=== PATIENT | male | born 1955 | race Caucasian/White ===

== ENCOUNTER → 2016-08-11 | Outpatient (CLI) | payer OTHER ==
[~2016-08-11] MED LIST: ACCU; AMLO-114 PO; ATEN50TA8 PO; Aspirin PO; CALC1CAP36 PO; DOCU-94 PO; ESCI10TA17 PO; FRRS300 PO; FURO40TA3 PO; HMLI7525 SC; HYDR-4717 PO; HYDR100T12 PO; INSDGI SC; INSDGIPEN SC; INSU100I2 SC; INSU1MIS SC; LCTXP PO; LISI40TA PO; LVQ250 PO; METO1TAB31 PO; METR500T PO; MRLP17X PO; NIVO1INJ IV; NVLGIPEN SC; OXYC-164 PO; OXYC-57 PO; PRD20 PO; PRD50 PO; PRED-301 PO; SENN-65 PO; SIMV20TA2 PO; SODI650T8 PO; SUNI37.5 PO; TERA5CAP PO; TPRSR/100 PO; TYLENOL PO; test strips EXT
[2016-08-11 14:38] LABS: ESTIMATED AVERAGE GLUCOSE 128 mg/dl; HA1C FLAG Normal (Normal)
== END | disposition home or self-care (01) ==
LOC: C.LAB1850 13:14
PROVIDERS: ATTEND Internal Medicine Endocrinology, Diabetes & Metabolism
DX: E11.9 Type 2 diabetes mellitus without complications (principal)

== ENCOUNTER → 2016-08-29 | Outpatient (CLI) | payer OTHER ==
--- NOTE | 2016-08-29 17:55 | ECHOCARDIOGRAM REPORT ---
*NOTICE TO RECEIVING REPUBLICAN AGENCY This information is strictly Confidential and protected under [place] law. [place] law prohibits you from making any further disclosure of this information unless further disclosure is expressly permitted by the written consent of the person to whom it pertains or is authorized by law. A general authorization for the release of medical or other information is not sufficient for this purpose. Hospital accepts no responsibility if the information is made available to any other person, INCLUDING THE PATIENT. Interpretation Summary * Name: CHANO ANDERSON Study Date: 08/29/2016 02:44 PM BP: 164/100 mmHg * Patient Location: [facility] HR: 56 * : 1955 (M/d/yyyy) Gender: Male Height: 70 in * Age: 60 yrs Ethnicity: [place] Weight: 173 lb * Ordering Physician: Hunter Dao * Referring Physician: Hunter Dao PAngel Hensley * Performed By: Giselle Gamez RDCS * * Reason For Study: Neoplasm * BSA: 2.0 m2 * Normal biventricular systolic function. * Mild concentric left ventricular hypertrophy. * Normal chamber dimensions. * Trace mitral and tricuspid regurgitation. * -- Conclusions -- * Aortic valve sclerosis mild, without significant aortic valvular stenosis. Procedure Details * A complete two-dimensional transthoracic echocardiogram was performed (2D, M-mode, Doppler and color flow Doppler). Left Ventricle * The left ventricle is normal in size. * There is mild concentric left ventricular hypertrophy. * Ejection Fraction = 60-65%. * Left ventricular systolic function is normal. * The left ventricular wall motion is normal. Right Ventricle * The right ventricle is normal in size and function. Atria * The left atrial size is normal. * Right atrial size is normal. * No ASD detected; PFO is not assessed. Mitral Valve * The mitral valve is normal. * There is no mitral valve stenosis. * There is trace mitral regurgitation. Tricuspid Valve * The tricuspid valve is normal. * There is no tricuspid stenosis. * There is trace tricuspid regurgitation. Aortic Valve * The aortic valve is trileaflet. * The aortic valve opens well. * Aortic valve sclerosis mild, without significant aortic valvular stenosis. * No aortic regurgitation is present. Pulmonic Valve * The pulmonic valve is not well seen, but is grossly normal. * There is no pulmonic valvular stenosis. * There is no pulmonic valvular regurgitation. Great Vessels * The aortic root is normal size. * The aortic root and proximal ascending aorta are normal sized. Pericardium/Pleural * There is no pericardial effusion. Great Vessels * Normal inferior vena cava diameter and respiratory variation suggests normal central venous pressure. MMode 2D Measurements and Calculations IVSd 1.3 cm IVSs 1.4 cm LVIDd 4.6 cm LVIDs 3.1 cm LVPWd 1.3 cm LVPWs 0.87 cm IVS/LVPW 0.98 FS 32.4 % EDV(Teich) 95.5 ml ESV(Teich) 37.4 ml EF(Teich) 60.8 % EDV(cubed) 95.0 ml ESV(cubed) 29.3 ml EF(cubed) 69.1 % % IVS thick 10.8 % % LVPW thick -33.54 % LV mass(C)d 228.0 grams LV mass(C)dI 116.2 grams/m\S\2 LV mass(C)s 106.3 grams LV mass(C)sI 54.1 grams/m\S\2 SV(Teich) 58.1 ml SI(Teich) 29.6 ml/m\S\2 SV(cubed) 65.7 ml SI(cubed) 33.5 ml/m\S\2 Ao root diam 2.6 cm Ao root area 5.4 cm\S\2 ACS 2.0 cm LA dimension 3.1 cm LA/Ao 1.2 LVAd ap4 29.7 cm\S\2 LVLd ap4 8.5 cm EDV(MOD-sp4) 85.2 ml EDV(sp4-el) 88.4 ml LVAs ap4 15.9 cm\S\2 LVLs ap4 7.1 cm ESV(MOD-sp4) 29.5 ml ESV(sp4-el) 30.3 ml EF(MOD-sp4) 65.4 % EF(sp4-el) 65.8 % LVAd ap2 29.5 cm\S\2 LVLd ap2 8.6 cm EDV(MOD-sp2) 87.5 ml EDV(sp2-el) 85.6 ml LVAs ap2 17.7 cm\S\2 LVLs ap2 7.1 cm ESV(MOD-sp2) 39.9 ml ESV(sp2-el) 37.7 ml EF(MOD-sp2) 54.5 % EF(sp2-el) 55.9 % LVLd %diff 2.1 % EDV(MOD-bp) 86.7 ml LVLs %diff -0.77 % ESV(MOD-bp) 34.2 ml EF(MOD-bp) 60.6 % SV(MOD-sp4) 55.7 ml SI(MOD-sp4) 28.4 ml/m\S\2 SV(MOD-sp2) 47.7 ml SI(MOD-sp2) 24.3 ml/m\S\2 SV(MOD-bp) 52.5 ml SI(MOD-bp) 26.8 ml/m\S\2 SV(sp4-el) 58.2 ml SI(sp4-el) 29.6 ml/m\S\2 SV(sp2-el) 47.9 ml SI(sp2-el) 24.4 ml/m\S\2 Doppler Measurements and Calculations MV E max rafael 84.4 cm/sec MV A max rafael 72.3 cm/sec MV E/A 1.2 MV dec time 0.37 sec Ao V2 max 164.2 cm/sec Ao max PG 10.8 mmHg Ao max PG (full) 6.2 mmHg LV V1 max PG 4.6 mmHg LV V1 max 107.2 cm/sec PA V2 max 126.0 cm/sec PA max PG 6.4 mmHg
== END | disposition home or self-care (01) ==
LOC: C.CPL 14:34
PROVIDERS: ATTEND Internal Medicine Hematology & Oncology
DX: C64.2 Malignant neoplasm of left kidney, except renal pelvis (principal)

== ENCOUNTER → 2016-08-31 | Outpatient (CLI) | payer OTHER ==
--- NOTE | 2016-08-31 12:40 | DIAGNOSTIC IMAGING REPORT ---
CT SCAN OF THE CHEST WITHOUT IV CONTRAST CLINICAL HISTORY: Renal cell carcinoma. COMPARISON STUDY: PET/CT dated 10/26/2015. CT scan of the chest dated 04/18/2016 and 09/09/2015. TECHNIQUE: CT scan of the chest was performed from the thoracic inlet to the upper abdomen. Images are reviewed in the axial, sagittal, and coronal planes. IV contrast was not administered as per the referring clinician. Note that the examination is suboptimal without IV contrast. Automated dose control exposure was utilized. CT DOSE: 1335.50 mGycm FINDINGS: Thyroid: Imaged portions of the thyroid gland are normal in size and attenuation. Thoracic aorta: There is mild atherosclerotic calcification of the thoracic aorta, which is normal in caliber. The aortic arch demonstrates 4-vessel variant anatomy. Heart: The heart is normal in size and configuration, and without pericardial effusion. The pulmonary trunk is normal in caliber. Lungs and pleural spaces: There are mild emphysematous changes. There are small right and trace left pleural effusions. These have minimally increased from 04/18/2016. There are scattered tiny calcified granulomas. No concerning pulmonary lesion is seen. There is no airspace consolidation to indicate pneumonia. Minimal scarring is noted at the right lung base. The trachea and central airways appear clear. Mediastinum: There is no mediastinal lymphadenopathy. Radha: Not well assessed without IV contrast. Axillae: There is no axillary lymphadenopathy. Upper abdomen: There is a small hiatal hernia. The left kidney is surgically absent. A 2.7 cm exophytic cyst arises from the right upper pole. See report of abdominal CT performed concurrently for detailed intra-abdominal findings. Bony thorax: No definite lytic or blastic lesions are identified. A 7 mm benign-appearing lucency in the right anterior 6th rib seen on image #190 is unchanged back to 08/1715 and is of indeterminant but doubtful significance. IMPRESSION: 1. There is no evidence of intrathoracic metastatic disease. 2. Mild emphysema. 3. Small right and trace left pleural effusions. These have minimally increased in size from 04/18/2016. 3. No airspace consolidation is identified typical for pneumonia. 4. Additional findings as above. Electronically signed by: Dieter Jensen M.D. 08/31/2016 12:39 PM Dictated Date/Time: 08/31/2016 12:31 PM
--- NOTE | 2016-09-01 07:35 | DIAGNOSTIC IMAGING REPORT ---
CT OF THE ABDOMEN AND PELVIS WITH ORAL CONTRAST CLINICAL HISTORY: Renal cell carcinoma. TECHNIQUE: Axial images of the abdomen and pelvis were obtained without IV contrast. Oral contrast was administered. COMPARISON STUDY: CT of the abdomen and pelvis April 18, 2016 and PET/CT May 02, 2016. FINDINGS: The chest CT will be reported separately. Evaluation of the abdomen and pelvis is suboptimal on this unenhanced exam. Unenhanced images of liver, spleen, right adrenal gland and pancreas are unremarkable. The left kidney is surgically absent. A few retrocrural nodules are noted. These include a 1.4 cm right retrocrural nodule located at the level of the right adrenal gland shown on image 30. This is similar to PET/CT of May 02, 2016. A 1 cm left retrocrural lymph node located superiorly is noted. This is either stable or slightly diminished since prior exam. A 1 cm left para-aortic nodule shown image 39 is similar to prior study. An aortocaval lymph node measuring 1 cm shown image 40 has slightly increased in size. Multiple right renal lesions are again noted. These are suboptimally assessed on this unenhanced exam. A 4 cm intermediate attenuation lesion within the mid to lower pole of the right kidney remains indeterminate. There is right perinephric infiltration. There is left colon diverticulosis without evidence for acute diverticulitis. No suspicious osseous lesions are present with there is no evidence for a bowel obstruction. IMPRESSION: 1. Slight increase in size of a small aortocaval lymph node which is suggestive of kimmie spread of disease. 2. Redemonstration of several retrocrural metastases. These are either stable or slightly decreased in size since prior exam of April 18, 2016. 3. No change in the 4 cm right renal lesion which remains indeterminate and may reflect a renal cell carcinoma. Electronically signed by: Lei Gan M.D. 09/01/2016 7:34 AM Dictated Date/Time: 08/31/2016 1:26 PM
== END | disposition home or self-care (01) ==
LOC: C.CTS 10:58
PROVIDERS: ATTEND Internal Medicine Hematology & Oncology
DX: C64.2 Malignant neoplasm of left kidney, except renal pelvis (principal); N28.9 Disorder of kidney and ureter, unspecified

== ENCOUNTER → 2016-09-14 | Outpatient (CLI) | payer OTHER ==
[2016-09-14 15:33] LABS: BLOOD UREA NITROGEN 34 mg/dl (7-18); CALCIUM 8.6 mg/dl (8.5-10.1); CARBON DIOXIDE 29 mmol/L (21-32); CHLORIDE 103 mmol/L (98-107); GLUCOSE 96 mg/dl (70-99); PHOSPHORUS 3.1 mg/dl (2.5-4.9); POTASSIUM 3.5 mmol/L (3.5-5.1); SODIUM 141 mmol/L (136-145)
== END | disposition home or self-care (01) ==
LOC: C.LAB 16:32
PROVIDERS: ATTEND Internal Medicine Nephrology
DX: N18.3 Chronic kidney disease, stage 3 (moderate) (principal); C64.2 Malignant neoplasm of left kidney, except renal pelvis

== ENCOUNTER → 2016-09-22 | Outpatient (CLI) | payer OTHER ==
[2016-09-22 08:47] LABS: PATIENT HEIGHT 177.8 cm
== END | disposition home or self-care (01) ==
LOC: C.LAB 09-21 17:43
PROVIDERS: ATTEND Internal Medicine Nephrology
DX: R80.9 Proteinuria, unspecified (principal)

== ENCOUNTER 2016-10-27 10:05 | Inpatient (IN) | payer OTHER ==
[~2016-10-27] VITALS: Ht 177.8 cm; Wt 81.0 kg
[~2016-10-27 10:05] MED LIST changes: -ACCU; -CALC1CAP36 PO; -ESCI10TA17 PO; -FRRS300 PO; -FURO40TA3 PO; -HYDR-4717 PO; -HYDR100T12 PO; -INSDGIPEN SC; -INSU100I2 SC; -INSU1MIS SC; -LCTXP PO; -LISI40TA PO; -LVQ250 PO; -METO1TAB31 PO; -METR500T PO; -MRLP17X PO; -NIVO1INJ IV; -NVLGIPEN SC; -OXYC-164 PO; -OXYC-57 PO; -PRD20 PO; -PRD50 PO; -PRED-301 PO; -SENN-65 PO; -SODI650T8 PO; -SUNI37.5 PO; -TPRSR/100 PO; -test strips EXT
--- NOTE | 2016-10-27 11:34 | DIAGNOSTIC IMAGING REPORT ---
CHEST 2 VIEWS ROUTINE CLINICAL HISTORY: Shortness of breath. COMPARISON STUDY: Chest CT August 2016. FINDINGS: Lung volumes are normal. Linear right lower lung opacity favors atelectasis. There is no evidence of pulmonary edema. Cardiac size is normal. Mediastinal contours are normal. IMPRESSION: 1. No acute cardiopulmonary findings. 2. Linear right lower lobe opacity which favors atelectasis. Electronically signed by: Lei Gan M.D. 10/27/2016 11:32 AM Dictated Date/Time: 10/27/2016 11:28 AM
[2016-10-27 11:42] LABS: BASO % 0.2 %; BASO ABS # 0.01 K/uL (0-0.2); COMPLETE YES; EOS % 2.5 %; HEMATOCRIT 31.5 % (42-52); IG% 0.2 %; LYMPH % 28.1 %; LYMPH ABS # 1.24 K/uL (1.2-3.4); MEAN CELL VOLUME 92.1 fL (80-100); MEAN CORPUSCULAR HGB CONC 33.7 g/dl (32-36); MEAN PLATELET VOLUME 10.2 fL (7.4-10.4); MONO % 11.8 %; NEUT % 57.2 %; PLATELET COUNT 145 K/uL (130-400); RED BLOOD COUNT 3.42 M/uL (4.7-6.1); WHITE BLOOD COUNT 4.42 K/uL (4.8-10.8)
[2016-10-27 11:42] LABS: POINT OF CARE PRO-BNP 373 pg/ml (0-900)
[2016-10-27 11:56] LABS: INR 0.9 (0.9-1.1); PARTIAL THROMBOPLASTIN RATIO 0.9; PROTHROMBIN TIME (PATIENT) 10.1 SECONDS (9.0-12.0)
[2016-10-27 11:57] LABS: ALT/SGPT 16 U/L (12-78); BLOOD UREA NITROGEN 41 mg/dl (7-18); BUN/CREATININE RATIO 13.3 (10-20); CALCIUM 8.5 mg/dl (8.5-10.1); CARBON DIOXIDE 28 mmol/L (21-32); CHLORIDE 107 mmol/L (98-107); GLUCOSE 171 mg/dl (70-99); POTASSIUM 3.4 mmol/L (3.5-5.1); SODIUM 143 mmol/L (136-145)
[2016-10-27 12:00] LABS: ALKALINE PHOSPHATASE 65 U/L (45-117); AST/SGOT 15 U/L (15-37)
[2016-10-27] MEDS ORDERED: INSU100I2 SC (12:33)
[2016-10-27] MEDS ORDERED: FURO40TA3 PO (12:33)
[2016-10-27] MEDS ORDERED: ESCI10TA17 PO (12:33)
[2016-10-27] MEDS ORDERED: LISI40TA PO (12:33)
[2016-10-27] MEDS ORDERED: HYDR-4717 PO (12:33)
[2016-10-27] MEDS ORDERED: SUNI37.5 PO (13:05)
--- NOTE | 2016-10-27 14:27 | DIAGNOSTIC IMAGING REPORT ---
BILATERAL LOWER EXTREMITY VENOUS DOPPLER CLINICAL HISTORY: Shortness of breath. Lower extremity swelling. COMPARISON STUDY: No previous studies for comparison. TECHNIQUE: Sonography of the deep venous system of the bilateral lower extremities was performed. Compression and augmentation were evaluated. FINDINGS: The bilateral common femoral, superficial femoral and popliteal veins were compressible. Augmentation was normal. Flow was shown within the deep calf vessels. IMPRESSION: No evidence of deep venous thrombus within the bilateral lower extremities. Electronically signed by: Lei Gan M.D. 10/27/2016 2:24 PM Dictated Date/Time: 10/27/2016 2:24 PM
--- NOTE | 2016-10-27 15:18 | EMERGENCY ROOM VISIT NOTE ---
History Report prepared by Aissatou: Marianna Nieto Under the Supervision of: Dr. Greyson Murphy M.D. First contact with patient: 10:41 Chief Complaint: SHORTNESS OF BREATH Stated Complaint: SOB, SUDDEN WEIGHT GAIN, LOW BP Nursing Triage Summary: Pt currently on chemo, states he has one kidney and it's only "20-30%." Patient believes he is starting to feel up with fluid. History of Present Illness The patient is a 60 year old male who presents to the Emergency Room with complaints of shortness of breath. The patient states she's been short of breath since over a year ago when he was diagnosed with renal cell carcinoma. He says [place] worse over the past 2 days and he called his doctor and was instructed to come to the emergency department. He denies any current chest pain but states that he has had some chest pain intermittently for the past several months. The last time he had it was about a week ago. He describes it as a pain on the left side but otherwise cannot give any further descriptors. He did have an echocardiogram and EKG in August because of his chest pain. He has noticed that he has gained about 7 pounds over the past 5 days. He states that he gets swelling to the abdomen and face and a little bit in the legs. About a month ago his Lasix was doubled by his physician. He does state that he has only one functioning kidney. He denies any fever, cough or recent illness. He does complain of chronic abdominal pain since he started chemotherapy and has been diagnosed with possible pancreatitis as his lipase has been elevated in the past. He denies any history of LA or CHF. Source of History: patient Onset: over a year ago, worse past 2 days Position: other (global) Quality: other (shortness of breath) Timing: worsening Associated Symptoms: + abdominal pain (chronic), + chest pain (intermittent , most recently a week ago), No cough, No fevers Note: Other symptoms: swelling to face and abdomen, weight gain Review of Systems I did review 10 or more systems which are negative unless otherwise indicated on the chart or HPI. Past Medical & Surgical Medical Problems: (1) Renal mass, left Family History No pertinent family history stated. Social History Smoking Status: Never Smoker Current/Historical Medications Scheduled Amlodipine (Norvasc), 10 MG PO DAILY Atenolol (Tenormin), 50 MG PO DAILY Docusate Sodium (Colace), 1 CAP PO BID Escitalopram (Lexapro), 10 MG PO DAILY Furosemide (Lasix), 40 MG PO BID Hydralazine Hcl (Apresoline), 50 MG PO TID Insulin Glargine (Lantus), 15 SC QPM Insulin Lispro (Human) (Humalog Kwikpen), 10-20 SC AFTER DINNER Lisinopril (Prinivil), 40 MG PO QAM Simvastatin (Zocor), 20 MG PO QPM Sunitinib Malate (Sutent), 1 CAP PO DAILY Terazosin (Hytrin), 5 MG PO HS [Aspirin], 81 MG PO DAILY Scheduled PRN [Tylenol #4], 1 TAB PO q4-6 hours PRN for Pain Allergies Coded Allergies: Iodinated Diagnostic Agents (Verified Allergy, Unknown, oil based, severe headaches, 10/27/16) EVENT OCCURED IN 1971, PT STATES HE HAS HAD 3 DIFFERENT WATER BASED IVP DYES WITH NO ISSUE Physical Exam Vital Signs Date Time Temp Pulse Resp B/P Pulse Ox O2 Delivery O2 Flow Rate FiO2 10/27/16 12:44 62 16 131/66 96 Room Air 10/27/16 10:30 63 10/27/16 10:09 36.8 72 20 120/64 97 Room Air Physical Exam Constitutional: Vital signs reviewed. Eyes: Pupils are equal round reactive to light. Conjunctiva are noninjected. ENT: Pharynx is clear without erythema or exudate. Mucous membranes are moist. Neck supple without meningeal signs. Respiratory: Clear to auscultation bilaterally. Breath sounds are equal bilaterally. No rales. Cardiovascular: Regular rate and rhythm. No rubs or gallops. GI: Soft, nondistended and nontender. Bowel sounds are present. Musculoskeletal: Minimal ankle edema. No lower extremity tenderness. Integumentary: No cyanosis. Neurological: The patient is awake and alert. No focal deficits. Psychiatric: Normal affect. Medical Decision & Procedures ER Provider Diagnostic Interpretation: Radiology results as stated below per my review and the radiologist's interpretation: CHEST 2 VIEWS ROUTINE CLINICAL HISTORY: Shortness of breath. COMPARISON STUDY: Chest CT August 2016. FINDINGS: Lung volumes are normal. Linear right lower lung opacity favors atelectasis. There is no evidence of pulmonary edema. Cardiac size is normal. Mediastinal contours are normal. IMPRESSION: 1. No acute cardiopulmonary findings. 2. Linear right lower lobe opacity which favors atelectasis. Electronically signed by: Lei Gan M.D. 10/27/2016 11:32 AM Dictated Date/Time: 10/27/2016 11:28 AM BILATERAL LOWER EXTREMITY VENOUS DOPPLER CLINICAL HISTORY: Shortness of breath. Lower extremity swelling. COMPARISON STUDY: No previous studies for comparison. TECHNIQUE: Sonography of the deep venous system of the bilateral lower extremities was performed. Compression and augmentation were evaluated. FINDINGS: The bilateral common femoral, superficial femoral and popliteal veins were compressible. Augmentation was normal. Flow was shown within the deep calf vessels. IMPRESSION: No evidence of deep venous thrombus within the bilateral lower extremities. Electronically signed by: Lei Gan M.D. 10/27/2016 2:24 PM Dictated Date/Time: 10/27/2016 2:24 PM Laboratory Results 10/27/16 11:10 Red Blood Count 3.42, Mean Corpuscular Volume 92.1, Mean Corpuscular Hemoglobin 31.0, Mean Corpuscular Hemoglobin Concent 33.7, Mean Platelet Volume 10.2, Neutrophils (%) (Auto) 57.2, Lymphocytes (%) (Auto) 28.1, Monocytes (%) (Auto) 11.8, Eosinophils (%) (Auto) 2.5, Basophils (%) (Auto) 0.2, Neutrophils # (Auto ) 2.53, Lymphocytes # (Auto) 1.24, Monocytes # (Auto) 0.52, Eosinophils # (Auto ) 0.11, Basophils # (Auto) 0.01 10/27/16 11:10 Test 10/27/16 11:10 10/27/16 11:18 White Blood Count 4.42 K/uL (4.8-10.8) Red Blood Count 3.42 M/uL (4.7-6.1) Hemoglobin 10.6 g/dL (14.0-18.0) Hematocrit 31.5 % (42-52) Mean Corpuscular Volume 92.1 fL (80-100) Mean Corpuscular Hemoglobin 31.0 pg (25-34) Mean Corpuscular Hemoglobin Concent 33.7 g/dl (32-36) Platelet Count 145 K/uL (130-400) Mean Platelet Volume 10.2 fL (7.4-10.4) Neutrophils (%) (Auto) 57.2 % Lymphocytes (%) (Auto) 28.1 % Monocytes (%) (Auto) 11.8 % Eosinophils (%) (Auto) 2.5 % Basophils (%) (Auto) 0.2 % Neutrophils # (Auto) 2.53 K/uL (1.4-6.5) Lymphocytes # (Auto) 1.24 K/uL (1.2-3.4) Monocytes # (Auto) 0.52 K/uL (0.11-0.59) Eosinophils # (Auto) 0.11 K/uL (0-0.5) Basophils # (Auto) 0.01 K/uL (0-0.2) RDW Standard Deviation 50.9 fL (36.4-46.3) RDW Coefficient of Variation 15.0 % (11.5-14.5) Immature Granulocyte % (Auto) 0.2 % Immature Granulocyte # (Auto) 0.01 K/uL (0.00-0.02) Prothrombin Time 10.1 SECONDS (9.0-12.0) Prothromb Time International Ratio 0.9 (0.9-1.1) Activated Partial Thromboplast Time 24.6 SECONDS (21.0-31.0) Partial Thromboplastin Ratio 0.9 Anion Gap 8.0 mmol/L (3-11) Est Creatinine Clear Calc Drug Dose 25.5 ml/min Estimated GFR () 23.7 Estimated GFR (Non- 20.5 BUN/Creatinine Ratio 13.3 (10-20) Calcium Level 8.5 mg/dl (8.5-10.1) Total Bilirubin 0.3 mg/dl (0.2-1) Direct Bilirubin < 0.1 mg/dl (0-0.2) Aspartate Amino Transf (AST/SGOT) 15 U/L (15-37) Alanine Aminotransferase (ALT/SGPT) 16 U/L (12-78) Alkaline Phosphatase 65 U/L (45-117) Total Protein 5.9 gm/dl (6.4-8.2) Albumin 3.0 gm/dl (3.4-5.0) Lipase 169 U/L (73-393) Bedside D-Dimer > 450 ng/mlFEU (0-450) Bedside Troponin I 0.000 ng/ml (0-0.045) GH-Dlw-Q-Type Natriuretic Peptide 373 pg/ml (0-900) Laboratory results as reviewed by me. ECG Indication: chest pain, SOB/dyspnea Rate (beats per minute): 67 Rhythm: normal sinus Findings: PVC, T-wave inversion (Lateral) ED Course 1045: The patient was evaluated in room B8. A complete history and physical exam was performed. 1241: I reassessed the patient and discussed test results with him. 1243: I attempted to talk to Dr. Dao and Dr. Douglas of Hematology/ Oncology, but neither are available. 1313: I discussed the case with Dr. Dao - Hematology/Oncology. He said that the weight gain is probably from the proteinuria. He was on Sutent but is off of it now. Dr. Dao said that the patient has never told him that he was short of breath. 1449: I discussed the case with Dr. Vikram Clifton Hospitalist. The patient will be evaluated for further management. 1505: I discussed test results with the patient and the need for hospitalization. He was in agreement. Medical Decision This is a 60-year-old male who presents with multiple complaints including shortness of breath and weight gain. Differential diagnosis includes CHF, pleural effusion, pneumonia, nephrotic syndrome, pulmonary embolism. I did perform a limited focused review of portions of the patient's old chart on the electronic medical record. The patient had an echocardiogram in August which showed normal left ventricular and right ventricular function with an EF of 60. He also had CTs of the chest and abdomen which demonstrated metastatic renal cell carcinoma. I did evaluate the patient as noted above. IV access was established. The patient was placed on a continuous director of cardiology service line. I did order and personally review the patient's 12-lead EKG and chest x-ray as described above. He does have some T-wave inversions on his 12-lead EKG. No prior EKGs available for comparison. He denies any current chest discomfort. There is no evidence of pneumonia. I did order and review the patient's blood work as noted in the electronic medical record. Troponin is negative. D-dimer is elevated. His creatinine is 3 which is his baseline. I did order a normal ultrasound of the legs to rule out DVT. I did review the images myself as well as the radiology report as described above. There is no evidence of DVT. I did discuss case with his oncologist. I did discuss the test results with the patient. I did recommend hospitalization for further workup of his symptoms including V/Q scanning as he has a prior history of pulmonary embolism. He has a elevated creatinine and so we could not do a CT scan of his chest. I did discuss the case with the hospitalist and nurse case manager. Consults Time Called: [phone] Consulting Physician: Dr. Dao - Hematology/Oncology Returned Call: [phone] I discussed the case with him. He said that the weight gain is probably from the proteinuria. He was on Sutent but is off of it now. Dr. Dao said that the patient has never told him that he was short of breath. Additional Consults: Time Called: [phone] Consulted Physician: Dr. Vikram Clifton Hospitalist Returned Call: [phone] Additional Comments: I discussed the case with her. The patient will be evaluated for further management. Impression Primary Impression: Acute dyspnea Additional Impressions: Chronic kidney disease Renal cell carcinoma Scribe Attestation The scribe's documentation has been prepared under my direct and personally reviewed by me in its entirety. I confirm that the note above accurately reflects all work, treatment, procedures, and medical decision making performed by me. Departure Information Dispostion Being Evaluated By Hospitalist Referrals Salvador Muller M.D. (PCP) Patient Instructions My [facility] Problem Qualifiers Additional Impressions: Chronic kidney disease Chronic kidney disease stage: unspecified stage Qualified Codes: N18.9 - Chronic kidney disease, unspecified Renal cell carcinoma Laterality: unspecified laterality Qualified Codes: C64.9 - Malignant neoplasm of unspecified kidney, except renal pelvis
[2016-10-27 15:59] VITALS: Ht 177.8 cm; Wt 81.0 kg
[2016-10-27] MEDS ORDERED: POTASSIUM CHLORIDE 10 MEQ TABCR PO STA (16:16)
[2016-10-27] MEDS ORDERED: ACETAMINOPHEN 325 MG TAB PO PRN (16:30)
[2016-10-27] MEDS ORDERED: DEXTROSE 50% 50 ML SYR IV PRN (16:30)
[2016-10-27] MEDS ORDERED: NITROGLYCERIN 0.4 MG SL PER TAB CHARGE SL PRN (16:30)
[2016-10-27] MEDS ORDERED: GLUCOSE 40% GEL 15 GM TUBE PO PRN (16:30)
[2016-10-27] MEDS ORDERED: GLUCAGON FOR INJ 1 MG VIAL SQ PRN (16:30)
[2016-10-27] MEDS ORDERED: GLUCOSE 10 TABS/TUBE PO PRN (16:30)
[2016-10-27] MEDS ORDERED: MoRPHine SULFATE 2 MG/ML CARP IV PRN (16:30)
[2016-10-27] MEDS ORDERED: ENOXAPARIN 1 MG/KG SQ SCH (16:30)
[2016-10-27] MEDS ORDERED: ONDANSETRON INJ 2 MG/ML 2 ML VIAL IV PRN (16:30)
[2016-10-27 17:14] VITALS: O2SAT 97
--- NOTE | 2016-10-27 17:33 | HISTORY & PHYSICAL EXAMINATION ---
DATE OF ADMISSION: 10/27/2016 ADMISSION HISTORY AND PHYSICAL CHIEF COMPLAINT: Shortness of breath. ADMITTING DIAGNOSIS: Possible pulmonary embolism. HISTORY OF PRESENT ILLNESS: Mr. Christy is a 60-year-old male who is currently being treated for metastatic renal cell carcinoma. His metastases have been continued with 3 lymph nodes and his abdomen has been kept at bay by a chemotherapeutic regimen by Dr. Dao of [facility]. The patient has had persistent shortness of breath for about 1 year since he was initially diagnosed with renal cell carcinoma, over that time he has had a most recent echocardiogram in August 2016, which was unremarkable. Over the last 2 days, the patient has had escalations of his shortness of breath where he was unable to perform activities of daily living at home without stopping to rest. The patient states that most recently has had this chemotherapy reduced because of concerns of side effects such as pancreatitis. The patient also feels he may be e getting some swelling in his face and abdomen which is usually a concern as he does only have one kidney and has chronic kidney disease. The patient states that his Lasix was doubled by Dr. Norwood. He does suffer from chronic proteinuria because of this chemotherapeutic regimen and his serum protein may reduce pressure causing peripheral swelling. He is currently resting comfortably. CT scan is precluded because of a creatinine being 3.1. The patient denies any recent concurrent chest pain, any recent upper respiratory infections. He has had no cough productive of any sputum. His body weight is gone up slightly. He feels he has gone up about 7 pounds in the last week. He is slated to have a VQ scan this evening. PAST MEDICAL HISTORY: For renal cell carcinoma; diabetes, on insulin; previous DVT and BPH. MEDICATIONS: Amlodipine 10 a day, atenolol 50 a day, Colace 1 tablet b.i.d., Lexapro 10 a day, Lasix now 40 b.i.d., hydralazine 50 t.i.d., Lantus insulin 15 at bedtime. He follows an insulin sliding scale with a carbo ratio of 1:7 this typically equates to 10-20 units with meals, lisinopril 40 a day, Zocor 20 a day, sutent 1 capsule daily, terazosin 5 a day, and aspirin 81 a day. SOCIAL HISTORY: Does not smoke or drink. He did have some exposure to secondhand smoke with his mother and his . FAMILY HISTORY: Positive for COPD and diabetes. REVIEW OF SYSTEMS: Ten systems are reviewed and are negative unless listed above. PHYSICAL EXAMINATION: VITAL SIGNS: Temperature 36.8, respiration rate is 19, heart rate 66, BP is 167/87, O2 sats 96% on room air. HEENT: PERRL, EOMI. Oropharynx clear. NECK: Without lymphadenopathy. Trachea is midline. HEART: Regular without murmurs. LUNGS: Clear without wheezes or crackles. SPINE: Nontender. He has got some mild left CVA angle tenderness. ABDOMEN: Normoactive bowel sounds, soft. He has got some minor left lower quadrant tenderness. EXTREMITIES: Without cyanosis, clubbing or edema. The face does not appear edematous plethoric or reddened. NEUROLOGICAL: He is awake, alert and appropriate. Cranial nerves II-XII are intact. Equal symmetrical strength and sensation in upper and lower extremities. SKIN: Without lesions, growths, bruises or bleeding. LABORATORY AND IMAGING DATA: He has a white count of 4.4, platelet count 145. BUN and creatinine are 41 and 3.1, glucose is 171. D-dimer is elevated to 450. Ultrasound of his legs were negative. Chest x-ray is negative, I reviewed this myself. EKG shows sinus rhythm without any acute ST or T-wave changes, some PVCs captured. Pending studies include a VQ scan. ASSESSMENT: A 60-year-old male here with metastatic renal cell carcinoma and previous thrombophilia with deep vein thrombosis. PLAN: Because the patient's increased risk of clot, we will institute Lovenox renal dosing at 1 mg/kg q. 72 hours. Will perform a VQ scan this evening. If this VQ scan is indeterminate, we may need to pursue a CT scan cautiously with renal oversight with his creatinine being such as renal cell does metastasize to the lungs then might be worthwhile to get a CT scan. We may also consider doing a noncontrast CT scan of the lungs. Regarding his diabetic care, will maintain his Lantus and sliding scale with a diabetic diet. Regarding his hypertension, will maintain amlodipine, Lasix b.i.d., atenolol 50 a day and Hytrin which is also used for BPH. Zestril 40 also. Because of his facial swelling, concern could be for vena caval clot. We will pursue an ultrasound of the inferior vena cava and an echocardiogram. Also the echocardiogram may tell if he is developing any cardiomyopathy from his medications. DVT prevention is Lovenox full dose therapy. Will continue the sutent with consult Dr. Dao for a possible further advice. If need be, Dr. Norwood is a counseling services director. He is scheduled to have a 24-hour urine protein test done in the future. MTDD
[2016-10-27] MEDS ORDERED: ENOXAPARIN 100 MG/1ML SYR SQ SCH (18:00)
--- NOTE | 2016-10-27 18:17 | DIAGNOSTIC IMAGING REPORT ---
NUCLEAR MEDICINE LUNG PERFUSION STUDY CLINICAL HISTORY: Shortness of breath. Hypertension. COMPARISON STUDY: Chest x-ray dated 10/27/2016 FINDINGS: The patient was ventilated with 33 mCi of technetium 99m DTPA aerosol. The patient was perfused utilizing 6.2 mCi of technetium 99m MAA. Due to a computer malfunction, the ventilation data was lost. This examination is interpreted as a perfusion only study. There is a very small perfusion defect visualized on the RPO image, likely corresponding to an area of right basilar atelectasis. No moderate or large perfusion defects are visualized. This examination is characterized as low probability for pulmonary embolism(less than 10% risk). If there is a strong clinical suspicion of the presence of pulmonary embolism, CT angiography of the chest should be considered in follow-up IMPRESSION: Perfusion only study due to a technical malfunction. Low probability of acute pulmonary embolism Electronically signed by: Isael Aaron M.D. 10/27/2016 6:15 PM Dictated Date/Time: 10/27/2016 6:11 PM
[2016-10-27 18:45] VITALS: BP 165/77; PULSE 71; TEMP 36.9; O2SAT 96
--- NOTE | 2016-10-27 18:53 | DIAGNOSTIC IMAGING REPORT ---
INFERIOR VENA CAVA ULTRASOUND CLINICAL HISTORY: Shortness of breath. Possible IVC thrombus. Renal cell carcinoma. COMPARISON STUDY: CT scan of the abdomen and pelvis dated August 31, 2016 FINDINGS: The IVC and iliac veins appeared patent as visualized. There are portions of the mid IVC and proximal iliac veins which were not visualized due to overlying bowel gas shadowing. IMPRESSION: No IVC or iliac vein thrombus was visualized Electronically signed by: Isael Aaron M.D. 10/27/2016 6:50 PM Dictated Date/Time: 10/27/2016 6:49 PM
[2016-10-27] MEDS: FUROSEMIDE 40 MG TAB PO SCH (19:52)
[2016-10-27 20:45] LABS: URINE APPEARANCE CLEAR (CLEAR); URINE BILIRUBIN NEG (NEG); URINE COLOR YELLOW; URINE EPITHELIAL CELL AUTO 0-5 /lpf (0-5); URINE NITRITE NEG (NEG); URINE SPECIFIC GRAVITY 1.013 (1.000-1.030); UROBILINOGEN NEG (NEG)
[2016-10-27] MEDS: AMLODIPINE BESYLATE 5 MG TAB PO SCH (20:45)
[2016-10-27] MEDS: SIMVASTATIN 20 MG TAB PO SCH (20:46)
[2016-10-27 20:47] LABS: MANUAL MICROSCOPIC REQUIRED? NO; REVIEW REQ? NO
[2016-10-27] MEDS: INSULIN GLARGINE SOLOSTAR 100 UNITS/ML 3 ML PEN SC SCH (20:47)
[2016-10-27] MEDS: INSULIN ASPART 100 UNITS/ML 3 ML PEN SC SCH (20:48)
[2016-10-27] MEDS: DOCUSATE SODIUM 100 MG CAP PO SCH (20:50)
[2016-10-27] MEDS: MoRPHine SULFATE 4 MG/ML 1 ML CARP\\VIAL IV PRN (22:17)
[2016-10-27 23:15] VITALS: BP 136/68; PULSE 63; TEMP 36.8; O2SAT 97
[2016-10-28 03:44] VITALS: BP 105/62; PULSE 61; TEMP 36.6; O2SAT 98
[2016-10-28] MEDS: MoRPHine SULFATE 4 MG/ML 1 ML CARP\\VIAL IV PRN ×2 (06:49→19:18)
[2016-10-28 07:42] VITALS: BP 127/67; PULSE 68; TEMP 36.9; O2SAT 97
[2016-10-28 07:48] LABS: HEMATOCRIT 29.9 % (42-52); MEAN CORPUSCULAR HEMOGLOBIN 31.4 pg (25-34); MEAN CORPUSCULAR HGB CONC 34.1 g/dl (32-36); MEAN PLATELET VOLUME 10.5 fL (7.4-10.4); PLATELET COUNT 141 K/uL (130-400); RED BLOOD COUNT 3.25 M/uL (4.7-6.1)
[2016-10-28 08:15] LABS: BLOOD UREA NITROGEN 43 mg/dl (7-18); BUN/CREATININE RATIO 13.8 (10-20); CALCIUM 8.1 mg/dl (8.5-10.1); CARBON DIOXIDE 29 mmol/L (21-32); CHLORIDE 106 mmol/L (98-107); GLUCOSE 84 mg/dl (70-99); POTASSIUM 3.1 mmol/L (3.5-5.1); SODIUM 144 mmol/L (136-145)
[2016-10-28] MEDS: ASPIRIN 81 MG ECTAB PO SCH (08:26)
[2016-10-28] MEDS: ESCITALOPRAM OXALATE 10 MG TAB PO SCH (08:26)
[2016-10-28] MEDS: DOCUSATE SODIUM 100 MG CAP PO SCH ×2 (08:27→20:00)
[2016-10-28] MEDS: LISINOPRIL 40 MG TAB PO SCH (08:27)
[2016-10-28] MEDS: FUROSEMIDE 40 MG TAB PO SCH ×2 (08:29→18:35)
[2016-10-28] MEDS: INSULIN ASPART 100 UNITS/ML 3 ML PEN SC SCH ×4 (08:33→20:51)
[2016-10-28] MEDS ORDERED: SUNITINIB MALATE PO SCH (09:00)
[2016-10-28] MEDS ORDERED: AMLODIPINE BESYLATE 5 MG TAB PO SCH (09:00)
--- NOTE | 2016-10-28 09:11 | Clinical Documentation Query ---
CLINICAL DOCUMENTATION QUERY Dr. GARCIA, In your clinical opinion is this patient being managed for: ( x ) Chronic kidney disease, stage 4 ( ) Other explanation of clinical findings (Please Explain) ( ) Unable to determine (Please Define) ( ) Need to Discuss ( ) Not Agree The medical record reflects the following clinical findings, treatment, and risk factors. Clinical Indicators: 60 yo male presenting with dyspnea. Noted to have CKD. Review of historical GFR over the past year showed a range of 19-29.3 Treatment: monitor PRP's, treat DM Risk Factors: age, renal cell cancer, DM Please clarify and document your clinical opinion in the progress notes and discharge summary. Terms such as "probable", "suspected", "likely", "questionable", "possible", or "still to be ruled out" are acceptable. IF IN AGREEMENT, YOU MUST DOCUMENT ABOVE DIAGNOSTIC STATEMENT IN DAILY PROGRESS NOTES AND DISCHARGE SUMMARY. This document is not part of the patient's record. Thank You, Gita Kumar RN [phone]
--- NOTE | 2016-10-28 09:58 | Hospitalist Progress Note ---
Hospitalist Progress Note Date of Service Oct 28, 2016. (Marcela Beverly PA-C) Subjective Pt evaluation today including: conversation w/ patient, physical exam, chart review, lab review, review of studies, review of inpatient medication list Patient seen and evaluated. No acute events overnight. VQ scan completed which shows low probability of PE. Patient denies shortness of breath at rest however continues to have BA He is currently undergoing chemotherapy with a 28 day on/14 day off cycle - he is currently in the off cycle with last chemotherapy 10/20/2016. Next dose scheduled for 11/02 Continues to be experiencing facial and abdominal swelling that has been present for the past couple days with an approximate 7 pound weight gain. Additional Comments: REVIEW OF SYSTEMS: General/Constitutional: + WEIGHT GAIN; Denies fever/chills, fatigue, weakness ENT: Denies visual changes, nasal drainage, hearing loss, sore throat, trouble swallowing Cardiovascular: Denies chest pain, palpitations Respiratory: +BA; Denies cough, sputum, wheezing, orthopnea GI: +LLQ TENDERNESS TO PALP, ABDOMINAL DISTENTION; Denies nausea, vomiting, constipation, diarrhea, melena/hematochezia : Denies dysuria, frequency, hematuria Musculoskeletal: +FACIAL SWELLING; Denies joint/muscle aches, weakness Neurologic: Denies dizziness/lightheadedness, numbness/tingling, weakness Psychiatric: Deferred Endocrine: Deferred Hematologic/Lymphatic: Denies bleeding/clotting abnormalities Skin: Denies rash, itch, new skin changes, easy bruising Allergy/Immunologic: Deferred (Marcela Beverly, BROCKC) Medications Current Inpatient Medications Medications (Trade) Dose Ordered Sig/Edward Route Start Time Stop Time Status Last Admin Dose Admin Atenolol (Tenormin Tab) 50 mg DAILY PO 10/28/16 09:00 11/27/16 08:59 10/28/16 08:27 50 MG Docusate Sodium (coLACE CAP) 100 mg BID PO 10/27/16 21:00 11/26/16 20:59 10/28/16 08:27 100 MG Escitalopram Oxalate (Lexapro Tab) 10 mg DAILY PO 10/28/16 09:00 11/27/16 08:59 10/28/16 08:26 10 MG Furosemide (Lasix Tab) 40 mg BID17 PO 10/27/16 17:33 11/26/16 17:32 10/28/16 08:29 40 MG Hydralazine HCl (Apresoline Tab) 50 mg TID PO 10/27/16 21:00 11/26/16 20:59 10/28/16 08:25 50 MG Lisinopril (Zestril Tab) 40 mg QAM PO 10/28/16 09:00 11/27/16 08:59 10/28/16 08:27 40 MG Simvastatin (Zocor Tab) 20 mg QPM PO 10/27/16 21:00 11/26/16 20:59 10/27/16 20:46 20 MG Terazosin HCl (Hytrin Cap) 5 mg HS PO 10/27/16 21:00 11/26/16 20:59 10/27/16 20:45 5 MG Aspirin (Ecotrin Tab) 81 mg QAM PO 10/28/16 09:00 11/27/16 08:59 10/28/16 08:26 81 MG Insulin Glargine (Lantus Solostar Pen) 15 unit QPM SC 10/27/16 21:00 11/26/16 20:59 10/27/16 20:47 15 UNIT Insulin Aspart (novoLOG ASPART) ACHS SC 10/27/16 21:00 11/26/16 20:59 10/28/16 08:33 4 UNITS Acetaminophen (Tylenol Tab) 650 mg Q4H PRN PO 10/27/16 16:30 11/26/16 16:29 10/27/16 20:56 650 MG Ondansetron HCl (Zofran Inj) 4 mg Q6H PRN IV 10/27/16 16:30 11/26/16 16:29 Nitroglycerin (Nitrostat Tab) 0.4 mg UD PRN SL 10/27/16 16:30 11/26/16 16:29 Morphine Sulfate (MoRPHine SULFATE INJ) 4 mg Q4H PRN IV 10/27/16 16:30 11/10/16 16:29 10/28/16 06:49 4 MG Morphine Sulfate (MoRPHine SULFATE INJ) 2 mg Q4H PRN IV 10/27/16 16:30 11/10/16 16:29 Glucose (Glucose 40% Gel) 15-30 GRAMS 15 GRAMS... UD PRN PO 10/27/16 16:30 11/26/16 16:29 Glucose (Glucose Chew Tab) 4-8 Tablets 4 Tabl... UD PRN PO 10/27/16 16:30 11/26/16 16:29 Dextrose (Dextrose 50% 50ML Syringe) 25-50ML OF 50% DW IV FOR... UD PRN IV 10/27/16 16:30 11/26/16 16:29 Glucagon (Glucagon Inj) 1 mg UD PRN SQ 10/27/16 16:30 11/26/16 16:29 Heparin Sodium (Porcine) (Heparin Sq 5000 Unit/0.5ml) 5,000 unit Q12 SQ 10/28/16 21:00 11/27/16 20:59 Amlodipine Besylate (Norvasc Tab) 10 mg PM PO 10/27/16 21:00 11/26/16 20:59 10/27/16 20:45 10 MG Miscellaneous Information (Order Awaiting Action) 1 ea QS N/A 11/03/16 00:00 12/03/16 00:00 Potassium Chloride (Klor-Con M10) 40 meq NOW STAT PO 10/28/16 09:35 10/28/16 09:36 UNV (Marcela Beverly, SARITA) Objective Vital Signs Date Time Temp Pulse Resp B/P Pulse Ox O2 Delivery O2 Flow Rate FiO2 10/28/16 08:00 Room Air 10/28/16 07:42 36.9 68 16 127/67 97 Room Air 10/28/16 04:00 Room Air 10/28/16 03:44 36.6 61 18 105/62 98 Room Air 10/28/16 00:00 Room Air 10/27/16 23:15 36.8 63 18 136/68 97 Room Air 10/27/16 20:00 Room Air 10/27/16 18:45 36.9 71 16 165/77 96 Room Air 10/27/16 17:14 36.8 75 16 155/81 97 10/27/16 16:45 75 16 155/81 97 10/27/16 16:15 61 13 97 10/27/16 15:59 Room Air 10/27/16 15:45 68 19 97 10/27/16 15:40 66 167/87 10/27/16 13:35 56 19 4/6/17 13:05 61 20 10/27/16 12:44 62 16 131/66 96 Room Air 10/27/16 12:43 131/66 10/27/16 12:35 59 12 10/27/16 12:05 62 17 10/27/16 11:05 68 17 10/27/16 10:35 69 14 10/27/16 10:30 63 10/27/16 10:09 36.8 72 20 120/64 97 Room Air (Marcela Beverly PA-C) Physical Exam Notes: HISTORY AND PHYSICAL: General Appearance: WDWN in NAD who is A&O x 3 HEENT: Head is normocephalic/atraumatic; EOMI; PERRLA; Hearing grossly intact; Mucous membranes moist; Pharynx negative for exudate/lesions Neck: Supple; Trachea midline; Neg JVD; Neg lymphadenopathy Heart: RRR with no M/G/R Lungs: CTA in all lung calderon bilaterally; Respirations unlabored; Neg accessory muscle use Abdomen: Soft, tenderness of LLQ to palp, mildly distended; Positive BS x 4 quadrants; Neg organomegaly Extremities: Capillary refill < 2 seconds; Neg cyanosis or edema Neurological: Speech clear; Gross motor/sensory function intact; Neg focal neurologic deficits Psychiatric: Appropriate mood/affect Skin: Normal Color; Warm/Dry; Neg rashes, ecchymosis, lacerations/ulcerations (Marcela Beverly, PA-C) Laboratory Results Last 24 Hours Test 10/27/16 11:10 10/27/16 11:18 10/27/16 18:45 10/27/16 20:15 White Blood Count 4.42 K/uL Red Blood Count 3.42 M/uL Hemoglobin 10.6 g/dL Hematocrit 31.5 % Mean Corpuscular Volume 92.1 fL Mean Corpuscular Hemoglobin 31.0 pg Mean Corpuscular Hemoglobin Concent 33.7 g/dl Platelet Count 145 K/uL Mean Platelet Volume 10.2 fL Neutrophils (%) (Auto) 57.2 % Lymphocytes (%) (Auto) 28.1 % Monocytes (%) (Auto) 11.8 % Eosinophils (%) (Auto) 2.5 % Basophils (%) (Auto) 0.2 % Neutrophils # (Auto) 2.53 K/uL Lymphocytes # (Auto) 1.24 K/uL Monocytes # (Auto) 0.52 K/uL Eosinophils # (Auto) 0.11 K/uL Basophils # (Auto) 0.01 K/uL RDW Standard Deviation 50.9 fL RDW Coefficient of Variation 15.0 % Immature Granulocyte % (Auto) 0.2 % Immature Granulocyte # (Auto) 0.01 K/uL Prothrombin Time 10.1 SECONDS Prothromb Time International Ratio 0.9 Activated Partial Thromboplast Time 24.6 SECONDS Partial Thromboplastin Ratio 0.9 Sodium Level 143 mmol/L Potassium Level 3.4 mmol/L Chloride Level 107 mmol/L Carbon Dioxide Level 28 mmol/L Anion Gap 8.0 mmol/L Blood Urea Nitrogen 41 mg/dl Creatinine 3.10 mg/dl Est Creatinine Clear Calc Drug Dose 25.5 ml/min Estimated GFR () 23.7 Estimated GFR (Non- 20.5 BUN/Creatinine Ratio 13.3 Random Glucose 171 mg/dl Calcium Level 8.5 mg/dl Total Bilirubin 0.3 mg/dl Direct Bilirubin < 0.1 mg/dl Aspartate Amino Transf (AST/SGOT) 15 U/L Alanine Aminotransferase (ALT/SGPT) 16 U/L Alkaline Phosphatase 65 U/L Total Protein 5.9 gm/dl Albumin 3.0 gm/dl Lipase 169 U/L Bedside D-Dimer > 450 ng/mlFEU Bedside Troponin I 0.000 ng/ml [id number]-[id number] Natriuretic Peptide 373 pg/ml Bedside Glucose 127 mg/dl Urine Color YELLOW Urine Appearance CLEAR Urine pH 6.0 Urine Specific Sisters 1.013 Urine Protein 3+ Urine Glucose (UA) NEG Urine Ketones NEG Urine Occult Blood NEG Urine Nitrite NEG Urine Bilirubin NEG Urine Urobilinogen NEG Urine Leukocyte Esterase NEG Urine WBC (Auto) 0 /hpf Urine RBC (Auto) 0-4 /hpf Urine Hyaline Casts (Auto) 1-5 /lpf Urine Epithelial Cells (Auto) 0-5 /lpf Urine Bacteria (Auto) NEG Test 10/28/16 06:41 10/28/16 07:06 Bedside Glucose 83 mg/dl White Blood Count 4.10 K/uL Red Blood Count 3.25 M/uL Hemoglobin 10.2 g/dL Hematocrit 29.9 % Mean Corpuscular Volume 92.0 fL Mean Corpuscular Hemoglobin 31.4 pg Mean Corpuscular Hemoglobin Concent 34.1 g/dl RDW Standard Deviation 51.1 fL RDW Coefficient of Variation 15.1 % Platelet Count 141 K/uL Mean Platelet Volume 10.5 fL Sodium Level 144 mmol/L Potassium Level 3.1 mmol/L Chloride Level 106 mmol/L Carbon Dioxide Level 29 mmol/L Anion Gap 9.0 mmol/L Blood Urea Nitrogen 43 mg/dl Creatinine 3.10 mg/dl Est Creatinine Clear Calc Drug Dose 25.5 ml/min Estimated GFR () 23.7 Estimated GFR (Non- 20.5 BUN/Creatinine Ratio 13.8 Random Glucose 84 mg/dl Calcium Level 8.1 mg/dl Troponin I < 0.015 ng/ml (Marcela Beverly PA-C) Assessment and Plan Mr. Christy is a 60-year-old male with metastatic renal cell carcinoma and previous thrombophilia with deep vein thrombosis. Dyspnea on Exertion: Cardiomyopathy vs Chemotherapy Effect vs Metastasis? - VQ scan - report reviewed - perfusion only scan with low probability of PE - Chest CT w/o Contrast and Echo - pending Metastatic Renal Cell Carcinoma S/P L Nephrectomy (2016): Current Chemotherapy ( On Off-Cycle) - Consult oncology - recommendations appreciated Chronic Kidney Disease 2/2 CA: Increased Facial Edema/Abdominal Edema - Lasix 40 mg BID T2DM: - Lantus 15 units daily and SSI HTN: Secondary? - Amlodipine 10 mg daily, atenolol 50 mg daily, lisinopril 40 mg daily, and hydralazine 50 mg TID DVT Prophylaxis: Heparin 5000 units SC Q12H Code Status: FULL RESUSCITATION (Marcela Beverly PA-C) i personally examined pt and verified all mcmanus points w A Rush PAC sob / ba w/u reassuring vitals stable, nad no orthopnea no accessory muscles breathing unlabored no pallor or icterus BA - appearing sutent ADR but given renal cell cancer benefits likely still outweigh risks -move to med surg, ambulate, anticipate home tomorrow RCC -CT abd/pelvis as requested by heme/onc -DVT proph - ambulation and heparin SQ (Jim Genao D.Lukas)
--- NOTE | 2016-10-28 10:22 | ECHOCARDIOGRAM REPORT ---
*NOTICE TO RECEIVING DEMOCRAT AGENCY This information is strictly Confidential and protected under [place] law. [place] law prohibits you from making any further disclosure of this information unless further disclosure is expressly permitted by the written consent of the person to whom it pertains or is authorized by law. A general authorization for the release of medical or other information is not sufficient for this purpose. Hospital accepts no responsibility if the information is made available to any other person, INCLUDING THE PATIENT. Interpretation Summary * Name: CHANO ANDERSON Study Date: 10/28/2016 06:56 AM BP: 105/62 mmHg * Patient Location: [id number].2E\S\E202\S\1 HR: 61 * : 1955 (M/d/yyyy) Gender: Male Height: 70 in * Age: 60 yrs Ethnicity: CA Weight: 188 lb * Ordering Physician: Greyson Mabyr * Referring Physician: Self, Referred * Performed By: Madi Gonzalez RCS * * Reason For Study: CHF * BSA: 2.0 m2 * -- Conclusions -- * 1. Normal LV size. Borderline concentric LVH. * 2. Normal LV systolic function. LVEF 65-70%. No regional wall motion abnormalities. * 3. Normal RV size and function. * 4. Mild aortic valve sclerosis without stenosis. * 5. Compared with prior study on 08/29/2016: No significant change. Procedure Details * A complete two-dimensional transthoracic echocardiogram was performed (2D, M-mode, Doppler and color flow Doppler). Left Ventricle * The left ventricle is grossly normal size. * There is borderline concentric left ventricular hypertrophy. * Ejection Fraction = 65-70%. * No regional wall motion abnormalities noted. Right Ventricle * The right ventricle is grossly normal size. * The right ventricular systolic function is normal as assessed by tricuspid annular plane systolic excursion (TAPSE) (normal >1.5 cm). Atria * The left atrium is mildly dilated. * Right atrial size is normal. * No ASD detected; PFO is not assessed. Mitral Valve * The mitral valve is grossly normal. * There is no mitral valve stenosis. * There is trace mitral regurgitation. Tricuspid Valve * The tricuspid valve is not well visualized, but is grossly normal. * There is trace tricuspid regurgitation. Aortic Valve * Aortic valve sclerosis mild, without significant aortic valvular stenosis. * No hemodynamically significant valvular aortic stenosis. * There is no significant aortic regurgitation. Pulmonic Valve * The pulmonary valve is inadequately visualized, but the Doppler data is adequate for interpretation. * There is no pulmonic valvular stenosis. * Trace pulmonic valvular regurgitation. Great Vessels * The aortic root and proximal ascending aorta are normal sized. Pericardium/Pleural * There is no pericardial effusion. Great Vessels * IVC 1.8, < 50% change with respiration. Est RA 8 mmHg MMode 2D Measurements and Calculations IVSd 1.0 cm IVSs 1.3 cm LVIDd 5.1 cm LVIDs 3.0 cm LVPWd 0.92 cm LVPWs 1.3 cm IVS/LVPW 1.1 FS 41.5 % EDV(Teich) 124.1 ml ESV(Teich) 34.6 ml EF(Teich) 72.1 % EDV(cubed) 133.1 ml ESV(cubed) 26.6 ml EF(cubed) 80.0 % % IVS thick 31.1 % % LVPW thick 42.3 % LV mass(C)d 179.7 grams LV mass(C)dI 88.4 grams/m\S\2 LV mass(C)s 126.1 grams LV mass(C)sI 62.0 grams/m\S\2 CO(Teich) 5.4 l/min CI(Teich) 2.6 l/min/m\S\2 SV(Teich) 89.5 ml SI(Teich) 44.0 ml/m\S\2 CO(cubed) 6.4 l/min CI(cubed) 3.1 l/min/m\S\2 SV(cubed) 106.5 ml SI(cubed) 52.4 ml/m\S\2 Ao root diam 3.2 cm Ao root area 8.0 cm\S\2 ACS 1.5 cm LA dimension 3.3 cm LA/Ao 1.1 LVAd ap4 30.3 cm\S\2 LVLd ap4 9.0 cm EDV(MOD-sp4) 85.0 ml LVAs ap4 14.9 cm\S\2 LVLs ap4 7.1 cm ESV(MOD-sp4) 26.0 ml EF(MOD-sp4) 69.4 % LVAd ap2 30.4 cm\S\2 LVLd ap2 8.6 cm EDV(MOD-sp2) 88.0 ml LVAs ap2 16.1 cm\S\2 LVLs ap2 7.2 cm ESV(MOD-sp2) 30.0 ml EF(MOD-sp2) 65.9 % CO(MOD-sp4) 3.5 l/min CI(MOD-sp4) 1.7 l/min/m\S\2 SV(MOD-sp4) 59.0 ml SI(MOD-sp4) 29.0 ml/m\S\2 CO(MOD-sp2) 3.5 l/min CI(MOD-sp2) 1.7 l/min/m\S\2 SV(MOD-sp2) 58.0 ml SI(MOD-sp2) 28.5 ml/m\S\2 Doppler Measurements and Calculations MV E max rafael 110.4 cm/sec MV A max rafael 82.3 cm/sec MV E/A 1.3 MV P1/2t max rafael 133.3 cm/sec MV P1/2t 89.9 msec MVA(P1/2t) 2.4 cm\S\2 MV dec slope 434.3 cm/sec\S\2 MV dec time 0.23 sec Ao V2 max 159.8 cm/sec Ao max PG 10.2 mmHg Ao max PG (full) 4.2 mmHg LV V1 max PG 6.0 mmHg LV V1 max 122.8 cm/sec PA V2 max 126.0 cm/sec PA max PG 6.3 mmHg PI max rafael 166.1 cm/sec PI max PG 11.0 mmHg PI dec slope 152.8 cm/sec\S\2 PI P1/2t 318.5 msec TR max rafael 276.3 cm/sec
[2016-10-28] MEDS ORDERED: POTASSIUM CHLORIDE 20 MEQ TABCR PO ONE (10:30)
[2016-10-28 11:29] VITALS: BP 128/69; PULSE 60; TEMP 36.8; O2SAT 96
--- NOTE | 2016-10-28 14:21 | Oncology Consultation ---
Oncology/Heme Consultation Date of Consultation: Oct 28, 2016. Attending Physician: Greyson Mabry M.D. Reason for Consultation: Metastatic Renal Cell Carcinoma SOB/Fatigue History of Present Illness Mr. Christy is a 60 year old man with a history of metastatic RCC. He is currently treated with Sutent, though he's required some dosage adjustments due to toxicity. Currently, he's taking 37.5 mg daily for 4/6 weeks. He presents with ongoing shortness of breath and fatigue. He describes it as getting tired after even modest exertion. He describes descending stairs to do laundry and then needing to rest afterward. He denies any increased swelling, cough, chest pain, hemoptysis, purulent sputum, or fevers. He also denies orthopnea or PND. Past Medical/Surgical History Medical Problems: (1) Acute dyspnea Status: Acute (2) Chronic kidney disease Status: Acute (3) Renal cell carcinoma Status: Acute Family History No family history of malignancy Social History Smoking Status: Never Smoker Allergies Coded Allergies: Iodinated Diagnostic Agents (Verified Allergy, Unknown, oil based, severe headaches, 10/27/16) EVENT OCCURED IN 1971, PT STATES HE HAS HAD 3 DIFFERENT WATER BASED IVP DYES WITH NO ISSUE Home Medications Scheduled Amlodipine (Norvasc), 10 MG PO DAILY Atenolol (Tenormin), 50 MG PO DAILY Docusate Sodium (Colace), 1 CAP PO BID Escitalopram (Lexapro), 10 MG PO DAILY Furosemide (Lasix), 40 MG PO BID Hydralazine Hcl (Apresoline), 50 MG PO TID Insulin Glargine (Lantus), 15 SC QPM Insulin Lispro (Human) (Humalog Kwikpen), 10-20 SC AFTER DINNER Lisinopril (Prinivil), 40 MG PO QAM Simvastatin (Zocor), 20 MG PO QPM Sunitinib Malate (Sutent), 1 CAP PO DAILY Terazosin (Hytrin), 5 MG PO HS [Aspirin], 81 MG PO DAILY Scheduled PRN [Tylenol #4], 1 TAB PO q4-6 hours PRN for Pain Current Inpatient Medications Current Inpatient Medications Medications (Trade) Dose Ordered Sig/Edward Route Start Time Stop Time Status Last Admin Dose Admin Atenolol (Tenormin Tab) 50 mg DAILY PO 10/28/16 09:00 11/27/16 08:59 10/28/16 08:27 50 MG Docusate Sodium (coLACE CAP) 100 mg BID PO 10/27/16 21:00 11/26/16 20:59 10/28/16 08:27 100 MG Escitalopram Oxalate (Lexapro Tab) 10 mg DAILY PO 10/28/16 09:00 11/27/16 08:59 10/28/16 08:26 10 MG Furosemide (Lasix Tab) 40 mg BID17 PO 10/27/16 17:33 11/26/16 17:32 10/28/16 08:29 40 MG Hydralazine HCl (Apresoline Tab) 50 mg TID PO 10/27/16 21:00 11/26/16 20:59 10/28/16 13:53 50 MG Lisinopril (Zestril Tab) 40 mg QAM PO 10/28/16 09:00 11/27/16 08:59 10/28/16 08:27 40 MG Simvastatin (Zocor Tab) 20 mg QPM PO 10/27/16 21:00 11/26/16 20:59 10/27/16 20:46 20 MG Terazosin HCl (Hytrin Cap) 5 mg HS PO 10/27/16 21:00 11/26/16 20:59 10/27/16 20:45 5 MG Aspirin (Ecotrin Tab) 81 mg QAM PO 10/28/16 09:00 11/27/16 08:59 10/28/16 08:26 81 MG Insulin Glargine (Lantus Solostar Pen) 15 unit QPM SC 10/27/16 21:00 11/26/16 20:59 10/27/16 20:47 15 UNIT Insulin Aspart (novoLOG ASPART) ACHS SC 10/27/16 21:00 11/26/16 20:59 10/28/16 12:08 3 UNITS Acetaminophen (Tylenol Tab) 650 mg Q4H PRN PO 10/27/16 16:30 11/26/16 16:29 10/27/16 20:56 650 MG Ondansetron HCl (Zofran Inj) 4 mg Q6H PRN IV 10/27/16 16:30 11/26/16 16:29 Nitroglycerin (Nitrostat Tab) 0.4 mg UD PRN SL 10/27/16 16:30 11/26/16 16:29 Morphine Sulfate (MoRPHine SULFATE INJ) 4 mg Q4H PRN IV 10/27/16 16:30 11/10/16 16:29 10/28/16 06:49 4 MG Morphine Sulfate (MoRPHine SULFATE INJ) 2 mg Q4H PRN IV 10/27/16 16:30 11/10/16 16:29 Glucose (Glucose 40% Gel) 15-30 GRAMS 15 GRAMS... UD PRN PO 10/27/16 16:30 11/26/16 16:29 Glucose (Glucose Chew Tab) 4-8 Tablets 4 Tabl... UD PRN PO 10/27/16 16:30 11/26/16 16:29 Dextrose (Dextrose 50% 50ML Syringe) 25-50ML OF 50% DW IV FOR... UD PRN IV 10/27/16 16:30 11/26/16 16:29 Glucagon (Glucagon Inj) 1 mg UD PRN SQ 10/27/16 16:30 11/26/16 16:29 Heparin Sodium (Porcine) (Heparin Sq 5000 Unit/0.5ml) 5,000 unit Q12 SQ 10/28/16 21:00 11/27/16 20:59 Amlodipine Besylate (Norvasc Tab) 10 mg PM PO 10/27/16 21:00 11/26/16 20:59 10/27/16 20:45 10 MG Miscellaneous Information (Order Awaiting Action) 1 ea QS N/A 11/03/16 00:00 12/03/16 00:00 Review of Systems Constitutional: + fatigue, + weakness, No chills, No fever ENT: No nasal symptoms, No unusual epistaxis Respiratory: + dyspnea on exertion, No cough, No hemoptysis, No sputum Cardiovascular: No PND, No chest pain, No orthopnea Abdomen: No nausea, No pain Musculoskeletal: No joint pain, No muscle pain Genitourinary - Male: No dysuria Neurologic: No numbness/tingling, No weakness Hematologic / Lymphatic: No abnormal bleeding/bruising, No night sweats Integumentary: No rash Physical Exam Date Time Temp Pulse Resp B/P Pulse Ox O2 Delivery O2 Flow Rate FiO2 10/28/16 12:00 Room Air 10/28/16 11:29 36.8 60 16 128/69 96 Room Air 10/28/16 08:00 Room Air 10/28/16 07:42 36.9 68 16 127/67 97 Room Air 10/28/16 04:00 Room Air 10/28/16 03:44 36.6 61 18 105/62 98 Room Air 10/28/16 00:00 Room Air 10/27/16 23:15 36.8 63 18 136/68 97 Room Air 10/27/16 20:00 Room Air 10/27/16 18:45 36.9 71 16 165/77 96 Room Air 10/27/16 17:14 36.8 75 16 155/81 97 10/27/16 16:45 75 16 155/81 97 10/27/16 16:15 61 13 97 10/27/16 15:59 Room Air 10/27/16 15:45 68 19 97 10/27/16 15:40 66 167/87 General Appearance: no apparent distress, + pertinent finding (tired-appearing but comfortable) Eyes: EOMI Neck: no JVD Respiratory/Chest: lungs clear, no respiratory distress Cardiovascular: regular rate, rhythm, no edema Abdomen/GI: normal bowel sounds, non tender, soft Extremities/Musculoskelatal: no pedal edema Neurologic/Psych: alert, oriented x 3 Skin: no rash Lymphatic: no adenopathy Laboratory Results Last 24 Hours Test 10/27/16 18:45 10/27/16 20:15 10/28/16 06:41 10/28/16 07:06 Bedside Glucose 127 mg/dl 83 mg/dl Urine Color YELLOW Urine Appearance CLEAR Urine pH 6.0 Urine Specific [place] 1.013 Urine Protein 3+ Urine Glucose (UA) NEG Urine Ketones NEG Urine Occult Blood NEG Urine Nitrite NEG Urine Bilirubin NEG Urine Urobilinogen NEG Urine Leukocyte Esterase NEG Urine WBC (Auto) 0 /hpf Urine RBC (Auto) 0-4 /hpf Urine Hyaline Casts (Auto) 1-5 /lpf Urine Epithelial Cells (Auto) 0-5 /lpf Urine Bacteria (Auto) NEG White Blood Count 4.10 K/uL Red Blood Count 3.25 M/uL Hemoglobin 10.2 g/dL Hematocrit 29.9 % Mean Corpuscular Volume 92.0 fL Mean Corpuscular Hemoglobin 31.4 pg Mean Corpuscular Hemoglobin Concent 34.1 g/dl RDW Standard Deviation 51.1 fL RDW Coefficient of Variation 15.1 % Platelet Count 141 K/uL Mean Platelet Volume 10.5 fL Sodium Level 144 mmol/L Potassium Level 3.1 mmol/L Chloride Level 106 mmol/L Carbon Dioxide Level 29 mmol/L Anion Gap 9.0 mmol/L Blood Urea Nitrogen 43 mg/dl Creatinine 3.10 mg/dl Est Creatinine Clear Calc Drug Dose 25.5 ml/min Estimated GFR () 23.7 Estimated GFR (Non- 20.5 BUN/Creatinine Ratio 13.8 Random Glucose 84 mg/dl Calcium Level 8.1 mg/dl Troponin I < 0.015 ng/ml Test 10/28/16 10:46 Bedside Glucose 117 mg/dl Assessment & Plan Mr. Christy has had ongoing issues with shortness of breath and fatigue. His description of his symptoms sounds more like fatigue than SOB or STEIN, per se. His chest x-ray is clear and his echocardiogram is normal. He is mildly anemic, but not enough to generally cause this degree of fatigue. He had a LE doppler that is negative for DVT and a perfusion scan was low probability for PE. I suspect his symptoms are related to fatigue from his Sutent. Sutent commonly causes fatigue, which can be excessive at times. He is on an off week right now , but I spoke with Dr. Dao and I expect the plan will be to switch to another therapy. In the meantime, hold the Sutent and please order a CT abdomen/ pelvis with oral contrast, to evaluate for progressive lymphadenopathy. We will review plans for further treatment as an outpatient.
[2016-10-28 15:46] VITALS: BP 122/68; PULSE 63; TEMP 37.2; O2SAT 97
--- NOTE | 2016-10-28 18:03 | DIAGNOSTIC IMAGING REPORT ---
ABDOMEN AND PELVIS CT WITH ORAL CONTRAST CT DOSE: 530.25 mGy.cm HISTORY: eval for progressive adenopathy, renal cell carcinoma. TECHNIQUE: Multiaxial CT images of the abdomen and pelvis were performed following the use of oral contrast. COMPARISON STUDY: Abdomen and pelvis CT 08/31/2016. FINDINGS: Stable 2 mm subpleural nodular density within the left lower lobe on image 10. This does not appear to represent a pulmonary nodule. Stable scarlike density within the base of the right lower lobe. Trace bilateral pleural effusions are again noted. No suspicious lytic or blastic osseous lesions. The unenhanced liver, gallbladder, spleen, and pancreas are unremarkable. The left kidney appears surgically absent. Trace fluid within the left renal fossa remains unchanged. Retrocrural and periaortic lymphadenopathy is again noted. A few these lymph nodes have slightly increased in size. Dominant right retrocrural lymph node measures 1.7 cm, previous measuring 1.4 cm. Dominant aortocaval lymph node measures 1.3 cm, previous measuring 1.1 cm. Normal bladder. Right perinephric edema has improved. No hydronephrosis. Multiple right renal lesions are again noted. These are incompletely characterize on this noncontrast study. Dominant 4 cm lesion within the interpolar region. Evidence for prior sigmoid anastomosis. Colonic diverticulosis. No bowel wall thickening or obstruction. Normal appendix. IMPRESSION: 1. Slight increase in size in a few of the retrocrural and periaortic lymph nodes consistent with metastatic disease. 2. Multiple indeterminate right renal lesions are again identified. The dominant 4 cm lesion could represent a renal cell carcinoma. 3. Trace bilateral pleural effusions, unchanged. Electronically signed by: Harris Cordova M.D. 10/28/2016 6:01 PM Dictated Date/Time: 10/28/2016 5:54 PM
[2016-10-28 18:28] VITALS: BP 122/68; PULSE 63; TEMP 37.2; O2SAT 97
[2016-10-28] MEDS: AMLODIPINE BESYLATE 5 MG TAB PO SCH (20:46)
[2016-10-28] MEDS: SIMVASTATIN 20 MG TAB PO SCH (20:46)
[2016-10-28] MEDS: HEPARIN SOD 5000 UNIT/0.5 ML CARP SQ SCH (20:52)
[2016-10-28] MEDS: INSULIN GLARGINE SOLOSTAR 100 UNITS/ML 3 ML PEN SC SCH (20:52)
[2016-10-28 23:17] VITALS: BP 122/69; PULSE 69; TEMP 36.4; O2SAT 96
[2016-10-29 07:18] VITALS: BP 124/65; PULSE 64; TEMP 37.1; O2SAT 97
[2016-10-29] MEDS: MoRPHine SULFATE 4 MG/ML 1 ML CARP\\VIAL IV PRN (08:47)
[2016-10-29] MEDS: LISINOPRIL 40 MG TAB PO SCH (08:48)
[2016-10-29] MEDS: ASPIRIN 81 MG ECTAB PO SCH (08:48)
[2016-10-29] MEDS: ESCITALOPRAM OXALATE 10 MG TAB PO SCH (08:49)
[2016-10-29] MEDS: FUROSEMIDE 40 MG TAB PO SCH (08:50)
[2016-10-29] MEDS: DOCUSATE SODIUM 100 MG CAP PO SCH (08:54)
[2016-10-29] MEDS: HEPARIN SOD 5000 UNIT/0.5 ML CARP SQ SCH (08:55)
[2016-10-29] MEDS: INSULIN ASPART 100 UNITS/ML 3 ML PEN SC SCH ×2 (08:56→12:08)
[2016-10-29 10:28] LABS: BUN/CREATININE RATIO 12.9 (10-20); CALCIUM 8.7 mg/dl (8.5-10.1); POTASSIUM 3.6 mmol/L (3.5-5.1)
--- NOTE | 2016-10-29 10:46 | Discharge Instructions ---
Discharge Instructions Date of Service Oct 29, 2016. Admission Reason for Admission: Shortness Of Breath Discharge Discharge Diagnosis / Problem: strongly probable medication side effect Discharge Goals Goal(s): Learn about illness, Diagnostic testing Activity Recommendations Activity Limitations: resume your previous activity (as we discussed, getting a pulse ox can help reassure you if your numbers are normal, and would alert you that something new has happened if they are low) . Current Hospital Diet Patient's current hospital diet: Diabetes Type 2 Diet Discharge Diet Recommended Diet: Low Sodium Diet (2gm Na), Diabetes Type 2 Diet Pending Studies Studies pending at discharge: no Laboratory Results Hemoglobin A1c Test 08/11/16 13:18 Range/Units Estimated Average Glucose 128 mg/dl Hemoglobin A1c 6.1 H 4.5-5.6 % Medical Emergencies . Who to Call and When: Medical Emergencies: If at any time you feel your situation is an emergency, please call 911 immediately. . Non-Emergent Contact Non-Emergency issues call your: Primary Care Provider, Oncologist . . "Provider Documentation" section prepared by Jim Genao. VTE Core Measure Inpt VTE Proph given/why not?: Enoxaparin (Lovenox)SQ, Other Anticoagulation
[2016-10-29] MEDS ORDERED: POTASSIUM CHLORIDE 10 MEQ TABCR PO ONE (11:15)
[2016-10-29 11:40] VITALS: BP 124/65; PULSE 64; TEMP 37.1; O2SAT 97
--- NOTE | 2016-10-29 18:10 | Discharge Summary ---
Discharge Summary Date of Service Oct 29, 2016. Discharge Summary Admission Date: Oct 27, 2016 at 16:20 Discharge Date: Oct 29, 2016 Discharge Disposition: Home Principal Diagnosis: dyspnea on exertion likely as treatment side effect Immunizations: Have You Had Influenza Vaccine: Yes Influenza Vaccine Date: May 14, 2015 History of Tetanus Vaccine?: Yes Tetanus Immunization Date: Sep 14, 2011 History of Pneumococcal: Yes Pneumococcal Date: Sep 14, 2013 History of Hepatitis B Vaccine: No Procedures: Interpretation Summary * Name: CHANO ANDERSON Study Date: 10/28/2016 06:56 AM BP: 105/62 mmHg * Patient Location: .2E\[id number]\E202\S\1 HR: 61 * : 1955 (M/d/yyyy) Gender: Male Height: 70 in * Age: 60 yrs Ethnicity: [place] Weight: 188 lb * Ordering Physician: Greyson Mabry * Referring Physician: Self, Referred * Performed By: Madi Gonzalez RCS * * Reason For Study: CHF * BSA: 2.0 m2 * -- Conclusions -- * 1. Normal LV size. Borderline concentric LVH. * 2. Normal LV systolic function. LVEF 65-70%. No regional wall motion abnormalities. * 3. Normal RV size and function. * 4. Mild aortic valve sclerosis without stenosis. * 5. Compared with prior study on 08/29/2016: No significant change. Procedure Details * A complete two-dimensional transthoracic echocardiogram was performed (2D, M- mode, Doppler and color flow Doppler). Left Ventricle * The left ventricle is grossly normal size. * There is borderline concentric left ventricular hypertrophy. * Ejection Fraction = 65-70%. * No regional wall motion abnormalities noted. Right Ventricle * The right ventricle is grossly normal size. * The right ventricular systolic function is normal as assessed by tricuspid annular plane systolic excursion (TAPSE) (normal >1.5 cm). Atria * The left atrium is mildly dilated. * Right atrial size is normal. * No ASD detected; PFO is not assessed. Mitral Valve * The mitral valve is grossly normal. * There is no mitral valve stenosis. * There is trace mitral regurgitation. Tricuspid Valve * The tricuspid valve is not well visualized, but is grossly normal. * There is trace tricuspid regurgitation. Aortic Valve * Aortic valve sclerosis mild, without significant aortic valvular stenosis. * No hemodynamically significant valvular aortic stenosis. * There is no significant aortic regurgitation. Pulmonic Valve * The pulmonary valve is inadequately visualized, but the Doppler data is adequate for interpretation. * There is no pulmonic valvular stenosis. * Trace pulmonic valvular regurgitation. Great Vessels * The aortic root and proximal ascending aorta are normal sized. Pericardium/Pleural * There is no pericardial effusion. Great Vessels * IVC 1.8, < 50% change with respiration. Est RA 8 mmHg CLINICAL HISTORY: Shortness of breath. Hypertension. COMPARISON STUDY: Chest x-ray dated 10/27/2016 FINDINGS: The patient was ventilated with 33 mCi of technetium 99m DTPA aerosol. The patient was perfused utilizing 6.2 mCi of technetium 99m MAA. Due to a computer malfunction, the ventilation data was lost. This examination is interpreted as a perfusion only study. There is a very small perfusion defect visualized on the RPO image, likely corresponding to an area of right basilar atelectasis. No moderate or large perfusion defects are visualized. This examination is characterized as low probability for pulmonary embolism(less than 10% risk). If there is a strong clinical suspicion of the presence of pulmonary embolism, CT angiography of the chest should be considered in follow-up IMPRESSION: Perfusion only study due to a technical malfunction. Low probability of acute pulmonary embolism Electronically signed by: Isael Aaron M.D. 10/27/2016 6:15 PM CHEST 2 VIEWS ROUTINE CLINICAL HISTORY: Shortness of breath. COMPARISON STUDY: Chest CT August 2016. FINDINGS: Lung volumes are normal. Linear right lower lung opacity favors atelectasis. There is no evidence of pulmonary edema. Cardiac size is normal. Mediastinal contours are normal. IMPRESSION: 1. No acute cardiopulmonary findings. 2. Linear right lower lobe opacity which favors atelectasis. Electronically signed by: Lei Gan M.D. 10/27/2016 11:32 AM Dictated Date/Time: 10/27/2016 11:28 AM [~ rep ct add3]] BILATERAL LOWER EXTREMITY VENOUS DOPPLER CLINICAL HISTORY: Shortness of breath. Lower extremity swelling. COMPARISON STUDY: No previous studies for comparison. TECHNIQUE: Sonography of the deep venous system of the bilateral lower extremities was performed. Compression and augmentation were evaluated. FINDINGS: The bilateral common femoral, superficial femoral and popliteal veins were compressible. Augmentation was normal. Flow was shown within the deep calf vessels. IMPRESSION: No evidence of deep venous thrombus within the bilateral lower extremities. Electronically signed by: Lei Gan M.D. 10/27/2016 2:24 PM Dictated Date/Time: 10/27/2016 2:24 PM INFERIOR VENA CAVA ULTRASOUND CLINICAL HISTORY: Shortness of breath. Possible IVC thrombus. Renal cell carcinoma. COMPARISON STUDY: CT scan of the abdomen and pelvis dated August 31, 2016 FINDINGS: The IVC and iliac veins appeared patent as visualized. There are portions of the mid IVC and proximal iliac veins which were not visualized due to overlying bowel gas shadowing. IMPRESSION: No IVC or iliac vein thrombus was visualized Electronically signed by: Isael Aaron M.D. 10/27/2016 6:50 PM Dictated Date/Time: 10/27/2016 6:49 PM ABDOMEN AND PELVIS CT WITH ORAL CONTRAST CT DOSE: 530.25 mGy.cm HISTORY: eval for progressive adenopathy, renal cell carcinoma. TECHNIQUE: Multiaxial CT images of the abdomen and pelvis were performed following the use of oral contrast. COMPARISON STUDY: Abdomen and pelvis CT 08/31/2016. FINDINGS: Stable 2 mm subpleural nodular density within the left lower lobe on image 10. This does not appear to represent a pulmonary nodule. Stable scarlike density within the base of the right lower lobe. Trace bilateral pleural effusions are again noted. No suspicious lytic or blastic osseous lesions. The unenhanced liver, gallbladder, spleen, and pancreas are unremarkable. The left kidney appears surgically absent. Trace fluid within the left renal fossa remains unchanged. Retrocrural and periaortic lymphadenopathy is again noted. A few these lymph nodes have slightly increased in size. Dominant right retrocrural lymph node measures 1.7 cm, previous measuring 1.4 cm. Dominant aortocaval lymph node measures 1.3 cm, previous measuring 1.1 cm. Normal bladder. Right perinephric edema has improved. No hydronephrosis. Multiple right renal lesions are again noted. These are incompletely characterize on this noncontrast study. Dominant 4 cm lesion within the interpolar region. Evidence for prior sigmoid anastomosis. Colonic diverticulosis. No bowel wall thickening or obstruction. Normal appendix. IMPRESSION: 1. Slight increase in size in a few of the retrocrural and periaortic lymph nodes consistent with metastatic disease. 2. Multiple indeterminate right renal lesions are again identified. The dominant 4 cm lesion could represent a renal cell carcinoma. 3. Trace bilateral pleural effusions, unchanged. Electronically signed by: Harris Cordova M.D. 10/28/2016 6:01 PM Last Resulted CBC 10/28/16 07:06 Last Resulted BMP 10/29/16 09:13 Consultations: heme/onc Medication Reconciliation Continued Medications: Amlodipine (Norvasc) 10 Mg Tab 10 MG PO DAILY, TAB Atenolol (Tenormin) 50 Mg Tab 50 MG PO DAILY, TAB Docusate Sodium (Colace) 100 Mg Cap 1 CAP PO BID Escitalopram (Lexapro) 10 Mg Tab 10 MG PO DAILY, TAB Furosemide (Lasix) 40 Mg Tab 40 MG PO BID, TAB Hydralazine Hcl (Apresoline) 50 Mg Tab 50 MG PO TID, TAB Insulin Glargine (Lantus) Vial 15 SC QPM, VIAL Insulin Lispro (Human) (Humalog Kwikpen) 100 Unit/Ml Inj 10-20 SC AFTER DINNER Lisinopril (Prinivil) 40 Mg Tab 40 MG PO QAM, TAB Simvastatin (Zocor) 20 Mg Tab 20 MG PO QPM, TAB Sunitinib Malate (Sutent) 37.5 Mg Cap 1 CAP PO DAILY 28 DAYS ON - 14 DAYS OFF. Terazosin (Hytrin) 5 Mg Cap 5 MG PO HS, CAP [Aspirin] () 81 MG PO DAILY [Tylenol #4] () 1 TAB PO q4-6 hours PRN for Pain Discharge Exam Physical Exam: General Appearance: no apparent distress Eyes: EOMI ENT: hearing grossly normal Neck: trachea midline Respiratory/Chest: no respiratory distress, no accessory muscle use Extremities: normal inspection Neurologic/Psychiatric: straightener gun parts II-XII nml as tested, alert, normal mood/affect Hospital Course Dyspnea on Exertion: Cardiomyopathy vs Chemotherapy Effect vs Metastasis? - after extensive review does not appear PE, pulmonary pathology, cardiac pathology. vitals stable without hypoxia - likely is sutent ADR but given efficacy Metastatic Renal Cell Carcinoma S/P L Nephrectomy (2015): Current Chemotherapy ( On Off-Cycle) - ongoing sutent, ongoing outpt f/u this coming week Chronic Kidney Disease stage 4 2/ CA: - continue home meds and continue outpt f/u T2DM: - continue home meds HTN: - Amlodipine 10 mg daily, atenolol 50 mg daily, lisinopril 40 mg daily, and hydralazine 50 mg TID DVT Prophylaxis: Heparin 5000 units SC Q12H utilized while here Code Status: FULL RESUSCITATION stable for discharge, sees oncology this week Total Time Spent: Greater than 30 minutes This includes examination of the patient, discharge planning, medication reconciliation, and communication with other providers. Discharge Instructions Please refer to the electronic Patient Visit Report (Discharge Instructions) for additional information. Additional Copies To Hunter Dao D.O.; Salvador Muller M.D.
[2017-03-22] MEDS ORDERED: LVQ250 PO (12:19)
[2017-03-22] MEDS ORDERED: MRLP17X PO (12:19)
[2017-03-22] MEDS ORDERED: SENN-65 PO (12:19)
[2017-03-22] MEDS ORDERED: OXYC-57 PO (12:19)
[2017-03-22] MEDS ORDERED: SODI650T8 PO (12:19)
[2017-03-22] MEDS ORDERED: LCTXP PO (12:19)
[2017-03-23] MEDS ORDERED: METR500T PO (11:15)
[2017-03-23] MEDS ORDERED: HYDR100T12 PO (14:30)
[2017-03-23] MEDS ORDERED: PRD20 PO (14:30)
[2017-04-09] MEDS ORDERED: METO-478 PO (19:09)
[2017-04-28] MEDS ORDERED: INSDGI SC (06:56)
[2017-04-28] MEDS ORDERED: TAMS0.4C38 PO (06:56)
[2017-04-28] MEDS ORDERED: PRED20TA PO (06:56)
[2017-04-28] MEDS ORDERED: ASPI81TA28 PO (06:56)
[2017-04-28] MEDS ORDERED: HYDR100T12 PO (06:57)
[2017-04-28] MEDS ORDERED: OXYC-164 PO (07:00)
[2017-04-28] MEDS ORDERED: FENT75DI2 TOP (07:00)
[2017-04-28] MEDS ORDERED: METH5TAB2 PO (07:00)
[2017-04-28] MEDS ORDERED: LSX20 PO (07:03)
[2017-06-14] MEDS ORDERED: INSDGI SC (18:28)
[2017-06-14] MEDS ORDERED: LSX20 PO (18:28)
[2017-06-14] MEDS ORDERED: PRED10TA PO (18:28)
[2017-06-14] MEDS ORDERED: METH10TA PO (18:28)
[2017-06-14] MEDS ORDERED: CEFT1INJ26 IV (18:28)
[2017-06-14] MEDS ORDERED: VANC1INJ94 IV (18:29)
== END 2016-10-29 12:49 | disposition home or self-care (01) | DRG 687 ==
LOC: ENRESERVTM → ENRESERVDT → CANRESERV → C.EDB 10:06 → C.2E 16:20 → EDBEDREQSVC 10-28 18:03 → C.4E 10-28 18:56
PROVIDERS: ADMIT Internal Medicine; ATTEND Family Medicine
DX: C64.9 Malignant neoplasm of unspecified kidney, except renal pelvis (principal); N18.4 Chronic kidney disease, stage 4 (severe); D64.9 Anemia, unspecified; R06.09 Other forms of dyspnea; N40.0 Benign prostatic hyperplasia without lower urinary tract symptoms; I12.9 Hypertensive chronic kidney disease with stage 1 through stage 4 chronic kidney disease, or unspecified chronic kidney disease; R53.83 Other fatigue; E11.22 Type 2 diabetes mellitus with diabetic chronic kidney disease; T45.1X5A Adverse effect of antineoplastic and immunosuppressive drugs, initial encounter; Z79.899 Other long term (current) drug therapy; Z79.82 Long term (current) use of aspirin; Z79.4 Long term (current) use of insulin; Z86.718 Personal history of other venous thrombosis and embolism; Z90.5 Acquired absence of kidney

== ENCOUNTER → 2016-11-10 | Outpatient (CLI) | payer OTHER ==
[~2016-11-10] MED LIST changes: +ACCU; +ASPI81TA28 PO; +CABO60TA PO; +CALC1CAP36 PO; +CALC500C3 PO; +CEFT1INJ26 IV; +DAPT500I IV; +ERTA1INJ IV; +ESCI10TA17 PO; +FENT75DI2 TOP; +FRRS300 PO; +FURO40TA3 PO; -HMLI7525 SC; +HYDR-4717 PO; +HYDR100T12 PO; +INSDGIPEN SC; +INSU100I2 SC; +INSU1INJ23 SC; +INSU1MIS SC; +LCTX OR; +LCTXP PO; +LISI40TA PO; +LSN20 PO; +LSN40 OR; +LSX20 PO; +LSX40 PO; +LVQ250 PO; +METH10TA PO; +METH5TAB2 PO; +METO-478 PO; +METO100T14 PO; +METR500T PO; +MRLP17X PO; +MTH10 PO; +NIVO1INJ IV; +NVLGIPEN SC; +OXYC-164 PO; +OXYC-57 PO; +PRD20 PO; +PRD50 PO; +PRED-301 PO; +PRED10TA PO; +PRED20TA PO; +SENN-65 PO; +SODI650T8 PO; +SUNI37.5 PO; +TAMS0.4C38 PO; +TPRSR/100 PO; +VANC1INJ94 IV; +test strips EXT
[2016-11-10 14:39] LABS: HEMATOCRIT 31.9 % (42-52); MEAN CELL VOLUME 94.1 fL (80-100); MEAN CORPUSCULAR HEMOGLOBIN 30.1 pg (25-34); MEAN PLATELET VOLUME 9.8 fL (7.4-10.4); PLATELET COUNT 211 K/uL (130-400); RED BLOOD COUNT 3.39 M/uL (4.7-6.1); WHITE BLOOD COUNT 6.42 K/uL (4.8-10.8)
[2016-11-10 14:49] LABS: ESTIMATED AVERAGE GLUCOSE 134 mg/dl; HA1C FLAG Normal (Normal)
[2016-11-10 14:54] LABS: BLOOD UREA NITROGEN 41 mg/dl (7-18); BUN/CREATININE RATIO 14.3 (10-20); CARBON DIOXIDE 30 mmol/L (21-32); CHLORIDE 103 mmol/L (98-107); GLUCOSE 115 mg/dl (70-99); PHOSPHORUS 3.5 mg/dl (2.5-4.9); POTASSIUM 3.9 mmol/L (3.5-5.1); SODIUM 141 mmol/L (136-145)
[2016-11-10 15:09] LABS: URINE PROTIEN/CREAT RATIO 3.3 (0-0.2); URINE TOTAL PROTEIN 129.3 mg/dl (0-11.9)
[2016-11-10 15:13] LABS: URINE APPEARANCE CLEAR (CLEAR); URINE BILIRUBIN NEG (NEG); URINE COLOR YELLOW; URINE EPITHELIAL CELL AUTO 0-5 /lpf (0-5); URINE NITRITE NEG (NEG); URINE PH 6.5 (4.5-7.5); URINE SPECIFIC GRAVITY 1.009 (1.000-1.030); UROBILINOGEN NEG (NEG)
[2016-11-10 15:14] LABS: MANUAL MICROSCOPIC REQUIRED? NO; REVIEW REQ? NO
== END | disposition home or self-care (01) ==
LOC: C.LAB1850 12:45
PROVIDERS: ATTEND Internal Medicine Nephrology
DX: N18.4 Chronic kidney disease, stage 4 (severe) (principal); E11.22 Type 2 diabetes mellitus with diabetic chronic kidney disease; E55.9 Vitamin D deficiency, unspecified; D64.9 Anemia, unspecified

== ENCOUNTER → 2016-11-23 | Outpatient (CLI) | payer OTHER ==
--- NOTE | 2016-11-23 14:17 | DIAGNOSTIC IMAGING REPORT ---
CHEST 2 VIEWS ROUTINE CLINICAL HISTORY: CLEAR CELL RENAL CARCOMA neoplasm COMPARISON STUDY: 10/27/2016 FINDINGS: The bones soft tissues and hemidiaphragms are normal. The cardiomediastinal silhouette is normal. The lungs are clear. The pulmonary vasculature is normal. IMPRESSION: Negative chest. Electronically signed by: Kirill Rainey M.D. 11/23/2016 2:16 PM Dictated Date/Time: 11/23/2016 2:16 PM
== END | disposition home or self-care (01) ==
LOC: C.RAD1850 13:58
PROVIDERS: ATTEND Nurse Practitioner Family
DX: C64.2 Malignant neoplasm of left kidney, except renal pelvis (principal)

== ENCOUNTER → 2016-12-02 | Outpatient (CLI) | payer OTHER ==
--- NOTE | 2016-12-02 12:04 | DIAGNOSTIC IMAGING REPORT ---
CHEST CT WITHOUT CONTRAST CT DOSE: 1035.42 mGy.cm HISTORY: Renal cell carcinoma X TECHNIQUE: Multiaxial CT images of the chest were performed without contrast. COMPARISON: 08/31/2016 FINDINGS: The lungs are clear. The mediastinal vascular structures are within normal limits. No mediastinal or hilar lymphadenopathy. No pleural effusion or pneumothorax. Limited views of the upper abdomen demonstrate a normal liver and spleen. Chronic fibrotic/pleural reactive and/or scarlike changes posterior right costophrenic angle. This is unchanged from the prior exam. IMPRESSION: 1. No acute process. 2. No change from the prior exam. Electronically signed by: Kirill Rainey M.D. 12/02/2016 12:03 PM Dictated Date/Time: 12/02/2016 12:00 PM
--- NOTE | 2016-12-02 12:11 | DIAGNOSTIC IMAGING REPORT ---
CT SCAN OF THE ABDOMEN AND PELVIS WITHOUT CONTRAST CLINICAL HISTORY: Renal cell carcinoma. History of left nephrectomy. COMPARISON STUDY: 10/28/2016 TECHNIQUE: CT scan of the abdomen and pelvis was performed from the lung bases to the proximal femurs. Images are reviewed in the axial, sagittal, and coronal planes. IV contrast was not administered for this examination. CT DOSE: FINDINGS: Lower chest: There is a small right pleural effusion. There are linear right lower lobe opacities which likely represent an area of scarring. Liver: The unenhanced liver is normal in size, contour, and attenuation. There is no intrahepatic biliary ductal dilatation. Gallbladder: Unremarkable. Spleen: Normal in size and attenuation. Pancreas: Unremarkable. Adrenal glands: There is mild right adrenal gland thickening. This remains unchanged. Kidneys: There are postsurgical changes of a prior left nephrectomy. There is an exophytic upper pole right renal mass measuring 29 mm. This contains a peripheral calcification. This slightly exceeds water attenuation and is therefore indeterminate. There are additional hypoechoic upper pole right renal lesions. There is a 34 mm dominant lesion within the interpolar region. This exceeds water attenuation. These lesions cannot be further characterized on this noncontrast study. Bowel: There are no transition zones indicate bowel obstruction. There is colonic diverticulosis. There are no acute peridiverticular inflammatory changes. The appendix appears normal. There are postsurgical changes are prior sigmoid anastomosis. Peritoneum: There is no intraperitoneal free air or abdominal ascites. Vasculature: The abdominal aorta is normal in course and caliber. Adenopathy: There is an enlarging aortocaval lymph node which currently measures 2 cm in diameter. This interval growth is viewed as suspicious for a metastatic focus. Enlarged retrocrural lymph nodes measuring up to 14 mm remain essentially stable Pelvic viscera: There is mild prostamegaly (52 mm). Skeletal structures: No destructive osseous lesions are seen. IMPRESSION: 1. Further increase in the size of the aortocaval lymph node currently measuring 2 cm diameter. The finding is consistent with metastatic disease. Enlarged retrocrural lymph nodes remain stable 2. Multiple indeterminate right renal lesions which cannot be further characterized on this noncontrast study 3. Stable small right pleural effusion and area of presumed right lower lobe scarring 4. Surgically absent left kidney Electronically signed by: Isael Aaron M.D. 12/02/2016 12:10 PM Dictated Date/Time: 12/02/2016 12:02 PM
== END | disposition home or self-care (01) ==
LOC: C.CTS 11:37
PROVIDERS: ATTEND Internal Medicine Hematology & Oncology
DX: C64.2 Malignant neoplasm of left kidney, except renal pelvis (principal); R59.0 Localized enlarged lymph nodes; J90 Pleural effusion, not elsewhere classified; Z90.5 Acquired absence of kidney; N28.9 Disorder of kidney and ureter, unspecified

== ENCOUNTER → 2017-01-11 | Outpatient (CLI) | payer OTHER ==
[2017-01-11 11:34] LABS: PATIENT HEIGHT 177.8 cm
[2017-01-11 11:55] LABS: HEMATOCRIT 36.5 % (42-52); MEAN CELL VOLUME 85.9 fL (80-100); MEAN CORPUSCULAR HEMOGLOBIN 28.5 pg (25-34); MEAN CORPUSCULAR HGB CONC 33.2 g/dl (32-36); MEAN PLATELET VOLUME 10.4 fL (7.4-10.4); PLATELET COUNT 225 K/uL (130-400); RED BLOOD COUNT 4.25 M/uL (4.7-6.1); WHITE BLOOD COUNT 15.68 K/uL (4.8-10.8)
[2017-01-11 12:04] LABS: URINE APPEARANCE CLEAR (CLEAR); URINE BILIRUBIN NEG (NEG); URINE COLOR YELLOW; URINE EPITHELIAL CELL AUTO 0-5 /lpf (0-5); URINE NITRITE NEG (NEG); URINE PH 5.5 (4.5-7.5); URINE SPECIFIC GRAVITY 1.011 (1.000-1.030); UROBILINOGEN NEG (NEG)
[2017-01-11 12:13] LABS: MANUAL MICROSCOPIC REQUIRED? NO; REVIEW REQ? NO
[2017-01-11 12:20] LABS: CALCIUM 8.9 mg/dl (8.5-10.1)
[2017-01-11 12:27] LABS: BLOOD UREA NITROGEN 50 mg/dl (7-18); BUN/CREATININE RATIO 15.2 (10-20); CARBON DIOXIDE 29 mmol/L (21-32); CHLORIDE 100 mmol/L (98-107); GLUCOSE 166 mg/dl (70-99); POTASSIUM 3.8 mmol/L (3.5-5.1); SODIUM 140 mmol/L (136-145); URINE PROTIEN/CREAT RATIO 4.6 (0-0.2); URINE TOTAL PROTEIN 114.7 mg/dl (0-11.9)
[2017-01-11 12:32] LABS: FERRITIN 45.6 ng/ml (8.0-388.0); PHOSPHORUS 4.1 mg/dl (2.5-4.9); TOTAL IRON BINDING CAPACITY 280 mcg/dl (250-450)
[2017-01-11 19:19] LABS: CREATININE 3.3 mg/dl (0.6-1.4)
== END | disposition home or self-care (01) ==
LOC: C.LABSPEC 08:38
PROVIDERS: ATTEND Internal Medicine Nephrology
DX: N18.4 Chronic kidney disease, stage 4 (severe) (principal); D64.9 Anemia, unspecified

== ENCOUNTER 2017-03-09 13:28 | Inpatient (IN) | payer OTHER ==
[~2017-03-09] VITALS: Ht 177.8 cm; Wt 82.2 kg
[~2017-03-09 13:28] MED LIST changes: -ACCU; -ASPI81TA28 PO; -CABO60TA PO; -CALC1CAP36 PO; -CALC500C3 PO; -CEFT1INJ26 IV; -DAPT500I IV; -ERTA1INJ IV; -FENT75DI2 TOP; -FRRS300 PO; -HYDR100T12 PO; -INSDGIPEN SC; -INSU1INJ23 SC; -INSU1MIS SC; -LCTX OR; -LCTXP PO; -LSN20 PO; -LSN40 OR; -LSX20 PO; -LSX40 PO; -LVQ250 PO; -METH10TA PO; -METH5TAB2 PO; -METO-478 PO; -METO100T14 PO; -METR500T PO; -MRLP17X PO; -MTH10 PO; -NIVO1INJ IV; -NVLGIPEN SC; -OXYC-164 PO; -OXYC-57 PO; -PRD20 PO; -PRD50 PO; -PRED-301 PO; -PRED10TA PO; -PRED20TA PO; -SENN-65 PO; -SODI650T8 PO; -TAMS0.4C38 PO; -TPRSR/100 PO; -VANC1INJ94 IV; -test strips EXT
--- NOTE | 2017-03-09 14:13 | DIAGNOSTIC IMAGING REPORT ---
ABDOMEN 2VIEW W/PA CHEST RTN CLINICAL HISTORY: CLEAR CELL RENAL CARCIN AMA C64.2 COMPARISON STUDY: 11/23/2016 FINDINGS: The soft tissues, psoas shadows, renal outlines and intestinal gas pattern appear normal. There is no evidence for bowel obstruction. There is no evidence for free intraperitoneal air. No abnormal abdominal calcifications are seen. A frontal view of the chest was performed and is unremarkable. IMPRESSION: Normal study. The above report was generated using voice recognition software. It may contain grammatical, syntax or spelling errors. Electronically signed by: Kirill Rainey M.D. 03/09/2017 2:11 PM Dictated Date/Time: 03/09/2017 2:11 PM
[2017-03-09 14:45] VITALS: BP 175/75; PULSE 73; TEMP 37; O2SAT 99
[2017-03-09] MEDS ORDERED: GLUCOSE 10 TABS/TUBE PO PRN (15:00)
[2017-03-09] MEDS ORDERED: GLUCOSE 40% GEL 15 GM TUBE PO PRN (15:00)
[2017-03-09] MEDS ORDERED: ACETAMINOPHEN 325 MG TAB PO PRN (15:00)
[2017-03-09] MEDS ORDERED: ALUMINUM/MAGNESIUM/SIMETH (MAALOX MAX) 30 ML UDC PO PRN (15:00)
[2017-03-09] MEDS ORDERED: MAGNESIUM HYDROXIDE SUSP 30 ML UDC PO PRN (15:00)
[2017-03-09] MEDS ORDERED: ONDANSETRON INJ 2 MG/ML 2 ML VIAL IV PRN (15:00)
[2017-03-09] MEDS ORDERED: DEXTROSE 50% 50 ML SYR IV PRN (15:00)
[2017-03-09] MEDS ORDERED: GLUCAGON FOR INJ 1 MG VIAL SQ PRN (15:00)
[2017-03-09 15:09] VITALS: BP 175/75; PULSE 73; TEMP 37; BMI 26.0
[2017-03-09 15:13] VITALS: BP 175/75; PULSE 72; TEMP 37; O2SAT 99
--- NOTE | 2017-03-09 15:28 | History and Physical ---
History & Physical Date & Time of Service: Mar 09, 2017 at 15:08 Chief Complaint: Clear Cell Renal Carcinoma Primary Care Physician: Salvador Muller M.D. History of Present Illness Source: patient, family (daughter at bedside), clinic records, hospital records , friend This is a 61 y/o male with a history of renal cell carcinoma, HTN, HLD, DM II, CKD stage IV, asthma, anemia, anxiety and depression, and BPH who presented for direct admission from the [facility] on 03/09 with abdominal pain x 2 days. The patient states that he has diffuse abdominal pain that first began about 2 days ago. He states that it is typically achy in character although he does experience intermittent bouts of sharpness. He rates his pain a 03/02. He states that movement, cough, and deep breaths exacerbates the pain. He denies any worsening of the pain with eating. He states that his bowel movements have been looser than normal but have not increased in frequency. He denies hematochezia or melena, but states that his stool tested positive for occult blood in 03/06. He states that he feels generally weak and fatigued. He does admit to intermittent chest pain that is sometimes sharp but usually goes away quickly. He is unsure if this is radiation of pain from the abdomen. He denies any associated shortness of breath, nausea, numbness or tingling. The patient denies fevers, chills, sweats, palpitations, claudication, cough, wheezing, shortness of breath, nausea, vomiting, dysuria, hematuria, urinary retention, paralysis, motor weakness, acute/different numbness and tingling. Past Medical/Surgical History Renal cell carcinoma HTN HLD DM II CKD stage IV Asthma Anemia Anxiety and depression BPH Family History Cervical cancer Diabetes mellitus Heart disease Hypertension Myocardial infarction Pancreatic cancer Prostate cancer Social History Smoking Status: Never Smoker Smokeless Tobacco Use: No Alcohol Use: none Drug Use: none Marital Status: single Housing status: lives alone Occupational Status: retired Immunizations History of Influenza Vaccine: Yes Influenza Vaccine Date: May 14, 2015 History of Tetanus Vaccine?: Yes Tetanus Immunization Date: Sep 14, 2011 History of Pneumococcal: Yes Pneumococcal Date: Sep 14, 2013 History of Hepatitis B Vaccine: No Allergies Coded Allergies: Iodinated Diagnostic Agents (Verified Allergy, Unknown, oil based, severe headaches, 10/27/16) EVENT OCCURED IN 1971, PT STATES HE HAS HAD 3 DIFFERENT WATER BASED IVP DYES WITH NO ISSUE Home Medications Scheduled Amlodipine (Norvasc), 10 MG PO DAILY Atenolol (Tenormin), 50 MG PO DAILY Calcitriol (Calcitriol), 0.25 MCG PO 3XWK Docusate Sodium (Colace), 1 CAP PO BID Escitalopram (Lexapro), 10 MG PO DAILY Ferrous Sulfate (Ferrous Sulfate), 325 MG PO BID Furosemide (Lasix), 40 MG PO DAILY Insulin Glargine (Lantus), 14 SC QPM Insulin Lispro (Human) (Humalog Kwikpen), 10-20 SC AFTER DINNER Lisinopril (Prinivil), 40 MG PO QAM Nivolumab (Opdivo), 40 MG IV Q14D Simvastatin (Zocor), 20 MG PO QPM Terazosin (Hytrin), 5 MG PO HS [Aspirin], 81 MG PO DAILY Scheduled PRN [Tylenol #4], 1 TAB PO q4-6 hours PRN for Pain Review of Systems Constitutional: + weakness, + fatigue, No fever, No chills, No sweats Eyes: No worsening of vision, No eye pain, No diplopia ENT: No hearing loss, No sore throat, No trouble swallowing Respiratory: No cough, No wheezing, No shortness of breath Cardiovascular: + chest pain (intermittent), No claudication, No palpitations Abdomen: + pain, + GI bleeding, No nausea, No vomiting Musculoskeletal: + joint pain (chronic back pain L2-S1), No muscle pain, No calf pain Genitourinary - Male: No hematuria, No dysuria, No urinary retention Neurologic: + numbness/tingling (chronic neuropathy hands and feet), No paralysis, No weakness Integumentary: No rash, No itch, No color change Physical Exam Vital Signs Date Time Temp Pulse Resp B/P (MAP) Pulse Ox O2 Delivery O2 Flow Rate FiO2 03/09/17 14:45 37.0 73 20 175/75 99 Room Air General appearance: Well-developed, well-nourished, no apparent distress Head: Normocephalic, atraumatic Eyes: Normal inspection, PERRL, EOMI ENT: Normal ENT inspection, hearing grossly normal, pharynx normal Neck: Supple, no JVD, trachea midline Respiratory/Chest: Lungs clear to auscultation, normal breath sounds, no respiratory distress Cardiovascular: Regular rate & rhythm, no gallop, no murmur Abdomen/GI: +Diffuse tenderness with palpation, worst in lower quadrants. Normal bowel sounds, soft Extremities/Musculoskeletal: +Trace pitting edema. Normal inspection, no calf tenderness Neurological/Psych: Alert, normal mood/affect, oriented x 3 Skin: Normal color, warm/dry, no rash Diagnostics Diagnostic Radiology Reviewed the following studies and agree with interpretation as follows: Patient Name: CHANO ANDERSON Unit Number: [id number] Dictated: 03/09/171410 Transcribed: 03/09/171410 MS Printed Date/Time: [~ rep prt dt]/[~ rep prt tm] [~ rep ct labl] - [~ rep ct ivnm] [facility] [place] [address] Dictated: 03/09/171410 Transcribed: 03/09/171410 MS Printed Date/Time: [~ rep prt dt]/[~ rep prt tm] [~ rep ct labl] - [~ rep ct ivnm] Patient: CHANO ANDERSON Address1: [address] [facility] Rec: [id number] Address2: Acct ID: [id number] [facility] Zip: [place] [address] Date: 1955 Sex: M Room/Bed: Ref Phy: Salvador Muller M.D. SC: CJONY Att Phy: Hunter Dao D.O. Report #: [id number] Mulu Phy: Salvador Muller M.D. Test: ABCX Admit Phy: Doughnut Dough Mixer: SANCHEZ Interpreting Phy: Kirill Rainey M.D. Diagnosis: CLEAR CELL RENAL CARCINAMA C64.2 Ordering Phy: Hunter Dao D.O. Service Date: 03/09/17 Admit Date: 03/09/17 MNE: [id number] CONF: DICTATED BY: Kirill Rainey M.D.]] CC: Hunter Dao D.O. Long, Ronald M.D. Endcc: [~ rep ct add3]] ABDOMEN 2VIEW W/PA CHEST RTN CLINICAL HISTORY: CLEAR CELL RENAL CARCIN AMA C64.2 COMPARISON STUDY: 11/23/2016 FINDINGS: The soft tissues, psoas shadows, renal outlines and intestinal gas pattern appear normal. There is no evidence for bowel obstruction. There is no evidence for free intraperitoneal air. No abnormal abdominal calcifications are seen. A frontal view of the chest was performed and is unremarkable. IMPRESSION: Normal study. The above report was generated using voice recognition software. It may contain grammatical, syntax or spelling errors. Electronically signed by: Kirill Rainey M.D. 03/09/2017 2:11 PM Dictated Date/Time: 03/09/2017 2:11 PM The status of this report is Signed. Draft = Not yet reviewed or approved by Radiologist. Signed = Reviewed and approved by Radiologist. <AttendingPhy>Hunter Dao D.O.</AttendingPhy> <FamilyPhy>Salvador Muller M.D.</FamilyPhy> <PrimaryPhy>Salvador Muller M.D.</PrimaryPhy> <UnitNumber> [id number]</UnitNumber> <VisitNumber>[id number]</VisitNumber> <PatientName> CHANO ANDERSON</PatientName> <DateOfBirth>1955</DateOfBirth> <Location> [facility]</Location> <ServiceDate>03/09/17</ServiceDate> <MNE>ESINDI</MNE> < OrderingPhy>Hunter Dao D.O.</OrderingPhy> <OrderingPhyMNE>f rep ord dr caldera</OrderingPhyMNE> <DictatingPhyMNE>f rep dict dr caldera</DictatingPhyMNE> < CCListMNE>f rep ct mne</CCListMNE> <AdmittingPhyMNE>f pt admit dr caldera</ AdmittingPhyMNE> <AttendingPhyMNE>f pt attend dr caldera</AttendingPhyMNE> <ConsultingPhyMNE>f pt consult dr caldera</ConsultingPhyMNE> <FamilyPhyMNE>f pt fam dr caldera</FamilyPhyMNE> <OtherPhyMNE>f pt other dr caldera</OtherPhyMNE> < PrimaryPhyMNE>f pt prim care dr caldera</PrimaryPhyMNE> <ReferringPhyMNE>f pt referring dr caldera</ReferringPhyMNE> Impression Assessment and Plan 61 y/o male with a history of renal cell carcinoma, HTN, HLD, DM II, CKD stage IV, asthma, anemia, anxiety and depression, and BPH who presented for direct admission from the [facility] on 03/09 with abdominal pain x 2 days. Abdominal pain, possible colitis associated with Opdivo -Admit to med/surg -CBC w/diff, PRP, liver profile, magnesium and lipase now -CT abdomen/pelvis with oral contrast to assess for perforation. Pt allergic to iodine contrast, will give barium -Abdomen/chest x-ray showed no acute disease, no free air -If no perforation/peritonitis on CT, can start Solu-Medrol 80 mg IV qd -Morphine 4 mg IV q4h prn pain -Stool culture and C diff when able Chest pain -Troponin now -EKG stat Renal cell carcinoma s/p left nephrectomy 10/22/15 -Consult oncology. Pt follows with Dr. Dao who had referred for direct admit. Spoke to Dr. Dao, who believes this is most likely colitis caused by Opdivo. Recommends 1 mg/kg of Solu-Medrol per day until things calm down, then can discharge on Prednisone 60 mg PO qd -Pt takes Opdivo [id number], last dose 03/03 HTN--stable -Continue amlodipine 10 mg PO qd and atenolol 50 mg PO qd HLD -Continue simvastatin 20 mg PO qd DM II--last HgbA1c checked 11/10/16 was 6.3 -Continue Lantus 14 units SC qpm for now. Will likely require more if IV steroids added -Insulin sliding scale -Check BSGs q ac and qhs -Recheck HgbA1c CKD stage IV--baseline creatinine 3.2-3.4 -PRP pending Asthma--currently not on any treatment for this, pt states he is intermittently placed on inhalers but denies any SOB/wheezing now Anemia--baseline Hgb around 11 -CBC pending -Continue ferrous sulfate 325 mg PO BID Anxiety and depression -Continue Lexapro 10 mg PO qd BPH -Continue terazosin 5 mg PO qd DVT prophylaxis -Heparin 5000 units SC q12h -MONTY contreras and MELLs Code Status -Level I, FULL RESUSCITATION STATUS PA Physician Supervision Note: I interviewed and examined the patient. Discussed with Amanda CAR and agree with findings and plan as documented in the note. Any exceptions or clarifications are listed here: None Patient with metastatic renal cell carcinoma here with diffuse abdominal pain the patient is on Opdovo and Dr. Dao feels this may be related to the medication. The patient however feels that this is similar to a previous concern for bowel perforation, since that is a side effect of the medication and urgent CT scan of the abdomen with oral consciousness be undertaken if this is negative for any free air or other abdominal pathology this may be related to the medication and prednisone therapy to treat colitis will be undertaken Patient is in moderate pain signs are stable Abdomen is with hyperactive bowel sounds diffusely tender some rebound quality but no rigid abdomen sign heart is regular without murmurs or rubs lungs are clear Diffuse abdominal pain in the patient on OPDIVO therapy We'll rule out perforated viscus or other intra-abdominal pathology elevated he does have metastatic cancer if so is ruled out we'll begin intravenous steroid therapy 1 mg/kg. If concern for other pathology consideration of antibiotics to cover intra-abdominal organisms such as Cipro and Flagyl will be undertaken Chronic kidney disease stage IV, the patient be hydrated and this will be followed this is prevent use of intravenous contrast as well as his intravenous contrast allergy DVT prevention is renal dose heparin Documented By: Greyson Mabry Level of Care Med/Surg Resuscitation Status FULL RESUSCITATION VTE Prophylaxis VTE Risk Assessment Done? Y/N: Yes Risk Level: Moderate Given or contraindicated: Unfractionated heparin SQ, T.E.D. Stockings, SCD's
[2017-03-09 15:31] LABS: MEAN CELL VOLUME 81.2 fL (80-100); MEAN CORPUSCULAR HEMOGLOBIN 27.4 pg (25-34); MEAN CORPUSCULAR HGB CONC 33.7 g/dl (32-36); MEAN PLATELET VOLUME 10.1 fL (7.4-10.4); PLATELET COUNT 184 K/uL (130-400); RED BLOOD COUNT 4.31 M/uL (4.7-6.1); WHITE BLOOD COUNT 12.37 K/uL (4.8-10.8)
[2017-03-09] MEDS: MoRPHine SULFATE 4 MG/ML 1 ML CARP\\VIAL IV PRN ×3 (15:36→23:32)
[2017-03-09] MEDS ORDERED: NIVO1INJ IV (15:41)
[2017-03-09 15:49] LABS: BUN/CREATININE RATIO 11.2 (10-20); CALCIUM 9.6 mg/dl (8.5-10.1); CREATININE 3.3 mg/dl (0.60-1.40); MAGNESIUM 2.6 mg/dl (1.8-2.4); POTASSIUM 3.7 mmol/L (3.5-5.1)
--- NOTE | 2017-03-09 15:52 | Oncology Consultation ---
Oncology/Heme Consultation Date of Consultation: Mar 09, 2017. Attending Physician: Greyson Mabry M.D. Reason for Consultation: Abdominal pain with history of renal cell carcinoma History of Present Illness Mr. Christy is a 61-year-old gentleman with a history of left renal cell carcinoma resected in September 2015. Many lymph nodes were involved. He was observed for a short while but new adenopathy would appear and he was first treated with sutent but tolerated this poorly. More recently he has been treated with immunotherapy namely nivolumab. He presents today with a 2-3 day history of diffuse abdominal discomfort. He does not have a background history of peptic ulcer disease. He states his stools have been somewhat loose. He has also had some mild nausea. He denies any fever or chills. Past Medical/Surgical History Medical Problems: (1) Acute dyspnea Status: Acute (2) Chronic kidney disease Status: Acute (3) Renal cell carcinoma Status: Acute Family History Cervical cancer Diabetes mellitus Heart disease Hypertension Myocardial infarction Pancreatic cancer Prostate cancer Social History Smoking Status: Never Smoker Smokeless Tobacco Use: No Alcohol Use: none Drug Use: none Marital Status: single Occupation Status: retired Allergies Coded Allergies: Iodinated Diagnostic Agents (Verified Allergy, Unknown, oil based, severe headaches, 10/27/16) EVENT OCCURED IN 1971, PT STATES HE HAS HAD 3 DIFFERENT WATER BASED IVP DYES WITH NO ISSUE Home Medications Scheduled Amlodipine (Norvasc), 10 MG PO DAILY Atenolol (Tenormin), 50 MG PO DAILY Docusate Sodium (Colace), 1 CAP PO BID Escitalopram (Lexapro), 10 MG PO DAILY Furosemide (Lasix), 40 MG PO DAILY Insulin Glargine (Lantus), 14 SC QPM Insulin Lispro (Human) (Humalog Kwikpen), 10-20 SC AFTER DINNER Lisinopril (Prinivil), 40 MG PO QAM Nivolumab (Opdivo), 40 MG IV Q14D Simvastatin (Zocor), 20 MG PO QPM Terazosin (Hytrin), 5 MG PO HS [Aspirin], 81 MG PO DAILY Scheduled PRN [Tylenol #4], 1 TAB PO q4-6 hours PRN for Pain Current Inpatient Medications Current Inpatient Medications Medications (Trade) Dose Ordered Sig/Edward Route Start Time Stop Time Status Last Admin Dose Admin Acetaminophen (Tylenol Tab) 650 mg Q4H PRN PO 03/09/17 15:00 04/08/17 14:59 Al Hydrox/Mg Hydrox/Simethicone (Maalox Max Susp) 15 ml Q4H PRN PO 03/09/17 15:00 04/08/17 14:59 Magnesium Hydroxide (Milk Of Magnesia Susp) 30 ml Q6H PRN PO 03/09/17 15:00 04/08/17 14:59 Polyethylene (Miralax Powder Packet) 17 gm DAILY PRN PO 03/09/17 15:00 04/08/17 14:59 Ondansetron HCl (Zofran Inj) 4 mg Q6H PRN IV 03/09/17 15:00 04/08/17 14:59 Heparin Sodium (Porcine) (Heparin Sq 5000 Unit/0.5ml) 5,000 unit Q12H SQ 03/09/17 15:00 04/08/17 14:59 UNV Insulin Glargine (Lantus Solostar Pen) 14 units QPM SC 03/09/17 21:00 04/08/17 20:59 Insulin Aspart (novoLOG ASPART) SLIDING SCALE If C... ACHS SC 03/09/17 16:30 04/08/17 16:29 Glucose (Glucose 40% Gel) 15-30 GRAMS 15 GRAMS... UD PRN PO 03/09/17 15:00 04/08/17 14:59 Glucose (Glucose Chew Tab) 4-8 Tablets 4 Tabl... UD PRN PO 03/09/17 15:00 04/08/17 14:59 Dextrose (Dextrose 50% 50ML Syringe) 25-50ML OF 50% DW IV FOR... UD PRN IV 03/09/17 15:00 04/08/17 14:59 Glucagon (Glucagon Inj) 1 mg UD PRN SQ 03/09/17 15:00 04/08/17 14:59 Methylprednisolone Sodium Succinate 80 mg/Syringe 1.28 ml @ 1.5 mls/min DAILY@1600 IV 03/09/17 16:00 04/08/17 15:59 Morphine Sulfate (MoRPHine SULFATE INJ) 4 mg Q4H PRN IV 03/09/17 15:00 03/23/17 14:59 03/09/17 15:36 4 MG Amlodipine Besylate (Norvasc Tab) 10 mg DAILY PO 03/10/17 08:00 04/09/17 07:59 UNV Atenolol (Tenormin Tab) 50 mg DAILY PO 03/10/17 08:00 04/09/17 07:59 UNV Docusate Sodium (coLACE CAP) 100 mg BID PO 03/09/17 20:00 04/08/17 19:59 UNV Escitalopram Oxalate (Lexapro Tab) 10 mg DAILY PO 03/10/17 08:00 04/09/17 07:59 UNV Furosemide (Lasix Tab) 40 mg DAILY PO 03/10/17 08:00 04/09/17 07:59 UNV Lisinopril (Zestril Tab) 40 mg QAM PO 03/10/17 08:00 04/09/17 07:59 UNV Simvastatin (Zocor Tab) 20 mg QPM PO 03/09/17 21:00 04/08/17 20:59 UNV Terazosin HCl (Hytrin Cap) 5 mg HS PO 03/09/17 21:00 04/08/17 20:59 UNV Aspirin (Ecotrin Tab) 81 mg QAM PO 03/10/17 08:00 04/09/17 07:59 UNV Review of Systems Constitutional: Negative for weight loss, night sweats, or fever Eyes: Negative for event change of vision ENT: Negative for epistaxis, nasal discharge, sore throat, or deafness Cardiovascular: Negative for chest pain, palpitations, dizziness, diaphoresis Respiratory: Negative for new shortness of breath,hemoptysis, or purulent cough Gastrointestinal: He has had rather diffuse abdominal discomfort. He states that he has had occasional loose stool. He also states that parenthetically stools were checked for blood earlier this week and apparently were positive. Integumentary (skin): Negative for rash or jaundice discoloration Genitourinary: Negative for urinary frequency, hematuria, or dysuria Neurological: Negative for weakness, seizure activity, headache, or dizziness Lymphatic/Hematologic: Negative for petechiae, bleeding or new adenopathy Musculoskeletal: Negative for new joint or back pain Allergic/Immunologic: Negative for unusual rash or pruritis. Physical Exam Date Time Temp Pulse Resp B/P (MAP) Pulse Ox O2 Delivery O2 Flow Rate FiO2 03/09/17 15:13 37.0 72 18 175/75 (108) 99 Room Air 03/09/17 15:09 37.0 73 20 175/75 03/09/17 14:45 37.0 73 20 175/75 99 Room Air Constitutional: vitals are stable. He does appear uncomfortable due to his abdominal pain Eyes: Eyes are YSABEL EOMI without conjuctival erythema or icterus. ENT: External examination was negative for masses. Neck: Negative for masses or palpable thyromegaly Respiratory: Lung sounds were generally clear bilaterally Cardiovascular: Heart was RRR without significant murmur, gallops or rubs Gastrointestinal: No palpable hepatic or splenomegaly. The abdomen was generally tender with just mild percussion to palpation. Bowel sounds were increased Lymphatic system: there was no palpable peripheral lymphadenopathy Musculoskeletal System: The musculoskeletal system seemed concordant with age. Skin: The skin was negative for jaundice. Neurologic exam: The exam was negative for any focal findings. Deep tendon reflexes were equal and symmetrical. Psychiatric exam: Was essentially negative with normal mood and effect. Extremities: Negative for edema erythema Laboratory Results Last 24 Hours Test 03/09/17 15:10 03/09/17 15:11 White Blood Count 12.37 K/uL Red Blood Count 4.31 M/uL Hemoglobin 11.8 g/dL Hematocrit 35.0 % Mean Corpuscular Volume 81.2 fL Mean Corpuscular Hemoglobin 27.4 pg Mean Corpuscular Hemoglobin Concent 33.7 g/dl Platelet Count 184 K/uL Mean Platelet Volume 10.1 fL RDW Standard Deviation 43.2 fL RDW Coefficient of Variation 14.4 % Assessment & Plan Metastatic renal cell carcinoma being treated with immunotherapy. He has developed diffuse abdominal pain and I suspect that he is experiencing colitis secondary to the immunotherapy. Flat plate and upright of his abdomen is really unremarkable. Blood work is acceptable. For now I believe that he should be approach with parenteral steroids until it appears that he can swallow prednisone safely and easily. The dose is usually a milligram per kilogram of steroid (Solu-Medrol in this case). Once his abdomen has quieted down then he can be switched to prednisone orally 60-80 mg a day and we will gradually taper him off as an outpatient in our clinic.
[2017-03-09 15:56] LABS: BASO % 0.1 %; BASO ABS # 0.01 K/uL (0-0.2); COMPLETE YES; EOS % 0.2 %; IG% 0.3 %; LYMPH % 7.9 %; LYMPH ABS # 0.98 K/uL (1.2-3.4); NEUT % 81.5 %
[2017-03-09 15:59] VITALS: O2SAT 99
[2017-03-09] MEDS ORDERED: METHYLPREDNISOLONE IV 80 MG in SYRINGE 0 ML IV SCH (16:00)
[2017-03-09] MEDS ORDERED: CALC1CAP36 PO (16:01)
[2017-03-09] MEDS ORDERED: FRRS300 PO (16:01)
[2017-03-09 16:16] LABS: ALKALINE PHOSPHATASE 64 U/L (45-117); ALT/SGPT 14 U/L (12-78); AST/SGOT 11 U/L (15-37)
[2017-03-09 16:18] LABS: PROTHROMBIN TIME (PATIENT) 10.2 SECONDS (9.0-12.0)
[2017-03-09] MEDS: INSULIN ASPART 100 UNITS/ML 3 ML PEN SC SCH ×2 (17:00→21:00)
[2017-03-09] MEDS: HEPARIN SOD 5000 UNIT/0.5 ML CARP SQ SCH (18:36)
--- NOTE | 2017-03-09 19:46 | DIAGNOSTIC IMAGING REPORT ---
CT SCAN OF THE ABDOMEN AND PELVIS WITHOUT IV CONTRAST CLINICAL HISTORY: Generalized abdominal pain. COMPARISON STUDY: Abdominal CT dated 12/02/2016. TECHNIQUE: CT scan of the abdomen and pelvis is performed from the lung bases to the proximal femora. Images are reviewed in the axial, sagittal, and coronal planes. IV contrast was not administered for this examination as per the referring clinician. Note that the examination was performed in significantly suboptimal fashion without IV contrast. Oral contrast was utilized.. Automated dose control exposure was utilized. A dose lowering technique was utilized adhering to the principles of ALARA. CT DOSE: 821.42 mGycm FINDINGS: Lung bases: The heart is normal in size and without pericardial effusion. Emphysema is suggested. There are small right and trace left pleural effusions with bibasilar atelectasis. Liver: The unenhanced liver is normal in size, contour, and attenuation. There is no intrahepatic biliary ductal dilatation. Gallbladder: Unremarkable. Spleen: Normal in size and attenuation. Pancreas: The unenhanced pancreas demonstrate moderate glandular atrophy and is grossly unremarkable. Adrenal glands: The left adrenal gland is not identified and presumed surgically absent. The right adrenal gland is normal in appearance. Kidneys: The Left kidney is surgically absent. No abnormality is identified in the nephrectomy bed. The unenhanced right kidney demonstrate cortical atrophy and is without hydronephrosis. There are no right renal calculi identified. A 3.2 cm exophytic cyst is again seen arising from the upper pole of the right kidney. Additional smaller cysts are noted. There are complex renal lesions identified. An indeterminant hyperdense lesion in the interpolar right kidney seen on image #212 has increased in size from 12/02/2016. This now measures 4.0 cm (previously measured 3.4 cm). An additional hyperdense lesion is seen on image #164. These lesions cannot be further characterized without IV contrast. Abdominal vasculature: The abdominal aorta is normal in course and caliber noting moderate to advanced atherosclerotic calcification. Bowel: There are postoperative changes from sigmoid colon resection with colocolonic anastomosis. No bowel obstruction is seen. There is advanced diverticulosis of the remaining colon without CT evidence of acute diverticulitis. Moderate colonic fecal retention is observed. The appendix is well-visualized and normal. Peritoneum: There is no intraperitoneal free air or abdominal ascites. There is a small fat-containing umbilical hernia. Lymphadenopathy: Enlarged retroperitoneal and retrocrural lymph nodes have increased in size from 12/02/2016. An aortocaval node on image #179 measures 2.5 x 2.5 cm (previously measuring up to 2.0 cm). A retrocrural node on image #132 measures 1.7 cm in short axis Pelvic viscera: The prostate gland is mildly enlarged and heterogeneous, noting median lobe hypertrophy. Although decompressed, the bladder wall appears thickened and trabeculated suggesting chronic outlet obstruction. Skeletal structures: There are small indeterminate lucencies again seen in the right anterior sixth rib and in the right ilium. These are similar to previous. There is mild lumbosacral spondylosis. IMPRESSION: 1. Suboptimal examination without IV contrast. 2. There are no acute infectious or inflammatory findings in the abdomen or pelvis. 3. There are postoperative changes from sigmoid colon resection with colocolonic anastomosis. No bowel obstruction is identified. 4. There is advanced diverticulosis of the remaining colon without CT evidence of acute diverticulitis. 5. Enlarging retrocrural and retroperitoneal lymphadenopathy consistent with metastatic disease. 6. The left kidney is surgically absent. 7. There is an enlarging indeterminant/hyperdense lesion in the right kidney as compared to 12/02/2016. See above. 8. Small right and trace left pleural effusions. 9. Additional findings as above. Electronically signed by: Dieter Jensen M.D. 03/09/2017 7:45 PM Dictated Date/Time: 03/09/2017 7:32 PM
[2017-03-09 19:55] VITALS: BP 171/75; PULSE 76; TEMP 37.3; O2SAT 96
[2017-03-09 20:00] VITALS: O2SAT 96
[2017-03-09] MEDS: DOCUSATE SODIUM 100 MG CAP PO SCH (20:08)
[2017-03-09] MEDS: FERROUS SULFATE 325 MG TAB PO SCH (20:08)
[2017-03-09] MEDS: SIMVASTATIN 20 MG TAB PO SCH (20:09)
[2017-03-09] MEDS: INSULIN GLARGINE SOLOSTAR 100 UNITS/ML 3 ML PEN SC SCH (22:02)
[2017-03-10] VITALS (8 sets, daily range): BP systolic 151–178; BP diastolic 68–81; PULSE 68–75; TEMP 36.7–37.2; O2SAT 96–97; BMI 25.7
[2017-03-10] MEDS: MoRPHine SULFATE 4 MG/ML 1 ML CARP\\VIAL IV PRN ×4 (03:46→19:06)
[2017-03-10 06:27] LABS: ESTIMATED AVERAGE GLUCOSE 157 mg/dl; HA1C FLAG Normal (Normal)
[2017-03-10] MEDS: FERROUS SULFATE 325 MG TAB PO SCH ×2 (07:41→20:31)
[2017-03-10] MEDS: CALCITRIOL 0.25 MCG CAP PO SCH (07:41)
[2017-03-10] MEDS: DOCUSATE SODIUM 100 MG CAP PO SCH ×2 (07:41→20:31)
[2017-03-10] MEDS: FUROSEMIDE 40 MG TAB PO SCH (07:42)
[2017-03-10] MEDS: ASPIRIN 81 MG ECTAB PO SCH (07:42)
[2017-03-10] MEDS: INSULIN ASPART 100 UNITS/ML 3 ML PEN SC SCH ×4 (07:42→20:42)
[2017-03-10] MEDS: LISINOPRIL 40 MG TAB PO SCH (07:42)
[2017-03-10 07:43] LABS: HEMATOCRIT 33.9 % (42-52); MEAN CELL VOLUME 81.1 fL (80-100); MEAN CORPUSCULAR HEMOGLOBIN 26.8 pg (25-34); MEAN PLATELET VOLUME 9.6 fL (7.4-10.4); PLATELET COUNT 187 K/uL (130-400); RED BLOOD COUNT 4.18 M/uL (4.7-6.1); WHITE BLOOD COUNT 10.76 K/uL (4.8-10.8)
[2017-03-10] MEDS: HEPARIN SOD 5000 UNIT/0.5 ML CARP SQ SCH ×2 (07:47→20:41)
[2017-03-10] MEDS: ESCITALOPRAM OXALATE 10 MG TAB PO SCH (07:48)
[2017-03-10] MEDS ORDERED: AMLODIPINE BESYLATE 5 MG TAB PO SCH (08:00)
[2017-03-10 08:10] LABS: BUN/CREATININE RATIO 11.2 (10-20); CALCIUM 9.3 mg/dl (8.5-10.1); CREATININE 3.3 mg/dl (0.60-1.40); POTASSIUM 3.6 mmol/L (3.5-5.1)
[2017-03-10] MEDS ORDERED: NURSING DECISION MEDICATION ORDER SCH (08:30)
[2017-03-10] MEDS: METHYLPREDNISOLONE IV 80 MG in SYRINGE 0 ML IV SCH (09:35)
--- NOTE | 2017-03-10 11:27 | Progress Note ---
Subjective Date of Service: Mar 10, 2017. Subjective pt state he feels slightly better than on admission, he was glad that his CT scan did no show any additional concern, he did tolerate liquid diet for breakfast but still is painful to move, little bowel movement at this point Problem List Medical Problems: (1) Acute dyspnea Status: Acute (2) Chronic kidney disease Status: Acute (3) Renal cell carcinoma Status: Acute Review of Systems Constitutional: + weakness, + fatigue, No fever, No chills Respiratory: No cough, No sputum, No wheezing, No shortness of breath Cardiac: No chest pain, No orthopnea, No edema Abdomen: + pain, + nausea, No vomiting, No diarrhea, No constipation Male : No dysuria, No urinary frequency Psychiatric: No depression symptoms, No anhedonism Objective Vital Signs Date Time Temp Pulse Resp B/P (MAP) Pulse Ox O2 Delivery O2 Flow Rate FiO2 03/10/17 11:11 37.2 71 16 171/79 (109) 96 Room Air 03/10/17 08:00 Room Air 03/10/17 07:49 37.0 69 16 166/81 (109) 97 Room Air 03/10/17 04:14 37.2 70 20 178/73 (108) 96 Room Air 03/10/17 00:11 37.0 72 16 157/72 (100) 96 Room Air 03/10/17 00:00 96 Room Air 03/09/17 20:00 96 Room Air 03/09/17 19:55 37.3 76 18 171/75 (107) 96 Room Air 03/09/17 15:59 99 Room Air 03/09/17 15:13 37.0 72 18 175/75 (108) 99 Room Air 03/09/17 15:09 37.0 73 20 175/75 03/09/17 14:45 37.0 73 20 175/75 99 Room Air Physical Exam General Appearance: WD/WN, + moderate distress Neck: supple, no JVD Respiratory/Chest: chest non-tender, lungs clear, normal breath sounds Cardiovascular: regular rate, rhythm, no murmur Abdomen: + abnormal bowel sounds, + guarding, + tenderness Extremities: no pedal edema, no calf tenderness Neurologic/Psychiatric: alert, oriented x 3 Laboratory Results Last 24 Hours Test 03/09/17 15:10 03/09/17 15:55 03/09/17 16:33 03/09/17 21:14 White Blood Count 12.37 K/uL Red Blood Count 4.31 M/uL Hemoglobin 11.8 g/dL Hematocrit 35.0 % Mean Corpuscular Volume 81.2 fL Mean Corpuscular Hemoglobin 27.4 pg Mean Corpuscular Hemoglobin Concent 33.7 g/dl Platelet Count 184 K/uL Mean Platelet Volume 10.1 fL Neutrophils (%) (Auto) 81.5 % Lymphocytes (%) (Auto) 7.9 % Monocytes (%) (Auto) 10.0 % Eosinophils (%) (Auto) 0.2 % Basophils (%) (Auto) 0.1 % Neutrophils # (Auto) 10.07 K/uL Lymphocytes # (Auto) 0.98 K/uL Monocytes # (Auto) 1.24 K/uL Eosinophils # (Auto) 0.03 K/uL Basophils # (Auto) 0.01 K/uL RDW Standard Deviation 43.2 fL RDW Coefficient of Variation 14.4 % Immature Granulocyte % (Auto) 0.3 % Immature Granulocyte # (Auto) 0.04 K/uL Sodium Level 137 mmol/L Potassium Level 3.7 mmol/L Chloride Level 101 mmol/L Carbon Dioxide Level 29 mmol/L Anion Gap 7.0 mmol/L Blood Urea Nitrogen 37 mg/dl Creatinine 3.30 mg/dl Est Creatinine Clear Calc Drug Dose 23.7 ml/min Estimated GFR () 21.8 Estimated GFR (Non- 18.8 BUN/Creatinine Ratio 11.2 Random Glucose 130 mg/dl Estimated Average Glucose 157 mg/dl Hemoglobin A1c 7.1 % Calcium Level 9.6 mg/dl Magnesium Level 2.6 mg/dl Total Bilirubin 0.5 mg/dl Direct Bilirubin 0.1 mg/dl Aspartate Amino Transf (AST/SGOT) 11 U/L Alanine Aminotransferase (ALT/SGPT) 14 U/L Alkaline Phosphatase 64 U/L Troponin I < 0.015 ng/ml Total Protein 6.8 gm/dl Albumin 2.8 gm/dl Lipase 85 U/L Prothrombin Time 10.2 SECONDS Prothromb Time International Ratio 1.0 Bedside Glucose 120 mg/dl 154 mg/dl Test 03/10/17 07:29 03/10/17 07:36 White Blood Count 10.76 K/uL Red Blood Count 4.18 M/uL Hemoglobin 11.2 g/dL Hematocrit 33.9 % Mean Corpuscular Volume 81.1 fL Mean Corpuscular Hemoglobin 26.8 pg Mean Corpuscular Hemoglobin Concent 33.0 g/dl RDW Standard Deviation 43.1 fL RDW Coefficient of Variation 14.4 % Platelet Count 187 K/uL Mean Platelet Volume 9.6 fL Sodium Level 137 mmol/L Potassium Level 3.6 mmol/L Chloride Level 100 mmol/L Carbon Dioxide Level 29 mmol/L Anion Gap 8.0 mmol/L Blood Urea Nitrogen 37 mg/dl Creatinine 3.30 mg/dl Est Creatinine Clear Calc Drug Dose 23.7 ml/min Estimated GFR () 21.8 Estimated GFR (Non- 18.8 BUN/Creatinine Ratio 11.2 Random Glucose 90 mg/dl Calcium Level 9.3 mg/dl Bedside Glucose 104 mg/dl Assessment and Plan 61 y/o male with a history of renal cell carcinoma, s/p resection with metastatis, with suspected opdivo induced peritonitis Abdominal pain, possible colitis associated with Opdivo -CT without bowel perforation or obstruction, continue Solu-Medrol 80 mg IV qd, advance diet -Morphine 4 mg IV q4h prn pain Renal cell carcinoma s/p left nephrectomy 10/22/15 HTN--slightly elevated, continue amlodipine 10 mg PO qd and atenolol 50 mg PO qd , lisinopril and terazosin DM II--last HgbA1c 11/07 was 6.3, follow closely as with limited po intake -Insulin sliding scale CKD stage IV--baseline creatinine 3.2-3.4 Anemia-likely of chronic disease and renal disease-baseline Hgb around 11e ferrous sulfate 325 mg PO BID Anxiety and depression Lexapro 10 mg PO qd BPH terazosin 5 mg PO qd DVT prophylaxis-Heparin 5000 units SC q12h
--- NOTE | 2017-03-10 16:29 | Hematology/Oncology Prog Note ---
Hematology/Onc Progress Note Date of Service Mar 10, 2017. Diagnoses Metastatic renal cell carcinoma Abdominal pain Medications Medications Administered Medications (Trade) Dose Ordered Sig/Edward Route Start Time Stop Time Status Last Admin Dose Admin Heparin Sodium (Porcine) (Heparin Sq 5000 Unit/0.5ml) 5,000 unit Q12 SQ 03/09/17 17:00 04/08/17 16:59 03/10/17 07:47 5,000 UNIT Insulin Glargine (Lantus Solostar Pen) 14 units QPM SC 03/09/17 21:00 04/08/17 20:59 03/09/17 22:02 14 UNITS Morphine Sulfate (MoRPHine SULFATE INJ) 4 mg Q4H PRN IV 03/09/17 15:00 03/23/17 14:59 03/10/17 13:25 4 MG Atenolol (Tenormin Tab) 50 mg DAILY PO 03/10/17 08:00 04/09/17 07:59 03/10/17 07:42 50 MG Docusate Sodium (coLACE CAP) 100 mg BID PO 03/09/17 20:00 04/08/17 19:59 03/10/17 07:41 100 MG Furosemide (Lasix Tab) 40 mg DAILY PO 03/10/17 08:00 04/09/17 07:59 03/10/17 07:42 40 MG Lisinopril (Zestril Tab) 40 mg QAM PO 03/10/17 08:00 04/09/17 07:59 03/10/17 07:42 40 MG Simvastatin (Zocor Tab) 20 mg QPM PO 03/09/17 21:00 04/08/17 20:59 03/09/17 20:09 20 MG Terazosin HCl (Hytrin Cap) 5 mg HS PO 03/09/17 21:00 04/08/17 20:59 03/09/17 20:09 5 MG Aspirin (Ecotrin Tab) 81 mg QAM PO 03/10/17 08:00 04/09/17 07:59 03/10/17 07:42 81 MG Calcitriol (Rocaltrol Cap) 0.25 mcg MoWeFr@0800 PO 03/10/17 08:00 04/09/17 07:59 03/10/17 07:41 0.25 MCG Ferrous Sulfate (Feosol Tab) 325 mg BID PO 03/09/17 20:00 04/08/17 19:59 03/10/17 07:41 325 MG Methylprednisolone Sodium Succinate 80 mg/Syringe 1.28 ml @ 1.5 mls/min DAILY IV 03/10/17 09:00 04/08/17 15:59 03/10/17 09:35 1.5 MLS/MIN Subjective Mr. Christy is feeling better today. His abdomen is still sore, but it is better than yesterday. He denies any diarrhea or hematochezia. He also denies fevers, chills, or sweats. Review of Systems: Constitutional: No fever, No chills Respiratory: No cough, No shortness of breath Cardiovascular: No chest pain Abdomen: + pain, No diarrhea, No GI bleeding Musculoskeletal: No joint pain, No muscle pain Male : No dysuria Heme: No abnormal bleeding/bruising Skin: No rash Vital Signs Vital Signs Past 12 Hours Date Time Temp Pulse Resp B/P (MAP) Pulse Ox O2 Delivery O2 Flow Rate FiO2 03/10/17 16:00 Room Air 03/10/17 15:34 36.9 75 18 175/76 (109) 96 Room Air 03/10/17 11:11 37.2 71 16 171/79 (109) 96 Room Air 03/10/17 08:00 Room Air 03/10/17 07:49 37.0 69 16 166/81 (109) 97 Room Air Physical Exam Constitutional: General Apperance: heathly-appearing Level of Distress: NAD Psychiatric: Mental Status: active & alert Orientation: oriented except where noted Lungs: Auscuitation: CTA except as noted Cardiovascular: Heart Auscultation: RRR Abdomen: Inspection & Palpation: soft, LUQ tenderness (mildly, diffusely tender in all quadrants, no guarding or reboung) Extremities: no edema Laboratory Last 24 Hours Test 03/09/17 16:33 03/09/17 21:14 03/10/17 07:29 03/10/17 07:36 Bedside Glucose 120 mg/dl 154 mg/dl 104 mg/dl White Blood Count 10.76 K/uL Red Blood Count 4.18 M/uL Hemoglobin 11.2 g/dL Hematocrit 33.9 % Mean Corpuscular Volume 81.1 fL Mean Corpuscular Hemoglobin 26.8 pg Mean Corpuscular Hemoglobin Concent 33.0 g/dl RDW Standard Deviation 43.1 fL RDW Coefficient of Variation 14.4 % Platelet Count 187 K/uL Mean Platelet Volume 9.6 fL Sodium Level 137 mmol/L Potassium Level 3.6 mmol/L Chloride Level 100 mmol/L Carbon Dioxide Level 29 mmol/L Anion Gap 8.0 mmol/L Blood Urea Nitrogen 37 mg/dl Creatinine 3.30 mg/dl Est Creatinine Clear Calc Drug Dose 23.7 ml/min Estimated GFR () 21.8 Estimated GFR (Non- 18.8 BUN/Creatinine Ratio 11.2 Random Glucose 90 mg/dl Calcium Level 9.3 mg/dl Test 03/10/17 11:50 Bedside Glucose 117 mg/dl Assessment & Plan Mr. Christy appears to be improving with steroids. His presentation is somewhat atypical for immune-related colitis, which generally presents with watery diarrhea. His CT does not reveal convincing evidence of another etiology, however, and he does seem to be improving with steroids. His scans also show very modest progression of disease. At this point, I think it is reasonable to continue with steroids. Once his pain resolves, we can transition him to an oral regimen. He will require a prolonged taper and will need to be discharged on prophylactic Bactrim for PCP prophylaxis. Once an outpatient, he will need to speak with Dr. Dao about other options for treating his disease.
[2017-03-10] MEDS: AMLODIPINE BESYLATE 5 MG TAB PO SCH (20:33)
[2017-03-10] MEDS: SIMVASTATIN 20 MG TAB PO SCH (20:33)
[2017-03-10] MEDS: INSULIN GLARGINE SOLOSTAR 100 UNITS/ML 3 ML PEN SC SCH (20:41)
[2017-03-11] MEDS: MoRPHine SULFATE 4 MG/ML 1 ML CARP\\VIAL IV PRN ×4 (00:34→20:20)
[2017-03-11 05:57] LABS: HEMATOCRIT 30.7 % (42-52); MEAN CELL VOLUME 79.1 fL (80-100); MEAN CORPUSCULAR HEMOGLOBIN 26.3 pg (25-34); MEAN CORPUSCULAR HGB CONC 33.2 g/dl (32-36); PLATELET COUNT 199 K/uL (130-400); RED BLOOD COUNT 3.88 M/uL (4.7-6.1); WHITE BLOOD COUNT 9.57 K/uL (4.8-10.8)
[2017-03-11 06:23] LABS: BUN/CREATININE RATIO 13.9 (10-20); CREATININE 3.9 mg/dl (0.60-1.40); POTASSIUM 3.5 mmol/L (3.5-5.1)
[2017-03-11 06:26] VITALS: Ht 177.8 cm; Wt 82.2 kg
[2017-03-11] MEDS: INSULIN ASPART 100 UNITS/ML 3 ML PEN SC SCH ×4 (06:30→21:28)
[2017-03-11 07:35] VITALS: BP 138/75; PULSE 58; TEMP 36.6; O2SAT 96
[2017-03-11] MEDS: DOCUSATE SODIUM 100 MG CAP PO SCH ×2 (07:50→20:21)
[2017-03-11] MEDS: ASPIRIN 81 MG ECTAB PO SCH (07:50)
[2017-03-11] MEDS: FERROUS SULFATE 325 MG TAB PO SCH ×2 (07:50→20:21)
[2017-03-11] MEDS: METHYLPREDNISOLONE IV 80 MG in SYRINGE 0 ML IV SCH (07:50)
[2017-03-11] MEDS: FUROSEMIDE 40 MG TAB PO SCH (07:52)
[2017-03-11] MEDS: LISINOPRIL 40 MG TAB PO SCH (07:52)
[2017-03-11] MEDS: ESCITALOPRAM OXALATE 10 MG TAB PO SCH (07:53)
[2017-03-11 07:54] VITALS: PULSE 62
[2017-03-11] MEDS: HEPARIN SOD 5000 UNIT/0.5 ML CARP SQ SCH ×2 (09:24→21:29)
[2017-03-11] MEDS ORDERED: LEVOFLOXACIN CONSULT ACTIVE PRN (09:30)
--- NOTE | 2017-03-11 09:41 | Hospitalist Progress Note ---
Hospitalist Progress Note Date of Service Mar 11, 2017. Subjective Pt evaluation today including: conversation w/ patient, physical exam, review of inpatient medication list Pt still with abd pain and seems to be more localizing now to LLQ. He ate solid food last evening and this AM, no BM, no diarrhea. He has a h/o perforated sigmoid colon likely from acute diverticulitis requiring resection in the past and CT abd here shows advanced diverticulosis without -itis from 2 days ago. Renal function worse today and pt requesting Nephrology to see him Constitutional: No fever All Other Systems: Reviewed and Negative Objective Vital Signs Date Time Temp Pulse Resp B/P (MAP) Pulse Ox O2 Delivery O2 Flow Rate FiO2 03/11/17 08:00 Room Air 03/11/17 07:54 62 03/11/17 07:35 36.6 58 16 138/75 (96) 96 Room Air 03/11/17 01:25 Room Air 03/10/17 23:47 36.7 68 20 151/68 (95) 96 Room Air 03/10/17 19:48 36.9 70 20 169/79 (109) 97 Room Air 03/10/17 16:00 Room Air 03/10/17 15:34 36.9 75 18 175/76 (109) 96 Room Air 03/10/17 11:11 37.2 71 16 171/79 (109) 96 Room Air Physical Exam General Appearance: WD/WN, no apparent distress Eyes: normal inspection, sclerae normal ENT: hearing grossly normal Neck: trachea midline Respiratory/Chest: lungs clear, normal breath sounds, no respiratory distress, no accessory muscle use Cardiovascular: regular rate, rhythm, no edema, no gallop, no murmur Abdomen: normal bowel sounds, soft, + tenderness (mostly in LLQ with mild voluntary guarding, no rebound tenderness, abd soft otherwise) Extremities: non-tender, normal inspection, no pedal edema, no calf tenderness , + pertinent finding (2+ DP pulses bilat) Neurologic/Psychiatric: alert, normal mood/affect, oriented x 3 Skin: normal color, warm/dry, no rash Laboratory Results Last 24 Hours Test 03/10/17 11:50 03/10/17 16:22 03/10/17 19:41 03/11/17 05:42 Bedside Glucose 117 mg/dl 233 mg/dl 245 mg/dl White Blood Count 9.57 K/uL Red Blood Count 3.88 M/uL Hemoglobin 10.2 g/dL Hematocrit 30.7 % Mean Corpuscular Volume 79.1 fL Mean Corpuscular Hemoglobin 26.3 pg Mean Corpuscular Hemoglobin Concent 33.2 g/dl RDW Standard Deviation 40.4 fL RDW Coefficient of Variation 14.1 % Platelet Count 199 K/uL Mean Platelet Volume 10.0 fL Sodium Level 136 mmol/L Potassium Level 3.5 mmol/L Chloride Level 100 mmol/L Carbon Dioxide Level 31 mmol/L Anion Gap 5.0 mmol/L Blood Urea Nitrogen 54 mg/dl Creatinine 3.90 mg/dl Est Creatinine Clear Calc Drug Dose 20.0 ml/min Estimated GFR () 17.8 Estimated GFR (Non- 15.4 BUN/Creatinine Ratio 13.9 Random Glucose 127 mg/dl Calcium Level 9.0 mg/dl Test 03/11/17 07:44 Bedside Glucose 118 mg/dl Assessment and Plan 61 y/o male with a history of renal cell carcinoma, s/p resection with metastases, with suspected Opdivo induced colitis, here with abdominal pain and low grade fever at home. Abdominal pain, possible colitis associated with Opdivo. Now with pain localizing to LLQ and h/o perforated sigmoid diverticulitis with resection and advanced diverticulosis on CT scan. I have concern for developing acute diverticulitis and wonder if he just wasn't mounting an inflammatory response on imaging due to immunosuppression? Was started on Steroids for Opdivo-related colitis, but I will d/w Oncology today about my concerns and may need to hold this for risk of bowel perforation. -reduce diet back to full liquids -start renally dosed Levaquin and Flagyl -Morphine 4 mg IV q4h prn pain Renal cell carcinoma s/p left nephrectomy 10/22/15. On Opdivo, followed by Oncology -complex cystic lesions indeterminate but growing in size on rt kidney--> unclear etiology -will d/w Oncology but may need Urology consultation -Oncology recommending Bactrim prophylaxis on dc but will have to discuss with Nephrology due to renal failure HTN-improved today, continue amlodipine 10 mg PO qd and atenolol 50 mg PO qd, lisinopril and terazosin DM II--last HgbA1c 11/07 was 6.3, follow closely as with limited po intake -Insulin sliding scale Acute renal failure in setting of CKD stage IV--baseline creatinine 3.2-3.4--> now up to 3.9. COuld be prerenal from poor po intake the day prior to and day of admission -pt requesting Nephrology consultation -encouraged po fluid intake today -follow PRP -renally dose meds -avoid nephrotoxins Anemia-likely of chronic disease and renal disease-baseline Hgb around 11e ferrous sulfate 325 mg PO BID Anxiety and depression Lexapro 10 mg PO qd BPH terazosin 5 mg PO qd DVT prophylaxis-Heparin 5000 units SC q12h
[2017-03-11] MEDS ORDERED: LEVOFLOXACIN / D5W 500 MG in PREMIXED IN D5W 100 ML IV ONE (10:00)
[2017-03-11] MEDS: METRONIDAZOLE / NSS 500 MG in PREMIXED NSS 100 ML IV SCH ×2 (10:13→17:27)
--- NOTE | 2017-03-11 11:35 | Hematology/Oncology Prog Note ---
Hematology/Onc Progress Note Date of Service Mar 11, 2017. Diagnoses Metastatic renal cell carcinoma Abdominal pain Medications Medications Administered Medications (Trade) Dose Ordered Sig/Edward Route Start Time Stop Time Status Last Admin Dose Admin Heparin Sodium (Porcine) (Heparin Sq 5000 Unit/0.5ml) 5,000 unit Q12 SQ 03/09/17 17:00 04/08/17 16:59 03/11/17 09:24 5,000 UNIT Insulin Glargine (Lantus Solostar Pen) 14 units QPM SC 03/09/17 21:00 04/08/17 20:59 03/10/17 20:41 14 UNITS Insulin Aspart (novoLOG ASPART) SLIDING SCALE If C... ACHS SC 03/09/17 16:30 04/08/17 16:29 03/10/17 20:42 3 UNITS Morphine Sulfate (MoRPHine SULFATE INJ) 4 mg Q4H PRN IV 03/09/17 15:00 03/23/17 14:59 03/11/17 07:50 4 MG Atenolol (Tenormin Tab) 50 mg DAILY PO 03/10/17 08:00 04/09/17 07:59 03/11/17 07:51 50 MG Docusate Sodium (coLACE CAP) 100 mg BID PO 03/09/17 20:00 04/08/17 19:59 03/11/17 07:50 100 MG Furosemide (Lasix Tab) 40 mg DAILY PO 03/10/17 08:00 03/11/17 11:23 DC 03/11/17 07:52 40 MG Lisinopril (Zestril Tab) 40 mg QAM PO 03/10/17 08:00 03/11/17 11:23 DC 03/11/17 07:52 40 MG Simvastatin (Zocor Tab) 20 mg QPM PO 03/09/17 21:00 04/08/17 20:59 03/10/17 20:33 20 MG Terazosin HCl (Hytrin Cap) 5 mg HS PO 03/09/17 21:00 04/08/17 20:59 03/10/17 20:32 5 MG Aspirin (Ecotrin Tab) 81 mg QAM PO 03/10/17 08:00 04/09/17 07:59 03/11/17 07:50 81 MG Calcitriol (Rocaltrol Cap) 0.25 mcg MoWeFr@0800 PO 03/10/17 08:00 04/09/17 07:59 03/10/17 07:41 0.25 MCG Ferrous Sulfate (Feosol Tab) 325 mg BID PO 03/09/17 20:00 04/08/17 19:59 03/11/17 07:50 325 MG Methylprednisolone Sodium Succinate 80 mg/Syringe 1.28 ml @ 1.5 mls/min DAILY IV 03/10/17 09:00 03/11/17 10:33 DC 03/11/17 07:50 1.5 MLS/MIN Amlodipine Besylate (Norvasc Tab) 10 mg HS PO 03/10/17 21:00 04/09/17 07:59 03/10/17 20:33 10 MG Levofloxacin 500 mg/Prmx 100 ml @ 100 mls/hr NOW ONCE IV 03/11/17 10:00 03/11/17 10:59 DC 03/11/17 11:18 100 MLS/HR Metronidazole 500 mg/Prmx 100 ml @ 100 mls/hr Q8H IV 03/11/17 10:00 03/21/17 09:59 03/11/17 10:13 100 MLS/HR Subjective Mr. Christy is feeling a bit better since starting the antibiotics. His pain is about the same. He still has no diarrhea, bleeding, or fevers. Review of Systems: Constitutional: No fever, No chills Respiratory: No cough, No shortness of breath Cardiovascular: No chest pain Abdomen: + pain, No diarrhea, No GI bleeding Musculoskeletal: No joint pain, No muscle pain Male : No dysuria Heme: No abnormal bleeding/bruising Vital Signs Vital Signs Past 12 Hours Date Time Temp Pulse Resp B/P (MAP) Pulse Ox O2 Delivery O2 Flow Rate FiO2 03/11/17 08:00 Room Air 03/11/17 07:54 62 03/11/17 07:35 36.6 58 16 138/75 (96) 96 Room Air 03/11/17 01:25 Room Air 03/10/17 23:47 36.7 68 20 151/68 (95) 96 Room Air Physical Exam Constitutional: General Apperance: heathly-appearing Level of Distress: NAD Psychiatric: Mental Status: active & alert Orientation: oriented except where noted Lungs: Auscuitation: CTA except as noted Cardiovascular: Heart Auscultation: RRR Abdomen: Inspection & Palpation: soft, LLQ tenderness Extremities: no edema Laboratory Last 24 Hours Test 03/10/17 11:50 03/10/17 16:22 03/10/17 19:41 03/11/17 05:42 Bedside Glucose 117 mg/dl 233 mg/dl 245 mg/dl White Blood Count 9.57 K/uL Red Blood Count 3.88 M/uL Hemoglobin 10.2 g/dL Hematocrit 30.7 % Mean Corpuscular Volume 79.1 fL Mean Corpuscular Hemoglobin 26.3 pg Mean Corpuscular Hemoglobin Concent 33.2 g/dl RDW Standard Deviation 40.4 fL RDW Coefficient of Variation 14.1 % Platelet Count 199 K/uL Mean Platelet Volume 10.0 fL Sodium Level 136 mmol/L Potassium Level 3.5 mmol/L Chloride Level 100 mmol/L Carbon Dioxide Level 31 mmol/L Anion Gap 5.0 mmol/L Blood Urea Nitrogen 54 mg/dl Creatinine 3.90 mg/dl Est Creatinine Clear Calc Drug Dose 20.0 ml/min Estimated GFR () 17.8 Estimated GFR (Non- 15.4 BUN/Creatinine Ratio 13.9 Random Glucose 127 mg/dl Calcium Level 9.0 mg/dl Test 03/11/17 07:44 Bedside Glucose 118 mg/dl Assessment & Plan Mr. Christy isn't clearly better with steroids (he said maybe yesterday, but levelled off since). Dr. Luis started him on antibiotics, which seem to be helping more. I agree with her impression that his overall clinical picture is more consistent with acute diverticulitis. He has a history, clearly has diverticuli on CT, and his symptom profile fits better than immune colitis, which is generally characterized by profuse diarrhea. We can hold his steroids for now, but should restart them if his pain worsens acutely.
--- NOTE | 2017-03-11 11:51 | Nephrology Consultation ---
Nephrology Consultation Date & Providers Date of Consultation: Mar 11, 2017. Primary Care Provider: Salvador Muller M.D. Referring Provider: Reason for Consultation Evaluation of acute on chronic kidney injury History of Present Illness Mr. Christy is a 61 year old white male who is seen at the request of Dr. Luis for evaluation of acute on chronic kidney injury. Medical records in the hospital EMR were reviewed today and are summarized as follows: Mr. Christy was incidentally found to have a left renal mass. He underwent left radical nephrectomy 10/06. Unfortunately lymph nodes were positive for metastatic spread. Postoperatively his serum creatinine stabilized at 3.3. Mr. Chrsity was treated w/ Sutent but developed nephrotic syndrome. He was then changed to Opdivo therapy. He was seen yesterday at the Oncology office. He was experiencing diffuse abdominal discomfort. He was diagnosed with immune mediated colitis associated w/ Opdivo therapy and admitted to the hospital for steroid therapy. Serum creatinine has risen to 3.9 since admission. 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 # HTN # Anemia # AODM # Hyperlipidemia # Basal cell skin CA # Diverticulosis Surgical: # L nephrectomy 10/06 # Partial colectomy due to diverticulitis 2010 Allergies Coded Allergies: Iodinated Diagnostic Agents (Verified Allergy, Unknown, oil based, severe headaches, 10/27/16) EVENT OCCURED IN 1971, PT STATES HE HAS HAD 3 DIFFERENT WATER BASED IVP DYES WITH NO ISSUE Inpatient Medications Current Inpatient Medications Medications (Trade) Dose Ordered Sig/Edward Route Start Time Stop Time Status Last Admin Dose Admin Acetaminophen (Tylenol Tab) 650 mg Q4H PRN PO 03/09/17 15:00 04/08/17 14:59 Al Hydrox/Mg Hydrox/Simethicone (Maalox Max Susp) 15 ml Q4H PRN PO 03/09/17 15:00 04/08/17 14:59 Magnesium Hydroxide (Milk Of Magnesia Susp) 30 ml Q6H PRN PO 03/09/17 15:00 04/08/17 14:59 Polyethylene (Miralax Powder Packet) 17 gm DAILY PRN PO 03/09/17 15:00 04/08/17 14:59 Ondansetron HCl (Zofran Inj) 4 mg Q6H PRN IV 03/09/17 15:00 04/08/17 14:59 Heparin Sodium (Porcine) (Heparin Sq 5000 Unit/0.5ml) 5,000 unit Q12 SQ 03/09/17 17:00 04/08/17 16:59 03/11/17 09:24 5,000 UNIT Insulin Glargine (Lantus Solostar Pen) 14 units QPM SC 03/09/17 21:00 04/08/17 20:59 03/10/17 20:41 14 UNITS Insulin Aspart (novoLOG ASPART) SLIDING SCALE If C... ACHS SC 03/09/17 16:30 04/08/17 16:29 03/10/17 20:42 3 UNITS Glucose (Glucose 40% Gel) 15-30 GRAMS 15 GRAMS... UD PRN PO 03/09/17 15:00 04/08/17 14:59 Glucose (Glucose Chew Tab) 4-8 Tablets 4 Tabl... UD PRN PO 03/09/17 15:00 04/08/17 14:59 Dextrose (Dextrose 50% 50ML Syringe) 25-50ML OF 50% DW IV FOR... UD PRN IV 03/09/17 15:00 04/08/17 14:59 Glucagon (Glucagon Inj) 1 mg UD PRN SQ 03/09/17 15:00 04/08/17 14:59 Morphine Sulfate (MoRPHine SULFATE INJ) 4 mg Q4H PRN IV 03/09/17 15:00 03/23/17 14:59 03/11/17 07:50 4 MG Atenolol (Tenormin Tab) 50 mg DAILY PO 03/10/17 08:00 04/09/17 07:59 03/11/17 07:51 50 MG Docusate Sodium (coLACE CAP) 100 mg BID PO 03/09/17 20:00 04/08/17 19:59 03/11/17 07:50 100 MG Escitalopram Oxalate (Lexapro Tab) 10 mg DAILY PO 03/10/17 08:00 04/09/17 07:59 Furosemide (Lasix Tab) 40 mg DAILY PO 03/10/17 08:00 04/09/17 07:59 03/11/17 07:52 40 MG Lisinopril (Zestril Tab) 40 mg QAM PO 03/10/17 08:00 04/09/17 07:59 8/19/17 07:52 40 MG Simvastatin (Zocor Tab) 20 mg QPM PO 03/09/17 21:00 04/08/17 20:59 03/10/17 20:33 20 MG Terazosin HCl (Hytrin Cap) 5 mg HS PO 03/09/17 21:00 04/08/17 20:59 03/10/17 20:32 5 MG Aspirin (Ecotrin Tab) 81 mg QAM PO 03/10/17 08:00 04/09/17 07:59 03/11/17 07:50 81 MG Calcitriol (Rocaltrol Cap) 0.25 mcg MoWeFr@0800 PO 03/10/17 08:00 04/09/17 07:59 03/10/17 07:41 0.25 MCG Ferrous Sulfate (Feosol Tab) 325 mg BID PO 03/09/17 20:00 04/08/17 19:59 03/11/17 07:50 325 MG Hydralazine HCl (HydrALAZINE INJ) 10 mg Q4H PRN IV 03/09/17 22:00 04/08/17 21:59 Amlodipine Besylate (Norvasc Tab) 10 mg HS PO 03/10/17 21:00 04/09/17 07:59 03/10/17 20:33 10 MG Metronidazole 500 mg/Prmx 100 ml @ 100 mls/hr Q8H IV 03/11/17 10:00 03/21/17 09:59 03/11/17 10:13 100 MLS/HR Levofloxacin (Consult) 1 ea UD PRN N/A 03/11/17 09:30 04/10/17 09:29 Family History Cervical cancer Diabetes mellitus Heart disease Hypertension Myocardial infarction Pancreatic cancer Prostate cancer Negative for CKD/ESRD Social History Smoking Status: Never Smoker Smokeless Tobacco Use: No Alcohol Use: none Drug Use: none Marital Status: single Housing Status: lives alone Occupation: retired Single, retired. Formerly worked for [employer]. Never a smoker. Review of Systems Constitutional: No fever Cardiovascular: No chest pain Abdomen: + pain, No nausea, No vomiting Genitourinary - Male: No hematuria, No dysuria Neurologic: No weakness A complete review of systems was performed. Pertinent positives are noted above. All other systems are negative. Physical Exam Date Time Temp Pulse Resp B/P (MAP) Pulse Ox O2 Delivery O2 Flow Rate FiO2 03/11/17 08:00 Room Air 03/11/17 07:54 62 03/11/17 07:35 36.6 58 16 138/75 (96) 96 Room Air 03/11/17 01:25 Room Air 03/10/17 23:47 36.7 68 20 151/68 (95) 96 Room Air 03/10/17 19:48 36.9 70 20 169/79 (109) 97 Room Air 03/10/17 16:00 Room Air 03/10/17 15:34 36.9 75 18 175/76 (109) 96 Room Air General Appearance: no apparent distress Head: normocephalic, atraumatic Eyes: PERRL, EOMI Neck: no adenopathy Respiratory/Chest: lungs clear Cardiovascular: regular rate, rhythm Abdomen/GI: + tenderness (LLQ tender to palpation. No bowel sounds) Extremities/Musculoskelatal: no calf tenderness, no pedal edema Neurologic/Psych: alert, oriented x 3 Laboratory Results Last 24 Hours Test 03/10/17 11:50 03/10/17 16:22 03/10/17 19:41 03/11/17 05:42 Bedside Glucose 117 mg/dl 233 mg/dl 245 mg/dl White Blood Count 9.57 K/uL Red Blood Count 3.88 M/uL Hemoglobin 10.2 g/dL Hematocrit 30.7 % Mean Corpuscular Volume 79.1 fL Mean Corpuscular Hemoglobin 26.3 pg Mean Corpuscular Hemoglobin Concent 33.2 g/dl RDW Standard Deviation 40.4 fL RDW Coefficient of Variation 14.1 % Platelet Count 199 K/uL Mean Platelet Volume 10.0 fL Sodium Level 136 mmol/L Potassium Level 3.5 mmol/L Chloride Level 100 mmol/L Carbon Dioxide Level 31 mmol/L Anion Gap 5.0 mmol/L Blood Urea Nitrogen 54 mg/dl Creatinine 3.90 mg/dl Est Creatinine Clear Calc Drug Dose 20.0 ml/min Estimated GFR () 17.8 Estimated GFR (Non- 15.4 BUN/Creatinine Ratio 13.9 Random Glucose 127 mg/dl Calcium Level 9.0 mg/dl Test 03/11/17 07:44 Bedside Glucose 118 mg/dl Impression (1) Acute kidney injury (2) Kidney disease, chronic, stage IV (GFR 15-29 ml/min) (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 Christy has acute on chronic kidney injury due to acute inflammation in the setting of BETSY inhibitor therapy. Volume status and electrolyte balance remain acceptable at this time. Recommendations ACUTE KIDNEY INJURY: -- Stop lisinopril and furosemide -- Abdominal CT report reviewed. No obstruction of the right kidney reported -- Will check urinalysis w/ micro and UPCR -- Monitor serial PRP, I&O's -- Protect nondominant arm (left) for possible dialysis access in the future -- Hospitalist note reviewed. Agree w/ avoiding Bactrim in the setting of JOSHUA. CHRONIC KIDNEY DISEASE: -- Patient has solitary functioning right kidney -- Baseline creatinine has been 3.0 - 3.3 -- Abdominal CT shows enlarging complex cyst/mass on right kidney. Patient will require Urology follow up and possibly MRI once condition has stabilized HYPERTENSION: -- Continue Amlodipine and Metoprolol for blood pressure management GI: -- Agree with empiric antibiotic therapy for treatment of colitis -- Agree with tapering steroids -- Bactrim therapy will not be needed if steroids are reduced
[2017-03-11 14:29] LABS: URINE PROTIEN/CREAT RATIO 4.8 (0-0.2); URINE TOTAL PROTEIN 113.9 mg/dl (0-11.9)
[2017-03-11 14:37] LABS: URINE APPEARANCE CLEAR (CLEAR); URINE BILIRUBIN NEG (NEG); URINE COLOR YELLOW; URINE EPITHELIAL CELL AUTO 0-5 /lpf (0-5); URINE NITRITE NEG (NEG); URINE PH 5.5 (4.5-7.5); URINE SPECIFIC GRAVITY 1.015 (1.000-1.030); UROBILINOGEN NEG (NEG)
[2017-03-11 14:38] LABS: MANUAL MICROSCOPIC REQUIRED? NO; REVIEW REQ? NO
[2017-03-11 15:20] VITALS: BP 171/77; PULSE 65; TEMP 36.9; O2SAT 96
[2017-03-11 19:29] VITALS: BP 168/80; PULSE 64; TEMP 36.7; O2SAT 96
[2017-03-11] MEDS: AMLODIPINE BESYLATE 5 MG TAB PO SCH (20:20)
[2017-03-11] MEDS: SIMVASTATIN 20 MG TAB PO SCH (20:21)
[2017-03-11] MEDS: INSULIN GLARGINE SOLOSTAR 100 UNITS/ML 3 ML PEN SC SCH (21:29)
[2017-03-11 23:00] VITALS: BP 156/69; PULSE 53; TEMP 36.8; O2SAT 98
[2017-03-12] MEDS: METRONIDAZOLE / NSS 500 MG in PREMIXED NSS 100 ML IV SCH ×3 (01:57→18:09)
[2017-03-12] MEDS: MoRPHine SULFATE 4 MG/ML 1 ML CARP\\VIAL IV PRN ×3 (03:11→18:09)
[2017-03-12 03:53] VITALS: BP 167/78; PULSE 61; TEMP 36.5; O2SAT 98
[2017-03-12 05:51] LABS: COMPLETE YES; HEMATOCRIT 34.5 % (42-52); IG% 0.2 %; LYMPH % 10.3 %; LYMPH ABS # 1.09 K/uL (1.2-3.4); MEAN CELL VOLUME 79.5 fL (80-100); MEAN CORPUSCULAR HEMOGLOBIN 26.3 pg (25-34); MEAN PLATELET VOLUME 9.8 fL (7.4-10.4); MONO % 8.8 %; NEUT % 80.7 %; PLATELET COUNT 192 K/uL (130-400); RED BLOOD COUNT 4.34 M/uL (4.7-6.1); WHITE BLOOD COUNT 10.56 K/uL (4.8-10.8)
[2017-03-12 06:27] LABS: BUN/CREATININE RATIO 16.6 (10-20); CALCIUM 9.2 mg/dl (8.5-10.1); CREATININE 3.6 mg/dl (0.60-1.40); POTASSIUM 3.3 mmol/L (3.5-5.1)
[2017-03-12 07:13] VITALS: BP 160/75; PULSE 54; TEMP 36.4; O2SAT 98
[2017-03-12] MEDS ORDERED: POTASSIUM CHLORIDE 10 MEQ TABCR PO STA (07:56)
[2017-03-12] MEDS: ESCITALOPRAM OXALATE 10 MG TAB PO SCH (09:00)
[2017-03-12] MEDS: DOCUSATE SODIUM 100 MG CAP PO SCH ×2 (09:01→20:44)
[2017-03-12] MEDS: FERROUS SULFATE 325 MG TAB PO SCH ×2 (09:01→20:44)
[2017-03-12] MEDS: ASPIRIN 81 MG ECTAB PO SCH (09:02)
[2017-03-12] MEDS: INSULIN ASPART 100 UNITS/ML 3 ML PEN SC SCH ×4 (09:03→20:49)
[2017-03-12] MEDS: HEPARIN SOD 5000 UNIT/0.5 ML CARP SQ SCH ×2 (09:23→20:50)
[2017-03-12] MEDS: LEVOFLOXACIN 250MG / D5W IV SCH (10:57)
--- NOTE | 2017-03-12 10:59 | Nephrology Progress Note ---
Nephrology Progress Note Date of Service Mar 12, 2017. Chief Complaint Evaluation of acute on chronic kidney injury Subjective Mr. Christy was seen & examined in his hospital room this morning. He complains of persistent LLQ abdominal discomfort. He has not had diarrhea. He is tolerating a clear liquid diet without nausea or emesis. He was afebrile overnight. Review of Systems Constitutional: No fever Cardiovascular: No chest pain Respiratory: No dyspnea at rest Abdomen: + pain, No nausea, No vomiting, No diarrhea Genitourinary - Male: No dysuria, No gross hematuria Extremities: No leg edema A complete review of systems was performed. Pertinent positives are noted above. All other systems are negative. Vital Signs Last 8 Hrs Date Time Temp Pulse Resp B/P (MAP) Pulse Ox O2 Delivery O2 Flow Rate FiO2 03/12/17 09:20 Room Air 03/12/17 07:13 36.4 54 20 160/75 (103) 98 Room Air 03/12/17 03:53 36.5 61 20 167/78 (107) 98 Room Air Last Recorded Weight Weight (Kilograms): 80.300 Physical Exam General Appearance: no apparent distress Head: normocephalic, atraumatic Eyes: PERRL, EOMI Neck: no adenopathy Respiratory/Chest: lungs clear, no respiratory distress Cardiovascular: regular rate, rhythm Abdomen/GI: soft (hypoactive bowel sounds. No guarding) Extremities/Musculoskelatal: no calf tenderness, no pedal edema Neurologic/Psych: alert, oriented x 3 Family History Cervical cancer Diabetes mellitus Heart disease Hypertension Myocardial infarction Pancreatic cancer Prostate cancer Negative for CKD/ESRD Social History Smokeless Tobacco Use: No Alcohol Use: none Drug Use: none Marital Status: single Housing Status: lives alone Occupation: retired Single, retired. Formerly worked for [employer]. Never a smoker. Laboratory Results Past 24 Hours 03/12/17 05:38 Red Blood Count 4.34, Mean Corpuscular Volume 79.5, Mean Corpuscular Hemoglobin 26.3, Mean Corpuscular Hemoglobin Concent 33.0, Mean Platelet Volume 9.8, Neutrophils (%) (Auto) 80.7, Lymphocytes (%) (Auto) 10.3, Monocytes (%) (Auto) 8.8, Eosinophils (%) (Auto) 0.0, Basophils (%) (Auto) 0.0, Neutrophils # (Auto) 8.52, Lymphocytes # (Auto) 1.09, Monocytes # (Auto) 0.93, Eosinophils # (Auto) 0.00, Basophils # (Auto) 0.00 03/12/17 05:38 Test 03/11/17 11:43 03/11/17 13:10 03/11/17 16:36 03/11/17 20:33 Bedside Glucose 201 mg/dl (70-99) 207 mg/dl (70-99) 244 mg/dl (70-99) Urine Color YELLOW Urine Appearance CLEAR (CLEAR) Urine pH 5.5 (4.5-7.5) Urine Specific [place] 1.015 (1.000-1.030) Urine Protein 2+ (NEG) Urine Glucose (UA) 1+ (NEG) Urine Ketones NEG (NEG) Urine Occult Blood 1+ (NEG) Urine Nitrite NEG (NEG) Urine Bilirubin NEG (NEG) Urine Urobilinogen NEG (NEG) Urine Leukocyte Esterase NEG (NEG) Urine WBC (Auto) 0 /hpf (0-5) Urine RBC (Auto) 0-4 /hpf (0-4) Urine Hyaline Casts (Auto) 0 /lpf (0-5) Urine Epithelial Cells (Auto) 0-5 /lpf (0-5) Urine Bacteria (Auto) NEG (NEG) Urine Random Creatinine 24.0 mg/dl Urine Random Total Protein 113.9 mg/dl (0-11.9) Urine Protein/Creatinine Ratio 4.8 (0-0.2) Test 03/12/17 05:38 03/12/17 07:37 White Blood Count 10.56 K/uL (4.8-10.8) Red Blood Count 4.34 M/uL (4.7-6.1) Hemoglobin 11.4 g/dL (14.0-18.0) Hematocrit 34.5 % (42-52) Mean Corpuscular Volume 79.5 fL (80-100) Mean Corpuscular Hemoglobin 26.3 pg (25-34) Mean Corpuscular Hemoglobin Concent 33.0 g/dl (32-36) Platelet Count 192 K/uL (130-400) Mean Platelet Volume 9.8 fL (7.4-10.4) Neutrophils (%) (Auto) 80.7 % Lymphocytes (%) (Auto) 10.3 % Monocytes (%) (Auto) 8.8 % Eosinophils (%) (Auto) 0.0 % Basophils (%) (Auto) 0.0 % Neutrophils # (Auto) 8.52 K/uL (1.4-6.5) Lymphocytes # (Auto) 1.09 K/uL (1.2-3.4) Monocytes # (Auto) 0.93 K/uL (0.11-0.59) Eosinophils # (Auto) 0.00 K/uL (0-0.5) Basophils # (Auto) 0.00 K/uL (0-0.2) RDW Standard Deviation 39.9 fL (36.4-46.3) RDW Coefficient of Variation 13.9 % (11.5-14.5) Immature Granulocyte % (Auto) 0.2 % Immature Granulocyte # (Auto) 0.02 K/uL (0.00-0.02) Anion Gap 8.0 mmol/L (3-11) Est Creatinine Clear Calc Drug Dose 21.7 ml/min Estimated GFR () 19.6 Estimated GFR (Non- 16.9 BUN/Creatinine Ratio 16.6 (10-20) Calcium Level 9.2 mg/dl (8.5-10.1) Bedside Glucose 101 mg/dl (70-99) Allergies Coded Allergies: Iodinated Diagnostic Agents (Verified Allergy, Unknown, oil based, severe headaches, 10/27/16) EVENT OCCURED IN 1971, PT STATES HE HAS HAD 3 DIFFERENT WATER BASED IVP DYES WITH NO ISSUE Medications Current Inpatient Medications Medications (Trade) Dose Ordered Sig/Edward Route Start Time Stop Time Status Last Admin Dose Admin Acetaminophen (Tylenol Tab) 650 mg Q4H PRN PO 03/09/17 15:00 04/08/17 14:59 Al Hydrox/Mg Hydrox/Simethicone (Maalox Max Susp) 15 ml Q4H PRN PO 03/09/17 15:00 04/08/17 14:59 Magnesium Hydroxide (Milk Of Magnesia Susp) 30 ml Q6H PRN PO 03/09/17 15:00 04/08/17 14:59 Polyethylene (Miralax Powder Packet) 17 gm DAILY PRN PO 03/09/17 15:00 04/08/17 14:59 Ondansetron HCl (Zofran Inj) 4 mg Q6H PRN IV 03/09/17 15:00 04/08/17 14:59 Heparin Sodium (Porcine) (Heparin Sq 5000 Unit/0.5ml) 5,000 unit Q12 SQ 03/09/17 17:00 04/08/17 16:59 03/12/17 09:23 5,000 UNIT Insulin Glargine (Lantus Solostar Pen) 14 units QPM SC 03/09/17 21:00 04/08/17 20:59 03/11/17 21:29 14 UNITS Insulin Aspart (novoLOG ASPART) SLIDING SCALE If C... ACHS SC 03/09/17 16:30 04/08/17 16:29 03/11/17 21:28 3 UNITS Glucose (Glucose 40% Gel) 15-30 GRAMS 15 GRAMS... UD PRN PO 03/09/17 15:00 04/08/17 14:59 Glucose (Glucose Chew Tab) 4-8 Tablets 4 Tabl... UD PRN PO 03/09/17 15:00 04/08/17 14:59 Dextrose (Dextrose 50% 50ML Syringe) 25-50ML OF 50% DW IV FOR... UD PRN IV 03/09/17 15:00 04/08/17 14:59 Glucagon (Glucagon Inj) 1 mg UD PRN SQ 03/09/17 15:00 04/08/17 14:59 Morphine Sulfate (MoRPHine SULFATE INJ) 4 mg Q4H PRN IV 03/09/17 15:00 03/23/17 14:59 03/12/17 03:11 4 MG Atenolol (Tenormin Tab) 50 mg DAILY PO 03/10/17 08:00 04/09/17 07:59 03/12/17 09:02 50 MG Docusate Sodium (coLACE CAP) 100 mg BID PO 03/09/17 20:00 04/08/17 19:59 03/12/17 09:01 100 MG Escitalopram Oxalate (Lexapro Tab) 10 mg DAILY PO 03/10/17 08:00 04/09/17 07:59 Simvastatin (Zocor Tab) 20 mg QPM PO 03/09/17 21:00 04/08/17 20:59 03/11/17 20:21 20 MG Terazosin HCl (Hytrin Cap) 5 mg HS PO 03/09/17 21:00 04/08/17 20:59 03/11/17 20:21 5 MG Aspirin (Ecotrin Tab) 81 mg QAM PO 03/10/17 08:00 04/09/17 07:59 03/12/17 09:02 81 MG Calcitriol (Rocaltrol Cap) 0.25 mcg MoWeFr@0800 PO 03/10/17 08:00 04/09/17 07:59 03/10/17 07:41 0.25 MCG Ferrous Sulfate (Feosol Tab) 325 mg BID PO 03/09/17 20:00 04/08/17 19:59 03/12/17 09:01 325 MG Hydralazine HCl (HydrALAZINE INJ) 10 mg Q4H PRN IV 03/09/17 22:00 04/08/17 21:59 Amlodipine Besylate (Norvasc Tab) 10 mg HS PO 03/10/17 21:00 04/09/17 07:59 03/11/17 20:20 10 MG Metronidazole 500 mg/Prmx 100 ml @ 100 mls/hr Q8H IV 03/11/17 10:00 03/21/17 09:59 03/12/17 09:38 100 MLS/HR Levofloxacin (Consult) 1 ea UD PRN N/A 03/11/17 09:30 04/10/17 09:29 Prednisone (PredniSONE TAB) 5 mg QAM PO 03/12/17 08:00 04/11/17 07:59 03/12/17 09:02 5 MG Levofloxacin 250 mg/Prmx 50 ml @ 50 mls/hr Q24H IV 03/12/17 11:00 03/21/17 10:59 Impression (1) Acute kidney injury (2) Kidney disease, chronic, stage IV (GFR 15-29 ml/min) (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 Christy has acute on chronic kidney injury due to acute inflammation in the setting of BETSY inhibitor therapy. Volume status and electrolyte balance remain acceptable at this time. He is s/p R radical nephrectomy 10/06 due to clear cell carcinoma of the kidney. He has metastasis to the lymph nodes. Mr. Christy was intolerant of Sutent therapy due to hypertension and nephrotic syndrome. He was recently transitioned to Opdivo therapy. Mr. Christy has a h/o diverticulitis and is s/p partial colectomy 2009. He was admitted with abdominal pain and CT findings suggest colitis. His inflammation may be related to infection or autoimmune related to Opdivo therapy. Recommendations ACUTE KIDNEY INJURY: -- Continue to hold Lisinopril and Furosemide. Creatinine is slightly improved and patient is diuresing on his own -- Abdominal CT report reviewed. No obstruction of the right kidney reported -- Urinalysis was negative for ATN casts. UPCR shows high grade proteinuria -- Monitor serial PRP, I&O's -- Protect nondominant arm (left) for possible dialysis access in the future -- Hospitalist note reviewed. Agree w/ avoiding Bactrim in the setting of JOSHUA. CHRONIC KIDNEY DISEASE: -- Patient has solitary functioning right kidney -- Baseline creatinine has been 3.0 - 3.3 -- Abdominal CT shows enlarging complex cyst/mass on right kidney. Patient will require Urology follow up and possibly MRI once condition has stabilized HYPERTENSION: -- Continue Amlodipine and Metoprolol for blood pressure management. Patient is diuresing on his own. Continue to monitor blood pressure. GI: -- Agree with empiric antibiotic therapy for treatment of colitis -- Agree with tapering steroids
[2017-03-12 15:22] VITALS: BP 179/83; PULSE 51; TEMP 36.7; O2SAT 99
[2017-03-12] MEDS ORDERED: HydrALAZINE 10 MG TAB PO ONE (16:30)
--- NOTE | 2017-03-12 16:55 | Hospitalist Progress Note ---
Hospitalist Progress Note Date of Service Mar 12, 2017. Subjective Pt evaluation today including: conversation w/ patient, conversation w/ reporting consultant (Oncology) Pt feels better today, less abd pain, no BM yet, is passing flatus. Afebrile. All Other Systems: Reviewed and Negative Objective Vital Signs Date Time Temp Pulse Resp B/P (MAP) Pulse Ox O2 Delivery O2 Flow Rate FiO2 03/12/17 15:22 36.7 51 18 179/83 (115) 99 Room Air 03/12/17 09:20 Room Air 03/12/17 07:13 36.4 54 20 160/75 (103) 98 Room Air 03/12/17 03:53 36.5 61 20 167/78 (107) 98 Room Air 03/12/17 00:47 Room Air 03/11/17 23:00 36.8 53 18 156/69 (98) 98 Room Air 03/11/17 20:28 Room Air 03/11/17 19:29 36.7 64 20 168/80 (109) 96 Room Air Physical Exam General Appearance: WD/WN, no apparent distress Eyes: normal inspection, sclerae normal ENT: hearing grossly normal Neck: trachea midline Respiratory/Chest: lungs clear, normal breath sounds, no respiratory distress, no accessory muscle use Cardiovascular: regular rate, rhythm, no edema, no gallop, no murmur Abdomen: normal bowel sounds (actually hyperactive), soft, + tenderness (in LLQ >RLQ without guarding or rebound tenderness, less tender than yesterday) Extremities: non-tender, normal inspection, no pedal edema, no calf tenderness Neurologic/Psychiatric: alert, normal mood/affect, oriented x 3 Skin: normal color, warm/dry, no rash Laboratory Results Last 24 Hours Test 03/11/17 20:33 03/12/17 05:38 03/12/17 07:37 03/12/17 11:28 Bedside Glucose 244 mg/dl 101 mg/dl 129 mg/dl White Blood Count 10.56 K/uL Red Blood Count 4.34 M/uL Hemoglobin 11.4 g/dL Hematocrit 34.5 % Mean Corpuscular Volume 79.5 fL Mean Corpuscular Hemoglobin 26.3 pg Mean Corpuscular Hemoglobin Concent 33.0 g/dl Platelet Count 192 K/uL Mean Platelet Volume 9.8 fL Neutrophils (%) (Auto) 80.7 % Lymphocytes (%) (Auto) 10.3 % Monocytes (%) (Auto) 8.8 % Eosinophils (%) (Auto) 0.0 % Basophils (%) (Auto) 0.0 % Neutrophils # (Auto) 8.52 K/uL Lymphocytes # (Auto) 1.09 K/uL Monocytes # (Auto) 0.93 K/uL Eosinophils # (Auto) 0.00 K/uL Basophils # (Auto) 0.00 K/uL RDW Standard Deviation 39.9 fL RDW Coefficient of Variation 13.9 % Immature Granulocyte % (Auto) 0.2 % Immature Granulocyte # (Auto) 0.02 K/uL Sodium Level 140 mmol/L Potassium Level 3.3 mmol/L Chloride Level 103 mmol/L Carbon Dioxide Level 29 mmol/L Anion Gap 8.0 mmol/L Blood Urea Nitrogen 60 mg/dl Creatinine 3.60 mg/dl Est Creatinine Clear Calc Drug Dose 21.7 ml/min Estimated GFR () 19.6 Estimated GFR (Non- 16.9 BUN/Creatinine Ratio 16.6 Random Glucose 109 mg/dl Calcium Level 9.2 mg/dl Assessment and Plan 61 y/o male with a history of renal cell carcinoma, s/p resection with metastases, initially with suspected Opdivo induced colitis, here with abdominal pain and low grade fever at home, now thought to have more of an acute diverticulitis picture. LLQ>RLQ Abdominal pain, only one partially loose stool, and low grade fever at home: initially teated for possible colitis associated with Opdivo. Had 2 doses of Iv Solu Medrol but had no improvement--> then had pain localizing to LLQ and given his h/o perforated sigmoid diverticulitis with resection and advanced diverticulosis on CT scan, he was starte on Levaquin and Flagyl. Perhaps he just wasn't mounting an inflammatory response on imaging due to immunosuppression? Also, was not able to have IV contrast on CT scan which may have limited the findings. IV Steroids discontinued and diet reduced diet back to full liquids--> definitely improved today -continue renally dosed Levaquin and Flagyl -Morphine 4 mg IV q4h prn pain -consider advancing diet Mon AM to low fiber diet if continues to improve -if worsens or pain levels out, then reconsider restarting IV Steroids but only after consultation with Oncology--> if had to be treated for Opdivo immune colitis, would have to stop his chemo Renal cell carcinoma s/p left nephrectomy 10/22/15. On Opdivo, followed by Oncology -complex cystic lesions indeterminate but growing in size on rt kidney--> unclear etiology -will d/w Oncology but may need Urology consultation as outpt HTN-BPs consistently elevated today, -continue amlodipine 10 mg PO qd and atenolol 50 mg PO qd -had to dc lisinopril and lasix due to JOSHUA -start hydralazine 10mg po tid DM II--last HgbA1c 11/07 was 6.3, follow closely as with limited po intake -Insulin sliding scale Acute renal failure in setting of CKD stage IV--baseline creatinine 3.2-3.4--> peaked up to 3.9. Could be prerenal from poor po intake the day prior to and day of admission. [employer] now improved to 3.6 -Nephrology consultation appreciated -held lisinopril and lasix -follow PRP -renally dose meds -avoid nephrotoxins Anemia-likely of chronic disease and renal disease-baseline Hgb around 11e ferrous sulfate 325 mg PO BID Anxiety and depression Lexapro 10 mg PO qd BPH terazosin 5 mg PO qd DVT prophylaxis-Heparin 5000 units SC q12h
[2017-03-12 18:38] VITALS: BP 176/80; PULSE 61
[2017-03-12 20:31] VITALS: BP 161/76; PULSE 61; TEMP 36.7; O2SAT 99
[2017-03-12] MEDS: AMLODIPINE BESYLATE 5 MG TAB PO SCH (20:44)
[2017-03-12] MEDS: SIMVASTATIN 20 MG TAB PO SCH (20:44)
[2017-03-12] MEDS: HydrALAZINE 10 MG TAB PO SCH (20:44)
[2017-03-12] MEDS: INSULIN GLARGINE SOLOSTAR 100 UNITS/ML 3 ML PEN SC SCH (20:50)
[2017-03-12 23:47] VITALS: BP 154/71; PULSE 50; TEMP 36.5; O2SAT 98
[2017-03-13] VITALS (12 sets, daily range): BP systolic 136–193; BP diastolic 72–89; PULSE 55–64; TEMP 36.6–36.9; O2SAT 98–99
[2017-03-13] MEDS: METRONIDAZOLE / NSS 500 MG in PREMIXED NSS 100 ML IV SCH ×2 (02:10→10:35)
[2017-03-13] MEDS: MoRPHine SULFATE 4 MG/ML 1 ML CARP\\VIAL IV PRN ×3 (03:28→15:20)
[2017-03-13 07:03] LABS: BASO % 0.1 %; BASO ABS # 0.01 K/uL (0-0.2); COMPLETE YES; EOS % 0.5 %; HEMATOCRIT 33.3 % (42-52); IG% 0.4 %; LYMPH % 22.5 %; LYMPH ABS # 1.84 K/uL (1.2-3.4); MEAN CELL VOLUME 80.2 fL (80-100); MEAN CORPUSCULAR HGB CONC 33.6 g/dl (32-36); MEAN PLATELET VOLUME 9.8 fL (7.4-10.4); MONO % 9.9 %; NEUT % 66.6 %; PLATELET COUNT 195 K/uL (130-400); RED BLOOD COUNT 4.15 M/uL (4.7-6.1); WHITE BLOOD COUNT 8.16 K/uL (4.8-10.8)
[2017-03-13 07:34] LABS: ALT/SGPT 13 U/L (12-78); AST/SGOT 11 U/L (15-37); BLOOD UREA NITROGEN 50 mg/dl (7-18); BUN/CREATININE RATIO 14.6 (10-20); CALCIUM 8.9 mg/dl (8.5-10.1); CARBON DIOXIDE 28 mmol/L (21-32); CHLORIDE 103 mmol/L (98-107); GLUCOSE 91 mg/dl (70-99); MAGNESIUM 2.4 mg/dl (1.8-2.4); POTASSIUM 3.4 mmol/L (3.5-5.1); SODIUM 140 mmol/L (136-145)
[2017-03-13 07:46] LABS: ALB/GLOB RATIO 0.6 (0.9-2); ALKALINE PHOSPHATASE 52 U/L (45-117)
[2017-03-13] MEDS: FERROUS SULFATE 325 MG TAB PO SCH ×2 (07:48→21:14)
[2017-03-13] MEDS: HydrALAZINE 10 MG TAB PO SCH ×2 (07:48→14:00)
[2017-03-13] MEDS: DOCUSATE SODIUM 100 MG CAP PO SCH ×2 (07:49→21:13)
[2017-03-13] MEDS: ASPIRIN 81 MG ECTAB PO SCH (07:50)
[2017-03-13] MEDS: CALCITRIOL 0.25 MCG CAP PO SCH (07:50)
[2017-03-13] MEDS: ESCITALOPRAM OXALATE 10 MG TAB PO SCH (07:51)
[2017-03-13] MEDS: HEPARIN SOD 5000 UNIT/0.5 ML CARP SQ SCH ×2 (07:54→21:22)
[2017-03-13] MEDS: INSULIN ASPART 100 UNITS/ML 3 ML PEN SC SCH ×4 (09:28→21:00)
--- NOTE | 2017-03-13 10:31 | Nephrology Progress Note ---
Nephrology Progress Note Date of Service Mar 13, 2017. Chief Complaint Evaluation of acute on chronic kidney injury Subjective Mr. Christy was seen & examined in his hospital room this morning. He reports continued diffuse abdominal pain. He denies fever or diarrhea. Mr. Christy is tolerating a clear liquid diet. He reports + flatus. He voices no new medical concerns at this time. Review of Systems Constitutional: No fever Cardiovascular: No chest pain Respiratory: No dyspnea at rest Abdomen: + pain, No nausea, No vomiting Genitourinary - Male: No dysuria Extremities: No leg edema A complete review of systems was performed. Pertinent positives are noted above. All other systems are negative. Vital Signs Last 8 Hrs Date Time Temp Pulse Resp B/P (MAP) Pulse Ox O2 Delivery O2 Flow Rate FiO2 03/13/17 07:58 36.6 58 18 174/89 (117) 98 Room Air 03/13/17 03:30 36.6 55 20 143/81 (101) 98 Room Air Last Recorded Weight Weight (Kilograms): 80.800 Physical Exam General Appearance: no apparent distress Head: normocephalic, atraumatic Eyes: PERRL, EOMI Neck: no adenopathy Respiratory/Chest: lungs clear, no respiratory distress Cardiovascular: regular rate, rhythm Abdomen/GI: + tenderness (no guarding. Hypoactive bowel sounds) Extremities/Musculoskelatal: no calf tenderness, no pedal edema Neurologic/Psych: alert, oriented x 3 Family History Cervical cancer Diabetes mellitus Heart disease Hypertension Myocardial infarction Pancreatic cancer Prostate cancer Negative for CKD/ESRD Social History Smokeless Tobacco Use: No Alcohol Use: none Drug Use: none Marital Status: single Housing Status: lives alone Occupation: retired Single, retired. Formerly worked for [employer]. Never a smoker. Laboratory Results Past 24 Hours 03/13/17 06:36 Red Blood Count 4.15, Mean Corpuscular Volume 80.2, Mean Corpuscular Hemoglobin 27.0, Mean Corpuscular Hemoglobin Concent 33.6, Mean Platelet Volume 9.8, Neutrophils (%) (Auto) 66.6, Lymphocytes (%) (Auto) 22.5, Monocytes (%) (Auto) 9.9, Eosinophils (%) (Auto) 0.5, Basophils (%) (Auto) 0.1, Neutrophils # (Auto) 5.43, Lymphocytes # (Auto) 1.84, Monocytes # (Auto) 0.81, Eosinophils # (Auto) 0.04, Basophils # (Auto) 0.01 03/13/17 06:36 Test 03/12/17 11:28 03/12/17 16:46 03/12/17 20:10 03/13/17 06:36 Bedside Glucose 129 mg/dl (70-99) 115 mg/dl (70-99) 227 mg/dl (70-99) White Blood Count 8.16 K/uL (4.8-10.8) Red Blood Count 4.15 M/uL (4.7-6.1) Hemoglobin 11.2 g/dL (14.0-18.0) Hematocrit 33.3 % (42-52) Mean Corpuscular Volume 80.2 fL (80-100) Mean Corpuscular Hemoglobin 27.0 pg (25-34) Mean Corpuscular Hemoglobin Concent 33.6 g/dl (32-36) Platelet Count 195 K/uL (130-400) Mean Platelet Volume 9.8 fL (7.4-10.4) Neutrophils (%) (Auto) 66.6 % Lymphocytes (%) (Auto) 22.5 % Monocytes (%) (Auto) 9.9 % Eosinophils (%) (Auto) 0.5 % Basophils (%) (Auto) 0.1 % Neutrophils # (Auto) 5.43 K/uL (1.4-6.5) Lymphocytes # (Auto) 1.84 K/uL (1.2-3.4) Monocytes # (Auto) 0.81 K/uL (0.11-0.59) Eosinophils # (Auto) 0.04 K/uL (0-0.5) Basophils # (Auto) 0.01 K/uL (0-0.2) RDW Standard Deviation 41.7 fL (36.4-46.3) RDW Coefficient of Variation 14.2 % (11.5-14.5) Immature Granulocyte % (Auto) 0.4 % Immature Granulocyte # (Auto) 0.03 K/uL (0.00-0.02) Anion Gap 9.0 mmol/L (3-11) Est Creatinine Clear Calc Drug Dose 23.0 ml/min Estimated GFR () 21.0 Estimated GFR (Non- 18.2 BUN/Creatinine Ratio 14.6 (10-20) Calcium Level 8.9 mg/dl (8.5-10.1) Magnesium Level 2.4 mg/dl (1.8-2.4) Total Bilirubin 0.2 mg/dl (0.2-1) Direct Bilirubin < 0.1 mg/dl (0-0.2) Aspartate Amino Transf (AST/SGOT) 11 U/L (15-37) Alanine Aminotransferase (ALT/SGPT) 13 U/L (12-78) Alkaline Phosphatase 52 U/L (45-117) Total Protein 6.0 gm/dl (6.4-8.2) Albumin 2.3 gm/dl (3.4-5.0) Globulin 3.7 gm/dl (2.5-4.0) Albumin/Globulin Ratio 0.6 (0.9-2) Thyroid Stimulating Hormone (TSH) 1.880 uIu/ml (0.300-4.500) Test 03/13/17 07:28 Bedside Glucose 95 mg/dl (70-99) Allergies Coded Allergies: Iodinated Diagnostic Agents (Verified Allergy, Unknown, oil based, severe headaches, 10/27/16) EVENT OCCURED IN 1971, PT STATES HE HAS HAD 3 DIFFERENT WATER BASED IVP DYES WITH NO ISSUE Medications Current Inpatient Medications Medications (Trade) Dose Ordered Sig/Edward Route Start Time Stop Time Status Last Admin Dose Admin Acetaminophen (Tylenol Tab) 650 mg Q4H PRN PO 03/09/17 15:00 04/08/17 14:59 Al Hydrox/Mg Hydrox/Simethicone (Maalox Max Susp) 15 ml Q4H PRN PO 03/09/17 15:00 04/08/17 14:59 Magnesium Hydroxide (Milk Of Magnesia Susp) 30 ml Q6H PRN PO 03/09/17 15:00 04/08/17 14:59 Polyethylene (Miralax Powder Packet) 17 gm DAILY PRN PO 03/09/17 15:00 04/08/17 14:59 Ondansetron HCl (Zofran Inj) 4 mg Q6H PRN IV 03/09/17 15:00 04/08/17 14:59 Heparin Sodium (Porcine) (Heparin Sq 5000 Unit/0.5ml) 5,000 unit Q12 SQ 03/09/17 17:00 04/08/17 16:59 8/21/17 07:54 5,000 UNIT Insulin Glargine (Lantus Solostar Pen) 14 units QPM SC 03/09/17 21:00 04/08/17 20:59 03/12/17 20:50 14 UNITS Insulin Aspart (novoLOG ASPART) SLIDING SCALE If C... ACHS SC 03/09/17 16:30 04/08/17 16:29 03/12/17 20:49 2 UNITS Glucose (Glucose 40% Gel) 15-30 GRAMS 15 GRAMS... UD PRN PO 03/09/17 15:00 04/08/17 14:59 Glucose (Glucose Chew Tab) 4-8 Tablets 4 Tabl... UD PRN PO 03/09/17 15:00 04/08/17 14:59 Dextrose (Dextrose 50% 50ML Syringe) 25-50ML OF 50% DW IV FOR... UD PRN IV 03/09/17 15:00 04/08/17 14:59 Glucagon (Glucagon Inj) 1 mg UD PRN SQ 03/09/17 15:00 04/08/17 14:59 Morphine Sulfate (MoRPHine SULFATE INJ) 4 mg Q4H PRN IV 03/09/17 15:00 03/23/17 14:59 03/13/17 08:55 4 MG Atenolol (Tenormin Tab) 50 mg DAILY PO 03/10/17 08:00 04/09/17 07:59 03/13/17 07:49 50 MG Docusate Sodium (coLACE CAP) 100 mg BID PO 03/09/17 20:00 04/08/17 19:59 03/13/17 07:49 100 MG Escitalopram Oxalate (Lexapro Tab) 10 mg DAILY PO 03/10/17 08:00 04/09/17 07:59 Simvastatin (Zocor Tab) 20 mg QPM PO 03/09/17 21:00 04/08/17 20:59 03/12/17 20:44 20 MG Terazosin HCl (Hytrin Cap) 5 mg HS PO 03/09/17 21:00 04/08/17 20:59 03/12/17 20:43 5 MG Aspirin (Ecotrin Tab) 81 mg QAM PO 03/10/17 08:00 04/09/17 07:59 8/21/17 07:50 81 MG Calcitriol (Rocaltrol Cap) 0.25 mcg MoWeFr@0800 PO 03/10/17 08:00 04/09/17 07:59 03/13/17 07:50 0.25 MCG Ferrous Sulfate (Feosol Tab) 325 mg BID PO 03/09/17 20:00 04/08/17 19:59 03/13/17 07:48 325 MG Hydralazine HCl (HydrALAZINE INJ) 10 mg Q4H PRN IV 03/09/17 22:00 04/08/17 21:59 Amlodipine Besylate (Norvasc Tab) 10 mg HS PO 03/10/17 21:00 04/09/17 07:59 03/12/17 20:44 10 MG Metronidazole 500 mg/Prmx 100 ml @ 100 mls/hr Q8H IV 03/11/17 10:00 03/21/17 09:59 03/13/17 02:10 100 MLS/HR Levofloxacin (Consult) 1 ea UD PRN N/A 03/11/17 09:30 04/10/17 09:29 Prednisone (PredniSONE TAB) 5 mg QAM PO 03/12/17 08:00 04/11/17 07:59 03/13/17 07:49 5 MG Levofloxacin 250 mg/Prmx 50 ml @ 50 mls/hr Q24H IV 03/12/17 11:00 03/21/17 10:59 03/12/17 10:57 50 MLS/HR Hydralazine HCl (Apresoline Tab) 10 mg TID PO 03/12/17 20:00 04/11/17 19:59 03/13/17 07:48 10 MG Impression (1) Acute kidney injury (2) Kidney disease, chronic, stage IV (GFR 15-29 ml/min) (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 Christy has acute on chronic kidney injury (baseline creatinine 3.0 - 3.3) due to acute inflammation in the setting of BETSY inhibitor therapy. Volume status and electrolyte balance remain acceptable at this time. He is s/p R radical nephrectomy 10/06 due to clear cell carcinoma of the kidney. He has metastasis to the lymph nodes. Mr. Christy was intolerant of Sutent therapy due to hypertension and nephrotic syndrome. He was recently transitioned to Opdivo therapy. Mr. Christy has a h/o diverticulitis and is s/p partial colectomy 2009. He was admitted with abdominal pain and CT findings suggest colitis. His inflammation may be related to infection or autoimmune related to Opdivo therapy. Recommendations ACUTE KIDNEY INJURY: -- Continue to hold Lisinopril and Furosemide. Patient is diuresing on his own. Creatinine is nearing baseline. -- Abdominal CT report reviewed. No obstruction of the right kidney reported -- Urinalysis was negative for ATN casts. UPCR shows high grade proteinuria -- Monitor serial PRP, I&O's -- Protect nondominant arm (left) for possible dialysis access in the future CHRONIC KIDNEY DISEASE: -- Patient has solitary functioning right kidney -- Baseline creatinine has been 3.0 - 3.3 -- Abdominal CT shows enlarging complex cyst/mass on right kidney. Patient will require Urology follow up and possibly MRI once condition has stabilized HYPERTENSION: -- Continue Amlodipine and Metoprolol for blood pressure management. Patient is diuresing on his own. Continue to monitor blood pressure. GI: -- Agree with empiric antibiotic therapy for treatment of colitis -- Consider low dose steroid therapy (Prednisone 20 - 40 mg daily) until abdominal pain resolves
[2017-03-13] MEDS: LEVOFLOXACIN 250MG / D5W IV SCH (11:44)
--- NOTE | 2017-03-13 12:08 | Hematology/Oncology Prog Note ---
Hematology/Onc Progress Note Date of Service Mar 13, 2017. Diagnoses Metastatic renal cell carcinoma Abdominal pain rule out immune mediated colitis versus diverticulitis Medications Medications Administered Medications (Trade) Dose Ordered Sig/Edward Route Start Time Stop Time Status Last Admin Dose Admin Heparin Sodium (Porcine) (Heparin Sq 5000 Unit/0.5ml) 5,000 unit Q12 SQ 03/09/17 17:00 04/08/17 16:59 03/13/17 07:54 5,000 UNIT Insulin Glargine (Lantus Solostar Pen) 14 units QPM SC 03/09/17 21:00 04/08/17 20:59 03/12/17 20:50 14 UNITS Insulin Aspart (novoLOG ASPART) SLIDING SCALE If C... ACHS SC 03/09/17 16:30 04/08/17 16:29 03/12/17 20:49 2 UNITS Morphine Sulfate (MoRPHine SULFATE INJ) 4 mg Q4H PRN IV 03/09/17 15:00 03/23/17 14:59 03/13/17 08:55 4 MG Atenolol (Tenormin Tab) 50 mg DAILY PO 03/10/17 08:00 04/09/17 07:59 03/13/17 07:49 50 MG Docusate Sodium (coLACE CAP) 100 mg BID PO 03/09/17 20:00 04/08/17 19:59 03/13/17 07:49 100 MG Furosemide (Lasix Tab) 40 mg DAILY PO 03/10/17 08:00 03/11/17 11:23 DC 03/11/17 07:52 40 MG Lisinopril (Zestril Tab) 40 mg QAM PO 03/10/17 08:00 03/11/17 11:23 DC 03/11/17 07:52 40 MG Simvastatin (Zocor Tab) 20 mg QPM PO 03/09/17 21:00 04/08/17 20:59 03/12/17 20:44 20 MG Terazosin HCl (Hytrin Cap) 5 mg HS PO 03/09/17 21:00 04/08/17 20:59 03/12/17 20:43 5 MG Aspirin (Ecotrin Tab) 81 mg QAM PO 03/10/17 08:00 04/09/17 07:59 03/13/17 07:50 81 MG Calcitriol (Rocaltrol Cap) 0.25 mcg MoWeFr@0800 PO 03/10/17 08:00 04/09/17 07:59 03/13/17 07:50 0.25 MCG Ferrous Sulfate (Feosol Tab) 325 mg BID PO 03/09/17 20:00 04/08/17 19:59 03/13/17 07:48 325 MG Methylprednisolone Sodium Succinate 80 mg/Syringe 1.28 ml @ 1.5 mls/min DAILY IV 03/10/17 09:00 03/11/17 10:33 DC 03/11/17 07:50 1.5 MLS/MIN Amlodipine Besylate (Norvasc Tab) 10 mg HS PO 03/10/17 21:00 04/09/17 07:59 03/12/17 20:44 10 MG Levofloxacin 500 mg/Prmx 100 ml @ 100 mls/hr NOW ONCE IV 03/11/17 10:00 03/11/17 10:59 DC 03/11/17 11:18 100 MLS/HR Metronidazole 500 mg/Prmx 100 ml @ 100 mls/hr Q8H IV 03/11/17 10:00 03/21/17 09:59 03/13/17 10:35 100 MLS/HR Prednisone (PredniSONE TAB) 5 mg QAM PO 03/12/17 08:00 04/11/17 07:59 03/13/17 07:49 5 MG Levofloxacin 250 mg/Prmx 50 ml @ 50 mls/hr Q24H IV 03/12/17 11:00 03/21/17 10:59 03/13/17 11:44 50 MLS/HR Potassium Chloride (Klor-Con M10) 20 meq NOW STAT PO 03/12/17 07:56 03/12/17 08:01 DC 03/12/17 09:02 20 MEQ Hydralazine HCl (Apresoline Tab) 10 mg TID PO 03/12/17 20:00 04/11/17 19:59 03/13/17 07:48 10 MG Hydralazine HCl (Apresoline Tab) 10 mg 1630 ONCE PO 03/12/17 16:30 03/12/17 16:31 DC 03/12/17 16:46 10 MG Subjective He states that his abdominal pain is better. He does not have diarrhea. In fact diarrhea has not been a prominent symptom in his presentation recently Review of Systems: Constitutional: Negative for night sweats, or fever Eyes: Negative for event change of vision ENT: Negative for epistaxis, nasal discharge, sore throat, or deafness Cardiovascular: Negative for chest pain, palpitations, dizziness, diaphoresis Respiratory: Negative for new shortness of breath,hemoptysis, or purulent cough Gastrointestinal: Negative for diarrhea, hematemesis, melena, nausea, vomiting , or dyspepsia Integumentary (skin): Negative for rash or jaundice discoloration Genitourinary: Negative for urinary frequency, hematuria, or dysuria Neurological: Negative for weakness, seizure activity, headache, or dizziness Lymphatic/Hematologic: Negative for petechiae, bleeding or new adenopathy Musculoskeletal: Negative for new joint or back pain Allergic/Immunologic: Negative for unusual rash or pruritis. Vital Signs Vital Signs Past 12 Hours Date Time Temp Pulse Resp B/P (MAP) Pulse Ox O2 Delivery O2 Flow Rate FiO2 03/13/17 11:27 36.8 62 18 166/79 (108) 98 Room Air 03/13/17 08:00 98 Room Air 03/13/17 07:58 36.6 58 18 174/89 (117) 98 Room Air 03/13/17 03:30 36.6 55 20 143/81 (101) 98 Room Air 03/13/17 00:46 Room Air Physical Exam Constitutional: vitals are stable. Eyes: Eyes are YSABEL EOMI without conjuctival erythema or icterus. ENT: External examination was negative for masses. Neck: Negative for masses or palpable thyromegaly Respiratory: Lung sounds were generally clear bilaterally Cardiovascular: Heart was RRR without significant murmur, gallops aoe rubs Gastrointestinal: No palpable hepatic or splenomegaly. The abdomen was soft with normal bowel sounds. Lymphatic system: there was no palpable peripheral lymphadenopathy Musculoskeletal System: The musculoskeletal system seemed concordant with age. Skin: The skin was negative for jaundice. Neurologic exam: The exam was negative for any focal findings. Deep tendon reflexes were equal and symmetrical. Psychiatric exam: Was essentially negative with normal mood and effect. Extremities: Negative for edema erythema Constitutional: General Apperance: heathly-appearing Level of Distress: NAD Psychiatric: Mental Status: active & alert Orientation: oriented except where noted Lungs: Auscuitation: CTA except as noted Cardiovascular: Heart Auscultation: RRR Abdomen: Inspection & Palpation: soft, LLQ tenderness Extremities: no edema Laboratory Last 24 Hours Test 03/12/17 16:46 03/12/17 20:10 03/13/17 06:36 03/13/17 07:28 Bedside Glucose 115 mg/dl 227 mg/dl 95 mg/dl White Blood Count 8.16 K/uL Red Blood Count 4.15 M/uL Hemoglobin 11.2 g/dL Hematocrit 33.3 % Mean Corpuscular Volume 80.2 fL Mean Corpuscular Hemoglobin 27.0 pg Mean Corpuscular Hemoglobin Concent 33.6 g/dl Platelet Count 195 K/uL Mean Platelet Volume 9.8 fL Neutrophils (%) (Auto) 66.6 % Lymphocytes (%) (Auto) 22.5 % Monocytes (%) (Auto) 9.9 % Eosinophils (%) (Auto) 0.5 % Basophils (%) (Auto) 0.1 % Neutrophils # (Auto) 5.43 K/uL Lymphocytes # (Auto) 1.84 K/uL Monocytes # (Auto) 0.81 K/uL Eosinophils # (Auto) 0.04 K/uL Basophils # (Auto) 0.01 K/uL RDW Standard Deviation 41.7 fL RDW Coefficient of Variation 14.2 % Immature Granulocyte % (Auto) 0.4 % Immature Granulocyte # (Auto) 0.03 K/uL Sodium Level 140 mmol/L Potassium Level 3.4 mmol/L Chloride Level 103 mmol/L Carbon Dioxide Level 28 mmol/L Anion Gap 9.0 mmol/L Blood Urea Nitrogen 50 mg/dl Creatinine 3.40 mg/dl Est Creatinine Clear Calc Drug Dose 23.0 ml/min Estimated GFR () 21.0 Estimated GFR (Non- 18.2 BUN/Creatinine Ratio 14.6 Random Glucose 91 mg/dl Calcium Level 8.9 mg/dl Magnesium Level 2.4 mg/dl Total Bilirubin 0.2 mg/dl Direct Bilirubin < 0.1 mg/dl Aspartate Amino Transf (AST/SGOT) 11 U/L Alanine Aminotransferase (ALT/SGPT) 13 U/L Alkaline Phosphatase 52 U/L Total Protein 6.0 gm/dl Albumin 2.3 gm/dl Globulin 3.7 gm/dl Albumin/Globulin Ratio 0.6 Thyroid Stimulating Hormone (TSH) 1.880 uIu/ml Test 03/13/17 11:26 Bedside Glucose 131 mg/dl Assessment & Plan Metastatic renal cell carcinoma rule out immune mediated colitis versus diverticulitis His abdominal pain seems to be somewhat better. He is being treated primarily for diverticulitis. I did review with him today the results of the CT scan that demonstrated some enlargement of the abdominal adenopathy. The changes in regards to the right kidney on review seen less apparent. There is an outside chance that the changes in the adenopathy might be related to the effect of nivolumab. Unfortunately we have very few treatment alternatives and it might be warranted to continue this drug treatment for at least a few more treatments prior to another CT image. He of course will have a follow-up appointment in our clinic.
[2017-03-13] MEDS: METRONIDAZOLE 500 MG TAB PO SCH ×2 (15:16→21:16)
--- NOTE | 2017-03-13 16:08 | Progress Note ---
Subjective Date of Service: Mar 13, 2017. Subjective Pt evaluation today including: conversation w/ patient, physical exam, lab review, review of inpatient medication list Pain: abdominal pain improved PO Intake: tolerating liquids, hungry for real food Voiding: no voiding problems passing flatus, no BM today, less abdominal pain, hungry reviewed labs and sap portal consultant recommendations Problem List Medical Problems: (1) Acute dyspnea Status: Acute (2) Chronic kidney disease Status: Acute (3) Renal cell carcinoma Status: Acute Review of Systems Abdomen: + pain (LLQ) All Other Systems: Reviewed and Negative Medications Current Inpatient Medications Medications (Trade) Dose Ordered Sig/Edward Route Start Time Stop Time Status Last Admin Dose Admin Acetaminophen (Tylenol Tab) 650 mg Q4H PRN PO 03/09/17 15:00 04/08/17 14:59 Al Hydrox/Mg Hydrox/Simethicone (Maalox Max Susp) 15 ml Q4H PRN PO 03/09/17 15:00 04/08/17 14:59 Magnesium Hydroxide (Milk Of Magnesia Susp) 30 ml Q6H PRN PO 03/09/17 15:00 04/08/17 14:59 Polyethylene (Miralax Powder Packet) 17 gm DAILY PRN PO 03/09/17 15:00 04/08/17 14:59 Ondansetron HCl (Zofran Inj) 4 mg Q6H PRN IV 03/09/17 15:00 04/08/17 14:59 Heparin Sodium (Porcine) (Heparin Sq 5000 Unit/0.5ml) 5,000 unit Q12 SQ 03/09/17 17:00 04/08/17 16:59 03/13/17 07:54 5,000 UNIT Insulin Glargine (Lantus Solostar Pen) 14 units QPM SC 03/09/17 21:00 04/08/17 20:59 03/12/17 20:50 14 UNITS Insulin Aspart (novoLOG ASPART) SLIDING SCALE If C... ACHS SC 03/09/17 16:30 04/08/17 16:29 03/12/17 20:49 2 UNITS Glucose (Glucose 40% Gel) 15-30 GRAMS 15 GRAMS... UD PRN PO 03/09/17 15:00 04/08/17 14:59 Glucose (Glucose Chew Tab) 4-8 Tablets 4 Tabl... UD PRN PO 03/09/17 15:00 04/08/17 14:59 Dextrose (Dextrose 50% 50ML Syringe) 25-50ML OF 50% DW IV FOR... UD PRN IV 03/09/17 15:00 04/08/17 14:59 Glucagon (Glucagon Inj) 1 mg UD PRN SQ 03/09/17 15:00 04/08/17 14:59 Morphine Sulfate (MoRPHine SULFATE INJ) 4 mg Q4H PRN IV 03/09/17 15:00 03/23/17 14:59 03/13/17 15:20 4 MG Atenolol (Tenormin Tab) 50 mg DAILY PO 03/10/17 08:00 04/09/17 07:59 03/13/17 07:49 50 MG Docusate Sodium (coLACE CAP) 100 mg BID PO 03/09/17 20:00 04/08/17 19:59 03/13/17 07:49 100 MG Escitalopram Oxalate (Lexapro Tab) 10 mg DAILY PO 03/10/17 08:00 04/09/17 07:59 Simvastatin (Zocor Tab) 20 mg QPM PO 03/09/17 21:00 04/08/17 20:59 03/12/17 20:44 20 MG Terazosin HCl (Hytrin Cap) 5 mg HS PO 03/09/17 21:00 04/08/17 20:59 03/12/17 20:43 5 MG Aspirin (Ecotrin Tab) 81 mg QAM PO 03/10/17 08:00 04/09/17 07:59 03/13/17 07:50 81 MG Calcitriol (Rocaltrol Cap) 0.25 mcg MoWeFr@0800 PO 03/10/17 08:00 04/09/17 07:59 03/13/17 07:50 0.25 MCG Ferrous Sulfate (Feosol Tab) 325 mg BID PO 03/09/17 20:00 04/08/17 19:59 03/13/17 07:48 325 MG Hydralazine HCl (HydrALAZINE INJ) 10 mg Q4H PRN IV 03/09/17 22:00 04/08/17 21:59 Amlodipine Besylate (Norvasc Tab) 10 mg HS PO 03/10/17 21:00 04/09/17 07:59 03/12/17 20:44 10 MG Levofloxacin (Consult) 1 ea UD PRN N/A 03/11/17 09:30 04/10/17 09:29 Prednisone (PredniSONE TAB) 5 mg QAM PO 03/12/17 08:00 04/11/17 07:59 03/13/17 07:49 5 MG Hydralazine HCl (Apresoline Tab) 10 mg TID PO 03/12/17 20:00 04/11/17 19:59 03/13/17 14:00 10 MG Levofloxacin (Levaquin Tab) 250 mg DAILY@11 PO 03/14/17 11:00 03/21/17 10:59 Metronidazole (Flagyl Tab) 500 mg TID PO 03/13/17 14:33 03/21/17 14:32 03/13/17 15:16 500 MG Oxycodone HCl (Roxicodone Immediate Rel Tab) 5 mg Q6 PRN PO 03/13/17 15:30 03/27/17 15:29 Objective Vital Signs Date Time Temp Pulse Resp B/P (MAP) Pulse Ox O2 Delivery O2 Flow Rate FiO2 03/13/17 14:24 36.9 55 18 182/78 (112) 99 03/13/17 11:27 36.8 62 18 166/79 (108) 98 Room Air 03/13/17 08:00 98 Room Air 03/13/17 07:58 36.6 58 18 174/89 (117) 98 Room Air 03/13/17 03:30 36.6 55 20 143/81 (101) 98 Room Air 03/13/17 00:46 Room Air 03/12/17 23:47 36.5 50 20 154/71 (98) 98 Room Air 03/12/17 20:31 36.7 61 20 161/76 (104) 99 Room Air 03/12/17 20:12 Room Air 03/12/17 18:38 61 176/80 (112) 03/12/17 16:52 Room Air Physical Exam General Appearance: WD/WN, no apparent distress Neck: supple, no adenopathy, no JVD, trachea midline Respiratory/Chest: chest non-tender, lungs clear, normal breath sounds, no respiratory distress, no accessory muscle use Cardiovascular: regular rate, rhythm, no edema, no gallop, no JVD, no murmur Abdomen: normal bowel sounds, soft, no organomegaly, + tenderness (LLQ, no rebound or rigidity) Extremities: normal range of motion, non-tender, normal inspection, no pedal edema, no calf tenderness, pelvis stable 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, no motor/sensory deficits, alert, normal mood/affect, oriented x 3 Skin: normal color, warm/dry, no rash Lymphatic: no adenopathy Laboratory Results Last 24 Hours Test 03/12/17 16:46 03/12/17 20:10 03/13/17 06:36 03/13/17 07:28 Bedside Glucose 115 mg/dl 227 mg/dl 95 mg/dl White Blood Count 8.16 K/uL Red Blood Count 4.15 M/uL Hemoglobin 11.2 g/dL Hematocrit 33.3 % Mean Corpuscular Volume 80.2 fL Mean Corpuscular Hemoglobin 27.0 pg Mean Corpuscular Hemoglobin Concent 33.6 g/dl Platelet Count 195 K/uL Mean Platelet Volume 9.8 fL Neutrophils (%) (Auto) 66.6 % Lymphocytes (%) (Auto) 22.5 % Monocytes (%) (Auto) 9.9 % Eosinophils (%) (Auto) 0.5 % Basophils (%) (Auto) 0.1 % Neutrophils # (Auto) 5.43 K/uL Lymphocytes # (Auto) 1.84 K/uL Monocytes # (Auto) 0.81 K/uL Eosinophils # (Auto) 0.04 K/uL Basophils # (Auto) 0.01 K/uL RDW Standard Deviation 41.7 fL RDW Coefficient of Variation 14.2 % Immature Granulocyte % (Auto) 0.4 % Immature Granulocyte # (Auto) 0.03 K/uL Sodium Level 140 mmol/L Potassium Level 3.4 mmol/L Chloride Level 103 mmol/L Carbon Dioxide Level 28 mmol/L Anion Gap 9.0 mmol/L Blood Urea Nitrogen 50 mg/dl Creatinine 3.40 mg/dl Est Creatinine Clear Calc Drug Dose 23.0 ml/min Estimated GFR () 21.0 Estimated GFR (Non- 18.2 BUN/Creatinine Ratio 14.6 Random Glucose 91 mg/dl Calcium Level 8.9 mg/dl Magnesium Level 2.4 mg/dl Total Bilirubin 0.2 mg/dl Direct Bilirubin < 0.1 mg/dl Aspartate Amino Transf (AST/SGOT) 11 U/L Alanine Aminotransferase (ALT/SGPT) 13 U/L Alkaline Phosphatase 52 U/L Total Protein 6.0 gm/dl Albumin 2.3 gm/dl Globulin 3.7 gm/dl Albumin/Globulin Ratio 0.6 Thyroid Stimulating Hormone (TSH) 1.880 uIu/ml Test 03/13/17 11:26 Bedside Glucose 131 mg/dl Assessment and Plan 61 y/o male with a history of renal cell carcinoma, s/p resection with metastases, initially with suspected Opdivo induced colitis, here with abdominal pain and low grade fever at home, now thought to have more of an acute diverticulitis picture. Abdominal pain and diarrhea - initially thought to be inflammatory colitis, now suspect diverticulitis, sigmoid continue Levaquin and Flagyl, improving daily advance diet to low residue continue to hold steroids, no diarrhea still and the colitis you would expect diarrhea Oxycodone PRN for pain Renal cell carcinoma s/p left nephrectomy 10/22/15. On Opdivo, followed by Oncology -complex cystic lesions indeterminate but growing in size on rt kidney--> unclear etiology -will d/w Oncology but may need Urology consultation as outpt HTN - still elevated today -continue amlodipine 10 mg PO qd and atenolol 50 mg PO qd -had to dc lisinopril and lasix due to JOSHUA -increase hydralazine to 25mg po tid DM II--last HgbA1c 11/07 was 6.3, follow closely as with limited po intake -Insulin sliding scale Acute renal failure in setting of CKD stage IV--baseline creatinine 3.2-3.4--> peaked up to 3.9. likely from poor po intake the day prior to and day of admission - Cr improved to 3.4 today, adequate urine output -Nephrology consultation appreciated -hold lisinopril and lasix -follow PRP -renally dose meds -avoid nephrotoxins Anemia-likely of chronic disease and renal disease-baseline Hgb around 11e ferrous sulfate 325 mg PO BID Anxiety and depression Lexapro 10 mg PO qd BPH terazosin 5 mg PO qd DVT prophylaxis-Heparin 5000 units SC q12h
[2017-03-13] MEDS: HydrALAZINE HCL 20 MG/ML VIAL IV PRN (16:44)
[2017-03-13] MEDS: OXYCODONE HCL IR 5 MG TAB (IMMEDIATE RELEASE) PO PRN (19:01)
[2017-03-13] MEDS: SIMVASTATIN 20 MG TAB PO SCH (21:14)
[2017-03-13] MEDS: AMLODIPINE BESYLATE 5 MG TAB PO SCH (21:15)
[2017-03-13] MEDS: INSULIN GLARGINE SOLOSTAR 100 UNITS/ML 3 ML PEN SC SCH (21:21)
[2017-03-14] MEDS: OXYCODONE HCL IR 5 MG TAB (IMMEDIATE RELEASE) PO PRN ×3 (03:10→18:31)
[2017-03-14 04:36] VITALS: BP 146/76; PULSE 69; TEMP 36.5; O2SAT 98
[2017-03-14] MEDS: INSULIN ASPART 100 UNITS/ML 3 ML PEN SC SCH ×4 (06:30→19:54)
[2017-03-14 07:17] VITALS: BP 142/74; PULSE 61; TEMP 36.7; O2SAT 98
[2017-03-14] MEDS: ASPIRIN 81 MG ECTAB PO SCH (07:43)
[2017-03-14] MEDS: DOCUSATE SODIUM 100 MG CAP PO SCH ×2 (07:43→19:16)
[2017-03-14] MEDS: METRONIDAZOLE 500 MG TAB PO SCH ×3 (07:44→19:57)
[2017-03-14] MEDS: FERROUS SULFATE 325 MG TAB PO SCH ×2 (07:44→19:16)
[2017-03-14] MEDS: ESCITALOPRAM OXALATE 10 MG TAB PO SCH (07:45)
[2017-03-14] MEDS: HEPARIN SOD 5000 UNIT/0.5 ML CARP SQ SCH ×2 (07:47→19:23)
[2017-03-14] MEDS: POLYETHYLENE (MIRALAX) 17 GM PACK PO PRN (07:49)
--- NOTE | 2017-03-14 09:59 | Nephrology Progress Note ---
Nephrology Progress Note Date of Service Mar 14, 2017. Chief Complaint Evaluation of acute on chronic kidney injury Subjective Mr. Christy was seen & examined in his hospital room this morning. He reports that his abdominal pain is mildly improved. Mr. Christy is tolerating a liquid diet and reports + flatus. He denies fever or flank pain. He was able to ambulate in the hallway yesterday evening. Review of Systems Constitutional: No fever Cardiovascular: No chest pain Respiratory: No dyspnea at rest Abdomen: + pain, No nausea, No vomiting, No diarrhea Genitourinary - Male: No dysuria, No gross hematuria Extremities: No leg edema A complete review of systems was performed. Pertinent positives are noted above. All other systems are negative. Vital Signs Last 8 Hrs Date Time Temp Pulse Resp B/P (MAP) Pulse Ox O2 Delivery O2 Flow Rate FiO2 03/14/17 08:00 Room Air 03/14/17 07:17 36.7 61 16 142/74 (96) 98 Room Air 03/14/17 04:36 36.5 69 20 146/76 (99) 98 Room Air Last Recorded Weight Weight (Kilograms): 81.000 Physical Exam General Appearance: no apparent distress Head: normocephalic, atraumatic Eyes: PERRL, EOMI ENT: pharynx normal Neck: supple Respiratory/Chest: lungs clear, no respiratory distress Cardiovascular: regular rate, rhythm Abdomen/GI: soft (mildly tender to palpation bilateral lower quadrants. No guarding. + bowel sounds) Extremities/Musculoskelatal: no pedal edema Neurologic/Psych: alert, oriented x 3 Family History Cervical cancer Diabetes mellitus Heart disease Hypertension Myocardial infarction Pancreatic cancer Prostate cancer Negative for CKD/ESRD Social History Smokeless Tobacco Use: No Alcohol Use: none Drug Use: none Marital Status: single Housing Status: lives alone Occupation: retired Single, retired. Formerly worked for [employer]. Never a smoker. Laboratory Results Past 24 Hours Test 03/13/17 11:26 03/13/17 16:43 03/13/17 20:05 03/14/17 07:40 Bedside Glucose 131 mg/dl (70-99) 122 mg/dl (70-99) 165 mg/dl (70-99) 109 mg/dl (70-99) Test 03/14/17 09:25 Allergies Coded Allergies: Iodinated Diagnostic Agents (Verified Allergy, Unknown, oil based, severe headaches, 4/6/17) EVENT OCCURED IN 1971, PT STATES HE HAS HAD 3 DIFFERENT WATER BASED IVP DYES WITH NO ISSUE Medications Current Inpatient Medications Medications (Trade) Dose Ordered Sig/Edward Route Start Time Stop Time Status Last Admin Dose Admin Acetaminophen (Tylenol Tab) 650 mg Q4H PRN PO 03/09/17 15:00 04/08/17 14:59 Al Hydrox/Mg Hydrox/Simethicone (Maalox Max Susp) 15 ml Q4H PRN PO 03/09/17 15:00 04/08/17 14:59 Magnesium Hydroxide (Milk Of Magnesia Susp) 30 ml Q6H PRN PO 03/09/17 15:00 04/08/17 14:59 Polyethylene (Miralax Powder Packet) 17 gm DAILY PRN PO 03/09/17 15:00 04/08/17 14:59 03/14/17 07:49 17 GM Ondansetron HCl (Zofran Inj) 4 mg Q6H PRN IV 03/09/17 15:00 04/08/17 14:59 Heparin Sodium (Porcine) (Heparin Sq 5000 Unit/0.5ml) 5,000 unit Q12 SQ 03/09/17 17:00 04/08/17 16:59 03/14/17 07:47 5,000 UNIT Insulin Glargine (Lantus Solostar Pen) 14 units QPM SC 03/09/17 21:00 04/08/17 20:59 03/13/17 21:21 14 UNITS Insulin Aspart (novoLOG ASPART) SLIDING SCALE If C... ACHS SC 03/09/17 16:30 04/08/17 16:29 03/12/17 20:49 2 UNITS Glucose (Glucose 40% Gel) 15-30 GRAMS 15 GRAMS... UD PRN PO 03/09/17 15:00 04/08/17 14:59 Glucose (Glucose Chew Tab) 4-8 Tablets 4 Tabl... UD PRN PO 03/09/17 15:00 04/08/17 14:59 Dextrose (Dextrose 50% 50ML Syringe) 25-50ML OF 50% DW IV FOR... UD PRN IV 03/09/17 15:00 04/08/17 14:59 Glucagon (Glucagon Inj) 1 mg UD PRN SQ 03/09/17 15:00 04/08/17 14:59 Morphine Sulfate (MoRPHine SULFATE INJ) 4 mg Q4H PRN IV 03/09/17 15:00 03/23/17 14:59 03/13/17 15:20 4 MG Atenolol (Tenormin Tab) 50 mg DAILY PO 03/10/17 08:00 04/09/17 07:59 03/14/17 07:43 50 MG Docusate Sodium (coLACE CAP) 100 mg BID PO 03/09/17 20:00 04/08/17 19:59 03/14/17 07:43 100 MG Escitalopram Oxalate (Lexapro Tab) 10 mg DAILY PO 03/10/17 08:00 04/09/17 07:59 Simvastatin (Zocor Tab) 20 mg QPM PO 03/09/17 21:00 04/08/17 20:59 03/13/17 21:14 20 MG Terazosin HCl (Hytrin Cap) 5 mg HS PO 03/09/17 21:00 04/08/17 20:59 03/13/17 21:14 5 MG Aspirin (Ecotrin Tab) 81 mg QAM PO 03/10/17 08:00 04/09/17 07:59 03/14/17 07:43 81 MG Calcitriol (Rocaltrol Cap) 0.25 mcg MoWeFr@0800 PO 03/10/17 08:00 04/09/17 07:59 03/13/17 07:50 0.25 MCG Ferrous Sulfate (Feosol Tab) 325 mg BID PO 03/09/17 20:00 04/08/17 19:59 03/14/17 07:44 325 MG Hydralazine HCl (HydrALAZINE INJ) 10 mg Q4H PRN IV 03/09/17 22:00 04/08/17 21:59 03/13/17 16:44 10 MG Amlodipine Besylate (Norvasc Tab) 10 mg HS PO 03/10/17 21:00 04/09/17 07:59 03/13/17 21:15 10 MG Levofloxacin (Consult) 1 ea UD PRN N/A 03/11/17 09:30 04/10/17 09:29 Prednisone (PredniSONE TAB) 5 mg QAM PO 03/12/17 08:00 04/11/17 07:59 03/14/17 07:44 5 MG Levofloxacin (Levaquin Tab) 250 mg DAILY@11 PO 03/14/17 11:00 03/21/17 10:59 Metronidazole (Flagyl Tab) 500 mg TID PO 03/13/17 14:33 03/21/17 14:32 03/14/17 07:44 500 MG Oxycodone HCl (Roxicodone Immediate Rel Tab) 5 mg Q6 PRN PO 03/13/17 15:30 03/27/17 15:29 03/14/17 03:10 5 MG Hydralazine HCl (Apresoline Tab) 25 mg TID PO 03/13/17 20:00 04/11/17 19:59 03/14/17 07:44 25 MG Impression (1) Acute kidney injury (2) Kidney disease, chronic, stage IV (GFR 15-29 ml/min) (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 Christy has acute on chronic kidney injury (baseline creatinine 3.0 - 3.3) due to acute inflammation in the setting of BETSY inhibitor therapy. Volume status and electrolyte balance remain acceptable at this time. He is s/p L radical nephrectomy 10/06 due to clear cell carcinoma of the kidney. He has metastasis to the lymph nodes. Mr. Christy was intolerant of Sutent therapy due to hypertension and nephrotic syndrome. He was recently transitioned to Opdivo therapy. Mr. Christy has a h/o diverticulitis and is s/p partial colectomy 2009. He was admitted with abdominal pain and CT findings suggest colitis. His inflammation may be related to infection or autoimmune related to Opdivo therapy. Recommendations ACUTE KIDNEY INJURY: -- Continue to hold Lisinopril and Furosemide. Patient is diuresing on his own. -- Abdominal CT report reviewed. No obstruction of the right kidney reported -- Urinalysis was negative for ATN casts. UPCR shows high grade proteinuria -- Protect nondominant arm (left) for possible dialysis access in the future -- Awaiting PRP results this am CHRONIC KIDNEY DISEASE: -- Patient has solitary functioning right kidney -- Baseline creatinine has been 3.0 - 3.3 -- Abdominal CT shows enlarging complex cyst/mass on right kidney. Patient will require Urology follow up and possibly MRI once condition has stabilized HYPERTENSION: -- Continue Amlodipine and Metoprolol for blood pressure management. Patient is diuresing on his own. Continue to monitor blood pressure. GI: -- Agree with empiric antibiotic therapy for treatment of colitis -- Consider low dose steroid therapy (Prednisone 20 - 40 mg daily) until abdominal pain resolves
[2017-03-14 10:08] LABS: BUN/CREATININE RATIO 12.7 (10-20); CALCIUM 8.7 mg/dl (8.5-10.1); CREATININE 3.9 mg/dl (0.60-1.40); POTASSIUM 3.5 mmol/L (3.5-5.1)
[2017-03-14] MEDS: LEVOFLOXACIN 250 MG TAB PO SCH (10:55)
[2017-03-14 11:32] VITALS: BP 166/76; PULSE 55; TEMP 36.6; O2SAT 98
[2017-03-14] MEDS: MoRPHine SULFATE 4 MG/ML 1 ML CARP\\VIAL IV PRN (14:35)
[2017-03-14 15:10] VITALS: BP 176/72; PULSE 61; TEMP 36.7; O2SAT 97
[2017-03-14] MEDS: SIMVASTATIN 20 MG TAB PO SCH (19:16)
[2017-03-14 19:19] VITALS: BP 176/94; PULSE 58; TEMP 36.9; O2SAT 97
[2017-03-14] MEDS: AMLODIPINE BESYLATE 5 MG TAB PO SCH (19:57)
[2017-03-14] MEDS: INSULIN GLARGINE SOLOSTAR 100 UNITS/ML 3 ML PEN SC SCH (20:00)
--- NOTE | 2017-03-14 23:12 | Progress Note ---
Subjective Date of Service: Mar 14, 2017. Subjective Pt evaluation today including: conversation w/ patient, physical exam, lab review, conversation w/ senior talent management consultant, review of inpatient medication list Pain: less LLQ pain today, but still moderate PO Intake: tolerating low fiber diet Voiding: no voiding problems had a formed BM this AM, was small, no diarrhea still with LLQ pain, only slight improvement, pain definitely did not get worse with advancing diet afebrile, WBC had been normal reviewed labs, Cr up to 3.9, d/w Dr. eBll, will watch for now, no fluids Problem List Medical Problems: (1) Acute dyspnea Status: Acute (2) Chronic kidney disease Status: Acute (3) Renal cell carcinoma Status: Acute Review of Systems Abdomen: + pain (LLQ) All Other Systems: Reviewed and Negative Medications Current Inpatient Medications Medications (Trade) Dose Ordered Sig/Edward Route Start Time Stop Time Status Last Admin Dose Admin Acetaminophen (Tylenol Tab) 650 mg Q4H PRN PO 03/09/17 15:00 04/08/17 14:59 Al Hydrox/Mg Hydrox/Simethicone (Maalox Max Susp) 15 ml Q4H PRN PO 03/09/17 15:00 04/08/17 14:59 Magnesium Hydroxide (Milk Of Magnesia Susp) 30 ml Q6H PRN PO 03/09/17 15:00 04/08/17 14:59 Polyethylene (Miralax Powder Packet) 17 gm DAILY PRN PO 03/09/17 15:00 04/08/17 14:59 03/14/17 07:49 17 GM Ondansetron HCl (Zofran Inj) 4 mg Q6H PRN IV 03/09/17 15:00 04/08/17 14:59 Heparin Sodium (Porcine) (Heparin Sq 5000 Unit/0.5ml) 5,000 unit Q12 SQ 03/09/17 17:00 04/08/17 16:59 03/14/17 19:23 5,000 UNIT Insulin Glargine (Lantus Solostar Pen) 14 units QPM SC 03/09/17 21:00 04/08/17 20:59 03/14/17 20:00 14 UNITS Insulin Aspart (novoLOG ASPART) SLIDING SCALE If C... ACHS SC 03/09/17 16:30 04/08/17 16:29 03/12/17 20:49 2 UNITS Glucose (Glucose 40% Gel) 15-30 GRAMS 15 GRAMS... UD PRN PO 03/09/17 15:00 04/08/17 14:59 Glucose (Glucose Chew Tab) 4-8 Tablets 4 Tabl... UD PRN PO 03/09/17 15:00 04/08/17 14:59 Dextrose (Dextrose 50% 50ML Syringe) 25-50ML OF 50% DW IV FOR... UD PRN IV 03/09/17 15:00 04/08/17 14:59 Glucagon (Glucagon Inj) 1 mg UD PRN SQ 03/09/17 15:00 04/08/17 14:59 Morphine Sulfate (MoRPHine SULFATE INJ) 4 mg Q4H PRN IV 03/09/17 15:00 03/23/17 14:59 03/14/17 14:35 4 MG Atenolol (Tenormin Tab) 50 mg DAILY PO 03/10/17 08:00 04/09/17 07:59 03/14/17 07:43 50 MG Docusate Sodium (coLACE CAP) 100 mg BID PO 03/09/17 20:00 04/08/17 19:59 03/14/17 19:16 100 MG Escitalopram Oxalate (Lexapro Tab) 10 mg DAILY PO 03/10/17 08:00 04/09/17 07:59 Simvastatin (Zocor Tab) 20 mg QPM PO 03/09/17 21:00 04/08/17 20:59 03/14/17 19:16 20 MG Terazosin HCl (Hytrin Cap) 5 mg HS PO 03/09/17 21:00 04/08/17 20:59 03/14/17 19:17 5 MG Aspirin (Ecotrin Tab) 81 mg QAM PO 03/10/17 08:00 04/09/17 07:59 03/14/17 07:43 81 MG Calcitriol (Rocaltrol Cap) 0.25 mcg MoWeFr@0800 PO 03/10/17 08:00 04/09/17 07:59 03/13/17 07:50 0.25 MCG Ferrous Sulfate (Feosol Tab) 325 mg BID PO 03/09/17 20:00 04/08/17 19:59 03/14/17 19:16 325 MG Hydralazine HCl (HydrALAZINE INJ) 10 mg Q4H PRN IV 03/09/17 22:00 04/08/17 21:59 03/13/17 16:44 10 MG Amlodipine Besylate (Norvasc Tab) 10 mg HS PO 03/10/17 21:00 04/09/17 07:59 03/14/17 19:57 10 MG Levofloxacin (Consult) 1 ea UD PRN N/A 03/11/17 09:30 04/10/17 09:29 Prednisone (PredniSONE TAB) 5 mg QAM PO 03/12/17 08:00 04/11/17 07:59 03/14/17 07:44 5 MG Levofloxacin (Levaquin Tab) 250 mg DAILY@11 PO 03/14/17 11:00 03/21/17 10:59 03/14/17 10:55 250 MG Metronidazole (Flagyl Tab) 500 mg TID PO 03/13/17 14:33 03/21/17 14:32 03/14/17 19:57 500 MG Oxycodone HCl (Roxicodone Immediate Rel Tab) 5 mg Q6 PRN PO 03/13/17 15:30 03/27/17 15:29 03/14/17 18:31 5 MG Hydralazine HCl (Apresoline Tab) 25 mg TID PO 03/13/17 20:00 04/11/17 19:59 03/14/17 19:16 25 MG Objective Vital Signs Date Time Temp Pulse Resp B/P (MAP) Pulse Ox O2 Delivery O2 Flow Rate FiO2 03/14/17 20:00 Room Air 03/14/17 19:19 36.9 58 20 176/94 (121) 97 Room Air 03/14/17 16:00 Room Air 03/14/17 15:10 36.7 61 18 176/72 (106) 97 Room Air 03/14/17 11:32 36.6 55 16 166/76 (106) 98 Room Air 03/14/17 08:00 Room Air 03/14/17 07:17 36.7 61 16 142/74 (96) 98 Room Air 03/14/17 04:36 36.5 69 20 146/76 (99) 98 Room Air 03/14/17 00:00 Room Air 03/13/17 23:57 36.7 63 20 136/72 (93) 98 Room Air Physical Exam General Appearance: WD/WN, no apparent distress Eyes: normal inspection, EOMI, sclerae normal ENT: normal ENT inspection, hearing grossly normal, pharynx normal Neck: supple, no adenopathy, no JVD, trachea midline Respiratory/Chest: chest non-tender, lungs clear, normal breath sounds, no respiratory distress, no accessory muscle use Cardiovascular: regular rate, rhythm, no edema, no gallop, no JVD, no murmur Abdomen: soft, no organomegaly, + abnormal bowel sounds (hyperactive), + tenderness (LLQ, no rebound or rigidity) Extremities: normal range of motion, non-tender, normal inspection, no pedal edema, no calf tenderness, pelvis stable 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, no motor/sensory deficits, alert, normal mood/affect, oriented x 3 Skin: normal color, warm/dry, no rash Laboratory Results Last 24 Hours Test 03/14/17 07:40 03/14/17 09:25 03/14/17 11:34 03/14/17 16:28 Bedside Glucose 109 mg/dl 117 mg/dl 167 mg/dl Sodium Level 136 mmol/L Potassium Level 3.5 mmol/L Chloride Level 102 mmol/L Carbon Dioxide Level 25 mmol/L Anion Gap 9.0 mmol/L Blood Urea Nitrogen 50 mg/dl Creatinine 3.90 mg/dl Est Creatinine Clear Calc Drug Dose 20.0 ml/min Estimated GFR () 17.8 Estimated GFR (Non- 15.4 BUN/Creatinine Ratio 12.7 Random Glucose 191 mg/dl Calcium Level 8.7 mg/dl Test 03/14/17 19:38 Bedside Glucose 177 mg/dl Assessment and Plan 61 y/o male with a history of renal cell carcinoma, s/p resection with metastases, initially with suspected Opdivo induced colitis, here with abdominal pain and low grade fever at home, now thought to have more of an acute diverticulitis picture. Abdominal pain and diarrhea - initially thought to be inflammatory colitis, now suspect diverticulitis, sigmoid continue Levaquin and Flagyl, less improvement today but still slightly better tolerating low residue diet, would not advance further continue to hold steroids, no diarrhea still and the colitis you would expect diarrhea Oxycodone PRN for pain Renal cell carcinoma s/p left nephrectomy 10/22/15. On Opdivo, followed by Oncology -complex cystic lesions indeterminate but growing in size on rt kidney--> unclear etiology -will d/w Oncology but may need Urology consultation as outpt HTN - BP in the 170's systolic -continue amlodipine 10 mg PO qd and atenolol 50 mg PO qd -had to dc lisinopril and lasix due to JOSHUA - continue hydralazine 25mg po tid which was added this admission due to stopping Lisinopril DM II--last HgbA1c 11/07 was 6.3, follow closely as with limited po intake -Insulin sliding scale Acute renal failure in setting of CKD stage IV--baseline creatinine 3.2-3.4--> peaked up to 3.9. likely from poor po intake the day prior to and day of admission - Cr got worse today at 3.9 from 3.4 the day prior, unclear cause, Dr. Bell just wants to watch for now, no fluids -hold lisinopril and lasix -follow PRP -renally dose meds -avoid nephrotoxins Anemia-likely of chronic disease and renal disease-baseline Hgb around 11e ferrous sulfate 325 mg PO BID Anxiety and depression Lexapro 10 mg PO qd BPH terazosin 5 mg PO qd DVT prophylaxis-Heparin 5000 units SC q12h
[2017-03-14 23:42] VITALS: BP 158/68; PULSE 57; TEMP 36.8; O2SAT 97
[2017-03-15] VITALS (7 sets, daily range): BP systolic 144–190; BP diastolic 68–90; PULSE 58–70; TEMP 36.6–36.7; O2SAT 96–99
[2017-03-15] MEDS: OXYCODONE HCL IR 5 MG TAB (IMMEDIATE RELEASE) PO PRN ×3 (00:17→19:59)
[2017-03-15 05:51] LABS: BASO % 0.1 %; BASO ABS # 0.01 K/uL (0-0.2); COMPLETE YES; EOS % 2.1 %; HEMATOCRIT 33.6 % (42-52); IG% 0.9 %; LYMPH % 22.4 %; MEAN CELL VOLUME 82.2 fL (80-100); MEAN CORPUSCULAR HEMOGLOBIN 26.4 pg (25-34); MEAN CORPUSCULAR HGB CONC 32.1 g/dl (32-36); MEAN PLATELET VOLUME 9.3 fL (7.4-10.4); MONO % 9.5 %; PLATELET COUNT 206 K/uL (130-400); RED BLOOD COUNT 4.09 M/uL (4.7-6.1); WHITE BLOOD COUNT 8.49 K/uL (4.8-10.8)
[2017-03-15 06:45] LABS: CALCIUM 8.9 mg/dl (8.5-10.1); POTASSIUM 3.6 mmol/L (3.5-5.1)
[2017-03-15] MEDS: METRONIDAZOLE 500 MG TAB PO SCH ×3 (07:57→20:01)
[2017-03-15] MEDS: DOCUSATE SODIUM 100 MG CAP PO SCH ×2 (07:58→20:02)
[2017-03-15] MEDS: ESCITALOPRAM OXALATE 10 MG TAB PO SCH (07:59)
[2017-03-15] MEDS: INSULIN ASPART 100 UNITS/ML 3 ML PEN SC SCH ×4 (08:00→20:58)
[2017-03-15] MEDS: FERROUS SULFATE 325 MG TAB PO SCH ×2 (09:35→20:01)
[2017-03-15] MEDS: ASPIRIN 81 MG ECTAB PO SCH (09:35)
[2017-03-15] MEDS: CALCITRIOL 0.25 MCG CAP PO SCH (09:36)
[2017-03-15] MEDS: HEPARIN SOD 5000 UNIT/0.5 ML CARP SQ SCH ×2 (09:49→21:01)
--- NOTE | 2017-03-15 10:00 | Nephrology Progress Note ---
Nephrology Progress Note Date of Service Mar 15, 2017. Chief Complaint Evaluation of acute on chronic kidney injury Subjective Mr. Christy was seen & examined in his hospital room this morning. He reports continued diffuse abdominal and back discomfort. He is now tolerating a regular diet. He denies difficultly voiding and reports brisk urine output Review of Systems Constitutional: No fever Cardiovascular: No chest pain Respiratory: No dyspnea at rest Abdomen: + pain, No nausea, No vomiting Extremities: No leg edema Integumentary: No rash A complete review of systems was performed. Pertinent positives are noted above. All other systems are negative. Vital Signs Last 8 Hrs Date Time Temp Pulse Resp B/P (MAP) Pulse Ox O2 Delivery O2 Flow Rate FiO2 03/15/17 08:30 96 Room Air 03/15/17 07:18 36.7 62 16 144/75 (98) 96 Room Air 03/15/17 04:09 36.7 70 20 151/68 (95) 98 Room Air Last Recorded Weight Weight (Kilograms): 80.900 Physical Exam General Appearance: no apparent distress Head: normocephalic, atraumatic Eyes: PERRL, EOMI Neck: no adenopathy Respiratory/Chest: lungs clear Cardiovascular: regular rate, rhythm Abdomen/GI: soft, + tenderness (no guarding) Extremities/Musculoskelatal: no pedal edema Neurologic/Psych: alert, oriented x 3 Family History Cervical cancer Diabetes mellitus Heart disease Hypertension Myocardial infarction Pancreatic cancer Prostate cancer Negative for CKD/ESRD Social History Smokeless Tobacco Use: No Alcohol Use: none Drug Use: none Marital Status: single Housing Status: lives alone Occupation: retired Single, retired. Formerly worked for [employer]. Never a smoker. Laboratory Results Past 24 Hours 03/15/17 05:38 Red Blood Count 4.09, Mean Corpuscular Volume 82.2, Mean Corpuscular Hemoglobin 26.4, Mean Corpuscular Hemoglobin Concent 32.1, Mean Platelet Volume 9.3, Neutrophils (%) (Auto) 65.0, Lymphocytes (%) (Auto) 22.4, Monocytes (%) (Auto) 9.5, Eosinophils (%) (Auto) 2.1, Basophils (%) (Auto) 0.1, Neutrophils # (Auto) 5.51, Lymphocytes # (Auto) 1.90, Monocytes # (Auto) 0.81, Eosinophils # (Auto) 0.18, Basophils # (Auto) 0.01 03/15/17 05:38 Test 03/14/17 11:34 03/14/17 16:28 03/14/17 19:38 03/15/17 05:38 Bedside Glucose 117 mg/dl (70-99) 167 mg/dl (70-99) 177 mg/dl (70-99) White Blood Count 8.49 K/uL (4.8-10.8) Red Blood Count 4.09 M/uL (4.7-6.1) Hemoglobin 10.8 g/dL (14.0-18.0) Hematocrit 33.6 % (42-52) Mean Corpuscular Volume 82.2 fL (80-100) Mean Corpuscular Hemoglobin 26.4 pg (25-34) Mean Corpuscular Hemoglobin Concent 32.1 g/dl (32-36) Platelet Count 206 K/uL (130-400) Mean Platelet Volume 9.3 fL (7.4-10.4) Neutrophils (%) (Auto) 65.0 % Lymphocytes (%) (Auto) 22.4 % Monocytes (%) (Auto) 9.5 % Eosinophils (%) (Auto) 2.1 % Basophils (%) (Auto) 0.1 % Neutrophils # (Auto) 5.51 K/uL (1.4-6.5) Lymphocytes # (Auto) 1.90 K/uL (1.2-3.4) Monocytes # (Auto) 0.81 K/uL (0.11-0.59) Eosinophils # (Auto) 0.18 K/uL (0-0.5) Basophils # (Auto) 0.01 K/uL (0-0.2) RDW Standard Deviation 43.8 fL (36.4-46.3) RDW Coefficient of Variation 14.7 % (11.5-14.5) Immature Granulocyte % (Auto) 0.9 % Immature Granulocyte # (Auto) 0.08 K/uL (0.00-0.02) Anion Gap 6.0 mmol/L (3-11) Est Creatinine Clear Calc Drug Dose 19.5 ml/min Estimated GFR () 17.3 Estimated GFR (Non- 14.9 BUN/Creatinine Ratio 13.0 (10-20) Calcium Level 8.9 mg/dl (8.5-10.1) Test 03/15/17 07:37 Bedside Glucose 118 mg/dl (70-99) Allergies Coded Allergies: Iodinated Diagnostic Agents (Verified Allergy, Unknown, oil based, severe headaches, 10/27/16) EVENT OCCURED IN 1971, PT STATES HE HAS HAD 3 DIFFERENT WATER BASED IVP DYES WITH NO ISSUE Medications Current Inpatient Medications Medications (Trade) Dose Ordered Sig/Edward Route Start Time Stop Time Status Last Admin Dose Admin Acetaminophen (Tylenol Tab) 650 mg Q4H PRN PO 03/09/17 15:00 04/08/17 14:59 Al Hydrox/Mg Hydrox/Simethicone (Maalox Max Susp) 15 ml Q4H PRN PO 03/09/17 15:00 04/08/17 14:59 Magnesium Hydroxide (Milk Of Magnesia Susp) 30 ml Q6H PRN PO 03/09/17 15:00 04/08/17 14:59 Polyethylene (Miralax Powder Packet) 17 gm DAILY PRN PO 03/09/17 15:00 04/08/17 14:59 03/14/17 07:49 17 GM Ondansetron HCl (Zofran Inj) 4 mg Q6H PRN IV 03/09/17 15:00 04/08/17 14:59 Heparin Sodium (Porcine) (Heparin Sq 5000 Unit/0.5ml) 5,000 unit Q12 SQ 03/09/17 17:00 04/08/17 16:59 03/15/17 09:49 5,000 UNIT Insulin Glargine (Lantus Solostar Pen) 14 units QPM SC 03/09/17 21:00 04/08/17 20:59 03/14/17 20:00 14 UNITS Insulin Aspart (novoLOG ASPART) SLIDING SCALE If C... ACHS SC 03/09/17 16:30 04/08/17 16:29 03/12/17 20:49 2 UNITS Glucose (Glucose 40% Gel) 15-30 GRAMS 15 GRAMS... UD PRN PO 03/09/17 15:00 04/08/17 14:59 Glucose (Glucose Chew Tab) 4-8 Tablets 4 Tabl... UD PRN PO 03/09/17 15:00 04/08/17 14:59 Dextrose (Dextrose 50% 50ML Syringe) 25-50ML OF 50% DW IV FOR... UD PRN IV 03/09/17 15:00 04/08/17 14:59 Glucagon (Glucagon Inj) 1 mg UD PRN SQ 03/09/17 15:00 04/08/17 14:59 Morphine Sulfate (MoRPHine SULFATE INJ) 4 mg Q4H PRN IV 03/09/17 15:00 03/23/17 14:59 03/14/17 14:35 4 MG Atenolol (Tenormin Tab) 50 mg DAILY PO 03/10/17 08:00 04/09/17 07:59 03/15/17 09:36 50 MG Docusate Sodium (coLACE CAP) 100 mg BID PO 03/09/17 20:00 04/08/17 19:59 03/15/17 07:58 100 MG Escitalopram Oxalate (Lexapro Tab) 10 mg DAILY PO 03/10/17 08:00 04/09/17 07:59 Simvastatin (Zocor Tab) 20 mg QPM PO 03/09/17 21:00 04/08/17 20:59 03/14/17 19:16 20 MG Terazosin HCl (Hytrin Cap) 5 mg HS PO 03/09/17 21:00 04/08/17 20:59 03/14/17 19:17 5 MG Aspirin (Ecotrin Tab) 81 mg QAM PO 03/10/17 08:00 04/09/17 07:59 03/15/17 09:35 81 MG Calcitriol (Rocaltrol Cap) 0.25 mcg MoWeFr@0800 PO 03/10/17 08:00 04/09/17 07:59 03/15/17 09:36 0.25 MCG Ferrous Sulfate (Feosol Tab) 325 mg BID PO 03/09/17 20:00 04/08/17 19:59 03/15/17 09:35 325 MG Hydralazine HCl (HydrALAZINE INJ) 10 mg Q4H PRN IV 03/09/17 22:00 04/08/17 21:59 03/13/17 16:44 10 MG Amlodipine Besylate (Norvasc Tab) 10 mg HS PO 03/10/17 21:00 04/09/17 07:59 03/14/17 19:57 10 MG Levofloxacin (Consult) 1 ea UD PRN N/A 03/11/17 09:30 04/10/17 09:29 Prednisone (PredniSONE TAB) 5 mg QAM PO 03/12/17 08:00 04/11/17 07:59 03/15/17 07:59 5 MG Levofloxacin (Levaquin Tab) 250 mg DAILY@11 PO 03/14/17 11:00 03/21/17 10:59 03/14/17 10:55 250 MG Metronidazole (Flagyl Tab) 500 mg TID PO 03/13/17 14:33 03/21/17 14:32 03/15/17 07:57 500 MG Oxycodone HCl (Roxicodone Immediate Rel Tab) 5 mg Q6 PRN PO 03/13/17 15:30 03/27/17 15:29 03/15/17 07:57 5 MG Hydralazine HCl (Apresoline Tab) 25 mg TID PO 03/13/17 20:00 04/11/17 19:59 03/15/17 07:58 25 MG Impression (1) Acute kidney injury (2) Kidney disease, chronic, stage IV (GFR 15-29 ml/min) (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 Christy has acute on chronic kidney injury (baseline creatinine 3.0 - 3.3) due to acute inflammation in the setting of BETSY inhibitor therapy. Volume status and electrolyte balance remain acceptable at this time. He is s/p L radical nephrectomy 10/06 due to clear cell carcinoma of the kidney. He has metastasis to the lymph nodes. Mr. Christy was intolerant of Sutent therapy due to hypertension and nephrotic syndrome. He was recently transitioned to Opdivo therapy. Mr. Christy has a h/o diverticulitis and is s/p partial colectomy 2009. He was admitted with abdominal pain and CT findings suggest colitis. His inflammation may be related to infection or autoimmune related to Opdivo therapy. Recommendations ACUTE KIDNEY INJURY: -- Kidney function continues to decline. Although weight is unchanged, I&O's show net 6 L diuresis since admission. Patient is mildly volume contracted on physical exam. Will check FeNa and provide gentle hydration. Will recheck PRP this afternoon. -- Continue to hold Lisinopril and Furosemide. -- No obstruction of the right kidney reported on abdominal CT 03/09 -- Urinalysis was negative for ATN casts. UPCR shows high grade proteinuria -- Protect nondominant arm (left) for possible dialysis access in the future CHRONIC KIDNEY DISEASE: -- Patient has solitary functioning right kidney -- Baseline creatinine has been 3.0 - 3.3 -- Abdominal CT shows enlarging complex cyst/mass on right kidney. Patient will require Urology follow up and possibly MRI once condition has stabilized HYPERTENSION: -- Continue Amlodipine and Metoprolol for blood pressure management. GI: -- Agree with empiric antibiotic therapy for treatment of colitis -- Patient has persistent abdominal discomfort. Will check ESR. Recommend primary service increase steroid therapy (prednisone 30 - 40 mg daily) until inflammation abates.
[2017-03-15] MEDS: LEVOFLOXACIN 250 MG TAB PO SCH (11:03)
[2017-03-15] MEDS: SODIUM CHLORIDE 0.9% 1000ML 1,000 ML IV SCH ×2 (11:03→20:56)
[2017-03-15] MEDS: POLYETHYLENE (MIRALAX) 17 GM PACK PO PRN ×2 (11:20→14:48)
[2017-03-15 12:50] LABS: URINE APPEARANCE CLEAR (CLEAR); URINE BILIRUBIN NEG (NEG); URINE COLOR YELLOW; URINE EPITHELIAL CELL AUTO 0-5 /lpf (0-5); URINE NITRITE NEG (NEG); URINE SPECIFIC GRAVITY 1.012 (1.000-1.030); UROBILINOGEN NEG (NEG)
[2017-03-15 12:56] LABS: MANUAL MICROSCOPIC REQUIRED? NO; REVIEW REQ? NO
[2017-03-15] MEDS: MoRPHine SULFATE 4 MG/ML 1 ML CARP\\VIAL IV PRN (14:53)
--- NOTE | 2017-03-15 15:20 | Progress Note ---
Subjective Date of Service: Mar 15, 2017. Subjective this pt is still with some mild abdominal pain, still no diarrhea and his chronic back pain Problem List Medical Problems: (1) Acute dyspnea Status: Acute (2) Chronic kidney disease Status: Acute (3) Renal cell carcinoma Status: Acute Review of Systems Constitutional: + weakness, No fever, No chills, No fatigue Respiratory: No cough Cardiac: No chest pain, No edema Abdomen: + pain, No nausea, No vomiting, No diarrhea, No constipation Musculoskeletal: + joint pain, + muscle pain, No swelling Male : No dysuria, No urinary frequency Psychiatric: No depression symptoms, No anhedonism Objective Vital Signs Date Time Temp Pulse Resp B/P (MAP) Pulse Ox O2 Delivery O2 Flow Rate FiO2 03/15/17 07:18 36.7 62 16 144/75 (98) 96 Room Air 03/15/17 04:09 36.7 70 20 151/68 (95) 98 Room Air 03/15/17 00:00 Room Air 03/14/17 23:42 36.8 57 20 158/68 (98) 97 Room Air 03/14/17 20:00 Room Air 03/14/17 19:19 36.9 58 20 176/94 (121) 97 Room Air 03/14/17 16:00 Room Air 03/14/17 15:10 36.7 61 18 176/72 (106) 97 Room Air 03/14/17 11:32 36.6 55 16 166/76 (106) 98 Room Air Physical Exam General Appearance: WD/WN, + mild distress Eyes: PERRL, EOMI Neck: supple, no JVD Respiratory/Chest: chest non-tender, lungs clear, normal breath sounds Cardiovascular: regular rate, rhythm, no murmur Abdomen: normal bowel sounds, soft, + distended, + tenderness Extremities: no pedal edema, no calf tenderness Neurologic/Psychiatric: alert, oriented x 3 Laboratory Results Last 24 Hours Test 03/14/17 09:25 03/14/17 11:34 03/14/17 16:28 03/14/17 19:38 Sodium Level 136 mmol/L Potassium Level 3.5 mmol/L Chloride Level 102 mmol/L Carbon Dioxide Level 25 mmol/L Anion Gap 9.0 mmol/L Blood Urea Nitrogen 50 mg/dl Creatinine 3.90 mg/dl Est Creatinine Clear Calc Drug Dose 20.0 ml/min Estimated GFR () 17.8 Estimated GFR (Non- 15.4 BUN/Creatinine Ratio 12.7 Random Glucose 191 mg/dl Calcium Level 8.7 mg/dl Bedside Glucose 117 mg/dl 167 mg/dl 177 mg/dl Test 03/15/17 05:38 03/15/17 07:37 White Blood Count 8.49 K/uL Red Blood Count 4.09 M/uL Hemoglobin 10.8 g/dL Hematocrit 33.6 % Mean Corpuscular Volume 82.2 fL Mean Corpuscular Hemoglobin 26.4 pg Mean Corpuscular Hemoglobin Concent 32.1 g/dl Platelet Count 206 K/uL Mean Platelet Volume 9.3 fL Neutrophils (%) (Auto) 65.0 % Lymphocytes (%) (Auto) 22.4 % Monocytes (%) (Auto) 9.5 % Eosinophils (%) (Auto) 2.1 % Basophils (%) (Auto) 0.1 % Neutrophils # (Auto) 5.51 K/uL Lymphocytes # (Auto) 1.90 K/uL Monocytes # (Auto) 0.81 K/uL Eosinophils # (Auto) 0.18 K/uL Basophils # (Auto) 0.01 K/uL RDW Standard Deviation 43.8 fL RDW Coefficient of Variation 14.7 % Immature Granulocyte % (Auto) 0.9 % Immature Granulocyte # (Auto) 0.08 K/uL Sodium Level 138 mmol/L Potassium Level 3.6 mmol/L Chloride Level 106 mmol/L Carbon Dioxide Level 26 mmol/L Anion Gap 6.0 mmol/L Blood Urea Nitrogen 52 mg/dl Creatinine 4.00 mg/dl Est Creatinine Clear Calc Drug Dose 19.5 ml/min Estimated GFR () 17.3 Estimated GFR (Non- 14.9 BUN/Creatinine Ratio 13.0 Random Glucose 127 mg/dl Calcium Level 8.9 mg/dl Bedside Glucose 118 mg/dl Assessment and Plan 61 y/o male with a history of renal cell carcinoma, s/p resection with metastases, initially with suspected Opdivo induced colitis, here with abdominal pain and low grade fever at home, now thought to have more of an acute diverticulitis picture. Abdominal pain and diarrhea - initially thought to be inflammatory colitis, now suspect diverticulitis, sigmoid, still no diarrhea continue Levaquin and Flagyl, tolerating low residue diet, continue to hold steroids Oxycodone PRN for pain Renal cell carcinoma s/p left nephrectomy 10/22/15. followed by Oncology -complex cystic lesions indeterminate but growing in size on rt kidney--> no additional imaging yet, if not improving consider U/S HTN - BP variable up and down, amlodipine 10 mg PO qd and atenolol 50 mg PO qd -had to dc lisinopril and lasix due to JOSHUA hydralazine 25mg po tid which was added this admission due to stopping Lisinopril DM II--last HgbA1c 11/07 was 6.3, -Insulin sliding scale as with limited po intake Acute renal failure in setting of CKD stage IV--baseline creatinine 3.2-3.4- climbing to 4's has solitary kidney with some cystic changes Dr. Bell following in consult added IVF 03/15 -hold lisinopril and lasix Anemia-likely of chronic disease and renal disease-baseline Hgb around 11e ferrous sulfate 325 mg PO BID Anxiety and depression Lexapro 10 mg PO qd BPH terazosin 5 mg PO qd DVT prophylaxis-Heparin 5000 units SC q12h
[2017-03-15 15:51] LABS: BUN/CREATININE RATIO 13.2 (10-20); CALCIUM 8.8 mg/dl (8.5-10.1); CREATININE 3.9 mg/dl (0.60-1.40); POTASSIUM 4.1 mmol/L (3.5-5.1)
[2017-03-15] MEDS: SIMVASTATIN 20 MG TAB PO SCH (20:03)
[2017-03-15] MEDS: AMLODIPINE BESYLATE 5 MG TAB PO SCH (20:05)
[2017-03-15] MEDS: INSULIN GLARGINE SOLOSTAR 100 UNITS/ML 3 ML PEN SC SCH (21:01)
[2017-03-16] MEDS: OXYCODONE HCL IR 5 MG TAB (IMMEDIATE RELEASE) PO PRN ×2 (03:25→11:35)
[2017-03-16 03:55] VITALS: BP 167/80; PULSE 63; TEMP 36.8; O2SAT 98
[2017-03-16] MEDS: SODIUM CHLORIDE 0.9% 1000ML 1,000 ML IV SCH ×2 (05:58→16:23)
[2017-03-16 06:38] LABS: BUN/CREATININE RATIO 12.4 (10-20); CALCIUM 8.5 mg/dl (8.5-10.1); CREATININE 3.7 mg/dl (0.60-1.40); POTASSIUM 3.8 mmol/L (3.5-5.1)
[2017-03-16 07:31] VITALS: BP 149/68; PULSE 68; TEMP 36.8; O2SAT 98
[2017-03-16] MEDS: METRONIDAZOLE 500 MG TAB PO SCH ×3 (08:05→20:15)
[2017-03-16] MEDS: ASPIRIN 81 MG ECTAB PO SCH (08:05)
[2017-03-16] MEDS: ESCITALOPRAM OXALATE 10 MG TAB PO SCH (08:05)
[2017-03-16] MEDS: FERROUS SULFATE 325 MG TAB PO SCH ×2 (08:05→20:15)
[2017-03-16] MEDS: DOCUSATE SODIUM 100 MG CAP PO SCH ×2 (08:06→20:14)
[2017-03-16] MEDS: HEPARIN SOD 5000 UNIT/0.5 ML CARP SQ SCH ×2 (08:12→20:37)
[2017-03-16] MEDS: INSULIN ASPART 100 UNITS/ML 3 ML PEN SC SCH ×4 (08:12→20:36)
--- NOTE | 2017-03-16 10:09 | Nephrology Progress Note ---
Nephrology Progress Note Date of Service Mar 16, 2017. Chief Complaint Evaluation of acute on chronic kidney injury Subjective Mr. Christy was seen & examined in his hospital room this morning. He reports that his abdominal discomfort persists but is mildly improved. He is tolerating a regular diet. Mr. Christy received IV hydration overnight. He currently denies dyspnea or LE edema Review of Systems Constitutional: No fever Cardiovascular: No chest pain Respiratory: No dyspnea at rest Abdomen: No pain, No nausea, No vomiting Extremities: No leg edema A complete review of systems was performed. Pertinent positives are noted above. All other systems are negative. Vital Signs Last 8 Hrs Date Time Temp Pulse Resp B/P (MAP) Pulse Ox O2 Delivery O2 Flow Rate FiO2 03/16/17 08:30 Room Air 03/16/17 07:31 36.8 68 16 149/68 (95) 98 Room Air 03/16/17 03:55 36.8 63 20 167/80 (109) 98 Room Air Last Recorded Weight Weight (Kilograms): 79.800 Physical Exam General Appearance: no apparent distress Head: normocephalic, atraumatic Eyes: PERRL, EOMI Neck: no adenopathy Respiratory/Chest: lungs clear Cardiovascular: regular rate, rhythm Abdomen/GI: soft (hypoactive bowel sounds), + tenderness (mildly tender to palpation in the lower quadrants without guarding) Extremities/Musculoskelatal: no pedal edema Neurologic/Psych: alert, oriented x 3 Family History Cervical cancer Diabetes mellitus Heart disease Hypertension Myocardial infarction Pancreatic cancer Prostate cancer Negative for CKD/ESRD Social History Smokeless Tobacco Use: No Alcohol Use: none Drug Use: none Marital Status: single Housing Status: lives alone Occupation: retired Single, retired. Formerly worked for [employer]. Never a smoker. Laboratory Results Past 24 Hours 03/15/17 15:09 03/16/17 05:44 Test 03/15/17 11:27 03/15/17 15:09 03/15/17 16:42 03/15/17 20:12 Bedside Glucose 180 mg/dl (70-99) 186 mg/dl (70-99) 168 mg/dl (70-99) Anion Gap 7.0 mmol/L (3-11) Est Creatinine Clear Calc Drug Dose 20.0 ml/min Estimated GFR () 17.8 Estimated GFR (Non- 15.4 BUN/Creatinine Ratio 13.2 (10-20) Calcium Level 8.8 mg/dl (8.5-10.1) Test 03/16/17 05:44 03/16/17 07:42 Anion Gap 6.0 mmol/L (3-11) Est Creatinine Clear Calc Drug Dose 21.1 ml/min Estimated GFR () 19.0 Estimated GFR (Non- 16.4 BUN/Creatinine Ratio 12.4 (10-20) Calcium Level 8.5 mg/dl (8.5-10.1) Bedside Glucose 102 mg/dl (70-99) Allergies Coded Allergies: Iodinated Diagnostic Agents (Verified Allergy, Unknown, oil based, severe headaches, 10/27/16) EVENT OCCURED IN 1971, PT STATES HE HAS HAD 3 DIFFERENT WATER BASED IVP DYES WITH NO ISSUE Medications Current Inpatient Medications Medications (Trade) Dose Ordered Sig/Edward Route Start Time Stop Time Status Last Admin Dose Admin Acetaminophen (Tylenol Tab) 650 mg Q4H PRN PO 03/09/17 15:00 04/08/17 14:59 Al Hydrox/Mg Hydrox/Simethicone (Maalox Max Susp) 15 ml Q4H PRN PO 03/09/17 15:00 04/08/17 14:59 Magnesium Hydroxide (Milk Of Magnesia Susp) 30 ml Q6H PRN PO 03/09/17 15:00 04/08/17 14:59 Polyethylene (Miralax Powder Packet) 17 gm DAILY PRN PO 03/09/17 15:00 04/08/17 14:59 03/15/17 14:48 17 GM Ondansetron HCl (Zofran Inj) 4 mg Q6H PRN IV 03/09/17 15:00 04/08/17 14:59 Heparin Sodium (Porcine) (Heparin Sq 5000 Unit/0.5ml) 5,000 unit Q12 SQ 03/09/17 17:00 04/08/17 16:59 03/16/17 08:12 5,000 UNIT Insulin Glargine (Lantus Solostar Pen) 14 units QPM SC 03/09/17 21:00 04/08/17 20:59 03/15/17 21:01 14 UNITS Insulin Aspart (novoLOG ASPART) SLIDING SCALE If C... ACHS SC 03/09/17 16:30 04/08/17 16:29 03/15/17 17:09 1 UNITS Glucose (Glucose 40% Gel) 15-30 GRAMS 15 GRAMS... UD PRN PO 03/09/17 15:00 04/08/17 14:59 Glucose (Glucose Chew Tab) 4-8 Tablets 4 Tabl... UD PRN PO 03/09/17 15:00 04/08/17 14:59 Dextrose (Dextrose 50% 50ML Syringe) 25-50ML OF 50% DW IV FOR... UD PRN IV 03/09/17 15:00 04/08/17 14:59 Glucagon (Glucagon Inj) 1 mg UD PRN SQ 03/09/17 15:00 04/08/17 14:59 Morphine Sulfate (MoRPHine SULFATE INJ) 4 mg Q4H PRN IV 03/09/17 15:00 03/23/17 14:59 03/15/17 14:53 4 MG Atenolol (Tenormin Tab) 50 mg DAILY PO 03/10/17 08:00 04/09/17 07:59 03/16/17 08:05 50 MG Docusate Sodium (coLACE CAP) 100 mg BID PO 03/09/17 20:00 04/08/17 19:59 03/16/17 08:06 100 MG Escitalopram Oxalate (Lexapro Tab) 10 mg DAILY PO 03/10/17 08:00 04/09/17 07:59 03/16/17 08:05 10 MG Simvastatin (Zocor Tab) 20 mg QPM PO 03/09/17 21:00 04/08/17 20:59 03/15/17 20:03 20 MG Terazosin HCl (Hytrin Cap) 5 mg HS PO 03/09/17 21:00 04/08/17 20:59 03/15/17 20:01 5 MG Aspirin (Ecotrin Tab) 81 mg QAM PO 03/10/17 08:00 04/09/17 07:59 03/16/17 08:05 81 MG Calcitriol (Rocaltrol Cap) 0.25 mcg MoWeFr@0800 PO 03/10/17 08:00 04/09/17 07:59 03/15/17 09:36 0.25 MCG Ferrous Sulfate (Feosol Tab) 325 mg BID PO 03/09/17 20:00 04/08/17 19:59 03/16/17 08:05 325 MG Hydralazine HCl (HydrALAZINE INJ) 10 mg Q4H PRN IV 03/09/17 22:00 04/08/17 21:59 03/13/17 16:44 10 MG Amlodipine Besylate (Norvasc Tab) 10 mg HS PO 03/10/17 21:00 04/09/17 07:59 03/15/17 20:05 10 MG Levofloxacin (Consult) 1 ea UD PRN N/A 03/11/17 09:30 04/10/17 09:29 Prednisone (PredniSONE TAB) 5 mg QAM PO 03/12/17 08:00 04/11/17 07:59 03/16/17 08:05 5 MG Levofloxacin (Levaquin Tab) 250 mg DAILY@11 PO 03/14/17 11:00 03/21/17 10:59 03/15/17 11:03 250 MG Metronidazole (Flagyl Tab) 500 mg TID PO 03/13/17 14:33 03/21/17 14:32 03/16/17 08:05 500 MG Oxycodone HCl (Roxicodone Immediate Rel Tab) 5 mg Q6 PRN PO 03/13/17 15:30 03/27/17 15:29 03/16/17 03:25 5 MG Hydralazine HCl (Apresoline Tab) 25 mg TID PO 03/13/17 20:00 04/11/17 19:59 03/16/17 08:04 25 MG Sodium Chloride 1,000 ml @ 100 mls/hr Q10H IV 03/15/17 10:00 04/14/17 09:59 03/16/17 05:58 100 MLS/HR Impression (1) Acute kidney injury (2) Kidney disease, chronic, stage IV (GFR 15-29 ml/min) (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 Christy has acute on chronic kidney injury (baseline creatinine 3.0 - 3.3) due to acute inflammation in the setting of BETSY inhibitor therapy. Volume status and electrolyte balance remain acceptable at this time. He is s/p L radical nephrectomy 10/06 due to clear cell carcinoma of the kidney. He has metastasis to the lymph nodes. Mr. Christy was intolerant of Sutent therapy due to hypertension and nephrotic syndrome. He was recently transitioned to Opdivo therapy. Mr. Christy has a h/o diverticulitis and is s/p partial colectomy 2009. He was admitted with abdominal pain and CT findings suggestive of colitis. His inflammation may be related to infection or autoimmune related to Opdivo therapy. Recommendations ACUTE KIDNEY INJURY: -- Kidney function is mildly improved w/ IV hydration. Patient remains clinically volume contracted. Will continue 0.9NS IV at 100 cc/hr -- Continue to hold Lisinopril and Furosemide. -- No obstruction of the right kidney reported on abdominal CT 03/09 -- Urinalysis was negative for ATN casts. UPCR shows high grade proteinuria -- Protect nondominant arm (left) for possible dialysis access in the future CHRONIC KIDNEY DISEASE: -- Patient has solitary functioning right kidney -- Baseline creatinine has been 3.0 - 3.3 -- Abdominal CT shows enlarging complex cyst/mass on right kidney. Patient will require Urology follow up and possibly MRI once condition has stabilized HYPERTENSION: -- Continue Amlodipine and Metoprolol for blood pressure management. GI: -- Agree with empiric antibiotic therapy for treatment of colitis -- Patient has persistent abdominal discomfort. ESR is mildly elevated. Recommend primary service increase steroid therapy (prednisone 30 - 40 mg daily ) until inflammation abates.
[2017-03-16] MEDS: LEVOFLOXACIN 250 MG TAB PO SCH (11:35)
[2017-03-16 11:39] VITALS: BP 174/81; PULSE 65; TEMP 36.7; O2SAT 98
[2017-03-16 16:09] VITALS: BP 167/86; PULSE 67; O2SAT 98
[2017-03-16] MEDS: MoRPHine SULFATE 4 MG/ML 1 ML CARP\\VIAL IV PRN (17:33)
[2017-03-16 19:26] VITALS: BP 183/81; PULSE 65; TEMP 36.4; O2SAT 97
--- NOTE | 2017-03-16 20:16 | Hospitalist Progress Note ---
Hospitalist Progress Note Date of Service Mar 16, 2017. Subjective Pt evaluation today including: conversation w/ patient, conversation w/ family patient with mild abdominal pain Objective Vital Signs Date Time Temp Pulse Resp B/P (MAP) Pulse Ox O2 Delivery O2 Flow Rate FiO2 03/16/17 19:26 36.4 65 18 183/81 (115) 97 Room Air 03/16/17 17:54 Room Air 03/16/17 16:09 67 18 167/86 (113) 98 Room Air 03/16/17 11:39 36.7 65 18 174/81 (112) 98 03/16/17 08:30 Room Air 03/16/17 07:31 36.8 68 16 149/68 (95) 98 Room Air 03/16/17 03:55 36.8 63 20 167/80 (109) 98 Room Air 03/16/17 00:00 Room Air 03/15/17 23:09 36.6 70 16 156/75 (102) 98 Room Air Physical Exam General Appearance: no apparent distress Eyes: normal inspection ENT: hearing grossly normal Neck: supple Respiratory/Chest: lungs clear Cardiovascular: regular rate, rhythm Abdomen: normal bowel sounds Extremities: normal range of motion Neurologic/Psychiatric: alert Laboratory Results Last 24 Hours Test 03/16/17 05:44 03/16/17 07:42 03/16/17 11:32 03/16/17 17:00 Sodium Level 141 mmol/L Potassium Level 3.8 mmol/L Chloride Level 109 mmol/L Carbon Dioxide Level 26 mmol/L Anion Gap 6.0 mmol/L Blood Urea Nitrogen 46 mg/dl Creatinine 3.70 mg/dl Est Creatinine Clear Calc Drug Dose 21.1 ml/min Estimated GFR () 19.0 Estimated GFR (Non- 16.4 BUN/Creatinine Ratio 12.4 Random Glucose 104 mg/dl Calcium Level 8.5 mg/dl Bedside Glucose 102 mg/dl 140 mg/dl 126 mg/dl Assessment and Plan 61 y/o male with a history of renal cell carcinoma, s/p resection with metastases, initially with suspected Opdivo induced colitis, here with abdominal pain and low grade fever at home, now thought to have more of an acute diverticulitis picture. 1. Abdominal pain and diarrhea - initially thought to be inflammatory colitis, now suspect diverticulitis, sigmoid, still no diarrhea continue Levaquin and Flagyl, tolerating low residue diet, continue to hold steroids Oxycodone PRN for pain 2. Renal cell carcinoma s/p left nephrectomy 10/22/15. followed by Oncology -complex cystic lesions indeterminate but growing in size on rt kidney--> no additional imaging yet, if not improving consider U/S 3. HTN - BP variable up and down, amlodipine 10 mg PO qd and atenolol 50 mg PO qd -had to dc lisinopril and lasix due to JOSHUA hydralazine 25mg po tid which was added this admission due to stopping Lisinopril 4. DM II--last HgbA1c 11/07 was 6.3, -Insulin sliding scale as with limited po intake 5. Acute renal failure in setting of CKD stage IV--baseline creatinine 3.2-3.4- climbing to 4's has solitary kidney with some cystic changes Dr. Bell following in consult added IVF 03/15 -hold lisinopril and lasix creatine is improving continue present mangament Anemia-likely of chronic disease and renal disease-baseline Hgb around 11e ferrous sulfate 325 mg PO BID Anxiety and depression Lexapro 10 mg PO qd BPH terazosin 5 mg PO qd DVT prophylaxis-Heparin 5000 units SC q12h Continued [facility] stay due to: multiple IV medications needed Discharge planning: uncertain
[2017-03-16] MEDS: SIMVASTATIN 20 MG TAB PO SCH (20:17)
[2017-03-16] MEDS: AMLODIPINE BESYLATE 5 MG TAB PO SCH (20:18)
[2017-03-16] MEDS: INSULIN GLARGINE SOLOSTAR 100 UNITS/ML 3 ML PEN SC SCH (20:36)
[2017-03-17] VITALS (7 sets, daily range): BP systolic 144–189; BP diastolic 66–83; PULSE 66–75; TEMP 36.5–36.8; O2SAT 96–98
[2017-03-17] MEDS: OXYCODONE HCL IR 5 MG TAB (IMMEDIATE RELEASE) PO PRN ×3 (00:11→22:13)
[2017-03-17] MEDS: SODIUM CHLORIDE 0.9% 1000ML 1,000 ML IV SCH ×3 (02:03→22:16)
[2017-03-17 06:38] LABS: BUN/CREATININE RATIO 14.6 (10-20); CALCIUM 8.5 mg/dl (8.5-10.1); CREATININE 3.4 mg/dl (0.60-1.40); POTASSIUM 4.2 mmol/L (3.5-5.1)
[2017-03-17] MEDS ORDERED: NURSING DECISION MEDICATION ORDER SCH (07:45)
[2017-03-17] MEDS ORDERED: COUGH DROP (SUGAR FREE) LOZ 24 LOZ/1 BOX ONE (07:54)
[2017-03-17] MEDS: ASPIRIN 81 MG ECTAB PO SCH (08:04)
[2017-03-17] MEDS: ESCITALOPRAM OXALATE 10 MG TAB PO SCH (08:04)
[2017-03-17] MEDS: DOCUSATE SODIUM 100 MG CAP PO SCH ×2 (08:04→20:12)
[2017-03-17] MEDS: METRONIDAZOLE 500 MG TAB PO SCH ×3 (08:04→20:12)
[2017-03-17] MEDS: CALCITRIOL 0.25 MCG CAP PO SCH (08:04)
[2017-03-17] MEDS: FERROUS SULFATE 325 MG TAB PO SCH ×2 (08:05→20:12)
[2017-03-17] MEDS: HEPARIN SOD 5000 UNIT/0.5 ML CARP SQ SCH ×2 (08:47→20:45)
[2017-03-17] MEDS: INSULIN ASPART 100 UNITS/ML 3 ML PEN SC SCH ×4 (08:58→20:43)
[2017-03-17] MEDS ORDERED: COUGH DROP (SUGAR FREE) LOZ 24 LOZ/1 BOX PO PRN (09:00)
[2017-03-17] MEDS ORDERED: NURSING VERBAL MED ORDER ONE (09:30)
[2017-03-17] MEDS: POLYETHYLENE (MIRALAX) 17 GM PACK PO PRN (09:50)
[2017-03-17] MEDS: SENNA 8.6 MG TAB PO PRN (09:50)
[2017-03-17] MEDS: LEVOFLOXACIN 250 MG TAB PO SCH (09:51)
--- NOTE | 2017-03-17 10:25 | Nephrology Progress Note ---
Nephrology Progress Note Date of Service Mar 17, 2017. Chief Complaint Evaluation of acute on chronic kidney injury Subjective Mr. Christy was seen & examined in his hospital room this morning. He reports that he is still having bilateral lower quadrant abdominal pain. However it is mildly improved and he is tolerating a regular diet. He has had constipation but started Miralax yesterday. Mr. Christy reports that he is tolerating gentle hydration without dyspnea or LE swelling Review of Systems Constitutional: No fever Cardiovascular: No chest pain Respiratory: No dyspnea at rest Abdomen: + pain, No nausea, No vomiting Genitourinary - Male: No dysuria Extremities: No leg edema A complete review of systems was performed. Pertinent positives are noted above. All other systems are negative. Vital Signs Last 8 Hrs Date Time Temp Pulse Resp B/P (MAP) Pulse Ox O2 Delivery O2 Flow Rate FiO2 03/17/17 09:00 Room Air 03/17/17 07:37 36.8 75 16 144/66 (92) 97 Room Air 03/17/17 04:31 36.5 69 16 156/83 (107) 96 Room Air Last Recorded Weight Weight (Kilograms): 81.600 Physical Exam General Appearance: no apparent distress Head: normocephalic, atraumatic Eyes: PERRL, EOMI Neck: no adenopathy Respiratory/Chest: lungs clear, no respiratory distress Cardiovascular: regular rate, rhythm Abdomen/GI: soft, + tenderness (mildly tender to palpation in bilateral lower quadrant. No guarding) Extremities/Musculoskelatal: no pedal edema Neurologic/Psych: alert, oriented x 3 Family History Cervical cancer Diabetes mellitus Heart disease Hypertension Myocardial infarction Pancreatic cancer Prostate cancer Negative for CKD/ESRD Social History Smokeless Tobacco Use: No Alcohol Use: none Drug Use: none Marital Status: single Housing Status: lives alone Occupation: retired Single, retired. Formerly worked for [employer]. Never a smoker. Laboratory Results Past 24 Hours 03/17/17 05:23 Test 03/16/17 11:32 03/16/17 17:00 03/16/17 20:29 03/17/17 05:23 Bedside Glucose 140 mg/dl (70-99) 126 mg/dl (70-99) 205 mg/dl (70-99) Anion Gap 7.0 mmol/L (3-11) Est Creatinine Clear Calc Drug Dose 23.0 ml/min Estimated GFR () 21.0 Estimated GFR (Non- 18.2 BUN/Creatinine Ratio 14.6 (10-20) Calcium Level 8.5 mg/dl (8.5-10.1) Test 03/17/17 07:42 Bedside Glucose 137 mg/dl (70-99) Allergies Coded Allergies: Iodinated Diagnostic Agents (Verified Allergy, Unknown, oil based, severe headaches, 10/27/16) EVENT OCCURED IN 1971, PT STATES HE HAS HAD 3 DIFFERENT WATER BASED IVP DYES WITH NO ISSUE Medications Current Inpatient Medications Medications (Trade) Dose Ordered Sig/Edward Route Start Time Stop Time Status Last Admin Dose Admin Acetaminophen (Tylenol Tab) 650 mg Q4H PRN PO 03/09/17 15:00 04/08/17 14:59 Al Hydrox/Mg Hydrox/Simethicone (Maalox Max Susp) 15 ml Q4H PRN PO 03/09/17 15:00 04/08/17 14:59 Magnesium Hydroxide (Milk Of Magnesia Susp) 30 ml Q6H PRN PO 03/09/17 15:00 04/08/17 14:59 Polyethylene (Miralax Powder Packet) 17 gm DAILY PRN PO 03/09/17 15:00 04/08/17 14:59 03/17/17 09:50 17 GM Ondansetron HCl (Zofran Inj) 4 mg Q6H PRN IV 03/09/17 15:00 04/08/17 14:59 Heparin Sodium (Porcine) (Heparin Sq 5000 Unit/0.5ml) 5,000 unit Q12 SQ 03/09/17 17:00 04/08/17 16:59 03/17/17 08:47 5,000 UNIT Insulin Glargine (Lantus Solostar Pen) 14 units QPM SC 03/09/17 21:00 04/08/17 20:59 03/16/17 20:36 14 UNITS Insulin Aspart (novoLOG ASPART) SLIDING SCALE If C... ACHS SC 03/09/17 16:30 04/08/17 16:29 03/16/17 20:36 1 UNITS Glucose (Glucose 40% Gel) 15-30 GRAMS 15 GRAMS... UD PRN PO 03/09/17 15:00 04/08/17 14:59 Glucose (Glucose Chew Tab) 4-8 Tablets 4 Tabl... UD PRN PO 03/09/17 15:00 04/08/17 14:59 Dextrose (Dextrose 50% 50ML Syringe) 25-50ML OF 50% DW IV FOR... UD PRN IV 03/09/17 15:00 04/08/17 14:59 Glucagon (Glucagon Inj) 1 mg UD PRN SQ 03/09/17 15:00 04/08/17 14:59 Morphine Sulfate (MoRPHine SULFATE INJ) 4 mg Q4H PRN IV 03/09/17 15:00 03/23/17 14:59 03/16/17 17:33 4 MG Atenolol (Tenormin Tab) 50 mg DAILY PO 03/10/17 08:00 04/09/17 07:59 03/17/17 08:04 50 MG Docusate Sodium (coLACE CAP) 100 mg BID PO 03/09/17 20:00 04/08/17 19:59 03/17/17 08:04 100 MG Escitalopram Oxalate (Lexapro Tab) 10 mg DAILY PO 03/10/17 08:00 04/09/17 07:59 03/17/17 08:04 10 MG Simvastatin (Zocor Tab) 20 mg QPM PO 03/09/17 21:00 04/08/17 20:59 03/16/17 20:17 20 MG Terazosin HCl (Hytrin Cap) 5 mg HS PO 03/09/17 21:00 04/08/17 20:59 03/16/17 20:18 5 MG Aspirin (Ecotrin Tab) 81 mg QAM PO 03/10/17 08:00 04/09/17 07:59 03/17/17 08:04 81 MG Calcitriol (Rocaltrol Cap) 0.25 mcg MoWeFr@0800 PO 03/10/17 08:00 04/09/17 07:59 03/17/17 08:04 0.25 MCG Ferrous Sulfate (Feosol Tab) 325 mg BID PO 03/09/17 20:00 04/08/17 19:59 03/17/17 08:05 325 MG Hydralazine HCl (HydrALAZINE INJ) 10 mg Q4H PRN IV 03/09/17 22:00 04/08/17 21:59 03/13/17 16:44 10 MG Amlodipine Besylate (Norvasc Tab) 10 mg HS PO 03/10/17 21:00 04/09/17 07:59 03/16/17 20:18 10 MG Levofloxacin (Consult) 1 ea UD PRN N/A 03/11/17 09:30 04/10/17 09:29 Levofloxacin (Levaquin Tab) 250 mg DAILY@11 PO 03/14/17 11:00 03/21/17 10:59 03/17/17 09:51 250 MG Metronidazole (Flagyl Tab) 500 mg TID PO 03/13/17 14:33 03/21/17 14:32 03/17/17 08:04 500 MG Oxycodone HCl (Roxicodone Immediate Rel Tab) 5 mg Q6 PRN PO 03/13/17 15:30 03/27/17 15:29 03/17/17 08:03 5 MG Hydralazine HCl (Apresoline Tab) 25 mg TID PO 03/13/17 20:00 04/11/17 19:59 03/17/17 08:04 25 MG Sodium Chloride 1,000 ml @ 100 mls/hr Q10H IV 03/15/17 10:00 04/14/17 09:59 03/17/17 02:03 100 MLS/HR Prednisone (PredniSONE TAB) 40 mg DAILY PO 03/17/17 08:00 04/16/17 07:59 03/17/17 08:05 40 MG Menthol (Nice Summer) 1 summer PRN PRN PO 03/17/17 09:00 04/16/17 08:59 Senna (Senokot Tab) 17.2 mg DAILY PRN PO 03/17/17 09:30 04/16/17 09:29 03/17/17 09:50 17.2 MG Impression (1) Acute kidney injury (2) Kidney disease, chronic, stage IV (GFR 15-29 ml/min) (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 Christy has acute on chronic kidney injury (baseline creatinine 3.0 - 3.3) due to acute inflammation in the setting of BETSY inhibitor therapy. Volume status and electrolyte balance remain acceptable at this time. He is s/p L radical nephrectomy 10/06 due to clear cell carcinoma of the kidney. He has metastasis to the lymph nodes. Mr. Christy was intolerant of Sutent therapy due to hypertension and nephrotic syndrome. He was recently transitioned to Opdivo therapy. Mr. Christy has a h/o diverticulitis and is s/p partial colectomy 2009. He was admitted with abdominal pain and CT findings suggestive of colitis. His inflammation may be related to infection or autoimmune related to Opdivo therapy. Recommendations ACUTE KIDNEY INJURY: -- Kidney function has improved w/ IV hydration. Patient remains clinically volume contracted. Will continue 0.9NS IV at 100 cc/hr and reassess volume status in am -- Continue to hold Lisinopril and Furosemide. -- No obstruction of the right kidney reported on abdominal CT 03/09 -- Urinalysis was negative for ATN casts. UPCR shows high grade proteinuria -- Protect nondominant arm (left) for possible dialysis access in the future CHRONIC KIDNEY DISEASE: -- Patient has solitary functioning right kidney -- Baseline creatinine has been 3.0 - 3.3 -- Abdominal CT shows enlarging complex cyst/mass on right kidney. Patient will require Urology follow up and possibly MRI once condition has stabilized HYPERTENSION: -- Continue Amlodipine and Metoprolol for blood pressure management. GI: -- Agree with empiric antibiotic therapy for treatment of colitis -- Patient has persistent abdominal discomfort. ESR is mildly elevated. Patient is now on moderate dose Prednisone therapy
[2017-03-17] MEDS: MoRPHine SULFATE 4 MG/ML 1 ML CARP\\VIAL IV PRN (16:22)
[2017-03-17] MEDS: AMLODIPINE BESYLATE 5 MG TAB PO SCH (20:12)
[2017-03-17] MEDS: SIMVASTATIN 20 MG TAB PO SCH (20:12)
[2017-03-17] MEDS: INSULIN GLARGINE SOLOSTAR 100 UNITS/ML 3 ML PEN SC SCH (20:45)
[2017-03-18] VITALS (8 sets, daily range): BP systolic 159–205; BP diastolic 66–93; PULSE 61–77; TEMP 36.6–36.7; O2SAT 97–98
--- NOTE | 2017-03-18 04:06 | Hospitalist Progress Note ---
Hospitalist Progress Note Date of Service Mar 17, 2017. Subjective Pt evaluation today including: conversation w/ patient feeling better Objective Vital Signs Date Time Temp Pulse Resp B/P (MAP) Pulse Ox O2 Delivery O2 Flow Rate FiO2 03/17/17 09:00 Room Air 03/17/17 07:37 36.8 75 16 144/66 (92) 97 Room Air 03/17/17 04:31 36.5 69 16 156/83 (107) 96 Room Air 03/17/17 00:14 36.7 66 20 169/82 (111) 97 Room Air 03/17/17 00:00 Room Air 03/16/17 19:26 36.4 65 18 183/81 (115) 97 Room Air 03/16/17 17:54 Room Air 03/16/17 16:09 67 18 167/86 (113) 98 Room Air 03/16/17 11:39 36.7 65 18 174/81 (112) 98 Physical Exam General Appearance: no apparent distress ENT: hearing grossly normal Neck: trachea midline Respiratory/Chest: lungs clear Cardiovascular: regular rate, rhythm Abdomen: normal bowel sounds Extremities: non-tender Laboratory Results Last 24 Hours Test 03/16/17 11:32 03/16/17 17:00 03/16/17 20:29 03/17/17 05:23 Bedside Glucose 140 mg/dl 126 mg/dl 205 mg/dl Sodium Level 139 mmol/L Potassium Level 4.2 mmol/L Chloride Level 110 mmol/L Carbon Dioxide Level 22 mmol/L Anion Gap 7.0 mmol/L Blood Urea Nitrogen 50 mg/dl Creatinine 3.40 mg/dl Est Creatinine Clear Calc Drug Dose 23.0 ml/min Estimated GFR () 21.0 Estimated GFR (Non- 18.2 BUN/Creatinine Ratio 14.6 Random Glucose 153 mg/dl Calcium Level 8.5 mg/dl Test 03/17/17 07:42 Bedside Glucose 137 mg/dl Assessment and Plan 61 y/o male with a history of renal cell carcinoma, s/p resection with metastases, initially with suspected Opdivo induced colitis, here with abdominal pain and low grade fever at home, now thought to have more of an acute diverticulitis picture. 1. Abdominal pain and diarrhea - initially thought to be inflammatory colitis, now suspect diverticulitis, sigmoid, still no diarrhea continue Levaquin and Flagyl, tolerating low residue diet, continue to hold steroids Oxycodone PRN for pain 2. Renal cell carcinoma s/p left nephrectomy 10/22/15. followed by Oncology -complex cystic lesions indeterminate but growing in size on rt kidney--> no additional imaging yet, if not improving consider U/S 3. HTN - BP variable up and down, amlodipine 10 mg PO qd and atenolol 50 mg PO qd -had to dc lisinopril and lasix due to JOSHUA hydralazine 25mg po tid which was added this admission due to stopping Lisinopril 4. DM II--last HgbA1c 11/07 was 6.3, -Insulin sliding scale as with limited po intake 5. Acute renal failure in setting of CKD stage IV--baseline creatinine 3.2-3.4- climbing to 4's has solitary kidney with some cystic changes Dr. Bell following in consult added IVF 03/15 -hold lisinopril and lasix creatine is improving continue present mangament Anemia-likely of chronic disease and renal disease-baseline Hgb around 11e ferrous sulfate 325 mg PO BID Anxiety and depression Lexapro 10 mg PO qd BPH terazosin 5 mg PO qd DVT prophylaxis-Heparin 5000 units SC q12h
[2017-03-18] MEDS: OXYCODONE HCL IR 5 MG TAB (IMMEDIATE RELEASE) PO PRN ×2 (07:58→15:13)
[2017-03-18] MEDS: POLYETHYLENE (MIRALAX) 17 GM PACK PO PRN (08:12)
[2017-03-18] MEDS: METRONIDAZOLE 500 MG TAB PO SCH ×3 (08:13→19:46)
[2017-03-18] MEDS: FERROUS SULFATE 325 MG TAB PO SCH ×2 (08:13→19:48)
[2017-03-18] MEDS: DOCUSATE SODIUM 100 MG CAP PO SCH ×2 (08:13→19:48)
[2017-03-18] MEDS: ESCITALOPRAM OXALATE 10 MG TAB PO SCH (08:13)
[2017-03-18] MEDS: ASPIRIN 81 MG ECTAB PO SCH (08:14)
[2017-03-18] MEDS: SENNA 8.6 MG TAB PO PRN (08:16)
[2017-03-18] MEDS: HEPARIN SOD 5000 UNIT/0.5 ML CARP SQ SCH ×2 (08:18→21:45)
[2017-03-18 08:22] LABS: HEMATOCRIT 33.3 % (42-52); MEAN CELL VOLUME 81.2 fL (80-100); MEAN CORPUSCULAR HEMOGLOBIN 26.3 pg (25-34); MEAN CORPUSCULAR HGB CONC 32.4 g/dl (32-36); MEAN PLATELET VOLUME 10.1 fL (7.4-10.4); PLATELET COUNT 204 K/uL (130-400); WHITE BLOOD COUNT 11.21 K/uL (4.8-10.8)
[2017-03-18 08:51] LABS: BUN/CREATININE RATIO 14.6 (10-20); CALCIUM 8.5 mg/dl (8.5-10.1); CREATININE 3.4 mg/dl (0.60-1.40); POTASSIUM 4.1 mmol/L (3.5-5.1)
[2017-03-18] MEDS: SODIUM CHLORIDE 0.9% 1000ML 1,000 ML IV SCH (09:10)
[2017-03-18] MEDS: INSULIN ASPART 100 UNITS/ML 3 ML PEN SC SCH ×4 (09:10→21:44)
[2017-03-18] MEDS: LEVOFLOXACIN 250 MG TAB PO SCH (11:32)
--- NOTE | 2017-03-18 13:07 | Nephrology Progress Note ---
Nephrology Progress Note Date of Service Mar 18, 2017. Chief Complaint Follow-up for acute kidney injury with history of advanced CKD. Roland Causey Was seen and examined in his room this morning. He has been otherwise feeling much better walking around the hallway. Abdominal pain seems to have improve significantly but now his more bothered by his chronic back pain. No significant episodes of diarrhea. P.o. intake has improved and he has been tolerating oral diet. Renal function started to improve creatinine 3.4 this morning which is pretty close to his baseline ( B/L 3.0-3.3 ). blood pressure has been running high. Review of Systems A complete review of systems was performed. Pertinent positives are noted above. All other systems are negative. Vital Signs Last 8 Hrs Date Time Temp Pulse Resp B/P (MAP) Pulse Ox O2 Delivery O2 Flow Rate FiO2 03/18/17 12:37 36.7 77 20 185/79 (114) 98 03/18/17 09:00 Room Air 03/18/17 08:21 36.6 70 20 182/87 (118) 98 Room Air Last Recorded Weight Weight (Kilograms): 81.600 Physical Exam GENERAL: Middle-aged male, AAA x 3, pleasant, healthy-appearing, not in any distress. NECK: Supple, no JVD. RESPIRATORY: Normal breathing efforts, no accessory muscle use, clear to auscultation bilaterally, no wheezes or rales. CARDIOVASCULAR: S1, S2 normal, rate rhythm regular. EXTREMITY: No lower extremity edema NEURO: speech fluent. PSYCHIATRY: Normal mood and judgment Family History Cervical cancer Diabetes mellitus Heart disease Hypertension Myocardial infarction Pancreatic cancer Prostate cancer Negative for CKD/ESRD Social History Smokeless Tobacco Use: No Alcohol Use: none Drug Use: none Marital Status: single Housing Status: lives alone Occupation: retired Single, retired. Formerly worked for [employer]. Never a smoker. Laboratory Results Past 24 Hours 03/18/17 07:46 03/18/17 07:46 Test 03/17/17 16:38 03/17/17 20:29 03/18/17 07:46 03/18/17 07:52 Bedside Glucose 221 mg/dl (70-99) 164 mg/dl (70-99) 96 mg/dl (70-99) Red Blood Count 4.10 M/uL (4.7-6.1) Mean Corpuscular Volume 81.2 fL (80-100) Mean Corpuscular Hemoglobin 26.3 pg (25-34) Mean Corpuscular Hemoglobin Concent 32.4 g/dl (32-36) RDW Standard Deviation 45.0 fL (36.4-46.3) RDW Coefficient of Variation 15.1 % (11.5-14.5) Mean Platelet Volume 10.1 fL (7.4-10.4) Anion Gap 7.0 mmol/L (3-11) Est Creatinine Clear Calc Drug Dose 23.0 ml/min Estimated GFR () 21.0 Estimated GFR (Non- 18.2 BUN/Creatinine Ratio 14.6 (10-20) Calcium Level 8.5 mg/dl (8.5-10.1) Test 03/18/17 11:30 Bedside Glucose 169 mg/dl (70-99) Allergies Coded Allergies: Iodinated Diagnostic Agents (Verified Allergy, Unknown, oil based, severe headaches, 10/27/16) EVENT OCCURED IN 1971, PT STATES HE HAS HAD 3 DIFFERENT WATER BASED IVP DYES WITH NO ISSUE Medications Current Inpatient Medications Medications (Trade) Dose Ordered Sig/Edward Route Start Time Stop Time Status Last Admin Dose Admin Acetaminophen (Tylenol Tab) 650 mg Q4H PRN PO 03/09/17 15:00 04/08/17 14:59 Al Hydrox/Mg Hydrox/Simethicone (Maalox Max Susp) 15 ml Q4H PRN PO 03/09/17 15:00 04/08/17 14:59 Polyethylene (Miralax Powder Packet) 17 gm DAILY PRN PO 03/09/17 15:00 04/08/17 14:59 03/18/17 08:12 17 GM Ondansetron HCl (Zofran Inj) 4 mg Q6H PRN IV 03/09/17 15:00 04/08/17 14:59 Heparin Sodium (Porcine) (Heparin Sq 5000 Unit/0.5ml) 5,000 unit Q12 SQ 03/09/17 17:00 04/08/17 16:59 03/18/17 08:18 5,000 UNIT Insulin Glargine (Lantus Solostar Pen) 14 units QPM SC 03/09/17 21:00 04/08/17 20:59 03/17/17 20:45 14 UNITS Insulin Aspart (novoLOG ASPART) SLIDING SCALE If C... ACHS SC 03/09/17 16:30 04/08/17 16:29 03/17/17 18:29 2 UNITS Glucose (Glucose 40% Gel) 15-30 GRAMS 15 GRAMS... UD PRN PO 03/09/17 15:00 04/08/17 14:59 Glucose (Glucose Chew Tab) 4-8 Tablets 4 Tabl... UD PRN PO 03/09/17 15:00 04/08/17 14:59 Dextrose (Dextrose 50% 50ML Syringe) 25-50ML OF 50% DW IV FOR... UD PRN IV 03/09/17 15:00 04/08/17 14:59 Glucagon (Glucagon Inj) 1 mg UD PRN SQ 03/09/17 15:00 04/08/17 14:59 Morphine Sulfate (MoRPHine SULFATE INJ) 4 mg Q4H PRN IV 03/09/17 15:00 03/23/17 14:59 03/17/17 16:22 4 MG Atenolol (Tenormin Tab) 50 mg DAILY PO 03/10/17 08:00 04/09/17 07:59 03/18/17 08:14 50 MG Docusate Sodium (coLACE CAP) 100 mg BID PO 03/09/17 20:00 04/08/17 19:59 03/18/17 08:13 100 MG Escitalopram Oxalate (Lexapro Tab) 10 mg DAILY PO 03/10/17 08:00 04/09/17 07:59 03/18/17 08:13 10 MG Simvastatin (Zocor Tab) 20 mg QPM PO 03/09/17 21:00 04/08/17 20:59 03/17/17 20:12 20 MG Terazosin HCl (Hytrin Cap) 5 mg HS PO 03/09/17 21:00 04/08/17 20:59 03/17/17 20:12 5 MG Aspirin (Ecotrin Tab) 81 mg QAM PO 03/10/17 08:00 04/09/17 07:59 03/18/17 08:14 81 MG Calcitriol (Rocaltrol Cap) 0.25 mcg MoWeFr@0800 PO 03/10/17 08:00 04/09/17 07:59 03/17/17 08:04 0.25 MCG Ferrous Sulfate (Feosol Tab) 325 mg BID PO 03/09/17 20:00 04/08/17 19:59 03/18/17 08:13 325 MG Hydralazine HCl (HydrALAZINE INJ) 10 mg Q4H PRN IV 03/09/17 22:00 04/08/17 21:59 03/13/17 16:44 10 MG Amlodipine Besylate (Norvasc Tab) 10 mg HS PO 03/10/17 21:00 04/09/17 07:59 03/17/17 20:12 10 MG Levofloxacin (Consult) 1 ea UD PRN N/A 03/11/17 09:30 04/10/17 09:29 Levofloxacin (Levaquin Tab) 250 mg DAILY@11 PO 03/14/17 11:00 03/21/17 10:59 03/18/17 11:32 250 MG Metronidazole (Flagyl Tab) 500 mg TID PO 03/13/17 14:33 03/21/17 14:32 03/18/17 08:13 500 MG Oxycodone HCl (Roxicodone Immediate Rel Tab) 5 mg Q6 PRN PO 03/13/17 15:30 03/27/17 15:29 03/18/17 07:58 5 MG Hydralazine HCl (Apresoline Tab) 25 mg TID PO 03/13/17 20:00 04/11/17 19:59 03/18/17 08:13 25 MG Sodium Chloride 1,000 ml @ 100 mls/hr Q10H IV 03/15/17 10:00 04/14/17 09:59 03/18/17 09:10 100 MLS/HR Prednisone (PredniSONE TAB) 40 mg DAILY PO 03/17/17 08:00 04/16/17 07:59 03/18/17 08:13 40 MG Menthol (Nice Summer) 1 summer PRN PRN PO 03/17/17 09:00 04/16/17 08:59 Senna (Senokot Tab) 17.2 mg DAILY PRN PO 03/17/17 09:30 04/16/17 09:29 03/17/17 09:50 17.2 MG Impression (1) Acute kidney injury (2) Kidney disease, chronic, stage IV (GFR 15-29 ml/min) (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 Christy has acute on chronic kidney injury (baseline creatinine 3.0 - 3.3) due to acute inflammation in the setting of BETSY inhibitor therapy. Volume status and electrolyte balance remain acceptable at this time. He is s/p L radical nephrectomy 10/06 due to clear cell carcinoma of the kidney. He has metastasis to the lymph nodes. Mr. Christy was intolerant of Sutent therapy due to hypertension and nephrotic syndrome. He was recently transitioned to Opdivo therapy. Mr. Christy has a h/o diverticulitis and is s/p partial colectomy 2009. He was admitted with abdominal pain and CT findings suggestive of colitis. His inflammation may be related to infection or autoimmune related to Opdivo therapy. Recommendations -- Kidney function has improved w/ IV hydration. renal function, volume status and electrolyte seems to have improved. -- discontinue IV fluid -- Continue to hold Lisinopril and Furosemide. -- continue on amlodipine and metoprolol and increase hydralazine to 50 milligram t.i.d. as blood pressure continues to be running high which is again probably multifactorial with the IV fluid, high dose steroid and discontinuation of his home medication lisinopril and furosemide -- Protect nondominant arm (left) for possible dialysis access in the future --prednisone dose should be managed by his oncologist as previously he required high dose of prednisone for multiple joint pain thought to be secondary to Opdivo and dose was tapered every 10 days --He will need outpatient follow-up with [facility] for management of prednisone and restart of of Opdiva once prednisone dose goes lower
[2017-03-18] MEDS ORDERED: POLYETHYLENE (MIRALAX) 17 GM PACK PO ONE (17:37)
[2017-03-18] MEDS ORDERED: SENNA 8.6 MG TAB PO ONE (17:37)
[2017-03-18] MEDS: MoRPHine SULFATE 4 MG/ML 1 ML CARP\\VIAL IV PRN (18:34)
[2017-03-18] MEDS ORDERED: OXYCODONE HCL IR 5 MG TAB (IMMEDIATE RELEASE) PO STA (20:22)
[2017-03-18] MEDS: SIMVASTATIN 20 MG TAB PO SCH (21:37)
[2017-03-18] MEDS: AMLODIPINE BESYLATE 5 MG TAB PO SCH (21:38)
[2017-03-18] MEDS: INSULIN GLARGINE SOLOSTAR 100 UNITS/ML 3 ML PEN SC SCH (21:44)
--- NOTE | 2017-03-19 00:25 | Hospitalist Progress Note ---
Hospitalist Progress Note Date of Service Mar 18, 2017. Subjective Pt evaluation today including: conversation w/ patient, conversation w/ family Patient with no complaints feeling better Objective Vital Signs Date Time Temp Pulse Resp B/P (MAP) Pulse Ox O2 Delivery O2 Flow Rate FiO2 03/18/17 03:52 36.6 61 16 159/71 (100) 98 Room Air 03/18/17 00:16 36.7 70 16 174/76 (108) 98 Room Air 03/18/17 00:05 Room Air 03/17/17 20:09 169/69 (102) 03/17/17 19:43 36.5 71 20 189/78 (115) 98 Room Air 03/17/17 16:00 Room Air 03/17/17 15:36 36.7 74 18 177/80 (112) 98 Room Air 03/17/17 11:38 36.8 70 16 166/79 (108) 98 Room Air 03/17/17 09:00 Room Air 03/17/17 07:37 36.8 75 16 144/66 (92) 97 Room Air 03/17/17 04:31 36.5 69 16 156/83 (107) 96 Room Air Physical Exam General Appearance: no apparent distress Eyes: normal inspection ENT: hearing grossly normal Neck: trachea midline Respiratory/Chest: lungs clear Cardiovascular: regular rate, rhythm Abdomen: normal bowel sounds Extremities: normal range of motion Neurologic/Psychiatric: alert Skin: normal color, warm/dry Laboratory Results Last 24 Hours Test 03/17/17 05:23 03/17/17 07:42 03/17/17 11:30 03/17/17 16:38 Sodium Level 139 mmol/L Potassium Level 4.2 mmol/L Chloride Level 110 mmol/L Carbon Dioxide Level 22 mmol/L Anion Gap 7.0 mmol/L Blood Urea Nitrogen 50 mg/dl Creatinine 3.40 mg/dl Est Creatinine Clear Calc Drug Dose 23.0 ml/min Estimated GFR () 21.0 Estimated GFR (Non- 18.2 BUN/Creatinine Ratio 14.6 Random Glucose 153 mg/dl Calcium Level 8.5 mg/dl Bedside Glucose 137 mg/dl 220 mg/dl 221 mg/dl Test 03/17/17 20:29 Bedside Glucose 164 mg/dl Assessment and Plan 61 y/o male with a history of renal cell carcinoma, s/p resection with metastases, initially with suspected Opdivo induced colitis, here with abdominal pain and low grade fever at home, now thought to have more of an acute diverticulitis picture. 1. Abdominal pain and diarrhea - initially thought to be inflammatory colitis, now suspect diverticulitis, sigmoid, still no diarrhea continue Levaquin and Flagyl, tolerating low residue diet, continue to hold steroids Oxycodone PRN for pain 2. Renal cell carcinoma s/p left nephrectomy 10/22/15. followed by Oncology -complex cystic lesions indeterminate but growing in size on rt kidney--> no additional imaging yet, if not improving consider U/S 3. HTN - BP variable up and down, amlodipine 10 mg PO qd and atenolol 50 mg PO qd -had to dc lisinopril and lasix due to JOSHUA hydralazine 25mg po tid which was added this admission due to stopping Lisinopril 4. DM II--last HgbA1c 11/07 was 6.3, -Insulin sliding scale as with limited po intake 5. Acute renal failure in setting of CKD stage IV--baseline creatinine 3.2-3.4- climbing to 4's has solitary kidney with some cystic changes Dr. Bell following in consult added IVF 03/15 -hold lisinopril and lasix creatine is improving continue present mangament Patient back to baseline will hold iv fluids Anemia-likely of chronic disease and renal disease-baseline Hgb around 11e ferrous sulfate 325 mg PO BID Anxiety and depression Lexapro 10 mg PO qd BPH terazosin 5 mg PO qd DVT prophylaxis-Heparin 5000 units SC q12h Discharge planning: home
[2017-03-19 00:34] VITALS: BP 154/65; PULSE 69; TEMP 36.6; O2SAT 98
[2017-03-19 04:07] VITALS: BP 149/66; PULSE 69; TEMP 36.5; O2SAT 99
[2017-03-19] MEDS: OXYCODONE HCL IR 5 MG TAB (IMMEDIATE RELEASE) PO PRN ×5 (05:05→22:33)
[2017-03-19 06:48] LABS: BUN/CREATININE RATIO 14.4 (10-20); CALCIUM 8.9 mg/dl (8.5-10.1); CREATININE 3.5 mg/dl (0.60-1.40); POTASSIUM 4.1 mmol/L (3.5-5.1)
[2017-03-19 07:55] VITALS: BP 164/72; PULSE 64; TEMP 36.5; O2SAT 98
[2017-03-19] MEDS: INSULIN ASPART 100 UNITS/ML 3 ML PEN SC SCH ×4 (08:40→20:37)
[2017-03-19] MEDS: ASPIRIN 81 MG ECTAB PO SCH (08:42)
[2017-03-19] MEDS: METRONIDAZOLE 500 MG TAB PO SCH ×3 (08:43→20:23)
[2017-03-19] MEDS: DOCUSATE SODIUM 100 MG CAP PO SCH ×3 (08:43→20:24)
[2017-03-19] MEDS: POLYETHYLENE (MIRALAX) 17 GM PACK PO SCH (08:43)
[2017-03-19] MEDS: SENNA 8.6 MG TAB PO SCH (08:43)
[2017-03-19] MEDS: LEVOFLOXACIN 250 MG TAB PO SCH (08:43)
[2017-03-19] MEDS: ESCITALOPRAM OXALATE 10 MG TAB PO SCH (08:43)
[2017-03-19] MEDS: HEPARIN SOD 5000 UNIT/0.5 ML CARP SQ SCH ×2 (08:46→20:29)
[2017-03-19] MEDS: FERROUS SULFATE 325 MG TAB PO SCH ×2 (09:13→20:24)
--- NOTE | 2017-03-19 11:14 | Nephrology Progress Note ---
Nephrology Progress Note Date of Service Mar 19, 2017. Chief Complaint Follow-up for acute kidney injury with history of advanced CKD. Roland Causey was seen and examined in his room this am. Reports slight increase in abdominal pain. Cr stable at 3.4 without much improvement. BP still slightly elevated, hydralazine increased yesterday. UO decent. Review of Systems A complete review of systems was performed. Pertinent positives are noted above. All other systems are negative. Vital Signs Last 8 Hrs Date Time Temp Pulse Resp B/P (MAP) Pulse Ox O2 Delivery O2 Flow Rate FiO2 03/19/17 08:00 Room Air 03/19/17 07:55 36.5 64 18 164/72 (102) 98 Room Air 03/19/17 04:07 36.5 69 18 149/66 (93) 99 Room Air Last Recorded Weight Weight (Kilograms): 84.100 Physical Exam GENERAL: Middle-aged male, AAA x 3, pleasant, healthy-appearing, not in any distress. NECK: Supple, no JVD. RESPIRATORY: Normal breathing efforts, no accessory muscle use, clear to auscultation bilaterally, no wheezes or rales. CARDIOVASCULAR: S1, S2 normal, rate rhythm regular. EXTREMITY: No lower extremity edema NEURO: speech fluent. PSYCHIATRY: Normal mood and judgment Family History Cervical cancer Diabetes mellitus Heart disease Hypertension Myocardial infarction Pancreatic cancer Prostate cancer Negative for CKD/ESRD Social History Smokeless Tobacco Use: No Alcohol Use: none Drug Use: none Marital Status: single Housing Status: lives alone Occupation: retired Single, retired. Formerly worked for [employer]. Never a smoker. Laboratory Results Past 24 Hours 03/19/17 05:49 Test 03/18/17 11:30 03/18/17 16:34 03/18/17 20:01 03/19/17 05:49 Bedside Glucose 169 mg/dl (70-99) 273 mg/dl (70-99) 252 mg/dl (70-99) Anion Gap 8.0 mmol/L (3-11) Est Creatinine Clear Calc Drug Dose 22.3 ml/min Estimated GFR () 20.3 Estimated GFR (Non- 17.5 BUN/Creatinine Ratio 14.4 (10-20) Calcium Level 8.9 mg/dl (8.5-10.1) Test 03/19/17 07:49 Bedside Glucose 103 mg/dl (70-99) Allergies Coded Allergies: Iodinated Diagnostic Agents (Verified Allergy, Unknown, oil based, severe headaches, 10/27/16) EVENT OCCURED IN 1971, PT STATES HE HAS HAD 3 DIFFERENT WATER BASED IVP DYES WITH NO ISSUE Medications Current Inpatient Medications Medications (Trade) Dose Ordered Sig/Edward Route Start Time Stop Time Status Last Admin Dose Admin Acetaminophen (Tylenol Tab) 650 mg Q4H PRN PO 03/09/17 15:00 04/08/17 14:59 Al Hydrox/Mg Hydrox/Simethicone (Maalox Max Susp) 15 ml Q4H PRN PO 03/09/17 15:00 04/08/17 14:59 Polyethylene (Miralax Powder Packet) 17 gm DAILY PRN PO 03/09/17 15:00 04/08/17 14:59 03/18/17 08:12 17 GM Ondansetron HCl (Zofran Inj) 4 mg Q6H PRN IV 03/09/17 15:00 04/08/17 14:59 Heparin Sodium (Porcine) (Heparin Sq 5000 Unit/0.5ml) 5,000 unit Q12 SQ 03/09/17 17:00 04/08/17 16:59 03/19/17 08:46 5,000 UNIT Insulin Glargine (Lantus Solostar Pen) 14 units QPM SC 03/09/17 21:00 04/08/17 20:59 03/18/17 21:44 14 UNITS Insulin Aspart (novoLOG ASPART) SLIDING SCALE If C... ACHS SC 03/09/17 16:30 04/08/17 16:29 03/18/17 21:44 3 UNITS Glucose (Glucose 40% Gel) 15-30 GRAMS 15 GRAMS... UD PRN PO 03/09/17 15:00 04/08/17 14:59 Glucose (Glucose Chew Tab) 4-8 Tablets 4 Tabl... UD PRN PO 03/09/17 15:00 04/08/17 14:59 Dextrose (Dextrose 50% 50ML Syringe) 25-50ML OF 50% DW IV FOR... UD PRN IV 03/09/17 15:00 04/08/17 14:59 Glucagon (Glucagon Inj) 1 mg UD PRN SQ 03/09/17 15:00 04/08/17 14:59 Atenolol (Tenormin Tab) 50 mg DAILY PO 03/10/17 08:00 04/09/17 07:59 03/19/17 08:43 50 MG Docusate Sodium (coLACE CAP) 100 mg BID PO 03/09/17 20:00 04/08/17 19:59 03/19/17 08:43 100 MG Escitalopram Oxalate (Lexapro Tab) 10 mg DAILY PO 03/10/17 08:00 04/09/17 07:59 03/19/17 08:43 10 MG Simvastatin (Zocor Tab) 20 mg QPM PO 03/09/17 21:00 04/08/17 20:59 03/18/17 21:37 20 MG Terazosin HCl (Hytrin Cap) 5 mg HS PO 03/09/17 21:00 04/08/17 20:59 03/18/17 21:37 5 MG Aspirin (Ecotrin Tab) 81 mg QAM PO 03/10/17 08:00 04/09/17 07:59 03/19/17 08:42 81 MG Calcitriol (Rocaltrol Cap) 0.25 mcg MoWeFr@0800 PO 03/10/17 08:00 04/09/17 07:59 03/17/17 08:04 0.25 MCG Ferrous Sulfate (Feosol Tab) 325 mg BID PO 03/09/17 20:00 04/08/17 19:59 03/19/17 09:13 325 MG Hydralazine HCl (HydrALAZINE INJ) 10 mg Q4H PRN IV 03/09/17 22:00 04/08/17 21:59 03/13/17 16:44 10 MG Amlodipine Besylate (Norvasc Tab) 10 mg HS PO 03/10/17 21:00 04/09/17 07:59 03/18/17 21:38 10 MG Levofloxacin (Consult) 1 ea UD PRN N/A 03/11/17 09:30 04/10/17 09:29 Levofloxacin (Levaquin Tab) 250 mg DAILY@11 PO 03/14/17 11:00 03/21/17 10:59 03/19/17 08:43 250 MG Metronidazole (Flagyl Tab) 500 mg TID PO 03/13/17 14:33 03/21/17 14:32 03/19/17 08:43 500 MG Prednisone (PredniSONE TAB) 40 mg DAILY PO 03/17/17 08:00 04/16/17 07:59 03/19/17 09:13 40 MG Menthol (Nice Summer) 1 summer PRN PRN PO 03/17/17 09:00 04/16/17 08:59 Senna (Senokot Tab) 17.2 mg DAILY PRN PO 03/17/17 09:30 04/16/17 09:29 03/18/17 08:16 17.2 MG Hydralazine HCl (Apresoline Tab) 50 mg TID PO 03/18/17 14:00 04/11/17 19:59 03/19/17 08:43 50 MG Polyethylene (Miralax Powder Packet) 17 gm DAILY PO 03/19/17 08:00 04/18/17 07:59 03/19/17 08:43 17 GM Senna (Senokot Tab) 17.2 mg QAM PO 03/19/17 08:00 04/18/17 07:59 03/19/17 08:43 17.2 MG Oxycodone HCl (Roxicodone Immediate Rel Tab) 5 mg Q2H PRN PO 03/18/17 22:00 03/27/17 15:29 03/19/17 11:09 5 MG Impression (1) Acute kidney injury (2) Kidney disease, chronic, stage IV (GFR 15-29 ml/min) (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 Christy has acute on chronic kidney injury (baseline creatinine 3.0 - 3.3) due to acute inflammation in the setting of BETSY inhibitor therapy. Volume status and electrolyte balance remain acceptable at this time. He is s/p L radical nephrectomy 10/06 due to clear cell carcinoma of the kidney. He has metastasis to the lymph nodes. Mr. Christy was intolerant of Sutent therapy due to hypertension and nephrotic syndrome. He was recently transitioned to Opdivo therapy. Mr. Christy has a h/o diverticulitis and is s/p partial colectomy 2009. He was admitted with abdominal pain and CT findings suggestive of colitis. His inflammation may be related to infection or autoimmune related to Opdivo therapy. Recommendations -- renal function remain stable, volume status and electrolyte seems to have improved. -- discontinue IV fluid -- Continue to hold Lisinopril and Furosemide. -- continue on amlodipine and metoprolol and hydralazine to 50 milligram t.i.d. -- Protect nondominant arm (left) for possible dialysis access in the future --consider stool softener as pt did not ahve BM for last 1 week --prednisone dose should be managed by his oncologist as previously he required high dose of prednisone for multiple joint pain thought to be secondary to Opdivo and dose was tapered every 10 days --He will need outpatient follow-up with Hem Oncology for management of prednisone and restart of of Opdiva once prednisone dose goes lower
[2017-03-19 11:51] VITALS: BP 179/83; PULSE 68; TEMP 36.6; O2SAT 98
[2017-03-19] MEDS ORDERED: DOCUSATE SODIUM 100 MG CAP PO ONE (13:45)
[2017-03-19 16:16] VITALS: BP 129/65; PULSE 65; TEMP 36.7; O2SAT 98
[2017-03-19 19:15] VITALS: BP 172/73; PULSE 70; TEMP 36.8; O2SAT 98
[2017-03-19] MEDS: SENNA 8.6 MG TAB PO PRN (20:23)
[2017-03-19] MEDS: SIMVASTATIN 20 MG TAB PO SCH (20:23)
[2017-03-19] MEDS: AMLODIPINE BESYLATE 5 MG TAB PO SCH (20:24)
[2017-03-19] MEDS: INSULIN GLARGINE SOLOSTAR 100 UNITS/ML 3 ML PEN SC SCH (20:36)
--- NOTE | 2017-03-19 21:32 | Hospitalist Progress Note ---
Hospitalist Progress Note Date of Service Mar 19, 2017. Subjective Pt evaluation today including: conversation w/ patient Patient starting to move his bowels however very small stool quantity hasn't effectively moved his bowels in a week Objective Vital Signs Date Time Temp Pulse Resp B/P (MAP) Pulse Ox O2 Delivery O2 Flow Rate FiO2 03/18/17 21:45 69 174/66 (102) 03/18/17 20:02 36.7 67 16 205/93 (130) 97 Room Air 03/18/17 16:35 Room Air 03/18/17 15:52 36.6 62 18 172/85 (114) 98 Room Air 03/18/17 13:01 169/78 (108) 03/18/17 12:37 36.7 77 20 185/79 (114) 98 03/18/17 09:00 Room Air 03/18/17 08:21 36.6 70 20 182/87 (118) 98 Room Air 03/18/17 03:52 36.6 61 16 159/71 (100) 98 Room Air Physical Exam General Appearance: no apparent distress Eyes: normal inspection ENT: hearing grossly normal Neck: supple, trachea midline Respiratory/Chest: lungs clear Cardiovascular: regular rate, rhythm Abdomen: normal bowel sounds, non tender, soft Extremities: non-tender Laboratory Results Last 24 Hours Test 03/18/17 07:46 03/18/17 07:52 03/18/17 11:30 03/18/17 16:34 White Blood Count 11.21 K/uL Red Blood Count 4.10 M/uL Hemoglobin 10.8 g/dL Hematocrit 33.3 % Mean Corpuscular Volume 81.2 fL Mean Corpuscular Hemoglobin 26.3 pg Mean Corpuscular Hemoglobin Concent 32.4 g/dl RDW Standard Deviation 45.0 fL RDW Coefficient of Variation 15.1 % Platelet Count 204 K/uL Mean Platelet Volume 10.1 fL Sodium Level 142 mmol/L Potassium Level 4.1 mmol/L Chloride Level 112 mmol/L Carbon Dioxide Level 23 mmol/L Anion Gap 7.0 mmol/L Blood Urea Nitrogen 50 mg/dl Creatinine 3.40 mg/dl Est Creatinine Clear Calc Drug Dose 23.0 ml/min Estimated GFR () 21.0 Estimated GFR (Non- 18.2 BUN/Creatinine Ratio 14.6 Random Glucose 94 mg/dl Calcium Level 8.5 mg/dl Bedside Glucose 96 mg/dl 169 mg/dl 273 mg/dl Test 03/18/17 20:01 Bedside Glucose 252 mg/dl Assessment and Plan 61 y/o male with a history of renal cell carcinoma, s/p resection with metastases, initially with suspected Opdivo induced colitis, here with abdominal pain and low grade fever at home, now thought to have more of an acute diverticulitis picture. 1. Abdominal pain and diarrhea - initially thought to be inflammatory colitis, now suspect diverticulitis, sigmoid, still no diarrhea continue Levaquin and Flagyl, tolerating low residue diet, continue to hold steroids Oxycodone PRN for pain 2. Renal cell carcinoma s/p left nephrectomy 10/22/15. followed by Oncology -complex cystic lesions indeterminate but growing in size on rt kidney--> no additional imaging yet, if not improving consider U/S 3. HTN - BP variable up and down, amlodipine 10 mg PO qd and atenolol 50 mg PO qd -had to dc lisinopril and lasix due to JOSHUA hydralazine 25mg po tid which was added this admission due to stopping Lisinopril 4. DM II--last HgbA1c 11/07 was 6.3, -Insulin sliding scale as with limited po intake 5. Acute renal failure in setting of CKD stage IV--baseline creatinine 3.2-3.4- climbing to 4's has solitary kidney with some cystic changes Dr. Bell following in consult added IVF 03/15 -hold lisinopril and lasix creatine is improving continue present mangament Patient back to baseline will hold iv fluids Anemia-likely of chronic disease and renal disease-baseline Hgb around 11e ferrous sulfate 325 mg PO BID Anxiety and depression Lexapro 10 mg PO qd BPH terazosin 5 mg PO qd DVT prophylaxis-Heparin 5000 units SC q12h Constipation adjusting medications Discharge planning: home
[2017-03-20] VITALS (10 sets, daily range): BP systolic 144–185; BP diastolic 70–88; PULSE 56–75; TEMP 36.7–36.9; O2SAT 97–98
[2017-03-20] MEDS: OXYCODONE HCL IR 5 MG TAB (IMMEDIATE RELEASE) PO PRN ×4 (06:36→21:22)
[2017-03-20 07:00] LABS: BUN/CREATININE RATIO 13.9 (10-20); CALCIUM 8.7 mg/dl (8.5-10.1); CREATININE 3.7 mg/dl (0.60-1.40); POTASSIUM 3.8 mmol/L (3.5-5.1)
[2017-03-20] MEDS: SENNA 8.6 MG TAB PO SCH (08:17)
[2017-03-20] MEDS: POLYETHYLENE (MIRALAX) 17 GM PACK PO SCH (08:18)
[2017-03-20] MEDS: CALCITRIOL 0.25 MCG CAP PO SCH (08:18)
[2017-03-20] MEDS: ASPIRIN 81 MG ECTAB PO SCH (08:18)
[2017-03-20] MEDS: METRONIDAZOLE 500 MG TAB PO SCH ×3 (08:18→20:20)
[2017-03-20] MEDS: DOCUSATE SODIUM 100 MG CAP PO SCH ×3 (08:19→20:19)
[2017-03-20] MEDS: ESCITALOPRAM OXALATE 10 MG TAB PO SCH (08:19)
[2017-03-20] MEDS: FERROUS SULFATE 325 MG TAB PO SCH ×2 (08:19→20:19)
[2017-03-20] MEDS: INSULIN ASPART 100 UNITS/ML 3 ML PEN SC SCH ×4 (08:20→20:23)
[2017-03-20] MEDS: LIDODERM (LIDOCAINE) PATCH 5% TD SCH (08:20)
[2017-03-20] MEDS: HEPARIN SOD 5000 UNIT/0.5 ML CARP SQ SCH ×2 (08:32→20:24)
[2017-03-20] MEDS: SODIUM CHLORIDE 0.9% 1000ML 1,000 ML IV SCH ×2 (08:33→17:33)
--- NOTE | 2017-03-20 10:02 | Nephrology Progress Note ---
Nephrology Progress Note Date of Service Mar 20, 2017. Chief Complaint Follow-up for acute kidney injury with history of advanced CKD. Roland Causey was seen and examined in his room this am.. BP still slightly elevated, high UO, has been net negative, cr worsen to 3.7. Abdominal pain resolved and mainly c/o back pain. . Review of Systems A complete review of systems was performed. Pertinent positives are noted above. All other systems are negative. Vital Signs Last 8 Hrs Date Time Temp Pulse Resp B/P (MAP) Pulse Ox O2 Delivery O2 Flow Rate FiO2 03/20/17 08:04 36.7 64 18 184/88 (120) 98 Room Air 03/20/17 03:49 Room Air 03/20/17 03:45 36.7 66 20 150/75 (100) 97 Room Air Last Recorded Weight Weight (Kilograms): 82.700 Physical Exam GENERAL: Middle-aged male, AAA x 3, pleasant, healthy-appearing, not in any distress. NECK: Supple, no JVD. RESPIRATORY: Normal breathing efforts, no accessory muscle use, clear to auscultation bilaterally, no wheezes or rales. CARDIOVASCULAR: S1, S2 normal, rate rhythm regular. EXTREMITY: No lower extremity edema NEURO: speech fluent. PSYCHIATRY: Normal mood and judgment Family History Cervical cancer Diabetes mellitus Heart disease Hypertension Myocardial infarction Pancreatic cancer Prostate cancer Negative for CKD/ESRD Social History Smokeless Tobacco Use: No Alcohol Use: none Drug Use: none Marital Status: single Housing Status: lives alone Occupation: retired Single, retired. Formerly worked for [employer]. Never a smoker. Laboratory Results Past 24 Hours 03/20/17 06:16 Test 03/19/17 11:37 03/19/17 16:48 03/19/17 20:14 03/20/17 06:16 Bedside Glucose 147 mg/dl (70-99) 238 mg/dl (70-99) 266 mg/dl (70-99) Anion Gap 10.0 mmol/L (3-11) Est Creatinine Clear Calc Drug Dose 21.1 ml/min Estimated GFR () 19.0 Estimated GFR (Non- 16.4 BUN/Creatinine Ratio 13.9 (10-20) Calcium Level 8.7 mg/dl (8.5-10.1) Test 03/20/17 07:45 Bedside Glucose 101 mg/dl (70-99) Allergies Coded Allergies: Iodinated Diagnostic Agents (Verified Allergy, Unknown, oil based, severe headaches, 10/27/16) EVENT OCCURED IN 1971, PT STATES HE HAS HAD 3 DIFFERENT WATER BASED IVP DYES WITH NO ISSUE Medications Current Inpatient Medications Medications (Trade) Dose Ordered Sig/Edward Route Start Time Stop Time Status Last Admin Dose Admin Acetaminophen (Tylenol Tab) 650 mg Q4H PRN PO 03/09/17 15:00 04/08/17 14:59 Al Hydrox/Mg Hydrox/Simethicone (Maalox Max Susp) 15 ml Q4H PRN PO 03/09/17 15:00 04/08/17 14:59 Polyethylene (Miralax Powder Packet) 17 gm DAILY PRN PO 03/09/17 15:00 04/08/17 14:59 03/18/17 08:12 17 GM Ondansetron HCl (Zofran Inj) 4 mg Q6H PRN IV 03/09/17 15:00 04/08/17 14:59 Heparin Sodium (Porcine) (Heparin Sq 5000 Unit/0.5ml) 5,000 unit Q12 SQ 03/09/17 17:00 04/08/17 16:59 03/20/17 08:32 5,000 UNIT Insulin Glargine (Lantus Solostar Pen) 14 units QPM SC 03/09/17 21:00 04/08/17 20:59 03/19/17 20:36 14 UNITS Insulin Aspart (novoLOG ASPART) SLIDING SCALE If C... ACHS SC 03/09/17 16:30 04/08/17 16:29 03/19/17 20:37 3 UNITS Glucose (Glucose 40% Gel) 15-30 GRAMS 15 GRAMS... UD PRN PO 03/09/17 15:00 04/08/17 14:59 Glucose (Glucose Chew Tab) 4-8 Tablets 4 Tabl... UD PRN PO 03/09/17 15:00 04/08/17 14:59 Dextrose (Dextrose 50% 50ML Syringe) 25-50ML OF 50% DW IV FOR... UD PRN IV 03/09/17 15:00 04/08/17 14:59 Glucagon (Glucagon Inj) 1 mg UD PRN SQ 03/09/17 15:00 04/08/17 14:59 Atenolol (Tenormin Tab) 50 mg DAILY PO 03/10/17 08:00 04/09/17 07:59 03/20/17 08:18 50 MG Docusate Sodium (coLACE CAP) 100 mg BID PO 03/09/17 20:00 04/08/17 19:59 03/20/17 08:19 100 MG Escitalopram Oxalate (Lexapro Tab) 10 mg DAILY PO 03/10/17 08:00 04/09/17 07:59 03/20/17 08:19 10 MG Simvastatin (Zocor Tab) 20 mg QPM PO 03/09/17 21:00 04/08/17 20:59 03/19/17 20:23 20 MG Terazosin HCl (Hytrin Cap) 5 mg HS PO 03/09/17 21:00 04/08/17 20:59 03/19/17 20:24 5 MG Aspirin (Ecotrin Tab) 81 mg QAM PO 03/10/17 08:00 04/09/17 07:59 03/20/17 08:18 81 MG Calcitriol (Rocaltrol Cap) 0.25 mcg MoWeFr@0800 PO 03/10/17 08:00 04/09/17 07:59 03/20/17 08:18 0.25 MCG Ferrous Sulfate (Feosol Tab) 325 mg BID PO 03/09/17 20:00 04/08/17 19:59 03/20/17 08:19 325 MG Hydralazine HCl (HydrALAZINE INJ) 10 mg Q4H PRN IV 03/09/17 22:00 04/08/17 21:59 03/13/17 16:44 10 MG Amlodipine Besylate (Norvasc Tab) 10 mg HS PO 03/10/17 21:00 04/09/17 07:59 03/19/17 20:24 10 MG Levofloxacin (Consult) 1 ea UD PRN N/A 03/11/17 09:30 04/10/17 09:29 Levofloxacin (Levaquin Tab) 250 mg DAILY@11 PO 03/14/17 11:00 03/21/17 10:59 03/19/17 08:43 250 MG Metronidazole (Flagyl Tab) 500 mg TID PO 03/13/17 14:33 03/21/17 14:32 03/20/17 08:18 500 MG Prednisone (PredniSONE TAB) 40 mg DAILY PO 03/17/17 08:00 04/16/17 07:59 03/20/17 08:18 40 MG Menthol (Nice Summer) 1 summer PRN PRN PO 03/17/17 09:00 04/16/17 08:59 Senna (Senokot Tab) 17.2 mg DAILY PRN PO 03/17/17 09:30 04/16/17 09:29 03/19/17 20:23 17.2 MG Hydralazine HCl (Apresoline Tab) 50 mg TID PO 03/18/17 14:00 04/11/17 19:59 03/20/17 08:18 50 MG Polyethylene (Miralax Powder Packet) 17 gm DAILY PO 03/19/17 08:00 04/18/17 07:59 03/20/17 08:18 17 GM Senna (Senokot Tab) 17.2 mg QAM PO 03/19/17 08:00 04/18/17 07:59 03/20/17 08:17 17.2 MG Oxycodone HCl (Roxicodone Immediate Rel Tab) 5 mg Q2H PRN PO 03/18/17 22:00 03/27/17 15:29 03/20/17 06:36 5 MG Docusate Sodium (coLACE CAP) 100 mg BID PO 03/19/17 20:00 04/18/17 19:59 03/19/17 20:24 100 MG Lidocaine (Lidoderm Patch 5%) 1 patch QAM TD 03/20/17 08:00 04/19/17 07:59 03/20/17 08:20 1 PATCH Miscellaneous (Remove Lidoderm Patch) 1 ea DAILY@21 N/A 03/20/17 21:00 04/19/17 20:59 Sodium Chloride 1,000 ml @ 100 mls/hr Q10H IV 03/20/17 07:30 04/19/17 07:29 03/20/17 08:33 100 MLS/HR Impression (1) Acute kidney injury (2) Kidney disease, chronic, stage IV (GFR 15-29 ml/min) (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 Christy has acute on chronic kidney injury (baseline creatinine 3.0 - 3.3) due to acute inflammation in the setting of BETSY inhibitor therapy. Volume status and electrolyte balance remain acceptable at this time. He is s/p L radical nephrectomy 10/06 due to clear cell carcinoma of the kidney. He has metastasis to the lymph nodes. Mr. Christy was intolerant of Sutent therapy due to hypertension and nephrotic syndrome. He was recently transitioned to Opdivo therapy. Mr. Christy has a h/o diverticulitis and is s/p partial colectomy 2009. He was admitted with abdominal pain and CT findings suggestive of colitis. His inflammation may be related to infection or autoimmune related to Opdivo therapy. Recommendations -- renal function slightly worsened, persistent net negative with high UO --as renal function has been worsening slowly, will get vascular surgery for vein mapping and preparation for AVF -- start on NS , aim for net even -- Continue to hold Lisinopril and Furosemide. -- continue on amlodipine and metoprolol and increase hydralazine to 100 milligram t.i.d. -- Protect nondominant arm (left) for possible dialysis access --prednisone dose should be managed by his oncologist as previously he required high dose of prednisone for multiple joint pain thought to be secondary to Opdivo and dose was tapered every 10 days --He will need outpatient follow-up with Hem Oncology for management of prednisone and restart of of Opdiva once prednisone dose goes lower
[2017-03-20] MEDS: LEVOFLOXACIN 250 MG TAB PO SCH (10:30)
--- NOTE | 2017-03-20 12:16 | Progress Note ---
Subjective Date of Service: Mar 20, 2017. Subjective Pt evaluation today including: conversation w/ patient, physical exam, chart review, lab review, review of studies, review of inpatient medication list Problem List Medical Problems: (1) Acute dyspnea Status: Acute (2) Chronic kidney disease Status: Acute (3) Renal cell carcinoma Status: Acute Review of Systems Constitutional: No see HPI, No fever, No chills, No sweats, No weight loss, No weakness, No fatigue, No problem reported Eyes: No see HPI, No worsening of vision, No eye pain, No redness, No discharge , No diplopia, No problem reported ENT: No see HPI, No hearing loss, No unusual epistaxis, No nasal symptoms, No sore throat, No tinnitus, No dental problems, No trouble swallowing, No problem reported Respiratory: No see HPI, No cough, No sputum, No wheezing, No shortness of breath, No dyspnea on exertion, No dyspnea at rest, No hemoptysis, No problem reported Abdomen: + pain, No see HPI, No nausea, No vomiting, No diarrhea, No constipation, No GI bleeding, No problem reported Musculoskeletal: No see HPI, No joint pain, No muscle pain, No swelling, No calf pain, No problem reported Psychiatric: No see HPI, No depression symptoms, No anhedonism, No anxiety, No insomnia, No substance abuse, No problem reported Heme: No see HPI, No abnormal bleeding/bruising, No clotting problems, No swollen lymph nodes, No night sweats, No problem reported Endo: No see HPI, No fatigue, No excessive thirst, No excessive urination, No problem reported Skin: No see HPI, No rash, No itch, No new/changing skin lesions, No color change, No bleeding, No problem reported Objective Vital Signs Date Time Temp Pulse Resp B/P (MAP) Pulse Ox O2 Delivery O2 Flow Rate FiO2 03/20/17 11:35 36.7 69 18 184/80 (114) 98 03/20/17 10:42 168/70 (102) 03/20/17 08:30 Room Air 03/20/17 08:04 36.7 64 18 184/88 (120) 98 Room Air 03/20/17 03:49 Room Air 03/20/17 03:45 36.7 66 20 150/75 (100) 97 Room Air 03/20/17 00:12 36.9 69 20 175/75 (108) 98 Room Air 03/19/17 22:12 Room Air 03/19/17 19:15 36.8 70 18 172/73 (106) 98 Room Air 03/19/17 16:16 36.7 65 16 129/65 (86) 98 Room Air 03/19/17 16:00 Room Air Physical Exam General Appearance: WD/WN, no apparent distress Eyes: normal inspection, EOMI ENT: normal ENT inspection, hearing grossly normal Neck: supple Respiratory/Chest: chest non-tender, lungs clear, normal breath sounds, no respiratory distress, no accessory muscle use Cardiovascular: regular rate, rhythm, no edema, no gallop, no JVD, no murmur Abdomen: normal bowel sounds, soft, + tenderness Extremities: normal range of motion, non-tender, normal inspection, no pedal edema 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, no motor/sensory deficits, alert, normal mood/affect, oriented x 3 Skin: normal color, warm/dry, no rash Laboratory Results Last 24 Hours Test 03/19/17 16:48 03/19/17 20:14 03/20/17 06:16 03/20/17 07:45 Bedside Glucose 238 mg/dl 266 mg/dl 101 mg/dl Sodium Level 141 mmol/L Potassium Level 3.8 mmol/L Chloride Level 110 mmol/L Carbon Dioxide Level 21 mmol/L Anion Gap 10.0 mmol/L Blood Urea Nitrogen 52 mg/dl Creatinine 3.70 mg/dl Est Creatinine Clear Calc Drug Dose 21.1 ml/min Estimated GFR () 19.0 Estimated GFR (Non- 16.4 BUN/Creatinine Ratio 13.9 Random Glucose 105 mg/dl Calcium Level 8.7 mg/dl Assessment and Plan 61 years old man with Hx of CKD stage 3-4, renal cell carcinoma S/P L radical nephrectomy currently on nivolumab presented with abdominal pain and divirticulitis Diverticulitis Has Hx of perforated viscus in the past he attributed it to minor trauma to the abdomen (his dog jumped on him) which is unlikely continue Levofloxacin/flagyl add lactinex continue supportive care possible side effect to nivolumab 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
--- NOTE | 2017-03-20 14:09 | DIAGNOSTIC IMAGING REPORT ---
VENOUS UPR EXT MAPPING BILAT CLINICAL HISTORY: 61 years-old Male presenting with end stage renal disease. TECHNIQUE: Real-time grayscale and color and spectral Doppler ultrasound imaging of the veins of the bilateral upper extremities was performed. Compression and augmentation were also utilized. COMPARISON: None. FINDINGS: Right: Subclavian vein: Patent. Internal jugular vein: Patent. Cephalic vein: Filling defect consistent with thrombus, which is likely nonocclusive. Basilic vein: Patent. Left: Subclavian vein: Patent. Internal jugular vein: Patent. Cephalic vein: Patent. Basilic vein: Patent. Other: None. IMPRESSION: Nonocclusive thrombus in the right cephalic vein. Electronically signed by: Loyd Horne M.D. 03/20/2017 2:08 PM Dictated Date/Time: 03/20/2017 2:06 PM
[2017-03-20] MEDS: LACTOBACILLUS ACIDOPHILUS 1 GM PACK PO SCH (17:33)
[2017-03-20] MEDS: HydrALAZINE HCL 20 MG/ML VIAL IV PRN (17:34)
[2017-03-20] MEDS ORDERED: NURSING VERBAL MED ORDER ONE (18:15)
[2017-03-20] MEDS: AMLODIPINE BESYLATE 5 MG TAB PO SCH (20:19)
[2017-03-20] MEDS: SIMVASTATIN 20 MG TAB PO SCH (20:20)
[2017-03-20] MEDS: INSULIN GLARGINE SOLOSTAR 100 UNITS/ML 3 ML PEN SC SCH (20:24)
[2017-03-21 00:01] VITALS: BP 164/71; PULSE 79; TEMP 36.6; O2SAT 97
[2017-03-21] MEDS: SODIUM CHLORIDE 0.9% 1000ML 1,000 ML IV SCH (04:02)
[2017-03-21] MEDS: OXYCODONE HCL IR 5 MG TAB (IMMEDIATE RELEASE) PO PRN ×4 (04:02→22:03)
[2017-03-21 04:11] VITALS: BP 146/68; PULSE 68; TEMP 36.9; O2SAT 97
[2017-03-21 07:39] LABS: BASO % 0.1 %; BASO ABS # 0.01 K/uL (0-0.2); COMPLETE YES; EOS % 0.5 %; HEMATOCRIT 30.9 % (42-52); IG% 2.5 %; LYMPH % 17.4 %; LYMPH ABS # 1.92 K/uL (1.2-3.4); MEAN CELL VOLUME 80.9 fL (80-100); MEAN CORPUSCULAR HGB CONC 33.3 g/dl (32-36); MEAN PLATELET VOLUME 9.9 fL (7.4-10.4); MONO % 10.2 %; NEUT % 69.3 %; PLATELET COUNT 194 K/uL (130-400); RED BLOOD COUNT 3.82 M/uL (4.7-6.1); WHITE BLOOD COUNT 11.01 K/uL (4.8-10.8)
[2017-03-21 07:49] VITALS: BP 168/87; PULSE 66; TEMP 36.7; O2SAT 98
[2017-03-21 08:04] LABS: ALB/GLOB RATIO 0.8 (0.9-2); BUN/CREATININE RATIO 14.6 (10-20); CALCIUM 8.7 mg/dl (8.5-10.1); CREATININE 3.4 mg/dl (0.60-1.40); MAGNESIUM 2.4 mg/dl (1.8-2.4); POTASSIUM 3.8 mmol/L (3.5-5.1)
[2017-03-21 08:05] LABS: PHOSPHORUS 4.3 mg/dl (2.5-4.9)
[2017-03-21] MEDS: POLYETHYLENE (MIRALAX) 17 GM PACK PO SCH (09:17)
[2017-03-21] MEDS: LIDODERM (LIDOCAINE) PATCH 5% TD SCH (09:17)
[2017-03-21] MEDS: SENNA 8.6 MG TAB PO SCH (09:19)
[2017-03-21] MEDS: LACTOBACILLUS ACIDOPHILUS 1 GM PACK PO SCH ×3 (09:19→17:38)
[2017-03-21] MEDS: ASPIRIN 81 MG ECTAB PO SCH (09:19)
[2017-03-21] MEDS: METRONIDAZOLE 500 MG TAB PO SCH ×3 (09:20→20:32)
[2017-03-21] MEDS: ESCITALOPRAM OXALATE 10 MG TAB PO SCH (09:20)
[2017-03-21] MEDS: FERROUS SULFATE 325 MG TAB PO SCH ×2 (09:20→20:30)
[2017-03-21] MEDS: DOCUSATE SODIUM 100 MG CAP PO SCH ×2 (09:21→20:30)
[2017-03-21] MEDS: INSULIN ASPART 100 UNITS/ML 3 ML PEN SC SCH ×4 (09:29→20:37)
[2017-03-21] MEDS: HEPARIN SOD 5000 UNIT/0.5 ML CARP SQ SCH ×2 (09:29→20:38)
--- NOTE | 2017-03-21 10:29 | Nephrology Progress Note ---
Nephrology Progress Note Date of Service Mar 21, 2017. Chief Complaint Follow-up for acute kidney injury with history of advanced CKD. Roland Causey Was seen and examined in his room this morning. He has been overall feeling well, abdominal pain resolved, continues to have back pain however seems to have improved. Renal function slightly improved and currently close to baseline, has mild electrolyte abnormality but potassium normal. Blood pressure continues to be elevated, volume status stable. Review of Systems A complete review of systems was performed. Pertinent positives are noted above. All other systems are negative. Vital Signs Last 8 Hrs Date Time Temp Pulse Resp B/P (MAP) Pulse Ox O2 Delivery O2 Flow Rate FiO2 03/21/17 07:49 36.7 66 18 168/87 (114) 98 Room Air 03/21/17 04:11 36.9 68 20 146/68 (94) 97 Room Air Last Recorded Weight Weight (Kilograms): 83.200 Physical Exam GENERAL: Middle-aged male, AAA x 3, pleasant, healthy-appearing, not in any distress. NECK: Supple, no JVD. RESPIRATORY: Normal breathing efforts, no accessory muscle use, clear to auscultation bilaterally, no wheezes or rales. CARDIOVASCULAR: S1, S2 normal, rate rhythm regular. EXTREMITY: No lower extremity edema NEURO: speech fluent. PSYCHIATRY: Normal mood and judgment Family History Cervical cancer Diabetes mellitus Heart disease Hypertension Myocardial infarction Pancreatic cancer Prostate cancer Negative for CKD/ESRD Social History Smokeless Tobacco Use: No Alcohol Use: none Drug Use: none Marital Status: single Housing Status: lives alone Occupation: retired Single, retired. Formerly worked for [employer]. Never a smoker. Laboratory Results Past 24 Hours 03/21/17 07:00 Red Blood Count 3.82, Mean Corpuscular Volume 80.9, Mean Corpuscular Hemoglobin 27.0, Mean Corpuscular Hemoglobin Concent 33.3, Mean Platelet Volume 9.9, Neutrophils (%) (Auto) 69.3, Lymphocytes (%) (Auto) 17.4, Monocytes (%) (Auto) 10.2, Eosinophils (%) (Auto) 0.5, Basophils (%) (Auto) 0.1, Neutrophils # (Auto ) 7.63, Lymphocytes # (Auto) 1.92, Monocytes # (Auto) 1.12, Eosinophils # (Auto ) 0.05, Basophils # (Auto) 0.01 03/21/17 07:00 Test 03/20/17 11:36 03/20/17 16:34 03/20/17 19:44 03/21/17 07:00 Bedside Glucose 186 mg/dl (70-99) 224 mg/dl (70-99) 302 mg/dl (70-99) White Blood Count 11.01 K/uL (4.8-10.8) Red Blood Count 3.82 M/uL (4.7-6.1) Hemoglobin 10.3 g/dL (14.0-18.0) Hematocrit 30.9 % (42-52) Mean Corpuscular Volume 80.9 fL (80-100) Mean Corpuscular Hemoglobin 27.0 pg (25-34) Mean Corpuscular Hemoglobin Concent 33.3 g/dl (32-36) Platelet Count 194 K/uL (130-400) Mean Platelet Volume 9.9 fL (7.4-10.4) Neutrophils (%) (Auto) 69.3 % Lymphocytes (%) (Auto) 17.4 % Monocytes (%) (Auto) 10.2 % Eosinophils (%) (Auto) 0.5 % Basophils (%) (Auto) 0.1 % Neutrophils # (Auto) 7.63 K/uL (1.4-6.5) Lymphocytes # (Auto) 1.92 K/uL (1.2-3.4) Monocytes # (Auto) 1.12 K/uL (0.11-0.59) Eosinophils # (Auto) 0.05 K/uL (0-0.5) Basophils # (Auto) 0.01 K/uL (0-0.2) RDW Standard Deviation 46.2 fL (36.4-46.3) RDW Coefficient of Variation 15.7 % (11.5-14.5) Immature Granulocyte % (Auto) 2.5 % Immature Granulocyte # (Auto) 0.28 K/uL (0.00-0.02) Anion Gap 10.0 mmol/L (3-11) Est Creatinine Clear Calc Drug Dose 23.0 ml/min Estimated GFR () 21.0 Estimated GFR (Non- 18.2 BUN/Creatinine Ratio 14.6 (10-20) Calcium Level 8.7 mg/dl (8.5-10.1) Phosphorus Level 4.3 mg/dl (2.5-4.9) Magnesium Level 2.4 mg/dl (1.8-2.4) Total Bilirubin 0.2 mg/dl (0.2-1) Aspartate Amino Transf (AST/SGOT) 9 U/L (15-37) Alanine Aminotransferase (ALT/SGPT) 16 U/L (12-78) Alkaline Phosphatase 38 U/L (45-117) Total Protein 5.1 gm/dl (6.4-8.2) Albumin 2.2 gm/dl (3.4-5.0) Globulin 2.9 gm/dl (2.5-4.0) Albumin/Globulin Ratio 0.8 (0.9-2) Test 03/21/17 08:02 Bedside Glucose 99 mg/dl (70-99) Allergies Coded Allergies: Iodinated Diagnostic Agents (Verified Allergy, Unknown, oil based, severe headaches, 10/27/16) EVENT OCCURED IN 1971, PT STATES HE HAS HAD 3 DIFFERENT WATER BASED IVP DYES WITH NO ISSUE Medications Current Inpatient Medications Medications (Trade) Dose Ordered Sig/Edward Route Start Time Stop Time Status Last Admin Dose Admin Acetaminophen (Tylenol Tab) 650 mg Q4H PRN PO 03/09/17 15:00 04/08/17 14:59 Al Hydrox/Mg Hydrox/Simethicone (Maalox Max Susp) 15 ml Q4H PRN PO 03/09/17 15:00 04/08/17 14:59 Polyethylene (Miralax Powder Packet) 17 gm DAILY PRN PO 03/09/17 15:00 04/08/17 14:59 03/18/17 08:12 17 GM Ondansetron HCl (Zofran Inj) 4 mg Q6H PRN IV 03/09/17 15:00 04/08/17 14:59 Heparin Sodium (Porcine) (Heparin Sq 5000 Unit/0.5ml) 5,000 unit Q12 SQ 03/09/17 17:00 04/08/17 16:59 03/21/17 09:29 5,000 UNIT Insulin Glargine (Lantus Solostar Pen) 14 units QPM SC 03/09/17 21:00 04/08/17 20:59 03/20/17 20:24 14 UNITS Insulin Aspart (novoLOG ASPART) SLIDING SCALE If C... ACHS SC 03/09/17 16:30 04/08/17 16:29 03/21/17 09:29 5 UNITS Glucose (Glucose 40% Gel) 15-30 GRAMS 15 GRAMS... UD PRN PO 03/09/17 15:00 04/08/17 14:59 Glucose (Glucose Chew Tab) 4-8 Tablets 4 Tabl... UD PRN PO 03/09/17 15:00 04/08/17 14:59 Dextrose (Dextrose 50% 50ML Syringe) 25-50ML OF 50% DW IV FOR... UD PRN IV 03/09/17 15:00 04/08/17 14:59 Glucagon (Glucagon Inj) 1 mg UD PRN SQ 03/09/17 15:00 04/08/17 14:59 Atenolol (Tenormin Tab) 50 mg DAILY PO 03/10/17 08:00 04/09/17 07:59 03/21/17 09:19 50 MG Escitalopram Oxalate (Lexapro Tab) 10 mg DAILY PO 03/10/17 08:00 04/09/17 07:59 03/20/17 08:19 10 MG Simvastatin (Zocor Tab) 20 mg QPM PO 03/09/17 21:00 04/08/17 20:59 03/20/17 20:20 20 MG Terazosin HCl (Hytrin Cap) 5 mg HS PO 03/09/17 21:00 04/08/17 20:59 03/20/17 20:20 5 MG Aspirin (Ecotrin Tab) 81 mg QAM PO 03/10/17 08:00 04/09/17 07:59 03/21/17 09:19 81 MG Calcitriol (Rocaltrol Cap) 0.25 mcg MoWeFr@0800 PO 03/10/17 08:00 04/09/17 07:59 03/20/17 08:18 0.25 MCG Ferrous Sulfate (Feosol Tab) 325 mg BID PO 03/09/17 20:00 04/08/17 19:59 03/21/17 09:20 325 MG Hydralazine HCl (HydrALAZINE INJ) 10 mg Q4H PRN IV 03/09/17 22:00 04/08/17 21:59 03/20/17 17:34 10 MG Amlodipine Besylate (Norvasc Tab) 10 mg HS PO 03/10/17 21:00 04/09/17 07:59 03/20/17 20:19 10 MG Levofloxacin (Consult) 1 ea UD PRN N/A 03/11/17 09:30 04/10/17 09:29 Levofloxacin (Levaquin Tab) 250 mg DAILY@11 PO 03/14/17 11:00 03/21/17 10:59 03/20/17 10:30 250 MG Metronidazole (Flagyl Tab) 500 mg TID PO 03/13/17 14:33 03/21/17 14:32 03/21/17 09:20 500 MG Prednisone (PredniSONE TAB) 40 mg DAILY PO 03/17/17 08:00 04/16/17 07:59 03/21/17 09:19 40 MG Menthol (Nice Summer) 1 summer PRN PRN PO 03/17/17 09:00 04/16/17 08:59 Senna (Senokot Tab) 17.2 mg DAILY PRN PO 03/17/17 09:30 04/16/17 09:29 03/19/17 20:23 17.2 MG Polyethylene (Miralax Powder Packet) 17 gm DAILY PO 03/19/17 08:00 04/18/17 07:59 03/21/17 09:17 17 GM Senna (Senokot Tab) 17.2 mg QAM PO 03/19/17 08:00 04/18/17 07:59 03/21/17 09:19 17.2 MG Oxycodone HCl (Roxicodone Immediate Rel Tab) 5 mg Q2H PRN PO 03/18/17 22:00 03/27/17 15:29 03/21/17 09:30 5 MG Docusate Sodium (coLACE CAP) 100 mg BID PO 03/19/17 20:00 04/18/17 19:59 03/21/17 09:21 100 MG Lidocaine (Lidoderm Patch 5%) 1 patch QAM TD 03/20/17 08:00 04/19/17 07:59 03/20/17 08:20 1 PATCH Miscellaneous (Remove Lidoderm Patch) 1 ea DAILY@21 N/A 03/20/17 21:00 04/19/17 20:59 03/20/17 20:21 1 EA Hydralazine HCl (Apresoline Tab) 100 mg TID PO 03/20/17 14:00 04/11/17 19:59 03/21/17 09:21 100 MG Lactobacillus Acidophilus (Lactinex Granules Pack) 1 gm TIDM PO 03/20/17 17:00 04/19/17 16:59 03/21/17 09:19 1 GM Impression (1) Acute kidney injury (2) Kidney disease, chronic, stage IV (GFR 15-29 ml/min) (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 Christy has acute on chronic kidney injury (baseline creatinine 3.0 - 3.3) due to acute inflammation in the setting of BETSY inhibitor therapy. Volume status and electrolyte balance remain acceptable at this time. He is s/p L radical nephrectomy 10/06 due to clear cell carcinoma of the kidney. He has metastasis to the lymph nodes. Mr. Christy was intolerant of Sutent therapy due to hypertension and nephrotic syndrome. He was recently transitioned to Opdivo therapy. Mr. Christy has a h/o diverticulitis and is s/p partial colectomy 2009. He was admitted with abdominal pain and CT findings suggestive of colitis. His inflammation may be related to infection or autoimmune related to Opdivo therapy. Recommendations -- discontinue IV fluid -- start on sodium bicarb 650 milligram p.o. daily -- as renal function now close to baseline, electrolyte electively sent stable, okay to be discharged with outpatient lab monitoring. --Please schedule for follow-up for outpatient nephrology follow-up in 1-2 weeks , lab before that. Schedule for repeat renal panel in 2-3 days after discharge. -- Continue to hold Lisinopril and Furosemide and continue on amlodipine and metoprolol and hydralazine to 100 milligram t.i.d. On discharge -- Protect nondominant arm (left) for possible dialysis access --prednisone dose should be managed by his oncologist as previously he required high dose of prednisone for multiple joint pain thought to be secondary to Opdivo and dose was tapered every 10 days --He will need outpatient follow-up with [facility] Oncology for management of prednisone and restart of of Opdiva once prednisone dose goes lower
--- NOTE | 2017-03-21 10:38 | Surgery Consultation ---
Consultation Date of Service Mar 21, 2017. Chief Complaint ESRD, need AVF creation History of Present Illness The patient is a 61 year old male with hx of L nephrectomy d/t clear cell renal ca and currently with metastasis, admitted with colitis and acute on chronic kidney injury, seen in consultation today for possible AVF creation as it will likely be required in future. Pt himself denies any complaints and states is feeling well presently aside from some mild fatigue. Denies VILLA, fever, chills, chest pain, SOB, abd pain, N/V, rest pain, claudication, other complaints. Pt underwent vein mapping yesterday, which demonstrates usable L AC cephalic V. Vitals Vital Signs Past 12 Hours Date Time Temp Pulse Resp B/P (MAP) Pulse Ox O2 Delivery O2 Flow Rate FiO2 03/21/17 07:49 36.7 66 18 168/87 (114) 98 Room Air 03/21/17 04:11 36.9 68 20 146/68 (94) 97 Room Air 03/21/17 00:01 36.6 79 18 164/71 (102) 97 Room Air 03/21/17 00:01 Room Air Allergies Coded Allergies: Iodinated Diagnostic Agents (Verified Allergy, Unknown, oil based, severe headaches, 10/27/16) EVENT OCCURED IN 1971, PT STATES HE HAS HAD 3 DIFFERENT WATER BASED IVP DYES WITH NO ISSUE Home Medications Scheduled Amlodipine (Norvasc), 10 MG PO DAILY Atenolol (Tenormin), 50 MG PO DAILY Calcitriol (Calcitriol), 0.25 MCG PO 3XWK Docusate Sodium (Colace), 1 CAP PO BID Escitalopram (Lexapro), 10 MG PO DAILY Ferrous Sulfate (Ferrous Sulfate), 325 MG PO BID Furosemide (Lasix), 40 MG PO DAILY Insulin Glargine (Lantus), 14 SC QPM Insulin Lispro (Human) (Humalog Kwikpen), 10-20 SC AFTER DINNER Lisinopril (Prinivil), 40 MG PO QAM Nivolumab (Opdivo), 40 MG IV Q14D Simvastatin (Zocor), 20 MG PO QPM Terazosin (Hytrin), 5 MG PO HS [Aspirin], 81 MG PO DAILY Scheduled PRN [Tylenol #4], 1 TAB PO q4-6 hours PRN for Pain Problem List Medical Problems: (1) Abdominal pain (2) Acute kidney injury (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 (4) Colitis (5) H/O unilateral nephrectomy (6) Hypertension (7) Kidney disease, chronic, stage IV (GFR 15-29 ml/min) (8) Renal mass, left (9) Shortness of breath Surgical / Medical History Hx Cardiac Surgery: Yes Hx Abdominal Surgery: Yes (colostomy w/ reversal, L nephrectomy) Hx Cancer Surgery: Yes (BASAL CELL CARCINOMA REMOVED; L nephrectomy for "2 kinds of cancer") Hx Thoracic Surgery: Yes (lung sx) Hx Orthopedic: Yes (hand, knee, leg, lumbar x6, L ankle (fixed)) Hx Urinary Tract Surgery: Yes (vasectomy) Past Medical/Surgical History: Cancer, Diabetes, Hypertension, Kidney Disease Family History Cervical cancer Diabetes mellitus Heart disease Hypertension Myocardial infarction Pancreatic cancer Prostate cancer Social History Smoking Status: Never Smoker Hx Tobacco Use In Past Year?: No Hx Alcohol Use - Type & Amnt: No Hx Substance Use -Type & Amnt: No Review of Systems Constitutional: No chills, No fever, No malaise Skin: No change in color Eyes: No visual changes ENMT: No sore throat Respiratory: No cough, No STEIN, No hemoptysis, No short of breath Cardiovascular: No chest pain, No palpitations, No syncope, No edema, No intermittent claudication Gastrointestinal: No abdominal pain, No nausea, No vomiting Neurologic: No dizziness, No lethargy, No numbness, No tingling Physical Exam Constitutional: General Apperance: heathly-appearing, well-nourished, well-developed Level of Distress: NAD Psychiatric: Mental Status: active & alert, normal mood, normal affect Orientation: oriented except where noted, to time, to place, to person Memory: recent memory normal, remote memory normal Head: normocephalic, atraumatic Eyes: EOM: EOMI ENMT: normal ENT inspection, hearing grossly normal Neck: supple, trachea midline Lungs: Respiratory effort: no dyspnea Auscultation: no rales/crackles, no rhonchi Cardiovascular: Apical Impulse: not displaced Heart Auscultation: RRR, no rubs, no gallops Peripheral Pulses: Pulses: full and equal, in all extremities except if noted Bruits: none appreciated Carotid Pulse: normal on the left, normal on the right Brachial Pulses: normal on the left, normal on the right Radial Pulse: normal on the left, normal on the right Femoral Pulse: normal on the left, normal on the right Posterior Tibialis Pulse: decreased on the left, decreased on the right Dorsalis Pedis Pulse: decreased on the left, decreased on the right Abdomen: Bowel Sounds: normal Inspection & Palpation: soft, non-distended, no tenderness, guarding & rebound Musculoskeletal: normal strength (5/5 throughout), normal tone Extremities: Upper Right: no cyanosis, no edema, no varicosities Upper Left: no cyanosis, no edema, no varicosities Lower Right: no cyanosis, no edema, no varicosities Lower Left: no cyanosis, no edema, no varicosities Neurologic: Cranial Nerves: grossly intact Sensation: grossly intact Assessment and Plan ASSESSMENT and PLAN: ESRD Discussed LUE AC Cephalic v AVF creation with pt, he is agreeable. Planning on tomorrow morning(MON) for AVF creation. Can be d/c after AVF creation tomorrow if appropriate per medicine. Procedure, risks, benefits, and alternatives discussed with pt, he expresses understanding and agreement.
--- NOTE | 2017-03-21 10:56 | Hematology/Oncology Prog Note ---
Hematology/Onc Progress Note Date of Service Mar 21, 2017. Diagnoses Metastatic renal cell carcinoma Abdominal pain rule out immune mediated colitis versus diverticulitis Medications Medications Administered Medications (Trade) Dose Ordered Sig/Edward Route Start Time Stop Time Status Last Admin Dose Admin Polyethylene (Miralax Powder Packet) 17 gm DAILY PRN PO 03/09/17 15:00 04/08/17 14:59 03/18/17 08:12 17 GM Heparin Sodium (Porcine) (Heparin Sq 5000 Unit/0.5ml) 5,000 unit Q12 SQ 03/09/17 17:00 04/08/17 16:59 03/21/17 09:29 5,000 UNIT Insulin Glargine (Lantus Solostar Pen) 14 units QPM SC 03/09/17 21:00 04/08/17 20:59 03/20/17 20:24 14 UNITS Insulin Aspart (novoLOG ASPART) SLIDING SCALE If C... ACHS SC 03/09/17 16:30 04/08/17 16:29 03/21/17 09:29 5 UNITS Morphine Sulfate (MoRPHine SULFATE INJ) 4 mg Q4H PRN IV 03/09/17 15:00 03/18/17 20:25 DC 03/18/17 18:34 4 MG Atenolol (Tenormin Tab) 50 mg DAILY PO 03/10/17 08:00 04/09/17 07:59 03/21/17 09:19 50 MG Docusate Sodium (coLACE CAP) 100 mg BID PO 03/09/17 20:00 03/20/17 08:46 DC 03/20/17 08:19 100 MG Escitalopram Oxalate (Lexapro Tab) 10 mg DAILY PO 03/10/17 08:00 04/09/17 07:59 03/20/17 08:19 10 MG Furosemide (Lasix Tab) 40 mg DAILY PO 03/10/17 08:00 03/11/17 11:23 DC 03/11/17 07:52 40 MG Lisinopril (Zestril Tab) 40 mg QAM PO 03/10/17 08:00 03/11/17 11:23 DC 03/11/17 07:52 40 MG Simvastatin (Zocor Tab) 20 mg QPM PO 03/09/17 21:00 04/08/17 20:59 03/20/17 20:20 20 MG Terazosin HCl (Hytrin Cap) 5 mg HS PO 03/09/17 21:00 04/08/17 20:59 03/20/17 20:20 5 MG Aspirin (Ecotrin Tab) 81 mg QAM PO 03/10/17 08:00 04/09/17 07:59 03/21/17 09:19 81 MG Calcitriol (Rocaltrol Cap) 0.25 mcg MoWeFr@0800 PO 03/10/17 08:00 04/09/17 07:59 03/20/17 08:18 0.25 MCG Ferrous Sulfate (Feosol Tab) 325 mg BID PO 03/09/17 20:00 04/08/17 19:59 03/21/17 09:20 325 MG Hydralazine HCl (HydrALAZINE INJ) 10 mg Q4H PRN IV 03/09/17 22:00 04/08/17 21:59 03/20/17 17:34 10 MG Methylprednisolone Sodium Succinate 80 mg/Syringe 1.28 ml @ 1.5 mls/min DAILY IV 03/10/17 09:00 03/11/17 10:33 DC 03/11/17 07:50 1.5 MLS/MIN Amlodipine Besylate (Norvasc Tab) 10 mg HS PO 03/10/17 21:00 04/09/17 07:59 03/20/17 20:19 10 MG Levofloxacin 500 mg/Prmx 100 ml @ 100 mls/hr NOW ONCE IV 03/11/17 10:00 03/11/17 10:59 DC 03/11/17 11:18 100 MLS/HR Metronidazole 500 mg/Prmx 100 ml @ 100 mls/hr Q8H IV 03/11/17 10:00 03/13/17 14:35 DC 03/13/17 10:35 100 MLS/HR Prednisone (PredniSONE TAB) 5 mg QAM PO 03/12/17 08:00 03/16/17 16:32 DC 03/16/17 08:05 5 MG Levofloxacin 250 mg/Prmx 50 ml @ 50 mls/hr Q24H IV 03/12/17 11:00 03/13/17 14:31 DC 03/13/17 11:44 50 MLS/HR Potassium Chloride (Klor-Con M10) 20 meq NOW STAT PO 03/12/17 07:56 03/12/17 08:01 DC 03/12/17 09:02 20 MEQ Hydralazine HCl (Apresoline Tab) 10 mg TID PO 03/12/17 20:00 03/13/17 16:09 DC 03/13/17 14:00 10 MG Hydralazine HCl (Apresoline Tab) 10 mg 1630 ONCE PO 03/12/17 16:30 03/12/17 16:31 DC 03/12/17 16:46 10 MG Levofloxacin (Levaquin Tab) 250 mg DAILY@11 PO 03/14/17 11:00 03/21/17 10:59 03/20/17 10:30 250 MG Metronidazole (Flagyl Tab) 500 mg TID PO 03/13/17 14:33 03/21/17 14:32 03/21/17 09:20 500 MG Oxycodone HCl (Roxicodone Immediate Rel Tab) 5 mg Q6 PRN PO 03/13/17 15:30 03/18/17 20:25 DC 03/18/17 15:13 5 MG Hydralazine HCl (Apresoline Tab) 25 mg TID PO 03/13/17 20:00 03/18/17 13:02 DC 03/18/17 08:13 25 MG Sodium Chloride 1,000 ml @ 100 mls/hr Q10H IV 03/15/17 10:00 03/18/17 13:02 DC 03/18/17 09:10 100 MLS/HR Prednisone (PredniSONE TAB) 40 mg NOW STAT PO 03/16/17 16:23 03/16/17 16:31 DC 03/16/17 17:40 40 MG Prednisone (PredniSONE TAB) 40 mg DAILY PO 03/17/17 08:00 04/16/17 07:59 03/21/17 09:19 40 MG Menthol (Nice Trista) 24 trista STK-MED ONCE .ROUTE 03/17/17 07:54 03/17/17 07:55 DC 03/17/17 08:04 24 TRISTA Senna (Senokot Tab) 17.2 mg DAILY PRN PO 03/17/17 09:30 04/16/17 09:29 03/19/17 20:23 17.2 MG Hydralazine HCl (Apresoline Tab) 50 mg TID PO 03/18/17 14:00 03/20/17 10:00 DC 03/20/17 08:18 50 MG Polyethylene (Miralax Powder Packet) 17 gm DAILY PO 03/19/17 08:00 04/18/17 07:59 03/21/17 09:17 17 GM Polyethylene (Miralax Powder Packet) 17 gm 1737 ONCE PO 03/18/17 17:37 03/18/17 18:23 DC 03/18/17 18:46 17 GM Senna (Senokot Tab) 17.2 mg QAM PO 03/19/17 08:00 04/18/17 07:59 03/21/17 09:19 17.2 MG Senna (Senokot Tab) 17.2 mg 1737 ONCE PO 03/18/17 17:37 03/18/17 18:23 DC 03/18/17 18:46 17.2 MG Oxycodone HCl (Roxicodone Immediate Rel Tab) 5 mg Q2H PRN PO 03/18/17 22:00 03/27/17 15:29 03/21/17 09:30 5 MG Oxycodone HCl (Roxicodone Immediate Rel Tab) 10 mg NOW STAT PO 03/18/17 20:22 03/18/17 21:02 DC 03/18/17 21:35 10 MG Docusate Sodium (coLACE CAP) 100 mg 1345 ONCE PO 03/19/17 13:45 03/19/17 13:46 DC 03/19/17 13:49 100 MG Docusate Sodium (coLACE CAP) 100 mg BID PO 03/19/17 20:00 04/18/17 19:59 03/21/17 09:21 100 MG Lidocaine (Lidoderm Patch 5%) 1 patch QAM TD 03/20/17 08:00 04/19/17 07:59 03/20/17 08:20 1 PATCH Miscellaneous (Remove Lidoderm Patch) 1 ea DAILY@21 N/A 03/20/17 21:00 04/19/17 20:59 03/20/17 20:21 1 EA Sodium Chloride 1,000 ml @ 100 mls/hr Q10H IV 03/20/17 07:30 03/21/17 09:33 DC 03/21/17 04:02 100 MLS/HR Hydralazine HCl (Apresoline Tab) 100 mg TID PO 03/20/17 14:00 04/11/17 19:59 03/21/17 09:21 100 MG Lactobacillus Acidophilus (Lactinex Granules Pack) 1 gm TIDM PO 03/20/17 17:00 04/19/17 16:59 03/21/17 09:19 1 GM Subjective He states that his abdominal pain is better. No diarrhea no fever. We should be able to back down on his prednisone. Review of Systems: Constitutional: Negative for night sweats, or fever Eyes: Negative for event change of vision ENT: Negative for epistaxis, nasal discharge, sore throat, or deafness Cardiovascular: Negative for chest pain, palpitations, dizziness, diaphoresis Respiratory: Negative for new shortness of breath,hemoptysis, or purulent cough Gastrointestinal: Negative for diarrhea, hematemesis, melena, nausea, vomiting , or dyspepsia Integumentary (skin): Negative for rash or jaundice discoloration Genitourinary: Negative for urinary frequency, hematuria, or dysuria Neurological: Negative for weakness, seizure activity, headache, or dizziness Lymphatic/Hematologic: Negative for petechiae, bleeding or new adenopathy Musculoskeletal: Negative for new joint or back pain Allergic/Immunologic: Negative for unusual rash or pruritis. Vital Signs Vital Signs Past 12 Hours Date Time Temp Pulse Resp B/P (MAP) Pulse Ox O2 Delivery O2 Flow Rate FiO2 03/21/17 07:49 36.7 66 18 168/87 (114) 98 Room Air 03/21/17 04:11 36.9 68 20 146/68 (94) 97 Room Air 03/21/17 00:01 36.6 79 18 164/71 (102) 97 Room Air 03/21/17 00:01 Room Air Physical Exam Constitutional: General Apperance: heathly-appearing Level of Distress: NAD Psychiatric: Mental Status: active & alert Orientation: oriented except where noted Lungs: Auscuitation: CTA except as noted Cardiovascular: Heart Auscultation: RRR Abdomen: Inspection & Palpation: soft, LLQ tenderness Extremities: no edema Laboratory Last 24 Hours Test 03/20/17 11:36 03/20/17 16:34 03/20/17 19:44 03/21/17 07:00 Bedside Glucose 186 mg/dl 224 mg/dl 302 mg/dl White Blood Count 11.01 K/uL Red Blood Count 3.82 M/uL Hemoglobin 10.3 g/dL Hematocrit 30.9 % Mean Corpuscular Volume 80.9 fL Mean Corpuscular Hemoglobin 27.0 pg Mean Corpuscular Hemoglobin Concent 33.3 g/dl Platelet Count 194 K/uL Mean Platelet Volume 9.9 fL Neutrophils (%) (Auto) 69.3 % Lymphocytes (%) (Auto) 17.4 % Monocytes (%) (Auto) 10.2 % Eosinophils (%) (Auto) 0.5 % Basophils (%) (Auto) 0.1 % Neutrophils # (Auto) 7.63 K/uL Lymphocytes # (Auto) 1.92 K/uL Monocytes # (Auto) 1.12 K/uL Eosinophils # (Auto) 0.05 K/uL Basophils # (Auto) 0.01 K/uL RDW Standard Deviation 46.2 fL RDW Coefficient of Variation 15.7 % Immature Granulocyte % (Auto) 2.5 % Immature Granulocyte # (Auto) 0.28 K/uL Sodium Level 142 mmol/L Potassium Level 3.8 mmol/L Chloride Level 112 mmol/L Carbon Dioxide Level 20 mmol/L Anion Gap 10.0 mmol/L Blood Urea Nitrogen 50 mg/dl Creatinine 3.40 mg/dl Est Creatinine Clear Calc Drug Dose 23.0 ml/min Estimated GFR () 21.0 Estimated GFR (Non- 18.2 BUN/Creatinine Ratio 14.6 Random Glucose 104 mg/dl Calcium Level 8.7 mg/dl Phosphorus Level 4.3 mg/dl Magnesium Level 2.4 mg/dl Total Bilirubin 0.2 mg/dl Aspartate Amino Transf (AST/SGOT) 9 U/L Alanine Aminotransferase (ALT/SGPT) 16 U/L Alkaline Phosphatase 38 U/L Total Protein 5.1 gm/dl Albumin 2.2 gm/dl Globulin 2.9 gm/dl Albumin/Globulin Ratio 0.8 Test 03/21/17 08:02 Bedside Glucose 99 mg/dl Assessment & Plan Metastatic renal cell carcinoma rule out immune mediated colitis versus diverticulitis I believe we can safely back down his prednisone that is currently at 40 mg a day to 20 mg a day. I suspect discharge is rather imminent and we will arrange for follow-up in our clinic in a week or 10 days. Once the prednisone is cut the 10 mg I suspect we can resume with all Depo however I am concerned about the recent results of the CT image reflecting progression of disease. These findings may represent pseudo-progression secondary to Opdivo however this is a very difficult call.
[2017-03-21 11:33] VITALS: BP 172/75; PULSE 72; TEMP 36.7; O2SAT 98
[2017-03-21] MEDS: SODIUM BICARBONATE 650 MG TAB PO SCH (12:38)
[2017-03-21 15:04] VITALS: BP 167/78; PULSE 65; TEMP 36.9; O2SAT 98
[2017-03-21] MEDS: LEVOFLOXACIN 250 MG TAB PO SCH (15:58)
--- NOTE | 2017-03-21 17:48 | Anesthesiology Progress Note ---
Anesthesia Progress Note Date of Service Mar 21, 2017. Progress Notes The patient is scheduled for a L AC fistula tomorrow for impending dialysis treatment. The patient has a history of L nephrectomy due to L kidney cancer that has metastasized. His R kidney has a mass on it. He has acute on chronic renal failure due to drug induced nephrotic syndrome but has never required dialysis. Other PMH includes recent SOB, HTN, dyslipidemia, diverticulosis, insulin dependent DM, anemia, and skin cancer. He state no problems with anesthesia, but was noted to be a difficult intubation with MAC 3 blade but easy Grade1 view intubation with the [place] scope during his nephrectomy in 2015. His recent CXR was normal. His EKG showed NSR. His recent echocardiogram showed an EF 65% with borderline LVH. Labs are significant for WBC 11, hgb 10.3. Cl 112, bicarb 20, BUN 50, Cr 3.4, and albumin 2.2. On exam the patient has a mustache with a MP 2 airway. Dentition is intact. Lungs were clear. Heart was RRR. Carotids were negative for bruits. The patient was consented to MAC sedation with general anesthesia as a backup plan. He was counseled to remain NPO after midnight except for sips of water with pills.
--- NOTE | 2017-03-21 19:10 | Progress Note ---
Subjective Date of Service: Mar 21, 2017. Subjective Pt evaluation today including: conversation w/ patient, physical exam, chart review, lab review, review of studies, review of inpatient medication list Problem List Medical Problems: (1) Acute dyspnea Status: Acute (2) Chronic kidney disease Status: Acute (3) Renal cell carcinoma Status: Acute Review of Systems Constitutional: No see HPI, No fever, No chills, No sweats, No weight loss, No weakness, No fatigue, No problem reported Eyes: No see HPI, No worsening of vision, No eye pain, No redness, No discharge , No diplopia, No problem reported ENT: No see HPI, No hearing loss, No unusual epistaxis, No nasal symptoms, No sore throat, No tinnitus, No dental problems, No trouble swallowing, No problem reported Respiratory: No see HPI, No cough, No sputum, No wheezing, No shortness of breath, No dyspnea on exertion, No dyspnea at rest, No hemoptysis, No problem reported Cardiac: No see HPI, No chest pain, No orthopnea, No PND, No edema, No claudication, No palpitations, No problem reported Abdomen: + pain, No see HPI, No nausea, No vomiting, No diarrhea, No constipation, No GI bleeding, No problem reported Musculoskeletal: No see HPI, No joint pain, No muscle pain, No swelling, No calf pain, No problem reported Neurologic: No see HPI, No memory loss, No paralysis, No weakness, No numbness/ tingling, No vertigo, No balance problems, No problem reported Psychiatric: No see HPI, No depression symptoms, No anhedonism, No anxiety, No insomnia, No substance abuse, No problem reported Heme: No see HPI, No abnormal bleeding/bruising, No clotting problems, No swollen lymph nodes, No night sweats, No problem reported Endo: No see HPI, No fatigue, No excessive thirst, No excessive urination, No problem reported Skin: No see HPI, No rash, No itch, No new/changing skin lesions, No color change, No bleeding, No problem reported Objective Vital Signs Date Time Temp Pulse Resp B/P (MAP) Pulse Ox O2 Delivery O2 Flow Rate FiO2 03/21/17 16:00 Room Air 03/21/17 15:04 36.9 65 20 167/78 (107) 98 Room Air 03/21/17 11:33 36.7 72 18 172/75 (107) 98 03/21/17 09:30 Room Air 03/21/17 07:49 36.7 66 18 168/87 (114) 98 Room Air 03/21/17 04:11 36.9 68 20 146/68 (94) 97 Room Air 03/21/17 00:01 36.6 79 18 164/71 (102) 97 Room Air 03/21/17 00:01 Room Air 03/20/17 19:26 36.7 75 16 178/71 (106) 97 Room Air Physical Exam General Appearance: WD/WN, no apparent distress Eyes: normal inspection, EOMI ENT: normal ENT inspection, hearing grossly normal, TMs normal, pharynx normal Neck: supple, no adenopathy, thyroid normal, no JVD Respiratory/Chest: chest non-tender, lungs clear, normal breath sounds, no respiratory distress, no accessory muscle use Cardiovascular: regular rate, rhythm, no edema, no gallop, no JVD, no murmur Abdomen: normal bowel sounds, + distended, + tenderness Extremities: normal range of motion, non-tender, normal inspection, no pedal edema, no calf tenderness Neurologic/Psychiatric: test design engineer II-XII nml as tested, no motor/sensory deficits, alert, normal mood/affect, oriented x 3 Skin: normal color, warm/dry, no rash Laboratory Results Last 24 Hours Test 03/20/17 19:44 03/21/17 07:00 03/21/17 08:02 03/21/17 11:31 Bedside Glucose 302 mg/dl 99 mg/dl 125 mg/dl White Blood Count 11.01 K/uL Red Blood Count 3.82 M/uL Hemoglobin 10.3 g/dL Hematocrit 30.9 % Mean Corpuscular Volume 80.9 fL Mean Corpuscular Hemoglobin 27.0 pg Mean Corpuscular Hemoglobin Concent 33.3 g/dl Platelet Count 194 K/uL Mean Platelet Volume 9.9 fL Neutrophils (%) (Auto) 69.3 % Lymphocytes (%) (Auto) 17.4 % Monocytes (%) (Auto) 10.2 % Eosinophils (%) (Auto) 0.5 % Basophils (%) (Auto) 0.1 % Neutrophils # (Auto) 7.63 K/uL Lymphocytes # (Auto) 1.92 K/uL Monocytes # (Auto) 1.12 K/uL Eosinophils # (Auto) 0.05 K/uL Basophils # (Auto) 0.01 K/uL RDW Standard Deviation 46.2 fL RDW Coefficient of Variation 15.7 % Immature Granulocyte % (Auto) 2.5 % Immature Granulocyte # (Auto) 0.28 K/uL Sodium Level 142 mmol/L Potassium Level 3.8 mmol/L Chloride Level 112 mmol/L Carbon Dioxide Level 20 mmol/L Anion Gap 10.0 mmol/L Blood Urea Nitrogen 50 mg/dl Creatinine 3.40 mg/dl Est Creatinine Clear Calc Drug Dose 23.0 ml/min Estimated GFR () 21.0 Estimated GFR (Non- 18.2 BUN/Creatinine Ratio 14.6 Random Glucose 104 mg/dl Calcium Level 8.7 mg/dl Phosphorus Level 4.3 mg/dl Magnesium Level 2.4 mg/dl Total Bilirubin 0.2 mg/dl Aspartate Amino Transf (AST/SGOT) 9 U/L Alanine Aminotransferase (ALT/SGPT) 16 U/L Alkaline Phosphatase 38 U/L Total Protein 5.1 gm/dl Albumin 2.2 gm/dl Globulin 2.9 gm/dl Albumin/Globulin Ratio 0.8 Test 03/21/17 16:41 Bedside Glucose 212 mg/dl Assessment and Plan 61 years old man with Hx of CKD stage 3-4, renal cell carcinoma S/P L radical nephrectomy currently on nivolumab presented with abdominal pain and diverticulitis Diverticulitis, continued to have abdominal pain but the area improving Has Hx of perforated viscus in the past he attributed it to minor trauma to the abdomen (his dog jumped on him) which is unlikely continue Levofloxacin/flagyl, total of 14 days add lactinex continue supportive care possible side effect to nivolumab JOSHUA/CKD, currently patient becoming end-stage disease rd scientist consult appreciated Planning for radiation of AV fistula tomorrow continue holding nephrotoxic continue hydration renal cell carcinoma S/P L radical nephrectomy LN mets CT scan showed potential enlargement oncologist is following DVT prophylaxis / heparin SQ FULL CODE Continued [facility] stay due to: multiple IV medications needed Discharge planning: home
[2017-03-21 20:28] VITALS: BP 142/70; PULSE 73; TEMP 36.8; O2SAT 97
[2017-03-21] MEDS: SIMVASTATIN 20 MG TAB PO SCH (20:30)
[2017-03-21] MEDS: AMLODIPINE BESYLATE 5 MG TAB PO SCH (20:31)
[2017-03-21] MEDS: INSULIN GLARGINE SOLOSTAR 100 UNITS/ML 3 ML PEN SC SCH (20:37)
[2017-03-22] VITALS (7 sets, daily range): BP systolic 129–168; BP diastolic 70–81; PULSE 62–78; TEMP 36.6–36.9; O2SAT 96–98
[2017-03-22] MEDS ORDERED: CEFAZOLIN 2000 MG/60 ML D5W 60 ML IV SCH (06:00)
[2017-03-22 06:39] LABS: BASO % 0.1 %; BASO ABS # 0.01 K/uL (0-0.2); COMPLETE YES; EOS % 0.4 %; IG% 1.6 %; LYMPH % 16.9 %; LYMPH ABS # 1.92 K/uL (1.2-3.4); MEAN CELL VOLUME 82.1 fL (80-100); MEAN CORPUSCULAR HEMOGLOBIN 26.2 pg (25-34); MEAN CORPUSCULAR HGB CONC 31.9 g/dl (32-36); MEAN PLATELET VOLUME 10.1 fL (7.4-10.4); MONO % 9.8 %; NEUT % 71.2 %; PLATELET COUNT 204 K/uL (130-400); WHITE BLOOD COUNT 11.36 K/uL (4.8-10.8)
[2017-03-22 07:14] LABS: BUN/CREATININE RATIO 15.1 (10-20); CREATININE 3.6 mg/dl (0.60-1.40); MAGNESIUM 2.4 mg/dl (1.8-2.4); POTASSIUM 3.6 mmol/L (3.5-5.1)
[2017-03-22] MEDS: METRONIDAZOLE 500 MG TAB PO SCH ×3 (07:25→19:59)
[2017-03-22] MEDS: SENNA 8.6 MG TAB PO SCH (07:26)
[2017-03-22] MEDS: FERROUS SULFATE 325 MG TAB PO SCH ×2 (07:27→19:58)
[2017-03-22] MEDS: ESCITALOPRAM OXALATE 10 MG TAB PO SCH (07:28)
[2017-03-22] MEDS: DOCUSATE SODIUM 100 MG CAP PO SCH ×2 (07:28→19:58)
[2017-03-22] MEDS: ASPIRIN 81 MG ECTAB PO SCH (07:29)
[2017-03-22] MEDS: CALCITRIOL 0.25 MCG CAP PO SCH (07:31)
[2017-03-22] MEDS: LACTOBACILLUS ACIDOPHILUS 1 GM PACK PO SCH ×3 (07:33→17:59)
[2017-03-22] MEDS: SODIUM BICARBONATE 650 MG TAB PO SCH (07:34)
[2017-03-22] MEDS: POLYETHYLENE (MIRALAX) 17 GM PACK PO SCH (07:34)
[2017-03-22] MEDS: LIDODERM (LIDOCAINE) PATCH 5% TD SCH (07:35)
[2017-03-22] MEDS: HEPARIN SOD 5000 UNIT/0.5 ML CARP SQ SCH ×2 (07:36→20:31)
[2017-03-22] MEDS: OXYCODONE HCL IR 5 MG TAB (IMMEDIATE RELEASE) PO PRN ×4 (07:41→22:12)
[2017-03-22] MEDS: INSULIN ASPART 100 UNITS/ML 3 ML PEN SC SCH ×4 (08:24→20:32)
[2017-03-22] MEDS ORDERED: GELATIN SPONGE 12-7MM ONE (11:09)
[2017-03-22] MEDS ORDERED: THROMBIN FOR SOLN 20000 UNIT KIT ONE (11:09)
[2017-03-22] MEDS ORDERED: HEPARIN SOD (PORCINE) 1000 UNIT/ML 10 ML VIAL ONE (11:10)
[2017-03-22] MEDS ORDERED: LIDOCAINE HCL 1% 20 ML VIAL ONE (11:10)
[2017-03-22] MEDS ORDERED: BUPIVACAINE/EPINEPHRINE 0.5% MPF 1:200,000 10 ML VIAL ONE (11:11)
[2017-03-22] MEDS ORDERED: MIDAZOLAM HCL 1 MG/ML 2ML VIAL ONE ×2 (11:39)
[2017-03-22] MEDS ORDERED: LIDOCAINE HCL 2% 2 ML VIAL (20MG/ML) ONE (11:39)
[2017-03-22] MEDS ORDERED: PROPOFOL IV EMULSION 10 MG/ML 20 ML VIAL IV ONE (11:39)
[2017-03-22] MEDS ORDERED: FENTANYL CITRATE INJ 50 MCG/1 ML 2 ML VIAL ONE (11:39)
--- NOTE | 2017-03-22 11:45 | Progress Note ---
Progress Note Date of Service Mar 22, 2017. Progress Note Patient for left arm av fistula creation today. I have discussed the risks options and benefits of the procedure with the patient. The patient understands the risks options and benefits and agrees to the procedure. I have examined the patient, reviewed the History & Physical and in the interval since the performance of the History & Physical I have noted the following changes of clinical significance: No changes noted
--- NOTE | 2017-03-22 11:54 | Nephrology Progress Note ---
Nephrology Progress Note Date of Service Mar 22, 2017. Chief Complaint Follow-up for acute kidney injury with history of advanced CKD. Roland Causey Was seen and examined in his room this morning. He has been overall doing well, abdominal pain resolved, diarrhea improved. Blood pressure still slightly elevated today but denies any headache, chest pain. Volume status and electrolyte remain acceptable. He is scheduled for AV fistula placement today. Review of Systems A complete review of systems was performed. Pertinent positives are noted above. All other systems are negative. Vital Signs Last 8 Hrs Date Time Temp Pulse Resp B/P (MAP) Pulse Ox O2 Delivery O2 Flow Rate FiO2 03/22/17 08:24 36.6 62 18 168/81 (110) 98 Room Air 03/22/17 04:40 36.7 75 18 151/79 (103) 96 Room Air Last Recorded Weight Weight (Kilograms): 82.800 Physical Exam GENERAL: Middle-aged male, AAA x 3, pleasant, healthy-appearing, not in any distress. NECK: Supple, no JVD. RESPIRATORY: Normal breathing efforts, no accessory muscle use, clear to auscultation bilaterally, no wheezes or rales. CARDIOVASCULAR: S1, S2 normal, rate rhythm regular. EXTREMITY: No lower extremity edema NEURO: speech fluent. PSYCHIATRY: Normal mood and judgment Family History Cervical cancer Diabetes mellitus Heart disease Hypertension Myocardial infarction Pancreatic cancer Prostate cancer Negative for CKD/ESRD Social History Smokeless Tobacco Use: No Alcohol Use: none Drug Use: none Marital Status: single Housing Status: lives alone Occupation: retired Single, retired. Formerly worked for [employer]. Never a smoker. Laboratory Results Past 24 Hours 03/22/17 06:06 Red Blood Count 3.90, Mean Corpuscular Volume 82.1, Mean Corpuscular Hemoglobin 26.2, Mean Corpuscular Hemoglobin Concent 31.9, Mean Platelet Volume 10.1, Neutrophils (%) (Auto) 71.2, Lymphocytes (%) (Auto) 16.9, Monocytes (%) (Auto) 9.8, Eosinophils (%) (Auto) 0.4, Basophils (%) (Auto) 0.1, Neutrophils # (Auto) 8.10, Lymphocytes # (Auto) 1.92, Monocytes # (Auto) 1.11, Eosinophils # (Auto) 0.04, Basophils # (Auto) 0.01 03/22/17 06:06 Test 03/21/17 11:31 03/21/17 16:41 03/21/17 20:04 03/22/17 06:06 Bedside Glucose 125 mg/dl (70-99) 212 mg/dl (70-99) 222 mg/dl (70-99) White Blood Count 11.36 K/uL (4.8-10.8) Red Blood Count 3.90 M/uL (4.7-6.1) Hemoglobin 10.2 g/dL (14.0-18.0) Hematocrit 32.0 % (42-52) Mean Corpuscular Volume 82.1 fL (80-100) Mean Corpuscular Hemoglobin 26.2 pg (25-34) Mean Corpuscular Hemoglobin Concent 31.9 g/dl (32-36) Platelet Count 204 K/uL (130-400) Mean Platelet Volume 10.1 fL (7.4-10.4) Neutrophils (%) (Auto) 71.2 % Lymphocytes (%) (Auto) 16.9 % Monocytes (%) (Auto) 9.8 % Eosinophils (%) (Auto) 0.4 % Basophils (%) (Auto) 0.1 % Neutrophils # (Auto) 8.10 K/uL (1.4-6.5) Lymphocytes # (Auto) 1.92 K/uL (1.2-3.4) Monocytes # (Auto) 1.11 K/uL (0.11-0.59) Eosinophils # (Auto) 0.04 K/uL (0-0.5) Basophils # (Auto) 0.01 K/uL (0-0.2) RDW Standard Deviation 48.3 fL (36.4-46.3) RDW Coefficient of Variation 16.1 % (11.5-14.5) Immature Granulocyte % (Auto) 1.6 % Immature Granulocyte # (Auto) 0.18 K/uL (0.00-0.02) Anion Gap 10.0 mmol/L (3-11) Est Creatinine Clear Calc Drug Dose 21.7 ml/min Estimated GFR () 19.6 Estimated GFR (Non- 16.9 BUN/Creatinine Ratio 15.1 (10-20) Calcium Level 9.0 mg/dl (8.5-10.1) Phosphorus Level 4.0 mg/dl (2.5-4.9) Magnesium Level 2.4 mg/dl (1.8-2.4) Test 03/22/17 07:47 Bedside Glucose 108 mg/dl (70-99) Allergies Coded Allergies: Iodinated Diagnostic Agents (Verified Allergy, Unknown, oil based, severe headaches, 10/27/16) EVENT OCCURED IN 1971, PT STATES HE HAS HAD 3 DIFFERENT WATER BASED IVP DYES WITH NO ISSUE Medications Current Inpatient Medications Medications (Trade) Dose Ordered Sig/Edward Route Start Time Stop Time Status Last Admin Dose Admin Acetaminophen (Tylenol Tab) 650 mg Q4H PRN PO 03/09/17 15:00 04/08/17 14:59 Al Hydrox/Mg Hydrox/Simethicone (Maalox Max Susp) 15 ml Q4H PRN PO 03/09/17 15:00 04/08/17 14:59 Polyethylene (Miralax Powder Packet) 17 gm DAILY PRN PO 03/09/17 15:00 04/08/17 14:59 03/18/17 08:12 17 GM Ondansetron HCl (Zofran Inj) 4 mg Q6H PRN IV 03/09/17 15:00 04/08/17 14:59 Heparin Sodium (Porcine) (Heparin Sq 5000 Unit/0.5ml) 5,000 unit Q12 SQ 03/09/17 17:00 04/08/17 16:59 03/21/17 20:38 5,000 UNIT Insulin Glargine (Lantus Solostar Pen) 14 units QPM SC 03/09/17 21:00 04/08/17 20:59 03/21/17 20:37 14 UNITS Insulin Aspart (novoLOG ASPART) SLIDING SCALE If C... ACHS SC 03/09/17 16:30 04/08/17 16:29 03/21/17 20:37 4 UNITS Glucose (Glucose 40% Gel) 15-30 GRAMS 15 GRAMS... UD PRN PO 03/09/17 15:00 04/08/17 14:59 Glucose (Glucose Chew Tab) 4-8 Tablets 4 Tabl... UD PRN PO 03/09/17 15:00 04/08/17 14:59 Dextrose (Dextrose 50% 50ML Syringe) 25-50ML OF 50% DW IV FOR... UD PRN IV 03/09/17 15:00 04/08/17 14:59 Glucagon (Glucagon Inj) 1 mg UD PRN SQ 03/09/17 15:00 04/08/17 14:59 Atenolol (Tenormin Tab) 50 mg DAILY PO 03/10/17 08:00 04/09/17 07:59 03/22/17 07:31 50 MG Escitalopram Oxalate (Lexapro Tab) 10 mg DAILY PO 03/10/17 08:00 04/09/17 07:59 03/20/17 08:19 10 MG Simvastatin (Zocor Tab) 20 mg QPM PO 03/09/17 21:00 04/08/17 20:59 03/21/17 20:30 20 MG Terazosin HCl (Hytrin Cap) 5 mg HS PO 03/09/17 21:00 04/08/17 20:59 03/21/17 20:30 5 MG Aspirin (Ecotrin Tab) 81 mg QAM PO 03/10/17 08:00 04/09/17 07:59 03/22/17 07:29 81 MG Calcitriol (Rocaltrol Cap) 0.25 mcg MoWeFr@0800 PO 03/10/17 08:00 04/09/17 07:59 03/22/17 07:31 0.25 MCG Ferrous Sulfate (Feosol Tab) 325 mg BID PO 03/09/17 20:00 04/08/17 19:59 03/22/17 07:27 325 MG Hydralazine HCl (HydrALAZINE INJ) 10 mg Q4H PRN IV 03/09/17 22:00 04/08/17 21:59 03/20/17 17:34 10 MG Amlodipine Besylate (Norvasc Tab) 10 mg HS PO 03/10/17 21:00 04/09/17 07:59 03/21/17 20:31 10 MG Levofloxacin (Consult) 1 ea UD PRN N/A 03/11/17 09:30 04/10/17 09:29 Levofloxacin (Levaquin Tab) 250 mg DAILY@11 PO 03/14/17 11:00 03/24/17 23:59 03/21/17 15:58 250 MG Metronidazole (Flagyl Tab) 500 mg TID PO 03/13/17 14:33 03/24/17 23:59 03/22/17 07:25 500 MG Menthol (Nice Summer) 1 summer PRN PRN PO 03/17/17 09:00 04/16/17 08:59 Senna (Senokot Tab) 17.2 mg DAILY PRN PO 03/17/17 09:30 04/16/17 09:29 03/19/17 20:23 17.2 MG Polyethylene (Miralax Powder Packet) 17 gm DAILY PO 03/19/17 08:00 04/18/17 07:59 03/22/17 07:34 17 GM Senna (Senokot Tab) 17.2 mg QAM PO 03/19/17 08:00 04/18/17 07:59 03/22/17 07:26 17.2 MG Oxycodone HCl (Roxicodone Immediate Rel Tab) 5 mg Q2H PRN PO 03/18/17 22:00 03/27/17 15:29 03/22/17 07:41 5 MG Docusate Sodium (coLACE CAP) 100 mg BID PO 03/19/17 20:00 04/18/17 19:59 03/22/17 07:28 100 MG Lidocaine (Lidoderm Patch 5%) 1 patch QAM TD 03/20/17 08:00 04/19/17 07:59 03/20/17 08:20 1 PATCH Miscellaneous (Remove Lidoderm Patch) 1 ea DAILY@21 N/A 03/20/17 21:00 04/19/17 20:59 03/20/17 20:21 1 EA Hydralazine HCl (Apresoline Tab) 100 mg TID PO 03/20/17 14:00 04/11/17 19:59 03/22/17 07:32 100 MG Lactobacillus Acidophilus (Lactinex Granules Pack) 1 gm TIDM PO 03/20/17 17:00 04/19/17 16:59 03/21/17 17:38 1 GM Sodium Bicarbonate (Sodium Bicarbonate Tab) 650 mg DAILY PO 03/22/17 08:00 04/21/17 07:59 03/22/17 07:34 650 MG Cefazolin Sodium 60 ml @ 100 mls/hr PREOP IV 03/22/17 06:00 03/23/17 05:59 Prednisone (PredniSONE TAB) 20 mg DAILY PO 03/22/17 08:00 04/21/17 07:59 03/22/17 07:27 20 MG Impression (1) Acute kidney injury (2) Kidney disease, chronic, stage IV (GFR 15-29 ml/min) (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 Christy has acute on chronic kidney injury (baseline creatinine 3.0 - 3.3) due to acute inflammation in the setting of BETSY inhibitor therapy. Volume status and electrolyte balance remain acceptable at this time. He is s/p L radical nephrectomy 10/06 due to clear cell carcinoma of the kidney. He has metastasis to the lymph nodes. Mr. Christy was intolerant of Sutent therapy due to hypertension and nephrotic syndrome. He was recently transitioned to Opdivo therapy. Mr. Christy has a h/o diverticulitis and is s/p partial colectomy 2009. He was admitted with abdominal pain and CT findings suggestive of colitis. His inflammation may be related to infection or autoimmune related to Opdivo therapy. Recommendations -- Continue on sodium bicarb 650 milligram p.o. daily On discharge -- as renal function now close to baseline, electrolyte electively sent stable, okay to be discharged with outpatient lab monitoring. Can be discharged this afternoon if AV fistula procedure goes smoothly --Please schedule for follow-up for outpatient nephrology follow-up in 1-2 weeks , lab before that. Schedule for repeat renal panel in 2-3 days after discharge. -- Continue to hold Lisinopril and Furosemide and continue on amlodipine and metoprolol and hydralazine to 100 milligram t.i.d. On discharge
[2017-03-22] MEDS ORDERED: MRLP17X PO (12:19)
[2017-03-22] MEDS ORDERED: SODI650T8 PO (12:19)
[2017-03-22] MEDS ORDERED: OXYC-57 PO (12:19)
[2017-03-22] MEDS ORDERED: LVQ250 PO (12:19)
[2017-03-22] MEDS ORDERED: LCTXP PO (12:19)
[2017-03-22] MEDS ORDERED: SENN-65 PO (12:19)
--- NOTE | 2017-03-22 12:22 | Discharge Instructions ---
Discharge Instructions Date of Service Mar 22, 2017. Admission Reason for Admission: Clear Cell Renal Carcinoma, Abdominal Pain Discharge Discharge Diagnosis / Problem: colitis / JOSHUA/CKD Discharge Goals Goal(s): Decrease discomfort Activity Recommendations Activity Limitations: per Instructions/Follow-up section (as per surgeon instruction regarding the new fistula) . Instructions / Follow-Up Instructions / Follow-Up follow up with oncologist in one week follow up with civil rights attorney in one week follow up with vascular surgeon as directed Current Hospital Diet Patient's current hospital diet: Diabetes Type 2 Diet, Renal Diet, Low Fiber Diet Discharge Diet Recommended Diet: Diabetes Type 2 Diet, Renal Diet Pending Studies Studies pending at discharge: no Laboratory Results Hemoglobin A1c Test 03/09/17 15:10 Range/Units Estimated Average Glucose 157 mg/dl Hemoglobin A1c 7.1 H 4.5-5.6 % Medical Emergencies . Who to Call and When: Medical Emergencies: If at any time you feel your situation is an emergency, please call 911 immediately. . Non-Emergent Contact Non-Emergency issues call your: Primary Care Provider, Wafer Machine Operator, Oncologist Call Non-Emergent contact if: you have a fever, your pain is not controlled, wound has increased drainage, wound has increased redness, wound has increased pain . . "Provider Documentation" section prepared by Ananya Guerrero. . VTE Core Measure Inpt VTE Proph given/why not?: Unfractionated heparin SQ, T.E.Katlyn. Stockings, SCD 's
[2017-03-22] MEDS ORDERED: ATROPINE SULFATE 0.1 MG/ML 5ML SYR IV PRN (12:45)
[2017-03-22] MEDS ORDERED: ONDANSETRON INJ 2 MG/ML 2 ML VIAL IV PRN (12:45)
[2017-03-22] MEDS ORDERED: PHENYLEPHRINE 100MCG/ML 5ML SYR IV PRN (12:45)
[2017-03-22] MEDS ORDERED: HYDROmorphone INJ 2 MG/ML SYR/VIAL IV PRN (12:45)
[2017-03-22] MEDS ORDERED: EpHEDrine SULFATE INJ 50 MG/ML AMP IV PRN (12:45)
--- NOTE | 2017-03-22 13:06 | [facility] Operative Report ---
Operative Report Operative Date Mar 22, 2017. Pre-Operative Diagnosis End stage renal disease Post-Operative Diagnosis same as pre-operative Procedure(s) Performed Left Antecubital Cephalic Arterio-Venous Fistula Creation Surgeon Dr. Darden Development Director Surgeon(s) Dr. Lobito Silver and CHRISTEN Galvez Estimated Blood Loss 5ml Findings At the end of the operation the patient had a palpable radial pulse in his left upper extremity as well as a palpable thrill in his left arm above the elbow. Specimens none per surgeon Complication(s) None Disposition Recovery Room / PACU Indications 61 year old male with hx of L nephrectomy d/t clear cell renal ca and currently with metastasis, admitted with colitis and acute on chronic kidney injury, seen in consultation today for possible AVF creation as it will likely be required in future. Pt himself denies any complaints and states is feeling well presently aside from some mild fatigue. Denies VILLA, fever, chills, chest pain, SOB, abd pain, N/V, rest pain, claudication, other complaints. Pt underwent vein mapping yesterday, which demonstrates usable L AC cephalic V. Description of Procedure The patient was brought to the operating room and positioned on the operating table in a supine position after induction of MAC anesthetic. The left arm was prepped and draped in the usual sterile fashion. Local anesthetic was injected under the skin just below the elbow crease. Approximately 6 cm incision was made with a #10 blade scalpel. Hemostasis was achieved with electrocautery. Sharp dissection was used to isolate a suitable vein which was freed up. Branches were tied with a 2-0 silk suture. Once this was completed and the distal aspect of the vein was cut with an 11 blade and the distal end of that vein was ligated using a 2-0 silk suture. Attention was then turned to the brachial artery which was isolated. Two clamps were placed on the proximal and distal end to achieve control and a small arteriotomy was made using a #11 blade. The arteriotomy was extended to approximately 5 mm using Estes scissors. Then using a Estes scissors the vein was cut to length . Heparin flush was then used to flush the cephalic vein up the arm as well as dilate the vein. The anastomosis was then performed using a 6-0 Prolene suture. At the conclusion of the anastomosis the clamps were released and good flow was noted through the fistula. Of note the patient had a great thrill in his cephalic vein that was palpable. The wound was then irrigated, suctioned and inspected. Adequate hemostasis was achieved and a 3-0 Vicryl suture was used to approximate the skin, then a 4-0 Vicryl suture was used to close the skin in a subcuticular fashion. Dermabond was then applied over the incision. The patient tolerated the procedure well and was then moved out to the recovery room with no complications or issues. At the end of the operation the patient' s exam showed no changes in his motor or sensation to the left hand and the patient had a palpable radial pulse in the left arm as well as a palpable thrill in the left arm. Dr. Darden was present and scrubbed for the entirety of the case. I, Dr. Darden was present and scrubbed for the entire procedure. I attest to the content of the Intraoperative Record and any orders documented therein. Any exceptions are noted below.
--- NOTE | 2017-03-22 13:24 | Anesthesiology Progress Note ---
Anesthesia Post Op Note Date & Time Mar 22, 2017 at 13:24 Vital Signs Pain Intensity: 3 Vital Signs Past 12 Hours Date Time Temp Pulse Resp B/P (MAP) Pulse Ox O2 Delivery O2 Flow Rate FiO2 03/22/17 13:16 137/67 03/22/17 13:14 69 16 03/22/17 13:14 70 16 98 03/22/17 13:11 152/72 03/22/17 13:09 71 16 03/22/17 13:09 70 16 99 03/22/17 13:06 147/71 03/22/17 13:04 73 12 03/22/17 13:04 74 12 143/70 98 03/22/17 13:04 36.3 74 16 143/70 98 Room Air 03/22/17 10:29 Room Air 03/22/17 08:24 36.6 62 18 168/81 (110) 98 Room Air 03/22/17 08:00 Room Air 03/22/17 04:40 36.7 75 18 151/79 (103) 96 Room Air Notes Mental Status: alert / awake / arousable, participated in evaluation Pt Amnestic to Procedure: Yes Nausea / Vomiting: adequately controlled Pain: adequately controlled Airway Patency, RR, SpO2: stable & adequate BP & HR: stable & adequate Hydration State: stable & adequate Anesthetic Complications: no major complications apparent
--- NOTE | 2017-03-22 13:29 | [facility] Post Operative Brief Note ---
Immediate Operative Summary Operative Date Mar 22, 2017. Pre-Operative Diagnosis End stage renal disease Post-Operative Diagnosis same as pre-operative Procedure(s) Performed Left Antecubital Cephalic Arterio-Venous Fistula Creation Surgeon Dr. Darden Igniter Assembler Surgeon(s) Dr. Lobito Silver and CHRISTEN Galvez Estimated Blood Loss 5ml Findings good thrill Specimens none per surgeon Anesthesia MAC Complication(s) None Disposition Recovery Room / PACU
[2017-03-22] MEDS: LEVOFLOXACIN 250 MG TAB PO SCH (14:37)
--- NOTE | 2017-03-22 15:17 | Progress Note ---
Subjective Date of Service: Mar 22, 2017. Subjective Pt evaluation today including: conversation w/ patient, physical exam, chart review, lab review, review of inpatient medication list Problem List Medical Problems: (1) Acute dyspnea Status: Acute (2) Chronic kidney disease Status: Acute (3) Renal cell carcinoma Status: Acute Review of Systems Constitutional: No see HPI, No fever, No chills, No sweats, No weight loss, No weakness, No fatigue, No problem reported Eyes: No see HPI, No worsening of vision, No eye pain, No redness, No discharge , No diplopia, No problem reported ENT: No see HPI, No hearing loss, No unusual epistaxis, No nasal symptoms, No sore throat, No tinnitus, No dental problems, No trouble swallowing, No problem reported Respiratory: No see HPI, No cough, No sputum, No wheezing, No shortness of breath, No dyspnea on exertion, No dyspnea at rest, No hemoptysis, No problem reported Cardiac: No see HPI, No chest pain, No orthopnea, No PND, No edema, No claudication, No palpitations, No problem reported Abdomen: No see HPI, No pain, No nausea, No vomiting, No diarrhea, No constipation, No GI bleeding, No problem reported Musculoskeletal: No see HPI, No joint pain, No muscle pain, No swelling, No calf pain, No problem reported Neurologic: No see HPI, No memory loss, No paralysis, No weakness, No numbness/ tingling, No vertigo, No balance problems, No problem reported Psychiatric: No see HPI, No depression symptoms, No anhedonism, No anxiety, No insomnia, No substance abuse, No problem reported Heme: No see HPI, No abnormal bleeding/bruising, No clotting problems, No swollen lymph nodes, No night sweats, No problem reported Endo: No see HPI, No fatigue, No excessive thirst, No excessive urination, No problem reported Skin: No see HPI, No rash, No itch, No new/changing skin lesions, No color change, No bleeding, No problem reported Medications Current Inpatient Medications Medications (Trade) Dose Ordered Sig/Edward Route Start Time Stop Time Status Last Admin Dose Admin Acetaminophen (Tylenol Tab) 650 mg Q4H PRN PO 03/09/17 15:00 04/08/17 14:59 Al Hydrox/Mg Hydrox/Simethicone (Maalox Max Susp) 15 ml Q4H PRN PO 03/09/17 15:00 04/08/17 14:59 Polyethylene (Miralax Powder Packet) 17 gm DAILY PRN PO 03/09/17 15:00 04/08/17 14:59 03/18/17 08:12 17 GM Ondansetron HCl (Zofran Inj) 4 mg Q6H PRN IV 03/09/17 15:00 04/08/17 14:59 Heparin Sodium (Porcine) (Heparin Sq 5000 Unit/0.5ml) 5,000 unit Q12 SQ 03/09/17 17:00 04/08/17 16:59 03/21/17 20:38 5,000 UNIT Insulin Glargine (Lantus Solostar Pen) 14 units QPM SC 03/09/17 21:00 04/08/17 20:59 03/21/17 20:37 14 UNITS Insulin Aspart (novoLOG ASPART) SLIDING SCALE If C... ACHS SC 03/09/17 16:30 04/08/17 16:29 03/21/17 20:37 4 UNITS Glucose (Glucose 40% Gel) 15-30 GRAMS 15 GRAMS... UD PRN PO 03/09/17 15:00 04/08/17 14:59 Glucose (Glucose Chew Tab) 4-8 Tablets 4 Tabl... UD PRN PO 03/09/17 15:00 04/08/17 14:59 Dextrose (Dextrose 50% 50ML Syringe) 25-50ML OF 50% DW IV FOR... UD PRN IV 03/09/17 15:00 04/08/17 14:59 Glucagon (Glucagon Inj) 1 mg UD PRN SQ 03/09/17 15:00 04/08/17 14:59 Atenolol (Tenormin Tab) 50 mg DAILY PO 03/10/17 08:00 04/09/17 07:59 03/22/17 07:31 50 MG Escitalopram Oxalate (Lexapro Tab) 10 mg DAILY PO 03/10/17 08:00 04/09/17 07:59 03/20/17 08:19 10 MG Simvastatin (Zocor Tab) 20 mg QPM PO 03/09/17 21:00 04/08/17 20:59 03/21/17 20:30 20 MG Terazosin HCl (Hytrin Cap) 5 mg HS PO 03/09/17 21:00 04/08/17 20:59 03/21/17 20:30 5 MG Aspirin (Ecotrin Tab) 81 mg QAM PO 03/10/17 08:00 04/09/17 07:59 03/22/17 07:29 81 MG Calcitriol (Rocaltrol Cap) 0.25 mcg MoWeFr@0800 PO 03/10/17 08:00 04/09/17 07:59 03/22/17 07:31 0.25 MCG Ferrous Sulfate (Feosol Tab) 325 mg BID PO 03/09/17 20:00 04/08/17 19:59 03/22/17 07:27 325 MG Hydralazine HCl (HydrALAZINE INJ) 10 mg Q4H PRN IV 03/09/17 22:00 04/08/17 21:59 03/20/17 17:34 10 MG Amlodipine Besylate (Norvasc Tab) 10 mg HS PO 03/10/17 21:00 04/09/17 07:59 03/21/17 20:31 10 MG Levofloxacin (Consult) 1 ea UD PRN N/A 03/11/17 09:30 04/10/17 09:29 Levofloxacin (Levaquin Tab) 250 mg DAILY@11 PO 03/14/17 11:00 03/24/17 23:59 03/22/17 14:37 250 MG Metronidazole (Flagyl Tab) 500 mg TID PO 03/13/17 14:33 03/24/17 23:59 03/22/17 14:41 500 MG Menthol (Nice Summer) 1 summer PRN PRN PO 03/17/17 09:00 04/16/17 08:59 Senna (Senokot Tab) 17.2 mg DAILY PRN PO 03/17/17 09:30 04/16/17 09:29 03/19/17 20:23 17.2 MG Polyethylene (Miralax Powder Packet) 17 gm DAILY PO 03/19/17 08:00 04/18/17 07:59 03/22/17 07:34 17 GM Senna (Senokot Tab) 17.2 mg QAM PO 03/19/17 08:00 04/18/17 07:59 03/22/17 07:26 17.2 MG Oxycodone HCl (Roxicodone Immediate Rel Tab) 5 mg Q2H PRN PO 03/18/17 22:00 03/27/17 15:29 03/22/17 14:37 5 MG Docusate Sodium (coLACE CAP) 100 mg BID PO 03/19/17 20:00 04/18/17 19:59 03/22/17 07:28 100 MG Lidocaine (Lidoderm Patch 5%) 1 patch QAM TD 03/20/17 08:00 04/19/17 07:59 03/20/17 08:20 1 PATCH Miscellaneous (Remove Lidoderm Patch) 1 ea DAILY@21 N/A 03/20/17 21:00 04/19/17 20:59 03/20/17 20:21 1 EA Hydralazine HCl (Apresoline Tab) 100 mg TID PO 03/20/17 14:00 04/11/17 19:59 03/22/17 14:40 100 MG Lactobacillus Acidophilus (Lactinex Granules Pack) 1 gm TIDM PO 03/20/17 17:00 04/19/17 16:59 03/22/17 14:40 1 GM Sodium Bicarbonate (Sodium Bicarbonate Tab) 650 mg DAILY PO 03/22/17 08:00 04/21/17 07:59 03/22/17 07:34 650 MG Prednisone (PredniSONE TAB) 20 mg DAILY PO 03/22/17 08:00 04/21/17 07:59 03/22/17 07:27 20 MG Hydromorphone HCl (Dilaudid Inj) 0.5 mg Q5M PRN IV 03/22/17 12:45 03/22/17 18:00 Ondansetron HCl (Zofran Inj) 4 mg ONE PRN IV 03/22/17 12:45 03/22/17 18:00 Ephedrine Sulfate (EpHEDrine SULFATE INJ) 5 mg Q5M PRN IV 03/22/17 12:45 03/22/17 18:00 Atropine Sulfate (Atropine Sulfate 0.1MG/Ml Inj) 0.5 mg Q1M PRN IV 03/22/17 12:45 03/22/17 18:00 Phenylephrine HCl (Antoine-Synephrine 500MCG/5ML Syr) 100 mcg Q5M PRN IV 03/22/17 12:45 03/22/17 18:00 Objective Vital Signs Date Time Temp Pulse Resp B/P (MAP) Pulse Ox O2 Delivery O2 Flow Rate FiO2 03/22/17 14:07 36.7 70 16 165/75 (105) 96 Room Air 03/22/17 13:43 64 14 95 03/22/17 13:43 64 14 03/22/17 13:41 131/71 03/22/17 13:38 67 16 95 03/22/17 13:38 68 16 03/22/17 13:36 150/69 03/22/17 13:33 69 16 03/22/17 13:33 68 16 98 03/22/17 13:31 127/68 03/22/17 13:29 36.5 03/22/17 13:28 69 16 97 03/22/17 13:28 69 16 03/22/17 13:27 67 16 98 03/22/17 13:27 67 16 03/22/17 13:26 147/69 03/22/17 13:22 74 12 97 03/22/17 13:22 75 12 03/22/17 13:21 143/71 03/22/17 13:17 70 16 98 03/22/17 13:17 68 16 03/22/17 13:16 137/67 03/22/17 13:14 69 16 03/22/17 13:14 70 16 98 03/22/17 13:11 152/72 03/22/17 13:09 71 16 03/22/17 13:09 70 16 99 03/22/17 13:06 147/71 03/22/17 13:04 73 12 03/22/17 13:04 74 12 143/70 98 03/22/17 13:04 36.3 74 16 143/70 98 Room Air 03/22/17 10:29 Room Air 03/22/17 08:24 36.6 62 18 168/81 (110) 98 Room Air 03/22/17 08:00 Room Air 03/22/17 04:40 36.7 75 18 151/79 (103) 96 Room Air 03/22/17 00:27 36.7 76 18 161/74 (103) 96 Room Air 03/22/17 00:02 Room Air 03/21/17 20:28 36.8 73 18 142/70 (94) 97 Room Air 03/21/17 16:00 Room Air Physical Exam General Appearance: WD/WN, no apparent distress Eyes: normal inspection, EOMI ENT: normal ENT inspection, hearing grossly normal Neck: supple Respiratory/Chest: chest non-tender, lungs clear, normal breath sounds, no respiratory distress, no accessory muscle use Cardiovascular: regular rate, rhythm, no edema, no gallop, no JVD, no murmur Abdomen: normal bowel sounds, non tender, soft, no organomegaly, no pulsatile mass Extremities: normal range of motion, non-tender, normal inspection, no pedal edema Neurologic/Psychiatric: physical damage appraiser II-XII nml as tested, no motor/sensory deficits, alert, normal mood/affect, oriented x 3 Skin: normal color, warm/dry, no rash Laboratory Results Last 24 Hours Test 03/21/17 16:41 03/21/17 20:04 03/22/17 06:06 03/22/17 07:47 Bedside Glucose 212 mg/dl 222 mg/dl 108 mg/dl White Blood Count 11.36 K/uL Red Blood Count 3.90 M/uL Hemoglobin 10.2 g/dL Hematocrit 32.0 % Mean Corpuscular Volume 82.1 fL Mean Corpuscular Hemoglobin 26.2 pg Mean Corpuscular Hemoglobin Concent 31.9 g/dl Platelet Count 204 K/uL Mean Platelet Volume 10.1 fL Neutrophils (%) (Auto) 71.2 % Lymphocytes (%) (Auto) 16.9 % Monocytes (%) (Auto) 9.8 % Eosinophils (%) (Auto) 0.4 % Basophils (%) (Auto) 0.1 % Neutrophils # (Auto) 8.10 K/uL Lymphocytes # (Auto) 1.92 K/uL Monocytes # (Auto) 1.11 K/uL Eosinophils # (Auto) 0.04 K/uL Basophils # (Auto) 0.01 K/uL RDW Standard Deviation 48.3 fL RDW Coefficient of Variation 16.1 % Immature Granulocyte % (Auto) 1.6 % Immature Granulocyte # (Auto) 0.18 K/uL Sodium Level 142 mmol/L Potassium Level 3.6 mmol/L Chloride Level 111 mmol/L Carbon Dioxide Level 21 mmol/L Anion Gap 10.0 mmol/L Blood Urea Nitrogen 54 mg/dl Creatinine 3.60 mg/dl Est Creatinine Clear Calc Drug Dose 21.7 ml/min Estimated GFR () 19.6 Estimated GFR (Non- 16.9 BUN/Creatinine Ratio 15.1 Random Glucose 164 mg/dl Calcium Level 9.0 mg/dl Phosphorus Level 4.0 mg/dl Magnesium Level 2.4 mg/dl Test 03/22/17 13:32 03/22/17 14:02 Bedside Glucose 175 mg/dl 170 mg/dl Assessment and Plan 61 years old man with Hx of CKD stage 3-4, renal cell carcinoma S/P L radical nephrectomy currently on nivolumab presented with abdominal pain and diverticulitis Diverticulitis, continued to have abdominal pain but the area improving Has Hx of perforated viscus in the past he attributed it to minor trauma to the abdomen (his dog jumped on him) which is unlikely continue Levofloxacin/flagyl, total of 14 days added lactinex continue supportive care possible side effect to nivolumab JOSHUA/CKD, 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
[2017-03-22] MEDS: AMLODIPINE BESYLATE 5 MG TAB PO SCH (20:29)
[2017-03-22] MEDS: INSULIN GLARGINE SOLOSTAR 100 UNITS/ML 3 ML PEN SC SCH (20:30)
[2017-03-22] MEDS: SIMVASTATIN 20 MG TAB PO SCH (20:32)
[2017-03-23] MEDS: OXYCODONE HCL IR 5 MG TAB (IMMEDIATE RELEASE) PO PRN ×3 (03:00→12:40)
[2017-03-23 04:38] VITALS: BP 134/68; PULSE 79; TEMP 36.9; O2SAT 97
[2017-03-23] MEDS: DOCUSATE SODIUM 100 MG CAP PO SCH (07:45)
[2017-03-23] MEDS: ASPIRIN 81 MG ECTAB PO SCH (07:45)
[2017-03-23 07:46] LABS: BASO % 0.1 %; BASO ABS # 0.01 K/uL (0-0.2); COMPLETE YES; EOS % 0.5 %; IG% 1.4 %; LYMPH % 17.9 %; LYMPH ABS # 2.12 K/uL (1.2-3.4); MEAN CELL VOLUME 82.7 fL (80-100); MEAN CORPUSCULAR HEMOGLOBIN 28.4 pg (25-34); MEAN CORPUSCULAR HGB CONC 34.4 g/dl (32-36); MEAN PLATELET VOLUME 9.7 fL (7.4-10.4); MONO % 7.3 %; NEUT % 72.8 %; PLATELET COUNT 180 K/uL (130-400); RED BLOOD COUNT 3.87 M/uL (4.7-6.1); WHITE BLOOD COUNT 11.84 K/uL (4.8-10.8)
[2017-03-23] MEDS: FERROUS SULFATE 325 MG TAB PO SCH (07:46)
[2017-03-23] MEDS: METRONIDAZOLE 500 MG TAB PO SCH ×2 (07:46→12:39)
[2017-03-23] MEDS: SENNA 8.6 MG TAB PO SCH (07:47)
[2017-03-23] MEDS: SODIUM BICARBONATE 650 MG TAB PO SCH (07:47)
[2017-03-23] MEDS: POLYETHYLENE (MIRALAX) 17 GM PACK PO SCH (07:48)
[2017-03-23] MEDS: LACTOBACILLUS ACIDOPHILUS 1 GM PACK PO SCH ×2 (07:48→12:40)
[2017-03-23] MEDS: ESCITALOPRAM OXALATE 10 MG TAB PO SCH (07:49)
[2017-03-23] MEDS: LIDODERM (LIDOCAINE) PATCH 5% TD SCH (07:49)
[2017-03-23] MEDS: HEPARIN SOD 5000 UNIT/0.5 ML CARP SQ SCH (07:51)
[2017-03-23 08:07] VITALS: BP 151/76; PULSE 66; TEMP 36.8; O2SAT 96
[2017-03-23 08:16] LABS: BUN/CREATININE RATIO 15.1 (10-20); CREATININE 3.6 mg/dl (0.60-1.40); MAGNESIUM 2.5 mg/dl (1.8-2.4); POTASSIUM 3.9 mmol/L (3.5-5.1)
[2017-03-23 08:19] LABS: ALB/GLOB RATIO 0.8 (0.9-2)
[2017-03-23] MEDS: INSULIN ASPART 100 UNITS/ML 3 ML PEN SC SCH ×2 (08:46→12:39)
[2017-03-23 10:48] VITALS: BP 132/73; PULSE 76; TEMP 36.7; O2SAT 96
[2017-03-23] MEDS ORDERED: METR500T PO (11:15)
--- NOTE | 2017-03-23 11:35 | Nephrology Progress Note ---
Nephrology Progress Note Date of Service Mar 23, 2017. Chief Complaint Follow-up for acute kidney injury with history of advanced CKD. Roland Causey was seen and examined in his room this morning. He had left brachiocephalic AV fistula placed yesterday, currently has some swelling and tenderness in his left upper extremity around the fistula area as well as in his hand. Fistula has pretty good thrill. renal function remained stable, creatinine 0.6, electrolytes acceptable. Blood pressure seems to have improved and most of the blood pressure since yesterday has been within goal. Review of Systems A complete review of systems was performed. Pertinent positives are noted above. All other systems are negative. Vital Signs Last 8 Hrs Date Time Temp Pulse Resp B/P (MAP) Pulse Ox O2 Delivery O2 Flow Rate FiO2 03/23/17 08:07 36.8 66 18 151/76 (101) 96 Room Air 03/23/17 04:38 36.9 79 20 134/68 (90) 97 Room Air Last Recorded Weight Weight (Kilograms): 82.200 Physical Exam GENERAL: Middle-aged male, AAA x 3, pleasant, healthy-appearing, not in any distress. NECK: Supple, no JVD. RESPIRATORY: Normal breathing efforts, no accessory muscle use, clear to auscultation bilaterally, no wheezes or rales. CARDIOVASCULAR: S1, S2 normal, rate rhythm regular. EXTREMITY: No lower extremity edema. left brachiocephalic AV fistula with thrill, some erythema and tenderness around the incision site and mild swelling in of left hand. NEURO: speech fluent. PSYCHIATRY: Normal mood and judgment Family History Cervical cancer Diabetes mellitus Heart disease Hypertension Myocardial infarction Pancreatic cancer Prostate cancer Negative for CKD/ESRD Social History Smokeless Tobacco Use: No Alcohol Use: none Drug Use: none Marital Status: single Housing Status: lives alone Occupation: retired Single, retired. Formerly worked for [employer]. Never a smoker. Laboratory Results Past 24 Hours 03/23/17 07:28 Red Blood Count 3.87, Mean Corpuscular Volume 82.7, Mean Corpuscular Hemoglobin 28.4, Mean Corpuscular Hemoglobin Concent 34.4, Mean Platelet Volume 9.7, Neutrophils (%) (Auto) 72.8, Lymphocytes (%) (Auto) 17.9, Monocytes (%) (Auto) 7.3, Eosinophils (%) (Auto) 0.5, Basophils (%) (Auto) 0.1, Neutrophils # (Auto) 8.62, Lymphocytes # (Auto) 2.12, Monocytes # (Auto) 0.86, Eosinophils # (Auto) 0.06, Basophils # (Auto) 0.01 03/23/17 07:28 Test 03/22/17 13:32 03/22/17 14:02 03/22/17 16:34 03/22/17 20:26 Bedside Glucose 175 mg/dl (70-99) 170 mg/dl (70-99) 234 mg/dl (70-99) 145 mg/dl (70-99) Test 03/23/17 07:28 03/23/17 08:03 White Blood Count 11.84 K/uL (4.8-10.8) Red Blood Count 3.87 M/uL (4.7-6.1) Hemoglobin 11.0 g/dL (14.0-18.0) Hematocrit 32.0 % (42-52) Mean Corpuscular Volume 82.7 fL (80-100) Mean Corpuscular Hemoglobin 28.4 pg (25-34) Mean Corpuscular Hemoglobin Concent 34.4 g/dl (32-36) Platelet Count 180 K/uL (130-400) Mean Platelet Volume 9.7 fL (7.4-10.4) Neutrophils (%) (Auto) 72.8 % Lymphocytes (%) (Auto) 17.9 % Monocytes (%) (Auto) 7.3 % Eosinophils (%) (Auto) 0.5 % Basophils (%) (Auto) 0.1 % Neutrophils # (Auto) 8.62 K/uL (1.4-6.5) Lymphocytes # (Auto) 2.12 K/uL (1.2-3.4) Monocytes # (Auto) 0.86 K/uL (0.11-0.59) Eosinophils # (Auto) 0.06 K/uL (0-0.5) Basophils # (Auto) 0.01 K/uL (0-0.2) RDW Standard Deviation 49.2 fL (36.4-46.3) RDW Coefficient of Variation 16.3 % (11.5-14.5) Immature Granulocyte % (Auto) 1.4 % Immature Granulocyte # (Auto) 0.17 K/uL (0.00-0.02) Anion Gap 8.0 mmol/L (3-11) Est Creatinine Clear Calc Drug Dose 21.7 ml/min Estimated GFR () 19.6 Estimated GFR (Non- 16.9 BUN/Creatinine Ratio 15.1 (10-20) Calcium Level 9.0 mg/dl (8.5-10.1) Magnesium Level 2.5 mg/dl (1.8-2.4) Total Bilirubin 0.2 mg/dl (0.2-1) Aspartate Amino Transf (AST/SGOT) 8 U/L (15-37) Alanine Aminotransferase (ALT/SGPT) 16 U/L (12-78) Alkaline Phosphatase 38 U/L (45-117) Total Protein 5.2 gm/dl (6.4-8.2) Albumin 2.3 gm/dl (3.4-5.0) Globulin 2.9 gm/dl (2.5-4.0) Albumin/Globulin Ratio 0.8 (0.9-2) Bedside Glucose 115 mg/dl (70-99) Allergies Coded Allergies: Iodinated Diagnostic Agents (Verified Allergy, Unknown, oil based, severe headaches, 10/27/16) EVENT OCCURED IN 1971, PT STATES HE HAS HAD 3 DIFFERENT WATER BASED IVP DYES WITH NO ISSUE Medications Current Inpatient Medications Medications (Trade) Dose Ordered Sig/Edward Route Start Time Stop Time Status Last Admin Dose Admin Acetaminophen (Tylenol Tab) 650 mg Q4H PRN PO 03/09/17 15:00 04/08/17 14:59 Al Hydrox/Mg Hydrox/Simethicone (Maalox Max Susp) 15 ml Q4H PRN PO 03/09/17 15:00 04/08/17 14:59 Polyethylene (Miralax Powder Packet) 17 gm DAILY PRN PO 03/09/17 15:00 04/08/17 14:59 03/18/17 08:12 17 GM Ondansetron HCl (Zofran Inj) 4 mg Q6H PRN IV 03/09/17 15:00 04/08/17 14:59 Heparin Sodium (Porcine) (Heparin Sq 5000 Unit/0.5ml) 5,000 unit Q12 SQ 03/09/17 17:00 04/08/17 16:59 03/23/17 07:51 5,000 UNIT Insulin Glargine (Lantus Solostar Pen) 14 units QPM SC 03/09/17 21:00 04/08/17 20:59 03/22/17 20:30 14 UNITS Insulin Aspart (novoLOG ASPART) SLIDING SCALE If C... ACHS SC 03/09/17 16:30 04/08/17 16:29 03/22/17 18:01 6 UNITS Glucose (Glucose 40% Gel) 15-30 GRAMS 15 GRAMS... UD PRN PO 03/09/17 15:00 04/08/17 14:59 Glucose (Glucose Chew Tab) 4-8 Tablets 4 Tabl... UD PRN PO 03/09/17 15:00 04/08/17 14:59 Dextrose (Dextrose 50% 50ML Syringe) 25-50ML OF 50% DW IV FOR... UD PRN IV 03/09/17 15:00 04/08/17 14:59 Glucagon (Glucagon Inj) 1 mg UD PRN SQ 03/09/17 15:00 04/08/17 14:59 Atenolol (Tenormin Tab) 50 mg DAILY PO 03/10/17 08:00 04/09/17 07:59 03/23/17 07:45 50 MG Escitalopram Oxalate (Lexapro Tab) 10 mg DAILY PO 03/10/17 08:00 04/09/17 07:59 03/20/17 08:19 10 MG Simvastatin (Zocor Tab) 20 mg QPM PO 03/09/17 21:00 04/08/17 20:59 03/22/17 20:32 20 MG Terazosin HCl (Hytrin Cap) 5 mg HS PO 03/09/17 21:00 04/08/17 20:59 03/22/17 20:30 5 MG Aspirin (Ecotrin Tab) 81 mg QAM PO 03/10/17 08:00 04/09/17 07:59 03/23/17 07:45 81 MG Calcitriol (Rocaltrol Cap) 0.25 mcg MoWeFr@0800 PO 03/10/17 08:00 04/09/17 07:59 03/22/17 07:31 0.25 MCG Ferrous Sulfate (Feosol Tab) 325 mg BID PO 03/09/17 20:00 04/08/17 19:59 03/23/17 07:46 325 MG Hydralazine HCl (HydrALAZINE INJ) 10 mg Q4H PRN IV 03/09/17 22:00 04/08/17 21:59 03/20/17 17:34 10 MG Amlodipine Besylate (Norvasc Tab) 10 mg HS PO 03/10/17 21:00 04/09/17 07:59 03/22/17 20:29 10 MG Levofloxacin (Consult) 1 ea UD PRN N/A 03/11/17 09:30 04/10/17 09:29 Levofloxacin (Levaquin Tab) 250 mg DAILY@11 PO 03/14/17 11:00 03/24/17 23:59 03/22/17 14:37 250 MG Metronidazole (Flagyl Tab) 500 mg TID PO 03/13/17 14:33 03/24/17 23:59 03/23/17 07:46 500 MG Menthol (Nice Summer) 1 summer PRN PRN PO 03/17/17 09:00 04/16/17 08:59 Senna (Senokot Tab) 17.2 mg DAILY PRN PO 03/17/17 09:30 04/16/17 09:29 03/19/17 20:23 17.2 MG Polyethylene (Miralax Powder Packet) 17 gm DAILY PO 03/19/17 08:00 04/18/17 07:59 03/23/17 07:48 17 GM Senna (Senokot Tab) 17.2 mg QAM PO 03/19/17 08:00 04/18/17 07:59 03/23/17 07:47 17.2 MG Oxycodone HCl (Roxicodone Immediate Rel Tab) 5 mg Q2H PRN PO 03/18/17 22:00 03/27/17 15:29 03/23/17 07:43 5 MG Docusate Sodium (coLACE CAP) 100 mg BID PO 03/19/17 20:00 04/18/17 19:59 03/23/17 07:45 100 MG Lidocaine (Lidoderm Patch 5%) 1 patch QAM TD 03/20/17 08:00 04/19/17 07:59 03/20/17 08:20 1 PATCH Miscellaneous (Remove Lidoderm Patch) 1 ea DAILY@21 N/A 03/20/17 21:00 04/19/17 20:59 03/20/17 20:21 1 EA Hydralazine HCl (Apresoline Tab) 100 mg TID PO 03/20/17 14:00 04/11/17 19:59 03/23/17 07:45 100 MG Lactobacillus Acidophilus (Lactinex Granules Pack) 1 gm TIDM PO 03/20/17 17:00 04/19/17 16:59 03/23/17 07:48 1 GM Sodium Bicarbonate (Sodium Bicarbonate Tab) 650 mg DAILY PO 03/22/17 08:00 04/21/17 07:59 03/23/17 07:47 650 MG Prednisone (PredniSONE TAB) 20 mg DAILY PO 03/22/17 08:00 04/21/17 07:59 03/23/17 07:46 20 MG Impression (1) Acute kidney injury (2) Kidney disease, chronic, stage IV (GFR 15-29 ml/min) (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 Christy has acute on chronic kidney injury (baseline creatinine 3.0 - 3.3) due to acute inflammation in the setting of BETSY inhibitor therapy. Volume status and electrolyte balance remain acceptable at this time. He is s/p L radical nephrectomy 10/06 due to clear cell carcinoma of the kidney. He has metastasis to the lymph nodes. Mr. Christy was intolerant of Sutent therapy due to hypertension and nephrotic syndrome. He was recently transitioned to Opdivo therapy. Mr. Christy has a h/o diverticulitis and is s/p partial colectomy 2009. He was admitted with abdominal pain and CT findings suggestive of colitis. His inflammation may be related to infection or autoimmune related to Opdivo therapy. Recommendations -- Continue on sodium bicarb 650 milligram p.o. daily On discharge -- as renal function now close to baseline, electrolyte electively sent stable, okay to be discharged with outpatient lab monitoring. Can be discharged this afternoon, if okay with vascular surgery, waiting to be seen by vascular surgery for swelling in left upper extremity --Please schedule for follow-up for outpatient nephrology follow-up in 1-2 weeks , lab before that. Schedule for repeat renal panel in 2-3 days after discharge. -- Continue to hold Lisinopril and Furosemide and continue on amlodipine and metoprolol and hydralazine to 100 milligram t.i.d. On discharge
[2017-03-23] MEDS: LEVOFLOXACIN 250 MG TAB PO SCH (12:39)
[2017-03-23 13:09] VITALS: BP 132/73; PULSE 76; TEMP 36.7; O2SAT 96
--- NOTE | 2017-03-23 13:10 | Anesthesiology Progress Note ---
Anesthesia Post Op Note Date & Time Mar 23, 2017 at 13:09 Vital Signs Pain Intensity: 3.0 Vital Signs Past 12 Hours Date Time Temp Pulse Resp B/P (MAP) Pulse Ox O2 Delivery O2 Flow Rate FiO2 03/23/17 10:48 36.7 76 18 132/73 (92) 96 Room Air 03/23/17 09:26 Room Air 03/23/17 08:07 36.8 66 18 151/76 (101) 96 Room Air 03/23/17 08:00 Room Air 03/23/17 04:38 36.9 79 20 134/68 (90) 97 Room Air Notes Mental Status: alert / awake / arousable, participated in evaluation Pt Amnestic to Procedure: Yes Nausea / Vomiting: adequately controlled Pain: adequately controlled Airway Patency, RR, SpO2: stable & adequate BP & HR: stable & adequate Hydration State: stable & adequate Anesthetic Complications: no major complications apparent
[2017-03-23] MEDS ORDERED: HYDR100T12 PO (14:30)
[2017-03-23] MEDS ORDERED: PRD20 PO (14:30)
--- NOTE | 2017-03-23 19:02 | Discharge Summary ---
Discharge Summary Date of Service Mar 23, 2017. Discharge Summary Admission Date: Mar 09, 2017 at 14:00 Discharge Date: Mar 23, 2017 Discharge Disposition: Home Principal Diagnosis: diverticulitis / joshua/ckd Problems/Secondary Diagnoses: Chronic kidney disease stage 3-4 Acute kidney injury and chronic kidney disease Status post left nephrectomy for renal cell carcinoma Small mass/cyst on right kidney Pelvic adenopathy Hypertension Immunizations: Have You Had Influenza Vaccine: Yes Influenza Vaccine Date: May 14, 2015 History of Tetanus Vaccine?: Yes Tetanus Immunization Date: Sep 14, 2011 History of Pneumococcal: Yes Pneumococcal Date: Sep 14, 2013 History of Hepatitis B Vaccine: No Medication Reconciliation New Medications: Hydralazine Hcl (Apresoline) 100 Mg Tab 100 MG PO TID for 30 Days, #90 TAB Metronidazole (Flagyl) 500 Mg Tab 500 MG PO BID for 3 Days, #6 TAB start on 03/24 Oxycodone/Acetaminophen 5MG/325MG (Percocet 5MG/325MG) Tab 1 TABLET PO Q6H PRN for Pain for 7 Days, #14 TAB Senna/Docusate Sod (Senokot S) 1 Tab Tab 1 TAB PO DAILY for 30 Days, #30 TAB Lactobacillus Acidophilus (Lactinex Granules) 1 Gm Pack 1 GM PO TIDM for 10 Days, #30 TAB Levofloxacin (Levofloxacin) 250 Mg Tab 250 MG PO DAILY@11 for 3 Days, #3 TAB start 03/23 Polyethylene (Miralax) 17 Gm Pow 17 GM PO DAILY PRN for Constipation for 10 Days, #10 PKT Prednisone (Prednisone) 20 Mg Tab 20 MG PO DAILY for 30 Days, #30 TAB Sodium Bicarbonate (Sodium Bicarbonate) 650 Mg Tab 650 MG PO DAILY for 30 Days, #30 TAB Continued Medications: Amlodipine (Norvasc) 10 Mg Tab 10 MG PO DAILY, TAB Atenolol (Tenormin) 50 Mg Tab 50 MG PO DAILY, TAB Calcitriol (Calcitriol) 0.25 Mcg Cap 0.25 MCG PO 3XWK Escitalopram (Lexapro) 10 Mg Tab 10 MG PO DAILY, TAB Ferrous Sulfate (Ferrous Sulfate) 325 Mg Tab 325 MG PO BID Insulin Glargine (Lantus) Vial 14 SC QPM, VIAL Insulin Lispro (Human) (Humalog Kwikpen) 100 Unit/Ml Inj 10-20 SC AFTER DINNER Nivolumab (Opdivo) 40 Mg/4 Ml Inj 40 MG IV Q14D Simvastatin (Zocor) 20 Mg Tab 20 MG PO QPM, TAB Terazosin (Hytrin) 5 Mg Cap 5 MG PO HS, CAP [Aspirin] () 81 MG PO DAILY Discontinued Medications: Docusate Sodium (Colace) 100 Mg Cap 1 CAP PO BID Furosemide (Lasix) 40 Mg Tab 40 MG PO DAILY, TAB Lisinopril (Prinivil) 40 Mg Tab 40 MG PO QAM, TAB [Tylenol #4] () 1 TAB PO q4-6 hours PRN for Pain Referrals At Discharge Follow up Referrals: Lead Setter Referral - Within 1-2 Weeks with Pauline Norwood MD Oncology/Hematology Referral - Within 1-2 Weeks with Rasta Douglas MD Discharge Exam Review of Systems: Constitutional: No fever, No chills, No sweats, No weight loss, No weakness , No fatigue, No problem reported Eyes: No worsening of vision, No eye pain, No redness, No discharge, No diplopia, No problem reported ENT: No hearing loss, No unusual epistaxis, No nasal symptoms, No sore throat, No tinnitus, No dental problems, No trouble swallowing, No problem reported Respiratory: No cough, No sputum, No wheezing, No shortness of breath, No dyspnea on exertion, No dyspnea at rest, No hemoptysis, No problem reported Cardiovascular: No chest pain, No orthopnea, No PND, No edema, No claudication, No palpitations, No problem reported Abdomen: No pain, No nausea, No vomiting, No diarrhea, No constipation, No GI bleeding, No problem reported Musculoskeletal: No joint pain, No muscle pain, No swelling, No calf pain, No problem reported Neurologic: No memory loss, No paralysis, No weakness, No numbness/tingling , No vertigo, No balance problems, No problem reported Psychiatric: No depression symptoms, No anhedonism, No anxiety, No insomnia , No substance abuse, No problem reported Endocrine: No fatigue, No excessive thirst, No excessive urination, No problem reported Hematologic / Lymphatic: No abnormal bleeding/bruising, No clotting problems , No swollen lymph nodes, No night sweats, No problem reported Integumentary: No rash, No itch, No new/changing skin lesions, No color change, No bleeding, No problem reported Physical Exam: General Appearance: WD/WN, no apparent distress Eyes: normal inspection, EOMI ENT: normal ENT inspection, hearing grossly normal Neck: supple Respiratory/Chest: chest non-tender, lungs clear, normal breath sounds, no respiratory distress, no accessory muscle use Cardiovascular: regular rate, rhythm, no edema, no gallop, no JVD, no murmur , normal peripheral pulses Abdomen / GI: normal bowel sounds, non tender, soft, no organomegaly, no pulsatile mass, occult blood negative Extremities: normal inspection, no calf tenderness, normal capillary refill , no pedal edema Neurologic/Psychiatric: pattern finisher II-XII nml as tested, no motor/sensory deficits , alert, normal mood/affect, normal reflexes, oriented x 3 Skin: normal color, warm/dry, no rash Hospital Course 61 years old man with Hx of CKD stage 3-4, renal cell carcinoma S/P L radical nephrectomy currently on nivolumab presented with abdominal pain and diverticulitis for his Diverticulitis, he was started on levofloxacin and Flagyl IV, switched to by mouth upon discharge, also giving Lactinex for C. difficile prophylaxis Has Hx of perforated viscus in the past he attributed it to minor trauma to the abdomen (his dog jumped on him) which is unlikely Seen by oncologist, who suggested the possibility of immune mediated colitis versus diverticulitis. He was started on prednisone which was continued ON discharge 20 mg daily until he sees his oncologist as an outpatient. 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 Status post Left Antecubital Cephalic Arterio-Venous Fistula Creation Hydralazine was added for blood pressure renal cell carcinoma S/P L radical nephrectomy LN mets CT scan showed potential enlargement of lymph nodes, and right renal mass oncologist will follow as an Patient was stable today for discharge home and follow-up with timber framer helper, oncologist and primary care physician He will continue 14 days of levofloxacin and Flagyl Total Time Spent: Greater than 30 minutes This includes examination of the patient, discharge planning, medication reconciliation, and communication with other providers. Discharge Instructions Please refer to the electronic Patient Visit Report (Discharge Instructions) for additional information.
--- NOTE | 2017-03-28 10:22 | EDITING REQUIRED CODING QUERY ---
CHRONIC KIDNEY DISEASE To promote full compliance with coding requirements relating to patient care, physician participation is requested in all cases of hydroelectric component machinist uncertainty. Please assist us with the question(s) below: Coding Question(s): The record reflects the following clinical findings: Attending progress notes and nephrology consult progress notes both indicate CKD stage IV. Operative report dictated by Dr. Darden indicates ESRD. Please review and update stage at discharge. Thank you. Please specify the known or suspected type by placing an "X" within the parenthesis (x). If other, please document type. Please document Staging if known: ( ) Stage I >90 Kidney damage with normal or elevated GFR. ( ) Stage II 60-89 Kidney damage with mildly decreased kidney function ( ) Stage III 30-59 Moderately decreased kidney function ( ) Stage IV 15-29 Severely decreased kidney function ( ) Stage V <15 Renal failure (or dialysis) ( x ) End Stage ( ) Unknown Thank you Nicolle Earl
[2017-04-28] MEDS ORDERED: TAMS0.4C38 PO (06:56)
[2017-04-28] MEDS ORDERED: INSDGI SC (06:56)
[2017-04-28] MEDS ORDERED: ASPI81TA28 PO (06:56)
[2017-04-28] MEDS ORDERED: PRED20TA PO (06:56)
[2017-04-28] MEDS ORDERED: HYDR100T12 PO (06:57)
[2017-04-28] MEDS ORDERED: METH5TAB2 PO (07:00)
[2017-04-28] MEDS ORDERED: FENT75DI2 TOP (07:00)
[2017-04-28] MEDS ORDERED: OXYC-164 PO (07:00)
[2017-04-28] MEDS ORDERED: LSX20 PO (07:03)
== END 2017-03-23 14:51 | disposition home or self-care (01) | DRG 981 ==
LOC: C.RAD 13:28 → C.4E 14:00
PROVIDERS: ADMIT Internal Medicine; ATTEND Internal Medicine
PROC: 03180ZF Bypass Left Brachial Artery to Lower Arm Vein, Open Approach (ICD-10-PCS; principal; 2017-03-22 11:00)
DX: K52.1 Toxic gastroenteritis and colitis (principal); K57.32 Diverticulitis of large intestine without perforation or abscess without bleeding; I12.0 Hypertensive chronic kidney disease with stage 5 chronic kidney disease or end stage renal disease; N18.6 End stage renal disease; C64.2 Malignant neoplasm of left kidney, except renal pelvis; C77.9 Secondary and unspecified malignant neoplasm of lymph node, unspecified; N17.9 Acute kidney failure, unspecified; T45.1X5A Adverse effect of antineoplastic and immunosuppressive drugs, initial encounter; R07.9 Chest pain, unspecified; Z90.5 Acquired absence of kidney; E78.5 Hyperlipidemia, unspecified; E11.22 Type 2 diabetes mellitus with diabetic chronic kidney disease; J45.909 Unspecified asthma, uncomplicated; D63.1 Anemia in chronic kidney disease; D63.8 Anemia in other chronic diseases classified elsewhere; F41.9 Anxiety disorder, unspecified; F32.9 Major depressive disorder, single episode, unspecified; N40.0 Benign prostatic hyperplasia without lower urinary tract symptoms; K59.00 Constipation, unspecified; Z87.19 Personal history of other diseases of the digestive system; Z98.0 Intestinal bypass and anastomosis status; Z79.4 Long term (current) use of insulin; Z79.82 Long term (current) use of aspirin; Z79.899 Other long term (current) drug therapy; Z91.041 Radiographic dye allergy status; Z80.0 Family history of malignant neoplasm of digestive organs; Z80.42 Family history of malignant neoplasm of prostate; Z80.49 Family history of malignant neoplasm of other genital organs; Z83.3 Family history of diabetes mellitus; Z82.49 Family history of ischemic heart disease and other diseases of the circulatory system

== ENCOUNTER → 2017-03-30 | Outpatient (CLI) | payer OTHER ==
[~2017-03-30] MED LIST changes: +ACCU; +ASPI81TA28 PO; +CALC1CAP36 PO; -DOCU-94 PO; +FENT75DI2 TOP; +FRRS300 PO; -FURO40TA3 PO; -HYDR-4717 PO; +HYDR100T12 PO; +INSDGIPEN SC; +INSU1MIS SC; +LCTXP PO; -LISI40TA PO; +LSX20 PO; +LVQ250 PO; +METH5TAB2 PO; +METO1TAB31 PO; +MRLP17X PO; +NIVO1INJ IV; +NVLGIPEN SC; +OXYC-164 PO; +OXYC-57 PO; +PRD20 PO; +PRD50 PO; +PRED-301 PO; +PRED20TA PO; +SENN-65 PO; +SODI650T8 PO; -SUNI37.5 PO; +TAMS0.4C38 PO; +TPRSR/100 PO; -TYLENOL PO; +test strips EXT
[2017-03-30 14:36] LABS: URINE PROTIEN/CREAT RATIO 4.4 (0-0.2); URINE TOTAL PROTEIN 205.8 mg/dl (0-11.9)
== END | disposition home or self-care (01) ==
LOC: C.LAB 12:41
PROVIDERS: ATTEND Internal Medicine Nephrology
DX: N18.3 Chronic kidney disease, stage 3 (moderate) (principal); C64.2 Malignant neoplasm of left kidney, except renal pelvis

== ENCOUNTER → 2017-04-07 | Outpatient (CLI) | payer OTHER ==
[~2017-04-07] MED LIST changes: -OXYC-57 PO
--- NOTE | 2017-04-07 16:22 | DIAGNOSTIC IMAGING REPORT ---
VENOUS DOPPLER LWR EXT BILA CLINICAL HISTORY: 61 years-old Male presenting with PAIN AND SWELLING, R/O DVT. TECHNIQUE: Real-time grayscale and color and spectral Doppler ultrasound imaging of the veins of the bilateral lower extremities was performed. Compression and augmentation were also utilized. COMPARISON: 10/27/2016. FINDINGS: Right: Common femoral vein: Patent. Femoral vein: Patent. Greater saphenous vein: Patent. Popliteal vein: Patent. Calf veins: Patent. Right: Common femoral vein: Patent. Femoral vein: Patent. Greater saphenous vein: Patent. Popliteal vein: Patent. Calf veins: Patent. Other: None. IMPRESSION: No evidence of deep venous thrombosis. Electronically signed by: Loyd Horne M.D. 04/07/2017 4:21 PM Dictated Date/Time: 04/07/2017 4:19 PM
== END | disposition home or self-care (01) ==
LOC: C.ULTR 15:36
PROVIDERS: ATTEND Nurse Practitioner Family
DX: C64.2 Malignant neoplasm of left kidney, except renal pelvis (principal)

== ENCOUNTER 2017-04-09 05:19 | Inpatient (IN) | payer OTHER ==
[~2017-04-09] VITALS: Ht 177.8 cm; Wt 83.3 kg
[~2017-04-09 05:19] MED LIST changes: -ACCU; -ASPI81TA28 PO; -FENT75DI2 TOP; -INSDGIPEN SC; -INSU1MIS SC; -LSX20 PO; -METH5TAB2 PO; -METO1TAB31 PO; -NVLGIPEN SC; -OXYC-164 PO; -PRD50 PO; -PRED-301 PO; -PRED20TA PO; -TAMS0.4C38 PO; -TPRSR/100 PO; -test strips EXT
[2017-04-09 09:06] VITALS: BP 175/81; PULSE 101; TEMP 36.8; O2SAT 98; BMI 28.1
[2017-04-09] MEDS ORDERED: MAGNESIUM HYDROXIDE SUSP 30 ML UDC PO PRN (10:30)
[2017-04-09] MEDS ORDERED: POLYETHYLENE (MIRALAX) 17 GM PACK PO PRN (10:30)
[2017-04-09] MEDS ORDERED: GLUCOSE 10 TABS/TUBE PO PRN (10:30)
[2017-04-09] MEDS ORDERED: ALUMINUM/MAGNESIUM/SIMETH (MAALOX MAX) 30 ML UDC PO PRN (10:30)
[2017-04-09] MEDS ORDERED: GLUCAGON FOR INJ 1 MG VIAL SQ PRN (10:30)
[2017-04-09] MEDS ORDERED: GLUCOSE 40% GEL 15 GM TUBE PO PRN (10:30)
[2017-04-09] MEDS ORDERED: ONDANSETRON INJ 2 MG/ML 2 ML VIAL IV PRN (10:30)
[2017-04-09] MEDS ORDERED: DEXTROSE 50% 50 ML SYR IV PRN (10:30)
[2017-04-09] MEDS ORDERED: ACETAMINOPHEN 325 MG TAB PO PRN (10:30)
[2017-04-09] MEDS ORDERED: MoRPHine SULFATE 4 MG/ML 1 ML CARP\\VIAL IV PRN (10:45)
[2017-04-09] MEDS ORDERED: MoRPHine SULFATE 2 MG/ML CARP IV PRN (10:45)
[2017-04-09 10:54] LABS: URINE APPEARANCE CLEAR (CLEAR); URINE BILIRUBIN NEG (NEG); URINE COLOR YELLOW; URINE NITRITE NEG (NEG); URINE SPECIFIC GRAVITY 1.023 (1.000-1.030); UROBILINOGEN NEG (NEG); ZZUR CULT IF INDIC CLEAN CATCH NO
[2017-04-09 10:55] LABS: MANUAL MICROSCOPIC REQUIRED? NO; REVIEW REQ? NO
--- NOTE | 2017-04-09 10:56 | History and Physical ---
History & Physical Date & Time of Service: Apr 09, 2017 at 10:46 Chief Complaint: Renal Failure, Pneumonia Primary Care Physician: Salvador Muller M.D. History of Present Illness Mr. Christy is a 61 y/o male with PMHx of Metastatic RCC S/P L Nephrectomy, CKD Stage IV, T2DM, HTN, HLD, Chronic Anemia, BPH, Anxiety/Depression who is a direct admission from [facility] for SOB and Hypoxia. He reports waxing and waning SOB chronically but acute worsening over the past 2 weeks with last night being the worst and he called EMS. He reports a chronic minimal cough since resuming Lisinopril but no acute changes in this cough or sputum production. Last night he states he had SOB and sounded "crackly" when inhaling but no wheezing. Upon arrival to [facility], he was noted to be febrile at 101 F and hypoxic at 80% on RA. He states at home his sats were in the 70s. CXR at outside facility with multifocal L airspace disease and small L pleural effusion. Last night he also complained of R sided abdominal pain extending into the R flank. This pain intensified upon arrival to [facility]. He describes this pain as "a broom stabbing me in the side". He reports regular BMs and no constipation. He continues to make urine and denies acute urinary symptoms. Has reduced stream due to BPH that is unchanged. He reports chronic L sided CP since AV fistula placement that is intermittent but not worsening. At [facility], he was initiated on Zosyn and Vancomycin. Reports same level of SOB but feels that the crackling sounds is improved. He does not wear chronic O2. He follows with Dr. Dao with last Opdivo on Saturday 04/07. He is due for next dose on 04/21. He had B/L lower extremity U/S that did not show DVTs. Patient reporting minimal edema in legs and most edema in arms, abdomen, and periorbital. He had L AC AV fistula placed on 03/[address] Darden but no dialysis has been initiated at this point. At [facility], patient placed on Oxymask with adequate saturations. Imaging with consolidations and pleural effusions. Discussed the case with both Dr. Norwood and Dr. Douglas. Patient will be admitted for HCAP and pulmonary congestion. Past Medical/Surgical History 1. Metastatic Renal Cell Carcinoma S/P L Nephrectomy 2. CKD Stage IV 3. T2DM 4. HTN 5. HLD 6. Chronic Anemia 7. BPH 8. Anxiety/Depression Family History Cervical cancer Diabetes mellitus Heart disease Hypertension Myocardial infarction Pancreatic cancer Prostate cancer Social History Smoking Status: Never Smoker Smokeless Tobacco Use: No Alcohol Use: none Drug Use: none Marital Status: single Housing status: lives alone Occupational Status: retired Immunizations History of Influenza Vaccine: Yes Influenza Vaccine Date: May 14, 2015 History of Tetanus Vaccine?: Yes Tetanus Immunization Date: Sep 14, 2011 History of Pneumococcal: Yes Pneumococcal Date: Sep 14, 2013 History of Hepatitis B Vaccine: No Allergies Coded Allergies: Iodinated Diagnostic Agents (Verified Allergy, Unknown, oil based, severe headaches, 10/27/16) EVENT OCCURED IN 1971, PT STATES HE HAS HAD 3 DIFFERENT WATER BASED IVP DYES WITH NO ISSUE Home Medications Scheduled Amlodipine (Norvasc), 10 MG PO DAILY Calcitriol (Calcitriol), 0.25 MCG PO 3XWK Escitalopram (Lexapro), 10 MG PO DAILY Ferrous Sulfate (Ferrous Sulfate), 325 MG PO BID Hydralazine Hcl (Apresoline), 100 MG PO TID Insulin Glargine (Lantus), 14 SC QPM Insulin Lispro (Human) (Humalog Kwikpen), 10-20 SC AFTER DINNER Lactobacillus Acidophilus (Lactinex Granules), 1 GM PO TIDM Metoprolol Succinate (Toprol Xl), 25 MG PO BID Nivolumab (Opdivo), 40 MG IV Q14D Prednisone (Prednisone), 5 MG PO DAILY Senna/Docusate Sod (Senokot S), 1 TAB PO DAILY Simvastatin (Zocor), 20 MG PO QPM Sodium Bicarbonate (Sodium Bicarbonate), 650 MG PO DAILY Terazosin (Hytrin), 5 MG PO HS [Aspirin], 81 MG PO DAILY Scheduled PRN Polyethylene (Miralax), 17 GM PO DAILY PRN for Constipation Review of Systems Constitutional: + fever, + chills, + fatigue Eyes: + problem reported (bilateral eye edema) ENT: + problem reported (dry mouth; thrush), No nasal symptoms, No sore throat , No trouble swallowing Respiratory: + cough (since Lisinopril), + shortness of breath, No sputum, No wheezing, No hemoptysis Cardiovascular: + chest pain (chronic L sided since AV fistula 03/22 - intermittent), No palpitations Abdomen: + pain (R side into R flank), No nausea, No vomiting, No diarrhea ( but loose), No constipation, No GI bleeding Musculoskeletal: + swelling (abdominal edema, hands, b/l eyelids), No calf pain Genitourinary - Male: + urinary hesitancy (chronic with BPH), No dysuria, No urinary frequency, No urinary urgency, No urinary retention Hematologic / Lymphatic: No abnormal bleeding/bruising, No clotting problems Integumentary: No rash Physical Exam Vital Signs Date Time Temp Pulse Resp B/P (MAP) Pulse Ox O2 Delivery O2 Flow Rate FiO2 04/09/17 09:06 36.8 101 18 175/81 98 Mask 5.0 General Appearance: no apparent distress, + pertinent finding (chronically ill- appearing) Head: normocephalic, atraumatic Eyes: sclerae normal, + pertinent finding (bilateral upper eyelid edema) ENT: hearing grossly normal Neck: supple, no JVD, trachea midline Respiratory/Chest: no accessory muscle use, + respiratory distress (mild), + crackles (L base) Cardiovascular: regular rate, rhythm, no gallop, no murmur Abdomen/GI: normal bowel sounds, non tender, soft, + distended Extremities/Musculoskelatal: no calf tenderness, no pedal edema, + swelling ( edema of hands, non-pitting; R > L), + pertinent finding (L AC AV Fistula + thrill +bruit but immature) Neurologic/Psych: alert, oriented x 3 Skin: normal color, warm/dry Diagnostics Laboratory Results Results Past 24 Hours Test 04/09/17 09:55 04/09/17 10:43 Range/Units Diagnostic Radiology ABD/PELVIS WITHOUT FOR STONE FINDINGS: Kier Drier topogram: Unremarkable. Lung bases: Bilateral moderate pleural effusions increased in size from prior. Associated dependent passive atelectasis. Additionally, peribronchial vascular consolidation in the left lower lobe and nodular and groundglass consolidation in the lingula. Normal heart size. The intraventricular pool is less dense than the adjacent myocardium consistent with anemia. Aortic valve calcification. Liver: Normal morphology. Normal density. Biliary: No gross biliary ductal dilatation allowing for noncontrast technique. Normal gallbladder. Pancreas: Mild parenchymal atrophy. Spleen: Normal noncontrast appearance. Adrenal glands: Left adrenal gland is absent. Right adrenal gland normal. Kidneys and ureters: Mild right perinephric fat stranding is stable slightly increased from prior. No nephrolithiasis. Previous seen noted enlarging hyperdense lesion in the right kidney now measures 4.1 cm in diameter with a density of 28 Hounsfield units, previously 3.9 cm in diameter and slightly more dense measuring 40 Hounsfield units. Additional renal lesions noted which are low-density, some with minimal mural calcification, likely simple or minimally complex cysts but incompletely characterized. No hydronephrosis. Right ureter normal. Left kidney surgically absent. Bladder: Normal. Pelvic organs: Prostate enlargement likely secondary to benign prostatic hyperplasia. Bowel: A colocolonic anastomosis is noted with postoperative changes of sigmoidectomy. Diverticulosis of the descending and transverse colon. Normal appendix. No bowel obstruction. Peritoneal cavity: No free fluid or intraperitoneal gas. Vasculature: Atherosclerosis of the normal caliber abdominal aorta. IVC patent. Lymph nodes: Interval increase in size of retroperitoneal lymphadenopathy. An index node in the aortocaval region now measures 2.5 cm in short axis, previously 2.2 cm area persistence of retrocrural lymphadenopathy. Abdominal wall: Postsurgical changes of the midline abdomen. Small fat-containing port site hernia in the left mid abdomen. Subjacent surgical clip noted. Musculoskeletal: Degenerative changes of the spine. IMPRESSION: 1. No evidence of right nephrolithiasis. Slightly increased right perinephric fat stranding is nonspecific. Correlate with urinalysis to exclude infection. No right hydronephrosis. 2. Slight interval increase in size of the hyperdense renal lesion. This is incompletely characterized without intravenous contrast and could represent a hyperdense cyst containing hemorrhagic or proteinaceous debris versus a solid renal neoplasm. This was previously photopenic on PET CT from 05/02/2016, which argues against a solid lesion. 3. Diverticulosis with postsurgical changes of colocolonic anastomosis. 4. Continued interval increase in size of retroperitoneal lymphadenopathy compatible with regression of metastatic disease. 5. Increasing now moderate bilateral pleural effusions with associated dependent atelectasis. 6. Interval development of peribronchial vascular consolidation in the left lower lobe and nodular groundglass consolidation in the lingula, concerning for an infectious process. (CHEST) THORAX WITHOUT FINDINGS: Kier Drier topogram: Perihilar opacities, left greater than right. On soft tissue windows, normal thyroid and thoracic inlet. No axillary, supraclavicular, or mediastinal lymphadenopathy. Atherosclerosis of aortic arch. Four-vessel arch configuration. Normal heart size. Intraventricular blood pool is slightly less dense than the adjacent myocardium suggesting anemia. Aortic valve calcification may be present. Trace pericardial effusion. Interval development of moderate bilateral pleural effusions. Suggestion of hepatic steatosis. On lung windows, interval development of groundglass and more solid consolidation primarily in the left upper lobe but also involving the right upper lobe and left lower lobe lesser degrees. Opacities are primarily in a perihilar/peribronchial vascular distribution. Smooth interlobular septal thickening is most evident at the apices. Solid 5 mm nodule in the left upper lobe (series 4 image 121), new from prior. Few additional peripheral nodular opacities also noted in the left upper and lower lobes. Mild bronchial wall thickening evident. On bone windows, degenerative changes of the spine. IMPRESSION: 1. Interval development of peribronchovascular consolidation most extensively involving the left upper lobe but also noted in the right upper and left lower lobes. Additionally, new interlobular septal thickening and new bilateral moderate pleural effusions. The combination of these findings could suggest pulmonary edema, however, this usually preferentially involves the dependent lung and lower lobes. Nonetheless, pulmonary edema is the favored diagnosis, although infection and hemorrhage cannot be excluded. Given the presence of superimposed solid nodules, follow-up after treatment is recommended to ensure resolution. LUNG IMAGING VQ FINDINGS: Perfusion of both lungs is preserved without evidence of a defect. Photopenic defect on ventilation in the left lower lobe involving the lateral basal and posterior basal segments compatible with left pleural effusion. Similarly, photopenic defect in the expected region of the lateral basal and posterior basal right lower lobe compatible with right pleural effusion. Deposition of inhaled radiotracer in the central airways, right greater than left, which is likely a function of better aeration in the right lung secondary to perihilar left lung consolidation. No mismatched defects to suggest pulmonary embolus. Reference: Modified PIOPED 2 criteria Normal: No perfusion defects. Very low likelihood ratio: Nonsegmental, perfusion defect less than chest x-ray lesion, 1-3 small segmental defects, solitary triple matched defect (< or = 1 segment) in mid or upper lung, stripe sign, solitary large pleural effusion, greater than or equal to 2 matched defects with regionally normal chest x-ray. High likelihood ratio: Greater than or equal to 2 large mismatch segmental defects. Nondiagnostic: All other findings. IMPRESSION: 1. Normal. EKG EKG from [facility]. NSR without ischemic findings. WNL QT. Impression Assessment and Plan Mr. Christy is a 61 y/o male with PMHx of Metastatic RCC S/P L Nephrectomy, CKD Stage IV, T2DM, HTN, HLD, Chronic Anemia, BPH, Anxiety/Depression who is a direct admission from [facility] for SOB and Hypoxia. Noted to be febrile and suggest PNA with possible Pyelonephritis. Acute Hypoxic Respiratory Failure 2/2 Healthcare Associated Pneumonia with Pleural Effusions: - CT with consolidation and bilateral pleural effusions; VQ scan normal -- Echo (October) - EF 65-70%; no mention of diastolic dysfunction; no wall motion abnormality - Lasix 80 mg IV x 1 dose - Levofloxacin 750 mg Q48H, Zosyn 3.375 Q8H, and Vancomycin - On Prednisone 5 mg daily - chronic steroid use - will not stress dose at this time - Xopenex/Atrovent nebulizers - Consult Pulmonology - will discuss with on-call mincemeat maker - may need diagnostic/therapeutic thoracentesis -- Patient is hemodynamically stable and currently awaiting diuresis with Lasix - if resp. status worsening will need possible tap Fever in setting of Immunocompromised Patient: - No fever documented here - will need to follow-up with [facility] BCx and UA and Cx as ABx initiated prior to arrival here -- HIM request placed - Likely from HCAP but will follow with further testing to R/O other sources Abdominal Pain: Worsening CA vs Pyelonephritis: - CT with worsening lymphadenopathy and renal lesion size; stranding - Dilaudid 1 mg Q4H PRN Elevated Troponin: - Initial at [facility] negative at 0.02 with repeat here up to 0.120 - will continue to trend - Will obtain new EKG - no CP reported - likely demand ischemia CKD Stage IV with Immature L AC AV Fistula (03/22): - Hold Lasix 20 mg daily and Lisinopril 40 mg daily - appreciate nephrology input on diuresis with kidney status - Nephrology following - discussed with Dr. Norwood - worsening of retroperitoneal lymphadenopathy and increased size of R kidney lesion\\ Metastatic RCC S/P L Nephrectomy: Follows with Dr. Dao - On Opdivo - last dose 04/07 with next dose 9/29 - 2 week cycles - Heme/Onc following - discussed with Dr. Douglas - does not favor Opdivo- related pneumonitis but consideration of immune serositis if symptomst not from anything else - can consider diagnostic thoracentesis T2DM - Insulin Dependent: - Lantus 14 units SC daily and SSI with carb coverage HTN: - Acutely uncontrolled - may be multifactorial - will give Lopressor 5 mg IV x 1 dose - Amlodipine 10 mg daily - Metoprolol XL 25 mg BID HLD: - Simvastatin 20 mg daily Anemia of Chronic Disease: - Worsening Hgb compared to baseline - 10-11 range; no need for transfusion at this time - monitor - Ferrous Sulfate 325 mg BID BPH: - Terazosin 5 mg daily Anxiety/Depression: - Lexapro 10 mg daily DVT Prophylaxis: Heparin 5000 units SC BID Code Status: FULL RESUSCITATION Disposition: - Diuresis and treatment of HCAP - may need thoracentesis? - may be worsening of metastatic CA Level of Care Telemetry Advanced Directives Existing Living Will: No Existing Power of Regulator Pin Inserter: No Resuscitation Status FULL RESUSCITATION VTE Prophylaxis VTE Risk Assessment Done? Y/N: Yes Risk Level: Moderate Given or contraindicated: Unfractionated heparin SQ Reviewed: Pt Seen/Exam by Me History Physician Log Snaker Supervision Note: I interviewed and examined the patient. Discussed with CHRISTEN Beverly and agree with findings and plan as documented in the note. Any exceptions or clarifications are listed here: Pt admitted earlier today as direct transfer from [facility] for PNA,sepsis,acute hypoxemic respiratory failure, HCAP and pyelo. Is diuresing since receiving IV lasix, breathing treatments helping as well. Has c/o severe rt flank pain. Vitals reviewed, hypertensive, tachycardic-sinus Mild distress, alert and awake, oriented reg rhythm, mild tachycardia, no mgr lungs w/ dec BS at bases bilat, +tubular BS left middle lung field, a few crackles right base Abd +BS, +rt CVA tenderness, soft, large incisional scar midline abd, some +TTP RLQ w/o guarding or rebound Ext trace pitting edema, left forearm with AV fistula-no thrill palpable Skin-rt flank with a few scattered bruises, no rash Pt here with sepsis likely secondary to multifocal HCAP and possible right sided pyelonephritis, and acute hypoxemic respiratory failure due to PNA and moderate bilat pleural effusions. V/Q no risk for PE. -triple coverage abx due to severe illness, treating for GNR PNA and MRSA PNA given recent hospitalization -CT abd/pel with no stone but stranding around rt kidney and severe rt flank pain suggestive of pyelo-abx for PNA will also provide adequate coverage for this -continue to f/u with REY Kaplan for Urcx and BCx results -pain control -BiPAP if needed for worsening resp distress -Pulm consult appreciated -Nephrology consult appreciated -HTN-Nephrology made changes to meds-he had actually recently stopped his hydralazine and switched from atenolol to Toprol XL, and stopped lisinopril -increased Toprol XL to 50 bid, added hydralazine back at 25 tid, holding po lasix and giving IV lasix day to day -may need thoracentesis tomorrow to r/o empyema but effusions may be transudative from acute diastolic CHF, renal failure -elevated trop likely demand ischemia but trend trop and follow ECGs, no CP -Appreciate Hematology/Oncology consult for RCC and anemia -Heparin for DVT proph Documented By: Rosenda Luis
[2017-04-09] MEDS ORDERED: MoRPHine SULFATE 4 MG/ML 1 ML CARP\\VIAL ONE (11:40)
--- NOTE | 2017-04-09 11:46 | DIAGNOSTIC IMAGING REPORT ---
ABD/PELVIS WITHOUT FOR STONE CLINICAL HISTORY: 61 years-old Male presenting with R Side/Flank Pain; Possible Stone vs Pyelonephritis. TECHNIQUE: Multidetector CT of the abdomen and pelvis was performed without the use of intravenous contrast. IV contrast: None. A dose lowering technique was used consistent with the principles of ALARA (as low as reasonably achievable). COMPARISON: 03/09/2017. CT DOSE (mGy.cm): The estimated cumulative dose is 1431.53 mGy.cm. FINDINGS: Log Hauler topogram: Unremarkable. Lung bases: Bilateral moderate pleural effusions increased in size from prior. Associated dependent passive atelectasis. Additionally, peribronchial vascular consolidation in the left lower lobe and nodular and groundglass consolidation in the lingula. Normal heart size. The intraventricular pool is less dense than the adjacent myocardium consistent with anemia. Aortic valve calcification. Liver: Normal morphology. Normal density. Biliary: No gross biliary ductal dilatation allowing for noncontrast technique. Normal gallbladder. Pancreas: Mild parenchymal atrophy. Spleen: Normal noncontrast appearance. Adrenal glands: Left adrenal gland is absent. Right adrenal gland normal. Kidneys and ureters: Mild right perinephric fat stranding is stable slightly increased from prior. No nephrolithiasis. Previous seen noted enlarging hyperdense lesion in the right kidney now measures 4.1 cm in diameter with a density of 28 Hounsfield units, previously 3.9 cm in diameter and slightly more dense measuring 40 Hounsfield units. Additional renal lesions noted which are low-density, some with minimal mural calcification, likely simple or minimally complex cysts but incompletely characterized. No hydronephrosis. Right ureter normal. Left kidney surgically absent. Bladder: Normal. Pelvic organs: Prostate enlargement likely secondary to benign prostatic hyperplasia. Bowel: A colocolonic anastomosis is noted with postoperative changes of sigmoidectomy. Diverticulosis of the descending and transverse colon. Normal appendix. No bowel obstruction. Peritoneal cavity: No free fluid or intraperitoneal gas. Vasculature: Atherosclerosis of the normal caliber abdominal aorta. IVC patent. Lymph nodes: Interval increase in size of retroperitoneal lymphadenopathy. An index node in the aortocaval region now measures 2.5 cm in short axis, previously 2.2 cm area persistence of retrocrural lymphadenopathy. Abdominal wall: Postsurgical changes of the midline abdomen. Small fat-containing port site hernia in the left mid abdomen. Subjacent surgical clip noted. Musculoskeletal: Degenerative changes of the spine. IMPRESSION: 1. No evidence of right nephrolithiasis. Slightly increased right perinephric fat stranding is nonspecific. Correlate with urinalysis to exclude infection. No right hydronephrosis. 2. Slight interval increase in size of the hyperdense renal lesion. This is incompletely characterized without intravenous contrast and could represent a hyperdense cyst containing hemorrhagic or proteinaceous debris versus a solid renal neoplasm. This was previously photopenic on PET CT from 05/02/2016, which argues against a solid lesion. 3. Diverticulosis with postsurgical changes of colocolonic anastomosis. 4. Continued interval increase in size of retroperitoneal lymphadenopathy compatible with regression of metastatic disease. 5. Increasing now moderate bilateral pleural effusions with associated dependent atelectasis. 6. Interval development of peribronchial vascular consolidation in the left lower lobe and nodular groundglass consolidation in the lingula, concerning for an infectious process. Electronically signed by: Loyd Horne M.D. 04/09/2017 11:45 AM Dictated Date/Time: 04/09/2017 11:34 AM
--- NOTE | 2017-04-09 11:57 | Oncology Consultation ---
Oncology/Heme Consultation Date of Consultation: Apr 09, 2017. Attending Physician: Lamberto Eli M.D. Reason for Consultation: Metastatic renal cell carcinoma Hypoxia/shortness of breath Fevers Pleuritic chest pain History of Present Illness Mr. Christy is a 61 year old man with a history of CKD, HTN, and metastatic renal cell carcinoma on Opdivo. He was recently admitted with presumptive diverticulitis and was discharged 03/23/17. He was seen by our nurse practitioner on Monday (04/07), who ordered bilateral lower extremity dopplers for edema. They were negative for DVT. He started feeling short of breath late Monday into Monday, associated with severe right pleuritic chest pain. He called EMS yesterday evening and was taken to [facility]. Apparently, he was febrile in the ambulance at 101. He is coughing intermittently but denies any sputum. He checked his oxygen level at home prior to the ambulance ride, which were apparently in the 70s. His weight is stable to slightly down from Monday. He does not appear to be grossly edematous. Past Medical/Surgical History Medical Problems: (1) Acute dyspnea Status: Acute (2) Chronic kidney disease Status: Acute (3) Renal cell carcinoma Status: Acute Family History Cervical cancer Diabetes mellitus Heart disease Hypertension Myocardial infarction Pancreatic cancer Prostate cancer Social History Smoking Status: Never Smoker Smokeless Tobacco Use: No Alcohol Use: none Drug Use: none Marital Status: single Occupation Status: retired Allergies Coded Allergies: Iodinated Diagnostic Agents (Verified Allergy, Unknown, oil based, severe headaches, 10/27/16) EVENT OCCURED IN 1971, PT STATES HE HAS HAD 3 DIFFERENT WATER BASED IVP DYES WITH NO ISSUE Home Medications Scheduled Amlodipine (Norvasc), 10 MG PO DAILY Atenolol (Tenormin), 50 MG PO DAILY Calcitriol (Calcitriol), 0.25 MCG PO 3XWK Escitalopram (Lexapro), 10 MG PO DAILY Ferrous Sulfate (Ferrous Sulfate), 325 MG PO BID Hydralazine Hcl (Apresoline), 100 MG PO TID Insulin Glargine (Lantus), 14 SC QPM Insulin Lispro (Human) (Humalog Kwikpen), 10-20 SC AFTER DINNER Lactobacillus Acidophilus (Lactinex Granules), 1 GM PO TIDM Levofloxacin (Levofloxacin), 250 MG PO DAILY@11 Nivolumab (Opdivo), 40 MG IV Q14D Prednisone (Prednisone), 20 MG PO DAILY Senna/Docusate Sod (Senokot S), 1 TAB PO DAILY Simvastatin (Zocor), 20 MG PO QPM Sodium Bicarbonate (Sodium Bicarbonate), 650 MG PO DAILY Terazosin (Hytrin), 5 MG PO HS [Aspirin], 81 MG PO DAILY Scheduled PRN Polyethylene (Miralax), 17 GM PO DAILY PRN for Constipation Current Inpatient Medications Current Inpatient Medications Medications (Trade) Dose Ordered Sig/Edward Route Start Time Stop Time Status Last Admin Dose Admin Heparin Sodium (Porcine) (Heparin Sq 5000 Unit/0.5ml) 5,000 unit Q12 SQ 04/09/17 21:00 05/09/17 20:59 UNV Acetaminophen (Tylenol Tab) 650 mg Q4H PRN PO 04/09/17 10:30 05/09/17 10:29 UNV Al Hydrox/Mg Hydrox/Simethicone (Maalox Max Susp) 15 ml Q4H PRN PO 04/09/17 10:30 05/09/17 10:29 UNV Magnesium Hydroxide (Milk Of Magnesia Susp) 30 ml Q12H PRN PO 04/09/17 10:30 05/09/17 10:29 UNV Ondansetron HCl (Zofran Inj) 4 mg Q6H PRN IV 04/09/17 10:30 05/09/17 10:29 UNV Polyethylene (Miralax Powder Packet) 17 gm DAILY PRN PO 04/09/17 10:30 05/09/17 10:29 UNV Insulin Aspart (novoLOG ASPART) SLIDING SCALE If C... ACHS SC 04/09/17 11:00 05/09/17 10:59 UNV Glucose (Glucose 40% Gel) 15-30 GRAMS 15 GRAMS... UD PRN PO 04/09/17 10:30 05/09/17 10:29 UNV Glucose (Glucose Chew Tab) 4-8 Tablets 4 Tabl... UD PRN PO 04/09/17 10:30 05/09/17 10:29 UNV Dextrose (Dextrose 50% 50ML Syringe) 25-50ML OF 50% DW IV FOR... UD PRN IV 04/09/17 10:30 05/09/17 10:29 UNV Glucagon (Glucagon Inj) 1 mg UD PRN SQ 04/09/17 10:30 05/09/17 10:29 UNV Amlodipine Besylate (Norvasc Tab) 10 mg DAILY PO 04/10/17 09:00 05/10/17 08:59 UNV Escitalopram Oxalate (Lexapro Tab) 10 mg DAILY PO 04/10/17 09:00 05/10/17 08:59 UNV Ferrous Sulfate (Feosol Tab) 325 mg BID PO 04/09/17 21:00 05/09/17 20:59 UNV Insulin Glargine (Lantus Solostar Pen) 14 units QPM SC 04/09/17 21:00 05/09/17 20:59 UNV Prednisone (PredniSONE TAB) 5 mg DAILY PO 04/10/17 09:00 05/10/17 08:59 UNV Senna/Docusate Sodium (Senokot S Tab) 1 tab DAILY PO 04/10/17 09:00 05/10/17 08:59 UNV Simvastatin (Zocor Tab) 20 mg QPM PO 04/09/17 21:00 05/09/17 20:59 UNV Terazosin HCl (Hytrin Cap) 5 mg HS PO 04/09/17 21:00 05/09/17 20:59 UNV Morphine Sulfate (MoRPHine SULFATE INJ) 2 mg Q4H PRN IV 04/09/17 10:45 04/23/17 10:44 UNV Morphine Sulfate (MoRPHine SULFATE INJ) 4 mg Q4H PRN IV 04/09/17 10:45 04/23/17 10:44 UNV Levofloxacin 750 mg/Prmx 150 ml @ 100 mls/hr Q48H IV 04/09/17 10:45 04/16/17 10:44 UNV Vancomycin HCl 1000 mg/Sodium Chloride 270 ml @ 125 mls/hr Q12 IV 04/09/17 21:00 04/16/17 20:59 UNV Piperacillin Sod/ Tazobactam Sod 3.375 gm/Dextrose 115 ml @ 28.75 mls/ hr Q8 IV 04/09/17 14:00 04/16/17 13:59 UNV Aspirin (Ecotrin Tab) 81 mg QAM PO 04/10/17 09:00 05/10/17 08:59 UNV Metoprolol Succinate (Toprol Xl Tab) 25 mg BID PO 04/09/17 21:00 05/09/17 20:59 UNV Nystatin (Mycostatin Susp) 5 ml QID PO 04/09/17 13:00 04/19/17 12:59 UNV Clotrimazole (Mycelex 10MG Robert) 1 robert QID MT 04/09/17 13:00 04/19/17 12:59 UNV Review of Systems Constitutional: + fever, + fatigue ENT: No unusual epistaxis Respiratory: + cough, + shortness of breath, No sputum, No hemoptysis Cardiovascular: + chest pain (pleuritic, right-sided CP) Abdomen: No pain, No nausea Musculoskeletal: No joint pain, No muscle pain Genitourinary - Male: No hematuria, No dysuria Hematologic / Lymphatic: No abnormal bleeding/bruising Integumentary: No rash Physical Exam Date Time Temp Pulse Resp B/P (MAP) Pulse Ox O2 Delivery O2 Flow Rate FiO2 04/09/17 09:06 36.8 101 18 175/81 98 Mask 5.0 General Appearance: WD/WN, + mild distress (due to increased work of breathing) Eyes: sclerae normal (anicteric) Respiratory/Chest: chest non-tender, + decreased breath sounds (in lower [place] ) Cardiovascular: regular rate, rhythm, no JVD Abdomen/GI: non tender, soft Extremities/Musculoskelatal: no pedal edema Neurologic/Psych: alert, oriented x 3 Skin: no rash Laboratory Results Last 24 Hours Test 04/09/17 09:55 04/09/17 10:43 Urine Color YELLOW Urine Appearance CLEAR Urine pH 5.0 Urine Specific [place] 1.023 Urine Protein 3+ Urine Glucose (UA) NEG Urine Ketones NEG Urine Occult Blood TRACE Urine Nitrite NEG Urine Bilirubin NEG Urine Urobilinogen NEG Urine Leukocyte Esterase NEG Urine WBC (Auto) 1-5 /hpf Urine RBC (Auto) 0-4 /hpf Urine Hyaline Casts (Auto) 1-5 /lpf Urine Epithelial Cells (Auto) 10-20 /lpf Urine Bacteria (Auto) NEG Assessment & Plan Mr. Christy has metastatic renal cell carcinoma and is currently on Opdivo. He presents with shortness of breath, hypoxia, and fevers. A CT of his abdomen and pelvis was done, the read of which is still pending, that reveals interval development of bilateral effusions (L>R) with dependent atelectasis. He was negative for DVT on Monday. He is ordered for a V/Q scan, because of his CKD, but I would also consider a non-contrast CT Chest to evaluate his whole lungs. The differential for his SOB would be pneumonia (given his fever) vs compression from effusions secondary to his renal failure. Opdivo-related pneumonitis generally presents with more of an interstitial or ground-glass pattern. You can see immune serositis from PD-1 inhibitors, so if another explanation is not obvious, I would consider diagnostic thoracentesis.
[2017-04-09] MEDS ORDERED: PIPERACILL/TAZOBAC CONSULT ACTIVE PRN (12:00)
[2017-04-09] MEDS ORDERED: VANCOMYCIN CONSULT ACTIVE PRN (12:00)
[2017-04-09] MEDS: INSULIN ASPART 100 UNITS/ML 3 ML PEN SC SCH ×3 (12:17→21:23)
[2017-04-09 12:30] LABS: HEMATOCRIT 25.6 % (42-52); MEAN CELL VOLUME 83.7 fL (80-100); MEAN CORPUSCULAR HEMOGLOBIN 26.8 pg (25-34); PLATELET COUNT 193 K/uL (130-400); RED BLOOD COUNT 3.06 M/uL (4.7-6.1); WHITE BLOOD COUNT 9.17 K/uL (4.8-10.8)
[2017-04-09] MEDS ORDERED: PIPERACILL/TAZOBAC IV 3.375 GM in DEXTROSE 5% 100ML IV ONE (12:30)
[2017-04-09 12:37] LABS: PROTHROMBIN TIME (PATIENT) 11.1 SECONDS (9.0-12.0)
[2017-04-09] MEDS ORDERED: VANCOMYCIN INJ 2,000 MG in SODIUM CHLORIDE 0.9% 500ML 500 ML IV ONE (12:45)
[2017-04-09 12:54] LABS: BASO % 0.2 %; BASO ABS # 0.02 K/uL (0-0.2); COMPLETE YES; EOS % 1.4 %; IG% 0.3 %; LYMPH ABS # 0.92 K/uL (1.2-3.4); MONO % 10.5 %; NEUT % 77.6 %; POLYCHROMASIA 1+
[2017-04-09 13:02] LABS: BUN/CREATININE RATIO 16.8 (10-20); CALCIUM 8.4 mg/dl (8.5-10.1); CREATININE 3.4 mg/dl (0.60-1.40); POTASSIUM 3.8 mmol/L (3.5-5.1)
[2017-04-09 13:05] LABS: ALB/GLOB RATIO 0.6 (0.9-2)
[2017-04-09] MEDS: NYSTATIN SUSP 500,000 U/5 ML UDC PO SCH ×3 (13:12→21:17)
[2017-04-09] MEDS: LEVOFLOXACIN / D5W 750 MG in PREMIXED IN D5W 150 ML IV SCH (13:12)
[2017-04-09] MEDS: CLOTRIMAZOLE 10 MG TROCHE MT SCH ×3 (13:12→21:18)
--- NOTE | 2017-04-09 13:14 | DIAGNOSTIC IMAGING REPORT ---
CHEST ONE VIEW PORTABLE CLINICAL HISTORY: 61 years-old Male presenting with SOB; Hypoxia. TECHNIQUE: Portable upright AP view of the chest was obtained. COMPARISON: 03/09/2017. FINDINGS: Cardiomediastinal silhouette normal. Interval development of central/perihilar hazy and more solid consolidation, left greater than right. No large effusion or pneumothorax. Osseous structures normal. Upper abdomen normal. IMPRESSION: 1. Left greater than right perihilar consolidation could represent pulmonary edema or infection. Electronically signed by: Loyd Horne M.D. 04/09/2017 1:13 PM Dictated Date/Time: 04/09/2017 1:12 PM
--- NOTE | 2017-04-09 13:27 | Nephrology Consultation ---
Nephrology Consultation Date & Providers Date of Consultation: Apr 09, 2017. Primary Care Provider: Salvador Muller M.D. Referring Provider: Reason for Consultation Evaluation management for advanced chronic kidney disease and volume overload.. History of Present Illness Padilla is a 61-year-old gentlemen with past medical history significant for metastatic renal cell carcinoma status post left nephrectomy, hypertension high grade proteinuria and stage 4 chronic kidney disease spell admit to the hospital with pneumonia. Nephrologic consult was requested to manage advanced CKD, evaluate for possible need for dialysis. Padilla has stage 4 chronic kidney disease, baseline creatinine has been around 3.3-3.5, with history of left nephrectomy in 2016 for metastatic renal cell carcinoma. He had left arm AV fistula placed during last admission. Has high grade proteinuria. Currently has metastatic retroperitoneal lymphadenopathy, right kidney hyperdense lesion. He has been on Sutent but developed nephrotic syndrome and difficult to control hypertension. Started on Opdivo but he had complications related to that including arthralgia, recent colitis. Optivo was hold but resumed and last dose was on 04/07/2017. Since his discharge from recent hospital admission overall he has been feeling fatigued but otherwise a clinically stable. Yesterday throughout the day he was at his baseline and but at night around 10 pm he started having shortness of breath and increased pain in his right lower quadrant of abdomen and right flank. Has been having regular bowel movement, urine output has been normal. He initially went to [facility] where was found to be febrile with temperature 101, blood culture was drawn and he was started on vancomycin and Zosyn and transferred to [facility]. On arrival to [facility] he was found to be hypoxic with room air oxygen saturation around 80s. Chest x-ray was concerning for pneumonia and pleural effusion. His creatinine was 3.7, hemoglobin 8.3. Currently he continues to have mild shortness of breath and has worsening right flank and lower abdominal pain. He is afebrile now. He was continued on vancomycin and Zosyn and Levaquin was added, renally dosed. CT scan of abdomen and pelvis without contrast showed moderate bilateral pleural effusion, increased size of retroperitoneal lymphadenopathy as well as increase in size of the right kidney hyperdense lesion to 4.1 cm compared to 3.9 cm on recent imaging. No hydronephrosis. There was increased perinephric stranding which was considered nonspecific, no clear indication of pyelonephritis. Allergies Coded Allergies: Iodinated Diagnostic Agents (Verified Allergy, Unknown, oil based, severe headaches, 10/27/16) EVENT OCCURED IN 1971, PT STATES HE HAS HAD 3 DIFFERENT WATER BASED IVP DYES WITH NO ISSUE Inpatient Medications Current Inpatient Medications Medications (Trade) Dose Ordered Sig/Edward Route Start Time Stop Time Status Last Admin Dose Admin Heparin Sodium (Porcine) (Heparin Sq 5000 Unit/0.5ml) 5,000 unit Q12 SQ 04/09/17 21:00 05/09/17 20:59 UNV Acetaminophen (Tylenol Tab) 650 mg Q4H PRN PO 04/09/17 10:30 05/09/17 10:29 UNV Al Hydrox/Mg Hydrox/Simethicone (Maalox Max Susp) 15 ml Q4H PRN PO 04/09/17 10:30 05/09/17 10:29 UNV Magnesium Hydroxide (Milk Of Magnesia Susp) 30 ml Q12H PRN PO 04/09/17 10:30 05/09/17 10:29 UNV Ondansetron HCl (Zofran Inj) 4 mg Q6H PRN IV 04/09/17 10:30 05/09/17 10:29 UNV Polyethylene (Miralax Powder Packet) 17 gm DAILY PRN PO 04/09/17 10:30 05/09/17 10:29 UNV Insulin Aspart (novoLOG ASPART) SLIDING SCALE If C... ACHS SC 04/09/17 11:00 05/09/17 10:59 UNV Glucose (Glucose 40% Gel) 15-30 GRAMS 15 GRAMS... UD PRN PO 04/09/17 10:30 05/09/17 10:29 UNV Glucose (Glucose Chew Tab) 4-8 Tablets 4 Tabl... UD PRN PO 04/09/17 10:30 05/09/17 10:29 UNV Dextrose (Dextrose 50% 50ML Syringe) 25-50ML OF 50% DW IV FOR... UD PRN IV 04/09/17 10:30 05/09/17 10:29 UNV Glucagon (Glucagon Inj) 1 mg UD PRN SQ 04/09/17 10:30 05/09/17 10:29 UNV Amlodipine Besylate (Norvasc Tab) 10 mg DAILY PO 04/10/17 09:00 05/10/17 08:59 UNV Escitalopram Oxalate (Lexapro Tab) 10 mg DAILY PO 04/10/17 09:00 05/10/17 08:59 UNV Ferrous Sulfate (Feosol Tab) 325 mg BID PO 04/09/17 21:00 05/09/17 20:59 UNV Insulin Glargine (Lantus Solostar Pen) 14 units QPM SC 04/09/17 21:00 05/09/17 20:59 UNV Prednisone (PredniSONE TAB) 5 mg DAILY PO 04/10/17 09:00 05/10/17 08:59 UNV Senna/Docusate Sodium (Senokot S Tab) 1 tab DAILY PO 04/10/17 09:00 05/10/17 08:59 UNV Simvastatin (Zocor Tab) 20 mg QPM PO 04/09/17 21:00 05/09/17 20:59 UNV Terazosin HCl (Hytrin Cap) 5 mg HS PO 04/09/17 21:00 05/09/17 20:59 UNV Morphine Sulfate (MoRPHine SULFATE INJ) 2 mg Q4H PRN IV 04/09/17 10:45 04/23/17 10:44 UNV Morphine Sulfate (MoRPHine SULFATE INJ) 4 mg Q4H PRN IV 04/09/17 10:45 04/23/17 10:44 UNV Levofloxacin 750 mg/Prmx 150 ml @ 100 mls/hr Q48H IV 04/09/17 10:45 04/16/17 10:44 UNV Vancomycin HCl 1000 mg/Sodium Chloride 270 ml @ 125 mls/hr Q12 IV 04/09/17 21:00 04/16/17 20:59 UNV Piperacillin Sod/ Tazobactam Sod 3.375 gm/Dextrose 115 ml @ 28.75 mls/ hr Q8 IV 04/09/17 14:00 04/16/17 13:59 UNV Aspirin (Ecotrin Tab) 81 mg QAM PO 04/10/17 09:00 05/10/17 08:59 UNV Metoprolol Succinate (Toprol Xl Tab) 25 mg BID PO 04/09/17 21:00 05/09/17 20:59 UNV Nystatin (Mycostatin Susp) 5 ml QID PO 04/09/17 13:00 04/19/17 12:59 UNV Clotrimazole (Mycelex 10MG Christina) 1 christina QID MT 04/09/17 13:00 04/19/17 12:59 UNV Family History Cervical cancer Diabetes mellitus Heart disease Hypertension Myocardial infarction Pancreatic cancer Prostate cancer Social History Smoking Status: Never Smoker Smokeless Tobacco Use: No Alcohol Use: none Drug Use: none Marital Status: single Housing Status: lives alone Occupation: retired Review of Systems A complete review of systems was performed. Pertinent positives are noted above. All other systems are negative. Physical Exam Date Time Temp Pulse Resp B/P (MAP) Pulse Ox O2 Delivery O2 Flow Rate FiO2 04/09/17 09:06 36.8 101 18 175/81 98 Mask 5.0 GENERAL: middle aged male, AAA x 3, pale, in moderate distress with pain. HEENT: Atraumatic, normocephalic. NECK: Supple, no JVD, no carotid bruit appreciated. ENT: No sinus tenderness MOUTH and THROAT: Moist oral mucosa, no oral ulcer or pharyngeal erythema RESPIRATORY: Bilateral decrease in BS at bases CARDIOVASCULAR: S1, S2 normal, rate rhythm regular. ABDOMEN: Soft, tender in rt lower quadrant, right flank mildly distended, positive bowel sound. MUSCULOSKELETAL: No joint swelling, erythema or tenderness. Normal range of motion. SKIN: No skin rash EXTREMITY: No lower extremity edema, mild swelling of rt upper extremity , mainly rt hand NEURO: No gross focal neurological deficit, speech fluent. PSYCHIATRY: Normal mood and judgment Laboratory Results Last 24 Hours Test 04/09/17 09:55 04/09/17 10:43 Urine Color YELLOW Urine Appearance CLEAR Urine pH 5.0 Urine Specific [place] 1.023 Urine Protein 3+ Urine Glucose (UA) NEG Urine Ketones NEG Urine Occult Blood TRACE Urine Nitrite NEG Urine Bilirubin NEG Urine Urobilinogen NEG Urine Leukocyte Esterase NEG Urine WBC (Auto) 1-5 /hpf Urine RBC (Auto) 0-4 /hpf Urine Hyaline Casts (Auto) 1-5 /lpf Urine Epithelial Cells (Auto) 10-20 /lpf Urine Bacteria (Auto) NEG Impression (1) Kidney disease, chronic, stage IV (GFR 15-29 ml/min) (2) Pneumonia (3) Abdominal pain (4) Anemia (5) Hypertension (6) H/O unilateral nephrectomy Elvin is a 61-year-old gentlemen with them stage 4 chronic kidney disease with solitary right kidney with history of left nephrectomy cell metastatic renal cell carcinoma. Has retroperitoneal lymphadenopathy recently increasing in size , increase in size of right kidney hyperdense lesion. Presented to the hospital with fever, shortness of breath and desaturation, found to have pneumonia and bilateral pleural effusion. Started on empiric antibiotic vancomycin, Zosyn and Levaquin. Has severe right flank and lower abdominal pain , CT scan is inconclusive for pyelonephritis but has perinephric stranding and slight increase in size of right kidney hyperdense lesion. He has high grade proteinuria and has been on lisinopril and Lasix. Currently both on hold, blood pressure running slightly high. He has been on Opdivo but had multiple adverse effect possibly associated with it however he does not have lot of other options at this point to treat the metastatic renal cell carcinoma. Previously could not tolerate Sutent due to high grade proteinuria and poorly-controlled hypertension. Unclear etiology for the right lower quadrant and flank pain however could be related to hypertensive renal mass, perinephric stranding/pyelonephritis or from retroperitoneal lymphadenopathy. Recommendations --Avoid morphine, prefer Dilaudid for pain control --Lasix 80 mg IV x1 dose --continue to hold lisinopril --agree with continuing on empiric antibiotic, will need to f/u on the blood cx done at [facility] --if the effusion continue to worsen and respiratory status worsen may need a pleural tap --hemoglobin dropping but no indication for blood transfusion at this point, with his active metastatic malignancy, and elevated blood pressure would hold off on IDALIA for now --left arm AV fistula is maturing, may take several weeks before we can use however there is no acute indication for dialysis at this point --with increasing size of renal lesion and retroperitoneal adenopathy, worry that many of his symptoms in fact could be due to progression of the underlying metastatic disease Thank you for allowing me to participate in your patient's care. It was a pleasure to see Padilla This chart was completed utilizing [employer] and voice recognition software. Grammatical errors, random word insertions, pronoun errors and incomplete sentences are occasional consequences of this system. Any questions or concerns about the content, text or information contained within the body of this dictation should be addressed directly to the physician for clarification.
--- NOTE | 2017-04-09 14:12 | DIAGNOSTIC IMAGING REPORT ---
(CHEST) THORAX WITHOUT CLINICAL HISTORY: 61 years-old Male presenting with SOB; Hypoxia. TECHNIQUE: Multidetector CT imaging of the chest was performed without the use of intravenous contrast. IV contrast: None. A dose lowering technique was used consistent with the principles of ALARA (as low as reasonably achievable). COMPARISON: 12/02/2016. CT DOSE (mGy.cm): The estimated cumulative dose is 442.76 mGy.cm. FINDINGS: Hostel Manager topogram: Perihilar opacities, left greater than right. On soft tissue windows, normal thyroid and thoracic inlet. No axillary, supraclavicular, or mediastinal lymphadenopathy. Atherosclerosis of aortic arch. Four-vessel arch configuration. Normal heart size. Intraventricular blood pool is slightly less dense than the adjacent myocardium suggesting anemia. Aortic valve calcification may be present. Trace pericardial effusion. Interval development of moderate bilateral pleural effusions. Suggestion of hepatic steatosis. On lung windows, interval development of groundglass and more solid consolidation primarily in the left upper lobe but also involving the right upper lobe and left lower lobe lesser degrees. Opacities are primarily in a perihilar/peribronchial vascular distribution. Smooth interlobular septal thickening is most evident at the apices. Solid 5 mm nodule in the left upper lobe (series 4 image 121), new from prior. Few additional peripheral nodular opacities also noted in the left upper and lower lobes. Mild bronchial wall thickening evident. On bone windows, degenerative changes of the spine. IMPRESSION: 1. Interval development of peribronchovascular consolidation most extensively involving the left upper lobe but also noted in the right upper and left lower lobes. Additionally, new interlobular septal thickening and new bilateral moderate pleural effusions. The combination of these findings could suggest pulmonary edema, however, this usually preferentially involves the dependent lung and lower lobes. Nonetheless, pulmonary edema is the favored diagnosis, although infection and hemorrhage cannot be excluded. Given the presence of superimposed solid nodules, follow-up after treatment is recommended to ensure resolution. Electronically signed by: Loyd Horne M.D. 04/09/2017 2:11 PM Dictated Date/Time: 04/09/2017 2:03 PM
[2017-04-09] MEDS ORDERED: FUROSEMIDE INJ 80 MG in SYRINGE 0 ML IV ONE (14:45)
[2017-04-09] MEDS: HYDROmorphone INJ 1 MG/ML SYR IV PRN ×2 (14:47→19:31)
[2017-04-09 14:54] VITALS: BP 181/79; PULSE 104; TEMP 37.2; O2SAT 98
--- NOTE | 2017-04-09 14:55 | Pharmacy Progress Note ---
Pharmacy Antibiotic Consult Date of Service: Apr 09, 2017. Pharmacy Dosing Scope Pharmacy is consulted to initiate vancomycin IV dosing therapy, order appropriate labs and adjust drug dose/frequency. Subjective The patient is a 61 year old male admitted on Apr 09, 2017 at 08:55. Objective Height (Feet): 5 Height (Inches): 10.00 Weight (Kilograms): 88.700 Lab Results (24hrs): Test 04/09/17 09:55 04/09/17 11:46 Urine Color YELLOW Urine Appearance CLEAR (CLEAR) Urine pH 5.0 (4.5-7.5) Urine Specific [place] 1.023 (1.000-1.030) Urine Protein 3+ (NEG) Urine Glucose (UA) NEG (NEG) Urine Ketones NEG (NEG) Urine Occult Blood TRACE (NEG) Urine Nitrite NEG (NEG) Urine Bilirubin NEG (NEG) Urine Urobilinogen NEG (NEG) Urine Leukocyte Esterase NEG (NEG) Urine WBC (Auto) 1-5 /hpf (0-5) Urine RBC (Auto) 0-4 /hpf (0-4) Urine Hyaline Casts (Auto) 1-5 /lpf (0-5) Urine Epithelial Cells (Auto) 10-20 /lpf (0-5) Urine Bacteria (Auto) NEG (NEG) White Blood Count 9.17 K/uL (4.8-10.8) Red Blood Count 3.06 M/uL (4.7-6.1) Hemoglobin 8.2 g/dL (14.0-18.0) Hematocrit 25.6 % (42-52) Mean Corpuscular Volume 83.7 fL (80-100) Mean Corpuscular Hemoglobin 26.8 pg (25-34) Mean Corpuscular Hemoglobin Concent 32.0 g/dl (32-36) Platelet Count 193 K/uL (130-400) Mean Platelet Volume 10.0 fL (7.4-10.4) Neutrophils (%) (Auto) 77.6 % Lymphocytes (%) (Auto) 10.0 % Monocytes (%) (Auto) 10.5 % Eosinophils (%) (Auto) 1.4 % Basophils (%) (Auto) 0.2 % Neutrophils # (Auto) 7.11 K/uL (1.4-6.5) Lymphocytes # (Auto) 0.92 K/uL (1.2-3.4) Monocytes # (Auto) 0.96 K/uL (0.11-0.59) Eosinophils # (Auto) 0.13 K/uL (0-0.5) Basophils # (Auto) 0.02 K/uL (0-0.2) RDW Standard Deviation 50.4 fL (36.4-46.3) RDW Coefficient of Variation 16.4 % (11.5-14.5) Immature Granulocyte % (Auto) 0.3 % Immature Granulocyte # (Auto) 0.03 K/uL (0.00-0.02) Polychromasia 1+ Basophilic Stippling 1+ Prothrombin Time 11.1 SECONDS (9.0-12.0) Prothromb Time International Ratio 1.0 (0.9-1.1) Sodium Level 142 mmol/L (136-145) Potassium Level 3.8 mmol/L (3.5-5.1) Chloride Level 107 mmol/L (98-107) Carbon Dioxide Level 26 mmol/L (21-32) Anion Gap 9.0 mmol/L (3-11) Blood Urea Nitrogen 57 mg/dl (7-18) Creatinine 3.40 mg/dl (0.60-1.40) Est Creatinine Clear Calc Drug Dose 24.9 ml/min Estimated GFR () 21.0 Estimated GFR (Non- 18.2 BUN/Creatinine Ratio 16.8 (10-20) Bedside Glucose 100 mg/dl (70-99) Random Glucose 94 mg/dl (70-99) Calcium Level 8.4 mg/dl (8.5-10.1) Total Bilirubin 0.4 mg/dl (0.2-1) Aspartate Amino Transf (AST/SGOT) 13 U/L (15-37) Alanine Aminotransferase (ALT/SGPT) 16 U/L (12-78) Alkaline Phosphatase 45 U/L (45-117) Total Protein 5.6 gm/dl (6.4-8.2) Albumin 2.2 gm/dl (3.4-5.0) Globulin 3.4 gm/dl (2.5-4.0) Albumin/Globulin Ratio 0.6 (0.9-2) Recent Pertinent Medications Zosyn 3.375 q8 and levaquin 750mg q 48 Assessment & Plan Patient is a group home resident and direct admit from [facility] for pneumonia. Scheduled a dose currently, but will follow closely given acute on chronic kidney dysfunction. Loading dose: 2000 mg IV X 1 dose then: 1250 mg IV every 36 hours. Goal trough level estimate: between 15 - 20 mcg/mL. Peak and trough or random level has been ordered for: @1430. Pharmacy will continue to follow and will adjust dose/frequency as necessary. Thank you
--- NOTE | 2017-04-09 15:10 | DIAGNOSTIC IMAGING REPORT ---
LUNG IMAGING VQ CLINICAL HISTORY: 61 years-old Male presenting with SOB; Hypoxia 80%, multifocal pulmonary opacities. TECHNIQUE: Immediately following the inhalation of 31.4 mCi of technetium 99 M DTPA for the ventilation scan and the intravenous administration of 5 mCi of technetium 99 M MAA for the perfusion scan, anterior, oblique, lateral, and posterior views of the chest were obtained. Modified PIOPED II criteria were utilized for assessment. COMPARISON: Correlation made to CT chest performed earlier the same day. FINDINGS: Perfusion of both lungs is preserved without evidence of a defect. Photopenic defect on ventilation in the left lower lobe involving the lateral basal and posterior basal segments compatible with left pleural effusion. Similarly, photopenic defect in the expected region of the lateral basal and posterior basal right lower lobe compatible with right pleural effusion. Deposition of inhaled radiotracer in the central airways, right greater than left, which is likely a function of better aeration in the right lung secondary to perihilar left lung consolidation. No mismatched defects to suggest pulmonary embolus. Reference: Modified PIOPED 2 criteria Normal: No perfusion defects. Very low likelihood ratio: Nonsegmental, perfusion defect less than chest x-ray lesion, 1-3 small segmental defects, solitary triple matched defect (< or = 1 segment) in mid or upper lung, stripe sign, solitary large pleural effusion, greater than or equal to 2 matched defects with regionally normal chest x-ray. High likelihood ratio: Greater than or equal to 2 large mismatch segmental defects. Nondiagnostic: All other findings. IMPRESSION: 1. Normal. Electronically signed by: Loyd Horne M.D. 04/09/2017 3:09 PM Dictated Date/Time: 04/09/2017 3:01 PM
[2017-04-09] MEDS ORDERED: METOPROLOL TARTRATE 1 MG/ML VIAL IV STA (15:35)
[2017-04-09 18:11] VITALS: BP 160/80; PULSE 98
[2017-04-09] MEDS ORDERED: NURSING VERBAL MED ORDER ONE (18:15)
[2017-04-09] MEDS ORDERED: PRED-301 PO (18:59)
[2017-04-09] MEDS ORDERED: METO1TAB31 PO (19:09)
[2017-04-09 19:31] VITALS: BP 175/71; PULSE 110; TEMP 36.9; O2SAT 92
[2017-04-09] MEDS: IPRATROPIUM BROMIDE NEB SOLN 0.02% 2.5 ML VIAL INH SCH (19:40)
[2017-04-09] MEDS: LEVALBUTEROL 1.25MG/3ML NEB INH SCH (19:40)
[2017-04-09 19:57] VITALS: PULSE 88; O2SAT 95
[2017-04-09] MEDS: PIPERACILL/TAZOBAC IV 3.375 GM in DEXTROSE 5% 100ML 100 ML IV SCH (20:42)
[2017-04-09] MEDS ORDERED: VANCOMYCIN INJ 1,000 MG in SODIUM CHLORIDE 0.9% 250ML 250 ML IV SCH (21:00)
[2017-04-09] MEDS ORDERED: METOPROLOL SUCC 25MG EXT REL TAB PO SCH (21:00)
[2017-04-09] MEDS: FERROUS SULFATE 325 MG TAB PO SCH (21:17)
[2017-04-09] MEDS: BOOST GLUCOSE CONTROL PO SCH (21:17)
[2017-04-09] MEDS: SIMVASTATIN 20 MG TAB PO SCH (21:18)
[2017-04-09] MEDS: METOPROLOL SUCC 50MG EXT REL TAB PO SCH (21:20)
[2017-04-09] MEDS: INSULIN GLARGINE SOLOSTAR 100 UNITS/ML 3 ML PEN SC SCH (21:24)
[2017-04-09] MEDS: HEPARIN SOD 5000 UNIT/0.5 ML CARP SQ SCH (21:24)
[2017-04-10] VITALS (12 sets, daily range): BP systolic 154–175; BP diastolic 71–94; PULSE 81–107; TEMP 36.8–37.6; O2SAT 93–99
[2017-04-10] MEDS: HYDROmorphone INJ 1 MG/ML SYR IV PRN ×4 (01:00→17:10)
[2017-04-10] MEDS: PIPERACILL/TAZOBAC IV 3.375 GM in DEXTROSE 5% 100ML 100 ML IV SCH ×3 (04:20→20:37)
[2017-04-10 06:57] LABS: HEMATOCRIT 24.3 % (42-52); MEAN CELL VOLUME 84.1 fL (80-100); MEAN CORPUSCULAR HEMOGLOBIN 26.6 pg (25-34); MEAN CORPUSCULAR HGB CONC 31.7 g/dl (32-36); MEAN PLATELET VOLUME 9.4 fL (7.4-10.4); PLATELET COUNT 215 K/uL (130-400); RED BLOOD COUNT 2.89 M/uL (4.7-6.1); WHITE BLOOD COUNT 7.24 K/uL (4.8-10.8)
[2017-04-10] MEDS: LEVALBUTEROL 1.25MG/3ML NEB INH SCH ×3 (07:00→19:01)
[2017-04-10] MEDS: IPRATROPIUM BROMIDE NEB SOLN 0.02% 2.5 ML VIAL INH SCH ×3 (07:00→19:01)
[2017-04-10 07:34] LABS: BUN/CREATININE RATIO 14.8 (10-20); CALCIUM 8.4 mg/dl (8.5-10.1); CREATININE 3.6 mg/dl (0.60-1.40); MAGNESIUM 2.3 mg/dl (1.8-2.4); POTASSIUM 3.5 mmol/L (3.5-5.1)
[2017-04-10] MEDS: INSULIN ASPART 100 UNITS/ML 3 ML PEN SC SCH ×4 (08:57→20:31)
[2017-04-10] MEDS: CLOTRIMAZOLE 10 MG TROCHE MT SCH ×4 (08:58→20:34)
[2017-04-10] MEDS: ASPIRIN 81 MG ECTAB PO SCH (08:58)
[2017-04-10] MEDS: FERROUS SULFATE 325 MG TAB PO SCH ×2 (08:59→20:34)
[2017-04-10] MEDS: NYSTATIN SUSP 500,000 U/5 ML UDC PO SCH ×4 (08:59→20:33)
[2017-04-10] MEDS: ESCITALOPRAM OXALATE 10 MG TAB PO SCH (08:59)
[2017-04-10] MEDS ORDERED: INSULIN GLARGINE SOLOSTAR 100 UNITS/ML 3 ML PEN SC SCH (09:00)
[2017-04-10] MEDS: HEPARIN SOD 5000 UNIT/0.5 ML CARP SQ SCH ×2 (09:00→20:30)
[2017-04-10] MEDS: AMLODIPINE BESYLATE 5 MG TAB PO SCH (09:00)
[2017-04-10] MEDS: DOCUSATE SODIUM/SENNA 50/8.6MG TAB PO SCH (09:01)
[2017-04-10] MEDS: METOPROLOL SUCC 50MG EXT REL TAB PO SCH ×2 (09:01→20:34)
[2017-04-10] MEDS: BOOST GLUCOSE CONTROL PO SCH ×2 (09:50→17:08)
[2017-04-10] MEDS ORDERED: FUROSEMIDE INJ 80 MG in SYRINGE 0 ML IV SCH (10:00)
--- NOTE | 2017-04-10 10:14 | Hospitalist Progress Note ---
Hospitalist Progress Note Date of Service Apr 10, 2017. (Jaimie Beltran CRNP) Subjective Pt evaluation today including: conversation w/ patient, physical exam, chart review, lab review, review of studies, conversation w/ technical marketing consultant, review of inpatient medication list Pain: right flank pain wrapping to right back at costovertebral angle Voiding: no voiding problems Saw patient at bedside, complains of difficulty breathing and persistent right flank pain. 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.), No chest pain, No orthopnea, No edema, No palpitations Abdomen: + pain, + problem reported (loose stools), No nausea, No vomiting Neurologic: No problem reported Endo: No problem reported Skin: No problem reported All Other Systems: Reviewed and Negative (Jaimie Beltran CRNP) Medications Medications (Trade) Dose Ordered Sig/Edward Route Start Time Stop Time Status Last Admin Dose Admin Heparin Sodium (Porcine) (Heparin Sq 5000 Unit/0.5ml) 5,000 unit Q12 SQ 04/09/17 21:00 05/09/17 20:59 04/10/17 09:00 5,000 UNIT Amlodipine Besylate (Norvasc Tab) 10 mg DAILY PO 04/10/17 09:00 05/10/17 08:59 04/10/17 09:00 10 MG Escitalopram Oxalate (Lexapro Tab) 10 mg DAILY PO 04/10/17 09:00 05/10/17 08:59 04/10/17 08:59 10 MG Ferrous Sulfate (Feosol Tab) 325 mg BID PO 04/09/17 21:00 05/09/17 20:59 04/10/17 08:59 325 MG Insulin Glargine (Lantus Solostar Pen) 14 units QPM SC 04/09/17 21:00 05/09/17 20:59 04/09/17 21:24 14 UNITS Prednisone (PredniSONE TAB) 5 mg DAILY PO 04/10/17 09:00 05/10/17 08:59 04/10/17 09:01 5 MG Senna/Docusate Sodium (Senokot S Tab) 1 tab DAILY PO 04/10/17 09:00 10/18/17 08:59 04/10/17 09:01 1 TAB Simvastatin (Zocor Tab) 20 mg QPM PO 04/09/17 21:00 05/09/17 20:59 04/09/17 21:18 20 MG Terazosin HCl (Hytrin Cap) 5 mg HS PO 04/09/17 21:00 05/09/17 20:59 04/09/17 21:19 5 MG Piperacillin Sod/ Tazobactam Sod 3.375 gm/Dextrose 115 ml @ 28.75 mls/ hr Q8H IV 04/09/17 20:00 04/16/17 19:59 04/10/17 13:06 28.75 MLS/HR Aspirin (Ecotrin Tab) 81 mg QAM PO 04/10/17 09:00 05/10/17 08:59 04/10/17 08:58 81 MG Levalbuterol (Xopenex 1.25MG/ 3ML Neb) 1.25 mg Q6R INH 04/09/17 21:00 05/09/17 20:59 04/10/17 14:15 1.25 MG Ipratropium [place] (Atrovent 0.02% 0.5MG/2.5ML Neb) 0.5 mg Q6R INH 04/09/17 21:00 05/09/17 20:59 04/10/17 14:15 0.5 MG Metoprolol Tartrate (Lopressor Iv) 5 mg NOW STAT IV 04/09/17 15:35 04/09/17 16:39 DC 04/09/17 16:56 5 MG Metoprolol Succinate (Toprol Xl Tab) 50 mg BID PO 04/09/17 21:00 05/09/17 20:59 04/10/17 09:01 50 MG Hydralazine HCl (Apresoline Tab) 25 mg TID PO 04/09/17 21:00 05/09/17 20:59 04/10/17 14:49 25 MG Enteral Nutritional Formula (Boost Glucose Control) 1 can BID PO 04/09/17 21:00 04/10/17 14:05 DC 04/10/17 09:50 1 CAN Furosemide 80 mg/ Syringe 8 ml @ 4 mls/min TODAY@1000 IV 04/10/17 10:00 04/10/17 11:00 DC 04/10/17 10:33 4 MLS/MIN (Jaimie Beltran CRNP) Objective Vital Signs Date Time Temp Pulse Resp B/P (MAP) Pulse Ox O2 Delivery O2 Flow Rate FiO2 04/10/17 08:12 36.8 84 18 175/94 (121) 96 04/10/17 08:00 Oxymask 6.0 04/10/17 07:00 100 18 95 Mask 7.0 04/10/17 04:01 37.1 107 20 165/80 (108) 97 Oxymask 6.0 04/10/17 04:00 Mask 6.0 04/10/17 00:12 37.6 104 20 169/81 (110) 99 Oxymask 10.0 04/09/17 23:59 Mask 6.0 04/09/17 20:00 Oxymask 8.0 04/09/17 19:57 88 18 95 Mask 8.0 04/09/17 19:31 36.9 110 20 175/71 (105) 92 Mask 10.0 04/09/17 18:11 98 160/80 (106) 04/09/17 16:56 104 181/79 04/09/17 16:00 Mask 8.0 04/09/17 14:54 37.2 104 20 181/79 (113) 98 Mask 5.0 04/09/17 12:00 Mask 8.0 (Jaimie Beltran CRNP) Physical Exam General Appearance: + mild distress (appears tired, becomes visibly dyspneic without oxygen on) Eyes: normal inspection Respiratory/Chest: chest non-tender, lungs clear, normal breath sounds Cardiovascular: regular rate, rhythm, no edema, no gallop, no murmur Abdomen: normal bowel sounds, soft, + pertinent finding (costovertebral tenderness right side, right abdominal tenderness) Neurologic/Psychiatric: alert, oriented x 3 Skin: normal color, warm/dry (Jaimie Beltran CRNP) Laboratory Results 04/10/17 06:29 04/10/17 06:29 Test 04/09/17 09:55 04/09/17 11:46 04/09/17 21:05 04/10/17 00:00 Urine Color YELLOW Urine Appearance CLEAR (CLEAR) Urine pH 5.0 (4.5-7.5) Urine Specific [place] 1.023 (1.000-1.030) Urine Protein 3+ (NEG) Urine Glucose (UA) NEG (NEG) Urine Ketones NEG (NEG) Urine Occult Blood TRACE (NEG) Urine Nitrite NEG (NEG) Urine Bilirubin NEG (NEG) Urine Urobilinogen NEG (NEG) Urine Leukocyte Esterase NEG (NEG) Urine WBC (Auto) 1-5 /hpf (0-5) Urine RBC (Auto) 0-4 /hpf (0-4) Urine Hyaline Casts (Auto) 1-5 /lpf (0-5) Urine Epithelial Cells (Auto) 10-20 /lpf (0-5) Urine Bacteria (Auto) NEG (NEG) Immature Granulocyte % (Auto) 0.3 % White Blood Count 9.17 K/uL (4.8-10.8) Red Blood Count 3.06 M/uL (4.7-6.1) Hemoglobin 8.2 g/dL (14.0-18.0) Hematocrit 25.6 % (42-52) Mean Corpuscular Volume 83.7 fL (80-100) Mean Corpuscular Hemoglobin 26.8 pg (25-34) Mean Corpuscular Hemoglobin Concent 32.0 g/dl (32-36) Platelet Count 193 K/uL (130-400) Mean Platelet Volume 10.0 fL (7.4-10.4) Neutrophils (%) (Auto) 77.6 % Lymphocytes (%) (Auto) 10.0 % Monocytes (%) (Auto) 10.5 % Eosinophils (%) (Auto) 1.4 % Basophils (%) (Auto) 0.2 % Neutrophils # (Auto) 7.11 K/uL (1.4-6.5) Lymphocytes # (Auto) 0.92 K/uL (1.2-3.4) Monocytes # (Auto) 0.96 K/uL (0.11-0.59) Eosinophils # (Auto) 0.13 K/uL (0-0.5) Basophils # (Auto) 0.02 K/uL (0-0.2) Immature Granulocyte # (Auto) 0.03 K/uL (0.00-0.02) Polychromasia 1+ Basophilic Stippling 1+ Prothrombin Time 11.1 SECONDS (9.0-12.0) Prothromb Time International Ratio 1.0 (0.9-1.1) Total Bilirubin 0.4 mg/dl (0.2-1) Aspartate Amino Transf (AST/SGOT) 13 U/L (15-37) Alanine Aminotransferase (ALT/SGPT) 16 U/L (12-78) Alkaline Phosphatase 45 U/L (45-117) Total Protein 5.6 gm/dl (6.4-8.2) Albumin 2.2 gm/dl (3.4-5.0) Globulin 3.4 gm/dl (2.5-4.0) Albumin/Globulin Ratio 0.6 (0.9-2) Troponin I 0.103 ng/ml (0-0.045) Pleural Fluid Source LEFT LUNG Pleural Fluid Color YELLOW Pleural Fluid Appearance CLEAR Pleural Fluid WBC 103 /uL Pleural Fluid RBC < 3000 /uL Pleural Fluid pH 7.43 (7.3-7.4) Pleural Fluid Polynuclear WBCs % 34.7 % Pleural Fluid Mononuclear WBCs % 65.3 % Pleural Fluid Total Protein 1.2 g/dl Pleural Fluid LDH 90 IU Pleural Fluid Glucose 142 mg/dl Pleural Fluid Amylase 15 U/L Test 04/10/17 06:29 04/10/17 10:33 04/10/17 10:42 04/10/17 10:54 Red Blood Count 2.89 M/uL (4.7-6.1) Mean Corpuscular Volume 84.1 fL (80-100) Mean Corpuscular Hemoglobin 26.6 pg (25-34) Mean Corpuscular Hemoglobin Concent 31.7 g/dl (32-36) RDW Standard Deviation 50.1 fL (36.4-46.3) RDW Coefficient of Variation 16.2 % (11.5-14.5) Mean Platelet Volume 9.4 fL (7.4-10.4) Nucleated RBC Absolute Count (auto) 0.00 K/uL (0-0) Nucleated Red Blood Cells % 0.0 % Absolute Reticulocyte Count 0.07 10^6/uL (0.02-0.10) Percent Reticulocyte Count 2.3 % (0.5-2.0) Anion Gap 9.0 mmol/L (3-11) Est Creatinine Clear Calc Drug Dose 23.5 ml/min Estimated GFR () 19.6 Estimated GFR (Non- 16.9 BUN/Creatinine Ratio 14.8 (10-20) Calcium Level 8.4 mg/dl (8.5-10.1) Magnesium Level 2.3 mg/dl (1.8-2.4) Bedside Glucose 153 mg/dl (70-99) Lactic Acid Level 0.7 mmol/L (0.4-2.0) Arterial Blood pH 7.44 (7.35-7.45) Arterial Blood Partial Pressure CO2 41 mmHg (35-46) Arterial Blood Partial Pressure O2 89 mm/Hg (80-95) Arterial Blood HCO3 27 mmol/L (19-24) Arterial Blood Oxygen Saturation 94.4 % (90-95) Arterial Blood Base Excess 2.5 mEq/L (-9-1.8) Arterial Blood Gas Delivery 7 L Ezio Test POS (POS) Date/Time Source Procedure Growth Status 04/10/17 00:00 Pleural Fluid (Thoracentesis) Left Acid Fast Stain Pending Received 04/10/17 00:00 Pleural Fluid (Thoracentesis) Left Mycobacterial Culture Pending Received Last 24 Hours Test 04/09/17 11:46 04/09/17 15:58 04/09/17 15:59 04/09/17 20:16 White Blood Count 9.17 K/uL Red Blood Count 3.06 M/uL Hemoglobin 8.2 g/dL Hematocrit 25.6 % Mean Corpuscular Volume 83.7 fL Mean Corpuscular Hemoglobin 26.8 pg Mean Corpuscular Hemoglobin Concent 32.0 g/dl Platelet Count 193 K/uL Mean Platelet Volume 10.0 fL Neutrophils (%) (Auto) 77.6 % Lymphocytes (%) (Auto) 10.0 % Monocytes (%) (Auto) 10.5 % Eosinophils (%) (Auto) 1.4 % Basophils (%) (Auto) 0.2 % Neutrophils # (Auto) 7.11 K/uL Lymphocytes # (Auto) 0.92 K/uL Monocytes # (Auto) 0.96 K/uL Eosinophils # (Auto) 0.13 K/uL Basophils # (Auto) 0.02 K/uL RDW Standard Deviation 50.4 fL RDW Coefficient of Variation 16.4 % Immature Granulocyte % (Auto) 0.3 % Immature Granulocyte # (Auto) 0.03 K/uL Polychromasia 1+ Basophilic Stippling 1+ Prothrombin Time 11.1 SECONDS Prothromb Time International Ratio 1.0 Sodium Level 142 mmol/L Potassium Level 3.8 mmol/L Chloride Level 107 mmol/L Carbon Dioxide Level 26 mmol/L Anion Gap 9.0 mmol/L Blood Urea Nitrogen 57 mg/dl Creatinine 3.40 mg/dl Est Creatinine Clear Calc Drug Dose 24.9 ml/min Estimated GFR () 21.0 Estimated GFR (Non- 18.2 BUN/Creatinine Ratio 16.8 Bedside Glucose 100 mg/dl 119 mg/dl 110 mg/dl Random Glucose 94 mg/dl Calcium Level 8.4 mg/dl Total Bilirubin 0.4 mg/dl Aspartate Amino Transf (AST/SGOT) 13 U/L Alanine Aminotransferase (ALT/SGPT) 16 U/L Alkaline Phosphatase 45 U/L Total Protein 5.6 gm/dl Albumin 2.2 gm/dl Globulin 3.4 gm/dl Albumin/Globulin Ratio 0.6 Troponin I 0.120 ng/ml Test 04/09/17 21:05 04/10/17 06:29 04/10/17 07:53 04/10/17 07:55 Troponin I 0.103 ng/ml White Blood Count 7.24 K/uL Red Blood Count 2.89 M/uL Hemoglobin 7.7 g/dL Hematocrit 24.3 % Mean Corpuscular Volume 84.1 fL Mean Corpuscular Hemoglobin 26.6 pg Mean Corpuscular Hemoglobin Concent 31.7 g/dl RDW Standard Deviation 50.1 fL RDW Coefficient of Variation 16.2 % Platelet Count 215 K/uL Mean Platelet Volume 9.4 fL Nucleated RBC Absolute Count (auto) 0.00 K/uL Nucleated Red Blood Cells % 0.0 % Absolute Reticulocyte Count 0.07 10^6/uL Percent Reticulocyte Count 2.3 % Sodium Level 141 mmol/L Potassium Level 3.5 mmol/L Chloride Level 105 mmol/L Carbon Dioxide Level 27 mmol/L Anion Gap 9.0 mmol/L Blood Urea Nitrogen 53 mg/dl Creatinine 3.60 mg/dl Est Creatinine Clear Calc Drug Dose 23.5 ml/min Estimated GFR () 19.6 Estimated GFR (Non- 16.9 BUN/Creatinine Ratio 14.8 Random Glucose 96 mg/dl Calcium Level 8.4 mg/dl Magnesium Level 2.3 mg/dl Bedside Glucose 107 mg/dl 108 mg/dl (Guillard, Jaimie ., SUPER[employer]OR [employer]) Assessment and Plan Mr. Christy is an ill appearing 61 year old man here with acute hypoxic respiratory failure due to pneumonia and possible lung metastasis from renal cell carcinoma. Acute hypoxic respiratory failure - supplemental oxygen, bilateral pleural effusions status post thoracentesis 04/10/17 by pulmonary medicine. Fluid appeared transudative and not exudative, no apparent blood. Patient tolerated well. Pneumonia, possible gram negative and MRSA - Continue vancomycin and zosyn and methylprednisolone. Hypertension - continue amlodipine and hydralazine, will reevaluate tomorrow following thoracentesis and further diuresis. Anemia, this is normocytic and likely due to chronic disease, no apparent bleeding and patient does have a history of anemia. No indication for transfusion at this time. Renal cell carcinoma - oncology following, recent treatment with immunologic agent, concern for residual kidney mass seen on CT. Acute on chronic renal failure state IV - avoid nephrotoxins and renal dose medications. DVT prevention - heparin subq and SCDs Code status - full resuscitation Continued [facility] stay due to: multiple IV medications needed, other (continued dyspnea and oxygen requirments) Discharge planning: uncertain (Jaimie Beltran CRNP) [place] Physician Supervision Note: I interviewed and examined the patient. Discussed with Winnie Beltran ASSISTANT PROFESSOR OF COMMUNICATION and agree with findings and plan as documented in the note. Any exceptions or clarifications are listed here: None Patient is seen in 2 occasions with both Jaimie and Dieter Brown, the patient is markedly short of breath but did improve after thoracentesis of 1 L of a straw- colored fluid removed by Dr. Ferreira initial analysis suggests this to be transudate of as it was initial concern this could be malignant or infectious ex The patient is currently being treated for pneumonia and likely may require thoracentesis of the opposite side on April 11 signs vital signs show profound hypoxia and stable bp cardiac exam is tachycardic with exertion pre thoracentesis the patient had bilateral dullness to percussion and decreased breath with the bases 61-year-old male with metastatic renal cell carcinoma here with shortness of breath and profound pleural effusions this likely may be based upon renal failure in combination with poor serum protein, continue to supplement oxygen consider thoracentesis again on the with fluid analysis and volume management decision for dialysis may need to be undertaken as remaining kidneys function is poor Documented By: Greyson Mabry (Greyson Mabry M.D.)
[2017-04-10 11:09] LABS: ARTERIAL BLD GAS O2 SATURATION 94.4 % (90-95); ARTERIAL BLOOD GAS BASE EXCESS 2.5 mEq/L (-9-1.8); ARTERIAL BLOOD GAS HCO3 27 mmol/L (19-24); ARTERIAL BLOOD GAS PO2 89 mm/Hg (80-95); ARTERIAL BLOOD GAS pH 7.44 (7.35-7.45)
[2017-04-10 11:15] LABS: ALLEN TEST POS (POS)
[2017-04-10 11:17] LABS: O2 ADMINISTRATION 7 L
--- NOTE | 2017-04-10 11:59 | Pulmonary Consultation ---
History General Date of Service: Apr 10, 2017. Chief Complaint: SOB Stated Complaint: Renal Failure, Pneumonia HPI Patient is a 61 yo male with history of Renal Cell CA (clear cell and papillary ) s/p left nephrectomy with lymph node resection (2015), recurrent kimmie disease in the caridad-aortic region as well as near the hilum on the left now on chemotherapy with Opdivo, stage 4 CKD, Type 2 DM, HTN, and Hyperlipidemia. Patient is continuing chemotherapy but is also following with Dr. Avalos to assess for possible lymph node resection pending response to chemo. Patient was admitted to [facility] from [facility] for concerns of SOB and hypoxia. He has SOB chronically on and off but recently noted worsening of symptoms. He was febrile upon presentation to [facility] with a temp of 101 F and SaO2 of 80% on room air. Patient states that the SOB started about 2 days prior to admission at which time it acutely worsened. He has been feeling slightly weak and tired for a long time. He complains of some mild left upper chest pain. No diarrhea, but has had some loose stool since admission. Patient states that he has johnson no sputum production today. Since admission to [facility]: Patient is currently on OxyMask at 7 L O2 supplementation. He continues to feel SOB today. Chest X-Ray 04/09: L>R perihilar consolidation Abdominal CT: right perinephric fat stranding, hyperdense renal lesion, diverticulosis, increase in size of the retroperitoneal lymphadenopathy, moderate b/l pleural effusions, development of peribronchial consolidation in left lower lobe and groundglass consolidation in the lingual concerning for infection. Lung VQ 04/09: Normal Chest CT 04/09: peribronchovascular consolidation especially in TERRENCE but also noted in RUL and LLL. Moderate b/l pleural effusions. Favored diagnosis of pulmonary edema. Images all viewed. Labs 04/10: WBC 7.24 Hgb 7.7 Hct 24.3 Percent Retic 2.3, Absolute 0.07 Troponin 0.120 initially 0.103 Creatinine 3.6, BUN 53 Magnesium 2.[address] Norwood, Dr. Mata, and Dr. Avalos as outpatient. Outpatient records reviewed in detail. Historian: patient Onset: just prior to arrival Severity: moderate Complaint Status: persistent Review of Systems Constitutional: reports: fever (upon presentation), denies: chills Eyes: reports: other ("puffy eyes"), denies: visual changes ENT: denies: loss of hearing, sore throat Cardiovascular: reports: chest pain (left upper chest) Respiratory: reports: cough (on and off but nothing currently), shortness of breath, wheezing, STEIN Gastrointestinal: reports: diarrhea (loose stools since admission, no watery diarrhea), denies: constipation Genitourinary - Male: reports: other (recent left nephrectomy due to RCC), denies: dysuria Musculoskeletal: reports: other (mild edema b/l LE on and off at home- none currently) Neurologic: reports: other (severe bilateral lower extremity neuropathy, pins & needles) All Other Symptoms All Other Systems: Reviewed and Negative Past Medical History Past Medical History: Medical Problems: (1) Abdominal pain (2) Acute kidney injury (3) Anemia (4) Clear cell adenocarcinoma of left kidney (5) Colitis (6) H/O unilateral nephrectomy (7) Hypertension (8) Kidney disease, chronic, stage IV (GFR 15-29 ml/min) (9) Pneumonia (10) Pyelonephritis (11) Renal mass, left (12) Shortness of breath Surgical: left nephrectomy with lymph node resection Family History Cervical cancer Diabetes mellitus Heart disease Hypertension Myocardial infarction Pancreatic cancer Prostate cancer Social History Hx Tobacco Use In Past Year?: No Smoking Status: Never Smoker Marital status: single Housing status: lives alone Occupational Status: retired Immunizations History of Influenza Vaccine: Yes Influenza Vaccine Date: May 14, 2015 History of Tetanus Vaccine?: Yes Tetanus Immunization Date: Sep 14, 2011 History of Pneumococcal: Yes Pneumococcal Date: Sep 14, 2013 History of Hepatitis B Vaccine: No Date Of Other Immunizations: Sep 14, 2013 Allergies Coded Allergies: Iodinated Diagnostic Agents (Verified Allergy, Unknown, oil based, severe headaches, 10/27/16) EVENT OCCURED IN 1971, PT STATES HE HAS HAD 3 DIFFERENT WATER BASED IVP DYES WITH NO ISSUE Current Medications Reported Home Medications Medications Dose Route/Sig Max Daily Dose Days Date Category Toprol Xl (Metoprolol Succinate) 25 Mg Tab 25 Mg PO BID 04/09/17 Rx Prednisone 5 Mg Tab 5 Mg PO DAILY 30 04/09/17 Rx Apresoline (Hydralazine Hcl) 100 Mg Tab 100 Mg PO TID 30 03/23/17 Rx Senokot S (Senna/Docusate Sodium) 1 Tab Tab 1 Tab PO DAILY 30 03/22/17 Rx Sodium Bicarbonate 650 Mg Tab 650 Mg PO DAILY 30 03/22/17 Rx Miralax (Polyethylene) 17 Gm Pow 17 Gm PO DAILY PRN 10 03/22/17 Rx Lactinex Granules (Lactobacillus Acidophilus) 1 Gm Pack 1 Gm PO TIDM 10 03/22/17 Rx Calcitriol 0.25 Mcg Cap 0.25 Mcg PO 3XWK 03/09/17 Reported Ferrous Sulfate 325 Mg Tab 325 Mg PO BID 03/09/17 Reported Opdivo (Nivolumab) 40 Mg/4 Ml Inj 40 Mg IV Q14D 03/09/17 Reported Humalog Kwikpen (Insulin Lispro (Human)) 100 Unit/Ml Inj 10-20 SC AFTER DINNER 10/27/16 Reported Lexapro (Escitalopram Oxalate) 10 Mg Tab 10 Mg PO DAILY 10/27/16 Reported Lantus (Insulin Glargine) Vial 14 SC QPM 12/03/15 Reported Norvasc (Amlodipine Besylate) 10 Mg Tab 10 Mg PO DAILY 11/05/15 Reported [Aspirin] 81 Mg PO DAILY 10/19/15 Reported Hytrin (Terazosin HCl) 5 Mg Cap 5 Mg PO HS 09/10/15 Reported Zocor (Simvastatin) 20 Mg Tab 20 Mg PO QPM 09/10/15 Reported Physical Physical Exam Vital Signs: Date Time Temp Pulse Resp B/P (MAP) Pulse Ox O2 Delivery O2 Flow Rate FiO2 04/10/17 08:12 36.8 84 18 175/94 (121) 96 04/10/17 08:00 Oxymask 6.0 04/10/17 07:00 100 18 95 Mask 7.0 04/10/17 04:01 37.1 107 20 165/80 (108) 97 Oxymask 6.0 04/10/17 04:00 Mask 6.0 04/10/17 00:12 37.6 104 20 169/81 (110) 99 Oxymask 10.0 04/09/17 23:59 Mask 6.0 04/09/17 20:00 Oxymask 8.0 04/09/17 19:57 88 18 95 Mask 8.0 04/09/17 19:31 36.9 110 20 175/71 (105) 92 Mask 10.0 04/09/17 18:11 98 160/80 (106) 04/09/17 16:56 104 181/79 04/09/17 16:00 Mask 8.0 04/09/17 14:54 37.2 104 20 181/79 (113) 98 Mask 5.0 04/09/17 12:00 Mask 8.0 General: Patient is awake and cooperative. Respiratory distress noted on exam. Head: Normocephalic, Atraumatic. ENT: PERRLA, No discharge, EOMI, Sclera normal. Some edema around eyes Neck: Normal ROM. Trachea midline. Respiratory: Severely diminished breath sounds B/L bases. Some mild accessory muscle use. OxyMask in place- 7L O2 currently Cardiovascular: Regular rate and rhythm. No murmur appreciate. Normal S1/S2. Abdomen: Nontender to palpation. Normal bowel sounds hear throughout. No guarding. Abdomen is soft and nontender Back: Normal inspection. Extremities: No edema, cyanosis. Normal ROM Neuro: Alert, Oriented x 3. CN II-XII grossly intact. Sensation and motor function grossly intact. Psych: Mood and affect are normal. U/S of chest wall on exam reveals moderate pleural effusion of the left lung base and small pleural effusion of right lung. Diagnostics Labs Results Past 24 Hours Test 04/09/17 11:46 04/09/17 15:58 04/09/17 15:59 04/09/17 20:16 Range/Units White Blood Count 9.17 4.8-10.8 K/uL Red Blood Count 3.06 4.7-6.1 M/uL Hemoglobin 8.2 14.0-18.0 g/dL Hematocrit 25.6 42-52 % Mean Corpuscular Volume 83.7 80-100 fL Mean Corpuscular Hemoglobin 26.8 25-34 pg Mean Corpuscular Hemoglobin Concent 32.0 32-36 g/dl Platelet Count 193 130-400 K/uL Mean Platelet Volume 10.0 7.4-10.4 fL Neutrophils (%) (Auto) 77.6 % Lymphocytes (%) (Auto) 10.0 % Monocytes (%) (Auto) 10.5 % Eosinophils (%) (Auto) 1.4 % Basophils (%) (Auto) 0.2 % Neutrophils # (Auto) 7.11 1.4-6.5 K/uL Lymphocytes # (Auto) 0.92 1.2-3.4 K/uL Monocytes # (Auto) 0.96 0.11-0.59 K/uL Eosinophils # (Auto) 0.13 0-0.5 K/uL Basophils # (Auto) 0.02 0-0.2 K/uL RDW Standard Deviation 50.4 36.4-46.3 fL RDW Coefficient of Variation 16.4 11.5-14.5 % Immature Granulocyte % (Auto) 0.3 % Immature Granulocyte # (Auto) 0.03 0.00-0.02 K/uL Polychromasia 1+ Basophilic Stippling 1+ Prothrombin Time 11.1 9.0-12.0 SECONDS Prothromb Time International Ratio 1.0 0.9-1.1 Sodium Level 142 136-145 mmol/L Potassium Level 3.8 3.5-5.1 mmol/L Chloride Level 107 98-107 mmol/L Carbon Dioxide Level 26 21-32 mmol/L Anion Gap 9.0 3-11 mmol/L Blood Urea Nitrogen 57 7-18 mg/dl Creatinine 3.40 0.60-1.40 mg/dl Est Creatinine Clear Calc Drug Dose 24.9 ml/min Estimated GFR () 21.0 Estimated GFR (Non- 18.2 BUN/Creatinine Ratio 16.8 10-20 Bedside Glucose 100 119 110 70-99 mg/dl Random Glucose 94 70-99 mg/dl Calcium Level 8.4 8.5-10.1 mg/dl Total Bilirubin 0.4 0.2-1 mg/dl Aspartate Amino Transf (AST/SGOT) 13 15-37 U/L Alanine Aminotransferase (ALT/SGPT) 16 12-78 U/L Alkaline Phosphatase 45 45-117 U/L Total Protein 5.6 6.4-8.2 gm/dl Albumin 2.2 3.4-5.0 gm/dl Globulin 3.4 2.5-4.0 gm/dl Albumin/Globulin Ratio 0.6 0.9-2 Troponin I 0.120 0-0.045 ng/ml Test 04/09/17 21:05 04/10/17 06:29 04/10/17 07:53 04/10/17 07:55 Range/Units Troponin I 0.103 0-0.045 ng/ml White Blood Count 7.24 4.8-10.8 K/uL Red Blood Count 2.89 4.7-6.1 M/uL Hemoglobin 7.7 14.0-18.0 g/dL Hematocrit 24.3 42-52 % Mean Corpuscular Volume 84.1 80-100 fL Mean Corpuscular Hemoglobin 26.6 25-34 pg Mean Corpuscular Hemoglobin Concent 31.7 32-36 g/dl RDW Standard Deviation 50.1 36.4-46.3 fL RDW Coefficient of Variation 16.2 11.5-14.5 % Platelet Count 215 130-400 K/uL Mean Platelet Volume 9.4 7.4-10.4 fL Nucleated RBC Absolute Count (auto) 0.00 0-0 K/uL Nucleated Red Blood Cells % 0.0 % Absolute Reticulocyte Count 0.07 0.02-0.10 10^6/uL Percent Reticulocyte Count 2.3 0.5-2.0 % Sodium Level 141 136-145 mmol/L Potassium Level 3.5 3.5-5.1 mmol/L Chloride Level 105 98-107 mmol/L Carbon Dioxide Level 27 21-32 mmol/L Anion Gap 9.0 3-11 mmol/L Blood Urea Nitrogen 53 7-18 mg/dl Creatinine 3.60 0.60-1.40 mg/dl Est Creatinine Clear Calc Drug Dose 23.5 ml/min Estimated GFR () 19.6 Estimated GFR (Non- 16.9 BUN/Creatinine Ratio 14.8 10-20 Random Glucose 96 70-99 mg/dl Calcium Level 8.4 8.5-10.1 mg/dl Magnesium Level 2.3 1.8-2.4 mg/dl Bedside Glucose 107 108 70-99 mg/dl Test 04/10/17 10:18 04/10/17 10:33 04/10/17 10:42 Range/Units Bedside Glucose 153 70-99 mg/dl Diagnostic Radiology VS Reviewed: Temp up to 37.6 C over night HR elevated to 104 over night as well- now 84 RR 18-20 BP 165/80-175/94 SaO2 95% on 7 L OxyMask CXR 04/09: IMPRESSION: 1. Left greater than right perihilar consolidation could represent pulmonary edema or infection. Abdominal/Pelvic CT 04/09: IMPRESSION: 1. No evidence of right nephrolithiasis. Slightly increased right perinephric fat stranding is nonspecific. Correlate with urinalysis to exclude infection. No right hydronephrosis. 2. Slight interval increase in size of the hyperdense renal lesion. This is incompletely characterized without intravenous contrast and could represent a hyperdense cyst containing hemorrhagic or proteinaceous debris versus a solid renal neoplasm. This was previously photopenic on PET CT from 05/02/2016, which argues against a solid lesion. 3. Diverticulosis with postsurgical changes of colocolonic anastomosis. 4. Continued interval increase in size of retroperitoneal lymphadenopathy compatible with regression of metastatic disease. 5. Increasing now moderate bilateral pleural effusions with associated dependent atelectasis. 6. Interval development of peribronchial vascular consolidation in the left lower lobe and nodular groundglass consolidation in the lingula, concerning for an infectious process. CT of Chest: IMPRESSION: 1. Interval development of peribronchovascular consolidation most extensively involving the left upper lobe but also noted in the right upper and left lower lobes. Additionally, new interlobular septal thickening and new bilateral moderate pleural effusions. The combination of these findings could suggest pulmonary edema, however, this usually preferentially involves the dependent lung and lower lobes. Nonetheless, pulmonary edema is the favored diagnosis, although infection and hemorrhage cannot be excluded. Given the presence of superimposed solid nodules, follow-up after treatment is recommended to ensure resolution. EKG EKG 04/10: NSR, possible Left atrial enlargement- EKG viewed Impression Assessment and Plan Acute Hypoxic Respiratory Failure B/L Pleural effusions- ?infectious versus CHF versus metastatic disease Infiltrative/Consolidative Lung Process- possible infection versus pulmonary edema versus metastatic disease Renal Cell Carcinoma with lymph node metastasis CKD 1. U/S of chest wall- completed 2. Left-sided thoracentesis- completed by Dr. Ferreira- see procedure note 3. Will send for fluid analysis, culture, and pathology 4. Continue O2 supplementation via OxyMask 5. ABG ordered & Completed- pH 7.44 pCO2 41 pO2 89 HCO3 27 (H) O2 saturation 94.4 Base Excess 2.5 (H) 6. Continue O2 Supplementation to keep SaO2 >88% 7. Repeat CT scan to assess for possible trapped lung 8. Continue empiric abx pending pleural fluid culture and improvement 9. Continue Atrovent & Xopenex. Pulmonary will follow The patient has been seen and examined this case reviewed. Thoracic ultrasound performed showing large left-sided loculated pleural effusion and thoracentesis performed with excellent signs of reexpansion via ultrasound criteria as well as repeat CT noncontrast of the chest. Left upper lobe infiltrate which is notably different than previous admission/CT scan performed 12/02/2016 which leads to more infectious etiology. This time the pleural effusion appears to be transitive initial continue to monitor.
--- NOTE | 2017-04-10 12:08 | Oncology Consultation ---
Oncology/Heme Consultation Date of Consultation: Apr 10, 2017. Attending Physician: Lamberto Eli M.D. Reason for Consultation: Pulmonary infiltrates history of metastatic renal cell carcinoma History of Present Illness Mr. Christy has a history of left renal cell carcinoma. First diagnosed and resected in September 2015. Many lymph nodes were involved at that time. Within a short period of time further lymphadenopathy was noted and the patient began on a TK inhibitor. He would develop significant proteinuria with worsening renal function. Since that time he has been treated with a PD1 inhibitor nivolumab. He was hospitalized recently with abdominal pain felt to be either secondary to perhaps a colitis from the PD1 inhibitor versus diverticulitis and was treated for both. He has been on decreasing doses of steroids. He received another dose of nivolumab on April 07. It was hoped that the enlarging lymph nodes seen on CT might represent pseudo-progression at that time. He is admitted now with pulmonary infiltrates and increasing pleural fluid. Lymph nodes on CT exam with this admission seen in the abdomen are more enlarged when compared to those seen 1 month ago. Clearly has disease has progressed. He is admitted with hypoxia and again pulmonary infiltrates and new pleural fluid. The portion of his lung that could be seen on abdominal CT scan from mid February and compared to this admission CT does show pleural fluid that is new particularly on the left but seen on both sides. Again there is also a hint of mediastinal or hilar adenopathy seen in addition. He denies fever or productive cough. Past Medical/Surgical History Medical Problems: (1) Acute dyspnea Status: Acute (2) Chronic kidney disease Status: Acute (3) Renal cell carcinoma Status: Acute Family History Cervical cancer Diabetes mellitus Heart disease Hypertension Myocardial infarction Pancreatic cancer Prostate cancer Social History Smoking Status: Never Smoker Smokeless Tobacco Use: No Alcohol Use: none Drug Use: none Marital Status: single Occupation Status: retired Allergies Coded Allergies: Iodinated Diagnostic Agents (Verified Allergy, Unknown, oil based, severe headaches, 10/27/16) EVENT OCCURED IN 1971, PT STATES HE HAS HAD 3 DIFFERENT WATER BASED IVP DYES WITH NO ISSUE Home Medications Scheduled Amlodipine (Norvasc), 10 MG PO DAILY Calcitriol (Calcitriol), 0.25 MCG PO 3XWK Escitalopram (Lexapro), 10 MG PO DAILY Ferrous Sulfate (Ferrous Sulfate), 325 MG PO BID Hydralazine Hcl (Apresoline), 100 MG PO TID Insulin Glargine (Lantus), 14 SC QPM Insulin Lispro (Human) (Humalog Kwikpen), 10-20 SC AFTER DINNER Lactobacillus Acidophilus (Lactinex Granules), 1 GM PO TIDM Metoprolol Succinate (Toprol Xl), 25 MG PO BID Nivolumab (Opdivo), 40 MG IV Q14D Prednisone (Prednisone), 5 MG PO DAILY Senna/Docusate Sod (Senokot S), 1 TAB PO DAILY Simvastatin (Zocor), 20 MG PO QPM Sodium Bicarbonate (Sodium Bicarbonate), 650 MG PO DAILY Terazosin (Hytrin), 5 MG PO HS [Aspirin], 81 MG PO DAILY Scheduled PRN Polyethylene (Miralax), 17 GM PO DAILY PRN for Constipation Current Inpatient Medications Current Inpatient Medications Medications (Trade) Dose Ordered Sig/Edward Route Start Time Stop Time Status Last Admin Dose Admin Heparin Sodium (Porcine) (Heparin Sq 5000 Unit/0.5ml) 5,000 unit Q12 SQ 04/09/17 21:00 05/09/17 20:59 04/10/17 09:00 5,000 UNIT Acetaminophen (Tylenol Tab) 650 mg Q4H PRN PO 04/09/17 10:30 05/09/17 10:29 Al Hydrox/Mg Hydrox/Simethicone (Maalox Max Susp) 15 ml Q4H PRN PO 04/09/17 10:30 05/09/17 10:29 Magnesium Hydroxide (Milk Of Magnesia Susp) 30 ml Q12H PRN PO 04/09/17 10:30 05/09/17 10:29 Ondansetron HCl (Zofran Inj) 4 mg Q6H PRN IV 04/09/17 10:30 05/09/17 10:29 Polyethylene (Miralax Powder Packet) 17 gm DAILY PRN PO 04/09/17 10:30 05/09/17 10:29 Insulin Aspart (novoLOG ASPART) SLIDING SCALE If C... ACHS SC 04/09/17 12:30 05/09/17 12:29 04/09/17 21:23 1 UNITS Glucose (Glucose 40% Gel) 15-30 GRAMS 15 GRAMS... UD PRN PO 04/09/17 10:30 05/09/17 10:29 Glucose (Glucose Chew Tab) 4-8 Tablets 4 Tabl... UD PRN PO 04/09/17 10:30 05/09/17 10:29 Dextrose (Dextrose 50% 50ML Syringe) 25-50ML OF 50% DW IV FOR... UD PRN IV 04/09/17 10:30 05/09/17 10:29 Glucagon (Glucagon Inj) 1 mg UD PRN SQ 04/09/17 10:30 05/09/17 10:29 Amlodipine Besylate (Norvasc Tab) 10 mg DAILY PO 04/10/17 09:00 05/10/17 08:59 04/10/17 09:00 10 MG Escitalopram Oxalate (Lexapro Tab) 10 mg DAILY PO 04/10/17 09:00 05/10/17 08:59 04/10/17 08:59 10 MG Ferrous Sulfate (Feosol Tab) 325 mg BID PO 04/09/17 21:00 05/09/17 20:59 04/10/17 08:59 325 MG Insulin Glargine (Lantus Solostar Pen) 14 units QPM SC 04/09/17 21:00 05/09/17 20:59 04/09/17 21:24 14 UNITS Prednisone (PredniSONE TAB) 5 mg DAILY PO 04/10/17 09:00 05/10/17 08:59 04/10/17 09:01 5 MG Senna/Docusate Sodium (Senokot S Tab) 1 tab DAILY PO 04/10/17 09:00 05/10/17 08:59 04/10/17 09:01 1 TAB Simvastatin (Zocor Tab) 20 mg QPM PO 04/09/17 21:00 05/09/17 20:59 04/09/17 21:18 20 MG Terazosin HCl (Hytrin Cap) 5 mg HS PO 04/09/17 21:00 05/09/17 20:59 04/09/17 21:19 5 MG Levofloxacin 750 mg/Prmx 150 ml @ 100 mls/hr Q48H IV 04/09/17 13:00 04/16/17 12:59 04/09/17 13:12 100 MLS/HR Piperacillin Sod/ Tazobactam Sod 3.375 gm/Dextrose 115 ml @ 28.75 mls/ hr Q8H IV 04/09/17 20:00 04/16/17 19:59 04/10/17 04:20 28.75 MLS/HR Aspirin (Ecotrin Tab) 81 mg QAM PO 04/10/17 09:00 05/10/17 08:59 04/10/17 08:58 81 MG Nystatin (Mycostatin Susp) 5 ml QID PO 04/09/17 13:00 04/19/17 12:59 04/10/17 08:59 5 ML Clotrimazole (Mycelex 10MG Christina) 1 christina QID MT 04/09/17 13:00 04/19/17 12:59 04/10/17 08:58 1 CHRISTINA Hydromorphone HCl (Dilaudid Inj) 1 mg Q4 PRN IV 04/09/17 11:45 04/23/17 11:44 04/10/17 10:32 1 MG Piperacillin Sod/ Tazobactam Sod (Consult) 1 ea UD PRN N/A 04/09/17 12:00 05/09/17 11:59 Vancomycin HCl (Consult) 1 ea UD PRN N/A 04/09/17 12:00 05/09/17 11:59 Vancomycin HCl 1250 mg/Sodium Chloride 275 ml @ 125 mls/hr Q36H IV 04/11/17 03:00 04/18/17 02:59 Levalbuterol (Xopenex 1.25MG/ 3ML Neb) 1.25 mg Q6R INH 04/09/17 21:00 05/09/17 20:59 04/10/17 07:00 1.25 MG Ipratropium [place] (Atrovent 0.02% 0.5MG/2.5ML Neb) 0.5 mg Q6R INH 04/09/17 21:00 05/09/17 20:59 04/10/17 07:00 0.5 MG Metoprolol Succinate (Toprol Xl Tab) 50 mg BID PO 04/09/17 21:00 05/09/17 20:59 04/10/17 09:01 50 MG Hydralazine HCl (Apresoline Tab) 25 mg TID PO 04/09/17 21:00 05/09/17 20:59 04/10/17 08:58 25 MG Enteral Nutritional Formula (Boost Glucose Control) 1 can BID PO 04/09/17 21:00 05/09/17 20:59 04/10/17 09:50 1 CAN Review of Systems Constitutional: Negative for weight loss, night sweats, or fever Eyes: Negative for event change of vision ENT: Negative for epistaxis, nasal discharge, sore throat, or deafness Cardiovascular: Negative for chest pain, palpitations, dizziness, diaphoresis Respiratory: As described positive for denies hemoptysis, denies any chest pain Gastrointestinal: Points to the posterior right flank or posterior right CVA area as increasing pain Integumentary (skin): Negative for rash or jaundice discoloration Genitourinary: Negative for urinary frequency, hematuria, or dysuria Neurological: Negative for weakness, seizure activity, headache, or dizziness Lymphatic/Hematologic: Negative for petechiae, bleeding or new adenopathy Musculoskeletal: Negative for new joint or back pain Allergic/Immunologic: Negative for unusual rash or pruritis. Physical Exam Date Time Temp Pulse Resp B/P (MAP) Pulse Ox O2 Delivery O2 Flow Rate FiO2 04/10/17 11:41 37.2 103 18 169/83 (111) 95 04/10/17 08:12 36.8 84 18 175/94 (121) 96 04/10/17 08:00 Oxymask 6.0 04/10/17 07:00 100 18 95 Mask 7.0 04/10/17 04:01 37.1 107 20 165/80 (108) 97 Oxymask 6.0 04/10/17 04:00 Mask 6.0 04/10/17 00:12 37.6 104 20 169/81 (110) 99 Oxymask 10.0 04/09/17 23:59 Mask 6.0 04/09/17 20:00 Oxymask 8.0 04/09/17 19:57 88 18 95 Mask 8.0 04/09/17 19:31 36.9 110 20 175/71 (105) 92 Mask 10.0 04/09/17 18:11 98 160/80 (106) 04/09/17 16:56 104 181/79 04/09/17 16:00 Mask 8.0 04/09/17 14:54 37.2 104 20 181/79 (113) 98 Mask 5.0 04/09/17 12:00 Mask 8.0 Constitutional: vitals are stable. Currently diaphoretic Eyes: Eyes are YSABEL EOMI without conjuctival erythema or icterus. ENT: External examination was negative for masses. Neck: Negative for masses or palpable thyromegaly Respiratory: Lung sounds were generally clear bilaterally Cardiovascular: Heart was RRR without significant murmur, gallops aoe rubs Gastrointestinal: No palpable hepatic or splenomegaly. The abdomen was soft with normal bowel sounds. Lymphatic system: there was no palpable peripheral lymphadenopathy Musculoskeletal System: The musculoskeletal system seemed concordant with age. Skin: The skin was negative for jaundice. Neurologic exam: The exam was negative for any focal findings. Deep tendon reflexes were equal and symmetrical. Psychiatric exam: Was essentially negative with normal mood and effect. Extremities: Negative for edema or erythema Laboratory Results Last 24 Hours Test 04/09/17 15:58 04/09/17 15:59 04/09/17 20:16 04/09/17 21:05 Troponin I 0.120 ng/ml 0.103 ng/ml Bedside Glucose 119 mg/dl 110 mg/dl Test 04/10/17 06:29 04/10/17 07:53 04/10/17 07:55 04/10/17 10:33 White Blood Count 7.24 K/uL Red Blood Count 2.89 M/uL Hemoglobin 7.7 g/dL Hematocrit 24.3 % Mean Corpuscular Volume 84.1 fL Mean Corpuscular Hemoglobin 26.6 pg Mean Corpuscular Hemoglobin Concent 31.7 g/dl RDW Standard Deviation 50.1 fL RDW Coefficient of Variation 16.2 % Platelet Count 215 K/uL Mean Platelet Volume 9.4 fL Nucleated RBC Absolute Count (auto) 0.00 K/uL Nucleated Red Blood Cells % 0.0 % Absolute Reticulocyte Count 0.07 10^6/uL Percent Reticulocyte Count 2.3 % Sodium Level 141 mmol/L Potassium Level 3.5 mmol/L Chloride Level 105 mmol/L Carbon Dioxide Level 27 mmol/L Anion Gap 9.0 mmol/L Blood Urea Nitrogen 53 mg/dl Creatinine 3.60 mg/dl Est Creatinine Clear Calc Drug Dose 23.5 ml/min Estimated GFR () 19.6 Estimated GFR (Non- 16.9 BUN/Creatinine Ratio 14.8 Random Glucose 96 mg/dl Calcium Level 8.4 mg/dl Magnesium Level 2.3 mg/dl Bedside Glucose 107 mg/dl 108 mg/dl 153 mg/dl Test 04/10/17 10:42 04/10/17 10:54 Lactic Acid Level 0.7 mmol/L Arterial Blood pH 7.44 Arterial Blood Partial Pressure CO2 41 mmHg Arterial Blood Partial Pressure O2 89 mm/Hg Arterial Blood HCO3 27 mmol/L Arterial Blood Oxygen Saturation 94.4 % Arterial Blood Base Excess 2.5 mEq/L Arterial Blood Gas Delivery 7 L Ezio Test POS Assessment & Plan Worsening metastatic renal cell carcinoma. Clearly further therapy with the PD1 inhibitor will not be helpful. The pulmonary infiltrates and pleural fluid are new. This could be the result of pneumonitis from his PD1 inhibitor I suppose - versus contribution of fluid overload by renal failure. Alternatively or in addition metastatic renal cell carcinoma might also be responsible or contributing. The review of the CT scans not only show pulmonary infiltrates with incorporated air bronchogram patterns suggesting to me pulmonary edema but in the background there is an occasional small pulmonary nodule that I suspect does represent metastatic disease. With that then I would approach his pulmonary problems with IV steroids 80-100 mg/day of parenteral Solu-Medrol (possible PD-1 related pneumonitis). I have ordered the solumedrol (100 mg a day) have reviewed with nephrology this possibility of this being fluid overload contributed by renal failure and finally I understand that thoracentesis is being considered to drain fluid for cytology to rule out metastatic disease. I informed Mr. Christy today of the progression of his renal cell carcinoma. I stated that we can go back to trying other TK inhibitors but I had to also state that the chances of being able to stabilize the problem are very, very slim and the prognosis is extremely poor. This kind of conversation has been reviewed and done in the past with he and his companions in our clinic. He seemed to understand.
--- NOTE | 2017-04-10 12:44 | Nephrology Progress Note ---
Nephrology Progress Note Date of Service Apr 10, 2017. Chief Complaint F/U for advanced chronic kidney disease. Roland Causey was seen and examined for follow up. Still having rt flank pain and SOB, no overnight fever, chills or headache. Denies voiding symptoms. BP has been relatively high. Renal function stable, cr 3.6 , electrolytes stable. Decent UO. Stable volume status. Review of Systems A complete review of systems was performed. Pertinent positives are noted above. All other systems are negative. Vital Signs Last 8 Hrs Date Time Temp Pulse Resp B/P (MAP) Pulse Ox O2 Delivery O2 Flow Rate FiO2 04/10/17 08:12 36.8 84 18 175/94 (121) 96 04/10/17 08:00 Oxymask 6.0 04/10/17 07:00 100 18 95 Mask 7.0 04/10/17 04:01 37.1 107 20 165/80 (108) 97 Oxymask 6.0 04/10/17 04:00 Mask 6.0 Last Recorded Weight Weight (Kilograms): 88.600 Physical Exam Neurologic/Psych: + abnormal cerebellar tests GENERAL: middle aged male,, AAA x 3, pale-appearing, in mild distress. NECK: Supple, no JVD. RESPIRATORY: decrease B/L at bases, crackles b/l CARDIOVASCULAR: S1, S2 normal, rate rhythm regular. EXTREMITY: No lower extremity edema NEURO: speech fluent. PSYCHIATRY: Normal mood and judgment Family History Cervical cancer Diabetes mellitus Heart disease Hypertension Myocardial infarction Pancreatic cancer Prostate cancer Social History Smokeless Tobacco Use: No Alcohol Use: none Drug Use: none Marital Status: single Housing Status: lives alone Occupation: retired Laboratory Results Past 24 Hours 04/09/17 11:46 Red Blood Count 3.06, Mean Corpuscular Volume 83.7, Mean Corpuscular Hemoglobin 26.8, Mean Corpuscular Hemoglobin Concent 32.0, Mean Platelet Volume 10.0, Neutrophils (%) (Auto) 77.6, Lymphocytes (%) (Auto) 10.0, Monocytes (%) (Auto) 10.5, Eosinophils (%) (Auto) 1.4, Basophils (%) (Auto) 0.2, Neutrophils # (Auto ) 7.11, Lymphocytes # (Auto) 0.92, Monocytes # (Auto) 0.96, Eosinophils # (Auto ) 0.13, Basophils # (Auto) 0.02 04/10/17 06:29 04/09/17 11:46 04/10/17 06:29 Test 04/09/17 09:55 04/09/17 11:46 04/09/17 15:58 04/09/17 15:59 Urine Color YELLOW Urine Appearance CLEAR (CLEAR) Urine pH 5.0 (4.5-7.5) Urine Specific [place] 1.023 (1.000-1.030) Urine Protein 3+ (NEG) Urine Glucose (UA) NEG (NEG) Urine Ketones NEG (NEG) Urine Occult Blood TRACE (NEG) Urine Nitrite NEG (NEG) Urine Bilirubin NEG (NEG) Urine Urobilinogen NEG (NEG) Urine Leukocyte Esterase NEG (NEG) Urine WBC (Auto) 1-5 /hpf (0-5) Urine RBC (Auto) 0-4 /hpf (0-4) Urine Hyaline Casts (Auto) 1-5 /lpf (0-5) Urine Epithelial Cells (Auto) 10-20 /lpf (0-5) Urine Bacteria (Auto) NEG (NEG) White Blood Count 9.17 K/uL (4.8-10.8) Red Blood Count 3.06 M/uL (4.7-6.1) Hemoglobin 8.2 g/dL (14.0-18.0) Hematocrit 25.6 % (42-52) Mean Corpuscular Volume 83.7 fL (80-100) Mean Corpuscular Hemoglobin 26.8 pg (25-34) Mean Corpuscular Hemoglobin Concent 32.0 g/dl (32-36) Platelet Count 193 K/uL (130-400) Mean Platelet Volume 10.0 fL (7.4-10.4) Neutrophils (%) (Auto) 77.6 % Lymphocytes (%) (Auto) 10.0 % Monocytes (%) (Auto) 10.5 % Eosinophils (%) (Auto) 1.4 % Basophils (%) (Auto) 0.2 % Neutrophils # (Auto) 7.11 K/uL (1.4-6.5) Lymphocytes # (Auto) 0.92 K/uL (1.2-3.4) Monocytes # (Auto) 0.96 K/uL (0.11-0.59) Eosinophils # (Auto) 0.13 K/uL (0-0.5) Basophils # (Auto) 0.02 K/uL (0-0.2) RDW Standard Deviation 50.4 fL (36.4-46.3) RDW Coefficient of Variation 16.4 % (11.5-14.5) Immature Granulocyte % (Auto) 0.3 % Immature Granulocyte # (Auto) 0.03 K/uL (0.00-0.02) Polychromasia 1+ Basophilic Stippling 1+ Prothrombin Time 11.1 SECONDS (9.0-12.0) Prothromb Time International Ratio 1.0 (0.9-1.1) Anion Gap 9.0 mmol/L (3-11) Est Creatinine Clear Calc Drug Dose 24.9 ml/min Estimated GFR () 21.0 Estimated GFR (Non- 18.2 BUN/Creatinine Ratio 16.8 (10-20) Bedside Glucose 100 mg/dl (70-99) 119 mg/dl (70-99) Calcium Level 8.4 mg/dl (8.5-10.1) Total Bilirubin 0.4 mg/dl (0.2-1) Aspartate Amino Transf (AST/SGOT) 13 U/L (15-37) Alanine Aminotransferase (ALT/SGPT) 16 U/L (12-78) Alkaline Phosphatase 45 U/L (45-117) Total Protein 5.6 gm/dl (6.4-8.2) Albumin 2.2 gm/dl (3.4-5.0) Globulin 3.4 gm/dl (2.5-4.0) Albumin/Globulin Ratio 0.6 (0.9-2) Troponin I 0.120 ng/ml (0-0.045) Test 04/09/17 20:16 04/09/17 21:05 04/10/17 06:29 04/10/17 07:53 Bedside Glucose 110 mg/dl (70-99) 107 mg/dl (70-99) Troponin I 0.103 ng/ml (0-0.045) Red Blood Count 2.89 M/uL (4.7-6.1) Mean Corpuscular Volume 84.1 fL (80-100) Mean Corpuscular Hemoglobin 26.6 pg (25-34) Mean Corpuscular Hemoglobin Concent 31.7 g/dl (32-36) RDW Standard Deviation 50.1 fL (36.4-46.3) RDW Coefficient of Variation 16.2 % (11.5-14.5) Mean Platelet Volume 9.4 fL (7.4-10.4) Anion Gap 9.0 mmol/L (3-11) Est Creatinine Clear Calc Drug Dose 23.5 ml/min Estimated GFR () 19.6 Estimated GFR (Non- 16.9 BUN/Creatinine Ratio 14.8 (10-20) Calcium Level 8.4 mg/dl (8.5-10.1) Magnesium Level 2.3 mg/dl (1.8-2.4) Test 04/10/17 07:55 04/10/17 09:06 Bedside Glucose 108 mg/dl (70-99) Allergies Coded Allergies: Iodinated Diagnostic Agents (Verified Allergy, Unknown, oil based, severe headaches, 10/27/16) EVENT OCCURED IN 1971, PT STATES HE HAS HAD 3 DIFFERENT WATER BASED IVP DYES WITH NO ISSUE Medications Current Inpatient Medications Medications (Trade) Dose Ordered Sig/Edward Route Start Time Stop Time Status Last Admin Dose Admin Heparin Sodium (Porcine) (Heparin Sq 5000 Unit/0.5ml) 5,000 unit Q12 SQ 04/09/17 21:00 05/09/17 20:59 04/10/17 09:00 5,000 UNIT Acetaminophen (Tylenol Tab) 650 mg Q4H PRN PO 04/09/17 10:30 05/09/17 10:29 Al Hydrox/Mg Hydrox/Simethicone (Maalox Max Susp) 15 ml Q4H PRN PO 04/09/17 10:30 05/09/17 10:29 Magnesium Hydroxide (Milk Of Magnesia Susp) 30 ml Q12H PRN PO 04/09/17 10:30 05/09/17 10:29 Ondansetron HCl (Zofran Inj) 4 mg Q6H PRN IV 04/09/17 10:30 05/09/17 10:29 Polyethylene (Miralax Powder Packet) 17 gm DAILY PRN PO 04/09/17 10:30 05/09/17 10:29 Insulin Aspart (novoLOG ASPART) SLIDING SCALE If C... ACHS SC 04/09/17 12:30 05/09/17 12:29 04/09/17 21:23 1 UNITS Glucose (Glucose 40% Gel) 15-30 GRAMS 15 GRAMS... UD PRN PO 04/09/17 10:30 05/09/17 10:29 Glucose (Glucose Chew Tab) 4-8 Tablets 4 Tabl... UD PRN PO 04/09/17 10:30 05/09/17 10:29 Dextrose (Dextrose 50% 50ML Syringe) 25-50ML OF 50% DW IV FOR... UD PRN IV 04/09/17 10:30 05/09/17 10:29 Glucagon (Glucagon Inj) 1 mg UD PRN SQ 04/09/17 10:30 05/09/17 10:29 Amlodipine Besylate (Norvasc Tab) 10 mg DAILY PO 04/10/17 09:00 05/10/17 08:59 04/10/17 09:00 10 MG Escitalopram Oxalate (Lexapro Tab) 10 mg DAILY PO 04/10/17 09:00 05/10/17 08:59 04/10/17 08:59 10 MG Ferrous Sulfate (Feosol Tab) 325 mg BID PO 04/09/17 21:00 05/09/17 20:59 04/10/17 08:59 325 MG Insulin Glargine (Lantus Solostar Pen) 14 units QPM SC 04/09/17 21:00 05/09/17 20:59 04/09/17 21:24 14 UNITS Prednisone (PredniSONE TAB) 5 mg DAILY PO 04/10/17 09:00 05/10/17 08:59 04/10/17 09:01 5 MG Senna/Docusate Sodium (Senokot S Tab) 1 tab DAILY PO 04/10/17 09:00 05/10/17 08:59 04/10/17 09:01 1 TAB Simvastatin (Zocor Tab) 20 mg QPM PO 04/09/17 21:00 05/09/17 20:59 04/09/17 21:18 20 MG Terazosin HCl (Hytrin Cap) 5 mg HS PO 04/09/17 21:00 05/09/17 20:59 04/09/17 21:19 5 MG Levofloxacin 750 mg/Prmx 150 ml @ 100 mls/hr Q48H IV 04/09/17 13:00 04/16/17 12:59 04/09/17 13:12 100 MLS/HR Piperacillin Sod/ Tazobactam Sod 3.375 gm/Dextrose 115 ml @ 28.75 mls/ hr Q8H IV 04/09/17 20:00 04/16/17 19:59 04/10/17 04:20 28.75 MLS/HR Aspirin (Ecotrin Tab) 81 mg QAM PO 04/10/17 09:00 05/10/17 08:59 04/10/17 08:58 81 MG Nystatin (Mycostatin Susp) 5 ml QID PO 04/09/17 13:00 04/19/17 12:59 04/10/17 08:59 5 ML Clotrimazole (Mycelex 10MG Christina) 1 christina QID MT 04/09/17 13:00 04/19/17 12:59 04/10/17 08:58 1 CHRISTINA Hydromorphone HCl (Dilaudid Inj) 1 mg Q4 PRN IV 04/09/17 11:45 04/23/17 11:44 04/10/17 06:02 1 MG Piperacillin Sod/ Tazobactam Sod (Consult) 1 ea UD PRN N/A 04/09/17 12:00 05/09/17 11:59 Vancomycin HCl (Consult) 1 ea UD PRN N/A 04/09/17 12:00 05/09/17 11:59 Vancomycin HCl 1250 mg/Sodium Chloride 275 ml @ 125 mls/hr Q36H IV 04/11/17 03:00 04/18/17 02:59 Levalbuterol (Xopenex 1.25MG/ 3ML Neb) 1.25 mg Q6R INH 04/09/17 21:00 05/09/17 20:59 04/10/17 07:00 1.25 MG Ipratropium [place] (Atrovent 0.02% 0.5MG/2.5ML Neb) 0.5 mg Q6R INH 04/09/17 21:00 05/09/17 20:59 04/10/17 07:00 0.5 MG Metoprolol Succinate (Toprol Xl Tab) 50 mg BID PO 04/09/17 21:00 05/09/17 20:59 04/10/17 09:01 50 MG Hydralazine HCl (Apresoline Tab) 25 mg TID PO 04/09/17 21:00 05/09/17 20:59 04/10/17 08:58 25 MG Enteral Nutritional Formula (Boost Glucose Control) 1 can BID PO 04/09/17 21:00 05/09/17 20:59 04/09/17 21:17 1 CAN Furosemide 80 mg/ Syringe 8 ml @ 4 mls/min ONE IV 04/10/17 09:45 05/10/17 09:44 UNV Impression (1) Kidney disease, chronic, stage IV (GFR 15-29 ml/min) (2) Pneumonia (3) Abdominal pain (4) Anemia (5) Hypertension (6) H/O unilateral nephrectomy Elvin is a 61-year-old gentlemen with stage 4 chronic kidney disease with solitary right kidney with history of left nephrectomy cell metastatic renal cell carcinoma. Has retroperitoneal lymphadenopathy recently increasing in size , increase in size of right kidney hyperdense lesion. Presented to the hospital with fever, shortness of breath and desaturation, found to have pneumonia and bilateral pleural effusion. Started on empiric antibiotic vancomycin, Zosyn and Levaquin. Has severe right flank and lower abdominal pain , CT scan is inconclusive for pyelonephritis but has perinephric stranding and slight increase in size of right kidney hyperdense lesion. He has high grade proteinuria and has been on lisinopril and Lasix. Currently both on hold, blood pressure running slightly high. He has been on Opdivo but had multiple adverse effect possibly associated with it however he does not have lot of other options at this point to treat the metastatic renal cell carcinoma. Previously could not tolerate Sutent due to high grade proteinuria and poorly-controlled hypertension. Right lower quadrant and flank pain could be related to right renal mass, perinephric stranding/ pyelonephritis or from retroperitoneal lymphadenopathy. CT chest with pulmonary congestion ? pneumonia, pneumonitis with Opdivo vs pulmonary edema and moderate B/L pleural effusion. Recommendations --will give Lasix 80 mg IV x1 dose now --continue to hold lisinopril --agree with continuing on empiric antibiotic, will need to f/u on the blood cx done at [facility] --continue amlodipine, metoprolol and hydralazine --hemoglobin dropping further but no indication for blood transfusion at this point. --Epogen [id number] units x 1 dose ( Ok with Oncology as per discussion with Feliberto Lord) --left arm AV fistula is maturing, may take several weeks before we can use however there is no acute indication for dialysis at this point, he has been responding well to diuretics with decent UO. Will have left thoracentesis this afternoon. If volume status worsen or become less responsive to diuretics we will discuss about possible need for dialysis.
[2017-04-10] MEDS ORDERED: METHYLPREDNISOLONE IV 50 MG in SYRINGE 0 ML IV ONE (12:45)
--- NOTE | 2017-04-10 12:54 | Procedure Note ---
Procedure Note Date of Service Apr 10, 2017. Procedure Note Procedures: Left sided Thoracentesis Consent: obtained via the patient and placed into the chart Pre-Procedural Dx: Left-sided pleural effusion Post-Procedural Dx: Left-sided pleural effusion Analgesia: 8cc of 1% Liquid Lidocaine Procedure: The patient was placed in an upright position and thoracic US was used to select a spot for the procedure. A spot along the posterior axillary line was marked in the 7th intercostal space. The patient was then draped and prepped in a sterile fashion. A modified Seldinger technique was then used for catheter placement. Flowing this approximately 1000cc of yellow pleural fluid was removed. The patient was then cleaned and placed at a 60 degree angle in the bed were the US was used to evaluate for possible pneumothorax. The US showed good lung sliding and starry night sign. The patient was noted to have pain during reexpansion. EBL: None Complications: None
[2017-04-10 13:53] LABS: PLEURAL FLUID TOTAL PROTEIN 1.2 g/dl
[2017-04-10] MEDS ORDERED: METHYLPREDNISOLONE IV 50 MG in SYRINGE 0 ML IV SCH (14:00)
[2017-04-10 14:03] LABS: PLEURAL FLUID APPEARANCE CLEAR; PLEURAL FLUID COLOR YELLOW; PLEURAL FLUID MONONUC RELAT 65.3 %; PLEURAL FLUID POLYNUC 34.7 %; PLEURAL FLUID SOURCE LEFT LUNG; PLEURAL FLUID WBC (A) 103 /uL
--- NOTE | 2017-04-10 14:53 | DIAGNOSTIC IMAGING REPORT ---
(CHEST) THORAX WITHOUT CLINICAL HISTORY: 61 years-old Male presenting with left-sided pleural effusion with associated mass/infiltrate. TECHNIQUE: Multidetector CT imaging of the chest was performed without the use of intravenous contrast. IV contrast: None. A dose lowering technique was used consistent with the principles of ALARA (as low as reasonably achievable). COMPARISON: 04/09/2017. CT DOSE (mGy.cm): The estimated cumulative dose is 402.54 mGycm. 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 On soft tissue windows, normal thyroid and thoracic inlet. Prominent mediastinal nodes in the right paratracheal, subcarinal, and prevascular regions, the largest measuring 7 mm in the short axis (series 4 image 76). Atherosclerosis of aortic arch. Four-vessel arch configuration. Normal heart size. Aortic valve calcification may be present. Trace pericardial effusion. Persistent small to moderate right pleural effusion. Significant interval decrease in size of left pleural effusion, now trace, possibly suggesting interval thoracentesis. Borderline hepatic steatosis. On lung windows, improved aeration of the left lung base secondary to decreased passive atelectasis. Persistent dependent passive atelectasis in the right lower lobe. Solid consolidation with surrounding groundglass opacity most prominently in the left upper lobe but also involving the superior segment of the left lower lobe and central portions of the right upper lobe and minimally the medial portions of the right middle lobe. Multiple solid nodular opacities also noted peripherally in the left upper lobe, which may be related to the same process. Persistent smooth interlobular septal thickening in the left upper lobe, although decreased in the right upper lobe. Opacities are primarily in a perihilar/peribronchovascular distribution. Airways patent. On bone windows, degenerative changes of the spine. IMPRESSION: 1. Significant flow reduction of left pleural fluid likely from thoracentesis. No pneumothorax. Resulting decreased passive atelectasis in the left lower lobe. 2. Persistent small to moderate right pleural effusion with associated passive atelectasis in the right lower lobe. 3. Peribronchovascular opacities involving the left upper lobe to the greatest degree, similar to prior exam. This is most concerning for multifocal pneumonia. The presence of associated pulmonary nodules, follow-up is recommended to exclude underlying neoplasm. Given the lack of progression of involvement of the lower lobes, despite interlobular septal thickening, pulmonary edema is felt to be less likely. Electronically signed by: Loyd Horne M.D. 04/10/2017 2:51 PM Dictated Date/Time: 04/10/2017 2:38 PM
[2017-04-10] MEDS ORDERED: EPOETIN ALFA 20,000 UNITS/ML VIAL SQ SCH (16:00)
[2017-04-10] MEDS: INSULIN GLARGINE SOLOSTAR 100 UNITS/ML 3 ML PEN SC SCH (20:32)
[2017-04-10] MEDS: SIMVASTATIN 20 MG TAB PO SCH (20:34)
[2017-04-10] MEDS: METHYLPREDNISOLONE IV 50 MG in SYRINGE 0 ML IV SCH (20:35)
[2017-04-11] VITALS (14 sets, daily range): BP systolic 142–175; BP diastolic 71–78; PULSE 97–109; TEMP 36.8–37.3; O2SAT 91–94
[2017-04-11] MEDS: HYDROmorphone INJ 1 MG/ML SYR IV PRN ×5 (00:09→22:34)
[2017-04-11] MEDS: IPRATROPIUM BROMIDE NEB SOLN 0.02% 2.5 ML VIAL INH SCH ×4 (01:50→19:59)
[2017-04-11] MEDS: LEVALBUTEROL 1.25MG/3ML NEB INH SCH ×4 (01:50→19:59)
[2017-04-11] MEDS: VANCOMYCIN INJ 1,250 MG in SODIUM CHLORIDE 0.9% 250ML 250 ML IV SCH (02:25)
[2017-04-11] MEDS: PIPERACILL/TAZOBAC IV 3.375 GM in DEXTROSE 5% 100ML 100 ML IV SCH ×3 (04:39→19:26)
[2017-04-11 07:01] LABS: MEAN CELL VOLUME 82.6 fL (80-100); MEAN CORPUSCULAR HEMOGLOBIN 25.7 pg (25-34); MEAN CORPUSCULAR HGB CONC 31.1 g/dl (32-36); MEAN PLATELET VOLUME 9.8 fL (7.4-10.4); PLATELET COUNT 247 K/uL (130-400); RED BLOOD COUNT 3.27 M/uL (4.7-6.1); WHITE BLOOD COUNT 8.14 K/uL (4.8-10.8)
[2017-04-11] MEDS: BOOST GLUCOSE CONTROL PO SCH ×2 (07:30→17:03)
[2017-04-11 07:35] LABS: BUN/CREATININE RATIO 12.4 (10-20); CREATININE 3.8 mg/dl (0.60-1.40); POTASSIUM 3.3 mmol/L (3.5-5.1)
[2017-04-11] MEDS: INSULIN ASPART 100 UNITS/ML 3 ML PEN SC SCH ×4 (08:40→21:52)
[2017-04-11] MEDS: METOPROLOL SUCC 50MG EXT REL TAB PO SCH ×2 (08:41→21:50)
[2017-04-11] MEDS: AMLODIPINE BESYLATE 5 MG TAB PO SCH (08:42)
[2017-04-11] MEDS: HEPARIN SOD 5000 UNIT/0.5 ML CARP SQ SCH ×2 (09:00→21:53)
[2017-04-11] MEDS ORDERED: POTASSIUM CHLORIDE 10 MEQ TABCR PO ONE ×2 (09:00→12:00)
--- NOTE | 2017-04-11 09:29 | Hospitalist Progress Note ---
Hospitalist Progress Note Date of Service Apr 11, 2017. (Jaimie Beltran CRNP) Subjective Pt evaluation today including: conversation w/ patient, physical exam, chart review, lab review, review of studies Mr. Christy feels better today than he did yesterday. His shortness of breath is much improved, he has not been wearing oxygen. The pain in his right flank has also improved, he has been receiving dilaudid for the pain. Respiratory: + cough (very mild), No sputum Cardiovascular: No chest pain, No edema, No palpitations Abdomen: No pain, No nausea, No vomiting All Other Systems: Reviewed and Negative (Jaimie Beltran CRNP) Objective Vital Signs Date Time Temp Pulse Resp B/P (MAP) Pulse Ox O2 Delivery O2 Flow Rate FiO2 04/11/17 08:35 94 Room Air 04/11/17 07:30 37.1 109 18 175/75 (108) 94 Room Air 04/11/17 07:11 99 16 92 Room Air 04/11/17 04:00 91 Room Air 04/11/17 03:25 37.0 98 18 168/78 (108) 91 Room Air 04/11/17 01:50 103 16 91 Room Air 04/10/17 23:59 94 Room Air 04/10/17 22:50 36.9 103 20 164/78 (106) 94 Room Air 04/10/17 20:00 94 Room Air 04/10/17 19:30 36.8 105 22 158/71 (100) 94 Room Air 04/10/17 19:04 99 16 93 Room Air 04/10/17 16:00 Oxymask 5.0 04/10/17 15:40 36.8 98 22 154/74 (100) 99 Oxymask 5.0 04/10/17 14:15 81 18 96 Mask 7.0 04/10/17 12:00 Oxymask 7.0 04/10/17 11:41 37.2 103 18 169/83 (111) 95 (Jaimie Beltran CRNP) Physical Exam General Appearance: WD/WN, no apparent distress Eyes: normal inspection Respiratory/Chest: chest non-tender, no respiratory distress, no accessory muscle use, + decreased breath sounds (right base), + crackles (left base) Cardiovascular: regular rate, rhythm, no edema, no gallop, no murmur Abdomen: normal bowel sounds, soft, + pertinent finding (right flank, costovertebral tenderness) Extremities: + pertinent finding (tenderness around thoracentesis site) Neurologic/Psychiatric: alert, normal mood/affect, oriented x 3 Skin: normal color, warm/dry (Jaimie Beltran, ROSEMARY) Laboratory Results Last 24 Hours Test 04/10/17 10:33 04/10/17 10:42 04/10/17 10:54 04/10/17 12:54 Bedside Glucose 153 mg/dl Lactic Acid Level 0.7 mmol/L Arterial Blood pH 7.44 Arterial Blood Partial Pressure CO2 41 mmHg Arterial Blood Partial Pressure O2 89 mm/Hg Arterial Blood HCO3 27 mmol/L Arterial Blood Oxygen Saturation 94.4 % Arterial Blood Base Excess 2.5 mEq/L Arterial Blood Gas Delivery 7 L Ezio Test POS Test 04/10/17 16:13 04/10/17 20:12 04/11/17 06:19 04/11/17 06:52 Bedside Glucose 198 mg/dl 193 mg/dl 199 mg/dl White Blood Count 8.14 K/uL Red Blood Count 3.27 M/uL Hemoglobin 8.4 g/dL Hematocrit 27.0 % Mean Corpuscular Volume 82.6 fL Mean Corpuscular Hemoglobin 25.7 pg Mean Corpuscular Hemoglobin Concent 31.1 g/dl RDW Standard Deviation 47.9 fL RDW Coefficient of Variation 15.8 % Platelet Count 247 K/uL Mean Platelet Volume 9.8 fL Sodium Level 142 mmol/L Potassium Level 3.3 mmol/L Chloride Level 105 mmol/L Carbon Dioxide Level 26 mmol/L Anion Gap 11.0 mmol/L Blood Urea Nitrogen 47 mg/dl Creatinine 3.80 mg/dl Est Creatinine Clear Calc Drug Dose 20.5 ml/min Estimated GFR () 18.4 Estimated GFR (Non- 15.9 BUN/Creatinine Ratio 12.4 Random Glucose 198 mg/dl Calcium Level 9.0 mg/dl (Jaimie Beltran CRNP) Assessment and Plan Mr. Christy is a 61 year old man here with acute hypoxic respiratory failure likely due to pneumonitis from Opt[employer] treatments for renal cell carcinoma. Acute hypoxic respiratory failure - resolved, no longer needs supplemental oxygen. Bilateral pleural effusions status post thoracentesis 04/10/17 by pulmonary medicine. Fluid appeared transudative and not exudative, no apparent blood. Pneumonia, possible gram negative and MRSA vs Pneumonitis - Continue vancomycin and zosyn and methylprednisolone. Hypertension - continue amlodipine, hydralazine increased to 50 mg bid, discussed further diuresis with Dr. Norwood, none needed at this time. Anemia, this is normocytic and likely due to chronic disease, no apparent bleeding and patient does have a history of anemia. No indication for transfusion at this time. Renal cell carcinoma - oncology following, recent treatment with immunologic agent, concern for residual kidney mass seen on CT. Acute on chronic renal failure stage IV - avoid nephrotoxins and renal dose medications. Hyperglycemia - secondary to methylprednisolone, parameters of sliding scale changed to better control Hypokalemia - repleted. DVT prevention - heparin subq and SCDs Code status - full resuscitation (Jaimie Beltran ., ROSEMARY) PA Physician Supervision Note: I interviewed and examined the patient. Discussed with Winnie Beltran ELECTRONICS ASSEMBLER and agree with findings and plan as documented in the note. Any exceptions or clarifications are listed here: None Patient feels markedly improved after thoracentesis initially results appear to be transudate of working thought is that this is pneumonitis from his chemotherapy. Vital signs are stable with exception of elevated blood pressure patient is requiring less oxygen supplementation Cardiac exam is regular without murmurs lungs have decreased breath of the right base with dullness there is some coarse rhonchorous breath sounds left base Abdomen is soft mildly tender much less so than previous Acute respiratory failure with hypoxia from bilateral pleural effusions secondary to pneumonitis, oncology is direct steroid therapy, hypertension may be because all medications were reduced on intake we will resume these and determine if hypertension to be renal vascular hypertension nephrology is following Documented By: Greyson Mabry (Greyson Mabry M.D.)
[2017-04-11] MEDS: METHYLPREDNISOLONE IV 50 MG in SYRINGE 0 ML IV SCH ×2 (09:42→21:51)
[2017-04-11] MEDS: DOCUSATE SODIUM/SENNA 50/8.6MG TAB PO SCH (09:43)
[2017-04-11] MEDS: CLOTRIMAZOLE 10 MG TROCHE MT SCH ×4 (09:43→21:50)
[2017-04-11] MEDS: FERROUS SULFATE 325 MG TAB PO SCH ×2 (09:44→21:50)
[2017-04-11] MEDS: ESCITALOPRAM OXALATE 10 MG TAB PO SCH (09:44)
[2017-04-11] MEDS: ASPIRIN 81 MG ECTAB PO SCH (09:44)
[2017-04-11] MEDS: NYSTATIN SUSP 500,000 U/5 ML UDC PO SCH ×4 (09:44→21:51)
--- NOTE | 2017-04-11 10:18 | Hematology/Oncology Prog Note ---
Hematology/Onc Progress Note Date of Service Apr 11, 2017. Diagnoses Metastatic renal cell carcinoma Pulmonary infiltrates Renal insufficiency Medications Medications Administered Medications (Trade) Dose Ordered Sig/Edward Route Start Time Stop Time Status Last Admin Dose Admin Heparin Sodium (Porcine) (Heparin Sq 5000 Unit/0.5ml) 5,000 unit Q12 SQ 04/09/17 21:00 05/09/17 20:59 04/11/17 09:00 5,000 UNIT Insulin Aspart (novoLOG ASPART) SLIDING SCALE If C... ACHS SC 04/09/17 12:30 05/09/17 12:29 04/11/17 08:40 8 UNITS Amlodipine Besylate (Norvasc Tab) 10 mg DAILY PO 04/10/17 09:00 05/10/17 08:59 04/11/17 08:42 10 MG Escitalopram Oxalate (Lexapro Tab) 10 mg DAILY PO 04/10/17 09:00 05/10/17 08:59 04/11/17 09:44 10 MG Ferrous Sulfate (Feosol Tab) 325 mg BID PO 04/09/17 21:00 05/09/17 20:59 04/11/17 09:44 325 MG Insulin Glargine (Lantus Solostar Pen) 14 units QPM SC 04/09/17 21:00 05/09/17 20:59 04/10/17 20:32 14 UNITS Prednisone (PredniSONE TAB) 5 mg DAILY PO 04/10/17 09:00 05/10/17 08:59 04/11/17 09:44 5 MG Senna/Docusate Sodium (Senokot S Tab) 1 tab DAILY PO 04/10/17 09:00 05/10/17 08:59 04/11/17 09:43 1 TAB Simvastatin (Zocor Tab) 20 mg QPM PO 04/09/17 21:00 05/09/17 20:59 04/10/17 20:34 20 MG Terazosin HCl (Hytrin Cap) 5 mg HS PO 04/09/17 21:00 05/09/17 20:59 04/10/17 20:34 5 MG Levofloxacin 750 mg/Prmx 150 ml @ 100 mls/hr Q48H IV 04/09/17 13:00 04/16/17 12:59 04/09/17 13:12 100 MLS/HR Piperacillin Sod/ Tazobactam Sod 3.375 gm/Dextrose 115 ml @ 28.75 mls/ hr Q8H IV 04/09/17 20:00 04/16/17 19:59 04/11/17 04:39 28.75 MLS/HR Aspirin (Ecotrin Tab) 81 mg QAM PO 04/10/17 09:00 05/10/17 08:59 04/11/17 09:44 81 MG Nystatin (Mycostatin Susp) 5 ml QID PO 04/09/17 13:00 04/19/17 12:59 04/11/17 09:44 5 ML Clotrimazole (Mycelex 10MG Christina) 1 christina QID MT 04/09/17 13:00 04/19/17 12:59 04/11/17 09:43 1 CHRISTINA Morphine Sulfate (MoRPHine SULFATE INJ) 4 mg STK-MED ONCE .ROUTE 04/09/17 11:40 04/09/17 11:41 DC 04/09/17 11:45 4 MG Hydromorphone HCl (Dilaudid Inj) 1 mg Q4 PRN IV 04/09/17 11:45 04/23/17 11:44 04/11/17 05:54 1 MG Piperacillin Sod/ Tazobactam Sod 3.375 gm/Dextrose 115 ml @ 230 mls/hr NOW ONCE IV 04/09/17 12:30 04/09/17 12:59 DC 04/09/17 16:20 230 MLS/HR Vancomycin HCl 2000 mg/Sodium Chloride 540 ml @ 200 mls/hr ONE ONCE IV 04/09/17 12:45 04/09/17 15:26 DC 04/09/17 15:06 200 MLS/HR Furosemide 80 mg/ Syringe 8 ml @ 4 mls/min TODAY@1445 ONCE IV 04/09/17 14:45 04/09/17 14:46 DC 04/09/17 15:10 4 MLS/MIN Vancomycin HCl 1250 mg/Sodium Chloride 275 ml @ 125 mls/hr Q36H IV 04/11/17 03:00 04/18/17 02:59 04/11/17 02:25 125 MLS/HR Levalbuterol (Xopenex 1.25MG/ 3ML Neb) 1.25 mg Q6R INH 04/09/17 21:00 05/09/17 20:59 04/11/17 07:10 1.25 MG Ipratropium [place] (Atrovent 0.02% 0.5MG/2.5ML Neb) 0.5 mg Q6R INH 04/09/17 21:00 05/09/17 20:59 04/11/17 07:10 0.5 MG Metoprolol Tartrate (Lopressor Iv) 5 mg NOW STAT IV 04/09/17 15:35 04/09/17 16:39 DC 04/09/17 16:56 5 MG Metoprolol Succinate (Toprol Xl Tab) 50 mg BID PO 04/09/17 21:00 04/11/17 08:00 DC 04/10/17 20:34 50 MG Hydralazine HCl (Apresoline Tab) 25 mg TID PO 04/09/17 21:00 05/09/17 20:59 04/11/17 08:41 25 MG Enteral Nutritional Formula (Boost Glucose Control) 1 can BID PO 04/09/17 21:00 04/10/17 14:05 DC 04/10/17 09:50 1 CAN Furosemide 80 mg/ Syringe 8 ml @ 4 mls/min TODAY@1000 IV 04/10/17 10:00 04/10/17 11:00 DC 04/10/17 10:33 4 MLS/MIN Methylprednisolone Sodium Succinate 50 mg/Syringe 0.8 ml @ 1.5 mls/min Q12 IV 04/10/17 21:00 05/10/17 20:59 04/11/17 09:42 1.5 MLS/MIN Epoetin Mohsen (Procrit Inj) 20,000 units 1600 SQ 04/10/17 16:00 04/10/17 16:01 DC 04/10/17 17:08 20,000 UNITS Enteral Nutritional Formula (Boost Glucose Control) 1 can BIDM PO 04/10/17 16:45 05/10/17 16:44 04/11/17 07:30 1 CAN Metoprolol Succinate (Toprol Xl Tab) 100 mg BID PO 04/11/17 09:00 05/09/17 20:59 04/11/17 08:41 100 MG Potassium Chloride (Klor-Con M10) 20 meq NOW ONCE PO 04/11/17 09:00 04/11/17 09:01 DC 04/11/17 09:50 20 MEQ Subjective He is breathing better today. Thousand cc of pleural fluid was removed yesterday. Biochemically does appear more transudative. Review of Systems: Constitutional: Negative for night sweats, or fever Eyes: Negative for event change of vision ENT: Negative for epistaxis, nasal discharge, sore throat, or deafness Cardiovascular: Negative for chest pain, palpitations, dizziness, diaphoresis Respiratory: Negative for worsening shortness of breath,hemoptysis, or purulent cough Gastrointestinal: Negative for diarrhea, hematemesis, melena, nausea, vomiting , or dyspepsia Integumentary (skin): Negative for rash or jaundice discoloration Genitourinary: Negative for urinary frequency, hematuria, or dysuria Neurological: Negative for weakness, seizure activity, headache, or dizziness Lymphatic/Hematologic: Negative for petechiae, bleeding or new adenopathy Musculoskeletal: Negative for new joint or back pain Allergic/Immunologic: Negative for unusual rash or pruritis. Vital Signs Vital Signs Past 12 Hours Date Time Temp Pulse Resp B/P (MAP) Pulse Ox O2 Delivery O2 Flow Rate FiO2 04/11/17 08:35 94 Room Air 04/11/17 07:30 37.1 109 18 175/75 (108) 94 Room Air 04/11/17 07:11 99 16 92 Room Air 04/11/17 04:00 91 Room Air 04/11/17 03:25 37.0 98 18 168/78 (108) 91 Room Air 04/11/17 01:50 103 16 91 Room Air 04/10/17 23:59 94 Room Air 04/10/17 22:50 36.9 103 20 164/78 (106) 94 Room Air Physical Exam Constitutional: vitals are stable. Eyes: Eyes are YSABEL EOMI without conjuctival erythema or icterus. ENT: External examination was negative for masses. Neck: Negative for masses or palpable thyromegaly Respiratory: Lung sounds were generally clear bilaterally Cardiovascular: Heart was RRR without significant murmur, gallops aoe rubs Gastrointestinal: No palpable hepatic or splenomegaly. The abdomen was soft with normal bowel sounds. Lymphatic system: there was no palpable peripheral lymphadenopathy Musculoskeletal System: The musculoskeletal system seemed concordant with age. Skin: The skin was negative for jaundice. Neurologic exam: The exam was negative for any focal findings. Deep tendon reflexes were equal and symmetrical. Psychiatric exam: Was essentially negative with normal mood and effect. Extremities: Negative for edema erythema Laboratory Last 24 Hours Test 04/10/17 10:33 04/10/17 10:42 04/10/17 10:54 04/10/17 12:54 Bedside Glucose 153 mg/dl Lactic Acid Level 0.7 mmol/L Arterial Blood pH 7.44 Arterial Blood Partial Pressure CO2 41 mmHg Arterial Blood Partial Pressure O2 89 mm/Hg Arterial Blood HCO3 27 mmol/L Arterial Blood Oxygen Saturation 94.4 % Arterial Blood Base Excess 2.5 mEq/L Arterial Blood Gas Delivery 7 L Ezio Test POS Test 04/10/17 16:13 04/10/17 20:12 04/11/17 06:19 04/11/17 06:52 Bedside Glucose 198 mg/dl 193 mg/dl 199 mg/dl White Blood Count 8.14 K/uL Red Blood Count 3.27 M/uL Hemoglobin 8.4 g/dL Hematocrit 27.0 % Mean Corpuscular Volume 82.6 fL Mean Corpuscular Hemoglobin 25.7 pg Mean Corpuscular Hemoglobin Concent 31.1 g/dl RDW Standard Deviation 47.9 fL RDW Coefficient of Variation 15.8 % Platelet Count 247 K/uL Mean Platelet Volume 9.8 fL Sodium Level 142 mmol/L Potassium Level 3.3 mmol/L Chloride Level 105 mmol/L Carbon Dioxide Level 26 mmol/L Anion Gap 11.0 mmol/L Blood Urea Nitrogen 47 mg/dl Creatinine 3.80 mg/dl Est Creatinine Clear Calc Drug Dose 20.5 ml/min Estimated GFR () 18.4 Estimated GFR (Non- 15.9 BUN/Creatinine Ratio 12.4 Random Glucose 198 mg/dl Calcium Level 9.0 mg/dl Assessment & Plan As the timeline of events unfolds and data returns, I suspect that there changes seen on his chest CT and shortness of breath may in fact be a result of pneumonitis from the PD1 inhibitor. There is little doubt that he has metastatic renal cell carcinoma however these kind of changes that occurred so quickly on his chest CT would be unlikely related to metastatic renal cell disease. He has begun on parenteral steroids. I would maintain parenteral steroids for another day or 2 then if all is well we can switch to oral prednisone 80-100 mg a day in divided doses and then taper as an outpatient. I reviewed the above with the patient today. I stated that the sequential CT scans do demonstrate enlarging adenopathy and subsequently I do not believe that further PD1 therapy are rechallenge with PD1 therapy is warranted. I suspect we will try to salvage the situation with another TK multitargeted oral agent as an outpatient.
[2017-04-11] MEDS ORDERED: HydrALAZINE HCL 20 MG/ML VIAL IV. PRN (10:45)
--- NOTE | 2017-04-11 11:57 | Nephrology Progress Note ---
Nephrology Progress Note Date of Service Apr 11, 2017. Chief Complaint F/U for advanced chronic kidney disease. Roland Causey was seen and examined this morning. SOB improved, continues to have right flank discomfort and pain but better than before. Renal function slightly worsened, electrolyte acceptable. BP remain elevated. Voiding normally. Remain afebrile. Hb improved. Review of Systems A complete review of systems was performed. Pertinent positives are noted above. All other systems are negative. Vital Signs Last 8 Hrs Date Time Temp Pulse Resp B/P (MAP) Pulse Ox O2 Delivery O2 Flow Rate FiO2 04/11/17 08:35 94 Room Air 04/11/17 07:30 37.1 109 18 175/75 (108) 94 Room Air 04/11/17 07:11 99 16 92 Room Air 04/11/17 04:00 91 Room Air 04/11/17 03:25 37.0 98 18 168/78 (108) 91 Room Air 04/11/17 01:50 103 16 91 Room Air Last Recorded Weight Weight (Kilograms): 82.100 Physical Exam GENERAL: middle aged male,, AAA x 3, pale-appearing, in no distress. NECK: Supple, no JVD. RESPIRATORY: decrease B/L at bases, crackles b/l CARDIOVASCULAR: S1, S2 normal, rate rhythm regular. EXTREMITY: No lower extremity edema NEURO: speech fluent. PSYCHIATRY: Normal mood and judgment Family History Cervical cancer Diabetes mellitus Heart disease Hypertension Myocardial infarction Pancreatic cancer Prostate cancer Social History Smokeless Tobacco Use: No Alcohol Use: none Drug Use: none Marital Status: single Housing Status: lives alone Occupation: retired Laboratory Results Past 24 Hours 04/11/17 06:19 04/11/17 06:19 Test 04/10/17 10:33 04/10/17 10:42 04/10/17 10:54 04/10/17 12:54 Bedside Glucose 153 mg/dl (70-99) Lactic Acid Level 0.7 mmol/L (0.4-2.0) Arterial Blood pH 7.44 (7.35-7.45) Arterial Blood Partial Pressure CO2 41 mmHg (35-46) Arterial Blood Partial Pressure O2 89 mm/Hg (80-95) Arterial Blood HCO3 27 mmol/L (19-24) Arterial Blood Oxygen Saturation 94.4 % (90-95) Arterial Blood Base Excess 2.5 mEq/L (-9-1.8) Arterial Blood Gas Delivery 7 L Ezio Test POS (POS) Test 04/10/17 16:13 04/10/17 20:12 04/11/17 06:19 04/11/17 06:52 Bedside Glucose 198 mg/dl (70-99) 193 mg/dl (70-99) 199 mg/dl (70-99) Red Blood Count 3.27 M/uL (4.7-6.1) Mean Corpuscular Volume 82.6 fL (80-100) Mean Corpuscular Hemoglobin 25.7 pg (25-34) Mean Corpuscular Hemoglobin Concent 31.1 g/dl (32-36) RDW Standard Deviation 47.9 fL (36.4-46.3) RDW Coefficient of Variation 15.8 % (11.5-14.5) Mean Platelet Volume 9.8 fL (7.4-10.4) Anion Gap 11.0 mmol/L (3-11) Est Creatinine Clear Calc Drug Dose 20.5 ml/min Estimated GFR () 18.4 Estimated GFR (Non- 15.9 BUN/Creatinine Ratio 12.4 (10-20) Calcium Level 9.0 mg/dl (8.5-10.1) Allergies Coded Allergies: Iodinated Diagnostic Agents (Verified Allergy, Unknown, oil based, severe headaches, 10/27/16) EVENT OCCURED IN 1971, PT STATES HE HAS HAD 3 DIFFERENT WATER BASED IVP DYES WITH NO ISSUE Medications Current Inpatient Medications Medications (Trade) Dose Ordered Sig/Edward Route Start Time Stop Time Status Last Admin Dose Admin Heparin Sodium (Porcine) (Heparin Sq 5000 Unit/0.5ml) 5,000 unit Q12 SQ 04/09/17 21:00 05/09/17 20:59 04/10/17 20:30 5,000 UNIT Acetaminophen (Tylenol Tab) 650 mg Q4H PRN PO 04/09/17 10:30 05/09/17 10:29 Al Hydrox/Mg Hydrox/Simethicone (Maalox Max Susp) 15 ml Q4H PRN PO 04/09/17 10:30 05/09/17 10:29 Magnesium Hydroxide (Milk Of Magnesia Susp) 30 ml Q12H PRN PO 04/09/17 10:30 05/09/17 10:29 Ondansetron HCl (Zofran Inj) 4 mg Q6H PRN IV 04/09/17 10:30 05/09/17 10:29 Polyethylene (Miralax Powder Packet) 17 gm DAILY PRN PO 04/09/17 10:30 05/09/17 10:29 Insulin Aspart (novoLOG ASPART) SLIDING SCALE If C... ACHS SC 04/09/17 12:30 05/09/17 12:29 04/11/17 08:40 8 UNITS Glucose (Glucose 40% Gel) 15-30 GRAMS 15 GRAMS... UD PRN PO 04/09/17 10:30 05/09/17 10:29 Glucose (Glucose Chew Tab) 4-8 Tablets 4 Tabl... UD PRN PO 04/09/17 10:30 05/09/17 10:29 Dextrose (Dextrose 50% 50ML Syringe) 25-50ML OF 50% DW IV FOR... UD PRN IV 04/09/17 10:30 05/09/17 10:29 Glucagon (Glucagon Inj) 1 mg UD PRN SQ 04/09/17 10:30 05/09/17 10:29 Amlodipine Besylate (Norvasc Tab) 10 mg DAILY PO 04/10/17 09:00 05/10/17 08:59 04/11/17 08:42 10 MG Escitalopram Oxalate (Lexapro Tab) 10 mg DAILY PO 04/10/17 09:00 05/10/17 08:59 04/10/17 08:59 10 MG Ferrous Sulfate (Feosol Tab) 325 mg BID PO 04/09/17 21:00 05/09/17 20:59 04/10/17 20:34 325 MG Insulin Glargine (Lantus Solostar Pen) 14 units QPM SC 04/09/17 21:00 05/09/17 20:59 04/10/17 20:32 14 UNITS Prednisone (PredniSONE TAB) 5 mg DAILY PO 04/10/17 09:00 05/10/17 08:59 04/10/17 09:01 5 MG Senna/Docusate Sodium (Senokot S Tab) 1 tab DAILY PO 04/10/17 09:00 05/10/17 08:59 04/10/17 09:01 1 TAB Simvastatin (Zocor Tab) 20 mg QPM PO 04/09/17 21:00 05/09/17 20:59 04/10/17 20:34 20 MG Terazosin HCl (Hytrin Cap) 5 mg HS PO 04/09/17 21:00 05/09/17 20:59 04/10/17 20:34 5 MG Levofloxacin 750 mg/Prmx 150 ml @ 100 mls/hr Q48H IV 04/09/17 13:00 04/16/17 12:59 04/09/17 13:12 100 MLS/HR Piperacillin Sod/ Tazobactam Sod 3.375 gm/Dextrose 115 ml @ 28.75 mls/ hr Q8H IV 04/09/17 20:00 04/16/17 19:59 04/11/17 04:39 28.75 MLS/HR Aspirin (Ecotrin Tab) 81 mg QAM PO 04/10/17 09:00 05/10/17 08:59 04/10/17 08:58 81 MG Nystatin (Mycostatin Susp) 5 ml QID PO 04/09/17 13:00 04/19/17 12:59 04/10/17 20:33 5 ML Clotrimazole (Mycelex 10MG Christina) 1 christina QID MT 04/09/17 13:00 04/19/17 12:59 04/10/17 20:34 1 CHRISTINA Hydromorphone HCl (Dilaudid Inj) 1 mg Q4 PRN IV 04/09/17 11:45 04/23/17 11:44 04/11/17 05:54 1 MG Piperacillin Sod/ Tazobactam Sod (Consult) 1 ea UD PRN N/A 04/09/17 12:00 05/09/17 11:59 Vancomycin HCl (Consult) 1 ea UD PRN N/A 04/09/17 12:00 05/09/17 11:59 Vancomycin HCl 1250 mg/Sodium Chloride 275 ml @ 125 mls/hr Q36H IV 04/11/17 03:00 04/18/17 02:59 04/11/17 02:25 125 MLS/HR Levalbuterol (Xopenex 1.25MG/ 3ML Neb) 1.25 mg Q6R INH 04/09/17 21:00 05/09/17 20:59 04/11/17 07:10 1.25 MG Ipratropium [place] (Atrovent 0.02% 0.5MG/2.5ML Neb) 0.5 mg Q6R INH 04/09/17 21:00 05/09/17 20:59 04/11/17 07:10 0.5 MG Hydralazine HCl (Apresoline Tab) 25 mg TID PO 04/09/17 21:00 05/09/17 20:59 04/11/17 08:41 25 MG Methylprednisolone Sodium Succinate 50 mg/Syringe 0.8 ml @ 1.5 mls/min Q12 IV 04/10/17 21:00 05/10/17 20:59 04/10/17 20:35 1.5 MLS/MIN Enteral Nutritional Formula (Boost Glucose Control) 1 can BIDM PO 04/10/17 16:45 05/10/17 16:44 04/10/17 17:08 1 CAN Metoprolol Succinate (Toprol Xl Tab) 100 mg BID PO 04/11/17 09:00 05/09/17 20:59 04/11/17 08:41 100 MG Potassium Chloride (Klor-Con M10) 20 meq ONE ONCE PO 04/11/17 12:00 04/11/17 12:01 UNV Potassium Chloride (Klor-Con M10) 20 meq 0836 ONCE PO 04/11/17 08:36 04/11/17 08:37 UNV Impression (1) Kidney disease, chronic, stage IV (GFR 15-29 ml/min) (2) Pneumonia (3) Abdominal pain (4) Anemia (5) Hypertension (6) H/O unilateral nephrectomy Padilla is a 61-year-old gentlemen with stage 4 chronic kidney disease with solitary right kidney with history of left nephrectomy cell metastatic renal cell carcinoma. Has retroperitoneal lymphadenopathy recently increasing in size , increase in size of right kidney hyperdense lesion. Presented to the hospital with fever, shortness of breath and desaturation, found to have pneumonia and bilateral pleural effusion. Started on empiric antibiotic vancomycin, Zosyn and Levaquin. Has severe right flank and lower abdominal pain , CT scan is inconclusive for pyelonephritis but has perinephric stranding and slight increase in size of right kidney hyperdense lesion. He has high grade proteinuria and has been on lisinopril and Lasix. Currently both on hold, blood pressure running slightly high. He has been on Opdivo but had multiple adverse effect possibly associated with it however he does not have lot of other options at this point to treat the metastatic renal cell carcinoma. Previously could not tolerate Sutent due to high grade proteinuria and poorly-controlled hypertension. Right lower quadrant and flank pain could be related to right renal mass, perinephric stranding/ pyelonephritis or from retroperitoneal lymphadenopathy. CT chest with pulmonary congestion ? pneumonia, pneumonitis with Opdivo vs pulmonary edema and moderate B/L pleural effusion. Started on steroid for possible pneumonitis and had left pleural tap on . Epogen 07416 units x 1 dose ( Ok with Oncology as per discussion with Feliberto Lord) given on 04/10/17 Recommendations --increase metoprolol to 100 BID, continue amlodipine and hydralazine --agree with continuing on empiric antibiotic, will need to f/u on the blood cx done at [facility] --hemoglobin stable after IDALIA --left arm AV fistula is maturing, may take several weeks before we can use however there is no acute indication for dialysis at this point, he has been non oliguric, electrolyte acceptable although renal function slightly worsened. --will monitor with daily renal panel and assess for need for TUNNEL MINER --OK to try another TK inhibitor if recommended by Oncology
--- NOTE | 2017-04-11 12:22 | Pulmonology Progress Note ---
Pulmonary Progress Note Date of Service Apr 11, 2017. Attending Dr. Ferreira Subjective Patient is feeling much improved today. His SOB is much less, and he is saturating well on room air since yesterday evening. He otherwise is improving. He states that his appetite is slightly improved. Note that hematology/oncology evaluated the patient- feel that possible chemotherapy related pneumonitis. May change medication as outpatient. Discussed patient briefly with Dr. Mabry. Labs reviewed today: WBC 8.14 Hgb 8.4 (improved from 7.7 yesterday) Creatinine 3.8 BUN 47 Pleural fluid analysis: pH 7.43 WBC 103 RBC <3000 Total protein 1.2 LDH 90 Glucose 142 Amylase 15 Cholesterol pending Fluid creatinine pending Pathology pending AFB cx pending- smear negative Bacterial cx showing NGTD Repeat Chest CT showed continued small right sided pleural effusion. Bilateral lower lobe atelectasis noted along with continued opacities in the TERRENCE and throughout lungs concerning for multifocal pneumonia. Nodules are also noted, but unable to be evaluated well due to overlying opacities. Images viewed. Inpatient medications reviewed- continues on Vancomycin, Zosyn, Levaquin, Atrovent, and Xopenex Objective VS Reviewed over last 24 hrs: Stable SaO2 on room air- no desaturation below 91% HR- tachycardia up to 109 BP continues to be elevated up to 175/75 (CHEST) THORAX WITHOUT CLINICAL HISTORY: 61 years-old Male presenting with left-sided pleural effusion with associated mass/infiltrate. TECHNIQUE: Multidetector CT imaging of the chest was performed without the use of intravenous contrast. IV contrast: None. A dose lowering technique was used consistent with the principles of ALARA (as low as reasonably achievable). COMPARISON: 04/09/2017. CT DOSE (mGy.cm): The estimated cumulative dose is 402.54 mGycm. FINDINGS: Training Technician topogram: Left upper lobe opacity. On soft tissue windows, normal thyroid and thoracic inlet. Prominent mediastinal nodes in the right paratracheal, subcarinal, and prevascular regions, the largest measuring 7 mm in the short axis (series 4 image 76). Atherosclerosis of aortic arch. Four-vessel arch configuration. Normal heart size. Aortic valve calcification may be present. Trace pericardial effusion. Persistent small to moderate right pleural effusion. Significant interval decrease in size of left pleural effusion, now trace, possibly suggesting interval thoracentesis. Borderline hepatic steatosis. On lung windows, improved aeration of the left lung base secondary to decreased passive atelectasis. Persistent dependent passive atelectasis in the right lower lobe. Solid consolidation with surrounding groundglass opacity most prominently in the left upper lobe but also involving the superior segment of the left lower lobe and central portions of the right upper lobe and minimally the medial portions of the right middle lobe. Multiple solid nodular opacities also noted peripherally in the left upper lobe, which may be related to the same process. Persistent smooth interlobular septal thickening in the left upper lobe, although decreased in the right upper lobe. Opacities are primarily in a perihilar/peribronchovascular distribution. Airways patent. On bone windows, degenerative changes of the spine. IMPRESSION: 1. Significant flow reduction of left pleural fluid likely from thoracentesis. No pneumothorax. Resulting decreased passive atelectasis in the left lower lobe. 2. Persistent small to moderate right pleural effusion with associated passive atelectasis in the right lower lobe. 3. Peribronchovascular opacities involving the left upper lobe to the greatest degree, similar to prior exam. This is most concerning for multifocal pneumonia. The presence of associated pulmonary nodules, follow-up is recommended to exclude underlying neoplasm. Given the lack of progression of involvement of the lower lobes, despite interlobular septal thickening, pulmonary edema is felt to be less likely. General: Patient is awake, alert, cooperative, and in no acute distress. Well developed. Well-nourished. Head: Normocephalic, Atraumatic. ENT: PERRLA, No discharge, EOMI, Sclera normal Neck: Normal ROM. Trachea midline. No stridor Respiratory: Decreased BS right base. Crackles left base, mildly coarse breath sounds TERRENCE. No respiratory distress. No accessory muscle use. Cardiovascular: Tachycardia. No murmur appreciate. Normal S1/S2. Abdomen: Nontender to palpation. Normal bowel sounds hear throughout. Abdomen is soft and nontender Back: Normal inspection. Note mild tenderness to palpation of left lower back and right lower back- seems likely muscular Extremities: No edema, cyanosis. Normal ROM Neuro: Alert, Oriented x 3. CN II-XII grossly intact. Sensation and motor function grossly intact. Psych: Mood and affect are normal. Assessment & Plan Acute Hypoxic Respiratory Failure B/L Pleural effusions- Left side pleural fluid appears transudative Infiltrative/Consolidative Lung Process- probable infection superimposed on probable chemotherapy related pneumonitis Renal Cell Carcinoma with lymph node metastasis CKD Patient is much improved today. Sxs have decreased substantially and he is saturating well on room air today. He is no longer SOB, but he continues to have some mild right flank pain. Right-sided effusion continues to be relatively small, and appears to have possible loculations. Because the patient is currently stable, sxs have improve, and the fluid appears to be transudative will hold off on right-sided thoracentesis for now. If fluid appears to increase , or symptoms return, will consider. Continue O2 supplementation PRN. Will follow pleural fluid pathology and further labs. Consider repeat CXR tomorrow to reevaluate right-sided pleural effusion Continue empiric abx pending pleural fluid culture and further improvement Continue Atrovent & Xopenex. Patient is doing well today and is pleural effusion is transitive in nature. The CT does show reexpansion of the lung. At this time no further evaluation of the pleural fluid is necessary. In the pulmonary team will sign off please contact us if necessary. Data Medications: Current Inpatient Medications Medications (Trade) Dose Ordered Sig/Edward Route Start Time Stop Time Status Last Admin Dose Admin Heparin Sodium (Porcine) (Heparin Sq 5000 Unit/0.5ml) 5,000 unit Q12 SQ 04/09/17 21:00 05/09/17 20:59 04/11/17 09:00 5,000 UNIT Acetaminophen (Tylenol Tab) 650 mg Q4H PRN PO 04/09/17 10:30 05/09/17 10:29 Al Hydrox/Mg Hydrox/Simethicone (Maalox Max Susp) 15 ml Q4H PRN PO 04/09/17 10:30 05/09/17 10:29 Magnesium Hydroxide (Milk Of Magnesia Susp) 30 ml Q12H PRN PO 04/09/17 10:30 05/09/17 10:29 Ondansetron HCl (Zofran Inj) 4 mg Q6H PRN IV 04/09/17 10:30 05/09/17 10:29 Polyethylene (Miralax Powder Packet) 17 gm DAILY PRN PO 04/09/17 10:30 05/09/17 10:29 Insulin Aspart (novoLOG ASPART) SLIDING SCALE If C... ACHS SC 04/09/17 12:30 05/09/17 12:29 04/11/17 08:40 8 UNITS Glucose (Glucose 40% Gel) 15-30 GRAMS 15 GRAMS... UD PRN PO 04/09/17 10:30 05/09/17 10:29 Glucose (Glucose Chew Tab) 4-8 Tablets 4 Tabl... UD PRN PO 04/09/17 10:30 05/09/17 10:29 Dextrose (Dextrose 50% 50ML Syringe) 25-50ML OF 50% DW IV FOR... UD PRN IV 04/09/17 10:30 05/09/17 10:29 Glucagon (Glucagon Inj) 1 mg UD PRN SQ 04/09/17 10:30 05/09/17 10:29 Amlodipine Besylate (Norvasc Tab) 10 mg DAILY PO 04/10/17 09:00 05/10/17 08:59 04/11/17 08:42 10 MG Escitalopram Oxalate (Lexapro Tab) 10 mg DAILY PO 04/10/17 09:00 05/10/17 08:59 04/11/17 09:44 10 MG Ferrous Sulfate (Feosol Tab) 325 mg BID PO 04/09/17 21:00 05/09/17 20:59 04/11/17 09:44 325 MG Insulin Glargine (Lantus Solostar Pen) 14 units QPM SC 04/09/17 21:00 05/09/17 20:59 04/10/17 20:32 14 UNITS Prednisone (PredniSONE TAB) 5 mg DAILY PO 04/10/17 09:00 05/10/17 08:59 04/11/17 09:44 5 MG Senna/Docusate Sodium (Senokot S Tab) 1 tab DAILY PO 04/10/17 09:00 05/10/17 08:59 04/11/17 09:43 1 TAB Simvastatin (Zocor Tab) 20 mg QPM PO 04/09/17 21:00 05/09/17 20:59 04/10/17 20:34 20 MG Terazosin HCl (Hytrin Cap) 5 mg HS PO 04/09/17 21:00 05/09/17 20:59 04/10/17 20:34 5 MG Levofloxacin 750 mg/Prmx 150 ml @ 100 mls/hr Q48H IV 04/09/17 13:00 04/16/17 12:59 04/09/17 13:12 100 MLS/HR Piperacillin Sod/ Tazobactam Sod 3.375 gm/Dextrose 115 ml @ 28.75 mls/ hr Q8H IV 04/09/17 20:00 04/16/17 19:59 04/11/17 04:39 28.75 MLS/HR Aspirin (Ecotrin Tab) 81 mg QAM PO 04/10/17 09:00 05/10/17 08:59 04/11/17 09:44 81 MG Nystatin (Mycostatin Susp) 5 ml QID PO 04/09/17 13:00 04/19/17 12:59 04/11/17 09:44 5 ML Clotrimazole (Mycelex 10MG Christina) 1 christina QID MT 04/09/17 13:00 04/19/17 12:59 04/11/17 09:43 1 CHRISTINA Hydromorphone HCl (Dilaudid Inj) 1 mg Q4 PRN IV 04/09/17 11:45 04/23/17 11:44 04/11/17 10:44 1 MG Piperacillin Sod/ Tazobactam Sod (Consult) 1 ea UD PRN N/A 04/09/17 12:00 05/09/17 11:59 Vancomycin HCl (Consult) 1 ea UD PRN N/A 04/09/17 12:00 05/09/17 11:59 Vancomycin HCl 1250 mg/Sodium Chloride 275 ml @ 125 mls/hr Q36H IV 04/11/17 03:00 04/18/17 02:59 04/11/17 02:25 125 MLS/HR Levalbuterol (Xopenex 1.25MG/ 3ML Neb) 1.25 mg Q6R INH 04/09/17 21:00 05/09/17 20:59 04/11/17 07:10 1.25 MG Ipratropium [place] (Atrovent 0.02% 0.5MG/2.5ML Neb) 0.5 mg Q6R INH 04/09/17 21:00 05/09/17 20:59 04/11/17 07:10 0.5 MG Methylprednisolone Sodium Succinate 50 mg/Syringe 0.8 ml @ 1.5 mls/min Q12 IV 04/10/17 21:00 05/10/17 20:59 04/11/17 09:42 1.5 MLS/MIN Enteral Nutritional Formula (Boost Glucose Control) 1 can BIDM PO 04/10/17 16:45 05/10/17 16:44 04/11/17 07:30 1 CAN Metoprolol Succinate (Toprol Xl Tab) 100 mg BID PO 04/11/17 09:00 05/09/17 20:59 04/11/17 08:41 100 MG Potassium Chloride (Klor-Con M10) 20 meq TODAY@1200 ONCE PO 04/11/17 12:00 04/11/17 12:01 Hydralazine HCl (Apresoline Tab) 50 mg TID PO 04/11/17 14:00 05/09/17 20:59 Hydralazine HCl (HydrALAZINE INJ) 10 mg Q4H PRN IV. 04/11/17 10:45 05/11/17 10:44 Vital Signs: Date Time Temp Pulse Resp B/P (MAP) Pulse Ox O2 Delivery O2 Flow Rate FiO2 04/11/17 11:11 37.3 98 18 160/77 (104) 93 Room Air 04/11/17 08:35 94 Room Air 04/11/17 07:30 37.1 109 18 175/75 (108) 94 Room Air 04/11/17 07:11 99 16 92 Room Air 04/11/17 04:00 91 Room Air 04/11/17 03:25 37.0 98 18 168/78 (108) 91 Room Air 04/11/17 01:50 103 16 91 Room Air 04/10/17 23:59 94 Room Air 04/10/17 22:50 36.9 103 20 164/78 (106) 94 Room Air 04/10/17 20:00 94 Room Air 04/10/17 19:30 36.8 105 22 158/71 (100) 94 Room Air 04/10/17 19:04 99 16 93 Room Air 04/10/17 16:00 Oxymask 5.0 04/10/17 15:40 36.8 98 22 154/74 (100) 99 Oxymask 5.0 04/10/17 14:15 81 18 96 Mask 7.0 04/10/17 12:00 Oxymask 7.0 Laboratory Results: Last 24 Hours Test 04/10/17 12:54 04/10/17 16:13 04/10/17 20:12 04/11/17 06:19 Bedside Glucose 198 mg/dl 193 mg/dl White Blood Count 8.14 K/uL Red Blood Count 3.27 M/uL Hemoglobin 8.4 g/dL Hematocrit 27.0 % Mean Corpuscular Volume 82.6 fL Mean Corpuscular Hemoglobin 25.7 pg Mean Corpuscular Hemoglobin Concent 31.1 g/dl RDW Standard Deviation 47.9 fL RDW Coefficient of Variation 15.8 % Platelet Count 247 K/uL Mean Platelet Volume 9.8 fL Sodium Level 142 mmol/L Potassium Level 3.3 mmol/L Chloride Level 105 mmol/L Carbon Dioxide Level 26 mmol/L Anion Gap 11.0 mmol/L Blood Urea Nitrogen 47 mg/dl Creatinine 3.80 mg/dl Est Creatinine Clear Calc Drug Dose 20.5 ml/min Estimated GFR () 18.4 Estimated GFR (Non- 15.9 BUN/Creatinine Ratio 12.4 Random Glucose 198 mg/dl Calcium Level 9.0 mg/dl Test 04/11/17 06:52 04/11/17 10:49 Bedside Glucose 199 mg/dl 237 mg/dl
[2017-04-11] MEDS: LEVOFLOXACIN / D5W 750 MG in PREMIXED IN D5W 150 ML IV SCH (12:23)
[2017-04-11] MEDS ORDERED: INSULIN ASPART 100 UNITS/ML 3 ML PEN SC STA (21:40)
[2017-04-11] MEDS: SIMVASTATIN 20 MG TAB PO SCH (21:50)
[2017-04-11] MEDS: INSULIN GLARGINE SOLOSTAR 100 UNITS/ML 3 ML PEN SC SCH (21:52)
[2017-04-11] MEDS ORDERED: NURSING VERBAL MED ORDER ONE (22:15)
[2017-04-12] VITALS (11 sets, daily range): BP systolic 147–167; BP diastolic 67–77; PULSE 88–97; TEMP 36.6–37; O2SAT 93–99
[2017-04-12] MEDS: LEVALBUTEROL 1.25MG/3ML NEB INH SCH ×4 (02:11→19:22)
[2017-04-12] MEDS: IPRATROPIUM BROMIDE NEB SOLN 0.02% 2.5 ML VIAL INH SCH ×4 (02:11→19:21)
[2017-04-12] MEDS: PIPERACILL/TAZOBAC IV 3.375 GM in DEXTROSE 5% 100ML 100 ML IV SCH ×2 (04:24→16:05)
[2017-04-12] MEDS: HYDROmorphone INJ 1 MG/ML SYR IV PRN ×3 (04:28→16:07)
[2017-04-12 06:53] LABS: HEMATOCRIT 27.2 % (42-52); MEAN CELL VOLUME 82.2 fL (80-100); MEAN CORPUSCULAR HEMOGLOBIN 26.3 pg (25-34); MEAN PLATELET VOLUME 9.5 fL (7.4-10.4); PLATELET COUNT 261 K/uL (130-400); RED BLOOD COUNT 3.31 M/uL (4.7-6.1)
[2017-04-12 07:20] LABS: BUN/CREATININE RATIO 12.8 (10-20); CALCIUM 8.8 mg/dl (8.5-10.1); POTASSIUM 3.9 mmol/L (3.5-5.1)
[2017-04-12 07:25] LABS: FERRITIN 258.2 ng/ml (8.0-388.0); PHOSPHORUS 2.4 mg/dl (2.5-4.9)
--- NOTE | 2017-04-12 07:35 | Consultant Recommendations ---
Supervisor Whipped Topping Recommendations Date of Service Apr 12, 2017. Supervisor Whipped Topping Recommendations Please have this patient f/u in the pulmonary clinic in the next month to monitor his pleural effusion. A CXR prior to the visit would be of great benefit if possible.
--- NOTE | 2017-04-12 09:23 | Hematology/Oncology Prog Note ---
Hematology/Onc Progress Note Date of Service Apr 12, 2017. Diagnoses Metastatic renal cell carcinoma Pulmonary infiltrates Renal insufficiency Medications Medications Administered Medications (Trade) Dose Ordered Sig/Edward Route Start Time Stop Time Status Last Admin Dose Admin Heparin Sodium (Porcine) (Heparin Sq 5000 Unit/0.5ml) 5,000 unit Q12 SQ 04/09/17 21:00 05/09/17 20:59 04/11/17 21:53 5,000 UNIT Insulin Aspart (novoLOG ASPART) SLIDING SCALE If C... ACHS SC 04/09/17 12:30 05/09/17 12:29 04/11/17 21:52 8 UNITS Amlodipine Besylate (Norvasc Tab) 10 mg DAILY PO 04/10/17 09:00 05/10/17 08:59 04/11/17 08:42 10 MG Escitalopram Oxalate (Lexapro Tab) 10 mg DAILY PO 04/10/17 09:00 05/10/17 08:59 04/11/17 09:44 10 MG Ferrous Sulfate (Feosol Tab) 325 mg BID PO 04/09/17 21:00 05/09/17 20:59 04/11/17 21:50 325 MG Insulin Glargine (Lantus Solostar Pen) 14 units QPM SC 04/09/17 21:00 04/12/17 08:57 DC 04/11/17 21:52 14 UNITS Prednisone (PredniSONE TAB) 5 mg DAILY PO 04/10/17 09:00 05/10/17 08:59 04/11/17 09:44 5 MG Senna/Docusate Sodium (Senokot S Tab) 1 tab DAILY PO 04/10/17 09:00 05/10/17 08:59 04/11/17 09:43 1 TAB Simvastatin (Zocor Tab) 20 mg QPM PO 04/09/17 21:00 05/09/17 20:59 04/11/17 21:50 20 MG Terazosin HCl (Hytrin Cap) 5 mg HS PO 04/09/17 21:00 05/09/17 20:59 04/11/17 21:50 5 MG Levofloxacin 750 mg/Prmx 150 ml @ 100 mls/hr Q48H IV 04/09/17 13:00 04/16/17 12:59 04/11/17 12:23 100 MLS/HR Piperacillin Sod/ Tazobactam Sod 3.375 gm/Dextrose 115 ml @ 28.75 mls/ hr Q8H IV 04/09/17 20:00 04/16/17 19:59 04/12/17 04:24 28.75 MLS/HR Aspirin (Ecotrin Tab) 81 mg QAM PO 04/10/17 09:00 05/10/17 08:59 04/11/17 09:44 81 MG Nystatin (Mycostatin Susp) 5 ml QID PO 04/09/17 13:00 04/19/17 12:59 04/11/17 21:51 5 ML Clotrimazole (Mycelex 10MG Christina) 1 christina QID MT 04/09/17 13:00 04/19/17 12:59 04/11/17 21:50 1 CHRISTINA Morphine Sulfate (MoRPHine SULFATE INJ) 4 mg STK-MED ONCE .ROUTE 04/09/17 11:40 04/09/17 11:41 DC 04/09/17 11:45 4 MG Hydromorphone HCl (Dilaudid Inj) 1 mg Q4 PRN IV 04/09/17 11:45 04/23/17 11:44 04/12/17 04:28 1 MG Piperacillin Sod/ Tazobactam Sod 3.375 gm/Dextrose 115 ml @ 230 mls/hr NOW ONCE IV 04/09/17 12:30 04/09/17 12:59 DC 04/09/17 16:20 230 MLS/HR Vancomycin HCl 2000 mg/Sodium Chloride 540 ml @ 200 mls/hr ONE ONCE IV 04/09/17 12:45 04/09/17 15:26 DC 04/09/17 15:06 200 MLS/HR Furosemide 80 mg/ Syringe 8 ml @ 4 mls/min TODAY@1445 ONCE IV 04/09/17 14:45 04/09/17 14:46 DC 04/09/17 15:10 4 MLS/MIN Vancomycin HCl 1250 mg/Sodium Chloride 275 ml @ 125 mls/hr Q36H IV 04/11/17 03:00 04/18/17 02:59 04/11/17 02:25 125 MLS/HR Levalbuterol (Xopenex 1.25MG/ 3ML Neb) 1.25 mg Q6R INH 04/09/17 21:00 05/09/17 20:59 04/12/17 07:16 1.25 MG Ipratropium [place] (Atrovent 0.02% 0.5MG/2.5ML Neb) 0.5 mg Q6R INH 04/09/17 21:00 05/09/17 20:59 04/12/17 07:16 0.5 MG Metoprolol Tartrate (Lopressor Iv) 5 mg NOW STAT IV 04/09/17 15:35 04/09/17 16:39 DC 04/09/17 16:56 5 MG Metoprolol Succinate (Toprol Xl Tab) 50 mg BID PO 04/09/17 21:00 04/11/17 08:00 DC 04/10/17 20:34 50 MG Hydralazine HCl (Apresoline Tab) 25 mg TID PO 04/09/17 21:00 04/11/17 10:45 DC 04/11/17 08:41 25 MG Enteral Nutritional Formula (Boost Glucose Control) 1 can BID PO 04/09/17 21:00 04/10/17 14:05 DC 04/10/17 09:50 1 CAN Furosemide 80 mg/ Syringe 8 ml @ 4 mls/min TODAY@1000 IV 04/10/17 10:00 04/10/17 11:00 DC 04/10/17 10:33 4 MLS/MIN Methylprednisolone Sodium Succinate 50 mg/Syringe 0.8 ml @ 1.5 mls/min Q12 IV 04/10/17 21:00 05/10/17 20:59 04/11/17 21:51 1.5 MLS/MIN Epoetin Mohsen (Procrit Inj) 20,000 units 1600 SQ 04/10/17 16:00 04/10/17 16:01 DC 04/10/17 17:08 20,000 UNITS Enteral Nutritional Formula (Boost Glucose Control) 1 can BIDM PO 04/10/17 16:45 05/10/17 16:44 04/11/17 17:03 1 CAN Metoprolol Succinate (Toprol Xl Tab) 100 mg BID PO 04/11/17 09:00 05/09/17 20:59 04/11/17 21:50 100 MG Potassium Chloride (Klor-Con M10) 20 meq TODAY@1200 ONCE PO 04/11/17 12:00 04/11/17 12:01 DC 04/11/17 12:23 20 MEQ Potassium Chloride (Klor-Con M10) 20 meq NOW ONCE PO 04/11/17 09:00 04/11/17 09:01 DC 04/11/17 09:50 20 MEQ Hydralazine HCl (Apresoline Tab) 50 mg TID PO 04/11/17 14:00 05/09/17 20:59 04/11/17 21:51 50 MG Subjective Seems very comfortable. Pleural fluid negative for malignancy. Denies new shortness of breath. Review of Systems: Constitutional: Negative for night sweats, or fever Eyes: Negative for event change of vision ENT: Negative for epistaxis, nasal discharge, sore throat, or deafness Cardiovascular: Negative for chest pain, palpitations, dizziness, diaphoresis Respiratory: Negative for new shortness of breath,hemoptysis, or purulent cough Gastrointestinal: Negative for diarrhea, hematemesis, melena, nausea, vomiting , or dyspepsia Integumentary (skin): Negative for rash or jaundice discoloration Genitourinary: Negative for urinary frequency, hematuria, or dysuria Neurological: Negative for weakness, seizure activity, headache, or dizziness Lymphatic/Hematologic: Negative for petechiae, bleeding or new adenopathy Musculoskeletal: Negative for new joint or back pain Allergic/Immunologic: Negative for unusual rash or pruritis. Vital Signs Vital Signs Past 12 Hours Date Time Temp Pulse Resp B/P (MAP) Pulse Ox O2 Delivery O2 Flow Rate FiO2 04/12/17 07:51 36.7 96 18 160/77 (104) 99 04/12/17 07:18 97 16 94 Room Air 04/12/17 03:00 37.0 97 18 160/76 (104) 94 Room Air 04/12/17 00:00 93 04/11/17 23:10 36.8 101 18 153/73 (99) 93 Room Air Physical Exam Constitutional: vitals are stable. Eyes: Eyes are YSABEL EOMI without conjuctival erythema or icterus. ENT: External examination was negative for masses. Neck: Negative for masses or palpable thyromegaly Respiratory: Lung sounds were generally clear bilaterally Cardiovascular: Heart was RRR without significant murmur, gallops aoe rubs Gastrointestinal: No palpable hepatic or splenomegaly. The abdomen was soft with normal bowel sounds. Lymphatic system: there was no palpable peripheral lymphadenopathy Musculoskeletal System: The musculoskeletal system seemed concordant with age. Skin: The skin was negative for jaundice. Neurologic exam: The exam was negative for any focal findings. Deep tendon reflexes were equal and symmetrical. Psychiatric exam: Was essentially negative with normal mood and effect. Extremities: Negative for edema or erythema Laboratory Last 24 Hours Test 04/11/17 10:49 04/11/17 17:14 04/11/17 20:21 04/11/17 20:22 Bedside Glucose 237 mg/dl 241 mg/dl 325 mg/dl 331 mg/dl Test 04/11/17 20:42 04/12/17 06:17 04/12/17 06:34 Stool Occult Blood NEGATIVE White Blood Count 12.00 K/uL Red Blood Count 3.31 M/uL Hemoglobin 8.7 g/dL Hematocrit 27.2 % Mean Corpuscular Volume 82.2 fL Mean Corpuscular Hemoglobin 26.3 pg Mean Corpuscular Hemoglobin Concent 32.0 g/dl RDW Standard Deviation 49.0 fL RDW Coefficient of Variation 16.2 % Platelet Count 261 K/uL Mean Platelet Volume 9.5 fL Sodium Level 142 mmol/L Potassium Level 3.9 mmol/L Chloride Level 108 mmol/L Carbon Dioxide Level 25 mmol/L Anion Gap 9.0 mmol/L Blood Urea Nitrogen 51 mg/dl Creatinine 4.00 mg/dl Est Creatinine Clear Calc Drug Dose 19.5 ml/min Estimated GFR () 17.3 Estimated GFR (Non- 14.9 BUN/Creatinine Ratio 12.8 Random Glucose 201 mg/dl Calcium Level 8.8 mg/dl Phosphorus Level 2.4 mg/dl Iron Level 89 mcg/dl Total Iron Binding Capacity 163 mcg/dl Transferrin 129 mg/dl Transferrin % Saturation 49 % Ferritin 258.2 ng/ml Bedside Glucose 203 mg/dl Assessment & Plan Seems very comfortable. I think at this time we can switch the IV steroids to oral prednisone. Believe a fair dose to begin with is 100 mg a day given in divided doses. If stable the next day or 2 he can probably be discharged and we will see him in our clinic. At that time we will be switching to a multitargeted petechiae inhibitor.
[2017-04-12] MEDS: BOOST GLUCOSE CONTROL PO SCH ×2 (09:32→16:58)
[2017-04-12] MEDS: ESCITALOPRAM OXALATE 10 MG TAB PO SCH ×2 (09:35→09:38)
[2017-04-12] MEDS: CLOTRIMAZOLE 10 MG TROCHE MT SCH ×4 (09:35→21:02)
[2017-04-12] MEDS: METOPROLOL SUCC 50MG EXT REL TAB PO SCH ×2 (09:35→20:59)
[2017-04-12] MEDS: DOCUSATE SODIUM/SENNA 50/8.6MG TAB PO SCH (09:35)
[2017-04-12] MEDS: ASPIRIN 81 MG ECTAB PO SCH (09:35)
[2017-04-12] MEDS: FERROUS SULFATE 325 MG TAB PO SCH ×2 (09:35→20:59)
[2017-04-12] MEDS: AMLODIPINE BESYLATE 5 MG TAB PO SCH (09:35)
[2017-04-12] MEDS: METHYLPREDNISOLONE IV 50 MG in SYRINGE 0 ML IV SCH (09:36)
[2017-04-12] MEDS: NYSTATIN SUSP 500,000 U/5 ML UDC PO SCH ×4 (09:36→20:59)
[2017-04-12] MEDS: INSULIN ASPART 100 UNITS/ML 3 ML PEN SC SCH ×4 (09:41→21:00)
[2017-04-12] MEDS: HEPARIN SOD 5000 UNIT/0.5 ML CARP SQ SCH ×2 (09:42→21:01)
[2017-04-12] MEDS: INSULIN GLARGINE SOLOSTAR 100 UNITS/ML 3 ML PEN SC SCH ×2 (09:42→21:01)
--- NOTE | 2017-04-12 09:43 | Nephrology Progress Note ---
Nephrology Progress Note Date of Service Apr 12, 2017. Chief Complaint F/U for advanced chronic kidney disease. Roland Causey was seen and examined. Abdominal and flank pain better, appetite improved , SOB resolved. BP still suboptimally controlled. UO decent, electrolyte acceptable although renal function has been slowly worsening. Review of Systems A complete review of systems was performed. Pertinent positives are noted above. All other systems are negative. Vital Signs Last 8 Hrs Date Time Temp Pulse Resp B/P (MAP) Pulse Ox O2 Delivery O2 Flow Rate FiO2 04/12/17 07:51 36.7 96 18 160/77 (104) 99 04/12/17 07:18 97 16 94 Room Air 04/12/17 03:00 37.0 97 18 160/76 (104) 94 Room Air Last Recorded Weight Weight (Kilograms): 87.400 Physical Exam GENERAL: middle aged male,, AAA x 3, in no distress. NECK: Supple, no JVD. RESPIRATORY: clear to auscultation CARDIOVASCULAR: S1, S2 normal, rate rhythm regular. EXTREMITY: No lower extremity edema NEURO: speech fluent. PSYCHIATRY: Normal mood and judgment Family History Cervical cancer Diabetes mellitus Heart disease Hypertension Myocardial infarction Pancreatic cancer Prostate cancer Social History Smokeless Tobacco Use: No Alcohol Use: none Drug Use: none Marital Status: single Housing Status: lives alone Occupation: retired Laboratory Results Past 24 Hours 04/12/17 06:17 04/12/17 06:17 Test 04/11/17 10:49 04/11/17 17:14 04/11/17 20:21 04/11/17 20:22 Bedside Glucose 237 mg/dl (70-99) 241 mg/dl (70-99) 325 mg/dl (70-99) 331 mg/dl (70-99) Test 04/11/17 20:42 04/12/17 06:17 04/12/17 06:34 Stool Occult Blood NEGATIVE (NEGATIVE) Red Blood Count 3.31 M/uL (4.7-6.1) Mean Corpuscular Volume 82.2 fL (80-100) Mean Corpuscular Hemoglobin 26.3 pg (25-34) Mean Corpuscular Hemoglobin Concent 32.0 g/dl (32-36) RDW Standard Deviation 49.0 fL (36.4-46.3) RDW Coefficient of Variation 16.2 % (11.5-14.5) Mean Platelet Volume 9.5 fL (7.4-10.4) Anion Gap 9.0 mmol/L (3-11) Est Creatinine Clear Calc Drug Dose 19.5 ml/min Estimated GFR () 17.3 Estimated GFR (Non- 14.9 BUN/Creatinine Ratio 12.8 (10-20) Calcium Level 8.8 mg/dl (8.5-10.1) Phosphorus Level 2.4 mg/dl (2.5-4.9) Iron Level 89 mcg/dl (35-175) Total Iron Binding Capacity 163 mcg/dl (250-450) Transferrin 129 mg/dl (200-360) Transferrin % Saturation 49 % (20-50) Ferritin 258.2 ng/ml (8.0-388.0) Bedside Glucose 203 mg/dl (70-99) Allergies Coded Allergies: Iodinated Diagnostic Agents (Verified Allergy, Unknown, oil based, severe headaches, 10/27/16) EVENT OCCURED IN 1971, PT STATES HE HAS HAD 3 DIFFERENT WATER BASED IVP DYES WITH NO ISSUE Medications Current Inpatient Medications Medications (Trade) Dose Ordered Sig/Edward Route Start Time Stop Time Status Last Admin Dose Admin Heparin Sodium (Porcine) (Heparin Sq 5000 Unit/0.5ml) 5,000 unit Q12 SQ 04/09/17 21:00 05/09/17 20:59 04/11/17 21:53 5,000 UNIT Acetaminophen (Tylenol Tab) 650 mg Q4H PRN PO 04/09/17 10:30 05/09/17 10:29 Al Hydrox/Mg Hydrox/Simethicone (Maalox Max Susp) 15 ml Q4H PRN PO 04/09/17 10:30 05/09/17 10:29 Magnesium Hydroxide (Milk Of Magnesia Susp) 30 ml Q12H PRN PO 04/09/17 10:30 05/09/17 10:29 Ondansetron HCl (Zofran Inj) 4 mg Q6H PRN IV 04/09/17 10:30 05/09/17 10:29 Polyethylene (Miralax Powder Packet) 17 gm DAILY PRN PO 04/09/17 10:30 05/09/17 10:29 Insulin Aspart (novoLOG ASPART) SLIDING SCALE If C... ACHS SC 04/09/17 12:30 10/17/17 12:29 04/11/17 21:52 8 UNITS Glucose (Glucose 40% Gel) 15-30 GRAMS 15 GRAMS... UD PRN PO 04/09/17 10:30 05/09/17 10:29 Glucose (Glucose Chew Tab) 4-8 Tablets 4 Tabl... UD PRN PO 04/09/17 10:30 05/09/17 10:29 Dextrose (Dextrose 50% 50ML Syringe) 25-50ML OF 50% DW IV FOR... UD PRN IV 04/09/17 10:30 05/09/17 10:29 Glucagon (Glucagon Inj) 1 mg UD PRN SQ 04/09/17 10:30 05/09/17 10:29 Amlodipine Besylate (Norvasc Tab) 10 mg DAILY PO 04/10/17 09:00 05/10/17 08:59 04/11/17 08:42 10 MG Escitalopram Oxalate (Lexapro Tab) 10 mg DAILY PO 04/10/17 09:00 05/10/17 08:59 04/11/17 09:44 10 MG Ferrous Sulfate (Feosol Tab) 325 mg BID PO 04/09/17 21:00 05/09/17 20:59 04/11/17 21:50 325 MG Prednisone (PredniSONE TAB) 5 mg DAILY PO 04/10/17 09:00 05/10/17 08:59 04/11/17 09:44 5 MG Senna/Docusate Sodium (Senokot S Tab) 1 tab DAILY PO 04/10/17 09:00 05/10/17 08:59 04/11/17 09:43 1 TAB Simvastatin (Zocor Tab) 20 mg QPM PO 04/09/17 21:00 05/09/17 20:59 04/11/17 21:50 20 MG Terazosin HCl (Hytrin Cap) 5 mg HS PO 04/09/17 21:00 05/09/17 20:59 04/11/17 21:50 5 MG Levofloxacin 750 mg/Prmx 150 ml @ 100 mls/hr Q48H IV 04/09/17 13:00 04/16/17 12:59 04/11/17 12:23 100 MLS/HR Piperacillin Sod/ Tazobactam Sod 3.375 gm/Dextrose 115 ml @ 28.75 mls/ hr Q8H IV 04/09/17 20:00 04/16/17 19:59 04/12/17 04:24 28.75 MLS/HR Aspirin (Ecotrin Tab) 81 mg QAM PO 04/10/17 09:00 05/10/17 08:59 04/11/17 09:44 81 MG Nystatin (Mycostatin Susp) 5 ml QID PO 04/09/17 13:00 04/19/17 12:59 04/11/17 21:51 5 ML Clotrimazole (Mycelex 10MG Christina) 1 christina QID MT 04/09/17 13:00 04/19/17 12:59 04/11/17 21:50 1 CHRISTINA Hydromorphone HCl (Dilaudid Inj) 1 mg Q4 PRN IV 04/09/17 11:45 04/23/17 11:44 04/12/17 04:28 1 MG Piperacillin Sod/ Tazobactam Sod (Consult) 1 ea UD PRN N/A 04/09/17 12:00 05/09/17 11:59 Vancomycin HCl (Consult) 1 ea UD PRN N/A 04/09/17 12:00 05/09/17 11:59 Vancomycin HCl 1250 mg/Sodium Chloride 275 ml @ 125 mls/hr Q36H IV 04/11/17 03:00 04/18/17 02:59 04/11/17 02:25 125 MLS/HR Levalbuterol (Xopenex 1.25MG/ 3ML Neb) 1.25 mg Q6R INH 04/09/17 21:00 05/09/17 20:59 04/12/17 07:16 1.25 MG Ipratropium [place] (Atrovent 0.02% 0.5MG/2.5ML Neb) 0.5 mg Q6R INH 04/09/17 21:00 05/09/17 20:59 04/12/17 07:16 0.5 MG Methylprednisolone Sodium Succinate 50 mg/Syringe 0.8 ml @ 1.5 mls/min Q12 IV 04/10/17 21:00 05/10/17 20:59 04/11/17 21:51 1.5 MLS/MIN Enteral Nutritional Formula (Boost Glucose Control) 1 can BIDM PO 04/10/17 16:45 05/10/17 16:44 04/11/17 17:03 1 CAN Metoprolol Succinate (Toprol Xl Tab) 100 mg BID PO 04/11/17 09:00 05/09/17 20:59 04/11/17 21:50 100 MG Hydralazine HCl (Apresoline Tab) 50 mg TID PO 04/11/17 14:00 05/09/17 20:59 04/11/17 21:51 50 MG Hydralazine HCl (HydrALAZINE INJ) 10 mg Q4H PRN IV. 04/11/17 10:45 05/11/17 10:44 Insulin Glargine (Lantus Solostar Pen) 20 units QPM SC 04/12/17 21:00 05/09/17 20:59 Insulin Glargine (Lantus Solostar Pen) 5 units QAM SC 04/12/17 09:00 05/12/17 08:59 Impression (1) Kidney disease, chronic, stage IV (GFR 15-29 ml/min) (2) Pneumonia (3) Abdominal pain (4) Anemia (5) Hypertension (6) H/O unilateral nephrectomy Padilla is a 61-year-old gentlemen with stage 4 chronic kidney disease with solitary right kidney s/p left nephrectomy in 2016 for metastatic renal cell carcinoma. Cr has been around 3.0-3.5 lately. Has retroperitoneal lymphadenopathy and right kidney hyperdense lesion and possible lung metastasis. Admitted with fever, SOB and desaturation due to pneumonia, left pleural effusion and possible pneumonitis. On vancomycin, Zosyn and Levaquin, left pleural tap and now on steroid. He has high grade proteinuria and has been on lisinopril and Lasix, now on hold. Previously could not tolerate Sutent due to high grade proteinuria and poorly- controlled hypertension. Has been on Opdivo last dose was on 04/07/17, but previously caused arthralgia, colitis and now possible pneumonitis. Plan to try a different TK inhibitor once clinically stable. Epogen 59967 units x 1 dose ( Ok with Oncology as per discussion with Feliberto Lord) given on 04/10/17 On admission cr was at b/l but has been slightly worsening since, but electrolyte and volume status stable, no clear uremic symptoms. left arm AVF placed on 03/22/17, now maturing. Recommendations --continue metoprolol and amlodipine, increase hydralazine to 100 TID --left arm AV fistula is maturing, may take several weeks before we can use however there is no acute indication for dialysis at this point, he has been non oliguric, electrolyte acceptable although renal function has been slightly worsening --will monitor with daily renal panel and assess for need for [employer], will try to avoid TDC with on going pneumonia/pneumonitis , on steroid and antibiotic.
--- NOTE | 2017-04-12 10:20 | Hospitalist Progress Note ---
Hospitalist Progress Note Date of Service Apr 12, 2017. (Jaimie Beltran CRNP) Subjective Pt evaluation today including: conversation w/ patient, physical exam, chart review, lab review, review of studies, review of inpatient medication list Pain: mild right flank Voiding: no voiding problems Mr. Christy continues to feel he is improving. He has not required oxygen yesterday or over the night and does not feel short of breath unless he has been exerting himself for a bit. Respiratory: + dyspnea on exertion, No cough, No sputum, No dyspnea at rest Abdomen: + problem reported (tender abdomen, mild right flank pain) Male : No dysuria, No urinary frequency, No incontinence All Other Systems: Reviewed and Negative (Jaimie Beltran CRNP) Medications Last 24 Hours Test 04/11/17 10:49 04/11/17 17:14 04/11/17 20:21 04/11/17 20:22 Bedside Glucose 237 mg/dl 241 mg/dl 325 mg/dl 331 mg/dl Test 04/11/17 20:42 04/12/17 06:17 04/12/17 06:34 Stool Occult Blood NEGATIVE White Blood Count 12.00 K/uL Red Blood Count 3.31 M/uL Hemoglobin 8.7 g/dL Hematocrit 27.2 % Mean Corpuscular Volume 82.2 fL Mean Corpuscular Hemoglobin 26.3 pg Mean Corpuscular Hemoglobin Concent 32.0 g/dl RDW Standard Deviation 49.0 fL RDW Coefficient of Variation 16.2 % Platelet Count 261 K/uL Mean Platelet Volume 9.5 fL Sodium Level 142 mmol/L Potassium Level 3.9 mmol/L Chloride Level 108 mmol/L Carbon Dioxide Level 25 mmol/L Anion Gap 9.0 mmol/L Blood Urea Nitrogen 51 mg/dl Creatinine 4.00 mg/dl Est Creatinine Clear Calc Drug Dose 19.5 ml/min Estimated GFR () 17.3 Estimated GFR (Non- 14.9 BUN/Creatinine Ratio 12.8 Random Glucose 201 mg/dl Calcium Level 8.8 mg/dl Phosphorus Level 2.4 mg/dl Iron Level 89 mcg/dl Total Iron Binding Capacity 163 mcg/dl Transferrin 129 mg/dl Transferrin % Saturation 49 % Ferritin 258.2 ng/ml Bedside Glucose 203 mg/dl (Jaimie Beltran CRNP) Objective Vital Signs Date Time Temp Pulse Resp B/P (MAP) Pulse Ox O2 Delivery O2 Flow Rate FiO2 04/12/17 07:51 36.7 96 18 160/77 (104) 99 04/12/17 07:18 97 16 94 Room Air 04/12/17 03:00 37.0 97 18 160/76 (104) 94 Room Air 04/12/17 00:00 93 04/11/17 23:10 36.8 101 18 153/73 (99) 93 Room Air 04/11/17 20:00 98 16 93 Room Air 04/11/17 20:00 93 04/11/17 19:39 37.0 97 18 152/74 (100) 93 Room Air 04/11/17 16:00 36.9 97 20 142/71 (94) 94 Room Air 04/11/17 16:00 Room Air 04/11/17 14:14 98 16 92 Room Air 04/11/17 12:00 Room Air 04/11/17 11:11 37.3 98 18 160/77 (104) 93 Room Air (Jaimie Beltran CRNP) Physical Exam General Appearance: WD/WN, no apparent distress Eyes: normal inspection Respiratory/Chest: chest non-tender, lungs clear, no respiratory distress, no accessory muscle use, + decreased breath sounds (right base) Cardiovascular: regular rate, rhythm, no edema, no gallop, no murmur Abdomen: normal bowel sounds, soft, + tenderness Neurologic/Psychiatric: alert, normal mood/affect, oriented x 3 Skin: normal color, warm/dry (Jaimie Beltran CRNP) Laboratory Results 04/12/17 06:17 04/12/17 06:17 Test 04/09/17 09:55 04/09/17 10:43 04/09/17 11:46 04/09/17 21:05 Urine Color YELLOW Urine Appearance CLEAR (CLEAR) Urine pH 5.0 (4.5-7.5) Urine Specific Gardner 1.023 (1.000-1.030) Urine Protein 3+ (NEG) Urine Glucose (UA) NEG (NEG) Urine Ketones NEG (NEG) Urine Occult Blood TRACE (NEG) Urine Nitrite NEG (NEG) Urine Bilirubin NEG (NEG) Urine Urobilinogen NEG (NEG) Urine Leukocyte Esterase NEG (NEG) Urine WBC (Auto) 1-5 /hpf (0-5) Urine RBC (Auto) 0-4 /hpf (0-4) Urine Hyaline Casts (Auto) 1-5 /lpf (0-5) Urine Epithelial Cells (Auto) 10-20 /lpf (0-5) Urine Bacteria (Auto) NEG (NEG) Lab Scanned Report Lab Referral [id number] Immature Granulocyte % (Auto) 0.3 % White Blood Count 9.17 K/uL (4.8-10.8) Red Blood Count 3.06 M/uL (4.7-6.1) Hemoglobin 8.2 g/dL (14.0-18.0) Hematocrit 25.6 % (42-52) Mean Corpuscular Volume 83.7 fL (80-100) Mean Corpuscular Hemoglobin 26.8 pg (25-34) Mean Corpuscular Hemoglobin Concent 32.0 g/dl (32-36) Platelet Count 193 K/uL (130-400) Mean Platelet Volume 10.0 fL (7.4-10.4) Neutrophils (%) (Auto) 77.6 % Lymphocytes (%) (Auto) 10.0 % Monocytes (%) (Auto) 10.5 % Eosinophils (%) (Auto) 1.4 % Basophils (%) (Auto) 0.2 % Neutrophils # (Auto) 7.11 K/uL (1.4-6.5) Lymphocytes # (Auto) 0.92 K/uL (1.2-3.4) Monocytes # (Auto) 0.96 K/uL (0.11-0.59) Eosinophils # (Auto) 0.13 K/uL (0-0.5) Basophils # (Auto) 0.02 K/uL (0-0.2) Immature Granulocyte # (Auto) 0.03 K/uL (0.00-0.02) Polychromasia 1+ Basophilic Stippling 1+ Prothrombin Time 11.1 SECONDS (9.0-12.0) Prothromb Time International Ratio 1.0 (0.9-1.1) Total Bilirubin 0.4 mg/dl (0.2-1) Aspartate Amino Transf (AST/SGOT) 13 U/L (15-37) Alanine Aminotransferase (ALT/SGPT) 16 U/L (12-78) Alkaline Phosphatase 45 U/L (45-117) Total Protein 5.6 gm/dl (6.4-8.2) Albumin 2.2 gm/dl (3.4-5.0) Globulin 3.4 gm/dl (2.5-4.0) Albumin/Globulin Ratio 0.6 (0.9-2) Troponin I 0.103 ng/ml (0-0.045) Test 04/10/17 00:00 04/10/17 06:29 04/10/17 10:42 04/10/17 10:54 Pleural Fluid Source LEFT LUNG Pleural Fluid Color YELLOW Pleural Fluid Appearance CLEAR Pleural Fluid WBC 103 /uL Pleural Fluid RBC < 3000 /uL Pleural Fluid pH 7.43 (7.3-7.4) Pleural Fluid Polynuclear WBCs % 34.7 % Pleural Fluid Mononuclear WBCs % 65.3 % Pleural Fluid Total Protein 1.2 g/dl Pleural Fluid LDH 90 IU Pleural Fluid Glucose 142 mg/dl Pleural Fluid Amylase 15 U/L Nucleated RBC Absolute Count (auto) 0.00 K/uL (0-0) Nucleated Red Blood Cells % 0.0 % Absolute Reticulocyte Count 0.07 10^6/uL (0.02-0.10) Percent Reticulocyte Count 2.3 % (0.5-2.0) Magnesium Level 2.3 mg/dl (1.8-2.4) Lactic Acid Level 0.7 mmol/L (0.4-2.0) Arterial Blood pH 7.44 (7.35-7.45) Arterial Blood Partial Pressure CO2 41 mmHg (35-46) Arterial Blood Partial Pressure O2 89 mm/Hg (80-95) Arterial Blood HCO3 27 mmol/L (19-24) Arterial Blood Oxygen Saturation 94.4 % (90-95) Arterial Blood Base Excess 2.5 mEq/L (-9-1.8) Arterial Blood Gas Delivery 7 L Ezio Test POS (POS) Test 04/10/17 12:54 04/11/17 20:42 04/12/17 06:17 04/12/17 06:34 Stool Occult Blood NEGATIVE (NEGATIVE) Red Blood Count 3.31 M/uL (4.7-6.1) Mean Corpuscular Volume 82.2 fL (80-100) Mean Corpuscular Hemoglobin 26.3 pg (25-34) Mean Corpuscular Hemoglobin Concent 32.0 g/dl (32-36) RDW Standard Deviation 49.0 fL (36.4-46.3) RDW Coefficient of Variation 16.2 % (11.5-14.5) Mean Platelet Volume 9.5 fL (7.4-10.4) Anion Gap 9.0 mmol/L (3-11) Est Creatinine Clear Calc Drug Dose 19.5 ml/min Estimated GFR () 17.3 Estimated GFR (Non- 14.9 BUN/Creatinine Ratio 12.8 (10-20) Calcium Level 8.8 mg/dl (8.5-10.1) Phosphorus Level 2.4 mg/dl (2.5-4.9) Iron Level 89 mcg/dl (35-175) Total Iron Binding Capacity 163 mcg/dl (250-450) Transferrin 129 mg/dl (200-360) Transferrin % Saturation 49 % (20-50) Ferritin 258.2 ng/ml (8.0-388.0) Bedside Glucose 203 mg/dl (70-99) Date/Time Source Procedure Growth Status 04/10/17 00:00 Pleural Fluid (Thoracentesis) Left Acid Fast Stain - Final Resulted 04/10/17 00:00 Pleural Fluid (Thoracentesis) Left Mycobacterial Culture Pending Resulted Last 24 Hours Test 04/11/17 10:49 04/11/17 17:14 04/11/17 20:21 04/11/17 20:22 Bedside Glucose 237 mg/dl 241 mg/dl 325 mg/dl 331 mg/dl Test 04/11/17 20:42 04/12/17 06:17 04/12/17 06:34 Stool Occult Blood NEGATIVE White Blood Count 12.00 K/uL Red Blood Count 3.31 M/uL Hemoglobin 8.7 g/dL Hematocrit 27.2 % Mean Corpuscular Volume 82.2 fL Mean Corpuscular Hemoglobin 26.3 pg Mean Corpuscular Hemoglobin Concent 32.0 g/dl RDW Standard Deviation 49.0 fL RDW Coefficient of Variation 16.2 % Platelet Count 261 K/uL Mean Platelet Volume 9.5 fL Sodium Level 142 mmol/L Potassium Level 3.9 mmol/L Chloride Level 108 mmol/L Carbon Dioxide Level 25 mmol/L Anion Gap 9.0 mmol/L Blood Urea Nitrogen 51 mg/dl Creatinine 4.00 mg/dl Est Creatinine Clear Calc Drug Dose 19.5 ml/min Estimated GFR () 17.3 Estimated GFR (Non- 14.9 BUN/Creatinine Ratio 12.8 Random Glucose 201 mg/dl Calcium Level 8.8 mg/dl Phosphorus Level 2.4 mg/dl Iron Level 89 mcg/dl Total Iron Binding Capacity 163 mcg/dl Transferrin 129 mg/dl Transferrin % Saturation 49 % Ferritin 258.2 ng/ml Bedside Glucose 203 mg/dl (Jaimie Beltran CRNP) Assessment and Plan (1) Shortness of breath (2) Abdominal pain (3) Kidney disease, chronic, stage IV (GFR 15-29 ml/min) (4) Pneumonia (5) Hypertension (6) Anemia Mr. Christy is a 61 year old man here with acute hypoxic respiratory failure likely due to pneumonitis from Optivo treatments for renal cell carcinoma. Acute hypoxic respiratory failure - resolved, no longer needs supplemental oxygen. Bilateral pleural effusions status post thoracentesis 04/10/17 by pulmonary medicine. Fluid appeared transudative and not exudative, no apparent blood. Pneumonia, possible gram negative and MRSA vs Pneumonitis - De-escalation of antibiotic regimen, zosyn and vancomycin discontinued, will continue with Levaquin for a fifth dose tomorrow. Hypertension - continue amlodipine, hydralazine increased to 100mg bid by nephrology. Anemia, this is normocytic and likely due to chronic disease, no apparent bleeding and patient does have a history of anemia. No indication for transfusion at this time. Fecal occult negative. Renal cell carcinoma - oncology following, recent treatment with immunologic agent, concern for residual kidney mass seen on CT. Acute on chronic renal failure stage IV - avoid nephrotoxins and renal dose medications. Hyperglycemia - secondary to methylprednisolone, parameters of sliding scale changed to better control, increased basal insulin. Transfer to medical DVT prevention - heparin subq and SCDs Code status - full resuscitation (Jaimie Beltran CRNP) [employer] Physician Supervision Note: I interviewed and examined the patient. Discussed with Winnie Beltran NP and agree with findings and plan as documented in the note. Any exceptions or clarifications are listed here: None Patient was seen doing much better breathing on room air ambulation does have some dyspnea on exertion did have some minor increase of his creatinine to 4 51 blood pressures improved with escalation of his hydralazine dose is not however in good control as build once again titrate his hydralazine today is 5 vital signs showed blood pressure be 140s over 90s heart is regular lungs of decreased breath sounds at the right base minor crackles at the left abdomen is with minor discomfort more towards the left flank he however has a history of chronic back pain and she says this feels more like that to him and does not want any additional medications 61-year-old male with metastatic renal cell carcinoma presenting with bilateral pleural effusions initially proved to be transudate of and felt to be secondary to optivo associated pneumonitis With oversight from oncology will change steroids to by mouth recommending 100 mg total a day with slow taper transfer off telemetry continue with blood pressure control Documented By: Greyson Mabry (Greyson Mabry M.D.)
[2017-04-12] MEDS ORDERED: VANCOMYCIN TROUGH ONE (14:30)
[2017-04-12] MEDS: VANCOMYCIN INJ 1,250 MG in SODIUM CHLORIDE 0.9% 250ML 250 ML IV SCH (15:52)
[2017-04-12] MEDS: SIMVASTATIN 20 MG TAB PO SCH (21:02)
[2017-04-13] VITALS (11 sets, daily range): BP systolic 136–159; BP diastolic 67–96; PULSE 80–102; TEMP 36.3–37.2; O2SAT 91–97; Ht 177.8 cm; Wt 83.3 kg
[2017-04-13] MEDS: HYDROmorphone INJ 1 MG/ML SYR IV PRN ×5 (00:28→22:25)
[2017-04-13] MEDS: LEVALBUTEROL 1.25MG/3ML NEB INH SCH ×4 (02:05→19:14)
[2017-04-13] MEDS: IPRATROPIUM BROMIDE NEB SOLN 0.02% 2.5 ML VIAL INH SCH ×4 (02:05→19:15)
[2017-04-13] MEDS: PIPERACILL/TAZOBAC IV 3.375 GM in DEXTROSE 5% 100ML 100 ML IV SCH (05:04)
[2017-04-13] MEDS: ESCITALOPRAM OXALATE 10 MG TAB PO SCH (07:27)
[2017-04-13 08:35] LABS: HEMATOCRIT 30.1 % (42-52); MEAN CELL VOLUME 83.8 fL (80-100); MEAN CORPUSCULAR HEMOGLOBIN 26.2 pg (25-34); MEAN PLATELET VOLUME 9.7 fL (7.4-10.4); PLATELET COUNT 319 K/uL (130-400); RED BLOOD COUNT 3.59 M/uL (4.7-6.1); WHITE BLOOD COUNT 17.68 K/uL (4.8-10.8)
[2017-04-13] MEDS: INSULIN GLARGINE SOLOSTAR 100 UNITS/ML 3 ML PEN SC SCH ×2 (08:35→21:08)
[2017-04-13] MEDS: INSULIN ASPART 100 UNITS/ML 3 ML PEN SC SCH ×4 (08:35→21:07)
[2017-04-13 08:38] LABS: MEAN CORPUSCULAR HGB CONC 31.2 g/dl (32-36)
[2017-04-13] MEDS: CLOTRIMAZOLE 10 MG TROCHE MT SCH ×4 (08:43→21:04)
[2017-04-13] MEDS: BOOST GLUCOSE CONTROL PO SCH ×2 (08:46→17:14)
[2017-04-13] MEDS: ASPIRIN 81 MG ECTAB PO SCH (08:47)
[2017-04-13] MEDS: FERROUS SULFATE 325 MG TAB PO SCH ×2 (08:48→21:04)
[2017-04-13] MEDS: NYSTATIN SUSP 500,000 U/5 ML UDC PO SCH ×4 (08:48→21:04)
[2017-04-13 08:50] LABS: BUN/CREATININE RATIO 15.1 (10-20); CALCIUM 9.4 mg/dl (8.5-10.1); POTASSIUM 3.5 mmol/L (3.5-5.1)
[2017-04-13] MEDS: AMLODIPINE BESYLATE 5 MG TAB PO SCH (08:50)
[2017-04-13] MEDS: DOCUSATE SODIUM/SENNA 50/8.6MG TAB PO SCH (08:51)
[2017-04-13] MEDS: METOPROLOL SUCC 50MG EXT REL TAB PO SCH ×2 (08:52→21:05)
[2017-04-13] MEDS: HEPARIN SOD 5000 UNIT/0.5 ML CARP SQ SCH ×2 (09:00→21:08)
[2017-04-13 09:25] LABS: BASO % 0.1 %; BASO ABS # 0.01 K/uL (0-0.2); COMPLETE YES; IG% 2.4 %; LYMPH % 6.5 %; MONO % 7.1 %; NEUT % 83.9 %
--- NOTE | 2017-04-13 10:18 | Hematology/Oncology Prog Note ---
Hematology/Onc Progress Note Date of Service Apr 13, 2017. Diagnoses Metastatic renal cell carcinoma Pulmonary infiltrates Renal insufficiency Medications Medications Administered Medications (Trade) Dose Ordered Sig/Edward Route Start Time Stop Time Status Last Admin Dose Admin Heparin Sodium (Porcine) (Heparin Sq 5000 Unit/0.5ml) 5,000 unit Q12 SQ 04/09/17 21:00 05/09/17 20:59 04/13/17 09:00 5,000 UNIT Insulin Aspart (novoLOG ASPART) SLIDING SCALE If C... ACHS SC 04/09/17 12:30 05/09/17 12:29 04/13/17 08:35 14 UNITS Amlodipine Besylate (Norvasc Tab) 10 mg DAILY PO 04/10/17 09:00 05/10/17 08:59 04/13/17 08:50 10 MG Escitalopram Oxalate (Lexapro Tab) 10 mg DAILY PO 04/10/17 09:00 05/10/17 08:59 04/11/17 09:44 10 MG Ferrous Sulfate (Feosol Tab) 325 mg BID PO 04/09/17 21:00 05/09/17 20:59 04/13/17 08:48 325 MG Insulin Glargine (Lantus Solostar Pen) 14 units QPM SC 04/09/17 21:00 04/12/17 08:57 DC 04/11/17 21:52 14 UNITS Prednisone (PredniSONE TAB) 5 mg DAILY PO 04/10/17 09:00 04/12/17 18:30 DC 04/12/17 09:35 5 MG Senna/Docusate Sodium (Senokot S Tab) 1 tab DAILY PO 04/10/17 09:00 05/10/17 08:59 04/13/17 08:51 1 TAB Simvastatin (Zocor Tab) 20 mg QPM PO 04/09/17 21:00 05/09/17 20:59 04/12/17 21:02 20 MG Terazosin HCl (Hytrin Cap) 5 mg HS PO 04/09/17 21:00 05/09/17 20:59 04/12/17 20:59 5 MG Levofloxacin 750 mg/Prmx 150 ml @ 100 mls/hr Q48H IV 04/09/17 13:00 04/16/17 12:59 04/11/17 12:23 100 MLS/HR Piperacillin Sod/ Tazobactam Sod 3.375 gm/Dextrose 115 ml @ 28.75 mls/ hr Q8H IV 04/09/17 20:00 04/12/17 12:08 DC 04/12/17 04:24 28.75 MLS/HR Aspirin (Ecotrin Tab) 81 mg QAM PO 04/10/17 09:00 05/10/17 08:59 04/13/17 08:47 81 MG Nystatin (Mycostatin Susp) 5 ml QID PO 04/09/17 13:00 04/19/17 12:59 04/13/17 08:48 5 ML Clotrimazole (Mycelex 10MG Christina) 1 christina QID MT 04/09/17 13:00 04/19/17 12:59 04/13/17 08:43 1 CHRISTINA Morphine Sulfate (MoRPHine SULFATE INJ) 4 mg STK-MED ONCE .ROUTE 04/09/17 11:40 04/09/17 11:41 DC 04/09/17 11:45 4 MG Hydromorphone HCl (Dilaudid Inj) 1 mg Q4 PRN IV 04/09/17 11:45 04/23/17 11:44 04/13/17 07:18 1 MG Piperacillin Sod/ Tazobactam Sod 3.375 gm/Dextrose 115 ml @ 230 mls/hr NOW ONCE IV 04/09/17 12:30 04/09/17 12:59 DC 04/09/17 16:20 230 MLS/HR Vancomycin HCl 2000 mg/Sodium Chloride 540 ml @ 200 mls/hr ONE ONCE IV 04/09/17 12:45 04/09/17 15:26 DC 04/09/17 15:06 200 MLS/HR Furosemide 80 mg/ Syringe 8 ml @ 4 mls/min TODAY@1445 ONCE IV 04/09/17 14:45 04/09/17 14:46 DC 04/09/17 15:10 4 MLS/MIN Vancomycin HCl 1250 mg/Sodium Chloride 275 ml @ 125 mls/hr Q36H IV 04/11/17 03:00 04/13/17 08:07 DC 04/12/17 15:52 125 MLS/HR Levalbuterol (Xopenex 1.25MG/ 3ML Neb) 1.25 mg Q6R INH 04/09/17 21:00 05/09/17 20:59 04/13/17 07:15 1.25 MG Ipratropium [place] (Atrovent 0.02% 0.5MG/2.5ML Neb) 0.5 mg Q6R INH 04/09/17 21:00 05/09/17 20:59 04/13/17 07:15 0.5 MG Metoprolol Tartrate (Lopressor Iv) 5 mg NOW STAT IV 04/09/17 15:35 04/09/17 16:39 DC 04/09/17 16:56 5 MG Metoprolol Succinate (Toprol Xl Tab) 50 mg BID PO 04/09/17 21:00 04/11/17 08:00 DC 04/10/17 20:34 50 MG Hydralazine HCl (Apresoline Tab) 25 mg TID PO 04/09/17 21:00 04/11/17 10:45 DC 04/11/17 08:41 25 MG Enteral Nutritional Formula (Boost Glucose Control) 1 can BID PO 04/09/17 21:00 04/10/17 14:05 DC 04/10/17 09:50 1 CAN Furosemide 80 mg/ Syringe 8 ml @ 4 mls/min TODAY@1000 IV 04/10/17 10:00 04/10/17 11:00 DC 04/10/17 10:33 4 MLS/MIN Methylprednisolone Sodium Succinate 50 mg/Syringe 0.8 ml @ 1.5 mls/min Q12 IV 04/10/17 21:00 04/12/17 17:43 DC 04/12/17 09:36 1.5 MLS/MIN Epoetin Mohsen (Procrit Inj) 20,000 units 1600 SQ 04/10/17 16:00 04/10/17 16:01 DC 04/10/17 17:08 20,000 UNITS Enteral Nutritional Formula (Boost Glucose Control) 1 can BIDM PO 04/10/17 16:45 05/10/17 16:44 04/13/17 08:46 1 CAN Metoprolol Succinate (Toprol Xl Tab) 100 mg BID PO 04/11/17 09:00 05/09/17 20:59 04/13/17 08:52 100 MG Potassium Chloride (Klor-Con M10) 20 meq TODAY@1200 ONCE PO 04/11/17 12:00 04/11/17 12:01 DC 04/11/17 12:23 20 MEQ Potassium Chloride (Klor-Con M10) 20 meq NOW ONCE PO 04/11/17 09:00 04/11/17 09:01 DC 04/11/17 09:50 20 MEQ Hydralazine HCl (Apresoline Tab) 50 mg TID PO 04/11/17 14:00 04/12/17 09:30 DC 04/11/17 21:51 50 MG Insulin Glargine (Lantus Solostar Pen) 20 units QPM SC 04/12/17 21:00 05/09/17 20:59 04/12/17 21:01 20 UNITS Insulin Glargine (Lantus Solostar Pen) 5 units QAM SC 04/12/17 09:00 05/12/17 08:59 04/13/17 08:35 5 UNITS Hydralazine HCl (Apresoline Tab) 100 mg TID PO 04/12/17 14:00 05/09/17 20:59 04/13/17 08:46 100 MG Piperacillin Sod/ Tazobactam Sod 3.375 gm/Dextrose 115 ml @ 28.75 mls/ hr Q12H IV 04/12/17 16:00 04/13/17 08:07 DC 04/13/17 05:04 28.75 MLS/HR Prednisone (PredniSONE TAB) 50 mg BID PO 04/12/17 20:00 05/12/17 20:59 04/13/17 09:27 50 MG Subjective No new complaints. He states that his breathing continues to be quite good. Afebrile. Review of Systems: Constitutional: Negative for night sweats, or fever Eyes: Negative for event change of vision ENT: Negative for epistaxis, nasal discharge, sore throat, or deafness Cardiovascular: Negative for chest pain, palpitations, dizziness, diaphoresis Respiratory: Negative for new shortness of breath,hemoptysis, or purulent cough Gastrointestinal: Negative for diarrhea, hematemesis, melena, nausea, vomiting , or dyspepsia Integumentary (skin): Negative for rash or jaundice discoloration Genitourinary: Negative for urinary frequency, hematuria, or dysuria Neurological: Negative for weakness, seizure activity, headache, or dizziness Lymphatic/Hematologic: Negative for petechiae, bleeding or new adenopathy Musculoskeletal: Negative for new joint or back pain Allergic/Immunologic: Negative for unusual rash or pruritis. Vital Signs Vital Signs Past 12 Hours Date Time Temp Pulse Resp B/P (MAP) Pulse Ox O2 Delivery O2 Flow Rate FiO2 04/13/17 08:00 Room Air 04/13/17 07:33 37.2 80 12 159/74 (102) 93 04/13/17 07:16 92 14 96 Room Air 04/13/17 05:09 36.8 96 20 150/96 (114) 94 Room Air 04/13/17 00:55 36.9 96 18 145/78 (100) 91 Room Air 04/13/17 00:01 Room Air Physical Exam Constitutional: vitals are stable. Eyes: Eyes are YSABEL EOMI without conjuctival erythema or icterus. ENT: External examination was negative for masses. Neck: Negative for masses or palpable thyromegaly Respiratory: Lung sounds were generally clear bilaterally Cardiovascular: Heart was RRR without significant murmur, gallops aoe rubs Gastrointestinal: No palpable hepatic or splenomegaly. The abdomen was soft with normal bowel sounds. Lymphatic system: there was no palpable peripheral lymphadenopathy Musculoskeletal System: The musculoskeletal system seemed concordant with age. Skin: The skin was negative for jaundice. Neurologic exam: The exam was negative for any focal findings. Deep tendon reflexes were equal and symmetrical. Psychiatric exam: Was essentially negative with normal mood and effect. Extremities: Negative for edema erythema Laboratory Last 24 Hours Test 04/12/17 11:28 04/12/17 14:57 04/13/17 07:22 04/13/17 08:08 Bedside Glucose 316 mg/dl 228 mg/dl Vancomycin Level Trough 20.4 mcg/ml White Blood Count 17.68 K/uL Red Blood Count 3.59 M/uL Hemoglobin 9.4 g/dL Hematocrit 30.1 % Mean Corpuscular Volume 83.8 fL Mean Corpuscular Hemoglobin 26.2 pg Mean Corpuscular Hemoglobin Concent 31.2 g/dl Platelet Count 319 K/uL Mean Platelet Volume 9.7 fL Neutrophils (%) (Auto) 83.9 % Lymphocytes (%) (Auto) 6.5 % Monocytes (%) (Auto) 7.1 % Eosinophils (%) (Auto) 0.0 % Basophils (%) (Auto) 0.1 % Neutrophils # (Auto) 15.42 K/uL Lymphocytes # (Auto) 1.20 K/uL Monocytes # (Auto) 1.31 K/uL Eosinophils # (Auto) 0.00 K/uL Basophils # (Auto) 0.01 K/uL RDW Standard Deviation 50.5 fL RDW Coefficient of Variation 16.4 % Immature Granulocyte % (Auto) 2.4 % Immature Granulocyte # (Auto) 0.44 K/uL Nucleated RBC Absolute Count (auto) 0.11 K/uL Nucleated Red Blood Cells % 0.6 % Sodium Level 141 mmol/L Potassium Level 3.5 mmol/L Chloride Level 106 mmol/L Carbon Dioxide Level 25 mmol/L Anion Gap 10.0 mmol/L Blood Urea Nitrogen 60 mg/dl Creatinine 4.00 mg/dl Est Creatinine Clear Calc Drug Dose 19.5 ml/min Estimated GFR () 17.3 Estimated GFR (Non- 14.9 BUN/Creatinine Ratio 15.1 Random Glucose 207 mg/dl Calcium Level 9.4 mg/dl Assessment & Plan 10 used to do well. I suspect if okayed by other consultants that if all stable tomorrow he can be discharged on oral prednisone that he currently is on. We will arrange for follow-up early next week in our clinic to discuss the beginning of alternate oral multitargeted TK inhibitors
--- NOTE | 2017-04-13 13:10 | Nephrology Progress Note ---
Nephrology Progress Note Date of Service Apr 13, 2017. Chief Complaint F/U for advanced chronic kidney disease. Roland Causey was seen and examined this morning. Overall he has been feeling much better, walked around the hallways several times without getting short of breath tired. Blood pressure stable and improved. No significant sign of volume overload, denies any shortness of breath or chest pain. Renal function remained stable at creatinine 4.0, electrolyte acceptable Review of Systems A complete review of systems was performed. Pertinent positives are noted above. All other systems are negative. Vital Signs Last 8 Hrs Date Time Temp Pulse Resp B/P (MAP) Pulse Ox O2 Delivery O2 Flow Rate FiO2 04/13/17 11:41 36.3 88 12 136/74 (94) 95 Room Air 04/13/17 10:49 Room Air 04/13/17 08:00 Room Air 04/13/17 07:33 37.2 80 12 159/74 (102) 93 04/13/17 07:16 92 14 96 Room Air 04/13/17 05:09 36.8 96 20 150/96 (114) 94 Room Air Last Recorded Weight Weight (Kilograms): 82.600 Physical Exam GENERAL: middle aged male,, AAA x 3, in no distress. NECK: Supple, no JVD. RESPIRATORY: clear to auscultation CARDIOVASCULAR: S1, S2 normal, rate rhythm regular. EXTREMITY: No lower extremity edema NEURO: speech fluent. PSYCHIATRY: Normal mood and judgment Family History Cervical cancer Diabetes mellitus Heart disease Hypertension Myocardial infarction Pancreatic cancer Prostate cancer Social History Smokeless Tobacco Use: No Alcohol Use: none Drug Use: none Marital Status: single Housing Status: lives alone Occupation: retired Laboratory Results Past 24 Hours 04/13/17 08:08 Red Blood Count 3.59, Mean Corpuscular Volume 83.8, Mean Corpuscular Hemoglobin 26.2, Mean Corpuscular Hemoglobin Concent 31.2, Mean Platelet Volume 9.7, Neutrophils (%) (Auto) 83.9, Lymphocytes (%) (Auto) 6.5, Monocytes (%) (Auto) 7.1, Eosinophils (%) (Auto) 0.0, Basophils (%) (Auto) 0.1, Neutrophils # (Auto) 15.42, Lymphocytes # (Auto) 1.20, Monocytes # (Auto) 1.31, Eosinophils # (Auto) 0.00, Basophils # (Auto) 0.01 04/13/17 08:08 Test 04/12/17 14:57 04/13/17 07:22 04/13/17 08:08 04/13/17 11:37 Vancomycin Level Trough 20.4 mcg/ml (SEE COMMENT) Bedside Glucose 228 mg/dl (70-99) 311 mg/dl (70-99) White Blood Count 17.68 K/uL (4.8-10.8) Red Blood Count 3.59 M/uL (4.7-6.1) Hemoglobin 9.4 g/dL (14.0-18.0) Hematocrit 30.1 % (42-52) Mean Corpuscular Volume 83.8 fL (80-100) Mean Corpuscular Hemoglobin 26.2 pg (25-34) Mean Corpuscular Hemoglobin Concent 31.2 g/dl (32-36) Platelet Count 319 K/uL (130-400) Mean Platelet Volume 9.7 fL (7.4-10.4) Neutrophils (%) (Auto) 83.9 % Lymphocytes (%) (Auto) 6.5 % Monocytes (%) (Auto) 7.1 % Eosinophils (%) (Auto) 0.0 % Basophils (%) (Auto) 0.1 % Neutrophils # (Auto) 15.42 K/uL (1.4-6.5) Lymphocytes # (Auto) 1.20 K/uL (1.2-3.4) Monocytes # (Auto) 1.31 K/uL (0.11-0.59) Eosinophils # (Auto) 0.00 K/uL (0-0.5) Basophils # (Auto) 0.01 K/uL (0-0.2) RDW Standard Deviation 50.5 fL (36.4-46.3) RDW Coefficient of Variation 16.4 % (11.5-14.5) Immature Granulocyte % (Auto) 2.4 % Immature Granulocyte # (Auto) 0.44 K/uL (0.00-0.02) Nucleated RBC Absolute Count (auto) 0.11 K/uL (0-0) Nucleated Red Blood Cells % 0.6 % Anion Gap 10.0 mmol/L (3-11) Est Creatinine Clear Calc Drug Dose 19.5 ml/min Estimated GFR () 17.3 Estimated GFR (Non- 14.9 BUN/Creatinine Ratio 15.1 (10-20) Calcium Level 9.4 mg/dl (8.5-10.1) Allergies Coded Allergies: Iodinated Diagnostic Agents (Verified Allergy, Unknown, oil based, severe headaches, 10/27/16) EVENT OCCURED IN 1971, PT STATES HE HAS HAD 3 DIFFERENT WATER BASED IVP DYES WITH NO ISSUE Medications Current Inpatient Medications Medications (Trade) Dose Ordered Sig/Edward Route Start Time Stop Time Status Last Admin Dose Admin Heparin Sodium (Porcine) (Heparin Sq 5000 Unit/0.5ml) 5,000 unit Q12 SQ 04/09/17 21:00 05/09/17 20:59 04/13/17 09:00 5,000 UNIT Acetaminophen (Tylenol Tab) 650 mg Q4H PRN PO 04/09/17 10:30 05/09/17 10:29 Al Hydrox/Mg Hydrox/Simethicone (Maalox Max Susp) 15 ml Q4H PRN PO 04/09/17 10:30 05/09/17 10:29 Magnesium Hydroxide (Milk Of Magnesia Susp) 30 ml Q12H PRN PO 04/09/17 10:30 05/09/17 10:29 Ondansetron HCl (Zofran Inj) 4 mg Q6H PRN IV 04/09/17 10:30 05/09/17 10:29 Polyethylene (Miralax Powder Packet) 17 gm DAILY PRN PO 04/09/17 10:30 05/09/17 10:29 Insulin Aspart (novoLOG ASPART) SLIDING SCALE If C... ACHS SC 04/09/17 12:30 05/09/17 12:29 04/13/17 08:35 14 UNITS Glucose (Glucose 40% Gel) 15-30 GRAMS 15 GRAMS... UD PRN PO 04/09/17 10:30 05/09/17 10:29 Glucose (Glucose Chew Tab) 4-8 Tablets 4 Tabl... UD PRN PO 04/09/17 10:30 05/09/17 10:29 Dextrose (Dextrose 50% 50ML Syringe) 25-50ML OF 50% DW IV FOR... UD PRN IV 04/09/17 10:30 05/09/17 10:29 Glucagon (Glucagon Inj) 1 mg UD PRN SQ 04/09/17 10:30 05/09/17 10:29 Amlodipine Besylate (Norvasc Tab) 10 mg DAILY PO 04/10/17 09:00 05/10/17 08:59 04/13/17 08:50 10 MG Escitalopram Oxalate (Lexapro Tab) 10 mg DAILY PO 04/10/17 09:00 05/10/17 08:59 04/11/17 09:44 10 MG Ferrous Sulfate (Feosol Tab) 325 mg BID PO 04/09/17 21:00 05/09/17 20:59 04/13/17 08:48 325 MG Senna/Docusate Sodium (Senokot S Tab) 1 tab DAILY PO 04/10/17 09:00 05/10/17 08:59 04/13/17 08:51 1 TAB Simvastatin (Zocor Tab) 20 mg QPM PO 04/09/17 21:00 05/09/17 20:59 04/12/17 21:02 20 MG Terazosin HCl (Hytrin Cap) 5 mg HS PO 04/09/17 21:00 05/09/17 20:59 04/12/17 20:59 5 MG Levofloxacin 750 mg/Prmx 150 ml @ 100 mls/hr Q48H IV 04/09/17 13:00 04/16/17 12:59 04/11/17 12:23 100 MLS/HR Aspirin (Ecotrin Tab) 81 mg QAM PO 04/10/17 09:00 05/10/17 08:59 04/13/17 08:47 81 MG Nystatin (Mycostatin Susp) 5 ml QID PO 04/09/17 13:00 04/19/17 12:59 04/13/17 08:48 5 ML Clotrimazole (Mycelex 10MG Christina) 1 christina QID MT 04/09/17 13:00 04/19/17 12:59 04/13/17 08:43 1 CHRISTINA Hydromorphone HCl (Dilaudid Inj) 1 mg Q4 PRN IV 04/09/17 11:45 04/23/17 11:44 04/13/17 07:18 1 MG Levalbuterol (Xopenex 1.25MG/ 3ML Neb) 1.25 mg Q6R INH 04/09/17 21:00 05/09/17 20:59 04/13/17 07:15 1.25 MG Ipratropium [place] (Atrovent 0.02% 0.5MG/2.5ML Neb) 0.5 mg Q6R INH 04/09/17 21:00 05/09/17 20:59 04/13/17 07:15 0.5 MG Enteral Nutritional Formula (Boost Glucose Control) 1 can BIDM PO 04/10/17 16:45 05/10/17 16:44 04/13/17 08:46 1 CAN Metoprolol Succinate (Toprol Xl Tab) 100 mg BID PO 04/11/17 09:00 05/09/17 20:59 04/13/17 08:52 100 MG Hydralazine HCl (HydrALAZINE INJ) 10 mg Q4H PRN IV. 04/11/17 10:45 05/11/17 10:44 Insulin Glargine (Lantus Solostar Pen) 20 units QPM SC 04/12/17 21:00 05/09/17 20:59 04/12/17 21:01 20 UNITS Insulin Glargine (Lantus Solostar Pen) 5 units QAM SC 04/12/17 09:00 05/12/17 08:59 04/13/17 08:35 5 UNITS Hydralazine HCl (Apresoline Tab) 100 mg TID PO 04/12/17 14:00 05/09/17 20:59 04/13/17 08:46 100 MG Prednisone (PredniSONE TAB) 50 mg BID PO 04/12/17 20:00 05/12/17 20:59 04/13/17 09:27 50 MG Impression (1) Kidney disease, chronic, stage IV (GFR 15-29 ml/min) (2) Pneumonia (3) Abdominal pain (4) Anemia (5) Hypertension (6) H/O unilateral nephrectomy Padilla is a 61-year-old gentlemen with stage 4 chronic kidney disease with solitary right kidney s/p left nephrectomy in 2016 for metastatic renal cell carcinoma. Cr has been around 3.0-3.5 lately. Has retroperitoneal lymphadenopathy and right kidney hyperdense lesion and possible lung metastasis. Admitted with fever, SOB and desaturation due to pneumonia, left pleural effusion and possible pneumonitis. On vancomycin, Zosyn and Levaquin, left pleural tap and now on steroid. He has high grade proteinuria and has been on lisinopril and Lasix, now on hold. Previously could not tolerate Sutent due to high grade proteinuria and poorly- controlled hypertension. Has been on Opdivo last dose was on 04/07/17, but previously caused arthralgia, colitis and now possible pneumonitis. Plan to try a different TK inhibitor once clinically stable. Epogen 27182 units x 1 dose ( Ok with Oncology as per discussion with Feliberto Lord) given on 04/10/17 On admission cr was at b/l but has been slightly worsening since, but electrolyte and volume status stable, no clear uremic symptoms. left arm AVF placed on 03/22/17, now maturing. Recommendations --overall doing well, blood pressure improved and volume status acceptable --left arm AV fistula is maturing, may take several weeks before we can use however there is no acute indication for dialysis at this point, he has been non oliguric, electrolyte acceptable although renal function has been slightly worsening. 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 --if patient otherwise doing well and everything stays stable, will consider discharge in in next day or 2 with close outpatient follow-up. Will follow
[2017-04-13] MEDS: LEVOFLOXACIN / D5W 750 MG in PREMIXED IN D5W 150 ML IV SCH (13:12)
--- NOTE | 2017-04-13 14:05 | Hospitalist Progress Note ---
Hospitalist Progress Note Date of Service Apr 13, 2017. (Jaimie Beltran, ROSEMARY) Subjective Pt evaluation today including: conversation w/ patient, physical exam, chart review, lab review, review of studies, review of inpatient medication list (Jaimie Beltran CRNP) Medications Medications (Trade) Dose Ordered Sig/Edward Route Start Time Stop Time Status Last Admin Dose Admin Insulin Glargine (Lantus Solostar Pen) 20 units QPM SC 04/12/17 21:00 05/09/17 20:59 04/12/17 21:01 20 UNITS Piperacillin Sod/ Tazobactam Sod 3.375 gm/Dextrose 115 ml @ 28.75 mls/ hr Q12H IV 04/12/17 16:00 04/13/17 08:07 DC 04/13/17 05:04 28.75 MLS/HR Prednisone (PredniSONE TAB) 50 mg BID PO 04/12/17 20:00 05/12/17 20:59 04/13/17 09:27 50 MG (Jaimie Beltran CRNP) Objective Vital Signs Date Time Temp Pulse Resp B/P (MAP) Pulse Ox O2 Delivery O2 Flow Rate FiO2 04/13/17 11:41 36.3 88 12 136/74 (94) 95 Room Air 04/13/17 10:49 Room Air 04/13/17 08:00 Room Air 04/13/17 07:33 37.2 80 12 159/74 (102) 93 04/13/17 07:16 92 14 96 Room Air 04/13/17 05:09 36.8 96 20 150/96 (114) 94 Room Air 04/13/17 00:55 36.9 96 18 145/78 (100) 91 Room Air 04/13/17 00:01 Room Air 04/12/17 21:03 97 149/76 (100) 04/12/17 19:50 36.9 94 20 163/71 (101) 95 Room Air 04/12/17 19:30 Room Air 04/12/17 19:29 95 16 98 Room Air 04/12/17 18:37 36.8 91 20 167/72 (103) 96 Room Air 04/12/17 18:36 Room Air 04/12/17 16:00 Room Air 04/12/17 15:13 36.9 96 18 147/71 (96) 95 Room Air 04/12/17 14:30 88 16 98 Room Air 04/12/17 12:19 36.6 90 18 152/67 (95) 96 04/12/17 12:00 Room Air (Jaimie Beltran CRNP) Physical Exam Notes: General: no distress Eyes: normal inspection, PERLL Respiratory: chest non tender, clear to auscultation, normal breath sounds, no respiratory distress, no accessory muscle use Cardiac: regular rate and rhythm, no rub or gallop, no murmur, no edema, no jvd GI/: active bowel sounds, mild tenderness over costovertebral angle on right and around puncture site on left, soft, non distended Extremities: normal range of motion, normal strength, non tender Neuro/Psych: alert and oriented x 3, normal mood and affect Skin: normal color, dry (Jaimie Beltran CRNP) Laboratory Results Last 24 Hours Test 04/12/17 14:57 04/12/17 16:07 04/12/17 19:58 04/13/17 07:22 Vancomycin Level Trough 20.4 mcg/ml Bedside Glucose 187 mg/dl 229 mg/dl 228 mg/dl Test 04/13/17 08:08 04/13/17 11:37 White Blood Count 17.68 K/uL Red Blood Count 3.59 M/uL Hemoglobin 9.4 g/dL Hematocrit 30.1 % Mean Corpuscular Volume 83.8 fL Mean Corpuscular Hemoglobin 26.2 pg Mean Corpuscular Hemoglobin Concent 31.2 g/dl Platelet Count 319 K/uL Mean Platelet Volume 9.7 fL Neutrophils (%) (Auto) 83.9 % Lymphocytes (%) (Auto) 6.5 % Monocytes (%) (Auto) 7.1 % Eosinophils (%) (Auto) 0.0 % Basophils (%) (Auto) 0.1 % Neutrophils # (Auto) 15.42 K/uL Lymphocytes # (Auto) 1.20 K/uL Monocytes # (Auto) 1.31 K/uL Eosinophils # (Auto) 0.00 K/uL Basophils # (Auto) 0.01 K/uL RDW Standard Deviation 50.5 fL RDW Coefficient of Variation 16.4 % Immature Granulocyte % (Auto) 2.4 % Immature Granulocyte # (Auto) 0.44 K/uL Nucleated RBC Absolute Count (auto) 0.11 K/uL Nucleated Red Blood Cells % 0.6 % Sodium Level 141 mmol/L Potassium Level 3.5 mmol/L Chloride Level 106 mmol/L Carbon Dioxide Level 25 mmol/L Anion Gap 10.0 mmol/L Blood Urea Nitrogen 60 mg/dl Creatinine 4.00 mg/dl Est Creatinine Clear Calc Drug Dose 19.5 ml/min Estimated GFR () 17.3 Estimated GFR (Non- 14.9 BUN/Creatinine Ratio 15.1 Random Glucose 207 mg/dl Calcium Level 9.4 mg/dl Bedside Glucose 311 mg/dl (Jaimie Beltran CRNP) Assessment and Plan Mr. Christy is a 61 year old man here with acute hypoxic respiratory failure likely due to pneumonitis from Optivo treatments for renal cell carcinoma. Acute hypoxic respiratory failure due to pneumonitis - resolved, no longer needs supplemental oxygen. Bilateral pleural effusions status post thoracentesis 04/10/17 by pulmonary medicine. Fluid appeared transudative and not exudative, no apparent blood. Continue steroid regimen. Pneumonia, possible gram negative and MRSA vs Pneumonitis - De-escalation of antibiotic regimen, zosyn, vanco and levaquin discontinued. Hypertension - blood pressures are improving, continue amlodipine, hydralazine increased to 100mg bid by nephrology. Anemia, this is normocytic and likely due to chronic disease, no apparent bleeding and patient does have a history of anemia. No indication for transfusion at this time. Fecal occult negative. Procrit per nephrology Renal cell carcinoma - oncology following, recent treatment with immunologic agent, concern for residual kidney mass seen on CT. Acute on chronic renal failure stage IV - avoid nephrotoxins and renal dose medications. Hyperglycemia - secondary to methylprednisolone, basal insulin increased. Discussed comfort with managing blood sugars at home with anticipated discharge tomorrow. Mr. Christy confirmed that he is comfortable with checking his blood sugars at least 4 times per day and utilizing a carb count. He has had to do this in the past when on steroids and uses [employer] to help with counting. Anticipate discharge tomorrow. DVT prevention - heparin subq and SCDs Code status - full resuscitation (Jaimie Beltran CRNP) HEAD TRIMMER Physician Supervision Note: I interviewed and examined the patient. Discussed with Winnie Beltran HEAD TRIMMER and agree with findings and plan as documented in the note. Any exceptions or clarifications are listed here: None Patient feels fairly well today is up in his room he's having very little dominant pain although generally weak his blood glucose has been difficult to control due to oral steroids Vital signs are stable Lung exam shows decreased breath sounds right base left bases crackles heart is regular abdomen normoactive bowel sounds some minor CVA tenderness left greater than right Patient here with transitive effusion associated with chemotherapy-induced pneumonitis plan the patient will continue on steroids with tapering dose based upon oncology's preference, thoracentesis is greatly improved his breathing, Leukos control has been challenging will increase basal rate and hopefully have better control overnight Documented By: Greyson Mabry (Greyson Mabry M.D.)
[2017-04-13] MEDS ORDERED: INSULIN GLARGINE SOLOSTAR 100 UNITS/ML 3 ML PEN SC ONE (15:30)
[2017-04-13] MEDS: SIMVASTATIN 20 MG TAB PO SCH (21:05)
[2017-04-14] VITALS (7 sets, daily range): BP systolic 146–155; BP diastolic 71–77; PULSE 84–94; TEMP 36.4–36.8; O2SAT 90–98
[2017-04-14] MEDS: IPRATROPIUM BROMIDE NEB SOLN 0.02% 2.5 ML VIAL INH SCH ×3 (01:50→13:57)
[2017-04-14] MEDS: LEVALBUTEROL 1.25MG/3ML NEB INH SCH ×3 (01:50→13:57)
[2017-04-14] MEDS: HYDROmorphone INJ 1 MG/ML SYR IV PRN ×3 (04:56→13:38)
[2017-04-14 05:35] LABS: HEMATOCRIT 26.7 % (42-52); MEAN CELL VOLUME 83.4 fL (80-100); MEAN CORPUSCULAR HEMOGLOBIN 26.6 pg (25-34); MEAN CORPUSCULAR HGB CONC 31.8 g/dl (32-36); MEAN PLATELET VOLUME 8.8 fL (7.4-10.4); PLATELET COUNT 280 K/uL (130-400); WHITE BLOOD COUNT 18.82 K/uL (4.8-10.8)
[2017-04-14 06:08] LABS: BUN/CREATININE RATIO 16.5 (10-20); CALCIUM 8.4 mg/dl (8.5-10.1); CREATININE 4.2 mg/dl (0.60-1.40); POTASSIUM 3.6 mmol/L (3.5-5.1)
[2017-04-14] MEDS: INSULIN GLARGINE SOLOSTAR 100 UNITS/ML 3 ML PEN SC SCH (08:00)
[2017-04-14] MEDS ORDERED: INSULIN GLARGINE SOLOSTAR 100 UNITS/ML 3 ML PEN SC SCH (08:00)
[2017-04-14] MEDS: DOCUSATE SODIUM/SENNA 50/8.6MG TAB PO SCH (08:20)
[2017-04-14] MEDS: AMLODIPINE BESYLATE 5 MG TAB PO SCH (08:20)
[2017-04-14] MEDS: ASPIRIN 81 MG ECTAB PO SCH (08:20)
[2017-04-14] MEDS: FERROUS SULFATE 325 MG TAB PO SCH (08:20)
[2017-04-14] MEDS: METOPROLOL SUCC 50MG EXT REL TAB PO SCH (08:20)
[2017-04-14] MEDS: NYSTATIN SUSP 500,000 U/5 ML UDC PO SCH ×2 (08:21→12:16)
[2017-04-14] MEDS: CLOTRIMAZOLE 10 MG TROCHE MT SCH ×2 (08:24→12:16)
[2017-04-14] MEDS: BOOST GLUCOSE CONTROL PO SCH (08:25)
[2017-04-14] MEDS: INSULIN ASPART 100 UNITS/ML 3 ML PEN SC SCH ×2 (08:35→12:18)
[2017-04-14] MEDS: HEPARIN SOD 5000 UNIT/0.5 ML CARP SQ SCH (08:36)
--- NOTE | 2017-04-14 10:39 | Nephrology Progress Note ---
Nephrology Progress Note Date of Service Apr 14, 2017. Chief Complaint F/U for advanced chronic kidney disease. Roland Causey was seen and examined in his room this am. Overall feels well, denies SOB. CP. Cr slightly worsened to 4.2, BP volume status and electrolyte stable. Denies any symptom and overall feels well. Review of Systems A complete review of systems was performed. Pertinent positives are noted above. All other systems are negative. Vital Signs Last 8 Hrs Date Time Temp Pulse Resp B/P (MAP) Pulse Ox O2 Delivery O2 Flow Rate FiO2 04/14/17 07:27 36.4 93 20 146/71 (96) 90 Room Air 04/14/17 07:01 84 16 97 Room Air 04/14/17 04:08 36.8 94 18 150/72 (98) 95 Room Air 04/14/17 01:50 94 16 94 Room Air 04/14/17 00:05 Room Air 04/13/17 23:56 36.8 88 20 151/72 (98) 94 Room Air Last Recorded Weight Weight (Kilograms): 83.300 Physical Exam GENERAL: middle aged male,, AAA x 3, in no distress. NECK: Supple, no JVD. RESPIRATORY: clear to auscultation CARDIOVASCULAR: S1, S2 normal, rate rhythm regular. EXTREMITY: No lower extremity edema NEURO: speech fluent. PSYCHIATRY: Normal mood and judgment Family History Cervical cancer Diabetes mellitus Heart disease Hypertension Myocardial infarction Pancreatic cancer Prostate cancer Social History Smokeless Tobacco Use: No Alcohol Use: none Drug Use: none Marital Status: single Housing Status: lives alone Occupation: retired Laboratory Results Past 24 Hours 04/13/17 08:08 Red Blood Count 3.59, Mean Corpuscular Volume 83.8, Mean Corpuscular Hemoglobin 26.2, Mean Corpuscular Hemoglobin Concent 31.2, Mean Platelet Volume 9.7, Neutrophils (%) (Auto) 83.9, Lymphocytes (%) (Auto) 6.5, Monocytes (%) (Auto) 7.1, Eosinophils (%) (Auto) 0.0, Basophils (%) (Auto) 0.1, Neutrophils # (Auto) 15.42, Lymphocytes # (Auto) 1.20, Monocytes # (Auto) 1.31, Eosinophils # (Auto) 0.00, Basophils # (Auto) 0.01 04/14/17 05:22 04/13/17 08:08 04/14/17 05:22 Test 04/13/17 08:08 04/13/17 11:37 04/13/17 16:36 04/13/17 20:47 White Blood Count 17.68 K/uL (4.8-10.8) Red Blood Count 3.59 M/uL (4.7-6.1) Hemoglobin 9.4 g/dL (14.0-18.0) Hematocrit 30.1 % (42-52) Mean Corpuscular Volume 83.8 fL (80-100) Mean Corpuscular Hemoglobin 26.2 pg (25-34) Mean Corpuscular Hemoglobin Concent 31.2 g/dl (32-36) Platelet Count 319 K/uL (130-400) Mean Platelet Volume 9.7 fL (7.4-10.4) Neutrophils (%) (Auto) 83.9 % Lymphocytes (%) (Auto) 6.5 % Monocytes (%) (Auto) 7.1 % Eosinophils (%) (Auto) 0.0 % Basophils (%) (Auto) 0.1 % Neutrophils # (Auto) 15.42 K/uL (1.4-6.5) Lymphocytes # (Auto) 1.20 K/uL (1.2-3.4) Monocytes # (Auto) 1.31 K/uL (0.11-0.59) Eosinophils # (Auto) 0.00 K/uL (0-0.5) Basophils # (Auto) 0.01 K/uL (0-0.2) RDW Standard Deviation 50.5 fL (36.4-46.3) RDW Coefficient of Variation 16.4 % (11.5-14.5) Immature Granulocyte % (Auto) 2.4 % Immature Granulocyte # (Auto) 0.44 K/uL (0.00-0.02) Nucleated RBC Absolute Count (auto) 0.11 K/uL (0-0) Nucleated Red Blood Cells % 0.6 % Anion Gap 10.0 mmol/L (3-11) Est Creatinine Clear Calc Drug Dose 19.5 ml/min Estimated GFR () 17.3 Estimated GFR (Non- 14.9 BUN/Creatinine Ratio 15.1 (10-20) Calcium Level 9.4 mg/dl (8.5-10.1) Bedside Glucose 311 mg/dl (70-99) 153 mg/dl (70-99) 261 mg/dl (70-99) Test 04/14/17 05:22 04/14/17 07:38 Red Blood Count 3.20 M/uL (4.7-6.1) Mean Corpuscular Volume 83.4 fL (80-100) Mean Corpuscular Hemoglobin 26.6 pg (25-34) Mean Corpuscular Hemoglobin Concent 31.8 g/dl (32-36) RDW Standard Deviation 50.4 fL (36.4-46.3) RDW Coefficient of Variation 16.7 % (11.5-14.5) Mean Platelet Volume 8.8 fL (7.4-10.4) Nucleated RBC Absolute Count (auto) 0.13 K/uL (0-0) Nucleated Red Blood Cells % 0.7 % Anion Gap 8.0 mmol/L (3-11) Est Creatinine Clear Calc Drug Dose 18.6 ml/min Estimated GFR () 16.3 Estimated GFR (Non- 14.1 BUN/Creatinine Ratio 16.5 (10-20) Calcium Level 8.4 mg/dl (8.5-10.1) Bedside Glucose 168 mg/dl (70-99) Allergies Coded Allergies: Iodinated Diagnostic Agents (Verified Allergy, Unknown, oil based, severe headaches, 10/27/16) EVENT OCCURED IN 1971, PT STATES HE HAS HAD 3 DIFFERENT WATER BASED IVP DYES WITH NO ISSUE Medications Current Inpatient Medications Medications (Trade) Dose Ordered Sig/Edward Route Start Time Stop Time Status Last Admin Dose Admin Heparin Sodium (Porcine) (Heparin Sq 5000 Unit/0.5ml) 5,000 unit Q12 SQ 04/09/17 21:00 05/09/17 20:59 04/13/17 21:08 5,000 UNIT Acetaminophen (Tylenol Tab) 650 mg Q4H PRN PO 04/09/17 10:30 05/09/17 10:29 Al Hydrox/Mg Hydrox/Simethicone (Maalox Max Susp) 15 ml Q4H PRN PO 04/09/17 10:30 05/09/17 10:29 Magnesium Hydroxide (Milk Of Magnesia Susp) 30 ml Q12H PRN PO 04/09/17 10:30 05/09/17 10:29 Ondansetron HCl (Zofran Inj) 4 mg Q6H PRN IV 04/09/17 10:30 05/09/17 10:29 Polyethylene (Miralax Powder Packet) 17 gm DAILY PRN PO 04/09/17 10:30 05/09/17 10:29 Insulin Aspart (novoLOG ASPART) SLIDING SCALE If C... ACHS SC 04/09/17 12:30 05/09/17 12:29 04/13/17 21:07 11 UNITS Glucose (Glucose 40% Gel) 15-30 GRAMS 15 GRAMS... UD PRN PO 04/09/17 10:30 05/09/17 10:29 Glucose (Glucose Chew Tab) 4-8 Tablets 4 Tabl... UD PRN PO 04/09/17 10:30 05/09/17 10:29 Dextrose (Dextrose 50% 50ML Syringe) 25-50ML OF 50% DW IV FOR... UD PRN IV 04/09/17 10:30 05/09/17 10:29 Glucagon (Glucagon Inj) 1 mg UD PRN SQ 04/09/17 10:30 05/09/17 10:29 Amlodipine Besylate (Norvasc Tab) 10 mg DAILY PO 04/10/17 09:00 05/10/17 08:59 04/13/17 08:50 10 MG Ferrous Sulfate (Feosol Tab) 325 mg BID PO 04/09/17 21:00 05/09/17 20:59 04/13/17 21:04 325 MG Senna/Docusate Sodium (Senokot S Tab) 1 tab DAILY PO 04/10/17 09:00 05/10/17 08:59 04/13/17 08:51 1 TAB Simvastatin (Zocor Tab) 20 mg QPM PO 04/09/17 21:00 05/09/17 20:59 04/13/17 21:05 20 MG Terazosin HCl (Hytrin Cap) 5 mg HS PO 04/09/17 21:00 05/09/17 20:59 04/13/17 21:05 5 MG Levofloxacin 750 mg/Prmx 150 ml @ 100 mls/hr Q48H IV 04/09/17 13:00 04/16/17 12:59 04/13/17 13:12 100 MLS/HR Aspirin (Ecotrin Tab) 81 mg QAM PO 04/10/17 09:00 05/10/17 08:59 04/13/17 08:47 81 MG Nystatin (Mycostatin Susp) 5 ml QID PO 04/09/17 13:00 04/19/17 12:59 04/13/17 21:04 5 ML Clotrimazole (Mycelex 10MG Christina) 1 christina QID MT 04/09/17 13:00 04/19/17 12:59 04/13/17 21:04 1 CHRISTINA Hydromorphone HCl (Dilaudid Inj) 1 mg Q4 PRN IV 04/09/17 11:45 04/23/17 11:44 04/14/17 04:56 1 MG Levalbuterol (Xopenex 1.25MG/ 3ML Neb) 1.25 mg Q6R INH 04/09/17 21:00 05/09/17 20:59 04/14/17 06:59 1.25 MG Ipratropium [place] (Atrovent 0.02% 0.5MG/2.5ML Neb) 0.5 mg Q6R INH 04/09/17 21:00 05/09/17 20:59 04/14/17 06:59 0.5 MG Enteral Nutritional Formula (Boost Glucose Control) 1 can BIDM PO 04/10/17 16:45 05/10/17 16:44 04/13/17 17:14 1 CAN Metoprolol Succinate (Toprol Xl Tab) 100 mg BID PO 04/11/17 09:00 05/09/17 20:59 04/13/17 21:05 100 MG Hydralazine HCl (HydrALAZINE INJ) 10 mg Q4H PRN IV. 04/11/17 10:45 05/11/17 10:44 Insulin Glargine (Lantus Solostar Pen) 20 units QPM SC 04/12/17 21:00 05/09/17 20:59 04/13/17 21:08 20 UNITS Insulin Glargine (Lantus Solostar Pen) 5 units QAM SC 04/12/17 09:00 04/14/17 08:00 04/13/17 08:35 5 UNITS Hydralazine HCl (Apresoline Tab) 100 mg TID PO 04/12/17 14:00 05/09/17 20:59 04/13/17 21:05 100 MG Prednisone (PredniSONE TAB) 50 mg BID PO 04/12/17 20:00 05/12/17 20:59 04/13/17 21:05 50 MG Insulin Glargine (Lantus Solostar Pen) 15 units QAM SC 04/14/17 08:00 05/14/17 07:59 Impression (1) Kidney disease, chronic, stage IV (GFR 15-29 ml/min) (2) Pneumonia (3) Abdominal pain (4) Anemia (5) Hypertension (6) H/O unilateral nephrectomy Padilla is a 61-year-old gentlemen with stage 4 chronic kidney disease with solitary right kidney s/p left nephrectomy in 2016 for metastatic renal cell carcinoma. Cr has been around 3.0-3.5 lately. Has retroperitoneal lymphadenopathy and right kidney hyperdense lesion and possible lung metastasis. Admitted with fever, SOB and desaturation due to pneumonia, left pleural effusion and possible pneumonitis. On vancomycin, Zosyn and Levaquin, left pleural tap and now on steroid. He has high grade proteinuria and has been on lisinopril and Lasix, now on hold. Previously could not tolerate Sutent due to high grade proteinuria and poorly- controlled hypertension. Has been on Opdivo last dose was on 04/07/17, but previously caused arthralgia, colitis and now possible pneumonitis. Plan to try a different TK inhibitor once clinically stable. Epogen 53313 units x 1 dose ( Ok with Oncology as per discussion with Feliberto Lord) given on 04/10/17 On admission cr was at b/l but has been slightly worsening since, but electrolyte and volume status stable, no clear uremic symptoms. left arm AVF placed on 03/22/17, now maturing. Recommendations --overall doing well, blood pressure improved and volume status acceptable --left arm AV fistula is maturing, may take several weeks before we can use however there is no acute indication for dialysis at this point, he has been non oliguric, electrolyte acceptable although renal function has been slightly worsening. will monitor with daily renal panel and assess for need for NURSING CLINICAL DIRECTOR, will try to avoid TDC with on going pneumonia/pneumonitis , on steroid and antibiotic. --discharge with close outpatient lab monitoring and follow-up. --continue to hold lasix and ACEI on DC
[2017-04-14 12:29] LABS: HEMATOCRIT 28.1 % (42-52); MEAN CELL VOLUME 83.6 fL (80-100); MEAN CORPUSCULAR HEMOGLOBIN 26.8 pg (25-34); MEAN PLATELET VOLUME 9.7 fL (7.4-10.4); PLATELET COUNT 277 K/uL (130-400); RED BLOOD COUNT 3.36 M/uL (4.7-6.1); WHITE BLOOD COUNT 20.07 K/uL (4.8-10.8)
[2017-04-14] MEDS ORDERED: INSDGIPEN SC ×2 (14:03)
[2017-04-14] MEDS ORDERED: OXYC-164 PO (14:03)
--- NOTE | 2017-04-14 14:11 | Discharge Instructions ---
Discharge Instructions Date of Service Apr 14, 2017. Admission Reason for Admission: Renal Failure, Pneumonia Discharge Discharge Diagnosis / Problem: Renal failure, pneumonitis, pleural effusions Discharge Goals Goal(s): Decrease discomfort, Improve function, Diagnostic testing, Therapeutic intervention Activity Recommendations Activity Limitations: resume your previous activity . Instructions / Follow-Up Instructions / Follow-Up Discontinue Tylenol #4 while taking oxycodone New novolog regimen: Before each meal and before bed check blood sugars Blood sugar GOAL RANGE = Low _100__ MG/DL High _140__ MG/DL Correction Factor = _15__ MG/DL/UNIT insulin: carbohydrate ratio = 1 UNIT PER 10__GRAM CHO CONSUMED Current Hospital Diet Patient's current hospital diet: Renal Diet, Diabetes Type 1 Diet Discharge Diet Recommended Diet: Diabetes Type 2 Diet, Renal Diet Procedures Procedures Performed: thoracentesis chest CT V/Q scan abdomen/pelvis CT Chest X ray Pending Studies Studies pending at discharge: no Laboratory Results Hemoglobin A1c Test 03/09/17 15:10 Range/Units Estimated Average Glucose 157 mg/dl Hemoglobin A1c 7.1 H 4.5-5.6 % Medical Emergencies . Who to Call and When: Medical Emergencies: If at any time you feel your situation is an emergency, please call 911 immediately. . Non-Emergent Contact Non-Emergency issues call your: Primary Care Provider Call Non-Emergent contact if: temperature is above 100.5, your pain is not controlled, your pain is worsening or if you are becoming short of breath again . . "Provider Documentation" section prepared by Jaimie Beltran. . Mba Intern Recommendations Mba Intern Recommendations: Please have this patient f/u in the pulmonary clinic in the next month to monitor his pleural effusion. A CXR prior to the visit would be of great benefit if possible. The nurse navigator will be in touch with you. "Please, follow up with Dr. Dao on MondayApril 17 at 3:30 pm. *If you need to change this appointment you can call his office at [phone]. Please, follow up with Dr. Norwood on MondayApril 21 at 2:45 pm. *If you need to change this appointment you can call the office at [phone]. Please, follow up with Dr. Darden in 2-3 weeks. His office will call you to arrange the appointment. *If you have any questions you can call his office at [phone]." VTE Core Measure Inpt VTE Proph given/why not?: Unfractionated heparin SQ
[2017-04-14] MEDS ORDERED: PRD50 PO (14:28)
[2017-04-14] MEDS ORDERED: NVLGIPEN SC (14:33)
[2017-04-14] MEDS ORDERED: TPRSR/100 PO (15:10)
[2017-04-14] MEDS ORDERED: INSU1MIS SC (15:18)
[2017-04-14] MEDS ORDERED: test strips EXT (15:18)
[2017-04-14] MEDS ORDERED: ACCU (15:18)
--- NOTE | 2017-04-14 16:32 | Discharge Summary ---
Discharge Summary Date of Service Apr 14, 2017. (Jaimie Beltran ., ROSEMARY) Discharge Summary Admission Date: Apr 09, 2017 at 10:43 Discharge Date: Apr 14, 2017 Discharge Disposition: Home Principal Diagnosis: Pleural effusions, acute on chronic renal failure, renal cell carcinoma Immunizations: Have You Had Influenza Vaccine: Yes Influenza Vaccine Date: May 14, 2015 History of Tetanus Vaccine?: Yes Tetanus Immunization Date: Sep 14, 2011 History of Pneumococcal: Yes Pneumococcal Date: Sep 14, 2013 History of Hepatitis B Vaccine: No Procedures: CXR IMPRESSION: 1. Left greater than right perihilar consolidation could represent pulmonary edema or infection. Chest CT 04/09 IMPRESSION: 1. Interval development of peribronchovascular consolidation most extensively involving the left upper lobe but also noted in the right upper and left lower lobes. Additionally, new interlobular septal thickening and new bilateral moderate pleural effusions. The combination of these findings could suggest pulmonary edema, however, this usually preferentially involves the dependent lung and lower lobes. Nonetheless, pulmonary edema is the favored diagnosis, although infection and hemorrhage cannot be excluded. Given the presence of superimposed solid nodules, follow-up after treatment is recommended to ensure resolution. Chest CT 04/10 IMPRESSION: 1. Significant flow reduction of left pleural fluid likely from thoracentesis. No pneumothorax. Resulting decreased passive atelectasis in the left lower lobe. 2. Persistent small to moderate right pleural effusion with associated passive atelectasis in the right lower lobe. 3. Peribronchovascular opacities involving the left upper lobe to the greatest degree, similar to prior exam. This is most concerning for multifocal pneumonia. The presence of associated pulmonary nodules, follow-up is recommended to exclude underlying neoplasm. Given the lack of progression of involvement of the lower lobes, despite interlobular septal thickening, pulmonary edema is felt to be less likely. Guidance US for Thoracentesis VQ scan IMPRESSION: 1. Normal. Abdomen/Pelvis CT IMPRESSION: 1. No evidence of right nephrolithiasis. Slightly increased right perinephric fat stranding is nonspecific. Correlate with urinalysis to exclude infection. No right hydronephrosis. 2. Slight interval increase in size of the hyperdense renal lesion. This is incompletely characterized without intravenous contrast and could represent a hyperdense cyst containing hemorrhagic or proteinaceous debris versus a solid renal neoplasm. This was previously photopenic on PET CT from 05/02/2016, which argues against a solid lesion. 3. Diverticulosis with postsurgical changes of colocolonic anastomosis. 4. Continued interval increase in size of retroperitoneal lymphadenopathy compatible with regression of metastatic disease. 5. Increasing now moderate bilateral pleural effusions with associated dependent atelectasis. 6. Interval development of peribronchial vascular consolidation in the left lower lobe and nodular groundglass consolidation in the lingula, concerning for an infectious process. (Jaimie Beltran ., ROSEMARY) Medication Reconciliation New Medications: Insulin Syringe/Needle U-100 (Bd Insulin Syringe Ultraf) 1 Mis Mis BOX SC UD, #1 4 Refills Oxycodone Hcl (Oxycodone Hcl) 10 Mg Tab 1 TAB PO QID PRN for flank pain for 3 Days, #24 TAB [accu] () [test strips] () UNITS EXT QID, #120 6 Refills pt to have intense glucose testing as transitioning medications Insulin Aspart (Novolog Flexpen) 100 Units/Ml Inj 0 UNITS SC ACHS for 30 Days, #1 PEN Insulin Glargine (Lantus Solostar) 100 Unit/Ml Inj 15 UNITS SC QAM for 30 Days, #30 DOSE Insulin Glargine (Lantus Solostar) 100 Unit/Ml Inj 20 UNITS SC QPM for 30 Days, #30 DOSE Prednisone (Prednisone) 50 Mg Tab 50 MG PO BID for 4 Days, #8 TAB Changed Medications: Metoprolol Succinate (Metoprolol Succinate ER) 100 Mg Tabcr 100 MG PO BID, #60 DOSE 4 Refills (Changed from: Metoprolol Succinate (Toprol Xl ) 25 Mg Tab 25 Mg PO BID #30 TAB) Continued Medications: Amlodipine (Norvasc) 10 Mg Tab 10 MG PO DAILY, TAB Calcitriol (Calcitriol) 0.25 Mcg Cap 0.25 MCG PO 3XWK Ferrous Sulfate (Ferrous Sulfate) 325 Mg Tab 325 MG PO BID Hydralazine Hcl (Apresoline) 100 Mg Tab 100 MG PO TID for 30 Days, #90 TAB Lactobacillus Acidophilus (Lactinex Granules) 1 Gm Pack 1 GM PO TIDM for 10 Days, #30 TAB Polyethylene (Miralax) 17 Gm Pow 17 GM PO DAILY PRN for Constipation for 10 Days, #10 PKT Senna/Docusate Sod (Senokot S) 1 Tab Tab 1 TAB PO DAILY for 30 Days, #30 TAB Simvastatin (Zocor) 20 Mg Tab 20 MG PO QPM, TAB Terazosin (Hytrin) 5 Mg Cap 5 MG PO HS, CAP [Aspirin] () 81 MG PO DAILY Discontinued Medications: Insulin Glargine (Lantus) Vial 14 SC QPM, VIAL Insulin Lispro (Human) (Humalog Kwikpen) 100 Unit/Ml Inj 10-20 SC AFTER DINNER Nivolumab (Opdivo) 40 Mg/4 Ml Inj 40 MG IV Q14D Prednisone (Prednisone) 5 Mg Tab 5 MG PO DAILY for 30 Days, #30 TAB Sodium Bicarbonate (Sodium Bicarbonate) 650 Mg Tab 650 MG PO DAILY for 30 Days, #30 TAB Discharge Exam Review of Systems: Constitutional: No chills, No sweats Respiratory: No cough, No sputum Cardiovascular: No chest pain, No palpitations Abdomen: No pain, No nausea, No vomiting, No GI bleeding Genitourinary - Female: No dysuria Physical Exam: General Appearance: WD/WN, no apparent distress Eyes: normal inspection Respiratory/Chest: chest non-tender, lungs clear, normal breath sounds, no respiratory distress, no accessory muscle use Cardiovascular: regular rate, rhythm, no edema, no gallop, no murmur Abdomen / GI: normal bowel sounds, non tender, soft Neurologic/Psychiatric: alert, normal mood/affect, normal reflexes Skin: normal color, warm/dry (Jaimie Beltran, ROSEMARY) Hospital Course Mr. Christy is a 61 year old man here with acute hypoxic respiratory failure likely due to pneumonitis from Optivo treatments for renal cell carcinoma. Acute hypoxic respiratory failure due to pneumonitis - resolved, no longer needs supplemental oxygen. Bilateral pleural effusions status post thoracentesis 04/10/17 by pulmonary medicine. Fluid appeared transudative and not exudative, no apparent blood. Continue steroid regimen. Pneumonia, possible gram negative and MRSA vs Pneumonitis - De-escalation of antibiotic regimen, zosyn, vanco and levaquin discontinued. Hypertension - blood pressures are improving, continue amlodipine, hydralazine increased to 100mg bid by nephrology. Anemia, this is normocytic and likely due to chronic disease, no apparent bleeding and patient does have a history of anemia. No indication for transfusion at this time. Fecal occult negative. Procrit per nephrology Renal cell carcinoma - oncology following, recent treatment with immunologic agent, concern for residual kidney mass seen on CT. Oxycodone for pain control over the weekend until he sees oncology Acute on chronic renal failure stage IV - avoid nephrotoxins and renal dose medications. Hyperglycemia - secondary to methylprednisolone, basal insulin increased. Discussed comfort with managing blood sugars at home with anticipated discharge tomorrow. Mr. Christy confirmed that he is comfortable with checking his blood sugars at least 4 times per day and utilizing a carb count with correction factor. He has had to do this in the past when on steroids and uses [employer] to help with counting. I personally spent time teaching him how to calculate his insulin and he was able to teach back to both myself and his nurse. DVT prevention - heparin subq and SCDs Code status - full resuscitation Total Time Spent: Greater than 30 minutes This includes examination of the patient, discharge planning, medication reconciliation, and communication with other providers. (Jaimie Beltran CRNP) PROFESSIONAL SHOPPER Physician Supervision Note: I interviewed and examined the patient. Discussed with Winnie Beltran PROFESSIONAL SHOPPER and agree with findings and plan as documented in the note. Any exceptions or clarifications are listed here: None Excellent summary as above patient here with respiratory failure from transitive pleural effusion due to chemotherapy-induced pneumonitis improved with thoracentesis and steroid treatment. Steroids caused difficulty controlling diabetes. While in the hospital his blood pressure became more challenging and medications were increased. Patient also developed progressive acute on chronic renal failure. Patient was seen prior to discharge is stable for going home however he will need close follow-up with both oncology and nephrology to manage his current problems that are at play. Prior to going home his lung was clear and the left decreased breath sounds on the right base heart was regular abdomen was normoactive bowel sounds soft his vitals remain stable Documented By: Greyson Mabry (Greyson Mabry M.D.) Discharge Instructions Please refer to the electronic Patient Visit Report (Discharge Instructions) for additional information. (Jaimie Beltran CRNP) Additional Copies To Hunter Dao D.O.; Pauline Norwood MD
[2017-04-28] MEDS ORDERED: ASPI81TA28 PO (06:56)
[2017-04-28] MEDS ORDERED: PRED20TA PO (06:56)
[2017-04-28] MEDS ORDERED: TAMS0.4C38 PO (06:56)
[2017-04-28] MEDS ORDERED: INSDGI SC (06:56)
[2017-04-28] MEDS ORDERED: HYDR100T12 PO (06:57)
[2017-04-28] MEDS ORDERED: OXYC-164 PO (07:00)
[2017-04-28] MEDS ORDERED: FENT75DI2 TOP (07:00)
[2017-04-28] MEDS ORDERED: METH5TAB2 PO (07:00)
[2017-04-28] MEDS ORDERED: LSX20 PO (07:03)
== END 2017-04-14 16:30 | disposition home health service (06) | DRG 177 ==
LOC: UNDOADMIN 08:55 → C.2T 08:55 → ENRESERV 04-12 15:48 → C.4E 04-12 18:19
PROVIDERS: ADMIT Internal Medicine; ATTEND Internal Medicine
PROC: 0W9B3ZX Drainage of Left Pleural Cavity, Percutaneous Approach, Diagnostic (ICD-10-PCS; principal; 2017-04-10)
DX: J15.212 Pneumonia due to Methicillin resistant Staphylococcus aureus (principal); J96.01 Acute respiratory failure with hypoxia; J90 Pleural effusion, not elsewhere classified; N17.9 Acute kidney failure, unspecified; N18.4 Chronic kidney disease, stage 4 (severe); C64.2 Malignant neoplasm of left kidney, except renal pelvis; C77.2 Secondary and unspecified malignant neoplasm of intra-abdominal lymph nodes; J15.6 Pneumonia due to other Gram-negative bacteria; Y95 Nosocomial condition; T45.1X5A Adverse effect of antineoplastic and immunosuppressive drugs, initial encounter; I12.9 Hypertensive chronic kidney disease with stage 1 through stage 4 chronic kidney disease, or unspecified chronic kidney disease; E11.22 Type 2 diabetes mellitus with diabetic chronic kidney disease; E11.65 Type 2 diabetes mellitus with hyperglycemia; T38.0X5A Adverse effect of glucocorticoids and synthetic analogues, initial encounter; D63.8 Anemia in other chronic diseases classified elsewhere; E78.5 Hyperlipidemia, unspecified; E87.6 Hypokalemia; N40.0 Benign prostatic hyperplasia without lower urinary tract symptoms; F41.9 Anxiety disorder, unspecified; F32.9 Major depressive disorder, single episode, unspecified; Z90.5 Acquired absence of kidney; Z87.19 Personal history of other diseases of the digestive system; Z79.4 Long term (current) use of insulin; Z79.52 Long term (current) use of systemic steroids; Z79.82 Long term (current) use of aspirin; Z79.899 Other long term (current) drug therapy; Z91.041 Radiographic dye allergy status; Z82.49 Family history of ischemic heart disease and other diseases of the circulatory system; Z83.3 Family history of diabetes mellitus; Z80.0 Family history of malignant neoplasm of digestive organs; Z80.42 Family history of malignant neoplasm of prostate; Z80.49 Family history of malignant neoplasm of other genital organs

== ENCOUNTER → 2017-04-17 | Outpatient (CLI) | payer OTHER ==
[~2017-04-17] MED LIST changes: +ACCU; +ASPI81TA28 PO; -ATEN50TA8 PO; -ESCI10TA17 PO; +FENT75DI2 TOP; +INSDGIPEN SC; -INSU100I2 SC; +INSU1MIS SC; +LSX20 PO; -LVQ250 PO; +METH5TAB2 PO; -NIVO1INJ IV; +NVLGIPEN SC; +OXYC-164 PO; -PRD20 PO; +PRD50 PO; +PRED20TA PO; -SODI650T8 PO; +TAMS0.4C38 PO; +TPRSR/100 PO; +test strips EXT
[2017-04-17 18:25] LABS: HEMATOCRIT 32.5 % (42-52); MEAN CELL VOLUME 85.5 fL (80-100); MEAN CORPUSCULAR HEMOGLOBIN 26.3 pg (25-34); MEAN CORPUSCULAR HGB CONC 30.8 g/dl (32-36); MEAN PLATELET VOLUME 9.8 fL (7.4-10.4); PLATELET COUNT 373 K/uL (130-400); WHITE BLOOD COUNT 26.35 K/uL (4.8-10.8)
[2017-04-17 18:45] LABS: BLOOD UREA NITROGEN 79 mg/dl (7-18); BUN/CREATININE RATIO 21.2 (10-20); CALCIUM 8.9 mg/dl (8.5-10.1); CARBON DIOXIDE 21 mmol/L (21-32); CHLORIDE 108 mmol/L (98-107); GLUCOSE 182 mg/dl (70-99); POTASSIUM 3.8 mmol/L (3.5-5.1); SODIUM 142 mmol/L (136-145)
--- NOTE | 2017-04-20 13:17 | CODING QUERY NO DIAGNOSIS ---
: 1955 TREATMENT RENDERED WITHOUT A DIAGNOSIS To promote full compliance with coding requirements relating to patient care, physician participation is requested in all cases of campus ambassador uncertainty. Please assist us with providing a diagnosis/symptom for the test(s) below: A diagnosis/symptom was not documented on your Order. A valid diagnosis/symptom is required to bill all insurances. Please remember that we are unable to code a diagnosis of rule out, probable, possible, questionable, or suspected. Tests that require a diagnosis: DOS: 04/17/17 * PARTIAL RENAL PROFILE DIAGNOSIS: * CBC W/O DIFFERENTIAL DIAGNOSIS: Provider Signature: Date: Thank you Sammie Brandt Health Information Management Once completed, please kindly fax back to [phone] For questions please call [phone]
== END | disposition home or self-care (01) ==
LOC: C.LAB 17:12
PROVIDERS: ATTEND Nurse Practitioner Family
DX: N17.9 Acute kidney failure, unspecified (principal); N18.9 Chronic kidney disease, unspecified; D64.9 Anemia, unspecified

== ENCOUNTER → 2017-04-20 | Outpatient (CLI) | payer OTHER ==
--- NOTE | 2017-04-20 14:28 | DIAGNOSTIC IMAGING REPORT ---
CHEST 2 VIEWS ROUTINE CLINICAL HISTORY: CLEAR CELL RENAL CA renal carcinoma COMPARISON STUDY: 04/09/2017 FINDINGS: Considerable improvement in the chest compared to the prior study. Perihilar changes described previously have resolved. Very slight residual blunting of the posterior costophrenic angles. Slight prominence of pulmonary vasculature. IMPRESSION: Considerable improvement in the chest with perihilar infiltrative changes resolved. Slight residual blunting posterior costophrenic angles. The above report was generated using voice recognition software. It may contain grammatical, syntax or spelling errors. Electronically signed by: Kirill Rainey M.D. 04/20/2017 2:27 PM Dictated Date/Time: 04/20/2017 2:25 PM
[2017-04-20 17:00] LABS: HEMATOCRIT 34.8 % (42-52); MEAN CELL VOLUME 86.4 fL (80-100); MEAN CORPUSCULAR HEMOGLOBIN 26.1 pg (25-34); MEAN CORPUSCULAR HGB CONC 30.2 g/dl (32-36); MEAN PLATELET VOLUME 10.2 fL (7.4-10.4); PLATELET COUNT 324 K/uL (130-400); RED BLOOD COUNT 4.03 M/uL (4.7-6.1); WHITE BLOOD COUNT 22.47 K/uL (4.8-10.8)
[2017-04-20 17:04] LABS: ALT/SGPT 29 U/L (12-78); AST/SGOT 11 U/L (15-37); BLOOD UREA NITROGEN 77 mg/dl (7-18); BUN/CREATININE RATIO 22.5 (10-20); CALCIUM 8.4 mg/dl (8.5-10.1); CARBON DIOXIDE 20 mmol/L (21-32); CHLORIDE 111 mmol/L (98-107); GLUCOSE 163 mg/dl (70-99); POTASSIUM 4.3 mmol/L (3.5-5.1); SODIUM 142 mmol/L (136-145)
[2017-04-20 17:06] LABS: ALB/GLOB RATIO 0.8 (0.9-2); ALKALINE PHOSPHATASE 42 U/L (45-117)
[2017-04-20 19:55] LABS: BASO % 0.1 %; BASO ABS # 0.03 K/uL (0-0.2); COMPLETE YES; IG% 6.1 %; MONO % 0.7 %; NEUT % 85.1 %
== END | disposition home or self-care (01) ==
LOC: C.RAD1850 13:55
PROVIDERS: ATTEND Internal Medicine Hematology & Oncology
DX: C64.2 Malignant neoplasm of left kidney, except renal pelvis (principal)

== ENCOUNTER → 2017-04-28 | Day surgery (SDC) | payer OTHER ==
[~2017-04-28] VITALS: Ht 177.8 cm; Wt 86.0 kg
[~2017-04-28] MED LIST changes: +BUPIVACAINE/EPINEPHRINE 0.5% MPF 1:200,000 10 ML VIAL ONE; +BUPIVACAINE/EPINEPHRINE 0.5% MPF 1:200,000 30 ML VIAL INFIL ONE; +CEFAZOLIN 2000 MG/60 ML D5W 60 ML IV SCH; +FENTANYL CITRATE INJ 50 MCG/1 ML 2 ML VIAL IV ONE; +FENTANYL CITRATE INJ 50 MCG/1 ML 2 ML VIAL ONE; +HYDROCORTISONE IV 100 MG in SYRINGE 0 ML IV SCH; +HYDROCORTISONE SOD SUCCINATE 100 MG/2 ML VIAL ONE; +LIDOCAINE HCL 1% 20 ML VIAL INFIL ONE; +LIDOCAINE HCL 1% 20 ML VIAL ONE; +MIDAZOLAM HCL 1 MG/ML 2ML VIAL IV ONE; +MIDAZOLAM HCL 1 MG/ML 2ML VIAL ONE; +OXYCODONE/ACETAMINOPHEN 5-325 TAB PO PRN; -SENN-65 PO; +SODIUM CHLORIDE 0.9% 1000ML IV SCH
[2017-04-28 07:08] VITALS: BP 175/80; PULSE 83; TEMP 36.9; O2SAT 98; Ht 177.8 cm; Wt 86.0 kg
--- NOTE | 2017-04-28 07:58 | History and Physical ---
History & Physical Date of Service Apr 28, 2017. History & Physical CC: Renal carcinoma Mr. Christy is a 61 y/o male with PMHx of Metastatic RCC S/P L Nephrectomy, CKD Stage IV, T2DM, HTN, HLD, Chronic Anemia, BPH, Anxiety/Depression who is admitted at this time for a port insertion Past Medical/Surgical History 1. Metastatic Renal Cell Carcinoma S/P L Nephrectomy 2. CKD Stage IV 3. T2DM 4. HTN 5. HLD 6. Chronic Anemia 7. BPH 8. Anxiety/Depression Family History Cervical cancer Diabetes mellitus Heart disease Hypertension Myocardial infarction Pancreatic cancer Prostate cancer Social History Smoking Status: Never Smoker Smokeless Tobacco Use: No Alcohol Use: none Drug Use: none Marital Status: single Housing status: lives alone Occupational Status: retired Immunizations History of Influenza Vaccine: Yes Influenza Vaccine Date: May 14, 2015 History of Tetanus Vaccine?: Yes Tetanus Immunization Date: Sep 14, 2011 History of Pneumococcal: Yes Pneumococcal Date: Sep 14, 2013 History of Hepatitis B Vaccine: No Allergies Coded Allergies: Iodinated Diagnostic Agents (Verified Allergy, Unknown, oil based, severe headaches, 10/27/16) EVENT OCCURED IN 1971, PT STATES HE HAS HAD 3 DIFFERENT WATER BASED IVP DYES WITH NO ISSUE Home Medications Scheduled Amlodipine (Norvasc), 10 MG PO DAILY Calcitriol (Calcitriol), 0.25 MCG PO 3XWK Escitalopram (Lexapro), 10 MG PO DAILY Ferrous Sulfate (Ferrous Sulfate), 325 MG PO BID Hydralazine Hcl (Apresoline), 100 MG PO TID Insulin Glargine (Lantus), 14 SC QPM Insulin Lispro (Human) (Humalog Kwikpen), 10-20 SC AFTER DINNER Lactobacillus Acidophilus (Lactinex Granules), 1 GM PO TIDM Metoprolol Succinate (Toprol Xl), 25 MG PO BID Nivolumab (Opdivo), 40 MG IV Q14D Prednisone (Prednisone), 5 MG PO DAILY Senna/Docusate Sod (Senokot S), 1 TAB PO DAILY Simvastatin (Zocor), 20 MG PO QPM Sodium Bicarbonate (Sodium Bicarbonate), 650 MG PO DAILY Terazosin (Hytrin), 5 MG PO HS [Aspirin], 81 MG PO DAILY Scheduled PRN Polyethylene (Miralax), 17 GM PO DAILY PRN for Constipation Review of Systems Constitutional: + fever, + chills, + fatigue Eyes: + problem reported (bilateral eye edema) ENT: + problem reported (dry mouth; thrush), No nasal symptoms, No sore throat , No trouble swallowing Respiratory: + cough (since Lisinopril), No sputum, No wheezing, No hemoptysis Cardiovascular: + chest pain (chronic L sided since AV fistula 03/22 - intermittent), No palpitations Abdomen: + pain (R side into R flank), No nausea, No vomiting, No diarrhea ( but loose), No constipation, No GI bleeding Musculoskeletal: + swelling (abdominal edema, hands, b/l eyelids), No calf pain Genitourinary - Male: + urinary hesitancy (chronic with BPH), No dysuria, No urinary frequency, No urinary urgency, No urinary retention Hematologic / Lymphatic: No abnormal bleeding/bruising, No clotting problems Integumentary: No rash Physical Exam General Appearance: no apparent distress, Head: normocephalic, atraumatic Eyes: sclerae normal, ENT: hearing grossly normal Neck: supple, no JVD, trachea midline Respiratory/Chest: no accessory muscle use, clear Cardiovascular: regular rate, rhythm, no gallop, no murmur Abdomen/GI: normal bowel sounds, non tender, soft, Extremities/Musculoskelatal: no calf tenderness, no pedal edema, left arm fistula with thrill Neurologic/Psych: alert, oriented x 3 Skin: normal color, warm/dry Imp: Renal cell carcinoma Plan: Patient admitted for port insertion.. I have discussed the risks options and benefits of the procedure with the patient. The patient understands the risks options and benefits and agrees to the procedure.
--- NOTE | 2017-04-28 07:58 | Procedure Note ---
Pre-Mod Sedation Assessment General Date of Moderate Sedation: Apr 28, 2017. Vital Signs: Vital Signs Past 12 Hours Date Time Temp Pulse Resp B/P (MAP) Pulse Ox O2 Delivery O2 Flow Rate FiO2 04/28/17 07:08 36.9 83 18 175/80 (111) 98 Room Air Pre-Sedation Airway Assessment Oral Cavity: Capped Teeth Smoking Status: Never Smoker Mallampati Classification: Class I ASA Classification: Class III Notes The planned sedation has been discussed with the patient and consent obtained. I have identified the patient, determined the appropriateness of sedation and have assessed the patient immediately prior to the procedure. All medicine(s) and interventions are by my order.
[2017-04-28 08:05] VITALS: BP 175/80; PULSE 83; TEMP 36.9; O2SAT 98
--- NOTE | 2017-04-28 09:11 | [facility] Post Operative Brief Note ---
Immediate Operative Summary Operative Date Apr 28, 2017. Pre-Operative Diagnosis Renal cell carcinoma Post-Operative Diagnosis Same Procedure(s) Performed Insertion of Infusaport, Right Jugular Approach Ultrasound Localization of Right Jugular Vein Fluoroscopy for Positioning Moderate Sedation [id number] Surgeon Adelso Lunchroom Operator Surgeon(s) None Estimated Blood Loss 5 Findings tip in distal SVC Specimens None Anesthesia Local with sedation Complication(s) None Disposition
--- NOTE | 2017-04-28 09:11 | Procedure Note ---
Post-Moderate Sedation Plan General Date of Moderate Sedation Apr 28, 2017. Vital Signs: Vital Signs Past 12 Hours Date Time Temp Pulse Resp B/P (MAP) Pulse Ox O2 Delivery O2 Flow Rate FiO2 04/28/17 09:02 84 18 161/74 100 Nasal Cannula 2 04/28/17 08:05 36.9 83 18 175/80 98 Room Air 04/28/17 07:08 36.9 83 18 175/80 (111) 98 Room Air Review - Discharge Plan Post Moderate Sedation Plan: On clinical assessment, the patient appears to have tolerated the conscious sedation without complications. Patient is recovering as anticipated. Patient will continue to be monitored by nursing and may be discharged when conscious sedation discharge criteria are met.
--- NOTE | 2017-04-28 09:14 | [facility] Operative Report ---
Operative Report Operative Date Apr 28, 2017. Pre-Operative Diagnosis Renal cell carcinoma Post-Operative Diagnosis Same Procedure(s) Performed Insertion of Infusaport, Right Jugular Approach Ultrasound Localization of Right Jugular Vein Fluoroscopy for Positioning Moderate Sedation [id number] Surgeon Adelso Coagulant Dipper Surgeon(s) None Estimated Blood Loss 5 Findings tip in distal SVC Specimens None Anesthesia Local with sedation Complication(s) None Disposition Indications This is a 61-year-old male with a renal cell carcinoma in need of access for chemotherapy. [id number] was recommended. I have discussed the risks options and benefits of the procedure with the patient. The patient understands the risks options and benefits and agrees to the procedure. Description of Procedure Patient was takent to the angio suite and placed in the supine position. The right side of the neck and chest wall were prepped and draped in a sterile manner. Local anesthesia was then administered to the appropriate areas of the neck and chest wall. A transverse incision was made below the clavicle on the chest wall and an inferior pocket was make. Bleeding was controlled using cautery. Ultrasound was then used to locate the right internal jugular vein. The vein compressed easily, had no filing defects, and was patent. The vein was then punctured under direct ultrasound imaging. A guidewire was then passed centrally under fluoroscopic imaging. The port catheter was then passed from the pocket incision to the puncture site in the neck using the tunneling device. The peel away sheath was inserted. The catheter was then beveled at the tip and inserted through the peel away sheath. The tip was then positioned in the distal SCV. It was then attached to the port and the catheter clamp applied. The port was then placed in the pocket and sutured to the chest fascia using prolene suture. The puncture site was then closed using a 4-0 Vicryl subcuticular suture. The chest incision was closed using a 3-0 Vicryl suture for the subcutaneous layer and a 4-0 Vicryl subcuticular stitch for the skin layer. Dermabond was used for a dressing on the puncture site and the incision. The port aspirated and flushed easily and was then flushed with heparinized saline. The patient left the angio suite in good condition and tolerated the procedure well. I attest to the content of the Intraoperative Record and any orders documented therein. Any exceptions are noted below.
[2017-04-28 09:15] VITALS: BP 171/78; PULSE 82; TEMP 36.6; O2SAT 97
--- NOTE | 2017-04-28 09:16 | Discharge Instructions ---
Discharge Instructions Date of Service Apr 28, 2017. Visit Reason for Visit: Renal Cell Carcinoma Discharge Discharge Diagnosis / Problem: Renal carcinoma Discharge Goals Goal(s): Therapeutic intervention Activity Recommendations Activity Limitations: per Instructions/Follow-up section Shower/Bathe: tomorrow Anesthesia . Post Anesthesia Instructions: If you have had General Anesthesia or IV Sedation: * Do not drive today. * Resume driving when surgeon permits. * Do not make important decisions or sign legal documents today. * Call surgeon for: 1. Temperature elevations greater than 101 degrees F. 2. Uncontrollable pain. 3. Excessive bleeding. 4. Persistent nausea and vomiting. 5. Medication intolerance (nausea, vomiting or rash). * For nausea and vomiting use only clear liquids such as: tea, soda, bouillon until nausea subsides, then gradually increase diet as tolerated. * If you have any concerns or questions, call your surgeon's office. If physician is unavailable and it is an emergency, call 911 or go to the nearest emergency room. . Instructions / Follow-Up Instructions / Follow-Up Call [phone] to schedule a follow up appointment if one not already scheduled. ACTIVITY RECOMMENDATIONS: See Above SPECIAL CARE INSTRUCTIONS: Call your doctor if: * Temperature above 101 degrees * Pain not relieved by pain medicine ordered * There is increased drainage or redness from any incision * You have any unanswered questions or concerns. ACTIVITY RECOMMENDATIONS: It is common to feel weak and fatigue for a few days. * Do not drive or operate any motorized equipment for the next three days. * Limit stair usage (2 or 3 trips a day only) for the next three days. * Do not lift anything heavier than 10 pounds for the next three days. * Do not engage in vigorous exercise or any sports for the next five days. * You may shower the day after your procedure, but do not immerse the area for three days. Cleanse the site gently with soap and water. SPECIAL CARE INSTRUCTIONS: * You may replace the pressure dressing or band-aid the morning after the procedure. * After your procedure, it is normal to have a small bruise or small lump at the site. Examine your site daily for any change in the bruise or lump, redness, swelling, drainage or numbness. Notify your doctor if any change. BLEEDING: * If there is a small amount of bleeding at the site, lie down and apply firm pressure with a clean cloth for ten minutes. When the bleeding stops, lie quietly keeping the procedure limb straight for six hours. Notify your doctor as soon as possible. * If the bleeding does not stop after ten minutes or if there is a large amount of bleeding or spurting, call 911 immediately. Continue to lie down and hold firm pressure until help arrives. SKIN IRRITATION: * You may experience some redness and/or swelling in the area where radiation was administered. If any skin irritation occurs, please contact your family physician. FOLLOW UP VISIT: Keep any scheduled doctor appointments. Diet Recommendations Recommended Home Diet: resume previous diet Procedures Procedures Performed: Insertion of Infusaport, Right Jugular Approach Ultrasound Localization of Right Jugular Vein Fluoroscopy for Positioning Moderate Sedation [id number] Pending Studies Studies pending at discharge: no Medical Emergencies . Who to Call and When: Medical Emergencies: If at any time you feel your situation is an emergency, please call 911 immediately. . Non-Emergent Contact Non-Emergency issues call your: Surgeon . . "Provider Documentation" section prepared by Rashaun Darden. .
[2017-04-28 09:44] VITALS: BP 165/76; PULSE 81; O2SAT 97
[2017-04-28 10:15] VITALS: BP 149/68; PULSE 78; TEMP 36.6; O2SAT 98
== END | disposition home or self-care (01) ==
LOC: C.ACU 06:22
PROVIDERS: ATTEND Surgery Vascular Surgery
DX: C64.2 Malignant neoplasm of left kidney, except renal pelvis (principal); Z90.5 Acquired absence of kidney; N18.4 Chronic kidney disease, stage 4 (severe); I12.9 Hypertensive chronic kidney disease with stage 1 through stage 4 chronic kidney disease, or unspecified chronic kidney disease; E11.9 Type 2 diabetes mellitus without complications; E78.5 Hyperlipidemia, unspecified; D63.1 Anemia in chronic kidney disease; N40.0 Benign prostatic hyperplasia without lower urinary tract symptoms; F32.9 Major depressive disorder, single episode, unspecified; Z79.4 Long term (current) use of insulin; Z79.82 Long term (current) use of aspirin; Z83.3 Family history of diabetes mellitus; Z82.49 Family history of ischemic heart disease and other diseases of the circulatory system; Z80.42 Family history of malignant neoplasm of prostate; Z80.0 Family history of malignant neoplasm of digestive organs

== ENCOUNTER → 2017-05-22 | Outpatient (CLI) | payer OTHER ==
[~2017-05-22] MED LIST changes: -ACCU; -Aspirin PO; -BUPIVACAINE/EPINEPHRINE 0.5% MPF 1:200,000 10 ML VIAL ONE; -BUPIVACAINE/EPINEPHRINE 0.5% MPF 1:200,000 30 ML VIAL INFIL ONE; -CEFAZOLIN 2000 MG/60 ML D5W 60 ML IV SCH; -FENTANYL CITRATE INJ 50 MCG/1 ML 2 ML VIAL IV ONE; -FENTANYL CITRATE INJ 50 MCG/1 ML 2 ML VIAL ONE; -HYDROCORTISONE IV 100 MG in SYRINGE 0 ML IV SCH; -HYDROCORTISONE SOD SUCCINATE 100 MG/2 ML VIAL ONE; -INSDGIPEN SC; -INSU1MIS SC; -LIDOCAINE HCL 1% 20 ML VIAL INFIL ONE; -LIDOCAINE HCL 1% 20 ML VIAL ONE; -MIDAZOLAM HCL 1 MG/ML 2ML VIAL IV ONE; -MIDAZOLAM HCL 1 MG/ML 2ML VIAL ONE; -OXYCODONE/ACETAMINOPHEN 5-325 TAB PO PRN; -PRD50 PO; -SODIUM CHLORIDE 0.9% 1000ML IV SCH; -TERA5CAP PO; -test strips EXT
[2017-05-22 14:24] LABS: HEMATOCRIT 35.9 % (42-52); MEAN CELL VOLUME 84.7 fL (80-100); MEAN CORPUSCULAR HEMOGLOBIN 27.1 pg (25-34); MEAN PLATELET VOLUME 10.3 fL (7.4-10.4); PLATELET COUNT 155 K/uL (130-400); RED BLOOD COUNT 4.24 M/uL (4.7-6.1)
[2017-05-22 14:27] LABS: ESTIMATED AVERAGE GLUCOSE 137 mg/dl; HA1C FLAG Normal (Normal)
[2017-05-22 15:13] LABS: BLOOD UREA NITROGEN 85 mg/dl (7-18); BUN/CREATININE RATIO 21.3 (10-20); CARBON DIOXIDE 28 mmol/L (21-32); CHLORIDE 102 mmol/L (98-107); CREATININE 3.97 mg/dl (0.60-1.40); GLUCOSE 49 mg/dl (70-99); PHOSPHORUS 6.2 mg/dl (2.5-4.9); POTASSIUM 3.5 mmol/L (3.5-5.1); SODIUM 140 mmol/L (136-145)
== END | disposition home or self-care (01) ==
LOC: C.LAB1850 13:38
PROVIDERS: ATTEND Internal Medicine Nephrology
DX: E11.9 Type 2 diabetes mellitus without complications (principal); D64.9 Anemia, unspecified; N18.4 Chronic kidney disease, stage 4 (severe); N17.9 Acute kidney failure, unspecified

== ENCOUNTER 2017-06-10 18:01 | Inpatient (IN) | payer OTHER ==
[~2017-06-10] VITALS: Ht 177.8 cm; Wt 85.0 kg
[2017-06-10] MEDS ORDERED: DEXTROSE 50% 50 ML SYR ONE (20:05)
[2017-06-10 20:15] VITALS: BP 156/80; PULSE 105; TEMP 37; O2SAT 94
[2017-06-10] MEDS ORDERED: GLUCOSE 10 TABS/TUBE PO PRN (20:15)
[2017-06-10] MEDS ORDERED: GLUCAGON FOR INJ 1 MG VIAL SQ PRN (20:15)
[2017-06-10] MEDS ORDERED: GLUCOSE 40% GEL 15 GM TUBE PO PRN (20:15)
[2017-06-10] MEDS ORDERED: MAGNESIUM HYDROXIDE SUSP 30 ML UDC PO PRN (20:15)
[2017-06-10] MEDS ORDERED: DEXTROSE 50% 50 ML SYR IV PRN (20:15)
[2017-06-10] MEDS ORDERED: ONDANSETRON INJ 2 MG/ML 2 ML VIAL IV PRN (20:15)
[2017-06-10] MEDS ORDERED: ALUMINUM/MAGNESIUM/SIMETH (MAALOX MAX) 30 ML UDC PO PRN (20:15)
[2017-06-10] MEDS ORDERED: POLYETHYLENE (MIRALAX) 17 GM PACK PO PRN ×2 (20:15→22:00)
[2017-06-10] MEDS ORDERED: ACETAMINOPHEN 325 MG TAB PO PRN (20:15)
--- NOTE | 2017-06-10 20:37 | History and Physical ---
History & Physical Date & Time of Service: Jun 10, 2017 at 20:32 Chief Complaint: Hand Cellulitis, Metastatic Cancer Primary Care Physician: Salvador Muller M.D. History of Present Illness Source: patient Mr Padilla Christy is a 61 year old male with type 2 diabetes, metastatic RCC, s/p L nephrectomy, CKD stage IV (has a left arm AV fistula, not on dialysis yet), who presents via ambulance as a transfer from [facility] today. He reports he was working with a drill and the drill bit flew out of his hands, and punctured the dorsal aspect of his left hand. Since then it has become increasingly red, tender, and swollen. It is unclear when this injury actually occurred, though likely a few days ago, and he was found on the floor alone and taken to [facility]. At [facility], his WBC was 11.6, Hb 11.4, Hct 34.0, CRP 2.85, Glc 74, Creatinine 5.0, eGFR 12, Lactate 1.9. He was started on Vancomycin and Cefepime. His L hand Xray showed diffuse swelling with DJD of the peripheral small joints of the hand. His CT head and CXR were normal. He was transferred here due to concern for tenosynovitis, and since his specialists are here - he follows with Dr. Norwood of Nephrology and Dr. Dao of Oncology. He was also recently admitted 03/29 for acute renal failure and pneumonia. Since discharge, he had a port placed in the R chest. Upon arrival, the pt was very lethargic, but able to speak a few words. His BSG was found to be 26. D5 was administered and his blood glc was 186 15 minutes later. He reported severe pain in the hand, and that he is able to move his fingers around. He confirmed he is a full code. Past Medical/Surgical History PMHx/PSHx 1. Metastatic Renal Cell Carcinoma S/P L Nephrectomy 2. CKD Stage IV 3. T2DM 4. HTN 5. HLD 6. Chronic Anemia 7. BPH 8. Anxiety/Depression 9. R sided port placement Family History Cervical cancer Diabetes mellitus Heart disease Hypertension Myocardial infarction Pancreatic cancer Prostate cancer Social History Smoking Status: Never Smoker Drug Use: none Marital Status: single Housing status: lives alone Occupational Status: retired Immunizations History of Influenza Vaccine: Yes Influenza Vaccine Date: May 14, 2015 History of Tetanus Vaccine?: Yes Tetanus Immunization Date: Sep 14, 2011 History of Pneumococcal: Yes Pneumococcal Date: Sep 14, 2013 History of Hepatitis B Vaccine: No Allergies Coded Allergies: Iodinated Diagnostic Agents (Verified Allergy, Unknown, oil based, severe headaches, 04/28/17) EVENT OCCURED IN 1971, PT STATES HE HAS HAD 3 DIFFERENT WATER BASED IVP DYES WITH NO ISSUE Home Medications Scheduled Amlodipine (Norvasc), 10 MG PO DAILY Aspirin (Aspirin Ec), 81 MG PO DAILY Cabozantinib S-Malate (Cabometyx), 1 TAB PO DAILY Calcitriol (Calcitriol), 0.25 MCG PO 3XWK Fentanyl (Fentanyl), 25 PATCH TOP [id number] Ferrous Sulfate (Ferrous Sulfate), 325 MG PO BID Furosemide (Furosemide), 40 MG PO DIRECTED Hydralazine Hcl (Apresoline), 100 MG PO TID Insulin Aspart (Novolog Flexpen), 0 UNITS SC ACHS Insulin Glargine (Lantus), 25 UNITS SC QPM Lactobacillus Acidophilus (Lactinex Granules), 1 GM PO TIDM Methadone Hcl (Dolophine), 2.5 MG PO BID Metoprolol Succinate (Metoprolol Succinate ER), 100 MG PO BID Prednisone (Prednisone), 20 MG PO TID Simvastatin (Zocor), 20 MG PO QPM Tamsulosin Hcl (Flomax), 0.4 MG PO DAILY Scheduled PRN Oxycodone Hcl (Oxycodone Hcl), 10 MG PO Q6 PRN for Pain Polyethylene (Miralax), 17 GM PO DAILY PRN for Constipation Review of Systems See HPI for pertinent positives & negatives. A total of 10 systems reviewed and were otherwise negative. Physical Exam Vital Signs Date Time Temp Pulse Resp B/P (MAP) Pulse Ox O2 Delivery O2 Flow Rate FiO2 06/10/17 20:15 37.0 105 22 156/80 (105) 94 Nasal Cannula 2.0 General Appearance: WD/WN, no apparent distress Head: normocephalic, atraumatic Eyes: normal inspection ENT: hearing grossly normal Neck: supple, no JVD Respiratory/Chest: lungs clear, normal breath sounds, no respiratory distress Cardiovascular: regular rate, rhythm, no murmur Abdomen/GI: normal bowel sounds, non tender, soft Back: normal inspection, no muscle spasm Extremities/Musculoskelatal: no calf tenderness, normal capillary refill, no pedal edema Neurologic/Psych: alert, normal mood/affect, normal reflexes, oriented x 3 Skin: + pertinent finding (small circular wound to dorsal L hand with surrounding erythema and warmth. tender to touch up to mid-forearm.) Diagnostics Diagnostic Radiology CT Head at [facility]: Negative for intracranial findings XRay of hand at [facility]: Diffuse swelling, DJD peripheral small joints CXR normal Normal EKG Impression Assessment and Plan 61 yo M with metastatic renal Ca, s/p L nephrectomy, who has a cellulitis on his L arm w/significant edema. Cellulitis of L hand and forearm - Will continue Vancomycin and Cefepime, with pharmacy consults - Will consult ortho to evaluate for tenosynovitis - Line drawn at margins of erythema on forearm currently Hypoglycemic episode - Pt moved to Telemetry - Started on 1/2NS D5W w/ potassium due to repeat low BSG aruond 9PM - BSG q2h for now - Hold home Lantus and Novolog CKD stage IV, s/p nephrectomy - Repeat BMP in AM - Consult Nephrology in case needs dialysis Metastatic RCC - Continue fentanyl patch, methadone, with Oxy IR for breakthrough pain HTN - Continue aspirin, hydralazine, beta destinee, statin VTE: Heparin Dispo: Admit to Tele Code status: FULL Resident Physician Supervision Note: I interviewed and examined the patient. Discussed with Dr. Asher and agree with findings and plan as documented in the note. Any exceptions or clarifications are listed here: None Patient transferred from an outside facility generally seeks his care for his metastatic renal cell carcinoma and renal failure R facility. The patient was found hypothermic with concern for a volar left hand cellulitis and possible Teno synovitis Upon arrival the patient was hypoglycemic after D50 he was arousable and recognized me as I taken care of in the past his left dorsal hand was very painful erythematous with a puncture wound on the dorsal aspect that he patient claims is from an drill bit His vital signs were stable Cardiac exam was regular lungs were clear he is exquisitely tender and erythematous Patient is brought in with concern for possible Teno synovitis, was given vancomycin and cefepime which will be continued with pharmacy consults and orthopedic evaluation for possible deeper tissue infection Documented By: Greyson Mabry 1. Metastatic Renal Cell Carcinoma S/P L Nephrectomy 2. CKD Stage IV 3. T2DM 4. HTN 5. HLD 6. Chronic Anemia 7. BPH 8. Anxiety/Depression VTE Prophylaxis VTE Risk Assessment Done? Y/N: Yes Risk Level: Moderate Resident Tracking Resident Involvement: Resident Care Provided Care Provided: Adult Hospital Medicine
[2017-06-10 21:00] VITALS: BP 156/80; PULSE 105; TEMP 37; O2SAT 94
[2017-06-10 21:06] VITALS: BMI 27.2
[2017-06-10 21:08] VITALS: BP 183/97; PULSE 111; TEMP 37.3; O2SAT 95
[2017-06-10] MEDS: D5W AND 1/2NSS + 20MEQ KCL 1,000 ML IV SCH (21:24)
[2017-06-10] MEDS ORDERED: OXYCODONE HCL IR 5 MG TAB (IMMEDIATE RELEASE) PO STA (21:54)
[2017-06-10] MEDS ORDERED: FENTANYL TOP SCH (22:00)
[2017-06-10] MEDS ORDERED: CABO60TA PO (22:07)
[2017-06-10] MEDS ORDERED: CEFEPIME CONSULT ACTIVE PRN ×2 (22:20)
[2017-06-10] MEDS: SIMVASTATIN 20 MG TAB PO SCH (22:27)
[2017-06-10] MEDS: CHECK FENTANYL PATCH PLACEMENT SCH (22:28)
[2017-06-10] MEDS ORDERED: CEFEPIME IV 2,000 MG in SYRINGE 7.5 ML IV SCH (22:30)
[2017-06-10] MEDS ORDERED: VANCOMYCIN CONSULT ACTIVE PRN (22:30)
[2017-06-10] MEDS ORDERED: METHADONE HCL 5 MG TAB PO SCH (22:30)
[2017-06-10 23:39] VITALS: BP 166/78; PULSE 92; TEMP 37.3; O2SAT 96
[2017-06-10 23:48] LABS: CREATININE 4.62 mg/dl (0.60-1.40)
[2017-06-11] MEDS ORDERED: VANCOMYCIN INJ 1,500 MG in SODIUM CHLORIDE 0.9% 500ML 500 ML IV SCH (01:30)
[2017-06-11] MEDS: OXYCODONE HCL IR 5 MG TAB (IMMEDIATE RELEASE) PO PRN ×4 (03:16→21:02)
[2017-06-11 03:42] VITALS: BP 139/90; PULSE 104; TEMP 37.7; O2SAT 96
[2017-06-11 06:03] LABS: HEMATOCRIT 26.2 % (42-52); MEAN CELL VOLUME 84.5 fL (80-100); MEAN CORPUSCULAR HEMOGLOBIN 27.4 pg (25-34); MEAN CORPUSCULAR HGB CONC 32.4 g/dl (32-36); WHITE BLOOD COUNT 7.09 K/uL (4.8-10.8)
[2017-06-11 06:08] LABS: PROTHROMBIN TIME (PATIENT) 11.1 SECONDS (9.0-12.0)
[2017-06-11 06:29] LABS: MEAN PLATELET VOLUME 9.8 fL (7.4-10.4); PLATELET COUNT 93 K/uL (130-400)
[2017-06-11 06:30] LABS: ANISOCYTOSIS PRESENT; COMPLETE YES; EOS % 0.4 %; IG% 0.6 %; LYMPH % 3.9 %; LYMPH ABS # 0.28 K/uL (1.2-3.4); MONO % 3.5 %; NEUT % 91.6 %; PLT ESTIMATE DECREASED
[2017-06-11 06:48] LABS: ALB/GLOB RATIO 0.5 (0.9-2); BUN/CREATININE RATIO 19.7 (10-20); CALCIUM 7.4 mg/dl (8.5-10.1); CREATININE 4.65 mg/dl (0.60-1.40); POTASSIUM 3.5 mmol/L (3.5-5.1)
[2017-06-11] MEDS: LACTOBACILLUS ACIDOPHILUS 1 GM PACK PO SCH ×3 (07:30→15:26)
--- NOTE | 2017-06-11 07:41 | Family Medicine Progress Note ---
Progress Note Date of Service Jun 11, 2017. Subjective Pt evaluation today including: conversation w/ patient, physical exam, chart review, lab review Patient injured his hand early in the week, was seen at urgent care center. Patient was not started on antibiotics. He said that his had continued to swell. He says that he wasn't feeling too well yesterday and repeatedly feel. Pt was found to have low blood sugar. Today he is feeling better, but reports some muscle aches from falls. Constitutional: + fever, No chills, No sweats Respiratory: No cough, No sputum, No wheezing, No shortness of breath Cardiovascular: No chest pain, No edema, No palpitations Abdomen: No pain, No nausea, No vomiting, No diarrhea Musculoskeletal: + muscle pain Medications Current Inpatient Medications Medications (Trade) Dose Ordered Sig/Edward Route Start Time Stop Time Status Last Admin Dose Admin Glucose (Glucose 40% Gel) 15-30 GRAMS 15 GRAMS... UD PRN PO 06/10/17 20:15 07/10/17 20:14 06/10/17 21:40 30 GM Glucose (Glucose Chew Tab) 4-8 Tablets 4 Tabl... UD PRN PO 06/10/17 20:15 07/10/17 20:14 Dextrose (Dextrose 50% 50ML Syringe) 25-50ML OF 50% DW IV FOR... UD PRN IV 06/10/17 20:15 07/10/17 20:14 Glucagon (Glucagon Inj) 1 mg UD PRN SQ 06/10/17 20:15 07/10/17 20:14 Acetaminophen (Tylenol Tab) 650 mg Q4H PRN PO 06/10/17 20:15 07/10/17 20:14 06/10/17 21:22 650 MG Al Hydrox/Mg Hydrox/Simethicone (Maalox Max Susp) 15 ml Q4H PRN PO 06/10/17 20:15 07/10/17 20:14 Magnesium Hydroxide (Milk Of Magnesia Susp) 30 ml Q12H PRN PO 06/10/17 20:15 07/10/17 20:14 Ondansetron HCl (Zofran Inj) 4 mg Q6H PRN IV 06/10/17 20:15 07/10/17 20:14 Polyethylene (Miralax Powder Packet) 17 gm DAILY PRN PO 06/10/17 20:15 07/10/17 20:14 Potassium Chloride/Dextrose/ Sod Cl 1,000 ml @ 80 mls/hr [id number] IV 06/10/17 21:45 06/12/17 11:14 06/11/17 09:21 80 MLS/HR Amlodipine Besylate (Norvasc Tab) 10 mg DAILY PO 06/11/17 09:00 07/11/17 08:59 06/11/17 08:27 10 MG Aspirin (Ecotrin Tab) 81 mg DAILY PO 06/11/17 09:00 07/11/17 08:59 06/11/17 08:27 81 MG Calcitriol (Rocaltrol Cap) 0.25 mcg MoWeFr@0900 PO 06/12/17 09:00 07/12/17 08:59 Ferrous Sulfate (Feosol Tab) 325 mg BID PO 06/11/17 09:00 07/11/17 08:59 06/11/17 08:26 325 MG Furosemide (Lasix Tab) 40 mg DAILY PO 06/11/17 09:00 07/11/17 08:59 06/11/17 08:28 40 MG Hydralazine HCl (Apresoline Tab) 100 mg TID PO 06/11/17 09:00 07/11/17 08:59 06/11/17 08:27 100 MG Lactobacillus Acidophilus (Lactinex Granules Pack) 1 gm TIDM PO 06/11/17 07:30 07/11/17 07:29 Methadone HCl (Dolophine Tab) 2.5 mg BID PO 06/11/17 09:00 06/25/17 08:59 06/11/17 08:26 2.5 MG Prednisone (PredniSONE TAB) 20 mg TID PO 06/11/17 09:00 07/11/17 08:59 06/11/17 08:27 20 MG Simvastatin (Zocor Tab) 20 mg QPM PO 06/11/17 21:00 07/11/17 20:59 06/10/17 22:27 20 MG Tamsulosin HCl (Flomax Cap) 0.4 mg DAILY PO 06/11/17 09:00 07/11/17 08:59 06/11/17 08:26 0.4 MG Metoprolol Succinate (Toprol Xl Tab) 100 mg BID PO 06/11/17 09:00 12/19/17 08:59 06/11/17 08:28 100 MG Oxycodone HCl (Roxicodone Immediate Rel Tab) 5 mg Q4H PRN PO 06/10/17 22:00 06/24/17 21:59 06/11/17 03:16 5 MG Non-Formulary Medication (Non-Formulary Patient'S Own Med) 1 ea DAILY PO 06/11/17 09:00 07/11/17 08:59 06/11/17 08:28 1 EA Fentanyl (Duragesic Patch) 25 mcg Q3D TD 06/13/17 09:00 06/27/17 08:59 Miscellaneous (Fentanyl Patch Remove & Waste) 1 ea Q3D N/A 06/13/17 08:59 07/13/17 08:58 Miscellaneous Information (Check Fentanyl Patch Placement) 1 ea QS N/A 06/11/17 00:00 07/11/17 00:00 06/11/17 08:28 1 EA Cefepime HCl (Consult) 1 ea DAILY PRN N/A 06/10/17 22:20 07/10/17 22:19 Vancomycin HCl (Consult) 1 ea UD PRN N/A 06/10/17 22:30 07/10/17 22:29 Cefepime HCl 1000 mg/Syringe 11 ml @ 5.5 mls/min DAILY@2300 IV 06/11/17 23:00 06/19/17 23:01 Objective Vital Signs Date Time Temp Pulse Resp B/P (MAP) Pulse Ox O2 Delivery O2 Flow Rate FiO2 06/11/17 08:00 Room Air 06/11/17 07:58 37.8 101 19 179/87 (117) 91 Room Air 06/11/17 04:02 Nasal Cannula 2.0 06/11/17 03:42 37.7 104 19 139/90 (106) 96 Room Air 06/11/17 00:02 Nasal Cannula 2.0 06/10/17 23:39 37.3 92 17 166/78 (107) 96 06/10/17 21:08 37.3 111 20 183/97 (125) 95 Nasal Cannula 2.0 06/10/17 21:08 Nasal Cannula 2.0 06/10/17 21:00 37.0 105 20 94 2.0 06/10/17 20:15 37.0 105 22 156/80 (105) 94 Nasal Cannula 2.0 06/10/17 19:45 Nasal Cannula 2.0 Physical Exam General Appearance: WD/WN, no apparent distress Respiratory/Chest: chest non-tender, lungs clear, normal breath sounds, no respiratory distress, no accessory muscle use Cardiovascular: regular rate, rhythm, no edema, no gallop, no JVD, no murmur Neurologic/Psychiatric: alert, normal mood/affect, oriented x 3 Skin: + pertinent finding (erythematous swollen left hand, patient has tenderness with palpation, multiple small healing wounds dorsum and wrist, nonexudative. ) Laboratory Results 06/11/17 05:44 Red Blood Count 3.10, Mean Corpuscular Volume 84.5, Mean Corpuscular Hemoglobin 27.4, Mean Corpuscular Hemoglobin Concent 32.4, Mean Platelet Volume 9.8, Neutrophils (%) (Auto) 91.6, Lymphocytes (%) (Auto) 3.9, Monocytes (%) (Auto) 3.5, Eosinophils (%) (Auto) 0.4, Basophils (%) (Auto) 0.0, Neutrophils # (Auto) 6.49, Lymphocytes # (Auto) 0.28, Monocytes # (Auto) 0.25, Eosinophils # (Auto) 0.03, Basophils # (Auto) 0.00 06/11/17 05:44 Test 06/11/17 05:44 06/11/17 08:42 06/11/17 09:44 White Blood Count 7.09 K/uL (4.8-10.8) Red Blood Count 3.10 M/uL (4.7-6.1) Hemoglobin 8.5 g/dL (14.0-18.0) Hematocrit 26.2 % (42-52) Mean Corpuscular Volume 84.5 fL (80-100) Mean Corpuscular Hemoglobin 27.4 pg (25-34) Mean Corpuscular Hemoglobin Concent 32.4 g/dl (32-36) Platelet Count 93 K/uL (130-400) Mean Platelet Volume 9.8 fL (7.4-10.4) Neutrophils (%) (Auto) 91.6 % Lymphocytes (%) (Auto) 3.9 % Monocytes (%) (Auto) 3.5 % Eosinophils (%) (Auto) 0.4 % Basophils (%) (Auto) 0.0 % Neutrophils # (Auto) 6.49 K/uL (1.4-6.5) Lymphocytes # (Auto) 0.28 K/uL (1.2-3.4) Monocytes # (Auto) 0.25 K/uL (0.11-0.59) Eosinophils # (Auto) 0.03 K/uL (0-0.5) Basophils # (Auto) 0.00 K/uL (0-0.2) RDW Standard Deviation 57.8 fL (36.4-46.3) RDW Coefficient of Variation 18.7 % (11.5-14.5) Immature Granulocyte % (Auto) 0.6 % Immature Granulocyte # (Auto) 0.04 K/uL (0.00-0.02) Nucleated RBC Absolute Count (auto) 0.02 K/uL (0-0) Nucleated Red Blood Cells % 0.3 % Platelet Estimate DECREASED Basophilic Stippling 1+ Anisocytosis PRESENT Prothrombin Time 11.1 SECONDS (9.0-12.0) Prothromb Time International Ratio 1.0 (0.9-1.1) Anion Gap 9.0 mmol/L (3-11) Est Creatinine Clear Calc Drug Dose 16.8 ml/min Estimated GFR () 14.4 Estimated GFR (Non- 12.4 BUN/Creatinine Ratio 19.7 (10-20) Calcium Level 7.4 mg/dl (8.5-10.1) Total Bilirubin 0.4 mg/dl (0.2-1) Aspartate Amino Transf (AST/SGOT) 43 U/L (15-37) Alanine Aminotransferase (ALT/SGPT) 35 U/L (12-78) Alkaline Phosphatase 57 U/L (45-117) C-Reactive Protein 11.20 mg/dl (0-0.29) Total Protein 4.3 gm/dl (6.4-8.2) Albumin 1.5 gm/dl (3.4-5.0) Globulin 2.8 gm/dl (2.5-4.0) Albumin/Globulin Ratio 0.5 (0.9-2) Bedside Glucose 159 mg/dl (70-99) Assessment and Plan 61 yo M with metastatic renal Ca, s/p L nephrectomy, who has a cellulitis on his L arm w/significant edema. Cellulitis of L hand and forearm - Will continue Vancomycin and Cefepime, with pharmacy consults - Ortho consulted to evaluate for tenosynovitis: recommend continuing IV abx, no surgical interventions needed at this time. - Line drawn at margins of erythema on forearm currently Hypoglycemic episode - Pt moved to Telemetry - Started on 1/2NS D5W w/ potassium due to repeat low BSG around 9 PM - Glycemic consult ordered - BSG q2h for now CKD stage IV, s/p nephrectomy - Repeat BMP in AM - Nephrology consulted; No immediate dialysis needed, monitor serial BMP, heplock IV, protect L upper ext., renal dose medications Metastatic RCC - Continue fentanyl patch, methadone, with Oxy IR for breakthrough pain HTN - Continue aspirin, hydralazine, beta destinee, statin VTE: Heparin Dispo: Admit to Tele Code status: FULL Reviewed: Pt Seen/Exam by Me History having pain in legs and chest left hand looks better Constitutional: denies: fever Respiratory: negative: short of breath Cardiovascular: denies chest pain General Appearance: no apparent distress Respiratory: lungs clear, no respiratory distress Cardiovascular: regular rate, rhythm Extremities: other (left hand with generalized swelling) Neurologic/Psychiatric: alert, oriented x 3 Assessment/Plan Resident Physician Supervision Note: I independently interviewed and examined the patient and verified the mcmanus history and physical, reviewed labs and image studies, discussed the case with the resident Dr. Zepeda and agree with the findings and care plan.
[2017-06-11 07:58] VITALS: BP 179/87; PULSE 101; TEMP 37.8; O2SAT 91
[2017-06-11] MEDS: FERROUS SULFATE 325 MG TAB PO SCH ×2 (08:26→20:05)
[2017-06-11] MEDS: TAMSULOSIN HCL 0.4 MG CAP PO SCH (08:26)
[2017-06-11] MEDS: AMLODIPINE BESYLATE 5 MG TAB PO SCH (08:27)
[2017-06-11] MEDS: ASPIRIN 81 MG ECTAB PO SCH (08:27)
[2017-06-11] MEDS: FUROSEMIDE 20 MG TAB PO SCH (08:28)
[2017-06-11] MEDS: CABOMETYX PO SCH (08:28)
[2017-06-11] MEDS: METOPROLOL SUCC 50MG EXT REL TAB PO SCH ×2 (08:28→20:06)
[2017-06-11] MEDS: CHECK FENTANYL PATCH PLACEMENT SCH ×3 (08:28→23:40)
[2017-06-11] MEDS ORDERED: FENTANYL 25 MCG/HR TDSY TD SCH (09:00)
[2017-06-11] MEDS ORDERED: METHADONE HCL 5 MG TAB PO SCH (09:00)
[2017-06-11] MEDS: D5W AND 1/2NSS + 20MEQ KCL 1,000 ML IV SCH (09:21)
--- NOTE | 2017-06-11 10:15 | ORTHOPEDIC CONSULTATION ---
DATE OF CONSULTATION: 06/11/2017 DATE OF CONSULTATION: 06/11/2017 CHIEF COMPLAINT: Left hand injury with cellulitis. HISTORY OF PRESENT ILLNESS: This patient is a 61-year-old right hand dominant gentleman with multiple medical comorbidities including type 2 diabetes, metastatic renal cell cancer status post nephrectomy, stage IV kidney disease who was transferred here from [facility] for left hand cellulitis and infection. He said he got this struck by some type of drill bit about a week and a half ago. About the middle of this past week is when it started to get more swollen and painful. He presented to [facility], had some antibiotics and then was referred here. He describes isolated left hand pain. He was transferred to the PCU for diabetes management and hypoglycemia. No other real complaints. He has had no significant drainage from the wounds. It is swollen and quite tender mostly in the dorsum of his hand PAST MEDICAL HISTORY: Significant for: 1. Type 2 diabetes. 2. Metastatic renal cell cancer status post nephrectomy. 3. Stage IV kidney disease. 4. Hypertension. 5. Chronic anemia. 6. BPH. 7. Anxiety/depression. Remainder of the past medical history is per the admission H&P. OBJECTIVE: VITAL SIGNS: Temperature is 37.8. Vital signs relatively stable. Mildly tachycardic. Blood pressure is a little on the high side. EXTREMITIES: Examination of the left hand reveals him to be holding it with cold compress on it. He does have some moderate diffuse swelling of his hand. There is a scab dorsally on the dorsum of his hand just proximal to the second MP joint with a scab over. He also has some scabs over the distal portion of the index finger. These all have scabs. There is moderate diffuse swelling. There are no signs of pus. There is no obvious fluid pockets, but just diffuse swelling. There is no real tenderness on the flexor tendon surface side of his hand. He can flex his fingers, most of them pretty well but the index is a little bit more painful. He is neurologically intact otherwise. Fairly mild cellulitis and more just swelling. LABORATORY DATA: White cell count 7.09. He is anemic with hemoglobin 8.5. No sed rate or C-reactive protein ordered. ASSESSMENT: A 61-year-old male with multiple medical comorbidities including diabetes with a left hand injury and laceration week and a half ago with some left hand cellulitis. There are no signs of pus or purulence. There are no signs of flexor tenosynovitis. The pain is mostly on the dorsum of the hand where the laceration is. There are no obvious pus pockets or fluid accumulations to suggest abscess or need for surgical treatment. PLAN: At this point, I would recommend continuing on the IV antibiotics with elevation. Most likely this will dissipate just with antibiotic treatment. We will check him daily. The surgical indications are primarily for pus or purulent accumulation. There are no signs of flexor tenosynovitis. The extensor tendon disease is more appropriately treated with antibiotics unless there is pus accumulated. Any orthopedic questions can be directed to me at [phone]. Will continue to follow him daily.
--- NOTE | 2017-06-11 11:30 | Nephrology Consultation ---
Nephrology Consultation Date & Providers Date of Consultation: Jun 11, 2017. Primary Care Provider: Salvador Muller M.D. Referring Provider: Reason for Consultation Evaluation of Stage V CKD History of Present Illness Mr. Christy is a 61 year old white male who is seen at the request of Dr. Asher for evaluation of advanced CKD. Medical records in the hospital EMR were reviewed today and are summarized as follows: Mr. Christy was incidentally found to have a left renal mass. He underwent left radical nephrectomy 10/06. Unfortunately lymph nodes were positive for metastatic spread. Postoperatively his serum creatinine stabilized at 3.3. Mr. Christy was treated w/ Sutent but developed nephrotic syndrome. He received a course of Opdivo therapy which was complicated by immune mediated colitis. Mr. Christy was taken off Opdivo and was treated with steroids. He reports that he has maintained close follow up with Oncology. He has just completed a 30 day course of a new medication but does not recall the name. Mr. Christy reports that last week he was sharpening a drill bit. He suffered a cut to his left hand. Although he washed w/ soap and water he developed erythema and swelling of his right hand. He presented to the ED last evening with cellulitis. Serum creatinine has risen to 4.65. Mr. Christy understands that HD may be necessary in the near future. He had a L arm AVF placed 03/09. 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 # HTN # Anemia # AODM # Hyperlipidemia # Basal cell skin CA # Diverticulosis Surgical: # L nephrectomy 10/06 # Partial colectomy due to diverticulitis 2009 # L arm AVF 03/09 - Dr. Darden Allergies Coded Allergies: Iodinated Diagnostic Agents (Verified Allergy, Unknown, oil based, severe headaches, 04/28/17) EVENT OCCURED IN 1971, PT STATES HE HAS HAD 3 DIFFERENT WATER BASED IVP DYES WITH NO ISSUE Inpatient Medications Current Inpatient Medications Medications (Trade) Dose Ordered Sig/Edward Route Start Time Stop Time Status Last Admin Dose Admin Glucose (Glucose 40% Gel) 15-30 GRAMS 15 GRAMS... UD PRN PO 06/10/17 20:15 07/10/17 20:14 06/10/17 21:40 30 GM Glucose (Glucose Chew Tab) 4-8 Tablets 4 Tabl... UD PRN PO 06/10/17 20:15 07/10/17 20:14 Dextrose (Dextrose 50% 50ML Syringe) 25-50ML OF 50% DW IV FOR... UD PRN IV 06/10/17 20:15 07/10/17 20:14 Glucagon (Glucagon Inj) 1 mg UD PRN SQ 06/10/17 20:15 07/10/17 20:14 Acetaminophen (Tylenol Tab) 650 mg Q4H PRN PO 06/10/17 20:15 07/10/17 20:14 06/10/17 21:22 650 MG Al Hydrox/Mg Hydrox/Simethicone (Maalox Max Susp) 15 ml Q4H PRN PO 06/10/17 20:15 07/10/17 20:14 Magnesium Hydroxide (Milk Of Magnesia Susp) 30 ml Q12H PRN PO 06/10/17 20:15 07/10/17 20:14 Ondansetron HCl (Zofran Inj) 4 mg Q6H PRN IV 06/10/17 20:15 07/10/17 20:14 Polyethylene (Miralax Powder Packet) 17 gm DAILY PRN PO 06/10/17 20:15 07/10/17 20:14 Potassium Chloride/Dextrose/ Sod Cl 1,000 ml @ 80 mls/hr [id number] IV 06/10/17 21:45 06/12/17 11:14 06/11/17 09:21 80 MLS/HR Amlodipine Besylate (Norvasc Tab) 10 mg DAILY PO 06/11/17 09:00 07/11/17 08:59 06/11/17 08:27 10 MG Aspirin (Ecotrin Tab) 81 mg DAILY PO 06/11/17 09:00 07/11/17 08:59 06/11/17 08:27 81 MG Calcitriol (Rocaltrol Cap) 0.25 mcg MoWeFr@0900 PO 06/12/17 09:00 07/12/17 08:59 Ferrous Sulfate (Feosol Tab) 325 mg BID PO 06/11/17 09:00 07/11/17 08:59 06/11/17 08:26 325 MG Furosemide (Lasix Tab) 40 mg DAILY PO 06/11/17 09:00 07/11/17 08:59 06/11/17 08:28 40 MG Hydralazine HCl (Apresoline Tab) 100 mg TID PO 06/11/17 09:00 07/11/17 08:59 06/11/17 08:27 100 MG Lactobacillus Acidophilus (Lactinex Granules Pack) 1 gm TIDM PO 06/11/17 07:30 07/11/17 07:29 Methadone HCl (Dolophine Tab) 2.5 mg BID PO 06/11/17 09:00 06/25/17 08:59 06/11/17 08:26 2.5 MG Prednisone (PredniSONE TAB) 20 mg TID PO 06/11/17 09:00 07/11/17 08:59 06/11/17 08:27 20 MG Simvastatin (Zocor Tab) 20 mg QPM PO 06/11/17 21:00 07/11/17 20:59 06/10/17 22:27 20 MG Tamsulosin HCl (Flomax Cap) 0.4 mg DAILY PO 06/11/17 09:00 07/11/17 08:59 06/11/17 08:26 0.4 MG Metoprolol Succinate (Toprol Xl Tab) 100 mg BID PO 06/11/17 09:00 07/11/17 08:59 06/11/17 08:28 100 MG Oxycodone HCl (Roxicodone Immediate Rel Tab) 5 mg Q4H PRN PO 06/10/17 22:00 06/24/17 21:59 06/11/17 03:16 5 MG Non-Formulary Medication (Non-Formulary Patient'S Own Med) 1 ea DAILY PO 06/11/17 09:00 07/11/17 08:59 06/11/17 08:28 1 EA Fentanyl (Duragesic Patch) 25 mcg Q3D TD 06/13/17 09:00 06/27/17 08:59 Miscellaneous (Fentanyl Patch Remove & Waste) 1 ea Q3D N/A 06/13/17 08:59 07/13/17 08:58 Miscellaneous Information (Check Fentanyl Patch Placement) 1 ea QS N/A 06/11/17 00:00 07/11/17 00:00 06/11/17 08:28 1 EA Cefepime HCl (Consult) 1 ea DAILY PRN N/A 06/10/17 22:20 07/10/17 22:19 Vancomycin HCl (Consult) 1 ea UD PRN N/A 06/10/17 22:30 07/10/17 22:29 Cefepime HCl 1000 mg/Syringe 11 ml @ 5.5 mls/min DAILY@2300 IV 06/11/17 23:00 06/19/17 23:01 Family History Cervical cancer Diabetes mellitus Heart disease Hypertension Myocardial infarction Pancreatic cancer Prostate cancer Negative for CKD/ESRD Social History Smoking Status: Never Smoker Drug Use: none Marital Status: single Housing Status: lives alone Occupation: retired Single, retired. Formerly worked for [employer]. Never a smoker. Review of Systems Constitutional: + fever, No chills, No sweats Respiratory: No cough, No shortness of breath Cardiovascular: No chest pain Abdomen: No pain, No nausea, No vomiting Neurologic: No weakness A complete review of systems was performed. Pertinent positives are noted above. All other systems are negative. Physical Exam Date Time Temp Pulse Resp B/P (MAP) Pulse Ox O2 Delivery O2 Flow Rate FiO2 06/11/17 08:00 Room Air 06/11/17 07:58 37.8 101 19 179/87 (117) 91 Room Air 06/11/17 04:02 Nasal Cannula 2.0 06/11/17 03:42 37.7 104 19 139/90 (106) 96 Room Air 06/11/17 00:02 Nasal Cannula 2.0 06/10/17 23:39 37.3 92 17 166/78 (107) 96 06/10/17 21:08 37.3 111 20 183/97 (125) 95 Nasal Cannula 2.0 06/10/17 21:08 Nasal Cannula 2.0 06/10/17 21:00 37.0 105 20 94 2.0 06/10/17 20:15 37.0 105 22 156/80 (105) 94 Nasal Cannula 2.0 06/10/17 19:45 Nasal Cannula 2.0 General Appearance: no apparent distress Head: normocephalic, atraumatic Eyes: PERRL, EOMI Neck: no adenopathy Respiratory/Chest: lungs clear, no respiratory distress Cardiovascular: regular rate, rhythm Abdomen/GI: normal bowel sounds, non tender, soft Extremities/Musculoskelatal: + pertinent finding (index finger and dorsum of left hand swollen. L upper arm AVF + bruit. Trace pretibial pitting edema) Neurologic/Psych: alert, oriented x 3 Laboratory Results Last 24 Hours Test 06/10/17 21:28 06/10/17 21:39 06/10/17 21:56 06/10/17 22:24 Bedside Glucose 47 mg/dl 43 mg/dl 81 mg/dl 123 mg/dl Test 06/10/17 22:54 06/10/17 23:36 06/11/17 03:13 06/11/17 05:44 Creatinine 4.62 mg/dl 4.65 mg/dl Est Creatinine Clear Calc Drug Dose 16.9 ml/min 16.8 ml/min Estimated GFR () 14.5 14.4 Estimated GFR (Non- 12.5 12.4 Bedside Glucose 149 mg/dl 179 mg/dl White Blood Count 7.09 K/uL Red Blood Count 3.10 M/uL Hemoglobin 8.5 g/dL Hematocrit 26.2 % Mean Corpuscular Volume 84.5 fL Mean Corpuscular Hemoglobin 27.4 pg Mean Corpuscular Hemoglobin Concent 32.4 g/dl Platelet Count 93 K/uL Mean Platelet Volume 9.8 fL Neutrophils (%) (Auto) 91.6 % Lymphocytes (%) (Auto) 3.9 % Monocytes (%) (Auto) 3.5 % Eosinophils (%) (Auto) 0.4 % Basophils (%) (Auto) 0.0 % Neutrophils # (Auto) 6.49 K/uL Lymphocytes # (Auto) 0.28 K/uL Monocytes # (Auto) 0.25 K/uL Eosinophils # (Auto) 0.03 K/uL Basophils # (Auto) 0.00 K/uL RDW Standard Deviation 57.8 fL RDW Coefficient of Variation 18.7 % Immature Granulocyte % (Auto) 0.6 % Immature Granulocyte # (Auto) 0.04 K/uL Nucleated RBC Absolute Count (auto) 0.02 K/uL Nucleated Red Blood Cells % 0.3 % Platelet Estimate DECREASED Basophilic Stippling 1+ Anisocytosis PRESENT Prothrombin Time 11.1 SECONDS Prothromb Time International Ratio 1.0 Sodium Level 140 mmol/L Potassium Level 3.5 mmol/L Chloride Level 103 mmol/L Carbon Dioxide Level 28 mmol/L Anion Gap 9.0 mmol/L Blood Urea Nitrogen 91 mg/dl BUN/Creatinine Ratio 19.7 Random Glucose 133 mg/dl Calcium Level 7.4 mg/dl Total Bilirubin 0.4 mg/dl Aspartate Amino Transf (AST/SGOT) 43 U/L Alanine Aminotransferase (ALT/SGPT) 35 U/L Alkaline Phosphatase 57 U/L C-Reactive Protein 11.20 mg/dl Total Protein 4.3 gm/dl Albumin 1.5 gm/dl Globulin 2.8 gm/dl Albumin/Globulin Ratio 0.5 Test 06/11/17 06:37 06/11/17 08:42 06/11/17 09:44 Bedside Glucose 146 mg/dl 159 mg/dl Impression (1) Cellulitis of left hand (2) Chronic kidney disease, stage V (very severe) (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 No acute indication for HD today. Will reassess in am -- Heplock IV -- Monitor serial PRP -- Protect L upper arm AVF HYPERTENSION: -- Continue current antihypertensive regimen. No change at present ID: -- Recommend dosing all medications for EGFR < 15 cc / min
[2017-06-11 11:34] VITALS: BP 165/84; PULSE 96; TEMP 37.5; O2SAT 92
[2017-06-11 15:02] VITALS: BP 173/83; PULSE 97; TEMP 36.9; O2SAT 94
[2017-06-11] MEDS ORDERED: CHECK FENTANYL PATCH PLACEMENT SCH (16:00)
--- NOTE | 2017-06-11 16:10 | Pharmacy Progress Note ---
Pharmacy Abx Initial Consult Date of Service Jun 11, 2017. Pharmacy Dosing Scope Date of Consult: 06/11/17 Consultation requested by: Dr. Asher Pharmacy is consulted to initiate Vancomycin IV dosing therapy, order appropriate labs and adjust drug dose/frequency. Subjective The patient is a 61 year old male admitted on Jun 10, 2017 at 19:59. Objective Height (Feet): 5 Height (Inches): 10.00 Weight (Kilograms): 87.100 Vital Signs (Past 12Hrs) Vital Signs Past 12 Hours Date Time Temp Pulse Resp B/P (MAP) Pulse Ox O2 Delivery O2 Flow Rate FiO2 06/11/17 15:02 36.9 97 18 173/83 (113) 94 Room Air 06/11/17 12:00 Room Air 06/11/17 11:34 37.5 96 20 165/84 (111) 92 Room Air 06/11/17 08:00 Room Air 06/11/17 07:58 37.8 101 19 179/87 (117) 91 Room Air 06/11/17 04:02 Nasal Cannula 2.0 Lab Results (24Hrs) Item Value Date Time Random Vancomycin Level 27.8 mcg/ml 06/11/17 1448 Laboratory Tests (24 Hours) Test 06/11/17 05:44 C-Reactive Protein 11.20 mg/dl (0-0.29) H Erythrocyte Sedimentation Rate 11 mm/hr (0-14) White Blood Count 7.09 K/uL (4.8-10.8) Red Blood Count 3.10 M/uL (4.7-6.1) L Hemoglobin 8.5 g/dL (14.0-18.0) L Hematocrit 26.2 % (42-52) L Mean Corpuscular Volume 84.5 fL (80-100) Mean Corpuscular Hemoglobin 27.4 pg (25-34) Mean Corpuscular Hemoglobin Concent 32.4 g/dl (32-36) Platelet Count 93 K/uL (130-400) L Mean Platelet Volume 9.8 fL (7.4-10.4) Neutrophils (%) (Auto) 91.6 % Lymphocytes (%) (Auto) 3.9 % Monocytes (%) (Auto) 3.5 % Eosinophils (%) (Auto) 0.4 % Basophils (%) (Auto) 0.0 % Neutrophils # (Auto) 6.49 K/uL (1.4-6.5) Lymphocytes # (Auto) 0.28 K/uL (1.2-3.4) L Monocytes # (Auto) 0.25 K/uL (0.11-0.59) Eosinophils # (Auto) 0.03 K/uL (0-0.5) Basophils # (Auto) 0.00 K/uL (0-0.2) Risk Factors for Resistance * Immunocompromised (chemotherapy) Assessment & Plan Assessment 61 year old male with Stage IV CKD, renal cell CA and basal cell CA. Plan Vancomycin for treatment of hand cellulitis s/p injury. Vancomycin IV * Loading dose: 1500 mg IV (17.4 mg/kg) x1 given at 01:30 early this AM. * Renal function: Scr = 4.65, Crcl = 16.8 today. * Hence a maintenance Vancomycin dose was not ordered. * Random level obtained 12 hrs after the dose = 27.8 at 1448 today. * Goal trough level for Cellulitis: 12 to 20 mcg/mL * Will re-dose with one-time doses of Vancomycin once level falls below 20 mcg/ ml due to poor renal function. * A random Vanco level has been ordered with AM labs tomorrow. Pharmacy will continue to follow and will adjust dose/frequency as necessary. Thank you.
[2017-06-11 19:28] VITALS: BP 175/91; PULSE 96; TEMP 37; O2SAT 95
[2017-06-11] MEDS: SIMVASTATIN 20 MG TAB PO SCH (20:06)
[2017-06-11] MEDS ORDERED: PHARMACY GLYCEMIC MGMT CONSULT PRN (20:30)
--- NOTE | 2017-06-11 20:41 | Pharmacy Progress Note ---
Glycemic Control Intl Consult Date of Service Jun 11, 2017. Scope Glycemic Pharmacist consulted by Dr Zepeda on 06/11/17 for glycemic control and to write orders per [facility] inpatient glycemic control protocol Objective Weight (Kilograms): 87.100 Accuchecks BSG (last 24hrs): Test 06/10/17 21:28 06/10/17 21:39 06/10/17 21:56 06/10/17 22:24 Bedside Glucose 47 mg/dl (70-99) 43 mg/dl (70-99) 81 mg/dl (70-99) 123 mg/dl (70-99) Test 06/10/17 23:36 06/11/17 03:13 06/11/17 05:44 06/11/17 06:37 Bedside Glucose 149 mg/dl (70-99) 179 mg/dl (70-99) 146 mg/dl (70-99) Random Glucose 133 mg/dl (70-99) Test 06/11/17 08:42 06/11/17 11:06 06/11/17 16:20 06/11/17 19:59 Bedside Glucose 159 mg/dl (70-99) 164 mg/dl (70-99) 259 mg/dl (70-99) 306 mg/dl (70-99) Laboratory Data (last 24hrs) Test 06/10/17 22:54 06/11/17 05:44 Creatinine 4.62 mg/dl 4.65 mg/dl Anion Gap 9.0 mmol/L BUN/Creatinine Ratio 19.7 Blood Urea Nitrogen 91 mg/dl Potassium Level 3.5 mmol/L Sodium Level 140 mmol/L White Blood Count 7.09 K/uL Red Blood Count 3.10 M/uL Hemoglobin 8.5 g/dL Hematocrit 26.2 % Mean Corpuscular Volume 84.5 fL Mean Corpuscular Hemoglobin 27.4 pg Mean Corpuscular Hemoglobin Concent 32.4 g/dl Platelet Count 93 K/uL Mean Platelet Volume 9.8 fL Neutrophils (%) (Auto) 91.6 % Lymphocytes (%) (Auto) 3.9 % Monocytes (%) (Auto) 3.5 % Eosinophils (%) (Auto) 0.4 % Basophils (%) (Auto) 0.0 % Neutrophils # (Auto) 6.49 K/uL Lymphocytes # (Auto) 0.28 K/uL Monocytes # (Auto) 0.25 K/uL Eosinophils # (Auto) 0.03 K/uL Basophils # (Auto) 0.00 K/uL Recent Pertinent Medications Outpatient Anti-diabetic Regimen: * Lantus 25 units Q PM * Novolog per sliding scale * Prednisone 20mg PO TID * A1c 6.4% 05/22/17 Risk Factors for Insulin Resistance: * Steroids: Prednisone 20mg PO TID * Infection: cellulitis; receiving Cefepime * Diet: ordered T2DM / AHA diet Assessment & Plan ASSESSMENT: 06/11/17 * Type 2 diabetic admitted for hand cellulitis; well controlled per recent A1c * He was initially hypoglycemic on admission however BSGs have since risen into the 300's - however no insulin has been given in the last 24 hrs * Will resume his home dose of Lantus as he is now ordered a diet and the same outpt dosage of prednisone. The out-pt Lantus dose is equivalent to a a little less than a "moderate stress" dose based upon his weight. He may ultimately require more, however he did refuse the HS dose of Prednisone tonight thus lessening insulin resistance overnight. Will titrate dose based upon BSG trend * Novolog doses will be based upon moderate-severe stress level at this time. * Additional BSG checks w/ SQ Novolog coverage may be warranted tonight to overcome established hyperglycemia * Of note, he required 80+ units of insulin when admitted 03/2017 while on a daily equivalent prednisone dose of ~100mg PLAN FOR INPATIENT GLYCEMIC CONTROL: * Lantus 25 units SQ Q HS * Novolog SQ ACHS and at 0000 and 0400 tonight * Correction factor of 20 mg/dl/unit * Carb ratio of 1 unit per 7 grams CHO consumed * Goal range of Low 120 mg/dL - High 150 mg/dL * Please note that the plan above was derived based on current level of insulin resistance and hospital stress. These recommendations are appropriate for inpatient admission only. Plan of care upon discharge will need to be reassessed to avoid potential outpatient hypo/hyperglycemia. Thank you.
[2017-06-11] MEDS ORDERED: INSULIN GLARGINE SOLOSTAR 100 UNITS/ML 3 ML PEN SC SCH (21:00)
[2017-06-11] MEDS: METHADONE HCL 10 MG TAB PO SCH (21:03)
[2017-06-11] MEDS: INSULIN ASPART 100 UNITS/ML 3 ML PEN SC SCH ×2 (21:04→23:40)
[2017-06-11] MEDS ORDERED: CEFEPIME IV 1,000 MG in SYRINGE 0 ML IV SCH (23:00)
[2017-06-12] VITALS (18 sets, daily range): BP systolic 145–189; BP diastolic 75–100; PULSE 73–95; TEMP 36.6–37; O2SAT 94–96; Ht 177.8 cm; Wt 85.0 kg
[2017-06-12] MEDS: INSULIN ASPART 100 UNITS/ML 3 ML PEN SC SCH ×5 (02:00→20:12)
[2017-06-12] MEDS: OXYCODONE HCL IR 5 MG TAB (IMMEDIATE RELEASE) PO PRN ×2 (05:04→17:30)
[2017-06-12 06:52] LABS: HEMATOCRIT 26.5 % (42-52); MEAN CELL VOLUME 84.4 fL (80-100); MEAN CORPUSCULAR HEMOGLOBIN 27.7 pg (25-34); MEAN CORPUSCULAR HGB CONC 32.8 g/dl (32-36); MEAN PLATELET VOLUME 9.7 fL (7.4-10.4); PLATELET COUNT 107 K/uL (130-400); RED BLOOD COUNT 3.14 M/uL (4.7-6.1); WHITE BLOOD COUNT 8.19 K/uL (4.8-10.8)
[2017-06-12 07:00] LABS: PROTHROMBIN TIME (PATIENT) 11.1 SECONDS (9.0-12.0)
[2017-06-12 07:28] LABS: ANISOCYTOSIS PRESENT; COMPLETE YES; DOHLE BODIES 1+; EOS % 0.7 %; IG% 0.5 %; LYMPH % 3.8 %; LYMPH ABS # 0.31 K/uL (1.2-3.4); MONO % 4.2 %; NEUT % 90.8 %; SCHISTOCYTES 1+; SPHEROCYTE 1+
[2017-06-12 07:39] LABS: ALB/GLOB RATIO 0.5 (0.9-2); BUN/CREATININE RATIO 18.5 (10-20); CALCIUM 7.2 mg/dl (8.5-10.1); CREATININE 5.32 mg/dl (0.60-1.40); POTASSIUM 3.5 mmol/L (3.5-5.1)
--- NOTE | 2017-06-12 07:40 | PROGRESS NOTE ---
DATE: 06/12/2017 SUBJECTIVE: A 61-year-old gentleman, consultation for left hand infection after a wound a week and a half ago. He is doing quite a bit better today. Pain and swelling have improved. Motion is improved but not back to normal. OBJECTIVE: VITAL SIGNS: Temperature 36.9. PHYSICAL EXAMINATION: Left hand reveals the swelling to be improved. Still has got quite a bit of swelling on the dorsal aspect of his index finger, over the proximal phalanx area. He can make about 50% fist. He is probably about 50% better compared to yesterday. The swelling in his hand is decreased. There is no real flexor tendon pain. LABORATORY DATA: White cell count 8.19. His sed rate was normal at 11. C-reactive protein elevated at 11.20. ASSESSMENT: A 61-year-old male with multiple comorbidities with left hand infection and cellulitis after a wound from a drill bit. He is probably 25-50% better today. No signs of pus or purulence or indication for surgical treatment. I do not think this will continue to respond to IV antibiotics and then oral antibiotics. He will probably need about 48 more hours of IV antibiotics which I would recommend and then probably 10 days of p.o. We will follow him daily. Any orthopedic questions can be directed to me at [phone].
[2017-06-12] MEDS: FUROSEMIDE 20 MG TAB PO SCH (08:12)
[2017-06-12] MEDS: TAMSULOSIN HCL 0.4 MG CAP PO SCH (08:13)
[2017-06-12] MEDS: ASPIRIN 81 MG ECTAB PO SCH (08:13)
[2017-06-12] MEDS: AMLODIPINE BESYLATE 5 MG TAB PO SCH (08:14)
[2017-06-12] MEDS: METOPROLOL SUCC 50MG EXT REL TAB PO SCH ×2 (08:14→20:03)
[2017-06-12] MEDS: CALCITRIOL 0.25 MCG CAP PO SCH (08:14)
[2017-06-12] MEDS: FERROUS SULFATE 325 MG TAB PO SCH ×2 (08:14→20:03)
[2017-06-12] MEDS: LACTOBACILLUS ACIDOPHILUS 1 GM PACK PO SCH ×3 (08:15→16:45)
[2017-06-12] MEDS: CHECK FENTANYL PATCH PLACEMENT SCH ×3 (08:15→23:18)
[2017-06-12] MEDS: CABOMETYX PO SCH (08:15)
[2017-06-12] MEDS: METHADONE HCL 10 MG TAB PO SCH ×2 (08:24→21:10)
--- NOTE | 2017-06-12 10:50 | Nephrology Progress Note ---
Nephrology Progress Note Date of Service Jun 12, 2017. Chief Complaint Follow-up for end-stage renal disease. Roland Causey was seen and examined. Pain and swelling in left hand and upper extremity started to improved. No fever chills overnight. White cell count normal. Blood pressure slightly elevated.. Appetite has been poor. Denies shortness of breath. Voiding normally. Review of Systems A complete review of systems was performed. Pertinent positives are noted above. All other systems are negative. Vital Signs Last 8 Hrs Date Time Temp Pulse Resp B/P (MAP) Pulse Ox O2 Delivery O2 Flow Rate FiO2 06/12/17 08:00 Room Air 06/12/17 07:15 36.8 90 20 173/81 (111) 94 06/12/17 04:23 36.9 92 20 158/75 (102) 95 Room Air 06/12/17 04:02 Room Air Last Recorded Weight Weight (Kilograms): 82.600 Physical Exam GENERAL: middle aged male, , AAA x 3, pleasant, face puffy, ill-appearing, not in any distress. NECK: Supple, no JVD. RESPIRATORY: Normal breathing efforts, no accessory muscle use, clear to auscultation bilaterally, no wheezes or rales. CARDIOVASCULAR: S1, S2 normal, rate rhythm regular. EXTREMITY: 2 + B/L lower extremity edema, left hand swollen, erythematous, left brachiocephalic AV fistula with good thrill and bruit. NEURO: speech fluent. PSYCHIATRY: Normal mood and judgment Family History Cervical cancer Diabetes mellitus Heart disease Hypertension Myocardial infarction Pancreatic cancer Prostate cancer Negative for CKD/ESRD Social History Drug Use: none Marital Status: single Housing Status: lives alone Occupation: retired Single, retired. Formerly worked for [employer]. Never a smoker. Laboratory Results Past 24 Hours 06/12/17 06:30 Red Blood Count 3.14, Mean Corpuscular Volume 84.4, Mean Corpuscular Hemoglobin 27.7, Mean Corpuscular Hemoglobin Concent 32.8, Mean Platelet Volume 9.7, Neutrophils (%) (Auto) 90.8, Lymphocytes (%) (Auto) 3.8, Monocytes (%) (Auto) 4.2, Eosinophils (%) (Auto) 0.7, Basophils (%) (Auto) 0.0, Neutrophils # (Auto) 7.44, Lymphocytes # (Auto) 0.31, Monocytes # (Auto) 0.34, Eosinophils # (Auto) 0.06, Basophils # (Auto) 0.00 06/12/17 06:30 Test 06/11/17 11:06 06/11/17 14:48 06/11/17 16:20 06/11/17 19:59 Bedside Glucose 164 mg/dl (70-99) 259 mg/dl (70-99) 306 mg/dl (70-99) Random Vancomycin Level 27.8 mcg/ml Test 06/11/17 23:35 06/12/17 02:12 06/12/17 04:17 06/12/17 04:32 Bedside Glucose 271 mg/dl (70-99) 123 mg/dl (70-99) 69 mg/dl (70-99) 97 mg/dl (70-99) Test 06/12/17 05:02 06/12/17 06:19 06/12/17 06:30 06/12/17 10:15 Bedside Glucose 128 mg/dl (70-99) 169 mg/dl (70-99) White Blood Count 8.19 K/uL (4.8-10.8) Red Blood Count 3.14 M/uL (4.7-6.1) Hemoglobin 8.7 g/dL (14.0-18.0) Hematocrit 26.5 % (42-52) Mean Corpuscular Volume 84.4 fL (80-100) Mean Corpuscular Hemoglobin 27.7 pg (25-34) Mean Corpuscular Hemoglobin Concent 32.8 g/dl (32-36) Platelet Count 107 K/uL (130-400) Mean Platelet Volume 9.7 fL (7.4-10.4) Neutrophils (%) (Auto) 90.8 % Lymphocytes (%) (Auto) 3.8 % Monocytes (%) (Auto) 4.2 % Eosinophils (%) (Auto) 0.7 % Basophils (%) (Auto) 0.0 % Neutrophils # (Auto) 7.44 K/uL (1.4-6.5) Lymphocytes # (Auto) 0.31 K/uL (1.2-3.4) Monocytes # (Auto) 0.34 K/uL (0.11-0.59) Eosinophils # (Auto) 0.06 K/uL (0-0.5) Basophils # (Auto) 0.00 K/uL (0-0.2) RDW Standard Deviation 57.9 fL (36.4-46.3) RDW Coefficient of Variation 18.7 % (11.5-14.5) Immature Granulocyte % (Auto) 0.5 % Immature Granulocyte # (Auto) 0.04 K/uL (0.00-0.02) Nucleated RBC Absolute Count (auto) 0.02 K/uL (0-0) Nucleated Red Blood Cells % 0.2 % Dohle Bodies 1+ Anisocytosis PRESENT Spherocytes 1+ Schistocytes 1+ Prothrombin Time 11.1 SECONDS (9.0-12.0) Prothromb Time International Ratio 1.0 (0.9-1.1) Anion Gap 10.0 mmol/L (3-11) Est Creatinine Clear Calc Drug Dose 14.7 ml/min Estimated GFR () 12.3 Estimated GFR (Non- 10.6 BUN/Creatinine Ratio 18.5 (10-20) Calcium Level 7.2 mg/dl (8.5-10.1) Total Bilirubin 0.3 mg/dl (0.2-1) Aspartate Amino Transf (AST/SGOT) 38 U/L (15-37) Alanine Aminotransferase (ALT/SGPT) 33 U/L (12-78) Alkaline Phosphatase 49 U/L (45-117) Total Protein 4.2 gm/dl (6.4-8.2) Albumin 1.4 gm/dl (3.4-5.0) Globulin 2.8 gm/dl (2.5-4.0) Albumin/Globulin Ratio 0.5 (0.9-2) Random Vancomycin Level 20.5 mcg/ml Allergies Coded Allergies: Iodinated Diagnostic Agents (Verified Allergy, Unknown, oil based, severe headaches, 04/28/17) EVENT OCCURED IN 1971, PT STATES HE HAS HAD 3 DIFFERENT WATER BASED IVP DYES WITH NO ISSUE Medications Current Inpatient Medications Medications (Trade) Dose Ordered Sig/Edward Route Start Time Stop Time Status Last Admin Dose Admin Glucose (Glucose 40% Gel) 15-30 GRAMS 15 GRAMS... UD PRN PO 06/10/17 20:15 07/10/17 20:14 06/10/17 21:40 30 GM Glucose (Glucose Chew Tab) 4-8 Tablets 4 Tabl... UD PRN PO 06/10/17 20:15 07/10/17 20:14 06/12/17 04:05 8 TABS Dextrose (Dextrose 50% 50ML Syringe) 25-50ML OF 50% DW IV FOR... UD PRN IV 06/10/17 20:15 07/10/17 20:14 Glucagon (Glucagon Inj) 1 mg UD PRN SQ 06/10/17 20:15 07/10/17 20:14 Acetaminophen (Tylenol Tab) 650 mg Q4H PRN PO 06/10/17 20:15 07/10/17 20:14 06/10/17 21:22 650 MG Al Hydrox/Mg Hydrox/Simethicone (Maalox Max Susp) 15 ml Q4H PRN PO 06/10/17 20:15 07/10/17 20:14 Magnesium Hydroxide (Milk Of Magnesia Susp) 30 ml Q12H PRN PO 06/10/17 20:15 07/10/17 20:14 Ondansetron HCl (Zofran Inj) 4 mg Q6H PRN IV 06/10/17 20:15 07/10/17 20:14 Polyethylene (Miralax Powder Packet) 17 gm DAILY PRN PO 06/10/17 20:15 07/10/17 20:14 Amlodipine Besylate (Norvasc Tab) 10 mg DAILY PO 06/11/17 09:00 07/11/17 08:59 06/12/17 08:14 10 MG Aspirin (Ecotrin Tab) 81 mg DAILY PO 06/11/17 09:00 07/11/17 08:59 06/12/17 08:13 81 MG Calcitriol (Rocaltrol Cap) 0.25 mcg MoWeFr@0900 PO 06/12/17 09:00 07/12/17 08:59 06/12/17 08:14 0.25 MCG Ferrous Sulfate (Feosol Tab) 325 mg BID PO 06/11/17 09:00 07/11/17 08:59 06/12/17 08:14 325 MG Furosemide (Lasix Tab) 40 mg DAILY PO 06/11/17 09:00 07/11/17 08:59 06/12/17 08:12 40 MG Hydralazine HCl (Apresoline Tab) 100 mg TID PO 06/11/17 09:00 07/11/17 08:59 06/12/17 08:12 100 MG Lactobacillus Acidophilus (Lactinex Granules Pack) 1 gm TIDM PO 06/11/17 07:30 07/11/17 07:29 Prednisone (PredniSONE TAB) 20 mg TID PO 06/11/17 09:00 07/11/17 08:59 06/12/17 08:16 20 MG Simvastatin (Zocor Tab) 20 mg QPM PO 06/11/17 21:00 07/11/17 20:59 06/11/17 20:06 20 MG Tamsulosin HCl (Flomax Cap) 0.4 mg DAILY PO 06/11/17 09:00 07/11/17 08:59 06/12/17 08:13 0.4 MG Metoprolol Succinate (Toprol Xl Tab) 100 mg BID PO 06/11/17 09:00 07/11/17 08:59 06/12/17 08:14 100 MG Non-Formulary Medication (Non-Formulary Patient'S Own Med) 1 ea DAILY PO 06/11/17 09:00 07/11/17 08:59 06/12/17 08:15 1 EA Fentanyl (Duragesic Patch) 25 mcg Q3D TD 06/13/17 09:00 06/27/17 08:59 Miscellaneous (Fentanyl Patch Remove & Waste) 1 ea Q3D N/A 06/13/17 08:59 07/13/17 08:58 Miscellaneous Information (Check Fentanyl Patch Placement) 1 ea QS N/A 06/11/17 00:00 07/11/17 00:00 06/12/17 08:15 1 EA Cefepime HCl (Consult) 1 ea DAILY PRN N/A 06/10/17 22:20 07/10/17 22:19 Vancomycin HCl (Consult) 1 ea UD PRN N/A 06/10/17 22:30 07/10/17 22:29 Cefepime HCl 1000 mg/Syringe 11 ml @ 5.5 mls/min DAILY@2300 IV 06/11/17 23:00 06/19/17 23:01 06/11/17 23:40 5.5 MLS/MIN Methadone HCl (Dolophine Tab) 10 mg BID PO 06/11/17 21:00 06/25/17 20:59 06/12/17 08:24 10 MG Oxycodone HCl (Roxicodone Immediate Rel Tab) 10 mg QID PRN PO 06/11/17 16:30 06/24/17 21:59 06/12/17 05:04 10 MG Miscellaneous Information (Consult Glycemic Management Pharmacy) 1 ea UD PRN N/A 06/11/17 20:30 07/11/17 20:29 Insulin Glargine (Lantus Solostar Pen) 25 units HS SC 06/11/17 21:00 07/11/17 20:59 06/11/17 21:03 12 UNITS Insulin Aspart (novoLOG ASPART) SLIDING SCALE ACHS SC 06/11/17 21:00 07/11/17 20:59 06/12/17 08:20 6 UNITS Heparin Sodium (Porcine) (Heparin 100 Unit/ml 5ml Flush) 5 ml PRN PRN IV 06/12/17 01:15 07/12/17 01:14 Iron Sucrose 200 mg/Syringe 10 ml @ 0 mls/min TODAY@1200 IV 06/12/17 12:00 06/12/17 23:59 Epoetin Mohsen (Procrit Inj) 20,000 units TODAY@1200 IV 06/12/17 12:00 06/12/17 18:00 Enteral Nutritional Formula (Boost Glucose Control) 1 can TIDM PO 06/12/17 11:30 07/12/17 11:29 Iron Sucrose 200 mg/Sodium Chloride 110 ml @ 220 mls/hr Q2D@1200 IV 06/14/17 12:00 06/20/17 12:29 Impression (1) Cellulitis of left hand (2) Chronic kidney disease, stage V (very severe) (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 [place] under care of Dr. Mora --the Continue current antihypertensive regimen. No change at present
[2017-06-12] MEDS ORDERED: BOOST GLUCOSE CONTROL PO SCH (11:30)
[2017-06-12] MEDS ORDERED: IRON SUCROSE INJ 200 MG in SYRINGE 0 ML IV SCH (12:00)
[2017-06-12] MEDS ORDERED: EPOETIN ALFA 20,000 UNITS/ML VIAL IV SCH (12:00)
--- NOTE | 2017-06-12 12:07 | Pharmacy Progress Note ---
Pharmacy Antibiotic Prog Note Date of Service Jun 12, 2017. Subjective The patient is currently receiving vancomycin and cefepime for hand cellulitis The patient is currently on day # 2 of IV therapy. Objective Height (Feet): 5 Height (Inches): 10.00 Weight (Kilograms): 82.600 Levels: Item Value Date Time Random Vancomycin Level 20.5 mcg/ml 06/12/17 0630 Lab Results (24hrs): Test 06/11/17 14:48 06/12/17 05:02 06/12/17 06:19 06/12/17 06:30 Random Vancomycin Level 27.8 mcg/ml 20.5 mcg/ml Bedside Glucose 128 mg/dl (70-99) 169 mg/dl (70-99) White Blood Count 8.19 K/uL (4.8-10.8) Red Blood Count 3.14 M/uL (4.7-6.1) Hemoglobin 8.7 g/dL (14.0-18.0) Hematocrit 26.5 % (42-52) Mean Corpuscular Volume 84.4 fL (80-100) Mean Corpuscular Hemoglobin 27.7 pg (25-34) Mean Corpuscular Hemoglobin Concent 32.8 g/dl (32-36) Platelet Count 107 K/uL (130-400) Mean Platelet Volume 9.7 fL (7.4-10.4) Neutrophils (%) (Auto) 90.8 % Lymphocytes (%) (Auto) 3.8 % Monocytes (%) (Auto) 4.2 % Eosinophils (%) (Auto) 0.7 % Basophils (%) (Auto) 0.0 % Neutrophils # (Auto) 7.44 K/uL (1.4-6.5) Lymphocytes # (Auto) 0.31 K/uL (1.2-3.4) Monocytes # (Auto) 0.34 K/uL (0.11-0.59) Eosinophils # (Auto) 0.06 K/uL (0-0.5) Basophils # (Auto) 0.00 K/uL (0-0.2) RDW Standard Deviation 57.9 fL (36.4-46.3) RDW Coefficient of Variation 18.7 % (11.5-14.5) Immature Granulocyte % (Auto) 0.5 % Immature Granulocyte # (Auto) 0.04 K/uL (0.00-0.02) Nucleated RBC Absolute Count (auto) 0.02 K/uL (0-0) Nucleated Red Blood Cells % 0.2 % Dohle Bodies 1+ Anisocytosis PRESENT Spherocytes 1+ Schistocytes 1+ Prothrombin Time 11.1 SECONDS (9.0-12.0) Prothromb Time International Ratio 1.0 (0.9-1.1) Sodium Level 140 mmol/L (136-145) Potassium Level 3.5 mmol/L (3.5-5.1) Chloride Level 104 mmol/L (98-107) Carbon Dioxide Level 26 mmol/L (21-32) Anion Gap 10.0 mmol/L (3-11) Blood Urea Nitrogen 99 mg/dl (7-18) Creatinine 5.32 mg/dl (0.60-1.40) Est Creatinine Clear Calc Drug Dose 14.7 ml/min Estimated GFR () 12.3 Estimated GFR (Non- 10.6 BUN/Creatinine Ratio 18.5 (10-20) Random Glucose 151 mg/dl (70-99) Calcium Level 7.2 mg/dl (8.5-10.1) Phosphorus Level 4.6 mg/dl (2.5-4.9) Total Bilirubin 0.3 mg/dl (0.2-1) Aspartate Amino Transf (AST/SGOT) 38 U/L (15-37) Alanine Aminotransferase (ALT/SGPT) 33 U/L (12-78) Alkaline Phosphatase 49 U/L (45-117) Total Protein 4.2 gm/dl (6.4-8.2) Albumin 1.4 gm/dl (3.4-5.0) Globulin 2.8 gm/dl (2.5-4.0) Albumin/Globulin Ratio 0.5 (0.9-2) Assessment & Plan Patient on vancomycin and cefepime for cellulitis s/p injury. Vancomycin: * Random level this am was therapeutic at ~20 mcg/ml * Per nephrology patient to have dialysis today, estimated ~30% removal of vancomycin * Will redose vancomycin after dialysis today with vancomycin 1250 mg (~15 mg/kg ) x 1 to maintain estimated peak ~30 mcg/ml * Will order a random level in the am to assist with further dosing; unsure if future dialysis schedule Cefepime: * 1 gm iv q 24 hrs ; per note patient to continue with HD therefore will adjust dose based upon HD, will change to 500 mg iv q 24 hrs Pharmacy will continue to follow and will adjust dose/frequency as necessary. Thank you. Pharmacy will continue to follow and will adjust dose/frequency as necessary. Thank you
[2017-06-12] MEDS ORDERED: NURSING DECISION MEDICATION ORDER SCH (12:30)
--- NOTE | 2017-06-12 13:44 | Pharmacy Progress Note ---
Glycemic Control Progress Note Date of Service Jun 12, 2017. Scope Glycemic Pharmacist consulted for glycemic control to write orders per [facility] inpatient glycemic control protocol. Objective Accuchecks BSG (last 24hrs): Test 06/11/17 16:20 06/11/17 19:59 06/11/17 23:35 06/12/17 02:12 Bedside Glucose 259 mg/dl (70-99) 306 mg/dl (70-99) 271 mg/dl (70-99) 123 mg/dl (70-99) Test 06/12/17 04:17 06/12/17 04:32 06/12/17 05:02 06/12/17 06:19 Bedside Glucose 69 mg/dl (70-99) 97 mg/dl (70-99) 128 mg/dl (70-99) 169 mg/dl (70-99) Test 06/12/17 06:30 Random Glucose 151 mg/dl (70-99) Recent Pertinent Medications The patient is currently receiving: * Basal insulin: Lantus 25 units every 24 hours in the evening ( patient admits to only taking 16 units at home and that produced significant hypoglycemia prior to admission) * Correctional Insulin: Novolog Correction per scale ACHS Goal Range: Low 120 mg/dL - High 150 mg/dL Correction Factor: 20 mg/dL/unit * Prandial insulin: Per carb ratio of 1 unit per 7 grams CHO consumed Outpatient Anti-Diabetic Meds Lantus 25 units qPM plus Novolog per sliding scale Assessment & Plan ASSESSMENT: * See progress note from 06/12/17 for more background info, in short: * Pt receiving SQ basal bolus insulin regimen for hyperglycemia secondary to baseline DM (outpatient regimen on hold), infection (hand cellulitis on cefepime and vancomycin), and starting hemodialysis today. * Patient is currently receiving an average of 27 units of insulin per day * 12 units of basal insulin * 15 units of prandial/correctional insulin * BSGs ranging 37 - 306 mg/dl over the past 24hrs * Changes needed to insulin regimen: * AM Fasting BSG = 169 mg/dl?. This is slightly above goal range for patient based on inpatient targets and co-morbidities. This does not reflect a true fasting blood sugar. Around 4 am the patient's blood sugar was 37 mg/dL (per nursing notes), and patient was given glucose tabs and a snack. Since patient received 16 units of Lantus two days ago and then 12 units last night, only 5 units of Lantus will be ordered this evening (half of the previous dose) as the patient had significant hypoglycemia last night. * Post-prandial BSGs cannot be evaluated right now. The lunch blood sugar was much lower than the breakfast - therefore loosened parameters for Novolog. * Total daily dose is currently unknown. Patient will start hemodialysis today so expect insulin sensitivity to increase significantly. PLAN FOR INPATIENT GLYCEMIC CONTROL: * DECREASING Lantus to 5 units SQ * LOOSENING correction factor to 35 mg/dl/unit * LOOSENING carb ratio to 1 unit per 12 grams CHO consumed * Continuing goal range to Low 110 mg/dL - High 140 mg/dL Thank you.
[2017-06-12] MEDS ORDERED: VANCOMYCIN INJ 1,250 MG in SODIUM CHLORIDE 0.9% 250ML 250 ML IV ONE (16:00)
[2017-06-12] MEDS ORDERED: DIPHTHERIA/TETANUS/PERTUSSIS 0.5 ML SYR/VIAL IM. ONE (16:45)
--- NOTE | 2017-06-12 16:48 | Medical Student: [facility] ---
Med Student Progress Note Date of Service Jun 12, 2017. Subjective Pt evaluation today including: conversation w/ patient, physical exam, chart review, lab review, review of studies, review of inpatient medication list Pain: Controlled Voiding: no voiding problems 61 year old male with metastatic RCC and T2DM presenting with cellulitis of the left hand following puncture injury from drill bit. Feels as though he is improving. He is able to move hand more than before and pain and swelling have decreased. Ortho has seen patient and agrees that continueing IV antibiotics is the best course of action and that surgerical debridement of possible tenosynovitis is not indicated at this time. Blood sugar control has been an issue during hospitalization. He had a blood sugar of 26 on arrival. Blood sugar had dropped into the 30's last night. He has been given a stress dose of 60mg of prednisone each of the last three days which is an increase from the 30mg he is taking at home. Nephrology has seen him and started dialysis today. Creatinine has been as high as 5.3 from a baseline of 3.5, and he has been hypocalcemic and hypokalemic. Review of Systems Constitutional: No fever, No chills Respiratory: No cough, No shortness of breath Cardiac: No chest pain Abdomen: No pain, No nausea, No vomiting Male : No dysuria Objective Vital Signs Date Time Temp Pulse Resp B/P (MAP) Pulse Ox O2 Delivery O2 Flow Rate FiO2 06/12/17 12:00 Room Air 06/12/17 11:14 36.7 86 20 170/81 (110) 95 Room Air 06/12/17 08:00 Room Air 06/12/17 07:15 36.8 90 20 173/81 (111) 94 06/12/17 04:23 36.9 92 20 158/75 (102) 95 Room Air 06/12/17 04:02 Room Air 06/12/17 00:02 Room Air 06/12/17 00:01 37.0 90 21 173/82 (112) 94 Room Air 06/11/17 20:00 Room Air 06/11/17 19:28 37.0 96 20 175/91 (119) 95 Room Air 06/11/17 16:00 Room Air 06/11/17 15:02 36.9 97 18 173/83 (113) 94 Room Air Physical Exam General Appearance: WD/WN, no apparent distress, + obese Eyes: bilateral eyes normal inspection, bilateral eyes EOMI Respiratory/Chest: chest non-tender, lungs clear, normal breath sounds, no respiratory distress, no accessory muscle use Cardiovascular: regular rate, rhythm, no edema, no murmur Abdomen: normal bowel sounds, non tender, soft Extremities: normal inspection, no pedal edema, no calf tenderness Neurologic/Psychiatric: alert, normal mood/affect, oriented x 3 Skin: warm/dry, + rash (Left hand is swollen, red, and warm to the touch. There are lacerations to the left index finger on lateral DIP joint, ring finger above DIP joint, lateral dorsum of the hand. The laceration on the index finger and on dorsum of hand have black eschar. Swelling and redness has regressed about three inches from marked line from day 1 to about 1 inch past the wrist. Swelling and redness is predominantly located on dorsum of hand. Able to flex fingers, but causes pain. Box Feeder strength decreased on left. Mild to moderate pain to palpation over both sides of fingers and dorsum of hand.) Laboratory Results Last 24 Hours Test 06/11/17 14:48 06/11/17 16:20 06/11/17 19:59 06/11/17 23:35 Random Vancomycin Level 27.8 mcg/ml Bedside Glucose 259 mg/dl 306 mg/dl 271 mg/dl Test 06/12/17 02:12 06/12/17 04:03 06/12/17 04:17 06/12/17 04:32 Bedside Glucose 123 mg/dl 39 mg/dl 69 mg/dl 97 mg/dl Test 06/12/17 05:02 06/12/17 06:19 06/12/17 06:30 06/12/17 11:13 Bedside Glucose 128 mg/dl 169 mg/dl 114 mg/dl White Blood Count 8.19 K/uL Red Blood Count 3.14 M/uL Hemoglobin 8.7 g/dL Hematocrit 26.5 % Mean Corpuscular Volume 84.4 fL Mean Corpuscular Hemoglobin 27.7 pg Mean Corpuscular Hemoglobin Concent 32.8 g/dl Platelet Count 107 K/uL Mean Platelet Volume 9.7 fL Neutrophils (%) (Auto) 90.8 % Lymphocytes (%) (Auto) 3.8 % Monocytes (%) (Auto) 4.2 % Eosinophils (%) (Auto) 0.7 % Basophils (%) (Auto) 0.0 % Neutrophils # (Auto) 7.44 K/uL Lymphocytes # (Auto) 0.31 K/uL Monocytes # (Auto) 0.34 K/uL Eosinophils # (Auto) 0.06 K/uL Basophils # (Auto) 0.00 K/uL RDW Standard Deviation 57.9 fL RDW Coefficient of Variation 18.7 % Immature Granulocyte % (Auto) 0.5 % Immature Granulocyte # (Auto) 0.04 K/uL Nucleated RBC Absolute Count (auto) 0.02 K/uL Nucleated Red Blood Cells % 0.2 % Dohle Bodies 1+ Anisocytosis PRESENT Spherocytes 1+ Schistocytes 1+ Prothrombin Time 11.1 SECONDS Prothromb Time International Ratio 1.0 Sodium Level 140 mmol/L Potassium Level 3.5 mmol/L Chloride Level 104 mmol/L Carbon Dioxide Level 26 mmol/L Anion Gap 10.0 mmol/L Blood Urea Nitrogen 99 mg/dl Creatinine 5.32 mg/dl Est Creatinine Clear Calc Drug Dose 14.7 ml/min Estimated GFR () 12.3 Estimated GFR (Non- 10.6 BUN/Creatinine Ratio 18.5 Random Glucose 151 mg/dl Calcium Level 7.2 mg/dl Phosphorus Level 4.6 mg/dl Total Bilirubin 0.3 mg/dl Aspartate Amino Transf (AST/SGOT) 38 U/L Alanine Aminotransferase (ALT/SGPT) 33 U/L Alkaline Phosphatase 49 U/L Total Protein 4.2 gm/dl Albumin 1.4 gm/dl Globulin 2.8 gm/dl Albumin/Globulin Ratio 0.5 Random Vancomycin Level 20.5 mcg/ml Medications Reported Home Medications Medications Dose Route/Sig Max Daily Dose Days Date Category Cabometyx (Cabozantinib S-Malate) 60 Mg Tab 1 Tab PO DAILY 30 06/10/17 Rx Furosemide 20 Mg Tab 40 Mg PO DIRECTED 04/28/17 Reported Dolophine (Methadone HCl) 5 Mg Tab 2.5 Mg PO BID 04/28/17 Reported Oxycodone Hcl 10 Mg Tab 10 Mg PO Q6 PRN 04/28/17 Reported Fentanyl 75 Mcg/Hr Dis 25 Patch TOP [id number] 04/28/17 Reported Apresoline (Hydralazine Hcl) 100 Mg Tab 100 Mg PO TID 04/28/17 Reported Lantus (Insulin Glargine) 100 Unit/Ml Inj 25 Units SC QPM 04/28/17 Reported Aspirin Ec (Aspirin) 81 Mg Tab 81 Mg PO DAILY 04/28/17 Reported Flomax (Tamsulosin Hcl) 0.4 Mg Cap 0.4 Mg PO DAILY 04/28/17 Reported Prednisone 20 Mg Tab 20 Mg PO TID 04/28/17 Reported Metoprolol Succinate ER (Metoprolol Succinate) 100 Mg Tabcr 100 Mg PO BID 04/14/17 Rx Novolog Flexpen (Insulin Aspart) 100 Units/Ml Inj 0 Units SC ACHS 30 04/14/17 Rx Miralax (Polyethylene) 17 Gm Pow 17 Gm PO DAILY PRN 10 03/22/17 Rx Lactinex Granules (Lactobacillus Acidophilus) 1 Gm Pack 1 Gm PO TIDM 10 03/22/17 Rx Calcitriol 0.25 Mcg Cap 0.25 Mcg PO [id number] 03/09/17 Reported Ferrous Sulfate 325 Mg Tab 325 Mg PO BID 03/09/17 Reported Norvasc (Amlodipine Besylate) 10 Mg Tab 10 Mg PO DAILY 11/05/15 Reported Zocor (Simvastatin) 20 Mg Tab 20 Mg PO QPM 09/10/15 Reported Current Inpatient Medications Medications (Trade) Dose Ordered Sig/Edward Route Start Time Stop Time Status Last Admin Dose Admin Glucose (Glucose 40% Gel) 15-30 GRAMS 15 GRAMS... UD PRN PO 06/10/17 20:15 07/10/17 20:14 06/10/17 21:40 30 GM Glucose (Glucose Chew Tab) 4-8 Tablets 4 Tabl... UD PRN PO 06/10/17 20:15 07/10/17 20:14 06/12/17 04:05 8 TABS Dextrose (Dextrose 50% 50ML Syringe) 25-50ML OF 50% DW IV FOR... UD PRN IV 06/10/17 20:15 07/10/17 20:14 Glucagon (Glucagon Inj) 1 mg UD PRN SQ 06/10/17 20:15 07/10/17 20:14 Acetaminophen (Tylenol Tab) 650 mg Q4H PRN PO 06/10/17 20:15 07/10/17 20:14 06/10/17 21:22 650 MG Al Hydrox/Mg Hydrox/Simethicone (Maalox Max Susp) 15 ml Q4H PRN PO 06/10/17 20:15 07/10/17 20:14 Magnesium Hydroxide (Milk Of Magnesia Susp) 30 ml Q12H PRN PO 06/10/17 20:15 07/10/17 20:14 Ondansetron HCl (Zofran Inj) 4 mg Q6H PRN IV 06/10/17 20:15 07/10/17 20:14 Polyethylene (Miralax Powder Packet) 17 gm DAILY PRN PO 06/10/17 20:15 07/10/17 20:14 Amlodipine Besylate (Norvasc Tab) 10 mg DAILY PO 06/11/17 09:00 07/11/17 08:59 06/12/17 08:14 10 MG Aspirin (Ecotrin Tab) 81 mg DAILY PO 06/11/17 09:00 07/11/17 08:59 06/12/17 08:13 81 MG Calcitriol (Rocaltrol Cap) 0.25 mcg MoWeFr@0900 PO 06/12/17 09:00 07/12/17 08:59 06/12/17 08:14 0.25 MCG Ferrous Sulfate (Feosol Tab) 325 mg BID PO 06/11/17 09:00 07/11/17 08:59 06/12/17 08:14 325 MG Furosemide (Lasix Tab) 40 mg DAILY PO 06/11/17 09:00 07/11/17 08:59 06/12/17 08:12 40 MG Hydralazine HCl (Apresoline Tab) 100 mg TID PO 06/11/17 09:00 07/11/17 08:59 06/12/17 14:52 100 MG Lactobacillus Acidophilus (Lactinex Granules Pack) 1 gm TIDM PO 06/11/17 07:30 07/11/17 07:29 Simvastatin (Zocor Tab) 20 mg QPM PO 06/11/17 21:00 07/11/17 20:59 06/11/17 20:06 20 MG Tamsulosin HCl (Flomax Cap) 0.4 mg DAILY PO 06/11/17 09:00 07/11/17 08:59 06/12/17 08:13 0.4 MG Metoprolol Succinate (Toprol Xl Tab) 100 mg BID PO 06/11/17 09:00 07/11/17 08:59 06/12/17 08:14 100 MG Fentanyl (Duragesic Patch) 25 mcg Q3D TD 06/13/17 09:00 06/27/17 08:59 Miscellaneous (Fentanyl Patch Remove & Waste) 1 ea Q3D N/A 06/13/17 08:59 07/13/17 08:58 Miscellaneous Information (Check Fentanyl Patch Placement) 1 ea QS N/A 06/11/17 00:00 07/11/17 00:00 06/12/17 08:15 1 EA Cefepime HCl (Consult) 1 ea DAILY PRN N/A 06/10/17 22:20 07/10/17 22:19 Vancomycin HCl (Consult) 1 ea UD PRN N/A 06/10/17 22:30 07/10/17 22:29 Methadone HCl (Dolophine Tab) 10 mg BID PO 06/11/17 21:00 06/25/17 20:59 06/12/17 08:24 10 MG Oxycodone HCl (Roxicodone Immediate Rel Tab) 10 mg QID PRN PO 06/11/17 16:30 06/24/17 21:59 06/12/17 05:04 10 MG Miscellaneous Information (Consult Glycemic Management Pharmacy) 1 ea UD PRN N/A 06/11/17 20:30 07/11/17 20:29 Insulin Aspart (novoLOG ASPART) SLIDING SCALE ACHS SC 06/11/17 21:00 07/11/17 20:59 06/12/17 12:15 4 UNITS Heparin Sodium (Porcine) (Heparin 100 Unit/ml 5ml Flush) 5 ml PRN PRN IV 06/12/17 01:15 07/12/17 01:14 Iron Sucrose 200 mg/Syringe 10 ml @ 0 mls/min TODAY@1200 IV 06/12/17 12:00 06/12/17 23:59 06/12/17 13:06 10 MLS/MIN Epoetin Mohsen (Procrit Inj) 20,000 units TODAY@1200 IV 06/12/17 12:00 06/12/17 18:00 Enteral Nutritional Formula (Boost Glucose Control) 1 can TIDM PO 06/12/17 11:30 07/12/17 11:29 Iron Sucrose 200 mg/Sodium Chloride 110 ml @ 220 mls/hr Q2D@1200 IV 06/14/17 12:00 06/20/17 12:29 Vancomycin HCl 1250 mg/Sodium Chloride 275 ml @ 125 mls/hr TODAY@1600 ONCE IV 06/12/17 16:00 06/12/17 18:11 Cefepime HCl 500 mg/Syringe 5.5 ml @ 5.5 mls/min Q24H IV 06/12/17 23:00 06/19/17 22:59 Non-Formulary Medication (Non-Formulary Patient'S Own Med) 1 ea DAILY@0500 PO 06/13/17 05:00 07/11/17 08:59 Prednisone (PredniSONE TAB) 20 mg BID PO 06/12/17 21:00 07/11/17 08:59 Insulin Glargine (Lantus Solostar Pen) SEE PROTOCOL TEXT HS SC 06/12/17 21:00 07/12/17 20:59 Assessment and Plan Assessment and Plan: Problem list: Metastatic Renal Cell Carcinoma with nephrectomy Chronic Kidney Disease (ESRD) Type 2 Diabetes Mellitus Cellulitis Puncture wound Chronic Pain HTN HLD Chronic Anemia BPH Anxiety/Depression Hypokalemia Hypocalcemia Assessment: 61 year old male with metastatic RCC and T2DM presenting to the hospital with cellulitis of the left hand from drill bit penetrating injury. Hospital stay has been complicated by poor glucose control leading to multiple hypoglycemic bouts, as well as acute on chronic renal injury and electrolyte imbalance. Plan: 1. Cellulitis: Improving margins, pain, and swelling. Continue IV abx for at least 48 hours before switching to PO. No surgery warranted per ortho. 2. Acute on Chronic Kidney Failure: Seen by nephrologystarting hemodialysis today. Creatinine is elevated from baseline. Causing hypocalcemia, hypokalemia, and chronic anemia. Check BMP q12 3. T2DM: Difficulty controlling with novolog and lantus. Likely multifactorial due to stress dose of prednisone, renal failure, and infection. POC glucose q4hrs. 4. Penetrating wound from metal object: No history of tetanus vaccination at primary care office. Will give tetanus vaccine. 5. Prednisone: Stress dose decreased to 40mg. Will go to home dose of 30mg tomorrow. 6. Hypertension: Hold anti-hypertensives due to kidney failure. Disposition: Continue inpatient stay. Will need at least another day of IV antibiotics, more consistent glucose control, and improvement in electrolytes before discharge. Continued [facility] stay due to: multiple IV medications needed, other Discharge planning: home
[2017-06-12] MEDS: BOOST GLUCOSE CONTROL PO SCH (19:02)
[2017-06-12] MEDS ORDERED: NURSING VERBAL MED ORDER ONE (19:45)
--- NOTE | 2017-06-12 19:49 | Progress Note ---
Subjective Date of Service: Jun 12, 2017. Subjective Pt evaluation today including: conversation w/ patient, physical exam, chart review, lab review, review of inpatient medication list Pain: left hand - but improving PO Intake: fair tele stable overnight the swelling, redness, and pain of his left hand continue to improve; it is mainly digits 2-5, with the worst over 2/3 he can bend the fingers more easily unsure about last TDaP HD initiated today by Dr. Norwood due to rising creatinine Problem List Medical Problems: (1) Acute dyspnea Status: Acute (2) Chronic kidney disease Status: Acute (3) Renal cell carcinoma Status: Acute Review of Systems Constitutional: No fever Respiratory: No cough, No shortness of breath Cardiac: No chest pain Abdomen: No pain Objective Vital Signs Date Time Temp Pulse Resp B/P (MAP) Pulse Ox O2 Delivery O2 Flow Rate FiO2 06/12/17 19:27 36.9 90 18 189/92 (124) 95 Room Air 06/12/17 16:00 Room Air 06/12/17 15:15 36.6 93 179/98 (125) 06/12/17 15:02 36.9 93 20 185/96 (125) 94 Room Air 06/12/17 14:46 73 185/96 06/12/17 14:30 92 180/94 06/12/17 14:15 92 175/100 06/12/17 14:00 95 176/94 06/12/17 13:45 95 168/96 06/12/17 13:30 94 178/99 06/12/17 13:15 88 180/96 06/12/17 13:00 88 170/90 06/12/17 12:46 88 174/90 06/12/17 12:15 36.8 87 145/92 (109) 06/12/17 12:00 Room Air 06/12/17 11:14 36.7 86 20 170/81 (110) 95 Room Air 06/12/17 08:00 Room Air 06/12/17 07:15 36.8 90 20 173/81 (111) 94 06/12/17 04:23 36.9 92 20 158/75 (102) 95 Room Air 06/12/17 04:02 Room Air 06/12/17 00:02 Room Air 06/12/17 00:01 37.0 90 21 173/82 (112) 94 Room Air 06/11/17 20:00 Room Air Physical Exam General Appearance: no apparent distress ENT: pharynx normal Neck: no JVD Respiratory/Chest: lungs clear, no respiratory distress, no accessory muscle use Cardiovascular: regular rate, rhythm, no gallop, no murmur Abdomen: normal bowel sounds, non tender, soft, no organomegaly Extremities: no pedal edema Neurologic/Psychiatric: alert, oriented x 3 Skin: + pertinent finding (dorsum, left hand, with mild erythema; most erythema is over the 2nd/3rd metacarpals extending onto the proximal fingers; there is mild gross swelling on most of the hand; he is tender to palpation with fingergrip, especially the 2nd digit; hoop coiler is mildly reduced due to pain; left wrist is wnl with no synovitis/swelling; multiple abrasions noted on the left hand) Comments: left arm, upper, AV fistula in place Laboratory Results Last 24 Hours Test 06/11/17 19:59 06/11/17 23:35 06/12/17 02:12 06/12/17 04:03 Bedside Glucose 306 mg/dl 271 mg/dl 123 mg/dl 39 mg/dl Test 06/12/17 04:17 06/12/17 04:32 06/12/17 05:02 06/12/17 06:19 Bedside Glucose 69 mg/dl 97 mg/dl 128 mg/dl 169 mg/dl Test 06/12/17 06:30 06/12/17 11:13 06/12/17 13:48 06/12/17 16:08 White Blood Count 8.19 K/uL Red Blood Count 3.14 M/uL Hemoglobin 8.7 g/dL Hematocrit 26.5 % Mean Corpuscular Volume 84.4 fL Mean Corpuscular Hemoglobin 27.7 pg Mean Corpuscular Hemoglobin Concent 32.8 g/dl Platelet Count 107 K/uL Mean Platelet Volume 9.7 fL Neutrophils (%) (Auto) 90.8 % Lymphocytes (%) (Auto) 3.8 % Monocytes (%) (Auto) 4.2 % Eosinophils (%) (Auto) 0.7 % Basophils (%) (Auto) 0.0 % Neutrophils # (Auto) 7.44 K/uL Lymphocytes # (Auto) 0.31 K/uL Monocytes # (Auto) 0.34 K/uL Eosinophils # (Auto) 0.06 K/uL Basophils # (Auto) 0.00 K/uL RDW Standard Deviation 57.9 fL RDW Coefficient of Variation 18.7 % Immature Granulocyte % (Auto) 0.5 % Immature Granulocyte # (Auto) 0.04 K/uL Nucleated RBC Absolute Count (auto) 0.02 K/uL Nucleated Red Blood Cells % 0.2 % Dohle Bodies 1+ Anisocytosis PRESENT Spherocytes 1+ Schistocytes 1+ Prothrombin Time 11.1 SECONDS Prothromb Time International Ratio 1.0 Sodium Level 140 mmol/L Potassium Level 3.5 mmol/L Chloride Level 104 mmol/L Carbon Dioxide Level 26 mmol/L Anion Gap 10.0 mmol/L Blood Urea Nitrogen 99 mg/dl Creatinine 5.32 mg/dl Est Creatinine Clear Calc Drug Dose 14.7 ml/min Estimated GFR () 12.3 Estimated GFR (Non- 10.6 BUN/Creatinine Ratio 18.5 Random Glucose 151 mg/dl Calcium Level 7.2 mg/dl Phosphorus Level 4.6 mg/dl Total Bilirubin 0.3 mg/dl Aspartate Amino Transf (AST/SGOT) 38 U/L Alanine Aminotransferase (ALT/SGPT) 33 U/L Alkaline Phosphatase 49 U/L Total Protein 4.2 gm/dl Albumin 1.4 gm/dl Globulin 2.8 gm/dl Albumin/Globulin Ratio 0.5 Random Vancomycin Level 20.5 mcg/ml Bedside Glucose 114 mg/dl 156 mg/dl 199 mg/dl Test 06/12/17 17:09 Hepatitis B Surface Antigen NEG Hepatitis C Antibody NEG Assessment and Plan 61yo male: 1. left hand cellulitis - improved. Cont cefepime + vanco. Ortho has evaluated; septic tenosynovitis NOT suspected. Daily exams. Pain control. 2. recent laceration/abrasions to left hand from a drill bit - MS4 Greyson Christy contacted his PCP and they verified he has NOT had a TDaP within the last 10 years. Adacel x 1 ordered today. 3. CKD stage 5, now with probable ESRD - HD initiated today by Dr. Norwood, nephrology. 4. stage 4 renal cell ca - noted. 5. chronic pain syndrome - continue methadone. 6. anemia - 2nd to #3, #4 - h/h acceptable at this time. IV iron per nephrology. 7. solitary kidney status - noted. 8. HTN - uncontrolled, likely due to pain, ESRD status, etc. Adjust meds tomorrow if still running high. 9. DVT proph - heparin 5000 BID. 10. hypoglycemia in the setting of T2DM - pharmacy managing. 11. chronic prednisone use - unsure of reason for such. Was on tapering doses at home and had gotten down to 30mg daily. Will cut from 60mg to 40mg today and wean again in about 3 days. leave on telemetry due to newly initiated hemodialysis Continued [facility] stay due to: multiple IV medications needed, other Discharge planning: home
[2017-06-12] MEDS: SIMVASTATIN 20 MG TAB PO SCH (20:03)
[2017-06-12] MEDS: INSULIN GLARGINE SOLOSTAR 100 UNITS/ML 3 ML PEN SC SCH (20:11)
[2017-06-12] MEDS ORDERED: FENTANYL PATCH REMOVE & WASTE SCH (21:00)
[2017-06-12] MEDS ORDERED: FENTANYL 25 MCG/HR TDSY TD SCH (21:00)
[2017-06-12] MEDS ORDERED: INSULIN GLARGINE SOLOSTAR 100 UNITS/ML 3 ML PEN SC SCH (21:00)
[2017-06-12] MEDS: CEFEPIME IV 500 MG in SYRINGE 0 ML IV SCH (23:17)
[2017-06-13] VITALS (19 sets, daily range): BP systolic 154–194; BP diastolic 72–98; PULSE 82–94; TEMP 36.6–37; O2SAT 94–96
[2017-06-13] MEDS: CABOMETYX PO SCH (05:18)
[2017-06-13 06:06] LABS: BASO % 0.1 %; BASO ABS # 0.01 K/uL (0-0.2); COMPLETE YES; EOS % 0.2 %; HEMATOCRIT 28.3 % (42-52); IG% 0.5 %; LYMPH % 5.6 %; LYMPH ABS # 0.47 K/uL (1.2-3.4); MEAN CELL VOLUME 84.2 fL (80-100); MEAN CORPUSCULAR HEMOGLOBIN 27.4 pg (25-34); MEAN CORPUSCULAR HGB CONC 32.5 g/dl (32-36); MEAN PLATELET VOLUME 10.3 fL (7.4-10.4); MONO % 4.2 %; NEUT % 89.4 %; PLATELET COUNT 110 K/uL (130-400); RED BLOOD COUNT 3.36 M/uL (4.7-6.1); WHITE BLOOD COUNT 8.37 K/uL (4.8-10.8)
[2017-06-13 06:41] LABS: BUN/CREATININE RATIO 16.9 (10-20); CALCIUM 7.6 mg/dl (8.5-10.1); CREATININE 4.11 mg/dl (0.60-1.40); POTASSIUM 3.7 mmol/L (3.5-5.1)
[2017-06-13 06:43] LABS: ALB/GLOB RATIO 0.5 (0.9-2)
[2017-06-13 07:03] LABS: PROTHROMBIN TIME (PATIENT) 10.7 SECONDS (9.0-12.0)
[2017-06-13] MEDS: LACTOBACILLUS ACIDOPHILUS 1 GM PACK PO SCH ×3 (07:30→16:45)
[2017-06-13] MEDS: FERROUS SULFATE 325 MG TAB PO SCH ×2 (07:32→21:19)
[2017-06-13] MEDS: METOPROLOL SUCC 50MG EXT REL TAB PO SCH ×2 (07:32→21:20)
[2017-06-13] MEDS: AMLODIPINE BESYLATE 5 MG TAB PO SCH (07:33)
[2017-06-13] MEDS: ASPIRIN 81 MG ECTAB PO SCH (07:33)
[2017-06-13] MEDS: TAMSULOSIN HCL 0.4 MG CAP PO SCH (07:34)
[2017-06-13] MEDS: FUROSEMIDE 20 MG TAB PO SCH (07:34)
[2017-06-13] MEDS: CHECK FENTANYL PATCH PLACEMENT SCH ×3 (07:35→23:55)
[2017-06-13] MEDS: METHADONE HCL 10 MG TAB PO SCH ×2 (07:37→21:26)
[2017-06-13] MEDS: INSULIN ASPART 100 UNITS/ML 3 ML PEN SC SCH ×4 (07:41→21:22)
[2017-06-13] MEDS: CALCIUM CARBONATE 500 MG CHEWABLE PO SCH ×3 (07:46→16:07)
--- NOTE | 2017-06-13 08:09 | Medical Student: [facility] ---
Med Student Progress Note Date of Service Jun 13, 2017. Subjective Pt evaluation today including: conversation w/ patient, physical exam, chart review, lab review, review of studies, review of inpatient medication list Pain: Mild to moderate left hand pain well controlled Voiding: no voiding problems 61 year old male with metastatic RCC and T2DM presenting with cellulitis of the left hand following puncture injury from drill bit. Feels better than yesterday overall. He is able to move hand more, but pain and swelling seem to be the same as yesterday. He is particularly tender and erythematous on the distal dorsum of the hand and over the proximal dorsum of the index finger. The patient continues to recieve IV cefepime and will likely be switched to oral antibiotics tomorrow given symptoms continue to improve. Blood sugar control improved last night after decreasing to 5 units of Lantus. Blood sugar was between 138 and 241 last night. The stress dose of Prednisone was decreased to 20 mg BID. Nephrology started dialysis yesterday, will dialyze today also. Creatinine has dereased to 4.11 and electrolytes have normalized. Blood pressure has been difficult to control (180's/90's) despite continuing home medications. Review of Systems Constitutional: + fatigue, No fever, No chills, No weakness ENT: + sore throat Respiratory: No cough, No wheezing, No shortness of breath Cardiac: No chest pain, No edema Abdomen: No pain, No nausea, No vomiting, No diarrhea Musculoskeletal: No joint pain Male : No dysuria Neurologic: No numbness/tingling Objective Vital Signs Date Time Temp Pulse Resp B/P (MAP) Pulse Ox O2 Delivery O2 Flow Rate FiO2 06/13/17 04:22 37.0 90 19 183/87 (119) 94 Room Air 06/13/17 04:02 Room Air 06/13/17 00:00 Room Air 06/12/17 23:55 36.9 90 19 185/90 (121) 96 Room Air 06/12/17 20:00 Room Air 06/12/17 19:27 36.9 90 18 189/92 (124) 95 Room Air 06/12/17 16:00 Room Air 06/12/17 15:15 36.6 93 179/98 (125) 06/12/17 15:02 36.9 93 20 185/96 (125) 94 Room Air 06/12/17 14:46 73 185/96 06/12/17 14:30 92 180/94 06/12/17 14:15 92 175/100 06/12/17 14:00 95 176/94 06/12/17 13:45 95 168/96 06/12/17 13:30 94 178/99 06/12/17 13:15 88 180/96 06/12/17 13:00 88 170/90 06/12/17 12:46 88 174/90 06/12/17 12:15 36.8 87 145/92 (109) 06/12/17 12:00 Room Air 06/12/17 11:14 36.7 86 20 170/81 (110) 95 Room Air 06/12/17 08:00 Room Air Physical Exam General Appearance: WD/WN, no apparent distress, + obese Eyes: bilateral eyes normal inspection ENT: normal ENT inspection, pharynx normal Neck: supple Respiratory/Chest: chest non-tender, lungs clear, normal breath sounds, no respiratory distress, no accessory muscle use Cardiovascular: regular rate, rhythm, no edema, no murmur Abdomen: normal bowel sounds, non tender, soft, no organomegaly Extremities: no pedal edema, no calf tenderness, + pertinent finding (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 Erythema is more pronounced over the distal dorsum of hand and knuckle area, as well as over the dorsum of the proximal index finger. Swelling of the dorsum of the hand and the proximal forearm persist. No change in appearance in noticable from yesterday.) Neurologic/Psychiatric: alert, normal mood/affect, oriented x 3 Skin: warm/dry Laboratory Results Last 24 Hours Test 06/12/17 11:13 06/12/17 13:48 06/12/17 16:08 06/12/17 17:09 Bedside Glucose 114 mg/dl 156 mg/dl 199 mg/dl Hepatitis B Surface Antigen NEG Hepatitis C Antibody NEG Test 06/12/17 20:03 06/12/17 23:17 06/13/17 02:03 06/13/17 04:17 Bedside Glucose 241 mg/dl 178 mg/dl 153 mg/dl 138 mg/dl Test 06/13/17 05:34 06/13/17 06:41 White Blood Count 8.37 K/uL Red Blood Count 3.36 M/uL Hemoglobin 9.2 g/dL Hematocrit 28.3 % Mean Corpuscular Volume 84.2 fL Mean Corpuscular Hemoglobin 27.4 pg Mean Corpuscular Hemoglobin Concent 32.5 g/dl Platelet Count 110 K/uL Mean Platelet Volume 10.3 fL Neutrophils (%) (Auto) 89.4 % Lymphocytes (%) (Auto) 5.6 % Monocytes (%) (Auto) 4.2 % Eosinophils (%) (Auto) 0.2 % Basophils (%) (Auto) 0.1 % Neutrophils # (Auto) 7.48 K/uL Lymphocytes # (Auto) 0.47 K/uL Monocytes # (Auto) 0.35 K/uL Eosinophils # (Auto) 0.02 K/uL Basophils # (Auto) 0.01 K/uL RDW Standard Deviation 58.3 fL RDW Coefficient of Variation 18.8 % Immature Granulocyte % (Auto) 0.5 % Immature Granulocyte # (Auto) 0.04 K/uL Nucleated RBC Absolute Count (auto) 0.02 K/uL Nucleated Red Blood Cells % 0.3 % Prothrombin Time 10.7 SECONDS Prothromb Time International Ratio 1.0 Sodium Level 141 mmol/L Potassium Level 3.7 mmol/L Chloride Level 104 mmol/L Carbon Dioxide Level 28 mmol/L Anion Gap 9.0 mmol/L Blood Urea Nitrogen 70 mg/dl Creatinine 4.11 mg/dl Est Creatinine Clear Calc Drug Dose 19.0 ml/min Estimated GFR () 16.7 Estimated GFR (Non- 14.4 BUN/Creatinine Ratio 16.9 Random Glucose 124 mg/dl Calcium Level 7.6 mg/dl Total Bilirubin 0.3 mg/dl Aspartate Amino Transf (AST/SGOT) 41 U/L Alanine Aminotransferase (ALT/SGPT) 38 U/L Alkaline Phosphatase 62 U/L Total Protein 4.7 gm/dl Albumin 1.6 gm/dl Globulin 3.1 gm/dl Albumin/Globulin Ratio 0.5 Random Vancomycin Level 29.2 mcg/ml Bedside Glucose 112 mg/dl Medications Current Inpatient Medications Medications (Trade) Dose Ordered Sig/Edward Route Start Time Stop Time Status Last Admin Dose Admin Glucose (Glucose 40% Gel) 15-30 GRAMS 15 GRAMS... UD PRN PO 06/10/17 20:15 07/10/17 20:14 06/10/17 21:40 30 GM Glucose (Glucose Chew Tab) 4-8 Tablets 4 Tabl... UD PRN PO 06/10/17 20:15 07/10/17 20:14 06/12/17 04:05 8 TABS Dextrose (Dextrose 50% 50ML Syringe) 25-50ML OF 50% DW IV FOR... UD PRN IV 06/10/17 20:15 07/10/17 20:14 Glucagon (Glucagon Inj) 1 mg UD PRN SQ 06/10/17 20:15 07/10/17 20:14 Acetaminophen (Tylenol Tab) 650 mg Q4H PRN PO 06/10/17 20:15 07/10/17 20:14 06/10/17 21:22 650 MG Al Hydrox/Mg Hydrox/Simethicone (Maalox Max Susp) 15 ml Q4H PRN PO 06/10/17 20:15 07/10/17 20:14 Magnesium Hydroxide (Milk Of Magnesia Susp) 30 ml Q12H PRN PO 06/10/17 20:15 07/10/17 20:14 Ondansetron HCl (Zofran Inj) 4 mg Q6H PRN IV 06/10/17 20:15 07/10/17 20:14 Polyethylene (Miralax Powder Packet) 17 gm DAILY PRN PO 06/10/17 20:15 07/10/17 20:14 06/12/17 20:12 17 GM Amlodipine Besylate (Norvasc Tab) 10 mg DAILY PO 06/11/17 09:00 07/11/17 08:59 06/13/17 07:33 10 MG Aspirin (Ecotrin Tab) 81 mg DAILY PO 06/11/17 09:00 07/11/17 08:59 06/13/17 07:33 81 MG Calcitriol (Rocaltrol Cap) 0.25 mcg MoWeFr@0900 PO 06/12/17 09:00 07/12/17 08:59 06/12/17 08:14 0.25 MCG Ferrous Sulfate (Feosol Tab) 325 mg BID PO 06/11/17 09:00 07/11/17 08:59 06/13/17 07:32 325 MG Furosemide (Lasix Tab) 40 mg DAILY PO 06/11/17 09:00 07/11/17 08:59 06/13/17 07:34 40 MG Hydralazine HCl (Apresoline Tab) 100 mg TID PO 06/11/17 09:00 07/11/17 08:59 06/13/17 07:34 100 MG Lactobacillus Acidophilus (Lactinex Granules Pack) 1 gm TIDM PO 06/11/17 07:30 07/11/17 07:29 Simvastatin (Zocor Tab) 20 mg QPM PO 06/11/17 21:00 07/11/17 20:59 06/12/17 20:03 20 MG Tamsulosin HCl (Flomax Cap) 0.4 mg DAILY PO 06/11/17 09:00 07/11/17 08:59 06/13/17 07:34 0.4 MG Metoprolol Succinate (Toprol Xl Tab) 100 mg BID PO 06/11/17 09:00 07/11/17 08:59 06/13/17 07:32 100 MG Miscellaneous Information (Check Fentanyl Patch Placement) 1 ea QS N/A 06/11/17 00:00 07/11/17 00:00 06/13/17 07:35 1 EA Cefepime HCl (Consult) 1 ea DAILY PRN N/A 06/10/17 22:20 07/10/17 22:19 Vancomycin HCl (Consult) 1 ea UD PRN N/A 06/10/17 22:30 07/10/17 22:29 Methadone HCl (Dolophine Tab) 10 mg BID PO 06/11/17 21:00 06/25/17 20:59 06/13/17 07:37 10 MG Oxycodone HCl (Roxicodone Immediate Rel Tab) 10 mg QID PRN PO 06/11/17 16:30 06/24/17 21:59 06/12/17 17:30 10 MG Miscellaneous Information (Consult Glycemic Management Pharmacy) 1 ea UD PRN N/A 06/11/17 20:30 07/11/17 20:29 Insulin Aspart (novoLOG ASPART) SLIDING SCALE ACHS SC 06/11/17 21:00 07/11/17 20:59 06/13/17 07:41 3 UNITS Heparin Sodium (Porcine) (Heparin 100 Unit/ml 5ml Flush) 5 ml PRN PRN IV 06/12/17 01:15 07/12/17 01:14 Iron Sucrose 200 mg/Sodium Chloride 110 ml @ 220 mls/hr Q2D@1200 IV 06/14/17 12:00 06/20/17 12:29 Cefepime HCl 500 mg/Syringe 5.5 ml @ 5.5 mls/min Q24H IV 06/12/17 23:00 06/19/17 22:59 06/12/17 23:17 5.5 MLS/MIN Non-Formulary Medication (Non-Formulary Patient'S Own Med) 1 ea DAILY@0500 PO 06/13/17 05:00 07/11/17 08:59 06/13/17 05:18 1 EA Prednisone (PredniSONE TAB) 20 mg BID PO 06/12/17 21:00 07/11/17 08:59 06/13/17 07:42 20 MG Insulin Glargine (Lantus Solostar Pen) SEE PROTOCOL TEXT HS SC 06/12/17 21:00 07/12/17 20:59 06/12/17 20:11 5 UNITS Enteral Nutritional Formula (Boost Glucose Control) 1 can TIDM PO 06/12/17 16:45 07/12/17 16:44 06/12/17 19:02 1 CAN Calcium Carbonate (Tums Chew Tab) 500 mg AC PO 06/13/17 07:00 07/13/17 06:59 06/13/17 07:46 500 MG Miscellaneous (Fentanyl Patch Remove & Waste) 1 ea Q3D N/A 06/12/17 21:00 07/12/17 20:59 06/12/17 21:09 1 EA Fentanyl (Duragesic Patch) 25 mcg Q3D TD 06/12/17 21:00 06/26/17 20:59 06/12/17 21:05 25 MCG Assessment and Plan Assessment and Plan: Problem list: Metastatic Renal Cell Carcinoma with nephrectomy Chronic Kidney Disease (ESRD) Type 2 Diabetes Mellitus Cellulitis Puncture wound Chronic Pain HTN HLD Chronic Anemia BPH Anxiety/Depression Hypokalemia Hypocalcemia Assessment: 61 year old male with metastatic RCC and T2DM presenting to the hospital with cellulitis of the left hand from drill bit penetrating injury. Hospital stay has been complicated by poor glucose control leading to multiple hypoglycemic bouts, as well as acute on chronic renal injury and electrolyte imbalance. Plan: 1. Cellulitis: MArgins, pain and swelling appear to be similar or mildly improved from yesterday. Continue IV cefepime today before switching to PO. No surgery warranted per ortho. 2. Acute on Chronic Kidney Failure: Seen by nephrology, will receive dialysis again today. Creatinine is has improved over the last day. Calcium, Potassium, and hemoglobin have improved over the last day as well. Check BMP q12 3. T2DM: Difficulty controlling with novolog and lantus. Likely multifactorial due to stress dose of prednisone, renal failure, and infection. POC glucose q4hrs. Much better control over the last night using only 5 units of lantus. BSG 138-241 overnight. 4. Penetrating wound from metal object: TdaP was given for tetanus prophylaxis. 5. Prednisone: Stress dose decreased to 40mg. Will go to home dose of 30mg tomorrow. 6. Hypertension: Receiving home anti-hypertensive medications, although blood pressure remains 180's/90's. Monitor for improvement over next day subsequent to dialysis. Disposition: Continue inpatient stay. Will need at least another day of IV antibiotics, and another round of dialysis before discharge. Continued [facility] stay due to: multiple IV medications needed, other Discharge planning: home
[2017-06-13] MEDS ORDERED: FENTANYL PATCH REMOVE & WASTE SCH (08:59)
[2017-06-13] MEDS ORDERED: FENTANYL 25 MCG/HR TDSY TD SCH (09:00)
--- NOTE | 2017-06-13 09:36 | Pharmacy Progress Note ---
Glycemic Control Progress Note Date of Service Jun 13, 2017. Scope Glycemic Pharmacist consulted for glycemic control to write orders per [facility] inpatient glycemic control protocol. Objective Accuchecks BSG (last 24hrs): Test 06/12/17 11:13 06/12/17 13:48 06/12/17 16:08 06/12/17 20:03 Bedside Glucose 114 mg/dl (70-99) 156 mg/dl (70-99) 199 mg/dl (70-99) 241 mg/dl (70-99) Test 06/12/17 23:17 06/13/17 02:03 06/13/17 04:17 06/13/17 05:34 Bedside Glucose 178 mg/dl (70-99) 153 mg/dl (70-99) 138 mg/dl (70-99) Random Glucose 124 mg/dl (70-99) Test 06/13/17 06:41 06/13/17 09:07 Bedside Glucose 112 mg/dl (70-99) 181 mg/dl (70-99) Recent Pertinent Medications The patient is currently receiving: * Basal insulin: Lantus 5 units every 24 hours in the evening * Correctional Insulin: Novolog Correction per scale ACHS Goal Range: Low 110 mg/dL - High 140 mg/dL Correction Factor: 35 mg/dL/unit * Prandial insulin: Per carb ratio of 1 unit per 12 grams CHO consumed Outpatient Anti-Diabetic Meds Lantus 25 units in the evening (patient admits that he only takes about 16 units in the evening - that produced a low of 30 mg/dL prior to admission) and Novolog per sliding scale Assessment & Plan ASSESSMENT: * See progress note from 06/12/17 for more background info, in short: * Pt receiving SQ basal bolus insulin regimen for hyperglycemia secondary to baseline DM (outpatient regimen on hold), infection (hand cellulitis on cefepime and vancomycin), and starting hemodialysis today. * Patient is currently receiving an average of 25 units of insulin per day * 5 units of basal insulin * 19 units of prandial/correctional insulin * BSGs ranging 114- 241 mg/dl over the past 24hrs * Changes needed to insulin regimen: * AM Fasting BSG = 124 mg/dl. This is within goal range for patient based on inpatient targets and co-morbidities. The patient had significant hypoglycemia prior to admission and then yesterday morning at 0400. As a result, the Lantus dose was decreased; the patient's blood sugar corrected excellently overnight. Will schedule a scale for tonight with slightly higher Lantus dose available as expect Lantus from prior to admission to be eliminated. * Post-prandial BSGs tend to rise throughout the day. Tightened parameters. patient may require AM Lantus rather than PM Lantus due to the overnight insulin secretion correcting itself. * Total daily dose ~25. Patient will have second round of hemodialysis today. Uncertain if insulin sensitivity will increase. PLAN FOR INPATIENT GLYCEMIC CONTROL: * STARTING Lantus 0-7 units SQ HS * TIGHTENING correction factor to 25 mg/dl/unit * TIGHTENING carb ratio to 1 unit per 7 grams CHO consumed * Continuing goal range to Low 110 mg/dL - High 140 mg/dL Thank you.
--- NOTE | 2017-06-13 10:07 | Clinical Documentation Query ---
CLINICAL DOCUMENTATION QUERY Dr. SHILEDS, In your clinical opinion is this patient being managed for: ( x ) Metabolic encephalopathy due to diabetic hypoglycemia, treated and resolved ( ) Not Agree ( ) Other explanation of clinical findings (Please Explain) ( ) Unable to determine (Please Define) ( ) Need to Discuss The medical record reflects the following clinical findings, treatment, and risk factors. Clinical Indicators: 61 yo male transferred from outside hospital for L hand cellulitis. Pt presented lethargic and found to have a BSG of 26. Treatment: IV D50, transferred to PCU, pt fed, IV fluids, decreased doses of home lantus Risk Factors: hypoglycemia Please clarify and document your clinical opinion in the progress notes and discharge summary. Terms such as "probable", "suspected", "likely", "questionable", "possible", or "still to be ruled out" are acceptable. IF IN AGREEMENT, YOU MUST DOCUMENT ABOVE DIAGNOSTIC STATEMENT IN DAILY PROGRESS NOTES AND DISCHARGE SUMMARY. This document is not part of the patient's record. Thank You, Gita Kumar, RN [phone]
--- NOTE | 2017-06-13 10:13 | Pharmacy Progress Note ---
Pharmacy Abx Dose Short Note Date of Service Jun 13, 2017. Assessment & Plan Assessment 61 year old male receiving Vancomycin and Cefepime for treatment of hand cellulitis s/p injury. * Day # 3 of antimicrobial therapy. * h/o ESRD. First HD session was 06/12. Plan for HD again today. Plan Vancomycin: * Random level this am was supratherapeutic at 29.2 mcg/ml * Last dose of vancomycin was 1250 mg IV given 06/12 ~1600 (after HD) * Of note, patient is producing urine and therefore is likely clearing some vancomycin; urine output of 1000 ml documented for 06/12 * A reduced dose of 500 mg with be given this afternoon with future doses based on pre-HD random levels Cefepime: * Continue 500 mg IV q 24 hrs for HD Pharmacy will continue to follow and will adjust dose/frequency as necessary. Thank you.
--- NOTE | 2017-06-13 10:40 | Nephrology Progress Note ---
Nephrology Progress Note Date of Service Jun 13, 2017. Chief Complaint Follow-up for end-stage renal disease. Roland Causey was seen and examined in his room this morning. Had 1st dialysis treatment yesterday, uneventful but he was feeling tired and occasionally falling asleep however he feels like that was because he did not sleep well since his admission. Last night since he slept well and this morning he was feeling much better. Tolerated 1 liter ultra filtration. Review of Systems A complete review of systems was performed. Pertinent positives are noted above. All other systems are negative. Vital Signs Last 8 Hrs Date Time Temp Pulse Resp B/P (MAP) Pulse Ox O2 Delivery O2 Flow Rate FiO2 06/13/17 10:00 85 170/93 06/13/17 09:48 86 175/90 06/13/17 09:31 37.0 87 186/95 (125) 06/13/17 08:00 Room Air 06/13/17 07:13 37.0 83 20 184/89 (120) 96 Room Air 06/13/17 04:22 37.0 90 19 183/87 (119) 94 Room Air 06/13/17 04:02 Room Air Last Recorded Weight Weight (Kilograms): 85.500 Physical Exam GENERAL: middle aged male, , AAA x 3, pleasant, face puffy, ill-appearing, not in any distress. NECK: Supple, no JVD. RESPIRATORY: Normal breathing efforts, no accessory muscle use, clear to auscultation bilaterally, no wheezes or rales. CARDIOVASCULAR: S1, S2 normal, rate rhythm regular. EXTREMITY: 2 + B/L lower extremity edema, left hand swollen, erythematous, left brachiocephalic AV fistula with good thrill and bruit. NEURO: speech fluent. PSYCHIATRY: Normal mood and judgment Family History Cervical cancer Diabetes mellitus Heart disease Hypertension Myocardial infarction Pancreatic cancer Prostate cancer Negative for CKD/ESRD Social History Drug Use: none Marital Status: single Housing Status: lives alone Occupation: retired Single, retired. Formerly worked for [employer]. Never a smoker. Laboratory Results Past 24 Hours 06/13/17 05:34 Red Blood Count 3.36, Mean Corpuscular Volume 84.2, Mean Corpuscular Hemoglobin 27.4, Mean Corpuscular Hemoglobin Concent 32.5, Mean Platelet Volume 10.3, Neutrophils (%) (Auto) 89.4, Lymphocytes (%) (Auto) 5.6, Monocytes (%) (Auto) 4.2, Eosinophils (%) (Auto) 0.2, Basophils (%) (Auto) 0.1, Neutrophils # (Auto) 7.48, Lymphocytes # (Auto) 0.47, Monocytes # (Auto) 0.35, Eosinophils # (Auto) 0.02, Basophils # (Auto) 0.01 06/13/17 05:34 Test 06/12/17 11:13 06/12/17 13:48 06/12/17 16:08 06/12/17 17:09 Bedside Glucose 114 mg/dl (70-99) 156 mg/dl (70-99) 199 mg/dl (70-99) Hepatitis B Surface Antigen NEG (NEG) Hepatitis C Antibody NEG (NEG) Test 06/12/17 20:03 06/12/17 23:17 06/13/17 02:03 06/13/17 04:17 Bedside Glucose 241 mg/dl (70-99) 178 mg/dl (70-99) 153 mg/dl (70-99) 138 mg/dl (70-99) Test 06/13/17 05:34 06/13/17 06:41 06/13/17 09:07 White Blood Count 8.37 K/uL (4.8-10.8) Red Blood Count 3.36 M/uL (4.7-6.1) Hemoglobin 9.2 g/dL (14.0-18.0) Hematocrit 28.3 % (42-52) Mean Corpuscular Volume 84.2 fL (80-100) Mean Corpuscular Hemoglobin 27.4 pg (25-34) Mean Corpuscular Hemoglobin Concent 32.5 g/dl (32-36) Platelet Count 110 K/uL (130-400) Mean Platelet Volume 10.3 fL (7.4-10.4) Neutrophils (%) (Auto) 89.4 % Lymphocytes (%) (Auto) 5.6 % Monocytes (%) (Auto) 4.2 % Eosinophils (%) (Auto) 0.2 % Basophils (%) (Auto) 0.1 % Neutrophils # (Auto) 7.48 K/uL (1.4-6.5) Lymphocytes # (Auto) 0.47 K/uL (1.2-3.4) Monocytes # (Auto) 0.35 K/uL (0.11-0.59) Eosinophils # (Auto) 0.02 K/uL (0-0.5) Basophils # (Auto) 0.01 K/uL (0-0.2) RDW Standard Deviation 58.3 fL (36.4-46.3) RDW Coefficient of Variation 18.8 % (11.5-14.5) Immature Granulocyte % (Auto) 0.5 % Immature Granulocyte # (Auto) 0.04 K/uL (0.00-0.02) Nucleated RBC Absolute Count (auto) 0.02 K/uL (0-0) Nucleated Red Blood Cells % 0.3 % Prothrombin Time 10.7 SECONDS (9.0-12.0) Prothromb Time International Ratio 1.0 (0.9-1.1) Anion Gap 9.0 mmol/L (3-11) Est Creatinine Clear Calc Drug Dose 19.0 ml/min Estimated GFR () 16.7 Estimated GFR (Non- 14.4 BUN/Creatinine Ratio 16.9 (10-20) Calcium Level 7.6 mg/dl (8.5-10.1) Total Bilirubin 0.3 mg/dl (0.2-1) Aspartate Amino Transf (AST/SGOT) 41 U/L (15-37) Alanine Aminotransferase (ALT/SGPT) 38 U/L (12-78) Alkaline Phosphatase 62 U/L (45-117) Total Protein 4.7 gm/dl (6.4-8.2) Albumin 1.6 gm/dl (3.4-5.0) Globulin 3.1 gm/dl (2.5-4.0) Albumin/Globulin Ratio 0.5 (0.9-2) Random Vancomycin Level 29.2 mcg/ml Bedside Glucose 112 mg/dl (70-99) 181 mg/dl (70-99) Allergies Coded Allergies: Iodinated Diagnostic Agents (Verified Allergy, Unknown, oil based, severe headaches, 04/28/17) EVENT OCCURED IN 1971, PT STATES HE HAS HAD 3 DIFFERENT WATER BASED IVP DYES WITH NO ISSUE Medications Current Inpatient Medications Medications (Trade) Dose Ordered Sig/Edward Route Start Time Stop Time Status Last Admin Dose Admin Glucose (Glucose 40% Gel) 15-30 GRAMS 15 GRAMS... UD PRN PO 06/10/17 20:15 07/10/17 20:14 06/10/17 21:40 30 GM Glucose (Glucose Chew Tab) 4-8 Tablets 4 Tabl... UD PRN PO 06/10/17 20:15 07/10/17 20:14 06/12/17 04:05 8 TABS Dextrose (Dextrose 50% 50ML Syringe) 25-50ML OF 50% DW IV FOR... UD PRN IV 06/10/17 20:15 07/10/17 20:14 Glucagon (Glucagon Inj) 1 mg UD PRN SQ 06/10/17 20:15 07/10/17 20:14 Acetaminophen (Tylenol Tab) 650 mg Q4H PRN PO 06/10/17 20:15 07/10/17 20:14 06/10/17 21:22 650 MG Al Hydrox/Mg Hydrox/Simethicone (Maalox Max Susp) 15 ml Q4H PRN PO 06/10/17 20:15 07/10/17 20:14 Magnesium Hydroxide (Milk Of Magnesia Susp) 30 ml Q12H PRN PO 06/10/17 20:15 07/10/17 20:14 Ondansetron HCl (Zofran Inj) 4 mg Q6H PRN IV 06/10/17 20:15 07/10/17 20:14 Polyethylene (Miralax Powder Packet) 17 gm DAILY PRN PO 06/10/17 20:15 07/10/17 20:14 06/12/17 20:12 17 GM Amlodipine Besylate (Norvasc Tab) 10 mg DAILY PO 06/11/17 09:00 07/11/17 08:59 06/13/17 07:33 10 MG Aspirin (Ecotrin Tab) 81 mg DAILY PO 06/11/17 09:00 07/11/17 08:59 06/13/17 07:33 81 MG Calcitriol (Rocaltrol Cap) 0.25 mcg MoWeFr@0900 PO 06/12/17 09:00 07/12/17 08:59 06/12/17 08:14 0.25 MCG Ferrous Sulfate (Feosol Tab) 325 mg BID PO 06/11/17 09:00 07/11/17 08:59 06/13/17 07:32 325 MG Furosemide (Lasix Tab) 40 mg DAILY PO 06/11/17 09:00 07/11/17 08:59 06/13/17 07:34 40 MG Hydralazine HCl (Apresoline Tab) 100 mg TID PO 06/11/17 09:00 07/11/17 08:59 06/13/17 07:34 100 MG Lactobacillus Acidophilus (Lactinex Granules Pack) 1 gm TIDM PO 06/11/17 07:30 07/11/17 07:29 Simvastatin (Zocor Tab) 20 mg QPM PO 06/11/17 21:00 07/11/17 20:59 06/12/17 20:03 20 MG Tamsulosin HCl (Flomax Cap) 0.4 mg DAILY PO 06/11/17 09:00 07/11/17 08:59 06/13/17 07:34 0.4 MG Metoprolol Succinate (Toprol Xl Tab) 100 mg BID PO 06/11/17 09:00 07/11/17 08:59 06/13/17 07:32 100 MG Miscellaneous Information (Check Fentanyl Patch Placement) 1 ea QS N/A 06/11/17 00:00 07/11/17 00:00 06/13/17 07:35 1 EA Cefepime HCl (Consult) 1 ea DAILY PRN N/A 06/10/17 22:20 07/10/17 22:19 Vancomycin HCl (Consult) 1 ea UD PRN N/A 06/10/17 22:30 07/10/17 22:29 Methadone HCl (Dolophine Tab) 10 mg BID PO 06/11/17 21:00 06/25/17 20:59 06/13/17 07:37 10 MG Oxycodone HCl (Roxicodone Immediate Rel Tab) 10 mg QID PRN PO 06/11/17 16:30 06/24/17 21:59 06/12/17 17:30 10 MG Miscellaneous Information (Consult Glycemic Management Pharmacy) 1 ea UD PRN N/A 06/11/17 20:30 07/11/17 20:29 Insulin Aspart (novoLOG ASPART) SLIDING SCALE ACHS SC 06/11/17 21:00 07/11/17 20:59 06/13/17 07:41 3 UNITS Heparin Sodium (Porcine) (Heparin 100 Unit/ml 5ml Flush) 5 ml PRN PRN IV 06/12/17 01:15 07/12/17 01:14 Iron Sucrose 200 mg/Sodium Chloride 110 ml @ 220 mls/hr Q2D@1200 IV 06/14/17 12:00 06/20/17 12:29 Cefepime HCl 500 mg/Syringe 5.5 ml @ 5.5 mls/min Q24H IV 06/12/17 23:00 06/19/17 22:59 06/12/17 23:17 5.5 MLS/MIN Non-Formulary Medication (Non-Formulary Patient'S Own Med) 1 ea DAILY@0500 PO 06/13/17 05:00 07/11/17 08:59 06/13/17 05:18 1 EA Prednisone (PredniSONE TAB) 20 mg BID PO 06/12/17 21:00 07/11/17 08:59 06/13/17 07:42 20 MG Insulin Glargine (Lantus Solostar Pen) SEE PROTOCOL TEXT HS SC 06/12/17 21:00 07/12/17 20:59 06/12/17 20:11 5 UNITS Enteral Nutritional Formula (Boost Glucose Control) 1 can TIDM PO 06/12/17 16:45 07/12/17 16:44 06/12/17 19:02 1 CAN Calcium Carbonate (Tums Chew Tab) 500 mg AC PO 06/13/17 07:00 07/13/17 06:59 06/13/17 07:46 500 MG Miscellaneous (Fentanyl Patch Remove & Waste) 1 ea Q3D N/A 06/12/17 21:00 07/12/17 20:59 06/12/17 21:09 1 EA Fentanyl (Duragesic Patch) 25 mcg Q3D TD 06/12/17 21:00 06/26/17 20:59 06/12/17 21:05 25 MCG Vancomycin HCl 500 mg/Sodium Chloride 260 ml @ 125 mls/hr 1600 IV 06/13/17 16:00 06/13/17 20:00 Impression (1) Cellulitis of left hand (2) Chronic kidney disease, stage V (very severe) (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 Mora is being set up. --the Continue current antihypertensive regimen. No change at present
--- NOTE | 2017-06-13 11:21 | PROGRESS NOTE ---
DATE: 06/13/2017 SUBJECTIVE: A 61-year-old gentleman with multiple medical comorbidities with a left hand infection. He continues to make daily improvements. He is feeling much better today. Still a little bit tight and sore but significantly improved. OBJECTIVE: VITAL SIGNS: Temperature is 37.0. Vital signs stable. LEFT HAND: Reveals the swelling to be markedly improved. There still is some swelling particularly over the dorsal aspect of the proximal phalanx of the index finger. He can nearly make a full fist. Much less tender to palpation. There is no fluctuance. No signs of abscess or pus accumulation. Scabs continue heel. LABORATORY DATA: White cell count 8.37. ASSESSMENT: A 61-year-old gentleman with multiple comorbidities admitted with left hand cellulitis/infection. There are no signs of abscess. He is clinically making improvements daily. I do not think he is going to need any surgical intervention. He will need several more days, maybe of IV antibiotics followed by oral antibiotics, probably for about 2 weeks. Any orthopedic questions can be directed to me at [phone].
[2017-06-13] MEDS: BOOST GLUCOSE CONTROL PO SCH ×3 (13:04→16:51)
[2017-06-13] MEDS ORDERED: METHADONE HCL 5 MG TAB PO STA (15:19)
[2017-06-13] MEDS ORDERED: VANCOMYCIN INJ 500 MG in SODIUM CHLORIDE 0.9% 250ML 250 ML IV SCH (16:00)
[2017-06-13] MEDS: OXYCODONE HCL IR 5 MG TAB (IMMEDIATE RELEASE) PO PRN ×2 (16:05→23:54)
--- NOTE | 2017-06-13 20:06 | Progress Note ---
Subjective Date of Service: Jun 13, 2017. Subjective Pt evaluation today including: conversation w/ patient, conversation w/ family (good friend/POA at bedside), physical exam, chart review, lab review, review of studies (outpatient pulmonary clinic records), review of inpatient medication list Pain: none during my visit PO Intake: improved Voiding: no voiding problems tele stable overnight left hand continues to improve - better range of motion, less swelling, less pain, less erythema records from Dr. Ferreira's office reviewed -- patient was treated in late March/early April for possible PRICING ASSOCIATE with steroids initially was on 60mg prednisone/day, followed by slow taper (10's) every 2-3 weeks was down to 30mg daily just before this admission POA confirms he was on methadone 10mg TID prior to this admission Problem List Medical Problems: (1) Acute dyspnea Status: Acute (2) Chronic kidney disease Status: Acute (3) Renal cell carcinoma Status: Acute Review of Systems Constitutional: No fever Respiratory: No shortness of breath Cardiac: No chest pain Abdomen: No pain Objective Vital Signs Date Time Temp Pulse Resp B/P (MAP) Pulse Ox O2 Delivery O2 Flow Rate FiO2 06/13/17 18:51 36.8 93 18 180/81 (114) 96 Room Air 06/13/17 16:00 94 Room Air 06/13/17 15:42 36.8 94 20 173/88 (116) 94 Room Air 06/13/17 12:40 36.8 86 186/97 (126) 06/13/17 12:00 Room Air 06/13/17 12:00 86 173/89 06/13/17 11:45 82 154/95 06/13/17 11:30 89 156/72 06/13/17 11:15 85 173/92 06/13/17 11:00 85 174/95 06/13/17 10:45 87 181/98 06/13/17 10:30 86 167/91 06/13/17 10:15 85 184/94 06/13/17 10:00 85 170/93 06/13/17 09:48 86 175/90 06/13/17 09:31 37.0 87 186/95 (125) 06/13/17 08:00 Room Air 06/13/17 07:13 37.0 83 20 184/89 (120) 96 Room Air 06/13/17 04:22 37.0 90 19 183/87 (119) 94 Room Air 06/13/17 04:02 Room Air 06/13/17 00:00 Room Air 06/12/17 23:55 36.9 90 19 185/90 (121) 96 Room Air 06/12/17 20:00 Room Air Physical Exam General Appearance: no apparent distress ENT: pharynx normal Neck: no JVD Respiratory/Chest: lungs clear, no respiratory distress, no accessory muscle use Cardiovascular: regular rate, rhythm, no gallop, no murmur Abdomen: normal bowel sounds, non tender, soft, no organomegaly Extremities: no pedal edema Neurologic/Psychiatric: alert, oriented x 3 Skin: + pertinent finding (port, right upper chest - clean; left upper Arm AV fistula in place; left hand - erythema MARKEDLY improved from yesterday's exam; less generalized swelling; handgrip much improved; most of his tenderness is still the 2nd metacarpal and 2nd digit, lesser extent the 3rd digit ) Laboratory Results Last 24 Hours Test 06/12/17 20:03 06/12/17 23:17 06/13/17 02:03 06/13/17 04:17 Bedside Glucose 241 mg/dl 178 mg/dl 153 mg/dl 138 mg/dl Test 06/13/17 05:34 06/13/17 06:41 06/13/17 09:07 06/13/17 12:05 White Blood Count 8.37 K/uL Red Blood Count 3.36 M/uL Hemoglobin 9.2 g/dL Hematocrit 28.3 % Mean Corpuscular Volume 84.2 fL Mean Corpuscular Hemoglobin 27.4 pg Mean Corpuscular Hemoglobin Concent 32.5 g/dl Platelet Count 110 K/uL Mean Platelet Volume 10.3 fL Neutrophils (%) (Auto) 89.4 % Lymphocytes (%) (Auto) 5.6 % Monocytes (%) (Auto) 4.2 % Eosinophils (%) (Auto) 0.2 % Basophils (%) (Auto) 0.1 % Neutrophils # (Auto) 7.48 K/uL Lymphocytes # (Auto) 0.47 K/uL Monocytes # (Auto) 0.35 K/uL Eosinophils # (Auto) 0.02 K/uL Basophils # (Auto) 0.01 K/uL RDW Standard Deviation 58.3 fL RDW Coefficient of Variation 18.8 % Immature Granulocyte % (Auto) 0.5 % Immature Granulocyte # (Auto) 0.04 K/uL Nucleated RBC Absolute Count (auto) 0.02 K/uL Nucleated Red Blood Cells % 0.3 % Prothrombin Time 10.7 SECONDS Prothromb Time International Ratio 1.0 Sodium Level 141 mmol/L Potassium Level 3.7 mmol/L Chloride Level 104 mmol/L Carbon Dioxide Level 28 mmol/L Anion Gap 9.0 mmol/L Blood Urea Nitrogen 70 mg/dl Creatinine 4.11 mg/dl Est Creatinine Clear Calc Drug Dose 19.0 ml/min Estimated GFR () 16.7 Estimated GFR (Non- 14.4 BUN/Creatinine Ratio 16.9 Random Glucose 124 mg/dl Calcium Level 7.6 mg/dl Total Bilirubin 0.3 mg/dl Aspartate Amino Transf (AST/SGOT) 41 U/L Alanine Aminotransferase (ALT/SGPT) 38 U/L Alkaline Phosphatase 62 U/L Total Protein 4.7 gm/dl Albumin 1.6 gm/dl Globulin 3.1 gm/dl Albumin/Globulin Ratio 0.5 Random Vancomycin Level 29.2 mcg/ml Bedside Glucose 112 mg/dl 181 mg/dl 129 mg/dl Test 06/13/17 13:01 06/13/17 16:13 06/13/17 18:22 Bedside Glucose 123 mg/dl 270 mg/dl 275 mg/dl Assessment and Plan 61yo male: 1. left hand cellulitis - again improved. Cont cefepime + vanco. Ortho has evaluated; septic tenosynovitis NOT suspected. Daily exams. Pain control. Possible transition to PO antibiotics next 1-2 days. s/p Adacel vaccine this admission. 2. suspected PRICING ASSOCIATE - dx late March. On tapering steroids under direction of Dr. Ferreira. Was on 30mg prior to this admission. Continue 40mg another 1-2 days, then back to 30mg daily thereafter. Most recent chest CT with resolution of infiltrates. PRICING ASSOCIATE was thought 2nd to opdivo. 3. CKD stage 5, now with probable ESRD - HD initiated 06/12/17. He had HD once again today. Plan is for outpatient HD in [place]. 4. stage 4 renal cell ca - noted. 5. chronic pain syndrome - continue methadone TID + fentanyl patch. 6. anemia - 2nd to #3, #4 - h/h acceptable at this time. IV iron per nephrology. 7. solitary kidney status - noted. 8. HTN - uncontrolled, likely due to pain, ESRD status, etc. Defer med adjustments and/or additions to Dr. Norwood. 9. DVT proph - heparin 5000 BID. 10. hypoglycemia in the setting of T2DM - former resolved, but now FSBS's are rising; defer management to pharmacy. 11. severe hypoalbuminemia - due to nephrotic range proteinuria +/- malnourishment. can likely d/c telemetry in AM POA updated Continued [facility] stay due to: multiple IV medications needed Discharge planning: home
[2017-06-13] MEDS: SIMVASTATIN 20 MG TAB PO SCH (21:20)
[2017-06-13] MEDS: INSULIN GLARGINE SOLOSTAR 100 UNITS/ML 3 ML PEN SC SCH (21:23)
[2017-06-13] MEDS: CEFEPIME IV 500 MG in SYRINGE 0 ML IV SCH (22:47)
[2017-06-14] VITALS (22 sets, daily range): BP systolic 127–191; BP diastolic 81–101; PULSE 37–84; TEMP 36.8–37; O2SAT 94–95
[2017-06-14] MEDS ORDERED: INSULIN ASPART 100 UNITS/ML 3 ML PEN SC ONE (02:00)
[2017-06-14] MEDS: CABOMETYX PO SCH (05:17)
[2017-06-14 07:19] LABS: CREATININE 3.62 mg/dl (0.60-1.40)
[2017-06-14] MEDS: BOOST GLUCOSE CONTROL PO SCH ×3 (07:30→16:54)
[2017-06-14] MEDS: LACTOBACILLUS ACIDOPHILUS 1 GM PACK PO SCH ×3 (07:30→16:06)
--- NOTE | 2017-06-14 07:52 | Medical Student: [facility] ---
Med Student Progress Note Date of Service Jun 14, 2017. Subjective Pt evaluation today including: conversation w/ patient, physical exam, chart review, lab review, review of studies, review of inpatient medication list Pain: Increased chronic back pain over the last day. Voiding: no voiding problems 61 year old male with metastatic RCC, ESRD, and T2DM presenting with cellulitis of the left hand following puncture injury from drill bit. He is able to move hand more, pain and swelling continuing to improve. The patient continues to recieve IV cefepime and will likely be switched to oral antibiotics today given symptoms continue to improve. Blood sugar control has been stable over the last two days. Blood sugar was in the 200's last night. The stress dose of Prednisone was decreased to 20 mg BID, and will be tapered off prednisone outpatient. Nephrology will ocntinue to dialyze today. Creatinine has decreased to 3.6 which is close to baseline. Will ensure that outpatient dialysis is set up before patient is discharged. Blood pressure has been difficult to control ( 180's/90's) despite continuing home medications. Patient states that new chemotherapy has caused the blood pressure to increase and was educated by oncologist that this was a likely side effect. Review of Systems Constitutional: + fatigue, No fever, No chills Respiratory: No cough, No wheezing, No shortness of breath Cardiac: No chest pain, No edema Abdomen: + nausea, No pain, No vomiting, No diarrhea, No constipation Musculoskeletal: No calf pain Male : No dysuria All Other Systems: Reviewed and Negative Objective Vital Signs Date Time Temp Pulse Resp B/P (MAP) Pulse Ox O2 Delivery O2 Flow Rate FiO2 06/14/17 04:05 36.9 82 17 177/86 (116) 94 Room Air 06/14/17 04:03 Room Air 06/14/17 02:05 180/84 (116) 06/14/17 00:57 191/93 (125) 06/14/17 00:02 Room Air 06/13/17 23:44 36.6 90 17 194/96 (128) 95 Room Air 06/13/17 20:00 95 Room Air 06/13/17 18:51 36.8 93 18 180/81 (114) 96 Room Air 06/13/17 16:00 94 Room Air 06/13/17 15:42 36.8 94 20 173/88 (116) 94 Room Air 06/13/17 12:40 36.8 86 186/97 (126) 06/13/17 12:00 Room Air 06/13/17 12:00 86 173/89 06/13/17 11:45 82 154/95 06/13/17 11:30 89 156/72 06/13/17 11:15 85 173/92 06/13/17 11:00 85 174/95 06/13/17 10:45 87 181/98 06/13/17 10:30 86 167/91 06/13/17 10:15 85 184/94 06/13/17 10:00 85 170/93 06/13/17 09:48 86 175/90 06/13/17 09:31 37.0 87 186/95 (125) 06/13/17 08:00 Room Air Physical Exam General Appearance: WD/WN, no apparent distress Eyes: bilateral eyes normal inspection ENT: normal ENT inspection, hearing grossly normal, pharynx normal Neck: supple, no JVD Respiratory/Chest: chest non-tender, lungs clear, normal breath sounds, no respiratory distress, no accessory muscle use Cardiovascular: regular rate, rhythm, no edema, no JVD, no murmur Abdomen: normal bowel sounds, non tender, soft, no organomegaly, no pulsatile mass Extremities: normal range of motion, no pedal edema, no calf tenderness, normal capillary refill, + pertinent finding (Left hand continues to improve. Swelling is no longer in the forearm. The redness over the dorsum of the hand has decrerased. Dorsum of the hand continues to be moderately painful to the touch. 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 ) Neurologic/Psychiatric: no motor/sensory deficits, alert, normal mood/affect, oriented x 3 Skin: warm/dry Lymphatic: no adenopathy Laboratory Results Last 24 Hours Test 06/13/17 09:07 06/13/17 12:05 06/13/17 13:01 06/13/17 16:13 Bedside Glucose 181 mg/dl 129 mg/dl 123 mg/dl 270 mg/dl Test 06/13/17 18:22 06/13/17 20:22 06/14/17 02:03 06/14/17 06:23 Bedside Glucose 275 mg/dl 288 mg/dl 232 mg/dl 185 mg/dl Test 06/14/17 06:35 Creatinine 3.62 mg/dl Est Creatinine Clear Calc Drug Dose 21.6 ml/min Estimated GFR () 19.5 Estimated GFR (Non- 16.8 Random Vancomycin Level 24.1 mcg/ml Medications Current Inpatient Medications Medications (Trade) Dose Ordered Sig/Edward Route Start Time Stop Time Status Last Admin Dose Admin Glucose (Glucose 40% Gel) 15-30 GRAMS 15 GRAMS... UD PRN PO 06/10/17 20:15 07/10/17 20:14 06/10/17 21:40 30 GM Glucose (Glucose Chew Tab) 4-8 Tablets 4 Tabl... UD PRN PO 06/10/17 20:15 07/10/17 20:14 06/12/17 04:05 8 TABS Dextrose (Dextrose 50% 50ML Syringe) 25-50ML OF 50% DW IV FOR... UD PRN IV 06/10/17 20:15 07/10/17 20:14 Glucagon (Glucagon Inj) 1 mg UD PRN SQ 06/10/17 20:15 07/10/17 20:14 Acetaminophen (Tylenol Tab) 650 mg Q4H PRN PO 06/10/17 20:15 07/10/17 20:14 06/10/17 21:22 650 MG Al Hydrox/Mg Hydrox/Simethicone (Maalox Max Susp) 15 ml Q4H PRN PO 06/10/17 20:15 07/10/17 20:14 Magnesium Hydroxide (Milk Of Magnesia Susp) 30 ml Q12H PRN PO 06/10/17 20:15 07/10/17 20:14 Ondansetron HCl (Zofran Inj) 4 mg Q6H PRN IV 06/10/17 20:15 07/10/17 20:14 Polyethylene (Miralax Powder Packet) 17 gm DAILY PRN PO 06/10/17 20:15 07/10/17 20:14 06/12/17 20:12 17 GM Amlodipine Besylate (Norvasc Tab) 10 mg DAILY PO 06/11/17 09:00 07/11/17 08:59 06/13/17 07:33 10 MG Aspirin (Ecotrin Tab) 81 mg DAILY PO 06/11/17 09:00 07/11/17 08:59 06/13/17 07:33 81 MG Calcitriol (Rocaltrol Cap) 0.25 mcg MoWeFr@0900 PO 06/12/17 09:00 07/12/17 08:59 06/12/17 08:14 0.25 MCG Ferrous Sulfate (Feosol Tab) 325 mg BID PO 06/11/17 09:00 07/11/17 08:59 06/13/17 21:19 325 MG Furosemide (Lasix Tab) 40 mg DAILY PO 06/11/17 09:00 07/11/17 08:59 06/13/17 07:34 40 MG Hydralazine HCl (Apresoline Tab) 100 mg TID PO 06/11/17 09:00 07/11/17 08:59 06/13/17 21:19 100 MG Lactobacillus Acidophilus (Lactinex Granules Pack) 1 gm TIDM PO 06/11/17 07:30 07/11/17 07:29 Simvastatin (Zocor Tab) 20 mg QPM PO 06/11/17 21:00 07/11/17 20:59 06/13/17 21:20 20 MG Tamsulosin HCl (Flomax Cap) 0.4 mg DAILY PO 06/11/17 09:00 07/11/17 08:59 06/13/17 07:34 0.4 MG Metoprolol Succinate (Toprol Xl Tab) 100 mg BID PO 06/11/17 09:00 07/11/17 08:59 06/13/17 21:20 100 MG Miscellaneous Information (Check Fentanyl Patch Placement) 1 ea QS N/A 06/11/17 00:00 07/11/17 00:00 06/13/17 23:55 1 EA Cefepime HCl (Consult) 1 ea DAILY PRN N/A 06/10/17 22:20 07/10/17 22:19 Vancomycin HCl (Consult) 1 ea UD PRN N/A 06/10/17 22:30 07/10/17 22:29 Oxycodone HCl (Roxicodone Immediate Rel Tab) 10 mg QID PRN PO 06/11/17 16:30 06/24/17 21:59 06/13/17 23:54 10 MG Miscellaneous Information (Consult Glycemic Management Pharmacy) 1 ea UD PRN N/A 06/11/17 20:30 07/11/17 20:29 Insulin Aspart (novoLOG ASPART) SLIDING SCALE ACHS SC 06/11/17 21:00 07/11/17 20:59 06/13/17 21:22 8 UNITS Heparin Sodium (Porcine) (Heparin 100 Unit/ml 5ml Flush) 5 ml PRN PRN IV 06/12/17 01:15 07/12/17 01:14 Iron Sucrose 200 mg/Sodium Chloride 110 ml @ 220 mls/hr Q2D@1200 IV 06/14/17 12:00 06/20/17 12:29 Cefepime HCl 500 mg/Syringe 5.5 ml @ 5.5 mls/min Q24H IV 06/12/17 23:00 06/19/17 22:59 06/13/17 22:47 5.5 MLS/MIN Non-Formulary Medication (Non-Formulary Patient'S Own Med) 1 ea DAILY@0500 PO 06/13/17 05:00 07/11/17 08:59 06/14/17 05:17 1 EA Prednisone (PredniSONE TAB) 20 mg BID PO 06/12/17 21:00 07/11/17 08:59 06/13/17 21:20 20 MG Insulin Glargine (Lantus Solostar Pen) SEE PROTOCOL TEXT HS SC 06/12/17 21:00 07/12/17 20:59 06/13/17 21:23 7 UNITS Enteral Nutritional Formula (Boost Glucose Control) 1 can TIDM PO 06/12/17 16:45 07/12/17 16:44 06/13/17 16:51 1 CAN Calcium Carbonate (Tums Chew Tab) 500 mg AC PO 06/13/17 07:00 07/13/17 06:59 06/13/17 16:07 500 MG Miscellaneous (Fentanyl Patch Remove & Waste) 1 ea Q3D N/A 06/12/17 21:00 07/12/17 20:59 06/12/17 21:09 1 EA Fentanyl (Duragesic Patch) 25 mcg Q3D TD 06/12/17 21:00 06/26/17 20:59 06/12/17 21:05 25 MCG Methadone HCl (Dolophine Tab) 10 mg TID PO 06/13/17 21:00 06/25/17 20:59 06/13/17 21:26 10 MG Insulin Glargine (Lantus Solostar Pen) 5 units QAM ME 06/14/17 09:00 06/14/17 09:01 Assessment and Plan Assessment and Plan: Problem list: Metastatic Renal Cell Carcinoma with nephrectomy Chronic Kidney Disease (ESRD) Type 2 Diabetes Mellitus Cellulitis Puncture wound Chronic Pain HTN HLD Chronic Anemia BPH Anxiety/Depression Hypokalemia Hypocalcemia Assessment: 61 year old male with metastatic RCC and T2DM presenting to the hospital with cellulitis of the left hand from drill bit penetrating injury. Hospital stay has been complicated by poor glucose control leading to multiple hypoglycemic bouts, as well as acute on chronic renal injury and electrolyte imbalance. Has improved over hospital stay and now receiving dialysis. Will be discharged home with outpatient dialysis. Plan: 1. Cellulitis: Margins, pain and swelling appear to be improved from yesterday. Switch to PO antibiotics today. 2. Acute on Chronic Kidney Failure: Seen by nephrology, will receive dialysis again today. Creatinine is has improved over the last day to his baseline of 3.6. Check BMP q12. Need to confirm dialysis is set up outpatient for this week. 3. T2DM: Difficulty controlling likely multifactorial due to stress dose of prednisone, renal failure, and infection. POC glucose q4hrs. Glucose control much improved over the last 2 days. BSG in the 200's overnight. 4. Penetrating wound from metal object: TdaP was given for tetanus prophylaxis. 5. Prednisone: Stress dose decreased to 40mg. Will be tapered off slowly outpatient. 6. Hypertension: Receiving home anti-hypertensive medications, although blood pressure remains 180's/90's. Monitor for improvement over next day subsequent to dialysis. Likely multifactorial including prednisone increase, drug induced from chemotherapy, and renal disease. 7. Chronic pain: Methadone was increased to home dose of 20mg TID. Having some hip pain likely due to inactivity during hospital stay. Disposition: Goal is to discharge today after dialysis to daughter's home with outpatient dialysis. Discharge planning: home
--- NOTE | 2017-06-14 08:00 | Pharmacy Progress Note ---
Glycemic Control Progress Note Date of Service Jun 14, 2017. Scope Glycemic Pharmacist consulted for glycemic control to write orders per [facility] inpatient glycemic control protocol. Objective Accuchecks BSG (last 24hrs): Test 06/13/17 09:07 06/13/17 12:05 06/13/17 13:01 06/13/17 16:13 Bedside Glucose 181 mg/dl (70-99) 129 mg/dl (70-99) 123 mg/dl (70-99) 270 mg/dl (70-99) Test 06/13/17 18:22 06/13/17 20:22 06/14/17 02:03 06/14/17 06:23 Bedside Glucose 275 mg/dl (70-99) 288 mg/dl (70-99) 232 mg/dl (70-99) 185 mg/dl (70-99) Recent Pertinent Medications The patient is currently receiving: * Basal insulin: Lantus 7 units every 24 hours in the evening * Correctional Insulin: Novolog Correction per scale ACHS Goal Range: Low 110 mg/dL - High 140 mg/dL Correction Factor: 20 mg/dL/unit * Prandial insulin: Per carb ratio of 1 unit per 8 grams CHO consumed Outpatient Anti-Diabetic Meds Lantus 25 units in the PM (per patient, takes a maximum of 16 units per day) Assessment & Plan ASSESSMENT: * See progress note from 06/12/17 for more background info, in short: * Pt receiving SQ basal bolus insulin regimen for hyperglycemia secondary to baseline DM (outpatient regimen on hold), infection (hand cellulitis on cefepime and vancomycin), and hemodialysis. * Patient is currently receiving an average of 39 units of insulin per day * 7 units of basal insulin * 32 units of prandial/correctional insulin * BSGs ranging 112- 288 mg/dl over the past 24hrs * Changes needed to insulin regimen: * AM Fasting BSG = 185 mg/dl. This is higher than the goal range for patient based on inpatient targets and co-morbidities. The patient had significant hypoglycemia prior to admission and then the morning of 06/12/17 at 0400. As a result, Lantus dosing was decreased significantly. Yesterday, the patient received 7 units of Lantus and an extra 5 units of Novolog overnight. Will give addition 5 units of Lantus this morning and then a scale for this evening ( could potentially receive 12 units of Lantus BUT I believe that the blood sugar of 37 mg/dL was a result of a combination of Lantus 16 units the night before, decreased PO intake, and additional Novolog that night). Will continue twice daily Lantus dosing for ease of titration in this patient. * Post-prandial BSGs tend to rise throughout the day. Tightened parameters yesterday evening. Due to the decrease from breakfast to lunch blood sugar, it appears that the parameters may have been too aggressive. Loosen slightly. * Total daily dose ~35. Patient will have third round of hemodialysis today. Uncertain if insulin sensitivity will increase. PLAN FOR INPATIENT GLYCEMIC CONTROL: * STARTING Lantus 5 units SQ qAM and 5-7 units qPM * Continuing correction factor to 20 mg/dl/unit * LOOSENING carb ratio to 1 unit per 9 grams CHO consumed * Continuing goal range to Low 110 mg/dL - High 140 mg/dL Thank you.
[2017-06-14] MEDS: CALCIUM CARBONATE 500 MG CHEWABLE PO SCH ×3 (08:16→16:35)
[2017-06-14] MEDS: CHECK FENTANYL PATCH PLACEMENT SCH ×2 (08:18→15:45)
[2017-06-14] MEDS: TAMSULOSIN HCL 0.4 MG CAP PO SCH (08:19)
[2017-06-14] MEDS: METOPROLOL SUCC 50MG EXT REL TAB PO SCH (08:19)
[2017-06-14] MEDS: FUROSEMIDE 20 MG TAB PO SCH (08:20)
[2017-06-14] MEDS: AMLODIPINE BESYLATE 5 MG TAB PO SCH (08:20)
[2017-06-14] MEDS: ASPIRIN 81 MG ECTAB PO SCH (08:20)
[2017-06-14] MEDS: CALCITRIOL 0.25 MCG CAP PO SCH (08:21)
[2017-06-14] MEDS: INSULIN ASPART 100 UNITS/ML 3 ML PEN SC SCH ×3 (08:25→16:54)
[2017-06-14] MEDS: METHADONE HCL 10 MG TAB PO SCH ×2 (08:30→13:10)
[2017-06-14] MEDS ORDERED: INSULIN GLARGINE SOLOSTAR 100 UNITS/ML 3 ML PEN SC SCH (09:00)
[2017-06-14] MEDS ORDERED: FENTANYL PATCH REMOVE & WASTE SCH (09:00)
--- NOTE | 2017-06-14 10:58 | Dialysis Progress Note ---
Hemodialysis Note Date of Service Jun 14, 2017. Chief Complaint Follow-up for end-stage renal disease. Roland Causey was seen and examined during HD this am. Tolerating HD well, denies any concern/symptoms. BP remain elevated. Review of Systems A complete review of systems was performed. Pertinent positives are noted above. All other systems are negative. Vital Signs Last 8 Hrs Date Time Temp Pulse Resp B/P (MAP) Pulse Ox O2 Delivery O2 Flow Rate FiO2 06/14/17 10:15 84 162/89 06/14/17 10:00 79 164/89 06/14/17 09:45 82 169/91 06/14/17 09:30 74 174/90 06/14/17 09:15 83 164/82 06/14/17 09:09 80 170/84 06/14/17 08:00 Room Air 06/14/17 07:51 36.9 77 20 180/89 (119) 95 Room Air 06/14/17 04:05 36.9 82 17 177/86 (116) 94 Room Air 06/14/17 04:03 Room Air Last Recorded Weight Weight (Kilograms): 83.800 Physical Exam GENERAL: middle aged male, AAA x 3, pleasant, face puffy, ill-appearing, not in any distress. NECK: Supple, no JVD. RESPIRATORY: Normal breathing efforts, no accessory muscle use, clear to auscultation bilaterally, no wheezes or rales. CARDIOVASCULAR: S1, S2 normal, rate rhythm regular. EXTREMITY: 2 + B/L lower extremity edema, left hand swollen, erythematous, left brachiocephalic AV fistula with good thrill and bruit. NEURO: speech fluent. PSYCHIATRY: Normal mood and judgment Family History Negative for CKD/ESRD Social History Drug Use: none Marital Status: single Housing Status: lives alone Occupation: retired Single, retired. Formerly worked for [email or web address]. Never a smoker. Laboratory Results Past 24 Hours 06/14/17 06:35 Test 06/13/17 12:05 06/13/17 13:01 06/13/17 16:13 06/13/17 18:22 Bedside Glucose 129 mg/dl (70-99) 123 mg/dl (70-99) 270 mg/dl (70-99) 275 mg/dl (70-99) Test 06/13/17 20:22 06/14/17 02:03 06/14/17 06:23 06/14/17 06:35 Bedside Glucose 288 mg/dl (70-99) 232 mg/dl (70-99) 185 mg/dl (70-99) Est Creatinine Clear Calc Drug Dose 21.6 ml/min Estimated GFR () 19.5 Estimated GFR (Non- 16.8 Random Vancomycin Level 24.1 mcg/ml Allergies Coded Allergies: Iodinated Diagnostic Agents (Verified Allergy, Unknown, oil based, severe headaches, 04/28/17) EVENT OCCURED IN 1971, PT STATES HE HAS HAD 3 DIFFERENT WATER BASED IVP DYES WITH NO ISSUE Medications Current Inpatient Medications Medications (Trade) Dose Ordered Sig/Edward Route Start Time Stop Time Status Last Admin Dose Admin Glucose (Glucose 40% Gel) 15-30 GRAMS 15 GRAMS... UD PRN PO 06/10/17 20:15 07/10/17 20:14 06/10/17 21:40 30 GM Glucose (Glucose Chew Tab) 4-8 Tablets 4 Tabl... UD PRN PO 06/10/17 20:15 07/10/17 20:14 06/12/17 04:05 8 TABS Dextrose (Dextrose 50% 50ML Syringe) 25-50ML OF 50% DW IV FOR... UD PRN IV 06/10/17 20:15 07/10/17 20:14 Glucagon (Glucagon Inj) 1 mg UD PRN SQ 06/10/17 20:15 07/10/17 20:14 Acetaminophen (Tylenol Tab) 650 mg Q4H PRN PO 06/10/17 20:15 07/10/17 20:14 06/10/17 21:22 650 MG Al Hydrox/Mg Hydrox/Simethicone (Maalox Max Susp) 15 ml Q4H PRN PO 06/10/17 20:15 07/10/17 20:14 Magnesium Hydroxide (Milk Of Magnesia Susp) 30 ml Q12H PRN PO 06/10/17 20:15 07/10/17 20:14 Ondansetron HCl (Zofran Inj) 4 mg Q6H PRN IV 06/10/17 20:15 07/10/17 20:14 Polyethylene (Miralax Powder Packet) 17 gm DAILY PRN PO 06/10/17 20:15 07/10/17 20:14 06/12/17 20:12 17 GM Amlodipine Besylate (Norvasc Tab) 10 mg DAILY PO 06/11/17 09:00 07/11/17 08:59 06/14/17 08:20 10 MG Aspirin (Ecotrin Tab) 81 mg DAILY PO 06/11/17 09:00 07/11/17 08:59 06/14/17 08:20 81 MG Calcitriol (Rocaltrol Cap) 0.25 mcg MoWeFr@0900 PO 06/12/17 09:00 07/12/17 08:59 06/14/17 08:21 0.25 MCG Furosemide (Lasix Tab) 40 mg DAILY PO 06/11/17 09:00 07/11/17 08:59 06/14/17 08:20 40 MG Hydralazine HCl (Apresoline Tab) 100 mg TID PO 06/11/17 09:00 07/11/17 08:59 06/14/17 08:20 100 MG Lactobacillus Acidophilus (Lactinex Granules Pack) 1 gm TIDM PO 06/11/17 07:30 07/11/17 07:29 Simvastatin (Zocor Tab) 20 mg QPM PO 06/11/17 21:00 07/11/17 20:59 06/13/17 21:20 20 MG Tamsulosin HCl (Flomax Cap) 0.4 mg DAILY PO 06/11/17 09:00 07/11/17 08:59 06/14/17 08:19 0.4 MG Metoprolol Succinate (Toprol Xl Tab) 100 mg BID PO 06/11/17 09:00 07/11/17 08:59 06/14/17 08:19 100 MG Miscellaneous Information (Check Fentanyl Patch Placement) 1 ea QS N/A 06/11/17 00:00 07/11/17 00:00 06/14/17 08:18 1 EA Cefepime HCl (Consult) 1 ea DAILY PRN N/A 06/10/17 22:20 07/10/17 22:19 Vancomycin HCl (Consult) 1 ea UD PRN N/A 06/10/17 22:30 07/10/17 22:29 Oxycodone HCl (Roxicodone Immediate Rel Tab) 10 mg QID PRN PO 06/11/17 16:30 06/24/17 21:59 06/13/17 23:54 10 MG Miscellaneous Information (Consult Glycemic Management Pharmacy) 1 ea UD PRN N/A 06/11/17 20:30 07/11/17 20:29 Insulin Aspart (novoLOG ASPART) SLIDING SCALE ACHS SC 06/11/17 21:00 07/11/17 20:59 06/14/17 08:25 15 UNITS Heparin Sodium (Porcine) (Heparin 100 Unit/ml 5ml Flush) 5 ml PRN PRN IV 06/12/17 01:15 07/12/17 01:14 Iron Sucrose 200 mg/Sodium Chloride 110 ml @ 220 mls/hr Q2D@1200 IV 06/14/17 12:00 06/20/17 12:29 Cefepime HCl 500 mg/Syringe 5.5 ml @ 5.5 mls/min Q24H IV 06/12/17 23:00 06/19/17 22:59 06/13/17 22:47 5.5 MLS/MIN Non-Formulary Medication (Non-Formulary Patient'S Own Med) 1 ea DAILY@0500 PO 06/13/17 05:00 07/11/17 08:59 06/14/17 05:17 1 EA Prednisone (PredniSONE TAB) 20 mg BID PO 06/12/17 21:00 07/11/17 08:59 06/14/17 08:22 20 MG Insulin Glargine (Lantus Solostar Pen) SEE PROTOCOL TEXT HS SC 06/12/17 21:00 07/12/17 20:59 06/13/17 21:23 7 UNITS Enteral Nutritional Formula (Boost Glucose Control) 1 can TIDM PO 06/12/17 16:45 07/12/17 16:44 06/14/17 07:30 1 CAN Calcium Carbonate (Tums Chew Tab) 500 mg AC PO 06/13/17 07:00 07/13/17 06:59 06/14/17 08:16 500 MG Miscellaneous (Fentanyl Patch Remove & Waste) 1 ea Q3D N/A 06/12/17 21:00 07/12/17 20:59 06/12/17 21:09 1 EA Fentanyl (Duragesic Patch) 25 mcg Q3D TD 06/12/17 21:00 06/26/17 20:59 06/12/17 21:05 25 MCG Methadone HCl (Dolophine Tab) 10 mg TID PO 06/13/17 21:00 06/25/17 20:59 06/14/17 08:30 10 MG Insulin Glargine (Lantus Solostar Pen) 5 units QAM SC 06/14/17 09:00 07/14/17 08:59 06/14/17 08:26 5 UNITS Impression (1) Cellulitis of left hand (2) Chronic kidney disease, stage V (very severe) (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 Mora, 1st outpatient treatment will be on Monday at 2 p.m. --can be discharged any time if antibiotic can be transitioned to orally
--- NOTE | 2017-06-14 11:53 | Pharmacy Progress Note ---
Pharmacy Abx Dose Short Note Date of Service Jun 14, 2017. Assessment & Plan Assessment 61 year old male receiving Vancomycin and Cefepime for treatment of hand cellulitis s/p injury. * Day # 4 of antimicrobial therapy. * h/o ESRD, HD initiated on 06/12/17 Plan Vancomycin: * Random level this am was slightly elevated at 24.1 mcg/ml * Last dose of vancomycin: 500 mg IV given 06/13 ~1600 (after HD) * Of note, patient is producing urine and therefore is likely clearing some vancomycin on his own; urine output of 950 ml documented for 06/13 * Pt is currently receiving HD - planning for 3 hours today so we can expect additional clearance of vancomycin * 500 mg IV will be ordered for 1600 today * Further random levels will be ordered once HD schedule known Pharmacy will continue to follow and will adjust dose/frequency as necessary. Thank you.
[2017-06-14] MEDS ORDERED: IRON SUCROSE INJ 200 MG in SODIUM CHLORIDE 0.9% 100ML IV SCH (12:00)
[2017-06-14] MEDS ORDERED: CEFTRIAXONE SOD INJ 1 GM in DEXTROSE 5% ADD-VANTAGE 50ML 50 ML IV SCH (15:00)
[2017-06-14] MEDS ORDERED: VANCOMYCIN INJ 1,000 MG in SODIUM CHLORIDE 0.9% 250ML 250 ML IV ONE (16:00)
[2017-06-14] MEDS ORDERED: VANCOMYCIN INJ 500 MG in SODIUM CHLORIDE 0.9% 250ML 250 ML IV SCH (16:00)
[2017-06-14] MEDS ORDERED: VANCOMYCIN INJ 500 MG in SODIUM CHLORIDE 0.9% 100ML 100 ML IV SCH (18:00)
[2017-06-14] MEDS ORDERED: METH10TA PO (18:28)
[2017-06-14] MEDS ORDERED: INSDGI SC (18:28)
[2017-06-14] MEDS ORDERED: LSX20 PO (18:28)
[2017-06-14] MEDS ORDERED: CEFT1INJ26 IV (18:28)
[2017-06-14] MEDS ORDERED: PRED10TA PO (18:28)
[2017-06-14] MEDS ORDERED: VANC1INJ94 IV (18:29)
--- NOTE | 2017-06-14 18:54 | Discharge Instructions ---
Discharge Instructions Date of Service Jun 14, 2017. Admission Reason for Admission: Hand Cellulitis of left hand Discharge Discharge Diagnosis / Problem: Cellulitis of left hand, kidney cancer, initiation of dialysis Discharge Goals Goal(s): Learn about illness, Diagnostic testing, Therapeutic intervention Activity Recommendations Activity Limitations: as noted below avoid excessive use of the left hand over the next 1-2 weeks (avoid heavy lifting over 5-10 pounds in the left hand, excessive bending of hand, etc) . Instructions / Follow-Up Instructions / Follow-Up From Dr. Zepeda - 1. left hand infection/cellulitis - * you received a tetanus booster during your stay * you received IV antibiotics during your stay * Dr. Jaime Marie from orthopedics saw you and felt that you did NOT need surgery on the hand * the hand is gradually improving with antibiotics * take at least 7 more days of IV antibiotics after discharge * rocephin (ceftriaxone) 1 gram daily through your port for 7 days starting * vancomycin via your port for 3 doses on the following days - Monday, ; 06/20/17; , 06/22/17 * depending on the response to the additional antibiotics you may not need any further antibiotics OR you may need additional oral antibiotics * please see Dr. Marie in about 1 week to recheck the hand and make the determination about needing additional antibiotics 2. kidney disease - * you have been started on dialysis this admission * your next dialysis date is 06/17/17 in [place] * please call Dr. Mora's/Dr. Norwood's office if you have any questions or concerns about your dialysis 3. pain control - continue your normal pain medications 4. prednisone - starting TOMORROW, 06/15/17 - take 30mg once daily for 2 weeks. Further tapering instructions should come from Dr. Ferreira's office. 5. the [employer] will check your vancomycin level on Monday morning at your home. 6. Return to [facility] if - * you develop fever over 100.5 degrees * your left hand worsens -- worsening redness, swelling, pain, difficulty moving the fingers, etc * you develop shortness of breath, chest pain * you develop rash * any other concerns 7. Follow-up appointments - * see Dr. Jaime Marie in 1 week - please call his office for appointment * dialysis THIS MONDAY as scheduled * Dr. Ferreira or his associates within 2 weeks Current Hospital Diet Patient's current hospital diet: AHA Diet (Heart Healthy), Diabetes Type 2 Diet Discharge Diet Recommended Diet: Diabetes Type 2 Diet, Renal Diet Fluid Restriction: 1500 ml (6 cups) Pending Studies Studies pending at discharge: no Laboratory Results Hemoglobin A1c Test 05/22/17 13:45 Range/Units Estimated Average Glucose 137 mg/dl Hemoglobin A1c 6.4 H 4.5-5.6 % Medical Emergencies . Who to Call and When: Medical Emergencies: If at any time you feel your situation is an emergency, please call 911 immediately. . Non-Emergent Contact Non-Emergency issues call your: Primary Care Provider, [employer] Lieutenant Call Non-Emergent contact if: temperature is above 100.5, your pain is not controlled, your pain is worsening, your pain is unusual for you, your pain is concerning you, wound has increased drainage, wound has increased redness, wound has increased pain, you have any medication questions . . "Provider Documentation" section prepared by Clint Zepeda. . VTE Core Measure Inpt VTE Proph given/why not?: Unfractionated heparin SQ
--- NOTE | 2017-06-14 19:25 | PROGRESS NOTE ---
DATE: 06/14/2017 SUBJECTIVE: A 61-year-old gentleman with multiple medical comorbidities we are following for a left hand infection. He is doing quite a bit better. He has noted marked improvement daily over the past several days. Minimal pain at this time. OBJECTIVE: VITAL SIGNS: Temperature is 36.8. EXTREMITIES: Left hand reveals swelling is markedly improved. Still just a little bit of swelling over the proximal phalanx of the index finger, but significantly improved from 24 hours ago. He can nearly make a full fist. He is neurologically intact. ASSESSMENT: A 61-year-old male with multiple medical comorbidities admitted with a left hand infection and cellulitis. He is making clinical improvements and on antibiotics. No signs of abscess or surgical indication. This should continue to respond to antibiotics and probably need a couple more days of IV followed by oral antibiotics for about 2 weeks. Any orthopedic questions can be directed at [phone]. We are going to sign off for now.
[2017-06-14] MEDS: OXYCODONE HCL IR 5 MG TAB (IMMEDIATE RELEASE) PO PRN (19:26)
[2017-06-15] MEDS ORDERED: NEPHROCAPS PO SCH (09:00)
--- NOTE | 2017-06-16 10:11 | Discharge Summary ---
Discharge Summary Date of Service Jun 16, 2017. Discharge Summary Admission Date: Jun 10, 2017 at 19:59 Discharge Date: Jun 14, 2017 Discharge Disposition: Home with services Principal Diagnosis: left hand cellulitis Problems/Secondary Diagnoses: 1. hypoglycemia 2. T2DM 3. stage 4 renal cell carcinoma 4. anemia 5. h/o RELEASE MANAGER, suspected to be from chemotherapy agent (Opdivo) 6. CKD stage 5, now ESRD with initiation of HD this admission 7. HTN 8. hyperlipidemia 9. chronic pain syndrome 10. BPH 11. severe hypoalbuminemia 2nd to nephrotic-range proteinuria 12. metabolic encephalopathy 2nd to hypoglycemia - resolved Immunizations: Have You Had Influenza Vaccine: Yes Influenza Vaccine Date: May 14, 2015 History of Tetanus Vaccine?: Yes Tetanus Immunization Date: Sep 14, 2011 History of Pneumococcal: Yes Pneumococcal Date: Sep 14, 2013 History of Hepatitis B Vaccine: No Procedures: 1. initiation of hemodialysis 2. Adacel tetanus booster Consultations: 1. orthopedics - Jaime Marie MD 2. nephrology - Pauline Norwood MD Medication Reconciliation New Medications: Ceftriaxone Sodium (Rocephin) 1 Gm Inj 1 GM IV DAILY for 7 Days, #7 VIAL 0 Refills start 06/15/17 Vancomycin HCl in Sodium Chlor (VANCOMYCIN in NSS) 1 Inj Inj 500 MG IV UD, #3 DOSE 0 Refills give on dialysis days (06/17, 06/20, 06/22) Changed Medications: Furosemide (Furosemide) 20 Mg Tab 40 MG PO DAILY, #30 TABS 2 Refills (Changed from: DIRECTED; Refills: ) Insulin Glargine (Lantus) 100 Unit/Ml Inj 20 UNITS SC QPM, #1 VIAL 2 Refills (Changed from: 25 UNITS; Refills: ) Methadone Hcl (Dolophine) 10 Mg Tab 10 MG PO TID for 30 Days (Changed from: Methadone Hcl (Dolophine) 5 Mg Tab 2.5 Mg PO BID) Prednisone Tab (Prednisone) 10 Mg Tab 10 MG PO DIRECTED, #60 TAB 0 Refills (Changed from: Prednisone 20 Mg Tab 20 Mg PO TID) Continued Medications: Amlodipine (Norvasc) 10 Mg Tab 10 MG PO DAILY, TAB Aspirin (Aspirin Ec) 81 Mg Tab 81 MG PO DAILY Cabozantinib S-Malate (Cabometyx) 60 Mg Tab 1 TAB PO DAILY for 30 Days Calcitriol (Calcitriol) 0.25 Mcg Cap 0.25 MCG PO 3XWK Fentanyl (Fentanyl) 75 Mcg/Hr Dis 25 PATCH TOP CQ72HR Ferrous Sulfate (Ferrous Sulfate) 325 Mg Tab 325 MG PO BID Hydralazine Hcl (Apresoline) 100 Mg Tab 100 MG PO TID, TAB Insulin Aspart (Novolog Flexpen) 100 Units/Ml Inj 0 UNITS SC ACHS for 30 Days, #1 PEN Metoprolol Succinate (Metoprolol Succinate ER) 100 Mg Tabcr 100 MG PO BID, #60 DOSE 4 Refills Oxycodone Hcl (Oxycodone Hcl) 10 Mg Tab 10 MG PO Q6 PRN for Pain Polyethylene (Miralax) 17 Gm Pow 17 GM PO DAILY PRN for Constipation for 10 Days, #10 PKT Simvastatin (Zocor) 20 Mg Tab 20 MG PO QPM, TAB Tamsulosin Hcl (Flomax) 0.4 Mg Cap 0.4 MG PO DAILY, CAP Discontinued Medications: Lactobacillus Acidophilus (Lactinex Granules) 1 Gm Pack 1 GM PO TIDM for 10 Days, #30 TAB Referrals At Discharge Follow up Referrals: Information Assurance Officer Referral - Please Call For Appointment with Lex Mora D.O. Orthopedics Referral - Within 1 Week with Jaime Marie M.D. Cut [employer] Log Referral - Within 2 Weeks with Greyson Ferreira MD Discharge Exam Physical Exam: General Appearance: no apparent distress ENT: pharynx normal Neck: no JVD Respiratory/Chest: lungs clear, no respiratory distress, no accessory muscle use Cardiovascular: regular rate, rhythm, no gallop, no murmur, normal peripheral pulses Abdomen / GI: normal bowel sounds, non tender, soft, no organomegaly Extremities: no pedal edema, + pertinent finding (left hand: advanced practice professional nearly 5/5 ; mild swelling on the dorsum of the left hand, mainly the 2nd metacarpal area and 2nd finger; to a lesser degree there is swelling over the 3rd finger ) Neurologic/Psychiatric: alert, oriented x 3 Skin: + pertinent finding (scattered abrasions and scabbed ulcerations on the left hand; mild swelling and erythema about the 2nd metacarpal (especially distal) and the 2nd finger & to a lesser degree the 3rd finger; there is NO open ulcer or abscess on the hand ) Hospital Course HISTORY OF PRESENT ILLNESS: Mr Padilla Christy is a 61 year old male with type 2 diabetes, metastatic RCC, s/p L nephrectomy, CKD stage V (has a left arm AV fistula, not on dialysis yet), who presents via ambulance as a transfer from [facility] today. He reports he was working with a drill and the drill bit flew out of his hands, and punctured the dorsal aspect of his left hand. Since then it has become increasingly red, tender, and swollen. It is unclear when this injury actually occurred, though likely a few days ago, and he was found on the floor alone and taken to [facility]. At [facility], his WBC was 11.6, Hb 11.4, Hct 34.0, CRP 2.85, Glc 74, Creatinine 5.0, eGFR 12, Lactate 1.9. He was started on Vancomycin and Cefepime. His L hand Xray showed diffuse swelling with DJD of the peripheral small joints of the hand. His CT head and CXR were normal. He was transferred here due to concern for tenosynovitis, and since his specialists are here - he follows with Dr. Norwood of Nephrology and Dr. Dao of Oncology. He was also recently admitted 03/29 for acute renal failure and pneumonia. Since discharge, he had a port placed in the R chest. Upon arrival, the pt was very lethargic, but able to speak a few words. His BSG was found to be 26. D5 was administered and his blood glc was 186 15 minutes later. He reported severe pain in the hand, and that he is able to move his fingers around. He confirmed he is a full code. HOSPITAL COURSE: 1. left hand cellulitis - he was seen in consult by Dr. Jaime Marie, orthopedics, who did not feel there was evidence of a more invasive infection such as septic tenosynovitis or abscess. His cellulitis was treated nonoperatively with cefepime & vancomycin. He made nice improvement in the overall appearance of the hand as well as the function (each day he could advanced practice professional more firmly, etc). At discharge it was recommended that he continue on IV antibiotics for at least 1 more week. Thus, he will receive rocephin 1 gm daily x 7 days as well as vancomycin on hemodialysis days. A vancomycin trough level will be drawn Monday AM, 06/17/17, followed by a dose of IV vancomycin later that day following dialysis. After the IV antibiotic course is complete a decision will need to be made about continuing IV antibiotics, transitioning to PO antibiotics, or stopping them completely. 2. CKD stage 5, now with probable ESRD - HD initiated 06/12/17. He received 3 HD treatments while hospitalized. Plan is for outpatient HD in [place] at [facility] with first session on 06/17/17. He will follow a //Monday schedule and be followed by Dr. Lex Mora, [facility] Nephrology. 3. suspected RELEASE MANAGER - dx late March. On tapering steroids under direction of Dr. Greyson Ferreira. Was on 30mg prior to this admission. He received a steroid burst while hospitalized. He will resume 30mg once daily at discharge and continue to taper every 2-3 weeks. Most recent chest CT with resolution of infiltrates. RELEASE MANAGER was thought 2nd to opdivo chemotherapy. Follow up with Dr. Ferreira in 2-3 weeks is recommended. 4. stage 4 renal cell ca - remains on oral chemotherapy under the direction of Dr. Ulises Dao. 5. chronic pain syndrome - he will continue methadone TID + fentanyl patch. 6. anemia - 2nd to #2, #4 - h/h acceptable at this time with discharge hemoglobin of 9.2 He received IV iron per nephrology. 7. HTN - uncontrolled, likely due to pain, ESRD status, side effects of his chemotherapy agent, prednisone use, etc. He remains on a complex regimen of medication for such. 8. hypoglycemia in the setting of T2DM - former resolved with adjustment in his insulin regimen. At discharge it was recommended he lower his lantus dose from 25 units daily to 20 units daily. Total Time Spent: Greater than 30 minutes This includes examination of the patient, discharge planning, medication reconciliation, and communication with other providers. Discharge Instructions Please refer to the electronic Patient Visit Report (Discharge Instructions) for additional information. Follow-Up 1. hemodialysis - 06/17/17 - [facility] in [place] 2[address] Dr. Jaime Marie, orthopedics, in [address] Lex Mora, nephrology, within [address] Greyson Ferreira, pulmonary, within 2-[address] Toby Muller, PCP, within 1-2 weeks Additional Copies To Hunter Dao, D.O.; Toby Muller M.D.; Jaime Marie M.D.; Pauline Norwood MD; Lex Mora D.O.; Greyson Ferreira,
== END 2017-06-14 20:03 | disposition home health service (06) | DRG 602 ==
LOC: C.4E 19:59 → EDBEDREQ 20:15 → ENRESERV 20:38 → C.2T 21:01
PROVIDERS: ADMIT Internal Medicine; ATTEND Internal Medicine
PROC: 5A1D70Z Performance of Urinary Filtration, Intermittent, Less than 6 Hours Per Day (ICD-10-PCS; principal; 2017-06-14)
DX: L03.114 Cellulitis of left upper limb (principal); N18.6 End stage renal disease; I12.0 Hypertensive chronic kidney disease with stage 5 chronic kidney disease or end stage renal disease; G93.41 Metabolic encephalopathy; C77.9 Secondary and unspecified malignant neoplasm of lymph node, unspecified; S61.412A Laceration without foreign body of left hand, initial encounter; Z85.528 Personal history of other malignant neoplasm of kidney; Z90.5 Acquired absence of kidney; Z99.2 Dependence on renal dialysis; Y92.019 Unspecified place in single-family (private) house as the place of occurrence of the external cause; W31.1XXA Contact with metalworking machines, initial encounter; D64.9 Anemia, unspecified; F32.9 Major depressive disorder, single episode, unspecified; E11.649 Type 2 diabetes mellitus with hypoglycemia without coma; E78.5 Hyperlipidemia, unspecified; G89.4 Chronic pain syndrome; E88.09 Other disorders of plasma-protein metabolism, not elsewhere classified; Z85.828 Personal history of other malignant neoplasm of skin; Z83.3 Family history of diabetes mellitus; Z82.49 Family history of ischemic heart disease and other diseases of the circulatory system; Z79.52 Long term (current) use of systemic steroids

== ENCOUNTER 2017-06-20 14:05 | Observation (INO) | payer OTHER ==
[~2017-06-20] VITALS: Ht 180.3 cm; Wt 83.2 kg
[~2017-06-20 14:05] MED LIST changes: +CABO60TA PO; +CEFT1INJ26 IV; -LCTXP PO; +METH10TA PO; -METH5TAB2 PO; +PRED10TA PO; -PRED20TA PO; +VANC1INJ94 IV
--- NOTE | 2017-06-20 14:29 | EMERGENCY ROOM VISIT NOTE ---
History Report prepared by Aissatou: Jewell Law Under the Supervision of: Dr. Dieter Nazario M.D. First contact with patient: 14:09 Chief Complaint: HAND PAIN/INJURY Stated Complaint: SWELLING/PAIN TO LEFT HAND History of Present Illness The patient is a 61 year old male who presents to the Emergency Room with complaints of worsening left hand pain starting 2 weeks ago. He injured his hand 2 weeks ago with a drill bit. He was in the hospital for 4-5 days for his hand. The hand appeared improved when he was discharged, but was still red and swollen. The patient is currently still on IV vancomycin, IV ceftriaxone, and prednisone. Last night, his hand started worsening again. The redness and swelling extends into his wrist. He has pain with extending his fingers. He has not had any fever. The patient is a dialysis patient. His dialysis is done in the left arm. He is supposed to get dialysis today, but has been rescheduled for tomorrow. He currently has renal cancer. Source of History: patient Onset: 2 weeks ago Position: hand (left) Quality: other (redness, swelling) Timing: worsening Associated Symptoms: No fevers Review of Systems See HPI for pertinent positives & negatives. A total of 10 systems reviewed and were otherwise negative. 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 (7) Colitis (8) Diabetes type 2, controlled (9) H/O unilateral nephrectomy (10) Hypertension (11) Kidney disease, chronic, stage IV (GFR 15-29 ml/min) (12) Pneumonia (13) Pneumonitis (14) Pyelonephritis (15) Renal cell carcinoma (16) Renal mass, left (17) Shortness of breath Family History Cervical cancer Diabetes mellitus Heart disease Hypertension Myocardial infarction Pancreatic cancer Prostate cancer Social History Smoking Status: Never Smoker Alcohol Use: none Drug Use: none Marital Status: single Housing Status: lives alone Occupation Status: disabled Current/Historical Medications Scheduled Amlodipine (Norvasc), 10 MG PO QAM Aspirin (Aspirin Ec), 81 MG PO QAM Cabozantinib S-Malate (Cabometyx), 60 MG PO QAM Calcitriol (Calcitriol), 0.25 MCG PO Q2D Calcium Carbonate (Tums), 500 MG PO WM Ceftriaxone Sodium (Rocephin), 1 GM IV DAILY Fentanyl (Fentanyl), 25 PATCH TOP CQ72HR Furosemide (Furosemide), 40 MG PO QAM Hydralazine Hcl (Apresoline), 100 MG PO TID Insulin Glargine (Lantus Solostar), 14 UNITS SC HS Insulin Isophane (Human) (Humulin N Kwikpen), UNITS SC TID Methadone HCl (Methadone HCl), 10 MG PO TID Metoprolol Tartrate (Lopressor) (Lopressor), 100 MG PO BID Oxycodone Hcl (Oxycodone Hcl), 10 MG PO TID Prednisone Tab (Prednisone), 10 MG PO TID Simvastatin (Zocor), 20 MG PO QPM Tamsulosin Hcl (Flomax), 0.4 MG PO HS Vancomycin HCl in Sodium Chlor (VANCOMYCIN in NSS), 500 MG IV UD Scheduled PRN Polyethylene (Miralax), 17 GM PO DAILY PRN for Constipation Allergies Coded Allergies: Iodinated Diagnostic Agents (Verified Allergy, Unknown, oil based, severe headaches, 06/20/17) EVENT OCCURED IN 1971, PT STATES HE HAS HAD 3 DIFFERENT WATER BASED IVP DYES WITH NO ISSUE Physical Exam Vital Signs Date Time Temp Pulse Resp B/P (MAP) Pulse Ox O2 Delivery O2 Flow Rate FiO2 06/20/17 15:32 92 20 157/85 95 Room Air 06/20/17 14:06 36.5 93 16 154/88 91 Room Air Physical Exam GENERAL: Patient is in no acute distress. HEENT: No acute trauma, normocephalic atraumatic, mucous membranes moist, no nasal congestion, no scleral icterus. NECK: No stridor, no adenopathy, no meningismus, trachea is midline. LUNGS: Clear to auscultation bilaterally, no wheeze, no rhonchi, breath sounds equal. HEART: Without murmurs gallops or rubs, regular rate and rhythm. ABDOMEN: Soft, nontender, bowel sounds positive, no hernias, no peritonitis. EXTREMITIES: SHANNA has an AV fistula in the left AC with a palpable thrill. Patient's distal left arm, wrist, and hand are erythematous, warm to touch, and swollen. No obvious drainage. Pain worsens with wrist extension and finger extension. NEUROLOGIC: Oriented x 3, no acute motor or sensory deficits, no focal weakness. SKIN: No rash, no jaundice, no diaphoresis. Medical Decision & Procedures ER Provider Diagnostic Interpretation: Radiology results as stated below per my review and radiologist interpretation: LEFT FOREARM/HAND CT CT DOSE: 257.77 mGy.cm HISTORY: cellulitis, poss abscess or nec/fasc of hand and dist arm TECHNIQUE: Multiaxial CT images of the left arm from the elbows through the fingers were performed and reformatted in the sagittal and coronal plane without the use of contrast. A dose lowering technique was utilized adhering to the principles of ALARA. COMPARISON: None. FINDINGS: Diffuse subcutaneous edema seen from the elbow through the hand and at the posterior forearm and elbow. No evidence for an elbow effusion. No significant abnormality within the deep soft tissues. No loculated fluid collections identified on this noncontrast study to suggest an abscess. Mild skin thickening of the forearm/hand. No soft tissue gas identified. No fracture or dislocation. No areas of bony destruction to suggest osteomyelitis. IMPRESSION: 1. Diffuse subcutaneous edema seen from the elbow through the hand. This is nonspecific but could represent a cellulitis. 2. No soft tissue gas identified at this time. 3. No evidence for osteomyelitis. Electronically signed by: Harris Cordova M.D. 06/20/2017 3:32 PM Dictated Date/Time: 06/20/2017 3:24 PM Laboratory Results 06/20/17 14:33 Red Blood Count 3.39, Mean Corpuscular Volume 86.7, Mean Corpuscular Hemoglobin 28.3, Mean Corpuscular Hemoglobin Concent 32.7, Mean Platelet Volume 9.9, Neutrophils (%) (Auto) 90.3, Lymphocytes (%) (Auto) 4.6, Monocytes (%) (Auto) 4.0, Eosinophils (%) (Auto) 0.1, Basophils (%) (Auto) 0.1, Neutrophils # (Auto) 9.22, Lymphocytes # (Auto) 0.47, Monocytes # (Auto) 0.41, Eosinophils # (Auto) 0.01, Basophils # (Auto) 0.01 06/20/17 14:33 Test 06/20/17 14:33 White Blood Count 10.21 K/uL (4.8-10.8) Red Blood Count 3.39 M/uL (4.7-6.1) Hemoglobin 9.6 g/dL (14.0-18.0) Hematocrit 29.4 % (42-52) Mean Corpuscular Volume 86.7 fL (80-100) Mean Corpuscular Hemoglobin 28.3 pg (25-34) Mean Corpuscular Hemoglobin Concent 32.7 g/dl (32-36) Platelet Count 131 K/uL (130-400) Mean Platelet Volume 9.9 fL (7.4-10.4) Neutrophils (%) (Auto) 90.3 % Lymphocytes (%) (Auto) 4.6 % Monocytes (%) (Auto) 4.0 % Eosinophils (%) (Auto) 0.1 % Basophils (%) (Auto) 0.1 % Neutrophils # (Auto) 9.22 K/uL (1.4-6.5) Lymphocytes # (Auto) 0.47 K/uL (1.2-3.4) Monocytes # (Auto) 0.41 K/uL (0.11-0.59) Eosinophils # (Auto) 0.01 K/uL (0-0.5) Basophils # (Auto) 0.01 K/uL (0-0.2) RDW Standard Deviation 61.6 fL (36.4-46.3) RDW Coefficient of Variation 20.5 % (11.5-14.5) Immature Granulocyte % (Auto) 0.9 % Immature Granulocyte # (Auto) 0.09 K/uL (0.00-0.02) Nucleated RBC Absolute Count (auto) 0.29 K/uL (0-0) Nucleated Red Blood Cells % 2.9 % Basophilic Stippling OCCASIONAL Anisocytosis PRESENT Prothrombin Time 10.4 SECONDS (9.0-12.0) Prothromb Time International Ratio 1.0 (0.9-1.1) Activated Partial Thromboplast Time 27.1 SECONDS (21.0-31.0) Partial Thromboplastin Ratio 1.0 Anion Gap 9.0 mmol/L (3-11) Est Creatinine Clear Calc Drug Dose 19.5 ml/min Estimated GFR () 15.7 Estimated GFR (Non- 13.5 BUN/Creatinine Ratio 17.1 (10-20) Uric Acid 7.2 mg/dl (2.6-7.2) Calcium Level 7.9 mg/dl (8.5-10.1) Magnesium Level 2.3 mg/dl (1.8-2.4) Total Bilirubin 0.2 mg/dl (0.2-1) Aspartate Amino Transf (AST/SGOT) 41 U/L (15-37) Alanine Aminotransferase (ALT/SGPT) 47 U/L (12-78) Alkaline Phosphatase 83 U/L (45-117) Total Protein 4.9 gm/dl (6.4-8.2) Albumin 1.9 gm/dl (3.4-5.0) Globulin 2.9 gm/dl (2.5-4.0) Albumin/Globulin Ratio 0.6 (0.9-2) Laboratory results reviewed by me. Medications Administered Medications (Trade) Dose Ordered Sig/Edward Route Start Time Stop Time Status Last Admin Dose Admin Piperacillin Sod/ Tazobactam Sod (Zosyn Iv) 4.5 gm NOW STAT IV 06/20/17 14:42 06/20/17 14:45 DC 06/20/17 15:30 4.5 GM Daptomycin 400 mg/ Syringe 8 ml @ 4 mls/min ONE ONCE IV 06/20/17 15:00 06/20/17 15:05 DC 06/20/17 16:08 4 MLS/MIN ECG Indication: other Rate (beats per minute): 89 Rhythm: normal sinus Findings: no acute ischemic change, no ectopy ED Course 1412: The patient was evaluated in room B11B. A complete history and physical exam was performed. 1440: I discussed the patient's case [facility]. He recommends Dapto and Zosyn. He recommends the patient stay in the hospital. 1442: Zosyn IV 4.5 gm IV. 1450: Upon reexamination the patient is stable. I discussed results and treatment plan with the patient. He verbalizes agreement and understanding. The patient will be evaluated for further management. 1456: I discussed the patient's case with Dr. Lin [facility] hospitalist. The patient will be evaluated for further management. 1500: Daptomycin 400 mg/Syringe 8 ml @ 4 mls/min IV. Medical Decision Differential diagnoses considered include failed outpatient treatment, tenosynovitis, septic joint, cellulitis, necrotizing fasciitis, abscess, anemia , electrolyte imbalance. There is no leukocytosis. The patient is anemic but this is baseline looking back at previous testing. Renal panel testing shows a high creatinine consistent with his need for dialysis. No significant electrolyte abnormalities requiring correction. There is no hepatitis. Upper extremity CT scan shows a left arm cellulitis, no evidence for necrotizing fasciitis. Point of care lactic acid level was ordered, this result is pending. I discussed the case with Dr. Philippe of infectious disease. He recommended IV daptomycin and IV Zosyn, these medications were ordered. The patient requires admission/observation. He is failing outpatient IV antibiotic therapy for his left arm cellulitis. I did speak to the patient and case management. The on-call hospitalist was consulted. Medication Reconcilliation Current Medication List: was personally reviewed by me Blood Pressure Screening Patient's blood pressure: Elevated blood pressure Blood pressure disposition: Elevated BP felt to be situational Consults Time Called: 1429 Consulting Physician: Dr. Philippe [facility] infectious diseases Returned Call: 1440 I discussed the patient's case with him. He recommends Dapto and Zosyn. He recommends the patient stay in the hospital. Additional Consults: Time Called: 1450 Consulted Physician: [facility] Returned Call: 1452 Additional Comments: Discussed the patient's case. The patient will be evaluated for further management. Impression Primary Impression: Left arm cellulitis Additional Impressions: Cellulitis of left hand Failure of outpatient treatment Scribe Attestation The scribe's documentation has been prepared under my direction and personally reviewed by me in its entirety. I confirm that the note above accurately reflects all work, treatment, procedures, and medical decision making performed by me. Departure Information Dispostion Being Evaluated By Hospitalist Referrals Salvador Muller M.D. (PCP) Patient Instructions My [facility] Problem Qualifiers
[2017-06-20] MEDS ORDERED: PIPERACILLIN/TAZOBACTAM 4.5 GM/100ML D5W IV STA (14:42)
[2017-06-20] MEDS ORDERED: DAPTOmycin IV 500 MG in SODIUM CHLORIDE 0.9% 50ML 50 ML IV STA (14:42)
[2017-06-20 14:58] LABS: HEMATOCRIT 29.4 % (42-52); MEAN CELL VOLUME 86.7 fL (80-100); MEAN CORPUSCULAR HEMOGLOBIN 28.3 pg (25-34); MEAN CORPUSCULAR HGB CONC 32.7 g/dl (32-36); MEAN PLATELET VOLUME 9.9 fL (7.4-10.4); PLATELET COUNT 131 K/uL (130-400); RED BLOOD COUNT 3.39 M/uL (4.7-6.1); WHITE BLOOD COUNT 10.21 K/uL (4.8-10.8)
[2017-06-20] MEDS ORDERED: DAPTOmycin IV 400 MG in SYRINGE 0 ML IV ONE (15:00)
[2017-06-20 15:09] LABS: PROTHROMBIN TIME (PATIENT) 10.4 SECONDS (9.0-12.0)
[2017-06-20] MEDS ORDERED: PIPERACILL/TAZOBAC CONSULT ACTIVE PRN (15:15)
[2017-06-20 15:17] LABS: BUN/CREATININE RATIO 17.1 (10-20); CALCIUM 7.9 mg/dl (8.5-10.1); CREATININE 4.34 mg/dl (0.60-1.40); MAGNESIUM 2.3 mg/dl (1.8-2.4); POTASSIUM 4.3 mmol/L (3.5-5.1); URIC ACID 7.2 mg/dl (2.6-7.2)
[2017-06-20] MEDS ORDERED: INSU1INJ23 SC (15:17)
[2017-06-20] MEDS ORDERED: PRED10TA PO (15:17)
[2017-06-20] MEDS ORDERED: INSDGIPEN SC (15:17)
[2017-06-20] MEDS ORDERED: CALC500C3 PO (15:17)
[2017-06-20] MEDS ORDERED: LSX40 PO (15:17)
[2017-06-20] MEDS ORDERED: CABO60TA PO (15:17)
[2017-06-20] MEDS ORDERED: MTH10 PO (15:17)
[2017-06-20 15:20] LABS: ALB/GLOB RATIO 0.6 (0.9-2)
[2017-06-20] MEDS ORDERED: METO100T14 PO (15:26)
--- NOTE | 2017-06-20 15:31 | History and Physical ---
History & Physical Date & Time of Service: Jun 20, 2017 at 15:27 Chief Complaint: Swelling/Pain To Left Hand Primary Care Physician: Salvador Muller M.D. History of Present Illness Source: patient Mr. 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 Patient was recently admitted for L hand infection caused by a drill bit puncture x 2 weeks ago. He has almost completed his antibiotic course of Rocephin and Vancomycin. Course was to be completed on 06/22. He denies missed dosing of antibiotics. Does state that home services for transfusion only came for a couple days but does confirm his daughter was administering antibiotics. He complains of increased edema and erythema and states the erythema was not present on the wrist on discharge. Has associated generalized fatigue and poor appetite that has been chronic but he feels worsened over the past couple days. Family at bedside reports intermittent confusion and unsteadiness in his gait. He denies new trauma to this hand. He denies a history of gout. He continues to have some dexterity of his fingers but has some limited flexion and has tenderness with extension. Patient was due for dialysis today however he missed this appointment and the plan is to reschedule this for tomorrow. He is actively being treated for renal cell carcinoma with Cabometyx daily. Past Medical/Surgical History 1. Metastatic RCC S/P L Nephrectomy 2. T2DM 3. ESRD on HD 4. Chronic Anemia 5. HTN 6. HLD 7. BPH 8. 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 Family History Cervical cancer Diabetes mellitus Heart disease Hypertension Myocardial infarction Pancreatic cancer Prostate cancer Social History Smoking Status: Never Smoker Smokeless Tobacco Use: No Alcohol Use: none Drug Use: none Marital Status: single Housing status: lives alone Occupational Status: disabled Immunizations History of Influenza Vaccine: Yes Influenza Vaccine Date: May 14, 2015 History of Tetanus Vaccine?: Yes Tetanus Immunization Date: Sep 14, 2011 History of Pneumococcal: Yes Pneumococcal Date: Sep 14, 2013 History of Hepatitis B Vaccine: No Allergies Coded Allergies: Iodinated Diagnostic Agents (Verified Allergy, Unknown, oil based, severe headaches, 06/20/17) EVENT OCCURED IN 1971, PT STATES HE HAS HAD 3 DIFFERENT WATER BASED IVP DYES WITH NO ISSUE Home Medications Scheduled Amlodipine (Norvasc), 10 MG PO QAM Aspirin (Aspirin Ec), 81 MG PO QAM Cabozantinib S-Malate (Cabometyx), 60 MG PO QAM Calcitriol (Calcitriol), 0.25 MCG PO Q2D Calcium Carbonate (Tums), 500 MG PO WM Ceftriaxone Sodium (Rocephin), 1 GM IV DAILY Fentanyl (Fentanyl), 25 PATCH TOP [id number] Furosemide (Furosemide), 40 MG PO QAM Hydralazine Hcl (Apresoline), 100 MG PO TID Insulin Glargine (Lantus Solostar), 14 UNITS SC HS Insulin Isophane (Human) (Humulin N Kwikpen), UNITS SC TID Methadone HCl (Methadone HCl), 10 MG PO TID Metoprolol Tartrate (Lopressor) (Lopressor), 100 MG PO BID Oxycodone Hcl (Oxycodone Hcl), 10 MG PO TID Prednisone Tab (Prednisone), 10 MG PO TID Simvastatin (Zocor), 20 MG PO QPM Tamsulosin Hcl (Flomax), 0.4 MG PO HS Vancomycin HCl in Sodium Chlor (VANCOMYCIN in NSS), 500 MG IV UD Scheduled PRN Polyethylene (Miralax), 17 GM PO DAILY PRN for Constipation Review of Systems Constitutional: + fatigue, No fever, No chills ENT: No nasal symptoms, No sore throat, No trouble swallowing Respiratory: No cough, No shortness of breath Cardiovascular: No chest pain, No palpitations Abdomen: No pain, No nausea, No vomiting, No diarrhea, No constipation, No GI bleeding Musculoskeletal: + swelling (chronic b/l lower extremities), No calf pain Genitourinary - Male: No hematuria, No dysuria Hematologic / Lymphatic: + problem reported (bruising - chronic steroids) Integumentary: + problem reported (worsening redness of L hand and wrist) Physical Exam Vital Signs Date Time Temp Pulse Resp B/P (MAP) Pulse Ox O2 Delivery O2 Flow Rate FiO2 06/20/17 14:06 36.5 93 16 154/88 91 Room Air General Appearance: WD/WN, no apparent distress Head: normocephalic, atraumatic Eyes: sclerae normal ENT: hearing grossly normal Neck: supple, no JVD, trachea midline Respiratory/Chest: lungs clear, normal breath sounds, no respiratory distress, no accessory muscle use, + pertinent finding (port in R upper chest - skin without erythema or drainage) Cardiovascular: regular rate, rhythm, no gallop, no murmur Abdomen/GI: normal bowel sounds, non tender, soft Extremities/Musculoskelatal: + swelling (2+ pitting edema b/l lower extremities with L > R), + pertinent finding (edema and mild erythema of L hand up to wrist, pitting edema, limited flexion of all fingers) Neurologic/Psych: alert, oriented x 3 Skin: + pertinent finding (scattered scabs and brusing on upper extremities) Diagnostics Laboratory Results Results Past 24 Hours Test 06/20/17 14:33 Range/Units White Blood Count 10.21 4.8-10.8 K/uL Red Blood Count 3.39 4.7-6.1 M/uL Hemoglobin 9.6 14.0-18.0 g/dL Hematocrit 29.4 42-52 % Mean Corpuscular Volume 86.7 80-100 fL Mean Corpuscular Hemoglobin 28.3 25-34 pg Mean Corpuscular Hemoglobin Concent 32.7 32-36 g/dl Platelet Count 131 130-400 K/uL Mean Platelet Volume 9.9 7.4-10.4 fL RDW Standard Deviation 61.6 36.4-46.3 fL RDW Coefficient of Variation 20.5 11.5-14.5 % Nucleated RBC Absolute Count (auto) 0.29 0-0 K/uL Nucleated Red Blood Cells % 2.9 % Prothrombin Time 10.4 9.0-12.0 SECONDS Prothromb Time International Ratio 1.0 0.9-1.1 Activated Partial Thromboplast Time 27.1 21.0-31.0 SECONDS Partial Thromboplastin Ratio 1.0 Sodium Level 138 136-145 mmol/L Potassium Level 4.3 3.5-5.1 mmol/L Chloride Level 104 98-107 mmol/L Carbon Dioxide Level 26 21-32 mmol/L Anion Gap 9.0 3-11 mmol/L Blood Urea Nitrogen 74 7-18 mg/dl Creatinine 4.34 0.60-1.40 mg/dl Est Creatinine Clear Calc Drug Dose 19.5 ml/min Estimated GFR () 15.7 Estimated GFR (Non- 13.5 BUN/Creatinine Ratio 17.1 10-20 Random Glucose 168 70-99 mg/dl Uric Acid 7.2 2.6-7.2 mg/dl Calcium Level 7.9 8.5-10.1 mg/dl Magnesium Level 2.3 1.8-2.4 mg/dl Total Bilirubin 0.2 0.2-1 mg/dl Aspartate Amino Transf (AST/SGOT) 41 15-37 U/L Alanine Aminotransferase (ALT/SGPT) 47 12-78 U/L Alkaline Phosphatase 83 45-117 U/L Total Protein 4.9 6.4-8.2 gm/dl Albumin 1.9 3.4-5.0 gm/dl Globulin 2.9 2.5-4.0 gm/dl Albumin/Globulin Ratio 0.6 0.9-2 Microbiology Results 06/20/17 Blood Culture, Received Pending 06/20/17 Blood Culture, Received Pending Diagnostic Radiology LEFT FOREARM/HAND CT FINDINGS: Diffuse subcutaneous edema seen from the elbow through the hand and at the posterior forearm and elbow. No evidence for an elbow effusion. No significant abnormality within the deep soft tissues. No loculated fluid collections identified on this noncontrast study to suggest an abscess. Mild skin thickening of the forearm/hand. No soft tissue gas identified. No fracture or dislocation. No areas of bony destruction to suggest osteomyelitis. IMPRESSION: 1. Diffuse subcutaneous edema seen from the elbow through the hand. This is nonspecific but could represent a cellulitis. 2. No soft tissue gas identified at this time. 3. No evidence for osteomyelitis. EKG Normal sinus rhythm Possible Left atrial enlargement Borderline ECG When compared with ECG of 11-JUN-2017 09:36, No significant change was found Confirmed by DEXTER TIDWELL ([id number]) on 06/20/2017 3:28:43 PM Impression Assessment and Plan Mr. 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 Patient was recently admitted for L hand infection caused by a drill bit puncture x 2 weeks ago. He has almost completed his antibiotic course of Rocephin and Vancomycin. L Hand Cellulitis: Possible Failure of Current Treatment: - Home set-up for IV Rocephin and Vanc - denying missed doses as daughter has been administering -- Mentioned home services only came 2-3 days and they were needing someone to write an Rx for continued antibiotics? Appears possibly that the purpose of visits was to teach family to administer? 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 Ferreira Metastatic RCC S/P L Nephrectomy: [facility] - Cabometyx 60 mg daily - non-formulary and family will bring in - Pain control with Methadone 10 mg TID, Fentanyl, and Oxycodone 10 mg TID - Miralax daily HTN: - Amlodipine 10 mg daily (may be contributing to extremity edema?), Lopressor 100 mg BID, and Hydralazine 100 mg TID -- Previously on Toprol XL 100 mg BID but most recent script for Lopressor - discussed with outpatient pharmacy - Lasix 40 mg daily HLD: - Simvastatin 20 mg daily BPH: - Flomax 0.4 mg HS DVT Prophylaxis: Heparin 5000 units Q12H Code Status: FULL RESUSCITATION Disposition: - From home Level of Care Med/Surg Advanced Directives Existing Advance Directive: Yes Resuscitation Status FULL RESUSCITATION VTE Prophylaxis VTE Risk Assessment Done? Y/N: Yes Risk Level: Moderate Given or contraindicated: Unfractionated heparin SQ Social Service Consult Cancer Patient Under [place] Reviewed: Pt Seen/Exam by Me History Pt and daughter agree that his L UE redness and swelling is much improved already s/p abx in the ED. Still with pain, but not as much and moving less into his wrist. Pt did miss his vanco dosing today after missing dialysis but did receive daily rocephin as prescribed. His last vanco was Monday with his HD, as prescribed. No other issues. He has a low appetite but this is not unusual for him. He tolerates what he eats though. No chest pain or SOB. Agree with HPI/ROS as noted. General Appearance: WD/WN, no apparent distress Respiratory: normal breath sounds, no respiratory distress Cardiovascular: normal peripheral pulses, regular rate, rhythm Gastrointestinal: non tender, soft Extremities: non-tender, no pedal edema Neurologic/Psychiatric: alert, normal mood/affect, oriented x 3 Skin Characteristics: warm/dry, other (slight pink discoloration around L knuckles and patchy extensor surface, mild swelling that appears improved given laxity of skin) Assessment/Plan Agree with plan as outlined above L UE cellulitis that may have failed rocephin/vanco tx ID contacted by ED physician and recs for dapto/zosyn and this has already shown improvement Formal ID c/s pending PICC in place
--- NOTE | 2017-06-20 15:33 | DIAGNOSTIC IMAGING REPORT ---
LEFT FOREARM/HAND CT CT DOSE: 257.77 mGy.cm HISTORY: cellulitis, poss abscess or nec/fasc of hand and dist arm TECHNIQUE: Multiaxial CT images of the left arm from the elbows through the fingers were performed and reformatted in the sagittal and coronal plane without the use of contrast. A dose lowering technique was utilized adhering to the principles of ALARA. COMPARISON: None. FINDINGS: Diffuse subcutaneous edema seen from the elbow through the hand and at the posterior forearm and elbow. No evidence for an elbow effusion. No significant abnormality within the deep soft tissues. No loculated fluid collections identified on this noncontrast study to suggest an abscess. Mild skin thickening of the forearm/hand. No soft tissue gas identified. No fracture or dislocation. No areas of bony destruction to suggest osteomyelitis. IMPRESSION: 1. Diffuse subcutaneous edema seen from the elbow through the hand. This is nonspecific but could represent a cellulitis. 2. No soft tissue gas identified at this time. 3. No evidence for osteomyelitis. Electronically signed by: Harris Cordova M.D. 06/20/2017 3:32 PM Dictated Date/Time: 06/20/2017 3:24 PM
[2017-06-20 15:37] LABS: ANISOCYTOSIS PRESENT; BASO % 0.1 %; BASO ABS # 0.01 K/uL (0-0.2); COMPLETE YES; EOS % 0.1 %; IG% 0.9 %; LYMPH % 4.6 %; LYMPH ABS # 0.47 K/uL (1.2-3.4); NEUT % 90.3 %
[2017-06-20] MEDS ORDERED: ACETAMINOPHEN 325 MG TAB PO PRN (16:30)
[2017-06-20] MEDS ORDERED: GLUCOSE 10 TABS/TUBE PO PRN (16:30)
[2017-06-20] MEDS ORDERED: ONDANSETRON INJ 2 MG/ML 2 ML VIAL IV PRN (16:30)
[2017-06-20] MEDS ORDERED: ALUMINUM/MAGNESIUM/SIMETH (MAALOX MAX) 30 ML UDC PO PRN (16:30)
[2017-06-20] MEDS ORDERED: FENTANYL TOP SCH (16:30)
[2017-06-20] MEDS ORDERED: MAGNESIUM HYDROXIDE SUSP 30 ML UDC PO PRN (16:30)
[2017-06-20] MEDS ORDERED: GLUCAGON FOR INJ 1 MG VIAL SQ PRN (16:30)
[2017-06-20] MEDS ORDERED: DEXTROSE 50% 50 ML SYR IV PRN (16:30)
[2017-06-20] MEDS ORDERED: GLUCOSE 40% GEL 15 GM TUBE PO PRN (16:30)
[2017-06-20] MEDS ORDERED: POLYETHYLENE (MIRALAX) 17 GM PACK PO PRN (17:15)
[2017-06-20] MEDS: HEPARIN SOD 5000 UNIT/0.5 ML CARP SQ SCH (18:27)
[2017-06-20 18:33] VITALS: BP 179/96; PULSE 81; TEMP 36.8; O2SAT 98; Ht 180.3 cm; Wt 83.2 kg
[2017-06-20] MEDS: CALCIUM CARBONATE 500 MG CHEWABLE PO SCH (19:14)
[2017-06-20 19:30] VITALS: BP 175/83; PULSE 89; TEMP 36.6; O2SAT 96
[2017-06-20] MEDS ORDERED: OXYCODONE HCL IR 5 MG TAB (IMMEDIATE RELEASE) PO SCH (20:00)
[2017-06-20] MEDS: INSULIN ASPART 100 UNITS/ML 3 ML PEN SC SCH (20:33)
[2017-06-20] MEDS: INSULIN GLARGINE SOLOSTAR 100 UNITS/ML 3 ML PEN SC SCH (20:33)
[2017-06-20] MEDS: METHADONE HCL 10 MG TAB PO SCH (20:35)
[2017-06-20] MEDS: METOPROLOL TARTRATE 100 MG TAB PO SCH (20:35)
[2017-06-20] MEDS: SIMVASTATIN 20 MG TAB PO SCH (20:36)
[2017-06-20] MEDS: OXYCODONE HCL IR 5 MG TAB (IMMEDIATE RELEASE) PO SCH (20:36)
[2017-06-20] MEDS: TAMSULOSIN HCL 0.4 MG CAP PO SCH (20:36)
[2017-06-20 23:16] VITALS: BP 176/88; PULSE 91; TEMP 36.8; O2SAT 94
[2017-06-20] MEDS: CHECK FENTANYL PATCH PLACEMENT SCH (23:17)
[2017-06-21] VITALS (23 sets, daily range): BP systolic 117–178; BP diastolic 72–103; PULSE 69–84; TEMP 36.2–36.7; O2SAT 93–96
[2017-06-21] MEDS: PIPERACILL/TAZOBAC IV 3.375 GM in DEXTROSE 5% 100ML IV SCH ×2 (03:48→18:05)
[2017-06-21] MEDS ORDERED: MoRPHine SULFATE 2 MG/ML CARP IV STA (04:33)
[2017-06-21] MEDS ORDERED: NURSING VERBAL MED ORDER ONE (04:45)
[2017-06-21] MEDS: CABOZANTINIB S MALATE 60 MG PO SCH (05:08)
[2017-06-21] MEDS: HEPARIN SOD 5000 UNIT/0.5 ML CARP SQ SCH ×2 (05:14→18:10)
[2017-06-21 06:13] LABS: MEAN CORPUSCULAR HGB CONC 32.7 g/dl (32-36)
[2017-06-21 06:24] LABS: HEMATOCRIT 26.6 % (42-52); MEAN CELL VOLUME 86.6 fL (80-100); MEAN CORPUSCULAR HEMOGLOBIN 28.3 pg (25-34); RED BLOOD COUNT 3.07 M/uL (4.7-6.1); WHITE BLOOD COUNT 8.68 K/uL (4.8-10.8)
[2017-06-21 06:43] LABS: MEAN PLATELET VOLUME 9.8 fL (7.4-10.4); PLATELET COUNT 110 K/uL (130-400)
[2017-06-21 06:44] LABS: PLT ESTIMATE DECREASED
[2017-06-21 06:49] LABS: BUN/CREATININE RATIO 17.1 (10-20); CALCIUM 7.5 mg/dl (8.5-10.1); CREATININE 4.61 mg/dl (0.60-1.40); MAGNESIUM 2.4 mg/dl (1.8-2.4); POTASSIUM 3.9 mmol/L (3.5-5.1)
[2017-06-21] MEDS ORDERED: CABOZANTINIB S MALATE 60 MG PO SCH (08:00)
[2017-06-21] MEDS: CALCIUM CARBONATE 500 MG CHEWABLE PO SCH ×3 (08:23→18:05)
[2017-06-21] MEDS: CALCITRIOL 0.25 MCG CAP PO SCH (08:24)
[2017-06-21] MEDS: ASPIRIN 81 MG ECTAB PO SCH (08:24)
[2017-06-21] MEDS: FUROSEMIDE 40 MG TAB PO SCH (08:25)
[2017-06-21] MEDS: METOPROLOL TARTRATE 100 MG TAB PO SCH ×2 (08:25→20:12)
[2017-06-21] MEDS: AMLODIPINE BESYLATE 5 MG TAB PO SCH (08:25)
[2017-06-21] MEDS: CHECK FENTANYL PATCH PLACEMENT SCH ×2 (08:26→18:06)
[2017-06-21] MEDS: INSULIN ASPART 100 UNITS/ML 3 ML PEN SC SCH ×4 (08:29→20:59)
[2017-06-21] MEDS: METHADONE HCL 10 MG TAB PO SCH ×3 (08:35→20:12)
[2017-06-21] MEDS: OXYCODONE HCL IR 5 MG TAB (IMMEDIATE RELEASE) PO SCH ×3 (08:36→20:10)
[2017-06-21] MEDS: POLYETHYLENE (MIRALAX) 17 GM PACK PO SCH (08:37)
[2017-06-21] MEDS ORDERED: EPOETIN ALFA 20,000 UNITS/ML VIAL IV SCH (09:30)
--- NOTE | 2017-06-21 10:12 | Nephrology Consultation ---
Nephrology Consultation Date & Providers Date of Consultation: Jun 21, 2017. Primary Care Provider: Salvador Muller M.D. Referring Provider: Reason for Consultation ESRD History of Present Illness Mr. 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 He started on hemodialysis on June 12 during a recent hospital admission. Mr. Christy has ESRD attributed to diabetic nephropathy, history of nephrectomy and hypertensive nephrosclerosis. He has been receiving HD on a TTS scheduled. Last HD was on Monday at [facility] in [place]. He dialyzes with a L UE AVF. There have been no complications with dialysis treatments. He missed dialysis yesterday due to his hospitalization. Mr. Christy presented to the ED yesterday with worsening L hand pain and erythema. He was evaluated in the pain management clinic earlier in the day. Due to concerns for uncontrolled infection, he was scheduled to see ID in the clinic. Mr. Christy states that prior to his appointment, he was called and advised that inpatient evaluation and management would be more appropriate. He had been recently admitted from June 10- with a L hand infection caused by a drill bit puncture. He was nearing the end of an antibiotic course of Rocephin and Vancomycin. Course was to be completed on 06/22. Orthopedic consultation was obtained during the admission. CT scan of the hand was obtained and reviewed in the ED yesterday. Blood cultures have been obtained. Daptomycin and Zosyn started. Mr. Christy reports generalized fatigue and poor appetite that has been chronic. He continues to have some dexterity of his fingers but has some limited flexion and has tenderness with extension. He denies fevers or chills. Past Medical/Surgical History Medical: 1. Metastatic RCC S/P L Nephrectomy. Maintained on treatment with Cabometyx 2. T2DM 3. ESRD on HD 4. Chronic Anemia 5. HTN 6. HLD 7. BPH 8. 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 Surgical: AVF, L nephrectomy Allergies Coded Allergies: Iodinated Diagnostic Agents (Verified Allergy, Unknown, oil based, severe headaches, 06/20/17) EVENT OCCURED IN 1971, PT STATES HE HAS HAD 3 DIFFERENT WATER BASED IVP DYES WITH NO ISSUE Inpatient Medications Current Inpatient Medications Medications (Trade) Dose Ordered Sig/Edward Route Start Time Stop Time Status Last Admin Dose Admin Daptomycin 350 mg/ Syringe 7 ml @ 3.5 mls/min Q48H IV 06/22/17 15:00 07/02/17 14:59 Piperacillin Sod/ Tazobactam Sod 3.375 gm/Dextrose 115 ml @ 28.75 mls/ hr Q12H IV 06/21/17 04:00 07/01/17 03:59 06/21/17 03:48 28.75 MLS/HR Piperacillin Sod/ Tazobactam Sod (Consult) 1 ea UD PRN N/A 06/20/17 15:15 07/20/17 15:14 Acetaminophen (Tylenol Tab) 650 mg Q4H PRN PO 06/20/17 16:30 07/20/17 16:29 06/21/17 03:45 650 MG Al Hydrox/Mg Hydrox/Simethicone (Maalox Max Susp) 15 ml Q4H PRN PO 06/20/17 16:30 07/20/17 16:29 Magnesium Hydroxide (Milk Of Magnesia Susp) 30 ml Q6H PRN PO 06/20/17 16:30 07/20/17 16:29 Polyethylene (Miralax Powder Packet) 17 gm DAILY PRN PO 06/20/17 17:15 07/20/17 17:14 Ondansetron HCl (Zofran Inj) 4 mg Q6H PRN IV 06/20/17 16:30 07/20/17 16:29 Heparin Sodium (Porcine) (Heparin Sq 5000 Unit/0.5ml) 5,000 unit Q12H SQ 06/20/17 18:00 07/20/17 17:59 06/20/17 18:27 5,000 UNIT Insulin Aspart (novoLOG ASPART) SLIDING SCALE If C... ACHS SC 06/20/17 21:00 07/20/17 20:59 06/20/17 20:33 1 UNITS Glucose (Glucose 40% Gel) 15-30 GRAMS 15 GRAMS... UD PRN PO 06/20/17 16:30 07/20/17 16:29 Glucose (Glucose Chew Tab) 4-8 Tablets 4 Tabl... UD PRN PO 06/20/17 16:30 07/20/17 16:29 Dextrose (Dextrose 50% 50ML Syringe) 25-50ML OF 50% DW IV FOR... UD PRN IV 06/20/17 16:30 07/20/17 16:29 Glucagon (Glucagon Inj) 1 mg UD PRN SQ 06/20/17 16:30 07/20/17 16:29 Amlodipine Besylate (Norvasc Tab) 10 mg QAM PO 06/21/17 08:00 07/21/17 08:59 06/21/17 08:25 10 MG Aspirin (Ecotrin Tab) 81 mg QAM PO 06/21/17 08:00 07/21/17 08:59 06/21/17 08:24 81 MG Calcitriol (Rocaltrol Cap) 0.25 mcg Q2D PO 06/20/17 18:00 07/20/17 17:59 06/21/17 08:24 0.25 MCG Furosemide (Lasix Tab) 40 mg QAM PO 06/21/17 08:00 07/21/17 08:59 06/21/17 08:25 40 MG Hydralazine HCl (Apresoline Tab) 100 mg TID PO 06/20/17 20:00 07/20/17 20:59 06/21/17 08:26 100 MG Insulin Glargine (Lantus Solostar Pen) 14 units HS SC 06/20/17 21:00 07/20/17 20:59 06/20/17 20:33 14 UNITS Methadone HCl (Dolophine Tab) 10 mg TID PO 06/20/17 20:00 07/04/17 20:59 06/21/17 08:35 10 MG Metoprolol Tartrate (Lopressor Tab) 100 mg BID PO 06/20/17 20:00 07/20/17 20:59 06/21/17 08:25 100 MG Polyethylene (Miralax Powder Packet) 17 gm DAILY PO 06/21/17 08:00 07/21/17 08:59 06/21/17 08:37 17 GM Prednisone (PredniSONE TAB) 10 mg TID PO 06/20/17 20:00 07/20/17 20:59 06/21/17 08:25 10 MG Simvastatin (Zocor Tab) 20 mg QPM PO 06/20/17 21:00 07/20/17 20:59 06/20/17 20:36 20 MG Tamsulosin HCl (Flomax Cap) 0.4 mg HS PO 06/20/17 21:00 07/20/17 20:59 06/20/17 20:36 0.4 MG Fentanyl (Duragesic Patch) 25 mcg Q3D TD 06/21/17 12:00 07/05/17 11:59 Miscellaneous (Fentanyl Patch Remove & Waste) 1 ea Q3D N/A 06/21/17 11:59 07/21/17 11:58 Miscellaneous Information (Check Fentanyl Patch Placement) 1 ea QS N/A 06/21/17 00:00 07/21/17 00:00 06/21/17 08:26 1 EA Calcium Carbonate (Tums Chew Tab) 500 mg AC PO 06/21/17 06:30 07/21/17 06:29 06/21/17 08:23 500 MG Oxycodone HCl (Roxicodone Immediate Rel Tab) 10 mg TID PO 06/20/17 20:00 07/20/17 20:59 06/21/17 08:36 10 MG Cabozantinib (Cabometyx) 60 mg DAILY@0500 PO 06/21/17 05:00 07/21/17 04:59 06/21/17 05:08 60 MG Heparin Sodium (Porcine) (Heparin 100 Unit/ml 5ml Flush) 5 ml PRN PRN IV 06/21/17 05:15 07/21/17 05:14 06/21/17 08:37 5 ML Epoetin Mohsen (Procrit Inj) 20,000 units TODAY@0930 IV 06/21/17 09:30 06/21/17 18:00 Family History Cervical cancer Diabetes mellitus Heart disease Hypertension Myocardial infarction Pancreatic cancer Prostate cancer Social History Smoking Status: Unknown if Ever Smoked Smokeless Tobacco Use: No Alcohol Use: none Drug Use: none Marital Status: single Housing Status: lives alone Occupation: disabled Review of Systems A complete review of systems was performed. Pertinent positives are noted above. All other systems are negative. Physical Exam Date Time Temp Pulse Resp B/P (MAP) Pulse Ox O2 Delivery O2 Flow Rate FiO2 06/21/17 09:12 36.6 74 18 176/90 (118) 95 Room Air 06/21/17 09:10 Room Air 06/21/17 08:30 95 Room Air 06/21/17 07:46 36.6 74 18 176/90 (118) 95 06/21/17 04:23 36.7 84 20 165/75 (105) 93 Room Air 06/21/17 00:00 Room Air 06/20/17 23:16 36.8 91 18 176/88 (117) 94 Room Air 06/20/17 20:00 Room Air 06/20/17 19:30 36.6 89 20 175/83 (113) 96 Room Air 06/20/17 18:33 36.8 81 20 179/96 98 Room Air 06/20/17 17:03 80 20 162/87 96 Room Air 06/20/17 15:32 92 20 157/85 95 Room Air 06/20/17 14:06 36.5 93 16 154/88 91 Room Air General Appearance: WD/WN, no apparent distress Head: normocephalic, atraumatic Eyes: normal inspection, sclerae normal ENT: normal ENT inspection, pharynx normal Neck: supple, no JVD Respiratory/Chest: lungs clear, no respiratory distress, no accessory muscle use Cardiovascular: regular rate, rhythm, + systolic murmur Abdomen/GI: non tender, soft Back: no CVA tenderness Extremities/Musculoskelatal: normal inspection, no pedal edema, + pertinent finding (L UE AVF, L hand swollen throughout with superficial scabs but not significant erythema) Neurologic/Psych: alert, normal mood/affect Laboratory Results Last 24 Hours Test 06/20/17 14:33 06/20/17 20:07 06/21/17 03:35 06/21/17 05:27 White Blood Count 10.21 K/uL 8.68 K/uL Red Blood Count 3.39 M/uL 3.07 M/uL Hemoglobin 9.6 g/dL 8.7 g/dL Hematocrit 29.4 % 26.6 % Mean Corpuscular Volume 86.7 fL 86.6 fL Mean Corpuscular Hemoglobin 28.3 pg 28.3 pg Mean Corpuscular Hemoglobin Concent 32.7 g/dl 32.7 g/dl Platelet Count 131 K/uL 110 K/uL Mean Platelet Volume 9.9 fL 9.8 fL Neutrophils (%) (Auto) 90.3 % Lymphocytes (%) (Auto) 4.6 % Monocytes (%) (Auto) 4.0 % Eosinophils (%) (Auto) 0.1 % Basophils (%) (Auto) 0.1 % Neutrophils # (Auto) 9.22 K/uL Lymphocytes # (Auto) 0.47 K/uL Monocytes # (Auto) 0.41 K/uL Eosinophils # (Auto) 0.01 K/uL Basophils # (Auto) 0.01 K/uL RDW Standard Deviation 61.6 fL 61.2 fL RDW Coefficient of Variation 20.5 % 20.1 % Immature Granulocyte % (Auto) 0.9 % Immature Granulocyte # (Auto) 0.09 K/uL Nucleated RBC Absolute Count (auto) 0.29 K/uL 0.18 K/uL Nucleated Red Blood Cells % 2.9 % 2.1 % Basophilic Stippling OCCASIONAL Anisocytosis PRESENT Prothrombin Time 10.4 SECONDS Prothromb Time International Ratio 1.0 Activated Partial Thromboplast Time 27.1 SECONDS Partial Thromboplastin Ratio 1.0 Sodium Level 138 mmol/L 140 mmol/L Potassium Level 4.3 mmol/L 3.9 mmol/L Chloride Level 104 mmol/L 105 mmol/L Carbon Dioxide Level 26 mmol/L 27 mmol/L Anion Gap 9.0 mmol/L 8.0 mmol/L Blood Urea Nitrogen 74 mg/dl 78 mg/dl Creatinine 4.34 mg/dl 4.61 mg/dl Est Creatinine Clear Calc Drug Dose 19.5 ml/min 17.5 ml/min Estimated GFR () 15.7 14.6 Estimated GFR (Non- 13.5 12.6 BUN/Creatinine Ratio 17.1 17.1 Random Glucose 168 mg/dl 161 mg/dl Uric Acid 7.2 mg/dl Calcium Level 7.9 mg/dl 7.5 mg/dl Magnesium Level 2.3 mg/dl 2.4 mg/dl Total Bilirubin 0.2 mg/dl Aspartate Amino Transf (AST/SGOT) 41 U/L Alanine Aminotransferase (ALT/SGPT) 47 U/L Alkaline Phosphatase 83 U/L Total Protein 4.9 gm/dl Albumin 1.9 gm/dl Globulin 2.9 gm/dl Albumin/Globulin Ratio 0.6 Bedside Glucose 182 mg/dl 206 mg/dl Platelet Estimate DECREASED Test 06/21/17 07:39 Bedside Glucose 125 mg/dl Impression (1) ESRD (end stage renal disease) on dialysis (2) Anemia in chronic kidney disease (3) Cellulitis of left hand Mr. 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 He was admitted with a soft tissue infection of the left hand with evidence of progressive infection despite treatment with vancomycin and cefepime. He does not endorse systemic signs or symptoms of infection at this time. ID consult pending. Current therapy includes daptomycin and Zosyn. Mr. Christy has ESRD on HD T[facility] [place]. He missed dialysis yesterday. Orders for HD today have been entered into the EMR and discussed with the [facility] nursing staff. Blood pressure is elevated but volume status appropriate. He has anemia with blood counts stable since last admission. Epogen to be provided with HD. No changes in antihypertensive therapy at this time pending UF.. Recommendations ESRD: -- HD today, 3.5 hrs, UF ~1 kg -- Metabolic profile reviewed today -- Protect LUE AVF -- Medications appropriately dosed for renal function Anemia: -- Epogen [id number] u with HD -- Monitor CBC daily while inpatient Hypertension: -- Continue home medications including hydralazine and amlodipine -- Furosemide to encourage UOP L hand cellulitis: -- Dapto post HD, monitor CPK while on therapy -- ID consult pending
--- NOTE | 2017-06-21 10:47 | Medical Consult ---
Consultation Date of Consultation: Jun 21, 2017. Attending Physician: Rober Stern D.O. Reason for Consultation: Left hand cellulitis History of Present Illness 61-year-old male with history of renal cell carcinoma status post nephrectomy, on chemotherapy, end-stage renal disease on dialysis, hypertension, hyperlipidemia, who reportedly several weeks ago suffered multiple skin punctures from a drill bit accident, with subsequent development 1 leak later of left hand and arm swelling with pain and erythema. He was admitted to the hospital and treated with IV antibiotics, and discharged home on IV vancomycin and ceftriaxone. He has been home for several days, but notes progressively worsening redness and swelling of his left hand and lower arm. He was supposed to see me in outpatient consultation yesterday, but went to the emergency room instead. As discussed, he was started on daptomycin and Zosyn. He has noted significant improvement over the last 12 hours with decrease in pain, swelling, and improvement in hand function. He does not noted any significant fever. No cultures available for review. Had CT scan last night, read by me, which shows no obvious deep collection or evidence of bone infection. 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 (9) Colitis (10) Diabetes type 2, controlled (11) ESRD (end stage renal disease) on dialysis (12) H/O unilateral nephrectomy (13) Hypertension (14) Kidney disease, chronic, stage IV (GFR 15-29 ml/min) (15) Pneumonia (16) Pneumonitis (17) Pyelonephritis (18) Renal cell carcinoma (19) Renal mass, left (20) Shortness of breath Family History Cervical cancer Diabetes mellitus Heart disease Hypertension Myocardial infarction Pancreatic cancer Prostate cancer Social History Smoking Status: Unknown if Ever Smoked Smokeless Tobacco Use: No Alcohol Use: none Drug Use: none Marital Status: single Housing Status: lives alone Occupation Status: disabled Allergies Coded Allergies: Iodinated Diagnostic Agents (Verified Allergy, Unknown, oil based, severe headaches, 06/20/17) EVENT OCCURED IN 1971, PT STATES HE HAS HAD 3 DIFFERENT WATER BASED IVP DYES WITH NO ISSUE Current Inpatient Medications Current Inpatient Medications Medications (Trade) Dose Ordered Sig/Edward Route Start Time Stop Time Status Last Admin Dose Admin Daptomycin 350 mg/ Syringe 7 ml @ 3.5 mls/min Q48H IV 06/22/17 15:00 07/02/17 14:59 Piperacillin Sod/ Tazobactam Sod 3.375 gm/Dextrose 115 ml @ 28.75 mls/ hr Q12H IV 06/21/17 04:00 07/01/17 03:59 06/21/17 03:48 28.75 MLS/HR Piperacillin Sod/ Tazobactam Sod (Consult) 1 ea UD PRN N/A 06/20/17 15:15 07/20/17 15:14 Acetaminophen (Tylenol Tab) 650 mg Q4H PRN PO 06/20/17 16:30 07/20/17 16:29 06/21/17 03:45 650 MG Al Hydrox/Mg Hydrox/Simethicone (Maalox Max Susp) 15 ml Q4H PRN PO 06/20/17 16:30 07/20/17 16:29 Magnesium Hydroxide (Milk Of Magnesia Susp) 30 ml Q6H PRN PO 06/20/17 16:30 07/20/17 16:29 Polyethylene (Miralax Powder Packet) 17 gm DAILY PRN PO 06/20/17 17:15 07/20/17 17:14 Ondansetron HCl (Zofran Inj) 4 mg Q6H PRN IV 06/20/17 16:30 07/20/17 16:29 Heparin Sodium (Porcine) (Heparin Sq 5000 Unit/0.5ml) 5,000 unit Q12H SQ 06/20/17 18:00 07/20/17 17:59 06/20/17 18:27 5,000 UNIT Insulin Aspart (novoLOG ASPART) SLIDING SCALE If C... ACHS SC 06/20/17 21:00 07/20/17 20:59 06/20/17 20:33 1 UNITS Glucose (Glucose 40% Gel) 15-30 GRAMS 15 GRAMS... UD PRN PO 06/20/17 16:30 07/20/17 16:29 Glucose (Glucose Chew Tab) 4-8 Tablets 4 Tabl... UD PRN PO 06/20/17 16:30 07/20/17 16:29 Dextrose (Dextrose 50% 50ML Syringe) 25-50ML OF 50% DW IV FOR... UD PRN IV 06/20/17 16:30 07/20/17 16:29 Glucagon (Glucagon Inj) 1 mg UD PRN SQ 06/20/17 16:30 07/20/17 16:29 Amlodipine Besylate (Norvasc Tab) 10 mg QAM PO 06/21/17 08:00 07/21/17 08:59 06/21/17 08:25 10 MG Aspirin (Ecotrin Tab) 81 mg QAM PO 06/21/17 08:00 07/21/17 08:59 06/21/17 08:24 81 MG Calcitriol (Rocaltrol Cap) 0.25 mcg Q2D PO 06/20/17 18:00 07/20/17 17:59 06/21/17 08:24 0.25 MCG Furosemide (Lasix Tab) 40 mg QAM PO 06/21/17 08:00 07/21/17 08:59 06/21/17 08:25 40 MG Hydralazine HCl (Apresoline Tab) 100 mg TID PO 06/20/17 20:00 07/20/17 20:59 06/21/17 08:26 100 MG Insulin Glargine (Lantus Solostar Pen) 14 units HS SC 06/20/17 21:00 07/20/17 20:59 06/20/17 20:33 14 UNITS Methadone HCl (Dolophine Tab) 10 mg TID PO 06/20/17 20:00 07/04/17 20:59 06/21/17 08:35 10 MG Metoprolol Tartrate (Lopressor Tab) 100 mg BID PO 06/20/17 20:00 07/20/17 20:59 06/21/17 08:25 100 MG Polyethylene (Miralax Powder Packet) 17 gm DAILY PO 06/21/17 08:00 07/21/17 08:59 06/21/17 08:37 17 GM Prednisone (PredniSONE TAB) 10 mg TID PO 06/20/17 20:00 07/20/17 20:59 06/21/17 08:25 10 MG Simvastatin (Zocor Tab) 20 mg QPM PO 06/20/17 21:00 07/20/17 20:59 06/20/17 20:36 20 MG Tamsulosin HCl (Flomax Cap) 0.4 mg HS PO 06/20/17 21:00 07/20/17 20:59 06/20/17 20:36 0.4 MG Fentanyl (Duragesic Patch) 25 mcg Q3D TD 06/21/17 12:00 07/05/17 11:59 Miscellaneous (Fentanyl Patch Remove & Waste) 1 ea Q3D N/A 06/21/17 11:59 07/21/17 11:58 Miscellaneous Information (Check Fentanyl Patch Placement) 1 ea QS N/A 06/21/17 00:00 07/21/17 00:00 06/21/17 08:26 1 EA Calcium Carbonate (Tums Chew Tab) 500 mg AC PO 06/21/17 06:30 07/21/17 06:29 06/21/17 08:23 500 MG Oxycodone HCl (Roxicodone Immediate Rel Tab) 10 mg TID PO 06/20/17 20:00 07/20/17 20:59 06/21/17 08:36 10 MG Cabozantinib (Cabometyx) 60 mg DAILY@0500 PO 06/21/17 05:00 07/21/17 04:59 06/21/17 05:08 60 MG Heparin Sodium (Porcine) (Heparin 100 Unit/ml 5ml Flush) 5 ml PRN PRN IV 06/21/17 05:15 07/21/17 05:14 06/21/17 08:37 5 ML Epoetin Mohsen (Procrit Inj) 20,000 units TODAY@0930 IV 06/21/17 09:30 06/21/17 18:00 Review of Systems All systems were reviewed and are negative except as per HPI Physical Exam Date Time Temp Pulse Resp B/P (MAP) Pulse Ox O2 Delivery O2 Flow Rate FiO2 06/21/17 09:12 36.6 74 18 176/90 (118) 95 Room Air 06/21/17 09:10 Room Air 06/21/17 08:30 95 Room Air 06/21/17 07:46 36.6 74 18 176/90 (118) 95 06/21/17 04:23 36.7 84 20 165/75 (105) 93 Room Air 06/21/17 00:00 Room Air 06/20/17 23:16 36.8 91 18 176/88 (117) 94 Room Air 06/20/17 20:00 Room Air 06/20/17 19:30 36.6 89 20 175/83 (113) 96 Room Air 06/20/17 18:33 36.8 81 20 179/96 98 Room Air 06/20/17 17:03 80 20 162/87 96 Room Air 06/20/17 15:32 92 20 157/85 95 Room Air 06/20/17 14:06 36.5 93 16 154/88 91 Room Air General Appearance: WD/WN, no apparent distress Head: normocephalic, atraumatic Eyes: normal inspection, EOMI, sclerae normal ENT: normal ENT inspection, pharynx normal Neck: supple, no adenopathy, trachea midline Respiratory/Chest: chest non-tender, lungs clear, normal breath sounds, no respiratory distress Cardiovascular: regular rate, rhythm, no gallop, no murmur Abdomen/GI: normal bowel sounds, non tender, soft, no organomegaly Back: normal inspection, no CVA tenderness Extremities/Musculoskelatal: no calf tenderness, normal capillary refill, + pertinent finding (Mild left hand swelling) Neurologic/Psych: alert, oriented x 3 Skin: normal color, warm/dry, no rash, + pertinent finding (Minimal erythema of left hand) Lymphatic: no adenopathy Laboratory Results Date/Time Source Procedure Growth Status 06/20/17 15:00 Blood Blood Culture Pending Received 06/20/17 14:33 Blood Blood Culture Pending Received Last 24 Hours Test 06/20/17 14:33 06/20/17 20:07 06/21/17 03:35 06/21/17 05:27 White Blood Count 10.21 K/uL 8.68 K/uL Red Blood Count 3.39 M/uL 3.07 M/uL Hemoglobin 9.6 g/dL 8.7 g/dL Hematocrit 29.4 % 26.6 % Mean Corpuscular Volume 86.7 fL 86.6 fL Mean Corpuscular Hemoglobin 28.3 pg 28.3 pg Mean Corpuscular Hemoglobin Concent 32.7 g/dl 32.7 g/dl Platelet Count 131 K/uL 110 K/uL Mean Platelet Volume 9.9 fL 9.8 fL Neutrophils (%) (Auto) 90.3 % Lymphocytes (%) (Auto) 4.6 % Monocytes (%) (Auto) 4.0 % Eosinophils (%) (Auto) 0.1 % Basophils (%) (Auto) 0.1 % Neutrophils # (Auto) 9.22 K/uL Lymphocytes # (Auto) 0.47 K/uL Monocytes # (Auto) 0.41 K/uL Eosinophils # (Auto) 0.01 K/uL Basophils # (Auto) 0.01 K/uL RDW Standard Deviation 61.6 fL 61.2 fL RDW Coefficient of Variation 20.5 % 20.1 % Immature Granulocyte % (Auto) 0.9 % Immature Granulocyte # (Auto) 0.09 K/uL Nucleated RBC Absolute Count (auto) 0.29 K/uL 0.18 K/uL Nucleated Red Blood Cells % 2.9 % 2.1 % Basophilic Stippling OCCASIONAL Anisocytosis PRESENT Prothrombin Time 10.4 SECONDS Prothromb Time International Ratio 1.0 Activated Partial Thromboplast Time 27.1 SECONDS Partial Thromboplastin Ratio 1.0 Sodium Level 138 mmol/L 140 mmol/L Potassium Level 4.3 mmol/L 3.9 mmol/L Chloride Level 104 mmol/L 105 mmol/L Carbon Dioxide Level 26 mmol/L 27 mmol/L Anion Gap 9.0 mmol/L 8.0 mmol/L Blood Urea Nitrogen 74 mg/dl 78 mg/dl Creatinine 4.34 mg/dl 4.61 mg/dl Est Creatinine Clear Calc Drug Dose 19.5 ml/min 17.5 ml/min Estimated GFR () 15.7 14.6 Estimated GFR (Non- 13.5 12.6 BUN/Creatinine Ratio 17.1 17.1 Random Glucose 168 mg/dl 161 mg/dl Uric Acid 7.2 mg/dl Calcium Level 7.9 mg/dl 7.5 mg/dl Magnesium Level 2.3 mg/dl 2.4 mg/dl Total Bilirubin 0.2 mg/dl Aspartate Amino Transf (AST/SGOT) 41 U/L Alanine Aminotransferase (ALT/SGPT) 47 U/L Alkaline Phosphatase 83 U/L Total Protein 4.9 gm/dl Albumin 1.9 gm/dl Globulin 2.9 gm/dl Albumin/Globulin Ratio 0.6 Bedside Glucose 182 mg/dl 206 mg/dl Platelet Estimate DECREASED Test 06/21/17 07:39 Bedside Glucose 125 mg/dl Patient Name: CHANO ANDERSON Unit Number: [id number] Dictated: 06/20/171523 Transcribed: 06/20/171523 PA Printed Date/Time: [~ rep prt dt]/[~ rep prt tm] [~ rep ct labl] - [~ rep ct ivnm] [facility] [place] [address] Dictated: 06/20/171523 Transcribed: 06/20/171523 PA Printed Date/Time: [~ rep prt dt]/[~ rep prt tm] [~ rep ct labl] - [~ rep ct ivnm] LEFT FOREARM/HAND CT CT DOSE: 257.77 mGy.cm HISTORY: cellulitis, poss abscess or nec/fasc of hand and dist arm TECHNIQUE: Multiaxial CT images of the left arm from the elbows through the fingers were performed and reformatted in the sagittal and coronal plane without the use of contrast. A dose lowering technique was utilized adhering to the principles of ALARA. COMPARISON: None. FINDINGS: Diffuse subcutaneous edema seen from the elbow through the hand and at the posterior forearm and elbow. No evidence for an elbow effusion. No significant abnormality within the deep soft tissues. No loculated fluid collections identified on this noncontrast study to suggest an abscess. Mild skin thickening of the forearm/hand. No soft tissue gas identified. No fracture or dislocation. No areas of bony destruction to suggest osteomyelitis. IMPRESSION: 1. Diffuse subcutaneous edema seen from the elbow through the hand. This is nonspecific but could represent a cellulitis. 2. No soft tissue gas identified at this time. 3. No evidence for osteomyelitis. Electronically signed by: Harris Cordova M.D. 06/20/2017 3:32 PM Dictated Date/Time: 06/20/2017 3:24 PM The status of this report is Signed. Draft = Not yet reviewed or approved by Radiologist. Signed = Reviewed and approved by Radiologist. <AttendingPhy></AttendingPhy> <FamilyPhy>Salvador Muller M.D.</FamilyPhy> < PrimaryPhy>Salvador Muller M.D.</PrimaryPhy> <UnitNumber>[id number]</UnitNumber> < VisitNumber>[id number]</VisitNumber> <PatientName>CHANO ANDERSON Nydia</PatientName> <DateOfBirth>1955</DateOfBirth> <Location>[facility]</Location> <ServiceDate></ServiceDate> <MNE>ESINDI</MNE> <OrderingPhy>Dieter Nazario M.D.</ OrderingPhy> <OrderingPhyMNE>f rep ord dr caldera</OrderingPhyMNE> <DictatingPhyMNE> f rep dict dr caldera</DictatingPhyMNE> <CCListMNE>f rep ct lorie</CCListMNE> < AdmittingPhyMNE>f pt admit dr caldera</AdmittingPhyMNE> <AttendingPhyMNE>f pt attend dr caldera</AttendingPhyMNE> <ConsultingPhyMNE>f pt consult dr caldera</ConsultingPhyMNE> <FamilyPhyMNE>f pt fam dr caldera</FamilyPhyMNE> <OtherPhyMNE>f pt other dr caldera</OtherPhyMNE> < PrimaryPhyMNE>f pt prim care dr caldera</PrimaryPhyMNE> <ReferringPhyMNE>f pt referring dr caldera</ReferringPhyMNE> Assessment & Plan Cellulitis of left hand and forearm after drill bit injury, with worsening on vancomycin and ceftriaxone but now improving on daptomycin and Zosyn. Patient should continue on IV antibiotics for another 24-48 hours depending on clinical response. May need to go home with further IV antibiotic therapy depending on response. Await cultures and will follow.
--- NOTE | 2017-06-21 11:16 | Hospitalist Progress Note ---
Hospitalist Progress Note Date of Service Jun 21, 2017. (Ledy Bhakta ., PA-C) Subjective Pt evaluation today including: conversation w/ patient, physical exam, lab review, review of studies, review of inpatient medication list Patient states he is feeling well. L hand cellulitis has significantly improved since admission. +L hand pain- improving. +L hand swelling, warmth. Denies drainage from lesions. No fever/chills. Eating and drinking OK. To receive dialysis today. Patient denies any fever, chills, sweats, lightheadedness, dizziness, vision changes, CP, palpitations, SOB, wheezing, cough, abdominal pain, nausea, vomiting, diarrhea, urinary symptoms, melena, numbness/tingling, weakness, anxiety/depression, active bleeding, or new skin discoloration/changes. (Ledy Bhakta ., PA-C) Medications Current Inpatient Medications Medications (Trade) Dose Ordered Sig/Edward Route Start Time Stop Time Status Last Admin Dose Admin Daptomycin 350 mg/ Syringe 7 ml @ 3.5 mls/min Q48H IV 06/22/17 15:00 07/02/17 14:59 Piperacillin Sod/ Tazobactam Sod 3.375 gm/Dextrose 115 ml @ 28.75 mls/ hr Q12H IV 06/21/17 04:00 07/01/17 03:59 06/21/17 03:48 28.75 MLS/HR Piperacillin Sod/ Tazobactam Sod (Consult) 1 ea UD PRN N/A 06/20/17 15:15 07/20/17 15:14 Acetaminophen (Tylenol Tab) 650 mg Q4H PRN PO 06/20/17 16:30 07/20/17 16:29 06/21/17 03:45 650 MG Al Hydrox/Mg Hydrox/Simethicone (Maalox Max Susp) 15 ml Q4H PRN PO 06/20/17 16:30 07/20/17 16:29 Magnesium Hydroxide (Milk Of Magnesia Susp) 30 ml Q6H PRN PO 06/20/17 16:30 07/20/17 16:29 Polyethylene (Miralax Powder Packet) 17 gm DAILY PRN PO 06/20/17 17:15 07/20/17 17:14 Ondansetron HCl (Zofran Inj) 4 mg Q6H PRN IV 06/20/17 16:30 07/20/17 16:29 Heparin Sodium (Porcine) (Heparin Sq 5000 Unit/0.5ml) 5,000 unit Q12H SQ 06/20/17 18:00 07/20/17 17:59 06/20/17 18:27 5,000 UNIT Insulin Aspart (novoLOG ASPART) SLIDING SCALE If C... ACHS SC 06/20/17 21:00 07/20/17 20:59 06/20/17 20:33 1 UNITS Glucose (Glucose 40% Gel) 15-30 GRAMS 15 GRAMS... UD PRN PO 06/20/17 16:30 07/20/17 16:29 Glucose (Glucose Chew Tab) 4-8 Tablets 4 Tabl... UD PRN PO 06/20/17 16:30 07/20/17 16:29 Dextrose (Dextrose 50% 50ML Syringe) 25-50ML OF 50% DW IV FOR... UD PRN IV 06/20/17 16:30 07/20/17 16:29 Glucagon (Glucagon Inj) 1 mg UD PRN SQ 06/20/17 16:30 07/20/17 16:29 Amlodipine Besylate (Norvasc Tab) 10 mg QAM PO 06/21/17 08:00 07/21/17 08:59 06/21/17 08:25 10 MG Aspirin (Ecotrin Tab) 81 mg QAM PO 06/21/17 08:00 07/21/17 08:59 06/21/17 08:24 81 MG Calcitriol (Rocaltrol Cap) 0.25 mcg Q2D PO 06/20/17 18:00 07/20/17 17:59 06/21/17 08:24 0.25 MCG Furosemide (Lasix Tab) 40 mg QAM PO 06/21/17 08:00 07/21/17 08:59 06/21/17 08:25 40 MG Hydralazine HCl (Apresoline Tab) 100 mg TID PO 06/20/17 20:00 07/20/17 20:59 06/21/17 08:26 100 MG Insulin Glargine (Lantus Solostar Pen) 14 units HS SC 06/20/17 21:00 07/20/17 20:59 06/20/17 20:33 14 UNITS Methadone HCl (Dolophine Tab) 10 mg TID PO 06/20/17 20:00 07/04/17 20:59 06/21/17 08:35 10 MG Metoprolol Tartrate (Lopressor Tab) 100 mg BID PO 06/20/17 20:00 07/20/17 20:59 06/21/17 08:25 100 MG Polyethylene (Miralax Powder Packet) 17 gm DAILY PO 06/21/17 08:00 07/21/17 08:59 06/21/17 08:37 17 GM Prednisone (PredniSONE TAB) 10 mg TID PO 06/20/17 20:00 07/20/17 20:59 06/21/17 08:25 10 MG Simvastatin (Zocor Tab) 20 mg QPM PO 06/20/17 21:00 07/20/17 20:59 06/20/17 20:36 20 MG Tamsulosin HCl (Flomax Cap) 0.4 mg HS PO 06/20/17 21:00 07/20/17 20:59 06/20/17 20:36 0.4 MG Fentanyl (Duragesic Patch) 25 mcg Q3D TD 06/21/17 12:00 07/05/17 11:59 Miscellaneous (Fentanyl Patch Remove & Waste) 1 ea Q3D N/A 06/21/17 11:59 07/21/17 11:58 Miscellaneous Information (Check Fentanyl Patch Placement) 1 ea QS N/A 06/21/17 00:00 07/21/17 00:00 06/21/17 08:26 1 EA Calcium Carbonate (Tums Chew Tab) 500 mg AC PO 06/21/17 06:30 07/21/17 06:29 06/21/17 08:23 500 MG Oxycodone HCl (Roxicodone Immediate Rel Tab) 10 mg TID PO 06/20/17 20:00 07/20/17 20:59 06/21/17 08:36 10 MG Cabozantinib (Cabometyx) 60 mg DAILY@0500 PO 06/21/17 05:00 07/21/17 04:59 06/21/17 05:08 60 MG Heparin Sodium (Porcine) (Heparin 100 Unit/ml 5ml Flush) 5 ml PRN PRN IV 06/21/17 05:15 07/21/17 05:14 06/21/17 08:37 5 ML Epoetin Mohsen (Procrit Inj) 20,000 units TODAY@0930 IV 06/21/17 09:30 06/21/17 18:00 (Ledy Bhakta PA-C) Objective Vital Signs Date Time Temp Pulse Resp B/P (MAP) Pulse Ox O2 Delivery O2 Flow Rate FiO2 06/21/17 09:12 36.6 74 18 176/90 (118) 95 Room Air 06/21/17 09:10 Room Air 06/21/17 08:30 95 Room Air 06/21/17 07:46 36.6 74 18 176/90 (118) 95 06/21/17 04:23 36.7 84 20 165/75 (105) 93 Room Air 06/21/17 00:00 Room Air 06/20/17 23:16 36.8 91 18 176/88 (117) 94 Room Air 06/20/17 20:00 Room Air 06/20/17 19:30 36.6 89 20 175/83 (113) 96 Room Air 06/20/17 18:33 36.8 81 20 179/96 98 Room Air 06/20/17 17:03 80 20 162/87 96 Room Air 06/20/17 15:32 92 20 157/85 95 Room Air 06/20/17 14:06 36.5 93 16 154/88 91 Room Air (Ledy Bhakta, CHRISTEN-C) Physical Exam General Appearance: no apparent distress Eyes: normal inspection, PERRL ENT: hearing grossly normal Neck: supple Respiratory/Chest: lungs clear, no respiratory distress, no accessory muscle use, + pertinent finding (port R upper chest region ) Cardiovascular: regular rate, rhythm Abdomen: normal bowel sounds, non tender, soft Extremities: no pedal edema, no calf tenderness, + swelling (non-pitting L hand ), + pertinent finding (Noted warmth and mild erythema to diffuse L hand; noted multiple scabbed lesions- no obvious surrounding erythema or drainage ) Neurologic/Psychiatric: alert, normal mood/affect, oriented x 3 Skin: normal color, warm/dry, no rash (Ledy Bhakta, CHRISTEN-C) Laboratory Results Last 24 Hours Test 06/20/17 14:33 06/20/17 20:07 06/21/17 03:35 06/21/17 05:27 White Blood Count 10.21 K/uL 8.68 K/uL Red Blood Count 3.39 M/uL 3.07 M/uL Hemoglobin 9.6 g/dL 8.7 g/dL Hematocrit 29.4 % 26.6 % Mean Corpuscular Volume 86.7 fL 86.6 fL Mean Corpuscular Hemoglobin 28.3 pg 28.3 pg Mean Corpuscular Hemoglobin Concent 32.7 g/dl 32.7 g/dl Platelet Count 131 K/uL 110 K/uL Mean Platelet Volume 9.9 fL 9.8 fL Neutrophils (%) (Auto) 90.3 % Lymphocytes (%) (Auto) 4.6 % Monocytes (%) (Auto) 4.0 % Eosinophils (%) (Auto) 0.1 % Basophils (%) (Auto) 0.1 % Neutrophils # (Auto) 9.22 K/uL Lymphocytes # (Auto) 0.47 K/uL Monocytes # (Auto) 0.41 K/uL Eosinophils # (Auto) 0.01 K/uL Basophils # (Auto) 0.01 K/uL RDW Standard Deviation 61.6 fL 61.2 fL RDW Coefficient of Variation 20.5 % 20.1 % Immature Granulocyte % (Auto) 0.9 % Immature Granulocyte # (Auto) 0.09 K/uL Nucleated RBC Absolute Count (auto) 0.29 K/uL 0.18 K/uL Nucleated Red Blood Cells % 2.9 % 2.1 % Basophilic Stippling OCCASIONAL Anisocytosis PRESENT Prothrombin Time 10.4 SECONDS Prothromb Time International Ratio 1.0 Activated Partial Thromboplast Time 27.1 SECONDS Partial Thromboplastin Ratio 1.0 Sodium Level 138 mmol/L 140 mmol/L Potassium Level 4.3 mmol/L 3.9 mmol/L Chloride Level 104 mmol/L 105 mmol/L Carbon Dioxide Level 26 mmol/L 27 mmol/L Anion Gap 9.0 mmol/L 8.0 mmol/L Blood Urea Nitrogen 74 mg/dl 78 mg/dl Creatinine 4.34 mg/dl 4.61 mg/dl Est Creatinine Clear Calc Drug Dose 19.5 ml/min 17.5 ml/min Estimated GFR () 15.7 14.6 Estimated GFR (Non- 13.5 12.6 BUN/Creatinine Ratio 17.1 17.1 Random Glucose 168 mg/dl 161 mg/dl Uric Acid 7.2 mg/dl Calcium Level 7.9 mg/dl 7.5 mg/dl Magnesium Level 2.3 mg/dl 2.4 mg/dl Total Bilirubin 0.2 mg/dl Aspartate Amino Transf (AST/SGOT) 41 U/L Alanine Aminotransferase (ALT/SGPT) 47 U/L Alkaline Phosphatase 83 U/L Total Protein 4.9 gm/dl Albumin 1.9 gm/dl Globulin 2.9 gm/dl Albumin/Globulin Ratio 0.6 Bedside Glucose 182 mg/dl 206 mg/dl Platelet Estimate DECREASED Test 06/21/17 07:39 Bedside Glucose 125 mg/dl (Ledy Bhakta, SARITA) Assessment and Plan Mr. Christy is a 61 y/o male with PMHx of Metastatic RCC S/P L Nephrectomy, ESRD on HD, Chronic Anemia, T2DM, HTN, HLD, BPH, and Suspected [employer]ENCE [employer] who presents to the ED c/o worsening L hand pain and erythema that started last night. Patient was recently admitted for L hand infection caused by a drill bit puncture x 2 weeks ago. He has almost completed his antibiotic course of Rocephin and Vancomycin. L hand cellulitis, failed outpatient treatment w/ IV Rocephin + Vanco: - Admitted to med/surg - IV Dapto + Zosyn- started on 06/20 - ID consulted, appreciate recommendations- continue current IV antibiotics, further recommendations pending response ESRD on HD on , , SAT: - Monitor with BMP - Consult nephrology- appreciate assistance with dialysis T2DM: - Lantus 14 units SC HS - BSG ACHS and SSI Suspected [employer] SCI[employer] TE[employer]ER: Prednisone 10 mg TID with plans to transition to 20 mg daily on 06/29- managed by Dr. Ferreira Metastatic RCC s/p L nephrectomy- follows with [facility]: - Cabometyx 60 mg daily - Pain control with Methadone 10 mg TID, Fentanyl, and Oxycodone 10 mg TID - MiraLAX daily HTN: Amlodipine 10 mg daily, Lopressor 100 mg BID, Hydralazine 100 mg TID, Lasix 40 mg daily HLD: Simvastatin 20 mg daily BPH: Flomax 0.4 mg HS DVT Prophylaxis: Heparin 5000 units Q12H Code Status: LEVEL I, FULL RESUSCITATION Disposition: Discharge to home once medically stable- hopefully in the next 1-2 days - May need continued IV antibiotics at discharge- line access complete- CM consulted (Ledy Bhakta ., PA-C) I agree with resident assessment and plan and have seen and examined pt myself VSS Labs reviewed Presents with left hand cellulitis ID consulted, zosyn and dapto to be continued, no sign of OM Nephro consulted, HD and UF for today Appreciate recs (Rober Stern, D.O.)
[2017-06-21] MEDS: FENTANYL PATCH REMOVE & WASTE SCH (13:10)
[2017-06-21] MEDS: FENTANYL 25 MCG/HR TDSY TD SCH (13:10)
[2017-06-21] MEDS: SIMVASTATIN 20 MG TAB PO SCH (20:09)
[2017-06-21] MEDS: TAMSULOSIN HCL 0.4 MG CAP PO SCH (20:09)
[2017-06-21] MEDS: INSULIN GLARGINE SOLOSTAR 100 UNITS/ML 3 ML PEN SC SCH (20:58)
[2017-06-22] VITALS (20 sets, daily range): BP systolic 93–191; BP diastolic 60–98; PULSE 55–92; TEMP 36.2–37; O2SAT 94–96
[2017-06-22] MEDS: CHECK FENTANYL PATCH PLACEMENT SCH ×3 (00:31→16:20)
[2017-06-22] MEDS: PIPERACILL/TAZOBAC IV 3.375 GM in DEXTROSE 5% 100ML IV SCH ×2 (04:14→16:14)
[2017-06-22] MEDS: CABOZANTINIB S MALATE 60 MG PO SCH (05:05)
[2017-06-22 06:01] LABS: MEAN CORPUSCULAR HGB CONC 31.3 g/dl (32-36)
[2017-06-22 06:05] LABS: HEMATOCRIT 29.7 % (42-52); MEAN CELL VOLUME 86.8 fL (80-100); MEAN CORPUSCULAR HEMOGLOBIN 27.2 pg (25-34); RED BLOOD COUNT 3.42 M/uL (4.7-6.1); WHITE BLOOD COUNT 9.38 K/uL (4.8-10.8)
[2017-06-22] MEDS: CALCIUM CARBONATE 500 MG CHEWABLE PO SCH ×3 (06:05→16:21)
[2017-06-22] MEDS: HEPARIN SOD 5000 UNIT/0.5 ML CARP SQ SCH ×2 (06:05→17:27)
[2017-06-22] MEDS: INSULIN ASPART 100 UNITS/ML 3 ML PEN SC SCH ×4 (06:30→20:45)
[2017-06-22 06:41] LABS: BUN/CREATININE RATIO 14.3 (10-20); CREATININE 3.45 mg/dl (0.60-1.40); MAGNESIUM 2.2 mg/dl (1.8-2.4); POTASSIUM 4.2 mmol/L (3.5-5.1)
[2017-06-22 07:14] LABS: PLATELET COUNT 100 K/uL (130-400); PLT ESTIMATE DECREASED
[2017-06-22] MEDS: FUROSEMIDE 40 MG TAB PO SCH (07:38)
[2017-06-22] MEDS: ASPIRIN 81 MG ECTAB PO SCH (07:39)
[2017-06-22] MEDS: AMLODIPINE BESYLATE 5 MG TAB PO SCH (07:39)
[2017-06-22] MEDS: METOPROLOL TARTRATE 100 MG TAB PO SCH ×2 (07:40→20:28)
[2017-06-22] MEDS: POLYETHYLENE (MIRALAX) 17 GM PACK PO SCH (07:40)
[2017-06-22] MEDS: METHADONE HCL 10 MG TAB PO SCH ×3 (07:49→20:24)
[2017-06-22] MEDS: OXYCODONE HCL IR 5 MG TAB (IMMEDIATE RELEASE) PO SCH ×3 (07:49→20:24)
--- NOTE | 2017-06-22 08:26 | Nephrology Progress Note ---
Nephrology Progress Note Date of Service Jun 22, 2017. Chief Complaint ESRD Subjective No acute events overnight. Tolerated HD well yesterday without complications, UF 2 kg. Padilla denies pain. He denies fevers or chills. No erythema in left hand. Edema persists. Otherwise, Padilla states that he feels well. He hopes that he can be discharged home prior to the weekend. Review of Systems A complete review of systems was performed. Pertinent positives are noted above. All other systems are negative. Vital Signs Last 8 Hrs Date Time Temp Pulse Resp B/P (MAP) Pulse Ox O2 Delivery O2 Flow Rate FiO2 06/22/17 07:45 Room Air 06/22/17 07:00 36.7 80 20 191/93 (125) 96 Room Air 06/22/17 04:08 36.4 89 16 181/87 (118) 94 Room Air Last Recorded Weight Weight (Kilograms): 83.500 Physical Exam General Appearance: WD/WN, no apparent distress Head: normocephalic, atraumatic Eyes: normal inspection, sclerae normal ENT: normal ENT inspection, pharynx normal Neck: supple, no JVD, + pertinent finding (R port with clean dressing over exit site) Respiratory/Chest: lungs clear, no respiratory distress, no accessory muscle use Cardiovascular: regular rate, rhythm, + systolic murmur Abdomen/GI: non tender, soft Extremities/Musculoskelatal: + pertinent finding (left hand remains swollen - notably along the extensor surfaces, no erythema, no distal cyanosis or embolic lesions, mild tenderness along the 2nd finger at the MCP joint, no fluctuance; L UE AVF with good thrill and bruit) Family History Cervical cancer Diabetes mellitus Heart disease Hypertension Myocardial infarction Pancreatic cancer Prostate cancer Social History Smokeless Tobacco Use: No Alcohol Use: none Drug Use: none Marital Status: single Housing Status: lives alone Occupation: disabled Laboratory Results Past 24 Hours 06/22/17 05:35 06/22/17 05:35 Test 06/21/17 11:37 06/21/17 17:57 06/21/17 20:18 06/22/17 00:01 Bedside Glucose 146 mg/dl (70-99) 129 mg/dl (70-99) 199 mg/dl (70-99) 181 mg/dl (70-99) Test 06/22/17 04:16 06/22/17 05:35 06/22/17 07:40 Bedside Glucose 124 mg/dl (70-99) 94 mg/dl (70-99) Red Blood Count 3.42 M/uL (4.7-6.1) Mean Corpuscular Volume 86.8 fL (80-100) Mean Corpuscular Hemoglobin 27.2 pg (25-34) Mean Corpuscular Hemoglobin Concent 31.3 g/dl (32-36) RDW Standard Deviation 61.7 fL (36.4-46.3) RDW Coefficient of Variation 20.6 % (11.5-14.5) Mean Platelet Volume 10.0 fL (7.4-10.4) Nucleated RBC Absolute Count (auto) 0.20 K/uL (0-0) Nucleated Red Blood Cells % 2.2 % Platelet Estimate DECREASED Anion Gap 8.0 mmol/L (3-11) Est Creatinine Clear Calc Drug Dose 23.3 ml/min Estimated GFR () 20.7 Estimated GFR (Non- 17.8 BUN/Creatinine Ratio 14.3 (10-20) Calcium Level 8.0 mg/dl (8.5-10.1) Magnesium Level 2.2 mg/dl (1.8-2.4) Allergies Coded Allergies: Iodinated Diagnostic Agents (Verified Allergy, Unknown, oil based, severe headaches, 06/20/17) EVENT OCCURED IN 1971, PT STATES HE HAS HAD 3 DIFFERENT WATER BASED IVP DYES WITH NO ISSUE Medications Current Inpatient Medications Medications (Trade) Dose Ordered Sig/Edward Route Start Time Stop Time Status Last Admin Dose Admin Daptomycin 350 mg/ Syringe 7 ml @ 3.5 mls/min Q48H IV 06/22/17 15:00 07/02/17 14:59 Piperacillin Sod/ Tazobactam Sod 3.375 gm/Dextrose 115 ml @ 28.75 mls/ hr Q12H IV 06/21/17 04:00 07/01/17 03:59 06/22/17 04:14 28.75 MLS/HR Piperacillin Sod/ Tazobactam Sod (Consult) 1 ea UD PRN N/A 06/20/17 15:15 07/20/17 15:14 Acetaminophen (Tylenol Tab) 650 mg Q4H PRN PO 06/20/17 16:30 07/20/17 16:29 06/21/17 03:45 650 MG Al Hydrox/Mg Hydrox/Simethicone (Maalox Max Susp) 15 ml Q4H PRN PO 06/20/17 16:30 07/20/17 16:29 Magnesium Hydroxide (Milk Of Magnesia Susp) 30 ml Q6H PRN PO 06/20/17 16:30 07/20/17 16:29 Polyethylene (Miralax Powder Packet) 17 gm DAILY PRN PO 06/20/17 17:15 07/20/17 17:14 Ondansetron HCl (Zofran Inj) 4 mg Q6H PRN IV 06/20/17 16:30 07/20/17 16:29 Heparin Sodium (Porcine) (Heparin Sq 5000 Unit/0.5ml) 5,000 unit Q12H SQ 06/20/17 18:00 07/20/17 17:59 06/22/17 06:05 5,000 UNIT Insulin Aspart (novoLOG ASPART) SLIDING SCALE If C... ACHS SC 06/20/17 21:00 07/20/17 20:59 06/21/17 20:59 1 UNITS Glucose (Glucose 40% Gel) 15-30 GRAMS 15 GRAMS... UD PRN PO 06/20/17 16:30 07/20/17 16:29 Glucose (Glucose Chew Tab) 4-8 Tablets 4 Tabl... UD PRN PO 06/20/17 16:30 07/20/17 16:29 Dextrose (Dextrose 50% 50ML Syringe) 25-50ML OF 50% DW IV FOR... UD PRN IV 06/20/17 16:30 07/20/17 16:29 Glucagon (Glucagon Inj) 1 mg UD PRN SQ 06/20/17 16:30 07/20/17 16:29 Amlodipine Besylate (Norvasc Tab) 10 mg QAM PO 06/21/17 08:00 07/21/17 08:59 06/22/17 07:39 10 MG Aspirin (Ecotrin Tab) 81 mg QAM PO 06/21/17 08:00 07/21/17 08:59 06/22/17 07:39 81 MG Calcitriol (Rocaltrol Cap) 0.25 mcg Q2D PO 06/20/17 18:00 07/20/17 17:59 06/21/17 08:24 0.25 MCG Furosemide (Lasix Tab) 40 mg QAM PO 06/21/17 08:00 07/21/17 08:59 06/22/17 07:38 40 MG Hydralazine HCl (Apresoline Tab) 100 mg TID PO 06/20/17 20:00 07/20/17 20:59 06/22/17 07:38 100 MG Insulin Glargine (Lantus Solostar Pen) 14 units HS SC 06/20/17 21:00 07/20/17 20:59 06/21/17 20:58 14 UNITS Methadone HCl (Dolophine Tab) 10 mg TID PO 06/20/17 20:00 07/04/17 20:59 06/22/17 07:49 10 MG Metoprolol Tartrate (Lopressor Tab) 100 mg BID PO 06/20/17 20:00 07/20/17 20:59 06/22/17 07:40 100 MG Polyethylene (Miralax Powder Packet) 17 gm DAILY PO 06/21/17 08:00 07/21/17 08:59 06/22/17 07:40 17 GM Prednisone (PredniSONE TAB) 10 mg TID PO 06/20/17 20:00 07/20/17 20:59 06/22/17 07:39 10 MG Simvastatin (Zocor Tab) 20 mg QPM PO 06/20/17 21:00 07/20/17 20:59 06/21/17 20:09 20 MG Tamsulosin HCl (Flomax Cap) 0.4 mg HS PO 06/20/17 21:00 07/20/17 20:59 06/21/17 20:09 0.4 MG Fentanyl (Duragesic Patch) 25 mcg Q3D TD 06/21/17 12:00 07/05/17 11:59 06/21/17 13:10 25 MCG Miscellaneous (Fentanyl Patch Remove & Waste) 1 ea Q3D N/A 06/21/17 11:59 07/21/17 11:58 06/21/17 13:10 1 EA Miscellaneous Information (Check Fentanyl Patch Placement) 1 ea QS N/A 06/21/17 00:00 07/21/17 00:00 06/22/17 07:40 1 EA Calcium Carbonate (Tums Chew Tab) 500 mg AC PO 06/21/17 06:30 07/21/17 06:29 06/22/17 06:05 500 MG Oxycodone HCl (Roxicodone Immediate Rel Tab) 10 mg TID PO 06/20/17 20:00 07/20/17 20:59 06/22/17 07:49 10 MG Cabozantinib (Cabometyx) 60 mg DAILY@0500 PO 06/21/17 05:00 07/21/17 04:59 06/22/17 05:05 60 MG Heparin Sodium (Porcine) (Heparin 100 Unit/ml 5ml Flush) 5 ml PRN PRN IV 06/21/17 05:15 07/21/17 05:14 06/21/17 08:37 5 ML Lisinopril (Zestril Tab) 20 mg QAM PO 06/23/17 08:00 07/23/17 07:59 Lisinopril (Zestril Tab) 20 mg NOW ONCE PO 06/22/17 08:30 06/22/17 08:31 Impression (1) ESRD (end stage renal disease) on dialysis (2) Anemia in chronic kidney disease (3) Cellulitis of left hand Mr. Padilla Christy is a 61 year-old male with a history of metastatic RCC s/p L nephrectomy, ESRD on HD, chronic anemia, diabetes mellitus type II, hypertension, BPH, and suspected [employer] (attributed to [employer]). He is maintained on Cabometyx for RCC. Padilla was admitted with a soft tissue infection of the left hand with evidence of progressive infection despite treatment with vancomycin and ceftriaxone. He does not endorse signs or symptoms of systemic infection at this time. ID consult reviewed this morning. CT scan did not show evidence of tenosynovitis, deep collections or osteomyelitis. Padilla remains on daptomycin an Zosyn. Blood cultures from admission NGTD. Mr. Christy has ESRD on HD TTS at [facility] [place]. He completed a treatment yesterday after missing dialysis on Monday. AVF with adequate Qb. No complications with H. Orders for HD today have been entered into the EMR for an abridged treatment today per TTS schedule. Epogen provided with HD yesterday. Blood pressure is elevated this morning but did improve with UF yesterday. Continue current antihypertensive medications and monitor. Recommendations ESRD: -- HD today, 3 hrs, UF ~1 kg -- Metabolic profile reviewed today -- Protect LUE AVF -- Medications appropriately dosed for renal function Anemia: -- Epogen [id number] u with HD yesterday -- Repeat CBC prior to dialysis on Monday Hypertension: -- Avoid checking BP overnight -- Continue current medications -- Furosemide to encourage UOP L hand cellulitis: -- OT consult requested to assist with hand edema and limited dexterity -- Dapto post HD, monitor CPK while on therapy -- ID consult appreciated -- Remains on IV antibiotics
[2017-06-22] MEDS ORDERED: LISINOPRIL 20 MG TAB PO ONE (08:30)
--- NOTE | 2017-06-22 11:11 | Infectious Disease Progress Nt ---
Progress Note Date of Service Jun 22, 2017. Subjective Pt evaluation today including: conversation w/ patient, physical exam, chart review, lab review, review of studies, conversation w/ mgmt consultant, review of inpatient medication list Patient offering no new complaints today. Left hand pain better. No fever. All Other Systems: Reviewed and Negative Medications Current Inpatient Medications Medications (Trade) Dose Ordered Sig/Edward Route Start Time Stop Time Status Last Admin Dose Admin Daptomycin 350 mg/ Syringe 7 ml @ 3.5 mls/min Q48H IV 06/22/17 15:00 07/02/17 14:59 Piperacillin Sod/ Tazobactam Sod 3.375 gm/Dextrose 115 ml @ 28.75 mls/ hr Q12H IV 06/21/17 04:00 07/01/17 03:59 06/22/17 04:14 28.75 MLS/HR Piperacillin Sod/ Tazobactam Sod (Consult) 1 ea UD PRN N/A 06/20/17 15:15 07/20/17 15:14 Acetaminophen (Tylenol Tab) 650 mg Q4H PRN PO 06/20/17 16:30 07/20/17 16:29 06/21/17 03:45 650 MG Al Hydrox/Mg Hydrox/Simethicone (Maalox Max Susp) 15 ml Q4H PRN PO 06/20/17 16:30 07/20/17 16:29 Magnesium Hydroxide (Milk Of Magnesia Susp) 30 ml Q6H PRN PO 06/20/17 16:30 07/20/17 16:29 Polyethylene (Miralax Powder Packet) 17 gm DAILY PRN PO 06/20/17 17:15 07/20/17 17:14 Ondansetron HCl (Zofran Inj) 4 mg Q6H PRN IV 06/20/17 16:30 07/20/17 16:29 Heparin Sodium (Porcine) (Heparin Sq 5000 Unit/0.5ml) 5,000 unit Q12H SQ 06/20/17 18:00 07/20/17 17:59 06/22/17 06:05 5,000 UNIT Insulin Aspart (novoLOG ASPART) SLIDING SCALE If C... ACHS SC 06/20/17 21:00 07/20/17 20:59 06/21/17 20:59 1 UNITS Glucose (Glucose 40% Gel) 15-30 GRAMS 15 GRAMS... UD PRN PO 06/20/17 16:30 07/20/17 16:29 Glucose (Glucose Chew Tab) 4-8 Tablets 4 Tabl... UD PRN PO 06/20/17 16:30 07/20/17 16:29 Dextrose (Dextrose 50% 50ML Syringe) 25-50ML OF 50% DW IV FOR... UD PRN IV 06/20/17 16:30 07/20/17 16:29 Glucagon (Glucagon Inj) 1 mg UD PRN SQ 06/20/17 16:30 07/20/17 16:29 Amlodipine Besylate (Norvasc Tab) 10 mg QAM PO 06/21/17 08:00 07/21/17 08:59 06/22/17 07:39 10 MG Aspirin (Ecotrin Tab) 81 mg QAM PO 06/21/17 08:00 07/21/17 08:59 06/22/17 07:39 81 MG Calcitriol (Rocaltrol Cap) 0.25 mcg Q2D PO 06/20/17 18:00 07/20/17 17:59 06/21/17 08:24 0.25 MCG Furosemide (Lasix Tab) 40 mg QAM PO 06/21/17 08:00 07/21/17 08:59 06/22/17 07:38 40 MG Hydralazine HCl (Apresoline Tab) 100 mg TID PO 06/20/17 20:00 07/20/17 20:59 06/22/17 07:38 100 MG Insulin Glargine (Lantus Solostar Pen) 14 units HS SC 06/20/17 21:00 07/20/17 20:59 06/21/17 20:58 14 UNITS Methadone HCl (Dolophine Tab) 10 mg TID PO 06/20/17 20:00 07/04/17 20:59 06/22/17 07:49 10 MG Metoprolol Tartrate (Lopressor Tab) 100 mg BID PO 06/20/17 20:00 07/20/17 20:59 06/22/17 07:40 100 MG Polyethylene (Miralax Powder Packet) 17 gm DAILY PO 06/21/17 08:00 07/21/17 08:59 06/22/17 07:40 17 GM Prednisone (PredniSONE TAB) 10 mg TID PO 06/20/17 20:00 07/20/17 20:59 06/22/17 07:39 10 MG Simvastatin (Zocor Tab) 20 mg QPM PO 06/20/17 21:00 07/20/17 20:59 06/21/17 20:09 20 MG Tamsulosin HCl (Flomax Cap) 0.4 mg HS PO 06/20/17 21:00 07/20/17 20:59 06/21/17 20:09 0.4 MG Fentanyl (Duragesic Patch) 25 mcg Q3D TD 06/21/17 12:00 07/05/17 11:59 06/21/17 13:10 25 MCG Miscellaneous (Fentanyl Patch Remove & Waste) 1 ea Q3D N/A 06/21/17 11:59 07/21/17 11:58 06/21/17 13:10 1 EA Miscellaneous Information (Check Fentanyl Patch Placement) 1 ea QS N/A 06/21/17 00:00 07/21/17 00:00 06/22/17 07:40 1 EA Calcium Carbonate (Tums Chew Tab) 500 mg AC PO 06/21/17 06:30 07/21/17 06:29 06/22/17 06:05 500 MG Oxycodone HCl (Roxicodone Immediate Rel Tab) 10 mg TID PO 06/20/17 20:00 07/20/17 20:59 06/22/17 07:49 10 MG Cabozantinib (Cabometyx) 60 mg DAILY@0500 PO 06/21/17 05:00 07/21/17 04:59 06/22/17 05:05 60 MG Heparin Sodium (Porcine) (Heparin 100 Unit/ml 5ml Flush) 5 ml PRN PRN IV 06/21/17 05:15 07/21/17 05:14 06/22/17 08:47 5 ML Lisinopril (Zestril Tab) 20 mg QAM PO 06/23/17 08:00 07/23/17 07:59 Objective Vital Signs Date Time Temp Pulse Resp B/P (MAP) Pulse Ox O2 Delivery O2 Flow Rate FiO2 06/22/17 11:00 78 161/74 06/22/17 10:45 77 164/88 06/22/17 10:30 74 167/75 06/22/17 10:15 81 152/86 06/22/17 10:00 64 147/79 06/22/17 09:45 78 161/87 06/22/17 09:44 36.9 83 163/92 (115) 06/22/17 07:45 Room Air 06/22/17 07:00 36.7 80 20 191/93 (125) 96 Room Air 06/22/17 04:08 36.4 89 16 181/87 (118) 94 Room Air 06/22/17 00:04 36.9 83 20 181/84 (116) 96 Room Air 06/22/17 00:00 Room Air 06/21/17 20:00 Room Air 06/21/17 19:24 36.6 77 18 178/90 (119) 94 Room Air 06/21/17 18:03 36.6 76 18 166/89 (114) 96 Room Air 06/21/17 18:00 Room Air 06/21/17 17:20 80 170/97 06/21/17 17:15 75 134/75 06/21/17 17:15 80 170/97 06/21/17 17:00 80 139/84 06/21/17 16:45 75 139/85 06/21/17 16:30 77 130/80 06/21/17 16:15 78 155/92 06/21/17 16:00 83 129/90 06/21/17 15:45 80 131/92 06/21/17 15:30 75 137/81 06/21/17 15:15 76 117/72 06/21/17 15:09 36.2 74 160/74 (102) 06/21/17 15:00 74 144/77 06/21/17 14:45 76 146/85 06/21/17 14:30 75 154/96 06/21/17 14:15 76 163/80 06/21/17 14:00 69 155/92 06/21/17 13:45 36.6 81 167/87 (113) 06/21/17 13:45 81 167/87 06/21/17 13:45 78 171/103 Physical Exam General Appearance: WD/WN, no apparent distress Eyes: normal inspection, EOMI, sclerae normal ENT: normal ENT inspection, pharynx normal Neck: supple, no adenopathy, thyroid normal, trachea midline Respiratory/Chest: chest non-tender, lungs clear, normal breath sounds, no respiratory distress Cardiovascular: regular rate, rhythm, no gallop, no murmur Abdomen: normal bowel sounds, non tender Extremities: non-tender, no calf tenderness, normal capillary refill Neurologic/Psychiatric: alert, oriented x 3 Skin: normal color, no rash, + pertinent finding (Left hand erythema resolving) Lymphatic: no adenopathy Laboratory Results Last 24 Hours Test 06/21/17 11:37 06/21/17 17:57 06/21/17 20:18 06/22/17 00:01 Bedside Glucose 146 mg/dl 129 mg/dl 199 mg/dl 181 mg/dl Test 06/22/17 04:16 06/22/17 05:35 06/22/17 07:40 Bedside Glucose 124 mg/dl 94 mg/dl White Blood Count 9.38 K/uL Red Blood Count 3.42 M/uL Hemoglobin 9.3 g/dL Hematocrit 29.7 % Mean Corpuscular Volume 86.8 fL Mean Corpuscular Hemoglobin 27.2 pg Mean Corpuscular Hemoglobin Concent 31.3 g/dl RDW Standard Deviation 61.7 fL RDW Coefficient of Variation 20.6 % Platelet Count 100 K/uL Mean Platelet Volume 10.0 fL Nucleated RBC Absolute Count (auto) 0.20 K/uL Nucleated Red Blood Cells % 2.2 % Platelet Estimate DECREASED Sodium Level 140 mmol/L Potassium Level 4.2 mmol/L Chloride Level 103 mmol/L Carbon Dioxide Level 29 mmol/L Anion Gap 8.0 mmol/L Blood Urea Nitrogen 50 mg/dl Creatinine 3.45 mg/dl Est Creatinine Clear Calc Drug Dose 23.3 ml/min Estimated GFR () 20.7 Estimated GFR (Non- 17.8 BUN/Creatinine Ratio 14.3 Random Glucose 110 mg/dl Calcium Level 8.0 mg/dl Magnesium Level 2.2 mg/dl Assessment and Plan Cellulitis of left hand and forearm after drill bit injury, with worsening on vancomycin and ceftriaxone but now improving on daptomycin and Zosyn. Patient hopefully can continue therapy as outpatient, continue on daptomycin, but would recommend changing Zosyn to ertapenem 1 g daily to allow easier outpatient therapy. Likely will need in the range of 10-14 days of therapy total. We will continue to follow.
[2017-06-22] MEDS ORDERED: DAPT500I IV (13:37)
[2017-06-22] MEDS ORDERED: ERTA1INJ IV (13:37)
[2017-06-22] MEDS ORDERED: LSN20 PO (13:58)
--- NOTE | 2017-06-22 13:58 | Hospitalist Progress Note ---
Hospitalist Progress Note Date of Service Jun 22, 2017. Subjective Pt evaluation today including: conversation w/ patient, physical exam, lab review, review of studies, review of inpatient medication list Patient resting in bed. No complaints. Planning for dialysis today. L hand pain swelling, erythema continues to improve. Patient denies any fever, chills, sweats, lightheadedness, dizziness, vision changes, CP, palpitations, edema, SOB, wheezing, cough, abdominal pain, nausea, vomiting, diarrhea, urinary symptoms, melena, numbness/tingling, weakness, anxiety/depression, active bleeding, or new skin discoloration/changes. Medications Current Inpatient Medications Medications (Trade) Dose Ordered Sig/Edward Route Start Time Stop Time Status Last Admin Dose Admin Daptomycin 350 mg/ Syringe 7 ml @ 3.5 mls/min Q48H IV 06/22/17 15:00 07/02/17 14:59 Piperacillin Sod/ Tazobactam Sod 3.375 gm/Dextrose 115 ml @ 28.75 mls/ hr Q12H IV 06/21/17 04:00 07/01/17 03:59 06/22/17 04:14 28.75 MLS/HR Piperacillin Sod/ Tazobactam Sod (Consult) 1 ea UD PRN N/A 06/20/17 15:15 07/20/17 15:14 Acetaminophen (Tylenol Tab) 650 mg Q4H PRN PO 06/20/17 16:30 07/20/17 16:29 06/21/17 03:45 650 MG Al Hydrox/Mg Hydrox/Simethicone (Maalox Max Susp) 15 ml Q4H PRN PO 06/20/17 16:30 07/20/17 16:29 Magnesium Hydroxide (Milk Of Magnesia Susp) 30 ml Q6H PRN PO 06/20/17 16:30 07/20/17 16:29 Polyethylene (Miralax Powder Packet) 17 gm DAILY PRN PO 06/20/17 17:15 07/20/17 17:14 Ondansetron HCl (Zofran Inj) 4 mg Q6H PRN IV 06/20/17 16:30 07/20/17 16:29 Heparin Sodium (Porcine) (Heparin Sq 5000 Unit/0.5ml) 5,000 unit Q12H SQ 06/20/17 18:00 07/20/17 17:59 06/22/17 06:05 5,000 UNIT Insulin Aspart (novoLOG ASPART) SLIDING SCALE If C... ACHS SC 06/20/17 21:00 07/20/17 20:59 06/21/17 20:59 1 UNITS Glucose (Glucose 40% Gel) 15-30 GRAMS 15 GRAMS... UD PRN PO 06/20/17 16:30 07/20/17 16:29 Glucose (Glucose Chew Tab) 4-8 Tablets 4 Tabl... UD PRN PO 06/20/17 16:30 07/20/17 16:29 Dextrose (Dextrose 50% 50ML Syringe) 25-50ML OF 50% DW IV FOR... UD PRN IV 06/20/17 16:30 07/20/17 16:29 Glucagon (Glucagon Inj) 1 mg UD PRN SQ 06/20/17 16:30 07/20/17 16:29 Amlodipine Besylate (Norvasc Tab) 10 mg QAM PO 06/21/17 08:00 07/21/17 08:59 06/22/17 07:39 10 MG Aspirin (Ecotrin Tab) 81 mg QAM PO 06/21/17 08:00 07/21/17 08:59 06/22/17 07:39 81 MG Calcitriol (Rocaltrol Cap) 0.25 mcg Q2D PO 06/20/17 18:00 07/20/17 17:59 06/21/17 08:24 0.25 MCG Furosemide (Lasix Tab) 40 mg QAM PO 06/21/17 08:00 07/21/17 08:59 06/22/17 07:38 40 MG Hydralazine HCl (Apresoline Tab) 100 mg TID PO 06/20/17 20:00 07/20/17 20:59 06/22/17 07:38 100 MG Insulin Glargine (Lantus Solostar Pen) 14 units HS SC 06/20/17 21:00 07/20/17 20:59 06/21/17 20:58 14 UNITS Methadone HCl (Dolophine Tab) 10 mg TID PO 06/20/17 20:00 07/04/17 20:59 06/22/17 07:49 10 MG Metoprolol Tartrate (Lopressor Tab) 100 mg BID PO 06/20/17 20:00 07/20/17 20:59 06/22/17 07:40 100 MG Polyethylene (Miralax Powder Packet) 17 gm DAILY PO 06/21/17 08:00 07/21/17 08:59 06/22/17 07:40 17 GM Prednisone (PredniSONE TAB) 10 mg TID PO 06/20/17 20:00 07/20/17 20:59 06/22/17 07:39 10 MG Simvastatin (Zocor Tab) 20 mg QPM PO 06/20/17 21:00 07/20/17 20:59 06/21/17 20:09 20 MG Tamsulosin HCl (Flomax Cap) 0.4 mg HS PO 06/20/17 21:00 07/20/17 20:59 06/21/17 20:09 0.4 MG Fentanyl (Duragesic Patch) 25 mcg Q3D TD 06/21/17 12:00 07/05/17 11:59 06/21/17 13:10 25 MCG Miscellaneous (Fentanyl Patch Remove & Waste) 1 ea Q3D N/A 06/21/17 11:59 07/21/17 11:58 06/21/17 13:10 1 EA Miscellaneous Information (Check Fentanyl Patch Placement) 1 ea QS N/A 06/21/17 00:00 07/21/17 00:00 06/22/17 07:40 1 EA Calcium Carbonate (Tums Chew Tab) 500 mg AC PO 06/21/17 06:30 07/21/17 06:29 06/22/17 06:05 500 MG Oxycodone HCl (Roxicodone Immediate Rel Tab) 10 mg TID PO 06/20/17 20:00 07/20/17 20:59 06/22/17 07:49 10 MG Cabozantinib (Cabometyx) 60 mg DAILY@0500 PO 06/21/17 05:00 07/21/17 04:59 06/22/17 05:05 60 MG Heparin Sodium (Porcine) (Heparin 100 Unit/ml 5ml Flush) 5 ml PRN PRN IV 06/21/17 05:15 07/21/17 05:14 06/22/17 08:47 5 ML Lisinopril (Zestril Tab) 20 mg QAM PO 06/23/17 08:00 07/23/17 07:59 Objective Vital Signs Date Time Temp Pulse Resp B/P (MAP) Pulse Ox O2 Delivery O2 Flow Rate FiO2 06/22/17 12:45 78 183/93 06/22/17 12:45 36.2 78 183/98 (126) 06/22/17 12:30 55 93/60 06/22/17 12:15 79 146/89 06/22/17 12:00 92 168/83 06/22/17 11:45 66 172/84 06/22/17 11:30 80 103/76 06/22/17 11:15 77 152/78 06/22/17 11:00 78 161/74 06/22/17 10:45 77 164/88 06/22/17 10:30 74 167/75 06/22/17 10:15 81 152/86 06/22/17 10:00 64 147/79 06/22/17 09:45 78 161/87 06/22/17 09:44 36.9 83 163/92 (115) 06/22/17 07:45 Room Air 06/22/17 07:00 36.7 80 20 191/93 (125) 96 Room Air 06/22/17 04:08 36.4 89 16 181/87 (118) 94 Room Air 06/22/17 00:04 36.9 83 20 181/84 (116) 96 Room Air 06/22/17 00:00 Room Air 06/21/17 20:00 Room Air 06/21/17 19:24 36.6 77 18 178/90 (119) 94 Room Air 06/21/17 18:03 36.6 76 18 166/89 (114) 96 Room Air 06/21/17 18:00 Room Air 06/21/17 17:20 80 170/97 06/21/17 17:15 75 134/75 06/21/17 17:15 80 170/97 06/21/17 17:00 80 139/84 06/21/17 16:45 75 139/85 06/21/17 16:30 77 130/80 06/21/17 16:15 78 155/92 06/21/17 16:00 83 129/90 06/21/17 15:45 80 131/92 06/21/17 15:30 75 137/81 06/21/17 15:15 76 117/72 06/21/17 15:09 36.2 74 160/74 (102) 06/21/17 15:00 74 144/77 06/21/17 14:45 76 146/85 06/21/17 14:30 75 154/96 06/21/17 14:15 76 163/80 06/21/17 14:00 69 155/92 Physical Exam General Appearance: no apparent distress Eyes: PERRL ENT: hearing grossly normal Neck: supple Respiratory/Chest: lungs clear, no respiratory distress, no accessory muscle use Cardiovascular: regular rate, rhythm Abdomen: normal bowel sounds, non tender, soft Extremities: no pedal edema, no calf tenderness, + swelling (L hand, non- pitting ), + pertinent finding (L hand: mild warmth, no noted erythema or drainage; finger flexion improving ) Neurologic/Psychiatric: alert, normal mood/affect, oriented x 3 Skin: normal color, warm/dry, no rash Laboratory Results Last 24 Hours Test 06/21/17 17:57 06/21/17 20:18 06/22/17 00:01 06/22/17 04:16 Bedside Glucose 129 mg/dl 199 mg/dl 181 mg/dl 124 mg/dl Test 06/22/17 05:35 06/22/17 07:40 06/22/17 11:36 White Blood Count 9.38 K/uL Red Blood Count 3.42 M/uL Hemoglobin 9.3 g/dL Hematocrit 29.7 % Mean Corpuscular Volume 86.8 fL Mean Corpuscular Hemoglobin 27.2 pg Mean Corpuscular Hemoglobin Concent 31.3 g/dl RDW Standard Deviation 61.7 fL RDW Coefficient of Variation 20.6 % Platelet Count 100 K/uL Mean Platelet Volume 10.0 fL Nucleated RBC Absolute Count (auto) 0.20 K/uL Nucleated Red Blood Cells % 2.2 % Platelet Estimate DECREASED Sodium Level 140 mmol/L Potassium Level 4.2 mmol/L Chloride Level 103 mmol/L Carbon Dioxide Level 29 mmol/L Anion Gap 8.0 mmol/L Blood Urea Nitrogen 50 mg/dl Creatinine 3.45 mg/dl Est Creatinine Clear Calc Drug Dose 23.3 ml/min Estimated GFR () 20.7 Estimated GFR (Non- 17.8 BUN/Creatinine Ratio 14.3 Random Glucose 110 mg/dl Calcium Level 8.0 mg/dl Magnesium Level 2.2 mg/dl Bedside Glucose 94 mg/dl 134 mg/dl Assessment and Plan Mr. 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 Patient was recently admitted for L hand infection caused by a drill bit puncture x 2 weeks ago. He has almost completed his antibiotic course of Rocephin and Vancomycin. 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 Ferreira Metastatic RCC s/p L nephrectomy- follows with Cancer [facility]: - Cabometyx 60 mg daily - Pain control with Methadone 10 mg TID, Fentanyl, and Oxycodone 10 mg TID - MiraLAX daily HTN: - Amlodipine 10 mg daily, Lopressor 100 mg BID, Hydralazine 100 mg TID, Lasix 40 mg daily - Lisinopril 20 mg QAM added for better BP control HLD: Simvastatin 20 mg daily BPH: Flomax 0.4 mg HS DVT Prophylaxis: Heparin 5000 units Q12H Code Status: LEVEL I, FULL RESUSCITATION Disposition: Discharge to home once medically stable- likely tomorrow - Needs 10 days more of IV antibiotics- scripts in chart- CM aware and setting up [facility]HS
[2017-06-22] MEDS: DAPTOmycin IV 350 MG in SYRINGE 0 ML IV SCH (16:13)
[2017-06-22] MEDS: SIMVASTATIN 20 MG TAB PO SCH (20:27)
[2017-06-22] MEDS: TAMSULOSIN HCL 0.4 MG CAP PO SCH (20:29)
[2017-06-22] MEDS: INSULIN GLARGINE SOLOSTAR 100 UNITS/ML 3 ML PEN SC SCH (20:44)
[2017-06-23] VITALS (8 sets, daily range): BP systolic 175–191; BP diastolic 78–94; PULSE 76–108; TEMP 36.4–36.7; O2SAT 93–97
[2017-06-23] MEDS: CHECK FENTANYL PATCH PLACEMENT SCH ×3 (00:17→16:30)
[2017-06-23] MEDS ORDERED: METOPROLOL TARTRATE 50 MG TAB PO STA (01:44)
[2017-06-23] MEDS ORDERED: NURSING VERBAL MED ORDER ONE (01:45)
[2017-06-23] MEDS: PIPERACILL/TAZOBAC IV 3.375 GM in DEXTROSE 5% 100ML IV SCH (03:54)
[2017-06-23] MEDS: CABOZANTINIB S MALATE 60 MG PO SCH (05:28)
[2017-06-23] MEDS: HEPARIN SOD 5000 UNIT/0.5 ML CARP SQ SCH ×2 (05:29→17:00)
[2017-06-23] MEDS: CALCIUM CARBONATE 500 MG CHEWABLE PO SCH ×3 (05:31→16:59)
[2017-06-23 06:03] LABS: MEAN CORPUSCULAR HGB CONC 31.7 g/dl (32-36)
[2017-06-23 06:08] LABS: HEMATOCRIT 28.7 % (42-52); MEAN CELL VOLUME 87.2 fL (80-100); MEAN CORPUSCULAR HEMOGLOBIN 27.7 pg (25-34); RED BLOOD COUNT 3.29 M/uL (4.7-6.1); WHITE BLOOD COUNT 10.03 K/uL (4.8-10.8)
[2017-06-23] MEDS: INSULIN ASPART 100 UNITS/ML 3 ML PEN SC SCH ×4 (06:30→21:00)
[2017-06-23 06:34] LABS: BUN/CREATININE RATIO 13.1 (10-20); CALCIUM 7.6 mg/dl (8.5-10.1); CREATININE 3.39 mg/dl (0.60-1.40); MAGNESIUM 2.1 mg/dl (1.8-2.4); POTASSIUM 4.1 mmol/L (3.5-5.1)
[2017-06-23 06:35] LABS: MEAN PLATELET VOLUME 10.6 fL (7.4-10.4); PLATELET COUNT 107 K/uL (130-400); PLT ESTIMATE DECREASED
[2017-06-23] MEDS: METOPROLOL TARTRATE 100 MG TAB PO SCH (07:37)
[2017-06-23] MEDS: ASPIRIN 81 MG ECTAB PO SCH (07:37)
[2017-06-23] MEDS: FUROSEMIDE 40 MG TAB PO SCH (07:38)
[2017-06-23] MEDS: AMLODIPINE BESYLATE 5 MG TAB PO SCH (07:39)
[2017-06-23] MEDS: CALCITRIOL 0.25 MCG CAP PO SCH (07:40)
[2017-06-23] MEDS: POLYETHYLENE (MIRALAX) 17 GM PACK PO SCH ×2 (07:41→07:52)
[2017-06-23] MEDS: METHADONE HCL 10 MG TAB PO SCH ×3 (07:52→21:25)
[2017-06-23] MEDS: OXYCODONE HCL IR 5 MG TAB (IMMEDIATE RELEASE) PO SCH ×4 (07:54→21:24)
[2017-06-23] MEDS ORDERED: LISINOPRIL 20 MG TAB PO SCH (08:00)
--- NOTE | 2017-06-23 10:24 | Nephrology Progress Note ---
Nephrology Progress Note Date of Service Jun 23, 2017. Chief Complaint ESRD Roland Causey is unfortunately not feeling well this morning. He denies fevers or chills. He reports a mild headache overnight. He reports a strange sensation of lightheadedness while sitting in bed and mild dizziness. Symptoms have improved slightly this morning but he is sleepy. He states that he can feel that his blood pressure is elevated and notes that he is flushed. His appetite is good. He denies pain in his left hand. He tolerated HD well for an additional 1 L UF. Review of Systems A complete review of systems was performed. Pertinent positives are noted above. All other systems are negative. Vital Signs Last 8 Hrs Date Time Temp Pulse Resp B/P (MAP) Pulse Ox O2 Delivery O2 Flow Rate FiO2 06/23/17 07:20 36.6 79 20 189/78 (115) 95 Room Air 06/23/17 04:04 36.4 84 19 178/94 (122) 97 Room Air 06/23/17 03:13 108 181/79 (113) Last Recorded Weight Weight (Kilograms): 82.900 Physical Exam General Appearance: WD/WN, no apparent distress Head: normocephalic, atraumatic Eyes: normal inspection, sclerae normal ENT: normal ENT inspection, pharynx normal Neck: supple, no JVD Respiratory/Chest: lungs clear, no respiratory distress, no accessory muscle use Cardiovascular: + tachycardia, + systolic murmur Abdomen/GI: non tender, soft Extremities/Musculoskelatal: + pertinent finding (Left hand less swollen this morning, no erythema, no distal embolic lesions; AVF with good thrill and bruit) Neurologic/Psych: alert, normal mood/affect Family History Cervical cancer Diabetes mellitus Heart disease Hypertension Myocardial infarction Pancreatic cancer Prostate cancer Social History Smokeless Tobacco Use: No Alcohol Use: none Drug Use: none Marital Status: single Housing Status: lives alone Occupation: disabled Laboratory Results Past 24 Hours 06/23/17 05:29 06/23/17 05:29 Test 06/22/17 11:36 06/22/17 16:19 06/22/17 20:44 06/23/17 01:24 Bedside Glucose 134 mg/dl (70-99) 167 mg/dl (70-99) 195 mg/dl (70-99) 161 mg/dl (70-99) Test 06/23/17 05:29 06/23/17 07:47 Red Blood Count 3.29 M/uL (4.7-6.1) Mean Corpuscular Volume 87.2 fL (80-100) Mean Corpuscular Hemoglobin 27.7 pg (25-34) Mean Corpuscular Hemoglobin Concent 31.7 g/dl (32-36) RDW Standard Deviation 63.7 fL (36.4-46.3) RDW Coefficient of Variation 21.0 % (11.5-14.5) Mean Platelet Volume 10.6 fL (7.4-10.4) Nucleated RBC Absolute Count (auto) 0.32 K/uL (0-0) Nucleated Red Blood Cells % 3.2 % Platelet Estimate DECREASED Anion Gap 6.0 mmol/L (3-11) Est Creatinine Clear Calc Drug Dose 23.7 ml/min Estimated GFR () 21.1 Estimated GFR (Non- 18.2 BUN/Creatinine Ratio 13.1 (10-20) Calcium Level 7.6 mg/dl (8.5-10.1) Magnesium Level 2.1 mg/dl (1.8-2.4) Bedside Glucose 119 mg/dl (70-99) Allergies Coded Allergies: Iodinated Diagnostic Agents (Verified Allergy, Unknown, oil based, severe headaches, 06/20/17) EVENT OCCURED IN 1971, PT STATES HE HAS HAD 3 DIFFERENT WATER BASED IVP DYES WITH NO ISSUE Medications Current Inpatient Medications Medications (Trade) Dose Ordered Sig/Edward Route Start Time Stop Time Status Last Admin Dose Admin Daptomycin 350 mg/ Syringe 7 ml @ 3.5 mls/min Q48H IV 06/22/17 15:00 07/02/17 14:59 06/22/17 16:13 3.5 MLS/MIN Piperacillin Sod/ Tazobactam Sod 3.375 gm/Dextrose 115 ml @ 28.75 mls/ hr Q12H IV 06/21/17 04:00 07/01/17 03:59 06/23/17 03:54 28.75 MLS/HR Piperacillin Sod/ Tazobactam Sod (Consult) 1 ea UD PRN N/A 06/20/17 15:15 07/20/17 15:14 Acetaminophen (Tylenol Tab) 650 mg Q4H PRN PO 06/20/17 16:30 07/20/17 16:29 06/21/17 03:45 650 MG Al Hydrox/Mg Hydrox/Simethicone (Maalox Max Susp) 15 ml Q4H PRN PO 06/20/17 16:30 07/20/17 16:29 Magnesium Hydroxide (Milk Of Magnesia Susp) 30 ml Q6H PRN PO 06/20/17 16:30 07/20/17 16:29 Polyethylene (Miralax Powder Packet) 17 gm DAILY PRN PO 06/20/17 17:15 07/20/17 17:14 Ondansetron HCl (Zofran Inj) 4 mg Q6H PRN IV 06/20/17 16:30 07/20/17 16:29 Heparin Sodium (Porcine) (Heparin Sq 5000 Unit/0.5ml) 5,000 unit Q12H SQ 06/20/17 18:00 07/20/17 17:59 06/22/17 06:05 5,000 UNIT Insulin Aspart (novoLOG ASPART) SLIDING SCALE If C... ACHS SC 06/20/17 21:00 07/20/17 20:59 06/22/17 20:45 1 UNITS Glucose (Glucose 40% Gel) 15-30 GRAMS 15 GRAMS... UD PRN PO 06/20/17 16:30 07/20/17 16:29 Glucose (Glucose Chew Tab) 4-8 Tablets 4 Tabl... UD PRN PO 06/20/17 16:30 07/20/17 16:29 Dextrose (Dextrose 50% 50ML Syringe) 25-50ML OF 50% DW IV FOR... UD PRN IV 06/20/17 16:30 07/20/17 16:29 Glucagon (Glucagon Inj) 1 mg UD PRN SQ 06/20/17 16:30 07/20/17 16:29 Amlodipine Besylate (Norvasc Tab) 10 mg QAM PO 06/21/17 08:00 07/21/17 08:59 06/23/17 07:39 10 MG Aspirin (Ecotrin Tab) 81 mg QAM PO 06/21/17 08:00 07/21/17 08:59 06/23/17 07:37 81 MG Calcitriol (Rocaltrol Cap) 0.25 mcg Q2D PO 06/20/17 18:00 12/28/17 17:59 06/23/17 07:40 0.25 MCG Furosemide (Lasix Tab) 40 mg QAM PO 06/21/17 08:00 07/21/17 08:59 06/23/17 07:38 40 MG Hydralazine HCl (Apresoline Tab) 100 mg TID PO 06/20/17 20:00 07/20/17 20:59 06/23/17 07:36 100 MG Insulin Glargine (Lantus Solostar Pen) 14 units HS SC 06/20/17 21:00 07/20/17 20:59 06/22/17 20:44 14 UNITS Methadone HCl (Dolophine Tab) 10 mg TID PO 06/20/17 20:00 07/04/17 20:59 06/23/17 07:52 10 MG Metoprolol Tartrate (Lopressor Tab) 100 mg BID PO 06/20/17 20:00 07/20/17 20:59 06/23/17 07:37 100 MG Polyethylene (Miralax Powder Packet) 17 gm DAILY PO 06/21/17 08:00 07/21/17 08:59 06/23/17 07:52 17 GM Prednisone (PredniSONE TAB) 10 mg TID PO 06/20/17 20:00 07/20/17 20:59 06/23/17 07:39 10 MG Simvastatin (Zocor Tab) 20 mg QPM PO 06/20/17 21:00 07/20/17 20:59 06/22/17 20:27 20 MG Tamsulosin HCl (Flomax Cap) 0.4 mg HS PO 06/20/17 21:00 07/20/17 20:59 06/22/17 20:29 0.4 MG Fentanyl (Duragesic Patch) 25 mcg Q3D TD 06/21/17 12:00 07/05/17 11:59 06/21/17 13:10 25 MCG Miscellaneous (Fentanyl Patch Remove & Waste) 1 ea Q3D N/A 06/21/17 11:59 07/21/17 11:58 06/21/17 13:10 1 EA Miscellaneous Information (Check Fentanyl Patch Placement) 1 ea QS N/A 06/21/17 00:00 07/21/17 00:00 06/23/17 07:35 1 EA Calcium Carbonate (Tums Chew Tab) 500 mg AC PO 06/21/17 06:30 07/21/17 06:29 06/23/17 05:31 500 MG Oxycodone HCl (Roxicodone Immediate Rel Tab) 10 mg TID PO 06/20/17 20:00 07/20/17 20:59 06/23/17 07:54 10 MG Cabozantinib (Cabometyx) 60 mg DAILY@0500 PO 06/21/17 05:00 07/21/17 04:59 06/23/17 05:28 60 MG Heparin Sodium (Porcine) (Heparin 100 Unit/ml 5ml Flush) 5 ml PRN PRN IV 06/21/17 05:15 07/21/17 05:14 06/23/17 07:58 5 ML Lisinopril (Zestril Tab) 20 mg QAM PO 06/23/17 08:00 07/23/17 07:59 06/23/17 07:39 20 MG Impression (1) ESRD (end stage renal disease) on dialysis (2) Anemia in chronic kidney disease (3) Cellulitis of left hand Mr. 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 He is maintained on Cabometyx for RCC. Padilla was admitted with a soft tissue infection of the left hand with evidence of progressive infection despite treatment with vancomycin and ceftriaxone. He does not endorse signs or symptoms of systemic infection at this time. Plan of care includes continuing treatment with daptomycin and ertapenem for an additional 7-[address] scan did not show evidence of tenosynovitis, deep collections or osteomyelitis. Blood cultures from admission NGTD. Mr. Christy has ESRD on HD TTS at [facility] [place]. He completed a treatment on Monday and . Net UF 3 L. Volume status appears appropriate. AVF with adequate Qb. No complications with HD. Unfortunately, he has persistent accelerated hypertension. I suspect this explains some of the symptoms that he has been experiencing overnight. Blood pressure remains uncontrolled on amlodipine 10 mg daily, lisinopril 20 mg daily , metoprolol tartrate 100 mg BID and hydralazine 100 mg TID. He is maintained on furosemide 40 mg daily to encourage urine output. Certainly concerning that accelerated blood pressure may be related to cabozantinib. Dose reduction or holding the medication may need to be considered. At this time, I would suggest increasing the beta destinee and ACEi. Increase lisinopril to 40 mg and metoprolol tartrate to 150 mg BID. Avoid medications that may interfere with cabozantinib metabolism and check with pharmacy to make sure there are no concerning interactions with the current medications. Recommendations ESRD: -- HD TTS -- Metabolic profile and volume status currently appropriate -- Protect LUE AVF -- Medications appropriately dosed for renal function Anemia: -- Epogen [id number] with HD on 06/22 -- Repeat CBC prior to dialysis tomorrow Hypertension: -- Check with pharmacy for potential interactions with cabozantinib metabolism -- Increase lisinopril to 40 mg -- Increase metoprolol tartrate to 150 mg BID -- May need to discuss therapy adjustment with oncology if BP remains accelerated L hand cellulitis: -- ID consult appreciated -- Clinically improving with current therapy
[2017-06-23] MEDS ORDERED: LISINOPRIL 20 MG TAB PO ONE (10:30)
[2017-06-23] MEDS ORDERED: ERTAPENEM IV 1 GM in SODIUM CHLOR 0.9% AD-VAN 50ML 50 ML IV SCH (12:30)
--- NOTE | 2017-06-23 12:51 | Progress Note ---
Subjective Date of Service: Jun 23, 2017. Subjective Pt evaluation today including: conversation w/ patient, physical exam, chart review, lab review, review of studies, review of inpatient medication list Pt reported some chest discomfort this AM BP remains elevated Less swelling and redness in hand, but pt reports range of motion is the same Problem List Medical Problems: (1) Acute dyspnea Status: Acute (2) Chronic kidney disease Status: Acute (3) Failure of outpatient treatment Status: Acute (4) Left arm cellulitis Status: Acute (5) Renal cell carcinoma Status: Acute Review of Systems Constitutional: No fever, No chills, No sweats, No weight loss ENT: No hearing loss, No unusual epistaxis, No nasal symptoms, No sore throat Respiratory: No cough, No sputum, No wheezing, No shortness of breath Cardiac: + chest pain, No orthopnea, No PND, No edema Abdomen: No pain, No nausea, No vomiting, No diarrhea, No constipation Musculoskeletal: No joint pain, No muscle pain, No swelling, No calf pain Male : No dysuria, No urinary frequency, No incontinence, No slowing stream Neurologic: No memory loss, No paralysis, No weakness, No numbness/tingling Psychiatric: No depression symptoms, No anhedonism, No anxiety, No insomnia Skin: No rash, No itch Objective Vital Signs Date Time Temp Pulse Resp B/P (MAP) Pulse Ox O2 Delivery O2 Flow Rate FiO2 06/23/17 11:31 36.6 79 18 175/84 (114) 94 Room Air 06/23/17 11:05 82 177/83 (114) 06/23/17 08:00 Room Air 06/23/17 07:20 36.6 79 20 189/78 (115) 95 Room Air 06/23/17 04:04 36.4 84 19 178/94 (122) 97 Room Air 06/23/17 03:13 108 181/79 (113) 06/23/17 00:00 Room Air 06/22/17 23:41 36.7 86 22 186/94 (124) 96 Room Air 06/22/17 19:21 37.0 91 16 182/94 (123) 95 Room Air 06/22/17 16:10 Room Air 06/22/17 15:13 36.6 79 16 178/91 (120) 94 Room Air Physical Exam General Appearance: WD/WN, no apparent distress Eyes: normal inspection, PERRL, EOMI, sclerae normal Neck: supple, no adenopathy, thyroid normal, no JVD Respiratory/Chest: chest non-tender, lungs clear, normal breath sounds, no respiratory distress Cardiovascular: regular rate, rhythm, no edema, no gallop, no JVD Abdomen: normal bowel sounds, non tender, soft, no organomegaly Extremities: no pedal edema, no calf tenderness, + pertinent finding (right hand swelling, redness reduced) Neurologic/Psychiatric: no motor/sensory deficits, alert, normal mood/affect, oriented x 3 Skin: normal color, warm/dry, no rash Lymphatic: no adenopathy Laboratory Results Last 24 Hours Test 06/22/17 16:19 06/22/17 20:44 06/23/17 01:24 06/23/17 05:29 Bedside Glucose 167 mg/dl 195 mg/dl 161 mg/dl White Blood Count 10.03 K/uL Red Blood Count 3.29 M/uL Hemoglobin 9.1 g/dL Hematocrit 28.7 % Mean Corpuscular Volume 87.2 fL Mean Corpuscular Hemoglobin 27.7 pg Mean Corpuscular Hemoglobin Concent 31.7 g/dl RDW Standard Deviation 63.7 fL RDW Coefficient of Variation 21.0 % Platelet Count 107 K/uL Mean Platelet Volume 10.6 fL Nucleated RBC Absolute Count (auto) 0.32 K/uL Nucleated Red Blood Cells % 3.2 % Platelet Estimate DECREASED Sodium Level 138 mmol/L Potassium Level 4.1 mmol/L Chloride Level 101 mmol/L Carbon Dioxide Level 31 mmol/L Anion Gap 6.0 mmol/L Blood Urea Nitrogen 44 mg/dl Creatinine 3.39 mg/dl Est Creatinine Clear Calc Drug Dose 23.7 ml/min Estimated GFR () 21.1 Estimated GFR (Non- 18.2 BUN/Creatinine Ratio 13.1 Random Glucose 154 mg/dl Calcium Level 7.6 mg/dl Magnesium Level 2.1 mg/dl Test 06/23/17 07:47 06/23/17 11:33 Bedside Glucose 119 mg/dl 203 mg/dl Assessment and Plan Mr. 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 Patient was recently admitted for L hand infection caused by a drill bit puncture x 2 weeks ago. He has almost completed his antibiotic course of Rocephin and Vancomycin. 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 Ferreira Metastatic RCC s/p L nephrectomy- follows with [facility]: - Cabometyx 60 mg daily - Pain control with Methadone 10 mg TID, Fentanyl, and Oxycodone 10 mg TID - MiraLAX daily HTN: - Continue amlodipine 10 mg daily, Lopressor 100 mg BID, hydralazine 100 mg TID , lasix 40 mg daily - Lisinopril increased to 40 mg QAM added for better BP control - Lopressor increased to 150 mg PO BID as well HLD: Simvastatin 20 mg daily BPH: Flomax 0.4 mg HS DVT Prophylaxis: Heparin 5000 units Q12H Code Status: LEVEL I, FULL RESUSCITATION
[2017-06-23] MEDS: ERTAPENEM IV 500 MG in SODIUM CHLORIDE 0.9% 50 ML IV SCH (13:07)
--- NOTE | 2017-06-23 15:06 | Infectious Disease Progress Nt ---
Progress Note Date of Service Jun 23, 2017. Subjective Pt evaluation today including: conversation w/ patient, physical exam, chart review, lab review, review of studies, conversation w/ hr business partner consultant, review of inpatient medication list Patient offering no new complaints today. Pain controlled in left hand. No fever. Tolerating antibiotics without apparent difficulty. All Other Systems: Reviewed and Negative Medications Current Inpatient Medications Medications (Trade) Dose Ordered Sig/Edward Route Start Time Stop Time Status Last Admin Dose Admin Daptomycin 350 mg/ Syringe 7 ml @ 3.5 mls/min Q48H IV 06/22/17 15:00 07/02/17 14:59 06/22/17 16:13 3.5 MLS/MIN Acetaminophen (Tylenol Tab) 650 mg Q4H PRN PO 06/20/17 16:30 07/20/17 16:29 06/21/17 03:45 650 MG Al Hydrox/Mg Hydrox/Simethicone (Maalox Max Susp) 15 ml Q4H PRN PO 06/20/17 16:30 07/20/17 16:29 Magnesium Hydroxide (Milk Of Magnesia Susp) 30 ml Q6H PRN PO 06/20/17 16:30 07/20/17 16:29 Polyethylene (Miralax Powder Packet) 17 gm DAILY PRN PO 06/20/17 17:15 07/20/17 17:14 Ondansetron HCl (Zofran Inj) 4 mg Q6H PRN IV 06/20/17 16:30 07/20/17 16:29 Heparin Sodium (Porcine) (Heparin Sq 5000 Unit/0.5ml) 5,000 unit Q12H SQ 06/20/17 18:00 07/20/17 17:59 06/22/17 06:05 5,000 UNIT Insulin Aspart (novoLOG ASPART) SLIDING SCALE If C... ACHS SC 06/20/17 21:00 07/20/17 20:59 06/23/17 13:04 1 UNITS Glucose (Glucose 40% Gel) 15-30 GRAMS 15 GRAMS... UD PRN PO 06/20/17 16:30 07/20/17 16:29 Glucose (Glucose Chew Tab) 4-8 Tablets 4 Tabl... UD PRN PO 06/20/17 16:30 07/20/17 16:29 Dextrose (Dextrose 50% 50ML Syringe) 25-50ML OF 50% DW IV FOR... UD PRN IV 06/20/17 16:30 07/20/17 16:29 Glucagon (Glucagon Inj) 1 mg UD PRN SQ 06/20/17 16:30 07/20/17 16:29 Amlodipine Besylate (Norvasc Tab) 10 mg QAM PO 06/21/17 08:00 07/21/17 08:59 06/23/17 07:39 10 MG Aspirin (Ecotrin Tab) 81 mg QAM PO 06/21/17 08:00 07/21/17 08:59 06/23/17 07:37 81 MG Calcitriol (Rocaltrol Cap) 0.25 mcg Q2D PO 06/20/17 18:00 07/20/17 17:59 06/23/17 07:40 0.25 MCG Furosemide (Lasix Tab) 40 mg QAM PO 06/21/17 08:00 07/21/17 08:59 06/23/17 07:38 40 MG Hydralazine HCl (Apresoline Tab) 100 mg TID PO 06/20/17 20:00 07/20/17 20:59 06/23/17 14:03 100 MG Insulin Glargine (Lantus Solostar Pen) 14 units HS SC 06/20/17 21:00 07/20/17 20:59 06/22/17 20:44 14 UNITS Methadone HCl (Dolophine Tab) 10 mg TID PO 06/20/17 20:00 07/04/17 20:59 06/23/17 14:04 10 MG Polyethylene (Miralax Powder Packet) 17 gm DAILY PO 06/21/17 08:00 07/21/17 08:59 06/23/17 07:52 17 GM Prednisone (PredniSONE TAB) 10 mg TID PO 06/20/17 20:00 07/20/17 20:59 06/23/17 14:03 10 MG Simvastatin (Zocor Tab) 20 mg QPM PO 06/20/17 21:00 07/20/17 20:59 06/22/17 20:27 20 MG Tamsulosin HCl (Flomax Cap) 0.4 mg HS PO 06/20/17 21:00 07/20/17 20:59 11/30/17 20:29 0.4 MG Fentanyl (Duragesic Patch) 25 mcg Q3D TD 06/21/17 12:00 07/05/17 11:59 06/21/17 13:10 25 MCG Miscellaneous (Fentanyl Patch Remove & Waste) 1 ea Q3D N/A 06/21/17 11:59 07/21/17 11:58 06/21/17 13:10 1 EA Miscellaneous Information (Check Fentanyl Patch Placement) 1 ea QS N/A 06/21/17 00:00 07/21/17 00:00 06/23/17 07:35 1 EA Calcium Carbonate (Tums Chew Tab) 500 mg AC PO 06/21/17 06:30 07/21/17 06:29 06/23/17 11:06 500 MG Oxycodone HCl (Roxicodone Immediate Rel Tab) 10 mg TID PO 06/20/17 20:00 07/20/17 20:59 06/23/17 14:04 10 MG Cabozantinib (Cabometyx) 60 mg DAILY@0500 PO 06/21/17 05:00 07/21/17 04:59 06/23/17 05:28 60 MG Heparin Sodium (Porcine) (Heparin 100 Unit/ml 5ml Flush) 5 ml PRN PRN IV 06/21/17 05:15 07/21/17 05:14 06/23/17 14:06 5 ML Lisinopril (Zestril Tab) 40 mg QAM PO 06/24/17 08:00 07/23/17 07:59 Metoprolol Tartrate (Lopressor Tab) 150 mg BID PO 06/23/17 20:00 07/20/17 20:59 Ertapenem 500 mg/ Sodium Chloride 55 ml @ 110 mls/hr DAILY@1300 IV 06/23/17 13:00 07/03/17 12:59 06/23/17 13:07 110 MLS/HR Objective Vital Signs Date Time Temp Pulse Resp B/P (MAP) Pulse Ox O2 Delivery O2 Flow Rate FiO2 06/23/17 14:59 36.7 86 18 177/91 (119) 96 Room Air 06/23/17 11:31 36.6 79 18 175/84 (114) 94 Room Air 06/23/17 11:05 82 177/83 (114) 06/23/17 08:00 Room Air 12/1/17 07:20 36.6 79 20 189/78 (115) 95 Room Air 06/23/17 04:04 36.4 84 19 178/94 (122) 97 Room Air 06/23/17 03:13 108 181/79 (113) 06/23/17 00:00 Room Air 06/22/17 23:41 36.7 86 22 186/94 (124) 96 Room Air 06/22/17 19:21 37.0 91 16 182/94 (123) 95 Room Air 06/22/17 16:10 Room Air 06/22/17 15:13 36.6 79 16 178/91 (120) 94 Room Air Physical Exam General Appearance: WD/WN, no apparent distress Eyes: normal inspection, EOMI, sclerae normal ENT: normal ENT inspection, pharynx normal Neck: supple, no adenopathy, thyroid normal, trachea midline Respiratory/Chest: chest non-tender, lungs clear, normal breath sounds, no respiratory distress Cardiovascular: regular rate, rhythm, no gallop, no murmur Abdomen: normal bowel sounds, non tender, soft, no organomegaly Extremities: non-tender, no calf tenderness Neurologic/Psychiatric: alert, oriented x 3 Skin: normal color, no rash, + pertinent finding (Left hand swelling and erythema improved) Lymphatic: no adenopathy Laboratory Results Last 24 Hours Test 06/22/17 16:19 06/22/17 20:44 06/23/17 01:24 06/23/17 05:29 Bedside Glucose 167 mg/dl 195 mg/dl 161 mg/dl White Blood Count 10.03 K/uL Red Blood Count 3.29 M/uL Hemoglobin 9.1 g/dL Hematocrit 28.7 % Mean Corpuscular Volume 87.2 fL Mean Corpuscular Hemoglobin 27.7 pg Mean Corpuscular Hemoglobin Concent 31.7 g/dl RDW Standard Deviation 63.7 fL RDW Coefficient of Variation 21.0 % Platelet Count 107 K/uL Mean Platelet Volume 10.6 fL Nucleated RBC Absolute Count (auto) 0.32 K/uL Nucleated Red Blood Cells % 3.2 % Platelet Estimate DECREASED Sodium Level 138 mmol/L Potassium Level 4.1 mmol/L Chloride Level 101 mmol/L Carbon Dioxide Level 31 mmol/L Anion Gap 6.0 mmol/L Blood Urea Nitrogen 44 mg/dl Creatinine 3.39 mg/dl Est Creatinine Clear Calc Drug Dose 23.7 ml/min Estimated GFR () 21.1 Estimated GFR (Non- 18.2 BUN/Creatinine Ratio 13.1 Random Glucose 154 mg/dl Calcium Level 7.6 mg/dl Magnesium Level 2.1 mg/dl Test 06/23/17 07:47 06/23/17 11:33 Bedside Glucose 119 mg/dl 203 mg/dl Assessment and Plan Cellulitis of left hand and forearm after drill bit injury, with worsening on vancomycin and ceftriaxone but now improving on IV antibiotics. Will can continue patient on daptomycin and ertapenem likely for another 10 days or so. Will follow while in the hospital.
[2017-06-23] MEDS: METOPROLOL TARTRATE 50 MG TAB PO SCH (21:26)
[2017-06-23] MEDS: TAMSULOSIN HCL 0.4 MG CAP PO SCH (21:27)
[2017-06-23] MEDS: SIMVASTATIN 20 MG TAB PO SCH (21:30)
[2017-06-23] MEDS: INSULIN GLARGINE SOLOSTAR 100 UNITS/ML 3 ML PEN SC SCH (21:35)
[2017-06-23] MEDS ORDERED: OLMESARTAN MEDOXOMIL 20 MG TAB PO ONE (23:29)
[2017-06-24] VITALS (19 sets, daily range): BP systolic 129–185; BP diastolic 52–99; PULSE 71–90; TEMP 36.2–36.8; O2SAT 94–95
[2017-06-24] MEDS: HEPARIN SOD 5000 UNIT/0.5 ML CARP SQ SCH (05:14)
[2017-06-24] MEDS: CABOZANTINIB S MALATE 60 MG PO SCH (05:14)
[2017-06-24] MEDS: CALCIUM CARBONATE 500 MG CHEWABLE PO SCH ×2 (05:15→14:01)
[2017-06-24] MEDS: INSULIN ASPART 100 UNITS/ML 3 ML PEN SC SCH ×2 (06:30→11:00)
[2017-06-24] MEDS: CHECK FENTANYL PATCH PLACEMENT SCH ×2 (07:41)
[2017-06-24] MEDS: OXYCODONE HCL IR 5 MG TAB (IMMEDIATE RELEASE) PO SCH ×2 (07:43→14:00)
[2017-06-24] MEDS: METHADONE HCL 10 MG TAB PO SCH ×2 (07:44→14:00)
[2017-06-24] MEDS: POLYETHYLENE (MIRALAX) 17 GM PACK PO SCH (07:44)
[2017-06-24] MEDS: FUROSEMIDE 40 MG TAB PO SCH (07:45)
[2017-06-24] MEDS: ASPIRIN 81 MG ECTAB PO SCH (07:45)
[2017-06-24] MEDS: AMLODIPINE BESYLATE 5 MG TAB PO SCH (07:45)
[2017-06-24] MEDS: METOPROLOL TARTRATE 50 MG TAB PO SCH (07:48)
[2017-06-24] MEDS ORDERED: LISINOPRIL 40 MG TAB PO SCH (08:00)
[2017-06-24] MEDS ORDERED: OLMESARTAN MEDOXOMIL 20 MG TAB PO SCH (08:00)
[2017-06-24] MEDS ORDERED: LCTX OR (11:28)
[2017-06-24] MEDS: FENTANYL PATCH REMOVE & WASTE SCH (11:59)
--- NOTE | 2017-06-24 12:03 | Nephrology Progress Note ---
Nephrology Progress Note Date of Service Jun 24, 2017. Chief Complaint ESRD Roland Causey was seen and evaluated during hemodialysis this morning. He is tolerating hemodialysis well. He states that he feels slightly better than he did yesterday. He still feels slightly disconnected and reports a persistent fogginess. He cannot be more specific in describing the symptoms. Headache has improved. He is not confused. He slept better yesterday. He also reports that flushing in his face has improved. UF goal has been increased on dialysis and he is tolerating fluid removal well. No shortness of breath. No chest pain. Current BP during hemodialysis 165/90 mmHg. Review of Systems A complete review of systems was performed. Pertinent positives are noted above. All other systems are negative. Vital Signs Last 8 Hrs Date Time Temp Pulse Resp B/P (MAP) Pulse Ox O2 Delivery O2 Flow Rate FiO2 06/24/17 11:45 80 139/86 06/24/17 11:30 78 146/83 06/24/17 11:15 73 155/80 06/24/17 11:00 86 152/89 06/24/17 10:45 86 165/52 06/24/17 10:30 81 162/88 06/24/17 10:15 84 167/84 06/24/17 10:00 81 172/91 06/24/17 09:45 84 172/91 06/24/17 09:30 84 184/94 06/24/17 09:30 36.6 86 185/96 (125) 06/24/17 08:00 Room Air 06/24/17 07:27 36.6 80 20 183/88 (119) 95 Room Air 06/24/17 04:29 36.8 80 18 175/84 (114) 95 Room Air Last Recorded Weight Weight (Kilograms): 84.500 Physical Exam General Appearance: WD/WN, no apparent distress Head: normocephalic, atraumatic Eyes: normal inspection, sclerae normal ENT: normal ENT inspection, pharynx normal Neck: supple, no JVD Respiratory/Chest: lungs clear, no respiratory distress, no accessory muscle use Cardiovascular: regular rate, rhythm, no gallop, no murmur Abdomen/GI: non tender, soft Extremities/Musculoskelatal: normal inspection, no pedal edema, + pertinent finding (AVF with Qb 300) Neurologic/Psych: alert, normal mood/affect Family History Cervical cancer Diabetes mellitus Heart disease Hypertension Myocardial infarction Pancreatic cancer Prostate cancer Social History Smokeless Tobacco Use: No Alcohol Use: none Drug Use: none Marital Status: single Housing Status: lives alone Occupation: disabled Laboratory Results Past 24 Hours Test 06/23/17 16:22 06/23/17 20:31 06/24/17 07:17 Bedside Glucose 150 mg/dl (70-99) 155 mg/dl (70-99) 144 mg/dl (70-99) Allergies Coded Allergies: Iodinated Diagnostic Agents (Verified Allergy, Unknown, oil based, severe headaches, 06/20/17) EVENT OCCURED IN 1971, PT STATES HE HAS HAD 3 DIFFERENT WATER BASED IVP DYES WITH NO ISSUE Medications Current Inpatient Medications Medications (Trade) Dose Ordered Sig/Edward Route Start Time Stop Time Status Last Admin Dose Admin Daptomycin 350 mg/ Syringe 7 ml @ 3.5 mls/min Q48H IV 06/22/17 15:00 07/02/17 14:59 06/22/17 16:13 3.5 MLS/MIN Acetaminophen (Tylenol Tab) 650 mg Q4H PRN PO 06/20/17 16:30 07/20/17 16:29 06/21/17 03:45 650 MG Al Hydrox/Mg Hydrox/Simethicone (Maalox Max Susp) 15 ml Q4H PRN PO 06/20/17 16:30 07/20/17 16:29 Magnesium Hydroxide (Milk Of Magnesia Susp) 30 ml Q6H PRN PO 06/20/17 16:30 07/20/17 16:29 Polyethylene (Miralax Powder Packet) 17 gm DAILY PRN PO 06/20/17 17:15 07/20/17 17:14 Ondansetron HCl (Zofran Inj) 4 mg Q6H PRN IV 06/20/17 16:30 07/20/17 16:29 Heparin Sodium (Porcine) (Heparin Sq 5000 Unit/0.5ml) 5,000 unit Q12H SQ 06/20/17 18:00 07/20/17 17:59 06/22/17 06:05 5,000 UNIT Insulin Aspart (novoLOG ASPART) SLIDING SCALE If C... ACHS SC 06/20/17 21:00 07/20/17 20:59 06/23/17 13:04 1 UNITS Glucose (Glucose 40% Gel) 15-30 GRAMS 15 GRAMS... UD PRN PO 06/20/17 16:30 07/20/17 16:29 Glucose (Glucose Chew Tab) 4-8 Tablets 4 Tabl... UD PRN PO 06/20/17 16:30 07/20/17 16:29 Dextrose (Dextrose 50% 50ML Syringe) 25-50ML OF 50% DW IV FOR... UD PRN IV 06/20/17 16:30 07/20/17 16:29 Glucagon (Glucagon Inj) 1 mg UD PRN SQ 06/20/17 16:30 07/20/17 16:29 Amlodipine Besylate (Norvasc Tab) 10 mg QAM PO 06/21/17 08:00 07/21/17 08:59 06/24/17 07:45 10 MG Aspirin (Ecotrin Tab) 81 mg QAM PO 06/21/17 08:00 07/21/17 08:59 06/24/17 07:45 81 MG Calcitriol (Rocaltrol Cap) 0.25 mcg Q2D PO 06/20/17 18:00 07/20/17 17:59 06/23/17 07:40 0.25 MCG Furosemide (Lasix Tab) 40 mg QAM PO 06/21/17 08:00 07/21/17 08:59 06/24/17 07:45 40 MG Hydralazine HCl (Apresoline Tab) 100 mg TID PO 06/20/17 20:00 07/20/17 20:59 06/24/17 07:49 100 MG Insulin Glargine (Lantus Solostar Pen) 14 units HS SC 06/20/17 21:00 07/20/17 20:59 06/23/17 21:35 14 UNITS Methadone HCl (Dolophine Tab) 10 mg TID PO 06/20/17 20:00 07/04/17 20:59 06/24/17 07:44 10 MG Polyethylene (Miralax Powder Packet) 17 gm DAILY PO 06/21/17 08:00 07/21/17 08:59 06/24/17 07:44 17 GM Prednisone (PredniSONE TAB) 10 mg TID PO 06/20/17 20:00 07/20/17 20:59 06/24/17 07:46 10 MG Simvastatin (Zocor Tab) 20 mg QPM PO 06/20/17 21:00 07/20/17 20:59 06/23/17 21:30 20 MG Tamsulosin HCl (Flomax Cap) 0.4 mg HS PO 06/20/17 21:00 07/20/17 20:59 06/23/17 21:27 0.4 MG Fentanyl (Duragesic Patch) 25 mcg Q3D TD 06/21/17 12:00 07/05/17 11:59 06/21/17 13:10 25 MCG Miscellaneous (Fentanyl Patch Remove & Waste) 1 ea Q3D N/A 06/21/17 11:59 07/21/17 11:58 06/21/17 13:10 1 EA Miscellaneous Information (Check Fentanyl Patch Placement) 1 ea QS N/A 06/21/17 00:00 07/21/17 00:00 06/24/17 07:41 1 EA Calcium Carbonate (Tums Chew Tab) 500 mg AC PO 06/21/17 06:30 07/21/17 06:29 06/24/17 05:15 500 MG Oxycodone HCl (Roxicodone Immediate Rel Tab) 10 mg TID PO 06/20/17 20:00 07/20/17 20:59 06/24/17 07:43 10 MG Cabozantinib (Cabometyx) 60 mg DAILY@0500 PO 06/21/17 05:00 07/21/17 04:59 06/24/17 05:14 60 MG Heparin Sodium (Porcine) (Heparin 100 Unit/ml 5ml Flush) 5 ml PRN PRN IV 06/21/17 05:15 07/21/17 05:14 06/23/17 14:06 5 ML Lisinopril (Zestril Tab) 40 mg QAM PO 06/24/17 08:00 07/23/17 07:59 06/24/17 07:47 40 MG Metoprolol Tartrate (Lopressor Tab) 150 mg BID PO 06/23/17 20:00 07/20/17 20:59 06/24/17 07:48 150 MG Ertapenem 500 mg/ Sodium Chloride 55 ml @ 110 mls/hr DAILY@1300 IV 12/1/17 13:00 07/03/17 12:59 06/23/17 13:07 110 MLS/HR Olmesartan (Benicar Tab) 20 mg QAM PO 06/24/17 08:00 07/24/17 07:59 06/24/17 07:42 20 MG Impression (1) ESRD (end stage renal disease) on dialysis (2) Anemia in chronic kidney disease (3) Cellulitis of left hand Mr. 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 He is maintained on Cabometyx for RCC. Padilla was admitted with a soft tissue infection of the left hand with evidence of progressive infection despite treatment with vancomycin and ceftriaxone. No signs or symptoms of systemic infection noted. Plan of care includes continuing treatment with daptomycin and ertapenem for an additional 7-[address] scan did not show evidence of tenosynovitis, deep collections or osteomyelitis. Blood cultures from admission showed no growth. Mr. Christy has ESRD and is on HD TTS at [facility] in [place]. He started dialysis in May. Volume status appears appropriate. AVF with adequate Qb. No complications with HD. Unfortunately, he has persistent accelerated hypertension. He appears mildly symptomatic. Blood pressure remains uncontrolled on amlodipine 10 mg daily, lisinopril 40 mg daily, metoprolol tartrate 150 mg BID and hydralazine 100 mg TID. Olmesartan was added overnight. He is maintained on furosemide 40 mg daily to encourage urine output. Certainly concerning that accelerated blood pressure may be related to cabozantinib. I did discuss this with Dr. Dao. Holding the medication is to be considered if BP does not improve with dialysis today and additional adjustments in antihypertensive medications. By review of current medications with oncology pharmacist there are no concerning interactions. Recommendations ESRD: -- HD today, UF goal 3 L as tolerated -- Qb appropriate -- Medications appropriately dosed for renal function -- Plan next HD for Monday Anemia: -- Epogen [id number] with HD on 06/22 -- Additional doses held at this time given BP -- Monitor CBC pre-HD Hypertension: -- Discussed with oncology -- If not improvement with current therapy and UF will plan to hold TKI L hand cellulitis: -- ID consult appreciated -- Clinically improving with current therapy
[2017-06-24] MEDS ORDERED: LSN40 OR (12:23)
[2017-06-24] MEDS: ERTAPENEM IV 500 MG in SODIUM CHLORIDE 0.9% 50 ML IV SCH (13:59)
[2017-06-24] MEDS: FENTANYL 25 MCG/HR TDSY TD SCH (14:02)
[2017-06-24] MEDS: DAPTOmycin IV 350 MG in SYRINGE 0 ML IV SCH (14:52)
--- NOTE | 2017-06-24 15:27 | Discharge Summary ---
Discharge Summary Date of Service Jun 24, 2017. Discharge Summary Admission Date: Jun 20, 2017 at 16:27 Discharge Date: Jun 23, 2017 Discharge Disposition: Home Principal Diagnosis: left hand cellulitis Immunizations: Have You Had Influenza Vaccine: Yes Influenza Vaccine Date: May 14, 2015 History of Tetanus Vaccine?: Yes Tetanus Immunization Date: Sep 14, 2011 History of Pneumococcal: Yes Pneumococcal Date: Sep 14, 2013 History of Hepatitis B Vaccine: No Procedures: L hand cellulitis ESRD on HD on , , SAT: T2DM: Suspected COPD Metastatic RCC s/p L nephrectomy HTN HLD BPH Medication Reconciliation New Medications: Daptomycin (Daptomycin) 500 Mg Inj 350 MG IV Q48H for 10 Days Ertapenem Sodium (Invanz) 1 Gm Inj 500 MG IV DAILY for 10 Days, VIAL Lactobacillus Acidophilus (Floranex) 1 Tab Tab 2 TABS OR TID for 15 Days Lisinopril (Lisinopril) 40 Mg Tab 1 TAB OR DAILY for 30 Days Continued Medications: Amlodipine (Norvasc) 10 Mg Tab 10 MG PO QAM, TAB Aspirin (Aspirin Ec) 81 Mg Tab 81 MG PO QAM Cabozantinib S-Malate (Cabometyx) 60 Mg Tab 60 MG PO QAM Calcitriol (Calcitriol) 0.25 Mcg Cap 0.25 MCG PO Q2D Calcium Carbonate (Tums) 500 Mg Chew 500 MG PO WM Fentanyl (Fentanyl) 75 Mcg/Hr Dis 25 PATCH TOP [id number] Furosemide (Furosemide) 40 Mg Tab 40 MG PO QAM Hydralazine Hcl (Apresoline) 100 Mg Tab 100 MG PO TID, TAB Insulin Glargine (Lantus Solostar) 100 Unit/Ml Inj 14 UNITS SC HS Insulin Isophane (Human) (Humulin N Kwikpen) 100 Unit/Ml Inj UNITS SC TID 1 UNIT/10 CARB Methadone HCl (Methadone HCl) 10 Mg Tab 10 MG PO TID Metoprolol Tartrate (Lopressor) (Lopressor) 100 Mg Tab 100 MG PO BID Oxycodone Hcl (Oxycodone Hcl) 10 Mg Tab 10 MG PO TID Polyethylene (Miralax) 17 Gm Pow 17 GM PO DAILY PRN for Constipation for 10 Days, #10 PKT Prednisone Tab (Prednisone) 10 Mg Tab 10 MG PO TID, TAB Simvastatin (Zocor) 20 Mg Tab 20 MG PO QPM, TAB Tamsulosin Hcl (Flomax) 0.4 Mg Cap 0.4 MG PO HS, CAP Discontinued Medications: Ceftriaxone Sodium (Rocephin) 1 Gm Inj 1 GM IV DAILY for 7 Days, #7 VIAL 0 Refills start 06/15/17 Vancomycin HCl in Sodium Chlor (VANCOMYCIN in NSS) 1 Inj Inj 500 MG IV UD, #3 DOSE 0 Refills give on dialysis days (06/17, 06/20, 06/22) Referrals At Discharge Follow up Referrals: Infectious Disease - Within 1-2 Weeks with Philip Philippe MD Discharge Exam Review of Systems: Constitutional: No fever, No chills, No sweats, No weight loss, No weakness , No fatigue, No problem reported Eyes: No worsening of vision, No eye pain, No redness, No discharge, No diplopia, No problem reported ENT: No hearing loss, No unusual epistaxis, No nasal symptoms, No sore throat, No tinnitus, No dental problems, No trouble swallowing, No problem reported Respiratory: No cough, No sputum, No wheezing, No shortness of breath, No dyspnea on exertion, No dyspnea at rest, No hemoptysis, No problem reported Cardiovascular: No chest pain, No orthopnea, No PND, No edema, No claudication, No palpitations, No problem reported Abdomen: No pain, No nausea, No vomiting, No diarrhea, No constipation, No GI bleeding, No problem reported Musculoskeletal: No joint pain, No muscle pain, No swelling, No calf pain, No problem reported Genitourinary - Male: No hematuria, No dysuria, No urinary frequency, No urinary urgency, No urinary hesitancy, No urinary retention, No urinary incontinence, No penile discharge, No lesions, No impotence, No problem reported Neurologic: No memory loss, No paralysis, No weakness, No numbness/tingling , No vertigo, No balance problems, No problem reported Psychiatric: No depression symptoms, No anhedonism, No anxiety, No insomnia , No substance abuse, No problem reported Endocrine: No fatigue, No excessive thirst, No excessive urination, No problem reported Hematologic / Lymphatic: No abnormal bleeding/bruising, No clotting problems , No swollen lymph nodes, No night sweats, No problem reported Integumentary: No rash, No itch, No new/changing skin lesions, No color change, No bleeding, No problem reported Physical Exam: General Appearance: WD/WN, no apparent distress Eyes: normal inspection, EOMI ENT: normal ENT inspection, hearing grossly normal Neck: supple Respiratory/Chest: chest non-tender, lungs clear, normal breath sounds, no respiratory distress, no accessory muscle use Cardiovascular: regular rate, rhythm, no edema, no gallop, no JVD, no murmur , normal peripheral pulses Abdomen / GI: non tender, soft, no organomegaly, no pulsatile mass, normal rectal exam, occult blood negative Extremities: normal inspection, no calf tenderness, normal capillary refill , no pedal edema, normal range of motion 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 Patient failed Rocephin/Vanco and presented to the hospital again and was admitted for further evaluation Started on Zosyn and daptomycin by admitting physician Switch to daptomycin plus ertapenem by infectious diseases, to continue 10 days course Patient was cleared for discharge on the above-mentioned antibiotics to be given at home. Patient will follow up with infectious diseases consult as an outpatient to ensure cure of her cellulitis Blood cultures were negative Patient was continued outpatient [email or web address] has all his IV medication arrange to be giving at home He had dialysis today. Cleared for discharge Total Time Spent: Greater than 30 minutes This includes examination of the patient, discharge planning, medication reconciliation, and communication with other providers. Discharge Instructions Please refer to the electronic Patient Visit Report (Discharge Instructions) for additional information.
== END 2017-06-24 17:00 | disposition home or self-care (01) ==
LOC: C.EDB 14:06 → C.4E 16:27 → EDBEDREQSVC 16:36 → ENRESERV 16:41
PROVIDERS: ADMIT Family Medicine; ATTEND Hospitalist
DX: L03.114 Cellulitis of left upper limb (principal); I12.0 Hypertensive chronic kidney disease with stage 5 chronic kidney disease or end stage renal disease; N18.6 End stage renal disease; E11.22 Type 2 diabetes mellitus with diabetic chronic kidney disease; D64.9 Anemia, unspecified; E78.5 Hyperlipidemia, unspecified; N40.0 Benign prostatic hyperplasia without lower urinary tract symptoms; Z99.2 Dependence on renal dialysis; Z79.4 Long term (current) use of insulin; Z79.899 Other long term (current) drug therapy; Z79.82 Long term (current) use of aspirin; Z85.528 Personal history of other malignant neoplasm of kidney; Z90.5 Acquired absence of kidney; Z91.19 Patient's noncompliance with other medical treatment and regimen

== ENCOUNTER 2017-07-05 17:24 | Inpatient (IN) | payer OTHER ==
[~2017-07-05] VITALS: Ht 177.8 cm; Wt 75.5 kg
[~2017-07-05 17:24] MED LIST changes: +CALC500C3 PO; -CEFT1INJ26 IV; +DAPT500I IV; -FRRS300 PO; -INSDGI SC; +INSDGIPEN SC; +INSU1INJ23 SC; +LCTX OR; +LSN40 OR; -LSX20 PO; +LSX40 PO; -METH10TA PO; +METO100T14 PO; +MTH10 PO; -NVLGIPEN SC; -TPRSR/100 PO; -VANC1INJ94 IV
[2017-07-05 18:13] VITALS: O2SAT 94
[2017-07-05 19:50] VITALS: BP 169/82; PULSE 89; TEMP 37.1; O2SAT 95
[2017-07-05] MEDS ORDERED: DAPTOmycin 500 MG VIAL IV SCH (21:45)
[2017-07-05] MEDS ORDERED: DAPTOMYCIN CONSULT ACTIVE PRN (22:00)
[2017-07-05] MEDS ORDERED: ERTAPENEM CONSULT ACTIVE PRN (22:00)
[2017-07-05 22:35] LABS: MEAN CORPUSCULAR HGB CONC 32.4 g/dl (32-36)
--- NOTE | 2017-07-05 22:35 | DIAGNOSTIC IMAGING REPORT ---
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 Mild soft tissue swelling is noted about the forearm, wrist and hand without opaque foreign body. No acute fracture, subluxation or erosive changes to suggest osteomyelitis. IMPRESSION: 1. No acute fracture or dislocation. 2. Mild diffuse soft tissue swelling without erosive changes to suggest osteomyelitis at this time. The above report was generated using voice recognition software. It may contain grammatical, syntax or spelling errors. Electronically signed by: Mike Oconnor M.D. 07/05/2017 10:34 PM Dictated Date/Time: 07/05/2017 10:31 PM
[2017-07-05 22:38] LABS: PTT PATIENT 33.2 SECONDS (21.0-31.0)
[2017-07-05 22:48] LABS: ALBUMIN 1.4 gm/dl (3.4-5.0); CALCIUM 7.6 mg/dl (8.5-10.1); CREATININE 3.27 mg/dl (0.60-1.40); POTASSIUM 3.5 mmol/L (3.5-5.1)
[2017-07-05 22:51] LABS: TOTAL PROTEIN 4.1 gm/dl (6.4-8.2)
[2017-07-05 22:59] LABS: HEMATOCRIT 31.8 % (42-52); HEMOGLOBIN 10.3 g/dL (14.0-18.0); MEAN CELL VOLUME 90.9 fL (80-100); MEAN CORPUSCULAR HEMOGLOBIN 29.4 pg (25-34); MEAN PLATELET VOLUME 9.8 fL (7.4-10.4); PLATELET COUNT 147 K/uL (130-400); RED CELL DISTRIBUTION WIDTH CV 23.3 % (11.5-14.5); RED CELL DISTRIBUTION WIDTH SD 77.2 fL (36.4-46.3); WHITE BLOOD COUNT 9.43 K/uL (4.8-10.8)
[2017-07-05 23:00] LABS: BASO % 0.1 %; BASO ABS # 0.01 K/uL (0-0.2); EOS % 2.1 %; IG# 0.02 K/uL (0.00-0.02); LYMPH % 5.6 %; LYMPH ABS # 0.53 K/uL (1.2-3.4); MONO % 3.4 %; MONO ABS # 0.32 K/uL (0.11-0.59); NEUT % 88.6 %; NEUT ABS # 8.35 K/uL (1.4-6.5)
[2017-07-05] MEDS: ERTAPENEM IV 500 MG in SODIUM CHLORIDE 0.9% 50ML 50 ML IV SCH (23:35)
[2017-07-05 23:55] VITALS: BP 151/73; PULSE 87; TEMP 36.8; O2SAT 97
[2017-07-06] VITALS (23 sets, daily range): BP systolic 95–174; BP diastolic 37–85; PULSE 66–94; TEMP 36.8–37.1; O2SAT 93–98; BMI 26.1
[2017-07-06] MEDS ORDERED: POLYETHYLENE (MIRALAX) 17 GM PACK PO PRN (02:30)
[2017-07-06] MEDS ORDERED: FENTANYL TOP SCH (02:30)
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
[2017-07-06] MEDS ORDERED: METHYLPREDNISOLONE IV 50 MG in SYRINGE 0 ML IV ONE (03:45)
[2017-07-06] MEDS ORDERED: GLUCOSE 10 TABS/TUBE PO PRN (04:15)
[2017-07-06] MEDS ORDERED: GLUCAGON FOR INJ 1 MG VIAL SQ PRN (04:15)
[2017-07-06] MEDS ORDERED: GLUCOSE 40% GEL 15 GM TUBE PO PRN (04:15)
[2017-07-06] MEDS: CABOZANTINIB S MALATE 60 MG PO SCH (05:02)
[2017-07-06 05:36] LABS: CREATININE 3.55 mg/dl (0.60-1.40)
[2017-07-06] MEDS: DEXTROSE 50% 50 ML SYR IV PRN (05:40)
[2017-07-06 06:53] LABS: MEAN CORPUSCULAR HGB CONC 32.2 g/dl (32-36)
[2017-07-06] MEDS: INSULIN ASPART 100 UNITS/ML 3 ML PEN SC SCH ×4 (07:00→21:14)
[2017-07-06 07:22] LABS: HEMATOCRIT 30.7 % (42-52); HEMOGLOBIN 9.9 g/dL (14.0-18.0); MEAN CELL VOLUME 91.1 fL (80-100); MEAN CORPUSCULAR HEMOGLOBIN 29.4 pg (25-34); RED CELL DISTRIBUTION WIDTH CV 23.2 % (11.5-14.5); WHITE BLOOD COUNT 10.09 K/uL (4.8-10.8)
[2017-07-06 07:23] LABS: CALCIUM 7.5 mg/dl (8.5-10.1); CREATININE 3.68 mg/dl (0.60-1.40); POTASSIUM 3.6 mmol/L (3.5-5.1)
[2017-07-06 07:24] LABS: PHOSPHORUS 3.4 mg/dl (2.5-4.9)
[2017-07-06 07:26] LABS: MEAN PLATELET VOLUME 10.1 fL (7.4-10.4); PLATELET COUNT 145 K/uL (130-400)
[2017-07-06 07:27] LABS: BASO % 0.1 %; BASO ABS # 0.01 K/uL (0-0.2); EOS % 2.1 %; EOS ABS # 0.21 K/uL (0-0.5); IG# 0.03 K/uL (0.00-0.02); LYMPH % 4.1 %; LYMPH ABS # 0.41 K/uL (1.2-3.4); MONO % 3.4 %; MONO ABS # 0.34 K/uL (0.11-0.59); NEUT ABS # 9.09 K/uL (1.4-6.5)
[2017-07-06] MEDS: LACTOBACILLUS ACIDOPHILUS (FLORANEX) TAB PO SCH ×3 (07:49→20:56)
[2017-07-06] MEDS: LISINOPRIL 40 MG TAB PO SCH (07:49)
[2017-07-06] MEDS: AMLODIPINE BESYLATE 5 MG TAB PO SCH (07:49)
[2017-07-06] MEDS: FUROSEMIDE 40 MG TAB PO SCH (07:49)
[2017-07-06] MEDS: ASPIRIN 81 MG ECTAB PO SCH (07:49)
[2017-07-06] MEDS: METOPROLOL TARTRATE 100 MG TAB PO SCH ×2 (07:50→20:54)
[2017-07-06] MEDS: CALCIUM CARBONATE 500 MG CHEWABLE PO SCH ×3 (07:50→20:52)
[2017-07-06] MEDS: CALCITRIOL 0.25 MCG CAP PO SCH (07:51)
[2017-07-06] MEDS: CHECK FENTANYL PATCH PLACEMENT SCH ×2 (07:51→16:00)
[2017-07-06] MEDS: METHADONE HCL 10 MG TAB PO SCH ×3 (08:34→21:02)
[2017-07-06] MEDS: OXYCODONE HCL IR 5 MG TAB (IMMEDIATE RELEASE) PO SCH ×3 (08:34→21:02)
[2017-07-06] MEDS ORDERED: HEPARIN SOD (PORCINE) 1000 UNIT/ML 10 ML VIAL IV SCH (09:45)
[2017-07-06] MEDS ORDERED: EPOETIN ALFA 10,000 UNITS/ML VIAL IV. ONE (09:45)
[2017-07-06] MEDS ORDERED: PARICALCITOL 5 MCG/ML VIAL (ZEMPLAR) IV. SCH (09:45)
[2017-07-06] MEDS ORDERED: EPOETIN ALFA INJ 8,000 UNITS in SYRINGE 0 ML IV. SCH (09:45)
--- NOTE | 2017-07-06 10:22 | Medical Consult ---
Consultation Date of Consultation: Jul 06, 2017. Attending Physician: Maddy Hood M.D. Reason for Consultation: Cellulitis History of Present Illness 61-year-old male well known to me from previous infectious disease consultation , with history of renal cell carcinoma, diabetes mellitus, chronic kidney disease, who was hospitalized after suffering an injury to his left hand from a drill bit and subsequently developing evidence of cellulitis. He was treated with IV antibiotics and discharged home on a combination of daptomycin and ertapenem. However over the last several days, patient has noted increasing redness and swelling of the hand and forearm. Denies any associated fever or chills. Was to be seen as an outpatient follow-up went to the emergency room and was admitted for further management. Complaining of significant pain in his hand, rated 8/10 in intensity currently. 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 (9) Colitis (10) Diabetes type 2, controlled (11) ESRD (end stage renal disease) on dialysis (12) H/O unilateral nephrectomy (13) Hypertension (14) Kidney disease, chronic, stage IV (GFR 15-29 ml/min) (15) Pneumonia (16) Pneumonitis (17) Pyelonephritis (18) Renal cell carcinoma (19) Renal mass, left (20) Shortness of breath Family History Cervical cancer Diabetes mellitus Heart disease Hypertension Myocardial infarction Pancreatic cancer Prostate cancer Social History Smoking Status: Never Smoker Smokeless Tobacco Use: No Alcohol Use: none Drug Use: none Marital Status: single Housing Status: lives alone Occupation Status: disabled Allergies Coded Allergies: Iodinated Diagnostic Agents (Verified Allergy, Unknown, oil based, severe headaches, 06/20/17) EVENT OCCURED IN 1971, PT STATES HE HAS HAD 3 DIFFERENT WATER BASED IVP DYES WITH NO ISSUE Current Inpatient Medications Current Inpatient Medications Medications (Trade) Dose Ordered Sig/Edward Route Start Time Stop Time Status Last Admin Dose Admin Acetaminophen (Tylenol Tab) 650 mg Q4H PRN PO 07/05/17 21:45 08/04/17 21:44 Ertapenem 500 mg/ Sodium Chloride 55 ml @ 120 mls/hr Q24H IV 07/05/17 23:00 08/16/17 22:59 07/05/17 23:35 120 MLS/HR Ertapenem (Consult) 1 ea UD PRN N/A 07/05/17 22:00 08/04/17 21:59 Daptomycin (Consult) 1 ea UD PRN N/A 07/05/17 22:00 08/04/17 21:59 Daptomycin 350 mg/ Syringe 7 ml @ 3.5 mls/min Q48H IV 07/06/17 20:00 08/17/17 19:59 Amlodipine Besylate (Norvasc Tab) 10 mg QAM PO 07/06/17 09:00 08/05/17 08:59 07/06/17 07:49 10 MG Aspirin (Ecotrin Tab) 81 mg QAM PO 07/06/17 09:00 08/05/17 08:59 07/06/17 07:49 81 MG Calcitriol (Rocaltrol Cap) 0.25 mcg Q2D PO 07/06/17 09:00 08/05/17 08:59 07/06/17 07:51 0.25 MCG Calcium Carbonate (Tums Chew Tab) 500 mg TID PO 07/06/17 09:00 08/05/17 08:59 07/06/17 07:50 500 MG Furosemide (Lasix Tab) 40 mg QAM PO 07/06/17 09:00 08/05/17 08:59 07/06/17 07:49 40 MG Hydralazine HCl (Apresoline Tab) 100 mg TID PO 07/06/17 09:00 08/05/17 08:59 07/06/17 07:51 100 MG Insulin Glargine (Lantus Solostar Pen) 14 units HS SC 07/06/17 21:00 08/05/17 20:59 Lactobacillus Acidophilus (Floranex Tab) 2 tab TID PO 07/06/17 09:00 08/05/17 08:59 07/06/17 07:49 2 TAB Lisinopril (Zestril Tab) 40 mg DAILY PO 07/06/17 09:00 08/05/17 08:59 07/06/17 07:49 40 MG Methadone HCl (Dolophine Tab) 10 mg TID PO 07/06/17 09:00 07/20/17 08:59 07/06/17 08:34 10 MG Metoprolol Tartrate (Lopressor Tab) 150 mg BID PO 07/06/17 09:00 08/05/17 08:59 07/06/17 07:50 150 MG Polyethylene (Miralax Powder Packet) 17 gm DAILY PRN PO 07/06/17 02:30 08/05/17 02:29 Prednisone (PredniSONE TAB) 10 mg BID PO 07/06/17 09:00 08/05/17 08:59 07/06/17 07:50 10 MG Simvastatin (Zocor Tab) 20 mg QPM PO 07/06/17 21:00 08/05/17 20:59 Tamsulosin HCl (Flomax Cap) 0.4 mg HS PO 07/06/17 21:00 08/05/17 20:59 Cabozantinib (Cabometyx) 60 mg DAILY@0500 PO 07/06/17 05:00 08/05/17 04:59 07/06/17 05:02 60 MG Oxycodone HCl (Roxicodone Immediate Rel Tab) 10 mg TID PO 07/06/17 09:00 08/05/17 08:59 07/06/17 08:34 10 MG Insulin Aspart (novoLOG ASPART) SLIDING SCALE G... ACHS SC 07/06/17 07:00 08/05/17 06:59 Fentanyl (Duragesic Patch) 25 mcg Q3D TD 07/07/17 09:00 07/21/17 08:59 Miscellaneous (Fentanyl Patch Remove & Waste) 1 ea Q3D N/A 07/07/17 08:59 08/06/17 08:58 Miscellaneous Information (Check Fentanyl Patch Placement) 1 ea QS N/A 07/06/17 08:00 08/05/17 07:59 07/06/17 07:51 1 EA Glucose (Glucose 40% Gel) 15-30 GRAMS 15 GRAMS... UD PRN PO 07/06/17 04:15 08/05/17 04:14 Glucose (Glucose Chew Tab) 4-8 Tablets 4 Tabl... UD PRN PO 07/06/17 04:15 08/05/17 04:14 Dextrose (Dextrose 50% 50ML Syringe) 25-50ML OF 50% DW IV FOR... UD PRN IV 07/06/17 04:15 08/05/17 04:14 07/06/17 05:40 25 ML Glucagon (Glucagon Inj) 1 mg UD PRN SQ 07/06/17 04:15 08/05/17 04:14 Heparin Sodium (Porcine) (Heparin Iv Bolus) 2,000 unit 0945 IV 07/06/17 09:45 07/06/17 16:00 Heparin Sodium (Porcine) (Heparin Iv Bolus) 1,000 unit Q1H IV 07/06/17 09:45 07/06/17 16:00 Paricalcitol (Zemplar Inj) 3 mcg 0945 IV. 07/06/17 09:45 07/06/17 16:00 Epoetin Mohsen 8000 units/Syringe 0.4 ml @ 1 mls/min TODAY@0945 IV. 07/06/17 09:45 07/06/17 12:00 Review of Systems Constitutional: + chills, No fever Eyes: No problem reported ENT: No problem reported Respiratory: No problem reported Cardiovascular: No problem reported Abdomen: + GI bleeding Musculoskeletal: + joint pain, + swelling Genitourinary - Male: No problem reported Neurologic: No problem reported Psychiatric: No problem reported Endocrine: No problem reported Hematologic / Lymphatic: No problem reported Integumentary: + new/changing skin lesions, + color change Allergic / Immunologic: No problem reported Physical Exam Date Time Temp Pulse Resp B/P (MAP) Pulse Ox O2 Delivery O2 Flow Rate FiO2 07/06/17 08:00 Nasal Cannula 2.0 07/06/17 07:56 37.0 89 25 166/82 (110) 93 Nasal Cannula 2.0 07/06/17 04:00 Nasal Cannula 2.0 07/06/17 03:00 36.8 94 23 174/85 (114) 94 Nasal Cannula 2.0 07/05/17 23:59 Nasal Cannula 2.0 07/05/17 23:55 36.8 87 18 151/73 (99) 97 Nasal Cannula 2.0 07/05/17 19:50 37.1 89 20 169/82 (111) 95 Nasal Cannula 3.0 07/05/17 18:13 94 Nasal Cannula 2.0 General Appearance: WD/WN, no apparent distress Head: normocephalic, atraumatic Eyes: normal inspection, EOMI, sclerae normal ENT: normal ENT inspection, pharynx normal Neck: supple, no adenopathy, thyroid normal, trachea midline Respiratory/Chest: chest non-tender, lungs clear, normal breath sounds, no respiratory distress Cardiovascular: regular rate, rhythm, no gallop, no murmur Abdomen/GI: normal bowel sounds, non tender, soft, no organomegaly Back: normal inspection, no CVA tenderness Extremities/Musculoskelatal: no calf tenderness, normal capillary refill, + pertinent finding (Left hand and arm swelling and erythema) Neurologic/Psych: alert, oriented x 3 Skin: normal color, no rash, + pertinent finding (Erythema involving left hand and forearm, small amount of serosanguineous drainage from wound) Lymphatic: no adenopathy Laboratory Results Date/Time Source Procedure Growth Status 07/05/17 22:21 Blood Blood Culture Pending Received 07/05/17 22:04 Blood Blood Culture Pending Received 07/05/17 21:00 Nasal MRSA DNA Surveillance Screen - Final Specimen Negative for MRSA by DNA Probe Complete Last 24 Hours Test 07/05/17 19:57 07/05/17 22:04 07/06/17 03:10 07/06/17 04:59 Bedside Glucose 90 mg/dl White Blood Count 9.43 K/uL Red Blood Count 3.50 M/uL Hemoglobin 10.3 g/dL Hematocrit 31.8 % Mean Corpuscular Volume 90.9 fL Mean Corpuscular Hemoglobin 29.4 pg Mean Corpuscular Hemoglobin Concent 32.4 g/dl Platelet Count 147 K/uL Mean Platelet Volume 9.8 fL Neutrophils (%) (Auto) 88.6 % Lymphocytes (%) (Auto) 5.6 % Monocytes (%) (Auto) 3.4 % Eosinophils (%) (Auto) 2.1 % Basophils (%) (Auto) 0.1 % Neutrophils # (Auto) 8.35 K/uL Lymphocytes # (Auto) 0.53 K/uL Monocytes # (Auto) 0.32 K/uL Eosinophils # (Auto) 0.20 K/uL Basophils # (Auto) 0.01 K/uL RDW Standard Deviation 77.2 fL RDW Coefficient of Variation 23.3 % Immature Granulocyte % (Auto) 0.2 % Immature Granulocyte # (Auto) 0.02 K/uL Platelet Estimate NORMAL Anisocytosis PRESENT Spherocytes 1+ Ovalocytes 1+ Acanthocytes 1+ Schistocytes 2+ Prothrombin Time 10.4 SECONDS Prothromb Time International Ratio 1.0 Activated Partial Thromboplast Time 33.2 SECONDS Partial Thromboplastin Ratio 1.3 Sodium Level 136 mmol/L Potassium Level 3.5 mmol/L Chloride Level 97 mmol/L Carbon Dioxide Level 32 mmol/L Anion Gap 7.0 mmol/L Blood Urea Nitrogen 39 mg/dl Creatinine 3.27 mg/dl 3.55 mg/dl Est Creatinine Clear Calc Drug Dose 23.9 ml/min 22.0 ml/min Estimated GFR () 22.1 20.0 Estimated GFR (Non- 19.0 17.2 BUN/Creatinine Ratio 12.0 Random Glucose 130 mg/dl Calcium Level 7.6 mg/dl Total Bilirubin 0.3 mg/dl Aspartate Amino Transf (AST/SGOT) 50 U/L Alanine Aminotransferase (ALT/SGPT) 33 U/L Alkaline Phosphatase 81 U/L Total Protein 4.1 gm/dl Albumin 1.4 gm/dl Globulin 2.7 gm/dl Albumin/Globulin Ratio 0.5 Urine Color YELLOW Urine Appearance CLEAR Urine pH 5.5 Urine Specific Roundup 1.022 Urine Protein 3+ Urine Glucose (UA) TRACE Urine Ketones NEG Urine Occult Blood NEG Urine Nitrite NEG Urine Bilirubin NEG Urine Urobilinogen NEG Urine Leukocyte Esterase NEG Urine WBC (Auto) 1-5 /hpf Urine RBC (Auto) 5-10 /hpf Urine Hyaline Casts (Auto) 5-10 /lpf Urine Epithelial Cells (Auto) 20-30 /lpf Urine Bacteria (Auto) NEG Test 07/06/17 05:32 07/06/17 05:57 07/06/17 06:38 07/06/17 07:01 Bedside Glucose 61 mg/dl 118 mg/dl 92 mg/dl White Blood Count 10.09 K/uL Red Blood Count 3.37 M/uL Hemoglobin 9.9 g/dL Hematocrit 30.7 % Mean Corpuscular Volume 91.1 fL Mean Corpuscular Hemoglobin 29.4 pg Mean Corpuscular Hemoglobin Concent 32.2 g/dl Platelet Count 145 K/uL Mean Platelet Volume 10.1 fL Neutrophils (%) (Auto) 90.0 % Lymphocytes (%) (Auto) 4.1 % Monocytes (%) (Auto) 3.4 % Eosinophils (%) (Auto) 2.1 % Basophils (%) (Auto) 0.1 % Neutrophils # (Auto) 9.09 K/uL Lymphocytes # (Auto) 0.41 K/uL Monocytes # (Auto) 0.34 K/uL Eosinophils # (Auto) 0.21 K/uL Basophils # (Auto) 0.01 K/uL RDW Standard Deviation 78.0 fL RDW Coefficient of Variation 23.2 % Immature Granulocyte % (Auto) 0.3 % Immature Granulocyte # (Auto) 0.03 K/uL Platelet Estimate DECREASED Anisocytosis PRESENT Spherocytes 1+ Sodium Level 136 mmol/L Potassium Level 3.6 mmol/L Chloride Level 98 mmol/L Carbon Dioxide Level 32 mmol/L Anion Gap 6.0 mmol/L Blood Urea Nitrogen 41 mg/dl Creatinine 3.68 mg/dl Est Creatinine Clear Calc Drug Dose 21.2 ml/min Estimated GFR () 19.1 Estimated GFR (Non- 16.5 BUN/Creatinine Ratio 11.2 Random Glucose 92 mg/dl Calcium Level 7.5 mg/dl Phosphorus Level 3.4 mg/dl Magnesium Level 2.2 mg/dl Patient Name: CHANO ANDERSON Unit Number: [id number] Dictated: 07/05/172230 Transcribed: 07/05/172230 [facility] Printed Date/Time: [~ rep prt dt]/[~ rep prt tm] [~ rep ct labl] - [~ rep ct ivnm] [facility] Radiology Department [place], [place] [id number] Dictated: 07/05/172230 Transcribed: 07/05/172230 [facility] Printed Date/Time: [~ rep prt dt]/[~ rep prt tm] [~ rep ct labl] - [~ rep ct ivnm] 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 Mild soft tissue swelling is noted about the forearm, wrist and hand without opaque foreign body. No acute fracture, subluxation or erosive changes to suggest osteomyelitis. IMPRESSION: 1. No acute fracture or dislocation. 2. Mild diffuse soft tissue swelling without erosive changes to suggest osteomyelitis at this time. The above report was generated using voice recognition software. It may contain grammatical, syntax or spelling errors. Electronically signed by: Mike Oconnor M.D. 07/05/2017 10:34 PM Dictated Date/Time: 07/05/2017 10:31 PM The status of this report is Signed. Draft = Not yet reviewed or approved by Radiologist. Signed = Reviewed and approved by Radiologist. <AttendingPhy>Falguni Lin DO</AttendingPhy> <FamilyPhy>Salvador Muller M.D. </FamilyPhy> <PrimaryPhy>Salvador Muller M.D.</PrimaryPhy> <UnitNumber>[id number]</ UnitNumber> <VisitNumber>[id number]</VisitNumber> <PatientName>CHANO ANDERSON</ PatientName> <DateOfBirth>1955</DateOfBirth> <Location>[facility]</Location> < ServiceDate></ServiceDate> <MNE>ESINDI</MNE> <OrderingPhy>Hanny Ibrahim MD</ OrderingPhy> <OrderingPhyMNE>f rep ord dr caldera</OrderingPhyMNE> <DictatingPhyMNE> f rep dict dr caldera</DictatingPhyMNE> <CCListMNE>f rep ct verenice</CCListMNE> < AdmittingPhyMNE>f pt admit dr caldera</AdmittingPhyMNE> <AttendingPhyMNE>f pt attend dr caldera</AttendingPhyMNE> <ConsultingPhyMNE>f pt consult dr caldera</ConsultingPhyMNE> <FamilyPhyMNE>f pt fam dr caldera</FamilyPhyMNE> <OtherPhyMNE>f pt other dr caldera</OtherPhyMNE> < PrimaryPhyMNE>f pt prim care dr caldera</PrimaryPhyMNE> <ReferringPhyMNE>f pt referring dr caldera</ReferringPhyMNE> Assessment & Plan 61-year-old male with previous cellulitis of the left hand and forearm after injury from a drill bit, with improvement initially with IV antibiotics, but now with recurrent redness and swelling with increasing pain. Would recommend continuation of broad-spectrum antibiotics, and would obtain further imaging either CT or MRI of the hand and arm to ensure no deeper collection. I wonder about possibility of component of reflex sympathetic dystrophy, and would consider Neurology consult/nerve conduction studies. Will discuss with all involved. Will follow.
--- NOTE | 2017-07-06 10:35 | Nephrology Consultation ---
Nephrology Consultation Date & Providers Date of Consultation: Jul 06, 2017. Primary Care Provider: Salvador Muller M.D. Referring Provider: Reason for Consultation Provide inpatient HD and assist w/ medical management of this patient w/ ESRD History of Present Illness Mr. Christy is a 61 year old white male who is seen at the request of Dr. Singletary to provide inpatient HD and assist w/ his medical management. Medical records in the hospital EMR were reviewed today and are summarized as follows: Mr. Christy has renal cell carcinoma. He underwent a L radical nephrectomy 10/06. The tumor was multifocal with microscopic spread beyond the renal capsule and involvement of the periaortic lymphnodes. He was treated w/ Sutent but developed nephrotic syndrome. He was then treated w/ Opdivo but developed immune mediated colitis. Mr. Christy remains on chemotherapy as directed by [facility]. In 03/09 he had a L upper arm AVF created in anticipation of needing HD. In 06/09 Mr. Christy progressed to ESRD. He is now on [facility]HD at [facility] [place], [place] (TTS 4hr 2K 2Ca F180 NR EDW 82 kg). Mr. Christy was admitted 06/10 - 06/14 with cellulitis of his L wrist following a puncture wound by a drill bit. Blood cultures were negative. He received 10 days IV Vancomycin & Ceftriaxone followed by 10 days IV Daptomycin & Ertapenem. Yesterday he noted that his wrist had become more swollen and had developed serosanguineous drainage. He initially presented to [facility] but was subsequently transferred to [facility] for ID consultation, IV antibiotic therapy and inpatient HD Past Medical/Surgical History Medical: # Renal cell carcinoma (multifocal clear cell w/ involvement of periaortic lymph nodes) s/p left radical nephrectomy 10/06 # HTN # Anemia # AODM # Hyperlipidemia # Basal cell skin CA # Diverticulosis # Cellulitis L wrist following puncture wound 06/09 # Depression / anxiety Surgical: # L nephrectomy 10/06 # Partial colectomy due to diverticulitis 2009 # L arm AVF 03/09 - Dr. Darden # R subclavian a-port Allergies Coded Allergies: Iodinated Diagnostic Agents (Verified Allergy, Unknown, oil based, severe headaches, 06/20/17) EVENT OCCURED IN 1971, PT STATES HE HAS HAD 3 DIFFERENT WATER BASED IVP DYES WITH NO ISSUE Inpatient Medications Current Inpatient Medications Medications (Trade) Dose Ordered Sig/Edward Route Start Time Stop Time Status Last Admin Dose Admin Acetaminophen (Tylenol Tab) 650 mg Q4H PRN PO 07/05/17 21:45 08/04/17 21:44 Ertapenem 500 mg/ Sodium Chloride 55 ml @ 120 mls/hr Q24H IV 07/05/17 23:00 08/16/17 22:59 07/05/17 23:35 120 MLS/HR Ertapenem (Consult) 1 ea UD PRN N/A 07/05/17 22:00 08/04/17 21:59 Daptomycin (Consult) 1 ea UD PRN N/A 07/05/17 22:00 08/04/17 21:59 Daptomycin 350 mg/ Syringe 7 ml @ 3.5 mls/min Q48H IV 07/06/17 20:00 08/17/17 19:59 Amlodipine Besylate (Norvasc Tab) 10 mg QAM PO 07/06/17 09:00 08/05/17 08:59 07/06/17 07:49 10 MG Aspirin (Ecotrin Tab) 81 mg QAM PO 07/06/17 09:00 08/05/17 08:59 07/06/17 07:49 81 MG Calcitriol (Rocaltrol Cap) 0.25 mcg Q2D PO 07/06/17 09:00 08/05/17 08:59 07/06/17 07:51 0.25 MCG Calcium Carbonate (Tums Chew Tab) 500 mg TID PO 07/06/17 09:00 08/05/17 08:59 07/06/17 07:50 500 MG Furosemide (Lasix Tab) 40 mg QAM PO 07/06/17 09:00 08/05/17 08:59 07/06/17 07:49 40 MG Hydralazine HCl (Apresoline Tab) 100 mg TID PO 07/06/17 09:00 08/05/17 08:59 07/06/17 07:51 100 MG Insulin Glargine (Lantus Solostar Pen) 14 units HS SC 07/06/17 21:00 08/05/17 20:59 Lactobacillus Acidophilus (Floranex Tab) 2 tab TID PO 07/06/17 09:00 08/05/17 08:59 07/06/17 07:49 2 TAB Lisinopril (Zestril Tab) 40 mg DAILY PO 07/06/17 09:00 08/05/17 08:59 07/06/17 07:49 40 MG Methadone HCl (Dolophine Tab) 10 mg TID PO 07/06/17 09:00 07/20/17 08:59 07/06/17 08:34 10 MG Metoprolol Tartrate (Lopressor Tab) 150 mg BID PO 07/06/17 09:00 08/05/17 08:59 07/06/17 07:50 150 MG Polyethylene (Miralax Powder Packet) 17 gm DAILY PRN PO 07/06/17 02:30 08/05/17 02:29 Prednisone (PredniSONE TAB) 10 mg BID PO 07/06/17 09:00 08/05/17 08:59 07/06/17 07:50 10 MG Simvastatin (Zocor Tab) 20 mg QPM PO 07/06/17 21:00 08/05/17 20:59 Tamsulosin HCl (Flomax Cap) 0.4 mg HS PO 07/06/17 21:00 08/05/17 20:59 Cabozantinib (Cabometyx) 60 mg DAILY@0500 PO 07/06/17 05:00 08/05/17 04:59 07/06/17 05:02 60 MG Oxycodone HCl (Roxicodone Immediate Rel Tab) 10 mg TID PO 07/06/17 09:00 08/05/17 08:59 07/06/17 08:34 10 MG Insulin Aspart (novoLOG ASPART) SLIDING SCALE G... ACHS SC 07/06/17 07:00 08/05/17 06:59 Fentanyl (Duragesic Patch) 25 mcg Q3D TD 07/07/17 09:00 07/21/17 08:59 Miscellaneous (Fentanyl Patch Remove & Waste) 1 ea Q3D N/A 07/07/17 08:59 08/06/17 08:58 Miscellaneous Information (Check Fentanyl Patch Placement) 1 ea QS N/A 07/06/17 08:00 08/05/17 07:59 07/06/17 07:51 1 EA Glucose (Glucose 40% Gel) 15-30 GRAMS 15 GRAMS... UD PRN PO 07/06/17 04:15 08/05/17 04:14 Glucose (Glucose Chew Tab) 4-8 Tablets 4 Tabl... UD PRN PO 07/06/17 04:15 08/05/17 04:14 Dextrose (Dextrose 50% 50ML Syringe) 25-50ML OF 50% DW IV FOR... UD PRN IV 07/06/17 04:15 08/05/17 04:14 07/06/17 05:40 25 ML Glucagon (Glucagon Inj) 1 mg UD PRN SQ 07/06/17 04:15 08/05/17 04:14 Heparin Sodium (Porcine) (Heparin Iv Bolus) 2,000 unit 0945 IV 07/06/17 09:45 07/06/17 16:00 Heparin Sodium (Porcine) (Heparin Iv Bolus) 1,000 unit Q1H IV 07/06/17 09:45 07/06/17 16:00 Paricalcitol (Zemplar Inj) 3 mcg 0945 IV. 07/06/17 09:45 07/06/17 16:00 Epoetin Mohsen 8000 units/Syringe 0.4 ml @ 1 mls/min TODAY@0945 IV. 07/06/17 09:45 07/06/17 12:00 Family History Cervical cancer Diabetes mellitus Heart disease Hypertension Myocardial infarction Pancreatic cancer Prostate cancer Negative for CKD/ESRD Social History Smoking Status: Never Smoker Smokeless Tobacco Use: No Alcohol Use: none Drug Use: none Marital Status: single Housing Status: lives alone Occupation: disabled Single, retired. Formerly worked for [employer]. Never a smoker. Review of Systems Constitutional: No fever Respiratory: No cough Cardiovascular: No chest pain Abdomen: No pain, No nausea, No vomiting A complete review of systems was performed. Pertinent positives are noted above. All other systems are negative. Physical Exam Date Time Temp Pulse Resp B/P (MAP) Pulse Ox O2 Delivery O2 Flow Rate FiO2 07/06/17 08:00 Nasal Cannula 2.0 07/06/17 07:56 37.0 89 25 166/82 (110) 93 Nasal Cannula 2.0 07/06/17 04:00 Nasal Cannula 2.0 07/06/17 03:00 36.8 94 23 174/85 (114) 94 Nasal Cannula 2.0 07/05/17 23:59 Nasal Cannula 2.0 07/05/17 23:55 36.8 87 18 151/73 (99) 97 Nasal Cannula 2.0 07/05/17 19:50 37.1 89 20 169/82 (111) 95 Nasal Cannula 3.0 07/05/17 18:13 94 Nasal Cannula 2.0 General Appearance: no apparent distress Head: normocephalic, atraumatic Eyes: PERRL, EOMI Neck: no adenopathy Respiratory/Chest: lungs clear, no respiratory distress Cardiovascular: regular rate, rhythm, no murmur Abdomen/GI: normal bowel sounds, non tender, soft Extremities/Musculoskelatal: no calf tenderness, no pedal edema, + pertinent finding (L wrist swollen & erythematous. L upper arm AVF + bruit) Neurologic/Psych: alert, oriented x 3 Laboratory Results Last 24 Hours Test 07/05/17 19:57 07/05/17 22:04 07/06/17 03:10 07/06/17 04:59 Bedside Glucose 90 mg/dl White Blood Count 9.43 K/uL Red Blood Count 3.50 M/uL Hemoglobin 10.3 g/dL Hematocrit 31.8 % Mean Corpuscular Volume 90.9 fL Mean Corpuscular Hemoglobin 29.4 pg Mean Corpuscular Hemoglobin Concent 32.4 g/dl Platelet Count 147 K/uL Mean Platelet Volume 9.8 fL Neutrophils (%) (Auto) 88.6 % Lymphocytes (%) (Auto) 5.6 % Monocytes (%) (Auto) 3.4 % Eosinophils (%) (Auto) 2.1 % Basophils (%) (Auto) 0.1 % Neutrophils # (Auto) 8.35 K/uL Lymphocytes # (Auto) 0.53 K/uL Monocytes # (Auto) 0.32 K/uL Eosinophils # (Auto) 0.20 K/uL Basophils # (Auto) 0.01 K/uL RDW Standard Deviation 77.2 fL RDW Coefficient of Variation 23.3 % Immature Granulocyte % (Auto) 0.2 % Immature Granulocyte # (Auto) 0.02 K/uL Platelet Estimate NORMAL Anisocytosis PRESENT Spherocytes 1+ Ovalocytes 1+ Acanthocytes 1+ Schistocytes 2+ Prothrombin Time 10.4 SECONDS Prothromb Time International Ratio 1.0 Activated Partial Thromboplast Time 33.2 SECONDS Partial Thromboplastin Ratio 1.3 Sodium Level 136 mmol/L Potassium Level 3.5 mmol/L Chloride Level 97 mmol/L Carbon Dioxide Level 32 mmol/L Anion Gap 7.0 mmol/L Blood Urea Nitrogen 39 mg/dl Creatinine 3.27 mg/dl 3.55 mg/dl Est Creatinine Clear Calc Drug Dose 23.9 ml/min 22.0 ml/min Estimated GFR () 22.1 20.0 Estimated GFR (Non- 19.0 17.2 BUN/Creatinine Ratio 12.0 Random Glucose 130 mg/dl Calcium Level 7.6 mg/dl Total Bilirubin 0.3 mg/dl Aspartate Amino Transf (AST/SGOT) 50 U/L Alanine Aminotransferase (ALT/SGPT) 33 U/L Alkaline Phosphatase 81 U/L Total Protein 4.1 gm/dl Albumin 1.4 gm/dl Globulin 2.7 gm/dl Albumin/Globulin Ratio 0.5 Urine Color YELLOW Urine Appearance CLEAR Urine pH 5.5 Urine Specific [place] 1.022 Urine Protein 3+ Urine Glucose (UA) TRACE Urine Ketones NEG Urine Occult Blood NEG Urine Nitrite NEG Urine Bilirubin NEG Urine Urobilinogen NEG Urine Leukocyte Esterase NEG Urine WBC (Auto) 1-5 /hpf Urine RBC (Auto) 5-10 /hpf Urine Hyaline Casts (Auto) 5-10 /lpf Urine Epithelial Cells (Auto) 20-30 /lpf Urine Bacteria (Auto) NEG Test 07/06/17 05:32 07/06/17 05:57 07/06/17 06:38 07/06/17 07:01 Bedside Glucose 61 mg/dl 118 mg/dl 92 mg/dl White Blood Count 10.09 K/uL Red Blood Count 3.37 M/uL Hemoglobin 9.9 g/dL Hematocrit 30.7 % Mean Corpuscular Volume 91.1 fL Mean Corpuscular Hemoglobin 29.4 pg Mean Corpuscular Hemoglobin Concent 32.2 g/dl Platelet Count 145 K/uL Mean Platelet Volume 10.1 fL Neutrophils (%) (Auto) 90.0 % Lymphocytes (%) (Auto) 4.1 % Monocytes (%) (Auto) 3.4 % Eosinophils (%) (Auto) 2.1 % Basophils (%) (Auto) 0.1 % Neutrophils # (Auto) 9.09 K/uL Lymphocytes # (Auto) 0.41 K/uL Monocytes # (Auto) 0.34 K/uL Eosinophils # (Auto) 0.21 K/uL Basophils # (Auto) 0.01 K/uL RDW Standard Deviation 78.0 fL RDW Coefficient of Variation 23.2 % Immature Granulocyte % (Auto) 0.3 % Immature Granulocyte # (Auto) 0.03 K/uL Platelet Estimate DECREASED Anisocytosis PRESENT Spherocytes 1+ Sodium Level 136 mmol/L Potassium Level 3.6 mmol/L Chloride Level 98 mmol/L Carbon Dioxide Level 32 mmol/L Anion Gap 6.0 mmol/L Blood Urea Nitrogen 41 mg/dl Creatinine 3.68 mg/dl Est Creatinine Clear Calc Drug Dose 21.2 ml/min Estimated GFR () 19.1 Estimated GFR (Non- 16.5 BUN/Creatinine Ratio 11.2 Random Glucose 92 mg/dl Calcium Level 7.5 mg/dl Phosphorus Level 3.4 mg/dl Magnesium Level 2.2 mg/dl Impression (1) Cellulitis of left hand (2) ESRD (end stage renal disease) on dialysis (3) Renal cell carcinoma (4) Anemia (5) Diabetes type 2, controlled Recommendations END STAGE RENAL DISEASE: -- [facility] in [place], [place] contacted this am and chronic HD orders obtained -- Will provide HD today according to outpatient orders. HD RN notified ANEMIA: -- Will provide IDALIA w/ HD HYPERTENSION: -- Will attempt 2 L UF w/ HD today -- Patient is on Lisinopril, Hydralazine, Amlodipine and Furosemide CKD-BMD: -- Continue oral Calcitriol therapy -- Continue CaCO3 500 mg po w/ meals ID: -- Await ID consultation and culture results
[2017-07-06] MEDS: HEPARIN SOD (PORCINE) 1000 UNIT/ML 10 ML VIAL IV SCH ×6 (11:15→14:23)
--- NOTE | 2017-07-06 11:57 | Dialysis Progress Note ---
Hemodialysis Note Date of Service Jul 06, 2017. Chief Complaint Provide inpatient HD and assist w/ medical management of this patient w/ ESRD Review of Systems A complete review of systems was performed. Pertinent positives are noted above. All other systems are negative. Vital Signs Last 8 Hrs Date Time Temp Pulse Resp B/P (MAP) Pulse Ox O2 Delivery O2 Flow Rate FiO2 07/06/17 08:00 Nasal Cannula 2.0 07/06/17 07:56 37.0 89 25 166/82 (110) 93 Nasal Cannula 2.0 07/06/17 04:00 Nasal Cannula 2.0 Last Recorded Weight Weight (Kilograms): 80.300 Family History Negative for CKD/ESRD Social History Smokeless Tobacco Use: No Alcohol Use: none Drug Use: none Marital Status: single Housing Status: lives alone Occupation: disabled Single, retired. Formerly worked for [employer]. Never a smoker. Laboratory Results Past 24 Hours 07/05/17 22:04 Red Blood Count 3.50, Mean Corpuscular Volume 90.9, Mean Corpuscular Hemoglobin 29.4, Mean Corpuscular Hemoglobin Concent 32.4, Mean Platelet Volume 9.8, Neutrophils (%) (Auto) 88.6, Lymphocytes (%) (Auto) 5.6, Monocytes (%) (Auto) 3.4, Eosinophils (%) (Auto) 2.1, Basophils (%) (Auto) 0.1, Neutrophils # (Auto) 8.35, Lymphocytes # (Auto) 0.53, Monocytes # (Auto) 0.32, Eosinophils # (Auto) 0.20, Basophils # (Auto) 0.01 07/06/17 06:38 Red Blood Count 3.37, Mean Corpuscular Volume 91.1, Mean Corpuscular Hemoglobin 29.4, Mean Corpuscular Hemoglobin Concent 32.2, Mean Platelet Volume 10.1, Neutrophils (%) (Auto) 90.0, Lymphocytes (%) (Auto) 4.1, Monocytes (%) (Auto) 3.4, Eosinophils (%) (Auto) 2.1, Basophils (%) (Auto) 0.1, Neutrophils # (Auto) 9.09, Lymphocytes # (Auto) 0.41, Monocytes # (Auto) 0.34, Eosinophils # (Auto) 0.21, Basophils # (Auto) 0.01 07/05/17 22:04 07/06/17 04:59 07/06/17 06:38 Test 07/05/17 19:57 07/05/17 22:04 07/06/17 03:10 07/06/17 04:59 Bedside Glucose 90 mg/dl (70-99) White Blood Count 9.43 K/uL (4.8-10.8) Red Blood Count 3.50 M/uL (4.7-6.1) Hemoglobin 10.3 g/dL (14.0-18.0) Hematocrit 31.8 % (42-52) Mean Corpuscular Volume 90.9 fL (80-100) Mean Corpuscular Hemoglobin 29.4 pg (25-34) Mean Corpuscular Hemoglobin Concent 32.4 g/dl (32-36) Platelet Count 147 K/uL (130-400) Mean Platelet Volume 9.8 fL (7.4-10.4) Neutrophils (%) (Auto) 88.6 % Lymphocytes (%) (Auto) 5.6 % Monocytes (%) (Auto) 3.4 % Eosinophils (%) (Auto) 2.1 % Basophils (%) (Auto) 0.1 % Neutrophils # (Auto) 8.35 K/uL (1.4-6.5) Lymphocytes # (Auto) 0.53 K/uL (1.2-3.4) Monocytes # (Auto) 0.32 K/uL (0.11-0.59) Eosinophils # (Auto) 0.20 K/uL (0-0.5) Basophils # (Auto) 0.01 K/uL (0-0.2) RDW Standard Deviation 77.2 fL (36.4-46.3) RDW Coefficient of Variation 23.3 % (11.5-14.5) Immature Granulocyte % (Auto) 0.2 % Immature Granulocyte # (Auto) 0.02 K/uL (0.00-0.02) Platelet Estimate NORMAL Anisocytosis PRESENT Spherocytes 1+ Ovalocytes 1+ Acanthocytes 1+ Schistocytes 2+ Prothrombin Time 10.4 SECONDS (9.0-12.0) Prothromb Time International Ratio 1.0 (0.9-1.1) Activated Partial Thromboplast Time 33.2 SECONDS (21.0-31.0) Partial Thromboplastin Ratio 1.3 Anion Gap 7.0 mmol/L (3-11) Est Creatinine Clear Calc Drug Dose 23.9 ml/min 22.0 ml/min Estimated GFR () 22.1 20.0 Estimated GFR (Non- 19.0 17.2 BUN/Creatinine Ratio 12.0 (10-20) Calcium Level 7.6 mg/dl (8.5-10.1) Total Bilirubin 0.3 mg/dl (0.2-1) Aspartate Amino Transf (AST/SGOT) 50 U/L (15-37) Alanine Aminotransferase (ALT/SGPT) 33 U/L (12-78) Alkaline Phosphatase 81 U/L (45-117) Total Protein 4.1 gm/dl (6.4-8.2) Albumin 1.4 gm/dl (3.4-5.0) Globulin 2.7 gm/dl (2.5-4.0) Albumin/Globulin Ratio 0.5 (0.9-2) Urine Color YELLOW Urine Appearance CLEAR (CLEAR) Urine pH 5.5 (4.5-7.5) Urine Specific [place] 1.022 (1.000-1.030) Urine Protein 3+ (NEG) Urine Glucose (UA) TRACE (NEG) Urine Ketones NEG (NEG) Urine Occult Blood NEG (NEG) Urine Nitrite NEG (NEG) Urine Bilirubin NEG (NEG) Urine Urobilinogen NEG (NEG) Urine Leukocyte Esterase NEG (NEG) Urine WBC (Auto) 1-5 /hpf (0-5) Urine RBC (Auto) 5-10 /hpf (0-4) Urine Hyaline Casts (Auto) 5-10 /lpf (0-5) Urine Epithelial Cells (Auto) 20-30 /lpf (0-5) Urine Bacteria (Auto) NEG (NEG) Test 07/06/17 05:32 07/06/17 05:57 07/06/17 06:38 07/06/17 07:01 Bedside Glucose 61 mg/dl (70-99) 118 mg/dl (70-99) 92 mg/dl (70-99) White Blood Count 10.09 K/uL (4.8-10.8) Red Blood Count 3.37 M/uL (4.7-6.1) Hemoglobin 9.9 g/dL (14.0-18.0) Hematocrit 30.7 % (42-52) Mean Corpuscular Volume 91.1 fL (80-100) Mean Corpuscular Hemoglobin 29.4 pg (25-34) Mean Corpuscular Hemoglobin Concent 32.2 g/dl (32-36) Platelet Count 145 K/uL (130-400) Mean Platelet Volume 10.1 fL (7.4-10.4) Neutrophils (%) (Auto) 90.0 % Lymphocytes (%) (Auto) 4.1 % Monocytes (%) (Auto) 3.4 % Eosinophils (%) (Auto) 2.1 % Basophils (%) (Auto) 0.1 % Neutrophils # (Auto) 9.09 K/uL (1.4-6.5) Lymphocytes # (Auto) 0.41 K/uL (1.2-3.4) Monocytes # (Auto) 0.34 K/uL (0.11-0.59) Eosinophils # (Auto) 0.21 K/uL (0-0.5) Basophils # (Auto) 0.01 K/uL (0-0.2) RDW Standard Deviation 78.0 fL (36.4-46.3) RDW Coefficient of Variation 23.2 % (11.5-14.5) Immature Granulocyte % (Auto) 0.3 % Immature Granulocyte # (Auto) 0.03 K/uL (0.00-0.02) Platelet Estimate DECREASED Anisocytosis PRESENT Spherocytes 1+ Anion Gap 6.0 mmol/L (3-11) Est Creatinine Clear Calc Drug Dose 21.2 ml/min Estimated GFR () 19.1 Estimated GFR (Non- 16.5 BUN/Creatinine Ratio 11.2 (10-20) Calcium Level 7.5 mg/dl (8.5-10.1) Phosphorus Level 3.4 mg/dl (2.5-4.9) Magnesium Level 2.2 mg/dl (1.8-2.4) Test 07/06/17 11:36 Bedside Glucose 138 mg/dl (70-99) Date/Time Source Procedure Growth Status 07/05/17 21:00 Nasal MRSA DNA Surveillance Screen - Final Specimen Negative for MRSA by DNA Probe Complete Allergies Coded Allergies: Iodinated Diagnostic Agents (Verified Allergy, Unknown, oil based, severe headaches, 06/20/17) EVENT OCCURED IN 1971, PT STATES HE HAS HAD 3 DIFFERENT WATER BASED IVP DYES WITH NO ISSUE Medications Current Inpatient Medications Medications (Trade) Dose Ordered Sig/Edward Route Start Time Stop Time Status Last Admin Dose Admin Acetaminophen (Tylenol Tab) 650 mg Q4H PRN PO 07/05/17 21:45 08/04/17 21:44 Ertapenem 500 mg/ Sodium Chloride 55 ml @ 120 mls/hr Q24H IV 07/05/17 23:00 08/16/17 22:59 07/05/17 23:35 120 MLS/HR Ertapenem (Consult) 1 ea UD PRN N/A 07/05/17 22:00 08/04/17 21:59 Daptomycin (Consult) 1 ea UD PRN N/A 07/05/17 22:00 08/04/17 21:59 Daptomycin 350 mg/ Syringe 7 ml @ 3.5 mls/min Q48H IV 07/06/17 20:00 08/17/17 19:59 Amlodipine Besylate (Norvasc Tab) 10 mg QAM PO 07/06/17 09:00 08/05/17 08:59 07/06/17 07:49 10 MG Aspirin (Ecotrin Tab) 81 mg QAM PO 07/06/17 09:00 08/05/17 08:59 07/06/17 07:49 81 MG Calcitriol (Rocaltrol Cap) 0.25 mcg Q2D PO 07/06/17 09:00 08/05/17 08:59 07/06/17 07:51 0.25 MCG Calcium Carbonate (Tums Chew Tab) 500 mg TID PO 07/06/17 09:00 08/05/17 08:59 07/06/17 07:50 500 MG Furosemide (Lasix Tab) 40 mg QAM PO 07/06/17 09:00 08/05/17 08:59 07/06/17 07:49 40 MG Hydralazine HCl (Apresoline Tab) 100 mg TID PO 07/06/17 09:00 08/05/17 08:59 07/06/17 07:51 100 MG Insulin Glargine (Lantus Solostar Pen) 14 units HS SC 07/06/17 21:00 08/05/17 20:59 Lactobacillus Acidophilus (Floranex Tab) 2 tab TID PO 07/06/17 09:00 08/05/17 08:59 07/06/17 07:49 2 TAB Lisinopril (Zestril Tab) 40 mg DAILY PO 07/06/17 09:00 08/05/17 08:59 07/06/17 07:49 40 MG Methadone HCl (Dolophine Tab) 10 mg TID PO 07/06/17 09:00 07/20/17 08:59 07/06/17 08:34 10 MG Metoprolol Tartrate (Lopressor Tab) 150 mg BID PO 07/06/17 09:00 08/05/17 08:59 07/06/17 07:50 150 MG Polyethylene (Miralax Powder Packet) 17 gm DAILY PRN PO 07/06/17 02:30 08/05/17 02:29 Prednisone (PredniSONE TAB) 10 mg BID PO 07/06/17 09:00 08/05/17 08:59 07/06/17 07:50 10 MG Simvastatin (Zocor Tab) 20 mg QPM PO 07/06/17 21:00 08/05/17 20:59 Tamsulosin HCl (Flomax Cap) 0.4 mg HS PO 07/06/17 21:00 08/05/17 20:59 Cabozantinib (Cabometyx) 60 mg DAILY@0500 PO 07/06/17 05:00 08/05/17 04:59 07/06/17 05:02 60 MG Oxycodone HCl (Roxicodone Immediate Rel Tab) 10 mg TID PO 07/06/17 09:00 08/05/17 08:59 07/06/17 08:34 10 MG Insulin Aspart (novoLOG ASPART) SLIDING SCALE G... ACHS SC 07/06/17 07:00 08/05/17 06:59 Fentanyl (Duragesic Patch) 25 mcg Q3D TD 07/07/17 09:00 07/21/17 08:59 Miscellaneous (Fentanyl Patch Remove & Waste) 1 ea Q3D N/A 07/07/17 08:59 08/06/17 08:58 Miscellaneous Information (Check Fentanyl Patch Placement) 1 ea QS N/A 07/06/17 08:00 08/05/17 07:59 07/06/17 07:51 1 EA Glucose (Glucose 40% Gel) 15-30 GRAMS 15 GRAMS... UD PRN PO 07/06/17 04:15 08/05/17 04:14 Glucose (Glucose Chew Tab) 4-8 Tablets 4 Tabl... UD PRN PO 07/06/17 04:15 08/05/17 04:14 Dextrose (Dextrose 50% 50ML Syringe) 25-50ML OF 50% DW IV FOR... UD PRN IV 07/06/17 04:15 08/05/17 04:14 07/06/17 05:40 25 ML Glucagon (Glucagon Inj) 1 mg UD PRN SQ 07/06/17 04:15 08/05/17 04:14 Heparin Sodium (Porcine) (Heparin Iv Bolus) 2,000 unit 0945 IV 07/06/17 09:45 07/06/17 16:00 Heparin Sodium (Porcine) (Heparin Iv Bolus) 1,000 unit Q1H IV 07/06/17 09:45 07/06/17 16:00 Epoetin Mohsen 8000 units/Syringe 0.4 ml @ 1 mls/min TODAY@0945 IV. 07/06/17 09:45 07/06/17 12:00 Impression (1) Cellulitis of left hand (2) ESRD (end stage renal disease) on dialysis (3) Renal cell carcinoma (4) Anemia (5) Diabetes type 2, controlled Recommendations Patient was seen & examined in the ICU while on HD this am. AVF is functioning well. Patient is hemodynamically stable without complaints. No change to HD prescription at this time.
--- NOTE | 2017-07-06 12:37 | Oncology Consultation ---
Oncology/Heme Consultation Date of Consultation: Jul 06, 2017. Attending Physician: Maddy Hood M.D. Reason for Consultation: History of renal cell carcinoma History of Present Illness Mr. Christy is a 61-year-old gentleman with a history of renal cell (clear cell) carcinoma (09/2015). He had presented with a large left renal mass as he was being evaluated for low back pain. This was resected with several regional lymph nodes being involved. CT scan evaluation immediately postoperative the showed no definite evidence of metastatic disease however CT images would then demonstrate retroperitoneal adenopathy and he was begun first on Sutent. He would develop significant proteinuria and worsening renal function - and at that point he was switched to Nivolumab which began in October of this year. His disease would progress and more recently he is now on a multitargeted agent Cometriq at 60 mg a day. His renal function was further decline and is now on hemodialysis. He has had cellulitis in his left hand that was originally treated with IV antibiotics with some resolution but apparently this worsened prompting her readmission. He denies fever or chills. He states he does get somewhat winded with any exertion. He states he has an occasional loose stool. He denies any overt bleeding. He denies any significant chest pain Past Medical/Surgical History Medical Problems: (1) Acute dyspnea Status: Acute (2) Chronic kidney disease Status: Acute (3) Failure of outpatient treatment Status: Acute (4) Left arm cellulitis Status: Acute (5) Renal cell carcinoma Status: Acute Family History Cervical cancer Diabetes mellitus Heart disease Hypertension Myocardial infarction Pancreatic cancer Prostate cancer Social History Smoking Status: Never Smoker Smokeless Tobacco Use: No Alcohol Use: none Drug Use: none Marital Status: single Housing Status: lives alone Occupation Status: disabled Allergies Coded Allergies: Iodinated Diagnostic Agents (Verified Allergy, Unknown, oil based, severe headaches, 06/20/17) EVENT OCCURED IN 1971, PT STATES HE HAS HAD 3 DIFFERENT WATER BASED IVP DYES WITH NO ISSUE Home Medications Scheduled Amlodipine (Norvasc), 10 MG PO QAM Aspirin (Aspirin Ec), 81 MG PO QAM Cabozantinib S-Malate (Cabometyx), 60 MG PO QAM Calcitriol (Calcitriol), 0.25 MCG PO Q2D Calcium Carbonate (Tums), 500 MG PO WM Daptomycin (Daptomycin), 350 MG IV Q48H Fentanyl (Fentanyl), 25 PATCH TOP [id number] Furosemide (Furosemide), 40 MG PO QAM Hydralazine Hcl (Apresoline), 100 MG PO TID Insulin Glargine (Lantus Solostar), 14 UNITS SC HS Insulin Isophane (Human) (Humulin N Kwikpen), UNITS SC TID Lactobacillus Acidophilus (Floranex), 2 TABS OR TID Lisinopril (Lisinopril), 1 TAB OR DAILY Methadone HCl (Methadone HCl), 10 MG PO TID Metoprolol Tartrate (Lopressor) (Lopressor), 100 MG PO BID Oxycodone Hcl (Oxycodone Hcl), 10 MG PO TID Prednisone Tab (Prednisone), 10 MG PO TID Simvastatin (Zocor), 20 MG PO QPM Tamsulosin Hcl (Flomax), 0.4 MG PO HS Scheduled PRN Polyethylene (Miralax), 17 GM PO DAILY PRN for Constipation Current Inpatient Medications Current Inpatient Medications Medications (Trade) Dose Ordered Sig/Edward Route Start Time Stop Time Status Last Admin Dose Admin Acetaminophen (Tylenol Tab) 650 mg Q4H PRN PO 07/05/17 21:45 08/04/17 21:44 Ertapenem 500 mg/ Sodium Chloride 55 ml @ 120 mls/hr Q24H IV 07/05/17 23:00 08/16/17 22:59 07/05/17 23:35 120 MLS/HR Ertapenem (Consult) 1 ea UD PRN N/A 07/05/17 22:00 08/04/17 21:59 Daptomycin (Consult) 1 ea UD PRN N/A 07/05/17 22:00 08/04/17 21:59 Daptomycin 350 mg/ Syringe 7 ml @ 3.5 mls/min Q48H IV 07/06/17 20:00 08/17/17 19:59 Amlodipine Besylate (Norvasc Tab) 10 mg QAM PO 07/06/17 09:00 08/05/17 08:59 07/06/17 07:49 10 MG Aspirin (Ecotrin Tab) 81 mg QAM PO 07/06/17 09:00 08/05/17 08:59 07/06/17 07:49 81 MG Calcitriol (Rocaltrol Cap) 0.25 mcg Q2D PO 07/06/17 09:00 08/05/17 08:59 07/06/17 07:51 0.25 MCG Calcium Carbonate (Tums Chew Tab) 500 mg TID PO 07/06/17 09:00 08/05/17 08:59 07/06/17 07:50 500 MG Furosemide (Lasix Tab) 40 mg QAM PO 07/06/17 09:00 08/05/17 08:59 07/06/17 07:49 40 MG Hydralazine HCl (Apresoline Tab) 100 mg TID PO 07/06/17 09:00 08/05/17 08:59 07/06/17 07:51 100 MG Insulin Glargine (Lantus Solostar Pen) 14 units HS SC 07/06/17 21:00 08/05/17 20:59 Lactobacillus Acidophilus (Floranex Tab) 2 tab TID PO 07/06/17 09:00 08/05/17 08:59 07/06/17 07:49 2 TAB Lisinopril (Zestril Tab) 40 mg DAILY PO 07/06/17 09:00 08/05/17 08:59 07/06/17 07:49 40 MG Methadone HCl (Dolophine Tab) 10 mg TID PO 07/06/17 09:00 07/20/17 08:59 07/06/17 08:34 10 MG Metoprolol Tartrate (Lopressor Tab) 150 mg BID PO 07/06/17 09:00 08/05/17 08:59 07/06/17 07:50 150 MG Polyethylene (Miralax Powder Packet) 17 gm DAILY PRN PO 07/06/17 02:30 08/05/17 02:29 Prednisone (PredniSONE TAB) 10 mg BID PO 07/06/17 09:00 08/05/17 08:59 07/06/17 07:50 10 MG Simvastatin (Zocor Tab) 20 mg QPM PO 07/06/17 21:00 08/05/17 20:59 Tamsulosin HCl (Flomax Cap) 0.4 mg HS PO 07/06/17 21:00 08/05/17 20:59 Cabozantinib (Cabometyx) 60 mg DAILY@0500 PO 07/06/17 05:00 08/05/17 04:59 07/06/17 05:02 60 MG Oxycodone HCl (Roxicodone Immediate Rel Tab) 10 mg TID PO 07/06/17 09:00 08/05/17 08:59 07/06/17 08:34 10 MG Insulin Aspart (novoLOG ASPART) SLIDING SCALE G... ACHS SC 07/06/17 07:00 08/05/17 06:59 Fentanyl (Duragesic Patch) 25 mcg Q3D TD 07/07/17 09:00 07/21/17 08:59 Miscellaneous (Fentanyl Patch Remove & Waste) 1 ea Q3D N/A 07/07/17 08:59 08/06/17 08:58 Miscellaneous Information (Check Fentanyl Patch Placement) 1 ea QS N/A 07/06/17 08:00 08/05/17 07:59 07/06/17 07:51 1 EA Glucose (Glucose 40% Gel) 15-30 GRAMS 15 GRAMS... UD PRN PO 07/06/17 04:15 08/05/17 04:14 Glucose (Glucose Chew Tab) 4-8 Tablets 4 Tabl... UD PRN PO 07/06/17 04:15 08/05/17 04:14 Dextrose (Dextrose 50% 50ML Syringe) 25-50ML OF 50% DW IV FOR... UD PRN IV 07/06/17 04:15 08/05/17 04:14 07/06/17 05:40 25 ML Glucagon (Glucagon Inj) 1 mg UD PRN SQ 07/06/17 04:15 08/05/17 04:14 Heparin Sodium (Porcine) (Heparin Iv Bolus) 2,000 unit 0945 IV 07/06/17 09:45 07/06/17 16:00 Heparin Sodium (Porcine) (Heparin Iv Bolus) 1,000 unit Q1H IV 07/06/17 09:45 07/06/17 16:00 Review of Systems Constitutional: Negative for night sweats, or fever Eyes: Negative for event change of vision ENT: Negative for epistaxis, nasal discharge, sore throat, or deafness Cardiovascular: Negative for chest pain, palpitations, dizziness, diaphoresis Respiratory: Negative for new shortness of breath,hemoptysis, or purulent cough Gastrointestinal: Negative for diarrhea, hematemesis, melena, nausea, vomiting , or dyspepsia Integumentary (skin): Negative for rash or jaundice discoloration. Does have erythema involving the left hand and distal portion of his left arm consistent with a cellulitis Genitourinary: Negative for urinary frequency, hematuria, or dysuria Neurological: Negative for weakness, seizure activity, headache, or dizziness Lymphatic/Hematologic: Negative for petechiae, bleeding or new adenopathy Musculoskeletal: Negative for new joint or back pain Allergic/Immunologic: Negative for unusual rash or pruritis. Physical Exam Date Time Temp Pulse Resp B/P (MAP) Pulse Ox O2 Delivery O2 Flow Rate FiO2 07/06/17 11:54 37.1 84 20 133/67 (89) 95 Nasal Cannula 2.0 07/06/17 08:00 Nasal Cannula 2.0 07/06/17 07:56 37.0 89 25 166/82 (110) 93 Nasal Cannula 2.0 07/06/17 04:00 Nasal Cannula 2.0 07/06/17 03:00 36.8 94 23 174/85 (114) 94 Nasal Cannula 2.0 07/05/17 23:59 Nasal Cannula 2.0 07/05/17 23:55 36.8 87 18 151/73 (99) 97 Nasal Cannula 2.0 07/05/17 19:50 37.1 89 20 169/82 (111) 95 Nasal Cannula 3.0 07/05/17 18:13 94 Nasal Cannula 2.0 Constitutional: vitals are stable. Eyes: Eyes are YSABEL EOMI without conjuctival erythema or icterus. ENT: External examination was negative for masses. Neck: Negative for masses or palpable thyromegaly Respiratory: Lung sounds were generally clear bilaterally Cardiovascular: Heart was RRR without significant murmur, gallops aoe rubs Gastrointestinal: No palpable hepatic or splenomegaly. The abdomen was soft with normal bowel sounds. Lymphatic system: there was no palpable peripheral lymphadenopathy Musculoskeletal System: The musculoskeletal system seemed concordant with age. Skin: The skin was negative for jaundice. Neurologic exam: The exam was negative for any focal findings. Deep tendon reflexes were equal and symmetrical. Psychiatric exam: Was essentially negative with normal mood and effect. Extremities: negative for significant edema. Slight erythema and swelling left hand and distal portion of his left arm. Laboratory Results Last 24 Hours Test 07/05/17 19:57 07/05/17 22:04 07/06/17 03:10 07/06/17 04:59 Bedside Glucose 90 mg/dl White Blood Count 9.43 K/uL Red Blood Count 3.50 M/uL Hemoglobin 10.3 g/dL Hematocrit 31.8 % Mean Corpuscular Volume 90.9 fL Mean Corpuscular Hemoglobin 29.4 pg Mean Corpuscular Hemoglobin Concent 32.4 g/dl Platelet Count 147 K/uL Mean Platelet Volume 9.8 fL Neutrophils (%) (Auto) 88.6 % Lymphocytes (%) (Auto) 5.6 % Monocytes (%) (Auto) 3.4 % Eosinophils (%) (Auto) 2.1 % Basophils (%) (Auto) 0.1 % Neutrophils # (Auto) 8.35 K/uL Lymphocytes # (Auto) 0.53 K/uL Monocytes # (Auto) 0.32 K/uL Eosinophils # (Auto) 0.20 K/uL Basophils # (Auto) 0.01 K/uL RDW Standard Deviation 77.2 fL RDW Coefficient of Variation 23.3 % Immature Granulocyte % (Auto) 0.2 % Immature Granulocyte # (Auto) 0.02 K/uL Platelet Estimate NORMAL Anisocytosis PRESENT Spherocytes 1+ Ovalocytes 1+ Acanthocytes 1+ Schistocytes 2+ Prothrombin Time 10.4 SECONDS Prothromb Time International Ratio 1.0 Activated Partial Thromboplast Time 33.2 SECONDS Partial Thromboplastin Ratio 1.3 Sodium Level 136 mmol/L Potassium Level 3.5 mmol/L Chloride Level 97 mmol/L Carbon Dioxide Level 32 mmol/L Anion Gap 7.0 mmol/L Blood Urea Nitrogen 39 mg/dl Creatinine 3.27 mg/dl 3.55 mg/dl Est Creatinine Clear Calc Drug Dose 23.9 ml/min 22.0 ml/min Estimated GFR () 22.1 20.0 Estimated GFR (Non- 19.0 17.2 BUN/Creatinine Ratio 12.0 Random Glucose 130 mg/dl Calcium Level 7.6 mg/dl Total Bilirubin 0.3 mg/dl Aspartate Amino Transf (AST/SGOT) 50 U/L Alanine Aminotransferase (ALT/SGPT) 33 U/L Alkaline Phosphatase 81 U/L Total Protein 4.1 gm/dl Albumin 1.4 gm/dl Globulin 2.7 gm/dl Albumin/Globulin Ratio 0.5 Urine Color YELLOW Urine Appearance CLEAR Urine pH 5.5 Urine Specific [place] 1.022 Urine Protein 3+ Urine Glucose (UA) TRACE Urine Ketones NEG Urine Occult Blood NEG Urine Nitrite NEG Urine Bilirubin NEG Urine Urobilinogen NEG Urine Leukocyte Esterase NEG Urine WBC (Auto) 1-5 /hpf Urine RBC (Auto) 5-10 /hpf Urine Hyaline Casts (Auto) 5-10 /lpf Urine Epithelial Cells (Auto) 20-30 /lpf Urine Bacteria (Auto) NEG Test 07/06/17 05:32 07/06/17 05:57 07/06/17 06:38 07/06/17 07:01 Bedside Glucose 61 mg/dl 118 mg/dl 92 mg/dl White Blood Count 10.09 K/uL Red Blood Count 3.37 M/uL Hemoglobin 9.9 g/dL Hematocrit 30.7 % Mean Corpuscular Volume 91.1 fL Mean Corpuscular Hemoglobin 29.4 pg Mean Corpuscular Hemoglobin Concent 32.2 g/dl Platelet Count 145 K/uL Mean Platelet Volume 10.1 fL Neutrophils (%) (Auto) 90.0 % Lymphocytes (%) (Auto) 4.1 % Monocytes (%) (Auto) 3.4 % Eosinophils (%) (Auto) 2.1 % Basophils (%) (Auto) 0.1 % Neutrophils # (Auto) 9.09 K/uL Lymphocytes # (Auto) 0.41 K/uL Monocytes # (Auto) 0.34 K/uL Eosinophils # (Auto) 0.21 K/uL Basophils # (Auto) 0.01 K/uL RDW Standard Deviation 78.0 fL RDW Coefficient of Variation 23.2 % Immature Granulocyte % (Auto) 0.3 % Immature Granulocyte # (Auto) 0.03 K/uL Platelet Estimate DECREASED Anisocytosis PRESENT Spherocytes 1+ Sodium Level 136 mmol/L Potassium Level 3.6 mmol/L Chloride Level 98 mmol/L Carbon Dioxide Level 32 mmol/L Anion Gap 6.0 mmol/L Blood Urea Nitrogen 41 mg/dl Creatinine 3.68 mg/dl Est Creatinine Clear Calc Drug Dose 21.2 ml/min Estimated GFR () 19.1 Estimated GFR (Non- 16.5 BUN/Creatinine Ratio 11.2 Random Glucose 92 mg/dl Calcium Level 7.5 mg/dl Phosphorus Level 3.4 mg/dl Magnesium Level 2.2 mg/dl Test 07/06/17 11:36 Bedside Glucose 138 mg/dl Assessment & Plan Metastatic renal cell carcinoma. He has been through a couple of agents now and is now on a multitargeted agent Cometriq. He also has renal failure and is now on a chronic hemodialysis program. He has had a recurrent cellulitis of the left arm after a traumatic incident at home. His blood counts and chemistries are acceptable. Our next scans are planned for about mid July. I would asked that he continue his TKI agent (cabozantinib 60 mg a day) while in the hospital. We will follow along with you.
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
[2017-07-06] MEDS: BOOST GLUCOSE CONTROL PO SCH (17:08)
[2017-07-06] MEDS: DAPTOmycin IV 350 MG in SYRINGE 0 ML IV SCH (20:49)
[2017-07-06] MEDS: SIMVASTATIN 20 MG TAB PO SCH (20:50)
[2017-07-06] MEDS: TAMSULOSIN HCL 0.4 MG CAP PO SCH (20:52)
[2017-07-06] MEDS ORDERED: INSULIN GLARGINE SOLOSTAR 100 UNITS/ML 3 ML PEN SC SCH (21:00)
[2017-07-06] MEDS: INSULIN GLARGINE SOLOSTAR 100 UNITS/ML 3 ML PEN SC SCH (21:16)
[2017-07-07] VITALS: BP 130/70; PULSE 74; TEMP 36.7; O2SAT 96
[2017-07-07] MEDS: FENTANYL 25 MCG/HR TDSY TD SCH (01:16)
[2017-07-07] MEDS: ERTAPENEM IV 500 MG in SODIUM CHLORIDE 0.9% 50ML 50 ML IV SCH ×2 (01:19→23:37)
[2017-07-07 04:00] VITALS: BP 127/72; PULSE 79; TEMP 36.7; O2SAT 97
[2017-07-07 05:47] LABS: HEMATOCRIT 28.9 % (42-52); HEMOGLOBIN 9.2 g/dL (14.0-18.0); MEAN CELL VOLUME 90.6 fL (80-100); MEAN CORPUSCULAR HEMOGLOBIN 28.8 pg (25-34); MEAN CORPUSCULAR HGB CONC 31.8 g/dl (32-36); MEAN PLATELET VOLUME 10.2 fL (7.4-10.4); NUCLEATED RED BLOOD CELL ABS 0.02 K/uL (0-0); PLATELET COUNT 167 K/uL (130-400); RED CELL DISTRIBUTION WIDTH CV 22.5 % (11.5-14.5); RED CELL DISTRIBUTION WIDTH SD 74.6 fL (36.4-46.3); WHITE BLOOD COUNT 8.51 K/uL (4.8-10.8)
[2017-07-07] MEDS: CABOZANTINIB S MALATE 60 MG PO SCH (05:47)
[2017-07-07 06:23] LABS: CALCIUM 7.6 mg/dl (8.5-10.1); CREATININE 2.95 mg/dl (0.60-1.40); POTASSIUM 4.3 mmol/L (3.5-5.1)
--- NOTE | 2017-07-07 07:13 | DIAGNOSTIC IMAGING REPORT ---
L UPPER EXT NONJOINT WITHOUT HISTORY: 61 years-old Male left hand cellulitis, rule out abscess/deeper collection soft tissue swelling with cellulitis of the left hand. History of prior carpal tunnel surgery and trigger finger surgery 10 years prior. History of renal cell carcinoma. Concern for possible osteomyelitis. COMPARISON: Left hand radiographs 07/05/2017 TECHNIQUE: Multiplanar multisequence MRI of the left hand was obtained without contrast. FINDINGS: Large field view field spec localizer images demonstrate no focal abnormality. Several of the sequences are moderately motion degraded. 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 No acute fracture or dislocation identified. No significant bone marrow edema, periostitis or erosive changes to suggest osteomyelitis. T1 marrow signal appears preserved throughout the hand and wrist. There is mild to moderate diffuse subcutaneous edema about the hand with mild edema of the intrinsic musculature about the hand. No drainable fluid collections. No significant tenosynovitis. The flexor and extensor tendons appear intact without discrete tear identified. No bowing of the flexor retinaculum. The ulnar nerve appears unremarkable. The median nerve is also unremarkable. IMPRESSION: 1. Motion degraded exam. 2. Mild to moderate diffuse subcutaneous edema about the hand with mild edema of the intrinsic musculature suggests cellulitis with myositis. No focal bone marrow edema or erosive changes to suggest osteomyelitis at this time. No drainable fluid collections. 3. Mild multifocal degenerative changes as above without fracture. 4. No evidence of significant tenosynovitis or tendon tear. The above report was generated using voice recognition software. It may contain grammatical, syntax or spelling errors. Electronically signed by: Mike Oconnor M.D. 07/07/2017 7:11 AM Dictated Date/Time: 07/07/2017 6:58 AM
[2017-07-07 07:48] VITALS: BP 138/70; PULSE 71; TEMP 36.6; O2SAT 96
[2017-07-07] MEDS: CALCIUM CARBONATE 500 MG CHEWABLE PO SCH ×3 (08:47→17:05)
[2017-07-07] MEDS: OXYCODONE HCL IR 5 MG TAB (IMMEDIATE RELEASE) PO SCH ×3 (08:47→20:18)
[2017-07-07] MEDS: METHADONE HCL 10 MG TAB PO SCH ×3 (08:47→20:17)
[2017-07-07] MEDS: METOPROLOL TARTRATE 100 MG TAB PO SCH ×2 (08:49→20:09)
[2017-07-07] MEDS: LISINOPRIL 40 MG TAB PO SCH (08:49)
[2017-07-07] MEDS: FUROSEMIDE 40 MG TAB PO SCH (08:49)
[2017-07-07] MEDS: AMLODIPINE BESYLATE 5 MG TAB PO SCH (08:50)
[2017-07-07] MEDS: ASPIRIN 81 MG ECTAB PO SCH (08:50)
[2017-07-07] MEDS: LACTOBACILLUS ACIDOPHILUS (FLORANEX) TAB PO SCH ×3 (08:50→20:12)
[2017-07-07] MEDS: CHECK FENTANYL PATCH PLACEMENT SCH ×4 (08:51→23:37)
[2017-07-07] MEDS: BOOST GLUCOSE CONTROL PO SCH ×2 (08:51→17:05)
[2017-07-07] MEDS: INSULIN ASPART 100 UNITS/ML 3 ML PEN SC SCH ×4 (08:58→21:16)
[2017-07-07] MEDS ORDERED: FENTANYL PATCH REMOVE & WASTE SCH (08:59)
[2017-07-07] MEDS ORDERED: FENTANYL 25 MCG/HR TDSY TD SCH (09:00)
--- NOTE | 2017-07-07 11:04 | Nephrology Progress Note ---
Nephrology Progress Note Date of Service Jul 07, 2017. Chief Complaint Provide inpatient HD and assist w/ medical management of this patient w/ ESRD Subjective Mr. Christy reports that his L hand swelling is improved. He denies fever. He was dialyzed yesterday according to his outpatient prescription without complication. Mr. Christy voices no new medical concerns at this time. Review of Systems Constitutional: No fever Cardiovascular: No chest pain Respiratory: No dyspnea at rest Abdomen: No pain, No nausea, No vomiting Extremities: + problem reported (R hand and wrist remain swollen), No leg edema A complete review of systems was performed. Pertinent positives are noted above. All other systems are negative. Vital Signs Last 8 Hrs Date Time Temp Pulse Resp B/P (MAP) Pulse Ox O2 Delivery O2 Flow Rate FiO2 07/07/17 08:30 Nasal Cannula 2.0 07/07/17 07:48 36.6 71 18 138/70 (92) 96 07/07/17 04:00 36.7 79 20 127/72 (90) 97 2.0 Last Recorded Weight Weight (Kilograms): 81.200 Physical Exam General Appearance: no apparent distress Head: normocephalic, atraumatic Eyes: PERRL, EOMI Neck: no adenopathy Respiratory/Chest: lungs clear, no respiratory distress Cardiovascular: regular rate, rhythm Abdomen/GI: normal bowel sounds, non tender, soft Extremities/Musculoskelatal: no pedal edema, + pertinent finding (L hand and wrist appear less swollen and erythematous) Neurologic/Psych: alert, oriented x 3 Family History Cervical cancer Diabetes mellitus Heart disease Hypertension Myocardial infarction Pancreatic cancer Prostate cancer Negative for CKD/ESRD Social History Smokeless Tobacco Use: No Alcohol Use: none Drug Use: none Marital Status: single Housing Status: lives alone Occupation: disabled Single, retired. Formerly worked for [employer]. Never a smoker. Laboratory Results Past 24 Hours 07/07/17 05:32 07/07/17 05:32 Test 07/06/17 11:36 07/06/17 16:05 07/06/17 20:45 07/07/17 02:55 Bedside Glucose 138 mg/dl (70-99) 123 mg/dl (70-99) 185 mg/dl (70-99) 209 mg/dl (70-99) Test 07/07/17 05:32 07/07/17 07:56 Red Blood Count 3.19 M/uL (4.7-6.1) Mean Corpuscular Volume 90.6 fL (80-100) Mean Corpuscular Hemoglobin 28.8 pg (25-34) Mean Corpuscular Hemoglobin Concent 31.8 g/dl (32-36) RDW Standard Deviation 74.6 fL (36.4-46.3) RDW Coefficient of Variation 22.5 % (11.5-14.5) Mean Platelet Volume 10.2 fL (7.4-10.4) Nucleated RBC Absolute Count (auto) 0.02 K/uL (0-0) Nucleated Red Blood Cells % 0.3 % Anion Gap 7.0 mmol/L (3-11) Est Creatinine Clear Calc Drug Dose 26.5 ml/min Estimated GFR () 25.0 Estimated GFR (Non- 21.6 BUN/Creatinine Ratio 11.6 (10-20) Calcium Level 7.6 mg/dl (8.5-10.1) Bedside Glucose 183 mg/dl (70-99) Allergies Coded Allergies: Iodinated Diagnostic Agents (Verified Allergy, Unknown, oil based, severe headaches, 06/20/17) EVENT OCCURED IN 1971, PT STATES HE HAS HAD 3 DIFFERENT WATER BASED IVP DYES WITH NO ISSUE Medications Current Inpatient Medications Medications (Trade) Dose Ordered Sig/Edward Route Start Time Stop Time Status Last Admin Dose Admin Acetaminophen (Tylenol Tab) 650 mg Q4H PRN PO 07/05/17 21:45 08/04/17 21:44 Ertapenem 500 mg/ Sodium Chloride 55 ml @ 120 mls/hr Q24H IV 07/05/17 23:00 08/16/17 22:59 07/07/17 01:19 120 MLS/HR Ertapenem (Consult) 1 ea UD PRN N/A 07/05/17 22:00 08/04/17 21:59 Daptomycin (Consult) 1 ea UD PRN N/A 07/05/17 22:00 08/04/17 21:59 Daptomycin 350 mg/ Syringe 7 ml @ 3.5 mls/min Q48H IV 07/06/17 20:00 08/17/17 19:59 07/06/17 20:49 3.5 MLS/MIN Amlodipine Besylate (Norvasc Tab) 10 mg QAM PO 07/06/17 09:00 08/05/17 08:59 07/07/17 08:50 10 MG Aspirin (Ecotrin Tab) 81 mg QAM PO 07/06/17 09:00 08/05/17 08:59 07/07/17 08:50 81 MG Calcitriol (Rocaltrol Cap) 0.25 mcg Q2D PO 07/06/17 09:00 08/05/17 08:59 07/06/17 07:51 0.25 MCG Calcium Carbonate (Tums Chew Tab) 500 mg TID PO 07/06/17 09:00 08/05/17 08:59 07/07/17 08:47 500 MG Furosemide (Lasix Tab) 40 mg QAM PO 07/06/17 09:00 08/05/17 08:59 07/07/17 08:49 40 MG Hydralazine HCl (Apresoline Tab) 100 mg TID PO 07/06/17 09:00 08/05/17 08:59 07/07/17 08:49 100 MG Lactobacillus Acidophilus (Floranex Tab) 2 tab TID PO 07/06/17 09:00 08/05/17 08:59 07/07/17 08:50 2 TAB Lisinopril (Zestril Tab) 40 mg DAILY PO 07/06/17 09:00 08/05/17 08:59 07/07/17 08:49 40 MG Methadone HCl (Dolophine Tab) 10 mg TID PO 07/06/17 09:00 07/20/17 08:59 07/07/17 08:47 10 MG Metoprolol Tartrate (Lopressor Tab) 150 mg BID PO 07/06/17 09:00 08/05/17 08:59 07/07/17 08:49 150 MG Polyethylene (Miralax Powder Packet) 17 gm DAILY PRN PO 07/06/17 02:30 08/05/17 02:29 Prednisone (PredniSONE TAB) 10 mg BID PO 07/06/17 09:00 08/05/17 08:59 07/07/17 08:50 10 MG Simvastatin (Zocor Tab) 20 mg QPM PO 07/06/17 21:00 08/05/17 20:59 07/06/17 20:50 20 MG Tamsulosin HCl (Flomax Cap) 0.4 mg HS PO 07/06/17 21:00 08/05/17 20:59 07/06/17 20:52 0.4 MG Cabozantinib (Cabometyx) 60 mg DAILY@0500 PO 07/06/17 05:00 08/05/17 04:59 07/07/17 05:47 60 MG Oxycodone HCl (Roxicodone Immediate Rel Tab) 10 mg TID PO 07/06/17 09:00 08/05/17 08:59 07/07/17 08:47 10 MG Insulin Aspart (novoLOG ASPART) SLIDING SCALE G... ACHS SC 07/06/17 07:00 08/05/17 06:59 07/07/17 08:58 1 UNITS Miscellaneous Information (Check Fentanyl Patch Placement) 1 ea QS N/A 07/06/17 08:00 08/05/17 07:59 07/07/17 08:51 1 EA Glucose (Glucose 40% Gel) 15-30 GRAMS 15 GRAMS... UD PRN PO 07/06/17 04:15 08/05/17 04:14 Glucose (Glucose Chew Tab) 4-8 Tablets 4 Tabl... UD PRN PO 07/06/17 04:15 08/05/17 04:14 Dextrose (Dextrose 50% 50ML Syringe) 25-50ML OF 50% DW IV FOR... UD PRN IV 07/06/17 04:15 08/05/17 04:14 07/06/17 05:40 25 ML Glucagon (Glucagon Inj) 1 mg UD PRN SQ 07/06/17 04:15 08/05/17 04:14 Insulin Glargine (Lantus Solostar Pen) 7 units HS SC 07/06/17 21:00 08/05/17 20:59 07/06/17 21:16 7 UNITS Enteral Nutritional Formula (Boost Glucose Control) 1 can BIDM PO 07/06/17 16:45 08/05/17 16:44 07/07/17 08:51 1 CAN Miscellaneous (Fentanyl Patch Remove & Waste) 1 ea Q3D N/A 07/10/17 01:00 08/09/17 00:59 Fentanyl (Duragesic Patch) 25 mcg Q3D TD 07/07/17 01:00 07/21/17 00:59 07/07/17 01:16 25 MCG Heparin Sodium (Porcine) (Heparin 100 Unit/ml 5ml Flush) 5 ml PRN PRN IV 07/07/17 02:45 08/06/17 02:44 07/07/17 05:36 5 ML Heparin Sodium (Porcine) (Heparin Iv Bolus) 2,000 unit TODAY@0600 IV 07/08/17 06:00 07/08/17 18:00 Heparin Sodium (Porcine) (Heparin Iv Bolus) 500 unit TODAY@0600,0700 IV 07/08/17 06:00 07/08/17 18:00 Epoetin Mohsen 8000 units/Syringe 0.4 ml @ 1 mls/min TODAY@0600 IV. 07/08/17 06:00 07/08/17 18:00 Impression (1) Cellulitis of left hand (2) ESRD (end stage renal disease) on dialysis (3) Renal cell carcinoma (4) Anemia (5) Diabetes type 2, controlled Recommendations END STAGE RENAL DISEASE: -- Volume status & electrolyte balance remain acceptable at this time. Will plan on next HD in am ANEMIA: -- Will provide IDALIA w/ HD HYPERTENSION: -- BP has improved following UF on HD -- Patient is on Lisinopril, Hydralazine, Amlodipine and Furosemide RENAL CELL CA: -- On Cabozantinib as per Oncology CKD-BMD: -- Continue oral Calcitriol therapy -- Continue CaCO3 500 mg po w/ meals ID: -- On IV Ertapenem and Daptomycin as per ID customer sales consultant
[2017-07-07 11:16] VITALS: BP 151/69; PULSE 72; TEMP 36.4; O2SAT 97
--- NOTE | 2017-07-07 11:24 | Hematology/Oncology Prog Note ---
Hematology/Onc Progress Note Date of Service Jul 07, 2017. Diagnoses metastatic renal cell carcinoma Left hand and arm cellulitis End-stage renal disease Medications Medications Administered Medications (Trade) Dose Ordered Sig/Edward Route Start Time Stop Time Status Last Admin Dose Admin Ertapenem 500 mg/ Sodium Chloride 55 ml @ 120 mls/hr Q24H IV 07/05/17 23:00 08/16/17 22:59 07/07/17 01:19 120 MLS/HR Daptomycin 350 mg/ Syringe 7 ml @ 3.5 mls/min Q48H IV 07/06/17 20:00 08/17/17 19:59 07/06/17 20:49 3.5 MLS/MIN Amlodipine Besylate (Norvasc Tab) 10 mg QAM PO 07/06/17 09:00 08/05/17 08:59 07/07/17 08:50 10 MG Aspirin (Ecotrin Tab) 81 mg QAM PO 07/06/17 09:00 08/05/17 08:59 07/07/17 08:50 81 MG Calcitriol (Rocaltrol Cap) 0.25 mcg Q2D PO 07/06/17 09:00 08/05/17 08:59 07/06/17 07:51 0.25 MCG Calcium Carbonate (Tums Chew Tab) 500 mg TID PO 07/06/17 09:00 08/05/17 08:59 07/07/17 08:47 500 MG Furosemide (Lasix Tab) 40 mg QAM PO 07/06/17 09:00 08/05/17 08:59 07/07/17 08:49 40 MG Hydralazine HCl (Apresoline Tab) 100 mg TID PO 07/06/17 09:00 08/05/17 08:59 07/07/17 08:49 100 MG Lactobacillus Acidophilus (Floranex Tab) 2 tab TID PO 07/06/17 09:00 08/05/17 08:59 07/07/17 08:50 2 TAB Lisinopril (Zestril Tab) 40 mg DAILY PO 07/06/17 09:00 08/05/17 08:59 07/07/17 08:49 40 MG Methadone HCl (Dolophine Tab) 10 mg TID PO 07/06/17 09:00 07/20/17 08:59 07/07/17 08:47 10 MG Metoprolol Tartrate (Lopressor Tab) 150 mg BID PO 07/06/17 09:00 08/05/17 08:59 07/07/17 08:49 150 MG Prednisone (PredniSONE TAB) 10 mg BID PO 07/06/17 09:00 08/05/17 08:59 07/07/17 08:50 10 MG Simvastatin (Zocor Tab) 20 mg QPM PO 07/06/17 21:00 08/05/17 20:59 07/06/17 20:50 20 MG Tamsulosin HCl (Flomax Cap) 0.4 mg HS PO 07/06/17 21:00 08/05/17 20:59 07/06/17 20:52 0.4 MG Cabozantinib (Cabometyx) 60 mg DAILY@0500 PO 07/06/17 05:00 08/05/17 04:59 07/07/17 05:47 60 MG Oxycodone HCl (Roxicodone Immediate Rel Tab) 10 mg TID PO 07/06/17 09:00 08/05/17 08:59 07/07/17 08:47 10 MG Insulin Aspart (novoLOG ASPART) SLIDING SCALE G... ACHS SC 07/06/17 07:00 08/05/17 06:59 07/07/17 08:58 1 UNITS Methylprednisolone Sodium Succinate 50 mg/Syringe 0.8 ml @ 1.5 mls/min NOW ONCE IV 07/06/17 03:45 07/06/17 03:56 DC 07/06/17 04:30 1.5 MLS/MIN Miscellaneous Information (Check Fentanyl Patch Placement) 1 ea QS N/A 07/06/17 08:00 08/05/17 07:59 07/07/17 08:51 1 EA Dextrose (Dextrose 50% 50ML Syringe) 25-50ML OF 50% DW IV FOR... UD PRN IV 07/06/17 04:15 08/05/17 04:14 07/06/17 05:40 25 ML Epoetin Mohsen 8000 units/Syringe 0.4 ml @ 1 mls/min TODAY@0945 IV. 07/06/17 09:45 07/06/17 12:00 DC 07/06/17 12:02 1 MLS/MIN Insulin Glargine (Lantus Solostar Pen) 7 units HS SC 07/06/17 21:00 08/05/17 20:59 07/06/17 21:16 7 UNITS Enteral Nutritional Formula (Boost Glucose Control) 1 can BIDM PO 07/06/17 16:45 08/05/17 16:44 07/07/17 08:51 1 CAN Heparin Sodium (Porcine) (Heparin 10 Unit/ ml 5 ml Flush) 5 ml STK-MED ONCE .ROUTE 07/06/17 21:06 07/06/17 21:07 DC 07/06/17 21:16 5 ML Fentanyl (Duragesic Patch) 25 mcg Q3D TD 07/07/17 01:00 07/21/17 00:59 07/07/17 01:16 25 MCG Heparin Sodium (Porcine) (Heparin 100 Unit/ml 5ml Flush) 5 ml PRN PRN IV 07/07/17 02:45 08/06/17 02:44 07/07/17 05:36 5 ML Subjective Seems to do better although he still has pain in and around his left hand. MRI of that extremity does not show any sort of bony involvement that would be suggestive of underlying osteomyelitis. Edema of the soft tissue and muscles is seen. Review of Systems: Constitutional: Negative for weight loss, night sweats, or fever Eyes: Negative for event change of vision ENT: Negative for epistaxis, nasal discharge, sore throat, or deafness Cardiovascular: Negative for chest pain, palpitations, dizziness, diaphoresis Respiratory: Negative for new shortness of breath,hemoptysis, or purulent cough Gastrointestinal: Negative for diarrhea, hematemesis, melena, nausea, vomiting , or dyspepsia Integumentary (skin): Negative for rash or jaundice discoloration Genitourinary: Negative for urinary frequency, hematuria, or dysuria Neurological: Negative for weakness, seizure activity, headache, or dizziness Lymphatic/Hematologic: Negative for petechiae, bleeding or new adenopathy Musculoskeletal: Negative for new joint or back pain Allergic/Immunologic: Negative for unusual rash or pruritis. Vital Signs Vital Signs Past 12 Hours Date Time Temp Pulse Resp B/P (MAP) Pulse Ox O2 Delivery O2 Flow Rate FiO2 07/07/17 11:16 36.4 72 20 151/69 (96) 97 07/07/17 08:30 Nasal Cannula 2.0 07/07/17 07:48 36.6 71 18 138/70 (92) 96 07/07/17 04:00 36.7 79 20 127/72 (90) 97 2.0 07/07/17 01:00 Nasal Cannula 2.0 07/07/17 00:00 36.7 74 20 130/70 (90) 96 2.0 Physical Exam Constitutional: vitals are stable. Eyes: Eyes are YSABEL EOMI without conjuctival erythema or icterus. ENT: External examination was negative for masses. Neck: Negative for masses or palpable thyromegaly Respiratory: Lung sounds were generally clear bilaterally Cardiovascular: Heart was RRR without significant murmur, gallops aoe rubs Gastrointestinal: No palpable hepatic or splenomegaly. The abdomen was soft with normal bowel sounds. Lymphatic system: there was no palpable peripheral lymphadenopathy Musculoskeletal System: The musculoskeletal system seemed concordant with age. Skin: The skin was negative for jaundice. Neurologic exam: The exam was negative for any focal findings. Deep tendon reflexes were equal and symmetrical. Psychiatric exam: Was essentially negative with normal mood and effect. Extremities: mild edema of the left hand that in general and overall appears improved. Laboratory Last 24 Hours Test 07/06/17 11:36 07/06/17 16:05 07/06/17 20:45 07/07/17 02:55 Bedside Glucose 138 mg/dl 123 mg/dl 185 mg/dl 209 mg/dl Test 07/07/17 05:32 07/07/17 07:56 White Blood Count 8.51 K/uL Red Blood Count 3.19 M/uL Hemoglobin 9.2 g/dL Hematocrit 28.9 % Mean Corpuscular Volume 90.6 fL Mean Corpuscular Hemoglobin 28.8 pg Mean Corpuscular Hemoglobin Concent 31.8 g/dl RDW Standard Deviation 74.6 fL RDW Coefficient of Variation 22.5 % Platelet Count 167 K/uL Mean Platelet Volume 10.2 fL Nucleated RBC Absolute Count (auto) 0.02 K/uL Nucleated Red Blood Cells % 0.3 % Sodium Level 137 mmol/L Potassium Level 4.3 mmol/L Chloride Level 103 mmol/L Carbon Dioxide Level 27 mmol/L Anion Gap 7.0 mmol/L Blood Urea Nitrogen 34 mg/dl Creatinine 2.95 mg/dl Est Creatinine Clear Calc Drug Dose 26.5 ml/min Estimated GFR () 25.0 Estimated GFR (Non- 21.6 BUN/Creatinine Ratio 11.6 Random Glucose 203 mg/dl Calcium Level 7.6 mg/dl Bedside Glucose 183 mg/dl Assessment & Plan Continues to have some pain involving the left hand. It might be warranted at this juncture to have Dr. Sasha Leal see him. She has seen him in the past and for continuing of care it might be warranted then for her to revisit. Otherwise I believe there is improvement of the underlying cellulitis. Blood work is acceptable
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
[2017-07-07 14:51] VITALS: BP 129/70; PULSE 70; TEMP 36.6; O2SAT 94
[2017-07-07] MEDS: TAMSULOSIN HCL 0.4 MG CAP PO SCH (20:11)
[2017-07-07] MEDS: SIMVASTATIN 20 MG TAB PO SCH (20:13)
[2017-07-07] MEDS: INSULIN GLARGINE SOLOSTAR 100 UNITS/ML 3 ML PEN SC SCH (21:16)
[2017-07-07 22:55] VITALS: BP 156/72; PULSE 83; TEMP 36.6; O2SAT 97
[2017-07-08] VITALS (21 sets, daily range): BP systolic 103–169; BP diastolic 46–86; PULSE 78–93; TEMP 36.4–36.7; O2SAT 94
[2017-07-08] MEDS: CABOZANTINIB S MALATE 60 MG PO SCH (05:08)
[2017-07-08 05:53] LABS: HEMATOCRIT 27.8 % (42-52); HEMOGLOBIN 9.1 g/dL (14.0-18.0); MEAN CELL VOLUME 89.7 fL (80-100); MEAN CORPUSCULAR HEMOGLOBIN 29.4 pg (25-34); MEAN CORPUSCULAR HGB CONC 32.7 g/dl (32-36); MEAN PLATELET VOLUME 10.3 fL (7.4-10.4); NUCLEATED RED BLOOD CELL ABS 0.04 K/uL (0-0); PLATELET COUNT 199 K/uL (130-400); RED CELL DISTRIBUTION WIDTH CV 22.9 % (11.5-14.5); RED CELL DISTRIBUTION WIDTH SD 74.4 fL (36.4-46.3); WHITE BLOOD COUNT 10.25 K/uL (4.8-10.8)
[2017-07-08] MEDS ORDERED: EPOETIN ALFA INJ 8,000 UNITS in SYRINGE 0 ML IV. SCH (06:00)
[2017-07-08] MEDS ORDERED: EPOETIN ALFA 10,000 UNITS/ML VIAL IV. ONE (06:00)
[2017-07-08] MEDS: HEPARIN SOD (PORCINE) 1000 UNIT/ML 10 ML VIAL IV SCH ×2 (06:00→07:00)
[2017-07-08] MEDS ORDERED: HEPARIN SOD (PORCINE) 1000 UNIT/ML 10 ML VIAL IV SCH (06:00)
[2017-07-08 06:21] LABS: CALCIUM 7.9 mg/dl (8.5-10.1); CREATININE 3.92 mg/dl (0.60-1.40); POTASSIUM 4.4 mmol/L (3.5-5.1)
[2017-07-08] MEDS: CALCIUM CARBONATE 500 MG CHEWABLE PO SCH ×3 (08:04→19:50)
[2017-07-08] MEDS: INSULIN ASPART 100 UNITS/ML 3 ML PEN SC SCH ×4 (08:05→21:00)
[2017-07-08] MEDS: OXYCODONE HCL IR 5 MG TAB (IMMEDIATE RELEASE) PO SCH ×3 (08:05→19:54)
[2017-07-08] MEDS: METHADONE HCL 10 MG TAB PO SCH ×3 (08:05→19:51)
[2017-07-08] MEDS: CHECK FENTANYL PATCH PLACEMENT SCH ×2 (08:06→22:32)
[2017-07-08] MEDS: BOOST GLUCOSE CONTROL PO SCH ×2 (08:06→17:00)
--- NOTE | 2017-07-08 08:06 | ORTHOPEDIC CONSULTATION ---
DATE OF CONSULTATION: 07/08/2017 CHIEF COMPLAINT: Persistent left hand pain, discomfort, swelling and redness. HISTORY OF PRESENT ILLNESS: The patient is a 61-year-old right-hand dominant male with multiple medical comorbidities whom I saw just about a month ago for some left hand cellulitis after a drill bit injury. He was treated with antibiotics and then discharged from the hospital. He said he did better for a while and then it started getting a bit worse. Symptoms kind of waxed and waned. He has been readmitted for the cellulitis. Since admission, he seems like he is doing a bit better. He says the pain and stiffness and swelling is some better, but not gone. He had a little bit of drainage from his wrist area, which looked to be mostly serous. It is more from the distal forearm area. OBJECTIVE: VITAL SIGNS: Temperature 36.7. Vital signs stable. PHYSICAL EXAMINATION: GENERAL: Physical examination reveals a pleasant, middle-aged male. He looks in reasonably good health. EXTREMITIES: Examination of the left hand reveals mild diffuse swelling of the hand. The puncture wounds that he had from the drill bit looked to be all healed. He can make probably 75% of the fist. He can flex or extend his wrist. There is a small dorsal superficial wound over his distal forearm, which is not draining anything. He is grossly neurologically intact. MRI: I did look at the MRI of his left wrist and hand. There is a little bit of some edema in his hand, but no signs of fluid accumulation, osteomyelitis or abscess or flexor tenosynovitis. LABORATORY DATA: His laboratory results reveal a white cell count of 10.25. His sed rate is 12, which is normal. C-reactive protein is elevated at 8.64, but improved from a month ago. ASSESSMENT: A 61-year-old male with left hand pain, discomfort, swelling with a history of cellulitis in the past. He has got multiple comorbidities. He has got no signs of a surgical indication, which would be a flexor tenosynovitis or an abscess. Certainly, he has some localized areas of redness of unclear significance. With a normal sed rate, I do not think there is an active infection. Certainly, this could be some form of reflex sympathetic dystrophy residue from the cellulitis or could even be some component of gout. He seems to be better since being in the hospital. Certainly, fluid accumulation may change depending on dialysis status as well. PLAN: From orthopedic standpoint, there is no surgical indication. Continue IV antibiotics as per infectious disease. We might want to try a dose of steroids and see if this helps as it may help if he has got any component of a gout or inflammatory process. No other real orthopedic recommendations. Once again, there are no surgical indications, which would be pus, fluid accumulation, or flexor tenosynovitis. Any further orthopedic questions can be directed to me at [phone].
[2017-07-08] MEDS: ASPIRIN 81 MG ECTAB PO SCH (08:07)
[2017-07-08] MEDS: LACTOBACILLUS ACIDOPHILUS (FLORANEX) TAB PO SCH ×3 (08:07→20:06)
[2017-07-08] MEDS: CALCITRIOL 0.25 MCG CAP PO SCH (08:08)
[2017-07-08] MEDS: AMLODIPINE BESYLATE 5 MG TAB PO SCH (08:44)
[2017-07-08] MEDS: FUROSEMIDE 40 MG TAB PO SCH (08:44)
[2017-07-08] MEDS: LISINOPRIL 40 MG TAB PO SCH (08:44)
[2017-07-08] MEDS: METOPROLOL TARTRATE 100 MG TAB PO SCH ×2 (08:45→19:52)
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
[2017-07-08] MEDS: SIMVASTATIN 20 MG TAB PO SCH (19:53)
[2017-07-08] MEDS: TAMSULOSIN HCL 0.4 MG CAP PO SCH (19:53)
[2017-07-08] MEDS: DAPTOmycin IV 350 MG in SYRINGE 0 ML IV SCH (20:06)
[2017-07-08] MEDS: INSULIN GLARGINE SOLOSTAR 100 UNITS/ML 3 ML PEN SC SCH (21:45)
[2017-07-08] MEDS: ERTAPENEM IV 500 MG in SODIUM CHLORIDE 0.9% 50ML 50 ML IV SCH (22:09)
[2017-07-09] VITALS: BP 144/73; PULSE 93; TEMP 37; O2SAT 94
[2017-07-09 04:00] VITALS: BP 147/74; PULSE 81; TEMP 37.4; O2SAT 90
[2017-07-09] MEDS: CABOZANTINIB S MALATE 60 MG PO SCH (05:18)
[2017-07-09 05:52] LABS: HEMATOCRIT 28.1 % (42-52); MEAN CELL VOLUME 91.2 fL (80-100); MEAN CORPUSCULAR HEMOGLOBIN 29.2 pg (25-34); MEAN PLATELET VOLUME 10.1 fL (7.4-10.4); NUCLEATED RED BLOOD CELL ABS 0.14 K/uL (0-0); PLATELET COUNT 189 K/uL (130-400); RED CELL DISTRIBUTION WIDTH SD 76.4 fL (36.4-46.3)
[2017-07-09 06:23] LABS: CALCIUM 7.2 mg/dl (8.5-10.1); CREATININE 2.8 mg/dl (0.60-1.40); POTASSIUM 3.9 mmol/L (3.5-5.1)
[2017-07-09 07:26] VITALS: BP 145/80; PULSE 69; TEMP 37; O2SAT 95
[2017-07-09] MEDS: CALCIUM CARBONATE 500 MG CHEWABLE PO SCH ×3 (07:53→17:38)
[2017-07-09] MEDS: LISINOPRIL 40 MG TAB PO SCH (07:53)
[2017-07-09] MEDS: METOPROLOL TARTRATE 100 MG TAB PO SCH ×2 (07:54→20:42)
[2017-07-09] MEDS: AMLODIPINE BESYLATE 5 MG TAB PO SCH (07:55)
[2017-07-09] MEDS: LACTOBACILLUS ACIDOPHILUS (FLORANEX) TAB PO SCH ×3 (07:55→20:42)
[2017-07-09] MEDS: BOOST GLUCOSE CONTROL PO SCH ×2 (07:56→17:35)
[2017-07-09] MEDS: ASPIRIN 81 MG ECTAB PO SCH (07:56)
[2017-07-09] MEDS: INSULIN ASPART 100 UNITS/ML 3 ML PEN SC SCH ×4 (08:01→20:38)
[2017-07-09] MEDS: OXYCODONE HCL IR 5 MG TAB (IMMEDIATE RELEASE) PO SCH ×3 (08:01→20:39)
[2017-07-09] MEDS: CHECK FENTANYL PATCH PLACEMENT SCH ×3 (08:02→23:46)
[2017-07-09] MEDS: METHADONE HCL 10 MG TAB PO SCH ×3 (08:14→20:40)
[2017-07-09] MEDS: FUROSEMIDE 40 MG TAB PO SCH (08:15)
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
[2017-07-09 15:17] VITALS: BP 143/70; PULSE 78; TEMP 36.5; O2SAT 95
[2017-07-09] MEDS ORDERED: METHYLPREDNISOLONE IV 40 MG in SYRINGE 0 ML IV STA (17:39)
[2017-07-09] MEDS: INSULIN GLARGINE SOLOSTAR 100 UNITS/ML 3 ML PEN SC SCH (20:38)
[2017-07-09] MEDS: TAMSULOSIN HCL 0.4 MG CAP PO SCH (20:42)
[2017-07-09] MEDS: SIMVASTATIN 20 MG TAB PO SCH (20:42)
[2017-07-09] MEDS: ERTAPENEM IV 500 MG in SODIUM CHLORIDE 0.9% 50ML 50 ML IV SCH (21:40)
[2017-07-09 22:34] VITALS: BP 168/78; PULSE 82; TEMP 36.7; O2SAT 96
[2017-07-09] MEDS: FENTANYL PATCH REMOVE & WASTE SCH (23:47)
[2017-07-09] MEDS: FENTANYL 25 MCG/HR TDSY TD SCH (23:47)
[2017-07-10] MEDS: CABOZANTINIB S MALATE 60 MG PO SCH (05:13)
[2017-07-10 05:32] LABS: HEMATOCRIT 27.5 % (42-52); HEMOGLOBIN 8.9 g/dL (14.0-18.0); MEAN CELL VOLUME 90.2 fL (80-100); MEAN CORPUSCULAR HEMOGLOBIN 29.2 pg (25-34); MEAN CORPUSCULAR HGB CONC 32.4 g/dl (32-36); MEAN PLATELET VOLUME 9.8 fL (7.4-10.4); NUCLEATED RED BLOOD CELL ABS 0.14 K/uL (0-0); PLATELET COUNT 181 K/uL (130-400); RED CELL DISTRIBUTION WIDTH SD 75.2 fL (36.4-46.3); WHITE BLOOD COUNT 9.17 K/uL (4.8-10.8)
[2017-07-10 05:58] LABS: CREATININE 3.94 mg/dl (0.60-1.40); POTASSIUM 3.9 mmol/L (3.5-5.1)
--- NOTE | 2017-07-10 06:26 | Rheumatology Consultation ---
Rheumatology Consultation Date of Consultation: Jul 09, 2017. Requesting Physician: Dr Hood Attending Physician: Dr Hood Reason for Consultation: Left hand pain, swelling, cellulitis History of Present Illness Mr Christy is a 61 /o male with known renal cell carcinoma, ESRD on HD who presented to [facility] with recurrent left hand cellulitis, pain, swelling. He first injured his hand several weeks ago with a drill bit and shortly afterwards developed cellulitis. He was discharged home on IV abx as per ID (receives them through a port). last week was seen as an outpatient with worsening left hand swelling, redness and pain and was sent to [facility] for admission for cellulitis. He was seen by Dr Marie and I reviewed his note - note overall improvement compared to initial visit. He is on abx again along with his chemotherapy cabometyx and pred 10mg BID. He reports that this episode is better than the last but the left hand is still very uncomfortable. 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 Pain can be across the MCPs, some PIPs and the wrist. He has not had anything like this before. He has a history of lumbar DDD s/p fusion, left ankle fusion, knee arthroscopic surgery, left trigger finger and carpal tunnel surgery. He mentions prior to these admissions he would get hand pain from time to time with activities. He is on chronic narcotics for pain control related to his back. he is not complaining of any pain elsewhere outside of his left hand. feels the narcotics do help. there is less redness and swelling as noted by the marker desai on his hands. some soft tissue edema around his left elbow. he denies any fevers or chills. He is on ialysis and has a left arm fistula as well. He does have a small wound break down on the left forearm that is covered with a bandage. MRI of the hand showed soft tissue edema and mild edema of the intrinsic muscle of the hands suggestive of myositis along with cellulitis. there was not evidence of synovitis, tenosynovitis or osteomyelitis. Past Medical/Surgical History Medical History: chemotherapy, chronic back pain, COPD, renal disease (on dialysis), other (lumbar ddd, renal cell cancer) Surgical History: AV fistula placement (left arm for dialysis), orthopedic surgery (lumbar spinal fusion, left trigger finger and carpal tunnel, left ankle fusion, knee scope) Family History non contributory Social History Smoking Status: Never Smoker History of Alcohol Use: No Drug Use: none Marital Status: single Housing Status: lives alone Occupation Status: disabled Review of Systems Constitutional: No fever, No chills Musculoskeletal: + see HPI Skin: + see HPI All Other Systems: Reviewed and Negative Allergies Coded Allergies: Iodinated Diagnostic Agents (Verified Allergy, Unknown, oil based, severe headaches, 06/20/17) EVENT OCCURED IN 1971, PT STATES HE HAS HAD 3 DIFFERENT WATER BASED IVP DYES WITH NO ISSUE Medications Current Inpatient Medications Medications (Trade) Dose Ordered Sig/Edward Route Start Time Stop Time Status Last Admin Dose Admin Acetaminophen (Tylenol Tab) 650 mg Q4H PRN PO 07/05/17 21:45 08/04/17 21:44 Ertapenem 500 mg/ Sodium Chloride 55 ml @ 120 mls/hr Q24H IV 07/05/17 23:00 08/16/17 22:59 07/08/17 22:09 120 MLS/HR Ertapenem (Consult) 1 ea UD PRN N/A 07/05/17 22:00 08/04/17 21:59 Daptomycin (Consult) 1 ea UD PRN N/A 07/05/17 22:00 08/04/17 21:59 Daptomycin 350 mg/ Syringe 7 ml @ 3.5 mls/min Q48H IV 07/06/17 20:00 08/17/17 19:59 07/08/17 20:06 3.5 MLS/MIN Amlodipine Besylate (Norvasc Tab) 10 mg QAM PO 07/06/17 09:00 08/05/17 08:59 07/09/17 07:55 10 MG Aspirin (Ecotrin Tab) 81 mg QAM PO 07/06/17 09:00 08/05/17 08:59 07/09/17 07:56 81 MG Calcitriol (Rocaltrol Cap) 0.25 mcg Q2D PO 07/06/17 09:00 08/05/17 08:59 07/08/17 08:08 0.25 MCG Furosemide (Lasix Tab) 40 mg QAM PO 07/06/17 09:00 08/05/17 08:59 07/09/17 08:15 40 MG Hydralazine HCl (Apresoline Tab) 100 mg TID PO 07/06/17 09:00 08/05/17 08:59 07/09/17 16:14 100 MG Lactobacillus Acidophilus (Floranex Tab) 2 tab TID PO 07/06/17 09:00 08/05/17 08:59 07/09/17 16:14 2 TAB Lisinopril (Zestril Tab) 40 mg DAILY PO 07/06/17 09:00 08/05/17 08:59 07/09/17 07:53 40 MG Methadone HCl (Dolophine Tab) 10 mg TID PO 07/06/17 09:00 07/20/17 08:59 07/09/17 16:13 10 MG Metoprolol Tartrate (Lopressor Tab) 150 mg BID PO 07/06/17 09:00 08/05/17 08:59 07/09/17 07:54 150 MG Polyethylene (Miralax Powder Packet) 17 gm DAILY PRN PO 07/06/17 02:30 08/05/17 02:29 07/09/17 08:14 17 GM Prednisone (PredniSONE TAB) 10 mg BID PO 07/06/17 09:00 08/05/17 08:59 07/09/17 07:53 10 MG Simvastatin (Zocor Tab) 20 mg QPM PO 07/06/17 21:00 08/05/17 20:59 07/08/17 19:53 20 MG Tamsulosin HCl (Flomax Cap) 0.4 mg HS PO 07/06/17 21:00 08/05/17 20:59 07/08/17 19:53 0.4 MG Cabozantinib (Cabometyx) 60 mg DAILY@0500 PO 07/06/17 05:00 08/05/17 04:59 07/09/17 05:18 60 MG Oxycodone HCl (Roxicodone Immediate Rel Tab) 10 mg TID PO 07/06/17 09:00 08/05/17 08:59 07/09/17 16:14 10 MG Insulin Aspart (novoLOG ASPART) SLIDING SCALE G... ACHS SC 07/06/17 07:00 08/05/17 06:59 07/07/17 21:16 3 UNITS Miscellaneous Information (Check Fentanyl Patch Placement) 1 ea QS N/A 07/06/17 08:00 08/05/17 07:59 07/09/17 16:15 1 EA Glucose (Glucose 40% Gel) 15-30 GRAMS 15 GRAMS... UD PRN PO 07/06/17 04:15 08/05/17 04:14 Glucose (Glucose Chew Tab) 4-8 Tablets 4 Tabl... UD PRN PO 07/06/17 04:15 08/05/17 04:14 Dextrose (Dextrose 50% 50ML Syringe) 25-50ML OF 50% DW IV FOR... UD PRN IV 07/06/17 04:15 08/05/17 04:14 07/06/17 05:40 25 ML Glucagon (Glucagon Inj) 1 mg UD PRN SQ 07/06/17 04:15 08/05/17 04:14 Insulin Glargine (Lantus Solostar Pen) 7 units HS SC 07/06/17 21:00 08/05/17 20:59 07/08/17 21:45 7 UNITS Enteral Nutritional Formula (Boost Glucose Control) 1 can BIDM PO 07/06/17 16:45 08/05/17 16:44 07/09/17 07:56 1 CAN Miscellaneous (Fentanyl Patch Remove & Waste) 1 ea Q3D N/A 07/10/17 01:00 08/09/17 00:59 Fentanyl (Duragesic Patch) 25 mcg Q3D TD 07/07/17 01:00 07/21/17 00:59 07/07/17 01:16 25 MCG Heparin Sodium (Porcine) (Heparin 100 Unit/ml 5ml Flush) 5 ml PRN PRN IV 07/07/17 02:45 08/06/17 02:44 07/09/17 05:23 5 ML Calcium Carbonate (Tums Chew Tab) 500 mg TIDM PO 07/07/17 17:00 08/05/17 08:59 07/09/17 12:19 500 MG Physical Exam Date Time Temp Pulse Resp B/P (MAP) Pulse Ox O2 Delivery O2 Flow Rate FiO2 07/09/17 15: 36.5 78 18 143/70 (94) 95 Nasal Cannula 2.0 07/09/17 08:00 Nasal Cannula 2.5 07/09/17 07:26 37.0 69 18 145/80 (101) 95 2.0 07/09/17 04:00 37.4 81 20 147/74 (98) 90 Nasal Cannula 2.0 07/09/17 00:00 37.0 93 20 144/73 (96) 94 Nasal Cannula 2.0 07/09/17 00:00 94 Nasal Cannula 2.0 07/08/17 20:00 94 Nasal Cannula 2.0 07/08/17 18:45 36.4 87 150/86 (107) 07/08/17 18:45 85 126/76 07/08/17 18:30 85 105/46 07/08/17 18:15 85 103/80 07/08/17 18:00 85 115/78 07/08/17 17:45 84 110/79 07/08/17 17:30 85 108/86 07/08/17 17:15 80 148/84 07/08/17 17:00 80 142/73 07/08/17 16:45 85 111/86 General Appearance: WD/WN, no apparent distress Eyes: bilateral eyes normal inspection, bilateral eyes EOMI ENT: hearing grossly normal, pharynx normal Respiratory: chest non-tender, no respiratory distress, + pertinent finding ( coarse breath sounds at the bases) Cardiovascular: regular rate, rhythm, no gallop, no murmur Abdomen: normal bowel sounds, non tender, soft Musculoskeletal: soft tissue swelling of the left hand noted with mil erythema no synovitis noted tender at the MCPs2-5, left 5th PIP, left wrist 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, right elementary math tutor 5/5 soft tissue edema to the left elbow Neurologic/Psychiatric: alert, normal mood/affect, oriented x 3 Skin: + pertinent finding (mild erythema to the left hand fingers, ) Laboratory Results Last 24 Hours Test 07/08/17 19:23 07/08/17 20:06 07/09/17 05:25 07/09/17 07:39 Bedside Glucose 87 mg/dl 104 mg/dl 151 mg/dl White Blood Count 10.20 K/uL Red Blood Count 3.08 M/uL Hemoglobin 9.0 g/dL Hematocrit 28.1 % Mean Corpuscular Volume 91.2 fL Mean Corpuscular Hemoglobin 29.2 pg Mean Corpuscular Hemoglobin Concent 32.0 g/dl RDW Standard Deviation 76.4 fL RDW Coefficient of Variation 23.0 % Platelet Count 189 K/uL Mean Platelet Volume 10.1 fL Nucleated RBC Absolute Count (auto) 0.14 K/uL Nucleated Red Blood Cells % 1.4 % Sodium Level 137 mmol/L Potassium Level 3.9 mmol/L Chloride Level 104 mmol/L Carbon Dioxide Level 28 mmol/L Anion Gap 5.0 mmol/L Blood Urea Nitrogen 33 mg/dl Creatinine 2.80 mg/dl Est Creatinine Clear Calc Drug Dose 27.9 ml/min Estimated GFR () 26.6 Estimated GFR (Non- 23.0 BUN/Creatinine Ratio 11.9 Random Glucose 147 mg/dl Calcium Level 7.2 mg/dl Test 07/09/17 11:52 Bedside Glucose 174 mg/dl Assessment & Plan Assessment & Plan: Assessment: Adri is a 61 y/o male who was re-admitted with left hand cellulitis and pain. MRI imaging not consistent with an inflammatory arthritis or tenosynovitis. He did have findings suggestive of cellulitis with secondary myositis of the intrinsic hand muscles. He is currently continued on his chemotherapy with pred 10mg BID and abx. Likely has worsening arthritis pains from recurrent infections to the hand leading to mild myositis as well. Another consideration would be possibly microcrystalline disease such as gout given recurrence but would think less likely given baseline home use of high dose steroids. Inflammatory arthritis such as RA or drug induced from chemotherapy also unlikely. I would suggest giving a dose of IV solumedrol 40mg x 1 and then continuing home dosing of prednisone to see if that helps. His symptoms will likely recover in time as long as the infection is controlled. Also continue with pain control with narcotics. if requires again would strongly consider microcrystalline disease. Case was discussed with Dr Hood. Plan: 1. suggest 1 dose of IV solumedrol 40mg today 2. continue home dose of steroids as per Dr Ferreira 3. suggest checking ck, uric acid level 4. contact with any issues or if arthritis flares again 5. Thank you for the consult and involving me in this patient's care 6. I will arrange out patient rheumatology follow up in the next few weeks
[2017-07-10] MEDS: INSULIN ASPART 100 UNITS/ML 3 ML PEN SC SCH ×4 (06:30→21:18)
[2017-07-10 07:33] VITALS: BP 130/71; PULSE 80; TEMP 36.6; O2SAT 96
[2017-07-10 08:00] VITALS: O2SAT 96
[2017-07-10] MEDS: CHECK FENTANYL PATCH PLACEMENT SCH ×3 (08:59→23:34)
[2017-07-10] MEDS: CALCITRIOL 0.25 MCG CAP PO SCH (08:59)
[2017-07-10] MEDS: AMLODIPINE BESYLATE 5 MG TAB PO SCH (09:00)
[2017-07-10] MEDS: METHADONE HCL 10 MG TAB PO SCH ×3 (09:00→21:08)
[2017-07-10] MEDS: OXYCODONE HCL IR 5 MG TAB (IMMEDIATE RELEASE) PO SCH (09:00)
[2017-07-10] MEDS: LACTOBACILLUS ACIDOPHILUS (FLORANEX) TAB PO SCH ×3 (09:01→21:08)
[2017-07-10] MEDS: ASPIRIN 81 MG ECTAB PO SCH (09:01)
[2017-07-10] MEDS: BOOST GLUCOSE CONTROL PO SCH ×2 (09:01→17:09)
[2017-07-10] MEDS: LISINOPRIL 40 MG TAB PO SCH (09:02)
[2017-07-10] MEDS: FUROSEMIDE 40 MG TAB PO SCH (09:02)
[2017-07-10] MEDS: CALCIUM CARBONATE 500 MG CHEWABLE PO SCH ×3 (09:03→17:08)
[2017-07-10] MEDS: METOPROLOL TARTRATE 100 MG TAB PO SCH ×2 (09:03→21:09)
--- NOTE | 2017-07-10 11:15 | Palliative Care Consultation ---
Consultation Date of Consultation: Jul 10, 2017. Requesting Physician: -DR Mabry Attending Physician: Dr Mabry Reason for Consultation: Pain Management - pt is seen by me in outpt Palliative Clinic History of Present Illness Pt is a 61 yo male with Metastatic renal Cell Carcinoma, CKD - started dialysis on 06/12/2017, DM, HLD, anemia , BPH, anxiety and depression who was admitted from 06/20 - 06/24 for LUE cellulitis - pt re- admitted on 07/05 for same cellulitis - not improving. Pt is seen for pain related to his RCC - I last saw him in clinic on 06/20. His cellulitis at that time was not improving on IV Vanc and IV Rocephin . He was then treated with Invaz and Daptomycin. He was continued at home on IV Daptomycin. On this admission he is back on IV Invaz and IV Daptomycin. Pt has been doing well with methadone for pain. I increaed his methadone to 20 mg BID on 06/20 if he was not going to be placed on an antifungal. Methadone has several possible drun interactions , but only a few ( < 30 ) require methadone dose adjustments. If he is to be going home soon - he can resume his methadone at 20 mg BID. He has been requiring less oxycodone for his pain. He had a dull pain related to his chronic back issues that has been 0/ 10 for several months. He continues to have a sharp, radicular pain , related to his RCC that is better controlled on his methadone. Pt has been able to be more alert with less oxycodone and has been able to be much more active at home. He is now going out, working on projects with his son, when prior he mainly just sat in his chair at home, unable to do much , due to pain. He continues on his Fentanyl patch for now as I titrate his methadone. Pt rates his pain on exam this am as a 2/10 at rest. He has sharp pain with walking for which he takes prn oxy - he averages about 4 tabs of 10 mg a day. He is now having SOB with exertion and desats to the 80's - he is now on O2. Past Medical/Surgical History Medical History: Metastatic Renal Cell Carcinoma, CKD - now on dialysis, DM, HLD, chronic anemia , BPH, anxiety and depression. Surgical History: L nephrectomy, Mediport Family History + for cervical, prostate and pancreatic cancer, + DM, HTN, PR, heart disease Social History Smoking Status: Never Smoker History of Alcohol Use: No Drug Use: none Marital Status: single Housing Status: lives alone Occupation Status: disabled Has a close friend who drives him to appt. Review of Systems Constitutional: No fever, No chills Eyes: No eye pain ENT: No hearing loss Respiratory: + shortness of breath, No dyspnea at rest Cardiac: No chest pain Abdomen: No constipation Male : No dysuria Neurologic: + weakness Psychiatric: No insomnia Endo: + fatigue Allergies Coded Allergies: Iodinated Diagnostic Agents (Verified Allergy, Unknown, oil based, severe headaches, 06/20/17) EVENT OCCURED IN 1971, PT STATES HE HAS HAD 3 DIFFERENT WATER BASED IVP DYES WITH NO ISSUE Medications Current Inpatient Medications Medications (Trade) Dose Ordered Sig/Edward Route Start Time Stop Time Status Last Admin Dose Admin Acetaminophen (Tylenol Tab) 650 mg Q4H PRN PO 07/05/17 21:45 08/04/17 21:44 Ertapenem 500 mg/ Sodium Chloride 55 ml @ 120 mls/hr Q24H IV 07/05/17 23:00 08/16/17 22:59 07/09/17 21:40 120 MLS/HR Ertapenem (Consult) 1 ea UD PRN N/A 07/05/17 22:00 08/04/17 21:59 Daptomycin (Consult) 1 ea UD PRN N/A 07/05/17 22:00 08/04/17 21:59 Daptomycin 350 mg/ Syringe 7 ml @ 3.5 mls/min Q48H IV 07/06/17 20:00 08/17/17 19:59 07/08/17 20:06 3.5 MLS/MIN Amlodipine Besylate (Norvasc Tab) 10 mg QAM PO 07/06/17 09:00 08/05/17 08:59 07/10/17 09:00 10 MG Aspirin (Ecotrin Tab) 81 mg QAM PO 07/06/17 09:00 08/05/17 08:59 07/10/17 09:01 81 MG Calcitriol (Rocaltrol Cap) 0.25 mcg Q2D PO 07/06/17 09:00 08/05/17 08:59 07/10/17 08:59 0.25 MCG Furosemide (Lasix Tab) 40 mg QAM PO 07/06/17 09:00 08/05/17 08:59 07/10/17 09:02 40 MG Hydralazine HCl (Apresoline Tab) 100 mg TID PO 07/06/17 09:00 08/05/17 08:59 07/10/17 09:02 100 MG Lactobacillus Acidophilus (Floranex Tab) 2 tab TID PO 07/06/17 09:00 08/05/17 08:59 07/10/17 09:01 2 TAB Lisinopril (Zestril Tab) 40 mg DAILY PO 07/06/17 09:00 08/05/17 08:59 07/10/17 09:02 40 MG Methadone HCl (Dolophine Tab) 10 mg TID PO 07/06/17 09:00 07/20/17 08:59 07/10/17 09:00 10 MG Metoprolol Tartrate (Lopressor Tab) 150 mg BID PO 07/06/17 09:00 08/05/17 08:59 07/10/17 09:03 150 MG Polyethylene (Miralax Powder Packet) 17 gm DAILY PRN PO 07/06/17 02:30 08/05/17 02:29 07/09/17 08:14 17 GM Prednisone (PredniSONE TAB) 10 mg BID PO 07/06/17 09:00 08/05/17 08:59 07/10/17 09:03 10 MG Simvastatin (Zocor Tab) 20 mg QPM PO 07/06/17 21:00 08/05/17 20:59 07/09/17 20:42 20 MG Tamsulosin HCl (Flomax Cap) 0.4 mg HS PO 07/06/17 21:00 08/05/17 20:59 07/09/17 20:42 0.4 MG Cabozantinib (Cabometyx) 60 mg DAILY@0500 PO 07/06/17 05:00 08/05/17 04:59 07/10/17 05:13 60 MG Oxycodone HCl (Roxicodone Immediate Rel Tab) 10 mg TID PO 07/06/17 09:00 08/05/17 08:59 07/10/17 09:00 10 MG Insulin Aspart (novoLOG ASPART) SLIDING SCALE G... ACHS SC 07/06/17 07:00 08/05/17 06:59 07/09/17 20:38 1 UNITS Miscellaneous Information (Check Fentanyl Patch Placement) 1 ea QS N/A 07/06/17 08:00 08/05/17 07:59 07/10/17 08:59 1 EA Glucose (Glucose 40% Gel) 15-30 GRAMS 15 GRAMS... UD PRN PO 07/06/17 04:15 08/05/17 04:14 Glucose (Glucose Chew Tab) 4-8 Tablets 4 Tabl... UD PRN PO 07/06/17 04:15 08/05/17 04:14 Dextrose (Dextrose 50% 50ML Syringe) 25-50ML OF 50% DW IV FOR... UD PRN IV 07/06/17 04:15 08/05/17 04:14 07/06/17 05:40 25 ML Glucagon (Glucagon Inj) 1 mg UD PRN SQ 07/06/17 04:15 08/05/17 04:14 Insulin Glargine (Lantus Solostar Pen) 7 units HS SC 07/06/17 21:00 08/05/17 20:59 07/09/17 20:38 7 UNITS Enteral Nutritional Formula (Boost Glucose Control) 1 can BIDM PO 07/06/17 16:45 08/05/17 16:44 07/10/17 09:01 1 CAN Miscellaneous (Fentanyl Patch Remove & Waste) 1 ea Q3D N/A 07/10/17 01:00 08/09/17 00:59 07/09/17 23:47 1 EA Fentanyl (Duragesic Patch) 25 mcg Q3D TD 07/07/17 01:00 07/21/17 00:59 07/09/17 23:47 25 MCG Heparin Sodium (Porcine) (Heparin 100 Unit/ml 5ml Flush) 5 ml PRN PRN IV 07/07/17 02:45 08/06/17 02:44 07/10/17 05:19 5 ML Calcium Carbonate (Tums Chew Tab) 500 mg TIDM PO 07/07/17 17:00 08/05/17 08:59 07/10/17 09:03 500 MG Physical Exam Date Time Temp Pulse Resp B/P (MAP) Pulse Ox O2 Delivery O2 Flow Rate FiO2 12/18/17 08:00 96 Nasal Cannula 2.0 07/10/17 07:33 36.6 80 20 130/71 (90) 96 Nasal Cannula 2.0 07/10/17 00:00 Nasal Cannula 2.0 07/09/17 22:34 36.7 82 19 168/78 (108) 96 Nasal Cannula 2.0 07/09/17 20:00 Nasal Cannula 2.0 07/09/17 16:00 Nasal Cannula 2.0 07/09/17 15:17 36.5 78 18 143/70 (94) 95 Nasal Cannula 2.0 General Appearance: no apparent distress Eyes: EOMI ENT: hearing grossly normal Neck: supple Respiratory: lungs clear Cardiovascular: regular rate, rhythm, + pertinent finding (no pedal edema) Abdomen: normal bowel sounds, non tender Musculoskeletal: pertinent finding (weakness, uses a cane at home) Neurologic/Psychiatric: + motor weakness, + pertinent finding (gait disturbance - uses cane) Skin: warm/dry Laboratory Results Last 24 Hours Test 07/09/17 11:52 07/09/17 16:48 07/09/17 20:03 07/10/17 05:20 Bedside Glucose 174 mg/dl 186 mg/dl 189 mg/dl White Blood Count 9.17 K/uL Red Blood Count 3.05 M/uL Hemoglobin 8.9 g/dL Hematocrit 27.5 % Mean Corpuscular Volume 90.2 fL Mean Corpuscular Hemoglobin 29.2 pg Mean Corpuscular Hemoglobin Concent 32.4 g/dl RDW Standard Deviation 75.2 fL RDW Coefficient of Variation 23.0 % Platelet Count 181 K/uL Mean Platelet Volume 9.8 fL Nucleated RBC Absolute Count (auto) 0.14 K/uL Nucleated Red Blood Cells % 1.5 % Sodium Level 136 mmol/L Potassium Level 3.9 mmol/L Chloride Level 104 mmol/L Carbon Dioxide Level 28 mmol/L Anion Gap 4.0 mmol/L Blood Urea Nitrogen 51 mg/dl Creatinine 3.94 mg/dl Est Creatinine Clear Calc Drug Dose 19.8 ml/min Estimated GFR () 17.6 Estimated GFR (Non- 15.2 BUN/Creatinine Ratio 13.0 Random Glucose 186 mg/dl Calcium Level 8.0 mg/dl Test 07/10/17 07:48 Bedside Glucose 176 mg/dl Assessment & Plan Palliative Performance Scale: 50 % (1) Pain due to neoplasm Status: Chronic Assessment & Plan: Improving with titration of methaodne - pt increased to 20 mg BID on 06/20 Pt should not have IR oxy scheduled but Q 4 hours prn - pt very careful with frequency and usually uses it prior to activity (2) Cellulitis of left hand Status: Acute Assessment & Plan: MUch improved from 06/20 - continue IV antibiotics - same extremity as his fistula (3) ESRD (end stage renal disease) on dialysis Status: Acute Assessment & Plan: Started dialysis on 06/12 (4) Hypoxemia requiring supplemental oxygen Status: Acute Assessment & Plan: New problem - pt due for f/u CT per Hem/Onc (5) High risk medication use Status: Acute Assessment & Plan: Pt started on methadone as outpt on 04/21 - has been followed monthly in Palliative Clinic - methadone titrated - last increase was on 06/20 - to 20 mg BID, with `10 mg oxycodone Q 4 hours prn - averages 4 tabs a day
--- NOTE | 2017-07-10 12:16 | Nephrology Progress Note ---
Nephrology Progress Note Date of Service Jul 10, 2017. Chief Complaint ESRD Roland Causey was seen and evaluated in his hospital room this morning. He denies fevers or chills. Pain control improved. Hand swelling improving. He is breathing comfortably. He reports improving strength with physical therapy. Review of Systems A complete review of systems was performed. Pertinent positives are noted above. All other systems are negative. Vital Signs Last 8 Hrs Date Time Temp Pulse Resp B/P (MAP) Pulse Ox O2 Delivery O2 Flow Rate FiO2 07/10/17 08:00 96 Nasal Cannula 2.0 07/10/17 07:33 36.6 80 20 130/71 (90) 96 Nasal Cannula 2.0 Last Recorded Weight Weight (Kilograms): 80.100 Physical Exam General Appearance: WD/WN, no apparent distress Head: normocephalic, atraumatic Eyes: normal inspection, sclerae normal ENT: normal ENT inspection, pharynx normal Neck: supple, no JVD Respiratory/Chest: lungs clear, no respiratory distress, no accessory muscle use Cardiovascular: regular rate, rhythm, no murmur Abdomen/GI: non tender, soft Extremities/Musculoskelatal: normal inspection, no pedal edema, + pertinent finding (AVF with thrill and bruit, improving hand edema) Neurologic/Psych: alert, normal mood/affect Family History Cervical cancer Diabetes mellitus Heart disease Hypertension Myocardial infarction Pancreatic cancer Prostate cancer Negative for CKD/ESRD Social History Smokeless Tobacco Use: No Alcohol Use: none Drug Use: none Marital Status: single Housing Status: lives alone Occupation: disabled Single, retired. Formerly worked for [employer]. Never a smoker. Laboratory Results Past 24 Hours 07/10/17 05:20 07/10/17 05:20 Test 07/09/17 16:48 07/09/17 20:03 07/10/17 05:20 07/10/17 07:48 Bedside Glucose 186 mg/dl (70-99) 189 mg/dl (70-99) 176 mg/dl (70-99) Red Blood Count 3.05 M/uL (4.7-6.1) Mean Corpuscular Volume 90.2 fL (80-100) Mean Corpuscular Hemoglobin 29.2 pg (25-34) Mean Corpuscular Hemoglobin Concent 32.4 g/dl (32-36) RDW Standard Deviation 75.2 fL (36.4-46.3) RDW Coefficient of Variation 23.0 % (11.5-14.5) Mean Platelet Volume 9.8 fL (7.4-10.4) Nucleated RBC Absolute Count (auto) 0.14 K/uL (0-0) Nucleated Red Blood Cells % 1.5 % Anion Gap 4.0 mmol/L (3-11) Est Creatinine Clear Calc Drug Dose 19.8 ml/min Estimated GFR () 17.6 Estimated GFR (Non- 15.2 BUN/Creatinine Ratio 13.0 (10-20) Calcium Level 8.0 mg/dl (8.5-10.1) Test 07/10/17 11:29 Bedside Glucose 164 mg/dl (70-99) Allergies Coded Allergies: Iodinated Diagnostic Agents (Verified Allergy, Unknown, oil based, severe headaches, 06/20/17) EVENT OCCURED IN 1971, PT STATES HE HAS HAD 3 DIFFERENT WATER BASED IVP DYES WITH NO ISSUE Medications Current Inpatient Medications Medications (Trade) Dose Ordered Sig/Edward Route Start Time Stop Time Status Last Admin Dose Admin Acetaminophen (Tylenol Tab) 650 mg Q4H PRN PO 07/05/17 21:45 08/04/17 21:44 Ertapenem 500 mg/ Sodium Chloride 55 ml @ 120 mls/hr Q24H IV 07/05/17 23:00 08/16/17 22:59 07/09/17 21:40 120 MLS/HR Ertapenem (Consult) 1 ea UD PRN N/A 07/05/17 22:00 08/04/17 21:59 Daptomycin (Consult) 1 ea UD PRN N/A 07/05/17 22:00 08/04/17 21:59 Daptomycin 350 mg/ Syringe 7 ml @ 3.5 mls/min Q48H IV 07/06/17 20:00 08/17/17 19:59 07/08/17 20:06 3.5 MLS/MIN Amlodipine Besylate (Norvasc Tab) 10 mg QAM PO 07/06/17 09:00 08/05/17 08:59 07/10/17 09:00 10 MG Aspirin (Ecotrin Tab) 81 mg QAM PO 07/06/17 09:00 08/05/17 08:59 07/10/17 09:01 81 MG Calcitriol (Rocaltrol Cap) 0.25 mcg Q2D PO 07/06/17 09:00 08/05/17 08:59 07/10/17 08:59 0.25 MCG Furosemide (Lasix Tab) 40 mg QAM PO 07/06/17 09:00 08/05/17 08:59 07/10/17 09:02 40 MG Hydralazine HCl (Apresoline Tab) 100 mg TID PO 07/06/17 09:00 08/05/17 08:59 07/10/17 09:02 100 MG Lactobacillus Acidophilus (Floranex Tab) 2 tab TID PO 07/06/17 09:00 08/05/17 08:59 07/10/17 09:01 2 TAB Lisinopril (Zestril Tab) 40 mg DAILY PO 07/06/17 09:00 08/05/17 08:59 07/10/17 09:02 40 MG Methadone HCl (Dolophine Tab) 10 mg TID PO 07/06/17 09:00 07/20/17 08:59 07/10/17 09:00 10 MG Metoprolol Tartrate (Lopressor Tab) 150 mg BID PO 07/06/17 09:00 08/05/17 08:59 07/10/17 09:03 150 MG Polyethylene (Miralax Powder Packet) 17 gm DAILY PRN PO 07/06/17 02:30 08/05/17 02:29 07/09/17 08:14 17 GM Prednisone (PredniSONE TAB) 10 mg BID PO 07/06/17 09:00 08/05/17 08:59 07/10/17 09:03 10 MG Simvastatin (Zocor Tab) 20 mg QPM PO 07/06/17 21:00 08/05/17 20:59 07/09/17 20:42 20 MG Tamsulosin HCl (Flomax Cap) 0.4 mg HS PO 07/06/17 21:00 08/05/17 20:59 07/09/17 20:42 0.4 MG Cabozantinib (Cabometyx) 60 mg DAILY@0500 PO 07/06/17 05:00 08/05/17 04:59 07/10/17 05:13 60 MG Oxycodone HCl (Roxicodone Immediate Rel Tab) 10 mg TID PO 07/06/17 09:00 08/05/17 08:59 07/10/17 09:00 10 MG Insulin Aspart (novoLOG ASPART) SLIDING SCALE G... ACHS SC 07/06/17 07:00 08/05/17 06:59 07/09/17 20:38 1 UNITS Miscellaneous Information (Check Fentanyl Patch Placement) 1 ea QS N/A 07/06/17 08:00 08/05/17 07:59 07/10/17 08:59 1 EA Glucose (Glucose 40% Gel) 15-30 GRAMS 15 GRAMS... UD PRN PO 07/06/17 04:15 08/05/17 04:14 Glucose (Glucose Chew Tab) 4-8 Tablets 4 Tabl... UD PRN PO 07/06/17 04:15 08/05/17 04:14 Dextrose (Dextrose 50% 50ML Syringe) 25-50ML OF 50% DW IV FOR... UD PRN IV 07/06/17 04:15 08/05/17 04:14 07/06/17 05:40 25 ML Glucagon (Glucagon Inj) 1 mg UD PRN SQ 07/06/17 04:15 08/05/17 04:14 Insulin Glargine (Lantus Solostar Pen) 7 units HS SC 07/06/17 21:00 08/05/17 20:59 07/09/17 20:38 7 UNITS Enteral Nutritional Formula (Boost Glucose Control) 1 can BIDM PO 07/06/17 16:45 08/05/17 16:44 07/10/17 09:01 1 CAN Miscellaneous (Fentanyl Patch Remove & Waste) 1 ea Q3D N/A 07/10/17 01:00 08/09/17 00:59 07/09/17 23:47 1 EA Fentanyl (Duragesic Patch) 25 mcg Q3D TD 07/07/17 01:00 07/21/17 00:59 07/09/17 23:47 25 MCG Heparin Sodium (Porcine) (Heparin 100 Unit/ml 5ml Flush) 5 ml PRN PRN IV 07/07/17 02:45 08/06/17 02:44 07/10/17 05:19 5 ML Calcium Carbonate (Tums Chew Tab) 500 mg TIDM PO 07/07/17 17:00 08/05/17 08:59 07/10/17 09:03 500 MG Impression (1) Cellulitis of left hand (2) ESRD (end stage renal disease) on dialysis (3) Renal cell carcinoma (4) Anemia (5) Diabetes type 2, controlled Recommendations END STAGE RENAL DISEASE: -- Volume status and electrolyte balance are acceptable. No acute indication for HD today. Will plan next HD for tomorrow ANEMIA: -- Hgb stable. IDALIA administered w/ HD Monday. Will monitor H&H HYPERTENSION: -- BP has improved following UF on HD -- Patient is on Lisinopril, Hydralazine, Amlodipine and Furosemide RENAL CELL CA: -- On Cabozantinib as per Oncology CKD-BMD: -- Continue oral Calcitriol therapy -- Continue CaCO3 500 mg po w/ meals ID: -- On IV Ertapenem and Daptomycin as per ID gis consultant OTHER: -- Physical therapy has been consulted for strengthening exercises and ambulation
[2017-07-10 14:46] VITALS: BP 130/69; PULSE 82; TEMP 36.2; O2SAT 98
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
[2017-07-10] MEDS: SIMVASTATIN 20 MG TAB PO SCH (21:08)
[2017-07-10] MEDS: TAMSULOSIN HCL 0.4 MG CAP PO SCH (21:10)
[2017-07-10] MEDS: INSULIN GLARGINE SOLOSTAR 100 UNITS/ML 3 ML PEN SC SCH (21:20)
[2017-07-10] MEDS: DAPTOmycin IV 350 MG in SYRINGE 0 ML IV SCH (21:21)
[2017-07-10] MEDS ORDERED: ONDANSETRON INJ 2 MG/ML 2 ML VIAL ONE (21:38)
[2017-07-10] MEDS ORDERED: NURSING VERBAL MED ORDER ONE (21:45)
[2017-07-10] MEDS: ERTAPENEM IV 500 MG in SODIUM CHLORIDE 0.9% 50ML 50 ML IV SCH (23:33)
[2017-07-10 23:41] VITALS: BP 133/68; PULSE 85; TEMP 36.7; O2SAT 94
[2017-07-10] MEDS: OXYCODONE HCL IR 5 MG TAB (IMMEDIATE RELEASE) PO PRN (23:44)
[2017-07-11] VITALS (24 sets, daily range): BP systolic 99–149; BP diastolic 42–87; PULSE 67–114; TEMP 36.2–38.7; O2SAT 93–98
[2017-07-11] MEDS: CALCIUM CARBONATE 500 MG CHEWABLE PO SCH ×4 (02:54→17:00)
[2017-07-11] MEDS ORDERED: ONDANSETRON INJ 2 MG/ML 2 ML VIAL ONE (02:55)
[2017-07-11] MEDS: CABOZANTINIB S MALATE 60 MG PO SCH (05:00)
[2017-07-11 05:30] LABS: MEAN CELL VOLUME 90.3 fL (80-100); MEAN CORPUSCULAR HGB CONC 32.1 g/dl (32-36); MEAN PLATELET VOLUME 9.8 fL (7.4-10.4); NUCLEATED RED BLOOD CELL ABS 0.24 K/uL (0-0); PLATELET COUNT 213 K/uL (130-400); RED CELL DISTRIBUTION WIDTH CV 22.9 % (11.5-14.5); RED CELL DISTRIBUTION WIDTH SD 73.7 fL (36.4-46.3); WHITE BLOOD COUNT 10.52 K/uL (4.8-10.8)
[2017-07-11 06:20] LABS: CALCIUM 8.5 mg/dl (8.5-10.1); CREATININE 4.73 mg/dl (0.60-1.40); POTASSIUM 3.9 mmol/L (3.5-5.1)
[2017-07-11] MEDS: METHADONE HCL 10 MG TAB PO SCH ×4 (08:00→21:20)
[2017-07-11] MEDS: INSULIN ASPART 100 UNITS/ML 3 ML PEN SC SCH ×4 (09:09→21:00)
[2017-07-11] MEDS: CHECK FENTANYL PATCH PLACEMENT SCH ×3 (09:10→23:40)
[2017-07-11] MEDS: BOOST GLUCOSE CONTROL PO SCH ×2 (09:10→17:00)
[2017-07-11] MEDS: LACTOBACILLUS ACIDOPHILUS (FLORANEX) TAB PO SCH ×3 (09:10→20:00)
[2017-07-11] MEDS ORDERED: ONDANSETRON 4 MG TAB PO PRN (10:15)
--- NOTE | 2017-07-11 10:31 | Nephrology Progress Note ---
Nephrology Progress Note Date of Service Jul 11, 2017. Chief Complaint ESRD Subjective Padilla was seen and evaluated today during hemodialysis. He was tolerating the procedure well. Qb appropriate. BP acceptable. Heparin given for clotting in circuit. Padilla denies fevers or chills. Edema in hand improving. Plan of care was discussed with Dr. Mabry today. Review of Systems A complete review of systems was performed. Pertinent positives are noted above. All other systems are negative. Vital Signs Last 8 Hrs Date Time Temp Pulse Resp B/P (MAP) Pulse Ox O2 Delivery O2 Flow Rate FiO2 07/11/17 08:45 36.2 75 128/75 (92) 07/11/17 07:28 36.7 82 20 135/77 (96) 93 Nasal Cannula 2.0 Last Recorded Weight Weight (Kilograms): 80.300 Physical Exam General Appearance: WD/WN, no apparent distress Head: normocephalic, atraumatic Eyes: normal inspection, sclerae normal ENT: normal ENT inspection, pharynx normal Neck: supple, no JVD Respiratory/Chest: lungs clear, no respiratory distress, no accessory muscle use Cardiovascular: regular rate, rhythm, no murmur Abdomen/GI: non tender, soft Extremities/Musculoskelatal: normal inspection, no pedal edema Neurologic/Psych: alert, normal mood/affect Family History Cervical cancer Diabetes mellitus Heart disease Hypertension Myocardial infarction Pancreatic cancer Prostate cancer Negative for CKD/ESRD Social History Smokeless Tobacco Use: No Alcohol Use: none Drug Use: none Marital Status: single Housing Status: lives alone Occupation: disabled Single, retired. Formerly worked for [employer]. Never a smoker. Laboratory Results Past 24 Hours 07/11/17 05:22 07/11/17 05:22 Test 07/10/17 11:29 07/10/17 16:27 07/10/17 19:52 07/10/17 19:54 Bedside Glucose 164 mg/dl (70-99) 215 mg/dl (70-99) 394 mg/dl (70-99) 237 mg/dl (70-99) Test 07/11/17 05:22 07/11/17 07:32 07/11/17 07:44 Red Blood Count 3.10 M/uL (4.7-6.1) Mean Corpuscular Volume 90.3 fL (80-100) Mean Corpuscular Hemoglobin 29.0 pg (25-34) Mean Corpuscular Hemoglobin Concent 32.1 g/dl (32-36) RDW Standard Deviation 73.7 fL (36.4-46.3) RDW Coefficient of Variation 22.9 % (11.5-14.5) Mean Platelet Volume 9.8 fL (7.4-10.4) Nucleated RBC Absolute Count (auto) 0.24 K/uL (0-0) Nucleated Red Blood Cells % 2.3 % Anion Gap 7.0 mmol/L (3-11) Est Creatinine Clear Calc Drug Dose 16.5 ml/min Estimated GFR () 14.1 Estimated GFR (Non- 12.2 BUN/Creatinine Ratio 14.4 (10-20) Uric Acid 7.0 mg/dl (2.6-7.2) Calcium Level 8.5 mg/dl (8.5-10.1) Total Creatine Kinase 94 U/L (39-308) Bedside Glucose 222 mg/dl (70-99) 194 mg/dl (70-99) Allergies Coded Allergies: Iodinated Diagnostic Agents (Verified Allergy, Unknown, oil based, severe headaches, 06/20/17) EVENT OCCURED IN 1971, PT STATES HE HAS HAD 3 DIFFERENT WATER BASED IVP DYES WITH NO ISSUE Medications Current Inpatient Medications Medications (Trade) Dose Ordered Sig/Edward Route Start Time Stop Time Status Last Admin Dose Admin Acetaminophen (Tylenol Tab) 650 mg Q4H PRN PO 07/05/17 21:45 08/04/17 21:44 Ertapenem 500 mg/ Sodium Chloride 55 ml @ 120 mls/hr Q24H IV 07/05/17 23:00 08/16/17 22:59 07/10/17 23:33 120 MLS/HR Ertapenem (Consult) 1 ea UD PRN N/A 07/05/17 22:00 08/04/17 21:59 Daptomycin (Consult) 1 ea UD PRN N/A 07/05/17 22:00 08/04/17 21:59 Daptomycin 350 mg/ Syringe 7 ml @ 3.5 mls/min Q48H IV 07/06/17 20:00 08/17/17 19:59 07/10/17 21:21 3.5 MLS/MIN Amlodipine Besylate (Norvasc Tab) 10 mg QAM PO 07/06/17 09:00 08/05/17 08:59 07/10/17 09:00 10 MG Aspirin (Ecotrin Tab) 81 mg QAM PO 07/06/17 09:00 08/05/17 08:59 07/10/17 09:01 81 MG Calcitriol (Rocaltrol Cap) 0.25 mcg Q2D PO 07/06/17 09:00 08/05/17 08:59 07/10/17 08:59 0.25 MCG Furosemide (Lasix Tab) 40 mg QAM PO 07/06/17 09:00 08/05/17 08:59 07/10/17 09:02 40 MG Hydralazine HCl (Apresoline Tab) 100 mg TID PO 07/06/17 09:00 08/05/17 08:59 07/10/17 21:11 100 MG Lactobacillus Acidophilus (Floranex Tab) 2 tab TID PO 07/06/17 09:00 08/05/17 08:59 07/10/17 21:08 2 TAB Lisinopril (Zestril Tab) 40 mg DAILY PO 07/06/17 09:00 08/05/17 08:59 07/10/17 09:02 40 MG Methadone HCl (Dolophine Tab) 10 mg TID PO 07/06/17 09:00 07/20/17 08:59 07/10/17 21:08 10 MG Metoprolol Tartrate (Lopressor Tab) 150 mg BID PO 07/06/17 09:00 08/05/17 08:59 07/10/17 21:09 150 MG Polyethylene (Miralax Powder Packet) 17 gm DAILY PRN PO 07/06/17 02:30 08/05/17 02:29 07/09/17 08:14 17 GM Prednisone (PredniSONE TAB) 10 mg BID PO 07/06/17 09:00 08/05/17 08:59 07/10/17 21:11 10 MG Simvastatin (Zocor Tab) 20 mg QPM PO 07/06/17 21:00 08/05/17 20:59 07/10/17 21:08 20 MG Tamsulosin HCl (Flomax Cap) 0.4 mg HS PO 07/06/17 21:00 08/05/17 20:59 07/10/17 21:10 0.4 MG Cabozantinib (Cabometyx) 60 mg DAILY@0500 PO 07/06/17 05:00 08/05/17 04:59 07/11/17 05:00 60 MG Insulin Aspart (novoLOG ASPART) SLIDING SCALE G... ACHS SC 07/06/17 07:00 08/05/17 06:59 07/11/17 09:09 1 UNITS Miscellaneous Information (Check Fentanyl Patch Placement) 1 ea QS N/A 07/06/17 08:00 08/05/17 07:59 07/11/17 09:10 1 EA Glucose (Glucose 40% Gel) 15-30 GRAMS 15 GRAMS... UD PRN PO 07/06/17 04:15 08/05/17 04:14 Glucose (Glucose Chew Tab) 4-8 Tablets 4 Tabl... UD PRN PO 07/06/17 04:15 08/05/17 04:14 Dextrose (Dextrose 50% 50ML Syringe) 25-50ML OF 50% DW IV FOR... UD PRN IV 07/06/17 04:15 08/05/17 04:14 07/06/17 05:40 25 ML Glucagon (Glucagon Inj) 1 mg UD PRN SQ 07/06/17 04:15 08/05/17 04:14 Insulin Glargine (Lantus Solostar Pen) 7 units HS SC 07/06/17 21:00 08/05/17 20:59 07/10/17 21:20 7 UNITS Enteral Nutritional Formula (Boost Glucose Control) 1 can BIDM PO 07/06/17 16:45 08/05/17 16:44 07/11/17 09:10 1 CAN Miscellaneous (Fentanyl Patch Remove & Waste) 1 ea Q3D N/A 07/10/17 01:00 08/09/17 00:59 07/09/17 23:47 1 EA Fentanyl (Duragesic Patch) 25 mcg Q3D TD 07/07/17 01:00 07/21/17 00:59 07/09/17 23:47 25 MCG Heparin Sodium (Porcine) (Heparin 100 Unit/ml 5ml Flush) 5 ml PRN PRN IV 07/07/17 02:45 08/06/17 02:44 07/11/17 05:19 5 ML Calcium Carbonate (Tums Chew Tab) 500 mg TIDM PO 07/07/17 17:00 08/05/17 08:59 07/11/17 09:19 500 MG Oxycodone HCl (Roxicodone Immediate Rel Tab) 10 mg TID PRN PO 07/10/17 14:00 08/05/17 08:59 07/10/17 23:44 10 MG Ondansetron HCl (Zofran Inj) 4 mg Q4H PRN IV 07/11/17 03:00 08/10/17 02:59 Pantoprazole Sodium 40 mg/ Syringe 10 ml @ 5 mls/min DAILY@11 IV 07/11/17 11:00 08/10/17 10:59 Ondansetron HCl (Zofran Tab) 4 mg Q6H PRN PO 07/11/17 10:15 08/10/17 10:14 Impression (1) Cellulitis of left hand (2) ESRD (end stage renal disease) on dialysis (3) Renal cell carcinoma (4) Anemia (5) Diabetes type 2, controlled Recommendations END STAGE RENAL DISEASE: -- HD today, UF goal 2 L -- Qb appropriate ANEMIA: -- Hgb stable. IDALIA administered w/ HD Monday. Will monitor H&H HYPERTENSION: -- BP has improved following UF on HD -- Patient is on Lisinopril, Hydralazine, Amlodipine and Furosemide RENAL CELL CA: -- On Cabozantinib as per Oncology CKD-BMD: -- Continue oral Calcitriol therapy -- Continue CaCO3 500 mg po w/ meals ID: -- On IV Ertapenem and Daptomycin as per ID customer service and sales consultant OTHER: -- Physical therapy has been consulted for strengthening exercises and ambulation
[2017-07-11] MEDS: ONDANSETRON INJ 2 MG/ML 2 ML VIAL IV PRN (10:58)
[2017-07-11] MEDS ORDERED: PROCHLORPERAZINE INJ 5 MG in SYRINGE 4 ML IV ONE (12:00)
[2017-07-11] MEDS: PANTOprazole INJ 40 MG in SYRINGE 0 ML IV SCH (13:02)
[2017-07-11] MEDS ORDERED: PROCHLORPERAZINE INJ 5 MG in SYRINGE 4 ML IV PRN (14:00)
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
--- NOTE | 2017-07-11 14:32 | DIAGNOSTIC IMAGING REPORT ---
KUB CLINICAL HISTORY: Abdominal pain. Evaluate for ileus. COMPARISON STUDY: CT of the abdomen and pelvis May 19, 2017. FINDINGS: The bowel gas pattern is normal. There is a moderate amount of stool within the colon. There is a sigmoid anastomosis. Abdominal surgical clips are noted. Mild elevation of the right hemidiaphragm is unchanged. Apparent left lung airspace opacity is noted. IMPRESSION: 1. No evidence for a bowel obstruction. Normal bowel gas pattern. 2. Moderate amount of stool within the colon. 3. Apparent left lung airspace opacity. This may be artifactual however pneumonia could appear similar. Follow-up PA and lateral radiographs are recommended. Electronically signed by: Lei Gan M.D. 07/11/2017 2:31 PM Dictated Date/Time: 07/11/2017 2:25 PM
[2017-07-11] MEDS: ASPIRIN 81 MG ECTAB PO SCH (14:47)
[2017-07-11] MEDS: AMLODIPINE BESYLATE 5 MG TAB PO SCH (14:48)
[2017-07-11] MEDS: FUROSEMIDE 40 MG TAB PO SCH (14:48)
[2017-07-11] MEDS: LISINOPRIL 40 MG TAB PO SCH (14:48)
[2017-07-11] MEDS: METOPROLOL TARTRATE 100 MG TAB PO SCH ×2 (14:48→21:23)
--- NOTE | 2017-07-11 16:06 | Infectious Disease Progress Nt ---
Progress Note Date of Service Jul 11, 2017. Subjective Pt evaluation today including: conversation w/ patient, physical exam, chart review, lab review, review of studies, conversation w/ multi site leasing consultant, review of inpatient medication list States left hand pain continuing to improve. Decreased swelling and erythema. No fever. No problems obvious with antibiotics All Other Systems: Reviewed and Negative Medications Current Inpatient Medications Medications (Trade) Dose Ordered Sig/Edward Route Start Time Stop Time Status Last Admin Dose Admin Acetaminophen (Tylenol Tab) 650 mg Q4H PRN PO 07/05/17 21:45 08/04/17 21:44 Ertapenem 500 mg/ Sodium Chloride 55 ml @ 120 mls/hr Q24H IV 07/05/17 23:00 08/16/17 22:59 07/10/17 23:33 120 MLS/HR Ertapenem (Consult) 1 ea UD PRN N/A 07/05/17 22:00 08/04/17 21:59 Daptomycin (Consult) 1 ea UD PRN N/A 07/05/17 22:00 08/04/17 21:59 Daptomycin 350 mg/ Syringe 7 ml @ 3.5 mls/min Q48H IV 07/06/17 20:00 08/17/17 19:59 07/10/17 21:21 3.5 MLS/MIN Amlodipine Besylate (Norvasc Tab) 10 mg QAM PO 07/06/17 09:00 08/05/17 08:59 07/10/17 09:00 10 MG Aspirin (Ecotrin Tab) 81 mg QAM PO 07/06/17 09:00 08/05/17 08:59 07/10/17 09:01 81 MG Calcitriol (Rocaltrol Cap) 0.25 mcg Q2D PO 07/06/17 09:00 08/05/17 08:59 07/10/17 08:59 0.25 MCG Furosemide (Lasix Tab) 40 mg QAM PO 07/06/17 09:00 08/05/17 08:59 07/10/17 09:02 40 MG Hydralazine HCl (Apresoline Tab) 100 mg TID PO 07/06/17 09:00 08/05/17 08:59 07/11/17 14:44 100 MG Lactobacillus Acidophilus (Floranex Tab) 2 tab TID PO 07/06/17 09:00 08/05/17 08:59 07/10/17 21:08 2 TAB Lisinopril (Zestril Tab) 40 mg DAILY PO 07/06/17 09:00 08/05/17 08:59 07/10/17 09:02 40 MG Methadone HCl (Dolophine Tab) 10 mg TID PO 07/06/17 09:00 07/20/17 08:59 07/10/17 21:08 10 MG Metoprolol Tartrate (Lopressor Tab) 150 mg BID PO 07/06/17 09:00 08/05/17 08:59 07/10/17 21:09 150 MG Polyethylene (Miralax Powder Packet) 17 gm DAILY PRN PO 07/06/17 02:30 08/05/17 02:29 07/09/17 08:14 17 GM Prednisone (PredniSONE TAB) 10 mg BID PO 07/06/17 09:00 08/05/17 08:59 07/10/17 21:11 10 MG Simvastatin (Zocor Tab) 20 mg QPM PO 07/06/17 21:00 08/05/17 20:59 07/10/17 21:08 20 MG Tamsulosin HCl (Flomax Cap) 0.4 mg HS PO 07/06/17 21:00 08/05/17 20:59 07/10/17 21:10 0.4 MG Cabozantinib (Cabometyx) 60 mg DAILY@0500 PO 07/06/17 05:00 08/05/17 04:59 07/11/17 05:00 60 MG Insulin Aspart (novoLOG ASPART) SLIDING SCALE G... ACHS SC 07/06/17 07:00 08/05/17 06:59 07/11/17 09:09 1 UNITS Miscellaneous Information (Check Fentanyl Patch Placement) 1 ea QS N/A 07/06/17 08:00 08/05/17 07:59 07/11/17 09:10 1 EA Glucose (Glucose 40% Gel) 15-30 GRAMS 15 GRAMS... UD PRN PO 07/06/17 04:15 08/05/17 04:14 Glucose (Glucose Chew Tab) 4-8 Tablets 4 Tabl... UD PRN PO 07/06/17 04:15 08/05/17 04:14 Dextrose (Dextrose 50% 50ML Syringe) 25-50ML OF 50% DW IV FOR... UD PRN IV 07/06/17 04:15 08/05/17 04:14 07/06/17 05:40 25 ML Glucagon (Glucagon Inj) 1 mg UD PRN SQ 07/06/17 04:15 08/05/17 04:14 Insulin Glargine (Lantus Solostar Pen) 7 units HS SC 07/06/17 21:00 08/05/17 20:59 07/10/17 21:20 7 UNITS Enteral Nutritional Formula (Boost Glucose Control) 1 can BIDM PO 07/06/17 16:45 08/05/17 16:44 07/11/17 09:10 1 CAN Miscellaneous (Fentanyl Patch Remove & Waste) 1 ea Q3D N/A 07/10/17 01:00 08/09/17 00:59 07/09/17 23:47 1 EA Fentanyl (Duragesic Patch) 25 mcg Q3D TD 07/07/17 01:00 07/21/17 00:59 07/09/17 23:47 25 MCG Heparin Sodium (Porcine) (Heparin 100 Unit/ml 5ml Flush) 5 ml PRN PRN IV 07/07/17 02:45 08/06/17 02:44 07/11/17 13:52 5 ML Calcium Carbonate (Tums Chew Tab) 500 mg TIDM PO 07/07/17 17:00 08/05/17 08:59 07/11/17 14:44 500 MG Oxycodone HCl (Roxicodone Immediate Rel Tab) 10 mg TID PRN PO 07/10/17 14:00 08/05/17 08:59 07/10/17 23:44 10 MG Ondansetron HCl (Zofran Inj) 4 mg Q4H PRN IV 07/11/17 03:00 08/10/17 02:59 07/11/17 10:58 4 MG Pantoprazole Sodium 40 mg/ Syringe 10 ml @ 5 mls/min DAILY@11 IV 07/11/17 11:00 08/10/17 10:59 07/11/17 13:02 5 MLS/MIN Ondansetron HCl (Zofran Tab) 4 mg Q6H PRN PO 07/11/17 10:15 08/10/17 10:14 Prochlorperazine Edisylate 5 mg/ Syringe 5 ml @ 5 mls/min Q4H PRN IV 07/11/17 14:00 08/10/17 13:59 Objective Vital Signs Date Time Temp Pulse Resp B/P (MAP) Pulse Ox O2 Delivery O2 Flow Rate FiO2 07/11/17 15:44 37.0 75 18 126/71 (89) 97 2.0 07/11/17 13:30 131/75 (93) 07/11/17 13:00 Nasal Cannula 2.0 07/11/17 12:25 36.5 75 108/57 (74) 07/11/17 12:15 79 101/46 07/11/17 12:00 80 99/42 07/11/17 11:45 75 107/57 07/11/17 11:30 84 103/69 07/11/17 11:15 84 106/76 07/11/17 11:00 72 111/63 07/11/17 10:45 68 110/57 07/11/17 10:30 67 141/61 07/11/17 10:15 108 116/87 07/11/17 10:00 79 105/59 07/11/17 09:45 95 107/85 07/11/17 09:30 78 121/87 07/11/17 09:15 81 134/86 07/11/17 09:00 79 138/76 07/11/17 08:45 36.2 75 128/75 (92) 07/11/17 07:28 36.7 82 20 135/77 (96) 93 Nasal Cannula 2.0 07/11/17 00:00 Nasal Cannula 2.0 07/10/17 23:41 36.7 85 18 133/68 (89) 94 Nasal Cannula 2.0 07/10/17 16:15 Nasal Cannula 2.0 Physical Exam General Appearance: WD/WN, no apparent distress Eyes: normal inspection, sclerae normal ENT: normal ENT inspection, pharynx normal Neck: supple, no adenopathy, thyroid normal, trachea midline Respiratory/Chest: chest non-tender, lungs clear, normal breath sounds, no respiratory distress Cardiovascular: regular rate, rhythm, no gallop, no murmur Abdomen: normal bowel sounds, non tender, soft, no organomegaly Extremities: non-tender, no calf tenderness Neurologic/Psychiatric: alert, oriented x 3 Skin: normal color, no rash, + pertinent finding (Improving left hand swelling and erythema) Lymphatic: no adenopathy Laboratory Results Last 24 Hours Test 07/10/17 16:27 07/10/17 19:52 07/10/17 19:54 07/11/17 05:22 Bedside Glucose 215 mg/dl 394 mg/dl 237 mg/dl White Blood Count 10.52 K/uL Red Blood Count 3.10 M/uL Hemoglobin 9.0 g/dL Hematocrit 28.0 % Mean Corpuscular Volume 90.3 fL Mean Corpuscular Hemoglobin 29.0 pg Mean Corpuscular Hemoglobin Concent 32.1 g/dl RDW Standard Deviation 73.7 fL RDW Coefficient of Variation 22.9 % Platelet Count 213 K/uL Mean Platelet Volume 9.8 fL Nucleated RBC Absolute Count (auto) 0.24 K/uL Nucleated Red Blood Cells % 2.3 % Sodium Level 137 mmol/L Potassium Level 3.9 mmol/L Chloride Level 102 mmol/L Carbon Dioxide Level 28 mmol/L Anion Gap 7.0 mmol/L Blood Urea Nitrogen 68 mg/dl Creatinine 4.73 mg/dl Est Creatinine Clear Calc Drug Dose 16.5 ml/min Estimated GFR () 14.1 Estimated GFR (Non- 12.2 BUN/Creatinine Ratio 14.4 Random Glucose 195 mg/dl Uric Acid 7.0 mg/dl Calcium Level 8.5 mg/dl Total Creatine Kinase 94 U/L Test 07/11/17 07:32 07/11/17 07:44 07/11/17 13:05 07/11/17 13:48 Bedside Glucose 222 mg/dl 194 mg/dl 101 mg/dl Hepatitis B Surface Antigen NEG Hepatitis B Surface Antibody NEG Assessment and Plan (1) Pain due to neoplasm Status: Chronic (2) Cellulitis of left hand Status: Acute (3) ESRD (end stage renal disease) on dialysis Status: Acute Started dialysis on 06/12 (4) Hypoxemia requiring supplemental oxygen Status: Acute New problem - pt due for f/u CT per Hem/Onc (5) High risk medication use Status: Acute What 61-year-old male with previous cellulitis of the left hand and forearm after injury from a drill bit, with improvement initially with IV antibiotics, but now with recurrent redness and swelling with increasing pain. Now improved after addition of steroid therapy. Not clear whether patient suffering from reflex sympathetic dystrophy syndrome or whether this is just persistent cellulitis. Patient will continue on current IV antibiotics, likely another week or more therapy.
[2017-07-11] MEDS ORDERED: LACTULOSE SYRUP 30 GM/45 ML UDP PO STA (16:32)
[2017-07-11] MEDS ORDERED: SENNA 8.6 MG TAB PO ONE (16:32)
[2017-07-11] MEDS ORDERED: LACTULOSE SYRUP 30 GM/45 ML UDP PO PRN (16:45)
--- NOTE | 2017-07-11 17:17 | DIAGNOSTIC IMAGING REPORT ---
CHEST 2 VIEWS ROUTINE CLINICAL HISTORY: KUB detected opacity. COMPARISON STUDY: Chest radiograph April 20, [address] May 19, 2017. FINDINGS: A right internal jugular [id number] is in place. There is no pneumothorax. A small right pleural effusion is noted with pleural fluid along the minor fissure. Diffuse interstitial thickening is noted with mild bilateral opacities, greater on the left. Cardiomediastinal silhouette is stable. IMPRESSION: 1. Diffuse interstitial thickening and mild bilateral opacities, greater on the left. The findings could reflect pulmonary edema or an infectious process. 2. Small right pleural effusion. Electronically signed by: Lei Gan M.D. 07/11/2017 5:15 PM Dictated Date/Time: 07/11/2017 5:13 PM
[2017-07-11] MEDS: POLYETHYLENE (MIRALAX) 17 GM PACK PO SCH (17:38)
[2017-07-11] MEDS: OXYCODONE HCL IR 5 MG TAB (IMMEDIATE RELEASE) PO PRN (18:04)
[2017-07-11] MEDS: INSULIN GLARGINE SOLOSTAR 100 UNITS/ML 3 ML PEN SC SCH (21:00)
[2017-07-11] MEDS: ACETAMINOPHEN 325 MG TAB PO PRN (21:21)
[2017-07-11] MEDS: TAMSULOSIN HCL 0.4 MG CAP PO SCH (21:25)
[2017-07-11] MEDS: SIMVASTATIN 20 MG TAB PO SCH (21:25)
[2017-07-11] MEDS ORDERED: LEVALBUTEROL 0.63MG/3 ML NEB INH STA (22:09)
[2017-07-11] MEDS: ERTAPENEM IV 500 MG in SODIUM CHLORIDE 0.9% 50ML 50 ML IV SCH (23:38)
[2017-07-12] MEDS: CABOZANTINIB S MALATE 60 MG PO SCH (05:15)
[2017-07-12 05:59] LABS: HEMATOCRIT 25.3 % (42-52); HEMOGLOBIN 8.3 g/dL (14.0-18.0); MEAN CELL VOLUME 91.7 fL (80-100); MEAN CORPUSCULAR HEMOGLOBIN 30.1 pg (25-34); MEAN CORPUSCULAR HGB CONC 32.8 g/dl (32-36); MEAN PLATELET VOLUME 9.6 fL (7.4-10.4); PLATELET COUNT 175 K/uL (130-400); RED CELL DISTRIBUTION WIDTH CV 23.5 % (11.5-14.5); RED CELL DISTRIBUTION WIDTH SD 77.8 fL (36.4-46.3); WHITE BLOOD COUNT 10.79 K/uL (4.8-10.8)
[2017-07-12 06:41] LABS: CALCIUM 8.1 mg/dl (8.5-10.1); CREATININE 3.72 mg/dl (0.60-1.40); POTASSIUM 4.1 mmol/L (3.5-5.1)
[2017-07-12 07:39] VITALS: BP 124/67; PULSE 79; TEMP 36.7; O2SAT 91
[2017-07-12] MEDS: FUROSEMIDE 40 MG TAB PO SCH (07:48)
[2017-07-12] MEDS: LACTOBACILLUS ACIDOPHILUS (FLORANEX) TAB PO SCH ×3 (07:49→20:48)
[2017-07-12] MEDS: LISINOPRIL 40 MG TAB PO SCH (07:49)
[2017-07-12] MEDS: CHECK FENTANYL PATCH PLACEMENT SCH ×3 (07:49→23:40)
[2017-07-12] MEDS: BOOST GLUCOSE CONTROL PO SCH ×2 (07:49→17:34)
[2017-07-12] MEDS: AMLODIPINE BESYLATE 5 MG TAB PO SCH (07:50)
[2017-07-12] MEDS: ASPIRIN 81 MG ECTAB PO SCH (07:50)
[2017-07-12] MEDS: METHADONE HCL 10 MG TAB PO SCH ×3 (07:50→20:43)
[2017-07-12] MEDS: POLYETHYLENE (MIRALAX) 17 GM PACK PO SCH (07:50)
[2017-07-12] MEDS: INSULIN ASPART 100 UNITS/ML 3 ML PEN SC SCH ×4 (07:56→20:44)
[2017-07-12] MEDS: SENNA 8.6 MG TAB PO SCH (08:00)
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
[2017-07-12] MEDS: OXYCODONE HCL IR 5 MG TAB (IMMEDIATE RELEASE) PO PRN ×2 (08:26→23:47)
[2017-07-12] MEDS: METOPROLOL TARTRATE 100 MG TAB PO SCH ×2 (08:27→20:50)
[2017-07-12] MEDS: CALCITRIOL 0.25 MCG CAP PO SCH (08:28)
[2017-07-12] MEDS: CALCIUM CARBONATE 500 MG CHEWABLE PO SCH ×3 (08:29→17:34)
--- NOTE | 2017-07-12 09:19 | Nephrology Progress Note ---
Nephrology Progress Note Date of Service Jul 12, 2017. Chief Complaint ESRD Subjective Dialysis treatment shortened yesterday due to nausea and vomiting. Padilla notes that he was able to move his bowels this morning for the first time in several days. He still feels constipated. He notes right sided abdominal pain in the right lower quadrant. There is tenderness. This symptom is new within the past 24 hour. Nausea and vomiting have improved. Appetite is not great but he was able to eat this morning. Low grade fever (37.8) noted overnight. No chills or rigors. Shortness of breath noted at rest. Patient was hypoxic overnight and is now on supplemental O2. Padilla also notes increased edema in his left hand. I reviewed the CXR this morning. Review of Systems A complete review of systems was performed. Pertinent positives are noted above. All other systems are negative. Vital Signs Last 8 Hrs Date Time Temp Pulse Resp B/P (MAP) Pulse Ox O2 Delivery O2 Flow Rate FiO2 07/12/17 07:39 36.7 79 16 124/67 (86) 91 Humidified Oxygen 4.0 Last Recorded Weight Weight (Kilograms): 80.800 Physical Exam General Appearance: WD/WN, no apparent distress, + pertinent finding (ashen complexion) Head: normocephalic, atraumatic Eyes: normal inspection, sclerae normal ENT: normal ENT inspection, pharynx normal Neck: supple, no JVD Respiratory/Chest: no respiratory distress, no accessory muscle use, + decreased breath sounds (bilateral bases) Cardiovascular: regular rate, rhythm, no gallop Abdomen/GI: soft, + tenderness (right sided, lower quadrant - no guarding or rebound), + distended Extremities/Musculoskelatal: normal inspection, no pedal edema, + pertinent finding (Increased edema in left hand without erythema or drainage; AVF with thrill and bruit) Neurologic/Psych: alert, oriented x 3, + depressed affect Family History Cervical cancer Diabetes mellitus Heart disease Hypertension Myocardial infarction Pancreatic cancer Prostate cancer Negative for CKD/ESRD Social History Smokeless Tobacco Use: No Alcohol Use: none Drug Use: none Marital Status: single Housing Status: lives alone Occupation: disabled Single, retired. Formerly worked for [employer]. Never a smoker. Laboratory Results Past 24 Hours 07/12/17 05:39 07/12/17 05:39 Test 07/11/17 13:05 07/11/17 13:48 07/11/17 16:42 07/11/17 20:11 Bedside Glucose 101 mg/dl (70-99) 129 mg/dl (70-99) 109 mg/dl (70-99) Hepatitis B Surface Antigen NEG (NEG) Hepatitis B Surface Antibody NEG Test 07/11/17 21:18 07/12/17 05:39 07/12/17 07:54 Bedside Glucose 85 mg/dl (70-99) 117 mg/dl (70-99) Red Blood Count 2.76 M/uL (4.7-6.1) Mean Corpuscular Volume 91.7 fL (80-100) Mean Corpuscular Hemoglobin 30.1 pg (25-34) Mean Corpuscular Hemoglobin Concent 32.8 g/dl (32-36) RDW Standard Deviation 77.8 fL (36.4-46.3) RDW Coefficient of Variation 23.5 % (11.5-14.5) Mean Platelet Volume 9.6 fL (7.4-10.4) Nucleated RBC Absolute Count (auto) 0.70 K/uL (0-0) Nucleated Red Blood Cells % 6.5 % Anion Gap 4.0 mmol/L (3-11) Est Creatinine Clear Calc Drug Dose 21.0 ml/min Estimated GFR () 18.9 Estimated GFR (Non- 16.3 BUN/Creatinine Ratio 12.1 (10-20) Calcium Level 8.1 mg/dl (8.5-10.1) Allergies Coded Allergies: Iodinated Diagnostic Agents (Verified Allergy, Unknown, oil based, severe headaches, 06/20/17) EVENT OCCURED IN 1971, PT STATES HE HAS HAD 3 DIFFERENT WATER BASED IVP DYES WITH NO ISSUE Medications Current Inpatient Medications Medications (Trade) Dose Ordered Sig/Edward Route Start Time Stop Time Status Last Admin Dose Admin Acetaminophen (Tylenol Tab) 650 mg Q4H PRN PO 07/05/17 21:45 08/04/17 21:44 07/11/17 21:21 650 MG Ertapenem 500 mg/ Sodium Chloride 55 ml @ 120 mls/hr Q24H IV 07/05/17 23:00 08/16/17 22:59 07/11/17 23:38 120 MLS/HR Ertapenem (Consult) 1 ea UD PRN N/A 07/05/17 22:00 08/04/17 21:59 Daptomycin (Consult) 1 ea UD PRN N/A 07/05/17 22:00 08/04/17 21:59 Daptomycin 350 mg/ Syringe 7 ml @ 3.5 mls/min Q48H IV 07/06/17 20:00 08/17/17 19:59 07/10/17 21:21 3.5 MLS/MIN Amlodipine Besylate (Norvasc Tab) 10 mg QAM PO 07/06/17 09:00 08/05/17 08:59 07/12/17 07:50 10 MG Aspirin (Ecotrin Tab) 81 mg QAM PO 07/06/17 09:00 08/05/17 08:59 07/12/17 07:50 81 MG Calcitriol (Rocaltrol Cap) 0.25 mcg Q2D PO 07/06/17 09:00 08/05/17 08:59 07/12/17 08:28 0.25 MCG Furosemide (Lasix Tab) 40 mg QAM PO 07/06/17 09:00 08/05/17 08:59 07/12/17 07:48 40 MG Hydralazine HCl (Apresoline Tab) 100 mg TID PO 07/06/17 09:00 08/05/17 08:59 07/12/17 08:28 100 MG Lactobacillus Acidophilus (Floranex Tab) 2 tab TID PO 07/06/17 09:00 08/05/17 08:59 07/12/17 07:49 2 TAB Lisinopril (Zestril Tab) 40 mg DAILY PO 07/06/17 09:00 08/05/17 08:59 07/12/17 07:49 40 MG Methadone HCl (Dolophine Tab) 10 mg TID PO 07/06/17 09:00 07/20/17 08:59 07/12/17 07:50 10 MG Metoprolol Tartrate (Lopressor Tab) 150 mg BID PO 07/06/17 09:00 08/05/17 08:59 07/12/17 08:27 150 MG Prednisone (PredniSONE TAB) 10 mg BID PO 07/06/17 09:00 08/05/17 08:59 07/12/17 08:28 10 MG Simvastatin (Zocor Tab) 20 mg QPM PO 07/06/17 21:00 08/05/17 20:59 07/11/17 21:25 20 MG Tamsulosin HCl (Flomax Cap) 0.4 mg HS PO 07/06/17 21:00 08/05/17 20:59 07/11/17 21:25 0.4 MG Cabozantinib (Cabometyx) 60 mg DAILY@0500 PO 07/06/17 05:00 08/05/17 04:59 07/12/17 05:15 60 MG Insulin Aspart (novoLOG ASPART) SLIDING SCALE G... ACHS SC 07/06/17 07:00 08/05/17 06:59 07/11/17 09:09 1 UNITS Miscellaneous Information (Check Fentanyl Patch Placement) 1 ea QS N/A 07/06/17 08:00 08/05/17 07:59 07/12/17 07:49 1 EA Glucose (Glucose 40% Gel) 15-30 GRAMS 15 GRAMS... UD PRN PO 07/06/17 04:15 08/05/17 04:14 Glucose (Glucose Chew Tab) 4-8 Tablets 4 Tabl... UD PRN PO 07/06/17 04:15 08/05/17 04:14 Dextrose (Dextrose 50% 50ML Syringe) 25-50ML OF 50% DW IV FOR... UD PRN IV 07/06/17 04:15 08/05/17 04:14 07/06/17 05:40 25 ML Glucagon (Glucagon Inj) 1 mg UD PRN SQ 07/06/17 04:15 08/05/17 04:14 Insulin Glargine (Lantus Solostar Pen) 7 units HS SC 07/06/17 21:00 08/05/17 20:59 07/10/17 21:20 7 UNITS Enteral Nutritional Formula (Boost Glucose Control) 1 can BIDM PO 07/06/17 16:45 08/05/17 16:44 07/12/17 07:49 1 CAN Miscellaneous (Fentanyl Patch Remove & Waste) 1 ea Q3D N/A 07/10/17 01:00 08/09/17 00:59 07/09/17 23:47 1 EA Fentanyl (Duragesic Patch) 25 mcg Q3D TD 07/07/17 01:00 07/21/17 00:59 07/09/17 23:47 25 MCG Heparin Sodium (Porcine) (Heparin 100 Unit/ml 5ml Flush) 5 ml PRN PRN IV 07/07/17 02:45 08/06/17 02:44 07/12/17 05:35 5 ML Calcium Carbonate (Tums Chew Tab) 500 mg TIDM PO 07/07/17 17:00 08/05/17 08:59 07/12/17 08:29 500 MG Oxycodone HCl (Roxicodone Immediate Rel Tab) 10 mg TID PRN PO 07/10/17 14:00 08/05/17 08:59 07/12/17 08:26 10 MG Ondansetron HCl (Zofran Inj) 4 mg Q4H PRN IV 07/11/17 03:00 08/10/17 02:59 07/11/17 10:58 4 MG Pantoprazole Sodium 40 mg/ Syringe 10 ml @ 5 mls/min DAILY@11 IV 07/11/17 11:00 08/10/17 10:59 07/11/17 13:02 5 MLS/MIN Ondansetron HCl (Zofran Tab) 4 mg Q6H PRN PO 07/11/17 10:15 08/10/17 10:14 Prochlorperazine Edisylate 5 mg/ Syringe 5 ml @ 5 mls/min Q4H PRN IV 07/11/17 14:00 08/10/17 13:59 Lactulose (Chronulac Syrup) 30 gm Q4H PRN PO 07/11/17 16:45 08/10/17 16:44 Senna (Senokot Tab) 8.6 mg QAM PO 07/12/17 08:00 08/11/17 07:59 Polyethylene (Miralax Powder Packet) 17 gm DAILY PO 07/11/17 16:45 08/05/17 02:29 07/12/17 07:50 17 GM Impression (1) Cellulitis of left hand (2) ESRD (end stage renal disease) on dialysis (3) Renal cell carcinoma (4) Anemia (5) Diabetes type 2, controlled Mr. Padilla Christy is a 61-year-old male with ESRD and a solitary R kidney. He underwent left nephrectomy in 2016 for metastatic RCC. He is maintained on carbometyx with know retroperitoneal lymphadenopathy and right kidney hyperdense lesion and possible lung metastasis. In the past 24-48 hour, he has developed transient nausea and vomiting as well as left lower quadrant abdominal pain and hypoxia. He has constipation. He reports that he has been able to manage constipation associated with chronic opiate use at home with polyethylene glycol. The symptom is improving. I maintain a high index of suspicion that TKI therapy may be driving some of his symptoms and would have a low threshold to repeat CT of chest, abdomen and pelvis. Note the black box warning including GI perforation or fistula formation. Padilla was admitted with persistent soft tissue infection in his left hand. He has been treated with ertapenem and daptomycin. In March he was admitted with fever, SOB and desaturation due to pneumonia , left pleural effusion and possible pneumonitis. At that time treated with vancomycin, Zosyn and Levaquin, as well as left pleural tap and steroid taper. Previously could not tolerate Sutent due to high grade proteinuria and poorly- controlled hypertension. Unfortunately, Opdivo caused arthralgia, colitis and possible pneumonitis. Recommendations END STAGE RENAL DISEASE: -- No HD today -- Plan next treatment tomorrow per TTS schedule -- Volume status and BP appropriate -- Metabolic profile acceptable ANEMIA: -- Hgb stable. IDALIA administered w/ HD Monday. -- Repeat CBC prior to HD tomorrow HYPERTENSION: -- BP acceptable -- Patient is on Lisinopril, Hydralazine, Amlodipine and Furosemide RENAL CELL CA: -- Cabozantinib as per Oncology -- Low threshold to repeat CT scan CKD-BMD: -- Continue oral Calcitriol therapy -- Continue CaCO3 500 mg po w/ meals ID: -- On IV Ertapenem and Daptomycin as per ID
[2017-07-12] MEDS: PANTOprazole INJ 40 MG in SYRINGE 0 ML IV SCH (10:47)
[2017-07-12 13:40] VITALS: BP 134/70; PULSE 75
[2017-07-12 15:31] VITALS: BP 120/65; PULSE 81; TEMP 36.6; O2SAT 98
[2017-07-12] MEDS: VANCOMYCIN HCL 250 MG/5 ML SOLN PO SCH ×2 (17:51→23:38)
[2017-07-12] MEDS: RASPBERRY SYRUP 5 ML UDP PO SCH ×2 (17:51→23:38)
[2017-07-12] MEDS ORDERED: HEPARIN SOD (PORCINE) 1000 UNIT/ML 10 ML VIAL IV SCH (18:00)
[2017-07-12] MEDS: INSULIN GLARGINE SOLOSTAR 100 UNITS/ML 3 ML PEN SC SCH (20:43)
[2017-07-12] MEDS: HEPARIN SOD 5000 UNIT/0.5 ML CARP SQ SCH (20:44)
[2017-07-12] MEDS: SIMVASTATIN 20 MG TAB PO SCH (20:45)
[2017-07-12] MEDS: TAMSULOSIN HCL 0.4 MG CAP PO SCH (20:48)
[2017-07-12] MEDS: ONDANSETRON INJ 2 MG/ML 2 ML VIAL IV PRN (20:50)
[2017-07-12] MEDS: DAPTOmycin IV 350 MG in SYRINGE 0 ML IV SCH (20:52)
[2017-07-12 23:34] VITALS: BP 115/66; PULSE 88; TEMP 37; O2SAT 92
[2017-07-12] MEDS: ERTAPENEM IV 500 MG in SODIUM CHLORIDE 0.9% 50ML 50 ML IV SCH (23:38)
[2017-07-13] VITALS (21 sets, daily range): BP systolic 102–143; BP diastolic 57–82; PULSE 75–93; TEMP 36.4–36.7; O2SAT 91–96
[2017-07-13] MEDS: FENTANYL 25 MCG/HR TDSY TD SCH (01:04)
[2017-07-13] MEDS: FENTANYL PATCH REMOVE & WASTE SCH (01:06)
[2017-07-13] MEDS: VANCOMYCIN HCL 250 MG/5 ML SOLN PO SCH ×4 (05:34→22:21)
[2017-07-13] MEDS: RASPBERRY SYRUP 5 ML UDP PO SCH ×4 (05:34→22:21)
[2017-07-13] MEDS: CABOZANTINIB S MALATE 60 MG PO SCH (05:35)
[2017-07-13 05:52] LABS: HEMATOCRIT 23.7 % (42-52); HEMOGLOBIN 7.7 g/dL (14.0-18.0); MEAN CELL VOLUME 90.5 fL (80-100); MEAN CORPUSCULAR HEMOGLOBIN 29.4 pg (25-34); MEAN CORPUSCULAR HGB CONC 32.5 g/dl (32-36); MEAN PLATELET VOLUME 9.7 fL (7.4-10.4); NUCLEATED RED BLOOD CELL ABS 0.29 K/uL (0-0); PLATELET COUNT 157 K/uL (130-400); RED CELL DISTRIBUTION WIDTH CV 23.4 % (11.5-14.5); RED CELL DISTRIBUTION WIDTH SD 77.3 fL (36.4-46.3); WHITE BLOOD COUNT 11.34 K/uL (4.8-10.8)
[2017-07-13 06:27] LABS: CALCIUM 8.5 mg/dl (8.5-10.1); CREATININE 4.49 mg/dl (0.60-1.40); POTASSIUM 4.6 mmol/L (3.5-5.1)
[2017-07-13] MEDS: SENNA 8.6 MG TAB PO SCH (08:00)
[2017-07-13] MEDS: METHADONE HCL 10 MG TAB PO SCH ×3 (08:20→20:53)
[2017-07-13] MEDS: CHECK FENTANYL PATCH PLACEMENT SCH ×2 (08:21→15:46)
[2017-07-13] MEDS: INSULIN ASPART 100 UNITS/ML 3 ML PEN SC SCH ×4 (08:21→20:58)
[2017-07-13] MEDS: BOOST GLUCOSE CONTROL PO SCH ×2 (08:21→17:43)
[2017-07-13] MEDS: CALCIUM CARBONATE 500 MG CHEWABLE PO SCH ×3 (08:22→17:43)
[2017-07-13] MEDS: POLYETHYLENE (MIRALAX) 17 GM PACK PO SCH (08:22)
[2017-07-13] MEDS: ASPIRIN 81 MG ECTAB PO SCH (08:23)
[2017-07-13] MEDS: LACTOBACILLUS ACIDOPHILUS (FLORANEX) TAB PO SCH ×3 (08:23→20:54)
[2017-07-13] MEDS: FUROSEMIDE 40 MG TAB PO SCH (08:24)
[2017-07-13] MEDS: HEPARIN SOD 5000 UNIT/0.5 ML CARP SQ SCH (09:00)
--- NOTE | 2017-07-13 10:09 | DIAGNOSTIC IMAGING REPORT ---
ABDOMEN AND PELVIS CT WITHOUT CONTRAST CT DOSE: 515.82 mGy.cm HISTORY: Acute right lower quadrant abdominal pain with history of metastatic renal cell carcinoma metastatic RCC, abdominal pain, c diff. Prior left-sided nephrectomy TECHNIQUE: Multiaxial CT images of the abdomen and pelvis were performed without contrast. A dose lowering technique was utilized adhering to the principles of ALARA. COMPARISON STUDY: CT chest, abdomen and pelvis 05/19/2017. FINDINGS: Trace left pleural effusion with slightly increased size of small right pleural effusion. Multifocal patchy groundglass opacities of the lung bases are noted in addition to consolidation of the right lower and middle lobes. The consolidation of the right lower lobe with adjacent to the area of previously described right lower lobe pleural-parenchymal scarring. There is of peripheral consolidation are noted within the lung bases, left greater than right. Imaged inferior cardiac chambers are unremarkable. Coronary arterial disease. Evaluation of the solid abdominal organs is limited without the use of IV contrast. Gallbladder is partially collapsed. Nonspecific pericholecystic inflammatory stranding. Spleen, pancreas and right adrenal gland are unremarkable. Prior left-sided nephrectomy. Multiple indeterminate right-sided renal lesions redemonstrated including a 3.6 x 2.8 cm ovoid lesion with Hounsfield unit of 58, possibly reflecting a hemorrhagic or proteinaceous cyst with similar appearing 9 mm lesion noted within the superior pole, image 160 series 3. Probable cyst measuring 3.2 cm is noted within the superior pole right kidney with layering milk of calcium. Mild right-sided perinephric stranding. No right-sided hydronephrosis. The right ureter, urinary bladder and prostate are unremarkable. Moderate atherosclerosis of the abdominal aorta. Mildly prominent left retrocrural lymph node is again seen, 1.2 x 0.8 cm, previously 1.7 x 1.1 cm. Enlarged periaortic lymph node on image 205 series 3 measures 1.8 x 1.4 cm, previously 2.5 x 1.7 cm. Additionally, there is decreased size of the retroperitoneal lymph node just anteriorly now measuring 8 mm, previously 10 mm. No new adenopathy identified. Mild gastric distention. No bowel obstruction. Indeterminate 11 mm soft tissue nodule of the left upper abdomen suggests possible small bowel diverticulum. Prior partial sigmoid colon resection. Mild colonic diverticulosis with very minimal stranding noted adjacent to the descending sigmoid colon junction likely incidental. Minimal stranding adjacent to the greater curvature of the stomach is also noted, likely incidental well. Hyperattenuating focus of the right rectus sheath measures 1.5 x 3.0 x 5.4 cm in AP, transverse and craniocaudal dimension. No definite suspicious lytic or blastic bony lesions identified. Unchanged partially sclerotic lucent focus of the right iliac bone. IMPRESSION: 1. Small right rectus sheath hematoma measuring up to 5.4 cm in length. 2. Small right and trace left pleural effusions with right lower and right middle lobe consolidation. Multifocal groundglass opacities involving the bilateral lung bases suspicious for pneumonitis. 3. Decreased size of left retrocrural and retroperitoneal lymph nodes as above. No new or progressive adenopathy identified. 4. Prior left-sided nephrectomy. 5. Multiple indeterminate lesions of the right kidney redemonstrated, unchanged from comparison. Electronically signed by: Mike Oconnor M.D. 07/13/2017 10:08 AM Dictated Date/Time: 07/13/2017 9:51 AM
--- NOTE | 2017-07-13 10:29 | Nephrology Progress Note ---
Nephrology Progress Note Date of Service Jul 13, 2017. Chief Complaint ESRD Subjective No acute events overnight. Padilla remains lethargic. He reports improvement in nausea. No vomiting in past 24 hours. Appetite is poor. Abdominal pain persists. Noted increasing tenderness in the right lower quadrant. No bowel movements overnight. No fevers or chills. Dyspnea has improved. Denies significant orthopnea. No cough. Ho hemoptysis. Review of Systems A complete review of systems was performed. Pertinent positives are noted above. All other systems are negative. Vital Signs Last 8 Hrs Date Time Temp Pulse Resp B/P (MAP) Pulse Ox O2 Delivery O2 Flow Rate FiO2 07/13/17 09:45 91 Nasal Cannula 3.0 07/13/17 07:10 36.7 79 20 129/70 (89) 96 Nasal Cannula 4.0 Last Recorded Weight Weight (Kilograms): 81.100 Physical Exam General Appearance: WD/WN, no apparent distress, + pertinent finding (overall better color today) Head: normocephalic, atraumatic Eyes: normal inspection, sclerae normal ENT: normal ENT inspection, pharynx normal Neck: supple, no JVD Respiratory/Chest: lungs clear, no respiratory distress, no accessory muscle use, + decreased breath sounds (bilateral bases) Cardiovascular: regular rate, rhythm, no gallop Abdomen/GI: soft, + tenderness (right lower quadrant with some guarding, no rebound; hypoactive bowel sounds) Extremities/Musculoskelatal: normal inspection, no pedal edema, + pertinent finding (left hand edema without erythema or drainage; AVF with thrill and bruit ) Neurologic/Psych: alert, + depressed affect Family History Cervical cancer Diabetes mellitus Heart disease Hypertension Myocardial infarction Pancreatic cancer Prostate cancer Negative for CKD/ESRD Social History Smokeless Tobacco Use: No Alcohol Use: none Drug Use: none Marital Status: single Housing Status: lives alone Occupation: disabled Single, retired. Formerly worked for [employer]. Never a smoker. Laboratory Results Past 24 Hours 07/13/17 05:38 07/13/17 05:38 Test 07/12/17 11:50 07/12/17 12:13 07/12/17 16:22 07/12/17 20:20 Urine Color DK YELLOW Urine Appearance CLEAR (CLEAR) Urine pH 5.0 (4.5-7.5) Urine Specific Ducor 1.022 (1.000-1.030) Urine Protein 3+ (NEG) Urine Glucose (UA) NEG (NEG) Urine Ketones NEG (NEG) Urine Occult Blood NEG (NEG) Urine Nitrite NEG (NEG) Urine Bilirubin NEG (NEG) Urine Urobilinogen NEG (NEG) Urine Leukocyte Esterase NEG (NEG) Urine WBC (Auto) 1-5 /hpf (0-5) Urine RBC (Auto) 10-30 /hpf (0-4) Urine Hyaline Casts (Auto) 1-5 /lpf (0-5) Urine Epithelial Cells (Auto) 20-30 /lpf (0-5) Urine Bacteria (Auto) 4+ (NEG) Urine Crystals TALC (NONE PRSENT) Urine Pathogenic Casts See comments /lpf (0) Bedside Glucose 117 mg/dl (70-99) 148 mg/dl (70-99) 143 mg/dl (70-99) Test 07/13/17 05:38 07/13/17 07:37 Red Blood Count 2.62 M/uL (4.7-6.1) Mean Corpuscular Volume 90.5 fL (80-100) Mean Corpuscular Hemoglobin 29.4 pg (25-34) Mean Corpuscular Hemoglobin Concent 32.5 g/dl (32-36) RDW Standard Deviation 77.3 fL (36.4-46.3) RDW Coefficient of Variation 23.4 % (11.5-14.5) Mean Platelet Volume 9.7 fL (7.4-10.4) Nucleated RBC Absolute Count (auto) 0.29 K/uL (0-0) Nucleated Red Blood Cells % 2.6 % Anion Gap 6.0 mmol/L (3-11) Est Creatinine Clear Calc Drug Dose 17.4 ml/min Estimated GFR () 15.0 Estimated GFR (Non- 13.0 BUN/Creatinine Ratio 13.5 (10-20) Calcium Level 8.5 mg/dl (8.5-10.1) Total Creatine Kinase 74 U/L (39-308) Bedside Glucose 141 mg/dl (70-99) Allergies Coded Allergies: Iodinated Diagnostic Agents (Verified Allergy, Unknown, oil based, severe headaches, 06/20/17) EVENT OCCURED IN 1971, PT STATES HE HAS HAD 3 DIFFERENT WATER BASED IVP DYES WITH NO ISSUE Medications Current Inpatient Medications Medications (Trade) Dose Ordered Sig/Edward Route Start Time Stop Time Status Last Admin Dose Admin Acetaminophen (Tylenol Tab) 650 mg Q4H PRN PO 07/05/17 21:45 08/04/17 21:44 07/11/17 21:21 650 MG Ertapenem 500 mg/ Sodium Chloride 55 ml @ 120 mls/hr Q24H IV 07/05/17 23:00 08/16/17 22:59 07/12/17 23:38 120 MLS/HR Ertapenem (Consult) 1 ea UD PRN N/A 07/05/17 22:00 08/04/17 21:59 Daptomycin (Consult) 1 ea UD PRN N/A 07/05/17 22:00 08/04/17 21:59 Daptomycin 350 mg/ Syringe 7 ml @ 3.5 mls/min Q48H IV 07/06/17 20:00 08/17/17 19:59 07/12/17 20:52 3.5 MLS/MIN Amlodipine Besylate (Norvasc Tab) 10 mg QAM PO 07/06/17 09:00 08/05/17 08:59 07/12/17 07:50 10 MG Aspirin (Ecotrin Tab) 81 mg QAM PO 07/06/17 09:00 08/05/17 08:59 07/13/17 08:23 81 MG Calcitriol (Rocaltrol Cap) 0.25 mcg Q2D PO 07/06/17 09:00 08/05/17 08:59 07/12/17 08:28 0.25 MCG Furosemide (Lasix Tab) 40 mg QAM PO 07/06/17 09:00 08/05/17 08:59 07/13/17 08:24 40 MG Hydralazine HCl (Apresoline Tab) 100 mg TID PO 07/06/17 09:00 08/05/17 08:59 07/12/17 20:47 100 MG Lactobacillus Acidophilus (Floranex Tab) 2 tab TID PO 07/06/17 09:00 08/05/17 08:59 07/13/17 08:23 2 TAB Lisinopril (Zestril Tab) 40 mg DAILY PO 07/06/17 09:00 08/05/17 08:59 07/12/17 07:49 40 MG Methadone HCl (Dolophine Tab) 10 mg TID PO 07/06/17 09:00 07/20/17 08:59 07/13/17 08:20 10 MG Metoprolol Tartrate (Lopressor Tab) 150 mg BID PO 07/06/17 09:00 08/05/17 08:59 07/12/17 20:50 150 MG Prednisone (PredniSONE TAB) 10 mg BID PO 07/06/17 09:00 08/05/17 08:59 07/13/17 08:23 10 MG Simvastatin (Zocor Tab) 20 mg QPM PO 07/06/17 21:00 08/05/17 20:59 07/12/17 20:45 20 MG Tamsulosin HCl (Flomax Cap) 0.4 mg HS PO 07/06/17 21:00 08/05/17 20:59 07/12/17 20:48 0.4 MG Cabozantinib (Cabometyx) 60 mg DAILY@0500 PO 07/06/17 05:00 08/05/17 04:59 07/13/17 05:35 60 MG Insulin Aspart (novoLOG ASPART) SLIDING SCALE G... ACHS SC 07/06/17 07:00 08/05/17 06:59 07/11/17 09:09 1 UNITS Miscellaneous Information (Check Fentanyl Patch Placement) 1 ea QS N/A 07/06/17 08:00 08/05/17 07:59 07/13/17 08:21 1 EA Glucose (Glucose 40% Gel) 15-30 GRAMS 15 GRAMS... UD PRN PO 07/06/17 04:15 08/05/17 04:14 Glucose (Glucose Chew Tab) 4-8 Tablets 4 Tabl... UD PRN PO 07/06/17 04:15 08/05/17 04:14 Dextrose (Dextrose 50% 50ML Syringe) 25-50ML OF 50% DW IV FOR... UD PRN IV 07/06/17 04:15 08/05/17 04:14 07/06/17 05:40 25 ML Glucagon (Glucagon Inj) 1 mg UD PRN SQ 07/06/17 04:15 08/05/17 04:14 Insulin Glargine (Lantus Solostar Pen) 7 units HS SC 07/06/17 21:00 08/05/17 20:59 12/20/17 20:43 7 UNITS Enteral Nutritional Formula (Boost Glucose Control) 1 can BIDM PO 07/06/17 16:45 08/05/17 16:44 07/13/17 08:21 1 CAN Miscellaneous (Fentanyl Patch Remove & Waste) 1 ea Q3D N/A 07/10/17 01:00 08/09/17 00:59 07/13/17 01:06 1 EA Fentanyl (Duragesic Patch) 25 mcg Q3D TD 07/07/17 01:00 07/21/17 00:59 07/13/17 01:04 25 MCG Heparin Sodium (Porcine) (Heparin 100 Unit/ml 5ml Flush) 5 ml PRN PRN IV 07/07/17 02:45 08/06/17 02:44 07/13/17 05:59 5 ML Calcium Carbonate (Tums Chew Tab) 500 mg TIDM PO 07/07/17 17:00 08/05/17 08:59 07/13/17 08:22 500 MG Oxycodone HCl (Roxicodone Immediate Rel Tab) 10 mg TID PRN PO 07/10/17 14:00 08/05/17 08:59 07/12/17 23:47 10 MG Ondansetron HCl (Zofran Inj) 4 mg Q4H PRN IV 07/11/17 03:00 08/10/17 02:59 07/12/17 20:50 4 MG Pantoprazole Sodium 40 mg/ Syringe 10 ml @ 5 mls/min DAILY@11 IV 07/11/17 11:00 08/10/17 10:59 07/12/17 10:47 5 MLS/MIN Ondansetron HCl (Zofran Tab) 4 mg Q6H PRN PO 07/11/17 10:15 08/10/17 10:14 Prochlorperazine Edisylate 5 mg/ Syringe 5 ml @ 5 mls/min Q4H PRN IV 07/11/17 14:00 08/10/17 13:59 Lactulose (Chronulac Syrup) 30 gm Q4H PRN PO 07/11/17 16:45 08/10/17 16:44 Senna (Senokot Tab) 8.6 mg QAM PO 07/12/17 08:00 08/11/17 07:59 Polyethylene (Miralax Powder Packet) 17 gm DAILY PO 07/11/17 16:45 08/05/17 02:29 07/13/17 08:22 17 GM Heparin Sodium (Porcine) (Heparin Sq 5000 Unit/0.5ml) 5,000 unit Q12 SQ 07/12/17 21:00 08/11/17 20:59 07/12/17 20:44 5,000 UNIT Vancomycin HCl (Vancomycin Oral Soln) 250 mg Q6H PO 07/12/17 17:00 07/26/17 16:59 07/13/17 05:34 250 MG Raspberry (Raspberry Syrup 5ml Cup) 5 ml Q6H PO 07/12/17 17:00 07/26/17 16:59 07/13/17 05:34 5 ML Epoetin Mohsen (Procrit Inj) 20,000 units ONE IV 07/13/17 08:15 08/12/17 08:14 UNV Iron Sucrose 100 mg/Syringe 5 ml @ 0 mls/min TODAY IV 07/13/17 08:15 08/12/17 08:14 UNV Impression (1) Cellulitis of left hand (2) ESRD (end stage renal disease) on dialysis (3) Renal cell carcinoma (4) Anemia (5) Diabetes type 2, controlled Mr. Padilla Christy is a 61-year-old male with ESRD and a solitary R kidney. He underwent left nephrectomy in 2015 for metastatic RCC. He is maintained on carbometyx with know retroperitoneal lymphadenopathy and right kidney hyperdense lesions and possible lung metastasis. In the past 2-3 days, Padilla developed transient nausea and vomiting as well as right lower quadrant abdominal pain and hypoxia. He noted constipation. He reports that he has been able to manage constipation associated with chronic opiate use at home with polyethylene glycol. No leukocytosis. Low grade fever. I maintain a high index of suspicion that TKI therapy may be driving some of his symptoms and would have a low threshold to consider holding the medication. Note the black box warning including GI perforation or fistula formation. Non contrast CT requested this morning. There is a reported history of reaction to IV contrast in the past. Padilla was admitted with persistent soft tissue infection in his left hand. He has been treated with ertapenem and daptomycin. In March he was admitted with fever, SOB and desaturation due to pneumonia , left pleural effusion and possible pneumonitis. At that time treated with vancomycin, Zosyn and Levaquin, as well as left pleural tap and steroid taper. Previously could not tolerate Sutent due to high grade proteinuria and poorly- controlled hypertension. Unfortunately, Opdivo caused arthralgia, colitis and possible pneumonitis. Recommendations END STAGE RENAL DISEASE: -- HD today per TTS schedule (orders entered into chart and discussed with RN) -- UF 2 L as tolerated -- Monitor metabolic profile daily ANEMIA: -- Epogen 58503 IU today -- Venofer 100 mg -- Monitor CBC pre HD while inpatient HYPERTENSION: -- BP acceptable -- Patient is on Lisinopril, Hydralazine, Amlodipine and Furosemide RENAL CELL CA: -- Cabozantinib as per Oncology -- Low threshold to repeat CT scan CKD-BMD: -- Continue oral Calcitriol therapy -- Continue CaCO3 500 mg po w/ meals ID: -- On IV Ertapenem and Daptomycin as per ID
[2017-07-13] MEDS ORDERED: IRON SUCROSE INJ 100 MG in SYRINGE 0 ML IV SCH (11:00)
[2017-07-13] MEDS ORDERED: EPOETIN ALFA 20,000 UNITS/ML VIAL IV SCH (11:00)
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
--- NOTE | 2017-07-13 11:45 | Clinical Documentation Query ---
CLINICAL DOCUMENTATION QUERY 07/13 progress note states the followin/21:Fever - blood cultures and urine cx pending - CXR - bilateral opacities, could represent infection - may explain his new oxygen demand - C.diff came back positive - likely source of abdominal pain. Started oral vancomycin today - if abdominal pain does not improve - will do CT abdomen In your clinical opinion is this patient being managed for any of the following: ( x ) Possible Pneumonia ( x) C.Diff enteritis ( ) Not Agree ( ) Other explanation of clinical findings (Please Explain) ( ) Unable to determine (Please Define) ( ) Need to Discuss The medical record reflects the following clinical findings, treatment, and risk factors. Clinical Indicators: As above. Treatment: O2, IV Daptomycin, IV Ertapenem, PO Vanco, BC, UC Risk Factors: Age, IV antibiotic therapy, Hospital confinement. Please clarify and document your clinical opinion in the progress notes and discharge summary. Terms such as "probable", "suspected", "likely", "questionable", "possible", or "still to be ruled out" are acceptable. IF IN AGREEMENT, YOU MUST DOCUMENT ABOVE DIAGNOSTIC STATEMENT IN DAILY PROGRESS NOTES AND DISCHARGE SUMMARY. This document is not part of the patient's record. Thank You, Don Beverly, RN [phone]
--- NOTE | 2017-07-13 11:53 | Clinical Documentation Query ---
CLINICAL DOCUMENTATION QUERY 07/13 progress note states the followin/21:Fever - blood cultures and urine cx pending - CXR - bilateral opacities, could represent infection - may explain his new oxygen demand - C.diff came back positive - likely source of abdominal pain. Started oral vancomycin today - if abdominal pain does not improve - will do CT abdomen In your clinical opinion is this patient being managed for any of the following: ( x ) Pneumonia - unsure if infectious or "SUSTAINABILITY COMMUNICATOR" (cryptogenic organizing pneumonia - an inflammatory condition) (x ) C.Diff enteritis ( ) Not Agree ( ) Other explanation of clinical findings (Please Explain) ( ) Unable to determine (Please Define) ( ) Need to Discuss The medical record reflects the following clinical findings, treatment, and risk factors. Clinical Indicators: As above. Treatment: O2, IV Daptomycin, IV Ertapenem, PO Vanco, BC, UC Risk Factors: Age, IV antibiotic therapy, Hospital confinement. Please clarify and document your clinical opinion in the progress notes and discharge summary. Terms such as "probable", "suspected", "likely", "questionable", "possible", or "still to be ruled out" are acceptable. IF IN AGREEMENT, YOU MUST DOCUMENT ABOVE DIAGNOSTIC STATEMENT IN DAILY PROGRESS NOTES AND DISCHARGE SUMMARY. This document is not part of the patient's record. Thank You, Don Beverly, PHONG [phone]
[2017-07-13] MEDS: LISINOPRIL 40 MG TAB PO SCH (14:20)
[2017-07-13] MEDS: AMLODIPINE BESYLATE 5 MG TAB PO SCH (14:20)
[2017-07-13] MEDS: METOPROLOL TARTRATE 100 MG TAB PO SCH ×2 (14:21→20:56)
[2017-07-13] MEDS: PANTOprazole INJ 40 MG in SYRINGE 0 ML IV SCH (14:22)
[2017-07-13] MEDS ORDERED: AZTREONAM IV 1,000 MG in DEXTROSE 5% 100ML 100 ML IV SCH (16:30)
[2017-07-13] MEDS ORDERED: VANCOMYCIN CONSULT ACTIVE PRN (17:00)
[2017-07-13] MEDS ORDERED: AZTREONAM CONSULT ACTIVE PRN (17:00)
[2017-07-13] MEDS ORDERED: VANCOMYCIN INJ 1,750 MG in SODIUM CHLORIDE 0.9% 500ML 500 ML IV ONE (17:30)
[2017-07-13] MEDS ORDERED: AZTREONAM 2000 MG in DEXTROSE 5% 100 ML IV ONE (17:30)
[2017-07-13] MEDS: SIMVASTATIN 20 MG TAB PO SCH (20:54)
[2017-07-13] MEDS: TAMSULOSIN HCL 0.4 MG CAP PO SCH (20:55)
[2017-07-13] MEDS: INSULIN GLARGINE SOLOSTAR 100 UNITS/ML 3 ML PEN SC SCH (20:57)
[2017-07-13] MEDS ORDERED: VANCOMYCIN INJ 500 MG in SODIUM CHLORIDE 0.9% 250ML 250 ML IV SCH (21:00)
--- NOTE | 2017-07-13 21:19 | Pharmacy Progress Note ---
Pharmacy Antibiotic Consult Date of Service: Jul 13, 2017. Pharmacy Dosing Scope Pharmacy is consulted to initiate Vancomycin and Azactam IV dosing therapy, order appropriate labs and adjust drug dose/frequency. Subjective The patient is a 61 year old male admitted on Jul 05, 2017 at 19:47. Objective Height (Feet): 5 Height (Inches): 10.00 Weight (Kilograms): 85.200 Lab Results (24hrs): Test 07/13/17 05:38 07/13/17 16:40 07/13/17 20:25 White Blood Count 11.34 K/uL (4.8-10.8) Red Blood Count 2.62 M/uL (4.7-6.1) Hemoglobin 7.7 g/dL (14.0-18.0) Hematocrit 23.7 % (42-52) Mean Corpuscular Volume 90.5 fL (80-100) Mean Corpuscular Hemoglobin 29.4 pg (25-34) Mean Corpuscular Hemoglobin Concent 32.5 g/dl (32-36) RDW Standard Deviation 77.3 fL (36.4-46.3) RDW Coefficient of Variation 23.4 % (11.5-14.5) Platelet Count 157 K/uL (130-400) Mean Platelet Volume 9.7 fL (7.4-10.4) Nucleated RBC Absolute Count (auto) 0.29 K/uL (0-0) Nucleated Red Blood Cells % 2.6 % Sodium Level 135 mmol/L (136-145) Potassium Level 4.6 mmol/L (3.5-5.1) Chloride Level 103 mmol/L (98-107) Carbon Dioxide Level 26 mmol/L (21-32) Anion Gap 6.0 mmol/L (3-11) Blood Urea Nitrogen 61 mg/dl (7-18) Creatinine 4.49 mg/dl (0.60-1.40) Est Creatinine Clear Calc Drug Dose 17.4 ml/min Estimated GFR () 15.0 Estimated GFR (Non- 13.0 BUN/Creatinine Ratio 13.5 (10-20) Random Glucose 150 mg/dl (70-99) Calcium Level 8.5 mg/dl (8.5-10.1) Total Creatine Kinase 74 U/L (39-308) Bedside Glucose 92 mg/dl (70-99) 124 mg/dl (70-99) Assessment & Plan Assessment * Pt has failed detention ertapenem and daptomycin tx for hand cellulitis. * History of DM, ESRD, HD schedule ,,. * Blood cultures pending * C. diff positive, on PO vanc * Urine culture negative * CXR-possible pneumonia...starting Azactam for possible Pseudomonas coverage. * Vancomycin-pt will be dosed per levels secondary to HD tx Plan Vancomycin * Loading dose: (20mg/kg) 1750 mg IV X 1 dose then * Random vanc level ordered for 07/15 with am labs. Anticipate HD on 07/15. * Goal trough for HCAP: 15-20 mcg/mL Aztreonam * Ordered a loading dose of 2gm IV x 1 * Maintenance dose: 500mg IV q 12 hours. Pharmacy will continue to follow and will adjust dose/frequency as necessary. Thank you
[2017-07-14] VITALS: O2SAT 96
[2017-07-14 00:09] VITALS: BP 116/66; PULSE 92; TEMP 36.9; O2SAT 96
[2017-07-14] MEDS: OXYCODONE HCL IR 5 MG TAB (IMMEDIATE RELEASE) PO PRN ×2 (01:11→10:12)
[2017-07-14] MEDS: RASPBERRY SYRUP 5 ML UDP PO SCH ×4 (05:24→22:37)
[2017-07-14] MEDS: VANCOMYCIN HCL 250 MG/5 ML SOLN PO SCH ×4 (05:24→22:37)
[2017-07-14] MEDS: CABOZANTINIB S MALATE 60 MG PO SCH (05:26)
[2017-07-14] MEDS: CHECK FENTANYL PATCH PLACEMENT SCH ×4 (08:00→23:18)
[2017-07-14] MEDS: BOOST GLUCOSE CONTROL PO SCH ×2 (08:00→17:00)
[2017-07-14] MEDS ORDERED: PANTOprazole SOD 40 MG TAB PO SCH (08:00)
[2017-07-14] MEDS: SENNA 8.6 MG TAB PO SCH (08:00)
[2017-07-14 08:02] VITALS: BP 136/72; PULSE 78; TEMP 36.8; O2SAT 98
[2017-07-14 08:48] LABS: HEMATOCRIT 25.9 % (42-52); HEMOGLOBIN 8.3 g/dL (14.0-18.0); MEAN CELL VOLUME 92.2 fL (80-100); MEAN CORPUSCULAR HEMOGLOBIN 29.5 pg (25-34); MEAN PLATELET VOLUME 10.5 fL (7.4-10.4); NUCLEATED RED BLOOD CELL ABS 0.49 K/uL (0-0); PLATELET COUNT 174 K/uL (130-400); RED CELL DISTRIBUTION WIDTH CV 23.2 % (11.5-14.5); RED CELL DISTRIBUTION WIDTH SD 77.7 fL (36.4-46.3); WHITE BLOOD COUNT 11.49 K/uL (4.8-10.8)
[2017-07-14] MEDS ORDERED: AZTREONAM IV 500 MG in DEXTROSE 5% 50ML 50 ML IV SCH (09:00)
--- NOTE | 2017-07-14 09:03 | Family Medicine Progress Note ---
Progress Note Date of Service Jul 14, 2017. Subjective Pt evaluation today including: conversation w/ patient, physical exam, chart review, lab review, review of inpatient medication list Pain: Abdominal and left hand pain reported PO Intake: Tolerating PO intake Voiding: no voiding problems Mr. Christy reports he feels slightly better today. He states the pain in his RLQ is decreasing in intensity, but he feels as though the pain is spreading throughout his abdomen. He remains with loose stools, without the presence of blood. He feels his breathing is about the same, and that his hand has slowly been improving. He denies any new symptoms, such as chest pain, n/v, fever or chills. Constitutional: No fever, No chills Respiratory: + dyspnea on exertion, No cough, No sputum Cardiovascular: No chest pain, No edema Abdomen: + pain, + diarrhea, No nausea, No vomiting Musculoskeletal: + problem reported (left hand pain) All Other Systems: Reviewed and Negative Medications Current Inpatient Medications Medications (Trade) Dose Ordered Sig/Edward Route Start Time Stop Time Status Last Admin Dose Admin Acetaminophen (Tylenol Tab) 650 mg Q4H PRN PO 07/05/17 21:45 08/04/17 21:44 07/11/17 21:21 650 MG Amlodipine Besylate (Norvasc Tab) 10 mg QAM PO 07/06/17 09:00 08/05/17 08:59 07/14/17 10:08 10 MG Aspirin (Ecotrin Tab) 81 mg QAM PO 07/06/17 09:00 08/05/17 08:59 07/14/17 10:04 81 MG Calcitriol (Rocaltrol Cap) 0.25 mcg Q2D PO 07/06/17 09:00 08/05/17 08:59 07/14/17 10:10 0.25 MCG Furosemide (Lasix Tab) 40 mg QAM PO 07/06/17 09:00 08/05/17 08:59 07/14/17 10:06 40 MG Hydralazine HCl (Apresoline Tab) 100 mg TID PO 07/06/17 09:00 08/05/17 08:59 07/14/17 10:03 100 MG Lactobacillus Acidophilus (Floranex Tab) 2 tab TID PO 07/06/17 09:00 08/05/17 08:59 07/14/17 10:05 2 TAB Lisinopril (Zestril Tab) 40 mg DAILY PO 07/06/17 09:00 08/05/17 08:59 07/14/17 10:10 40 MG Metoprolol Tartrate (Lopressor Tab) 150 mg BID PO 07/06/17 09:00 08/05/17 08:59 07/14/17 10:06 150 MG Prednisone (PredniSONE TAB) 10 mg BID PO 07/06/17 09:00 08/05/17 08:59 07/14/17 10:09 10 MG Simvastatin (Zocor Tab) 20 mg QPM PO 07/06/17 21:00 08/05/17 20:59 07/13/17 20:54 20 MG Tamsulosin HCl (Flomax Cap) 0.4 mg HS PO 07/06/17 21:00 08/05/17 20:59 07/13/17 20:55 0.4 MG Cabozantinib (Cabometyx) 60 mg DAILY@0500 PO 07/06/17 05:00 08/05/17 04:59 07/14/17 05:26 60 MG Insulin Aspart (novoLOG ASPART) SLIDING SCALE G... ACHS SC 07/06/17 07:00 08/05/17 06:59 07/11/17 09:09 1 UNITS Miscellaneous Information (Check Fentanyl Patch Placement) 1 ea QS N/A 07/06/17 08:00 08/05/17 07:59 07/14/17 08:00 1 EA Glucose (Glucose 40% Gel) 15-30 GRAMS 15 GRAMS... UD PRN PO 07/06/17 04:15 08/05/17 04:14 Glucose (Glucose Chew Tab) 4-8 Tablets 4 Tabl... UD PRN PO 07/06/17 04:15 08/05/17 04:14 Dextrose (Dextrose 50% 50ML Syringe) 25-50ML OF 50% DW IV FOR... UD PRN IV 07/06/17 04:15 08/05/17 04:14 07/06/17 05:40 25 ML Glucagon (Glucagon Inj) 1 mg UD PRN SQ 07/06/17 04:15 08/05/17 04:14 Insulin Glargine (Lantus Solostar Pen) 7 units HS SC 07/06/17 21:00 08/05/17 20:59 07/13/17 20:57 7 UNITS Enteral Nutritional Formula (Boost Glucose Control) 1 can BIDM PO 07/06/17 16:45 08/05/17 16:44 07/14/17 08:00 1 CAN Miscellaneous (Fentanyl Patch Remove & Waste) 1 ea Q3D N/A 07/10/17 01:00 08/09/17 00:59 07/13/17 01:06 1 EA Fentanyl (Duragesic Patch) 25 mcg Q3D TD 07/07/17 01:00 07/21/17 00:59 07/13/17 01:04 25 MCG Heparin Sodium (Porcine) (Heparin 100 Unit/ml 5ml Flush) 5 ml PRN PRN IV 07/07/17 02:45 08/06/17 02:44 07/14/17 11:24 5 ML Calcium Carbonate (Tums Chew Tab) 500 mg TIDM PO 07/07/17 17:00 08/05/17 08:59 07/14/17 10:10 500 MG Ondansetron HCl (Zofran Inj) 4 mg Q4H PRN IV 07/11/17 03:00 08/10/17 02:59 07/12/17 20:50 4 MG Ondansetron HCl (Zofran Tab) 4 mg Q6H PRN PO 07/11/17 10:15 08/10/17 10:14 Prochlorperazine Edisylate 5 mg/ Syringe 5 ml @ 5 mls/min Q4H PRN IV 07/11/17 14:00 08/10/17 13:59 Lactulose (Chronulac Syrup) 30 gm Q4H PRN PO 07/11/17 16:45 08/10/17 16:44 Senna (Senokot Tab) 8.6 mg QAM PO 07/12/17 08:00 08/11/17 07:59 Polyethylene (Miralax Powder Packet) 17 gm DAILY PO 07/11/17 16:45 08/05/17 02:29 07/14/17 10:07 17 GM Vancomycin HCl (Vancomycin Oral Soln) 250 mg Q6H PO 07/12/17 17:00 07/26/17 16:59 07/14/17 11:26 250 MG Raspberry (Raspberry Syrup 5ml Cup) 5 ml Q6H PO 07/12/17 17:00 07/26/17 16:59 07/14/17 11:25 5 ML Pantoprazole Sodium (Protonix Tab) 40 mg QAM PO 07/14/17 08:00 07/14/17 23:59 07/14/17 10:09 40 MG Vancomycin HCl (Consult) 1 ea UD PRN N/A 07/13/17 17:00 08/12/17 16:59 Aztreonam (Consult) 1 ea UD PRN N/A 07/13/17 17:00 08/12/17 16:59 Aztreonam 500 mg/ Dextrose 55 ml @ 110 mls/hr Q12H IV 07/14/17 09:00 07/20/17 17:59 07/14/17 10:13 110 MLS/HR Oxycodone HCl (Roxicodone Immediate Rel Tab) 10 mg Q4H PRN PO 07/14/17 09:15 08/05/17 08:59 07/14/17 10:12 10 MG Methadone HCl (Dolophine Tab) 20 mg BID PO 07/14/17 09:30 07/28/17 09:29 07/14/17 10:11 20 MG Objective Vital Signs Date Time Temp Pulse Resp B/P (MAP) Pulse Ox O2 Delivery O2 Flow Rate FiO2 07/14/17 14:38 36.8 76 18 125/71 (89) 98 4.0 07/14/17 08:02 36.8 78 18 136/72 (93) 98 4.0 07/14/17 08:00 Nasal Cannula 4.0 07/14/17 00:09 36.9 92 18 116/66 (83) 96 Nasal Cannula 4.0 07/14/17 00:00 96 Nasal Cannula 4.0 07/13/17 16:00 Nasal Cannula 4.0 07/13/17 14:54 36.7 92 20 138/74 (95) 93 Nasal Cannula 4.0 Physical Exam General Appearance: WD/WN, no apparent distress Respiratory/Chest: chest non-tender, normal breath sounds, no respiratory distress, no accessory muscle use, + decreased breath sounds Cardiovascular: regular rate, rhythm, no edema, no gallop, no JVD, no murmur Abdomen: normal bowel sounds, no organomegaly, no pulsatile mass, + tenderness (over RLQ), + mass (distended in RLQ with bruising overtop) Extremities: + pertinent finding (left hand swollen and decreased ROM. good linseed oil refiner strength) Laboratory Results Last 24 Hours Test 07/13/17 16:40 07/13/17 20:25 07/14/17 08:01 07/14/17 08:29 Bedside Glucose 92 mg/dl 124 mg/dl 76 mg/dl White Blood Count 11.49 K/uL Red Blood Count 2.81 M/uL Hemoglobin 8.3 g/dL Hematocrit 25.9 % Mean Corpuscular Volume 92.2 fL Mean Corpuscular Hemoglobin 29.5 pg Mean Corpuscular Hemoglobin Concent 32.0 g/dl RDW Standard Deviation 77.7 fL RDW Coefficient of Variation 23.2 % Platelet Count 174 K/uL Mean Platelet Volume 10.5 fL Nucleated RBC Absolute Count (auto) 0.49 K/uL Nucleated Red Blood Cells % 4.2 % Sodium Level 136 mmol/L Potassium Level 4.8 mmol/L Chloride Level 105 mmol/L Carbon Dioxide Level 27 mmol/L Anion Gap 5.0 mmol/L Blood Urea Nitrogen 40 mg/dl Creatinine 3.50 mg/dl Est Creatinine Clear Calc Drug Dose 22.3 ml/min Estimated GFR () 20.3 Estimated GFR (Non- 17.5 BUN/Creatinine Ratio 11.3 Random Glucose 65 mg/dl Calcium Level 8.4 mg/dl Phosphorus Level 3.2 mg/dl Albumin 1.3 gm/dl Test 07/14/17 11:27 Bedside Glucose 155 mg/dl Assessment and Plan Mr. Christy is a 61 year old gentleman with hx of ESRD on HD, RCC, DMII who had failed outpt mx for left hand cellulitis despite being on IV abx. Fever - urine cx negative, blood cultures negative - C.diff came back positive - will treat for c.diff enteritis with oral vancomycin (started on 07/12) - CT abdomen showed - small right rectus sheath hematoma, no new lymphadenopathy , lesions of right kidney, unchanged from before Abdominal Pain - secondary to the rectus sheath hematoma - will apply warm k-pad to the area for symptomatic relief - hold heparin for dvt prophylaxis and will stop giving insulin injections in that area Left hand cellulitis - ID consulted. Recommendations: - continue vancomycin/aztreonam to cover for healthcare acquired pneumonia also - day 9 of abx, day 2 of vanco/aztreonam - possible reflex sympathetic dystrophy - consider neuro consult in the future +/- nerve conduction studies - MRI results show = Subcutaneous edema with mild edema of the intrinsic musculature suggesting cellulitis with myositis. No osteomyelitis, no abscess - Ortho consulted: Dr. Marie - thank you for consult - no surgical indications at this time - Given continued pain - Rheumatology consult also ordered - thank you for recommendations - 1 dose Solu-medrol 40mg IV (given on 07/09) - Continue home dose of steroids - CK and uric acid within normal limits - WBC normal - warm compresses to help with pain ESRD HD secondary to RCC/ s/p left nephrectomy - Nephrology Consulted - HD tomorrow - receives HD on Tuesdays, and Saturdays - appreciate oncology's input: - continue cabozantinib -> although does contain warning for GI perf and fistula - may repeat CT scan if he does not improve - next scans planned for July - continue home dose of prednisone 10mg bid SOB - new oxygen demand - pt is on 2L and reports feeling SOB without it, he is not normally on oxygen at home - thank you to pulmonary for consult - CT scan showed = Development of extensive groundglass opacity & multifocal consolidation since previous CT. Possible cryptogenic organizing pneumonia/drug related pneumonitis - increase prednisone from 10mg daily to 40mg daily - change antibiotics from IV aztreonam to IV zosyn to include anaerobe coverage - ?bibasilar pneumonia - speech/swallow eval ordered - Continue O2 supplementation to maintain SaO2 >92%. - 2 step on discharge Chronic Pain - continue fentanyl - thank you to Dr. Jackson for consult. Recommendations - continue prn oxycodone - increased from tid prn to q4h prn - pt was on increased dose of methadone at 20 mg BID since 06/20 - in the hospital, he has been on 10mg TID, will increase to previous regimen of 20mg BID DMII - 7 units of Lantus with sliding scale - BSG AC HS Anemia - Hgb today increased from 7.7 to 8.3 - nephrology -> continue epogen 94846 units and venofer 100mg - continue to monitor HTN/hyperlipidemia - continue asa 81 mg, furosemide 40 mg - continue hydralazine 100 mg tid, amlodipine 10 mg daily, metoprolol 150 mg bid and lisinopril 40 mg daily - continue simvastatin 20 mg daily - I&O and daily weights BPH - continue tamsulosin 0.4 mg CKD Bone Mineral Disease - Continue oral Calcitriol - Continue CaCO3 500 mg with meals DVT Prophylaxis: SCDs, d/c heparin 5000 units SQ q12h Code: Full Disposition: remains on med/onc. Possible eventual d/c to [facility] Resident Physician Supervision Note: I was present with PGY1 Dr. Magdy Bautista during the history and exam. I discussed the case with the resident and agree with the findings and plan as documented in the note. Any exceptions or clarifications are listed here: none. Pt sleepy during my visit. States he is about the same as yesterday. Abd pain continues (RLQ). VSS gen - chronically ill, sleepy mouth - no lesions neck - no JVD heart - RRR lungs - CTA b/l abd - soft, ND, +RLQ tenderness remains; area of ecchymoses over RLQ unchanged; fullness RLQ unchanged ext - no edema skin - nearly resolved cellulitis left hand (dorsum) A/P: 1. RLQ abd pain 2nd to rectus sheath hematoma - warm compressions/heat, pain meds; H/H stable today 2. c. diff colitis - vanco PO qid; day #3 of Rx 3. recent left hand cellulitis - was on ertapenem & daptomycin w/ improvement; these abx have been broadened (see below) 4. b/l pneumonia on imaging - [employer]ING [employer]ER vs infectious; pulmonary has seen - they are increasing his prednisone to 40mg daily; for possible gram negative ruperto pneumonia or aspiration pneumonia the aztreonam has been broadened to zosyn 5. h/o [employer]ING [employer]ER - see above 7. anemia - H/H acceptable today His overall prognosis is poor in light of stage 4 renal cell ca, ESRD, mounting infectious issues, failure to thrive, etc Spoke with Dr. Jackson who plans to discuss code status/etc with pt & his family soon Documented By: Clint Zepeda MD Resident Tracking Resident Involvement: Resident Care Provided Care Provided: Adult [facility] Medicine
--- NOTE | 2017-07-14 09:17 | Nephrology Progress Note ---
Nephrology Progress Note Date of Service Jul 14, 2017. Chief Complaint ESRD Subjective No acute events overnight. Padilla is very tired this morning. He is increasingly weak. Activity tolerance is poor. Pain is controlled. He had a small bowel movement last night. He has not moved his bowels this morning. He continues to deny diarrhea. Abdominal pain persists. He has noticed bruising on his abdomen and areas of increasing tenderness. He denies fevers or chills. He denies significant orthopnea or dyspnea at rest. Review of Systems A complete review of systems was performed. Pertinent positives are noted above. All other systems are negative. Vital Signs Last 8 Hrs Date Time Temp Pulse Resp B/P (MAP) Pulse Ox O2 Delivery O2 Flow Rate FiO2 07/14/17 08:02 36.8 78 18 136/72 (93) 98 4.0 Last Recorded Weight Weight (Kilograms): 80.500 Physical Exam General Appearance: WD/WN, + pertinent finding (generalized weakness) Head: normocephalic, atraumatic Eyes: normal inspection, sclerae normal ENT: normal ENT inspection, pharynx normal, + pertinent finding (oral mucosa slightly dry) Neck: supple, no JVD Respiratory/Chest: lungs clear, no respiratory distress, no accessory muscle use, + decreased breath sounds (bilateral bases) Cardiovascular: regular rate, rhythm, no murmur Abdomen/GI: soft, + tenderness (right sided, ecchymotic bruising noted on anterior abdomen, no guarding or rebound) Extremities/Musculoskelatal: normal inspection, no pedal edema Neurologic/Psych: alert, oriented x 3 Family History Cervical cancer Diabetes mellitus Heart disease Hypertension Myocardial infarction Pancreatic cancer Prostate cancer Negative for CKD/ESRD Social History Smokeless Tobacco Use: No Alcohol Use: none Drug Use: none Marital Status: single Housing Status: lives alone Occupation: disabled Single, retired. Formerly worked for [employer]. Never a smoker. Laboratory Results Past 24 Hours 07/14/17 08:29 Test 07/13/17 11:28 07/13/17 16:40 07/13/17 20:25 07/14/17 08:01 Bedside Glucose 129 mg/dl (70-99) 92 mg/dl (70-99) 124 mg/dl (70-99) 76 mg/dl (70-99) Test 07/14/17 08:29 Red Blood Count 2.81 M/uL (4.7-6.1) Mean Corpuscular Volume 92.2 fL (80-100) Mean Corpuscular Hemoglobin 29.5 pg (25-34) Mean Corpuscular Hemoglobin Concent 32.0 g/dl (32-36) RDW Standard Deviation 77.7 fL (36.4-46.3) RDW Coefficient of Variation 23.2 % (11.5-14.5) Mean Platelet Volume 10.5 fL (7.4-10.4) Nucleated RBC Absolute Count (auto) 0.49 K/uL (0-0) Nucleated Red Blood Cells % 4.2 % Allergies Coded Allergies: Iodinated Diagnostic Agents (Verified Allergy, Unknown, oil based, severe headaches, 06/20/17) EVENT OCCURED IN 1971, PT STATES HE HAS HAD 3 DIFFERENT WATER BASED IVP DYES WITH NO ISSUE Medications Current Inpatient Medications Medications (Trade) Dose Ordered Sig/Edward Route Start Time Stop Time Status Last Admin Dose Admin Acetaminophen (Tylenol Tab) 650 mg Q4H PRN PO 07/05/17 21:45 08/04/17 21:44 07/11/17 21:21 650 MG Amlodipine Besylate (Norvasc Tab) 10 mg QAM PO 07/06/17 09:00 08/05/17 08:59 07/13/17 14:20 10 MG Aspirin (Ecotrin Tab) 81 mg QAM PO 07/06/17 09:00 08/05/17 08:59 07/13/17 08:23 81 MG Calcitriol (Rocaltrol Cap) 0.25 mcg Q2D PO 07/06/17 09:00 08/05/17 08:59 07/12/17 08:28 0.25 MCG Furosemide (Lasix Tab) 40 mg QAM PO 07/06/17 09:00 08/05/17 08:59 07/13/17 08:24 40 MG Hydralazine HCl (Apresoline Tab) 100 mg TID PO 07/06/17 09:00 08/05/17 08:59 07/13/17 20:59 100 MG Lactobacillus Acidophilus (Floranex Tab) 2 tab TID PO 07/06/17 09:00 08/05/17 08:59 07/13/17 20:54 2 TAB Lisinopril (Zestril Tab) 40 mg DAILY PO 07/06/17 09:00 08/05/17 08:59 07/13/17 14:20 40 MG Methadone HCl (Dolophine Tab) 10 mg TID PO 07/06/17 09:00 07/20/17 08:59 07/13/17 20:53 10 MG Metoprolol Tartrate (Lopressor Tab) 150 mg BID PO 07/06/17 09:00 08/05/17 08:59 07/13/17 20:56 150 MG Prednisone (PredniSONE TAB) 10 mg BID PO 07/06/17 09:00 08/05/17 08:59 07/13/17 20:58 10 MG Simvastatin (Zocor Tab) 20 mg QPM PO 07/06/17 21:00 08/05/17 20:59 07/13/17 20:54 20 MG Tamsulosin HCl (Flomax Cap) 0.4 mg HS PO 07/06/17 21:00 08/05/17 20:59 07/13/17 20:55 0.4 MG Cabozantinib (Cabometyx) 60 mg DAILY@0500 PO 07/06/17 05:00 08/05/17 04:59 07/14/17 05:26 60 MG Insulin Aspart (novoLOG ASPART) SLIDING SCALE G... ACHS SC 07/06/17 07:00 08/05/17 06:59 07/11/17 09:09 1 UNITS Miscellaneous Information (Check Fentanyl Patch Placement) 1 ea QS N/A 07/06/17 08:00 08/05/17 07:59 07/14/17 00:00 1 EA Glucose (Glucose 40% Gel) 15-30 GRAMS 15 GRAMS... UD PRN PO 07/06/17 04:15 08/05/17 04:14 Glucose (Glucose Chew Tab) 4-8 Tablets 4 Tabl... UD PRN PO 07/06/17 04:15 08/05/17 04:14 Dextrose (Dextrose 50% 50ML Syringe) 25-50ML OF 50% DW IV FOR... UD PRN IV 07/06/17 04:15 08/05/17 04:14 07/06/17 05:40 25 ML Glucagon (Glucagon Inj) 1 mg UD PRN SQ 07/06/17 04:15 08/05/17 04:14 Insulin Glargine (Lantus Solostar Pen) 7 units HS SC 07/06/17 21:00 08/05/17 20:59 07/13/17 20:57 7 UNITS Enteral Nutritional Formula (Boost Glucose Control) 1 can BIDM PO 07/06/17 16:45 08/05/17 16:44 07/13/17 17:43 1 CAN Miscellaneous (Fentanyl Patch Remove & Waste) 1 ea Q3D N/A 07/10/17 01:00 08/09/17 00:59 07/13/17 01:06 1 EA Fentanyl (Duragesic Patch) 25 mcg Q3D TD 07/07/17 01:00 07/21/17 00:59 07/13/17 01:04 25 MCG Heparin Sodium (Porcine) (Heparin 100 Unit/ml 5ml Flush) 5 ml PRN PRN IV 07/07/17 02:45 08/06/17 02:44 07/13/17 22:21 5 ML Calcium Carbonate (Tums Chew Tab) 500 mg TIDM PO 07/07/17 17:00 08/05/17 08:59 07/13/17 17:43 500 MG Oxycodone HCl (Roxicodone Immediate Rel Tab) 10 mg TID PRN PO 07/10/17 14:00 08/05/17 08:59 07/14/17 01:11 10 MG Ondansetron HCl (Zofran Inj) 4 mg Q4H PRN IV 07/11/17 03:00 08/10/17 02:59 07/12/17 20:50 4 MG Ondansetron HCl (Zofran Tab) 4 mg Q6H PRN PO 07/11/17 10:15 08/10/17 10:14 Prochlorperazine Edisylate 5 mg/ Syringe 5 ml @ 5 mls/min Q4H PRN IV 07/11/17 14:00 08/10/17 13:59 Lactulose (Chronulac Syrup) 30 gm Q4H PRN PO 07/11/17 16:45 08/10/17 16:44 Senna (Senokot Tab) 8.6 mg QAM PO 07/12/17 08:00 08/11/17 07:59 Polyethylene (Miralax Powder Packet) 17 gm DAILY PO 07/11/17 16:45 08/05/17 02:29 07/13/17 08:22 17 GM Vancomycin HCl (Vancomycin Oral Soln) 250 mg Q6H PO 07/12/17 17:00 07/26/17 16:59 07/14/17 05:24 250 MG Raspberry (Raspberry Syrup 5ml Cup) 5 ml Q6H PO 07/12/17 17:00 07/26/17 16:59 07/14/17 05:24 5 ML Pantoprazole Sodium (Protonix Tab) 40 mg QAM PO 07/14/17 08:00 07/14/17 23:59 Vancomycin HCl (Consult) 1 ea UD PRN N/A 07/13/17 17:00 08/12/17 16:59 Aztreonam (Consult) 1 ea UD PRN N/A 07/13/17 17:00 08/12/17 16:59 Aztreonam 500 mg/ Dextrose 55 ml @ 110 mls/hr Q12H IV 07/14/17 09:00 07/20/17 17:59 Impression (1) Cellulitis of left hand (2) ESRD (end stage renal disease) on dialysis (3) Renal cell carcinoma (4) Anemia (5) Diabetes type 2, controlled Mr. Padilla Christy is a 61-year-old male with ESRD and metastatic RCC. He underwent left nephrectomy in 2015. He is maintained on Cabometyx. He start HD in May. He completed a 3.5 hr dialysis treatment yesterday without complications. Qb 400 via AVF. UF 2 kg. He feels tired but feels that he is tolerating dialysis well. Mr. Christy was admitted with persistent soft tissue infection of the hand. He was treated with daptomycin and ertapenem. This is improving with antibiotics. There was concern for possible evolving pneumonia. Current antibiotics include aztreonam and vancomycin. Pain management for chronic and acute pain is improving. He is managing opiate induced constipation. Padilla developed an abdominal wall hematoma. Note that there is a warning associated with cabozantinib including severe and sometimes fatal hemorrhage. In March he was admitted with fever, SOB and desaturation due to pneumonia , left pleural effusion and possible pneumonitis. At that time treated with vancomycin, Zosyn and Levaquin, as well as left pleural tap and steroid taper. Previously could not tolerate Sutent due to high grade proteinuria and poorly- controlled hypertension. Unfortunately, Opdivo caused arthralgia, colitis and possible pneumonitis. 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
[2017-07-14 09:19] LABS: ALBUMIN 1.3 gm/dl (3.4-5.0); CALCIUM 8.4 mg/dl (8.5-10.1); CREATININE 3.5 mg/dl (0.60-1.40); PHOSPHORUS 3.2 mg/dl (2.5-4.9); POTASSIUM 4.8 mmol/L (3.5-5.1)
--- NOTE | 2017-07-14 09:31 | Palliative Care Progress Note ---
Palliative Care Progress Note Date of Service Jul 14, 2017. Subjective Pt evaluation today including: conversation w/ patient, physical exam, chart review, lab review, review of studies, conversation w/ change management consultant Pain: Increased in RLQ due to rectal sheath hematoma PO Intake: Fair Pt notes increased RLQ pAin - pt is not yet receiving his previous home dose of Methadone - he was increased from 10 mg TID to 20 mg BID on 06/20 . Some increase in pain is due to lower methadone dose. Review of Systems Constitutional: No fever Eyes: No worsening of vision ENT: No hearing loss, No sore throat Respiratory: No cough Cardiac: No chest pain Abdomen: + pain Musculoskeletal: + problem reported (generalized weakness) Neurologic: + weakness, + balance problems Psychiatric: No substance abuse Endo: + fatigue Objective Vital Signs Date Time Temp Pulse Resp B/P (MAP) Pulse Ox O2 Delivery O2 Flow Rate FiO2 07/14/17 08:02 36.8 78 18 136/72 (93) 98 4.0 07/14/17 00:09 36.9 92 18 116/66 (83) 96 Nasal Cannula 4.0 07/14/17 00:00 96 Nasal Cannula 4.0 07/13/17 16:00 Nasal Cannula 4.0 07/13/17 14:54 36.7 92 20 138/74 (95) 93 Nasal Cannula 4.0 07/13/17 14:19 84 129/75 (93) 07/13/17 14:10 36.7 75 132/57 (82) 07/13/17 14:00 81 110/69 07/13/17 13:45 90 108/71 07/13/17 13:30 80 110/67 07/13/17 13:15 85 102/71 07/13/17 13:00 76 105/69 07/13/17 12:45 82 109/80 07/13/17 12:30 79 104/68 07/13/17 12:15 80 110/71 07/13/17 12:00 84 104/65 07/13/17 11:45 91 109/69 07/13/17 11:30 93 103/77 07/13/17 11:15 89 116/82 07/13/17 11:00 87 109/68 07/13/17 10:45 78 137/62 07/13/17 10:30 83 128/76 07/13/17 10:22 36.4 81 143/70 (94) 07/13/17 09:45 91 Nasal Cannula 3.0 Physical Exam General Appearance: no apparent distress Eyes: EOMI ENT: hearing grossly normal Neck: supple Respiratory/Chest: + decreased breath sounds Cardiovascular: regular rate, rhythm Abdomen: + tenderness (RLQ abdominal wall) Neurologic/Psychiatric: alert, + depressed affect Laboratory Results Last 24 Hours Test 07/13/17 11:28 07/13/17 16:40 07/13/17 20:25 07/14/17 08:01 Bedside Glucose 129 mg/dl 92 mg/dl 124 mg/dl 76 mg/dl Test 07/14/17 08:29 White Blood Count 11.49 K/uL Red Blood Count 2.81 M/uL Hemoglobin 8.3 g/dL Hematocrit 25.9 % Mean Corpuscular Volume 92.2 fL Mean Corpuscular Hemoglobin 29.5 pg Mean Corpuscular Hemoglobin Concent 32.0 g/dl RDW Standard Deviation 77.7 fL RDW Coefficient of Variation 23.2 % Platelet Count 174 K/uL Mean Platelet Volume 10.5 fL Nucleated RBC Absolute Count (auto) 0.49 K/uL Nucleated Red Blood Cells % 4.2 % Assessment and Plan (1) Pain due to neoplasm Status: Chronic Assessment & Plan: Increase methadone to 20 mg BID, change oxycodone to 1- mg Q 4 hours prn - pt is very stoic and is not one to take more opioids than needed. (2) Cellulitis of left hand Status: Acute Assessment & Plan: improving (3) ESRD (end stage renal disease) on dialysis Status: Acute Assessment & Plan: Receiving dialysis - started dialysis on 06/12/2017, increased fatigue after dialysis (4) Hypoxemia requiring supplemental oxygen Status: Acute Assessment & Plan: CXR suggestive of infection - on Ab (5) High risk medication use Status: Acute Assessment & Plan: Pt on methadone and oxycodone for pain. Pt's pain much improved on methadone , pt has been able to be more active with good pain control and decreased sedation as an outpt I think pt would benefit from rehab at [facility] - can follow pt and work with pt and family on future care needs Palliative Performance Scale: 50 % Continued [facility] stay due to: ambulation difficulties Discharge planning: uncertain
[2017-07-14] MEDS: INSULIN ASPART 100 UNITS/ML 3 ML PEN SC SCH ×4 (09:55→20:35)
[2017-07-14] MEDS: ASPIRIN 81 MG ECTAB PO SCH (10:04)
[2017-07-14] MEDS: LACTOBACILLUS ACIDOPHILUS (FLORANEX) TAB PO SCH ×3 (10:05→20:34)
[2017-07-14] MEDS: FUROSEMIDE 40 MG TAB PO SCH (10:06)
[2017-07-14] MEDS: METOPROLOL TARTRATE 100 MG TAB PO SCH ×2 (10:06→20:31)
[2017-07-14] MEDS: POLYETHYLENE (MIRALAX) 17 GM PACK PO SCH (10:07)
[2017-07-14] MEDS: AMLODIPINE BESYLATE 5 MG TAB PO SCH (10:08)
[2017-07-14] MEDS: LISINOPRIL 40 MG TAB PO SCH (10:10)
[2017-07-14] MEDS: CALCITRIOL 0.25 MCG CAP PO SCH (10:10)
[2017-07-14] MEDS: CALCIUM CARBONATE 500 MG CHEWABLE PO SCH ×3 (10:10→17:50)
[2017-07-14] MEDS: METHADONE HCL 10 MG TAB PO SCH ×2 (10:11→20:33)
--- NOTE | 2017-07-14 11:31 | Pulmonary Consultation ---
History General Date of Service: Jul 14, 2017. Stated Complaint: Worsening Hand Cellulitis, New Gi Bleed HPI Patient is a 61 yo male with history of Renal Cell CA (clear cell and papillary ) s/p left nephrectomy with lymph node resection (2015), recurrent kimmie disease in the caridad-aortic region as well as near the hilum on the left, stage 4 CKD, Type 2 DM, HTN, and Hyperlipidemia. He was admitted to [facility] for concerns of worsening left hand cellulitis as a transfer from [facility]. He is being followed by infectious disease. He is currently on IV Vancomycin and Aztreonam. He was also diagnosed with C. Diff colitis during current admission and started on PO Vancomycin. During prior admission in March 2017, the patient was noted to have bilateral pleural effusions and possible rounded atelectasis versus pneumonia versus metastatic disease. His left-sided pleural effusion was tapped at that time by Dr. Ferreira. Pleural fluid analysis on 04/10/17: PF pH 7.43 PF Total Protein 1.2 PF LDH 90 PF glucose 142 PF Amylase 15 PF cholesterol <15 PF Mycobacterial and bacterial cultures were negative. Chest CT on 04/10/17: Flow reduction in left pleural fluid noted s/p thoracentesis. Small right pleural effusion also noted and decreased left sided effusion noted. Peribronchial opacities involving the TERRENCE and other areas were suggestive of multifocal pneumonia versus pneumonitis. These images were viewed by me today. The patient did follow up with Dr. Ferreira as an outpatient as well. He was treated with a high dose, slow tapering course of PO Prednisone for concerns of HEBREW PROFESSOR (cryptogenic organizing pneumonia) versus possible chemotherapy related lung injury. He has not followed up again since April. Since current admission, the patient continues to have SOB and cough on and off that is mild. He denies productive cough. He has not had a repeat CT scan but did have a Chest X-Ray on 07/11 which showed diffuse interstitial thickening and mild B/L opaceities L>R. Small right pleural effusion was noted. Images were viewed. Abdominal CT also noted some right lower lobe pleural effusion with probable rounded atelectasis versus consolidation. Labs reviewed 07/14: WBC 11.49 Hgb 8.3 Creatinine 3.50 BUN 40 C. Diff toxin positive. Urine culture negative. Patient currently on 4 L via nasal cannul. He is saturating well, but typically does not have home O2. Historian: patient Review of Systems Constitutional: denies: chills, diaphoresis Eyes: denies: eye pain ENT: denies: loss of hearing Cardiovascular: denies: chest pain, chest pressure, chest tightness Respiratory: reports: cough (mild on and off), shortness of breath, denies: wheezing, sputum production Gastrointestinal: reports: abdominal pain, diarrhea (C. 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 (8) Colitis (9) Diabetes type 2, controlled (10) H/O unilateral nephrectomy (11) Hypertension (12) Kidney disease, chronic, stage IV (GFR 15-29 ml/min) (13) Pain due to neoplasm (14) Pneumonia (15) Pneumonitis (16) Pyelonephritis (17) Renal cell carcinoma (18) Renal mass, left (19) Shortness of breath Family History Cervical cancer Diabetes mellitus Heart disease Hypertension Myocardial infarction Pancreatic cancer Prostate cancer Social History Hx Tobacco Use In Past Year?: No Smoking Status: Never Smoker Marital status: single Housing status: lives alone Occupational Status: disabled Immunizations History of Influenza Vaccine: Yes Influenza Vaccine Date: May 14, 2015 History of Tetanus Vaccine?: Yes Tetanus Immunization Date: Sep 14, 2011 History of Pneumococcal: Yes Pneumococcal Date: Sep 14, 2013 History of Hepatitis B Vaccine: No Date Of Other Immunizations: Sep 14, 2013 History of MDRO History of MDRO: No Allergies Coded Allergies: Iodinated Diagnostic Agents (Verified Allergy, Unknown, oil based, severe headaches, 06/20/17) EVENT OCCURED IN 1971, PT STATES HE HAS HAD 3 DIFFERENT WATER BASED IVP DYES WITH NO ISSUE Current Medications Reported Home Medications Medications Dose Route/Sig Max Daily Dose Days Date Category Dose Instructions Lisinopril 40 Mg Tab 1 Tab OR DAILY 30 06/24/17 Rx Floranex (Lactobacillus Acidophilus) 1 Tab Tab 2 Tabs OR TID 15 06/24/17 Rx Daptomycin 500 Mg Inj 350 Mg IV Q48H 10 06/22/17 Rx Lopressor (Metoprolol Tartrate) 100 Mg Tab 100 Mg PO BID 06/20/17 Reported Lantus Solostar (Insulin Glargine) 100 Unit/Ml Inj 14 Units SC HS 06/20/17 Reported Furosemide 40 Mg Tab 40 Mg PO QAM 06/20/17 Reported Humulin N Kwikpen (Insulin Isophane (Human)) 100 Unit/Ml Inj Units SC TID 06/20/17 Reported 1 UNIT/10 CARB Methadone HCl 10 Mg Tab 10 Mg PO TID 06/20/17 Reported Prednisone 10 Mg Tab 10 Mg PO TID 06/20/17 Reported Cabometyx (Cabozantinib S-Malate) 60 Mg Tab 60 Mg PO QAM 06/20/17 Reported Tums (Calcium Carbonate) 500 Mg Chew 500 Mg PO WM 06/20/17 Reported Oxycodone Hcl 10 Mg Tab 10 Mg PO TID 04/28/17 Reported Fentanyl 75 Mcg/Hr Dis 25 Patch TOP [id number] 04/28/17 Reported Apresoline (Hydralazine Hcl) 100 Mg Tab 100 Mg PO TID 04/28/17 Reported Aspirin Ec (Aspirin) 81 Mg Tab 81 Mg PO QAM 04/28/17 Reported Flomax (Tamsulosin Hcl) 0.4 Mg Cap 0.4 Mg PO HS 04/28/17 Reported Miralax (Polyethylene) 17 Gm Pow 17 Gm PO DAILY PRN 10 03/22/17 Rx Calcitriol 0.25 Mcg Cap 0.25 Mcg PO Q2D 03/09/17 Reported Norvasc (Amlodipine Besylate) 10 Mg Tab 10 Mg PO QAM 11/05/15 Reported Zocor (Simvastatin) 20 Mg Tab 20 Mg PO QPM 09/10/15 Reported Physical Physical Exam Vital Signs: Date Time Temp Pulse Resp B/P (MAP) Pulse Ox O2 Delivery O2 Flow Rate FiO2 07/14/17 08:02 36.8 78 18 136/72 (93) 98 4.0 07/14/17 00:09 36.9 92 18 116/66 (83) 96 Nasal Cannula 4.0 07/14/17 00:00 96 Nasal Cannula 4.0 07/13/17 16:00 Nasal Cannula 4.0 07/13/17 14:54 36.7 92 20 138/74 (95) 93 Nasal Cannula 4.0 07/13/17 14:19 84 129/75 (93) 07/13/17 14:10 36.7 75 132/57 (82) 07/13/17 14:00 81 110/69 07/13/17 13:45 90 108/71 07/13/17 13:30 80 110/67 07/13/17 13:15 85 102/71 07/13/17 13:00 76 105/69 07/13/17 12:45 82 109/80 07/13/17 12:30 79 104/68 07/13/17 12:15 80 110/71 07/13/17 12:00 84 104/65 07/13/17 11:45 91 109/69 07/13/17 11:30 93 103/77 General Appearance: WD/WN, NO APPARENT DISTRESS Head: NORMOCEPHALIC, ATRAUMATIC Eyes: NO DISCHARGE, CONJUNCTIVAE NORMAL Neck: NORMAL RANGE OF MOTION, TRACHEA MIDLINE Respiratory: BREATH SOUNDS NORMAL, NO RESPIRATORY DISTRESS, other (no audible crackles, rhonchi) Cardiovasular: REGULAR RATE/RHYTHM Abdomen: NORMAL BOWEL SOUNDS Lower Extremities: other (trace edema b/l LE) Neuro: ALERT, ORIENTED x 3 Psychiatric: NORMAL AFFECT Diagnostics Labs Results Past 24 Hours Test 07/13/17 11:28 07/13/17 16:40 07/13/17 20:25 07/14/17 08:01 Range/Units Bedside Glucose 129 92 124 76 70-99 mg/dl Test 07/14/17 08:29 Range/Units White Blood Count 11.49 4.8-10.8 K/uL Red Blood Count 2.81 4.7-6.1 M/uL Hemoglobin 8.3 14.0-18.0 g/dL Hematocrit 25.9 42-52 % Mean Corpuscular Volume 92.2 80-100 fL Mean Corpuscular Hemoglobin 29.5 25-34 pg Mean Corpuscular Hemoglobin Concent 32.0 32-36 g/dl RDW Standard Deviation 77.7 36.4-46.3 fL RDW Coefficient of Variation 23.2 11.5-14.5 % Platelet Count 174 130-400 K/uL Mean Platelet Volume 10.5 7.4-10.4 fL Nucleated RBC Absolute Count (auto) 0.49 0-0 K/uL Nucleated Red Blood Cells % 4.2 % Sodium Level 136 136-145 mmol/L Potassium Level 4.8 3.5-5.1 mmol/L Chloride Level 105 98-107 mmol/L Carbon Dioxide Level 27 21-32 mmol/L Anion Gap 5.0 3-11 mmol/L Blood Urea Nitrogen 40 7-18 mg/dl Creatinine 3.50 0.60-1.40 mg/dl Est Creatinine Clear Calc Drug Dose 22.3 ml/min Estimated GFR () 20.3 Estimated GFR (Non- 17.5 BUN/Creatinine Ratio 11.3 10-20 Random Glucose 65 70-99 mg/dl Calcium Level 8.4 8.5-10.1 mg/dl Phosphorus Level 3.2 2.5-4.9 mg/dl Albumin 1.3 3.4-5.0 gm/dl Diagnostic Radiology ABDOMEN AND PELVIS CT WITHOUT CONTRAST CT DOSE: 515.82 mGy.cm HISTORY: Acute right lower quadrant abdominal pain with history of metastatic renal cell carcinoma metastatic RCC, abdominal pain, c diff. Prior left-sided nephrectomy TECHNIQUE: Multiaxial CT images of the abdomen and pelvis were performed without contrast. A dose lowering technique was utilized adhering to the principles of ALARA. COMPARISON STUDY: CT chest, abdomen and pelvis 05/19/2017. FINDINGS: Trace left pleural effusion with slightly increased size of small right pleural effusion. Multifocal patchy groundglass opacities of the lung bases are noted in addition to consolidation of the right lower and middle lobes. The consolidation of the right lower lobe with adjacent to the area of previously described right lower lobe pleural-parenchymal scarring. There is of peripheral consolidation are noted within the lung bases, left greater than right. Imaged inferior cardiac chambers are unremarkable. Coronary arterial disease. Evaluation of the solid abdominal organs is limited without the use of IV contrast. Gallbladder is partially collapsed. Nonspecific pericholecystic inflammatory stranding. Spleen, pancreas and right adrenal gland are unremarkable. Prior left-sided nephrectomy. Multiple indeterminate right-sided renal lesions redemonstrated including a 3.6 x 2.8 cm ovoid lesion with Hounsfield unit of 58, possibly reflecting a hemorrhagic or proteinaceous cyst with similar appearing 9 mm lesion noted within the superior pole, image 160 series 3. Probable cyst measuring 3.2 cm is noted within the superior pole right kidney with layering milk of calcium. Mild right-sided perinephric stranding. No right-sided hydronephrosis. The right ureter, urinary bladder and prostate are unremarkable. Moderate atherosclerosis of the abdominal aorta. Mildly prominent left retrocrural lymph node is again seen, 1.2 x 0.8 cm, previously 1.7 x 1.1 cm. Enlarged periaortic lymph node on image 205 series 3 measures 1.8 x 1.4 cm, previously 2.5 x 1.7 cm. Additionally, there is decreased size of the retroperitoneal lymph node just anteriorly now measuring 8 mm, previously 10 mm. No new adenopathy identified. Mild gastric distention. No bowel obstruction. Indeterminate 11 mm soft tissue nodule of the left upper abdomen suggests possible small bowel diverticulum. Prior partial sigmoid colon resection. Mild colonic diverticulosis with very minimal stranding noted adjacent to the descending sigmoid colon junction likely incidental. Minimal stranding adjacent to the greater curvature of the stomach is also noted, likely incidental well. Hyperattenuating focus of the right rectus sheath measures 1.5 x 3.0 x 5.4 cm in AP, transverse and craniocaudal dimension. No definite suspicious lytic or blastic bony lesions identified. Unchanged partially sclerotic lucent focus of the right iliac bone. IMPRESSION: 1. Small right rectus sheath hematoma measuring up to 5.4 cm in length. 2. Small right and trace left pleural effusions with right lower and right middle lobe consolidation. Multifocal groundglass opacities involving the bilateral lung bases suspicious for pneumonitis. 3. Decreased size of left retrocrural and retroperitoneal lymph nodes as above. No new or progressive adenopathy identified. 4. Prior left-sided nephrectomy. 5. Multiple indeterminate lesions of the right kidney redemonstrated, unchanged from comparison. CHEST 2 VIEWS ROUTINE CLINICAL HISTORY: KUB detected opacity. COMPARISON STUDY: Chest radiograph April 20, [address] May 19, 2017. FINDINGS: A right internal jugular [id number] is in place. There is no pneumothorax. A small right pleural effusion is noted with pleural fluid along the minor fissure. Diffuse interstitial thickening is noted with mild bilateral opacities, greater on the left. Cardiomediastinal silhouette is stable. IMPRESSION: 1. Diffuse interstitial thickening and mild bilateral opacities, greater on the left. The findings could reflect pulmonary edema or an infectious process. 2. Small right pleural effusion. Impression Assessment and Plan Acute Hypoxic Respiratory Failure Right sided pleural effusion versus rounded atelectasis Bilateral lung opacities Renal Cell Carcinoma CKD on hemodialysis Possible Cryptogenic Organizing Pneumonia Patient with continued opacification and possible consolidative changes versus rounded atelectasis of the right lung base. He also has acute hypoxic respiratory failure requiring O2. Patient is currently on IV Aztreonam and Vancomycin for cellulitis. Continue current abx therapy. Will repeat Chest CT to get a better view of the lungs to better determine if any further intervention is required from a Pulmonary standpoint. Current dose of Prednisone is 10 mg BID. Consider increased to 40 mg daily with a tapering course pending Chest CT. If he appears to have continued pneumonitis versus HEBREW PROFESSOR, higher dose of prednisone may be beneficial. Patient denies problems swallowing or coughing while eating/drinking. If opacities are lower lung predominant, could consider swallow evaluation to determine if patient is aspirating. Continue O2 supplementation to maintain SaO2 >92%. He will require a 2 step prior to discharge. Continued opacities and effusion in lungs could also be secondary to fluid overload and CKD. Continue dialysis as scheduled. Consider taking off more fluid if the patient's BP tolerates. Pulmonary will follow. Addendum (Rita Huff PA-C) After reviewing CT scan of chest, will add 30 mg prednisone today and start 40 mg daily tomorrow morning. Feel that patient likely has drug-induced pneumonitis versus HEBREW PROFESSOR, and higher dose of prednisone will help. Recommend tapering by 10 mg weekly if patient tolerates. Will also change abx from IV Aztreonam to IV Zosyn to include anaerobic coverage due to bibasilar pneumonitis /questionable multifocal pneumonia. Consider speech eval/swallow eval.
--- NOTE | 2017-07-14 13:04 | DIAGNOSTIC IMAGING REPORT ---
CT OF THE CHEST WITHOUT IV CONTRAST CLINICAL HISTORY: Shortness of breath and cough. Possible cryptogenic organizing pneumonia. History of pleural effusions. Metastatic renal cell carcinoma. COMPARISON STUDY: Chest CT May 19, 2017 and chest radiograph July 11, 2017. CT DOSE: 561.10 mGycm TECHNIQUE: Axial images of the chest were obtained without IV contrast. Images were reviewed in the axial, sagittal, and coronal planes. IV contrast was not administered for this examination. A dose lowering technique was utilized adhering to the principles of ALARA. FINDINGS: Small right and trace left pleural effusions are noted. These have increased since exam of May 19, 2017. A right internal jugular [id number] is in place. No enlarged axillary, mediastinal or hilar lymph nodes are present. Mild cardiomegaly is noted. There is no pericardial effusion. There is no pneumothorax. Central airways are patent. There has been interval development of extensive groundglass opacities throughout the lungs when compared to CT of May 19, 2017. In addition, there has been interval development of multifocal consolidation within the superior segment of the right lower lobe as well as the right middle lobe with volume loss. Additional numerous subpleural airspace opacities are noted throughout the lungs. No cavitation is present. There is no honeycombing. No suspicious osseous lesions are present within the bony thorax. A 1.1 cm retrocrural lymph node shown image 313 of 326 has decreased in size since CT of May 19, 2017 when it measured 1.3 cm. A few indeterminate right renal lesions are depicted on recent CT of the abdomen and pelvis. IMPRESSION: 1. Interval development of extensive groundglass opacity and multifocal consolidation since CT of May 19, 2017. This may reflect multifocal pneumonia. However, this pattern raises the possibility of cryptogenic organizing pneumonia/drug related pneumonitis, particularly if recent chemotherapy for metastatic renal cell carcinoma. 2. Small right and trace left pleural effusions. 3. Interval decrease in size of a retrocrural lymph node since CT of May 19, 2017. Electronically signed by: Lei Gan M.D. 07/14/2017 1:03 PM Dictated Date/Time: 07/14/2017 12:48 PM
[2017-07-14 14:38] VITALS: BP 125/71; PULSE 76; TEMP 36.8; O2SAT 98
--- NOTE | 2017-07-14 14:50 | Infectious Disease Progress Nt ---
Progress Note Date of Service Jul 14, 2017. Subjective Pt evaluation today including: conversation w/ patient, physical exam, chart review, lab review, review of studies, conversation w/ immigration consultant, review of inpatient medication list Recent events reviewed. Patient has developed evidence of pneumonia, as well as C difficile colitis and rectus sheath hematoma. Complaining of abdominal pain in the area of his hematoma. No worsening shortness of breath. Left hand pain and swelling improved. All Other Systems: Reviewed and Negative Medications Current Inpatient Medications Medications (Trade) Dose Ordered Sig/Edward Route Start Time Stop Time Status Last Admin Dose Admin Acetaminophen (Tylenol Tab) 650 mg Q4H PRN PO 07/05/17 21:45 08/04/17 21:44 07/11/17 21:21 650 MG Amlodipine Besylate (Norvasc Tab) 10 mg QAM PO 07/06/17 09:00 08/05/17 08:59 07/14/17 10:08 10 MG Aspirin (Ecotrin Tab) 81 mg QAM PO 07/06/17 09:00 08/05/17 08:59 07/14/17 10:04 81 MG Calcitriol (Rocaltrol Cap) 0.25 mcg Q2D PO 07/06/17 09:00 08/05/17 08:59 07/14/17 10:10 0.25 MCG Furosemide (Lasix Tab) 40 mg QAM PO 07/06/17 09:00 08/05/17 08:59 07/14/17 10:06 40 MG Hydralazine HCl (Apresoline Tab) 100 mg TID PO 07/06/17 09:00 08/05/17 08:59 07/14/17 10:03 100 MG Lactobacillus Acidophilus (Floranex Tab) 2 tab TID PO 07/06/17 09:00 08/05/17 08:59 07/14/17 10:05 2 TAB Lisinopril (Zestril Tab) 40 mg DAILY PO 07/06/17 09:00 08/05/17 08:59 07/14/17 10:10 40 MG Metoprolol Tartrate (Lopressor Tab) 150 mg BID PO 07/06/17 09:00 08/05/17 08:59 07/14/17 10:06 150 MG Prednisone (PredniSONE TAB) 10 mg BID PO 07/06/17 09:00 08/05/17 08:59 07/14/17 10:09 10 MG Simvastatin (Zocor Tab) 20 mg QPM PO 07/06/17 21:00 08/05/17 20:59 07/13/17 20:54 20 MG Tamsulosin HCl (Flomax Cap) 0.4 mg HS PO 07/06/17 21:00 08/05/17 20:59 07/13/17 20:55 0.4 MG Cabozantinib (Cabometyx) 60 mg DAILY@0500 PO 07/06/17 05:00 08/05/17 04:59 07/14/17 05:26 60 MG Insulin Aspart (novoLOG ASPART) SLIDING SCALE G... ACHS SC 07/06/17 07:00 08/05/17 06:59 07/11/17 09:09 1 UNITS Miscellaneous Information (Check Fentanyl Patch Placement) 1 ea QS N/A 07/06/17 08:00 08/05/17 07:59 07/14/17 08:00 1 EA Glucose (Glucose 40% Gel) 15-30 GRAMS 15 GRAMS... UD PRN PO 07/06/17 04:15 08/05/17 04:14 Glucose (Glucose Chew Tab) 4-8 Tablets 4 Tabl... UD PRN PO 07/06/17 04:15 08/05/17 04:14 Dextrose (Dextrose 50% 50ML Syringe) 25-50ML OF 50% DW IV FOR... UD PRN IV 07/06/17 04:15 08/05/17 04:14 07/06/17 05:40 25 ML Glucagon (Glucagon Inj) 1 mg UD PRN SQ 07/06/17 04:15 08/05/17 04:14 Insulin Glargine (Lantus Solostar Pen) 7 units HS SC 07/06/17 21:00 08/05/17 20:59 07/13/17 20:57 7 UNITS Enteral Nutritional Formula (Boost Glucose Control) 1 can BIDM PO 07/06/17 16:45 08/05/17 16:44 07/14/17 08:00 1 CAN Miscellaneous (Fentanyl Patch Remove & Waste) 1 ea Q3D N/A 07/10/17 01:00 08/09/17 00:59 07/13/17 01:06 1 EA Fentanyl (Duragesic Patch) 25 mcg Q3D TD 07/07/17 01:00 07/21/17 00:59 07/13/17 01:04 25 MCG Heparin Sodium (Porcine) (Heparin 100 Unit/ml 5ml Flush) 5 ml PRN PRN IV 07/07/17 02:45 08/06/17 02:44 07/14/17 11:24 5 ML Calcium Carbonate (Tums Chew Tab) 500 mg TIDM PO 07/07/17 17:00 08/05/17 08:59 07/14/17 10:10 500 MG Ondansetron HCl (Zofran Inj) 4 mg Q4H PRN IV 07/11/17 03:00 08/10/17 02:59 07/12/17 20:50 4 MG Ondansetron HCl (Zofran Tab) 4 mg Q6H PRN PO 07/11/17 10:15 08/10/17 10:14 Prochlorperazine Edisylate 5 mg/ Syringe 5 ml @ 5 mls/min Q4H PRN IV 07/11/17 14:00 08/10/17 13:59 Lactulose (Chronulac Syrup) 30 gm Q4H PRN PO 07/11/17 16:45 08/10/17 16:44 Senna (Senokot Tab) 8.6 mg QAM PO 07/12/17 08:00 08/11/17 07:59 Polyethylene (Miralax Powder Packet) 17 gm DAILY PO 07/11/17 16:45 08/05/17 02:29 07/14/17 10:07 17 GM Vancomycin HCl (Vancomycin Oral Soln) 250 mg Q6H PO 07/12/17 17:00 07/26/17 16:59 07/14/17 11:26 250 MG Raspberry (Raspberry Syrup 5ml Cup) 5 ml Q6H PO 07/12/17 17:00 07/26/17 16:59 07/14/17 11:25 5 ML Pantoprazole Sodium (Protonix Tab) 40 mg QAM PO 07/14/17 08:00 07/14/17 23:59 07/14/17 10:09 40 MG Vancomycin HCl (Consult) 1 ea UD PRN N/A 07/13/17 17:00 08/12/17 16:59 Aztreonam (Consult) 1 ea UD PRN N/A 07/13/17 17:00 08/12/17 16:59 Aztreonam 500 mg/ Dextrose 55 ml @ 110 mls/hr Q12H IV 07/14/17 09:00 07/20/17 17:59 07/14/17 10:13 110 MLS/HR Oxycodone HCl (Roxicodone Immediate Rel Tab) 10 mg Q4H PRN PO 07/14/17 09:15 08/05/17 08:59 07/14/17 10:12 10 MG Methadone HCl (Dolophine Tab) 20 mg BID PO 07/14/17 09:30 07/28/17 09:29 07/14/17 10:11 20 MG Objective Vital Signs Date Time Temp Pulse Resp B/P (MAP) Pulse Ox O2 Delivery O2 Flow Rate FiO2 07/14/17 14:38 36.8 76 18 125/71 (89) 98 4.0 07/14/17 08:02 36.8 78 18 136/72 (93) 98 4.0 07/14/17 08:00 Nasal Cannula 4.0 07/14/17 00:09 36.9 92 18 116/66 (83) 96 Nasal Cannula 4.0 07/14/17 00:00 96 Nasal Cannula 4.0 07/13/17 16:00 Nasal Cannula 4.0 07/13/17 14:54 36.7 92 20 138/74 (95) 93 Nasal Cannula 4.0 Physical Exam General Appearance: WD/WN, no apparent distress Eyes: normal inspection, EOMI, sclerae normal ENT: normal ENT inspection, pharynx normal Neck: supple, no adenopathy, trachea midline Respiratory/Chest: chest non-tender, lungs clear, normal breath sounds, no respiratory distress Cardiovascular: regular rate, rhythm, no gallop, no murmur Abdomen: normal bowel sounds, soft, no organomegaly, + tenderness (In area of hematoma) Extremities: non-tender, no calf tenderness Neurologic/Psychiatric: alert, oriented x 3 Skin: normal color, no rash, + pertinent finding (Ecchymosis abdominal wall) Lymphatic: no adenopathy Laboratory Results Date/Time Source Procedure Growth Status 07/14/17 11:25 Nasal MRSA DNA Surveillance Screen - Final Specimen Negative for MRSA by DNA Probe Complete Last 24 Hours Test 07/13/17 16:40 07/13/17 20:25 07/14/17 08:01 07/14/17 08:29 Bedside Glucose 92 mg/dl 124 mg/dl 76 mg/dl White Blood Count 11.49 K/uL Red Blood Count 2.81 M/uL Hemoglobin 8.3 g/dL Hematocrit 25.9 % Mean Corpuscular Volume 92.2 fL Mean Corpuscular Hemoglobin 29.5 pg Mean Corpuscular Hemoglobin Concent 32.0 g/dl RDW Standard Deviation 77.7 fL RDW Coefficient of Variation 23.2 % Platelet Count 174 K/uL Mean Platelet Volume 10.5 fL Nucleated RBC Absolute Count (auto) 0.49 K/uL Nucleated Red Blood Cells % 4.2 % Sodium Level 136 mmol/L Potassium Level 4.8 mmol/L Chloride Level 105 mmol/L Carbon Dioxide Level 27 mmol/L Anion Gap 5.0 mmol/L Blood Urea Nitrogen 40 mg/dl Creatinine 3.50 mg/dl Est Creatinine Clear Calc Drug Dose 22.3 ml/min Estimated GFR () 20.3 Estimated GFR (Non- 17.5 BUN/Creatinine Ratio 11.3 Random Glucose 65 mg/dl Calcium Level 8.4 mg/dl Phosphorus Level 3.2 mg/dl Albumin 1.3 gm/dl Test 07/14/17 11:27 Bedside Glucose 155 mg/dl CT OF THE CHEST WITHOUT IV CONTRAST CLINICAL HISTORY: Shortness of breath and cough. Possible cryptogenic organizing pneumonia. History of pleural effusions. Metastatic renal cell carcinoma. COMPARISON STUDY: Chest CT May 19, 2017 and chest radiograph July 11, 2017. CT DOSE: 561.10 mGycm TECHNIQUE: Axial images of the chest were obtained without IV contrast. Images were reviewed in the axial, sagittal, and coronal planes. IV contrast was not administered for this examination. A dose lowering technique was utilized adhering to the principles of ALARA. FINDINGS: Small right and trace left pleural effusions are noted. These have increased since exam of May 19, 2017. A right internal jugular [id number] is in place. No enlarged axillary, mediastinal or hilar lymph nodes are present. Mild cardiomegaly is noted. There is no pericardial effusion. There is no pneumothorax. Central airways are patent. There has been interval development of extensive groundglass opacities throughout the lungs when compared to CT of May 19, 2017. In addition, there has been interval development of multifocal consolidation within the superior segment of the right lower lobe as well as the right middle lobe with volume loss. Additional numerous subpleural airspace opacities are noted throughout the lungs. No cavitation is present. There is no honeycombing. No suspicious osseous lesions are present within the bony thorax. A 1.1 cm retrocrural lymph node shown image [phone] of [id number] has decreased in size since CT of May 19, 2017 when it measured 1.3 cm. A few indeterminate right renal lesions are depicted on recent CT of the abdomen and pelvis. IMPRESSION: 1. Interval development of extensive groundglass opacity and multifocal consolidation since CT of May 19, 2017. This may reflect multifocal pneumonia. However, this pattern raises the possibility of cryptogenic organizing pneumonia/drug related pneumonitis, particularly if recent chemotherapy for metastatic renal cell carcinoma. 2. Small right and trace left pleural effusions. 3. Interval decrease in size of a retrocrural lymph node since CT of May 19, 2017. Electronically signed by: Lei Gan M.D. 07/14/2017 1:03 PM Dictated Date/Time: 07/14/2017 12:48 PM The status of this report is Signed. Draft = Not yet reviewed or approved by Radiologist. 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 (2) Cellulitis of left hand Status: Acute improving (3) ESRD (end stage renal disease) on dialysis Status: Acute Receiving dialysis - started dialysis on 06/12/2017, increased fatigue after dialysis (4) Hypoxemia requiring supplemental oxygen Status: Acute CXR suggestive of infection - on Ab (5) High risk medication use Status: Acute 61-year-old male with previous cellulitis of the left hand and forearm after injury from a drill bit, with improvement initially with IV antibiotics, but then with recurrent redness and swelling with increasing pain. Now improved after addition of steroid therapy. Not clear whether patient suffering from reflex sympathetic dystrophy syndrome or whether this is just persistent cellulitis. Has now developed evidence of progressive pneumonitis, not clear whether this is infectious or drug induced. Patient also with C difficile colitis. Patient to continue on current antibiotic therapy and oral vancomycin. Will follow.
[2017-07-14] MEDS ORDERED: PIPERACILL/TAZOBAC CONSULT ACTIVE PRN (15:15)
[2017-07-14] MEDS ORDERED: PIPERACILL/TAZOBAC IV 3.375 GM in DEXTROSE 5% 100ML IV ONE (15:30)
[2017-07-14 20:00] VITALS: O2SAT 96
[2017-07-14 20:28] VITALS: BP 132/69; PULSE 80; TEMP 36.7; O2SAT 96
[2017-07-14] MEDS: SIMVASTATIN 20 MG TAB PO SCH (20:32)
[2017-07-14] MEDS: TAMSULOSIN HCL 0.4 MG CAP PO SCH (20:32)
[2017-07-14] MEDS: INSULIN GLARGINE SOLOSTAR 100 UNITS/ML 3 ML PEN SC SCH (20:41)
[2017-07-14] MEDS: PIPERACILL/TAZOBAC IV 3.375 GM in DEXTROSE 5% 100ML 100 ML IV SCH (22:37)
[2017-07-15] VITALS (25 sets, daily range): BP systolic 73–146; BP diastolic 58–90; PULSE 62–96; TEMP 36.3–36.8; O2SAT 93–99
[2017-07-15] MEDS: RASPBERRY SYRUP 5 ML UDP PO SCH ×4 (05:32→22:32)
[2017-07-15] MEDS: VANCOMYCIN HCL 250 MG/5 ML SOLN PO SCH ×2 (05:32→13:17)
[2017-07-15] MEDS: CABOZANTINIB S MALATE 60 MG PO SCH (05:33)
[2017-07-15 05:58] LABS: HEMOGLOBIN 8.2 g/dL (14.0-18.0); MEAN CELL VOLUME 91.2 fL (80-100); MEAN CORPUSCULAR HEMOGLOBIN 29.9 pg (25-34); MEAN CORPUSCULAR HGB CONC 32.8 g/dl (32-36); MEAN PLATELET VOLUME 10.1 fL (7.4-10.4); NUCLEATED RED BLOOD CELL ABS 0.45 K/uL (0-0); PLATELET COUNT 171 K/uL (130-400); RED CELL DISTRIBUTION WIDTH CV 23.6 % (11.5-14.5); RED CELL DISTRIBUTION WIDTH SD 78.2 fL (36.4-46.3); WHITE BLOOD COUNT 8.28 K/uL (4.8-10.8)
[2017-07-15 06:25] LABS: ALBUMIN 1.3 gm/dl (3.4-5.0); CALCIUM 8.4 mg/dl (8.5-10.1); CREATININE 4.25 mg/dl (0.60-1.40)
[2017-07-15 06:27] LABS: PHOSPHORUS 4.3 mg/dl (2.5-4.9)
[2017-07-15] MEDS: FUROSEMIDE 40 MG TAB PO SCH (08:00)
[2017-07-15] MEDS: SENNA 8.6 MG TAB PO SCH (08:00)
[2017-07-15] MEDS: BOOST GLUCOSE CONTROL PO SCH ×2 (08:00→17:29)
[2017-07-15] MEDS: CHECK FENTANYL PATCH PLACEMENT SCH ×2 (08:00→16:03)
[2017-07-15] MEDS: AMLODIPINE BESYLATE 5 MG TAB PO SCH (08:00)
[2017-07-15] MEDS: METOPROLOL TARTRATE 100 MG TAB PO SCH ×2 (08:00→20:37)
[2017-07-15] MEDS: LISINOPRIL 40 MG TAB PO SCH (08:00)
[2017-07-15] MEDS: POLYETHYLENE (MIRALAX) 17 GM PACK PO SCH (08:00)
[2017-07-15] MEDS: METHADONE HCL 10 MG TAB PO SCH ×2 (08:33→20:35)
[2017-07-15] MEDS: CALCIUM CARBONATE 500 MG CHEWABLE PO SCH ×3 (08:37→17:27)
[2017-07-15] MEDS: LACTOBACILLUS ACIDOPHILUS (FLORANEX) TAB PO SCH ×3 (08:37→20:40)
[2017-07-15] MEDS: INSULIN ASPART 100 UNITS/ML 3 ML PEN SC SCH ×4 (08:47→20:24)
[2017-07-15] MEDS: OXYCODONE HCL IR 5 MG TAB (IMMEDIATE RELEASE) PO PRN ×3 (08:51→13:17)
--- NOTE | 2017-07-15 12:45 | Nephrology Progress Note ---
Nephrology Progress Note Date of Service Jul 15, 2017. Chief Complaint ESRD Subjective No acute events overnight. Padilla was seen and evaluated during hemodialysis this morning. He reports tolerating the treatment well. Padilla is very tired this morning. He continues to feel weak. Appetite is poor. He denies abdominal pain, nausea or diarrhea. He denies fevers or chills. Edema in his left hand is improving. BP is soft but acceptable. Qb appropriate. TMP slightly increased. No clots. Heparin held with HD due to abdominal wall hematoma. Plan of care was discussed with Dr. Falk this morning. At Padilla's request, I had an extended conversation with the patient's significant other (Eulalia) yesterday. Chest CT personally reviewed this morning. Pulmonology recs also noted. Review of Systems A complete review of systems was performed. Pertinent positives are noted above. All other systems are negative. Vital Signs Last 8 Hrs Date Time Temp Pulse Resp B/P (MAP) Pulse Ox O2 Delivery O2 Flow Rate FiO2 07/15/17 12:15 96 97/80 07/15/17 12:00 86 91/58 07/15/17 11:45 77 113/78 07/15/17 11:30 86 106/69 07/15/17 11:15 62 96/59 07/15/17 11:00 75 146/90 07/15/17 10:45 70 129/69 07/15/17 10:30 78 116/66 07/15/17 10:15 80 127/62 07/15/17 10:00 78 105/74 07/15/17 09:45 79 129/68 07/15/17 09:30 73 131/77 07/15/17 09:07 36.3 72 142/79 (100) 07/15/17 07:33 36.5 76 16 132/64 (86) 99 Nasal Cannula 4.0 Last Recorded Weight Weight (Kilograms): 85.700 Physical Exam General Appearance: WD/WN, no apparent distress Head: normocephalic, atraumatic Eyes: normal inspection, sclerae normal ENT: normal ENT inspection, pharynx normal, + pertinent finding (oral mucosa slightly dry) Neck: supple, no JVD Respiratory/Chest: lungs clear, no respiratory distress, + decreased breath sounds Cardiovascular: regular rate, rhythm, no gallop, no murmur Abdomen/GI: non tender, soft Extremities/Musculoskelatal: normal inspection, no pedal edema Neurologic/Psych: alert, normal mood/affect Family History Cervical cancer Diabetes mellitus Heart disease Hypertension Myocardial infarction Pancreatic cancer Prostate cancer Negative for CKD/ESRD Social History Smokeless Tobacco Use: No Alcohol Use: none Drug Use: none Marital Status: single Housing Status: lives alone Occupation: disabled Single, retired. Formerly worked for [employer] Never a smoker. Laboratory Results Past 24 Hours 07/15/17 05:40 07/15/17 05:40 Test 07/14/17 16:15 07/14/17 20:19 07/15/17 02:30 07/15/17 05:40 Bedside Glucose 109 mg/dl (70-99) 163 mg/dl (70-99) Stool Occult Blood NEGATIVE (NEGATIVE) Red Blood Count 2.74 M/uL (4.7-6.1) Mean Corpuscular Volume 91.2 fL (80-100) Mean Corpuscular Hemoglobin 29.9 pg (25-34) Mean Corpuscular Hemoglobin Concent 32.8 g/dl (32-36) RDW Standard Deviation 78.2 fL (36.4-46.3) RDW Coefficient of Variation 23.6 % (11.5-14.5) Mean Platelet Volume 10.1 fL (7.4-10.4) Nucleated RBC Absolute Count (auto) 0.45 K/uL (0-0) Nucleated Red Blood Cells % 5.5 % Anion Gap 8.0 mmol/L (3-11) Est Creatinine Clear Calc Drug Dose 18.4 ml/min Estimated GFR () 16.1 Estimated GFR (Non- 13.9 BUN/Creatinine Ratio 11.3 (10-20) Calcium Level 8.4 mg/dl (8.5-10.1) Phosphorus Level 4.3 mg/dl (2.5-4.9) Ammonia 26.4 umol/L (11-32) Albumin 1.3 gm/dl (3.4-5.0) Random Vancomycin Level 18.7 mcg/ml Test 07/15/17 07:51 07/15/17 11:25 Bedside Glucose 230 mg/dl (70-99) 140 mg/dl (70-99) Allergies Coded Allergies: Iodinated Diagnostic Agents (Verified Allergy, Unknown, oil based, severe headaches, 06/20/17) EVENT OCCURED IN 1971, PT STATES HE HAS HAD 3 DIFFERENT WATER BASED IVP DYES WITH NO ISSUE Medications Current Inpatient Medications Medications (Trade) Dose Ordered Sig/Edward Route Start Time Stop Time Status Last Admin Dose Admin Acetaminophen (Tylenol Tab) 650 mg Q4H PRN PO 07/05/17 21:45 08/04/17 21:44 07/11/17 21:21 650 MG Amlodipine Besylate (Norvasc Tab) 10 mg QAM PO 07/06/17 09:00 08/05/17 08:59 07/14/17 10:08 10 MG Aspirin (Ecotrin Tab) 81 mg QAM PO 07/06/17 09:00 08/05/17 08:59 07/14/17 10:04 81 MG Calcitriol (Rocaltrol Cap) 0.25 mcg Q2D PO 07/06/17 09:00 08/05/17 08:59 07/14/17 10:10 0.25 MCG Furosemide (Lasix Tab) 40 mg QAM PO 07/06/17 09:00 08/05/17 08:59 07/14/17 10:06 40 MG Hydralazine HCl (Apresoline Tab) 100 mg TID PO 07/06/17 09:00 08/05/17 08:59 07/14/17 20:32 100 MG Lactobacillus Acidophilus (Floranex Tab) 2 tab TID PO 07/06/17 09:00 08/05/17 08:59 07/15/17 08:37 2 TAB Lisinopril (Zestril Tab) 40 mg DAILY PO 07/06/17 09:00 08/05/17 08:59 07/14/17 10:10 40 MG Metoprolol Tartrate (Lopressor Tab) 150 mg BID PO 07/06/17 09:00 08/05/17 08:59 07/14/17 20:31 150 MG Simvastatin (Zocor Tab) 20 mg QPM PO 07/06/17 21:00 08/05/17 20:59 07/14/17 20:32 20 MG Tamsulosin HCl (Flomax Cap) 0.4 mg HS PO 07/06/17 21:00 08/05/17 20:59 07/14/17 20:32 0.4 MG Cabozantinib (Cabometyx) 60 mg DAILY@0500 PO 07/06/17 05:00 08/05/17 04:59 07/15/17 05:33 60 MG Insulin Aspart (novoLOG ASPART) SLIDING SCALE G... ACHS SC 07/06/17 07:00 08/05/17 06:59 07/15/17 08:47 2 UNITS Miscellaneous Information (Check Fentanyl Patch Placement) 1 ea QS N/A 07/06/17 08:00 08/05/17 07:59 07/15/17 08:00 1 EA Glucose (Glucose 40% Gel) 15-30 GRAMS 15 GRAMS... UD PRN PO 07/06/17 04:15 08/05/17 04:14 Glucose (Glucose Chew Tab) 4-8 Tablets 4 Tabl... UD PRN PO 07/06/17 04:15 08/05/17 04:14 Dextrose (Dextrose 50% 50ML Syringe) 25-50ML OF 50% DW IV FOR... UD PRN IV 07/06/17 04:15 08/05/17 04:14 07/06/17 05:40 25 ML Glucagon (Glucagon Inj) 1 mg UD PRN SQ 07/06/17 04:15 08/05/17 04:14 Insulin Glargine (Lantus Solostar Pen) 7 units HS SC 07/06/17 21:00 08/05/17 20:59 07/14/17 20:41 7 UNITS Enteral Nutritional Formula (Boost Glucose Control) 1 can BIDM PO 07/06/17 16:45 08/05/17 16:44 07/15/17 08:00 1 CAN Miscellaneous (Fentanyl Patch Remove & Waste) 1 ea Q3D N/A 07/10/17 01:00 08/09/17 00:59 07/13/17 01:06 1 EA Fentanyl (Duragesic Patch) 25 mcg Q3D TD 07/07/17 01:00 07/21/17 00:59 07/13/17 01:04 25 MCG Heparin Sodium (Porcine) (Heparin 100 Unit/ml 5ml Flush) 5 ml PRN PRN IV 07/07/17 02:45 08/06/17 02:44 07/15/17 05:40 5 ML Calcium Carbonate (Tums Chew Tab) 500 mg TIDM PO 07/07/17 17:00 08/05/17 08:59 07/15/17 08:37 500 MG Ondansetron HCl (Zofran Inj) 4 mg Q4H PRN IV 07/11/17 03:00 08/10/17 02:59 07/12/17 20:50 4 MG Ondansetron HCl (Zofran Tab) 4 mg Q6H PRN PO 07/11/17 10:15 08/10/17 10:14 Prochlorperazine Edisylate 5 mg/ Syringe 5 ml @ 5 mls/min Q4H PRN IV 07/11/17 14:00 08/10/17 13:59 Lactulose (Chronulac Syrup) 30 gm Q4H PRN PO 07/11/17 16:45 08/10/17 16:44 Senna (Senokot Tab) 8.6 mg QAM PO 07/12/17 08:00 08/11/17 07:59 Polyethylene (Miralax Powder Packet) 17 gm DAILY PO 07/11/17 16:45 08/05/17 02:29 07/14/17 10:07 17 GM Vancomycin HCl (Vancomycin Oral Soln) 250 mg Q6H PO 07/12/17 17:00 07/26/17 16:59 07/15/17 05:32 250 MG Raspberry (Raspberry Syrup 5ml Cup) 5 ml Q6H PO 07/12/17 17:00 07/26/17 16:59 07/15/17 05:32 5 ML Vancomycin HCl (Consult) 1 ea UD PRN N/A 07/13/17 17:00 08/12/17 16:59 Oxycodone HCl (Roxicodone Immediate Rel Tab) 10 mg Q4H PRN PO 07/14/17 09:15 08/05/17 08:59 07/15/17 09:53 10 MG Methadone HCl (Dolophine Tab) 20 mg BID PO 07/14/17 09:30 07/28/17 09:29 07/15/17 08:33 20 MG Prednisone (PredniSONE TAB) 40 mg DAILY PO 07/15/17 08:00 08/05/17 08:59 Piperacillin Sod/ Tazobactam Sod 3.375 gm/Dextrose 115 ml @ 28.75 mls/ hr Q12@1000,2200 IV 07/14/17 22:00 07/21/17 21:59 07/14/17 22:37 28.75 MLS/HR Piperacillin Sod/ Tazobactam Sod (Consult) 1 ea UD PRN N/A 07/14/17 15:15 08/13/17 15:14 Impression (1) Cellulitis of left hand (2) ESRD (end stage renal disease) on dialysis (3) Renal cell carcinoma (4) Anemia (5) Diabetes type 2, controlled Mr. Padilla Christy is a 61-year-old male with ESRD and metastatic RCC. He underwent left nephrectomy in 2015. He is maintained on Cabometyx. He had progressive CKD and started HD in May. Since starting dialysis, Padilla has spent a significant amount of time hospitalized. Functional status has declined. He appears to be tolerating HD well today. BP is soft and UF limited to 1 L. Qb appropriate via AVF. Pulmonary evaluation yesterday was reviewed. CT scan reviewed this morning. Bilateral multifocal changes including ground glass opacities are noted. Clinical presentation concerning for multifocal pneumonia, possible cryptogenic organizing pneumonia or drug related pneumonitis. Bilateral effusions are also noted. Padilla previously could not tolerate Sutent due to high grade proteinuria and poorly-controlled hypertension. Unfortunately, Opdivo caused arthralgia, colitis and possible pneumonitis. He has been maintained on prednisone for possible [employer]. The dose was increased yesterday to assist with pulmonary symptoms including hypoxia. Mr. Christy was admitted with persistent soft tissue infection of the left hand. This improved with antibiotics (treatment with ertapenem and daptomycin). Due to concern for possible evolving pneumonia. Current antibiotics include Zosyn and vancomycin. Padilla developed abdominal pain associated with an abdominal wall hematoma. Note that there is a warning associated with cabozantinib including severe and sometimes fatal hemorrhage. Stool was checked for C diff and he is on treatment for this as well. Recent non contrast CT of chest, abdomen and pelvis did not suggest progressive metastatic disease. Unfortunately, it is difficult to know if Padilla is tolerating therapy well. I explained to the patient's significant other (Eulalia) yesterday, that overall prognosis is guarded. In March he was admitted with fever, SOB and desaturation due to pneumonia , left pleural effusion and possible pneumonitis. At that time treated with vancomycin, Zosyn and Levaquin, as well as left pleural tap and steroid taper. 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
[2017-07-15] MEDS: ASPIRIN 81 MG ECTAB PO SCH (13:11)
[2017-07-15] MEDS: PIPERACILL/TAZOBAC IV 3.375 GM in DEXTROSE 5% 100ML 100 ML IV SCH ×2 (13:16→22:25)
[2017-07-15] MEDS ORDERED: NURSING VERBAL MED ORDER ONE (13:45)
[2017-07-15] MEDS ORDERED: EPOETIN ALFA 10,000 UNITS/ML VIAL SC SCH (14:00)
[2017-07-15] MEDS ORDERED: EPOETIN ALFA 10,000 UNITS/ML VIAL IV SCH (14:00)
--- NOTE | 2017-07-15 16:02 | Family Medicine Progress Note ---
Progress Note Date of Service Jul 15, 2017. Subjective Pt evaluation today including: conversation w/ patient, physical exam, chart review, lab review Pain: Reports improved L hand pain but persistent abdominal pain PO Intake: tolerating Voiding: no voiding problems This AM Mr. Christy reports improvement in L hand pain, but persistent RLQ abdominal pain. Also reports more formed stool with minimal bleeding on toilet paper. Continues to be sob. Otherwise asymptomatic. Constitutional: No fever, No chills Respiratory: + shortness of breath Cardiovascular: No chest pain Abdomen: + pain, + diarrhea, No nausea, No vomiting Male : No dysuria Medications Current Inpatient Medications Medications (Trade) Dose Ordered Sig/Edward Route Start Time Stop Time Status Last Admin Dose Admin Acetaminophen (Tylenol Tab) 650 mg Q4H PRN PO 07/05/17 21:45 08/04/17 21:44 07/11/17 21:21 650 MG Amlodipine Besylate (Norvasc Tab) 10 mg QAM PO 07/06/17 09:00 08/05/17 08:59 07/14/17 10:08 10 MG Aspirin (Ecotrin Tab) 81 mg QAM PO 07/06/17 09:00 08/05/17 08:59 07/15/17 13:11 81 MG Calcitriol (Rocaltrol Cap) 0.25 mcg Q2D PO 07/06/17 09:00 08/05/17 08:59 07/14/17 10:10 0.25 MCG Furosemide (Lasix Tab) 40 mg QAM PO 07/06/17 09:00 08/05/17 08:59 07/14/17 10:06 40 MG Hydralazine HCl (Apresoline Tab) 100 mg TID PO 07/06/17 09:00 08/05/17 08:59 07/14/17 20:32 100 MG Lactobacillus Acidophilus (Floranex Tab) 2 tab TID PO 07/06/17 09:00 08/05/17 08:59 07/15/17 08:37 2 TAB Lisinopril (Zestril Tab) 40 mg DAILY PO 07/06/17 09:00 08/05/17 08:59 07/14/17 10:10 40 MG Metoprolol Tartrate (Lopressor Tab) 150 mg BID PO 07/06/17 09:00 08/05/17 08:59 07/14/17 20:31 150 MG Simvastatin (Zocor Tab) 20 mg QPM PO 07/06/17 21:00 08/05/17 20:59 07/14/17 20:32 20 MG Tamsulosin HCl (Flomax Cap) 0.4 mg HS PO 07/06/17 21:00 08/05/17 20:59 07/14/17 20:32 0.4 MG Cabozantinib (Cabometyx) 60 mg DAILY@0500 PO 07/06/17 05:00 08/05/17 04:59 07/15/17 05:33 60 MG Insulin Aspart (novoLOG ASPART) SLIDING SCALE G... ACHS SC 07/06/17 07:00 08/05/17 06:59 07/15/17 08:47 2 UNITS Miscellaneous Information (Check Fentanyl Patch Placement) 1 ea QS N/A 07/06/17 08:00 08/05/17 07:59 07/15/17 08:00 1 EA Glucose (Glucose 40% Gel) 15-30 GRAMS 15 GRAMS... UD PRN PO 07/06/17 04:15 08/05/17 04:14 Glucose (Glucose Chew Tab) 4-8 Tablets 4 Tabl... UD PRN PO 07/06/17 04:15 08/05/17 04:14 Dextrose (Dextrose 50% 50ML Syringe) 25-50ML OF 50% DW IV FOR... UD PRN IV 07/06/17 04:15 08/05/17 04:14 07/06/17 05:40 25 ML Glucagon (Glucagon Inj) 1 mg UD PRN SQ 07/06/17 04:15 08/05/17 04:14 Insulin Glargine (Lantus Solostar Pen) 7 units HS SC 07/06/17 21:00 08/05/17 20:59 07/14/17 20:41 7 UNITS Enteral Nutritional Formula (Boost Glucose Control) 1 can BIDM PO 07/06/17 16:45 08/05/17 16:44 07/15/17 08:00 1 CAN Miscellaneous (Fentanyl Patch Remove & Waste) 1 ea Q3D N/A 07/10/17 01:00 08/09/17 00:59 07/13/17 01:06 1 EA Fentanyl (Duragesic Patch) 25 mcg Q3D TD 07/07/17 01:00 07/21/17 00:59 07/13/17 01:04 25 MCG Heparin Sodium (Porcine) (Heparin 100 Unit/ml 5ml Flush) 5 ml PRN PRN IV 07/07/17 02:45 08/06/17 02:44 07/15/17 05:40 5 ML Calcium Carbonate (Tums Chew Tab) 500 mg TIDM PO 07/07/17 17:00 08/05/17 08:59 07/15/17 13:56 500 MG Ondansetron HCl (Zofran Inj) 4 mg Q4H PRN IV 07/11/17 03:00 08/10/17 02:59 07/12/17 20:50 4 MG Ondansetron HCl (Zofran Tab) 4 mg Q6H PRN PO 07/11/17 10:15 08/10/17 10:14 Prochlorperazine Edisylate 5 mg/ Syringe 5 ml @ 5 mls/min Q4H PRN IV 07/11/17 14:00 08/10/17 13:59 Lactulose (Chronulac Syrup) 30 gm Q4H PRN PO 07/11/17 16:45 08/10/17 16:44 Senna (Senokot Tab) 8.6 mg QAM PO 07/12/17 08:00 08/11/17 07:59 Polyethylene (Miralax Powder Packet) 17 gm DAILY PO 07/11/17 16:45 08/05/17 02:29 07/14/17 10:07 17 GM Vancomycin HCl (Vancomycin Oral Soln) 250 mg Q6H PO 07/12/17 17:00 07/26/17 16:59 07/15/17 13:17 250 MG Raspberry (Raspberry Syrup 5ml Cup) 5 ml Q6H PO 07/12/17 17:00 07/26/17 16:59 07/15/17 13:17 5 ML Vancomycin HCl (Consult) 1 ea UD PRN N/A 07/13/17 17:00 08/12/17 16:59 Oxycodone HCl (Roxicodone Immediate Rel Tab) 10 mg Q4H PRN PO 07/14/17 09:15 08/05/17 08:59 07/15/17 13:17 10 MG Methadone HCl (Dolophine Tab) 20 mg BID PO 07/14/17 09:30 07/28/17 09:29 07/15/17 08:33 20 MG Prednisone (PredniSONE TAB) 40 mg DAILY PO 07/15/17 08:00 08/05/17 08:59 07/15/17 13:15 40 MG Piperacillin Sod/ Tazobactam Sod 3.375 gm/Dextrose 115 ml @ 28.75 mls/ hr Q12@1000,2200 IV 07/14/17 22:00 07/21/17 21:59 07/15/17 13:16 28.75 MLS/HR Piperacillin Sod/ Tazobactam Sod (Consult) 1 ea UD PRN N/A 07/14/17 15:15 08/13/17 15:14 Epoetin Mohsen (Procrit Inj) 10,000 units TODAY@1400 SC 07/15/17 14:00 07/15/17 18:00 07/15/17 13:58 10,000 UNITS Objective Vital Signs Date Time Temp Pulse Resp B/P (MAP) Pulse Ox O2 Delivery O2 Flow Rate FiO2 07/15/17 15:10 36.8 83 22 121/74 (90) 93 Nasal Cannula 4.0 07/15/17 13:24 36.4 88 111/70 (84) 07/15/17 12:35 80/60 07/15/17 12:30 85 73/63 07/15/17 12:15 96 97/80 07/15/17 12:00 86 91/58 07/15/17 11:45 77 113/78 07/15/17 11:30 86 106/69 07/15/17 11:15 62 96/59 07/15/17 11:00 75 146/90 07/15/17 10:45 70 129/69 07/15/17 10:30 78 116/66 07/15/17 10:15 80 127/62 07/15/17 10:00 78 105/74 07/15/17 09:45 79 129/68 07/15/17 09:30 73 131/77 07/15/17 09:07 36.3 72 142/79 (100) 07/15/17 08:15 99 Nasal Cannula 4.0 07/15/17 07:33 36.5 76 16 132/64 (86) 99 Nasal Cannula 4.0 07/15/17 00:12 36.4 79 20 129/66 (87) 97 Nasal Cannula 4.0 07/15/17 00:00 96 Nasal Cannula 4.0 07/14/17 20:28 36.7 80 18 132/69 (90) 96 Nasal Cannula 4.0 Humidified Oxygen 07/14/17 20:00 96 Nasal Cannula 4.0 07/14/17 16:00 Nasal Cannula 4.0 Physical Exam General Appearance: no apparent distress Eyes: normal inspection, sclerae normal Respiratory/Chest: lungs clear, + decreased breath sounds Cardiovascular: regular rate, rhythm, no edema, no murmur Abdomen: normal bowel sounds, soft, + tenderness (over RLQ with palpable fullness) Extremities: non-tender, no pedal edema Neurologic/Psychiatric: alert, oriented x 3 Skin: warm/dry, + pertinent finding (improving ecchymoses over abdomen) Laboratory Results 07/15/17 05:40 07/15/17 05:40 Test 07/15/17 02:30 07/15/17 05:40 07/15/17 11:25 Stool Occult Blood NEGATIVE (NEGATIVE) Red Blood Count 2.74 M/uL (4.7-6.1) Mean Corpuscular Volume 91.2 fL (80-100) Mean Corpuscular Hemoglobin 29.9 pg (25-34) Mean Corpuscular Hemoglobin Concent 32.8 g/dl (32-36) RDW Standard Deviation 78.2 fL (36.4-46.3) RDW Coefficient of Variation 23.6 % (11.5-14.5) Mean Platelet Volume 10.1 fL (7.4-10.4) Nucleated RBC Absolute Count (auto) 0.45 K/uL (0-0) Nucleated Red Blood Cells % 5.5 % Anion Gap 8.0 mmol/L (3-11) Est Creatinine Clear Calc Drug Dose 18.4 ml/min Estimated GFR () 16.1 Estimated GFR (Non- 13.9 BUN/Creatinine Ratio 11.3 (10-20) Calcium Level 8.4 mg/dl (8.5-10.1) Phosphorus Level 4.3 mg/dl (2.5-4.9) Ammonia 26.4 umol/L (11-32) Albumin 1.3 gm/dl (3.4-5.0) Random Vancomycin Level 18.7 mcg/ml Bedside Glucose 140 mg/dl (70-99) Assessment and Plan Mr. Christy is a 61 year old gentleman with hx of ESRD on HD, RCC, DMII. Admitted for L hand cellulitis having failed outpatient management. Now with C.diff, abdominal pain rectus sheath hematoma, anemia and bilateral pneumonia on imagining consistent with likely FERTILIZER MIXER given hx vs. infectious process. Diarrhea - C.Diff - remains afebrile - C.diff positive - On oral vancomycin - day 4 - urine cx negative, blood cultures negative - CT abdomen - small right rectus sheath hematoma, no new lymphadenopathy, lesions of right kidney, unchanged from before Abdominal Pain - secondary to rectus sheath hematoma - apply warm k-pad to the area for symptomatic relief - hold heparin for dvt prophylaxis and stop giving insulin injections in that area Left hand cellulitis - ID consulted. Recommendations: - was on ertapenem and dapto but abx broadened. Currently on vanc and zosyn - day 10 of abx - possible reflex sympathetic dystrophy - consider neuro consult in the future +/- nerve conduction studies - MRI results show = Subcutaneous edema with mild edema of the intrinsic musculature suggesting cellulitis with myositis. No osteomyelitis, no abscess - Ortho consulted: Dr. Marie - no surgical indications at this time - Given continued pain - Rheumatology consulted - 1 dose Solu-medrol 40mg IV (given on 07/09) - Continue home dose of steroids - CK and uric acid within normal limits - WBC normal - warm compresses to help with pain SOB - bilateral PNA on imaging likely FERTILIZER MIXER given hx vs. infectious - new oxygen demand - on 2L and SOB without it - pulmonary consult - CT - Extensive groundglass opacity & multifocal consolidation since previous CT. Possible cryptogenic organizing pneumonia/drug related pneumonitis - increased prednisone from 10mg daily to 40mg daily - change antibiotics from IV aztreonam to IV zosyn to include anaerobe coverage - speech/swallow eval ordered - Continue O2 supplementation to maintain SaO2 >92%. - 2 step on discharge ESRD HD secondary to RCC/ s/p left nephrectomy - Nephrology Consulted - HD today - receives HD on Tuesdays, and Saturdays - appreciate oncology's input: - continue cabozantinib -> although does contain warning for GI perf and fistula - may repeat CT scan if he does not improve - next scans planned for July Chronic Pain - continue fentanyl - Dr. Jackson consulted. Recommendations - continue prn oxycodone - increased from tid prn to q4h prn - pt was on increased dose of methadone at 20 mg BID since 06/20 - in the hospital, he has been on 10mg TID, will increase to previous regimen of 20mg BID DMII - 7 units of Lantus with sliding scale - BSG AC HS Anemia - Hgb today stable at 8.3 from 8.2 yesterday - nephrology -> continue epogen 44448 units and venofer 100mg - continue to monitor HTN/hyperlipidemia - continue asa 81 mg, furosemide 40 mg - continue hydralazine 100 mg tid, amlodipine 10 mg daily, metoprolol 150 mg bid and lisinopril 40 mg daily - continue simvastatin 20 mg daily - I&O and daily weights BPH - continue tamsulosin 0.4 mg CKD Bone Mineral Disease - Continue oral Calcitriol - Continue CaCO3 500 mg with meals DVT Prophylaxis: SCDs Code: Full Disposition: remains on med/onc. Possible eventual d/c to [facility]; referral also placed at [facility] for nursing care on 07/14 Resident Physician Supervision Note: I was present with PGY1 Dr. Earlene Jackson during the history and exam. I discussed the case with the resident and agree with the findings and plan as documented in the note. Any exceptions or clarifications are listed here: none. During my visit (late afternoon and following dialysis) the patient was very lethargic. I could not wake him up. After several minutes he did in fact wake up and was groggy but could answer questions. He thought it was Monday. VBG checked - pH 7.35, pCO2 50. VSS; no fever gen - chronically ill, again quite sleepy today neck - no JVD heart - RRR lungs - CTA b/l abd - soft, ND, no HSM ext - no edema of ankles; mild left hand edema - improving skin - no cellulitis, left hand A/P: 1. encephalopathy - unclear if toxic from narcotics vs metabolic vs other. VBG w/o significant hypercarbia. Consider CT head to r/o mets from his renal cell ca. Ammonia this AM was normal. FSBS was normal at time of lethargy. Certainly he needs pain control for his cancer but moving forward will need to balance this with excessive sedation. 2. rectus sheath hematoma - stable H/H, stable pain. Certainly no worse on exam today. 3. c. diff colitis - vanco PO qid; day #4 of Rx 4. recent left hand cellulitis - was on ertapenem & daptomycin w/ improvement; these abx have been broadened (see below); clinically improved 5. b/l pneumonia on imaging - FERTILIZER MIXER vs infectious pneumonia; pulmonary has seen - they have increased his prednisone to 40mg daily; for possible gram negative ruperto pneumonia or aspiration pneumonia the aztreonam has been broadened to zosyn ; daptomycin changed to vanco for MRSA coverage; ID & pulmonary following 6. h/o FERTILIZER MIXER - see above 7. anemia - H/H acceptable once again today 8. ESRD on HD - appreciate nephrology assistance for HD needs patient on large scale is not doing well palliative care continues to follow problems continue to mount despite maximal medical efforts Documented By: Clint Zepeda MD Resident Involvement: Resident Care Provided Care Provided: Adult Hospital Medicine
--- NOTE | 2017-07-15 16:42 | Pharmacy Progress Note ---
Pharmacy Antibiotic Prog Note Date of Service Jul 15, 2017. Subjective The patient is currently receiving Zosyn 3.375 Gm q12h and vancomycin, dosing based on vancomycin levels prior to hemodialysis. The patient is currently on day # 2 of Zosyn IV therapy, day 3 of vancomycin IV. Objective Height (Feet): 5 Height (Inches): 10.00 Weight (Kilograms): 85.700 Levels: Item Value Date Time Random Vancomycin Level 18.7 mcg/ml 07/15/17 0540 Previous dose given after dialysis 07/13. Level drawn before dialysis today. Lab Results (24hrs): Test 07/15/17 02:30 07/15/17 05:40 07/15/17 11:25 07/15/17 16:09 Stool Occult Blood NEGATIVE (NEGATIVE) White Blood Count 8.28 K/uL (4.8-10.8) Red Blood Count 2.74 M/uL (4.7-6.1) Hemoglobin 8.2 g/dL (14.0-18.0) Hematocrit 25.0 % (42-52) Mean Corpuscular Volume 91.2 fL (80-100) Mean Corpuscular Hemoglobin 29.9 pg (25-34) Mean Corpuscular Hemoglobin Concent 32.8 g/dl (32-36) RDW Standard Deviation 78.2 fL (36.4-46.3) RDW Coefficient of Variation 23.6 % (11.5-14.5) Platelet Count 171 K/uL (130-400) Mean Platelet Volume 10.1 fL (7.4-10.4) Nucleated RBC Absolute Count (auto) 0.45 K/uL (0-0) Nucleated Red Blood Cells % 5.5 % Sodium Level 134 mmol/L (136-145) Potassium Level 5.0 mmol/L (3.5-5.1) Chloride Level 101 mmol/L (98-107) Carbon Dioxide Level 26 mmol/L (21-32) Anion Gap 8.0 mmol/L (3-11) Blood Urea Nitrogen 48 mg/dl (7-18) Creatinine 4.25 mg/dl (0.60-1.40) Est Creatinine Clear Calc Drug Dose 18.4 ml/min Estimated GFR () 16.1 Estimated GFR (Non- 13.9 BUN/Creatinine Ratio 11.3 (10-20) Random Glucose 233 mg/dl (70-99) Calcium Level 8.4 mg/dl (8.5-10.1) Phosphorus Level 4.3 mg/dl (2.5-4.9) Ammonia 26.4 umol/L (11-32) Albumin 1.3 gm/dl (3.4-5.0) Random Vancomycin Level 18.7 mcg/ml Bedside Glucose 140 mg/dl (70-99) 102 mg/dl (70-99) Micro Results: 07/12 urine NG 07/12 blood x2 NGTD 07/12 stool (+) C.difficile 07/14 nares (-) MRSA Recent Pertinent Medications Item Value Date Time Vancomycin HCl 535 ml @ 200 mls/hr 07/13/17 1730 1750 mg/Sodium ONE ONCE/IV 07/13/17 1912 Chloride Piperacillin Sod/ 115 ml @ 28.75 mls/hr 07/14/17 2200 Tazobactam Sod Q12@1000,2200/IV 07/15/17 1316 3.375 gm/Dextrose Vancomycin HCl 125 mg 07/15/17 1700 (Vancomycin Oral Q6H/PO Soln) Vancomycin HCl 250 mg 07/12/17 1700 (Vancomycin Oral Q6H/PO 07/15/17 1317 Soln) Assessment & Plan This drug level is: Therapeutic. Will give vancomycin 500 mg IV x1 to account for loss during dialysis. Continue vancomycin dosing based on levels. Goal trough level estimate: between 15-20 mcg/mL. Random level has been ordered for: 07/18/17 with am labs. Continue Zosyn 3.375 Gm IV q12h for hemodialysis patient. Pharmacy will continue to follow and will adjust dose/frequency as necessary. Thank you
[2017-07-15] MEDS ORDERED: VANCOMYCIN INJ 500 MG in SODIUM CHLORIDE 0.9% 250ML 250 ML IV SCH (17:00)
[2017-07-15] MEDS: VANCOMYCIN HCL 125 MG/2.5ML SOLN PO SCH ×2 (17:27→22:32)
--- NOTE | 2017-07-15 18:19 | PROGRESS NOTE ---
DATE: 07/15/2017 SUBJECTIVE: A 61-year-old gentleman with left hand cellulitis. He has got multiple medical comorbidities. He is now about 5 weeks out from his initial injury. Hand has been pretty much stable. Really not changing much. Still stiff and a bit sore but not severe. No real new complaints. OBJECTIVE: VITAL SIGNS: Temperature is 36.8. Vital signs stable. GENERAL: Reveals a pleasant, middle-aged male. He is sitting up in bed, looks pretty comfortable. EXTREMITIES: Examination of left hand reveals some mild kind of chronic swelling and a little bit of stiffness with range of motion. Little bit of spotty redness around his hand. There are no signs of abscess or fluid collections. ASSESSMENT: A 61-year-old male with multiple medical comorbidities with a slowly resolving left hand cellulitis. There are no signs of abscess or infected tenosynovitis that need a surgical treatment. My suspicion there is not much residual infection either and there is some degree of gout, arthritis and maybe even a little bit of regional sympathetic dystrophy. PLAN: There is no surgical indication in this patient's hand at this point and I do not anticipate there will be. I would continue to follow ID's recommendations. He can use his hand normally. Any orthopedic questions can be directed to me at [phone]. [facility]
[2017-07-15] MEDS: INSULIN GLARGINE SOLOSTAR 100 UNITS/ML 3 ML PEN SC SCH (20:33)
[2017-07-15] MEDS: TAMSULOSIN HCL 0.4 MG CAP PO SCH (20:40)
[2017-07-15] MEDS: SIMVASTATIN 20 MG TAB PO SCH (20:40)
[2017-07-16] VITALS (9 sets, daily range): BP systolic 120–136; BP diastolic 69–74; PULSE 76–81; TEMP 36.2–36.7; O2SAT 95–99
[2017-07-16] MEDS: CHECK FENTANYL PATCH PLACEMENT SCH ×4 (00:14→23:55)
[2017-07-16] MEDS: FENTANYL PATCH REMOVE & WASTE SCH (01:09)
[2017-07-16] MEDS: FENTANYL 25 MCG/HR TDSY TD SCH (01:09)
[2017-07-16] MEDS: VANCOMYCIN HCL 125 MG/2.5ML SOLN PO SCH ×4 (05:31→22:32)
[2017-07-16] MEDS: RASPBERRY SYRUP 5 ML UDP PO SCH ×4 (05:31→22:32)
[2017-07-16] MEDS: CABOZANTINIB S MALATE 60 MG PO SCH (05:32)
[2017-07-16 06:51] LABS: CALCIUM 7.5 mg/dl (8.5-10.1); CREATININE 3.23 mg/dl (0.60-1.40); POTASSIUM 4.3 mmol/L (3.5-5.1)
[2017-07-16] MEDS: BOOST GLUCOSE CONTROL PO SCH ×2 (08:00→17:00)
[2017-07-16] MEDS: SENNA 8.6 MG TAB PO SCH (08:00)
[2017-07-16] MEDS: METHADONE HCL 10 MG TAB PO SCH ×2 (08:46→20:32)
[2017-07-16] MEDS: METOPROLOL TARTRATE 100 MG TAB PO SCH ×2 (08:46→20:31)
[2017-07-16] MEDS: CALCIUM CARBONATE 500 MG CHEWABLE PO SCH ×3 (08:47→17:56)
[2017-07-16] MEDS: CALCITRIOL 0.25 MCG CAP PO SCH (08:47)
[2017-07-16] MEDS: LISINOPRIL 40 MG TAB PO SCH (08:47)
[2017-07-16] MEDS: AMLODIPINE BESYLATE 5 MG TAB PO SCH (08:47)
[2017-07-16] MEDS: ASPIRIN 81 MG ECTAB PO SCH (08:47)
[2017-07-16] MEDS: LACTOBACILLUS ACIDOPHILUS (FLORANEX) TAB PO SCH ×3 (08:48→20:32)
[2017-07-16] MEDS: FUROSEMIDE 40 MG TAB PO SCH (08:48)
[2017-07-16] MEDS: POLYETHYLENE (MIRALAX) 17 GM PACK PO SCH (08:49)
[2017-07-16] MEDS: INSULIN ASPART 100 UNITS/ML 3 ML PEN SC SCH ×4 (08:53→20:39)
[2017-07-16] MEDS: PIPERACILL/TAZOBAC IV 3.375 GM in DEXTROSE 5% 100ML 100 ML IV SCH ×2 (10:54→22:25)
--- NOTE | 2017-07-16 11:30 | NEPHROLOGY PROGRESS NOTE ---
DATE: 07/16/2017 SUBJECTIVE: Mr. Christy says that he is feeling a bit better. Specifically, he says that his left hand is improved. He says that it is not particularly swollen. He continues to complain of some right lower quadrant abdominal pain. This has been evaluated in the past. It is felt to be related to a right rectus sheath hematoma that was noted on CT scan. There was no mention on a CT scan of the patient's appendix, although his discomfort seems more superficial and often related to motion. He says that that discomfort has been there for nearly a month. There is no associated chills, fever, etc. He has had the recent issue with Clostridium difficile colitis. He has had no symptoms of uremia or volume overload. His dialysis treatment yesterday was well tolerated. His blood sugars have been well controlled. OBJECTIVE: GENERAL: On physical exam, Mr. Christy appears as a chronically ill gentleman who was in no distress unless he would try to move or role in bed, at which time he had right lower quadrant discomfort. Otherwise, he appeared comfortable. He does appear to be mildly to moderately cushingoid. VITAL SIGNS: He is afebrile (36.7), his blood pressure 121/72, pulse 76 and regular, respiratory rate 20, and his pulse ox 99% on 4 liters of oxygen via nasal cannula. SKIN: Shows normal skin turgor. He has a left upper arm AV fistula. There is no obvious rash or infiltrative skin disease. Skin turgor is normal. HEAD: Normal. EYES: Grossly normal. The ocular fundi were not examined. EARS, NOSE, MOUTH AND THROAT: Unremarkable. His oral mucous membranes seem moist to me. NECK: Supple. I note no jugular venous distention, carotid bruit or thyromegaly. CHEST: Clear to auscultation. Breath sounds are a bit diminished at the bases. He has no wheezes, rales or rhonchi. CARDIAC: Shows a regular rhythm. S1 and S2 are normal. He has no murmur or gallop. ABDOMEN: Shows right lower quadrant tenderness to superficial palpation and deep palpation. There is no obvious rebound tenderness. Bowel sounds are normal. EXTREMITIES: Show no cyanosis, clubbing or peripheral edema other than the edema noted in his left hand. He has a left upper arm AV fistula. NEUROLOGIC: Shows no lateralizing changes. PERTINENT LABORATORY WORK: From today shows a sodium of 133 mmol/L, potassium 4.3 mmol/L, chlorides 100 mmol/L, and CO2 content 28 mmol/L. His BUN is 35. His creatinine 3.23. His blood sugar has varied from 102 to 186. His serum calcium is 3.5. His most recent serum albumin is 1.3! He has had no recent imaging studies. ASSESSMENT: Mr. Christy seems stable. His left hand is improving. He continues to have right lower quadrant pain, presumably related to rectus sheath hematoma. I cannot see that there was any ____ CT scan report of his appendix. RECOMMENDATIONS: No change for now. Continue with his renal diet and his other medications including vancomycin. Vancomycin random levels should be measured to help assess his dosing. No other intervention from the renal standpoint. He will next be scheduled for dialysis on July 18.
[2017-07-16] MEDS: OXYCODONE HCL IR 5 MG TAB (IMMEDIATE RELEASE) PO PRN ×2 (11:38→23:54)
--- NOTE | 2017-07-16 13:29 | Family Medicine Progress Note ---
Progress Note Date of Service Jul 16, 2017. Subjective Pt evaluation today including: conversation w/ patient, physical exam, chart review, lab review Pain: reports persistent L hand pain and abdominal pain compared to yesterday PO Intake: tolerating Voiding: no voiding problems This AM Mr. Christy reported persistent L hand pain and RLQ abdominal pain. Pain not much improved since yesterday. Reported 1/2 hour of constant sharp RLQ abdominal pain. Had a more formed BM without any notable blood. Also reported feeling more awake and alert this AM. Had baseline level of sob Constitutional: No fever, No chills Respiratory: + shortness of breath Cardiovascular: No chest pain Abdomen: + pain, + diarrhea, No nausea, No vomiting, No constipation Musculoskeletal: + problem reported (L hand pain) Male : No dysuria Medications Current Inpatient Medications Medications (Trade) Dose Ordered Sig/Edward Route Start Time Stop Time Status Last Admin Dose Admin Acetaminophen (Tylenol Tab) 650 mg Q4H PRN PO 07/05/17 21:45 08/04/17 21:44 07/11/17 21:21 650 MG Amlodipine Besylate (Norvasc Tab) 10 mg QAM PO 07/06/17 09:00 08/05/17 08:59 07/16/17 08:47 10 MG Aspirin (Ecotrin Tab) 81 mg QAM PO 07/06/17 09:00 08/05/17 08:59 07/16/17 08:47 81 MG Calcitriol (Rocaltrol Cap) 0.25 mcg Q2D PO 07/06/17 09:00 08/05/17 08:59 07/16/17 08:47 0.25 MCG Furosemide (Lasix Tab) 40 mg QAM PO 07/06/17 09:00 08/05/17 08:59 07/16/17 08:48 40 MG Hydralazine HCl (Apresoline Tab) 100 mg TID PO 07/06/17 09:00 08/05/17 08:59 07/16/17 08:49 100 MG Lactobacillus Acidophilus (Floranex Tab) 2 tab TID PO 07/06/17 09:00 08/05/17 08:59 07/16/17 08:48 2 TAB Lisinopril (Zestril Tab) 40 mg DAILY PO 07/06/17 09:00 08/05/17 08:59 07/16/17 08:47 40 MG Metoprolol Tartrate (Lopressor Tab) 150 mg BID PO 07/06/17 09:00 08/05/17 08:59 07/16/17 08:46 150 MG Simvastatin (Zocor Tab) 20 mg QPM PO 07/06/17 21:00 08/05/17 20:59 07/15/17 20:40 20 MG Tamsulosin HCl (Flomax Cap) 0.4 mg HS PO 07/06/17 21:00 08/05/17 20:59 07/15/17 20:40 0.4 MG Cabozantinib (Cabometyx) 60 mg DAILY@0500 PO 07/06/17 05:00 08/05/17 04:59 07/16/17 05:32 60 MG Insulin Aspart (novoLOG ASPART) SLIDING SCALE G... ACHS SC 07/06/17 07:00 08/05/17 06:59 07/16/17 12:32 2 UNITS Miscellaneous Information (Check Fentanyl Patch Placement) 1 ea QS N/A 07/06/17 08:00 08/05/17 07:59 07/16/17 08:00 1 EA Glucose (Glucose 40% Gel) 15-30 GRAMS 15 GRAMS... UD PRN PO 07/06/17 04:15 08/05/17 04:14 Glucose (Glucose Chew Tab) 4-8 Tablets 4 Tabl... UD PRN PO 07/06/17 04:15 08/05/17 04:14 Dextrose (Dextrose 50% 50ML Syringe) 25-50ML OF 50% DW IV FOR... UD PRN IV 07/06/17 04:15 08/05/17 04:14 07/06/17 05:40 25 ML Glucagon (Glucagon Inj) 1 mg UD PRN SQ 07/06/17 04:15 08/05/17 04:14 Insulin Glargine (Lantus Solostar Pen) 7 units HS SC 07/06/17 21:00 08/05/17 20:59 07/15/17 20:33 7 UNITS Enteral Nutritional Formula (Boost Glucose Control) 1 can BIDM PO 07/06/17 16:45 08/05/17 16:44 07/16/17 08:00 1 CAN Miscellaneous (Fentanyl Patch Remove & Waste) 1 ea Q3D N/A 07/10/17 01:00 08/09/17 00:59 07/16/17 01:09 1 EA Fentanyl (Duragesic Patch) 25 mcg Q3D TD 07/07/17 01:00 07/21/17 00:59 07/16/17 01:09 25 MCG Heparin Sodium (Porcine) (Heparin 100 Unit/ml 5ml Flush) 5 ml PRN PRN IV 07/07/17 02:45 08/06/17 02:44 07/16/17 05:27 5 ML Calcium Carbonate (Tums Chew Tab) 500 mg TIDM PO 07/07/17 17:00 08/05/17 08:59 07/16/17 12:30 500 MG Ondansetron HCl (Zofran Inj) 4 mg Q4H PRN IV 07/11/17 03:00 08/10/17 02:59 07/12/17 20:50 4 MG Ondansetron HCl (Zofran Tab) 4 mg Q6H PRN PO 07/11/17 10:15 08/10/17 10:14 Prochlorperazine Edisylate 5 mg/ Syringe 5 ml @ 5 mls/min Q4H PRN IV 07/11/17 14:00 08/10/17 13:59 Lactulose (Chronulac Syrup) 30 gm Q4H PRN PO 07/11/17 16:45 08/10/17 16:44 Senna (Senokot Tab) 8.6 mg QAM PO 07/12/17 08:00 08/11/17 07:59 Polyethylene (Miralax Powder Packet) 17 gm DAILY PO 07/11/17 16:45 08/05/17 02:29 07/16/17 08:49 17 GM Raspberry (Raspberry Syrup 5ml Cup) 5 ml Q6H PO 07/12/17 17:00 07/26/17 16:59 07/16/17 10:53 5 ML Vancomycin HCl (Consult) 1 ea UD PRN N/A 07/13/17 17:00 08/12/17 16:59 Oxycodone HCl (Roxicodone Immediate Rel Tab) 10 mg Q4H PRN PO 07/14/17 09:15 08/05/17 08:59 07/16/17 11:38 10 MG Methadone HCl (Dolophine Tab) 20 mg BID PO 07/14/17 09:30 07/28/17 09:29 07/16/17 08:46 20 MG Prednisone (PredniSONE TAB) 40 mg DAILY PO 07/15/17 08:00 08/05/17 08:59 07/16/17 08:48 40 MG Piperacillin Sod/ Tazobactam Sod 3.375 gm/Dextrose 115 ml @ 28.75 mls/ hr Q12@1000,2200 IV 07/14/17 22:00 07/21/17 21:59 07/16/17 10:54 28.75 MLS/HR Piperacillin Sod/ Tazobactam Sod (Consult) 1 ea UD PRN N/A 07/14/17 15:15 08/13/17 15:14 Vancomycin HCl (Vancomycin Oral Soln) 125 mg Q6H PO 07/15/17 17:00 07/26/17 16:59 07/16/17 10:54 125 MG Objective Vital Signs Date Time Temp Pulse Resp B/P (MAP) Pulse Ox O2 Delivery O2 Flow Rate FiO2 07/16/17 11:36 36.6 80 14 136/69 (91) 96 Nasal Cannula 4.0 07/16/17 08:30 99 Nasal Cannula 4.0 07/16/17 07:49 36.7 76 20 121/72 (88) 99 Nasal Cannula 4.0 07/16/17 01:30 36.4 81 20 120/69 (86) 95 4.0 07/16/17 00:00 96 Nasal Cannula 4.0 07/15/17 22:29 85 138/72 (94) 97 Nasal Cannula 4.0 Humidified Oxygen 07/15/17 20:34 84 118/71 (87) 99 Nasal Cannula 4.0 07/15/17 20:00 96 Nasal Cannula 4.0 07/15/17 16:00 99 Nasal Cannula 4.0 07/15/17 15:10 36.8 83 22 121/74 (90) 93 Nasal Cannula 4.0 07/15/17 13:24 36.4 88 111/70 (84) Physical Exam General Appearance: no apparent distress Eyes: normal inspection Respiratory/Chest: lungs clear, + decreased breath sounds Cardiovascular: regular rate, rhythm, no murmur Abdomen: normal bowel sounds, soft, + tenderness (RLQ localized to area of fullness) Extremities: no pedal edema, + pertinent finding (L hand edema, erythema and TTP (improving)) Neurologic/Psychiatric: alert, oriented x 3 Skin: + pertinent finding (abdominal ecchymosis improving) Laboratory Results 07/16/17 05:27 Test 07/15/17 17:33 07/16/17 05:27 07/16/17 11:43 Venous Blood pH 7.35 (7.36-7.41) Venous Blood Partial Pressure CO2 50 mmHg (38.0-50.0) Venous Blood Partial Pressure O2 57 mmHg Venous Blood HCO3 27 mmol/L Venous Blood Oxygen Saturation 85.9 % Venous Blood Base Excess 1.0 mEq/L Anion Gap 5.0 mmol/L (3-11) Est Creatinine Clear Calc Drug Dose 24.2 ml/min Estimated GFR () 22.4 Estimated GFR (Non- 19.3 BUN/Creatinine Ratio 10.8 (10-20) Calcium Level 7.5 mg/dl (8.5-10.1) Bedside Glucose 213 mg/dl (70-99) Assessment and Plan Mr. Christy is a 61 year old gentleman with hx of ESRD on HD, RCC, DMII. Admitted for L hand cellulitis having failed outpatient management. 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 infectious process. Encephalopathy - improved - Unclear whether toxic from narcotics vs. metabolic vs. other - Decreased Oxycodone from 20mg to 10mg QID PRN - Ammonia normal at 26.4 - VBG w/ot significant hypercarbia PCO2 - 50 - Consider head CT to rule out mets from RCC if worsens Diarrhea - C.Diff - remains afebrile - C.diff positive - On oral vancomycin - day 5 - urine cx negative, blood cultures negative - CT abdomen - small right rectus sheath hematoma, no new lymphadenopathy, lesions of right kidney, unchanged from before Abdominal Pain - stable - H&H stable - secondary to rectus sheath hematoma - apply warm k-pad to the area for symptomatic relief - hold heparin for dvt prophylaxis and stop giving insulin injections in that area Left hand cellulitis - improving - ID consulted. Recommendations: - was on ertapenem and dapto but abx broadened. Currently on vanc PO and zosyn IV - day 10 of abx - possible reflex sympathetic dystrophy - consider neuro consult in the future +/- nerve conduction studies - MRI results show = Subcutaneous edema with mild edema of the intrinsic musculature suggesting cellulitis with myositis. No osteomyelitis, no abscess - Ortho consulted: Dr. 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 infectious - new oxygen demand - on 2L and SOB without it - pulmonary consult - CT - Extensive groundglass opacity & multifocal consolidation since previous CT. Possible cryptogenic organizing pneumonia/drug related pneumonitis - increased prednisone from 10mg daily to 40mg daily - change antibiotics from IV aztreonam to IV zosyn to include anaerobe coverage and on Vanc to cover MRSA - speech/swallow eval ordered - Continue O2 supplementation to maintain SaO2 >92%. - 2 step on discharge ESRD HD secondary to RCC/ s/p left nephrectomy - Nephrology Consulted - HD yesterday - receives HD on Tuesdays, and Saturdays - appreciate oncology's input: - continue cabozantinib -> although does contain warning for GI perf and fistula - may repeat CT scan if he does not improve - next scans planned for July Chronic Pain - continue fentanyl - Dr. Jackson consulted. Recommendations - continue prn oxycodone - dose decreased to 10mg q4h prn in light of encephalopathy - pt was on increased dose of methadone at 20 mg BID since 06/20 - in the hospital, he has been on 10mg TID, will increase to previous regimen of 20mg BID DMII - 7 units of Lantus with sliding scale - BSG AC HS Anemia - Hgb today stable 8.2 - nephrology -> continue epogen [id number] units and venofer 100mg - continue to monitor HTN/hyperlipidemia - continue asa 81 mg, furosemide 40 mg - continue hydralazine 100 mg tid, amlodipine 10 mg daily, metoprolol 150 mg bid and lisinopril 40 mg daily - continue simvastatin 20 mg daily - I&O and daily weights BPH - continue tamsulosin 0.4 mg CKD Bone Mineral Disease - Continue oral Calcitriol - Continue CaCO3 500 mg with meals DVT Prophylaxis: SCDs Code: Full Disposition: remains on med/onc. Discussion about d/c to [facility] however unlikely to qualify given deconditioned status; referral also placed at [facility] for nursing care on 07/14 Resident Physician Supervision Note: I was present with PGY1 Dr. Earlene Jackson during the history and exam. I discussed the case with the resident and agree with the findings and plan as documented in the note. Any exceptions or clarifications are listed here: none. pt c/o RLQ abd pain less sleepy today and "overall I feel better today" no dyspnea at rest diarrhea improved VSS; no fever gen - chronically ill, more awake today, alert, oriented neck - no JVD heart - RRR lungs - CTA b/l, decreased BS bases abd - soft, ND, no HSM, tender RLQ over area of rectus sheath hematoma ext - no edema of ankles; mild left hand edema - no change skin - no cellulitis, left hand; mild ecchymoses over right lower quadrant from hematoma A/P: 1. encephalopathy - improved today. Toxic from narcotics? Again need to weight risks vs benefits of narcotics as he seems sensitive to PRN doses. If encephalopathy persists then CT head, r/o mets from renal cell ca. 2. rectus sheath hematoma - stable H/H, but pain worse today, likely because the hematoma is distending the sheath. K-pad heating system ordered. 3. c. diff colitis - vanco PO qid; day #5 of Rx - improved stooling 4. recent left hand cellulitis - was on ertapenem & daptomycin w/ improvement; these abx have been broadened to zosyn/vanco due to possible pneumonia; overall stable 5. b/l pneumonia on imaging - GUN STOCK CHECKER vs infectious pneumonia; pulmonary has seen - they have increased his prednisone to 40mg daily; on zosyn/vanco, day #3 and # 4, respectively - stable but no decrease in O2 requirement 6. 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 anemia - repeat CBC in am 8. ESRD on HD - appreciate nephrology assistance for HD needs no significant change today in status continue supportive care efforts for increasing # of active medical issues Documented By: Clint Zepeda MD Resident Involvement: Resident Care Provided Care Provided: Adult [facility] Medicine
--- NOTE | 2017-07-16 14:52 | Pulmonology Progress Note ---
Pulmonary Progress Note Date of Service Jul 16, 2017. Attending Dr. Clark Subjective Patient seen and examined. He complains of generalized fatigue and weakness. He states that his breathing has improved. He feels less short of breath at rest, but continues to feel dyspneic with exertion. He denies any chest pain or cough. He still is having left hand pain. Diarrhea has decreased. Only one bowel movement today. S/p HD yesterday. Objective VS reviewed. Tm 36.6, BP 120/69- 136/69, P 76-81, RR 14-20, Pulse oximetry 95-99 % on 4L NC. Gen: AAOx3, NAD CVS: S1, S2, RRR, no respiratory distress. No use of accessory muscles or respiration. Lungs/Chest: CTA bilaterally, right chest port-a-cath Abd; soft/nT/nD/BS+ Ext; left hand swelling. Left AV arm fistula Labs reviewed. Imaging reviewed. Medications reviewed. WBC done to 8 from 11 today. Hemoglobin stable at 8.2 Na 133, BUN 35, Cr 3.23, Ca 7.5 Assessment & Plan Acute Hypoxic Respiratory Failure Right sided pleural effusion versus rounded atelectasis Bilateral lung opacities Renal Cell Carcinoma CKD on hemodialysis Possible Cryptogenic Organizing Pneumonia Patient with continued opacification and possible consolidative changes versus rounded atelectasis of the right lung base. Dedicated T chest may likely represent HOE RUNNER versus drug induced pneumonitis. Increased prednisone to 40 mg daily. He is feeling less dyspenic today. However, still on 4L. We should maintain SaO2 > 92% as he has no previous requirements for oxygen at home.We can likely taper this down as tolerated. Continue with 40 mg daily of prednisone and taper by 10 mg weekly. Recommend speech and swallow evaluation. Continue with broad spectrum antibiotics to cover for anaerobes. He will require a 2 step prior to discharge. Continue dialysis as scheduled. Consider taking off more fluid if the patient's BP tolerates. Dr. Desphande will be covering the pulmonary service tomorrow and will continue to follow. Data Medications: Current Inpatient Medications Medications (Trade) Dose Ordered Sig/Edward Route Start Time Stop Time Status Last Admin Dose Admin Acetaminophen (Tylenol Tab) 650 mg Q4H PRN PO 07/05/17 21:45 08/04/17 21:44 07/11/17 21:21 650 MG Amlodipine Besylate (Norvasc Tab) 10 mg QAM PO 07/06/17 09:00 08/05/17 08:59 07/16/17 08:47 10 MG Aspirin (Ecotrin Tab) 81 mg QAM PO 07/06/17 09:00 08/05/17 08:59 07/16/17 08:47 81 MG Calcitriol (Rocaltrol Cap) 0.25 mcg Q2D PO 07/06/17 09:00 08/05/17 08:59 07/16/17 08:47 0.25 MCG Furosemide (Lasix Tab) 40 mg QAM PO 07/06/17 09:00 08/05/17 08:59 07/16/17 08:48 40 MG Hydralazine HCl (Apresoline Tab) 100 mg TID PO 07/06/17 09:00 08/05/17 08:59 07/16/17 08:49 100 MG Lactobacillus Acidophilus (Floranex Tab) 2 tab TID PO 07/06/17 09:00 08/05/17 08:59 07/16/17 08:48 2 TAB Lisinopril (Zestril Tab) 40 mg DAILY PO 07/06/17 09:00 08/05/17 08:59 07/16/17 08:47 40 MG Metoprolol Tartrate (Lopressor Tab) 150 mg BID PO 07/06/17 09:00 08/05/17 08:59 07/16/17 08:46 150 MG Simvastatin (Zocor Tab) 20 mg QPM PO 07/06/17 21:00 08/05/17 20:59 07/15/17 20:40 20 MG Tamsulosin HCl (Flomax Cap) 0.4 mg HS PO 07/06/17 21:00 08/05/17 20:59 07/15/17 20:40 0.4 MG Cabozantinib (Cabometyx) 60 mg DAILY@0500 PO 07/06/17 05:00 08/05/17 04:59 07/16/17 05:32 60 MG Insulin Aspart (novoLOG ASPART) SLIDING SCALE G... ACHS SC 07/06/17 07:00 08/05/17 06:59 07/16/17 12:32 2 UNITS Miscellaneous Information (Check Fentanyl Patch Placement) 1 ea QS N/A 07/06/17 08:00 08/05/17 07:59 07/16/17 08:00 1 EA Glucose (Glucose 40% Gel) 15-30 GRAMS 15 GRAMS... UD PRN PO 07/06/17 04:15 08/05/17 04:14 Glucose (Glucose Chew Tab) 4-8 Tablets 4 Tabl... UD PRN PO 07/06/17 04:15 08/05/17 04:14 Dextrose (Dextrose 50% 50ML Syringe) 25-50ML OF 50% DW IV FOR... UD PRN IV 07/06/17 04:15 08/05/17 04:14 07/06/17 05:40 25 ML Glucagon (Glucagon Inj) 1 mg UD PRN SQ 07/06/17 04:15 08/05/17 04:14 Insulin Glargine (Lantus Solostar Pen) 7 units HS SC 07/06/17 21:00 08/05/17 20:59 07/15/17 20:33 7 UNITS Enteral Nutritional Formula (Boost Glucose Control) 1 can BIDM PO 07/06/17 16:45 08/05/17 16:44 07/16/17 08:00 1 CAN Miscellaneous (Fentanyl Patch Remove & Waste) 1 ea Q3D N/A 07/10/17 01:00 08/09/17 00:59 07/16/17 01:09 1 EA Fentanyl (Duragesic Patch) 25 mcg Q3D TD 07/07/17 01:00 07/21/17 00:59 07/16/17 01:09 25 MCG Heparin Sodium (Porcine) (Heparin 100 Unit/ml 5ml Flush) 5 ml PRN PRN IV 07/07/17 02:45 08/06/17 02:44 07/16/17 05:27 5 ML Calcium Carbonate (Tums Chew Tab) 500 mg TIDM PO 07/07/17 17:00 08/05/17 08:59 07/16/17 12:30 500 MG Ondansetron HCl (Zofran Inj) 4 mg Q4H PRN IV 07/11/17 03:00 08/10/17 02:59 07/12/17 20:50 4 MG Ondansetron HCl (Zofran Tab) 4 mg Q6H PRN PO 07/11/17 10:15 08/10/17 10:14 Prochlorperazine Edisylate 5 mg/ Syringe 5 ml @ 5 mls/min Q4H PRN IV 07/11/17 14:00 08/10/17 13:59 Lactulose (Chronulac Syrup) 30 gm Q4H PRN PO 07/11/17 16:45 08/10/17 16:44 Senna (Senokot Tab) 8.6 mg QAM PO 07/12/17 08:00 08/11/17 07:59 Polyethylene (Miralax Powder Packet) 17 gm DAILY PO 07/11/17 16:45 08/05/17 02:29 07/16/17 08:49 17 GM Raspberry (Raspberry Syrup 5ml Cup) 5 ml Q6H PO 07/12/17 17:00 07/26/17 16:59 07/16/17 10:53 5 ML Vancomycin HCl (Consult) 1 ea UD PRN N/A 07/13/17 17:00 08/12/17 16:59 Oxycodone HCl (Roxicodone Immediate Rel Tab) 10 mg Q4H PRN PO 07/14/17 09:15 08/05/17 08:59 07/16/17 11:38 10 MG Methadone HCl (Dolophine Tab) 20 mg BID PO 07/14/17 09:30 07/28/17 09:29 07/16/17 08:46 20 MG Prednisone (PredniSONE TAB) 40 mg DAILY PO 07/15/17 08:00 08/05/17 08:59 07/16/17 08:48 40 MG Piperacillin Sod/ Tazobactam Sod 3.375 gm/Dextrose 115 ml @ 28.75 mls/ hr Q12@1000,2200 IV 07/14/17 22:00 07/21/17 21:59 07/16/17 10:54 28.75 MLS/HR Piperacillin Sod/ Tazobactam Sod (Consult) 1 ea UD PRN N/A 07/14/17 15:15 08/13/17 15:14 Vancomycin HCl (Vancomycin Oral Soln) 125 mg Q6H PO 07/15/17 17:00 07/26/17 16:59 07/16/17 10:54 125 MG I & O: 24-Hour Column 07/17/17 08:00 Intake Total 760 ml Balance 760 ml Vital Signs: Date Time Temp Pulse Resp B/P (MAP) Pulse Ox O2 Delivery O2 Flow Rate FiO2 07/16/17 11:36 36.6 80 14 136/69 (91) 96 Nasal Cannula 4.0 07/16/17 08:30 99 Nasal Cannula 4.0 07/16/17 07:49 36.7 76 20 121/72 (88) 99 Nasal Cannula 4.0 07/16/17 01:30 36.4 81 20 120/69 (86) 95 4.0 07/16/17 00:00 96 Nasal Cannula 4.0 07/15/17 22:29 85 138/72 (94) 97 Nasal Cannula 4.0 Humidified Oxygen 07/15/17 20:34 84 118/71 (87) 99 Nasal Cannula 4.0 07/15/17 20:00 96 Nasal Cannula 4.0 07/15/17 16:00 99 Nasal Cannula 4.0 07/15/17 15:10 36.8 83 22 121/74 (90) 93 Nasal Cannula 4.0 Laboratory Results: Last 24 Hours Test 07/15/17 16:09 07/15/17 17:33 07/15/17 20:22 07/16/17 05:27 Bedside Glucose 102 mg/dl 174 mg/dl Venous Blood pH 7.35 Venous Blood Partial Pressure CO2 50 mmHg Venous Blood Partial Pressure O2 57 mmHg Venous Blood HCO3 27 mmol/L Venous Blood Oxygen Saturation 85.9 % Venous Blood Base Excess 1.0 mEq/L Sodium Level 133 mmol/L Potassium Level 4.3 mmol/L Chloride Level 100 mmol/L Carbon Dioxide Level 28 mmol/L Anion Gap 5.0 mmol/L Blood Urea Nitrogen 35 mg/dl Creatinine 3.23 mg/dl Est Creatinine Clear Calc Drug Dose 24.2 ml/min Estimated GFR () 22.4 Estimated GFR (Non- 19.3 BUN/Creatinine Ratio 10.8 Random Glucose 186 mg/dl Calcium Level 7.5 mg/dl Test 07/16/17 07:51 07/16/17 11:43 Bedside Glucose 184 mg/dl 213 mg/dl
[2017-07-16] MEDS: TAMSULOSIN HCL 0.4 MG CAP PO SCH (20:30)
[2017-07-16] MEDS: SIMVASTATIN 20 MG TAB PO SCH (20:31)
[2017-07-16] MEDS: INSULIN GLARGINE SOLOSTAR 100 UNITS/ML 3 ML PEN SC SCH (20:40)
[2017-07-17] VITALS (9 sets, daily range): BP systolic 136–150; BP diastolic 71–80; PULSE 75–92; TEMP 36.3–37.2; O2SAT 97–99
[2017-07-17 05:20] LABS: HEMATOCRIT 24.2 % (42-52); MEAN CORPUSCULAR HEMOGLOBIN 30.4 pg (25-34); MEAN CORPUSCULAR HGB CONC 33.1 g/dl (32-36); MEAN PLATELET VOLUME 10.2 fL (7.4-10.4); NUCLEATED RED BLOOD CELL ABS 0.87 K/uL (0-0); PLATELET COUNT 167 K/uL (130-400); RED CELL DISTRIBUTION WIDTH CV 23.7 % (11.5-14.5); RED CELL DISTRIBUTION WIDTH SD 76.4 fL (36.4-46.3); WHITE BLOOD COUNT 12.14 K/uL (4.8-10.8)
[2017-07-17] MEDS: VANCOMYCIN HCL 125 MG/2.5ML SOLN PO SCH ×4 (05:25→22:10)
[2017-07-17] MEDS: RASPBERRY SYRUP 5 ML UDP PO SCH ×4 (05:25→22:10)
[2017-07-17] MEDS: CABOZANTINIB S MALATE 60 MG PO SCH (05:25)
[2017-07-17 05:47] LABS: CREATININE 4.08 mg/dl (0.60-1.40); POTASSIUM 4.6 mmol/L (3.5-5.1)
[2017-07-17] MEDS: CHECK FENTANYL PATCH PLACEMENT SCH ×3 (08:00→23:52)
[2017-07-17] MEDS: BOOST GLUCOSE CONTROL PO SCH ×2 (08:00→17:00)
[2017-07-17] MEDS: METHADONE HCL 10 MG TAB PO SCH ×2 (08:00→20:17)
[2017-07-17] MEDS: CALCIUM CARBONATE 500 MG CHEWABLE PO SCH ×3 (08:47→17:42)
[2017-07-17] MEDS: ASPIRIN 81 MG ECTAB PO SCH (08:54)
[2017-07-17] MEDS: LACTOBACILLUS ACIDOPHILUS (FLORANEX) TAB PO SCH ×3 (08:54→20:08)
[2017-07-17] MEDS: METOPROLOL TARTRATE 100 MG TAB PO SCH ×2 (08:55→20:11)
[2017-07-17] MEDS: FUROSEMIDE 40 MG TAB PO SCH (08:55)
[2017-07-17] MEDS: AMLODIPINE BESYLATE 5 MG TAB PO SCH (08:57)
[2017-07-17] MEDS: SENNA 8.6 MG TAB PO SCH (08:57)
[2017-07-17] MEDS: LISINOPRIL 40 MG TAB PO SCH (08:57)
[2017-07-17] MEDS: POLYETHYLENE (MIRALAX) 17 GM PACK PO SCH (08:58)
[2017-07-17] MEDS: INSULIN ASPART 100 UNITS/ML 3 ML PEN SC SCH ×4 (09:06→21:47)
[2017-07-17] MEDS: PIPERACILL/TAZOBAC IV 3.375 GM in DEXTROSE 5% 100ML 100 ML IV SCH ×2 (10:12→22:10)
[2017-07-17] MEDS ORDERED: SODIUM CHLORIDE 0.9% 1000ML 1,000 ML IV PRN (10:17)
[2017-07-17] MEDS: OXYCODONE HCL IR 5 MG TAB (IMMEDIATE RELEASE) PO PRN ×2 (10:30→14:35)
[2017-07-17] MEDS ORDERED: EPOETIN ALFA 20,000 UNITS/ML VIAL IV. ONE (11:00)
--- NOTE | 2017-07-17 11:41 | NEPHROLOGY PROGRESS NOTE ---
DATE: 07/17/2017 SUBJECTIVE: Mr. Christy says that he is not feeling quite as well as he had for the past few days. He continues to have right lower quadrant pain. He said that the onset of this discomfort seemed to begin several days ago when he was bending forward and felt a snap in his abdomen. He thinks that his pain has been about the same since that time. He denies any nausea or vomiting. He denies any change in his bowel habits and he has been moving his bowels regularly. He has no other specific complaints. He has had no shaking chills or sweats. He has had a minimal low grade fever, but he is on prednisone 40 mg daily. He has no definite symptoms of uremia or volume overload. He has had no problems with chest pain or shortness of breath. He is positive for Clostridium difficile. He is being treated. He is also on prednisone 40 mg daily. OBJECTIVE: GENERAL: On physical exam when seen, Mr. Christy appeared to be in good spirits. He was pleasant and cooperative, but still complaining of his pain. VITAL SIGNS: He is afebrile (36.7), his blood pressure 150/75, his pulse 75 and regular, respiratory rate 18, his pulse ox 97% on 4 liters of oxygen via nasal cannula. SKIN: Shows normal skin turgor. He has some very minimal ecchymoses in the right lower quadrant and right flank area. He has scars from prior procedures. His skin turgor is normal. LYMPHATICS: Show no palpable lymphadenopathy. HEAD: Normal. EYES: Grossly normal. The ocular fundi were not examined. EARS, NOSE, MOUTH AND THROAT: All unremarkable. His oral mucous membranes are moist. NECK: Supple. He has no jugular venous distention, carotid bruit or thyromegaly. CHEST: Clear to auscultation, although breath sounds are diminished at the bases. I hear no wheezes, rales or rhonchi. CARDIAC: Shows a regular rhythm. S1 and S2 are normal. He has no murmur or gallop. ABDOMEN: Shows again right lower quadrant tenderness to superficial and deep palpation. The pain is worse on deep palpation. He has no rebound tenderness. Bowel sounds are present. There is no definite organomegaly or mass. EXTREMITIES: Show no cyanosis or clubbing. He has trace to 1+ lower extremity edema that extends up to the abdominal wall, particularly on the right side. NEUROLOGIC: Shows no lateralizing changes. LABORATORY DATA: Pertinent laboratory work from today shows a white count of 12,140. His hemoglobin is 8.0, hematocrit 24.2, his platelet count 167,000. His clinical chemistries show sodium of 132 mmol/L, potassium 4.6 mmol/L, chloride 99 mmol/L, and CO2 content 27 mmol/L. His BUN is 46, his creatinine 4.08. His blood sugars vary from 140-222. His serum calcium is 8.0. His most recent serum albumin was 1.3 ! ASSESSMENT: Mr. Christy seems to be reasonably stable. However, he continues to complain of right lower quadrant abdominal pain. He has tenderness to deep palpation in the right lower quadrant. As previously noted, there was no mention of his appendix on his previous CT scan of the abdomen. His white count is elevated, but he is dealing with Clostridium difficile colitis and he is also on 40 mg of prednisone a day. Certainly that could account for his white blood cell count. His rectus hematoma might account for some of his abdominal pain, but I would still be concerned about appendicitis. RECOMMENDATIONS: I would consider doing another CT scan of his abdomen with oral contrast looking for some indication of appendicitis. Certainly, his symptoms or problems of appendicitis could be masked by his steroids. No other immediate recommendations. He will be dialyzed tomorrow and I have pleased the orders for that treatment. We will also make sure he gets EPO. We will check his iron stores as well to make sure that he is not iron deficient. Dr. Bell will assume his nephrology management tomorrow.
[2017-07-17] MEDS: SIMVASTATIN 20 MG TAB PO SCH (20:08)
[2017-07-17] MEDS: TAMSULOSIN HCL 0.4 MG CAP PO SCH (20:09)
[2017-07-17] MEDS: INSULIN GLARGINE SOLOSTAR 100 UNITS/ML 3 ML PEN SC SCH ×2 (20:25→21:46)
[2017-07-17] MEDS: ONDANSETRON INJ 2 MG/ML 2 ML VIAL IV PRN (21:50)
--- NOTE | 2017-07-17 22:50 | Family Medicine Progress Note ---
Progress Note Date of Service Jul 17, 2017. Subjective Pt evaluation today including: conversation w/ patient, physical exam, chart review, lab review, review of inpatient medication list Pain: Patient reporting 7/10 lower abdominal pain at site of rectal sheath hemato PO Intake: Tolerating PO diet well Voiding: no voiding problems Patient continues to report lower RQ abdominal pain at site of rectal sheath hematoma. He is concerned as he also thinks his hand swelling has worsened. Constitutional: + weakness, No fever, No chills, No sweats, No weight loss, No fatigue, No problem reported Respiratory: + shortness of breath, + dyspnea on exertion, + dyspnea at rest , No cough, No sputum, No wheezing, No hemoptysis, No problem reported Cardiovascular: No chest pain, No orthopnea, No PND, No edema, No claudication, No palpitations, No problem reported Abdomen: + pain, No nausea, No vomiting, No diarrhea, No constipation, No GI bleeding, No problem reported Musculoskeletal: + joint pain, + swelling All Other Systems: Reviewed and Negative Medications Current Inpatient Medications Medications (Trade) Dose Ordered Sig/Edward Route Start Time Stop Time Status Last Admin Dose Admin Acetaminophen (Tylenol Tab) 650 mg Q4H PRN PO 07/05/17 21:45 08/04/17 21:44 07/11/17 21:21 650 MG Amlodipine Besylate (Norvasc Tab) 10 mg QAM PO 07/06/17 09:00 08/05/17 08:59 07/17/17 08:57 10 MG Aspirin (Ecotrin Tab) 81 mg QAM PO 07/06/17 09:00 08/05/17 08:59 07/17/17 08:54 81 MG Calcitriol (Rocaltrol Cap) 0.25 mcg Q2D PO 07/06/17 09:00 08/05/17 08:59 07/16/17 08:47 0.25 MCG Furosemide (Lasix Tab) 40 mg QAM PO 07/06/17 09:00 08/05/17 08:59 07/17/17 08:55 40 MG Hydralazine HCl (Apresoline Tab) 100 mg TID PO 07/06/17 09:00 08/05/17 08:59 07/17/17 20:09 100 MG Lactobacillus Acidophilus (Floranex Tab) 2 tab TID PO 07/06/17 09:00 08/05/17 08:59 07/17/17 20:08 2 TAB Lisinopril (Zestril Tab) 40 mg DAILY PO 07/06/17 09:00 08/05/17 08:59 07/17/17 08:57 40 MG Metoprolol Tartrate (Lopressor Tab) 150 mg BID PO 07/06/17 09:00 08/05/17 08:59 07/17/17 20:11 150 MG Simvastatin (Zocor Tab) 20 mg QPM PO 07/06/17 21:00 08/05/17 20:59 07/17/17 20:08 20 MG Tamsulosin HCl (Flomax Cap) 0.4 mg HS PO 07/06/17 21:00 08/05/17 20:59 07/17/17 20:09 0.4 MG Cabozantinib (Cabometyx) 60 mg DAILY@0500 PO 07/06/17 05:00 08/05/17 04:59 07/17/17 05:25 60 MG Insulin Aspart (novoLOG ASPART) SLIDING SCALE G... ACHS SC 07/06/17 07:00 08/05/17 06:59 07/17/17 21:47 2 UNITS Miscellaneous Information (Check Fentanyl Patch Placement) 1 ea QS N/A 07/06/17 08:00 08/05/17 07:59 07/17/17 15:42 1 EA Glucose (Glucose 40% Gel) 15-30 GRAMS 15 GRAMS... UD PRN PO 07/06/17 04:15 08/05/17 04:14 Glucose (Glucose Chew Tab) 4-8 Tablets 4 Tabl... UD PRN PO 07/06/17 04:15 08/05/17 04:14 Dextrose (Dextrose 50% 50ML Syringe) 25-50ML OF 50% DW IV FOR... UD PRN IV 07/06/17 04:15 08/05/17 04:14 07/06/17 05:40 25 ML Glucagon (Glucagon Inj) 1 mg UD PRN SQ 07/06/17 04:15 08/05/17 04:14 Enteral Nutritional Formula (Boost Glucose Control) 1 can BIDM PO 07/06/17 16:45 08/05/17 16:44 07/17/17 17:00 1 CAN Miscellaneous (Fentanyl Patch Remove & Waste) 1 ea Q3D N/A 07/10/17 01:00 08/09/17 00:59 07/16/17 01:09 1 EA Fentanyl (Duragesic Patch) 25 mcg Q3D TD 07/07/17 01:00 07/21/17 00:59 07/16/17 01:09 25 MCG Heparin Sodium (Porcine) (Heparin 100 Unit/ml 5ml Flush) 5 ml PRN PRN IV 07/07/17 02:45 08/06/17 02:44 07/17/17 05:10 5 ML Calcium Carbonate (Tums Chew Tab) 500 mg TIDM PO 07/07/17 17:00 08/05/17 08:59 07/17/17 17:42 500 MG Ondansetron HCl (Zofran Inj) 4 mg Q4H PRN IV 07/11/17 03:00 08/10/17 02:59 07/12/17 20:50 4 MG Ondansetron HCl (Zofran Tab) 4 mg Q6H PRN PO 07/11/17 10:15 08/10/17 10:14 Prochlorperazine Edisylate 5 mg/ Syringe 5 ml @ 5 mls/min Q4H PRN IV 07/11/17 14:00 08/10/17 13:59 Lactulose (Chronulac Syrup) 30 gm Q4H PRN PO 07/11/17 16:45 08/10/17 16:44 Senna (Senokot Tab) 8.6 mg QAM PO 07/12/17 08:00 08/11/17 07:59 07/17/17 08:57 8.6 MG Polyethylene (Miralax Powder Packet) 17 gm DAILY PO 07/11/17 16:45 08/05/17 02:29 07/17/17 08:58 17 GM Raspberry (Raspberry Syrup 5ml Cup) 5 ml Q6H PO 07/12/17 17:00 07/26/17 16:59 07/17/17 17:41 5 ML Vancomycin HCl (Consult) 1 ea UD PRN N/A 07/13/17 17:00 08/12/17 16:59 Oxycodone HCl (Roxicodone Immediate Rel Tab) 10 mg Q4H PRN PO 07/14/17 09:15 08/05/17 08:59 07/17/17 14:35 10 MG Methadone HCl (Dolophine Tab) 20 mg BID PO 07/14/17 09:30 07/28/17 09:29 07/17/17 20:17 20 MG Prednisone (PredniSONE TAB) 40 mg DAILY PO 07/15/17 08:00 08/05/17 08:59 07/17/17 08:58 40 MG Piperacillin Sod/ Tazobactam Sod 3.375 gm/Dextrose 115 ml @ 28.75 mls/ hr Q12@1000,2200 IV 07/14/17 22:00 07/21/17 21:59 07/17/17 10:12 28.75 MLS/HR Piperacillin Sod/ Tazobactam Sod (Consult) 1 ea UD PRN N/A 07/14/17 15:15 08/13/17 15:14 Vancomycin HCl (Vancomycin Oral Soln) 125 mg Q6H PO 07/15/17 17:00 07/26/17 16:59 07/17/17 17:41 125 MG Insulin Glargine (Lantus Solostar Pen) 8 units HS SC 07/16/17 21:00 08/05/17 20:59 07/17/17 21:46 6 UNITS Sodium Chloride 1,000 ml @ 0 mls/hr Q0M PRN IV 07/17/17 10:17 07/17/17 22:16 Objective Vital Signs Date Time Temp Pulse Resp B/P (MAP) Pulse Ox O2 Delivery O2 Flow Rate FiO2 07/17/17 19:22 36.3 79 18 136/71 (92) 99 Nasal Cannula 4.0 07/17/17 16:00 98 Nasal Cannula 4.0 07/17/17 15:50 36.4 78 20 145/74 (97) 98 Nasal Cannula 4.0 07/17/17 11:25 36.7 80 20 150/78 (102) 98 4.0 07/17/17 10:56 98 Nasal Cannula 4.0 07/17/17 07:29 36.7 75 18 150/75 (100) 97 Nasal Cannula 4.0 07/17/17 04:00 37.2 92 20 139/79 (99) 97 07/17/17 00:26 37.0 88 16 146/80 (102) 98 07/17/17 00:00 Nasal Cannula 4.0 Physical Exam General Appearance: WD/WN, no apparent distress Eyes: normal inspection, PERRL, EOMI ENT: normal ENT inspection, hearing grossly normal, pharynx normal Neck: supple, no adenopathy, no JVD Respiratory/Chest: chest non-tender, no accessory muscle use Cardiovascular: regular rate, rhythm, no edema, no gallop, no JVD, no murmur Abdomen: normal bowel sounds, soft, + tenderness (RLQ), + pertinent finding ( Hematoma, palpable in RLQ around 7 cm x4 cm) Extremities: normal inspection, no pedal edema, + swelling (left arm cellulitis , stable since yesterday) Neurologic/Psychiatric: 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 as tested, no motor/sensory deficits, alert Skin: normal color, warm/dry Laboratory Results 07/17/17 05:02 07/17/17 05:02 Test 07/17/17 05:02 07/17/17 10:29 07/17/17 19:53 Red Blood Count 2.63 M/uL (4.7-6.1) Mean Corpuscular Volume 92.0 fL (80-100) Mean Corpuscular Hemoglobin 30.4 pg (25-34) Mean Corpuscular Hemoglobin Concent 33.1 g/dl (32-36) RDW Standard Deviation 76.4 fL (36.4-46.3) RDW Coefficient of Variation 23.7 % (11.5-14.5) Mean Platelet Volume 10.2 fL (7.4-10.4) Nucleated RBC Absolute Count (auto) 0.87 K/uL (0-0) Nucleated Red Blood Cells % 7.1 % Anion Gap 6.0 mmol/L (3-11) Est Creatinine Clear Calc Drug Dose 19.1 ml/min Estimated GFR () 16.9 Estimated GFR (Non- 14.6 BUN/Creatinine Ratio 11.2 (10-20) Calcium Level 8.0 mg/dl (8.5-10.1) Iron Level 99 mcg/dl (35-175) Total Iron Binding Capacity 135 mcg/dl (250-450) Transferrin 119 mg/dl (200-360) Transferrin % Saturation 59 % (20-50) Ferritin 1870.4 ng/ml (8.0-388.0) Bedside Glucose 124 mg/dl (70-99) Assessment and Plan Mr. Christy is a 61 yo M with PMH ESRD on HD, RCC, DMII. Admitted for L hand cellulitis having failed outpatient management. 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 infectious process. Encephalopathy - improved - Unclear whether toxic from narcotics vs. metabolic vs. other - Decreased Oxycodone from 20mg to 10mg QID PRN - Ammonia normal at 26.4 - VBG w/ot significant hypercarbia PCO2 - 50 - Consider head CT to rule out mets from RCC if worsens Diarrhea - C.Diff - remains afebrile - C.diff positive - On oral vancomycin - day 6 - urine cx negative, blood cultures negative - CT abdomen - small right rectus sheath hematoma, no new lymphadenopathy, lesions of right kidney, unchanged from before - Stools now softly formed Abdominal Pain - stable - H&H stable - secondary to rectus sheath hematoma - apply warm k-pad to the area for symptomatic relief - hold heparin for dvt prophylaxis and stop giving insulin injections in that area Left hand cellulitis - improving - ID consulted. Recommendations: - was on ertapenem and dapto but abx broadened. Currently on vanc PO and zosyn IV - day 10 of abx - possible reflex sympathetic dystrophy - consider neuro consult in the future +/- nerve conduction studies - MRI suggested cellulitis with myositis. No osteomyelitis, no abscess - Ortho consulted: Dr. Marie: no surgical indications at this time - Given continued pain - Rheumatology consulted - 1 dose Solu-medrol 40mg IV (given on 07/09) - Continue home dose of steroids - CK and uric acid within normal limits - WBC normal - warm compresses to help with pain SOB - bilateral PNA on imaging likely DOCUMENT IMAGE TECHNICIAN given hx vs. infectious - new oxygen demand - on 4L and SOB without it - pulmonary consult - CT - Extensive groundglass opacity & multifocal consolidation since previous CT. Possible cryptogenic organizing pneumonia/drug related pneumonitis - increased prednisone from 10mg daily to 40mg daily. Will taper by 10 weekly - change antibiotics from IV aztreonam to IV zosyn to include anaerobe coverage - consider switching to levaquin after 7 days - speech/swallow eval ordered - Continue O2 supplementation to maintain SaO2 >92%. - 2 step on discharge ESRD HD secondary to RCC/ s/p left nephrectomy - Nephrology Consulted - HD yesterday - receives HD on Tuesdays, and Saturdays - appreciate oncology's input: - continue cabozantinib -> although does contain warning for GI perf and fistula - may repeat CT scan if he does not improve - next scans planned for July Chronic Pain - continue fentanyl - Dr. Jackson consulted. Recommendations - continue prn oxycodone - dose decreased to 10mg q4h prn in light of encephalopathy - pt was on increased dose of methadone at 20 mg BID since 06/20 - in the hospital, he has been on 10mg TID, will increase to previous regimen of 20mg BID - Planned discussion for future goals DMII - 7 units of Lantus with sliding scale - BSG AC HS Anemia - Hgb today stable 8.0 - nephrology -> continue epogen 42629 units and venofer 100mg - continue to monitor HTN/hyperlipidemia - continue asa 81 mg, furosemide 40 mg - continue hydralazine 100 mg tid, amlodipine 10 mg daily, metoprolol 150 mg bid and lisinopril 40 mg daily - continue simvastatin 20 mg daily - I&O and daily weights BPH - continue tamsulosin 0.4 mg CKD Bone Mineral Disease - Continue oral Calcitriol - Continue CaCO3 500 mg with meals DVT Prophylaxis: SCDs Code: Full Disposition: remains on med/onc. Discussion about d/c to [facility] however unlikely to qualify given deconditioned status; referral also placed at [facility] nursing care on 07/14 Resident Physician Supervision Note: I was present with PGY1 Dr. Gia Pitt during the history and exam. I discussed the case with the resident and agree with the findings and plan as documented in the note. Any exceptions or clarifications are listed here: none. pt c/o RLQ abd pain, worse with movements or bending also concerned about left hand and that it may be more swollen than previous no dyspnea at rest no cough VSS; no fever gen - chronically ill, awake/alert today neck - no JVD heart - RRR lungs - CTA b/l, decreased BS right base abd - soft, ND, no HSM, tender RLQ over area of rectus sheath hematoma - no change in overall size of hematoma based on my exam ext - mild left hand edema - no change from prior exams skin - no cellulitis, left hand; minimal ecchymoses over right lower quadrant from hematoma A/P: 1. encephalopathy - resolved. Suspect due to pain medications. If he has recurrent mental status issues then obtain head CT, r/o mets from his renal cell ca. 2. rectus sheath hematoma - stable H/H, but continues with pain. In my experience these hematomas in this location last a long time and pain control is challenging. Cont pain meds, heat, etc. Follow H/H for any worsening or suggestion that hematoma is enlarging. 3. c. diff colitis - vanco PO qid; day #6 of Rx - improved 4. recent left hand cellulitis - was on ertapenem & daptomycin w/ improvement; these abx have been broadened to zosyn/vanco due to possible pneumonia; overall stable 5. b/l pneumonia on imaging - DOCUMENT IMAGE TECHNICIAN vs infectious pneumonia; pulmonary has seen - they have increased his prednisone to 40mg daily; on zosyn/vanco, day #4 and # 5, respectively - stable but no decrease in O2 requirement plan about 7 days each of zosyn/vanco OR as recommended by infectious disease 6. 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 anemia - repeat CBC stable 8. ESRD on HD - appreciate nephrology assistance for HD needs no significant change today in status dispo planning for rehab in process Documented By: Clint Zepeda MD Resident Tracking Resident Involvement: Resident Care Provided Care Provided: Adult [facility] Medicine
[2017-07-17] MEDS ORDERED: SIMETHICONE 80 MG CHEW PO STA (23:07)
[2017-07-17] MEDS ORDERED: NURSING VERBAL MED ORDER ONE (23:15)
[2017-07-17] MEDS ORDERED: SIMETHICONE 80 MG CHEW PO PRN (23:15)
[2017-07-18] VITALS (25 sets, daily range): BP systolic 73–156; BP diastolic 38–106; PULSE 57–97; TEMP 36.4–37.1; O2SAT 92–96
[2017-07-18] MEDS: RASPBERRY SYRUP 5 ML UDP PO SCH ×4 (05:10→21:36)
[2017-07-18] MEDS: VANCOMYCIN HCL 125 MG/2.5ML SOLN PO SCH ×4 (05:10→21:36)
[2017-07-18] MEDS: CABOZANTINIB S MALATE 60 MG PO SCH (05:11)
[2017-07-18 05:30] LABS: HEMATOCRIT 28.5 % (42-52); HEMOGLOBIN 8.9 g/dL (14.0-18.0); MEAN CELL VOLUME 92.5 fL (80-100); MEAN CORPUSCULAR HEMOGLOBIN 28.9 pg (25-34); MEAN CORPUSCULAR HGB CONC 31.2 g/dl (32-36); MEAN PLATELET VOLUME 11.2 fL (7.4-10.4); NUCLEATED RED BLOOD CELL ABS 0.85 K/uL (0-0); PLATELET COUNT 214 K/uL (130-400); RED CELL DISTRIBUTION WIDTH CV 24.4 % (11.5-14.5); RED CELL DISTRIBUTION WIDTH SD 78.8 fL (36.4-46.3)
[2017-07-18 06:10] LABS: CALCIUM 8.3 mg/dl (8.5-10.1); POTASSIUM 4.8 mmol/L (3.5-5.1)
--- NOTE | 2017-07-18 07:10 | PULMONARY PROGRESS NOTE ---
DATE: 07/17/2017 SUBJECTIVE: The patient was seen and examined. He complains mostly of right lower quadrant pain that is somewhat positional. He is moving the stools, which are loose, but formed. No melena or hematemesis or hematochezia. Although he states his breathing is slightly improved since admission, it still problematic for him. He has a dry nonproductive cough. He denies pleuritic pain. OBJECTIVE: CURRENT VITAL SIGNS: Temperature 36.7, pulse 75 and regular, respiratory rate 18, blood pressure 150/75 in the right arm, O2 sat 97% on 4 liters. SKIN: Without lesion. HEENT: Atraumatic, normocephalic, PERRLA, EOMI. Conjunctivae pink. Sclerae nonicteric. Fundi poorly visualized. NECK: Veins not distended at 45 degrees. LUNGS: Decreased breath sounds with dullness at the right base with scattered rales, no audible wheezes. CARDIAC EXAM: Regular rate and rhythm. I do not appreciate a gallop. ABDOMEN: Soft, protuberant, active bowel sounds. There is tenderness in the right lower quadrant without rebound tenderness or guarding. EXTREMITIES: Trace pedal edema. No clubbing. Peripheral cyanosis. Left arm AV fistula noted. LABORATORY WORK: Urine culture negative for blood. Stool cultures positive for C. diff toxin B gene. Blood cultures are negative. Current H&H 8.0 and 24.2 with hypochromic microcytic indices, white count 12,100, BUN 46, creatinine 4.08. Chest CT scan done 3 days ago was reviewed. In comparison to 05/19/2017, it shows interval development of extensive ground-glass opacity, multifocal areas of consolidation that is new, possibly representing multifocal pneumonia or cryptogenic organizing pneumonia/drug related pneumonitis or metastatic disease, small right and trace left pleural effusion, decreased size of the retrocrural lymph nodes since April 2017. OVERALL ASSESSMENT AND PLAN: 1. Acute hypoxic respiratory failure, right-sided pleural effusion and possible rounded atelectasis, multifocal ground-glass opacities. 2. Renal cell carcinoma. 3. Chronic renal failure, on hemodialysis. The patient currently is on 40 mg of prednisone, does feel less dyspneic, is well saturated on 4 liters. The effusion looks small and I do not believe would require a drainage or thoracentesis at this point in time. I think covering for a cryptogenic organizing pneumonia with steroids is adan and would slowly taper as recommended by Dr. Clark by 10 mg weekly. We would continue current antibiotic selection. The ground-glass opacities may very well represent pulmonary edema and the patient does appear to be fluid overloaded. The right lower quadrant pain according to Dr. Stewart's notation has been evaluated in the past and may be related to a previous right rectus sheath hematoma, although the pain as mentioned appears superficial. With the patient on steroid therapy, one would have to be concerned as well about an appendicitis, although I think that would be less likely, but possibly masked by the steroid therapy. Fluid status as per evaluation as per Dr. Stewart and current hemodialysis schedule can be tapered if he feels that additional fluid needs to be removed. We would repeat chest x-ray tomorrow and see if we have been making some progress with our therapy. We would continue to follow.
[2017-07-18] MEDS: LACTOBACILLUS ACIDOPHILUS (FLORANEX) TAB PO SCH ×3 (07:48→20:05)
[2017-07-18] MEDS: CALCIUM CARBONATE 500 MG CHEWABLE PO SCH ×3 (07:48→17:31)
[2017-07-18] MEDS: CALCITRIOL 0.25 MCG CAP PO SCH (07:48)
[2017-07-18] MEDS: METHADONE HCL 10 MG TAB PO SCH ×2 (07:49→20:07)
[2017-07-18] MEDS: OXYCODONE HCL IR 5 MG TAB (IMMEDIATE RELEASE) PO PRN (07:49)
[2017-07-18] MEDS: SENNA 8.6 MG TAB PO SCH (07:50)
[2017-07-18] MEDS: POLYETHYLENE (MIRALAX) 17 GM PACK PO SCH (07:50)
[2017-07-18] MEDS: CHECK FENTANYL PATCH PLACEMENT SCH ×2 (07:56→15:54)
[2017-07-18] MEDS: METOPROLOL TARTRATE 100 MG TAB PO SCH ×2 (08:00→20:06)
[2017-07-18] MEDS: AMLODIPINE BESYLATE 5 MG TAB PO SCH (08:00)
[2017-07-18] MEDS: LISINOPRIL 40 MG TAB PO SCH (08:00)
[2017-07-18] MEDS: FUROSEMIDE 40 MG TAB PO SCH (08:00)
[2017-07-18] MEDS: BOOST GLUCOSE CONTROL PO SCH ×2 (08:21→17:25)
--- NOTE | 2017-07-18 08:53 | Palliative Care Progress Note ---
Palliative Care Progress Note Date of Service Jul 18, 2017. Subjective Pt evaluation today including: conversation w/ patient, physical exam, chart review, lab review Pain: Improved per pt - increases with movement PO Intake: good Voiding: no incontinence Pt reports pain in RLQ is better today compared to yesterday. Pt is starting day 5 of his increased methadone dose - takes 5-7 days to reach steady state. Pt is requiring only 2 prn oxy per day on average for break through pain. Pt smiling and laughing at times during exam . Pt's creat is up top 5.0, albumin is low at 1.3. Pt with cushingoid faces. Review of Systems Constitutional: No fever, No chills Eyes: No eye pain ENT: No hearing loss Respiratory: + dyspnea on exertion, No cough, No shortness of breath Cardiac: No chest pain Abdomen: + pain (RLQ pain suspected to be due to rectus sheath hematoma) Musculoskeletal: + problem reported (increased swelling of L hand ) Male : No urinary frequency Neurologic: + memory loss (mild), + weakness Psychiatric: No depression symptoms Heme: No abnormal bleeding/bruising Endo: + fatigue Skin: + problem reported (redness and peeling of skin of L hand) Objective Vital Signs Date Time Temp Pulse Resp B/P (MAP) Pulse Ox O2 Delivery O2 Flow Rate FiO2 07/18/17 07:18 36.5 81 20 137/72 (93) 96 Nasal Cannula 4.0 07/18/17 03:27 36.7 86 17 122/68 (86) 92 Nasal Cannula 4.0 Humidified Oxygen 07/18/17 00:00 Nasal Cannula 4.0 07/17/17 23:06 36.6 86 20 149/79 (102) 98 Nasal Cannula 4.0 07/17/17 19:22 36.3 79 18 136/71 (92) 99 Nasal Cannula 4.0 07/17/17 16:00 98 Nasal Cannula 4.0 07/17/17 15:50 36.4 78 20 145/74 (97) 98 Nasal Cannula 4.0 07/17/17 11:25 36.7 80 20 150/78 (102) 98 4.0 07/17/17 10:56 98 Nasal Cannula 4.0 Physical Exam General Appearance: + mild distress Eyes: EOMI ENT: hearing grossly normal Neck: supple Respiratory/Chest: lungs clear Cardiovascular: + tachycardia Abdomen: normal bowel sounds, + pertinent finding (pt able to press on painful area in RLQ without wincing) Extremities: + pertinent finding (LE edema - no significant change) Neurologic/Psychiatric: + abnormal gait, + motor weakness Skin: warm/dry Laboratory Results Last 24 Hours Test 07/17/17 10:29 07/17/17 11:18 07/17/17 16:32 07/17/17 19:53 Iron Level 99 mcg/dl Total Iron Binding Capacity 135 mcg/dl Transferrin 119 mg/dl Transferrin % Saturation 59 % Ferritin 1870.4 ng/ml Bedside Glucose 96 mg/dl 83 mg/dl 124 mg/dl Test 07/18/17 05:20 07/18/17 07:30 White Blood Count 12.60 K/uL Red Blood Count 3.08 M/uL Hemoglobin 8.9 g/dL Hematocrit 28.5 % Mean Corpuscular Volume 92.5 fL Mean Corpuscular Hemoglobin 28.9 pg Mean Corpuscular Hemoglobin Concent 31.2 g/dl RDW Standard Deviation 78.8 fL RDW Coefficient of Variation 24.4 % Platelet Count 214 K/uL Mean Platelet Volume 11.2 fL Nucleated RBC Absolute Count (auto) 0.85 K/uL Nucleated Red Blood Cells % 6.7 % Sodium Level 133 mmol/L Potassium Level 4.8 mmol/L Chloride Level 101 mmol/L Carbon Dioxide Level 27 mmol/L Anion Gap 5.0 mmol/L Blood Urea Nitrogen 55 mg/dl Creatinine 5.00 mg/dl Est Creatinine Clear Calc Drug Dose 15.6 ml/min Estimated GFR () 13.2 Estimated GFR (Non- 11.4 BUN/Creatinine Ratio 11.1 Random Glucose 150 mg/dl Calcium Level 8.3 mg/dl Random Vancomycin Level 15.2 mcg/ml Bedside Glucose 153 mg/dl Assessment and Plan (1) Pain due to neoplasm Status: Chronic Assessment & Plan: Improved on his previous methadone dose - increased on - today is day 5 of 20 mg BID, only using oxy twice a day for BTP (2) Cellulitis of left hand Status: Acute Assessment & Plan: Now with increased swelling - ? myositis vs Reflex Sympathetic Dystrophy (3) ESRD (end stage renal disease) on dialysis Status: Acute Assessment & Plan: Continue HD per Nephro (4) Hypoxemia requiring supplemental oxygen Status: Acute Assessment & Plan: Stable (5) High risk medication use Status: Acute Assessment & Plan: Will cont to follow - no further adjustments in methadone planned at this time. Cont prn oxy for increased acute pain I think pt would [facility] - can follow pt and work with pt and family on future care needs Palliative Performance Scale: 50 % Continued [facility] stay due to: ambulation difficulties Discharge planning: uncertain
--- NOTE | 2017-07-18 09:11 | Pharmacy Progress Note ---
Pharmacy Abx Dose Progress Nt Date of Service Jul 18, 2017. Pharmacy Dosing Scope The patient is currently receiving the following antimicrobial agents per Pharmacy consult: Vancomycin and Zosyn IV Objective Height (Feet): 5 Height (Inches): 10.00 Weight (Kilograms): 84.100 Vital Signs (Past 12Hrs) Vital Signs Past 12 Hours Date Time Temp Pulse Resp B/P (MAP) Pulse Ox O2 Delivery O2 Flow Rate FiO2 07/18/17 07:18 36.5 81 20 137/72 (93) 96 Nasal Cannula 4.0 07/18/17 03:27 36.7 86 17 122/68 (86) 92 Nasal Cannula 4.0 Humidified Oxygen 07/18/17 00:00 Nasal Cannula 4.0 07/17/17 23:06 36.6 86 20 149/79 (102) 98 Nasal Cannula 4.0 Lab Results (24Hrs) Laboratory Tests (24 Hours) Test 07/18/17 05:20 White Blood Count 12.60 K/uL (4.8-10.8) H Micro Results Date/Time Source Procedure Growth Status 07/12/17 07:34 Blood Blood Culture - Final NO GROWTH Complete 07/12/17 07:18 Blood Blood Culture - Final NO GROWTH Complete 07/05/17 22:21 Blood Blood Culture - Final NO GROWTH Complete 07/05/17 22:04 Blood Blood Culture - Final NO GROWTH Complete 07/14/17 11:25 Nasal MRSA DNA Surveillance Screen - Final Specimen Negative for MRSA by DNA Probe Complete 07/05/17 21:00 Nasal MRSA DNA Surveillance Screen - Final Specimen Negative for MRSA by DNA Probe Complete 07/12/17 08:20 Stool C.difficile Toxin B Gene (PCR) - Final Positive for C. difficile toxin B gene Complete 07/12/17 11:50 Urine , Clean Catch Urine Culture - Final NO GROWTH - LESS THAN 1,000 COLONIES/ML Complete Assessment & Plan Assessment 61 year old male receiving vancomycin and Zosyn for treatment of pneumonia, possibly cryptogenic organizing, as well as worsening hand cellulitis from previous admission (which he was treated with daptomycin and Invanz as an outpatient). He is also on po vancomycin for C diff. Day # 6 of antimicrobial therapy, ID consulted All inpatient cultures, except for stool, have been negative Plan Vancomycin IV * Random level of 15.2 mcg/mL is therapeutic * Patient is due for dialysis today so will re-dose after dialysis * Vancomycin 500 mg IV x 1 today after dialysis * Next random level for 07/20 AM - will be prior to next dialysis if patient remains on TuTa schedule Piperacillin/tazobactam * Continue 3.375 g IV extended infusion every 12 hours for ESRD on dialysis Pharmacy will continue to follow and will adjust dose/frequency as necessary. Thank you.
[2017-07-18] MEDS: INSULIN ASPART 100 UNITS/ML 3 ML PEN SC SCH ×4 (09:25→20:33)
--- NOTE | 2017-07-18 10:11 | Nephrology Progress Note ---
Nephrology Progress Note Date of Service Jul 18, 2017. Chief Complaint Provide inpatient HD and assist w/ medical management of this patient w/ ESRD Subjective Mr. Christy was seen & examined in his hospital room this morning. He has persistent RLQ abdominal discomfort. He suffered one episode of emesis last night. Mr. Christy does report that his R hand cellulitis is improved. He is currently breathing comfortably on O2 at 4 L / min NC Review of Systems Constitutional: No fever Cardiovascular: No chest pain Abdomen: + pain, + nausea, + vomiting Extremities: No leg edema A complete review of systems was performed. Pertinent positives are noted above. All other systems are negative. Vital Signs Last 8 Hrs Date Time Temp Pulse Resp B/P (MAP) Pulse Ox O2 Delivery O2 Flow Rate FiO2 07/18/17 07:18 36.5 81 20 137/72 (93) 96 Nasal Cannula 4.0 07/18/17 03:27 36.7 86 17 122/68 (86) 92 Nasal Cannula 4.0 Humidified Oxygen Last Recorded Weight Weight (Kilograms): 84.100 Physical Exam General Appearance: no apparent distress Head: normocephalic, atraumatic Eyes: PERRL, EOMI Neck: no adenopathy Respiratory/Chest: lungs clear, no respiratory distress Cardiovascular: regular rate, rhythm Abdomen/GI: soft (pain w/ deep palpation RLQ of abdomen. No guarding) Extremities/Musculoskelatal: + pertinent finding (trace pretibial edema) Neurologic/Psych: alert, oriented x 3 Family History Cervical cancer Diabetes mellitus Heart disease Hypertension Myocardial infarction Pancreatic cancer Prostate cancer Negative for CKD/ESRD Social History Smokeless Tobacco Use: No Alcohol Use: none Drug Use: none Marital Status: single Housing Status: lives alone Occupation: disabled Single, retired. Formerly worked for [employer]. Never a smoker. Laboratory Results Past 24 Hours 07/18/17 05:20 07/18/17 05:20 Test 07/17/17 10:29 07/17/17 11:18 07/17/17 16:32 07/17/17 19:53 Iron Level 99 mcg/dl (35-175) Total Iron Binding Capacity 135 mcg/dl (250-450) Transferrin 119 mg/dl (200-360) Transferrin % Saturation 59 % (20-50) Ferritin 1870.4 ng/ml (8.0-388.0) Bedside Glucose 96 mg/dl (70-99) 83 mg/dl (70-99) 124 mg/dl (70-99) Test 07/18/17 05:20 07/18/17 07:30 Red Blood Count 3.08 M/uL (4.7-6.1) Mean Corpuscular Volume 92.5 fL (80-100) Mean Corpuscular Hemoglobin 28.9 pg (25-34) Mean Corpuscular Hemoglobin Concent 31.2 g/dl (32-36) RDW Standard Deviation 78.8 fL (36.4-46.3) RDW Coefficient of Variation 24.4 % (11.5-14.5) Mean Platelet Volume 11.2 fL (7.4-10.4) Nucleated RBC Absolute Count (auto) 0.85 K/uL (0-0) Nucleated Red Blood Cells % 6.7 % Anion Gap 5.0 mmol/L (3-11) Est Creatinine Clear Calc Drug Dose 15.6 ml/min Estimated GFR () 13.2 Estimated GFR (Non- 11.4 BUN/Creatinine Ratio 11.1 (10-20) Calcium Level 8.3 mg/dl (8.5-10.1) Random Vancomycin Level 15.2 mcg/ml Bedside Glucose 153 mg/dl (70-99) Allergies Coded Allergies: Iodinated Diagnostic Agents (Verified Allergy, Unknown, oil based, severe headaches, 06/20/17) EVENT OCCURED IN 1971, PT STATES HE HAS HAD 3 DIFFERENT WATER BASED IVP DYES WITH NO ISSUE Medications Current Inpatient Medications Medications (Trade) Dose Ordered Sig/Edward Route Start Time Stop Time Status Last Admin Dose Admin Acetaminophen (Tylenol Tab) 650 mg Q4H PRN PO 07/05/17 21:45 08/04/17 21:44 07/11/17 21:21 650 MG Amlodipine Besylate (Norvasc Tab) 10 mg QAM PO 07/06/17 09:00 08/05/17 08:59 07/17/17 08:57 10 MG Aspirin (Ecotrin Tab) 81 mg QAM PO 07/06/17 09:00 08/05/17 08:59 07/17/17 08:54 81 MG Calcitriol (Rocaltrol Cap) 0.25 mcg Q2D PO 07/06/17 09:00 08/05/17 08:59 07/18/17 07:48 0.25 MCG Furosemide (Lasix Tab) 40 mg QAM PO 07/06/17 09:00 08/05/17 08:59 07/17/17 08:55 40 MG Hydralazine HCl (Apresoline Tab) 100 mg TID PO 07/06/17 09:00 08/05/17 08:59 07/17/17 20:09 100 MG Lactobacillus Acidophilus (Floranex Tab) 2 tab TID PO 07/06/17 09:00 08/05/17 08:59 07/18/17 07:48 2 TAB Lisinopril (Zestril Tab) 40 mg DAILY PO 07/06/17 09:00 08/05/17 08:59 07/17/17 08:57 40 MG Metoprolol Tartrate (Lopressor Tab) 150 mg BID PO 07/06/17 09:00 08/05/17 08:59 07/17/17 20:11 150 MG Simvastatin (Zocor Tab) 20 mg QPM PO 07/06/17 21:00 08/05/17 20:59 07/17/17 20:08 20 MG Tamsulosin HCl (Flomax Cap) 0.4 mg HS PO 07/06/17 21:00 08/05/17 20:59 07/17/17 20:09 0.4 MG Cabozantinib (Cabometyx) 60 mg DAILY@0500 PO 07/06/17 05:00 08/05/17 04:59 07/18/17 05:11 60 MG Insulin Aspart (novoLOG ASPART) SLIDING SCALE G... ACHS SC 07/06/17 07:00 08/05/17 06:59 07/18/17 09:25 7 UNITS Miscellaneous Information (Check Fentanyl Patch Placement) 1 ea QS N/A 07/06/17 08:00 08/05/17 07:59 07/18/17 07:56 1 EA Glucose (Glucose 40% Gel) 15-30 GRAMS 15 GRAMS... UD PRN PO 07/06/17 04:15 08/05/17 04:14 Glucose (Glucose Chew Tab) 4-8 Tablets 4 Tabl... UD PRN PO 07/06/17 04:15 08/05/17 04:14 Dextrose (Dextrose 50% 50ML Syringe) 25-50ML OF 50% DW IV FOR... UD PRN IV 07/06/17 04:15 08/05/17 04:14 07/06/17 05:40 25 ML Glucagon (Glucagon Inj) 1 mg UD PRN SQ 07/06/17 04:15 08/05/17 04:14 Enteral Nutritional Formula (Boost Glucose Control) 1 can BIDM PO 07/06/17 16:45 08/05/17 16:44 07/18/17 08:21 1 CAN Miscellaneous (Fentanyl Patch Remove & Waste) 1 ea Q3D N/A 07/10/17 01:00 08/09/17 00:59 07/16/17 01:09 1 EA Fentanyl (Duragesic Patch) 25 mcg Q3D TD 07/07/17 01:00 07/21/17 00:59 07/16/17 01:09 25 MCG Heparin Sodium (Porcine) (Heparin 100 Unit/ml 5ml Flush) 5 ml PRN PRN IV 07/07/17 02:45 08/06/17 02:44 07/18/17 05:18 5 ML Calcium Carbonate (Tums Chew Tab) 500 mg TIDM PO 07/07/17 17:00 08/05/17 08:59 07/18/17 07:48 500 MG Ondansetron HCl (Zofran Inj) 4 mg Q4H PRN IV 07/11/17 03:00 08/10/17 02:59 07/17/17 21:50 4 MG Ondansetron HCl (Zofran Tab) 4 mg Q6H PRN PO 07/11/17 10:15 08/10/17 10:14 Prochlorperazine Edisylate 5 mg/ Syringe 5 ml @ 5 mls/min Q4H PRN IV 07/11/17 14:00 08/10/17 13:59 Lactulose (Chronulac Syrup) 30 gm Q4H PRN PO 07/11/17 16:45 08/10/17 16:44 Senna (Senokot Tab) 8.6 mg QAM PO 07/12/17 08:00 08/11/17 07:59 07/17/17 08:57 8.6 MG Polyethylene (Miralax Powder Packet) 17 gm DAILY PO 07/11/17 16:45 08/05/17 02:29 07/18/17 07:50 17 GM Raspberry (Raspberry Syrup 5ml Cup) 5 ml Q6H PO 07/12/17 17:00 07/26/17 16:59 07/18/17 05:10 5 ML Vancomycin HCl (Consult) 1 ea UD PRN N/A 07/13/17 17:00 08/12/17 16:59 Oxycodone HCl (Roxicodone Immediate Rel Tab) 10 mg Q4H PRN PO 07/14/17 09:15 08/05/17 08:59 07/18/17 07:49 10 MG Methadone HCl (Dolophine Tab) 20 mg BID PO 07/14/17 09:30 07/28/17 09:29 07/18/17 07:49 20 MG Prednisone (PredniSONE TAB) 40 mg DAILY PO 07/15/17 08:00 08/05/17 08:59 07/17/17 08:58 40 MG Piperacillin Sod/ Tazobactam Sod 3.375 gm/Dextrose 115 ml @ 28.75 mls/ hr Q12@1000,2200 IV 07/14/17 22:00 07/21/17 21:59 07/17/17 22:10 28.75 MLS/HR Piperacillin Sod/ Tazobactam Sod (Consult) 1 UD PRN N/A 07/14/17 15:15 08/13/17 15:14 Vancomycin HCl (Vancomycin Oral Soln) 125 mg Q6H PO 07/15/17 17:00 07/26/17 16:59 07/18/17 05:10 125 MG Insulin Glargine (Lantus Solostar Pen) 8 units HS SC 07/16/17 21:00 08/05/17 20:59 07/17/17 21:46 6 UNITS Simethicone (Mylicon Chew Tab) 80 mg Q6H PRN PO 07/17/17 23:15 08/16/17 23:14 Vancomycin HCl 500 mg/Sodium Chloride 260 ml @ 125 mls/hr 1400 IV 07/18/17 14:00 07/18/17 16:05 Impression (1) Cellulitis of left hand (2) ESRD (end stage renal disease) on dialysis (3) Renal cell carcinoma (4) Anemia (5) Diabetes type 2, controlled Mr. Padilla Christy is a 61-year-old male with ESRD and metastatic RCC. He underwent left nephrectomy in 2016. He is maintained on Cabometyx. Pulmonary evaluation yesterday was reviewed. CT scan reviewed this morning. Bilateral multifocal changes including ground glass opacities are noted. Clinical presentation concerning for multifocal pneumonia, possible cryptogenic organizing pneumonia or drug related pneumonitis. Bilateral effusions are also noted. Padilla previously could not tolerate Sutent due to high grade proteinuria and poorly-controlled hypertension. Unfortunately, Opdivo caused arthralgia, colitis and possible pneumonitis. 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 The dose was increased yesterday to assist with pulmonary symptoms including hypoxia. Mr. Christy was admitted with persistent soft tissue infection of the left hand. This improved with antibiotics (treatment with ertapenem and daptomycin). Due to concern for possible evolving pneumonia. Current antibiotics include Zosyn and vancomycin. Padilla developed abdominal pain associated with an abdominal wall hematoma. Stool was checked for C diff and he is on treatment for this as well. Recommendations END STAGE RENAL DISEASE: -- HD today per TTS scheduled -- Attempt 3 L UF ANEMIA: -- Will provide IDALIA w/ HD treatments HYPERTENSION: -- Blood pressure is currently well controlled. Continue current antihypertensive regimen. No change at present. 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 Given persistent RLQ pain will discuss w/ primary service follow up study w/ contrast.
[2017-07-18] MEDS ORDERED: EPOETIN ALFA 10,000 UNITS/ML VIAL IV SCH (11:15)
[2017-07-18] MEDS ORDERED: EPOETIN ALFA INJ 8,000 UNITS in SYRINGE 0 ML IV. SCH (12:00)
[2017-07-18] MEDS ORDERED: VANCOMYCIN INJ 500 MG in SODIUM CHLORIDE 0.9% 250ML 250 ML IV SCH (14:00)
[2017-07-18] MEDS: ASPIRIN 81 MG ECTAB PO SCH (14:32)
[2017-07-18] MEDS: PIPERACILL/TAZOBAC IV 3.375 GM in DEXTROSE 5% 100ML 100 ML IV SCH ×2 (14:33→21:35)
[2017-07-18] MEDS: SIMVASTATIN 20 MG TAB PO SCH (20:06)
[2017-07-18] MEDS: TAMSULOSIN HCL 0.4 MG CAP PO SCH (20:10)
[2017-07-18] MEDS: INSULIN GLARGINE SOLOSTAR 100 UNITS/ML 3 ML PEN SC SCH (20:32)
--- NOTE | 2017-07-18 23:07 | Family Medicine Progress Note ---
Progress Note Date of Service Jul 18, 2017. Subjective Pt evaluation today including: conversation w/ patient, physical exam, lab review, review of inpatient medication list Pain: reports RLQ hematoma pain is mildly improving PO Intake: tolerating well Voiding: no voiding problems patient reports his hand continues to be swollen but his abdominal rectal sheath hematoma pain is mildly improved Constitutional: + weakness, + fatigue, No fever, No chills, No sweats, No weight loss, No problem reported Respiratory: + cough, + shortness of breath, + dyspnea on exertion, + dyspnea at rest Cardiovascular: No chest pain, No orthopnea, No PND, No edema, No claudication, No palpitations, No problem reported Abdomen: + pain (RLQ) Musculoskeletal: + see HPI, + joint pain, + muscle pain, + swelling All Other Systems: Reviewed and Negative Medications Current Inpatient Medications Medications (Trade) Dose Ordered Sig/Edward Route Start Time Stop Time Status Last Admin Dose Admin Acetaminophen (Tylenol Tab) 650 mg Q4H PRN PO 07/05/17 21:45 08/04/17 21:44 07/11/17 21:21 650 MG Amlodipine Besylate (Norvasc Tab) 10 mg QAM PO 07/06/17 09:00 08/05/17 08:59 07/17/17 08:57 10 MG Aspirin (Ecotrin Tab) 81 mg QAM PO 07/06/17 09:00 08/05/17 08:59 07/18/17 14:32 81 MG Calcitriol (Rocaltrol Cap) 0.25 mcg Q2D PO 07/06/17 09:00 08/05/17 08:59 07/18/17 07:48 0.25 MCG Furosemide (Lasix Tab) 40 mg QAM PO 07/06/17 09:00 08/05/17 08:59 07/17/17 08:55 40 MG Hydralazine HCl (Apresoline Tab) 100 mg TID PO 07/06/17 09:00 08/05/17 08:59 07/18/17 20:09 100 MG Lactobacillus Acidophilus (Floranex Tab) 2 tab TID PO 07/06/17 09:00 08/05/17 08:59 07/18/17 20:05 2 TAB Lisinopril (Zestril Tab) 40 mg DAILY PO 07/06/17 09:00 08/05/17 08:59 07/17/17 08:57 40 MG Metoprolol Tartrate (Lopressor Tab) 150 mg BID PO 07/06/17 09:00 08/05/17 08:59 07/18/17 20:06 150 MG Simvastatin (Zocor Tab) 20 mg QPM PO 07/06/17 21:00 08/05/17 20:59 07/18/17 20:06 20 MG Tamsulosin HCl (Flomax Cap) 0.4 mg HS PO 07/06/17 21:00 08/05/17 20:59 07/18/17 20:10 0.4 MG Cabozantinib (Cabometyx) 60 mg DAILY@0500 PO 07/06/17 05:00 08/05/17 04:59 07/18/17 05:11 60 MG Insulin Aspart (novoLOG ASPART) SLIDING SCALE G... ACHS SC 07/06/17 07:00 08/05/17 06:59 07/18/17 20:33 4 UNITS Miscellaneous Information (Check Fentanyl Patch Placement) 1 ea QS N/A 07/06/17 08:00 08/05/17 07:59 07/18/17 15:54 1 EA Glucose (Glucose 40% Gel) 15-30 GRAMS 15 GRAMS... UD PRN PO 07/06/17 04:15 08/05/17 04:14 Glucose (Glucose Chew Tab) 4-8 Tablets 4 Tabl... UD PRN PO 07/06/17 04:15 08/05/17 04:14 Dextrose (Dextrose 50% 50ML Syringe) 25-50ML OF 50% DW IV FOR... UD PRN IV 07/06/17 04:15 08/05/17 04:14 07/06/17 05:40 25 ML Glucagon (Glucagon Inj) 1 mg UD PRN SQ 07/06/17 04:15 08/05/17 04:14 Enteral Nutritional Formula (Boost Glucose Control) 1 can BIDM PO 07/06/17 16:45 08/05/17 16:44 07/18/17 17:25 1 CAN Miscellaneous (Fentanyl Patch Remove & Waste) 1 ea Q3D N/A 07/10/17 01:00 08/09/17 00:59 07/16/17 01:09 1 EA Fentanyl (Duragesic Patch) 25 mcg Q3D TD 07/07/17 01:00 07/21/17 00:59 07/16/17 01:09 25 MCG Heparin Sodium (Porcine) (Heparin 100 Unit/ml 5ml Flush) 5 ml PRN PRN IV 07/07/17 02:45 08/06/17 02:44 07/18/17 18:48 5 ML Calcium Carbonate (Tums Chew Tab) 500 mg TIDM PO 07/07/17 17:00 08/05/17 08:59 07/18/17 17:31 500 MG Ondansetron HCl (Zofran Inj) 4 mg Q4H PRN IV 07/11/17 03:00 08/10/17 02:59 07/17/17 21:50 4 MG Ondansetron HCl (Zofran Tab) 4 mg Q6H PRN PO 07/11/17 10:15 08/10/17 10:14 Prochlorperazine Edisylate 5 mg/ Syringe 5 ml @ 5 mls/min Q4H PRN IV 07/11/17 14:00 08/10/17 13:59 Lactulose (Chronulac Syrup) 30 gm Q4H PRN PO 07/11/17 16:45 08/10/17 16:44 Senna (Senokot Tab) 8.6 mg QAM PO 07/12/17 08:00 08/11/17 07:59 07/17/17 08:57 8.6 MG Polyethylene (Miralax Powder Packet) 17 gm DAILY PO 07/11/17 16:45 08/05/17 02:29 07/18/17 07:50 17 GM Raspberry (Raspberry Syrup 5ml Cup) 5 ml Q6H PO 07/12/17 17:00 07/26/17 16:59 07/18/17 21:36 5 ML Vancomycin HCl (Consult) 1 ea UD PRN N/A 07/13/17 17:00 08/12/17 16:59 Oxycodone HCl (Roxicodone Immediate Rel Tab) 10 mg Q4H PRN PO 07/14/17 09:15 08/05/17 08:59 07/18/17 07:49 10 MG Methadone HCl (Dolophine Tab) 20 mg BID PO 07/14/17 09:30 07/28/17 09:29 07/18/17 20:07 20 MG Prednisone (PredniSONE TAB) 40 mg DAILY PO 07/15/17 08:00 08/05/17 08:59 07/18/17 14:32 40 MG Piperacillin Sod/ Tazobactam Sod 3.375 gm/Dextrose 115 ml @ 28.75 mls/ hr Q12@1000,2200 IV 07/14/17 22:00 07/21/17 21:59 07/18/17 21:35 28.75 MLS/HR Piperacillin Sod/ Tazobactam Sod (Consult) 1 ea UD PRN N/A 07/14/17 15:15 08/13/17 15:14 Vancomycin HCl (Vancomycin Oral Soln) 125 mg Q6H PO 07/15/17 17:00 07/26/17 16:59 07/18/17 21:36 125 MG Insulin Glargine (Lantus Solostar Pen) 8 units HS SC 07/16/17 21:00 08/05/17 20:59 07/18/17 20:32 6 UNITS Simethicone (Mylicon Chew Tab) 80 mg Q6H PRN PO 07/17/17 23:15 08/16/17 23:14 Epoetin Mohsen 8000 units/Syringe 0.4 ml @ 1 mls/min TODAY@1200 IV. 07/18/17 12:00 07/18/17 23:59 07/18/17 13:12 1 MLS/MIN Objective Vital Signs Date Time Temp Pulse Resp B/P (MAP) Pulse Ox O2 Delivery O2 Flow Rate FiO2 07/18/17 19:34 37.1 83 21 132/70 (90) 93 Nasal Cannula 4.0 07/18/17 16:00 94 Nasal Cannula 4.0 07/18/17 15:50 36.9 90 22 128/72 (90) 94 Nasal Cannula 4.0 07/18/17 14:30 36.4 85 138/90 (106) 07/18/17 13:52 88 98/74 07/18/17 13:45 57 73/72 07/18/17 13:30 73 97/54 07/18/17 13:15 86 114/70 07/18/17 13:00 84 97/70 07/18/17 12:45 86 122/106 07/18/17 12:30 85 136/100 07/18/17 12:15 85 125/72 07/18/17 12:00 85 125/72 07/18/17 11:45 84 97/70 07/18/17 11:40 76 98/38 07/18/17 11:30 82 87/61 07/18/17 11:20 80 119/65 07/18/17 11:15 83 76/64 07/18/17 11:00 83 116/76 07/18/17 10:45 79 100/73 07/18/17 10:36 83 155/74 07/18/17 10:20 36.8 81 150/82 (104) 07/18/17 08:15 Nasal Cannula 4.0 07/18/17 07:18 36.5 81 20 137/72 (93) 96 Nasal Cannula 4.0 07/18/17 03:27 36.7 86 17 122/68 (86) 92 Nasal Cannula 4.0 Humidified Oxygen 07/18/17 00:00 Nasal Cannula 4.0 07/17/17 23:06 36.6 86 20 149/79 (102) 98 Nasal Cannula 4.0 Physical Exam General Appearance: WD/WN, no apparent distress Respiratory/Chest: chest non-tender, no respiratory distress, no accessory muscle use, + decreased breath sounds (bilateral LL) Cardiovascular: regular rate, rhythm, no edema, no gallop, no JVD, no murmur Abdomen: normal bowel sounds, soft, + tenderness (RLQ at site of hematoma) Extremities: + swelling (left hand) 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, no motor/sensory deficits, alert, normal mood/affect Skin: normal color, warm/dry, no rash Laboratory Results Date Time Temp Pulse Resp B/P (MAP) Pulse Ox O2 Delivery O2 Flow Rate FiO2 07/18/17 19:34 37.1 83 21 132/70 (90) 93 Nasal Cannula 4.0 07/18/17 16:00 94 Nasal Cannula 4.0 07/18/17 15:50 36.9 90 22 128/72 (90) 94 Nasal Cannula 4.0 07/18/17 14:30 36.4 85 138/90 (106) 07/18/17 13:52 88 98/74 07/18/17 13:45 57 73/72 07/18/17 13:30 73 97/54 07/18/17 13:15 86 114/70 07/18/17 13:00 84 97/70 07/18/17 12:45 86 122/106 07/18/17 12:30 85 136/100 07/18/17 12:15 85 125/72 07/18/17 12:00 85 125/72 07/18/17 11:45 84 97/70 07/18/17 11:40 76 98/38 07/18/17 11:30 82 87/61 07/18/17 11:20 80 119/65 07/18/17 11:15 83 76/64 07/18/17 11:00 83 116/76 07/18/17 10:45 79 100/73 07/18/17 10:36 83 155/74 07/18/17 10:20 36.8 81 150/82 (104) 07/18/17 08:15 Nasal Cannula 4.0 07/18/17 07:18 36.5 81 20 137/72 (93) 96 Nasal Cannula 4.0 07/18/17 03:27 36.7 86 17 122/68 (86) 92 Nasal Cannula 4.0 Humidified Oxygen 07/18/17 00:00 Nasal Cannula 4.0 07/17/17 23:06 36.6 86 20 149/79 (102) 98 Nasal Cannula 4.0 Assessment and Plan Mr. Christy is a 61 yo M with PMH ESRD on HD, RCC, DMII. Admitted for L hand cellulitis having failed outpatient management. 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 Encephalopathy - improved - Unclear whether toxic from narcotics vs. metabolic vs. other - Decreased Oxycodone from 20mg to 10mg QID PRN - Ammonia normal at 26.4, VBG w/o significant hypercarbia PCO2 - 50 - Consider head CT to rule out mets from RCC if worsens Diarrhea - C.Diff - remains afebrile - C.diff positive - On oral vancomycin - day 7 - urine cx negative, blood cultures negative - CT abdomen - small right rectus sheath hematoma, no new lymphadenopathy, lesions of right kidney, unchanged from before - Stools now softly formed Abdominal Pain - stable - H&H stable - secondary to rectus sheath hematoma - eating well with good appetite, denies n/v, wcc attributable to steroid, and palpable hematoma in direct region of pain is noted. appendicitis is in differential however is reassuring considering above Will continue to monitor for changes and will consider CT scan if patient pain becomes more acute - apply warm k-pad to the area for symptomatic relief - hold heparin for dvt prophylaxis and stop giving insulin injections in that area Left hand cellulitis - improving - ID consulted. Recommendations: - was on ertapenem and dapto but abx broadened. Currently on vanc PO and zosyn IV - day 11 of abx - should be able to convert to oral meds on DC - possible reflex sympathetic dystrophy - consider neuro consult in the future +/- nerve conduction studies - MRI suggested cellulitis with myositis. No osteomyelitis, no abscess - Ortho consulted: Dr. 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 Possible cryptogenic organizing pneumonia/drug related pneumonitis - increased prednisone from 10mg daily to 40mg daily. Will taper by 10 weekly - change antibiotics from IV aztreonam to IV zosyn to include anaerobe coverage - consider switching to levaquin after 7 days - speech/swallow eval ordered - Continue O2 supplementation to maintain SaO2 >92%. ESRD HD secondary to RCC/ s/p left nephrectomy - Nephrology Consulted - HD today - receives HD on Tuesdays, and Saturdays - appreciate oncology's input: - continue cabozantinib -> although does contain warning for GI perf and fistula - may repeat CT scan if he does not improve - next scans planned for July Chronic Pain - continue fentanyl - Dr. Jackson consulted. Recommendations - continue prn oxycodone - dose decreased to 10mg q4h prn in light of encephalopathy - pt was on increased dose of methadone at 20 mg BID since 06/20 - in the hospital, he has been on 10mg TID, will increase to previous regimen of 20mg BID - Recommends rehab at [facility] DMII - 7 units of Lantus with sliding scale - BSG AC HS Anemia - Hgb today stable 8.9; ferritin 1870 - nephrology -> continue epogen 27007 units and venofer 100mg - continue to monitor HTN/hyperlipidemia - continue asa 81 mg, furosemide 40 mg - continue hydralazine 100 mg tid, amlodipine 10 mg daily, metoprolol 150 mg bid and lisinopril 40 mg daily - continue simvastatin 20 mg daily - I&O and daily weights BPH - continue tamsulosin 0.4 mg CKD Bone Mineral Disease - Continue oral Calcitriol - Continue CaCO3 500 mg with meals DVT Prophylaxis: SCDs Code: Full Disposition: remains on med/onc. Discussion about d/c to [facility]; referral also placed at [facility] on 07/14. May be able to DC tomorrow Resident Physician Supervision Note: I interviewed and examined the patient. Discussed with Dr. Pitt and agree with findings and plan as documented in the note. Any exceptions or clarifications are listed here: None Documented By: Jim Genao feeling ok hand slowly improving abdominal pain slowly improving breathing about the same vitals noted nad breathing unlabored. L hand w diffuse edema but no significant erythema - has spotty areas of red, mild tenderness, a small amount of exudate between fingers. 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 rectus sheath hematoma - ongoing vigilance and supportive care acute picture improving. palliative consult recommended rehab. anticipate rehab once approved. otherwise as above Resident Tracking Resident Involvement: Resident Care Provided Care Provided: Adult Hospital Medicine
[2017-07-19] VITALS (7 sets, daily range): BP systolic 150–160; BP diastolic 71–79; PULSE 80–89; TEMP 36.4–37; O2SAT 92–96
[2017-07-19] MEDS: CHECK FENTANYL PATCH PLACEMENT SCH ×4 (00:02→23:45)
[2017-07-19] MEDS: FENTANYL PATCH REMOVE & WASTE SCH ×2 (01:07→08:54)
[2017-07-19] MEDS: FENTANYL 25 MCG/HR TDSY TD SCH ×2 (01:08→08:53)
[2017-07-19 04:27] LABS: HEMATOCRIT 25.4 % (42-52); HEMOGLOBIN 7.9 g/dL (14.0-18.0); MEAN CELL VOLUME 95.5 fL (80-100); MEAN CORPUSCULAR HEMOGLOBIN 29.7 pg (25-34); MEAN CORPUSCULAR HGB CONC 31.1 g/dl (32-36); MEAN PLATELET VOLUME 10.8 fL (7.4-10.4); PLATELET COUNT 158 K/uL (130-400); RED CELL DISTRIBUTION WIDTH CV 24.6 % (11.5-14.5); RED CELL DISTRIBUTION WIDTH SD 81.1 fL (36.4-46.3); WHITE BLOOD COUNT 11.87 K/uL (4.8-10.8)
[2017-07-19 04:52] LABS: CALCIUM 7.8 mg/dl (8.5-10.1); CREATININE 3.36 mg/dl (0.60-1.40); POTASSIUM 4.3 mmol/L (3.5-5.1)
[2017-07-19] MEDS: RASPBERRY SYRUP 5 ML UDP PO SCH ×4 (05:19→22:00)
[2017-07-19] MEDS: CABOZANTINIB S MALATE 60 MG PO SCH (05:19)
[2017-07-19] MEDS: VANCOMYCIN HCL 125 MG/2.5ML SOLN PO SCH ×4 (05:23→22:00)
[2017-07-19] MEDS: METHADONE HCL 10 MG TAB PO SCH ×2 (08:30→20:10)
[2017-07-19] MEDS: CALCIUM CARBONATE 500 MG CHEWABLE PO SCH ×3 (08:31→17:05)
[2017-07-19] MEDS: FUROSEMIDE 40 MG TAB PO SCH (08:32)
[2017-07-19] MEDS: METOPROLOL TARTRATE 100 MG TAB PO SCH ×2 (08:32→20:12)
[2017-07-19] MEDS: LISINOPRIL 40 MG TAB PO SCH (08:32)
[2017-07-19] MEDS: SENNA 8.6 MG TAB PO SCH (08:33)
[2017-07-19] MEDS: POLYETHYLENE (MIRALAX) 17 GM PACK PO SCH (08:33)
[2017-07-19] MEDS: AMLODIPINE BESYLATE 5 MG TAB PO SCH (08:34)
[2017-07-19] MEDS: LACTOBACILLUS ACIDOPHILUS (FLORANEX) TAB PO SCH ×3 (08:34→20:10)
[2017-07-19] MEDS: ASPIRIN 81 MG ECTAB PO SCH (08:34)
[2017-07-19] MEDS: BOOST GLUCOSE CONTROL PO SCH ×2 (08:35→17:00)
[2017-07-19 08:49] LABS: BASO % 0.3 %; BASO ABS # 0.04 K/uL (0-0.2); EOS % 0.1 %; EOS ABS # 0.01 K/uL (0-0.5); IG# 0.04 K/uL (0.00-0.02); LYMPH % 1.3 %; LYMPH ABS # 0.15 K/uL (1.2-3.4); MONO % 2.7 %; MONO ABS # 0.31 K/uL (0.11-0.59); NEUT % 95.3 %; NEUT ABS # 10.89 K/uL (1.4-6.5)
[2017-07-19] MEDS: OXYCODONE HCL IR 5 MG TAB (IMMEDIATE RELEASE) PO PRN ×3 (08:52→17:05)
[2017-07-19] MEDS: INSULIN ASPART 100 UNITS/ML 3 ML PEN SC SCH ×4 (08:54→21:59)
[2017-07-19] MEDS ORDERED: NURSING DECISION MEDICATION ORDER SCH (09:15)
[2017-07-19] MEDS: PIPERACILL/TAZOBAC IV 3.375 GM in DEXTROSE 5% 100ML 100 ML IV SCH (09:57)
[2017-07-19] MEDS ORDERED: OPTIRAY 320 IV PRN (10:45)
--- NOTE | 2017-07-19 11:00 | Nephrology Progress Note ---
Nephrology Progress Note Date of Service Jul 19, 2017. Chief Complaint Provide inpatient HD and assist w/ medical management of this patient w/ ESRD Subjective Mr. Christy was seen & examined in his hospital room this morning. He is breathing comfortably on O2 at 4 L/min NC. He was dialyzed yesterday for 3.5 hours. Only 1700 cc UF obtained due to relative hypotension. AVF functioned without complication. Mr. Christy continues to experience RLQ abdominal discomfort. This is made worse with any movement. Review of Systems Constitutional: No fever Cardiovascular: No chest pain Respiratory: No dyspnea at rest Abdomen: + pain, No nausea, No vomiting Extremities: No leg edema A complete review of systems was performed. Pertinent positives are noted above. All other systems are negative. Vital Signs Last 8 Hrs Date Time Temp Pulse Resp B/P (MAP) Pulse Ox O2 Delivery O2 Flow Rate FiO2 07/19/17 07:35 36.6 80 16 153/74 (100) 95 4.0 07/19/17 04:26 37.0 89 19 160/73 (102) 92 Nasal Cannula 4.0 Last Recorded Weight Weight (Kilograms): 83.500 Physical Exam General Appearance: no apparent distress Head: normocephalic, atraumatic Eyes: PERRL, EOMI Neck: no adenopathy Respiratory/Chest: lungs clear, no respiratory distress Cardiovascular: regular rate, rhythm Abdomen/GI: soft, + pertinent finding (RLQ tender to deep palpation. No guarding. Hypoactive bowel sounds present) Extremities/Musculoskelatal: no pedal edema, + pertinent finding (L arm AVF + bruit. L hand cellulitis has resolved) Neurologic/Psych: alert, oriented x 3 Family History Cervical cancer Diabetes mellitus Heart disease Hypertension Myocardial infarction Pancreatic cancer Prostate cancer Negative for CKD/ESRD Social History Smokeless Tobacco Use: No Alcohol Use: none Drug Use: none Marital Status: single Housing Status: lives alone Occupation: disabled Single, retired. Formerly worked for [employer]. Never a smoker. Laboratory Results Past 24 Hours 07/19/17 04:17 Red Blood Count 2.66, Mean Corpuscular Volume 95.5, Mean Corpuscular Hemoglobin 29.7, Mean Corpuscular Hemoglobin Concent 31.1, Mean Platelet Volume 10.8, Neutrophils (%) (Auto) 95.3, Lymphocytes (%) (Auto) 1.3, Monocytes (%) (Auto) 2.7, Eosinophils (%) (Auto) 0.1, Basophils (%) (Auto) 0.3, Neutrophils # (Auto) 10.89, Lymphocytes # (Auto) 0.15, Monocytes # (Auto) 0.31, Eosinophils # (Auto) 0.01, Basophils # (Auto) 0.04 07/19/17 04:17 Test 07/18/17 11:19 07/18/17 16:58 07/18/17 19:26 07/19/17 04:17 Bedside Glucose 125 mg/dl (70-99) 86 mg/dl (70-99) 93 mg/dl (70-99) White Blood Count 11.87 K/uL (4.8-10.8) Red Blood Count 2.66 M/uL (4.7-6.1) Hemoglobin 7.9 g/dL (14.0-18.0) Hematocrit 25.4 % (42-52) Mean Corpuscular Volume 95.5 fL (80-100) Mean Corpuscular Hemoglobin 29.7 pg (25-34) Mean Corpuscular Hemoglobin Concent 31.1 g/dl (32-36) Platelet Count 158 K/uL (130-400) Mean Platelet Volume 10.8 fL (7.4-10.4) Neutrophils (%) (Auto) 95.3 % Lymphocytes (%) (Auto) 1.3 % Monocytes (%) (Auto) 2.7 % Eosinophils (%) (Auto) 0.1 % Basophils (%) (Auto) 0.3 % Neutrophils # (Auto) 10.89 K/uL (1.4-6.5) Lymphocytes # (Auto) 0.15 K/uL (1.2-3.4) Monocytes # (Auto) 0.31 K/uL (0.11-0.59) Eosinophils # (Auto) 0.01 K/uL (0-0.5) Basophils # (Auto) 0.04 K/uL (0-0.2) RDW Standard Deviation 81.1 fL (36.4-46.3) RDW Coefficient of Variation 24.6 % (11.5-14.5) Immature Granulocyte % (Auto) 0.3 % Immature Granulocyte # (Auto) 0.04 K/uL (0.00-0.02) Nucleated RBC Absolute Count (auto) 1.60 K/uL (0-0) Nucleated Red Blood Cells % 13.5 % Anion Gap 3.0 mmol/L (3-11) Est Creatinine Clear Calc Drug Dose 23.2 ml/min Estimated GFR () 21.4 Estimated GFR (Non- 18.4 BUN/Creatinine Ratio 9.0 (10-20) Calcium Level 7.8 mg/dl (8.5-10.1) Test 07/19/17 07:48 Bedside Glucose 126 mg/dl (70-99) Allergies Coded Allergies: Iodinated Diagnostic Agents (Verified Allergy, Unknown, oil based, severe headaches, 06/20/17) EVENT OCCURED IN 1971, PT STATES HE HAS HAD 3 DIFFERENT WATER BASED IVP DYES WITH NO ISSUE Medications Current Inpatient Medications Medications (Trade) Dose Ordered Sig/Edward Route Start Time Stop Time Status Last Admin Dose Admin Acetaminophen (Tylenol Tab) 650 mg Q4H PRN PO 07/05/17 21:45 08/04/17 21:44 07/11/17 21:21 650 MG Amlodipine Besylate (Norvasc Tab) 10 mg QAM PO 07/06/17 09:00 08/05/17 08:59 07/19/17 08:34 10 MG Aspirin (Ecotrin Tab) 81 mg QAM PO 07/06/17 09:00 08/05/17 08:59 07/19/17 08:34 81 MG Calcitriol (Rocaltrol Cap) 0.25 mcg Q2D PO 07/06/17 09:00 08/05/17 08:59 07/18/17 07:48 0.25 MCG Furosemide (Lasix Tab) 40 mg QAM PO 07/06/17 09:00 08/05/17 08:59 07/19/17 08:32 40 MG Hydralazine HCl (Apresoline Tab) 100 mg TID PO 07/06/17 09:00 08/05/17 08:59 07/19/17 08:31 100 MG Lactobacillus Acidophilus (Floranex Tab) 2 tab TID PO 07/06/17 09:00 08/05/17 08:59 07/19/17 08:34 2 TAB Lisinopril (Zestril Tab) 40 mg DAILY PO 07/06/17 09:00 08/05/17 08:59 07/19/17 08:32 40 MG Metoprolol Tartrate (Lopressor Tab) 150 mg BID PO 07/06/17 09:00 08/05/17 08:59 07/19/17 08:32 150 MG Simvastatin (Zocor Tab) 20 mg QPM PO 07/06/17 21:00 08/05/17 20:59 07/18/17 20:06 20 MG Tamsulosin HCl (Flomax Cap) 0.4 mg HS PO 07/06/17 21:00 08/05/17 20:59 07/18/17 20:10 0.4 MG Cabozantinib (Cabometyx) 60 mg DAILY@0500 PO 07/06/17 05:00 08/05/17 04:59 07/19/17 05:19 60 MG Insulin Aspart (novoLOG ASPART) SLIDING SCALE G... ACHS SC 07/06/17 07:00 08/05/17 06:59 07/19/17 08:54 7 UNITS Miscellaneous Information (Check Fentanyl Patch Placement) 1 ea QS N/A 07/06/17 08:00 08/05/17 07:59 07/19/17 08:43 1 EA Glucose (Glucose 40% Gel) 15-30 GRAMS 15 GRAMS... UD PRN PO 07/06/17 04:15 08/05/17 04:14 Glucose (Glucose Chew Tab) 4-8 Tablets 4 Tabl... UD PRN PO 07/06/17 04:15 08/05/17 04:14 Dextrose (Dextrose 50% 50ML Syringe) 25-50ML OF 50% DW IV FOR... UD PRN IV 07/06/17 04:15 08/05/17 04:14 07/06/17 05:40 25 ML Glucagon (Glucagon Inj) 1 mg UD PRN SQ 07/06/17 04:15 08/05/17 04:14 Enteral Nutritional Formula (Boost Glucose Control) 1 can BIDM PO 07/06/17 16:45 08/05/17 16:44 07/19/17 08:35 1 CAN Heparin Sodium (Porcine) (Heparin 100 Unit/ml 5ml Flush) 5 ml PRN PRN IV 07/07/17 02:45 08/06/17 02:44 07/19/17 04:28 5 ML Calcium Carbonate (Tums Chew Tab) 500 mg TIDM PO 07/07/17 17:00 08/05/17 08:59 07/19/17 08:31 500 MG Ondansetron HCl (Zofran Inj) 4 mg Q4H PRN IV 07/11/17 03:00 08/10/17 02:59 07/17/17 21:50 4 MG Ondansetron HCl (Zofran Tab) 4 mg Q6H PRN PO 07/11/17 10:15 08/10/17 10:14 Prochlorperazine Edisylate 5 mg/ Syringe 5 ml @ 5 mls/min Q4H PRN IV 07/11/17 14:00 08/10/17 13:59 Lactulose (Chronulac Syrup) 30 gm Q4H PRN PO 07/11/17 16:45 08/10/17 16:44 Senna (Senokot Tab) 8.6 mg QAM PO 07/12/17 08:00 08/11/17 07:59 07/17/17 08:57 8.6 MG Polyethylene (Miralax Powder Packet) 17 gm DAILY PO 07/11/17 16:45 08/05/17 02:29 07/18/17 07:50 17 GM Raspberry (Raspberry Syrup 5ml Cup) 5 ml Q6H PO 07/12/17 17:00 07/26/17 16:59 07/19/17 05:19 5 ML Vancomycin HCl (Consult) 1 ea UD PRN N/A 07/13/17 17:00 08/12/17 16:59 Oxycodone HCl (Roxicodone Immediate Rel Tab) 10 mg Q4H PRN PO 07/14/17 09:15 08/05/17 08:59 07/19/17 08:52 10 MG Methadone HCl (Dolophine Tab) 20 mg BID PO 07/14/17 09:30 07/28/17 09:29 07/19/17 08:30 20 MG Prednisone (PredniSONE TAB) 40 mg DAILY PO 07/15/17 08:00 08/05/17 08:59 07/19/17 08:35 40 MG Piperacillin Sod/ Tazobactam Sod 3.375 gm/Dextrose 115 ml @ 28.75 mls/ hr Q12@1000,2200 IV 07/14/17 22:00 07/21/17 21:59 07/19/17 09:57 28.75 MLS/HR Piperacillin Sod/ Tazobactam Sod (Consult) 1 ea UD PRN N/A 07/14/17 15:15 08/13/17 15:14 Vancomycin HCl (Vancomycin Oral Soln) 125 mg Q6H PO 07/15/17 17:00 07/26/17 16:59 07/19/17 05:23 125 MG Insulin Glargine (Lantus Solostar Pen) 8 units HS SC 07/16/17 21:00 08/05/17 20:59 07/18/17 20:32 6 UNITS Simethicone (Mylicon Chew Tab) 80 mg Q6H PRN PO 07/17/17 23:15 08/16/17 23:14 Miscellaneous (Fentanyl Patch Remove & Waste) 1 ea Q3D@0859 N/A 07/22/17 08:59 08/21/17 08:58 Fentanyl (Duragesic Patch) 25 mcg Q3D@0900 TD 07/22/17 09:00 08/05/17 08:59 Ioversol (Optiray 320) 100 ml UD PRN IV 07/19/17 10:45 07/23/17 10:44 UNV Impression (1) Cellulitis of left hand (2) ESRD (end stage renal disease) on dialysis (3) Renal cell carcinoma (4) Anemia (5) Diabetes type 2, controlled Mr. Christy is a 61-year-old male with ESRD and metastatic RCC. He underwent left nephrectomy in 2015. He is maintained on Cabometyx. Mr. Christy did not tolerate Sutent due to high grade proteinuria, Opdivo caused arthralgia, colitis and possible pneumonitis. He has been maintained on prednisone for possible CLEAT MAKER. Mr. Christy was admitted with persistent soft tissue infection of the left hand. This improved with antibiotics. He now has a possible evolving pneumonia. Current antibiotics include Zosyn and Vancomycin. Mr. Christy developed abdominal pain associated with an abdominal wall hematoma. Stool was checked for C diff and he is on treatment for this as well. Recommendations END STAGE RENAL DISEASE: -- Volume status and electrolyte balance are acceptable this am. No acute indication for HD today. Will schedule next HD for the am. -- Patient appears to be near his EDW. He could only tolerate 1.7 L UF yesterday ANEMIA: -- Will provide IDALIA w/ HD treatments HYPERTENSION: -- Blood pressure is currently well controlled. Continue current antihypertensive regimen. No change at present. 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 Given persistent RLQ pain will order follow up abdominal pelvic CT to assess for colonic ischemia or possible appendicitis
--- NOTE | 2017-07-19 12:30 | DIAGNOSTIC IMAGING REPORT ---
ABD/PELVIS IV AND ORAL CONT CLINICAL HISTORY: 61 years-old Male presenting with r/o ischemic colitis appendicitis. h/o rectus sheath hematoma. TECHNIQUE: Multidetector CT of the abdomen and pelvis was performed after the administration of oral and intravenous contrast. IV contrast: 93 mL of Optiray 320. A dose lowering technique was used consistent with the principles of ALARA (as low as reasonably achievable). COMPARISON: 07/13/2017. CT DOSE (mGy.cm): The estimated cumulative dose is 978.91 mGycm. FINDINGS: Relay Telegrapher topogram: Unremarkable. Lung bases: Patchy groundglass opacities have increased since prior exam. Extensive dependent consolidation volume loss in the right lower lobe, likely passive atelectasis. Less extensive passive atelectasis in the left lower lobe. Small right and trace left pleural effusion. Normal heart size. Aortic valve calcification. Liver: Congenital hypoplasia of the medial segments of the left hepatic lobe. Focal periportal edema in segments 5 and 8. No liver lesion. Patent hepatic vasculature. Biliary: No intrahepatic or extrahepatic biliary ductal dilatation. The gallbladder is nondistended but demonstrates significant wall thickening with mild pericholecystic fluid and inflammatory change. Pancreas: Mild parenchymal atrophy. Spleen: Normal. Adrenal glands: The left adrenal gland may be surgically absent. Right adrenal gland normal. Kidneys and ureters: The previously noted round 3.3 cm lesion in the interpolar region of the right kidney does not demonstrate significant increase in density between the prior noncontrast exam and this contrast-enhanced exam to suggest enhancement. This suggests a hemorrhagic or proteinaceous cyst Multiple additional hypodensities in the kidney likely cysts. A prominent exophytic upper pole cyst may contain a thin mural calcification consistent with a minimally complex cyst (Bosniak 2). Postsurgical changes of left nephrectomy. No suspicious soft tissue nodularity in the operative bed. Right ureter is normal. Mid to distal left ureter normal. Bladder: Incompletely evaluated secondary to underdistention. However, suggestion of circumferential bladder wall thickening. Pelvic organs: Prostate enlargement likely secondary to benign prostatic hyperplasia. Bowel: Patent anastomosis at the upper rectum likely indicating prior sigmoidectomy. Diverticulosis of the descending colon. Moderate stool burden throughout the normal caliber colon. No bowel obstruction. Proximal small bowel demonstrates abnormal wall thickening extending from the ligament of Treitz to the ileum. No pneumatosis. The appendix is not visualized and may be absent. No focal inflammatory changes in the right lower quadrant to suggest appendicitis. Peritoneal cavity: Trace free fluid in the abdomen and pelvis, the majority of which is in the left paracolic gutter and adjacent to thickened small bowel loops in the left abdomen. Lymph nodes: Enlarged retroperitoneal lymph nodes again noted in the portacaval region. The largest in this region measures 2.0 x 1.4 cm, essentially unchanged from prior (previously 1.8 x 1.4 cm). The adjacent enlarged lymph node measures 9 mm in the short axis, previously 8 mm. Stable appearance of the prominent left retrocrural lymph node. No new sites of lymphadenopathy. Vasculature: Atherosclerosis of the normal caliber abdominal aorta. Origins of the celiac and superior mesenteric arteries appear widely patent. Atherosclerosis at the origin of the right renal artery. IVC patent. Abdominal wall: Postsurgical changes of the midline ventral infraumbilical abdominal wall. Extensive body wall edema noted in the flanks stenting into the proximal thighs. The previously noted right rectus sheath hematoma has decreased in density and prominence consistent with expected interval evolution. Surgical clip noted immediately deep to the left rectus sheath musculature in the left mid abdomen. Multiple port sites noted with small fat-containing port site hernia in the left abdomen. Musculoskeletal: Lucent lesion in the right ilium with a sclerotic rim appears nonaggressive and is unchanged. Degenerative changes of the spine. IMPRESSION: 1. Abnormal small bowel wall thickening in the jejunum. Differential considerations include infectious enteritis, celiac disease, or ischemia. However, no evidence of superior mesenteric arterial occlusion or significant atherosclerosis of the estimated to corroborate the diagnosis of ischemic bowel. No pneumatosis. 2. Small ascites, likely reactive. 3. Gallbladder wall thickening with trace pericholecystic fluid in a nondistended gallbladder. This is nonspecific and is not suggestive of cholecystitis. This may be secondarily reactive. 4. No evidence of colitis or appendicitis. 5. Diverticulosis. No evidence of diverticulitis. 6. Patchy groundglass opacities at the lung bases. These have mildly progressed since the prior exam. Differential considerations include drug reaction, hemorrhage, or atypical pneumonia such as PCP or viral etiology. 7. Stable retroperitoneal lymphadenopathy. 8. Circumferential bladder wall thickening could indicate chronic bladder outlet obstruction secondary to prostatomegaly. Electronically signed by: Loyd Horne M.D. 07/19/2017 12:29 PM Dictated Date/Time: 07/19/2017 12:09 PM
[2017-07-19] MEDS ORDERED: LEVOFLOXACIN CONSULT ACTIVE PRN (13:30)
--- NOTE | 2017-07-19 13:46 | Pulmonology Progress Note ---
Pulmonary Progress Note Date of Service Jul 19, 2017. Attending Dr. Chu Subjective Patient is not feeling well this morning. He is having increased abdominal pain in the right side again today. He states that his bowels continue to move and are slightly more formed. Did have repeat blood work completed this morning which showed a white blood cell count of 11.87, hemoglobin of 7.9, creatinine of 3.36, BUN of 30. Objective Vital signs reviewed this morning: Afebrile Heart rate 8089 Respiratory rate 16 to 20 Blood pressure 153/74 SaO2 92-95% on 4 liters via nasal cannula General: Patient is awake, alert, cooperative, and in no acute distress. Mild distress with abdominal pain Head: Normocephalic, Atraumatic. ENT: PERRLA, No discharge, EOMI, Sclera normal Neck: Normal ROM. Trachea midline. No stridor Respiratory: Mild decrease in breath sounds b/l. No respiratory distress. No accessory muscle use. Cardiovascular: Regular rate and rhythm. No murmur appreciate. Normal S1/S2. Abdomen: Nontender to palpation. Normal bowel sounds hear throughout. No guarding. Abdomen is soft and nontender Back: Normal inspection. Extremities: Normal ROM Neuro: Alert, Oriented x 3. CN II-XII grossly intact. Sensation and motor function grossly intact. Psych: Mood and affect are flat Assessment & Plan Acute Hypoxic Respiratory Failure Right sided pleural effusion versus rounded atelectasis Bilateral lung opacities Renal Cell Carcinoma CKD on hemodialysis Possible Cryptogenic Organizing Pneumonia Abdominal pain Patient having severe abdominal pain this morning. Abdominal/pelvic CT scan pending. Will be able to visualize lower lung bases as well. Patient continues on IV Zosyn and PO Prednisone. Continue to maintain SaO2 >92% with supplemental O2. Taper as tolerated. Patient will need 2 step prior to discharge to establish O2 needs. Continue with broad spectrum antibiotics to cover for anaerobes. Continue dialysis as scheduled. Consider taking off more fluid if the patient's BP tolerates. Patient will need a follow up chest CT in 4-6 weeks. Pulmonary will follow. Data Medications: Current Inpatient Medications Medications (Trade) Dose Ordered Sig/Edward Route Start Time Stop Time Status Last Admin Dose Admin Acetaminophen (Tylenol Tab) 650 mg Q4H PRN PO 07/05/17 21:45 08/04/17 21:44 07/11/17 21:21 650 MG Amlodipine Besylate (Norvasc Tab) 10 mg QAM PO 07/06/17 09:00 08/05/17 08:59 07/19/17 08:34 10 MG Aspirin (Ecotrin Tab) 81 mg QAM PO 07/06/17 09:00 08/05/17 08:59 07/19/17 08:34 81 MG Calcitriol (Rocaltrol Cap) 0.25 mcg Q2D PO 07/06/17 09:00 08/05/17 08:59 07/18/17 07:48 0.25 MCG Furosemide (Lasix Tab) 40 mg QAM PO 07/06/17 09:00 08/05/17 08:59 07/19/17 08:32 40 MG Hydralazine HCl (Apresoline Tab) 100 mg TID PO 07/06/17 09:00 08/05/17 08:59 07/19/17 08:31 100 MG Lactobacillus Acidophilus (Floranex Tab) 2 tab TID PO 07/06/17 09:00 08/05/17 08:59 07/19/17 08:34 2 TAB Lisinopril (Zestril Tab) 40 mg DAILY PO 07/06/17 09:00 08/05/17 08:59 07/19/17 08:32 40 MG Metoprolol Tartrate (Lopressor Tab) 150 mg BID PO 07/06/17 09:00 08/05/17 08:59 07/19/17 08:32 150 MG Simvastatin (Zocor Tab) 20 mg QPM PO 07/06/17 21:00 08/05/17 20:59 07/18/17 20:06 20 MG Tamsulosin HCl (Flomax Cap) 0.4 mg HS PO 07/06/17 21:00 08/05/17 20:59 07/18/17 20:10 0.4 MG Cabozantinib (Cabometyx) 60 mg DAILY@0500 PO 07/06/17 05:00 08/05/17 04:59 07/19/17 05:19 60 MG Insulin Aspart (novoLOG ASPART) SLIDING SCALE G... ACHS SC 07/06/17 07:00 08/05/17 06:59 07/19/17 12:31 3 UNITS Miscellaneous Information (Check Fentanyl Patch Placement) 1 ea QS N/A 12/14/17 08:00 08/05/17 07:59 07/19/17 08:43 1 EA Glucose (Glucose 40% Gel) 15-30 GRAMS 15 GRAMS... UD PRN PO 07/06/17 04:15 08/05/17 04:14 Glucose (Glucose Chew Tab) 4-8 Tablets 4 Tabl... UD PRN PO 07/06/17 04:15 08/05/17 04:14 Dextrose (Dextrose 50% 50ML Syringe) 25-50ML OF 50% DW IV FOR... UD PRN IV 07/06/17 04:15 08/05/17 04:14 07/06/17 05:40 25 ML Glucagon (Glucagon Inj) 1 mg UD PRN SQ 07/06/17 04:15 08/05/17 04:14 Enteral Nutritional Formula (Boost Glucose Control) 1 can BIDM PO 07/06/17 16:45 08/05/17 16:44 07/19/17 08:35 1 CAN Heparin Sodium (Porcine) (Heparin 100 Unit/ml 5ml Flush) 5 ml PRN PRN IV 07/07/17 02:45 08/06/17 02:44 07/19/17 04:28 5 ML Calcium Carbonate (Tums Chew Tab) 500 mg TIDM PO 07/07/17 17:00 08/05/17 08:59 07/19/17 12:25 500 MG Ondansetron HCl (Zofran Inj) 4 mg Q4H PRN IV 07/11/17 03:00 08/10/17 02:59 07/17/17 21:50 4 MG Ondansetron HCl (Zofran Tab) 4 mg Q6H PRN PO 07/11/17 10:15 08/10/17 10:14 Prochlorperazine Edisylate 5 mg/ Syringe 5 ml @ 5 mls/min Q4H PRN IV 07/11/17 14:00 08/10/17 13:59 Lactulose (Chronulac Syrup) 30 gm Q4H PRN PO 07/11/17 16:45 08/10/17 16:44 Senna (Senokot Tab) 8.6 mg QAM PO 07/12/17 08:00 08/11/17 07:59 07/17/17 08:57 8.6 MG Polyethylene (Miralax Powder Packet) 17 gm DAILY PO 07/11/17 16:45 08/05/17 02:29 07/18/17 07:50 17 GM Raspberry (Raspberry Syrup 5ml Cup) 5 ml Q6H PO 07/12/17 17:00 07/26/17 16:59 07/19/17 12:25 5 ML Vancomycin HCl (Consult) 1 ea UD PRN N/A 07/13/17 17:00 08/12/17 16:59 Oxycodone HCl (Roxicodone Immediate Rel Tab) 10 mg Q4H PRN PO 07/14/17 09:15 08/05/17 08:59 07/19/17 12:24 10 MG Methadone HCl (Dolophine Tab) 20 mg BID PO 07/14/17 09:30 07/28/17 09:29 07/19/17 08:30 20 MG Prednisone (PredniSONE TAB) 40 mg DAILY PO 07/15/17 08:00 08/05/17 08:59 07/19/17 08:35 40 MG Vancomycin HCl (Vancomycin Oral Soln) 125 mg Q6H PO 07/15/17 17:00 07/26/17 16:59 07/19/17 12:24 125 MG Insulin Glargine (Lantus Solostar Pen) 8 units HS SC 07/16/17 21:00 08/05/17 20:59 07/18/17 20:32 6 UNITS Simethicone (Mylicon Chew Tab) 80 mg Q6H PRN PO 07/17/17 23:15 08/16/17 23:14 Miscellaneous (Fentanyl Patch Remove & Waste) 1 ea Q3D@0859 N/A 07/22/17 08:59 08/21/17 08:58 Fentanyl (Duragesic Patch) 25 mcg Q3D@0900 TD 07/22/17 09:00 08/05/17 08:59 Ioversol (Optiray 320) 100 ml UD PRN IV 07/19/17 10:45 07/23/17 10:44 Heparin Sodium (Porcine) (No Heparin In Dialysis) 1 ea TODAY@0600 N/A 07/20/17 06:00 07/20/17 18:00 Epoetin Mohsen 8000 units/Syringe 0.4 ml @ 1 mls/min TODAY@0600 IV. 07/20/17 06:00 07/20/17 18:00 Levofloxacin (Levaquin Tab) 750 mg TODAY@1600 ONCE PO 07/19/17 16:00 07/19/17 16:01 Levofloxacin (Consult) 1 ea UD PRN N/A 07/19/17 13:30 08/18/17 13:29 Levofloxacin (Levaquin Tab) 500 mg Q48H PO 07/21/17 16:00 07/28/17 15:59 Vital Signs: Date Time Temp Pulse Resp B/P (MAP) Pulse Ox O2 Delivery O2 Flow Rate FiO2 07/19/17 11:44 36.8 87 20 158/79 (105) 93 07/19/17 09:00 Nasal Cannula 4.0 07/19/17 07:35 36.6 80 16 153/74 (100) 95 4.0 07/19/17 04:26 37.0 89 19 160/73 (102) 92 Nasal Cannula 4.0 07/19/17 00:06 Nasal Cannula 4.0 07/18/17 22:57 36.6 97 18 156/79 (104) 93 Nasal Cannula 4.0 07/18/17 19:34 37.1 83 21 132/70 (90) 93 Nasal Cannula 4.0 07/18/17 16:00 94 Nasal Cannula 4.0 07/18/17 15:50 36.9 90 22 128/72 (90) 94 Nasal Cannula 4.0 07/18/17 14:30 36.4 85 138/90 (106) 07/18/17 13:52 88 98/74 07/18/17 13:45 57 73/72 Laboratory Results: Last 24 Hours Test 07/18/17 16:58 07/18/17 19:26 07/19/17 04:17 07/19/17 07:48 Bedside Glucose 86 mg/dl 93 mg/dl 126 mg/dl White Blood Count 11.87 K/uL Red Blood Count 2.66 M/uL Hemoglobin 7.9 g/dL Hematocrit 25.4 % Mean Corpuscular Volume 95.5 fL Mean Corpuscular Hemoglobin 29.7 pg Mean Corpuscular Hemoglobin Concent 31.1 g/dl Platelet Count 158 K/uL Mean Platelet Volume 10.8 fL Neutrophils (%) (Auto) 95.3 % Lymphocytes (%) (Auto) 1.3 % Monocytes (%) (Auto) 2.7 % Eosinophils (%) (Auto) 0.1 % Basophils (%) (Auto) 0.3 % Neutrophils # (Auto) 10.89 K/uL Lymphocytes # (Auto) 0.15 K/uL Monocytes # (Auto) 0.31 K/uL Eosinophils # (Auto) 0.01 K/uL Basophils # (Auto) 0.04 K/uL RDW Standard Deviation 81.1 fL RDW Coefficient of Variation 24.6 % Immature Granulocyte % (Auto) 0.3 % Immature Granulocyte # (Auto) 0.04 K/uL Nucleated RBC Absolute Count (auto) 1.60 K/uL Nucleated Red Blood Cells % 13.5 % Sodium Level 135 mmol/L Potassium Level 4.3 mmol/L Chloride Level 100 mmol/L Carbon Dioxide Level 32 mmol/L Anion Gap 3.0 mmol/L Blood Urea Nitrogen 30 mg/dl Creatinine 3.36 mg/dl Est Creatinine Clear Calc Drug Dose 23.2 ml/min Estimated GFR () 21.4 Estimated GFR (Non- 18.4 BUN/Creatinine Ratio 9.0 Random Glucose 147 mg/dl Calcium Level 7.8 mg/dl Test 07/19/17 11:37 Bedside Glucose 133 mg/dl
[2017-07-19] MEDS: ACETAMINOPHEN 325 MG TAB PO PRN (15:21)
[2017-07-19] MEDS ORDERED: LEVOFLOXACIN 750 MG TAB PO ONE (16:00)
[2017-07-19] MEDS: TAMSULOSIN HCL 0.4 MG CAP PO SCH (20:11)
[2017-07-19] MEDS: SIMVASTATIN 20 MG TAB PO SCH (20:12)
[2017-07-19] MEDS: INSULIN GLARGINE SOLOSTAR 100 UNITS/ML 3 ML PEN SC SCH (21:58)
[2017-07-19] MEDS ORDERED: NURSING VERBAL MED ORDER ONE (22:15)
--- NOTE | 2017-07-19 22:38 | Family Medicine Progress Note ---
Progress Note Date of Service Jul 19, 2017. Subjective Pt evaluation today including: conversation w/ patient, physical exam Pain: mildly improving rectal sheath hematoma pain. Tenderness in left hand still PO Intake: tolerating PO well Voiding: no voiding problems patient reports mild improvement in breathing and abdominal pain. Reports new drainage from 4/5th interdigit space and dry scaly feet. Respiratory: + shortness of breath, + dyspnea on exertion, + dyspnea at rest Abdomen: + pain (RLQ; a/w hematoma) Musculoskeletal: + swelling (left hand) All Other Systems: Reviewed and Negative Medications Current Inpatient Medications Medications (Trade) Dose Ordered Sig/Edward Route Start Time Stop Time Status Last Admin Dose Admin Acetaminophen (Tylenol Tab) 650 mg Q4H PRN PO 07/05/17 21:45 08/04/17 21:44 07/19/17 15:21 650 MG Amlodipine Besylate (Norvasc Tab) 10 mg QAM PO 07/06/17 09:00 08/05/17 08:59 07/19/17 08:34 10 MG Aspirin (Ecotrin Tab) 81 mg QAM PO 07/06/17 09:00 08/05/17 08:59 07/19/17 08:34 81 MG Calcitriol (Rocaltrol Cap) 0.25 mcg Q2D PO 07/06/17 09:00 08/05/17 08:59 07/18/17 07:48 0.25 MCG Furosemide (Lasix Tab) 40 mg QAM PO 07/06/17 09:00 08/05/17 08:59 07/19/17 08:32 40 MG Hydralazine HCl (Apresoline Tab) 100 mg TID PO 07/06/17 09:00 08/05/17 08:59 07/19/17 20:11 100 MG Lactobacillus Acidophilus (Floranex Tab) 2 tab TID PO 07/06/17 09:00 08/05/17 08:59 07/19/17 20:10 2 TAB Lisinopril (Zestril Tab) 40 mg DAILY PO 07/06/17 09:00 08/05/17 08:59 07/19/17 08:32 40 MG Metoprolol Tartrate (Lopressor Tab) 150 mg BID PO 07/06/17 09:00 08/05/17 08:59 07/19/17 20:12 150 MG Simvastatin (Zocor Tab) 20 mg QPM PO 07/06/17 21:00 08/05/17 20:59 07/19/17 20:12 20 MG Tamsulosin HCl (Flomax Cap) 0.4 mg HS PO 07/06/17 21:00 08/05/17 20:59 07/19/17 20:11 0.4 MG Insulin Aspart (novoLOG ASPART) SLIDING SCALE G... ACHS SC 07/06/17 07:00 08/05/17 06:59 07/19/17 21:59 3 UNITS Miscellaneous Information (Check Fentanyl Patch Placement) 1 ea QS N/A 07/06/17 08:00 08/05/17 07:59 07/19/17 15:34 1 EA Glucose (Glucose 40% Gel) 15-30 GRAMS 15 GRAMS... UD PRN PO 07/06/17 04:15 08/05/17 04:14 Glucose (Glucose Chew Tab) 4-8 Tablets 4 Tabl... UD PRN PO 07/06/17 04:15 08/05/17 04:14 Dextrose (Dextrose 50% 50ML Syringe) 25-50ML OF 50% DW IV FOR... UD PRN IV 07/06/17 04:15 08/05/17 04:14 07/06/17 05:40 25 ML Glucagon (Glucagon Inj) 1 mg UD PRN SQ 07/06/17 04:15 08/05/17 04:14 Enteral Nutritional Formula (Boost Glucose Control) 1 can BIDM PO 07/06/17 16:45 08/05/17 16:44 07/19/17 08:35 1 CAN Heparin Sodium (Porcine) (Heparin 100 Unit/ml 5ml Flush) 5 ml PRN PRN IV 07/07/17 02:45 08/06/17 02:44 07/19/17 13:47 5 ML Calcium Carbonate (Tums Chew Tab) 500 mg TIDM PO 07/07/17 17:00 08/05/17 08:59 07/19/17 17:05 500 MG Ondansetron HCl (Zofran Inj) 4 mg Q4H PRN IV 07/11/17 03:00 08/10/17 02:59 07/17/17 21:50 4 MG Ondansetron HCl (Zofran Tab) 4 mg Q6H PRN PO 07/11/17 10:15 08/10/17 10:14 Prochlorperazine Edisylate 5 mg/ Syringe 5 ml @ 5 mls/min Q4H PRN IV 07/11/17 14:00 08/10/17 13:59 Lactulose (Chronulac Syrup) 30 gm Q4H PRN PO 07/11/17 16:45 08/10/17 16:44 Senna (Senokot Tab) 8.6 mg QAM PO 07/12/17 08:00 08/11/17 07:59 07/17/17 08:57 8.6 MG Polyethylene (Miralax Powder Packet) 17 gm DAILY PO 07/11/17 16:45 08/05/17 02:29 07/18/17 07:50 17 GM Raspberry (Raspberry Syrup 5ml Cup) 5 ml Q6H PO 07/12/17 17:00 07/26/17 16:59 07/19/17 22:00 5 ML Vancomycin HCl (Consult) 1 ea UD PRN N/A 07/13/17 17:00 08/12/17 16:59 Oxycodone HCl (Roxicodone Immediate Rel Tab) 10 mg Q4H PRN PO 07/14/17 09:15 08/05/17 08:59 07/19/17 17:05 10 MG Methadone HCl (Dolophine Tab) 20 mg BID PO 07/14/17 09:30 07/28/17 09:29 07/19/17 20:10 20 MG Prednisone (PredniSONE TAB) 40 mg DAILY PO 07/15/17 08:00 08/05/17 08:59 07/19/17 08:35 40 MG Vancomycin HCl (Vancomycin Oral Soln) 125 mg Q6H PO 07/15/17 17:00 07/26/17 16:59 07/19/17 22:00 125 MG Simethicone (Mylicon Chew Tab) 80 mg Q6H PRN PO 07/17/17 23:15 08/16/17 23:14 Miscellaneous (Fentanyl Patch Remove & Waste) 1 ea Q3D@0859 N/A 07/22/17 08:59 08/21/17 08:58 Fentanyl (Duragesic Patch) 25 mcg Q3D@0900 TD 07/22/17 09:00 08/05/17 08:59 Ioversol (Optiray 320) 100 ml UD PRN IV 07/19/17 10:45 07/23/17 10:44 Heparin Sodium (Porcine) (No Heparin In Dialysis) 1 ea TODAY@0600 N/A 07/20/17 06:00 07/20/17 18:00 Epoetin Mohsen 8000 units/Syringe 0.4 ml @ 1 mls/min TODAY@0600 IV. 07/20/17 06:00 07/20/17 18:00 Levofloxacin (Consult) 1 ea UD PRN N/A 07/19/17 13:30 08/18/17 13:29 Levofloxacin (Levaquin Tab) 500 mg Q48H PO 07/21/17 16:00 07/28/17 15:59 Insulin Glargine (Lantus Solostar Pen) 6 units HS SC 07/20/17 21:00 08/19/17 20:59 Objective Vital Signs Date Time Temp Pulse Resp B/P (MAP) Pulse Ox O2 Delivery O2 Flow Rate FiO2 07/19/17 19:33 36.4 84 21 157/71 (99) 96 Nasal Cannula 4.0 07/19/17 16:00 95 Nasal Cannula 4.0 07/19/17 15:37 36.7 87 18 160/73 (102) 95 Nasal Cannula 4.0 07/19/17 11:44 36.8 87 20 158/79 (105) 93 07/19/17 09:00 Nasal Cannula 4.0 07/19/17 07:35 36.6 80 16 153/74 (100) 95 4.0 07/19/17 04:26 37.0 89 19 160/73 (102) 92 Nasal Cannula 4.0 07/19/17 00:06 Nasal Cannula 4.0 07/18/17 22:57 36.6 97 18 156/79 (104) 93 Nasal Cannula 4.0 Physical Exam Notes: General Appearance: WD/WN, no apparent distress Respiratory/Chest: chest non-tender, no respiratory distress, no accessory muscle use, + decreased breath sounds (bilateral LL) Cardiovascular: regular rate, rhythm, no edema, no gallop, no JVD, no murmur Abdomen: normal bowel sounds, soft, + tenderness (RLQ at site of hematoma) Extremities: + swelling (left hand, drainage of 4th interweb space of left hand ) 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, no motor/sensory deficits, alert, normal mood/affect Skin: normal color, warm/dry, scaly, no rash Laboratory Results Last Resulted 07/19/17 04:17 Red Blood Count 2.66, Mean Corpuscular Volume 95.5, Mean Corpuscular Hemoglobin 29.7, Mean Corpuscular Hemoglobin Concent 31.1, Mean Platelet Volume 10.8, Neutrophils (%) (Auto) 95.3, Lymphocytes (%) (Auto) 1.3, Monocytes (%) (Auto) 2.7, Eosinophils (%) (Auto) 0.1, Basophils (%) (Auto) 0.3, Neutrophils # (Auto) 10.89, Lymphocytes # (Auto) 0.15, Monocytes # (Auto) 0.31, Eosinophils # (Auto) 0.01, Basophils # (Auto) 0.04 Last Resulted 07/19/17 04:17 Assessment and Plan Mr. Christy is a 61 yo M with PMH ESRD on HD, RCC, DMII. Admitted for L hand cellulitis having failed outpatient management. Now with C.diff, neg urine/ blood cx, abdominal pain a/w rectus sheath hematoma, anemia, and bilateral pneumonia on imaging c/w likely GOLD STAMPER given hx vs. infectious process. Diarrhea - C.Diff - remains afebrile - C.diff positive - On oral vancomycin - day 8 - Considering multi-use of current abx, would recommend further 5-7 days of oral vanc after other abx are DCd - CT abdomen on admission - small right rectus sheath hematoma, no new lymphadenopathy, lesions of right kidney, unchanged from before - Stools now softly formed, less frequent, non-bloody, only abdominal pain a/w hematoma in RLQ Abdominal Pain - stable - H&H stable - secondary to rectus sheath hematoma - eating well with good appetite, denies n/v, wcc attributable to steroid, and palpable hematoma in direct region of pain is noted. appendicitis is in differential however is reassuring considering above Will continue to monitor for changes CT scan ordered by Dr. Bell today: healing hematoma, no evidence of ischemia or appendicitis - apply warm k-pad to the area for symptomatic relief - hold heparin for dvt prophylaxis and stop giving insulin injections in that area Left hand cellulitis - improving - ID consulted. Recommendations: - Currently on vanc &zosyn IV - day 13 of abx - should be able to convert to oral meds on DC; oral levaquin started with renal dosing x 14 days - possible reflex sympathetic dystrophy - consider neuro consult in the future +/- nerve conduction studies - MRI suggested cellulitis with myositis. No osteomyelitis, no abscess - warm compresses to help with pain - Recommend wound care on discharge SOB - bilateral PNA on imaging likely GOLD STAMPER given hx vs. infectious - new oxygen demand - on 4L and SOB without it - pulmonary consult - CT - Extensive groundglass opacity & multifocal consolidation since previous CT. Possible cryptogenic organizing pneumonia/drug related pneumonitis - increased prednisone from 10mg daily to 40mg daily. Will taper by 5 weekly - IV zosyn to include anaerobe coverage - levaquin commenced renal dosing x 14 days - Continue O2 supplementation to maintain SaO2 >92%, will attempt wean down to 3L. Encephalopathy - improved - Unclear whether toxic from narcotics vs. metabolic vs. other - Decreased Oxycodone from 20mg to 10mg QID PRN - Ammonia normal at 26.4, VBG w/o significant hypercarbia PCO2 - 50 - Consider head CT to rule out mets from RCC if worsens ESRD HD secondary to RCC/ s/p left nephrectomy - Nephrology Consulted - HD tomorrow - receives HD on Tuesdays, and Saturdays - appreciate oncology's input: - continue cabozantinib -> although does contain warning for GI perf and fistula - may repeat CT scan if he does not improve - next scans planned for July - hypocalcemia; will check Vit D level Chronic Pain - continue fentanyl - Dr. Jackson consulted. Recommendations - continue prn oxycodone - dose decreased to 10mg q4h prn in light of encephalopathy - pt was on increased dose of methadone at 20 mg BID since 06/20 - in the hospital, he has been on 10mg TID, will increase to previous regimen of 20mg BID - Recommends rehab at [facility] DMII - 7 units of Lantus with sliding scale - BSG AC HS Anemia - Hgb today stable 8.9; ferritin 1870 - nephrology -> continue epogen 73621 units and venofer 100mg - continue to monitor HTN/hyperlipidemia - continue asa 81 mg, furosemide 40 mg - continue hydralazine 100 mg tid, amlodipine 10 mg daily, metoprolol 150 mg bid and lisinopril 40 mg daily - continue simvastatin 20 mg daily - I&O and daily weights BPH - continue tamsulosin 0.4 mg CKD Bone Mineral Disease - Continue oral Calcitriol - Continue CaCO3 500 mg with meals DVT Prophylaxis: SCDs Code: Full Disposition: remains on med/onc. Discussion about d/c to [facility]; referral also placed at [facility] on 07/14. May be able to DC tomorrow Resident Physician Supervision Note: I interviewed and examined the patient. Discussed with Dr. Pitt and agree with findings and plan as documented in the note. Any exceptions or clarifications are listed here: None Documented By: Jim Genao hand about the same, maybe a little better. breathing about the same. CT abd/ pelvis ordered by nephrology vitls noted nad breathing unlabored hand about the same middle card tender 4th metacarpal area no crepitis no pain w joint movement abdominal pain - await CT. certainly hematoma and constipation would explain, ? other factors hand cellulitis - seems improving but watch MC closely since middle card tender there. low threshold to image for osteo given ongoing infectious troubles GOLD STAMPER - abx for pneumonia that apperas superimposed, steroids, ongoing pulmonary management otherwise as above Resident Tracking Resident Involvement: Resident Care Provided Care Provided: Adult Hospital Medicine
[2017-07-20] VITALS (21 sets, daily range): BP systolic 83–160; BP diastolic 54–103; PULSE 67–90; TEMP 36.3–36.9; O2SAT 95–98
[2017-07-20] MEDS: OXYCODONE HCL IR 5 MG TAB (IMMEDIATE RELEASE) PO PRN ×4 (04:27→16:51)
[2017-07-20] MEDS: VANCOMYCIN HCL 125 MG/2.5ML SOLN PO SCH ×3 (04:34→17:27)
[2017-07-20] MEDS: RASPBERRY SYRUP 5 ML UDP PO SCH ×3 (04:34→17:27)
[2017-07-20 05:32] LABS: HEMATOCRIT 29.8 % (42-52); HEMOGLOBIN 9.5 g/dL (14.0-18.0); MEAN CELL VOLUME 94.3 fL (80-100); MEAN CORPUSCULAR HEMOGLOBIN 30.1 pg (25-34); MEAN CORPUSCULAR HGB CONC 31.9 g/dl (32-36); MEAN PLATELET VOLUME 11.4 fL (7.4-10.4); PLATELET COUNT 202 K/uL (130-400); RED CELL DISTRIBUTION WIDTH SD 83.1 fL (36.4-46.3); WHITE BLOOD COUNT 11.29 K/uL (4.8-10.8)
[2017-07-20 05:54] LABS: ALBUMIN 1.3 gm/dl (3.4-5.0); CALCIUM 8.5 mg/dl (8.5-10.1); CREATININE 4.18 mg/dl (0.60-1.40); POTASSIUM 4.6 mmol/L (3.5-5.1)
[2017-07-20 05:57] LABS: TOTAL PROTEIN 4.4 gm/dl (6.4-8.2)
[2017-07-20 05:59] LABS: NUCLEATED RED BLOOD CELL ABS 1.26 K/uL (0-0)
[2017-07-20] MEDS ORDERED: EPOETIN ALFA INJ 8,000 UNITS in SYRINGE 0 ML IV. SCH (06:00)
[2017-07-20] MEDS ORDERED: EPOETIN ALFA 10,000 UNITS/ML VIAL IV. ONE (06:00)
[2017-07-20] MEDS: POLYETHYLENE (MIRALAX) 17 GM PACK PO SCH (08:00)
[2017-07-20] MEDS: SENNA 8.6 MG TAB PO SCH (08:00)
[2017-07-20] MEDS: CHECK FENTANYL PATCH PLACEMENT SCH ×2 (08:25→15:24)
[2017-07-20] MEDS: BOOST GLUCOSE CONTROL PO SCH (08:26)
[2017-07-20] MEDS: METHADONE HCL 10 MG TAB PO SCH (08:28)
[2017-07-20] MEDS: ASPIRIN 81 MG ECTAB PO SCH (08:28)
[2017-07-20] MEDS: LACTOBACILLUS ACIDOPHILUS (FLORANEX) TAB PO SCH ×2 (08:29→14:15)
[2017-07-20] MEDS: CALCITRIOL 0.25 MCG CAP PO SCH (08:31)
[2017-07-20] MEDS: CALCIUM CARBONATE 500 MG CHEWABLE PO SCH ×3 (08:31→17:27)
[2017-07-20] MEDS: INSULIN ASPART 100 UNITS/ML 3 ML PEN SC SCH ×3 (08:41→16:30)
[2017-07-20] MEDS ORDERED: NURSING DECISION MEDICATION ORDER SCH (09:15)
--- NOTE | 2017-07-20 09:15 | ONCOLOGY CONSULTATION ---
DATE OF CONSULTATION: 07/20/2017 DATE OF CONSULTATION: 07/20/2017 REASON FOR CONSULTATION: New onset nonspecific colitis, questioning chemotherapeutic effect. HISTORY OF PRESENT ILLNESS: Mr. Christy is a pleasant 61-year-old gentleman well known to [facility] under the care of Dr. Hunter Dao with metastatic renal cell carcinoma. The patient has now been hospitalized for a total of 15 days with multiple clinical issues including Clostridium difficile, left hand cellulitis, shortness of breath, suspected pneumonitis, toxic encephalopathy, as well as end-stage renal disease. Again, these clinical issues are actively being addressed as the patient continues hemodialysis support. More recently, the patient developed worsening abdominal pain. He describes his increased fullness, bloating with some belching. CT scan of the abdomen and pelvis was performed yesterday revealing small bowel thickening around the jejunum thought to be suggestive of infectious enteritis, celiac disease or ischemia. However, there was no evidence of steer mesenteric arterial occlusion or significant atherosclerosis. Mr. Christy continues Cabometyx which is one of the newer antiangiogenic tyrosine kinase inhibitor, specifically for renal cell carcinoma. The patient estimates he has been on therapy for approximately 2-3 months and nephrology recently held his daily dose. The question is whether cabozantinib is the inciting agent for patient's active inflammation. Review of side effects associated with this agent includes thromboembolic disease, nephrotic syndrome, GI perforation as well as impaired wound healing. There is no specific listed reaction associated with colitis necessarily. Nonetheless, in light of these findings, it's reasonable to continue holding therapy temporarily. PAST MEDICAL HISTORY: Significant for diabetes mellitus, end-stage renal disease, metastatic renal cell carcinoma, pneumonitis, Clostridium difficile colitis, upper extremity cellulitis. MEDICATIONS: Include amlodipine 10 mg p.o. every day, aspirin 81 mg p.o. every day, Cabometyx 60 mg p.o. daily, calcitriol 0.25 mcg p.o. every other day, calcium carbonate 500 mg p.o., daptomycin 350 mg IV q. 48 hours, Fentanyl 25 mcg patch topically, Lasix 40 mg p.o. every day, hydralazine 100 mg p.o. t.i.d., insulin Glargine 14 units subQ at bedtime, Humulin N by sliding scale t.i.d., lisinopril 1 tablet p.o. every day, methadone 10 mg p.o. t.i.d., metoprolol 100 mg p.o. b.i.d., oxycodone 10 mg p.o. t.i.d., prednisone 10 mg p.o. t.i.d., simvastatin 20 mg p.o. at bedtime, Flomax 0.4 mg p.o. at bedtime. ALLERGIES: IV DYE. SOCIAL HISTORY: The patient is single, lives independently. Nonsmoker, nondrinker. He is currently disabled. FAMILY HISTORY: Significant for cervical cancer, diabetes mellitus, heart disease, hypertension, coronary artery disease, pancreatic and prostate cancers. REVIEW OF SYSTEMS: Currently not experiencing fever, chills or sweats. He is tolerating regular diet being served at bedside this morning. SKIN: No active rashes or lesions. HEAD, EYES, EARS, NOSE, AND THROAT: He denies headaches, lightheadedness or dizziness. No acute visual or hearing deficits. No sinus symptoms, sore throat or dysphagia. LYMPH: No history of lymphoproliferative disease or peripheral lymphadenopathy. CARDIAC: Negative for angina or palpitations. PULMONARY: Currently battling with nonspecific pneumonitis. He is not short of breath, dyspneic or orthopneic presently. GASTROINTESTINAL: Positive for bloating, belching, abdominal fullness. No nausea or vomiting, diarrhea or constipation, hematochezia or melena at present. GENITOURINARY: No hematuria, dysuria. PSYCHIATRIC: Negative for anxiety, depression or psychoses. ENDOCRINE: Positive for diabetes mellitus. NEUROLOGIC: Negative for seizure, stroke, or migraine headache by history. HEMATOLOGIC: Positive for anemia and mild leukocytosis. PHYSICAL EXAMINATION: GENERAL: Very pleasant 61-year-old gentleman lying supine in bed in no acute distress at this time. VITAL SIGNS: Temperature 36.9, pulse 82, respiratory rate 18, blood pressure 138/70. SKIN: Warm, dry, noncyanotic with petechia, rash or ecchymosis. HEAD: Atraumatic, normocephalic. EYES: PERRLA, EOMI. Sclerae nonicteric. No conjunctival injection. Nares are patent without rhinorrhea or discharge. Throat is clear. Tongue is midline. Mucous membranes are moist. NECK: Supple without JVD or thyromegaly. LYMPH: No cervical, supraclavicular, axillary or inguinal palpable nodes. HEART: Regular rate and rhythm. No clicks, rubs, murmurs or gallops. LUNGS: Clear to auscultation bilaterally. ABDOMEN: Soft, nontender, nondistended, without palpable hepatosplenomegaly. EXTREMITIES: No calf tenderness or swelling. No clubbing, cyanosis or edema. NEUROLOGICALLY: He is awake, alert and oriented x3. Cranial nerves II-XII are intact. No gross motor or sensory deficits are noted. LABORATORY DATA: WBC count 11,290, hemoglobin 9.5, platelet count 202,000. Sodium 132, potassium 4.6, chloride 98, carbon dioxide 30, BUN 42, creatinine 4.18, albumin 1.3. IMPRESSION: 1. Nonspecific small bowel wall thickening seen on CT scan. 2. Clostridium difficile colitis. 3. Left upper extremity cellulitis. 4. Pneumonitis. 5. Metastatic renal cell carcinoma. 6. Hypoalbuminemia. 7. Normocytic normochromic anemia. PLAN: Mr. Christy is a very pleasant 61-year-old gentleman well known to [facility] suffering from metastatic renal cell carcinoma under the care of Dr. Hunter Dao. He is presently on Cabometyx. Recently developed worsening abdominal pain leading up to CT scan of the abdomen and pelvis which again showed small bowel thickening around the jejunum. He is actively being treated for Clostridium difficile colitis which may or may not be the cause of his ongoing inflammation. Nephrology has held Cabometyx at present and I agree with continuing to hold the agent to see if his symptoms improve. Review of side effects associated with Cabometyx do not directly suggest colitis, however there are other GI side effects, particularly bowel perforation, diarrhea and abdominal pain which have been documented. I will inform Dr. Dao therapy is on hold and ensure Mr. Christy has scheduled followup upon discharge. According to Mr. Christy he is pending discharge to a rehabilitation facility. Thank you very much for allowing us to participate in his care. If you have any further questions or concerns, feel free to contact us at any time. TALIA
--- NOTE | 2017-07-20 09:17 | Palliative Care Progress Note ---
Palliative Care Progress Note Date of Service Jul 20, 2017. Subjective Pt evaluation today including: conversation w/ patient, physical exam, chart review, lab review, review of studies, review of inpatient medication list Pain: "ok' per pt Voiding: no incontinence Pt required 3 prn oxy yesterday and 2 today so far - pt usually requires 4 doses in 24 hours at home. Discussed using prn oxy prior to therapy when d/c to [facility] so he can fully participate in therapies. he is to have dialysis today and hopefully transfer to tomorrow for rehab. Review of Systems Constitutional: No fever, No chills Eyes: No redness ENT: No hearing loss Respiratory: No cough, No sputum Cardiac: No chest pain Abdomen: + pain (RLQ radiates across lower abdomen) Musculoskeletal: + swelling (L hand swelling improved ) Male : No dysuria Neurologic: + weakness, + balance problems Endo: + fatigue Objective Vital Signs Date Time Temp Pulse Resp B/P (MAP) Pulse Ox O2 Delivery O2 Flow Rate FiO2 07/20/17 07:31 36.9 82 18 138/70 (92) 95 5.0 07/20/17 04:00 36.7 87 18 160/75 (103) 95 Nasal Cannula 4.0 07/20/17 00:10 Nasal Cannula 4.0 07/19/17 23:10 36.6 82 22 150/74 (99) 96 Nasal Cannula 4.0 07/19/17 19:33 36.4 84 21 157/71 (99) 96 Nasal Cannula 4.0 07/19/17 16:00 95 Nasal Cannula 4.0 07/19/17 15:37 36.7 87 18 160/73 (102) 95 Nasal Cannula 4.0 07/19/17 11:44 36.8 87 20 158/79 (105) 93 Physical Exam General Appearance: no apparent distress, + pertinent finding (increased cushinoid facies) Eyes: EOMI ENT: hearing grossly normal Neck: supple Respiratory/Chest: lungs clear, no respiratory distress Cardiovascular: regular rate, rhythm, no edema (LE) Abdomen: + tenderness (RLQ and across lower abdomen, decreased BS) Extremities: + pertinent finding (L hand with continued swellling - compression glove not in place) Skin: warm/dry Laboratory Results Last 24 Hours Test 07/19/17 11:37 07/19/17 16:44 07/19/17 20:02 07/20/17 04:53 Bedside Glucose 133 mg/dl 110 mg/dl 88 mg/dl White Blood Count 11.29 K/uL Red Blood Count 3.16 M/uL Hemoglobin 9.5 g/dL Hematocrit 29.8 % Mean Corpuscular Volume 94.3 fL Mean Corpuscular Hemoglobin 30.1 pg Mean Corpuscular Hemoglobin Concent 31.9 g/dl RDW Standard Deviation 83.1 fL RDW Coefficient of Variation 25.0 % Platelet Count 202 K/uL Mean Platelet Volume 11.4 fL Nucleated RBC Absolute Count (auto) 1.26 K/uL Nucleated Red Blood Cells % 11.2 % Sodium Level 132 mmol/L Potassium Level 4.6 mmol/L Chloride Level 98 mmol/L Carbon Dioxide Level 30 mmol/L Anion Gap 4.0 mmol/L Blood Urea Nitrogen 42 mg/dl Creatinine 4.18 mg/dl Est Creatinine Clear Calc Drug Dose 18.7 ml/min Estimated GFR () 16.4 Estimated GFR (Non- 14.1 BUN/Creatinine Ratio 10.1 Random Glucose 79 mg/dl Calcium Level 8.5 mg/dl Total Bilirubin 0.3 mg/dl Aspartate Amino Transf (AST/SGOT) 39 U/L Alanine Aminotransferase (ALT/SGPT) 37 U/L Alkaline Phosphatase 82 U/L Lactate Dehydrogenase 821 U/L Total Protein 4.4 gm/dl Albumin 1.3 gm/dl Globulin 3.1 gm/dl Albumin/Globulin Ratio 0.4 25-Hydroxy Vitamin D Total 9.4 ng/ml Random Vancomycin Level 14.5 mcg/ml Test 07/20/17 08:10 Bedside Glucose 84 mg/dl Assessment and Plan (1) Pain due to neoplasm Status: Chronic Assessment & Plan: Doing "ok" on current methadone dose and prn oxy - encouraged pt to use as needed (2) Cellulitis of left hand Status: Acute Assessment & Plan: Improving - swelling still present - educated pt on elevating hand and placing compression glove when swelling has gone down to prevent return of edema (3) ESRD (end stage renal disease) on dialysis Status: Acute Assessment & Plan: For dialysis today and cont 3 x /wk at rehab (4) Hypoxemia requiring supplemental oxygen Status: Acute Assessment & Plan: Improved, pt would benefit from incentive spirometer (5) High risk medication use Status: Acute Assessment & Plan: Methadone adjusted on 06/20 - no further increased planned at this time. Pt given info for [facility] to contact me with any questions regarding pain regime. Pt will follow in clinic after d/c from . Total time 35 min with > 50 % of time spent discussing POC and f/u after d/c from [facility] Palliative Performance Scale: 50 % Continued [facility] stay due to: ambulation difficulties Discharge planning: rehab hospital
[2017-07-20] MEDS: FUROSEMIDE 40 MG TAB PO SCH (09:31)
[2017-07-20] MEDS: LISINOPRIL 40 MG TAB PO SCH (09:32)
[2017-07-20] MEDS: AMLODIPINE BESYLATE 5 MG TAB PO SCH (09:32)
[2017-07-20] MEDS: ERGOCALCIFEROL 50,000 INTER.UNIT CAP PO SCH (09:32)
[2017-07-20] MEDS: METOPROLOL TARTRATE 100 MG TAB PO SCH (09:33)
--- NOTE | 2017-07-20 11:29 | Nephrology Progress Note ---
Nephrology Progress Note Date of Service Jul 20, 2017. Chief Complaint Provide inpatient HD and assist w/ medical management of this patient w/ ESRD Subjective Mr. Christy was seen and examined in his hospital room this morning. He reports that his abdominal discomfort is now bilateral upper quadrants. He has had no N /V. He continues to have loose stool Review of Systems Constitutional: No fever Cardiovascular: No chest pain Respiratory: No dyspnea at rest Abdomen: + pain, + diarrhea, No nausea, No vomiting Extremities: No leg edema A complete review of systems was performed. Pertinent positives are noted above. All other systems are negative. Vital Signs Last 8 Hrs Date Time Temp Pulse Resp B/P (MAP) Pulse Ox O2 Delivery O2 Flow Rate FiO2 07/20/17 08:00 Nasal Cannula 5.0 07/20/17 07:31 36.9 82 18 138/70 (92) 95 5.0 07/20/17 04:00 36.7 87 18 160/75 (103) 95 Nasal Cannula 4.0 Last Recorded Weight Weight (Kilograms): 84.700 Physical Exam General Appearance: + mild distress Head: atraumatic (cushingoid appearing) Eyes: PERRL, EOMI Neck: no adenopathy Respiratory/Chest: lungs clear, no respiratory distress Cardiovascular: regular rate, rhythm Abdomen/GI: soft (tender to deep palpation in all 4 quadrants. No guarding) Extremities/Musculoskelatal: no pedal edema Neurologic/Psych: alert, oriented x 3 Family History Cervical cancer Diabetes mellitus Heart disease Hypertension Myocardial infarction Pancreatic cancer Prostate cancer Negative for CKD/ESRD Social History Smokeless Tobacco Use: No Alcohol Use: none Drug Use: none Marital Status: single Housing Status: lives alone Occupation: disabled Single, retired. Formerly worked for [employer]. Never a smoker. Laboratory Results Past 24 Hours 07/20/17 04:53 07/20/17 04:53 Test 07/19/17 11:37 07/19/17 16:44 07/19/17 20:02 07/20/17 04:53 Bedside Glucose 133 mg/dl (70-99) 110 mg/dl (70-99) 88 mg/dl (70-99) Red Blood Count 3.16 M/uL (4.7-6.1) Mean Corpuscular Volume 94.3 fL (80-100) Mean Corpuscular Hemoglobin 30.1 pg (25-34) Mean Corpuscular Hemoglobin Concent 31.9 g/dl (32-36) RDW Standard Deviation 83.1 fL (36.4-46.3) RDW Coefficient of Variation 25.0 % (11.5-14.5) Mean Platelet Volume 11.4 fL (7.4-10.4) Nucleated RBC Absolute Count (auto) 1.26 K/uL (0-0) Nucleated Red Blood Cells % 11.2 % Anion Gap 4.0 mmol/L (3-11) Est Creatinine Clear Calc Drug Dose 18.7 ml/min Estimated GFR () 16.4 Estimated GFR (Non- 14.1 BUN/Creatinine Ratio 10.1 (10-20) Calcium Level 8.5 mg/dl (8.5-10.1) Total Bilirubin 0.3 mg/dl (0.2-1) Aspartate Amino Transf (AST/SGOT) 39 U/L (15-37) Alanine Aminotransferase (ALT/SGPT) 37 U/L (12-78) Alkaline Phosphatase 82 U/L (45-117) Lactate Dehydrogenase 821 U/L (87-241) Total Protein 4.4 gm/dl (6.4-8.2) Albumin 1.3 gm/dl (3.4-5.0) Globulin 3.1 gm/dl (2.5-4.0) Albumin/Globulin Ratio 0.4 (0.9-2) 25-Hydroxy Vitamin D Total 9.4 ng/ml (30-100) Random Vancomycin Level 14.5 mcg/ml Test 07/20/17 08:10 Bedside Glucose 84 mg/dl (70-99) Allergies Coded Allergies: Iodinated Diagnostic Agents (Verified Allergy, Unknown, oil based, severe headaches, 06/20/17) EVENT OCCURED IN 1971, PT STATES HE HAS HAD 3 DIFFERENT WATER BASED IVP DYES WITH NO ISSUE Medications Current Inpatient Medications Medications (Trade) Dose Ordered Sig/Edward Route Start Time Stop Time Status Last Admin Dose Admin Acetaminophen (Tylenol Tab) 650 mg Q4H PRN PO 07/05/17 21:45 08/04/17 21:44 07/19/17 15:21 650 MG Amlodipine Besylate (Norvasc Tab) 10 mg QAM PO 07/06/17 09:00 08/05/17 08:59 07/20/17 09:32 10 MG Aspirin (Ecotrin Tab) 81 mg QAM PO 07/06/17 09:00 08/05/17 08:59 07/20/17 08:28 81 MG Calcitriol (Rocaltrol Cap) 0.25 mcg Q2D PO 07/06/17 09:00 08/05/17 08:59 07/20/17 08:31 0.25 MCG Furosemide (Lasix Tab) 40 mg QAM PO 07/06/17 09:00 08/05/17 08:59 07/20/17 09:31 40 MG Hydralazine HCl (Apresoline Tab) 100 mg TID PO 07/06/17 09:00 08/05/17 08:59 07/20/17 09:30 100 MG Lactobacillus Acidophilus (Floranex Tab) 2 tab TID PO 07/06/17 09:00 08/05/17 08:59 07/20/17 08:29 2 TAB Lisinopril (Zestril Tab) 40 mg DAILY PO 07/06/17 09:00 08/05/17 08:59 07/20/17 09:32 40 MG Metoprolol Tartrate (Lopressor Tab) 150 mg BID PO 07/06/17 09:00 08/05/17 08:59 07/20/17 09:33 150 MG Simvastatin (Zocor Tab) 20 mg QPM PO 07/06/17 21:00 08/05/17 20:59 07/19/17 20:12 20 MG Tamsulosin HCl (Flomax Cap) 0.4 mg HS PO 07/06/17 21:00 08/05/17 20:59 07/19/17 20:11 0.4 MG Insulin Aspart (novoLOG ASPART) SLIDING SCALE G... ACHS SC 07/06/17 07:00 08/05/17 06:59 07/20/17 08:41 4 UNITS Miscellaneous Information (Check Fentanyl Patch Placement) 1 ea QS N/A 07/06/17 08:00 08/05/17 07:59 07/20/17 08:25 1 EA Glucose (Glucose 40% Gel) 15-30 GRAMS 15 GRAMS... UD PRN PO 07/06/17 04:15 08/05/17 04:14 Glucose (Glucose Chew Tab) 4-8 Tablets 4 Tabl... UD PRN PO 07/06/17 04:15 08/05/17 04:14 Dextrose (Dextrose 50% 50ML Syringe) 25-50ML OF 50% DW IV FOR... UD PRN IV 07/06/17 04:15 08/05/17 04:14 07/06/17 05:40 25 ML Glucagon (Glucagon Inj) 1 mg UD PRN SQ 07/06/17 04:15 08/05/17 04:14 Heparin Sodium (Porcine) (Heparin 100 Unit/ml 5ml Flush) 5 ml PRN PRN IV 07/07/17 02:45 08/06/17 02:44 07/20/17 05:22 5 ML Calcium Carbonate (Tums Chew Tab) 500 mg TIDM PO 07/07/17 17:00 08/05/17 08:59 07/20/17 08:31 500 MG Ondansetron HCl (Zofran Inj) 4 mg Q4H PRN IV 07/11/17 03:00 08/10/17 02:59 07/17/17 21:50 4 MG Ondansetron HCl (Zofran Tab) 4 mg Q6H PRN PO 07/11/17 10:15 08/10/17 10:14 Prochlorperazine Edisylate 5 mg/ Syringe 5 ml @ 5 mls/min Q4H PRN IV 07/11/17 14:00 08/10/17 13:59 Lactulose (Chronulac Syrup) 30 gm Q4H PRN PO 07/11/17 16:45 08/10/17 16:44 Senna (Senokot Tab) 8.6 mg QAM PO 07/12/17 08:00 08/11/17 07:59 07/17/17 08:57 8.6 MG Polyethylene (Miralax Powder Packet) 17 gm DAILY PO 07/11/17 16:45 08/05/17 02:29 07/18/17 07:50 17 GM Raspberry (Raspberry Syrup 5ml Cup) 5 ml Q6H PO 07/12/17 17:00 07/26/17 16:59 07/20/17 04:34 5 ML Oxycodone HCl (Roxicodone Immediate Rel Tab) 10 mg Q4H PRN PO 07/14/17 09:15 08/05/17 08:59 07/20/17 08:32 10 MG Methadone HCl (Dolophine Tab) 20 mg BID PO 07/14/17 09:30 07/28/17 09:29 07/20/17 08:28 20 MG Prednisone (PredniSONE TAB) 40 mg DAILY PO 07/15/17 08:00 08/05/17 08:59 07/20/17 08:30 40 MG Vancomycin HCl (Vancomycin Oral Soln) 125 mg Q6H PO 07/15/17 17:00 07/26/17 16:59 07/20/17 04:34 125 MG Simethicone (Mylicon Chew Tab) 80 mg Q6H PRN PO 07/17/17 23:15 08/16/17 23:14 Miscellaneous (Fentanyl Patch Remove & Waste) 1 ea Q3D@0859 N/A 07/22/17 08:59 08/21/17 08:58 Fentanyl (Duragesic Patch) 25 mcg Q3D@0900 TD 07/22/17 09:00 08/05/17 08:59 Ioversol (Optiray 320) 100 ml UD PRN IV 07/19/17 10:45 07/23/17 10:44 Heparin Sodium (Porcine) (No Heparin In Dialysis) 1 ea TODAY@0600 N/A 07/20/17 06:00 07/20/17 18:00 Epoetin Mohsen 8000 units/Syringe 0.4 ml @ 1 mls/min TODAY@0600 IV. 07/20/17 06:00 07/20/17 18:00 Levofloxacin (Consult) 1 ea UD PRN N/A 07/19/17 13:30 08/18/17 13:29 Levofloxacin (Levaquin Tab) 500 mg Q48H PO 07/21/17 16:00 07/28/17 15:59 Insulin Glargine (Lantus Solostar Pen) 6 units HS SC 07/20/17 21:00 08/19/17 20:59 Ergocalciferol (Vitamin D Cap) 50,000 interunit Q7D@0900 PO 07/20/17 09:00 08/19/17 08:59 07/20/17 09:32 50,000 INTERUNIT Cholecalciferol (Vitamin D Tab) 2,000 inter.unit QAM PO 07/21/17 08:00 08/20/17 07:59 Enteral Nutritional Formula (Boost) 1 can TID PO 07/20/17 14:00 08/19/17 13:59 Ranitidine HCl (zANTac TAB) 150 mg BID PO 07/20/17 20:00 08/19/17 19:59 UNV Impression (1) Cellulitis of left hand (2) ESRD (end stage renal disease) on dialysis (3) Renal cell carcinoma (4) Anemia (5) Diabetes type 2, controlled Mr. Christy is a 61-year-old male with ESRD and metastatic RCC. He underwent left nephrectomy in 2016. He is maintained on Cabometyx. Mr. Christy did not tolerate Sutent due to high grade proteinuria, Opdivo caused arthralgia, colitis and possible pneumonitis. 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 Mr. Christy was admitted with persistent soft tissue infection of the left hand. This improved with antibiotics. He now has a possible evolving pneumonia. Current antibiotics include Zosyn and Vancomycin. Mr. Christy developed abdominal pain associated with an abdominal wall hematoma. Stool was checked for C diff and he is on treatment for this as well. Recommendations END STAGE RENAL DISEASE: -- HD today (heparin free due to intestinal edema). Orders entered into EMR and HD RN notified ANEMIA: -- Will provide IDALIA w/ HD treatments HYPERTENSION: -- Blood pressure is currently well controlled. Continue current antihypertensive regimen. No change at present. RENAL CELL CA: -- Cabozantinib held due to small intestinal inflammation. 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 Cabozantinib has been held. Oncology is in agreement. Consider consultation w/ GI
[2017-07-20] MEDS ORDERED: RANITIDINE HCL 150 MG TAB PO SCH (13:00)
--- NOTE | 2017-07-20 13:05 | PULMONARY PROGRESS NOTE ---
DATE: 07/20/2017 TIME: 12:25 p.m. SUBJECTIVE: The patient complains mainly of abdominal pain. This is mainly in the lower quadrant, more on the right. He feels that he cannot take a deep breath. He thinks this may be related to his distended abdomen. It feels like his air cuts off. Otherwise, he is not noticing any significant shortness of breath. He has very little cough. He has no mucus. OBJECTIVE: GENERAL: The patient looked comfortable. VITAL SIGNS: Temperature was 36.9. He has had no fevers for at least 3 days. Heart rate is 88 per minute. The rhythm is regular. Blood pressure 150/75. LUNGS: Auscultation of the lung calderon revealed slightly decreased breath sounds at the right base. Otherwise, the lungs were clear. His oxygen saturation was 96% on 5 liters. His respiratory rate was 18 breaths per minute. ABDOMEN: Appears modestly distended. There is a scar from prior surgery. Bowel sounds were active. He complained of relatively diffuse tenderness. EXTREMITIES: Showed mild edema of both lower extremities. LABORATORY DATA: White count today was 11.29. Hemoglobin 9.5. Platelets 202,000. Electrolytes show sodium 132, potassium 4.6, chloride 98, and bicarbonate 30. The BUN was 42 with a creatinine of 4.18. IMPRESSIONS: 1. Acute hypoxic respiratory failure. 2. Right pleural effusion. 3. Right lower lobe infiltrate. 4. History of renal cell carcinoma. 5. Chronic kidney disease, on hemodialysis. 6. Abdominal pain. COMMENTS: The patient's respiratory status seems stable, although he is still requiring a fair amount of oxygen. He is still on levofloxacin. He is on vancomycin oral solution. He is on prednisone 40 mg daily. This can soon be tapered down to 30 mg daily. It had previously been recommended to decrease by 10 mg daily per week. Ultimately, he will need a followup chest x-ray.
[2017-07-20] MEDS ORDERED: BOOST VANILLA PO SCH (14:00)
[2017-07-20] MEDS: BOOST VANILLA PO SCH (14:56)
[2017-07-20] MEDS: ACETAMINOPHEN 325 MG TAB PO PRN (15:28)
[2017-07-20] MEDS ORDERED: VANCOMYCIN INJ 750 MG in SODIUM CHLORIDE 0.9% 250ML 250 ML IV SCH (16:00)
--- NOTE | 2017-07-20 22:48 | Family Medicine Progress Note ---
Progress Note Date of Service Jul 20, 2017. Subjective Pt evaluation today including: conversation w/ patient, physical exam, chart review, lab review, review of studies, review of inpatient medication list Pain: Patient reporting LUQ abdominal pain which he states is as severe RLQ pain PO Intake: tolerating well Voiding: no voiding problems New onset of LUQ pain and tenderness which he states is just as bad as if not worse than his persistent RLQ pain. States hand is feeling better. Constitutional: + fatigue, No fever, No chills, No sweats, No weight loss, No weakness, No problem reported Respiratory: + shortness of breath, + dyspnea on exertion, + dyspnea at rest Abdomen: + pain (LUQ and RLQ pain) Musculoskeletal: + muscle pain, + swelling All Other Systems: Reviewed and Negative Medications Current Inpatient Medications Medications (Trade) Dose Ordered Sig/Edward Route Start Time Stop Time Status Last Admin Dose Admin Acetaminophen (Tylenol Tab) 650 mg Q4H PRN PO 07/05/17 21:45 08/04/17 21:44 07/20/17 15:28 650 MG Amlodipine Besylate (Norvasc Tab) 10 mg QAM PO 07/06/17 09:00 08/05/17 08:59 07/20/17 09:32 10 MG Aspirin (Ecotrin Tab) 81 mg QAM PO 07/06/17 09:00 08/05/17 08:59 07/20/17 08:28 81 MG Calcitriol (Rocaltrol Cap) 0.25 mcg Q2D PO 07/06/17 09:00 08/05/17 08:59 07/20/17 08:31 0.25 MCG Furosemide (Lasix Tab) 40 mg QAM PO 07/06/17 09:00 08/05/17 08:59 07/20/17 09:31 40 MG Hydralazine HCl (Apresoline Tab) 100 mg TID PO 07/06/17 09:00 08/05/17 08:59 07/20/17 09:30 100 MG Lactobacillus Acidophilus (Floranex Tab) 2 tab TID PO 07/06/17 09:00 08/05/17 08:59 07/20/17 14:15 2 TAB Lisinopril (Zestril Tab) 40 mg DAILY PO 07/06/17 09:00 08/05/17 08:59 07/20/17 09:32 40 MG Metoprolol Tartrate (Lopressor Tab) 150 mg BID PO 07/06/17 09:00 08/05/17 08:59 07/20/17 09:33 150 MG Simvastatin (Zocor Tab) 20 mg QPM PO 07/06/17 21:00 08/05/17 20:59 07/19/17 20:12 20 MG Tamsulosin HCl (Flomax Cap) 0.4 mg HS PO 07/06/17 21:00 08/05/17 20:59 07/19/17 20:11 0.4 MG Insulin Aspart (novoLOG ASPART) SLIDING SCALE G... ACHS SC 07/06/17 07:00 08/05/17 06:59 07/20/17 12:46 2 UNITS Miscellaneous Information (Check Fentanyl Patch Placement) 1 ea QS N/A 07/06/17 08:00 08/05/17 07:59 07/20/17 15:24 1 EA Glucose (Glucose 40% Gel) 15-30 GRAMS 15 GRAMS... UD PRN PO 07/06/17 04:15 08/05/17 04:14 Glucose (Glucose Chew Tab) 4-8 Tablets 4 Tabl... UD PRN PO 07/06/17 04:15 08/05/17 04:14 Dextrose (Dextrose 50% 50ML Syringe) 25-50ML OF 50% DW IV FOR... UD PRN IV 07/06/17 04:15 08/05/17 04:14 07/06/17 05:40 25 ML Glucagon (Glucagon Inj) 1 mg UD PRN SQ 07/06/17 04:15 08/05/17 04:14 Heparin Sodium (Porcine) (Heparin 100 Unit/ml 5ml Flush) 5 ml PRN PRN IV 07/07/17 02:45 08/06/17 02:44 07/20/17 05:22 5 ML Calcium Carbonate (Tums Chew Tab) 500 mg TIDM PO 07/07/17 17:00 08/05/17 08:59 07/20/17 17:27 500 MG Ondansetron HCl (Zofran Inj) 4 mg Q4H PRN IV 07/11/17 03:00 08/10/17 02:59 07/17/17 21:50 4 MG Ondansetron HCl (Zofran Tab) 4 mg Q6H PRN PO 07/11/17 10:15 08/10/17 10:14 Prochlorperazine Edisylate 5 mg/ Syringe 5 ml @ 5 mls/min Q4H PRN IV 07/11/17 14:00 08/10/17 13:59 Lactulose (Chronulac Syrup) 30 gm Q4H PRN PO 07/11/17 16:45 08/10/17 16:44 Senna (Senokot Tab) 8.6 mg QAM PO 07/12/17 08:00 08/11/17 07:59 07/17/17 08:57 8.6 MG Polyethylene (Miralax Powder Packet) 17 gm DAILY PO 07/11/17 16:45 08/05/17 02:29 07/18/17 07:50 17 GM Raspberry (Raspberry Syrup 5ml Cup) 5 ml Q6H PO 07/12/17 17:00 07/26/17 16:59 07/20/17 17:27 5 ML Oxycodone HCl (Roxicodone Immediate Rel Tab) 10 mg Q4H PRN PO 07/14/17 09:15 08/05/17 08:59 07/20/17 16:51 10 MG Prednisone (PredniSONE TAB) 40 mg DAILY PO 07/15/17 08:00 08/05/17 08:59 07/20/17 08:30 40 MG Vancomycin HCl (Vancomycin Oral Soln) 125 mg Q6H PO 07/15/17 17:00 07/26/17 16:59 07/20/17 17:27 125 MG Simethicone (Mylicon Chew Tab) 80 mg Q6H PRN PO 07/17/17 23:15 08/16/17 23:14 Miscellaneous (Fentanyl Patch Remove & Waste) 1 ea Q3D@0859 N/A 07/22/17 08:59 08/21/17 08:58 Fentanyl (Duragesic Patch) 25 mcg Q3D@0900 TD 07/22/17 09:00 08/05/17 08:59 Ioversol (Optiray 320) 100 ml UD PRN IV 07/19/17 10:45 07/23/17 10:44 Levofloxacin (Consult) 1 ea UD PRN N/A 07/19/17 13:30 08/18/17 13:29 Levofloxacin (Levaquin Tab) 500 mg Q48H PO 07/21/17 16:00 07/28/17 15:59 Insulin Glargine (Lantus Solostar Pen) 6 units HS SC 07/20/17 21:00 08/19/17 20:59 Ergocalciferol (Vitamin D Cap) 50,000 interunit Q7D@0900 PO 07/20/17 09:00 08/19/17 08:59 07/20/17 09:32 50,000 INTERUNIT Cholecalciferol (Vitamin D Tab) 2,000 inter.unit QAM PO 07/21/17 08:00 08/20/17 07:59 Enteral Nutritional Formula (Boost) 1 can TID PO 07/20/17 14:00 08/19/17 13:59 07/20/17 14:56 1 CAN Ranitidine HCl (zANTac TAB) 150 mg DAILY PO 07/20/17 13:00 08/19/17 12:59 07/20/17 12:42 150 MG Methadone HCl (Dolophine Tab) 30 mg BID PO 07/20/17 20:00 07/28/17 09:29 Objective Vital Signs Date Time Temp Pulse Resp B/P (MAP) Pulse Ox O2 Delivery O2 Flow Rate FiO2 07/20/17 22:30 89 93/61 07/20/17 22:15 89 83/56 07/20/17 22:00 88 100/60 07/20/17 21:47 87 101/62 07/20/17 21:30 76 102/65 07/20/17 21:15 84 104/70 07/20/17 21:00 87 100/65 07/20/17 20:45 84 109/63 07/20/17 20:30 84 119/54 07/20/17 20:15 82 126/74 07/20/17 20:00 67 129/103 07/20/17 19:45 83 140/78 07/20/17 19:35 88 127/77 07/20/17 19:07 36.7 80 141/97 (112) 07/20/17 16:00 98 Nasal Cannula 4.0 07/20/17 15:40 36.3 85 18 149/76 (100) 98 Nasal Cannula 4.5 07/20/17 11:29 36.9 88 18 150/75 (100) 96 Nasal Cannula 5.0 07/20/17 08:00 Nasal Cannula 5.0 07/20/17 07:31 36.9 82 18 138/70 (92) 95 5.0 07/20/17 04:00 36.7 87 18 160/75 (103) 95 Nasal Cannula 4.0 07/20/17 00:10 Nasal Cannula 4.0 07/19/17 23:10 36.6 82 22 150/74 (99) 96 Nasal Cannula 4.0 Physical Exam General Appearance: WD/WN, no apparent distress Eyes: normal inspection, PERRL, EOMI ENT: hearing grossly normal Neck: supple, no carotid bruits, trachea midline Respiratory/Chest: chest non-tender, no accessory muscle use, + decreased breath sounds Cardiovascular: regular rate, rhythm, no edema, no gallop, no JVD, no murmur Abdomen: normal bowel sounds, soft, + tenderness (RLQ and LUQ), + mass ( hematoma in RLQ) Extremities: non-tender, normal inspection, no pedal edema Neurologic/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 ) Laboratory Results Last Resulted 07/20/17 04:53 Last Resulted 07/20/17 04:53 Assessment and Plan Mr. Christy is a 61 yo M with PMH ESRD on HD, RCC, DMII. Admitted for L hand cellulitis having failed outpatient management. Now with C.diff, neg urine/ blood cx, abdominal pain a/w rectus sheath hematoma, anemia, and bilateral pneumonia on imaging c/w likely WOUND CARE NURSE given hx vs. infectious process. Diarrhea - C.Diff - remains afebrile - C.diff positive - On oral vancomycin - day 9 - Considering multi-use of current abx, would recommend further 5-7 days of oral vanc after other abx are DCd - CT abdomen on admission - small right rectus sheath hematoma, no new lymphadenopathy, lesions of right kidney, unchanged from before - Stools now softly formed, less frequent, non-bloody Abdominal Pain - stable - H&H stable - secondary to rectus sheath hematoma - eating well with good appetite, denies n/v, wcc attributable to steroid, and palpable hematoma in direct region of pain is noted. appendicitis is in differential however is reassuring considering above Will continue to monitor for changes CT scan ordered by Dr. Bell today: healing hematoma, no evidence of ischemia or appendicitis - apply warm k-pad to the area for symptomatic relief - hold heparin for dvt prophylaxis and stop giving insulin injections in that area - New onset LUQ abdominal pain: ordered ranitidine 150 OD; may be related to colitis possibly related to chronic pain of malignancy Left hand cellulitis - improving - ID consulted. Recommendations: - IV vanc &zosyn discontinued - oral levaquin started with renal dosing x 14 days - possible reflex sympathetic dystrophy - consider neuro consult in the future +/- nerve conduction studies - MRI suggested cellulitis with myositis. No osteomyelitis, no abscess - warm compresses to help with pain - Recommend wound care on discharge SOB - bilateral PNA on imaging likely WOUND CARE NURSE given hx vs. infectious - new oxygen demand - on 4L and SOB without it - pulmonary consult - CT - Extensive groundglass opacity & multifocal consolidation since previous CT. Possible cryptogenic organizing pneumonia/drug related pneumonitis - increased prednisone from 10mg daily to 40mg daily. Will taper by 5 weekly - IV zosyn to include anaerobe coverage - levaquin commenced renal dosing x 14 days - Continue O2 supplementation to maintain SaO2 >92%, wean to 3L oxygen not attempted due to patient sats down to 88 on ambulation Encephalopathy - improved - Unclear whether toxic from narcotics vs. metabolic vs. other - Decreased Oxycodone from 20mg to 10mg QID PRN - Ammonia normal at 26.4, VBG w/o significant hypercarbia PCO2 - 50 - Consider head CT to rule out mets from RCC if worsens ESRD HD secondary to RCC/ s/p left nephrectomy - Nephrology Consulted - HD today- receives HD on Tuesdays, and Saturdays - appreciate oncology's input: - continue cabozantinib -> although does contain warning for GI perf and fistula - may repeat CT scan if he does not improve - in light of abdominal pain, cabozantinib held to see if abdo pain improves - next scans planned for July - hypocalcemia; Vit D level of 9.4 Chronic Pain - continue fentanyl - Dr. Jackson consulted. Recommendations - continue prn oxycodone - dose decreased to 10mg q4h prn in light of encephalopathy - pt was on increased dose of methadone at 20 mg BID since 06/20 - in the hospital, he has been on 10mg TID, will increase to previous regimen of 20mg BID - Recommends rehab at [facility] DMII - 7 units of Lantus with sliding scale - BSG AC HS Anemia - Hgb today stable 9.5; ferritin 1870 - nephrology -> continue epogen 43464 units and venofer 100mg - continue to monitor HTN/hyperlipidemia - continue asa 81 mg, furosemide 40 mg - continue hydralazine 100 mg tid, amlodipine 10 mg daily, metoprolol 150 mg bid and lisinopril 40 mg daily - continue simvastatin 20 mg daily - I&O and daily weights BPH - continue tamsulosin 0.4 mg CKD Bone Mineral Disease - Continue oral Calcitriol - Continue CaCO3 500 mg with meals DVT Prophylaxis: SCDs Code: Full Disposition: remains on med/onc. Awaiting confirmation on placement. May be able to DC tomorrow Resident Physician Supervision Note: I interviewed and examined the patient. Discussed with Dr. Pitt and agree with findings and plan as documented in the note. Any exceptions or clarifications are listed here: None Documented By: Jim Genao overall feeling about the same- abdominal pain is a bit worse today, and some upper. was given zantac as trial for gastritis - no change. no f/c/s. hand about the same. no new complaints. anticipates going to rehab once approved. vitals noted nad breathing unlabored no pallor or icterus. abd soft mild distention similar to previous, mild diffuse tenderness nothing focal no guarding/rebound/rigidity. L hand w ongoing tenderness at 4th MC no crepitis no fluctuance erythema and swelling going down well w compression a/p WOUND CARE NURSE - supportive care, O2, steroids, finishing abx for presumed overgrowth pneumonia hand cellulitis - with ongoing tenderness at 4th MC concerning - continue abx, if this persists without improvement even into tomorrow likely will MRI to r/o osteomyelitis. does not appear septic joint since no pain on ROM or pain at joint - just bone abdominal pain - small bowel enteritis now in addition to hematoma and feces, as well as possibly elements of Cdiff. Cdiff seems resolved enough that it would be odd for that to be a contributor (especially since it's typically a colitis process). chemo agent seems possible to cause this and has been held, oncology aware. already on abx that would cover well for bacterial translocation - continue. serial exams and supportive care. cdiff colitis - vanco seems overall stable, ongoing f/u for enteritis to improve before discharging to rehab otherwise as above Resident Tracking Resident Involvement: Resident Care Provided Care Provided: Adult [facility]
[2017-07-21] VITALS (36 sets, daily range): BP systolic 97–192; BP diastolic 56–144; PULSE 77–100; TEMP 36–36.7; O2SAT 90–100
[2017-07-21] MEDS: BOOST VANILLA PO SCH (00:14)
[2017-07-21] MEDS: METHADONE HCL 10 MG TAB PO SCH ×2 (00:16→08:00)
[2017-07-21] MEDS: SIMVASTATIN 20 MG TAB PO SCH (00:17)
[2017-07-21] MEDS: INSULIN ASPART 100 UNITS/ML 3 ML PEN SC SCH ×5 (00:18→20:54)
[2017-07-21] MEDS: VANCOMYCIN HCL 125 MG/2.5ML SOLN PO SCH ×2 (00:18→05:42)
[2017-07-21] MEDS: CHECK FENTANYL PATCH PLACEMENT SCH ×3 (00:18→16:00)
[2017-07-21] MEDS: RASPBERRY SYRUP 5 ML UDP PO SCH ×2 (00:18→05:43)
[2017-07-21] MEDS: TAMSULOSIN HCL 0.4 MG CAP PO SCH (00:19)
[2017-07-21] MEDS: LACTOBACILLUS ACIDOPHILUS (FLORANEX) TAB PO SCH ×4 (00:20→20:47)
[2017-07-21] MEDS: METOPROLOL TARTRATE 100 MG TAB PO SCH (01:25)
[2017-07-21] MEDS: INSULIN GLARGINE SOLOSTAR 100 UNITS/ML 3 ML PEN SC SCH ×2 (01:25→21:00)
[2017-07-21 05:51] LABS: HEMATOCRIT 25.5 % (42-52); HEMOGLOBIN 7.9 g/dL (14.0-18.0); MEAN CELL VOLUME 96.2 fL (80-100); MEAN CORPUSCULAR HEMOGLOBIN 29.8 pg (25-34); MEAN PLATELET VOLUME 10.6 fL (7.4-10.4); NUCLEATED RED BLOOD CELL ABS 0.77 K/uL (0-0); PLATELET COUNT 149 K/uL (130-400); RED CELL DISTRIBUTION WIDTH CV 25.6 % (11.5-14.5); RED CELL DISTRIBUTION WIDTH SD 85.7 fL (36.4-46.3); WHITE BLOOD COUNT 10.85 K/uL (4.8-10.8)
[2017-07-21 06:32] LABS: ALBUMIN 1.1 gm/dl (3.4-5.0); CALCIUM 8.2 mg/dl (8.5-10.1); CREATININE 2.95 mg/dl (0.60-1.40); POTASSIUM 4.7 mmol/L (3.5-5.1)
--- NOTE | 2017-07-21 07:37 | DIAGNOSTIC IMAGING REPORT ---
CHEST ONE VIEW PORTABLE CLINICAL HISTORY: Follow-up infiltrate. COMPARISON STUDY: Chest CT July 14, 2017. FINDINGS: A right internal jugular [id number] is in place. Extensive right infrahilar opacity persists. There is no pneumothorax. There is apparent lucency under the right hemidiaphragm. There is no lucency under the left hemidiaphragm. Cardiomediastinal silhouette is stable. IMPRESSION: 1. Apparent lucency under the right hemidiaphragm. This appears to reflect pneumoperitoneum however could be artifactual. This could be correlated with abdominal pain. A CT of the abdomen and pelvis could be obtained. 2. Persistent right infrahilar opacity which could reflect atelectasis or consolidation. Electronically signed by: Lei Gan M.D. 07/21/2017 7:35 AM Dictated Date/Time: 07/21/2017 7:28 AM
[2017-07-21] MEDS ORDERED: VANCOMYCIN CONSULT ACTIVE PRN ×2 (08:00→16:00)
[2017-07-21] MEDS ORDERED: PIPERACILL/TAZOBAC IV 3.375 GM in DEXTROSE 5% 100ML 100 ML IV ONE (08:00)
[2017-07-21] MEDS ORDERED: CHOLECALCIFEROL 1000 INTER.UNIT TAB PO SCH (08:00)
[2017-07-21] MEDS: LISINOPRIL 40 MG TAB PO SCH (08:00)
[2017-07-21] MEDS ORDERED: VANCOMYCIN INJ 1,750 MG in SODIUM CHLORIDE 0.9% 500ML 500 ML IV ONE ×2 (08:00→16:30)
[2017-07-21] MEDS ORDERED: PIPERACILL/TAZOBAC CONSULT ACTIVE PRN (08:00)
--- NOTE | 2017-07-21 08:19 | DIAGNOSTIC IMAGING REPORT ---
ABDOMEN AND PELVIS CT WITHOUT CONTRAST CT DOSE: 505.16 mGy.cm HISTORY: Generalized abdominal pain. free air on cxr TECHNIQUE: Multiaxial CT images of the abdomen and pelvis were performed without contrast. A dose lowering technique was utilized adhering to the principles of ALARA. COMPARISON STUDY: Abdomen and pelvis CT 07/12/1717. FINDINGS: Moderate right and small left pleural effusions have increased in size. Groundglass airspace opacities within the lung bases have progressed. This may represent worsening pulmonary edema or a pneumonia. Consolidation within the bilateral lower lobes posteriorly are nonspecific but favor compressive atelectasis from the pleural effusions. A few scattered groundglass nodules within the lung bases. The largest in the right lower lobe measures 11 mm on image 35. Prior sigmoid anastomosis. Multiple colonic diverticula. Contrast within the colon from the prior CT examination. Hyperdense material within the gallbladder suggestive of inspissated secretions. The unenhanced liver, pancreas, spleen, and adrenal glands are unremarkable. The left kidney is surgically absent. Stable right renal lesions. Dominant lesion within the lower pole measures 3.5 cm. This is incompletely characterize on this noncontrast study but favors a hyperdense cyst. There is residual contrast within the right renal parenchyma and collecting system. No hydronephrosis. Moderate bladder wall thickening. A few enlarged aortocaval lymph nodes. Dominant lymph node measures 2.1 x 1.5 cm. There is also an enlarged left retrocrural lymph node. There is a small amount of ascites seen predominantly within the upper abdomen surrounding the spleen. Moderate body wall edema. No suspicious lytic or blastic osseous lesions. Moderate pneumoperitoneum. Multiple thickened loops of small bowel seen within the left side of the abdomen. There is also focal area of thickening within the distal transverse colon. There are multiple colonic diverticula at this location as well as adjacent extraperitoneal gas. Therefore, this likely represents the site of perforation consistent with acute diverticulitis. This could also be due to a perforated jejunal diverticulum. No dilated loops of bowel to suggest an obstruction. The visualized appendix is unremarkable. Question wall mild gallbladder wall thickening. Small right rectus sheath hematoma again noted. IMPRESSION: 1. Moderate pneumoperitoneum and a small amount of ascites has developed in the interval. This is consistent with bowel perforation. Multiple thickened loops of small bowel within the left side of the abdomen as well as thickening of the distal transverse colon with adjacent sites of extraperitoneal gas. Therefore, this area represents the site of perforation and could be due to a perforated distal transverse colon or jejunal diverticulum in the setting of acute diverticulitis. 2. Moderate right and small left pleural effusions have progressed. There is also progressive round glass and nodular density within the lung bases. This may represent worsening pulmonary edema or an atypical pneumonia. Follow-up is recommended to ensure resolution of the nodular densities. 3. A few enlarged retroperitoneal/left retrocrural lymph nodes are again noted. 4. Left nephrectomy. 5. Questionable mild gallbladder wall thickening. 6. Additional findings as described above. 7. Findings discussed with Dr. Ibrahim at 8:22 AM on 07/21/2017. Electronically signed by: Harris Cordova M.D. 07/21/2017 8:22 AM Dictated Date/Time: 07/21/2017 8:00 AM
[2017-07-21] MEDS ORDERED: MIDAZOLAM HCL 1 MG/ML 2ML VIAL ONE (09:14)
[2017-07-21] MEDS ORDERED: FENTANYL CITRATE INJ 50 MCG/1 ML 2 ML VIAL ONE ×2 (09:15→11:46)
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
--- NOTE | 2017-07-21 11:18 | Nephrology Progress Note ---
Nephrology Progress Note Date of Service Jul 21, 2017. Chief Complaint Provide inpatient HD and assist w/ medical management of this patient w/ ESRD Subjective Mr. Christy was seen and examined in his hospital room this am. Case discussed w / hospital resident and surgical attending. Mr. Christy was found to have free air on his CXR this am. Abdominal CT shows diverticuli involving the transverse colon as the potential source of perforation. Mr. Christy is scheduled for abdominal exploration later this morning. Review of Systems Constitutional: No fever Cardiovascular: No chest pain Respiratory: No dyspnea at rest Abdomen: + pain Extremities: No leg edema A complete review of systems was performed. Pertinent positives are noted above. All other systems are negative. Vital Signs Last 8 Hrs Date Time Temp Pulse Resp B/P (MAP) Pulse Ox O2 Delivery O2 Flow Rate FiO2 07/21/17 08:00 97 Nasal Cannula 4.0 07/21/17 07:15 36.7 82 20 128/72 (90) 97 Nasal Cannula 4.0 07/21/17 04:30 36.1 83 16 138/69 (92) 97 Nasal Cannula 5.0 Humidified Oxygen Last Recorded Weight Weight (Kilograms): 83.400 Physical Exam General Appearance: + mild distress Head: atraumatic, + pertinent finding (cushingoid appearing) Eyes: PERRL, EOMI Neck: no adenopathy Respiratory/Chest: lungs clear, no respiratory distress Cardiovascular: regular rate, rhythm Abdomen/GI: normal bowel sounds, + pertinent finding (mildly tender to deep palpation in all 4 quadrants. No guarding) Extremities/Musculoskelatal: no pedal edema, + pertinent finding (L arm AVF + bruit) Neurologic/Psych: alert, oriented x 3 Family History Cervical cancer Diabetes mellitus Heart disease Hypertension Myocardial infarction Pancreatic cancer Prostate cancer Negative for CKD/ESRD Social History Smokeless Tobacco Use: No Alcohol Use: none Drug Use: none Marital Status: single Housing Status: lives alone Occupation: disabled Single, retired. Formerly worked for [employer] Never a smoker. Laboratory Results Past 24 Hours 07/21/17 05:21 07/21/17 05:21 Test 07/20/17 12:00 07/20/17 16:47 07/20/17 19:55 07/21/17 00:30 Bedside Glucose 169 mg/dl (70-99) 120 mg/dl (70-99) 138 mg/dl (70-99) 92 mg/dl (70-99) Test 07/21/17 05:21 07/21/17 07:56 Red Blood Count 2.65 M/uL (4.7-6.1) Mean Corpuscular Volume 96.2 fL (80-100) Mean Corpuscular Hemoglobin 29.8 pg (25-34) Mean Corpuscular Hemoglobin Concent 31.0 g/dl (32-36) RDW Standard Deviation 85.7 fL (36.4-46.3) RDW Coefficient of Variation 25.6 % (11.5-14.5) Mean Platelet Volume 10.6 fL (7.4-10.4) Nucleated RBC Absolute Count (auto) 0.77 K/uL (0-0) Nucleated Red Blood Cells % 7.1 % Anion Gap 3.0 mmol/L (3-11) Est Creatinine Clear Calc Drug Dose 26.5 ml/min Estimated GFR () 25.0 Estimated GFR (Non- 21.6 BUN/Creatinine Ratio 8.8 (10-20) Calcium Level 8.2 mg/dl (8.5-10.1) Total Bilirubin 0.2 mg/dl (0.2-1) Aspartate Amino Transf (AST/SGOT) 31 U/L (15-37) Alanine Aminotransferase (ALT/SGPT) 33 U/L (12-78) Alkaline Phosphatase 71 U/L (45-117) Total Protein 4.0 gm/dl (6.4-8.2) Albumin 1.1 gm/dl (3.4-5.0) Globulin 2.9 gm/dl (2.5-4.0) Albumin/Globulin Ratio 0.4 (0.9-2) Bedside Glucose 115 mg/dl (70-99) Allergies Coded Allergies: Iodinated Diagnostic Agents (Verified Allergy, Unknown, oil based, severe headaches, 06/20/17) EVENT OCCURED IN 1971, PT STATES HE HAS HAD 3 DIFFERENT WATER BASED IVP DYES WITH NO ISSUE Medications Current Inpatient Medications Medications (Trade) Dose Ordered Sig/Edward Route Start Time Stop Time Status Last Admin Dose Admin Acetaminophen (Tylenol Tab) 650 mg Q4H PRN PO 07/05/17 21:45 08/04/17 21:44 07/20/17 15:28 650 MG Amlodipine Besylate (Norvasc Tab) 10 mg QAM PO 07/06/17 09:00 08/05/17 08:59 07/20/17 09:32 10 MG Aspirin (Ecotrin Tab) 81 mg QAM PO 07/06/17 09:00 08/05/17 08:59 07/20/17 08:28 81 MG Calcitriol (Rocaltrol Cap) 0.25 mcg Q2D PO 07/06/17 09:00 08/05/17 08:59 07/20/17 08:31 0.25 MCG Furosemide (Lasix Tab) 40 mg QAM PO 07/06/17 09:00 08/05/17 08:59 07/20/17 09:31 40 MG Hydralazine HCl (Apresoline Tab) 100 mg TID PO 07/06/17 09:00 08/05/17 08:59 07/20/17 09:30 100 MG Lactobacillus Acidophilus (Floranex Tab) 2 tab TID PO 07/06/17 09:00 08/05/17 08:59 07/21/17 00:20 2 TAB Lisinopril (Zestril Tab) 40 mg DAILY PO 07/06/17 09:00 08/05/17 08:59 07/20/17 09:32 40 MG Metoprolol Tartrate (Lopressor Tab) 150 mg BID PO 07/06/17 09:00 08/05/17 08:59 07/20/17 09:33 150 MG Simvastatin (Zocor Tab) 20 mg QPM PO 07/06/17 21:00 08/05/17 20:59 07/21/17 00:17 20 MG Tamsulosin HCl (Flomax Cap) 0.4 mg HS PO 07/06/17 21:00 08/05/17 20:59 07/21/17 00:19 0.4 MG Insulin Aspart (novoLOG ASPART) SLIDING SCALE G... ACHS SC 07/06/17 07:00 08/05/17 06:59 07/20/17 12:46 2 UNITS Miscellaneous Information (Check Fentanyl Patch Placement) 1 ea QS N/A 07/06/17 08:00 08/05/17 07:59 07/21/17 00:18 1 EA Glucose (Glucose 40% Gel) 15-30 GRAMS 15 GRAMS... UD PRN PO 07/06/17 04:15 08/05/17 04:14 Glucose (Glucose Chew Tab) 4-8 Tablets 4 Tabl... UD PRN PO 07/06/17 04:15 08/05/17 04:14 Dextrose (Dextrose 50% 50ML Syringe) 25-50ML OF 50% DW IV FOR... UD PRN IV 07/06/17 04:15 08/05/17 04:14 07/06/17 05:40 25 ML Glucagon (Glucagon Inj) 1 mg UD PRN SQ 07/06/17 04:15 08/05/17 04:14 Heparin Sodium (Porcine) (Heparin 100 Unit/ml 5ml Flush) 5 ml PRN PRN IV 07/07/17 02:45 08/06/17 02:44 Future hold 07/21/17 05:21 5 ML Calcium Carbonate (Tums Chew Tab) 500 mg TIDM PO 07/07/17 17:00 08/05/17 08:59 07/20/17 17:27 500 MG Ondansetron HCl (Zofran Inj) 4 mg Q4H PRN IV 07/11/17 03:00 08/10/17 02:59 07/17/17 21:50 4 MG Ondansetron HCl (Zofran Tab) 4 mg Q6H PRN PO 07/11/17 10:15 08/10/17 10:14 Prochlorperazine Edisylate 5 mg/ Syringe 5 ml @ 5 mls/min Q4H PRN IV 07/11/17 14:00 08/10/17 13:59 Lactulose (Chronulac Syrup) 30 gm Q4H PRN PO 07/11/17 16:45 08/10/17 16:44 Senna (Senokot Tab) 8.6 mg QAM PO 07/12/17 08:00 08/11/17 07:59 07/17/17 08:57 8.6 MG Polyethylene (Miralax Powder Packet) 17 gm DAILY PO 07/11/17 16:45 08/05/17 02:29 07/18/17 07:50 17 GM Raspberry (Raspberry Syrup 5ml Cup) 5 ml Q6H PO 07/12/17 17:00 07/26/17 16:59 07/21/17 05:43 5 ML Oxycodone HCl (Roxicodone Immediate Rel Tab) 10 mg Q4H PRN PO 07/14/17 09:15 08/05/17 08:59 07/20/17 16:51 10 MG Prednisone (PredniSONE TAB) 40 mg DAILY PO 07/15/17 08:00 08/05/17 08:59 07/20/17 08:30 40 MG Vancomycin HCl (Vancomycin Oral Soln) 125 mg Q6H PO 07/15/17 17:00 07/26/17 16:59 07/21/17 05:42 125 MG Simethicone (Mylicon Chew Tab) 80 mg Q6H PRN PO 07/17/17 23:15 08/16/17 23:14 Miscellaneous (Fentanyl Patch Remove & Waste) 1 ea Q3D@0859 N/A 07/22/17 08:59 08/21/17 08:58 Fentanyl (Duragesic Patch) 25 mcg Q3D@0900 TD 07/22/17 09:00 08/05/17 08:59 Ioversol (Optiray 320) 100 ml UD PRN IV 07/19/17 10:45 07/23/17 10:44 Levofloxacin (Consult) 1 ea UD PRN N/A 07/19/17 13:30 08/18/17 13:29 Insulin Glargine (Lantus Solostar Pen) 6 units HS SC 07/20/17 21:00 08/19/17 20:59 Ergocalciferol (Vitamin D Cap) 50,000 interunit Q7D@0900 PO 07/20/17 09:00 08/19/17 08:59 07/20/17 09:32 50,000 INTERUNIT Cholecalciferol (Vitamin D Tab) 2,000 inter.unit QAM PO 07/21/17 08:00 08/20/17 07:59 Enteral Nutritional Formula (Boost) 1 can TID PO 07/20/17 14:00 08/19/17 13:59 07/21/17 00:14 1 CAN Ranitidine HCl (zANTac TAB) 150 mg DAILY PO 07/20/17 13:00 08/19/17 12:59 07/20/17 12:42 150 MG Methadone HCl (Dolophine Tab) 30 mg BID PO 07/20/17 20:00 07/28/17 09:29 07/21/17 00:16 30 MG Vancomycin HCl (Consult) 1 ea UD PRN N/A 07/21/17 08:00 08/20/17 07:59 Piperacillin Sod/ Tazobactam Sod (Consult) 1 ea UD PRN N/A 07/21/17 08:00 08/20/17 07:59 Piperacillin Sod/ Tazobactam Sod 3.375 gm/Dextrose 115 ml @ 28.75 mls/ hr Q12H IV 07/21/17 20:00 07/31/17 19:59 Impression (1) Cellulitis of left hand (2) ESRD (end stage renal disease) on dialysis (3) Renal cell carcinoma (4) Anemia (5) Diabetes type 2, controlled Mr. Christy is a 61-year-old male with ESRD and metastatic RCC. He underwent left nephrectomy in 2016. He is maintained on Cabometyx. Mr. Christy did not tolerate Sutent due to high grade proteinuria, Opdivo caused arthralgia, colitis and possible pneumonitis. He has been maintained on prednisone for possible [employer]. Mr. Christy was admitted with persistent soft tissue infection of the left hand. This improved with antibiotics. He now has a possible evolving pneumonia. Current antibiotics include Zosyn and Vancomycin. Mr. Christy developed abdominal pain associated with an abdominal wall hematoma. Stool was checked for C diff and he is on treatment for this as well. Recommendations END STAGE RENAL DISEASE: -- HD tomorrow (heparin free due to surgery). Orders entered into EMR and HD RN notified ANEMIA: -- Will provide IDALIA w/ HD treatments -- Recommend transfusing 1 u PRBC today. Can transfuse 2nd unit PRBC w/ HD tomorrow if needed HYPERTENSION: -- Blood pressure is currently well controlled. Continue current antihypertensive regimen. No change at present. RENAL CELL CA: -- Cabozantinib held due to small intestinal inflammation. 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
[2017-07-21] MEDS ORDERED: ONDANSETRON INJ 2 MG/ML 2 ML VIAL IV PRN (11:45)
[2017-07-21] MEDS ORDERED: EpHEDrine SULFATE INJ 50 MG/ML AMP IV PRN (11:45)
[2017-07-21] MEDS ORDERED: ATROPINE SULFATE 0.1 MG/ML 5ML SYR IV PRN (11:45)
[2017-07-21] MEDS ORDERED: SUCCINYLCHOLINE CHLORIDE 20 MG/ML 10 ML VIAL IV ONE (12:04)
[2017-07-21] MEDS ORDERED: LIDOCAINE HCL 2% 2 ML VIAL (20MG/ML) ONE (12:04)
[2017-07-21] MEDS ORDERED: ROCURONIUM BROMIDE 10 MG/ML 5 ML VIAL IV ONE (12:04)
[2017-07-21] MEDS ORDERED: PROPOFOL IV EMULSION 10 MG/ML 20 ML VIAL IV ONE (12:04)
[2017-07-21] MEDS ORDERED: GLYCOPYRROLATE INJ 0.2 MG/ML VIAL ONE (12:19)
[2017-07-21] MEDS ORDERED: ONDANSETRON INJ 2 MG/ML 2 ML VIAL ONE (12:19)
[2017-07-21] MEDS ORDERED: NEOSTIGMINE METHYLSULFATE 5 MG/5 ML SYR ONE (12:19)
--- NOTE | 2017-07-21 13:36 | [facility] Post Operative Brief Note ---
Immediate Operative Summary Operative Date Jul 21, 2017. Pre-Operative Diagnosis Perforated viscus. Post-Operative Diagnosis Perforated jejunal diverticulum. Procedure(s) Performed Exploratory laparotomy, partial small bowel resection. Surgeon Dr. Angela Zelaya Circular Saw Operator Surgeon(s) CHRISTEN Euceda Estimated Blood Loss 20 ml Findings multiple jejunal diverticulae with large mid jejunal diverticulum with perforation small hernia at prior colostomy site Fluids (cc crystalloids) 500 cc crystalloid, 310 cc prbc (1 unit) Specimens A: Jejunum 1: Peritoneal fluid for routine culture and sensitivity, aerobic, anaerobic, gram stain. Drains none Anesthesia GET Complication(s) None Disposition Surgical ICU
--- NOTE | 2017-07-21 14:11 | OPERATIVE REPORT ---
DATE OF OPERATION: 07/21/2017 PREOPERATIVE DIAGNOSIS: Perforated viscus. POSTOPERATIVE DIAGNOSIS: Perforated jejunal diverticulum. OPERATIVE PROCEDURE: Exploratory laparotomy, partial small bowel resection with primary anastomosis. ANESTHESIA: General endotracheal anesthesia. SURGEON: Dr. Angela Zelaya. METAL FABRICATING INSPECTOR: CHRISTEN Euceda. ESTIMATED BLOOD LOSS: 20 mL. IV FLUIDS: 500 mL crystalloid, 310 mL PRBCs (1 unit). DRAINS: None. SPECIMENS: Jejunum and peritoneal fluid culture. COMPLICATIONS: None. OPERATIVE FINDINGS: Multiple adhesions of omentum to midline incision and adhesions of small bowel into pelvis, multiple jejunal diverticula with a large diverticulum in mid jejunum which had evidence of perforation. INDICATIONS: Mr. Christy is a 61-year-old man with a renal cell cancer who is status post nephrectomy, partial colectomy with ostomy and subsequent ostomy takedown, who was admitted to the hospital for C. diff colitis and left hand cellulitis and then on starting of recent chemotherapy, he developed abdominal pain, this was believed to be secondary to some jejunal inflammation on CT and then he subsequently developed worsening abdominal pain and imaging showed evidence of a moderate pneumoperitoneum, suggestive of bowel perforation. His medication Cabometyx had been held yesterday when he developed abdominal pain due to its association with GI perforation. He was seen and counseled regarding the need for exploratory laparotomy. He consented to proceed. DESCRIPTION OF THE PROCEDURE: The patient received Zosyn preoperatively. After the induction of general endotracheal anesthesia, he had placement of sequential compression devices and a Clark catheter. Anesthesia also placed a femoral arterial line after failed attempts at placing of right upper extremity arterial line as well as a left internal jugular triple lumen catheter. His abdomen was sterilely prepped and draped. A midline incision was made starting just below the xiphoid where there was no prior incision that extending to below the umbilicus and the abdomen was entered just below the xiphoid and so this was then carried down. Adhesions to the midline were taken down and then the midline sequentially opened, adhesions of omentum to both lateral side perez were taken down. There was evidence of a hernia at his prior left-sided ostomy site, this was reduced and the fascia repaired with 0 PDS sutures. There were multiple adhesions of bowel to each other and to the pelvis, this was all carefully and tediously taken down. There was no bowel injury created. Exploration revealed a mid jejunal perforated diverticulum. There was not gross contamination of fluid, although there was cloudy ascites and bowel clamps were placed proximally and distally. The jejunum was then divided with firings of the DICK 60 blue load stapler. The jejunal mesentery was taken with Vicryl ties and the jejunum passed off. There were multiple other jejunal diverticula and the specimen encompassed all diverticula noted, measuring about 8 inches total. The bowel was then brought together with interrupted silk stitches. A [id number] functional end-to-end anastomosis was then created by firing the DICK 60 stapler through 2 small enterotomies. I felt that this anastomosis was too short and thus a second DICK was also used to extend the anastomosis. This was inspected and noted to have no evidence of bleeding. A TA 45 stapler was used to close the enterotomy defect, silk sutures were used to repair the mesenteric defect as well as take any tension off the anastomosis. The anastomosis was noted to be patent with no evidence of leakage. The abdomen was irrigated and suctioned until the effluent was clear. A wound culture had been taken prior to this. The omentum had multiple holes within it, these were divided so as to avoid any internal hernias and then the omentum laid back for the bowel. The fascia was then closed with 2 running #1 PDS sutures. The skin was loosely closed with mario after irrigation and sterile dressings were applied. He was awakened and was taken intubated to the intensive care unit in stable condition. I attest to the content of the Intraoperative Record and any orders documented therein. Any exceptions are noted below. TALIA
[2017-07-21] MEDS: FENTANYL CITRATE INJ 50 MCG/1 ML 2 ML VIAL IV PRN ×4 (14:18→21:01)
--- NOTE | 2017-07-21 14:21 | DIAGNOSTIC IMAGING REPORT ---
CHEST ONE VIEW PORTABLE HISTORY: central line placement COMPARISON: Chest 07/21/2017. FINDINGS: The pneumoperitoneum has improved. Right jugular Port-A-Cath terminates in the proximal SVC. A left jugular central venous catheter terminates in the brachiocephalic/SVC junction. No pneumothorax. The heart remains mildly enlarged. Small bilateral pleural effusions and bilateral perihilar hazy airspace opacities have progressed. This likely represents worsening pulmonary edema. Nasogastric tube terminates in the stomach. There is midline abdominal wall skin mario present consistent with recent postoperative change. IMPRESSION: 1. Satisfactory support line placement. No pneumothorax. 2. Progressive moderate pulmonary edema with small bilateral pleural effusions. 3. Pneumoperitoneum has improved. This may be postoperative. Electronically signed by: Harris Cordova M.D. 07/21/2017 2:19 PM Dictated Date/Time: 07/21/2017 2:17 PM
[2017-07-21] MEDS: HYDROmorphone INJ 1 MG/ML SYR IV PRN ×2 (15:00→15:10)
--- NOTE | 2017-07-21 15:28 | Anesthesiology Progress Note ---
Anesthesia Post Op Note Date & Time Jul 21, 2017 at 15:26 Vital Signs Pain Intensity: 4 Vital Signs Past 12 Hours Date Time Temp Pulse Resp B/P (MAP) Pulse Ox O2 Delivery O2 Flow Rate FiO2 07/21/17 15:15 36.1 76 18 125/63 98 Oxymask 10 07/21/17 15:05 74 18 119/66 98 Oxymask 10 07/21/17 14:55 74 18 125/65 98 Oxymask 10 07/21/17 14:45 76 18 130/72 98 Oxymask 10 07/21/17 14:35 36.1 75 18 128/68 98 Oxymask 10 07/21/17 14:25 75 18 126/75 98 Oxymask 10 07/21/17 14:15 73 18 117/64 98 Oxymask 10 07/21/17 14:05 78 18 125/61 98 Oxymask 10 07/21/17 13:56 36.0 79 18 125/65 100 Oxymask 10 07/21/17 08:00 97 Nasal Cannula 4.0 07/21/17 07:15 36.7 82 20 128/72 (90) 97 Nasal Cannula 4.0 07/21/17 04:30 36.1 83 16 138/69 (92) 97 Nasal Cannula 5.0 Humidified Oxygen Notes Mental Status: alert / awake / arousable, participated in evaluation Pt Amnestic to Procedure: Yes Nausea / Vomiting: adequately controlled Pain: adequately controlled Airway Patency, RR, SpO2: stable & adequate BP & HR: stable & adequate Hydration State: stable & adequate Anesthetic Complications: no major complications apparent Case was completed with minimal hemodynamic insult. No significant spillage of bowel contents noted by surgeon and patient not displaying septic pathology. He was weaned and extubated awake in the OR. As planned preoperatively, given his major medical comorbidities and the nature of his surgery, he will be watched in the ICU post operatively. I have given full report to the ICU doctor and physician chef's assistant.
--- NOTE | 2017-07-21 15:51 | Pharmacy Progress Note ---
Pharmacy Abx Dose Short Note Date of Service Jul 21, 2017. Assessment & Plan Assessment 61 year old male receiving vancomycin for treatment of hand cellulitis concerning for osteomyelitis Day # 1 of antimicrobial therapy. (previously received 9 days of IV vancomycin and several weeks of daptomycin - missed one day of therapy after dialysis as medication was discontinued) Plan Vancomycin * Load patient with vancomycin 1750 mg IV x 1 (scheduled for dialysis tomorrow) * Goal random level for osteomyelitis : 15 to 20 mcg/mL * Random level ordered for: 07/22/17 with AM labs Pharmacy will continue to follow and will adjust dose/frequency as necessary. Thank you.
[2017-07-21] MEDS ORDERED: LEVOFLOXACIN 500 MG TAB PO SCH (16:00)
[2017-07-21] MEDS ORDERED: TPN/PPN CONSULT PHARMACY PRN ×2 (17:00)
--- NOTE | 2017-07-21 17:10 | Family Medicine Progress Note ---
Progress Note Date of Service Jul 21, 2017. Subjective Pt evaluation today including: conversation w/ patient, conversation w/ family , physical exam, chart review, lab review, review of studies, review of inpatient medication list Pain: patient continues to report LUQ pain and RLQ pain PO Intake: tolerating well Voiding: no voiding problems Patient declines any acute changes in symptoms on visit early this morning. Constitutional: + fatigue Respiratory: + shortness of breath, + dyspnea on exertion Abdomen: + pain, No nausea, No vomiting, No diarrhea, No constipation, No GI bleeding, No problem reported Musculoskeletal: + joint pain (4th MCP of left hand), + muscle pain, + swelling All Other Systems: Reviewed and Negative Medications Current Inpatient Medications Medications (Trade) Dose Ordered Sig/Edward Route Start Time Stop Time Status Last Admin Dose Admin Lactobacillus Acidophilus (Floranex Tab) 2 tab TID PO 07/06/17 09:00 08/05/17 08:59 07/21/17 00:20 2 TAB Lisinopril (Zestril Tab) 40 mg DAILY PO 07/06/17 09:00 08/05/17 08:59 07/20/17 09:32 40 MG Insulin Aspart (novoLOG ASPART) SLIDING SCALE G... ACHS SC 07/06/17 07:00 08/05/17 06:59 07/20/17 12:46 2 UNITS Miscellaneous Information (Check Fentanyl Patch Placement) 1 ea QS N/A 07/06/17 08:00 08/05/17 07:59 07/21/17 16:00 1 EA Glucose (Glucose 40% Gel) 15-30 GRAMS 15 GRAMS... UD PRN PO 07/06/17 04:15 08/05/17 04:14 Glucose (Glucose Chew Tab) 4-8 Tablets 4 Tabl... UD PRN PO 07/06/17 04:15 08/05/17 04:14 Dextrose (Dextrose 50% 50ML Syringe) 25-50ML OF 50% DW IV FOR... UD PRN IV 07/06/17 04:15 08/05/17 04:14 07/06/17 05:40 25 ML Glucagon (Glucagon Inj) 1 mg UD PRN SQ 07/06/17 04:15 08/05/17 04:14 Heparin Sodium (Porcine) (Heparin 100 Unit/ml 5ml Flush) 5 ml PRN PRN IV 07/07/17 02:45 08/06/17 02:44 Future hold 07/21/17 05:21 5 ML Ondansetron HCl (Zofran Inj) 4 mg Q4H PRN IV 07/11/17 03:00 08/10/17 02:59 07/17/17 21:50 4 MG Prochlorperazine Edisylate 5 mg/ Syringe 5 ml @ 5 mls/min Q4H PRN IV 07/11/17 14:00 08/10/17 13:59 Lactulose (Chronulac Syrup) 30 gm Q4H PRN PO 07/11/17 16:45 08/10/17 16:44 Miscellaneous (Fentanyl Patch Remove & Waste) 1 ea Q3D@0859 N/A 07/22/17 08:59 08/21/17 08:58 Fentanyl (Duragesic Patch) 25 mcg Q3D@0900 TD 07/22/17 09:00 08/05/17 08:59 Ioversol (Optiray 320) 100 ml UD PRN IV 07/19/17 10:45 07/23/17 10:44 Insulin Glargine (Lantus Solostar Pen) 6 units HS SC 07/20/17 21:00 08/19/17 20:59 Ergocalciferol (Vitamin D Cap) 50,000 interunit Q7D@0900 PO 07/20/17 09:00 08/19/17 08:59 07/20/17 09:32 50,000 INTERUNIT Piperacillin Sod/ Tazobactam Sod (Consult) 1 ea UD PRN N/A 07/21/17 08:00 08/20/17 07:59 Piperacillin Sod/ Tazobactam Sod 3.375 gm/Dextrose 115 ml @ 28.75 mls/ hr Q12H IV 07/21/17 20:00 07/31/17 19:59 07/21/17 20:38 28.75 MLS/HR Epoetin Mohsen (Procrit Inj) 10,000 units TODAY@0600 IV. 07/22/17 06:00 07/22/17 23:59 Heparin Sodium (Porcine) (No Heparin In Dialysis) 1 ea TODAY@0600 N/A 07/22/17 06:00 07/22/17 23:59 Vancomycin HCl (Consult) 1 ea UD PRN N/A 07/21/17 16:00 08/20/17 15:59 Miscellaneous Information (Pharmacy Tpn/ Ppn Consult Active) 1 ea UD PRN N/A 07/21/17 17:00 08/20/17 16:59 Hydralazine HCl (HydrALAZINE INJ) 5 mg Q4 PRN IV. 07/21/17 17:15 08/20/17 17:14 Furosemide 20 mg/ Syringe 2 ml @ 4 mls/min QAM IV 07/22/17 09:00 08/21/17 08:59 Hydralazine HCl (HydrALAZINE INJ) 5 mg TID IV. 07/21/17 21:00 08/20/17 20:59 07/21/17 20:49 5 MG Metoprolol Tartrate (Lopressor Iv) 2.5 mg Q6 IV. 07/21/17 18:00 08/20/17 17:59 07/21/17 20:39 2.5 MG Methylprednisolone Sodium Succinate 40 mg/Syringe 0.64 ml @ 1.5 mls/min DAILY IV 07/22/17 09:00 08/21/17 08:59 Fentanyl Citrate (Fentanyl Inj) Fentanyl 25-50 mcg... Q4H PRN IV 07/21/17 20:45 08/04/17 20:44 07/21/17 20:43 50 MCG Objective Vital Signs Date Time Temp Pulse Resp B/P (MAP) Pulse Ox O2 Delivery O2 Flow Rate FiO2 07/21/17 20:39 86 139/62 07/21/17 18:35 81 22 118/61 (73) 129/59 07/21/17 18:30 82 18 110/60 (84) 91 128/58 07/21/17 18:25 81 16 123/63 (85) 92 131/59 07/21/17 18:20 80 16 106/67 (85) 93 131/58 07/21/17 18:15 82 18 113/63 (86) 94 131/58 07/21/17 18:10 80 18 119/61 (85) 91 131/59 07/21/17 18:05 80 17 118/61 (84) 93 129/57 07/21/17 18:00 80 17 120/69 (84) 92 128/57 07/21/17 17:55 79 20 97/59 (79) 93 121/56 07/21/17 17:50 78 16 121/61 (82) 95 125/58 07/21/17 17:45 78 17 124/65 (87) 92 131/60 07/21/17 17:40 78 16 111/60 (71) 128/59 07/21/17 17:35 82 18 129/66 (93) 98 143/63 07/21/17 17:30 79 15 117/69 (93) 96 143/62 07/21/17 17:25 79 19 126/64 (90) 97 138/61 07/21/17 17:20 81 17 125/65 (91) 96 139/62 07/21/17 17:15 81 17 120/63 (171) 100 192/144 07/21/17 17:10 77 17 123/65 (87) 94 131/60 07/21/17 17:05 80 14 117/63 (87) 98 130/62 07/21/17 17:00 79 22 118/60 (86) 95 128/61 07/21/17 17:00 94 Oxymask 10.0 07/21/17 17:00 36.0 83 22 119/64 (82) 90 Oxymask 10.0 07/21/17 15:15 36.1 76 18 125/63 98 Oxymask 10 07/21/17 15:05 74 18 119/66 98 Oxymask 10 07/21/17 14:55 74 18 125/65 98 Oxymask 10 07/21/17 14:45 76 18 130/72 98 Oxymask 10 07/21/17 14:35 36.1 75 18 128/68 98 Oxymask 10 07/21/17 14:25 75 18 126/75 98 Oxymask 10 07/21/17 14:15 73 18 117/64 98 Oxymask 10 07/21/17 14:05 78 18 125/61 98 Oxymask 10 07/21/17 13:56 36.0 79 18 125/65 100 Oxymask 10 07/21/17 08:00 97 Nasal Cannula 4.0 07/21/17 07:15 36.7 82 20 128/72 (90) 97 Nasal Cannula 4.0 07/21/17 04:30 36.1 83 16 138/69 (92) 97 Nasal Cannula 5.0 Humidified Oxygen 07/21/17 00:00 Nasal Cannula 4.0 Physical Exam General Appearance: WD/WN, no apparent distress Eyes: normal inspection, PERRL, EOMI ENT: hearing grossly normal Neck: no JVD, no carotid bruits, trachea midline Respiratory/Chest: chest non-tender, no accessory muscle use, + decreased breath sounds Cardiovascular: regular rate, rhythm, no gallop, no JVD, no murmur Abdomen: normal bowel sounds, soft, + tenderness Extremities: no calf tenderness, + pedal edema (1+ bilaterally) 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 ACHS SC 07/06/17 07:00 08/05/17 06:59 07/20/17 12:46 2 UNITS Miscellaneous Information (Check Fentanyl Patch Placement) 1 ea QS N/A 07/06/17 08:00 08/05/17 07:59 07/21/17 16:00 1 EA Glucose (Glucose 40% Gel) 15-30 GRAMS 15 GRAMS... UD PRN PO 07/06/17 04:15 08/05/17 04:14 Glucose (Glucose Chew Tab) 4-8 Tablets 4 Tabl... UD PRN PO 07/06/17 04:15 08/05/17 04:14 Dextrose (Dextrose 50% 50ML Syringe) 25-50ML OF 50% DW IV FOR... UD PRN IV 07/06/17 04:15 08/05/17 04:14 07/06/17 05:40 25 ML Glucagon (Glucagon Inj) 1 mg UD PRN SQ 07/06/17 04:15 08/05/17 04:14 Heparin Sodium (Porcine) (Heparin 100 Unit/ml 5ml Flush) 5 ml PRN PRN IV 07/07/17 02:45 08/06/17 02:44 Future hold 07/21/17 05:21 5 ML Ondansetron HCl (Zofran Inj) 4 mg Q4H PRN IV 07/11/17 03:00 08/10/17 02:59 07/17/17 21:50 4 MG Prochlorperazine Edisylate 5 mg/ Syringe 5 ml @ 5 mls/min Q4H PRN IV 07/11/17 14:00 08/10/17 13:59 Lactulose (Chronulac Syrup) 30 gm Q4H PRN PO 07/11/17 16:45 08/10/17 16:44 Miscellaneous (Fentanyl Patch Remove & Waste) 1 ea Q3D@0859 N/A 07/22/17 08:59 08/21/17 08:58 Fentanyl (Duragesic Patch) 25 mcg Q3D@0900 TD 07/22/17 09:00 08/05/17 08:59 Ioversol (Optiray 320) 100 ml UD PRN IV 07/19/17 10:45 07/23/17 10:44 Insulin Glargine (Lantus Solostar Pen) 6 units HS SC 07/20/17 21:00 08/19/17 20:59 Ergocalciferol (Vitamin D Cap) 50,000 interunit Q7D@0900 PO 07/20/17 09:00 08/19/17 08:59 07/20/17 09:32 50,000 INTERUNIT Piperacillin Sod/ Tazobactam Sod (Consult) 1 ea UD PRN N/A 07/21/17 08:00 08/20/17 07:59 Piperacillin Sod/ Tazobactam Sod 3.375 gm/Dextrose 115 ml @ 28.75 mls/ hr Q12H IV 07/21/17 20:00 07/31/17 19:59 07/21/17 20:38 28.75 MLS/HR Epoetin Mohsen (Procrit Inj) 10,000 units TODAY@0600 IV. 07/22/17 06:00 07/22/17 23:59 Heparin Sodium (Porcine) (No Heparin In Dialysis) 1 ea TODAY@0600 N/A 07/22/17 06:00 07/22/17 23:59 Vancomycin HCl (Consult) 1 ea UD PRN N/A 07/21/17 16:00 08/20/17 15:59 Miscellaneous Information (Pharmacy Tpn/ Ppn Consult Active) 1 ea UD PRN N/A 07/21/17 17:00 08/20/17 16:59 Hydralazine HCl (HydrALAZINE INJ) 5 mg Q4 PRN IV. 07/21/17 17:15 08/20/17 17:14 Furosemide 20 mg/ Syringe 2 ml @ 4 mls/min QAM IV 07/22/17 09:00 08/21/17 08:59 Hydralazine HCl (HydrALAZINE INJ) 5 mg TID IV. 07/21/17 21:00 08/20/17 20:59 07/21/17 20:49 5 MG Metoprolol Tartrate (Lopressor Iv) 2.5 mg Q6 IV. 07/21/17 18:00 08/20/17 17:59 07/21/17 20:39 2.5 MG Methylprednisolone Sodium Succinate 40 mg/Syringe 0.64 ml @ 1.5 mls/min DAILY IV 07/22/17 09:00 08/21/17 08:59 Fentanyl Citrate (Fentanyl Inj) Fentanyl 25-50 mcg... Q4H PRN IV 07/21/17 20:45 08/04/17 20:44 07/21/17 20:43 50 MCG Assessment and Plan Mr. Christy is a 61 yo M with PMH ESRD on HD, RCC, DMII. Admitted for L hand cellulitis having failed outpatient management. 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 Patient found to have bowel perforation after routine CXR, and less than 24 hours after intact bowel seen on CT abdo. Diarrhea - C.Diff - remains afebrile - C.diff positive - On oral vancomycin - DCd due to NPO status in ICU on TPN. May get minimal coverage from IV Vanc. - Diarrhea had been improving daily and hopefully he will not regress. Stools now softly formed, less frequent, non-bloody - Considering multi-use of current abx, would recommend further 5-7 days of oral vanc after other abx are DCd - CT abdomen on admission - small right rectus sheath hematoma, no new lymphadenopathy, lesions of right kidney, unchanged from before Abdominal Pain - H&H stable - Rectus sheath hematoma - eating well with good appetite, denies n/v, wcc attributable to steroid, and palpable hematoma in direct region of pain is noted. appendicitis is in differential however is reassuring considering above Will continue to monitor for changes CT scan yesterday: healing hematoma, no evidence of ischemia or appendicitis - apply warm k-pad to the area for symptomatic relief - hold heparin for dvt prophylaxis and stop giving insulin injections in that area - New onset LUQ abdominal pain from yesterday persists, unchanged. Patient reports no difference in pain since yesterday. CT scan yesterday: healing hematoma, no evidence of ischemia Routine CXR today shows free air under diaphragm Stat repeat CT Abdo confirms bowel perforation Patient taken to OR for immediate colectomy, now in ICU Left hand cellulitis - persists - ID consulted. 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 Possible cryptogenic organizing pneumonia/drug related pneumonitis - increased prednisone from 10mg daily to 40mg daily. Taper by 5 weekly - steroids converted to IV wile NPO - IV zosyn to include anaerobe coverage - Continue O2 supplementation to maintain SaO2 >92%, wean to 3L oxygen not attempted due to patient sats down to 88 on ambulation Encephalopathy - improved - Unclear whether toxic from narcotics vs. metabolic vs. other - Decreased Oxycodone from 20mg to 10mg QID PRN - Ammonia normal at 26.4, VBG w/o significant hypercarbia PCO2 - 50 - Consider head CT to rule out mets from RCC if worsens ESRD HD secondary to RCC/ s/p left nephrectomy - Nephrology Consulted - Receives HD on Tuesdays, and Saturdays - appreciate oncology's input: - continue cabozantinib -> although does contain warning for GI perf and fistula - in light of abdominal pain, cabozantinib held - next scans planned for July - hypocalcemia; Vit D level of 9.4, supplement with ergocalciferol [id number] indefinitely plus daily D3 2000 when patient resumes oral intake - Recheck levels in 12 weeks Chronic Pain - continue fentanyl - Dr. Jackson consulted. Recommendations - continue prn oxycodone - dose decreased to 10mg q4h prn in light of encephalopathy - pt was on increased dose of methadone at 20 mg BID since 06/20 - in the hospital, he has been on 10mg TID, will increase to previous regimen of 20mg BID - Recommended rehab at [facility] - methadone held while NPO; if needs more pain control consider increasing fentanyl patch DMII - 7 units of Lantus with sliding scale - BSG AC HS Anemia - Hgb today stable 9.5; ferritin 1870 - nephrology -> continue epogen 53921 units and venofer 100mg - continue to monitor HTN/hyperlipidemia - asa 81 mg DCd while NPO: if prolonged NPO, consider aspirin suppositories in 48 hours - furosemide 20 IV daily; check daily BMP and monitor status- - hydralazine 100 mg tid-->converted to 5 TID scheduled, hold sys <120 - amlodipine 10 mg daily--> converted to 5 hydralazine prn for systolic >180 - metoprolol 150 mg bid-->IV 2.5 q6 - lisinopril 40 mg daily held while pressures are assessed in ICU. - simvastatin 20 mg daily DCd while NPO - I&O and daily weights BPH - continue tamsulosin 0.4 mg (held while in NPO) CKD Bone Mineral Disease - Continue oral Calcitriol - Continue CaCO3 500 mg with meals - Above held for NPO status in ICU DVT Prophylaxis: SCDs Code: Full Disposition: ICU post-colectomy Resident Physician Supervision Note: I interviewed and examined the patient. Discussed with Dr. Pitt and agree with findings and plan as documented in the note. Any exceptions or clarifications are listed here: None Documented By: Jim Genao seen post op. groggy but notes that overall he just feels cold. abdomen hurts some, hand still hurts some. limited HPI and ROS due to being groggy post op vitals noted, groggy but nad, breathing unlabored. abd soft nd mild diffuse tender very similar to prior exams. L hand tank tender 4th MC perforated small bowel - surprisingly no s/s peritonitis or sepsis - just found incidentally on CXR to f/u on lung status - likely between chemo and steroids immune system suppressed, and overall frailty/malnutrition makes his ability to mount a robust response compromised. zosyn, supportive care, TPN since he'll likely be prolonged NPO. surgery input greatly appreciated hand cellulitis - continue abx - had transitioned to levaquin for hand anticipating discharge, but with above, retruned to zosyn to get anerobic coverage as well. continue vanco. with persistent focal tenderness of 4th MC will want MRI hand once he's able. for now situation is stable on abx small bowel enteritis - was the cause of the perforation, as above noted showed no s/s peritonitis or sepsis. ?chemo vs infection vs both - treating Cdiff - clinically much iproved. 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 follow and transfuse prn severe protein malnutrition - concerning given the rest of his comorbidities - TPN, supportive care otherwise as above Resident Tracking Resident Involvement: Resident Care Provided Care Provided: Adult Hospital Medicine
[2017-07-21] MEDS ORDERED: HydrALAZINE HCL 20 MG/ML VIAL IV. PRN (17:15)
[2017-07-21] MEDS ORDERED: INSULIN HUMAN NPH SC SCH (20:00)
--- NOTE | 2017-07-21 20:12 | Progress Note ---
Progress Note Date of Service Jul 21, 2017. Progress Note The patient seen and examined. Plan of care as prescribed. Consult dictated. #[id number]. DR. Charly KRAUSE
[2017-07-21] MEDS ORDERED: NURSING VERBAL MED ORDER ONE (20:30)
[2017-07-21] MEDS: PIPERACILL/TAZOBAC IV 3.375 GM in DEXTROSE 5% 100ML IV SCH (20:38)
[2017-07-21] MEDS: METOPROLOL TARTRATE 1 MG/ML VIAL IV. SCH (20:39)
[2017-07-21] MEDS ORDERED: FENTANYL CITRATE INJ 50 MCG/1 ML 2 ML VIAL IV PRN (20:45)
[2017-07-21] MEDS: HydrALAZINE HCL 20 MG/ML VIAL IV. SCH (20:49)
--- NOTE | 2017-07-21 22:47 | CRITICAL CARE CONSULTATION ---
DATE OF CONSULTATION: 07/21/2017 The consultation requested by Dr. Angela Zelaya, postoperatively on a patient who just had perforated jejunal diverticulum which was repaired with exploratory laparotomy and partial small bowel resection. REASON FOR CONSULTATION: Respiratory failure, hypoxemia, and postoperative management of patient. HISTORY OF PRESENT ILLNESS: A 61-year-old male who has past medical history significant for metastatic renal cell carcinoma status post left nephrectomy, chronic kidney disease stage IV, he has been on dialysis, also has chronic anemia and hypertension; was brought into the hospital with worsening of his left hand cellulitis. The patient was transferred from [facility] ED. The cellulitis had developed in May when he injured while working on a drill bit, and then he did not seek any medical attention. He hand was swollen and also infected, and MRSA was positive. The patient was admitted with cellulitis initially and was treated with daptomycin and ertapenem. He was also evaluated by infectious disease. While in the hospital, he had developed left upper quadrant abdominal pain, but he did not have any vomiting. Surgery was consulted. He had a CT scan of the abdomen done on 07/13/2017, which showed a right rectus sheath hematoma measuring 5.4 cm and possible right-sided pneumonitis also. He had another CT scan on 07/19/2017 which showed some nonspecific small bowel wall thickening concerning for nonspecific colitis, no evidence of ischemic bowel, and during that time his stool was also positive for C. diff colitis and he was started on oral vancomycin. There was no blood in the stool or black tarry stool. He has been also on methadone, fentanyl patch and oxycodone for the pain. His pain continued and this morning he had another chest x-ray done, which revealed abdominal free air and during that time repeat CT scan shows moderate pneumoperitoneum and small amount of ascites has developed in the interval. The CT scan was reported as perforation of the bowel, and patient was taken to the OR by Dr. Angela Zelaya. The patient underwent exploratory laparotomy and partial small bowel resection. During that time, multiple jejunal diverticulum with large mid jejunal diverticulum with perforation and small hernia at prior colostomy site were found. He was also given 500 mL of crystalloid and 310 mL of packed red blood cells. The patient was extubated, and brought to the ICU. He is on 10 liters OxyMask and is maintaining his saturation around 89% to 91%. He has been postoperatively under anesthesia arousable, but not completely awake yet. Hemodynamically he is stable. PAST MEDICAL HISTORY: Hypertension, hyperlipidemia, diabetes mellitus type 2, chronic pain, metastatic renal cell carcinoma, end-stage renal disease on dialysis, diabetic neuropathy, benign prostatic hypertrophy, anxiety, depression, recurrent cellulitis of the left hand. PAST SURGICAL HISTORY: He had exploratory laparotomy with colostomy, reversal of the colostomy, left total nephrectomy, right A-port insertion, creation of the left AV fistula. FAMILY HISTORY: Cervical cancer, diabetes mellitus, heart disease, hypertension, myocardial infarction, pancreatic cancer, prostatic cancer. SOCIAL HISTORY: He was never a smoker. No alcohol use. No drug use. He is single, lives alone, and is disabled. ALLERGIES: IODINATED DIAGNOSTIC AGENTS. HOME MEDICATIONS: He is on amlodipine 10 mg p.o. daily, aspirin 81 mg p.o. daily, Cabometyx 60 mg p.o. q.a.m., calcitriol 0.25 mcg p.o. q. 2 days, calcium carbonate Tums, daptomycin 350 mg IV q. 48 hours, fentanyl 25 mcg patch q. 72 hours, Lasix 40 mg p.o. q.a.m., hydralazine Apresoline 100 mg p.o. t.i.d., insulin glargine Lantus 14 units subQ at bedtime, Humulin t.i.d., lactobacillus acidophilus, lisinopril 1 tablet orally daily, methadone 10 mg p.o. t.i.d., metoprolol 100 mg p.o. twice a day, oxycodone 10 mg p.o. t.i.d., prednisone 10 mg p.o. t.i.d., simvastatin tamsulosin 0.4 mg p.o. at bedtime, and he is also on p.o. vancomycin. CURRENT INPATIENT MEDICATIONS: As mentioned above plus heparin, p.r.n., Zofran p.r.n., vancomycin 125 mg p.o. q. 6 hours, prednisone 40 mg p.o. daily, fentanyl patch 25 mcg q. 72 hours, Levaquin, Lantus, also Zosyn. OBJECTIVE: GENERAL: Middle-aged male lying in the bed, still very lethargic, not in any acute distress. VITAL SIGNS: His temperature is 36.7, blood pressure 129/59, his pulse is 81, respiratory rate is 22, pulse ox is 90% to 91% on 10 liters OxyMask. I's and O's; input was 500, output was only 660. He is a dialysis patient. HEENT: Pupils are reactive to light. There is no cervical or supraclavicular adenopathy. No jugular venous distention. He has got generalized somewhat anasarca. NECK: Supple. No JVD. Left side of the neck he has got internal jugular central line, which has got some oozing but not at this time. There is no lymphadenopathy. CHEST: Bilateral air entry with coarse breathing. Crackles posteriorly. No wheezing heard. HEART: S1, S2 heard. Regular rate and rhythm. No murmur could be appreciated. ABDOMEN: Status post surgery. Bowel sounds are diminished. He has got some hematoma on the right side of the abdomen which was positive according to the Surgery, prior to the surgery. He has got some hematoma in his rectus sheath. EXTREMITIES: He has got cellulitis of the left arm. He has also got edema of his legs. SKIN: He has got cellulitis of his left arm. NEUROLOGIC: Limited study. He is arousable. He moves his extremities. His pupils are reactive to light. LABORATORY DATA: His sodium is 135, potassium 4.7, chloride 103, CO2 29, anion gap was 3.0, BUN 26, creatinine 2.95, his glucose was 112, calcium 8.2, AST 31, total bilirubin 0.2, ALT 29, alkaline phosphatase 66, albumin 1.1 and his prealbumin is 14.5. His WBC was 10.85, H&H 7.9/25.5, and his platelets are 149. His PT/INR was 1.0. His chest x-ray which was done today; no pneumothorax, progressive moderate pulmonary edema with small bilateral pleural effusion, pneumoperitoneum which has improved which was postoperatively. The patient also had a CT of the abdomen which revealed moderate pneumoperitoneum and a small amount of ascites, consistent with bowel perforation, multiple thickened loops of small bowel within the left side of the abdomen, thickening of the distal transverse colon with adjacent sites of extraperitoneal gas; therefore, this site represents site of perforation and could be due to a perforated distal transverse colon or jejunal diverticulum. Moderate right and small left pleural effusion has progressed. There is also progressive ground-glass nodular density within the lung bases, this may represent worsening pulmonary edema or an atypical pneumonia. A few enlarged retroperitoneal left retrocrural lymph nodes are again noted, left nephrectomy, questionable mild gallbladder wall thickening. IMPRESSION AND PLAN: A 61-year-old male was brought into the ICU after he was diagnosed with perforated small bowel. 1. Perforated jejunal diverticulum status post exploratory laparotomy, partial small bowel obstruction. 2. Cellulitis of the hand. 3. Clostridium difficile colitis. 4. Small bowel enteritis. 5. End-stage renal disease. 6. Chronic obstructive pulmonary disease exacerbation. 7. Chronic anemia. 8. Severe protein malnutrition. 1. Neurology: The patient from the neuro point is very stable. He is arousable. His pupils are reactive to light and he moves his extremity, so there are no issues at this time. 2. Cardiology: He is maintaining his blood pressure. He has got history of hypertension, but he is on medications which will be continued and at this stage he seems to be stable on current plan of care. 3. Pulmonary: The patient has got COPD exacerbation. He is on nebulizer. He is also on Solu-Medrol which will be continued, and he has got bilateral pleural effusions as well and that could be related to his protein malnutrition. He is on antibiotics, Zosyn and I do not see any sign of pneumonia at this time. 4. Gastrointestinal: The patient had jejunal diverticular perforation status post laparotomy and repair of that by the Surgery today. We will follow their recommendations. 5. C. diff colitis: He was on p.o. vancomycin, but because of perforation the vancomycin was changed to IV. We are going to keep a close watch on him. 6. He has also got hematoma in right rectus sheath, which will be closely watched. 7. Infectious disease: The patient has C. diff colitis. He has been treated with vancomycin. He also is on Levaquin and Zosyn, which will be continued. We are also going to follow the cultures very closely. He has also got cellulitis and he is being treated for that as well. 8. Hematology: The patient has got chronic anemia and he has got end-stage renal disease. 9. Endocrine: He has got diabetes mellitus and he is on insulin for that. We are going to continue to monitor him very closely. 10. He is also hypoxemic that could be multifactorial including his generalized anasarca, pleural effusion. He is on OxyMask and he will maintain his saturation above 90% to 91%. DVT prophylaxis: He is on SCDs. He just had surgery. The patient is full code. We are going to continue with all this management as prescribed. I have spent greater than 55 minutes of the critical care time. TALIA
[2017-07-22] VITALS (44 sets, daily range): BP systolic 113–152; BP diastolic 8–75; PULSE 94–123; TEMP 36.6–37.5; O2SAT 86–97
[2017-07-22] MEDS: CHECK FENTANYL PATCH PLACEMENT SCH ×4 (00:54→23:32)
[2017-07-22 05:37] LABS: HEMATOCRIT 28.3 % (42-52); MEAN CELL VOLUME 93.7 fL (80-100); MEAN CORPUSCULAR HEMOGLOBIN 29.8 pg (25-34); MEAN CORPUSCULAR HGB CONC 31.8 g/dl (32-36); MEAN PLATELET VOLUME 10.2 fL (7.4-10.4); NUCLEATED RED BLOOD CELL ABS 0.82 K/uL (0-0); PLATELET COUNT 163 K/uL (130-400); RED CELL DISTRIBUTION WIDTH CV 24.2 % (11.5-14.5); RED CELL DISTRIBUTION WIDTH SD 80.6 fL (36.4-46.3); WHITE BLOOD COUNT 11.71 K/uL (4.8-10.8)
[2017-07-22 05:55] LABS: ALBUMIN 1.1 gm/dl (3.4-5.0); CALCIUM 7.9 mg/dl (8.5-10.1); CREATININE 4.07 mg/dl (0.60-1.40)
[2017-07-22] MEDS ORDERED: EPOETIN ALFA 10,000 UNITS/ML VIAL IV. SCH (06:00)
[2017-07-22 06:02] LABS: PHOSPHORUS 4.4 mg/dl (2.5-4.9); TOTAL PROTEIN 4.1 gm/dl (6.4-8.2)
[2017-07-22] MEDS: INSULIN ASPART 100 UNITS/ML 3 ML PEN SC SCH ×5 (07:21→23:31)
[2017-07-22] MEDS: FENTANYL CITRATE INJ 50 MCG/1 ML 2 ML VIAL IV PRN ×4 (08:06→23:34)
[2017-07-22] MEDS: FUROSEMIDE INJ 20 MG in SYRINGE 0 ML IV SCH (08:13)
[2017-07-22] MEDS: FENTANYL PATCH REMOVE & WASTE SCH (08:14)
[2017-07-22] MEDS: METHYLPREDNISOLONE IV 40 MG in SYRINGE 0 ML IV SCH (08:15)
[2017-07-22] MEDS: PIPERACILL/TAZOBAC IV 3.375 GM in DEXTROSE 5% 100ML IV SCH (08:17)
[2017-07-22] MEDS: HydrALAZINE HCL 20 MG/ML VIAL IV. SCH ×3 (09:00→20:10)
[2017-07-22] MEDS: FENTANYL 25 MCG/HR TDSY TD SCH (09:00)
[2017-07-22] MEDS: LISINOPRIL 40 MG TAB PO SCH (09:00)
--- NOTE | 2017-07-22 09:17 | Family Medicine Progress Note ---
Progress Note Date of Service Jul 22, 2017. Subjective Pt evaluation today including: conversation w/ patient (pt reports persistent abdominal pain generally all over his abdomen, 4-6/10. When asked about diarrhea pt states he doesn't know. Also concerned with his breathing although denies cough or dyspnea. He is not ambulating and so does not note a difference in his breathing with position or activity, but does feel improvement with his mask on. Generally feeling unwell. Left hand still red and swollen, although pt reports less pain this morning. ), physical exam, chart review, lab review Pain: abdomen 4-6/10, generally feeling unwell PO Intake: TPN; Voiding: orantes catheter in place (clear yellow in bag) Constitutional: + see HPI Respiratory: + see HPI Abdomen: + see HPI Skin: + see HPI Objective Physical Exam General Appearance: WD/WN, no apparent distress, + obese, + pertinent finding ( somnolent. AO x3) Eyes: normal inspection, EOMI Respiratory/Chest: lungs clear, normal breath sounds, no respiratory distress Cardiovascular: no gallop, no murmur, + tachycardia (regular rate) Abdomen: soft, + pertinent finding (hypoactive bowel sounds. Pt deferred palpation due to diffuse tenderness.) Neurologic/Psychiatric: alert, normal mood/affect, oriented x 3 Skin: + pertinent finding (erythema and swelling in left hand isolated mostly to digits, present on palm as well. Taped gauze over left 4th digit in place.) Assessment and Plan Mr. Christy is a 61 yo M with PMH of ESRD on HD, RCC, DMII. Admitted for L hand cellulitis having failed outpatient management. Found to have C.diff positive colitis and subsequent bowel perforation on 07/21, treated with colectomy. Pt has persistent abdominal pain a/w rectus sheath hematoma, anemia, and bilateral pneumonia on imaging. Abdominal pain, c diff colitis, perforated jejunal bowel, s/p colectomy, rectus sheath hematoma: Diarrhea - C.Diff - remains afebrile - C.diff positive - unable to take oral vanc at this time, is on IV vanc for other issue (hand cellulitis), and may receive some benefit. However, necessary to treat perforation at this time, dialysis will aid the anasarca, and hopefully resumption of oral vanc can be done in the near future. Renal cell cancer - Cabozantinib held due to small intestinal inflammation/perforation ESRD HD secondary to RCC/ s/p left nephrectomy - Nephrology Consulted - Receives HD on Tuesdays, and Saturdays - hypocalcemia; Vit D level of 9.4, supplement with ergocalciferol [id number] indefinitely plus daily D3 1999 when patient resumes oral intake - Recheck levels in 12 weeks Left hand cellulitis - persists - ID consulted. Recommendations: - on IV vanc & zosyn - consider repeat MRI for osteomyelitis of 4th metacarpal - warm compresses to help with pain - Recommend wound care on discharge SOB, hypoxia - pulmonary edema vs pneumonitis - pulmonary edema still present, receiving dialysis today. Grateful for nephro recs, will receive another unit of PRBC's today and hopefully this will help with taking off of fluid. - IV zosyn to include anaerobe coverage for possible cryptogenic organizing pneumonia/drug related pneumonitis - Continue O2 supplementation to maintain SaO2 >92%, wean to 3L oxygen not attempted due to patient sats down to 88 on ambulation Chronic Pain - continue fentanyl - all oral meds held at this time. May consider increasing frequency of fentanyl dosage (currently at 25-50 mcg q4) to q2? Or consider morphine IV. DMII - 7 units of Lantus with sliding scale - due to abdominal pain, pt refusing insulin at this time. - BSG AC HS Anemia - Hgb today stable 9.0 - nephrology -> continue epogen 46377 units and venofer 100mg - continue to monitor HTN/hyperlipidemia - asa 81 mg DCd while NPO: if prolonged NPO, consider aspirin suppositories in 48 hours - furosemide 20 IV daily; check daily BMP and monitor status- - hydralazine 100 mg tid-->converted to 5 TID scheduled, hold sys <120 - amlodipine 10 mg daily--> converted to 5 hydralazine prn for systolic >180 - metoprolol 150 mg bid-->IV 2.5 q6 - lisinopril 40 mg daily held while pressures are assessed in ICU. - simvastatin 20 mg daily DCd while NPO - I&O and daily weights BPH - continue tamsulosin 0.4 mg (held while in NPO) CKD Bone Mineral Disease - Continue oral Calcitriol - Continue CaCO3 500 mg with meals - Above held for NPO status in ICU DVT Prophylaxis: SCDs Code: Full Disposition: ICU post-colectomy. May transfer to floor today if continue to be hemodynamically stable and oxygenating sufficiently. Resident Physician Supervision Note: I interviewed and examined the patient. Discussed with Dr. Zepeda and agree with findings and plan as documented in the note. Any exceptions or clarifications are listed here: None Documented By: Jim Genao feeling "like shit" but overall surprisingly OK for all he's going through abdominal pain a little more than he would tolerated vitals noted nad abd diffuse tender no guarding/rebound perforated small bowel - almost certainly related to chemo agent given no classic enteritis picture - post op, zosyn, NPO, TPN, supportive care severe protein malnutrition - TPN Cdiff colitis - currently quiet. on IV vanco, can't take PO, follow hand cellulitis - vanco (and zosyn) - since 4th still very tender will want MRI hand to r/o osteomyelitis once he's stable enough to do so otherwise as above Continued [facility] stay due to: abnormal vital signs, inadequate oral pain control , multiple IV medications needed Resident Tracking Resident Involvement: Resident Care Provided Care Provided: Adult Hospital Medicine
[2017-07-22] MEDS: LACTOBACILLUS ACIDOPHILUS (FLORANEX) TAB PO SCH ×3 (09:44→19:56)
[2017-07-22] MEDS ORDERED: TPN/PPN CONSULT PHARMACY STA (10:24)
[2017-07-22 10:56] LABS: INR 1.1 (0.9-1.1); PTT PATIENT 37.4 SECONDS (21.0-31.0)
[2017-07-22] MEDS ORDERED: CEFEPIME CONSULT ACTIVE PRN (11:30)
[2017-07-22] MEDS ORDERED: VANCOMYCIN INJ 750 MG in SODIUM CHLORIDE 0.9% 250ML 250 ML IV ONE (11:30)
--- NOTE | 2017-07-22 11:34 | Surgery Progress Note ---
Surgery Progress Note Date of Service Jul 22, 2017. Subjective Rough time - had trouble with dialysis due to increased bleeding at fistula site. Will reattempt tomorrow. Getting another unit of blood. No flatus yet. Minimal ng output (60 cc). On face mask due to poor oxygenation. Objective Vital Signs: Date Time Temp Pulse Resp B/P (MAP) Pulse Ox O2 Delivery O2 Flow Rate FiO2 07/22/17 10:10 37.5 120 18 135/69 93 07/22/17 06:00 113 20 120/61 (100) 95 151/73 07/22/17 06:00 113 20 151/73 (99) 95 Oxymask 12.0 07/22/17 05:00 115 22 147/71 (96) 87 07/22/17 05:00 115 22 115/63 (97) 87 147/71 07/22/17 04:00 Oxymask 12.0 07/22/17 04:00 115 17 142/73 (97) 93 152/67 07/22/17 04:00 37.1 115 17 152/67 (95) 93 Oxymask 12.0 07/22/17 03:00 104 20 152/66 (94) 97 07/22/17 03:00 104 20 138/71 (96) 97 152/66 07/22/17 02:00 101 22 149/65 (93) 93 Oxymask 12.0 07/22/17 02:00 101 22 136/67 (95) 93 149/65 07/22/17 01:40 97 17 146/63 (90) 93 07/22/17 01:35 99 21 128/65 (90) 89 142/63 07/22/17 01:30 100 23 129/69 (92) 94 144/63 07/22/17 01:30 100 23 144/63 (90) 94 07/22/17 01:25 100 20 140/62 (88) 91 07/22/17 01:25 100 20 131/66 (89) 91 140/62 07/22/17 01:20 98 21 132/62 (87) 86 138/62 07/22/17 01:20 98 21 138/62 (87) 86 07/22/17 01:15 98 18 141/62 (88) 92 07/22/17 01:15 98 18 128/66 (90) 92 141/62 07/22/17 01:10 101 18 146/64 (91) 93 07/22/17 01:10 101 18 133/66 (93) 93 146/64 07/22/17 01:05 100 22 135/70 (92) 89 144/63 07/22/17 01:05 100 22 144/63 (90) 89 07/22/17 01:00 102 21 122/68 (90) 91 140/63 07/22/17 01:00 102 21 140/63 (88) 91 07/22/17 00:35 95 22 132/68 (90) 96 141/63 07/22/17 00:30 96 20 127/66 (89) 92 138/63 07/22/17 00:30 96 20 138/63 (88) 92 07/22/17 00:25 94 20 120/66 (90) 95 139/64 07/22/17 00:20 95 16 142/63 (89) 97 07/22/17 00:20 95 16 128/68 (92) 97 142/63 07/22/17 00:15 100 21 152/68 (96) 95 07/22/17 00:15 100 21 135/67 (100) 95 152/68 07/22/17 00:10 98 22 134/62 (86) 89 07/22/17 00:10 98 22 117/62 (87) 89 134/62 07/22/17 00:05 96 20 146/65 (92) 94 07/22/17 00:05 96 20 122/69 (95) 94 146/65 07/22/17 00:00 37.0 97 17 146/64 (91) 95 Oxymask 12.0 07/22/17 00:00 97 17 136/69 (95) 95 146/64 07/22/17 00:00 95 07/21/17 23:59 Oxymask 12.0 07/21/17 23:55 100 16 150/66 (94) 95 07/21/17 23:55 100 16 135/69 (96) 95 150/66 07/21/17 23:50 96 22 128/61 (93) 95 147/63 07/21/17 23:50 96 22 147/63 (91) 95 07/21/17 23:45 95 18 143/63 (89) 94 07/21/17 23:45 95 18 125/66 (91) 94 143/63 07/21/17 23:40 95 21 122/66 (91) 94 142/63 07/21/17 23:40 95 21 142/63 (89) 94 07/21/17 23:35 99 16 141/63 (89) 94 07/21/17 23:35 99 16 120/71 (91) 94 141/63 07/21/17 23:30 94 25 142/63 (89) 95 07/21/17 23:30 94 25 126/64 (90) 95 142/63 07/21/17 23:25 96 21 129/66 (90) 93 143/62 07/21/17 23:25 96 21 143/62 (89) 93 07/21/17 23:20 96 21 141/63 (89) 93 07/21/17 23:20 96 21 127/66 (90) 93 141/63 07/21/17 23:15 97 17 126/68 (91) 94 143/63 07/21/17 23:15 97 17 143/63 (89) 94 07/21/17 23:10 93 27 137/61 (86) 95 07/21/17 23:10 93 27 121/62 (87) 95 137/61 07/21/17 23:05 96 21 116/64 (89) 93 140/62 07/21/17 23:00 97 18 122/62 (89) 94 138/62 07/21/17 23:00 97 18 138/62 (87) 94 07/21/17 20:39 86 139/62 07/21/17 20:00 92 Oxymask 10.0 07/21/17 18:35 81 22 118/61 (73) 129/59 07/21/17 18:30 82 18 110/60 (84) 91 128/58 07/21/17 18:25 81 16 123/63 (85) 92 131/59 07/21/17 18:20 80 16 106/67 (85) 93 131/58 07/21/17 18:15 82 18 113/63 (86) 94 131/58 07/21/17 18:10 80 18 119/61 (85) 91 131/59 07/21/17 18:05 80 17 118/61 (84) 93 129/57 07/21/17 18:00 80 17 120/69 (84) 92 128/57 07/21/17 17:55 79 20 97/59 (79) 93 121/56 07/21/17 17:50 78 16 121/61 (82) 95 125/58 07/21/17 17:45 78 17 124/65 (87) 92 131/60 07/21/17 17:40 78 16 111/60 (71) 128/59 07/21/17 17:35 82 18 129/66 (93) 98 143/63 07/21/17 17:30 79 15 117/69 (93) 96 143/62 07/21/17 17:25 79 19 126/64 (90) 97 138/61 07/21/17 17:20 81 17 125/65 (91) 96 139/62 07/21/17 17:15 81 17 120/63 (171) 100 192/144 07/21/17 17:10 77 17 123/65 (87) 94 131/60 07/21/17 17:05 80 14 117/63 (87) 98 130/62 07/21/17 17:00 79 22 118/60 (86) 95 128/61 07/21/17 17:00 94 Oxymask 10.0 07/21/17 17:00 36.0 83 22 119/64 (82) 90 Oxymask 10.0 07/21/17 15:15 36.1 76 18 125/63 98 Oxymask 10 07/21/17 15:05 74 18 119/66 98 Oxymask 10 07/21/17 14:55 74 18 125/65 98 Oxymask 10 07/21/17 14:45 76 18 130/72 98 Oxymask 10 07/21/17 14:35 36.1 75 18 128/68 98 Oxymask 10 07/21/17 14:25 75 18 126/75 98 Oxymask 10 07/21/17 14:15 73 18 117/64 98 Oxymask 10 07/21/17 14:05 78 18 125/61 98 Oxymask 10 07/21/17 13:56 36.0 79 18 125/65 100 Oxymask 10 Physical Exam: nasogastric drainage (60 cc) Cardiovascular: + tachycardia Abdomen: soft, + distended (mild), + tenderness (at incision), + pertinent finding (right rectus hematoma - unchanged) Incision(s): clean, dry, intact Extremities: + pedal edema Laboratory Results: Results Past 24 Hours Test 07/21/17 14:02 07/21/17 17:05 07/21/17 20:53 07/21/17 23:57 Range/Units Bedside Glucose 112 97 81 70-99 mg/dl Total Bilirubin 0.3 0.2-1 mg/dl Aspartate Amino Transf (AST/SGOT) 28 15-37 U/L Alanine Aminotransferase (ALT/SGPT) 29 12-78 U/L Alkaline Phosphatase 66 45-117 U/L Prealbumin 14.5 20-40 mg/dl Test 07/22/17 05:23 07/22/17 10:27 Range/Units White Blood Count 11.71 4.8-10.8 K/uL Red Blood Count 3.02 4.7-6.1 M/uL Hemoglobin 9.0 14.0-18.0 g/dL Hematocrit 28.3 42-52 % Mean Corpuscular Volume 93.7 80-100 fL Mean Corpuscular Hemoglobin 29.8 25-34 pg Mean Corpuscular Hemoglobin Concent 31.8 32-36 g/dl RDW Standard Deviation 80.6 36.4-46.3 fL RDW Coefficient of Variation 24.2 11.5-14.5 % Platelet Count 163 130-400 K/uL Mean Platelet Volume 10.2 7.4-10.4 fL Nucleated RBC Absolute Count (auto) 0.82 0-0 K/uL Nucleated Red Blood Cells % 7.0 % Sodium Level 136 136-145 mmol/L Potassium Level 5.0 3.5-5.1 mmol/L Chloride Level 104 98-107 mmol/L Carbon Dioxide Level 25 21-32 mmol/L Anion Gap 7.0 3-11 mmol/L Blood Urea Nitrogen 41 7-18 mg/dl Creatinine 4.07 0.60-1.40 mg/dl Est Creatinine Clear Calc Drug Dose 19.2 ml/min Estimated GFR () 16.9 Estimated GFR (Non- 14.6 BUN/Creatinine Ratio 10.1 10-20 Random Glucose 89 70-99 mg/dl Calcium Level 7.9 8.5-10.1 mg/dl Phosphorus Level 4.4 2.5-4.9 mg/dl Magnesium Level 2.2 1.8-2.4 mg/dl Total Bilirubin 0.3 0.2-1 mg/dl Aspartate Amino Transf (AST/SGOT) 27 15-37 U/L Alanine Aminotransferase (ALT/SGPT) 30 12-78 U/L Alkaline Phosphatase 68 45-117 U/L C-Reactive Protein 24.90 0-0.29 mg/dl Total Protein 4.1 6.4-8.2 gm/dl Albumin 1.1 3.4-5.0 gm/dl Globulin 3.0 2.5-4.0 gm/dl Albumin/Globulin Ratio 0.4 0.9-2 Triglycerides Level 337 0-150 mg/dl Random Vancomycin Level 9.6 mcg/ml Prothrombin Time 11.8 9.0-12.0 SECONDS Prothromb Time International Ratio 1.1 0.9-1.1 Activated Partial Thromboplast Time 37.4 21.0-31.0 SECONDS Partial Thromboplastin Ratio 1.4 Microbiology Results 07/21/17 MRSA DNA Surveillance Screen - Final, Complete Specimen Negative for MRSA by DNA Probe 07/21/17 Gram Stain - Final, Resulted 07/21/17 Bacterial Culture, Resulted Pending Assessment & Plan POD#1 from small bowel resection due to jejunal diverticular perforation. Abdomen is doing OK - would plan on discontinuing ng tube tomorrow and can resume PO on Monday (if does not develop ileus). Multiple other issues managed by critical care/ nephrology. Remains tachycardic, high oxygen requirement, volume overloaded with generalized anasarca. Overall, still in critical condition. I will be out of town starting tomorrow. Dr. De La Cruz to round tomorrow and then Drs. Paul/ Artur to cover over the week.
--- NOTE | 2017-07-22 11:48 | Nephrology Progress Note ---
Nephrology Progress Note Date of Service Jul 22, 2017. Chief Complaint Provide inpatient HD and assist w/ medical management of this patient w/ ESRD Subjective Mr. Christy was seen & examined in the ICU this morning. He required emergency laparotomy yesterday due to a perforated jejunal diverticulum. He underwent intestinal reanastamosis. Post-op he was transfuse one unit of PRBC and transferred to ICU for ongoing medical management. HD was attempted this am. Dialysis was complicated by brisk bleeding from the venous needle site. Dialysis was stopped and pressure applied to the site. Hemostasis was obtained after 20 min direct pressure. Doppler of venous limb of AVF and coagulation studies have been ordered. Review of Systems Constitutional: No fever Cardiovascular: No chest pain Respiratory: No dyspnea at rest Abdomen: + pain Extremities: + leg edema A complete review of systems was performed. Pertinent positives are noted above. All other systems are negative. Vital Signs Last 8 Hrs Date Time Temp Pulse Resp B/P (MAP) Pulse Ox O2 Delivery O2 Flow Rate FiO2 07/22/17 10:10 37.5 120 18 135/69 93 07/22/17 06:00 113 20 120/61 (100) 95 151/73 07/22/17 06:00 113 20 151/73 (99) 95 Oxymask 12.0 07/22/17 05:00 115 22 147/71 (96) 87 07/22/17 05:00 115 22 115/63 (97) 87 147/71 07/22/17 04:00 Oxymask 12.0 07/22/17 04:00 115 17 142/73 (97) 93 152/67 07/22/17 04:00 37.1 115 17 152/67 (95) 93 Oxymask 12.0 Last Recorded Weight Weight (Kilograms): 84.600 Physical Exam General Appearance: + mild distress (due to surgical incisional discomfort) Neck: supple Respiratory/Chest: lungs clear (anteriorly) Cardiovascular: + tachycardia Abdomen/GI: + pertinent finding (surgical incision w/ clean dry dressing. No bowel sounds) Extremities/Musculoskelatal: + pedal edema (1+ pretibial edema), + pertinent finding Neurologic/Psych: alert, oriented x 3 Family History Cervical cancer Diabetes mellitus Heart disease Hypertension Myocardial infarction Pancreatic cancer Prostate cancer Negative for CKD/ESRD Social History Smokeless Tobacco Use: No Alcohol Use: none Drug Use: none Marital Status: single Housing Status: lives alone Occupation: disabled Single, retired. Formerly worked for [employer]. Never a smoker. Laboratory Results Past 24 Hours 07/22/17 05:23 07/22/17 05:23 Test 07/21/17 14:02 07/21/17 17:05 07/21/17 20:53 07/21/17 23:57 Bedside Glucose 112 mg/dl (70-99) 97 mg/dl (70-99) 81 mg/dl (70-99) Total Bilirubin 0.3 mg/dl (0.2-1) Aspartate Amino Transf (AST/SGOT) 28 U/L (15-37) Alanine Aminotransferase (ALT/SGPT) 29 U/L (12-78) Alkaline Phosphatase 66 U/L (45-117) Prealbumin 14.5 mg/dl (20-40) Test 07/22/17 05:23 07/22/17 10:27 Red Blood Count 3.02 M/uL (4.7-6.1) Mean Corpuscular Volume 93.7 fL (80-100) Mean Corpuscular Hemoglobin 29.8 pg (25-34) Mean Corpuscular Hemoglobin Concent 31.8 g/dl (32-36) RDW Standard Deviation 80.6 fL (36.4-46.3) RDW Coefficient of Variation 24.2 % (11.5-14.5) Mean Platelet Volume 10.2 fL (7.4-10.4) Nucleated RBC Absolute Count (auto) 0.82 K/uL (0-0) Nucleated Red Blood Cells % 7.0 % Anion Gap 7.0 mmol/L (3-11) Est Creatinine Clear Calc Drug Dose 19.2 ml/min Estimated GFR () 16.9 Estimated GFR (Non- 14.6 BUN/Creatinine Ratio 10.1 (10-20) Calcium Level 7.9 mg/dl (8.5-10.1) Phosphorus Level 4.4 mg/dl (2.5-4.9) Magnesium Level 2.2 mg/dl (1.8-2.4) Total Bilirubin 0.3 mg/dl (0.2-1) Aspartate Amino Transf (AST/SGOT) 27 U/L (15-37) Alanine Aminotransferase (ALT/SGPT) 30 U/L (12-78) Alkaline Phosphatase 68 U/L (45-117) C-Reactive Protein 24.90 mg/dl (0-0.29) Total Protein 4.1 gm/dl (6.4-8.2) Albumin 1.1 gm/dl (3.4-5.0) Globulin 3.0 gm/dl (2.5-4.0) Albumin/Globulin Ratio 0.4 (0.9-2) Triglycerides Level 337 mg/dl (0-150) Random Vancomycin Level 9.6 mcg/ml Prothrombin Time 11.8 SECONDS (9.0-12.0) Prothromb Time International Ratio 1.1 (0.9-1.1) Activated Partial Thromboplast Time 37.4 SECONDS (21.0-31.0) Partial Thromboplastin Ratio 1.4 Date/Time Source Procedure Growth Status 07/21/17 14:30 Nasal MRSA DNA Surveillance Screen - Final Specimen Negative for MRSA by DNA Probe Complete Allergies Coded Allergies: Iodinated Diagnostic Agents (Verified Allergy, Unknown, oil based, severe headaches, 06/20/17) EVENT OCCURED IN 1971, PT STATES HE HAS HAD 3 DIFFERENT WATER BASED IVP DYES WITH NO ISSUE Medications Current Inpatient Medications Medications (Trade) Dose Ordered Sig/Edward Route Start Time Stop Time Status Last Admin Dose Admin Lactobacillus Acidophilus (Floranex Tab) 2 tab TID PO 07/06/17 09:00 08/05/17 08:59 07/21/17 00:20 2 TAB Lisinopril (Zestril Tab) 40 mg DAILY PO 07/06/17 09:00 08/05/17 08:59 07/20/17 09:32 40 MG Insulin Aspart (novoLOG ASPART) SLIDING SCALE G... ACHS SC 07/06/17 07:00 08/05/17 06:59 07/20/17 12:46 2 UNITS Miscellaneous Information (Check Fentanyl Patch Placement) 1 ea QS N/A 07/06/17 08:00 08/05/17 07:59 07/22/17 08:13 1 EA Glucose (Glucose 40% Gel) 15-30 GRAMS 15 GRAMS... UD PRN PO 07/06/17 04:15 08/05/17 04:14 Glucose (Glucose Chew Tab) 4-8 Tablets 4 Tabl... UD PRN PO 07/06/17 04:15 1/13/18 04:14 Dextrose (Dextrose 50% 50ML Syringe) 25-50ML OF 50% DW IV FOR... UD PRN IV 07/06/17 04:15 08/05/17 04:14 07/06/17 05:40 25 ML Glucagon (Glucagon Inj) 1 mg UD PRN SQ 07/06/17 04:15 08/05/17 04:14 Heparin Sodium (Porcine) (Heparin 100 Unit/ml 5ml Flush) 5 ml PRN PRN IV 07/07/17 02:45 08/06/17 02:44 Future hold 07/21/17 05:21 5 ML Ondansetron HCl (Zofran Inj) 4 mg Q4H PRN IV 07/11/17 03:00 08/10/17 02:59 07/17/17 21:50 4 MG Prochlorperazine Edisylate 5 mg/ Syringe 5 ml @ 5 mls/min Q4H PRN IV 07/11/17 14:00 08/10/17 13:59 Lactulose (Chronulac Syrup) 30 gm Q4H PRN PO 07/11/17 16:45 08/10/17 16:44 Miscellaneous (Fentanyl Patch Remove & Waste) 1 ea Q3D@0859 N/A 07/22/17 08:59 08/21/17 08:58 07/22/17 08:14 1 EA Fentanyl (Duragesic Patch) 25 mcg Q3D@0900 TD 07/22/17 09:00 08/05/17 08:59 07/22/17 09:00 25 MCG Ioversol (Optiray 320) 100 ml UD PRN IV 07/19/17 10:45 07/23/17 10:44 Insulin Glargine (Lantus Solostar Pen) 6 units HS SC 07/20/17 21:00 08/19/17 20:59 Ergocalciferol (Vitamin D Cap) 50,000 interunit Q7D@0900 PO 07/20/17 09:00 08/19/17 08:59 07/20/17 09:32 50,000 INTERUNIT Epoetin Mohsen (Procrit Inj) 10,000 units TODAY@0600 IV. 07/22/17 06:00 07/22/17 23:59 Heparin Sodium (Porcine) (No Heparin In Dialysis) 1 ea TODAY@0600 N/A 07/22/17 06:00 07/22/17 23:59 Vancomycin HCl (Consult) 1 ea UD PRN N/A 07/21/17 16:00 08/20/17 15:59 Miscellaneous Information (Pharmacy Tpn/ Ppn Consult Active) 1 UD PRN N/A 07/21/17 17:00 08/20/17 16:59 Hydralazine HCl (HydrALAZINE INJ) 5 mg Q4 PRN IV. 07/21/17 17:15 08/20/17 17:14 Furosemide 20 mg/ Syringe 2 ml @ 4 mls/min QAM IV 07/22/17 09:00 08/21/17 08:59 07/22/17 08:13 4 MLS/MIN Hydralazine HCl (HydrALAZINE INJ) 5 mg TID IV. 07/21/17 21:00 08/20/17 20:59 07/21/17 20:49 5 MG Methylprednisolone Sodium Succinate 40 mg/Syringe 0.64 ml @ 1.5 mls/min DAILY IV 07/22/17 09:00 08/21/17 08:59 07/22/17 08:15 1.5 MLS/MIN Fentanyl Citrate (Fentanyl Inj) Fentanyl 25-50 mcg... Q4H PRN IV 07/21/17 20:45 08/04/17 20:44 07/22/17 08:06 50 MCG Metoprolol Tartrate (Lopressor Iv) 5 mg Q6 IV. 07/22/17 12:00 08/20/17 17:59 Metronidazole 500 mg/Prmx 100 ml @ 100 mls/hr Q8@04,12,20 IV 07/22/17 12:00 08/05/17 11:59 Nutrition (Parenteral) 0 ml @ 0 mls/hr TODAY@1600 IV 07/22/17 16:00 07/23/17 15:59 Dextrose 1,000 ml @ 0 mls/hr Q0M PRN IV 07/22/17 16:00 08/21/17 15:59 Cefepime HCl (Consult) 1 ea UD PRN N/A 07/22/17 11:30 08/21/17 11:29 Vancomycin HCl 750 mg/Sodium Chloride 265 ml @ 125 mls/hr NOW ONCE IV 07/22/17 11:30 07/22/17 13:37 Impression (1) Cellulitis of left hand (2) ESRD (end stage renal disease) on dialysis (3) Renal cell carcinoma (4) Anemia (5) Diabetes type 2, controlled Mr. Christy is a 61-year-old male with ESRD and metastatic RCC. He underwent left nephrectomy in 2016. Mr. Christy did not tolerate Sutent due to high grade proteinuria, Opdivo caused arthralgia, colitis and possible pneumonitis. He was most recently treated w/ Cabometyx. Mr. Christy was admitted with persistent soft tissue infection of the left hand. This improved with antibiotics. He now has a possible evolving pneumonia. Current antibiotics include Zosyn and Vancomycin. Mr. Christy developed abdominal pain associated with an abdominal wall hematoma and tested positive for C. Difficile colitis. On 07/21 he was diagnosed with intestinal perforation and required emergency laparotomy Recommendations END STAGE RENAL DISEASE: -- HD stopped this am due to excessive bleeding from venous needle site. Hemostasis obtained following 20 min direct pressure. -- Will check coagulation studies and doppler of venous limb of AVF to assess for central venous stenosis -- Will reasses need for HD in am ANEMIA: -- Will provide IDALIA w/ HD treatments -- Will transfuse 1 u PRBC today to keep Hgb ~ 10. HYPERTENSION: -- Blood pressure is currently well controlled. Continue current antihypertensive regimen. No change at present. RENAL CELL CA: -- Cabozantinib is on hold. 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 This was necessary to perform physical exam, discuss management w/ ICU team and assist HD chief of staff with bleeding complication and ordering appropriate studies.
[2017-07-22] MEDS ORDERED: NURSING VERBAL MED ORDER ONE ×2 (12:30→17:00)
[2017-07-22] MEDS ORDERED: LEVETIRACETAM IV 1,000 MG in DEXTROSE 5% 100ML 100 ML IV ONE (12:30)
[2017-07-22] MEDS: METRONIDAZOLE 500MG / NSS IV SCH ×2 (12:38→20:10)
[2017-07-22] MEDS: METOPROLOL TARTRATE 1 MG/ML VIAL IV. SCH ×4 (12:39→23:32)
--- NOTE | 2017-07-22 13:42 | CRITICAL CARE PROGRESS NOTE ---
DATE: 07/22/2017 SUBJECTIVE: This is a 61-year-old male who has a past medical history significant for metastatic renal cell carcinoma, status post left nephrectomy and he has got chronic kidney disease stage V, currently on dialysis. He also has hypertension as well as chronic anemia and was admitted with left arm cellulitis. He also has C. diff colitis. The patient was taken to the OR because he was diagnosed with perforated viscus. The patient has jejunal diverticular perforation, status post laparotomy and small bowel resection and repair of the perforation, postoperative day #1. The abdomen is still painful, but he seems to be improving. He does not have any nausea or vomiting. Also, does not have any chest pain. He gets short of breath and hypoxemic with any kind of exertional activities. He probably has aspiration pneumonia as well. The patient was supposed to be dialyzed today, but from the fistula, he is started bleeding, which did not stop for at least 12-13 minutes and after compression, it has stopped and at this time, the dialysis is on hold until tomorrow. In the meantime, he is anemic and is receiving second unit of packed red blood cell transfusion. His diarrhea seems to be better as well. He was started on IV Flagyl because he is not able to take p.o. vancomycin for his C. diff colitis. He is also on broad spectrum antibiotics including cefepime as well as vancomycin because of his left arm cellulitis and also pneumonia, possibly from aspiration. He is afebrile and his white count also seems to be stable. OBJECTIVE: GENERAL: Middle age male, resting comfortably, not in any acute distress. He gets short of breath with any kind of exertional activities. VITAL SIGNS: His temperature is 37.5, his blood pressure was 158/74, his pulse rate is 116 and his oxygen saturation was 96% that was on 4 liters O2 via nasal cannula. He is a dialysis patient and not putting out significant urine. His input was 500 and his output was 150. HEENT AND NECK: Pupils are reactive to light. There is no cervical or supraclavicular adenopathy. No jugular venous distention. Nasal passages are filled with some mucoid secretions. There are nontender sinuses. CHEST: Bilateral air entry with decreased breath sounds. Also, has some crackles at the bases posteriorly. No wheezing and no rhonchi heard. HEART: S1 and S2 heard. Tachycardia. ABDOMEN: Distended, status post surgery. Tender. Bowel sounds are diminished. EXTREMITIES: No clubbing. He has got bilateral edema of his upper extremities as well as lower extremities. He has got anasarca. SKIN: He has got cellulitis of his left arm. MUSCULOSKELETAL: He has been getting very weak. NEUROLOGIC: Limited study, which is grossly nonfocal. He is moving all his extremities. LABORATORIES: His WBC is 11.71, H&H 9.0/28.3 and his platelets are 163. Differential count is normal. His PT is 11.8, INR is 1.1, and PTT is 37.4. His sodium is 136, potassium 5.0, chloride 104, CO2 of 25, anion gap was 7, chloride is 104, BUN 41, creatinine 4.07 and his glucose was 89. Uric acid was 7.9. Phosphorus 4.4 and magnesium 2.2. His total bilirubin is 0.3. AST 27, ALT 30 and alkaline phosphatase 68. C-reactive protein is 24.9 and albumin is 1.1. Prealbumin was 14.5 and his triglycerides are 337. The microbiology was only positive for C. diff toxin and his MRSA was negative. IMAGING DATA: He had a chest x-ray done, which was satisfactory. Support line placement. No pneumothorax. Progressive moderate pulmonary edema with small bilateral pleural effusions. Pneumoperitoneum has improved postoperatively. Otherwise, the rest of the exams were as mentioned before. His CT of the abdomen revealed perforation of the small bowel and moderate pneumoperitoneum and a small amount of ascites. IMPRESSION AND PLAN: A 61-year-old male admitted with perforated jejunum, status post laparotomy and resection of the small bowel. 1. Neurology: From the neurology point, the patient seems to be stable. He is alert, awake, moving all his extremities and he is not in any acute distress. 2. Cardiology: He is maintaining his blood pressure. He has been on medications for his hypertension and currently, he is maintaining it and there are no issues at this time. 3. Gastrointestinal: The patient has jejunal diverticular perforation, status post laparotomy and repair of that. He seems to be doing better and currently he is stable. He has got some pain. He also has Clostridium difficile colitis and he was on p.o. vancomycin before, which he cannot take because of the surgery and we are going to put him on IV Flagyl 500 mg q. 8 hours. 4. Pulmonary: The patient is still hypoxemic. He has got some pulmonary edema. He was supposed to be dialyzed today, but some technical problems, he started bleeding from the fistula and dialysis is on hold and it will be done tomorrow. In the meantime, he seems to be oxygenating well. He received some Solu-Medrol. He is also getting some nebulizer treatment and we will closely monitor him. He has also got pneumonia, possibility of aspiration. He was on Zosyn, which will be changed to cefepime because he is also on Flagyl, which covers anaerobic. He is also on vancomycin. 5. Infectious disease. The patient has Clostridium difficile colitis and he has been treated with Flagyl IV 500 mg q. 8 hours. He also has pneumonia and he is on cefepime as well as Flagyl and the patient has left hand cellulitis as well and he is on vancomycin for that. His MRSA was negative. 6. Hematology: The patient seems to be stable. He has got end-stage renal disease. 7. Renal: The patient has end-stage renal disease. He was supposed to be dialyzed today, which is on hold. He will be dialyzed tomorrow. 8. Deep venous thrombosis prophylaxis: He has got SCD. Heparin is on hold and he has got central line in left IJ and he has also got right inguinal A-line. I have discussed with the surgery. I have spent greater than 35 minutes of critical care time.
--- NOTE | 2017-07-22 14:26 | Pharmacy Progress Note ---
Pharmacy Antibiotic Prog Note Date of Service Jul 22, 2017. Subjective The patient is currently receiving vancomycin prn HD/levels Objective Height (Feet): 5 Height (Inches): 10.00 Weight (Kilograms): 84.600 Lab Results (24hrs): Test 07/21/17 17:05 07/21/17 20:53 07/21/17 23:57 07/22/17 05:23 Total Bilirubin 0.3 mg/dl (0.2-1) 0.3 mg/dl (0.2-1) Aspartate Amino Transf (AST/SGOT) 28 U/L (15-37) 27 U/L (15-37) Alanine Aminotransferase (ALT/SGPT) 29 U/L (12-78) 30 U/L (12-78) Alkaline Phosphatase 66 U/L (45-117) 68 U/L (45-117) Prealbumin 14.5 mg/dl (20-40) Bedside Glucose 97 mg/dl (70-99) 81 mg/dl (70-99) White Blood Count 11.71 K/uL (4.8-10.8) Red Blood Count 3.02 M/uL (4.7-6.1) Hemoglobin 9.0 g/dL (14.0-18.0) Hematocrit 28.3 % (42-52) Mean Corpuscular Volume 93.7 fL (80-100) Mean Corpuscular Hemoglobin 29.8 pg (25-34) Mean Corpuscular Hemoglobin Concent 31.8 g/dl (32-36) RDW Standard Deviation 80.6 fL (36.4-46.3) RDW Coefficient of Variation 24.2 % (11.5-14.5) Platelet Count 163 K/uL (130-400) Mean Platelet Volume 10.2 fL (7.4-10.4) Nucleated RBC Absolute Count (auto) 0.82 K/uL (0-0) Nucleated Red Blood Cells % 7.0 % Sodium Level 136 mmol/L (136-145) Potassium Level 5.0 mmol/L (3.5-5.1) Chloride Level 104 mmol/L (98-107) Carbon Dioxide Level 25 mmol/L (21-32) Anion Gap 7.0 mmol/L (3-11) Blood Urea Nitrogen 41 mg/dl (7-18) Creatinine 4.07 mg/dl (0.60-1.40) Est Creatinine Clear Calc Drug Dose 19.2 ml/min Estimated GFR () 16.9 Estimated GFR (Non- 14.6 BUN/Creatinine Ratio 10.1 (10-20) Random Glucose 89 mg/dl (70-99) Calcium Level 7.9 mg/dl (8.5-10.1) Phosphorus Level 4.4 mg/dl (2.5-4.9) Magnesium Level 2.2 mg/dl (1.8-2.4) C-Reactive Protein 24.90 mg/dl (0-0.29) Total Protein 4.1 gm/dl (6.4-8.2) Albumin 1.1 gm/dl (3.4-5.0) Globulin 3.0 gm/dl (2.5-4.0) Albumin/Globulin Ratio 0.4 (0.9-2) Triglycerides Level 337 mg/dl (0-150) Random Vancomycin Level 9.6 mcg/ml Test 07/22/17 10:27 Prothrombin Time 11.8 SECONDS (9.0-12.0) Prothromb Time International Ratio 1.1 (0.9-1.1) Activated Partial Thromboplast Time 37.4 SECONDS (21.0-31.0) Partial Thromboplastin Ratio 1.4 Assessment & Plan Assessment * 61 yo M with multiple medical issues including but not limited to GI perforation s/p emergent surgery, C. diff colitis, hand cellulitis ? osteomyelitis, and [employer]. Patient is currently receiving cefepime IV, vancomycin IV, and metronidazole IV. Vancomycin po on hold 2nd GI perforation. * ESRD on chronic HD as outpatient - was to receive HD this AM but was stopped 2nd bleeding/access issues. Nephrology to re-evaluate tomorrow. Vancomycin * Goal vancomycin pre-HD levels 15-20 mcg/mL * Level of 9.6 mcg/mL is significantly subtherapeutic. This is 2nd ordered doses on 07/20 and 07/21 not being administered. * Patient not being dialyzed today, but still needs small supplemental dose to ensure level > 15 mcg/mL * Random in AM, in anticipation of possible HD tomorrow Plan * Vancomycin 750 mg IV x1 now * Random level w AM labs Pharmacy will continue to follow and will adjust dose/frequency as necessary. Thank you
[2017-07-22] MEDS ORDERED: CUSTOM CENTRAL PN 1 BAG IV SCH (16:00)
[2017-07-22] MEDS ORDERED: DEXTROSE 10% 1,000 ML IV PRN (16:00)
[2017-07-22] MEDS ORDERED: LEVETIRACETAM IV 500 MG in DEXTROSE 5% 100ML 100 ML IV SCH (18:00)
[2017-07-22] MEDS ORDERED: CEFEPIME IV 1,000 MG in SYRINGE 0 ML IV ONE (18:00)
[2017-07-22 21:06] LABS: HEMATOCRIT 24.1 % (42-52)
[2017-07-22] MEDS: INSULIN GLARGINE SOLOSTAR 100 UNITS/ML 3 ML PEN SC SCH (23:29)
[2017-07-23] VITALS (44 sets, daily range): BP systolic 135–174; BP diastolic 59–110; PULSE 95–113; TEMP 36.4–36.9; O2SAT 90–99
[2017-07-23 01:50] LABS: HEMATOCRIT 27.5 % (42-52); HEMOGLOBIN 9.2 g/dL (14.0-18.0)
[2017-07-23] MEDS: FENTANYL CITRATE INJ 50 MCG/1 ML 2 ML VIAL IV PRN ×3 (03:21→15:01)
[2017-07-23] MEDS: METRONIDAZOLE 500MG / NSS IV SCH ×3 (03:37→20:53)
[2017-07-23] MEDS: METOPROLOL TARTRATE 1 MG/ML VIAL IV. SCH ×3 (06:04→18:21)
[2017-07-23 06:05] LABS: HEMATOCRIT 30.5 % (42-52); HEMOGLOBIN 10.2 g/dL (14.0-18.0); MEAN CELL VOLUME 88.9 fL (80-100); MEAN CORPUSCULAR HEMOGLOBIN 29.7 pg (25-34); MEAN CORPUSCULAR HGB CONC 33.4 g/dl (32-36); NUCLEATED RED BLOOD CELL ABS 0.27 K/uL (0-0); RED CELL DISTRIBUTION WIDTH CV 20.7 % (11.5-14.5); RED CELL DISTRIBUTION WIDTH SD 59.6 fL (36.4-46.3); WHITE BLOOD COUNT 10.01 K/uL (4.8-10.8)
[2017-07-23] MEDS: INSULIN ASPART 100 UNITS/ML 3 ML PEN SC SCH ×3 (06:13→18:25)
[2017-07-23 06:33] LABS: MEAN PLATELET VOLUME 10.1 fL (7.4-10.4); PLATELET COUNT 90 K/uL (130-400)
[2017-07-23 06:43] LABS: CALCIUM 7.3 mg/dl (8.5-10.1); PHOSPHORUS 4.2 mg/dl (2.5-4.9); POTASSIUM 4.8 mmol/L (3.5-5.1)
--- NOTE | 2017-07-23 06:46 | DIAGNOSTIC IMAGING REPORT ---
L VENOUS DOPPLER UPR EXT UNIL HISTORY: Hypertension L arm AVF - eval for central stenosis. High pressure w/ HD COMPARISON STUDY: None. FINDINGS: The bulk of the upper extremity venous structures are patent. Incomplete evaluation of the jugular vein and its proximal subclavian vein due to poor placement. There is a be fistula. This is patent. Velocity, however is increased at 412 cm/s. This is at the level the brachial artery. IMPRESSION: 1. No evidence of deep venous thrombosis. 2. Considerable increase in velocities of the left AV fistula suggesting a high-grade stenosis. The above report was generated using voice recognition software. It may contain grammatical, syntax or spelling errors. Electronically signed by: Kirill Rainey M.D. 07/23/2017 6:45 AM Dictated Date/Time: 07/23/2017 6:43 AM
--- NOTE | 2017-07-23 07:55 | Family Medicine Progress Note ---
Progress Note Date of Service Jul 23, 2017. Subjective Pt evaluation today including: conversation w/ patient (pt overall feeling ok this morning, sleeping when I entered the room. Says his breathing is better, but still has pain in abdomen and anterior chest "when he touches" it. Otherwise no new cough.), physical exam, chart review, lab review Pain: controlled Voiding: orantes catheter in place Respiratory: + see HPI Cardiovascular: + see HPI Abdomen: + pain, No vomiting Medications Current Inpatient Medications Medications (Trade) Dose Ordered Sig/Edward Route Start Time Stop Time Status Last Admin Dose Admin Lactobacillus Acidophilus (Floranex Tab) 2 tab TID PO 07/06/17 09:00 08/05/17 08:59 07/21/17 00:20 2 TAB Lisinopril (Zestril Tab) 40 mg DAILY PO 07/06/17 09:00 08/05/17 08:59 07/20/17 09:32 40 MG Miscellaneous Information (Check Fentanyl Patch Placement) 1 ea QS N/A 07/06/17 08:00 08/05/17 07:59 07/22/17 23:32 1 EA Glucose (Glucose 40% Gel) 15-30 GRAMS 15 GRAMS... UD PRN PO 07/06/17 04:15 08/05/17 04:14 Glucose (Glucose Chew Tab) 4-8 Tablets 4 Tabl... UD PRN PO 07/06/17 04:15 08/05/17 04:14 Dextrose (Dextrose 50% 50ML Syringe) 25-50ML OF 50% DW IV FOR... UD PRN IV 07/06/17 04:15 08/05/17 04:14 07/06/17 05:40 25 ML Glucagon (Glucagon Inj) 1 mg UD PRN SQ 07/06/17 04:15 08/05/17 04:14 Heparin Sodium (Porcine) (Heparin 100 Unit/ml 5ml Flush) 5 ml PRN PRN IV 07/07/17 02:45 08/06/17 02:44 Future hold 07/21/17 05:21 5 ML Ondansetron HCl (Zofran Inj) 4 mg Q4H PRN IV 07/11/17 03:00 08/10/17 02:59 07/17/17 21:50 4 MG Prochlorperazine Edisylate 5 mg/ Syringe 5 ml @ 5 mls/min Q4H PRN IV 07/11/17 14:00 08/10/17 13:59 Lactulose (Chronulac Syrup) 30 gm Q4H PRN PO 07/11/17 16:45 08/10/17 16:44 Miscellaneous (Fentanyl Patch Remove & Waste) 1 ea Q3D@0859 N/A 07/22/17 08:59 08/21/17 08:58 07/22/17 08:14 1 EA Fentanyl (Duragesic Patch) 25 mcg Q3D@0900 TD 07/22/17 09:00 08/05/17 08:59 07/22/17 09:00 25 MCG Ioversol (Optiray 320) 100 ml UD PRN IV 07/19/17 10:45 07/23/17 10:44 Insulin Glargine (Lantus Solostar Pen) 6 units HS SC 07/20/17 21:00 08/19/17 20:59 07/22/17 23:29 6 UNITS Ergocalciferol (Vitamin D Cap) 50,000 interunit Q7D@0900 PO 07/20/17 09:00 08/19/17 08:59 07/20/17 09:32 50,000 INTERUNIT Vancomycin HCl (Consult) 1 ea UD PRN N/A 07/21/17 16:00 08/20/17 15:59 Miscellaneous Information (Pharmacy Tpn/ Ppn Consult Active) 1 ea UD PRN N/A 07/21/17 17:00 08/20/17 16:59 Hydralazine HCl (HydrALAZINE INJ) 5 mg Q4 PRN IV. 07/21/17 17:15 08/20/17 17:14 Furosemide 20 mg/ Syringe 2 ml @ 4 mls/min QAM IV 07/22/17 09:00 08/21/17 08:59 07/22/17 08:13 4 MLS/MIN Hydralazine HCl (HydrALAZINE INJ) 5 mg TID IV. 07/21/17 21:00 08/20/17 20:59 07/22/17 20:10 5 MG Methylprednisolone Sodium Succinate 40 mg/Syringe 0.64 ml @ 1.5 mls/min DAILY IV 07/22/17 09:00 08/21/17 08:59 07/22/17 08:15 1.5 MLS/MIN Fentanyl Citrate (Fentanyl Inj) Fentanyl 25-50 mcg... Q4H PRN IV 07/21/17 20:45 08/04/17 20:44 07/23/17 03:21 50 MCG Metoprolol Tartrate (Lopressor Iv) 5 mg Q6 IV. 07/22/17 12:00 08/20/17 17:59 07/23/17 06:04 5 MG Metronidazole 500 mg/Prmx 100 ml @ 100 mls/hr Q8@04,12,20 IV 07/22/17 12:00 08/05/17 11:59 07/23/17 03:37 100 MLS/HR Nutrition (Parenteral) 0 ml @ 0 mls/hr TODAY@1600 IV 07/22/17 16:00 07/23/17 15:59 07/22/17 16:22 0 MLS/HR Dextrose 1,000 ml @ 0 mls/hr Q0M PRN IV 07/22/17 16:00 08/21/17 15:59 Cefepime HCl (Consult) 1 ea UD PRN N/A 07/22/17 11:30 08/21/17 11:29 Cefepime HCl 500 mg/Syringe 5.5 ml @ 5.5 mls/min DAILY@1600 IV 07/23/17 16:00 08/02/17 15:59 Insulin Aspart (novoLOG ASPART) SLIDING SCALE G... Q6 SC 07/22/17 18:00 08/21/17 17:59 07/23/17 06:13 3 UNITS Objective Physical Exam General Appearance: WD/WN, no apparent distress Eyes: normal inspection, EOMI ENT: hearing grossly normal Respiratory/Chest: lungs clear, normal breath sounds, no respiratory distress Cardiovascular: no gallop, no murmur, + tachycardia Abdomen: non tender, soft, + pertinent finding (+hypoactive bowel sounds; dressing in place over anterior aspect, in tact.) Extremities: normal inspection (with the exception of left hand cellulitis, stable since yesterday, mild tenderness generally over entire hand) Neurologic/Psychiatric: alert, normal mood/affect, oriented x 3 Laboratory Results 07/23/17 05:54 07/23/17 05:54 Test 07/22/17 10:27 07/23/17 05:46 07/23/17 05:54 Prothrombin Time 11.8 SECONDS (9.0-12.0) Prothromb Time International Ratio 1.1 (0.9-1.1) Activated Partial Thromboplast Time 37.4 SECONDS (21.0-31.0) Partial Thromboplastin Ratio 1.4 Bedside Glucose 255 mg/dl (70-99) Red Blood Count 3.43 M/uL (4.7-6.1) Mean Corpuscular Volume 88.9 fL (80-100) Mean Corpuscular Hemoglobin 29.7 pg (25-34) Mean Corpuscular Hemoglobin Concent 33.4 g/dl (32-36) RDW Standard Deviation 59.6 fL (36.4-46.3) RDW Coefficient of Variation 20.7 % (11.5-14.5) Mean Platelet Volume 10.1 fL (7.4-10.4) Nucleated RBC Absolute Count (auto) 0.27 K/uL (0-0) Nucleated Red Blood Cells % 2.7 % Platelet Estimate DECREASED Anion Gap 7.0 mmol/L (3-11) Est Creatinine Clear Calc Drug Dose 15.6 ml/min Estimated GFR () 13.2 Estimated GFR (Non- 11.4 BUN/Creatinine Ratio 14.5 (10-20) Calcium Level 7.3 mg/dl (8.5-10.1) Phosphorus Level 4.2 mg/dl (2.5-4.9) Magnesium Level 2.5 mg/dl (1.8-2.4) Triglycerides Level 236 mg/dl (0-150) Random Vancomycin Level 14.9 mcg/ml Assessment and Plan Mr. Christy is a 61 yo M with PMH of ESRD on HD, RCC, DMII. Admitted for L hand cellulitis having failed outpatient management. Abdominal pain, found to have incidental rectus sheath hematoma, C.diff positive colitis and subsequent bowel perforation on 07/21, now s/p colectomy, anemia, and bilateral pneumonia on imaging. Abdominal pain, c diff colitis, perforated jejunal bowel, s/p colectomy, rectus sheath hematoma: Diarrhea - C.Diff - remains afebrile - C.diff positive - unable to take oral vanc at this time, is on IV vanc for other issue (hand cellulitis), and may receive some benefit. However, necessary to treat perforation at this time, dialysis will aid the anasarca, and hopefully resumption of oral vanc can be done MARTHA. - Adequate pain control with fentanyl patch 25-50 mcg q4h POD #2 from small bowel resection due to jejunal diverticular perforation. - Per surgery, plan on discontinuing ng tube later today or possibly tomorrow, depending on development of flatus and if does not develop ileus. Follow. Renal cell cancer - Cabozantinib held due to likely inciting his small intestinal inflammation/ perforation ESRD HD secondary to RCC/ s/p left nephrectomy - Nephrology Consulted - Receives HD on Tuesdays, and Saturdays - unable to receive dialysis yesterday due to technical problems, US doppler shows sign stenosis. Team is considering other port. Treasury Associate 5.0 today. - hypocalcemia; Vit D level of 9.4, supplement with ergocalciferol [id number] indefinitely plus daily D3 2000 when patient resumes oral intake - Recheck levels in 12 weeks Left hand cellulitis - persists, stable - ID consulted. Recommendations: - on IV vanc - consider repeat MRI for osteomyelitis of 4th metacarpal - warm compresses to help with pain - Recommend wound care on discharge SOB, hypoxia - pulmonary edema vs pneumonitis - Has pulmonary edema, nursing titrated flow from 12 to 6 L overnight, oxygenating currently at 98. Follow. 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 May consider increasing frequency of fentanyl dosage (currently at 25-50 mcg q4) to q2? Or consider morphine IV. DMII - 7 units of Lantus with sliding scale - due to abdominal pain, pt refusing insulin at this time. - BSG AC HS Anemia - Hgb today stable 9.0 - nephrology -> continue epogen 85465 units and venofer 100mg - continue to monitor HTN/hyperlipidemia - asa 81 mg DCd while NPO: if prolonged NPO, consider aspirin suppositories in 48 hours - furosemide 20 IV daily; check daily BMP and monitor status- - hydralazine 100 mg tid-->converted to 5 TID scheduled, hold sys <120 - amlodipine 10 mg daily--> converted to 5 hydralazine prn for systolic >180 - metoprolol 150 mg bid-->IV 2.5 q6 - lisinopril 40 mg daily held while pressures are assessed in ICU. - simvastatin 20 mg daily DCd while NPO - I&O and daily weights BPH - continue tamsulosin 0.4 mg (held while in NPO) CKD Bone Mineral Disease - Continue oral Calcitriol - Continue CaCO3 500 mg with meals - Above held for NPO status in ICU DVT Prophylaxis: SCDs Code: Full Disposition: ICU post-colectomy. Resident Tracking Resident Involvement: Resident Care Provided Care Provided: Adult Hospital Medicine
--- NOTE | 2017-07-23 08:10 | Surgery Progress Note ---
Surgery Progress Note Date of Service Jul 23, 2017. Subjective Post OP Day: 2 + diet (ng in place), No complaints, No ambulating, No bowel movement, No flatus Objective Vital Signs: Date Time Temp Pulse Resp B/P (MAP) Pulse Ox O2 Delivery O2 Flow Rate FiO2 07/23/17 06:04 94 159/79 07/23/17 05:00 102 16 166/81 (109) 96 07/23/17 04:45 36.7 103 14 141/68 (92) 90 07/23/17 04:30 100 16 161/74 (103) 91 07/23/17 04:15 36.8 96 13 159/74 (102) 96 07/23/17 04:00 95 12 152/73 (99) 98 Oxymask 10.0 07/23/17 04:00 Oxymask 12.0 07/23/17 03:45 36.6 98 11 151/72 (98) 93 07/23/17 03:35 36.8 96 16 137/63 93 07/23/17 03:30 36.8 103 16 150/70 (96) 94 07/23/17 03:15 106 10 153/73 (99) 94 07/23/17 03:00 105 16 157/75 (102) 97 07/23/17 02:00 100 18 156/75 (102) 93 Oxymask 12.0 07/23/17 01:00 103 16 158/74 (102) 96 07/23/17 00:41 36.6 102 16 137/71 98 07/23/17 00:22 36.8 101 18 140/71 97 07/23/17 00:15 101 16 161/74 (103) 98 07/23/17 00:00 36.6 98 15 151/70 (97) 97 Oxymask 12.0 07/22/17 23:59 Oxymask 12.0 07/22/17 23:45 99 14 142/68 (92) 96 07/22/17 23:41 36.6 107 16 121/61 95 07/22/17 23:32 107 138/72 07/22/17 23:30 107 13 151/71 (97) 96 07/22/17 23:15 108 14 147/71 (96) 97 07/22/17 23:13 109 17 137/70 (92) 97 07/22/17 23:11 36.8 110 18 137/70 97 12.0 07/22/17 23:00 109 20 148/70 (96) 96 07/22/17 22:00 105 15 144/67 (92) 96 07/22/17 21:00 109 16 146/68 (94) 97 07/22/17 21:00 109 16 146/68 (94) 97 07/22/17 20:00 37.1 113 14 147/69 (95) 90 Oxymask 12.0 07/22/17 20:00 113 14 147/69 (95) 90 07/22/17 20:00 Oxymask 12.0 07/22/17 19:00 108 17 147/70 (95) 91 07/22/17 18:17 113 07/22/17 18:00 113 18 136/64 (88) 92 Oxymask 12.0 07/22/17 16:00 37.0 113 18 139/68 (91) 93 Oxymask 12.0 07/22/17 16:00 Oxymask 12.0 07/22/17 14:00 115 18 133/68 (89) 92 Oxymask 12.0 07/22/17 13:00 37.0 120 16 139/69 91 07/22/17 12:39 113 07/22/17 12:00 37.0 113 18 137/65 (89) 92 Oxymask 12.0 07/22/17 12:00 Oxymask 12.0 07/22/17 11:30 37.0 113 16 132/68 (89) 95 07/22/17 10:45 37.1 115 18 128/62 (84) 94 07/22/17 10:30 37.1 117 18 113/61 (78) 94 07/22/17 10:10 37.5 120 18 135/69 93 07/22/17 10:00 123 18 119/75 (90) 94 General Appearance: WD/WN, no apparent distress, + pertinent finding (face mask O2) Head: normocephalic, atraumatic Neck: supple, trachea midline Respiratory/Chest: chest non-tender, + decreased breath sounds Cardiovascular: + tachycardia Abdomen: soft, + abnormal bowel sounds (quiet), + distended, + tenderness Incision(s): clean, dry, intact Extremities: normal inspection, + swelling Laboratory Results: Results Past 24 Hours Test 07/22/17 10:27 07/22/17 12:42 07/22/17 16:27 07/22/17 20:57 Range/Units Prothrombin Time 11.8 9.0-12.0 SECONDS Prothromb Time International Ratio 1.1 0.9-1.1 Activated Partial Thromboplast Time 37.4 21.0-31.0 SECONDS Partial Thromboplastin Ratio 1.4 Bedside Glucose 117 136 70-99 mg/dl Hemoglobin 8.0 14.0-18.0 g/dL Hematocrit 24.1 42-52 % Test 07/22/17 23:21 07/23/17 01:41 07/23/17 05:46 07/23/17 05:54 Range/Units Bedside Glucose 290 255 70-99 mg/dl Hemoglobin 9.2 10.2 14.0-18.0 g/dL Hematocrit 27.5 30.5 42-52 % White Blood Count 10.01 4.8-10.8 K/uL Red Blood Count 3.43 4.7-6.1 M/uL Mean Corpuscular Volume 88.9 80-100 fL Mean Corpuscular Hemoglobin 29.7 25-34 pg Mean Corpuscular Hemoglobin Concent 33.4 32-36 g/dl RDW Standard Deviation 59.6 36.4-46.3 fL RDW Coefficient of Variation 20.7 11.5-14.5 % Platelet Count 90 130-400 K/uL Mean Platelet Volume 10.1 7.4-10.4 fL Nucleated RBC Absolute Count (auto) 0.27 0-0 K/uL Nucleated Red Blood Cells % 2.7 % Platelet Estimate DECREASED Sodium Level 138 136-145 mmol/L Potassium Level 4.8 3.5-5.1 mmol/L Chloride Level 104 98-107 mmol/L Carbon Dioxide Level 26 21-32 mmol/L Anion Gap 7.0 3-11 mmol/L Blood Urea Nitrogen 73 7-18 mg/dl Creatinine 5.00 0.60-1.40 mg/dl Est Creatinine Clear Calc Drug Dose 15.6 ml/min Estimated GFR () 13.2 Estimated GFR (Non- 11.4 BUN/Creatinine Ratio 14.5 10-20 Random Glucose 286 70-99 mg/dl Calcium Level 7.3 8.5-10.1 mg/dl Phosphorus Level 4.2 2.5-4.9 mg/dl Magnesium Level 2.5 1.8-2.4 mg/dl Triglycerides Level 236 0-150 mg/dl Random Vancomycin Level 14.9 mcg/ml Assessment & Plan s/p ex lap and SB resection -ngt with minimal drainage but no flatus yet, likely out in AM -no BS yet -will need dialysis today -TPN -IV abx -OOB to chair
[2017-07-23] MEDS: HydrALAZINE HCL 20 MG/ML VIAL IV. SCH ×3 (09:00→20:56)
[2017-07-23] MEDS: LISINOPRIL 40 MG TAB PO SCH (09:00)
[2017-07-23] MEDS: LACTOBACILLUS ACIDOPHILUS (FLORANEX) TAB PO SCH ×3 (09:00→23:26)
[2017-07-23] MEDS: CHECK FENTANYL PATCH PLACEMENT SCH ×2 (09:05→14:47)
[2017-07-23] MEDS: METHYLPREDNISOLONE IV 40 MG in SYRINGE 0 ML IV SCH (09:21)
[2017-07-23] MEDS: FUROSEMIDE INJ 20 MG in SYRINGE 0 ML IV SCH (09:21)
[2017-07-23] MEDS ORDERED: ALBUMIN HUMAN 25% 12.5 GM/50 ML VIAL IV ONE (09:30)
[2017-07-23] MEDS ORDERED: EPOETIN ALFA 10,000 UNITS/ML VIAL IV. ONE (09:30)
--- NOTE | 2017-07-23 09:32 | DIAGNOSTIC IMAGING REPORT ---
CHEST ONE VIEW PORTABLE CLINICAL HISTORY: New left IJ dialysis catheter placed tube position COMPARISON STUDY: 07/21/2017 FINDINGS: Right central catheter in superior vena cava. Interval replacement of a left internal jugular venous catheter. Tip of the catheter is now at the juncture of the left jugular and left subclavian veins. No evidence pneumothorax. Bibasilar parenchymal infiltrative and congestive change which is unaltered. No evidence pneumothorax. IMPRESSION: 1. Interval replacement of the patient's left internal jugular catheter with a larger caliber line now present at the juncture of the jugular vein and left subclavian vein. 2. No evidence pneumothorax. 3. All additional findings are stable compared to the prior exam. 4. Nasogastric catheter within the gastric fundus The above report was generated using voice recognition software. It may contain grammatical, syntax or spelling errors. Electronically signed by: Kirill Rainey M.D. 07/23/2017 9:30 AM Dictated Date/Time: 07/23/2017 9:28 AM
[2017-07-23] MEDS ORDERED: EPOETIN ALFA INJ 8,000 UNITS in SYRINGE 0 ML IV. ONE (10:00)
--- NOTE | 2017-07-23 10:08 | Procedure Note ---
Procedure Note Procedure Date Jul 23, 2017. Procedure Description Procedure Name: Tripple Lumen Dialysis catheter/MAHURKAR CATHETER. Central Line Procedure time out: side/site verified, patient ID confirmed, sterile procedure used Consent obtained: written Performed by: attending Indications: other (Dialysis catheter for the purpose of Dialysis.) Contraindications: coagulopathy Prep: chlorhexadine prep, sterile drape, sterile procedures used Central line lumen: Tripple Lumen / MAHURKAR Catheter for Dialysis. Central line location: internal jugular (L) (The patient had left IJ tripple lumen catheter, which was removed under sterile catheter over the wire and 12 F/ 13 cm dialysis / MAHURKAR catheter was placed over the wire under strict sterile condition. Good blood return. CXR was without any complicatione and the tip is at the junction of left IJ and sup VC. No neumothorax.), femoral (R) ( patient tolerated the procedure very well.) Additional details: percutaneous placement, line sutured, good blood return Complications: none Patient tolerated procedure: well Post-procedure vital signs: reviewed and stable Comments: This catheter was changed over the wire.
--- NOTE | 2017-07-23 11:24 | Nephrology Progress Note ---
Nephrology Progress Note Date of Service Jul 23, 2017. Chief Complaint Provide inpatient HD and assist w/ medical management of this patient w/ ESRD Subjective Mr. Christy was seen & examined in the ICU this am in preparation for HD. He was awake and alert breathing comfortably on O2 at 6 L / min NC. His only complaint is incisional discomfort. Review of Systems Constitutional: No fever Cardiovascular: No chest pain Respiratory: No dyspnea at rest Abdomen: No pain, No nausea, No vomiting Extremities: + leg edema A complete review of systems was performed. Pertinent positives are noted above. All other systems are negative. Vital Signs Last 8 Hrs Date Time Temp Pulse Resp B/P (MAP) Pulse Ox O2 Delivery O2 Flow Rate FiO2 07/23/17 10:45 103 156/79 07/23/17 10:30 100 153/75 07/23/17 10:15 100 16 158/75 (102) 99 Nasal Cannula 6.0 07/23/17 10:10 36.9 102 158/75 (102) 07/23/17 10:05 103 15 168/80 (109) 98 Nasal Cannula 6.0 07/23/17 08:00 36.5 113 13 147/59 (88) 93 Oxymask 6.0 07/23/17 07:00 99 12 167/82 (110) 97 Oxymask 6.0 07/23/17 06:04 94 159/79 07/23/17 05:00 102 16 166/81 (109) 96 07/23/17 04:45 36.7 103 14 141/68 (92) 90 07/23/17 04:30 100 16 161/74 (103) 91 07/23/17 04:15 36.8 96 13 159/74 (102) 96 07/23/17 04:00 95 12 152/73 (99) 98 Oxymask 10.0 07/23/17 04:00 Oxymask 12.0 07/23/17 03:45 36.6 98 11 151/72 (98) 93 07/23/17 03:35 36.8 96 16 137/63 93 07/23/17 03:30 36.8 103 16 150/70 (96) 94 Last Recorded Weight Weight (Kilograms): 83.500 Physical Exam General Appearance: + pertinent finding (appears acutely ill in ICU) Head: normocephalic, atraumatic Eyes: PERRL, EOMI Neck: no adenopathy Respiratory/Chest: lungs clear, no respiratory distress Cardiovascular: + tachycardia Abdomen/GI: soft (no bowel sounds) Extremities/Musculoskelatal: + pertinent finding (AVF w/ soft bruit) Neurologic/Psych: alert, oriented x 3 Family History Cervical cancer Diabetes mellitus Heart disease Hypertension Myocardial infarction Pancreatic cancer Prostate cancer Negative for CKD/ESRD Social History Smokeless Tobacco Use: No Alcohol Use: none Drug Use: none Marital Status: single Housing Status: lives alone Occupation: disabled Single, retired. Formerly worked for [employer]. Never a smoker. Laboratory Results Past 24 Hours 07/22/17 20:57 07/23/17 01:41 07/23/17 05:54 07/23/17 05:54 Test 07/22/17 12:42 07/22/17 16:27 07/22/17 23:21 07/23/17 05:46 Bedside Glucose 117 mg/dl (70-99) 136 mg/dl (70-99) 290 mg/dl (70-99) 255 mg/dl (70-99) Test 07/23/17 05:54 Red Blood Count 3.43 M/uL (4.7-6.1) Mean Corpuscular Volume 88.9 fL (80-100) Mean Corpuscular Hemoglobin 29.7 pg (25-34) Mean Corpuscular Hemoglobin Concent 33.4 g/dl (32-36) RDW Standard Deviation 59.6 fL (36.4-46.3) RDW Coefficient of Variation 20.7 % (11.5-14.5) Mean Platelet Volume 10.1 fL (7.4-10.4) Nucleated RBC Absolute Count (auto) 0.27 K/uL (0-0) Nucleated Red Blood Cells % 2.7 % Platelet Estimate DECREASED Anion Gap 7.0 mmol/L (3-11) Est Creatinine Clear Calc Drug Dose 15.6 ml/min Estimated GFR () 13.2 Estimated GFR (Non- 11.4 BUN/Creatinine Ratio 14.5 (10-20) Calcium Level 7.3 mg/dl (8.5-10.1) Phosphorus Level 4.2 mg/dl (2.5-4.9) Magnesium Level 2.5 mg/dl (1.8-2.4) Triglycerides Level 236 mg/dl (0-150) Random Vancomycin Level 14.9 mcg/ml Allergies Coded Allergies: Iodinated Diagnostic Agents (Verified Allergy, Unknown, oil based, severe headaches, 06/20/17) EVENT OCCURED IN 1971, PT STATES HE HAS HAD 3 DIFFERENT WATER BASED IVP DYES WITH NO ISSUE Medications Current Inpatient Medications Medications (Trade) Dose Ordered Sig/Edward Route Start Time Stop Time Status Last Admin Dose Admin Lactobacillus Acidophilus (Floranex Tab) 2 tab TID PO 07/06/17 09:00 08/05/17 08:59 07/21/17 00:20 2 TAB Lisinopril (Zestril Tab) 40 mg DAILY PO 07/06/17 09:00 08/05/17 08:59 07/20/17 09:32 40 MG Miscellaneous Information (Check Fentanyl Patch Placement) 1 ea QS N/A 07/06/17 08:00 08/05/17 07:59 07/23/17 09:05 1 EA Glucose (Glucose 40% Gel) 15-30 GRAMS 15 GRAMS... UD PRN PO 07/06/17 04:15 08/05/17 04:14 Glucose (Glucose Chew Tab) 4-8 Tablets 4 Tabl... UD PRN PO 07/06/17 04:15 08/05/17 04:14 Dextrose (Dextrose 50% 50ML Syringe) 25-50ML OF 50% DW IV FOR... UD PRN IV 07/06/17 04:15 08/05/17 04:14 07/06/17 05:40 25 ML Glucagon (Glucagon Inj) 1 mg UD PRN SQ 07/06/17 04:15 08/05/17 04:14 Heparin Sodium (Porcine) (Heparin 100 Unit/ml 5ml Flush) 5 ml PRN PRN IV 07/07/17 02:45 08/06/17 02:44 Future hold 07/21/17 05:21 5 ML Ondansetron HCl (Zofran Inj) 4 mg Q4H PRN IV 07/11/17 03:00 08/10/17 02:59 07/17/17 21:50 4 MG Prochlorperazine Edisylate 5 mg/ Syringe 5 ml @ 5 mls/min Q4H PRN IV 07/11/17 14:00 08/10/17 13:59 Lactulose (Chronulac Syrup) 30 gm Q4H PRN PO 07/11/17 16:45 08/10/17 16:44 Miscellaneous (Fentanyl Patch Remove & Waste) 1 ea Q3D@0859 N/A 07/22/17 08:59 08/21/17 08:58 07/22/17 08:14 1 EA Fentanyl (Duragesic Patch) 25 mcg Q3D@0900 TD 07/22/17 09:00 08/05/17 08:59 07/22/17 09:00 25 MCG Insulin Glargine (Lantus Solostar Pen) 6 units HS SC 07/20/17 21:00 08/19/17 20:59 07/22/17 23:29 6 UNITS Ergocalciferol (Vitamin D Cap) 50,000 interunit Q7D@0900 PO 07/20/17 09:00 08/19/17 08:59 07/20/17 09:32 50,000 INTERUNIT Vancomycin HCl (Consult) 1 ea UD PRN N/A 07/21/17 16:00 08/20/17 15:59 Miscellaneous Information (Pharmacy Tpn/ Ppn Consult Active) 1 ea UD PRN N/A 07/21/17 17:00 08/20/17 16:59 Hydralazine HCl (HydrALAZINE INJ) 5 mg Q4 PRN IV. 07/21/17 17:15 08/20/17 17:14 Furosemide 20 mg/ Syringe 2 ml @ 4 mls/min QAM IV 07/22/17 09:00 08/21/17 08:59 07/23/17 09:21 4 MLS/MIN Hydralazine HCl (HydrALAZINE INJ) 5 mg TID IV. 07/21/17 21:00 08/20/17 20:59 07/22/17 20:10 5 MG Methylprednisolone Sodium Succinate 40 mg/Syringe 0.64 ml @ 1.5 mls/min DAILY IV 07/22/17 09:00 08/21/17 08:59 07/23/17 09:21 1.5 MLS/MIN Fentanyl Citrate (Fentanyl Inj) Fentanyl 25-50 mcg... Q4H PRN IV 07/21/17 20:45 1/12/18 20:44 07/23/17 09:36 25 MCG Metoprolol Tartrate (Lopressor Iv) 5 mg Q6 IV. 07/22/17 12:00 08/20/17 17:59 07/23/17 06:04 5 MG Metronidazole 500 mg/Prmx 100 ml @ 100 mls/hr Q8@04,12,20 IV 07/22/17 12:00 08/05/17 11:59 07/23/17 03:37 100 MLS/HR Nutrition (Parenteral) 0 ml @ 0 mls/hr TODAY@1600 IV 07/22/17 16:00 07/23/17 15:59 07/22/17 16:22 0 MLS/HR Dextrose 1,000 ml @ 0 mls/hr Q0M PRN IV 07/22/17 16:00 08/21/17 15:59 Cefepime HCl (Consult) 1 ea UD PRN N/A 07/22/17 11:30 08/21/17 11:29 Cefepime HCl 500 mg/Syringe 5.5 ml @ 5.5 mls/min DAILY@1600 IV 07/23/17 16:00 08/02/17 15:59 Insulin Aspart (novoLOG ASPART) SLIDING SCALE G... Q6 SC 07/22/17 18:00 08/21/17 17:59 07/23/17 06:13 3 UNITS Impression (1) Cellulitis of left hand (2) ESRD (end stage renal disease) on dialysis (3) Renal cell carcinoma (4) Anemia (5) Diabetes type 2, controlled Mr. Christy is a 61-year-old male with ESRD and metastatic RCC. He underwent left nephrectomy in 2015. Mr. Christy did not tolerate Sutent due to high grade proteinuria, Opdivo caused arthralgia, colitis and possible pneumonitis. He was most recently treated w/ Cabometyx. Mr. Christy was admitted with persistent soft tissue infection of the left hand. This improved with antibiotics. He now has a possible evolving pneumonia. Current antibiotics include Zosyn and Vancomycin. Mr. Christy developed abdominal pain associated with an abdominal wall hematoma and tested positive for C. Difficile colitis. On 07/21 he was diagnosed with intestinal perforation and required emergency laparotomy Recommendations END STAGE RENAL DISEASE: -- LUE AVF doppler report reviewed. High grade venous stenosis identified -- Doppler results discussed w/ ICU team. Will ask Dr. Grubbs to change R IJ CVC to temporary dialysis catheter -- Will provide acute dialysis today. Orders entered into EMR and HD RN notified ANEMIA: -- Will provide IDALIA w/ HD treatments HYPERTENSION: -- Blood pressure is currently well controlled. Continue current antihypertensive regimen. No change at present. RENAL CELL CA: -- Cabozantinib is on hold. 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 This was necessary to perform physical exam, discuss management w/ ICU team..
[2017-07-23] MEDS ORDERED: PHARMACY GLYCEMIC MGMT CONSULT PRN (13:14)
--- NOTE | 2017-07-23 13:19 | Pharmacy Progress Note ---
Pharmacy Antibiotic Prog Note Date of Service Jul 23, 2017. Subjective The patient is currently receiving vancomycin prn HD/levels The patient is currently on day # 11 of vancomycin IV therapy. Objective Height (Feet): 5 Height (Inches): 10.00 Weight (Kilograms): 83.500 Lab Results (24hrs): Test 07/23/17 01:41 07/23/17 05:46 07/23/17 05:54 07/23/17 12:49 Hemoglobin 9.2 g/dL (14.0-18.0) 10.2 g/dL (14.0-18.0) Hematocrit 27.5 % (42-52) 30.5 % (42-52) Bedside Glucose 255 mg/dl (70-99) 184 mg/dl (70-99) White Blood Count 10.01 K/uL (4.8-10.8) Red Blood Count 3.43 M/uL (4.7-6.1) Mean Corpuscular Volume 88.9 fL (80-100) Mean Corpuscular Hemoglobin 29.7 pg (25-34) Mean Corpuscular Hemoglobin Concent 33.4 g/dl (32-36) RDW Standard Deviation 59.6 fL (36.4-46.3) RDW Coefficient of Variation 20.7 % (11.5-14.5) Platelet Count 90 K/uL (130-400) Mean Platelet Volume 10.1 fL (7.4-10.4) Nucleated RBC Absolute Count (auto) 0.27 K/uL (0-0) Nucleated Red Blood Cells % 2.7 % Platelet Estimate DECREASED Sodium Level 138 mmol/L (136-145) Potassium Level 4.8 mmol/L (3.5-5.1) Chloride Level 104 mmol/L (98-107) Carbon Dioxide Level 26 mmol/L (21-32) Anion Gap 7.0 mmol/L (3-11) Blood Urea Nitrogen 73 mg/dl (7-18) Creatinine 5.00 mg/dl (0.60-1.40) Est Creatinine Clear Calc Drug Dose 15.6 ml/min Estimated GFR () 13.2 Estimated GFR (Non- 11.4 BUN/Creatinine Ratio 14.5 (10-20) Random Glucose 286 mg/dl (70-99) Calcium Level 7.3 mg/dl (8.5-10.1) Phosphorus Level 4.2 mg/dl (2.5-4.9) Magnesium Level 2.5 mg/dl (1.8-2.4) Triglycerides Level 236 mg/dl (0-150) Random Vancomycin Level 14.9 mcg/ml Assessment & Plan Assessment * 61 yo M with multiple medical issues including but not limited to GI perforation s/p emergent surgery, C. diff colitis, hand cellulitis ? 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 Patient is currently receiving cefepime IV, vancomycin IV, and metronidazole IV. Vancomycin po on hold 2nd GI perforation. * ESRD on chronic HD as outpatient - receiving HD today. Likely full 3-4 hours as HD was started ~1015 and is ongoing at this time. Vancomycin * Goal vancomycin pre-HD levels 15-20 mcg/mL * Level of 14.9 mcg/mL is very slightly subtherapeutic. * Yesterday, 750 mg dose (without HD) caused level to increase by 5.3 mcg/mL - this dose post-HD today may be inadequate to ensure therapeutic trough in 2 days assuming 30-40% removal of vancomycin during HD today * Random level w AM labs prior to next anticipated HD session in 2 days Plan * Vancomycin 1000 mg IV x1 after HD today * Random level w AM labs / Pharmacy will continue to follow and will adjust dose/frequency as necessary. Thank you
[2017-07-23] MEDS ORDERED: VANCOMYCIN INJ 1,000 MG in SODIUM CHLORIDE 0.9% 250ML 250 ML IV SCH (14:15)
--- NOTE | 2017-07-23 14:17 | Pharmacy Progress Note ---
Glycemic Control Intl Consult Date of Service Jul 23, 2017. Scope Pharmacist consulted by Dr Zepeda on 07/23 for glycemic control and to write orders per [facility] inpatient glycemic control protocol. Pharmacist also consulted for parenteral nutrition management. Objective Weight (Kilograms): 83.500 Accuchecks BSG (last 24hrs): Test 07/22/17 16:27 07/22/17 23:21 07/23/17 05:46 07/23/17 05:54 Bedside Glucose 136 mg/dl (70-99) 290 mg/dl (70-99) 255 mg/dl (70-99) Random Glucose 286 mg/dl (70-99) Test 07/23/17 12:49 Bedside Glucose 184 mg/dl (70-99) Laboratory Data (last 24hrs) Test 07/23/17 05:54 Anion Gap 7.0 mmol/L BUN/Creatinine Ratio 14.5 Blood Urea Nitrogen 73 mg/dl Creatinine 5.00 mg/dl Potassium Level 4.8 mmol/L Sodium Level 138 mmol/L White Blood Count 10.01 K/uL Recent Pertinent Medications Outpatient Anti-diabetic Regimen: * Lantus 14 units qHS * NPH? TID using a carb ratio of 1:10 * A1c = 6.4 % 05/22/17 The patient is currently receiving: * Basal insulin: Lantus 6 units every 24 hours - did not receive a dose on 07/21 * Correctional Insulin: Novolog Correction per scale ACHS Goal Range: Low 110 mg/dL - High 180 mg/dL Correction Factor: 25 mg/dL/unit * Prandial insulin: Per carb ratio of 1 unit per 10 grams CHO consumed Risk Factors for Insulin Resistance: * Steroids: Solu-medrol 40 mg IV daily * Recent Surgery: POD #2 ex lap w/ bowel resection * Diet: NPO, TPN (150 gm dextrose) Assessment & Plan ASSESSMENT: * Mr. Christy is a 61 y/o male initially admitted on 07/06 for worsening hand cellulitis and GI bleed. He has had a complicated hospital course, with bowel perforation and subsequent ex lap w/ bowel resection on 07/21. Pertinent PMH includes type 2 diabetes and ESRD on dialysis. * TPN was started yesterday because he was expected to be NPO for a prolonged period of time. This was started with a standard initial amount of dextrose but BSGs have increased significantly with this amount. * Within the past 24 hours, he received 15 units of insulin with BSGs improving but still above goal * Since the steroids mainly affect postprandial BSGs, will plan to continue with the basal insulin but add a larger amount to the TPN. Will start with a standard of 0.1 units/gram dextrose and titrate upwards. * Regarding the parenteral nutrition for today, will plan to increase the amino acids to goal but keep the dextrose the same until BSGs are further improved. Continuing minimum volume since patient is a dialysis patient. PLAN FOR INPATIENT GLYCEMIC CONTROL: * Continue Lantus 6 units qHS * Continue Novolog q6h * Change goal to 120-160 mg/dL (to keep BSGs in 140-180 goal range) * Continue CF 25 mg/dL/unit * Continue CR 1 unit per 10 gm CHO (will not need now but will keep for when diet resumes) * Add 15 units of insulin to today's TPN PLAN FOR PARENTERAL NUTRITION: For day 2 of PN administration, the following will be ordered: Macronutrients Amino acids 125 grams/day Dextrose 150 grams/day Lipids 0 grams/day Micronutrients Sodium chloride 40 mEq Sodium acetate 40 mEq Calcium gluconate 2.3 mEq Multivitamins 10 mL Trace Elements 1 mL Regular insulin 15 units Total volume 1516 mL (minimum volume) to be infused over 24 hrs will provide 1010 kcal/day Labs to be ordered per PN order protocol Thank you.
[2017-07-23] MEDS: CEFEPIME IV 500 MG in SYRINGE 0 ML IV SCH (14:46)
[2017-07-23] MEDS ORDERED: CUSTOM CENTRAL PN 1 BAG IV SCH (16:00)
--- NOTE | 2017-07-23 18:55 | Palliative Care Progress Note ---
Palliative Care Progress Note Date of Service Jul 23, 2017. Subjective Pt evaluation today including: chart review Events of past few days noted. Pt is NPO and there is concern that he is not getting his methadone. He is at risk of going through withdraw on day 3. Methadone can be crushed and slurried , it can be given SL. It can also be given SQ at 50% of PO dose if available. I do not recommend using IV route - higher risk of QT prolongation. Please call me at [phone] with any questions. 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
[2017-07-23] MEDS ORDERED: NURSING VERBAL MED ORDER ONE (19:45)
[2017-07-23] MEDS: METHADONE HCL 10 MG TAB PO SCH (20:56)
[2017-07-23] MEDS: INSULIN GLARGINE SOLOSTAR 100 UNITS/ML 3 ML PEN SC SCH (21:14)
[2017-07-24] VITALS (10 sets, daily range): BP systolic 147–167; BP diastolic 70–82; PULSE 96–107; TEMP 36.6–37; O2SAT 90–96
[2017-07-24] MEDS: METOPROLOL TARTRATE 1 MG/ML VIAL IV. SCH ×4 (00:09→17:19)
[2017-07-24] MEDS: INSULIN ASPART 100 UNITS/ML 3 ML PEN SC SCH ×4 (00:24→17:26)
[2017-07-24] MEDS: CHECK FENTANYL PATCH PLACEMENT SCH ×3 (00:45→15:22)
[2017-07-24] MEDS: METRONIDAZOLE 500MG / NSS IV SCH ×3 (04:26→21:21)
[2017-07-24] MEDS: FENTANYL CITRATE INJ 50 MCG/1 ML 2 ML VIAL IV PRN (05:47)
[2017-07-24 07:02] LABS: MEAN CORPUSCULAR HGB CONC 32.6 g/dl (32-36); NUCLEATED RED BLOOD CELL ABS 0.39 K/uL (0-0)
[2017-07-24 07:15] LABS: HEMATOCRIT 27.3 % (42-52); HEMOGLOBIN 8.9 g/dL (14.0-18.0); MEAN CELL VOLUME 89.8 fL (80-100); MEAN CORPUSCULAR HEMOGLOBIN 29.3 pg (25-34); RED CELL DISTRIBUTION WIDTH CV 21.4 % (11.5-14.5); RED CELL DISTRIBUTION WIDTH SD 64.6 fL (36.4-46.3)
--- NOTE | 2017-07-24 07:31 | Surgery Progress Note ---
Surgery Progress Note Date of Service Jul 24, 2017. Subjective Post OP Day: 3 + feeling well (more alert), + pain controlled, + diet (TPN), No bowel movement , No flatus Objective Vital Signs: Date Time Temp Pulse Resp B/P (MAP) Pulse Ox O2 Delivery O2 Flow Rate FiO2 07/24/17 07:09 37.0 96 16 152/71 (98) 90 Nasal Cannula 4.0 07/24/17 05:39 105 164/72 07/24/17 04:22 96 Nasal Cannula 4.0 07/24/17 03:28 37.0 105 17 164/72 (102) 91 Nasal Cannula 4.0 Humidified Oxygen 07/24/17 00:09 108 135/79 07/24/17 00:00 96 Nasal Cannula 4.0 07/23/17 23:30 36.5 108 16 135/79 (97) 94 Nasal Cannula 4.0 Humidified Oxygen 07/23/17 20:02 36.9 102 20 168/79 (108) 93 Nasal Cannula 3.0 07/23/17 20:00 96 Nasal Cannula 4.0 07/23/17 18:21 108 169/80 07/23/17 18:14 36.9 108 20 169/80 (109) 96 Nasal Cannula 4.0 07/23/17 16:08 36.5 104 14 158/71 (100) 94 Nasal Cannula 4.0 07/23/17 16:00 Nasal Cannula 4.0 07/23/17 14:40 36.4 108 153/84 (107) 07/23/17 14:15 108 166/79 07/23/17 14:00 107 15 155/80 (105) 94 Nasal Cannula 4.0 07/23/17 14:00 109 162/110 07/23/17 13:45 108 154/97 07/23/17 13:30 110 151/84 07/23/17 13:15 106 154/102 07/23/17 13:00 102 162/90 07/23/17 12:46 107 14 161/82 (108) 95 Nasal Cannula 4.0 07/23/17 12:45 106 142/74 07/23/17 12:30 102 151/86 07/23/17 12:15 106 169/71 07/23/17 12:00 106 170/75 07/23/17 12:00 Nasal Cannula 4.0 07/23/17 12:00 36.5 107 19 155/91 (112) 94 Nasal Cannula 4.0 07/23/17 11:45 106 174/89 07/23/17 11:30 105 139/81 07/23/17 11:15 105 161/82 07/23/17 11:00 106 158/83 07/23/17 10:45 103 156/79 07/23/17 10:30 100 153/75 07/23/17 10:15 100 16 158/75 (102) 99 Nasal Cannula 6.0 07/23/17 10:10 36.9 102 158/75 (102) 07/23/17 10:05 103 15 168/80 (109) 98 Nasal Cannula 6.0 07/23/17 08:00 36.5 113 13 147/59 (88) 93 Oxymask 6.0 07/23/17 08:00 Nasal Cannula 6.0 General Appearance: WD/WN, no apparent distress Head: normocephalic, atraumatic Neck: supple, trachea midline Respiratory/Chest: chest non-tender, + decreased breath sounds Cardiovascular: regular rate, rhythm, no gallop, no murmur Abdomen: normal bowel sounds (quiet), soft, + abnormal bowel sounds, + distended, + tenderness Incision(s): clean, dry, intact Extremities: non-tender, no pedal edema Laboratory Results: Results Past 24 Hours Test 07/23/17 12:49 07/23/17 18:08 07/24/17 00:09 07/24/17 05:58 Range/Units Bedside Glucose 184 294 278 268 70-99 mg/dl Test 07/24/17 06:10 Range/Units White Blood Count 9.50 4.8-10.8 K/uL Red Blood Count 3.04 4.7-6.1 M/uL Hemoglobin 8.9 14.0-18.0 g/dL Hematocrit 27.3 42-52 % Mean Corpuscular Volume 89.8 80-100 fL Mean Corpuscular Hemoglobin 29.3 25-34 pg Mean Corpuscular Hemoglobin Concent 32.6 32-36 g/dl RDW Standard Deviation 64.6 36.4-46.3 fL RDW Coefficient of Variation 21.4 11.5-14.5 % Nucleated RBC Absolute Count (auto) 0.39 0-0 K/uL Nucleated Red Blood Cells % 4.1 % Assessment & Plan s/p ex lap and SB resection -ngt with minimal drainage but no flatus, will leave until passing flatus -dialysis yesterday -TPN -IV abx -OOB to chair s/p ex lap and SB resection -ngt with minimal drainage but no flatus yet, likely out in AM -no BS yet -will need dialysis today -TPN -IV abx -OOB to chair
[2017-07-24 07:44] LABS: CREATININE 3.55 mg/dl (0.60-1.40); PHOSPHORUS 1.8 mg/dl (2.5-4.9); PLATELET COUNT 78 K/uL (130-400); POTASSIUM 4.5 mmol/L (3.5-5.1)
[2017-07-24] MEDS: FUROSEMIDE INJ 20 MG in SYRINGE 0 ML IV SCH (08:03)
[2017-07-24] MEDS: METHYLPREDNISOLONE IV 40 MG in SYRINGE 0 ML IV SCH (08:03)
[2017-07-24] MEDS: HydrALAZINE HCL 20 MG/ML VIAL IV. SCH ×3 (08:05→21:36)
[2017-07-24] MEDS: METHADONE HCL 10 MG TAB PO SCH ×2 (08:19→21:22)
[2017-07-24] MEDS: LACTOBACILLUS ACIDOPHILUS (FLORANEX) TAB PO SCH ×3 (09:14→21:22)
[2017-07-24] MEDS: LISINOPRIL 40 MG TAB PO SCH (09:14)
--- NOTE | 2017-07-24 09:38 | Nephrology Progress Note ---
Nephrology Progress Note Date of Service Jul 24, 2017. Chief Complaint Provide inpatient HD and assist w/ medical management of this patient w/ ESRD Subjective Mr. Christy was seen & examined in the PCU this morning. He underwent L IJ HD catheter insertion by Dr. Frye yesterday. Mr. Christy then completed a 4 hour dialysis treatment. Catheter was positional and run A -->V. 1700 cc UF obtained. He is currently breathing comfortably flat in bed on O2 at 4 L / min NC. NG tube remains in place draining brown liquid. Review of Systems Constitutional: No fever Cardiovascular: No chest pain Respiratory: No dyspnea at rest Abdomen: No nausea A complete review of systems was performed. Pertinent positives are noted above. All other systems are negative. Vital Signs Last 8 Hrs Date Time Temp Pulse Resp B/P (MAP) Pulse Ox O2 Delivery O2 Flow Rate FiO2 07/24/17 07:09 37.0 96 16 152/71 (98) 90 Nasal Cannula 4.0 07/24/17 05:39 105 164/72 07/24/17 04:22 96 Nasal Cannula 4.0 07/24/17 03:28 37.0 105 17 164/72 (102) 91 Nasal Cannula 4.0 Humidified Oxygen Last Recorded Weight Weight (Kilograms): 81.800 Physical Exam General Appearance: no apparent distress Head: atraumatic Eyes: PERRL, EOMI Neck: supple Respiratory/Chest: lungs clear (anteriorly) Cardiovascular: regular rate, rhythm Abdomen/GI: soft (no bowel sounds) Genitourinary - Male: + pertinent finding (orantes catheter w/ small volume of dark yellow urine) Extremities/Musculoskelatal: no pedal edema (SCD's in place) Neurologic/Psych: alert, oriented x 3 Family History Cervical cancer Diabetes mellitus Heart disease Hypertension Myocardial infarction Pancreatic cancer Prostate cancer Negative for CKD/ESRD Social History Smokeless Tobacco Use: No Alcohol Use: none Drug Use: none Marital Status: single Housing Status: lives alone Occupation: disabled Single, retired. Formerly worked for [employer]. Never a smoker. Laboratory Results Past 24 Hours 07/24/17 06:10 07/24/17 06:10 Test 07/23/17 12:49 07/23/17 18:08 07/24/17 00:09 07/24/17 05:58 Bedside Glucose 184 mg/dl (70-99) 294 mg/dl (70-99) 278 mg/dl (70-99) 268 mg/dl (70-99) Test 07/24/17 06:10 Red Blood Count 3.04 M/uL (4.7-6.1) Mean Corpuscular Volume 89.8 fL (80-100) Mean Corpuscular Hemoglobin 29.3 pg (25-34) Mean Corpuscular Hemoglobin Concent 32.6 g/dl (32-36) RDW Standard Deviation 64.6 fL (36.4-46.3) RDW Coefficient of Variation 21.4 % (11.5-14.5) Nucleated RBC Absolute Count (auto) 0.39 K/uL (0-0) Nucleated Red Blood Cells % 4.1 % Anion Gap 9.0 mmol/L (3-11) Est Creatinine Clear Calc Drug Dose 22.0 ml/min Estimated GFR () 20.0 Estimated GFR (Non- 17.2 BUN/Creatinine Ratio 17.0 (10-20) Calcium Level 7.0 mg/dl (8.5-10.1) Phosphorus Level 1.8 mg/dl (2.5-4.9) Magnesium Level 2.2 mg/dl (1.8-2.4) Allergies Coded Allergies: Iodinated Diagnostic Agents (Verified Allergy, Unknown, oil based, severe headaches, 06/20/17) EVENT OCCURED IN 1971, PT STATES HE HAS HAD 3 DIFFERENT WATER BASED IVP DYES WITH NO ISSUE Medications Current Inpatient Medications Medications (Trade) Dose Ordered Sig/Edward Route Start Time Stop Time Status Last Admin Dose Admin Lactobacillus Acidophilus (Floranex Tab) 2 tab TID PO 07/06/17 09:00 08/05/17 08:59 07/24/17 09:14 2 TAB Lisinopril (Zestril Tab) 40 mg DAILY PO 07/06/17 09:00 08/05/17 08:59 07/24/17 09:14 40 MG Miscellaneous Information (Check Fentanyl Patch Placement) 1 ea QS N/A 07/06/17 08:00 08/05/17 07:59 07/24/17 08:05 1 EA Glucose (Glucose 40% Gel) 15-30 GRAMS 15 GRAMS... UD PRN PO 07/06/17 04:15 08/05/17 04:14 Glucose (Glucose Chew Tab) 4-8 Tablets 4 Tabl... UD PRN PO 07/06/17 04:15 08/05/17 04:14 Dextrose (Dextrose 50% 50ML Syringe) 25-50ML OF 50% DW IV FOR... UD PRN IV 07/06/17 04:15 08/05/17 04:14 07/06/17 05:40 25 ML Glucagon (Glucagon Inj) 1 mg UD PRN SQ 07/06/17 04:15 08/05/17 04:14 Heparin Sodium (Porcine) (Heparin 100 Unit/ml 5ml Flush) 5 ml PRN PRN IV 07/07/17 02:45 08/06/17 02:44 Future hold 07/21/17 05:21 5 ML Ondansetron HCl (Zofran Inj) 4 mg Q4H PRN IV 07/11/17 03:00 08/10/17 02:59 07/17/17 21:50 4 MG Prochlorperazine Edisylate 5 mg/ Syringe 5 ml @ 5 mls/min Q4H PRN IV 07/11/17 14:00 08/10/17 13:59 Lactulose (Chronulac Syrup) 30 gm Q4H PRN PO 07/11/17 16:45 08/10/17 16:44 Miscellaneous (Fentanyl Patch Remove & Waste) 1 ea Q3D@0859 N/A 07/22/17 08:59 08/21/17 08:58 07/22/17 08:14 1 EA Fentanyl (Duragesic Patch) 25 mcg Q3D@0900 TD 07/22/17 09:00 08/05/17 08:59 07/22/17 09:00 25 MCG Insulin Glargine (Lantus Solostar Pen) 6 units HS SC 07/20/17 21:00 08/19/17 20:59 07/23/17 21:14 6 UNITS Ergocalciferol (Vitamin D Cap) 50,000 interunit Q7D@0900 PO 07/20/17 09:00 08/19/17 08:59 07/20/17 09:32 50,000 INTERUNIT Vancomycin HCl (Consult) 1 ea UD PRN N/A 07/21/17 16:00 08/20/17 15:59 Miscellaneous Information (Pharmacy Tpn/ Ppn Consult Active) 1 ea UD PRN N/A 07/21/17 17:00 08/20/17 16:59 Hydralazine HCl (HydrALAZINE INJ) 5 mg Q4 PRN IV. 07/21/17 17:15 08/20/17 17:14 Furosemide 20 mg/ Syringe 2 ml @ 4 mls/min QAM IV 07/22/17 09:00 08/21/17 08:59 07/24/17 08:03 4 MLS/MIN Hydralazine HCl (HydrALAZINE INJ) 5 mg TID IV. 07/21/17 21:00 08/20/17 20:59 07/24/17 08:05 5 MG Methylprednisolone Sodium Succinate 40 mg/Syringe 0.64 ml @ 1.5 mls/min DAILY IV 07/22/17 09:00 08/21/17 08:59 07/24/17 08:03 1.5 MLS/MIN Fentanyl Citrate (Fentanyl Inj) Fentanyl 25-50 mcg... Q4H PRN IV 07/21/17 20:45 08/04/17 20:44 07/24/17 05:47 50 MCG Metoprolol Tartrate (Lopressor Iv) 5 mg Q6 IV. 07/22/17 12:00 08/20/17 17:59 07/24/17 05:39 5 MG Metronidazole 500 mg/Prmx 100 ml @ 100 mls/hr Q8@04,12,20 IV 07/22/17 12:00 08/05/17 11:59 07/24/17 04:26 100 MLS/HR Dextrose 1,000 ml @ 0 mls/hr Q0M PRN IV 07/22/17 16:00 08/21/17 15:59 Cefepime HCl (Consult) 1 ea UD PRN N/A 07/22/17 11:30 08/21/17 11:29 Cefepime HCl 500 mg/Syringe 5.5 ml @ 5.5 mls/min DAILY@1600 IV 07/23/17 16:00 08/02/17 15:59 07/23/17 14:46 5.5 MLS/MIN Insulin Aspart (novoLOG ASPART) SLIDING SCALE G... Q6 SC 07/22/17 18:00 08/21/17 17:59 07/24/17 06:07 5 UNITS Nutrition (Parenteral) 0 ml @ 0 mls/hr TODAY@1600 IV 07/23/17 16:00 07/24/17 15:59 07/23/17 14:43 0 MLS/HR Miscellaneous Information (Consult Glycemic Management Pharmacy) 1 ea UD PRN N/A 07/23/17 13:14 08/22/17 13:13 Methadone HCl (Dolophine Tab) 20 mg BID PO 07/23/17 21:00 08/06/17 20:59 07/24/17 08:19 20 MG Impression (1) Cellulitis of left hand (2) ESRD (end stage renal disease) on dialysis (3) Renal cell carcinoma (4) Anemia (5) Diabetes type 2, controlled Mr. Christy has ESRD and metastatic RCC. He underwent left nephrectomy in 2015. Patient did not tolerate Sutent due to high grade proteinuria, Opdivo caused arthralgia, colitis and possible pneumonitis. He was most recently treated w/ Cabometyx. Mr. Christy was admitted with persistent soft tissue infection of the left hand. Current antibiotics include Cefepime and Vancomycin. Patient tested positive for C. Difficile colitis. He is on oral Metronidazole On 07/21 Mr. Christy was diagnosed with intestinal perforation and required emergency laparotomy. 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 Partial colectomy w/ reanastomosis was completed Mr. Christy's dialysis has been complicated by prolonged bleeding from the AVF following treatment. 07/23 doppler study reveals high grade venous outflow stenosis Recommendations END STAGE RENAL DISEASE: -- 07/23 LUE AVF doppler report reviewed: High grade venous stenosis identified -- Will consult vascular surgery for fistulagram, possible INFORMATION SYSTEMS DIRECTOR and removal of IJ temporary dialysis catheter -- Volume status & electrolyte balance are acceptable at this time. No acute indication for HD today ANEMIA: -- Will provide IDALIA w/ HD treatments HYPERTENSION: -- Blood pressure is currently well controlled. Continue current antihypertensive regimen. No change at present. RENAL CELL CA: -- Cabozantinib is on hold. Oncology is in agreement CKD-BMD: -- Calcitriol and CaCO3 on hold due to recent abdominal surgery ID: -- Antibiotics (Vanco, Cefipime) as per ID
[2017-07-24] MEDS ORDERED: METHADONE HCL 5 MG TAB PO PRN (10:15)
[2017-07-24] MEDS ORDERED: MoRPHine SULFATE 2 MG/ML CARP ONE (11:24)
[2017-07-24] MEDS: MoRPHine SULFATE 2 MG/ML CARP IV PRN ×3 (11:32→19:51)
--- NOTE | 2017-07-24 14:35 | Progress Note ---
Subjective Date of Service: Jul 24, 2017. Subjective Pt evaluation today including: conversation w/ patient, physical exam, chart review, lab review, review of studies, review of inpatient medication list Reports lower quadrant abd pain Asking for something PRN at this time Tolerated dialysis Not passing flatus Problem List Medical Problems: (1) Acute dyspnea Status: Acute (2) Chronic kidney disease Status: Acute (3) Failure of outpatient treatment Status: Acute (4) Left arm cellulitis Status: Acute (5) Renal cell carcinoma Status: Acute Review of Systems Constitutional: No fever, No chills, No sweats, No weakness Eyes: No worsening of vision, No eye pain, No redness, No discharge ENT: No hearing loss, No unusual epistaxis, No nasal symptoms, No sore throat Respiratory: No cough, No sputum, No wheezing, No shortness of breath Cardiac: No chest pain, No orthopnea, No PND, No edema, No claudication Abdomen: No pain, No vomiting, No diarrhea, No constipation Musculoskeletal: + muscle pain, No joint pain, No swelling, No calf pain Male : No dysuria, No urinary frequency, No incontinence, No slowing stream Neurologic: No memory loss, No paralysis, No weakness, No numbness/tingling Psychiatric: No depression symptoms, No anhedonism, No anxiety, No insomnia Endo: No fatigue Skin: No rash, No itch Objective Vital Signs Date Time Temp Pulse Resp B/P (MAP) Pulse Ox O2 Delivery O2 Flow Rate FiO2 07/24/17 12:00 Nasal Cannula 4.0 07/24/17 11:59 105 90 07/24/17 11:41 105 164/82 07/24/17 11:36 16 07/24/17 11:34 36.9 105 164/82 (109) 90 Room Air 07/24/17 08:00 Nasal Cannula 4.0 07/24/17 07:09 37.0 96 16 152/71 (98) 90 Nasal Cannula 4.0 07/24/17 05:39 105 164/72 07/24/17 04:22 96 Nasal Cannula 4.0 07/24/17 03:28 37.0 105 17 164/72 (102) 91 Nasal Cannula 4.0 Humidified Oxygen 07/24/17 00:09 108 135/79 07/24/17 00:00 96 Nasal Cannula 4.0 07/23/17 23:30 36.5 108 16 135/79 (97) 94 Nasal Cannula 4.0 Humidified Oxygen 07/23/17 20:02 36.9 102 20 168/79 (108) 93 Nasal Cannula 3.0 07/23/17 20:00 96 Nasal Cannula 4.0 07/23/17 18:21 108 169/80 07/23/17 18:14 36.9 108 20 169/80 (109) 96 Nasal Cannula 4.0 07/23/17 16:08 36.5 104 14 158/71 (100) 94 Nasal Cannula 4.0 07/23/17 16:00 Nasal Cannula 4.0 07/23/17 14:40 36.4 108 153/84 (107) Laboratory Results Last 24 Hours Test 07/23/17 18:08 07/24/17 00:09 07/24/17 05:58 07/24/17 06:10 Bedside Glucose 294 mg/dl 278 mg/dl 268 mg/dl White Blood Count 9.50 K/uL Red Blood Count 3.04 M/uL Hemoglobin 8.9 g/dL Hematocrit 27.3 % Mean Corpuscular Volume 89.8 fL Mean Corpuscular Hemoglobin 29.3 pg Mean Corpuscular Hemoglobin Concent 32.6 g/dl RDW Standard Deviation 64.6 fL RDW Coefficient of Variation 21.4 % Platelet Count 78 K/uL Nucleated RBC Absolute Count (auto) 0.39 K/uL Nucleated Red Blood Cells % 4.1 % Sodium Level 140 mmol/L Potassium Level 4.5 mmol/L Chloride Level 109 mmol/L Carbon Dioxide Level 22 mmol/L Anion Gap 9.0 mmol/L Blood Urea Nitrogen 60 mg/dl Creatinine 3.55 mg/dl Est Creatinine Clear Calc Drug Dose 22.0 ml/min Estimated GFR () 20.0 Estimated GFR (Non- 17.2 BUN/Creatinine Ratio 17.0 Random Glucose 240 mg/dl Calcium Level 7.0 mg/dl Phosphorus Level 1.8 mg/dl Magnesium Level 2.2 mg/dl Test 07/24/17 11:53 Bedside Glucose 233 mg/dl Assessment and Plan Mr. Christy is a 61 yo M with PMH of ESRD on HD, RCC, DMII. Admitted for L hand cellulitis having failed outpatient management. Abdominal pain, found to have incidental rectus sheath hematoma, C.diff positive colitis and subsequent bowel perforation on 07/21, now s/p colectomy, anemia, and bilateral pneumonia on imaging. Abdominal pain, c diff colitis, perforated jejunal bowel, s/p colectomy, rectus sheath hematoma: Diarrhea - C.Diff - remains afebrile - C.diff positive - unable to take oral vanc at this time, is on IV vanc for other issue (hand cellulitis), and may receive some benefit. However, necessary to treat perforation at this time, dialysis will aid the anasarca, and hopefully resumption of oral vanc can be done MARTHA. - Adequate pain control with fentanyl patch 25-50 mcg q4h POD # 3 from small bowel resection due to jejunal diverticular perforation. - Per surgery, continue ng tube until flattus - Pain controlled on methadone and morphine IV PRN Renal cell cancer - Cabozantinib held due to likely inciting his small intestinal inflammation/ perforation ESRD HD secondary to RCC/ s/p left nephrectomy - Nephrology Consulted - Receives HD on Tuesdays, and Saturdays - unable to receive dialysis yesterday due to technical problems, US doppler shows sign stenosis. - IJ placed 07/23 to initiate dialysis, Vascular surg consulted for AVF repair - hypocalcemia; Vit D level of 9.4, supplement with ergocalciferol [id number] indefinitely plus daily D3 2000 when patient resumes oral intake - Recheck levels in 12 weeks Left hand cellulitis - persists, stable - ID consulted. 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 - started on methadone, morphine PRN DMII - 7 units of Lantus with sliding scale - due to abdominal pain, pt refusing insulin at this time. - BSG AC HS Anemia - nephrology -> continue epogen 34475 units and venofer 100mg - continue to monitor HTN/hyperlipidemia - asa 81 mg DCd while NPO: if prolonged NPO, consider aspirin suppositories in 48 hours - furosemide 20 IV daily; check daily BMP and monitor status- - hydralazine 100 mg tid-->converted to 5 TID scheduled, hold sys <120 - amlodipine 10 mg daily--> converted to 5 hydralazine prn for systolic >180 - metoprolol 150 mg bid-->IV 2.5 q6 - lisinopril 40 mg daily held while pressures are assessed in ICU. - simvastatin 20 mg daily DCd while NPO - I&O and daily weights BPH - continue tamsulosin 0.4 mg (held while in NPO) ESRD Bone Mineral Disease - Continue oral Calcitriol - Continue CaCO3 500 mg with meals DVT Prophylaxis: SCDs Code: Full Continued [facility] stay due to: inadequate oral pain control
[2017-07-24] MEDS: CEFEPIME IV 500 MG in SYRINGE 0 ML IV SCH (15:22)
[2017-07-24] MEDS ORDERED: CUSTOM CENTRAL PN 1 BAG IV SCH (16:00)
[2017-07-24] MEDS: INSULIN GLARGINE SOLOSTAR 100 UNITS/ML 3 ML PEN SC SCH (21:21)
[2017-07-25] VITALS (12 sets, daily range): BP systolic 154–201; BP diastolic 73–98; PULSE 103–166; TEMP 36.6–36.9; O2SAT 92–96; BMI 26.3
[2017-07-25] MEDS: CHECK FENTANYL PATCH PLACEMENT SCH ×3 (00:25→16:00)
[2017-07-25] MEDS ORDERED: INSULIN HUMAN REGULAR PER UNIT 8 UNITS in SYRINGE 7.92 ML IV SCH (00:30)
[2017-07-25] MEDS: INSULIN ASPART 100 UNITS/ML 3 ML PEN SC SCH ×4 (00:42→18:22)
[2017-07-25] MEDS: METOPROLOL TARTRATE 1 MG/ML VIAL IV. SCH ×4 (00:44→18:14)
[2017-07-25] MEDS: MoRPHine SULFATE 2 MG/ML CARP IV PRN ×5 (00:58→23:43)
[2017-07-25 04:29] LABS: HEMOGLOBIN 9.8 g/dL (14.0-18.0); MEAN CELL VOLUME 89.8 fL (80-100); MEAN CORPUSCULAR HEMOGLOBIN 29.3 pg (25-34); MEAN CORPUSCULAR HGB CONC 32.7 g/dl (32-36); RED CELL DISTRIBUTION WIDTH CV 21.2 % (11.5-14.5); RED CELL DISTRIBUTION WIDTH SD 64.8 fL (36.4-46.3); WHITE BLOOD COUNT 10.76 K/uL (4.8-10.8)
[2017-07-25] MEDS: METRONIDAZOLE 500MG / NSS IV SCH ×3 (04:37→21:24)
[2017-07-25 04:46] LABS: ALBUMIN 1.4 gm/dl (3.4-5.0); ALT/SGPT 22 U/L (12-78); AST/SGOT 17 U/L (15-37); BLOOD UREA NITROGEN 90 mg/dl (7-18); CARBON DIOXIDE 23 mmol/L (21-32); CREATININE 4.18 mg/dl (0.60-1.40); GLUCOSE 257 mg/dl (70-99); SODIUM 139 mmol/L (136-145)
[2017-07-25 04:49] LABS: ALKALINE PHOSPHATASE 63 U/L (45-117); PHOSPHORUS 1.8 mg/dl (2.5-4.9); TOTAL PROTEIN 4.2 gm/dl (6.4-8.2)
[2017-07-25 05:10] LABS: MEAN PLATELET VOLUME 9.9 fL (7.4-10.4); PLATELET COUNT 76 K/uL (130-400)
--- NOTE | 2017-07-25 07:16 | Anesthesiology Progress Note ---
Anesthesia Post Op Note Date & Time Jul 25, 2017 at 07:15 Vital Signs Pain Intensity: 5.0 Vital Signs Past 12 Hours Date Time Temp Pulse Resp B/P (MAP) Pulse Ox O2 Delivery O2 Flow Rate FiO2 07/25/17 05:47 103 154/73 07/25/17 04:00 Oxymask 4.0 07/25/17 03:30 36.9 103 18 154/73 (100) 95 Nasal Cannula 4.0 07/25/17 00:44 105 147/70 07/24/17 23:59 Oxymask 4.0 07/24/17 23:20 36.6 105 18 147/70 (95) 95 Oxymask 4.0 07/24/17 20:00 93 Nasal Cannula 4.0 Notes Mental Status: alert / awake / arousable Pt Amnestic to Procedure: Yes Nausea / Vomiting: adequately controlled Pain: improving with treatment Airway Patency, RR, SpO2: stable & adequate BP & HR: stable & adequate Hydration State: stable & adequate Anesthetic Complications: no major complications apparent
[2017-07-25] MEDS: FENTANYL 25 MCG/HR TDSY TD SCH (08:33)
[2017-07-25] MEDS: FENTANYL PATCH REMOVE & WASTE SCH (08:35)
[2017-07-25] MEDS: METHYLPREDNISOLONE IV 40 MG in SYRINGE 0 ML IV SCH (08:36)
[2017-07-25] MEDS: HydrALAZINE HCL 20 MG/ML VIAL IV. SCH ×3 (08:36→21:33)
[2017-07-25] MEDS: LISINOPRIL 40 MG TAB PO SCH (08:37)
[2017-07-25] MEDS: FUROSEMIDE INJ 20 MG in SYRINGE 0 ML IV SCH (08:37)
[2017-07-25] MEDS: LACTOBACILLUS ACIDOPHILUS (FLORANEX) TAB PO SCH ×3 (08:37→21:25)
[2017-07-25] MEDS: PATIENT'S OWN CONTROLLED MED PEG SCH ×2 (09:00→21:00)
--- NOTE | 2017-07-25 09:14 | Surgery Progress Note ---
Surgery Progress Note Date of Service Jul 25, 2017. Subjective Post OP Day: 4 (s/p ex lap , small bowel resection) + pain controlled, + diet (TPN ), No bowel movement, No flatus, No nausea, No vomiting Had dialysis on Monday Objective Vital Signs: Date Time Temp Pulse Resp B/P (MAP) Pulse Ox O2 Delivery O2 Flow Rate FiO2 07/25/17 07:37 36.8 106 20 180/73 (108) 96 Oxymask 4.0 07/25/17 05:47 103 154/73 07/25/17 04:00 Oxymask 4.0 07/25/17 03:30 36.9 103 18 154/73 (100) 95 Nasal Cannula 4.0 07/25/17 00:44 105 147/70 07/24/17 23:59 Oxymask 4.0 07/24/17 23:20 36.6 105 18 147/70 (95) 95 Oxymask 4.0 07/24/17 20:00 93 Nasal Cannula 4.0 07/24/17 18:56 36.9 105 22 163/72 (102) 93 Nasal Cannula 4.0 07/24/17 17:19 107 167/71 07/24/17 16:00 Nasal Cannula 4.0 07/24/17 15:48 36.8 107 20 167/71 (103) 94 Nasal Cannula 4.0 07/24/17 12:00 Nasal Cannula 4.0 07/24/17 11:59 105 90 07/24/17 11:41 105 164/82 07/24/17 11:36 16 07/24/17 11:34 36.9 105 164/82 (109) 90 Room Air Physical Exam: nasogastric drainage (dark bilious/brown output), urine output ( clear yellow in orantes catheter) Head: normocephalic, atraumatic Neck: trachea midline Respiratory/Chest: no respiratory distress, no accessory muscle use, + pertinent finding (oxymask present) Abdomen: normal bowel sounds, non distended, soft, + tenderness (appropriate post op, no peritonitis, rigidity or guarding) Incision(s): clean, dry (dressing clean and dry) Laboratory Results: Results Past 24 Hours Test 07/24/17 11:53 07/24/17 17:22 07/25/17 00:08 07/25/17 04:20 Range/Units Bedside Glucose 233 282 303 70-99 mg/dl White Blood Count 10.76 4.8-10.8 K/uL Red Blood Count 3.34 4.7-6.1 M/uL Hemoglobin 9.8 14.0-18.0 g/dL Hematocrit 30.0 42-52 % Mean Corpuscular Volume 89.8 80-100 fL Mean Corpuscular Hemoglobin 29.3 25-34 pg Mean Corpuscular Hemoglobin Concent 32.7 32-36 g/dl RDW Standard Deviation 64.8 36.4-46.3 fL RDW Coefficient of Variation 21.2 11.5-14.5 % Platelet Count 76 130-400 K/uL Mean Platelet Volume 9.9 7.4-10.4 fL Nucleated RBC Absolute Count (auto) 0.40 0-0 K/uL Nucleated Red Blood Cells % 3.7 % Sodium Level 139 136-145 mmol/L Potassium Level 4.0 3.5-5.1 mmol/L Chloride Level 109 98-107 mmol/L Carbon Dioxide Level 23 21-32 mmol/L Anion Gap 7.0 3-11 mmol/L Blood Urea Nitrogen 90 7-18 mg/dl Creatinine 4.18 0.60-1.40 mg/dl Est Creatinine Clear Calc Drug Dose 18.7 ml/min Estimated GFR () 16.4 Estimated GFR (Non- 14.1 BUN/Creatinine Ratio 21.5 10-20 Random Glucose 257 70-99 mg/dl Calcium Level 7.0 8.5-10.1 mg/dl Phosphorus Level 1.8 2.5-4.9 mg/dl Magnesium Level 2.2 1.8-2.4 mg/dl Total Bilirubin 0.2 0.2-1 mg/dl Direct Bilirubin < 0.1 0-0.2 mg/dl Aspartate Amino Transf (AST/SGOT) 17 15-37 U/L Alanine Aminotransferase (ALT/SGPT) 22 12-78 U/L Alkaline Phosphatase 63 45-117 U/L Total Protein 4.2 6.4-8.2 gm/dl Albumin 1.4 3.4-5.0 gm/dl Random Vancomycin Level 17.6 mcg/ml Test 07/25/17 06:10 Range/Units Bedside Glucose 229 70-99 mg/dl Assessment & Plan POD # 4 s/p ex lap, small bowel resection due to small bowel diverticular perforation - No return of bowel function yet - NGT with dark brown output, 600 cc yesterday in 24 hours - +bowel sounds, abdomen soft Plan: Continue current pain management Continue cardiac monitoring Keep O2 sats > 92% Would continue NGT until passing flatus Continue IV Abx Continue TPN discontinue orantes catheter OOB to chair Continue SCDs Repeat am labs Continue PT/OT Continue current medical management Dr. Siddiqui has seen and examined patient, developed assessment and plan.
--- NOTE | 2017-07-25 09:26 | Surgery Consultation ---
Consultation Date of Service Jul 25, 2017. Chief Complaint malfunctioning LUE AVF History of Present Illness The patient is a 61 year old male with multiple medical problems, including renal cell ca, ESRD on HD, admitted with L hand cellulitis which is improved, and found to have perforated viscous and underwent ex lap and partial small bowel resection, seen today in consultation for LUE AVF malfunction. Pt underwent LUE brachocephalic avf creation by Dr saavedra in 02/2017, then had infusaport insertion as well. Per pt, HD had been using LUE AVF for HD for past month or so, however, the past 1-2 times it was used, they had trouble with post treatment bleeding and elevated pressures. Pt admits general malaise from recent bowel surgery, as well as abd pain. Denies VILLA, fever, chills, chst pain SOB, extremity pain. Vitals Vital Signs Past 12 Hours Date Time Temp Pulse Resp B/P (MAP) Pulse Ox O2 Delivery O2 Flow Rate FiO2 07/25/17 07:37 36.8 106 20 180/73 (108) 96 Oxymask 4.0 07/25/17 05:47 103 154/73 07/25/17 04:00 Oxymask 4.0 07/25/17 03:30 36.9 103 18 154/73 (100) 95 Nasal Cannula 4.0 07/25/17 00:44 105 147/70 07/24/17 23:59 Oxymask 4.0 07/24/17 23:20 36.6 105 18 147/70 (95) 95 Oxymask 4.0 Allergies Coded Allergies: Iodinated Diagnostic Agents (Verified Allergy, Unknown, oil based, severe headaches, 06/20/17) EVENT OCCURED IN 1971, PT STATES HE HAS HAD 3 DIFFERENT WATER BASED IVP DYES WITH NO ISSUE Home Medications Scheduled Amlodipine (Norvasc), 10 MG PO QAM Aspirin (Aspirin Ec), 81 MG PO QAM Cabozantinib S-Malate (Cabometyx), 60 MG PO QAM Calcitriol (Calcitriol), 0.25 MCG PO Q2D Calcium Carbonate (Tums), 500 MG PO WM Daptomycin (Daptomycin), 350 MG IV Q48H Fentanyl (Fentanyl), 25 PATCH TOP [id number] Furosemide (Furosemide), 40 MG PO QAM Hydralazine Hcl (Apresoline), 100 MG PO TID Insulin Glargine (Lantus Solostar), 14 UNITS SC HS Insulin Isophane (Human) (Humulin N Kwikpen), UNITS SC TID Lactobacillus Acidophilus (Floranex), 2 TABS OR TID Lisinopril (Lisinopril), 1 TAB OR DAILY Methadone HCl (Methadone HCl), 10 MG PO TID Metoprolol Tartrate (Lopressor) (Lopressor), 100 MG PO BID Oxycodone Hcl (Oxycodone Hcl), 10 MG PO TID Prednisone Tab (Prednisone), 10 MG PO TID Simvastatin (Zocor), 20 MG PO QPM Tamsulosin Hcl (Flomax), 0.4 MG PO HS Scheduled PRN Polyethylene (Miralax), 17 GM PO DAILY PRN for Constipation Problem List Medical Problems: (1) Abdominal pain (2) Acute kidney injury (3) Anemia (4) Anemia in chronic kidney disease (5) Cellulitis of left hand (6) Chronic kidney disease, stage V (very severe) (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 (8) Colitis (9) Diabetes type 2, controlled (10) H/O unilateral nephrectomy (11) Hypertension (12) Kidney disease, chronic, stage IV (GFR 15-29 ml/min) (13) Pain due to neoplasm (14) Pneumonia (15) Pneumonitis (16) Pyelonephritis (17) Renal cell carcinoma (18) Renal mass, left (19) Shortness of breath Surgical / Medical History Hx Cardiac Surgery: No Hx Abdominal Surgery: Yes (COLOSTOMY) Hx Cancer Surgery: Yes (KIDNEY CA, NEPHRECTOMY) Hx Thoracic Surgery: No Hx Orthopedic: No Hx Urinary Tract Surgery: No Past Medical/Surgical History: Cancer, Diabetes, Hypertension, Kidney Disease Family History Cervical cancer Diabetes mellitus Heart disease Hypertension Myocardial infarction Pancreatic cancer Prostate cancer Social History Smoking Status: Never Smoker Hx Tobacco Use In Past Year?: No Hx Alcohol Use - Type & Amnt: No Hx Substance Use -Type & Amnt: No Review of Systems Constitutional: + malaise, No chills, No fever Skin: No change in color ENMT: No stridor, No sore throat Respiratory: No cough, No STEIN, No hemoptysis, No short of breath Cardiovascular: No chest pain, No edema, No intermittent claudication Gastrointestinal: + abdominal pain Neurologic: + lethargy, No dizziness, No headache Physical Exam Constitutional: General Apperance: well-nourished, well-developed Level of Distress: NAD, acutely ill, chronically ill Psychiatric: Mental Status: active & alert, normal mood, normal affect Orientation: oriented except where noted, to time, to place, to person Memory: recent memory normal, remote memory normal Head: normocephalic, atraumatic Eyes: EOM: EOMI ENMT: normal ENT inspection Neck: supple, trachea midline Lungs: Respiratory effort: no dyspnea Auscultation: no rales/crackles, no rhonchi Cardiovascular: Apical Impulse: not displaced Heart Auscultation: RRR, no murmurs, no gallops Peripheral Pulses: Pulses: full and equal, in all extremities except if noted Bruits: none appreciated Carotid Pulse: normal on the left, normal on the right Brachial Pulses: normal on the left, normal on the right, pertinent finding (LUE AVF with + thrill/bruit) Radial Pulse: normal on the left, normal on the right Femoral Pulse: normal on the left, normal on the right Posterior Tibialis Pulse: decreased on the left, decreased on the right Dorsalis Pedis Pulse: decreased on the left, decreased on the right Abdomen: Bowel Sounds: normal Inspection & Palpation: soft, pertinent finding (tenderness, incision.) Musculoskeletal: normal strength (5/5 throughout), normal tone Extremities: Upper Right: no cyanosis, no edema, no varicosities Upper Left: no cyanosis, no edema, no clubbing, no ulcers Lower Right: no cyanosis, no edema, no ulcers Lower Left: no cyanosis, no edema, no clubbing, no ulcers Neurologic: Cranial Nerves: grossly intact Sensation: grossly intact Assessment and Plan ASSESSMENT adn PLAN: ESRD on HD Malfuncitoning LUE AVF Pt for LUE fistualgram today in OR. Procedure discussed wt pt, he expreses understanding and agreement.
--- NOTE | 2017-07-25 09:30 | Medical Consult ---
Consultation Note Date of Service Jul 25, 2017. Consultation Note Chief Complaint ESRD, need AVF creation History of Present Illness The patient is a 61 year old male with hx of L nephrectomy d/t clear cell renal ca and currently with metastasis. He had a left antecubital cephalic vein fistula placed. It is not working well at this time. Pt himself denies any complaints and states is feeling well presently aside from some mild fatigue. He just underwent bowel resection with c diff Allergies Coded Allergies: Iodinated Diagnostic Agents (Verified Allergy, Unknown, oil based, severe headaches, 10/27/16) EVENT OCCURED IN 1971, PT STATES HE HAS HAD 3 DIFFERENT WATER BASED IVP DYES WITH NO ISSUE Home Medications Scheduled Amlodipine (Norvasc), 10 MG PO DAILY Atenolol (Tenormin), 50 MG PO DAILY Calcitriol (Calcitriol), 0.25 MCG PO 3XWK Docusate Sodium (Colace), 1 CAP PO BID Escitalopram (Lexapro), 10 MG PO DAILY Ferrous Sulfate (Ferrous Sulfate), 325 MG PO BID Furosemide (Lasix), 40 MG PO DAILY Insulin Glargine (Lantus), 14 SC QPM Insulin Lispro (Human) (Humalog Kwikpen), 10-20 SC AFTER DINNER Lisinopril (Prinivil), 40 MG PO QAM Nivolumab (Opdivo), 40 MG IV Q14D Simvastatin (Zocor), 20 MG PO QPM Terazosin (Hytrin), 5 MG PO HS [Aspirin], 81 MG PO DAILY Scheduled PRN [Tylenol #4], 1 TAB PO q4-6 hours PRN for Pain Problem List Medical Problems: (1) Abdominal pain (2) Acute kidney injury (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 (4) Colitis (5) H/O unilateral nephrectomy (6) Hypertension (7) Kidney disease, chronic, stage IV (GFR 15-29 ml/min) (8) Renal mass, left (9) Shortness of breath Surgical / Medical History Hx Cardiac Surgery: Yes Hx Abdominal Surgery: Yes (colostomy w/ reversal, L nephrectomy) Hx Cancer Surgery: Yes (BASAL CELL CARCINOMA REMOVED; L nephrectomy for "2 kinds of cancer") Hx Thoracic Surgery: Yes (lung sx) Hx Orthopedic: Yes (hand, knee, leg, lumbar x6, L ankle (fixed)) Hx Urinary Tract Surgery: Yes (vasectomy) Past Medical/Surgical History: Cancer, Diabetes, Hypertension, Kidney Disease Family History Cervical cancer Diabetes mellitus Heart disease Hypertension Myocardial infarction Pancreatic cancer Prostate cancer Social History Smoking Status: Never Smoker Hx Tobacco Use In Past Year?: No Hx Alcohol Use - Type & Amnt: No Hx Substance Use -Type & Amnt: No Review of Systems Constitutional: No chills, No fever, No malaise Skin: No change in color Eyes: No visual changes ENMT: No sore throat Respiratory: No cough, No STEIN, No hemoptysis, No short of breath Cardiovascular: No chest pain, No palpitations, No syncope, No edema, No intermittent claudication Gastrointestinal: No abdominal pain, No nausea, No vomiting Neurologic: No dizziness, No lethargy, No numbness, No tingling Physical Exam Constitutional: General Apperance: heathly-appearing, well-nourished, well-developed Level of Distress: NAD Psychiatric: Mental Status: active & alert, normal mood, normal affect Orientation: oriented except where noted, to time, to place, to person Memory: recent memory normal, remote memory normal Head: normocephalic, atraumatic Eyes: EOM: EOMI ENMT: normal ENT inspection, hearing grossly normal Neck: supple, trachea midline Lungs: Respiratory effort: no dyspnea Auscultation: no rales/crackles, no rhonchi Cardiovascular: Apical Impulse: not displaced Heart Auscultation: RRR, no rubs, no gallops Peripheral Pulses: Pulses: full and equal, in all extremities except if noted Bruits: none appreciated Carotid Pulse: normal on the left, normal on the right Brachial Pulses: normal on the left, normal on the right Radial Pulse: normal on the left, normal on the right Femoral Pulse: normal on the left, normal on the right Posterior Tibialis Pulse: decreased on the left, decreased on the right Dorsalis Pedis Pulse: decreased on the left, decreased on the right Abdomen: Bowel Sounds: normal Inspection & Palpation: soft, non-distended, no tenderness, guarding & rebound Musculoskeletal: normal strength (5/5 throughout), normal tone Extremities: Upper Right: no cyanosis, no edema, no varicosities Upper Left: no cyanosis, no edema, no varicosities Lower Right: no cyanosis, no edema, no varicosities Lower Left: no cyanosis, no edema, no varicosities Neurologic: Cranial Nerves: grossly intact Sensation: grossly intact A&P: Vascular Con v2 Assessment and Plan ASSESSMENT and PLAN: ESRD Malfunctioning fistula Plan: Patient for a fistulogram with possible intervention. Procedure, risks, benefits, and alternatives discussed with pt, he expresses understanding and agreement.
[2017-07-25] MEDS: METHADONE ORAL SOLN 2 MG/1ML GT SCH ×2 (09:35→21:24)
--- NOTE | 2017-07-25 09:48 | Palliative Care Progress Note ---
Palliative Care Progress Note Date of Service Jul 25, 2017. Subjective Pt evaluation today including: conversation w/ patient, physical exam, chart review, lab review, conversation w/ library sales consultant, review of inpatient medication list Pain: 5/10 PO Intake: NPO, NG in place. Voiding: orantes catheter in place Pt states he feels unable to catch his breath, this is new this am. While being repositioned pt got very SOB with audible wheezing. NG tube is putting out dark blood. 600 cc yesterday - has full canister now. Acute SOB subsided after approx 10 min, still with mild SOB. Pt reports he passed gas this am several times. Review of Systems Constitutional: + weakness, + fatigue Eyes: No worsening of vision ENT: No hearing loss Respiratory: + wheezing, + shortness of breath Cardiac: + orthopnea Abdomen: + pain, + GI bleeding, + problem reported (abd dressing is C/D/I) Musculoskeletal: + problem reported (weakness) Neurologic: + weakness Psychiatric: + anxiety Heme: + abnormal bleeding/bruising Endo: + fatigue Objective Vital Signs Date Time Temp Pulse Resp B/P (MAP) Pulse Ox O2 Delivery O2 Flow Rate FiO2 07/25/17 07:37 36.8 106 20 180/73 (108) 96 Oxymask 4.0 07/25/17 05:47 103 154/73 07/25/17 04:00 Oxymask 4.0 07/25/17 03:30 36.9 103 18 154/73 (100) 95 Nasal Cannula 4.0 07/25/17 00:44 105 147/70 07/24/17 23:59 Oxymask 4.0 07/24/17 23:20 36.6 105 18 147/70 (95) 95 Oxymask 4.0 07/24/17 20:00 93 Nasal Cannula 4.0 07/24/17 18:56 36.9 105 22 163/72 (102) 93 Nasal Cannula 4.0 07/24/17 17:19 107 167/71 07/24/17 16:00 Nasal Cannula 4.0 07/24/17 15:48 36.8 107 20 167/71 (103) 94 Nasal Cannula 4.0 07/24/17 12:00 Nasal Cannula 4.0 07/24/17 11:59 105 90 07/24/17 11:41 105 164/82 07/24/17 11:36 16 07/24/17 11:34 36.9 105 164/82 (109) 90 Room Air Physical Exam General Appearance: + moderate distress Eyes: EOMI ENT: hearing grossly normal Neck: + pertinent finding (L IJ in place) Respiratory/Chest: + respiratory distress, + decreased breath sounds, + wheezing Cardiovascular: + tachycardia, + pertinent finding (fistula + thrill) Abdomen: + abnormal bowel sounds (decreased BS, but present) Extremities: no pedal edema, + pertinent finding (still with swelling, redness of L hand. ) Neurologic/Psychiatric: alert, + pertinent finding (anxious due to acute SOB) Skin: normal color Laboratory Results Last 24 Hours Test 07/24/17 11:53 07/24/17 17:22 07/25/17 00:08 07/25/17 04:20 Bedside Glucose 233 mg/dl 282 mg/dl 303 mg/dl White Blood Count 10.76 K/uL Red Blood Count 3.34 M/uL Hemoglobin 9.8 g/dL Hematocrit 30.0 % Mean Corpuscular Volume 89.8 fL Mean Corpuscular Hemoglobin 29.3 pg Mean Corpuscular Hemoglobin Concent 32.7 g/dl RDW Standard Deviation 64.8 fL RDW Coefficient of Variation 21.2 % Platelet Count 76 K/uL Mean Platelet Volume 9.9 fL Nucleated RBC Absolute Count (auto) 0.40 K/uL Nucleated Red Blood Cells % 3.7 % Sodium Level 139 mmol/L Potassium Level 4.0 mmol/L Chloride Level 109 mmol/L Carbon Dioxide Level 23 mmol/L Anion Gap 7.0 mmol/L Blood Urea Nitrogen 90 mg/dl Creatinine 4.18 mg/dl Est Creatinine Clear Calc Drug Dose 18.7 ml/min Estimated GFR () 16.4 Estimated GFR (Non- 14.1 BUN/Creatinine Ratio 21.5 Random Glucose 257 mg/dl Calcium Level 7.0 mg/dl Phosphorus Level 1.8 mg/dl Magnesium Level 2.2 mg/dl Total Bilirubin 0.2 mg/dl Direct Bilirubin < 0.1 mg/dl Aspartate Amino Transf (AST/SGOT) 17 U/L Alanine Aminotransferase (ALT/SGPT) 22 U/L Alkaline Phosphatase 63 U/L Total Protein 4.2 gm/dl Albumin 1.4 gm/dl Random Vancomycin Level 17.6 mcg/ml Test 07/25/17 06:10 Bedside Glucose 229 mg/dl Assessment and Plan (1) Pain due to neoplasm Status: Chronic Assessment & Plan: Pt had missed 3 days of his methadone - restarted on 07/24 at 2121, having abd pain post op. His prior BTP med was 10 mg of oxy which is approx 5 mg IV morphine - would increase his prn morphine to 4 mg IV Q 4 hours prn. It will take several more days for his methadone to reach steady state. (2) Cellulitis of left hand Status: Acute Assessment & Plan: ? Reflex sympathetic Dystrophy - cont pain control (3) ESRD (end stage renal disease) on dialysis Status: Acute Assessment & Plan: Now with L IJ, stenosis distal to LUE fistula (4) Hypoxemia requiring supplemental oxygen Status: Acute Assessment & Plan: Still requiring O2, acute SOB this am - Dr Stern aware - pt had been refusing his Lovenox - high risk for DVT/PE given cancer, recent GI surgery and immobility (5) High risk medication use Status: Acute Assessment & Plan: Methadone restarted on 07/24. Takes 5-7 days to reach steady state - was off for 3 days Total time > 35 min assessing pt and collaborating with attending Palliative Performance Scale: 30 % Continued [facility] stay due to: inadequate oral pain control, other (O2 requirement ) Discharge planning: other (hope to be able to transfer to rehab when medically stable)
--- NOTE | 2017-07-25 09:58 | Nephrology Progress Note ---
Nephrology Progress Note Date of Service Jul 25, 2017. Chief Complaint ESRD Subjective No acute events overnight. No complaints this morning. Padilla feels reasonably well. Pain well controlled. No fever or chills. No shortness of breath. Padilla denies chest pain or palpitations. Review of Systems A complete review of systems was performed. Pertinent positives are noted above. All other systems are negative. Vital Signs Last 8 Hrs Date Time Temp Pulse Resp B/P (MAP) Pulse Ox O2 Delivery O2 Flow Rate FiO2 07/25/17 07:37 36.8 106 20 180/73 (108) 96 Oxymask 4.0 07/25/17 05:47 103 154/73 07/25/17 04:00 Oxymask 4.0 07/25/17 03:30 36.9 103 18 154/73 (100) 95 Nasal Cannula 4.0 Last Recorded Weight Weight (Kilograms): 83.100 Physical Exam General Appearance: WD/WN, no apparent distress Head: normocephalic, atraumatic Eyes: normal inspection, sclerae normal ENT: normal ENT inspection, pharynx normal Neck: supple, no JVD Respiratory/Chest: no respiratory distress, no accessory muscle use, + decreased breath sounds Cardiovascular: regular rate, rhythm, no murmur Abdomen/GI: non tender, soft Extremities/Musculoskelatal: normal inspection, no pedal edema Neurologic/Psych: alert, oriented x 3 Family History Cervical cancer Diabetes mellitus Heart disease Hypertension Myocardial infarction Pancreatic cancer Prostate cancer Negative for CKD/ESRD Social History Smokeless Tobacco Use: No Alcohol Use: none Drug Use: none Marital Status: single Housing Status: lives alone Occupation: disabled Single, retired. Formerly worked for [employer]. Never a smoker. Laboratory Results Past 24 Hours 07/25/17 04:20 07/25/17 04:20 Test 07/24/17 11:53 07/24/17 17:22 07/25/17 00:08 07/25/17 04:20 Bedside Glucose 233 mg/dl (70-99) 282 mg/dl (70-99) 303 mg/dl (70-99) Red Blood Count 3.34 M/uL (4.7-6.1) Mean Corpuscular Volume 89.8 fL (80-100) Mean Corpuscular Hemoglobin 29.3 pg (25-34) Mean Corpuscular Hemoglobin Concent 32.7 g/dl (32-36) RDW Standard Deviation 64.8 fL (36.4-46.3) RDW Coefficient of Variation 21.2 % (11.5-14.5) Mean Platelet Volume 9.9 fL (7.4-10.4) Nucleated RBC Absolute Count (auto) 0.40 K/uL (0-0) Nucleated Red Blood Cells % 3.7 % Anion Gap 7.0 mmol/L (3-11) Est Creatinine Clear Calc Drug Dose 18.7 ml/min Estimated GFR () 16.4 Estimated GFR (Non- 14.1 BUN/Creatinine Ratio 21.5 (10-20) Calcium Level 7.0 mg/dl (8.5-10.1) Phosphorus Level 1.8 mg/dl (2.5-4.9) Magnesium Level 2.2 mg/dl (1.8-2.4) Total Bilirubin 0.2 mg/dl (0.2-1) Direct Bilirubin < 0.1 mg/dl (0-0.2) Aspartate Amino Transf (AST/SGOT) 17 U/L (15-37) Alanine Aminotransferase (ALT/SGPT) 22 U/L (12-78) Alkaline Phosphatase 63 U/L (45-117) Total Protein 4.2 gm/dl (6.4-8.2) Albumin 1.4 gm/dl (3.4-5.0) Random Vancomycin Level 17.6 mcg/ml Test 07/25/17 06:10 Bedside Glucose 229 mg/dl (70-99) Allergies Coded Allergies: Iodinated Diagnostic Agents (Verified Allergy, Unknown, oil based, severe headaches, 06/20/17) EVENT OCCURED IN 1971, PT STATES HE HAS HAD 3 DIFFERENT WATER BASED IVP DYES WITH NO ISSUE Medications Current Inpatient Medications Medications (Trade) Dose Ordered Sig/Edward Route Start Time Stop Time Status Last Admin Dose Admin Lactobacillus Acidophilus (Floranex Tab) 2 tab TID PO 07/06/17 09:00 08/05/17 08:59 07/25/17 08:37 2 TAB Lisinopril (Zestril Tab) 40 mg DAILY PO 07/06/17 09:00 08/05/17 08:59 07/25/17 08:37 40 MG Miscellaneous Information (Check Fentanyl Patch Placement) 1 ea QS N/A 07/06/17 08:00 08/05/17 07:59 07/25/17 08:00 1 EA Glucose (Glucose 40% Gel) 15-30 GRAMS 15 GRAMS... UD PRN PO 07/06/17 04:15 08/05/17 04:14 Glucose (Glucose Chew Tab) 4-8 Tablets 4 Tabl... UD PRN PO 07/06/17 04:15 08/05/17 04:14 Dextrose (Dextrose 50% 50ML Syringe) 25-50ML OF 50% DW IV FOR... UD PRN IV 07/06/17 04:15 08/05/17 04:14 07/06/17 05:40 25 ML Glucagon (Glucagon Inj) 1 mg UD PRN SQ 07/06/17 04:15 08/05/17 04:14 Heparin Sodium (Porcine) (Heparin 100 Unit/ml 5ml Flush) 5 ml PRN PRN IV 07/07/17 02:45 08/06/17 02:44 Future hold 07/21/17 05:21 5 ML Ondansetron HCl (Zofran Inj) 4 mg Q4H PRN IV 07/11/17 03:00 08/10/17 02:59 07/17/17 21:50 4 MG Prochlorperazine Edisylate 5 mg/ Syringe 5 ml @ 5 mls/min Q4H PRN IV 07/11/17 14:00 08/10/17 13:59 Lactulose (Chronulac Syrup) 30 gm Q4H PRN PO 07/11/17 16:45 08/10/17 16:44 Miscellaneous (Fentanyl Patch Remove & Waste) 1 ea Q3D@0859 N/A 07/22/17 08:59 08/21/17 08:58 07/25/17 08:35 1 EA Fentanyl (Duragesic Patch) 25 mcg Q3D@0900 TD 07/22/17 09:00 08/05/17 08:59 07/25/17 08:33 25 MCG Insulin Glargine (Lantus Solostar Pen) 6 units HS SC 07/20/17 21:00 08/19/17 20:59 07/24/17 21:21 6 UNITS Ergocalciferol (Vitamin D Cap) 50,000 interunit Q7D@0900 PO 07/20/17 09:00 08/19/17 08:59 07/20/17 09:32 50,000 INTERUNIT Vancomycin HCl (Consult) 1 ea UD PRN N/A 07/21/17 16:00 08/20/17 15:59 Miscellaneous Information (Pharmacy Tpn/ Ppn Consult Active) 1 ea UD PRN N/A 07/21/17 17:00 08/20/17 16:59 Hydralazine HCl (HydrALAZINE INJ) 5 mg Q4 PRN IV. 07/21/17 17:15 08/20/17 17:14 Furosemide 20 mg/ Syringe 2 ml @ 4 mls/min QAM IV 07/22/17 09:00 08/21/17 08:59 07/25/17 08:37 4 MLS/MIN Hydralazine HCl (HydrALAZINE INJ) 5 mg TID IV. 07/21/17 21:00 08/20/17 20:59 07/25/17 08:36 5 MG Methylprednisolone Sodium Succinate 40 mg/Syringe 0.64 ml @ 1.5 mls/min DAILY IV 07/22/17 09:00 08/21/17 08:59 07/25/17 08:36 1.5 MLS/MIN Fentanyl Citrate (Fentanyl Inj) Fentanyl 25-50 mcg... Q4H PRN IV 07/21/17 20:45 08/04/17 20:44 07/24/17 05:47 50 MCG Metoprolol Tartrate (Lopressor Iv) 5 mg Q6 IV. 07/22/17 12:00 08/20/17 17:59 07/25/17 05:47 5 MG Metronidazole 500 mg/Prmx 100 ml @ 100 mls/hr Q8@04,12,20 IV 07/22/17 12:00 08/05/17 11:59 07/25/17 04:37 100 MLS/HR Dextrose 1,000 ml @ 0 mls/hr Q0M PRN IV 07/22/17 16:00 08/21/17 15:59 Cefepime HCl (Consult) 1 ea UD PRN N/A 07/22/17 11:30 08/21/17 11:29 Cefepime HCl 500 mg/Syringe 5.5 ml @ 5.5 mls/min DAILY@1600 IV 07/23/17 16:00 08/02/17 15:59 07/24/17 15:22 5.5 MLS/MIN Insulin Aspart (novoLOG ASPART) SLIDING SCALE G... Q6 SC 07/22/17 18:00 08/21/17 17:59 07/25/17 06:22 4 UNITS Miscellaneous Information (Consult Glycemic Management Pharmacy) 1 ea UD PRN N/A 07/23/17 13:14 08/22/17 13:13 Morphine Sulfate (MoRPHine SULFATE INJ) 2 mg Q3RWA PRN IV 07/24/17 11:30 08/07/17 11:29 07/25/17 09:41 2 MG Nutrition (Parenteral) 0 ml @ 0 mls/hr TODAY@1600 IV 07/24/17 16:00 07/25/17 15:59 07/24/17 15:22 66.1 MLS/HR Non-Formulary Medication (Patient'S Own Controlled Med) 1 ea BID PEG 07/25/17 09:00 08/08/17 08:59 07/25/17 09:00 1 EA Methadone HCl (Methadone HCl) 20 mg BID GT 07/25/17 09:00 08/08/17 08:59 07/25/17 09:35 20 MG Impression (1) Cellulitis of left hand (2) ESRD (end stage renal disease) on dialysis (3) Renal cell carcinoma (4) Anemia (5) Diabetes type 2, controlled Mr. Christy has ESRD and metastatic RCC. He underwent left nephrectomy in 2015. Patient did not tolerate Sutent due to high grade proteinuria, Opdivo caused arthralgia, colitis and possible pneumonitis. He was most recently treated w/ Cabometyx. Mr. Christy was admitted with persistent soft tissue infection of the left hand. Current antibiotics include cefepime and vancomycin. Patient tested positive for C. Difficile colitis. He is on oral Metronidazole On 07/21 Mr. Christy was diagnosed with intestinal perforation and required emergency laparotomy. 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 Partial colectomy w/ reanastomosis was completed Mr. Christy's dialysis has been complicated by prolonged bleeding from the AVF following treatment. 07/23 doppler study reveals high grade venous outflow stenosis. I discussed the plan of care with vascular surgery this morning. Recommendations END STAGE RENAL DISEASE: -- 07/23 LUE AVF doppler report reviewed: High grade venous stenosis identified -- Vascular surgery for fistulagram, possible DIRECTOR OF [employer]STRUMENT[employer]IC and removal of IJ temporary dialysis catheter -- Volume status & electrolyte balance are acceptable at this time. No acute indication for HD today ANEMIA: -- IDALIA w/ HD treatments HYPERTENSION: -- Blood pressure is currently well controlled. Continue current antihypertensive regimen. No change at present. RENAL CELL CA: -- Cabozantinib is on hold. Oncology is in agreement CKD-BMD: -- Calcitriol and CaCO3 on hold due to recent abdominal surgery ID: -- Antibiotics (Vanco, Cefipime) as per ID
--- NOTE | 2017-07-25 10:41 | Pharmacy Progress Note ---
Pharmacy Glycemic Short Note 2 Date of Service Jul 25, 2017. Glycemic and parenteral nutrition consult: ASSESSMENT: * Mr. Christy is scheduled for a fistulogram with possible intervention today * Today is day #4 of parenteral nutrition and BSGs remain difficult to control * Regarding glycemic control: * With insulin the TPN, he received ~55 units of insulin over the past 24 hours * He remains on IV Solu-medrol * Dextrose was increased in the TPN yesterday but will NOT increase any further until BSGs are better controlled * Will plan to continue the same basal dose and increase insulin in the TPN since BSG elevation has been related to the TPN * Will tighten the CF as well to provide additional SQ insulin if necessary * Regarding parenteral nutrition: * Macronutrients - AA already at goal, dextrose will not be advanced further today, will provide lipids today to provide additional calories since we have had to slowly titrate up on dextrose * Micronutrients - noted nephrology's note that lytes are acceptable, only making minor changes to TPN today since phos remains slightly low and K is steadily dropping. Noted that patient will not receive dialysis today. PLAN FOR INPATIENT GLYCEMIC CONTROL: * Continue Lantus 6 units qHS * Continue Novolog q6h * Goal 120-160 * TIGHTEN CF to 15 * REMOVE CR since it is not being used * Increase insulin in TPN to 45 units PLAN FOR PARENTERAL NUTRITION For day 4 of PN administration, the following will be ordered: Macronutrients Amino acids 125 grams/day Dextrose 200 grams/day Lipids 50 grams/day Micronutrients Sodium acetate 70 mEq Potassium acetate 10 mEq Calcium gluconate 2.3 mEq Multivitamins 10 mL Trace Elements 1 mL Regular insulin 45 units Total volume 1847 mL (minimum) to be infused over 24 hrs will provide 1680 kcal /day Labs, as indicated, will be ordered per protocol Pharmacy will continue to follow and adjust parenteral nutrition orders on a daily basis. Thank you for allowing us to participate in the care of this patient.
--- NOTE | 2017-07-25 12:12 | Hematology/Oncology Prog Note ---
Hematology/Onc Progress Note Date of Service Jul 25, 2017. Diagnoses metastatic renal cell carcinoma Left hand and arm cellulitis End-stage renal disease Jejunal perforation Jejunal diverticulitis Medications Medications Administered Medications (Trade) Dose Ordered Sig/Edward Route Start Time Stop Time Status Last Admin Dose Admin Acetaminophen (Tylenol Tab) 650 mg Q4H PRN PO 07/05/17 21:45 07/21/17 15:11 DC 07/20/17 15:28 650 MG Ertapenem 500 mg/ Sodium Chloride 55 ml @ 120 mls/hr Q24H IV 07/05/17 23:00 07/13/17 16:37 DC 07/12/17 23:38 120 MLS/HR Daptomycin 350 mg/ Syringe 7 ml @ 3.5 mls/min Q48H IV 07/06/17 20:00 07/13/17 16:37 DC 07/12/17 20:52 3.5 MLS/MIN Amlodipine Besylate (Norvasc Tab) 10 mg QAM PO 07/06/17 09:00 07/21/17 15:11 DC 07/20/17 09:32 10 MG Aspirin (Ecotrin Tab) 81 mg QAM PO 07/06/17 09:00 07/21/17 15:11 DC 07/20/17 08:28 81 MG Calcitriol (Rocaltrol Cap) 0.25 mcg Q2D PO 07/06/17 09:00 07/21/17 15:11 DC 07/20/17 08:31 0.25 MCG Calcium Carbonate (Tums Chew Tab) 500 mg TID PO 07/06/17 09:00 07/07/17 13:22 DC 07/07/17 13:00 500 MG Furosemide (Lasix Tab) 40 mg QAM PO 07/06/17 09:00 07/21/17 15:11 DC 07/20/17 09:31 40 MG Hydralazine HCl (Apresoline Tab) 100 mg TID PO 07/06/17 09:00 07/21/17 15:11 DC 07/20/17 09:30 100 MG Lactobacillus Acidophilus (Floranex Tab) 2 tab TID PO 07/06/17 09:00 08/05/17 08:59 07/25/17 08:37 2 TAB Lisinopril (Zestril Tab) 40 mg DAILY PO 07/06/17 09:00 08/05/17 08:59 07/25/17 08:37 40 MG Methadone HCl (Dolophine Tab) 10 mg TID PO 07/06/17 09:00 07/14/17 09:02 DC 07/13/17 20:53 10 MG Metoprolol Tartrate (Lopressor Tab) 150 mg BID PO 07/06/17 09:00 07/21/17 15:11 DC 07/20/17 09:33 150 MG Polyethylene (Miralax Powder Packet) 17 gm DAILY PRN PO 07/06/17 02:30 07/11/17 16:34 DC 07/09/17 08:14 17 GM Prednisone (PredniSONE TAB) 10 mg BID PO 07/06/17 09:00 07/14/17 15:02 DC 07/14/17 10:09 10 MG Simvastatin (Zocor Tab) 20 mg QPM PO 07/06/17 21:00 07/21/17 15:11 DC 07/21/17 00:17 20 MG Tamsulosin HCl (Flomax Cap) 0.4 mg HS PO 07/06/17 21:00 07/21/17 15:11 DC 07/21/17 00:19 0.4 MG Cabozantinib (Cabometyx) 60 mg DAILY@0500 PO 07/06/17 05:00 07/19/17 16:17 DC 07/19/17 05:19 60 MG Oxycodone HCl (Roxicodone Immediate Rel Tab) 10 mg TID PO 07/06/17 09:00 07/10/17 13:21 DC 07/10/17 09:00 10 MG Insulin Aspart (novoLOG ASPART) SLIDING SCALE G... ACHS SC 07/06/17 07:00 07/22/17 17:01 DC 07/20/17 12:46 2 UNITS Methylprednisolone Sodium Succinate 50 mg/Syringe 0.8 ml @ 1.5 mls/min NOW ONCE IV 07/06/17 03:45 07/06/17 03:56 DC 07/06/17 04:30 1.5 MLS/MIN Miscellaneous Information (Check Fentanyl Patch Placement) 1 ea QS N/A 07/06/17 08:00 08/05/17 07:59 07/25/17 08:00 1 EA Dextrose (Dextrose 50% 50ML Syringe) 25-50ML OF 50% DW IV FOR... UD PRN IV 07/06/17 04:15 08/05/17 04:14 07/06/17 05:40 25 ML Epoetin Mohsen 8000 units/Syringe 0.4 ml @ 1 mls/min TODAY@0945 IV. 07/06/17 09:45 07/06/17 12:00 DC 07/06/17 12:02 1 MLS/MIN Insulin Glargine (Lantus Solostar Pen) 7 units HS SC 07/06/17 21:00 07/16/17 17:50 DC 07/15/17 20:33 7 UNITS Enteral Nutritional Formula (Boost Glucose Control) 1 can BIDM PO 07/06/17 16:45 07/20/17 08:42 DC 07/20/17 08:26 1 CAN Heparin Sodium (Porcine) (Heparin 10 Unit/ ml 5 ml Flush) 5 ml STK-MED ONCE .ROUTE 07/06/17 21:06 07/06/17 21:07 DC 07/06/17 21:16 5 ML Miscellaneous (Fentanyl Patch Remove & Waste) 1 ea Q3D N/A 07/10/17 01:00 07/19/17 09:10 DC 07/19/17 08:54 1 EA Fentanyl (Duragesic Patch) 25 mcg Q3D TD 07/07/17 01:00 07/19/17 09:14 DC 07/19/17 08:53 25 MCG Heparin Sodium (Porcine) (Heparin 100 Unit/ml 5ml Flush) 5 ml PRN PRN IV 07/07/17 02:45 08/06/17 02:44 Future hold 07/21/17 05:21 5 ML Epoetin Mohsen 8000 units/Syringe 0.4 ml @ 1 mls/min TODAY@0600 IV. 07/08/17 06:00 07/08/17 18:00 DC 07/08/17 18:15 1 MLS/MIN Calcium Carbonate (Tums Chew Tab) 500 mg TIDM PO 07/07/17 17:00 07/21/17 15:11 DC 07/20/17 17:27 500 MG Methylprednisolone Sodium Succinate 40 mg/Syringe 0.64 ml @ 1.5 mls/min ONE STAT IV 07/09/17 17:39 07/09/17 18:31 DC 07/09/17 21:39 1.5 MLS/MIN Oxycodone HCl (Roxicodone Immediate Rel Tab) 10 mg TID PRN PO 07/10/17 14:00 07/14/17 09:02 DC 07/14/17 01:11 10 MG Ondansetron HCl (Zofran Inj) 4 mg STK-MED ONCE .ROUTE 07/10/17 21:38 07/10/17 21:39 DC 07/10/17 21:40 4 MG Ondansetron HCl (Zofran Inj) 4 mg Q4H PRN IV 07/11/17 03:00 08/10/17 02:59 07/17/17 21:50 4 MG Pantoprazole Sodium 40 mg/ Syringe 10 ml @ 5 mls/min DAILY@11 IV 07/11/17 11:00 07/13/17 15:05 DC 07/13/17 14:22 5 MLS/MIN Ondansetron HCl (Zofran Inj) 4 mg STK-MED ONCE .ROUTE 07/11/17 02:55 07/11/17 02:56 DC 07/11/17 02:58 4 MG Prochlorperazine Edisylate 5 mg/ Syringe 5 ml @ 5 mls/min 1200 ONCE IV 07/11/17 12:00 07/11/17 12:01 DC 07/11/17 13:02 5 MLS/MIN Lactulose (Chronulac Syrup) 30 gm NOW STAT PO 07/11/17 16:32 07/11/17 16:36 DC 07/11/17 17:38 30 GM Senna (Senokot Tab) 8.6 mg QAM PO 07/12/17 08:00 07/21/17 15:11 DC 07/17/17 08:57 8.6 MG Senna (Senokot Tab) 8.6 mg 1632 ONCE PO 07/11/17 16:32 07/11/17 16:36 DC 07/11/17 17:38 8.6 MG Polyethylene (Miralax Powder Packet) 17 gm DAILY PO 07/11/17 16:45 07/21/17 15:11 DC 07/18/17 07:50 17 GM Levalbuterol (Xopenex 0.63 Mg/ 3 Ml Neb) 0.63 mg NOW STAT INH 07/11/17 22:09 07/11/17 22:18 DC 07/11/17 22:31 0.63 MG Heparin Sodium (Porcine) (Heparin Sq 5000 Unit/0.5ml) 5,000 unit Q12 SQ 07/12/17 21:00 07/13/17 14:10 DC 07/12/17 20:44 5,000 UNIT Vancomycin HCl (Vancomycin Oral Soln) 250 mg Q6H PO 07/12/17 17:00 07/15/17 15:40 DC 07/15/17 13:17 250 MG Raspberry (Raspberry Syrup 5ml Cup) 5 ml Q6H PO 07/12/17 17:00 07/21/17 15:11 DC 07/21/17 05:43 5 ML Epoetin Mohsen (Procrit Inj) 20,000 units TODAY@1100 IV 07/13/17 11:00 07/13/17 18:02 DC 07/13/17 13:00 20,000 UNITS Iron Sucrose 100 mg/Syringe 5 ml @ 1 mls/min TODAY IV 07/13/17 11:00 07/13/17 18:02 DC 07/13/17 13:05 1 MLS/MIN Pantoprazole Sodium (Protonix Tab) 40 mg QAM PO 07/14/17 08:00 07/14/17 23:59 DC 07/14/17 10:09 40 MG Vancomycin HCl 1750 mg/Sodium Chloride 535 ml @ 200 mls/hr ONE ONCE IV 07/13/17 17:30 07/13/17 20:10 DC 07/13/17 19:12 200 MLS/HR Aztreonam 2000 mg/ Dextrose 110 ml @ 110 mls/hr ONE ONCE IV 07/13/17 17:30 07/14/17 15:02 DC 07/13/17 17:45 110 MLS/HR Aztreonam 500 mg/ Dextrose 55 ml @ 110 mls/hr Q12H IV 07/14/17 09:00 07/14/17 15:02 DC 07/14/17 10:13 110 MLS/HR Oxycodone HCl (Roxicodone Immediate Rel Tab) 10 mg Q4H PRN PO 07/14/17 09:15 07/21/17 15:11 DC 07/20/17 16:51 10 MG Methadone HCl (Dolophine Tab) 20 mg BID PO 07/14/17 09:30 07/20/17 17:01 DC 07/20/17 08:28 20 MG Prednisone (PredniSONE TAB) 40 mg DAILY PO 07/15/17 08:00 07/21/17 15:11 DC 07/20/17 08:30 40 MG Prednisone (PredniSONE TAB) 30 mg NOW ONCE PO 07/14/17 15:30 07/14/17 15:31 DC 07/14/17 16:14 30 MG Piperacillin Sod/ Tazobactam Sod 3.375 gm/Dextrose 115 ml @ 28.75 mls/ hr Q12@1000,2200 IV 07/14/17 22:00 07/19/17 13:14 DC 07/19/17 09:57 28.75 MLS/HR Piperacillin Sod/ Tazobactam Sod 3.375 gm/Dextrose 115 ml @ 230 mls/hr NOW ONCE IV 07/14/17 15:30 07/14/17 15:59 DC 07/14/17 16:15 230 MLS/HR Epoetin Mohsen (Procrit Inj) 10,000 units TODAY@1400 SC 07/15/17 14:00 07/15/17 18:00 DC 07/15/17 13:58 10,000 UNITS Vancomycin HCl (Vancomycin Oral Soln) 125 mg Q6H PO 07/15/17 17:00 07/21/17 15:11 DC 07/21/17 05:42 125 MG Vancomycin HCl 500 mg/Sodium Chloride 260 ml @ 125 mls/hr TODAY@1700 IV 07/15/17 17:00 07/15/17 20:00 DC 07/15/17 17:28 125 MLS/HR Insulin Glargine (Lantus Solostar Pen) 8 units HS SC 07/16/17 21:00 07/19/17 22:14 DC 07/19/17 21:58 6 UNITS Simethicone (Mylicon Chew Tab) 80 mg NOW STAT PO 07/17/17 23:07 07/17/17 23:08 DC 07/17/17 23:51 80 MG Vancomycin HCl 500 mg/Sodium Chloride 260 ml @ 125 mls/hr 1400 IV 07/18/17 14:00 07/18/17 16:05 DC 07/18/17 14:33 125 MLS/HR Epoetin Mohsen 8000 units/Syringe 0.4 ml @ 1 mls/min TODAY@1200 IV. 07/18/17 12:00 07/18/17 23:59 DC 07/18/17 13:12 1 MLS/MIN Miscellaneous (Fentanyl Patch Remove & Waste) 1 ea Q3D@0859 N/A 07/22/17 08:59 08/21/17 08:58 07/25/17 08:35 1 EA Fentanyl (Duragesic Patch) 25 mcg Q3D@0900 TD 07/22/17 09:00 08/05/17 08:59 07/25/17 08:33 25 MCG Epoetin Mohsen 8000 units/Syringe 0.4 ml @ 1 mls/min TODAY@0600 IV. 07/20/17 06:00 07/20/17 18:00 DC 07/20/17 22:50 1 MLS/MIN Levofloxacin (Levaquin Tab) 750 mg TODAY@1600 ONCE PO 07/19/17 16:00 07/19/17 16:01 DC 07/19/17 17:04 750 MG Insulin Glargine (Lantus Solostar Pen) 6 units HS SC 07/20/17 21:00 08/19/17 20:59 07/24/17 21:21 6 UNITS Ergocalciferol (Vitamin D Cap) 50,000 interunit Q7D@0900 PO 07/20/17 09:00 08/19/17 08:59 07/20/17 09:32 50,000 INTERUNIT Enteral Nutritional Formula (Boost) 1 can TID PO 07/20/17 14:00 07/21/17 15:12 DC 07/21/17 00:14 1 CAN Ranitidine HCl (zANTac TAB) 150 mg DAILY PO 07/20/17 13:00 07/21/17 15:12 DC 07/20/17 12:42 150 MG Methadone HCl (Dolophine Tab) 30 mg BID PO 07/20/17 20:00 07/21/17 17:31 DC 07/21/17 00:16 30 MG Piperacillin Sod/ Tazobactam Sod 3.375 gm/Dextrose 115 ml @ 200 mls/hr NOW ONCE IV 07/21/17 08:00 07/21/17 08:34 DC 07/21/17 10:32 200 MLS/HR Piperacillin Sod/ Tazobactam Sod 3.375 gm/Dextrose 115 ml @ 28.75 mls/ hr Q12H IV 07/21/17 20:00 07/22/17 11:18 DC 07/22/17 08:17 28.75 MLS/HR Fentanyl Citrate (Fentanyl Inj) 50 mcg Q5M PRN IV 07/21/17 11:45 07/21/17 16:45 DC 07/21/17 14:24 50 MCG Hydromorphone HCl (Dilaudid Inj) 0.5 mg Q5M PRN IV 07/21/17 11:45 07/21/17 16:45 DC 07/21/17 15:10 0.5 MG Furosemide 20 mg/ Syringe 2 ml @ 4 mls/min QAM IV 07/22/17 09:00 08/21/17 08:59 07/25/17 08:37 4 MLS/MIN Hydralazine HCl (HydrALAZINE INJ) 5 mg TID IV. 07/21/17 21:00 08/20/17 20:59 07/25/17 08:36 5 MG Metoprolol Tartrate (Lopressor Iv) 2.5 mg Q6 IV. 07/21/17 18:00 07/22/17 08:59 DC 07/22/17 00:00 2.5 MG Methylprednisolone Sodium Succinate 40 mg/Syringe 0.64 ml @ 1.5 mls/min DAILY IV 07/22/17 09:00 08/21/17 08:59 07/25/17 08:36 1.5 MLS/MIN Fentanyl Citrate (Fentanyl Inj) Fentanyl 25-50 mcg... Q4H PRN IV 07/21/17 20:45 08/04/17 20:44 07/24/17 05:47 50 MCG Metoprolol Tartrate (Lopressor Iv) 5 mg Q6 IV. 07/22/17 12:00 08/20/17 17:59 07/25/17 11:43 5 MG Metronidazole 500 mg/Prmx 100 ml @ 100 mls/hr Q8@04,12,20 IV 07/22/17 12:00 08/05/17 11:59 07/25/17 11:43 100 MLS/HR Nutrition (Parenteral) 0 ml @ 0 mls/hr TODAY@1600 IV 07/22/17 16:00 07/23/17 15:59 DC 07/22/17 16:22 0 MLS/HR Vancomycin HCl 750 mg/Sodium Chloride 265 ml @ 125 mls/hr NOW ONCE IV 07/22/17 11:30 07/22/17 13:37 DC 07/22/17 12:38 125 MLS/HR Cefepime HCl 500 mg/Syringe 5.5 ml @ 5.5 mls/min DAILY@1600 IV 07/23/17 16:00 08/02/17 15:59 07/24/17 15:22 5.5 MLS/MIN Cefepime HCl 1000 mg/Syringe 11 ml @ 5.5 mls/min TODAY@1800 ONCE IV 07/22/17 18:00 07/22/17 18:01 DC 07/22/17 18:17 5.5 MLS/MIN Insulin Aspart (novoLOG ASPART) SLIDING SCALE G... Q6 SC 07/22/17 18:00 08/21/17 17:59 07/25/17 11:49 7 UNITS Albumin Human (Albumin 25%) 25 gm ONE ONCE IV 07/23/17 09:30 07/23/17 09:31 DC 07/23/17 10:30 25 GM Epoetin Mohsen 8000 units/Syringe 0.4 ml @ 1 mls/min 1000 ONCE IV. 07/23/17 10:00 07/23/17 10:01 DC 07/23/17 13:05 1 MLS/MIN Nutrition (Parenteral) 0 ml @ 0 mls/hr TODAY@1600 IV 07/23/17 16:00 07/24/17 15:59 DC 07/23/17 14:43 0 MLS/HR Vancomycin HCl 1000 mg/Sodium Chloride 270 ml @ 125 mls/hr TODAY@1415 IV 07/23/17 14:15 07/23/17 18:00 DC 07/23/17 14:46 125 MLS/HR Methadone HCl (Dolophine Tab) 20 mg BID PO 07/23/17 21:00 07/25/17 08:49 DC 07/24/17 21:22 20 MG Morphine Sulfate (MoRPHine SULFATE INJ) 2 mg Q3RWA PRN IV 07/24/17 11:30 08/07/17 11:29 07/25/17 09:41 2 MG Nutrition (Parenteral) 0 ml @ 0 mls/hr TODAY@1600 IV 07/24/17 16:00 07/25/17 15:59 07/24/17 15:22 66.1 MLS/HR Insulin Human Regular 8 units/ Syringe 8 ml @ 30 mls/min TODAY@0030 IV 07/25/17 00:30 07/25/17 00:31 DC 07/25/17 00:57 30 MLS/MIN Non-Formulary Medication (Patient'S Own Controlled Med) 1 ea BID PEG 07/25/17 09:00 08/08/17 08:59 07/25/17 09:00 1 EA Methadone HCl (Methadone HCl) 20 mg BID GT 07/25/17 09:00 08/08/17 08:59 07/25/17 09:35 20 MG Subjective Covering from resection of jejunum after experiencing recent perforation of a jejunal diverticulum. Dialysis continues. His TK inhibitor of course has been held. Review of Systems: Constitutional: Negative for night sweats, or fever Eyes: Negative for event change of vision ENT: Negative for epistaxis, nasal discharge, sore throat, or deafness Cardiovascular: Negative for chest pain, palpitations, dizziness, diaphoresis Respiratory: Negative for new shortness of breath,hemoptysis, or purulent cough Gastrointestinal: Status post surgery for jejunal perforation Integumentary (skin): Negative for new rash or jaundice discoloration Genitourinary: Negative for urinary frequency, hematuria, or dysuria Neurological: Negative for weakness, seizure activity, headache, or dizziness Lymphatic/Hematologic: Negative for petechiae, bleeding or new adenopathy Musculoskeletal: Negative for new joint or back pain Allergic/Immunologic: Negative for unusual rash or pruritis. Vital Signs Vital Signs Past 12 Hours Date Time Temp Pulse Resp B/P (MAP) Pulse Ox O2 Delivery O2 Flow Rate FiO2 07/25/17 11:43 106 180/73 07/25/17 08:00 Oxymask 4.0 07/25/17 07:37 36.8 106 20 180/73 (108) 96 Oxymask 4.0 07/25/17 05:47 103 154/73 07/25/17 04:00 Oxymask 4.0 07/25/17 03:30 36.9 103 18 154/73 (100) 95 Nasal Cannula 4.0 07/25/17 00:44 105 147/70 Physical Exam Constitutional: vitals are stable. Eyes: Eyes are YSABEL EOMI without conjuctival erythema or icterus. ENT: External examination was negative for masses. Neck: Negative for masses or palpable thyromegaly Respiratory: Lung sounds were generally clear bilaterally. He apparently complained of shortness of breath earlier but he states that that seems to have resolved. Cardiovascular: Heart was RRR without significant murmur, gallops aoe rubs Gastrointestinal: Abdomen distended bowel sounds are decreased. Midline bandage from recent surgery Lymphatic system: there was no palpable peripheral lymphadenopathy Musculoskeletal System: The musculoskeletal system seemed concordant with age. Skin: The skin was negative for jaundice. Neurologic exam: The exam was negative for any focal findings. Deep tendon reflexes were equal and symmetrical. Psychiatric exam: Was essentially negative with normal mood and effect. Extremities: Negative for edema. Previous left arm cellulitis appears better Laboratory Last 24 Hours Test 07/24/17 17:22 07/25/17 00:08 07/25/17 04:20 07/25/17 06:10 Bedside Glucose 282 mg/dl 303 mg/dl 229 mg/dl White Blood Count 10.76 K/uL Red Blood Count 3.34 M/uL Hemoglobin 9.8 g/dL Hematocrit 30.0 % Mean Corpuscular Volume 89.8 fL Mean Corpuscular Hemoglobin 29.3 pg Mean Corpuscular Hemoglobin Concent 32.7 g/dl RDW Standard Deviation 64.8 fL RDW Coefficient of Variation 21.2 % Platelet Count 76 K/uL Mean Platelet Volume 9.9 fL Nucleated RBC Absolute Count (auto) 0.40 K/uL Nucleated Red Blood Cells % 3.7 % Sodium Level 139 mmol/L Potassium Level 4.0 mmol/L Chloride Level 109 mmol/L Carbon Dioxide Level 23 mmol/L Anion Gap 7.0 mmol/L Blood Urea Nitrogen 90 mg/dl Creatinine 4.18 mg/dl Est Creatinine Clear Calc Drug Dose 18.7 ml/min Estimated GFR () 16.4 Estimated GFR (Non- 14.1 BUN/Creatinine Ratio 21.5 Random Glucose 257 mg/dl Calcium Level 7.0 mg/dl Phosphorus Level 1.8 mg/dl Magnesium Level 2.2 mg/dl Total Bilirubin 0.2 mg/dl Direct Bilirubin < 0.1 mg/dl Aspartate Amino Transf (AST/SGOT) 17 U/L Alanine Aminotransferase (ALT/SGPT) 22 U/L Alkaline Phosphatase 63 U/L Total Protein 4.2 gm/dl Albumin 1.4 gm/dl Random Vancomycin Level 17.6 mcg/ml Test 07/25/17 10:56 Bedside Glucose 251 mg/dl Assessment & Plan Scans reviewed. The TK inhibitor has been held. It is possible that it contributed to the jejunal perforation. Diverticuli noted in several areas of the jejunum during surgery. He also has a history of C. difficile colitis. In any case he certainly has had his medical struggles. Abdominal Lymphadenopathy that we have been following has decreased however the therapy required may not be able to be further administered for fear that we may create more problems than be helpful at this juncture. Further conversations are going to have to take place about alternatives or frankly the lack of treatment alternatives and/or the side effects that he may encounter with further therapy for his metastatic renal ca.
[2017-07-25] MEDS ORDERED: FENTANYL CITRATE INJ 50 MCG/1 ML 2 ML VIAL ONE (12:23)
[2017-07-25] MEDS ORDERED: MIDAZOLAM HCL 1 MG/ML 2ML VIAL ONE (12:23)
[2017-07-25] MEDS ORDERED: FENTANYL CITRATE INJ 50 MCG/1 ML 2 ML VIAL IV PRN (13:00)
[2017-07-25] MEDS ORDERED: ATROPINE SULFATE 0.1 MG/ML 5ML SYR IV PRN (13:00)
[2017-07-25] MEDS ORDERED: EpHEDrine SULFATE INJ 50 MG/ML AMP IV PRN (13:00)
[2017-07-25] MEDS ORDERED: ONDANSETRON INJ 2 MG/ML 2 ML VIAL IV PRN (13:00)
[2017-07-25] MEDS ORDERED: PROMETHAZINE HCL INJ 6.25 MG in SODIUM CHLORIDE 0.9% 50ML 50 ML IV PRN (13:00)
--- NOTE | 2017-07-25 13:00 | Progress Note ---
Subjective Date of Service: Jul 25, 2017. Problem List Medical Problems: (1) Acute dyspnea Status: Acute (2) Chronic kidney disease Status: Acute (3) Failure of outpatient treatment Status: Acute (4) Left arm cellulitis Status: Acute (5) Renal cell carcinoma Status: Acute Objective Vital Signs Date Time Temp Pulse Resp B/P (MAP) Pulse Ox O2 Delivery O2 Flow Rate FiO2 07/25/17 12:00 Oxymask 4.0 07/25/17 11:43 106 180/73 07/25/17 10:58 36.6 112 20 169/82 (111) 92 Oxymask 4.0 07/25/17 08:00 Oxymask 4.0 07/25/17 07:37 36.8 106 20 180/73 (108) 96 Oxymask 4.0 07/25/17 05:47 103 154/73 07/25/17 04:00 Oxymask 4.0 07/25/17 03:30 36.9 103 18 154/73 (100) 95 Nasal Cannula 4.0 07/25/17 00:44 105 147/70 07/24/17 23:59 Oxymask 4.0 07/24/17 23:20 36.6 105 18 147/70 (95) 95 Oxymask 4.0 07/24/17 20:00 93 Nasal Cannula 4.0 07/24/17 18:56 36.9 105 22 163/72 (102) 93 Nasal Cannula 4.0 07/24/17 17:19 107 167/71 07/24/17 16:00 Nasal Cannula 4.0 07/24/17 15:48 36.8 107 20 167/71 (103) 94 Nasal Cannula 4.0 Laboratory Results Last 24 Hours Test 07/24/17 17:22 07/25/17 00:08 07/25/17 04:20 07/25/17 06:10 Bedside Glucose 282 mg/dl 303 mg/dl 229 mg/dl White Blood Count 10.76 K/uL Red Blood Count 3.34 M/uL Hemoglobin 9.8 g/dL Hematocrit 30.0 % Mean Corpuscular Volume 89.8 fL Mean Corpuscular Hemoglobin 29.3 pg Mean Corpuscular Hemoglobin Concent 32.7 g/dl RDW Standard Deviation 64.8 fL RDW Coefficient of Variation 21.2 % Platelet Count 76 K/uL Mean Platelet Volume 9.9 fL Nucleated RBC Absolute Count (auto) 0.40 K/uL Nucleated Red Blood Cells % 3.7 % Sodium Level 139 mmol/L Potassium Level 4.0 mmol/L Chloride Level 109 mmol/L Carbon Dioxide Level 23 mmol/L Anion Gap 7.0 mmol/L Blood Urea Nitrogen 90 mg/dl Creatinine 4.18 mg/dl Est Creatinine Clear Calc Drug Dose 18.7 ml/min Estimated GFR () 16.4 Estimated GFR (Non- 14.1 BUN/Creatinine Ratio 21.5 Random Glucose 257 mg/dl Calcium Level 7.0 mg/dl Phosphorus Level 1.8 mg/dl Magnesium Level 2.2 mg/dl Total Bilirubin 0.2 mg/dl Direct Bilirubin < 0.1 mg/dl Aspartate Amino Transf (AST/SGOT) 17 U/L Alanine Aminotransferase (ALT/SGPT) 22 U/L Alkaline Phosphatase 63 U/L Total Protein 4.2 gm/dl Albumin 1.4 gm/dl Random Vancomycin Level 17.6 mcg/ml Test 07/25/17 10:56 Bedside Glucose 251 mg/dl Assessment and Plan Mr. Christy is a 61 yo M with PMH of ESRD on HD, RCC, DMII. Admitted for L hand cellulitis having failed outpatient management. Abdominal pain, found to have incidental rectus sheath hematoma, C.diff positive colitis and subsequent bowel perforation on 07/21, now s/p colectomy, anemia, and bilateral pneumonia on imaging. Abdominal pain, c diff colitis, perforated jejunal bowel, s/p colectomy, rectus sheath hematoma: Diarrhea - C.Diff - remains afebrile - C.diff positive - unable to take oral vanc at this time, is on IV vanc for other issue (hand cellulitis), and may receive some benefit. However, necessary to treat perforation at this time, dialysis will aid the anasarca, and hopefully resumption of oral vanc can be done MARTHA. - Adequate pain control with fentanyl patch 25-50 mcg q4h POD # 4 from small bowel resection due to jejunal diverticular perforation. - Per surgery, continue ng tube until flattus, pt does report flattus 07/25/17 - Pain controlled on methadone and morphine IV PRN Metastatic Renal cell cancer - Cabozantinib held due to likely inciting his small intestinal inflammation/ perforation - On consulted and agree with recs at this time ESRD HD secondary to RCC/ s/p left nephrectomy - Nephrology Consulted - Receives HD on Tuesdays, and Saturdays - unable to receive dialysis yesterday due to technical problems, US doppler shows sign stenosis. - IJ placed 07/23 to initiate dialysis, Vascular surg consulted for AVF repair - hypocalcemia; Vit D level of 9.4, supplement with ergocalciferol [id number] indefinitely plus daily D3 2000 when patient resumes oral intake - Recheck levels in 12 weeks Left hand cellulitis - persists, stable - ID consulted. 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 - started on methadone, morphine PRN DMII - 7 units of Lantus with sliding scale - due to abdominal pain, pt refusing insulin at this time. - BSG AC HS Anemia - nephrology -> continue epogen 74908 units and venofer 100mg - continue to monitor HTN/hyperlipidemia - asa 81 mg DCd while NPO: if prolonged NPO, consider aspirin suppositories in 48 hours - furosemide 20 IV daily; check daily BMP and monitor status- - hydralazine 100 mg tid-->converted to 5 TID scheduled, hold sys <120 - amlodipine 10 mg daily--> converted to 5 hydralazine prn for systolic >180 - metoprolol 150 mg bid-->IV 2.5 q6 - lisinopril 40 mg daily held while pressures are assessed in ICU. - simvastatin 20 mg daily DCd while NPO - I&O and daily weights BPH - continue tamsulosin 0.4 mg (held while in NPO) ESRD Bone Mineral Disease - Continue oral Calcitriol - Continue CaCO3 500 mg with meals DVT Prophylaxis: SCDs Code: Full Continued [facility] stay due to: inadequate oral pain control, other (O2 requirement ) Discharge planning: other (hope to be able to transfer to rehab when medically stable)
--- NOTE | 2017-07-25 14:09 | [facility] Post Operative Brief Note ---
Immediate Operative Summary Operative Date Jul 25, 2017. Pre-Operative Diagnosis Malfunctioning Fistula Post-Operative Diagnosis Same Procedure(s) Performed Fistulogram, Coil Embolization of side branches, Surgeon Dr. Darden [employer] Surgeon(s) None Estimated Blood Loss 5 Findings good thrill Fluids (cc crystalloids) 500 cc crystalloid, 310 cc prbc (1 unit) Specimens None Anesthesia MAC Complication(s) None Disposition Recovery Room / PACU
--- NOTE | 2017-07-25 14:19 | [facility] Operative Report ---
Operative Report Operative Date Jul 25, 2017. Pre-Operative Diagnosis Malfunctioning Fistula Post-Operative Diagnosis Same Procedure(s) Performed Fistulogram, Coil Embolization of side branches, Surgeon Dr. Darden Electrical Appliance Repairer Surgeon(s) None Estimated Blood Loss 5 Findings good thrill Fluids 500 cc crystalloid, 310 cc prbc (1 unit) Specimens None Drains none Anesthesia MAC Complication(s) None Disposition Recovery Room / PACU Indications This is a 61-year-old male with a left upper arm fistula in place. He was found to have stenosis on ultrasound. Fistulogram and possible intervention was recommended. I have discussed the risks options and benefits of the procedure with the patient. The patient understands the risks options and benefits and agrees to the procedure. Description of Procedure The patient was taken to the angiogram suite and placed in the supine position. The left upper arm was then prepped and draped in a sterile manner. Local anesthetic was administered and a percutaneous puncture was then made of the proximal portion of the left upper arm AV fistula using micropuncture technique. Micropuncture wire and sheath were then inserted. A fistulogram was then performed. The fistulogram showed a widely patent cephalic vein fistula. There is no evidence of stenosis within the fistula either in the peripheral or central veins. There was 2 large branches coming off the midportion of the fistula with a significant amount of flow present. It was decided to embolize these branches. We inserted a wire and exchanged the micropuncture sheath for a 5 Afghan sheath. Using an 035 Glidewire and a angled glide catheter the more distal of the branches was cannulated. This was confirmed with contrast. We then inserted three 6 mm coils to occlude the fistula branch. The catheter was removed from the branch and pulled further down the fistula. The more proximal branch was then cannulated again with an 035 wire and the angled glide catheter. Four 6 mm coils were placed in this branch. Completion fistulogram showed the more distal branch to be totally occluded and the more proximal branch with markedly decreased flow. There is an excellent thrill in the fistula that time. The sheath was then pulled and pressure was applied. Adequate hemostasis was obtained. The patient left the angiogram suite in good condition and tolerated the procedure well. I attest to the content of the Intraoperative Record and any orders documented therein. Any exceptions are noted below.
--- NOTE | 2017-07-25 14:34 | Anesthesiology Progress Note ---
Anesthesia Post Op Note Date & Time Jul 25, 2017 at 14:33 Vital Signs Pain Intensity: 5.0 Vital Signs Past 12 Hours Date Time Temp Pulse Resp B/P (MAP) Pulse Ox O2 Delivery O2 Flow Rate FiO2 07/25/17 12:00 Oxymask 4.0 07/25/17 11:43 106 180/73 07/25/17 10:58 36.6 112 20 169/82 (111) 92 Oxymask 4.0 07/25/17 08:00 Oxymask 4.0 07/25/17 07:37 36.8 106 20 180/73 (108) 96 Oxymask 4.0 07/25/17 05:47 103 154/73 07/25/17 04:00 Oxymask 4.0 07/25/17 03:30 36.9 103 18 154/73 (100) 95 Nasal Cannula 4.0 Notes Mental Status: alert / awake / arousable, participated in evaluation Pt Amnestic to Procedure: Yes Nausea / Vomiting: adequately controlled Pain: adequately controlled Airway Patency, RR, SpO2: stable & adequate BP & HR: stable & adequate Hydration State: stable & adequate Anesthetic Complications: no major complications apparent
[2017-07-25] MEDS ORDERED: CUSTOM CENTRAL PN 1 BAG IV SCH (16:00)
[2017-07-25] MEDS: CEFEPIME IV 500 MG in SYRINGE 0 ML IV SCH (16:32)
[2017-07-25] MEDS: INSULIN GLARGINE SOLOSTAR 100 UNITS/ML 3 ML PEN SC SCH (21:28)
[2017-07-26] VITALS (36 sets, daily range): BP systolic 84–192; BP diastolic 50–88; PULSE 81–143; TEMP 36.5–37.2; O2SAT 87–94
[2017-07-26] MEDS: METOPROLOL TARTRATE 1 MG/ML VIAL IV. SCH ×5 (01:05→23:54)
[2017-07-26] MEDS: CHECK FENTANYL PATCH PLACEMENT SCH ×4 (01:05→23:55)
[2017-07-26] MEDS: INSULIN ASPART 100 UNITS/ML 3 ML PEN SC SCH ×6 (01:13→23:53)
[2017-07-26] MEDS ORDERED: FUROSEMIDE INJ 40 MG in SYRINGE 0 ML IV ONE (03:00)
[2017-07-26] MEDS ORDERED: FUROSEMIDE 40 MG/4 ML VIAL IV ONE (03:45)
[2017-07-26] MEDS: METRONIDAZOLE 500MG / NSS IV SCH ×3 (04:06→21:53)
[2017-07-26 05:10] LABS: HEMATOCRIT 33.9 % (42-52); HEMOGLOBIN 11.3 g/dL (14.0-18.0)
[2017-07-26 05:36] LABS: CALCIUM 7.2 mg/dl (8.5-10.1); CREATININE 4.66 mg/dl (0.60-1.40); POTASSIUM 3.9 mmol/L (3.5-5.1)
[2017-07-26] MEDS: METHYLPREDNISOLONE IV 40 MG in SYRINGE 0 ML IV SCH (07:55)
[2017-07-26] MEDS: FUROSEMIDE INJ 20 MG in SYRINGE 0 ML IV SCH (07:56)
[2017-07-26] MEDS: HydrALAZINE HCL 20 MG/ML VIAL IV. SCH ×3 (07:56→21:54)
[2017-07-26] MEDS ORDERED: EPOETIN ALFA 4000 UNITS/ML VIAL IV SCH (08:00)
--- NOTE | 2017-07-26 08:07 | Anesthesiology Progress Note ---
Anesthesia Post Op Note Date & Time Jul 26, 2017 at 08:06 Vital Signs Vital Signs Past 12 Hours Date Time Temp Pulse Resp B/P (MAP) Pulse Ox O2 Delivery O2 Flow Rate FiO2 07/26/17 05:40 110 176/83 07/26/17 05:03 90 8.0 07/26/17 04:29 36.5 116 23 176/83 (114) 89 CPAP 07/26/17 04:00 CPAP 6.0 07/26/17 03:39 115 93 07/26/17 01:05 116 182/83 07/26/17 00:00 Oxymask 6.0 07/25/17 23:33 36.8 114 24 201/92 (128) 96 Oxymask 8.0 Notes Mental Status: alert / awake / arousable, participated in evaluation Pt Amnestic to Procedure: Yes Nausea / Vomiting: adequately controlled Pain: adequately controlled Airway Patency, RR, SpO2: stable & adequate BP & HR: stable & adequate Hydration State: stable & adequate Anesthetic Complications: no major complications apparent Pt. currently on BIPAP, satting 88%, due for dialysis today. Respiratory status most likely due to volume overload, dialysis scheduled at 0800.
[2017-07-26] MEDS: PATIENT'S OWN CONTROLLED MED PEG SCH ×2 (08:12→21:53)
[2017-07-26] MEDS: METHADONE ORAL SOLN 2 MG/1ML GT SCH ×2 (08:12→21:52)
[2017-07-26] MEDS: MoRPHine SULFATE 2 MG/ML CARP IV PRN (08:42)
[2017-07-26] MEDS ORDERED: NovoLIN-N (NPH) PER UNIT CHARGE SQ ONE (08:45)
--- NOTE | 2017-07-26 09:53 | Surgery Progress Note ---
Surgery Progress Note Date of Service Jul 26, 2017. Subjective Post OP Day: 5 (s/p ex lap, small bowel resection with primary anastomosis) Patient has CPAP currently on Shortness of breath+ No chest pain or pressure Abdominal pain mostly at incision site (Has baseline Chronic pain with use of Fentanyl patch and Methadone). States abdominal pain is getting better each day not worse Passing flatus Per nurse he complained of chills this am but afebrile overnight and temp 37.0 this am Objective Vital Signs: Date Time Temp Pulse Resp B/P (MAP) Pulse Ox O2 Delivery O2 Flow Rate FiO2 07/26/17 09:40 120 192/79 (116) 91 BiPAP 07/26/17 07:33 37.0 113 20 181/82 (115) 90 BiPAP 07/26/17 05:40 110 176/83 07/26/17 05:03 90 8.0 07/26/17 04:29 36.5 116 23 176/83 (114) 89 CPAP 07/26/17 04:00 CPAP 6.0 07/26/17 03:39 115 93 07/26/17 01:05 116 182/83 07/26/17 00:00 Oxymask 6.0 07/25/17 23:33 36.8 114 24 201/92 (128) 96 Oxymask 8.0 07/25/17 20:00 Oxymask 4.0 07/25/17 18:58 36.8 106 20 180/84 (116) 94 Nasal Cannula 4.0 07/25/17 18:14 111 197/98 07/25/17 18:09 114 197/98 (131) 94 Nasal Cannula 4.0 07/25/17 17:09 108 179/94 (122) 96 Nasal Cannula 4.0 07/25/17 16:09 104 188/84 (118) 96 Oxymask 4.0 07/25/17 16:03 166 166/74 (104) 96 Oxymask 4.0 07/25/17 16:00 Oxymask 4.0 07/25/17 15:32 105 172/96 (121) 96 Oxymask 4.0 07/25/17 15:02 106 178/95 (122) 95 Oxymask 4.0 07/25/17 14:52 36.8 106 20 186/82 (116) 93 Oxymask 4.0 07/25/17 14:30 37.5 104 16 176/90 96 Oxymask 4 07/25/17 14:20 112 16 187/84 96 Oxymask 4 07/25/17 14:10 37.6 110 16 171/81 96 Oxymask 7 Arterial Line 07/25/17 12:00 Oxymask 4.0 07/25/17 11:43 106 180/73 07/25/17 10:58 36.6 112 20 169/82 (111) 92 Oxymask 4.0 Physical Exam: nasogastric drainage (light brown output) General Appearance: + mild distress, + pertinent finding Head: normocephalic, atraumatic Neck: trachea midline, + pertinent finding (CPAP present) Respiratory/Chest: no respiratory distress, no accessory muscle use Cardiovascular: + tachycardia Abdomen: non distended, soft, + tenderness (at midline incision with some voluntary guarding, no peritonitis) Incision(s): clean, dry, intact, no erythema, no drainage, findings (mario intact) Laboratory Results: Results Past 24 Hours Test 07/25/17 10:56 07/25/17 13:04 07/25/17 14:19 07/25/17 18:20 Range/Units Bedside Glucose 251 242 273 288 70-99 mg/dl Test 07/26/17 01:02 07/26/17 05:01 07/26/17 05:48 07/26/17 06:58 Range/Units Bedside Glucose 288 267 297 70-99 mg/dl Hemoglobin 11.3 14.0-18.0 g/dL Hematocrit 33.9 42-52 % Sodium Level 142 136-145 mmol/L Potassium Level 3.9 3.5-5.1 mmol/L Chloride Level 114 98-107 mmol/L Carbon Dioxide Level 20 21-32 mmol/L Anion Gap 8.0 3-11 mmol/L Blood Urea Nitrogen 117 7-18 mg/dl Creatinine 4.66 0.60-1.40 mg/dl Est Creatinine Clear Calc Drug Dose 16.8 ml/min Estimated GFR () 14.4 Estimated GFR (Non- 12.4 BUN/Creatinine Ratio 25.1 10-20 Random Glucose 302 70-99 mg/dl Calcium Level 7.2 8.5-10.1 mg/dl Phosphorus Level 2.0 2.5-4.9 mg/dl Magnesium Level 2.0 1.8-2.4 mg/dl Beta-Hydroxybutyric Acid 0.64 0.2-2.81 mg/dL Assessment & Plan POD # 5 s/p ex lap, small bowel resection due to small bowel diverticular perforation - +flatus, small amounts - NGT with light brown output, 500 cc yesterday in 24 hours - +bowel sounds, abdomen soft Plan: Continue current pain management Continue cardiac monitoring Continue CPAP, Keep O2 sats > 92% Continue NGT, do not want to remove to soon only passing small amounts of gas. Unfortunately with patients chronic pain and narcotics he most likely has post operative ileus. Abdomen is soft and pain improving per patient. Hopeful to discontinue NGT tomorrow. Continue IV Abx Continue TPN OOB to chair Continue SCDs Repeat am labs Continue PT/OT Continue current medical management Dr. Siddiqui has seen and examined patient, agrees with above
[2017-07-26] MEDS: LISINOPRIL 40 MG TAB PO SCH (09:58)
[2017-07-26] MEDS: LACTOBACILLUS ACIDOPHILUS (FLORANEX) TAB PO SCH ×3 (09:59→21:53)
--- NOTE | 2017-07-26 10:12 | Pharmacy Progress Note ---
Pharmacy Glycemic Short Note 2 Date of Service Jul 26, 2017. Glycemic and parenteral nutrition consult: ASSESSMENT: 07/26/17 * Mr. Christy is now POD #5 s/p ex lap with bowel resection after bowel perforation - now with bowel sounds and flatus * He is scheduled to receive dialysis today * His main issue from a glycemic/parenteral nutrition standpoint is consistently elevated BSGs, going on day #4, after fairly aggressive insulin adjustments * I spoke with Dr. Stern this morning regarding a plan. Ideally, an insulin drip would be the best option to control BSGs as well as determine insulin needs. Other options are giving NPH this morning prior to aggressively increasing in the TPN. As per our discussion, since patient is improving from a GI standpoint and may be transitioning to po soon, will hold off on the insulin drip today and re-assess tomorrow. He confirmed that steroids will remain the same for today. * Regarding glycemic control: * He received ~80 units total of insulin over the past 24 hours (45 units of insulin in the TPN) * Will increase insulin in the TPN to 90 units * Will plan to tighten the goal range and change to q4h for the Novolog to provide additional correctional insulin * Since the increase of insulin in the TPN will not occur until 1600 today, will give a dose of NPH to cover needs until that time (giving 1/2 of increase in dose in TPN) * Regarding parenteral nutrition: * Macronutrients - AA remain at goal, dextrose will continue to NOT be advanced due to elevated BSGs, no lipids today as he received them yesterday * Micronutrients - Patient will receive dialysis today. Only adjustment will be a minor increase in sodium phosphate. 07/25/17 * Mr. Christy is scheduled for a fistulogram with possible intervention today * Today is day #4 of parenteral nutrition and BSGs remain difficult to control * Regarding glycemic control: * With insulin the TPN, he received ~55 units of insulin over the past 24 hours * He remains on IV Solu-medrol * Dextrose was increased in the TPN yesterday but will NOT increase any further until BSGs are better controlled * Will plan to continue the same basal dose and increase insulin in the TPN since BSG elevation has been related to the TPN * Will tighten the CF as well to provide additional SQ insulin if necessary * Regarding parenteral nutrition: * Macronutrients - AA already at goal, dextrose will not be advanced further today, will provide lipids today to provide additional calories since we have had to slowly titrate up on dextrose * Micronutrients - noted nephrology's note that lytes are acceptable, only making minor changes to TPN today since phos remains slightly low and K is steadily dropping. Noted that patient will not receive dialysis today. PLAN FOR INPATIENT GLYCEMIC CONTROL: * Continue Lantus 6 units qHS * Give NPH 20 units x 1 this AM * Change Novolog to q4h * TIGHTEN goal to 110-140 * Continue CF of 15 * Increase insulin in TPN to 90 units PLAN FOR PARENTERAL NUTRITION For day 5 of PN administration, the following will be ordered: Macronutrients Amino acids 125 grams/day Dextrose 200 grams/day Lipids 0 grams/day Micronutrients Sodium acetate 70 mEq Potassium acetate 10 mEq Calcium gluconate 2.3 mEq Sodium phosphate 18 mMol Multivitamins 10 mL Trace Elements 1 mL Regular insulin 90 units Total volume 1598 mL (minimum) to be infused over 24 hrs will provide 1180 kcal /day Labs, as indicated, will be ordered per protocol Pharmacy will continue to follow and adjust parenteral nutrition orders on a daily basis. Thank you for allowing us to participate in the care of this patient.
[2017-07-26] MEDS ORDERED: NURSING VERBAL MED ORDER ONE (10:45)
--- NOTE | 2017-07-26 10:57 | Nephrology Progress Note ---
Nephrology Progress Note Date of Service Jul 26, 2017. Chief Complaint ESRD Subjective No acute events overnight. No complaints this morning. Padilla reports fair pain control. He was resting comfortably with NIPPV. He denies shortness of breath or fevers or chills. He denies chest pain. Padilla was seen and evaluated during hemodialysis. Qb and BP appropriate. Review of Systems A complete review of systems was performed. Pertinent positives are noted above. All other systems are negative. Vital Signs Last 8 Hrs Date Time Temp Pulse Resp B/P (MAP) Pulse Ox O2 Delivery O2 Flow Rate FiO2 07/26/17 09:40 120 192/79 (116) 91 BiPAP 07/26/17 08:00 90 CPAP 8.0 07/26/17 07:33 37.0 113 20 181/82 (115) 90 BiPAP 07/26/17 05:40 110 176/83 07/26/17 05:03 90 8.0 07/26/17 04:29 36.5 116 23 176/83 (114) 89 CPAP 07/26/17 04:00 CPAP 6.0 07/26/17 03:39 115 93 Last Recorded Weight Weight (Kilograms): 86.700 Physical Exam General Appearance: WD/WN, no apparent distress, + pertinent finding ( generalized weakness) Head: normocephalic, atraumatic Eyes: normal inspection, sclerae normal ENT: normal ENT inspection, pharynx normal, + pertinent finding (oral mucosa dry NGT intact) Neck: supple, no JVD Respiratory/Chest: no respiratory distress, no accessory muscle use, + decreased breath sounds, + rales Cardiovascular: regular rate, rhythm, no gallop Abdomen/GI: non tender, soft, + pertinent finding (abdominal incision DCI) Extremities/Musculoskelatal: normal inspection, no pedal edema Neurologic/Psych: alert, + depressed affect Family History Cervical cancer Diabetes mellitus Heart disease Hypertension Myocardial infarction Pancreatic cancer Prostate cancer Negative for CKD/ESRD Social History Smokeless Tobacco Use: No Alcohol Use: none Drug Use: none Marital Status: single Housing Status: lives alone Occupation: disabled Single, retired. Formerly worked for [employer]. Never a smoker. Laboratory Results Past 24 Hours 07/26/17 05:01 07/26/17 05:01 Test 07/25/17 10:56 07/25/17 13:04 07/25/17 14:19 07/25/17 18:20 Bedside Glucose 251 mg/dl (70-99) 242 mg/dl (70-99) 273 mg/dl (70-99) 288 mg/dl (70-99) Test 07/26/17 01:02 07/26/17 05:01 07/26/17 05:48 07/26/17 06:58 Bedside Glucose 288 mg/dl (70-99) 267 mg/dl (70-99) 297 mg/dl (70-99) Anion Gap 8.0 mmol/L (3-11) Est Creatinine Clear Calc Drug Dose 16.8 ml/min Estimated GFR () 14.4 Estimated GFR (Non- 12.4 BUN/Creatinine Ratio 25.1 (10-20) Calcium Level 7.2 mg/dl (8.5-10.1) Phosphorus Level 2.0 mg/dl (2.5-4.9) Magnesium Level 2.0 mg/dl (1.8-2.4) Beta-Hydroxybutyric Acid 0.64 mg/dL (0.2-2.81) Allergies Coded Allergies: Iodinated Diagnostic Agents (Verified Allergy, Unknown, oil based, severe headaches, 06/20/17) EVENT OCCURED IN 1971, PT STATES HE HAS HAD 3 DIFFERENT WATER BASED IVP DYES WITH NO ISSUE Medications Current Inpatient Medications Medications (Trade) Dose Ordered Sig/Edward Route Start Time Stop Time Status Last Admin Dose Admin Lactobacillus Acidophilus (Floranex Tab) 2 tab TID PO 07/06/17 09:00 08/05/17 08:59 07/26/17 09:59 2 TAB Lisinopril (Zestril Tab) 40 mg DAILY PO 07/06/17 09:00 08/05/17 08:59 07/26/17 09:58 40 MG Miscellaneous Information (Check Fentanyl Patch Placement) 1 ea QS N/A 07/06/17 08:00 08/05/17 07:59 07/26/17 07:55 1 EA Glucose (Glucose 40% Gel) 15-30 GRAMS 15 GRAMS... UD PRN PO 07/06/17 04:15 08/05/17 04:14 Glucose (Glucose Chew Tab) 4-8 Tablets 4 Tabl... UD PRN PO 07/06/17 04:15 08/05/17 04:14 Dextrose (Dextrose 50% 50ML Syringe) 25-50ML OF 50% DW IV FOR... UD PRN IV 07/06/17 04:15 08/05/17 04:14 07/06/17 05:40 25 ML Glucagon (Glucagon Inj) 1 mg UD PRN SQ 07/06/17 04:15 08/05/17 04:14 Heparin Sodium (Porcine) (Heparin 100 Unit/ml 5ml Flush) 5 ml PRN PRN IV 07/07/17 02:45 08/06/17 02:44 Future hold 07/26/17 01:15 5 ML Ondansetron HCl (Zofran Inj) 4 mg Q4H PRN IV 07/11/17 03:00 08/10/17 02:59 07/17/17 21:50 4 MG Prochlorperazine Edisylate 5 mg/ Syringe 5 ml @ 5 mls/min Q4H PRN IV 07/11/17 14:00 08/10/17 13:59 Lactulose (Chronulac Syrup) 30 gm Q4H PRN PO 07/11/17 16:45 08/10/17 16:44 Miscellaneous (Fentanyl Patch Remove & Waste) 1 ea Q3D@0859 N/A 07/22/17 08:59 08/21/17 08:58 07/25/17 08:35 1 EA Fentanyl (Duragesic Patch) 25 mcg Q3D@0900 TD 07/22/17 09:00 08/05/17 08:59 07/25/17 08:33 25 MCG Insulin Glargine (Lantus Solostar Pen) 6 units HS SC 07/20/17 21:00 08/19/17 20:59 07/25/17 21:28 6 UNITS Ergocalciferol (Vitamin D Cap) 50,000 interunit Q7D@0900 PO 07/20/17 09:00 08/19/17 08:59 07/20/17 09:32 50,000 INTERUNIT Vancomycin HCl (Consult) 1 ea UD PRN N/A 07/21/17 16:00 08/20/17 15:59 Miscellaneous Information (Pharmacy Tpn/ Ppn Consult Active) 1 ea UD PRN N/A 07/21/17 17:00 08/20/17 16:59 Hydralazine HCl (HydrALAZINE INJ) 5 mg Q4 PRN IV. 07/21/17 17:15 08/20/17 17:14 07/25/17 23:45 5 MG Furosemide 20 mg/ Syringe 2 ml @ 4 mls/min QAM IV 07/22/17 09:00 08/21/17 08:59 07/26/17 07:56 4 MLS/MIN Hydralazine HCl (HydrALAZINE INJ) 5 mg TID IV. 07/21/17 21:00 08/20/17 20:59 07/26/17 07:56 5 MG Methylprednisolone Sodium Succinate 40 mg/Syringe 0.64 ml @ 1.5 mls/min DAILY IV 07/22/17 09:00 08/21/17 08:59 07/26/17 07:55 1.5 MLS/MIN Fentanyl Citrate (Fentanyl Inj) Fentanyl 25-50 mcg... Q4H PRN IV 07/21/17 20:45 08/04/17 20:44 07/24/17 05:47 50 MCG Metoprolol Tartrate (Lopressor Iv) 5 mg Q6 IV. 07/22/17 12:00 08/20/17 17:59 07/26/17 05:40 5 MG Metronidazole 500 mg/Prmx 100 ml @ 100 mls/hr Q8@04,12,20 IV 07/22/17 12:00 08/05/17 11:59 07/26/17 04:06 100 MLS/HR Dextrose 1,000 ml @ 0 mls/hr Q0M PRN IV 07/22/17 16:00 08/21/17 15:59 Cefepime HCl (Consult) 1 ea UD PRN N/A 07/22/17 11:30 08/21/17 11:29 Cefepime HCl 500 mg/Syringe 5.5 ml @ 5.5 mls/min DAILY@1600 IV 07/23/17 16:00 08/02/17 15:59 07/25/17 16:32 5.5 MLS/MIN Miscellaneous Information (Consult Glycemic Management Pharmacy) 1 ea UD PRN N/A 07/23/17 13:14 08/22/17 13:13 Morphine Sulfate (MoRPHine SULFATE INJ) 2 mg Q3RWA PRN IV 07/24/17 11:30 08/07/17 11:29 07/26/17 08:42 2 MG Non-Formulary Medication (Patient'S Own Controlled Med) 1 ea BID PEG 07/25/17 09:00 08/08/17 08:59 07/26/17 08:12 1 EA Methadone HCl (Methadone HCl) 20 mg BID GT 07/25/17 09:00 08/08/17 08:59 07/26/17 08:12 20 MG Nutrition (Parenteral) 0 ml @ 0 mls/hr TODAY@1600 IV 07/25/17 16:00 07/26/17 15:59 07/25/17 16:33 0 MLS/HR Epoetin Mohsen (Procrit Inj) 4,000 units TODAY@0800 IV 07/26/17 08:00 07/26/17 13:59 Nutrition (Parenteral) 0 ml @ 0 mls/hr TODAY@1600 IV 07/26/17 16:00 07/27/17 15:59 Vancomycin HCl 750 mg/Sodium Chloride 265 ml @ 125 mls/hr TODAY@1400 IV 07/26/17 14:00 09/06/17 13:59 Insulin Aspart (novoLOG ASPART) SLIDING SCALE G... Q4H SC 07/26/17 10:00 08/25/17 09:59 Miscellaneous Information (Nursing Verbal Med Order) 1 ea ONE ONCE N/A 07/26/17 10:45 07/26/17 10:46 UNV Impression (1) Cellulitis of left hand (2) ESRD (end stage renal disease) on dialysis (3) Renal cell carcinoma (4) Anemia (5) Diabetes type 2, controlled Mr. Christy has ESRD and metastatic RCC. He underwent left nephrectomy in 2015. Patient did not tolerate Sutent due to high grade proteinuria, Opdivo caused arthralgia, colitis and possible pneumonitis. He was most recently treated w/ Cabometyx. Mr. Christy was admitted with persistent soft tissue infection of the left hand. Current antibiotics include cefepime and vancomycin. Patient tested positive for C. Difficile colitis. He is on oral Metronidazole On 07/21 Mr. Christy was diagnosed with intestinal perforation and required emergency laparotomy. 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 Partial colectomy w/ reanastomosis was completed Mr. Christy's dialysis has been complicated by prolonged bleeding from the AVF following treatment. 07/23 doppler study reveals high grade venous outflow stenosis. Fistulogram with coil embolization completed yesterday. Recommendations END STAGE RENAL DISEASE: -- 07/23 LUE AVF doppler reported high grade venous stenosis -- Fistulogram with coil embolization completed 07/25/16 -- HD today. Plan of care discussed with dialysis nurse. UF 2-3 L as tolerated. ANEMIA: -- IDALIA w/ HD treatments HYPERTENSION: -- Blood pressure is currently well controlled. Continue current antihypertensive regimen. No change at present. RENAL CELL CA: -- Cabozantinib is on hold. Oncology is in agreement CKD-BMD: -- Calcitriol and CaCO3 on hold due to recent abdominal surgery ID: -- Antibiotics (Vanco, Cefipime) as per ID
[2017-07-26] MEDS ORDERED: INSULIN ASPART 100 UNITS/ML 3 ML PEN SC SCH (12:00)
[2017-07-26] MEDS: HEPARIN 25,000 UNIT/500ML D5W 500 ML IV PRN ×2 (12:26→23:52)
[2017-07-26 12:34] LABS: INR 1.1 (0.9-1.1); PTT PATIENT 27.5 SECONDS (21.0-31.0)
[2017-07-26] MEDS ORDERED: INSU100I2 SQ (13:45)
[2017-07-26] MEDS ORDERED: VANCOMYCIN INJ 750 MG in SODIUM CHLORIDE 0.9% 250ML 250 ML IV SCH (14:00)
[2017-07-26] MEDS ORDERED: CUSTOM CENTRAL PN 1 BAG IV SCH (16:00)
--- NOTE | 2017-07-26 16:04 | Pharmacy Progress Note ---
Pharmacy Abx Dose Short Note Date of Service Jul 26, 2017. Assessment & Plan Assessment 61 year old male receiving cefepime/ Flagyl for treatment of perforated gut, cefepime/Flagyl/vancomycin for hand cellulitis. Day # 14 of vancomycin, day #5 of cefepime, day #5 of Flagyl IV antimicrobial therapy. ESRD with hemodialysis- fistulogram of perm-cath on 07/25 (usual dialysis days TuTh[facility].) Hemodialysis today (Mon). Unsure when next HD will be. Has some urine output. Plan Vancomycin * Random level of 14.9 mcg/mL(measured before dialysis) is therapeutic. * Give one-time dose of vancomycin 750 mg IV after dialysis today * Goal trough level for 15-20 mcg/mL * Will recheck random vancomycin level before next dialysis session. Cefepime * Continue cefepime 500 mg IV q24h (after dialysi on dialysis days.) Pharmacy will continue to follow and will adjust dose/frequency as necessary. Thank you.
[2017-07-26] MEDS: CEFEPIME IV 500 MG in SYRINGE 0 ML IV SCH (16:08)
[2017-07-26] MEDS ORDERED: EPOETIN ALFA INJ 4,000 UNITS in SYRINGE 0 ML IV. SCH (16:30)
[2017-07-26 16:49] LABS: NUCLEATED RED BLOOD CELL ABS 0.74 K/uL (0-0)
[2017-07-26 17:13] LABS: HEMATOCRIT 33.4 % (42-52); HEMOGLOBIN 11.1 g/dL (14.0-18.0); MEAN CELL VOLUME 89.1 fL (80-100); MEAN CORPUSCULAR HEMOGLOBIN 29.6 pg (25-34); RED CELL DISTRIBUTION WIDTH CV 21.5 % (11.5-14.5); WHITE BLOOD COUNT 17.15 K/uL (4.8-10.8)
[2017-07-26 17:14] LABS: MEAN CORPUSCULAR HGB CONC 33.2 g/dl (32-36)
[2017-07-26 17:22] LABS: PLATELET COUNT 98 K/uL (130-400)
--- NOTE | 2017-07-26 17:32 | Progress Note ---
Subjective Date of Service: Jul 26, 2017. Subjective Pt evaluation today including: conversation w/ patient, physical exam, chart review, lab review, review of studies, review of inpatient medication list Resp distress noted this afternoon Pain controlled Noted tachycardia Problem List Medical Problems: (1) Acute dyspnea Status: Acute (2) Chronic kidney disease Status: Acute (3) Failure of outpatient treatment Status: Acute (4) Left arm cellulitis Status: Acute (5) Renal cell carcinoma Status: Acute Review of Systems Constitutional: No fever, No chills, No sweats, No weight loss Eyes: No worsening of vision, No eye pain, No redness, No discharge ENT: No hearing loss, No unusual epistaxis, No nasal symptoms, No sore throat, No tinnitus Respiratory: + cough, + shortness of breath, + dyspnea at rest, No sputum, No wheezing Cardiac: No chest pain, No orthopnea, No PND, No edema Abdomen: No pain, No nausea, No vomiting, No diarrhea Musculoskeletal: No joint pain, No muscle pain, No swelling, No calf pain Male : No dysuria, No urinary frequency, No incontinence, No slowing stream Neurologic: No memory loss, No paralysis, No weakness, No numbness/tingling Psychiatric: No depression symptoms, No anhedonism, No anxiety, No insomnia Skin: No rash, No itch Objective Vital Signs Date Time Temp Pulse Resp B/P (MAP) Pulse Ox O2 Delivery O2 Flow Rate FiO2 07/26/17 16:00 88 BiPAP 8.0 07/26/17 15:32 36.8 123 22 112/68 (83) 87 CPAP 07/26/17 15:07 36.9 119 152/81 (104) 07/26/17 14:45 93 99/56 07/26/17 14:45 138 90 10.0 07/26/17 14:30 81 90/56 07/26/17 14:15 109 106/65 07/26/17 14:00 93 98/65 07/26/17 13:45 129 92/51 07/26/17 13:30 139 94/64 07/26/17 13:26 136 90 10.0 07/26/17 13:15 136 92/62 07/26/17 13:00 135 88/58 07/26/17 12:55 118 92 8.0 07/26/17 12:45 143 84/54 07/26/17 12:30 128 95/67 07/26/17 12:15 132 109/78 07/26/17 12:00 90 CPAP 8.0 07/26/17 12:00 135 106/73 07/26/17 12:00 138 85/46 07/26/17 11:58 139 26 85/50 (62) 88 BiPAP 6.0 07/26/17 11:45 136 100/61 07/26/17 11:30 134 92/55 07/26/17 11:15 128 128/70 07/26/17 11:00 120 132/76 07/26/17 10:59 37.2 121 20 169/81 (110) 90 BiPAP 07/26/17 10:45 121 169/81 07/26/17 10:45 37.2 121 158/82 (107) 07/26/17 09:40 120 192/79 (116) 91 BiPAP 07/26/17 08:00 90 CPAP 8.0 07/26/17 07:33 37.0 113 20 181/82 (115) 90 BiPAP 07/26/17 05:40 110 176/83 07/26/17 05:03 90 8.0 07/26/17 04:29 36.5 116 23 176/83 (114) 89 CPAP 07/26/17 04:00 CPAP 6.0 07/26/17 03:39 115 93 07/26/17 01:05 116 182/83 07/26/17 00:00 Oxymask 6.0 07/25/17 23:33 36.8 114 24 201/92 (128) 96 Oxymask 8.0 07/25/17 20:00 Oxymask 4.0 07/25/17 18:58 36.8 106 20 180/84 (116) 94 Nasal Cannula 4.0 07/25/17 18:14 111 197/98 07/25/17 18:09 114 197/98 (131) 94 Nasal Cannula 4.0 Physical Exam General Appearance: WD/WN, + mild distress Eyes: normal inspection, PERRL, EOMI, sclerae normal Neck: supple, no adenopathy, thyroid normal, no JVD Respiratory/Chest: chest non-tender, lungs clear, no respiratory distress, no accessory muscle use Cardiovascular: no edema, no gallop, no JVD, + tachycardia Abdomen: normal bowel sounds, non tender, soft, no organomegaly Extremities: normal range of motion, non-tender, normal inspection, no pedal edema Neurologic/Psychiatric: no motor/sensory deficits, alert, normal mood/affect, oriented x 3 Skin: normal color, warm/dry, no rash Lymphatic: no adenopathy Laboratory Results Last 24 Hours Test 07/25/17 18:20 07/26/17 01:02 07/26/17 05:01 07/26/17 05:48 Bedside Glucose 288 mg/dl 288 mg/dl 267 mg/dl Hemoglobin 11.3 g/dL Hematocrit 33.9 % Sodium Level 142 mmol/L Potassium Level 3.9 mmol/L Chloride Level 114 mmol/L Carbon Dioxide Level 20 mmol/L Anion Gap 8.0 mmol/L Blood Urea Nitrogen 117 mg/dl Creatinine 4.66 mg/dl Est Creatinine Clear Calc Drug Dose 16.8 ml/min Estimated GFR () 14.4 Estimated GFR (Non- 12.4 BUN/Creatinine Ratio 25.1 Random Glucose 302 mg/dl Calcium Level 7.2 mg/dl Phosphorus Level 2.0 mg/dl Magnesium Level 2.0 mg/dl Beta-Hydroxybutyric Acid 0.64 mg/dL Test 07/26/17 06:58 07/26/17 11:20 07/26/17 12:13 07/26/17 15:22 Bedside Glucose 297 mg/dl 203 mg/dl 216 mg/dl Prothrombin Time 11.2 SECONDS Prothromb Time International Ratio 1.1 Activated Partial Thromboplast Time 27.5 SECONDS Partial Thromboplastin Ratio 1.1 Test 07/26/17 15:40 07/26/17 16:38 Arterial Blood pH 7.46 Arterial Blood Partial Pressure CO2 29 mmHg Arterial Blood Partial Pressure O2 49 mm/Hg Arterial Blood HCO3 20 mmol/L Arterial Blood Oxygen Saturation 84.5 % Arterial Blood Base Excess -3.2 mEq/L Arterial Blood Gas Delivery RA Ezio Test POS White Blood Count 17.15 K/uL Red Blood Count 3.75 M/uL Hemoglobin 11.1 g/dL Hematocrit 33.4 % Mean Corpuscular Volume 89.1 fL Mean Corpuscular Hemoglobin 29.6 pg Mean Corpuscular Hemoglobin Concent 33.2 g/dl Platelet Count 98 K/uL RDW Standard Deviation 64.0 fL RDW Coefficient of Variation 21.5 % Nucleated RBC Absolute Count (auto) 0.74 K/uL Neutrophils % (Manual) 97.3 % Lymphocytes % (Manual) 0.9 % Metamyelocytes % 1.8 % Nucleated Red Blood Cells % 4.3 % Neutrophils # (Manual) 16.69 K/uL Total Absolute Neutrophils 16.69 K/uL Lymphocytes # (Manual) 0.15 K/uL Total Absolute Lymphocytes 0.15 K/uL Metamyelocytes # 0.31 K/uL Toxic Granulation 1+ Platelet Estimate DECREASED Large Platelets 1+ Polychromasia 1+ Poikilocytosis PRESENT Basophilic Stippling 1+ Spherocytes 1+ Assessment and Plan Mr. hCristy is a 61 yo M with PMH of ESRD on HD, RCC, DMII. Admitted for L hand cellulitis having failed outpatient management. Abdominal pain, found to have incidental rectus sheath hematoma, C.diff positive colitis and subsequent bowel perforation on 07/21, now s/p colectomy, anemia, and bilateral pneumonia on imaging. Abdominal pain, c diff colitis, perforated jejunal bowel, s/p colectomy, rectus sheath hematoma: Diarrhea - C.Diff - remains afebrile - C.diff positive - unable to take oral vanc at this time, started on IV flagyl , IV vanc for other issue (hand cellulitis), and may receive some benefit. However, necessary to treat perforation at this time, dialysis will aid the anasarca, and hopefully resumption of oral vanc can be done MARTHA. - Adequate pain control with fentanyl patch 25-50 mcg q4h POD # 5 from small bowel resection due to jejunal diverticular perforation. - Per surgery, continue ng tube until flattus, pt does report flattus 1 - Pain controlled on methadone and morphine IV PRN Metastatic Renal cell cancer - Cabozantinib held due to likely inciting his small intestinal inflammation/ perforation - On consulted and agree with recs at this time ESRD HD secondary to RCC/ s/p left nephrectomy - Nephrology Consulted - Receives HD on Tuesdays, and Saturdays - unable to receive dialysis yesterday due to technical problems, US doppler shows sign stenosis. - IJ placed 07/23 to initiate dialysis, Vascular surg consulted for AVF repair - hypocalcemia; Vit D level of 9.4, supplement with ergocalciferol [id number] indefinitely plus daily D3 2000 when patient resumes oral intake - Recheck levels in 12 weeks Left hand cellulitis - persists, stable - ID consulted. 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 - started on methadone, morphine PRN DMII - 7 units of Lantus with sliding scale - due to abdominal pain, pt refusing insulin at this time. - BSG AC HS Anemia - nephrology -> continue epogen 17906 units and venofer 100mg - continue to monitor HTN/hyperlipidemia - asa 81 mg DCd while NPO: if prolonged NPO, consider aspirin suppositories in 48 hours - furosemide 20 IV daily; check daily BMP and monitor status- - hydralazine 100 mg tid-->converted to 5 TID scheduled, hold sys <120 - amlodipine 10 mg daily--> converted to 5 hydralazine prn for systolic >180 - metoprolol 150 mg bid-->IV 2.5 q6 - lisinopril 40 mg daily held while pressures are assessed in ICU. - simvastatin 20 mg daily DCd while NPO - I&O and daily weights BPH - continue tamsulosin 0.4 mg (held while in NPO) ESRD Bone Mineral Disease - Continue oral Calcitriol - Continue CaCO3 500 mg with meals DVT Prophylaxis: SCDs Code: Full Continued [facility] stay due to: inadequate oral pain control, other (O2 requirement ) Discharge planning: other (hope to be able to transfer to rehab when medically stable)
[2017-07-26] MEDS ORDERED: METOPROLOL TARTRATE 1 MG/ML VIAL IV SCH (18:00)
[2017-07-26 21:41] LABS: PTT PATIENT 111.3 SECONDS (21.0-31.0)
[2017-07-26] MEDS: INSULIN GLARGINE SOLOSTAR 100 UNITS/ML 3 ML PEN SC SCH (21:52)
[2017-07-26 23:18] LABS: PTT PATIENT 55.3 SECONDS (21.0-31.0)
[2017-07-27] VITALS (14 sets, daily range): BP systolic 114–169; BP diastolic 64–81; PULSE 101–121; TEMP 36.8–37.7; O2SAT 90–98
[2017-07-27] MEDS: MoRPHine SULFATE 2 MG/ML CARP IV PRN ×3 (00:01→12:59)
[2017-07-27] MEDS: INSULIN ASPART 100 UNITS/ML 3 ML PEN SC SCH ×5 (04:33→20:10)
[2017-07-27] MEDS: METOPROLOL TARTRATE 1 MG/ML VIAL IV. SCH ×3 (05:54→17:36)
[2017-07-27 06:10] LABS: MEAN CORPUSCULAR HGB CONC 32.7 g/dl (32-36)
[2017-07-27 06:24] LABS: HEMATOCRIT 29.7 % (42-52); HEMOGLOBIN 9.7 g/dL (14.0-18.0); MEAN CELL VOLUME 89.5 fL (80-100); MEAN CORPUSCULAR HEMOGLOBIN 29.2 pg (25-34); RED CELL DISTRIBUTION WIDTH CV 21.7 % (11.5-14.5); RED CELL DISTRIBUTION WIDTH SD 64.6 fL (36.4-46.3); WHITE BLOOD COUNT 15.28 K/uL (4.8-10.8)
[2017-07-27 06:35] LABS: PTT PATIENT 159.9 SECONDS (21.0-31.0)
[2017-07-27 06:41] LABS: PLATELET COUNT 96 K/uL (130-400)
[2017-07-27 06:48] LABS: CALCIUM 6.9 mg/dl (8.5-10.1); CREATININE 3.63 mg/dl (0.60-1.40); PHOSPHORUS 2.2 mg/dl (2.5-4.9); POTASSIUM 3.4 mmol/L (3.5-5.1)
[2017-07-27] MEDS ORDERED: MAGNESIUM SULFATE 1GM / D5W 1 GM in PREMIXED IN D5W 100 ML IV STA (08:15)
[2017-07-27] MEDS ORDERED: POTASSIUM CHLR 10 MEQ / WTR 10 MEQ in PREMIXED WATER 100 ML IV STA (08:16)
[2017-07-27] MEDS: ERGOCALCIFEROL 50,000 INTER.UNIT CAP PO SCH (09:00)
[2017-07-27] MEDS: METRONIDAZOLE 500MG / NSS IV SCH ×2 (09:09→14:21)
[2017-07-27] MEDS: CHECK FENTANYL PATCH PLACEMENT SCH ×2 (09:13→16:08)
[2017-07-27] MEDS: METHYLPREDNISOLONE IV 40 MG in SYRINGE 0 ML IV SCH (09:14)
[2017-07-27] MEDS: FUROSEMIDE INJ 20 MG in SYRINGE 0 ML IV SCH (09:15)
[2017-07-27] MEDS: HydrALAZINE HCL 20 MG/ML VIAL IV. SCH ×3 (09:19→20:13)
[2017-07-27] MEDS: LISINOPRIL 40 MG TAB PO SCH (10:41)
[2017-07-27] MEDS: PATIENT'S OWN CONTROLLED MED PEG SCH ×2 (10:48→20:13)
[2017-07-27] MEDS: METHADONE ORAL SOLN 2 MG/1ML GT SCH ×2 (10:48→20:12)
[2017-07-27] MEDS: LACTOBACILLUS ACIDOPHILUS (FLORANEX) TAB PO SCH ×3 (10:49→20:12)
--- NOTE | 2017-07-27 10:59 | Surgery Progress Note ---
Surgery Progress Note Date of Service Jul 27, 2017. Subjective Post OP Day: POD # 6 s/p ex lap, small bowel resection with primary anastomosis Patient had respiratory distress yesterday with Tachycardia and Tachypnea. Still on BIPAP. Was placed on IV Heparin drip for presumed PE. Not stable for V /Q scan. Patient had loose bowel movement yesterday, passing small amounts of gas + hungry abdominal pain controlled breathing has improved this morning Objective Vital Signs: Date Time Temp Pulse Resp B/P (MAP) Pulse Ox O2 Delivery O2 Flow Rate FiO2 07/27/17 07:42 37.1 118 20 141/73 (95) 92 BiPAP 07/27/17 07:15 120 93 6.0 07/27/17 05:54 121 157/87 07/27/17 05:35 121 91 6.0 07/27/17 04:00 BiPAP 07/27/17 03:25 36.8 111 24 129/69 (89) 90 BiPAP 07/27/17 02:52 111 98 10.0 07/27/17 00:10 37.0 120 18 148/81 (103) 96 BiPAP 07/26/17 23:59 BiPAP 10.0 07/26/17 23:54 115 07/26/17 23:18 126 94 10.0 07/26/17 20:04 114 91 10.0 07/26/17 20:00 90 BiPAP 07/26/17 19:05 36.8 114 22 148/88 (108) 92 BiPAP 07/26/17 18:05 36.9 108 22 160/74 (102) 91 BiPAP 07/26/17 17:48 126 128/65 07/26/17 17:45 126 18 128/65 (86) 92 BiPAP 8.0 07/26/17 16:00 88 BiPAP 8.0 07/26/17 15:32 36.8 123 22 112/68 (83) 87 CPAP 07/26/17 15:07 36.9 119 152/81 (104) 07/26/17 14:45 93 99/56 07/26/17 14:45 138 90 10.0 07/26/17 14:30 81 90/56 07/26/17 14:15 109 106/65 07/26/17 14:00 93 98/65 1/3/18 13:45 129 92/51 07/26/17 13:30 139 94/64 07/26/17 13:26 136 90 10.0 07/26/17 13:15 136 92/62 07/26/17 13:00 135 88/58 07/26/17 12:55 118 92 8.0 07/26/17 12:45 143 84/54 07/26/17 12:30 128 95/67 07/26/17 12:15 132 109/78 07/26/17 12:00 90 CPAP 8.0 07/26/17 12:00 135 106/73 07/26/17 12:00 138 85/46 07/26/17 11:58 139 26 85/50 (62) 88 BiPAP 6.0 07/26/17 11:45 136 100/61 07/26/17 11:30 134 92/55 07/26/17 11:15 128 128/70 07/26/17 11:00 120 132/76 07/26/17 10:59 37.2 121 20 169/81 (110) 90 BiPAP Physical Exam: nasogastric drainage (brown ouptut) General Appearance: WD/WN, no apparent distress, + pertinent finding Head: normocephalic, atraumatic Neck: trachea midline Respiratory/Chest: no respiratory distress, no accessory muscle use, + pertinent finding (BIPAP machine currently on at 6 liters) Cardiovascular: no murmur Abdomen: non distended, soft, no organomegaly, no pulsatile mass, + tenderness (at midline incision, appropriate post op) Incision(s): clean, dry, intact, no erythema, no drainage Laboratory Results: Results Past 24 Hours Test 07/26/17 11:20 07/26/17 12:13 07/26/17 15:22 07/26/17 15:40 Range/Units Bedside Glucose 203 216 70-99 mg/dl Prothrombin Time 11.2 9.0-12.0 SECONDS Prothromb Time International Ratio 1.1 0.9-1.1 Activated Partial Thromboplast Time 27.5 21.0-31.0 SECONDS Partial Thromboplastin Ratio 1.1 Arterial Blood pH 7.46 7.35-7.45 Arterial Blood Partial Pressure CO2 29 35-46 mmHg Arterial Blood Partial Pressure O2 49 80-95 mm/Hg Arterial Blood HCO3 20 19-24 mmol/L Arterial Blood Oxygen Saturation 84.5 90-95 % Arterial Blood Base Excess -3.2 -9-1.8 mEq/L Arterial Blood Gas Delivery RA Ezio Test POS POS Test 07/26/17 16:38 07/26/17 18:04 07/26/17 19:07 07/26/17 21:00 Range/Units White Blood Count 17.15 4.8-10.8 K/uL Red Blood Count 3.75 4.7-6.1 M/uL Hemoglobin 11.1 14.0-18.0 g/dL Hematocrit 33.4 42-52 % Mean Corpuscular Volume 89.1 80-100 fL Mean Corpuscular Hemoglobin 29.6 25-34 pg Mean Corpuscular Hemoglobin Concent 33.2 32-36 g/dl Platelet Count 98 130-400 K/uL RDW Standard Deviation 64.0 36.4-46.3 fL RDW Coefficient of Variation 21.5 11.5-14.5 % Nucleated RBC Absolute Count (auto) 0.74 0-0 K/uL Neutrophils % (Manual) 97.3 % Lymphocytes % (Manual) 0.9 % Metamyelocytes % 1.8 % Nucleated Red Blood Cells % 4.3 % Neutrophils # (Manual) 16.69 1.4-6.5 K/uL Total Absolute Neutrophils 16.69 1.4-6.5 K/uL Lymphocytes # (Manual) 0.15 1.2-3.4 K/uL Total Absolute Lymphocytes 0.15 1.2-3.4 K/uL Metamyelocytes # 0.31 0-0 K/uL Toxic Granulation 1+ Platelet Estimate DECREASED Large Platelets 1+ Polychromasia 1+ Poikilocytosis PRESENT Basophilic Stippling 1+ Spherocytes 1+ Bedside Glucose 182 70-99 mg/dl Activated Partial Thromboplast Time 211.0 111.3 21.0-31.0 SECONDS Partial Thromboplastin Ratio 8.1 4.3 Test 07/26/17 22:42 07/26/17 23:40 07/27/17 03:47 07/27/17 05:51 Range/Units Activated Partial Thromboplast Time 55.3 159.9 21.0-31.0 SECONDS Partial Thromboplastin Ratio 2.1 6.2 Bedside Glucose 182 159 70-99 mg/dl White Blood Count 15.28 4.8-10.8 K/uL Red Blood Count 3.32 4.7-6.1 M/uL Hemoglobin 9.7 14.0-18.0 g/dL Hematocrit 29.7 42-52 % Mean Corpuscular Volume 89.5 80-100 fL Mean Corpuscular Hemoglobin 29.2 25-34 pg Mean Corpuscular Hemoglobin Concent 32.7 32-36 g/dl RDW Standard Deviation 64.6 36.4-46.3 fL RDW Coefficient of Variation 21.7 11.5-14.5 % Platelet Count 96 130-400 K/uL Nucleated RBC Absolute Count (auto) 0.90 0-0 K/uL Nucleated Red Blood Cells % 5.9 % Platelet Estimate DECREASED Sodium Level 137 136-145 mmol/L Potassium Level 3.4 3.5-5.1 mmol/L Chloride Level 104 98-107 mmol/L Carbon Dioxide Level 23 21-32 mmol/L Anion Gap 10.0 3-11 mmol/L Blood Urea Nitrogen 91 7-18 mg/dl Creatinine 3.63 0.60-1.40 mg/dl Est Creatinine Clear Calc Drug Dose 21.5 ml/min Estimated GFR () 19.4 Estimated GFR (Non- 16.8 BUN/Creatinine Ratio 25.2 10-20 Random Glucose 139 70-99 mg/dl Calcium Level 6.9 8.5-10.1 mg/dl Phosphorus Level 2.2 2.5-4.9 mg/dl Magnesium Level 1.7 1.8-2.4 mg/dl Test 07/27/17 07:15 07/27/17 09:10 07/27/17 09:25 Range/Units Activated Partial Thromboplast Time 114.0 21.0-31.0 SECONDS Partial Thromboplastin Ratio 4.4 Bedside Glucose 115 70-99 mg/dl Random Vancomycin Level 19.2 mcg/ml Assessment & Plan POD # 6 s/p ex lap, small bowel resection due to small bowel diverticular perforation - + flatus and bowel movement - NGT with light brown output, 550 cc yesterday in 24 hours - +bowel sounds, abdomen soft non distended - increase in leukocytosis last evening to 17k, 15k this am, afebrile overnight - Peritoneal culture showing dc, infectious disease consult placed again Plan: Continue current pain management Continue cardiac monitoring Continue CPAP/Bipap, Keep O2 sats > 92% Discontinue NGT Start clear liquids, advised patient to take it slowly If tolerates clear liquids may start oral medications Continue IV Abx Continue TPN OOB to chair Continue SCDs Repeat am labs Continue PT/OT Continue current medical management Dr. Siddiqui has seen and examined patient, agrees with above
[2017-07-27] MEDS ORDERED: CASPOFUNGIN INJ 70 MG in SODIUM CHLORIDE 0.9% 250ML 250 ML IV ONE (11:00)
--- NOTE | 2017-07-27 11:05 | Infectious Disease Progress Nt ---
Progress Note Date of Service Jul 27, 2017. Subjective Pt evaluation today including: conversation w/ patient, physical exam, chart review, lab review, review of studies, conversation w/ toy consultant, review of inpatient medication list Interval events reviewed. Patient with left hand infection, subsequent C difficile colitis, then developed jejunal perforation requiring emergency laparotomy. Patient now status post vascular intervention for problems with fistula. OR cultures of peritoneal fluid growing Cecilia glabrata. Patient with mild respiratory distress, wearing BiPAP mask, has been afebrile. Abdominal pain currently 2/10 in intensity All Other Systems: Reviewed and Negative Medications Current Inpatient Medications Medications (Trade) Dose Ordered Sig/Edward Route Start Time Stop Time Status Last Admin Dose Admin Lactobacillus Acidophilus (Floranex Tab) 2 tab TID PO 07/06/17 09:00 08/05/17 08:59 07/27/17 10:49 2 TAB Lisinopril (Zestril Tab) 40 mg DAILY PO 07/06/17 09:00 08/05/17 08:59 07/27/17 10:41 40 MG Miscellaneous Information (Check Fentanyl Patch Placement) 1 ea QS N/A 07/06/17 08:00 08/05/17 07:59 07/27/17 09:13 1 EA Glucose (Glucose 40% Gel) 15-30 GRAMS 15 GRAMS... UD PRN PO 07/06/17 04:15 08/05/17 04:14 Glucose (Glucose Chew Tab) 4-8 Tablets 4 Tabl... UD PRN PO 07/06/17 04:15 08/05/17 04:14 Dextrose (Dextrose 50% 50ML Syringe) 25-50ML OF 50% DW IV FOR... UD PRN IV 07/06/17 04:15 08/05/17 04:14 07/06/17 05:40 25 ML Glucagon (Glucagon Inj) 1 mg UD PRN SQ 07/06/17 04:15 08/05/17 04:14 Heparin Sodium (Porcine) (Heparin 100 Unit/ml 5ml Flush) 5 ml PRN PRN IV 07/07/17 02:45 08/06/17 02:44 Future hold 07/26/17 01:15 5 ML Ondansetron HCl (Zofran Inj) 4 mg Q4H PRN IV 07/11/17 03:00 08/10/17 02:59 07/17/17 21:50 4 MG Prochlorperazine Edisylate 5 mg/ Syringe 5 ml @ 5 mls/min Q4H PRN IV 07/11/17 14:00 08/10/17 13:59 Lactulose (Chronulac Syrup) 30 gm Q4H PRN PO 07/11/17 16:45 08/10/17 16:44 Miscellaneous (Fentanyl Patch Remove & Waste) 1 ea Q3D@0859 N/A 07/22/17 08:59 08/21/17 08:58 07/25/17 08:35 1 EA Fentanyl (Duragesic Patch) 25 mcg Q3D@0900 TD 07/22/17 09:00 08/05/17 08:59 07/25/17 08:33 25 MCG Insulin Glargine (Lantus Solostar Pen) 6 units HS SC 07/20/17 21:00 08/19/17 20:59 07/26/17 21:52 6 UNITS Ergocalciferol (Vitamin D Cap) 50,000 interunit Q7D@0900 PO 07/20/17 09:00 08/19/17 08:59 07/20/17 09:32 50,000 INTERUNIT Vancomycin HCl (Consult) 1 ea UD PRN N/A 07/21/17 16:00 08/20/17 15:59 Miscellaneous Information (Pharmacy Tpn/ Ppn Consult Active) 1 ea UD PRN N/A 07/21/17 17:00 08/20/17 16:59 Hydralazine HCl (HydrALAZINE INJ) 5 mg Q4 PRN IV. 07/21/17 17:15 08/20/17 17:14 07/25/17 23:45 5 MG Furosemide 20 mg/ Syringe 2 ml @ 4 mls/min QAM IV 07/22/17 09:00 08/21/17 08:59 07/27/17 09:15 4 MLS/MIN Hydralazine HCl (HydrALAZINE INJ) 5 mg TID IV. 07/21/17 21:00 08/20/17 20:59 07/27/17 09:19 5 MG Methylprednisolone Sodium Succinate 40 mg/Syringe 0.64 ml @ 1.5 mls/min DAILY IV 07/22/17 09:00 08/21/17 08:59 07/27/17 09:14 1.5 MLS/MIN Fentanyl Citrate (Fentanyl Inj) Fentanyl 25-50 mcg... Q4H PRN IV 07/21/17 20:45 08/04/17 20:44 07/24/17 05:47 50 MCG Metoprolol Tartrate (Lopressor Iv) 5 mg Q6 IV. 07/22/17 12:00 08/20/17 17:59 07/27/17 05:54 5 MG Dextrose 1,000 ml @ 0 mls/hr Q0M PRN IV 07/22/17 16:00 08/21/17 15:59 Cefepime HCl (Consult) 1 ea UD PRN N/A 07/22/17 11:30 08/21/17 11:29 Cefepime HCl 500 mg/Syringe 5.5 ml @ 5.5 mls/min DAILY@1600 IV 07/23/17 16:00 08/02/17 15:59 07/26/17 16:08 5.5 MLS/MIN Miscellaneous Information (Consult Glycemic Management Pharmacy) 1 ea UD PRN N/A 07/23/17 13:14 08/22/17 13:13 Morphine Sulfate (MoRPHine SULFATE INJ) 2 mg Q3RWA PRN IV 07/24/17 11:30 08/07/17 11:29 07/27/17 06:04 2 MG Non-Formulary Medication (Patient'S Own Controlled Med) 1 ea BID PEG 07/25/17 09:00 08/08/17 08:59 07/27/17 10:48 1 EA Methadone HCl (Methadone HCl) 20 mg BID GT 07/25/17 09:00 08/08/17 08:59 07/27/17 10:48 20 MG Nutrition (Parenteral) 0 ml @ 0 mls/hr TODAY@1600 IV 07/26/17 16:00 07/27/17 15:59 07/26/17 16:08 0 MLS/HR Insulin Aspart (novoLOG ASPART) SLIDING SCALE G... Q4H SC 07/26/17 10:00 08/25/17 09:59 07/27/17 04:33 2 UNITS Heparin Sodium/ Dextrose 500 ml @ 23 mls/hr [id number] PRN IV 07/26/17 12:15 08/25/17 12:14 07/26/17 23:52 23 MLS/HR Metronidazole 500 mg/Prmx 100 ml @ 100 mls/hr Q8H IV 07/26/17 15:00 08/05/17 14:59 07/27/17 09:09 100 MLS/HR Caspofungin 70 mg/ Sodium Chloride 260 ml @ 250 mls/hr 1100 ONCE IV 07/27/17 11:00 07/27/17 12:02 Caspofungin 50 mg/ Sodium Chloride 260 ml @ 250 mls/hr DAILY IV 07/28/17 09:00 08/07/17 08:59 UNV Objective Vital Signs Date Time Temp Pulse Resp B/P (MAP) Pulse Ox O2 Delivery O2 Flow Rate FiO2 07/27/17 07:42 37.1 118 20 141/73 (95) 92 BiPAP 07/27/17 07:15 120 93 6.0 07/27/17 05:54 121 157/87 07/27/17 05:35 121 91 6.0 07/27/17 04:00 BiPAP 07/27/17 03:25 36.8 111 24 129/69 (89) 90 BiPAP 07/27/17 02:52 111 98 10.0 07/27/17 00:10 37.0 120 18 148/81 (103) 96 BiPAP 07/26/17 23:59 BiPAP 10.0 07/26/17 23:54 115 07/26/17 23:18 126 94 10.0 07/26/17 20:04 114 91 10.0 07/26/17 20:00 90 BiPAP 07/26/17 19:05 36.8 114 22 148/88 (108) 92 BiPAP 07/26/17 18:05 36.9 108 22 160/74 (102) 91 BiPAP 07/26/17 17:48 126 128/65 07/26/17 17:45 126 18 128/65 (86) 92 BiPAP 8.0 07/26/17 16:00 88 BiPAP 8.0 07/26/17 15:32 36.8 123 22 112/68 (83) 87 CPAP 07/26/17 15:07 36.9 119 152/81 (104) 07/26/17 14:45 93 99/56 07/26/17 14:45 138 90 10.0 07/26/17 14:30 81 90/56 07/26/17 14:15 109 106/65 07/26/17 14:00 93 98/65 07/26/17 13:45 129 92/51 07/26/17 13:30 139 94/64 07/26/17 13:26 136 90 10.0 07/26/17 13:15 136 92/62 07/26/17 13:00 135 88/58 07/26/17 12:55 118 92 8.0 07/26/17 12:45 143 84/54 07/26/17 12:30 128 95/67 07/26/17 12:15 132 109/78 07/26/17 12:00 90 CPAP 8.0 07/26/17 12:00 135 106/73 07/26/17 12:00 138 85/46 07/26/17 11:58 139 26 85/50 (62) 88 BiPAP 6.0 07/26/17 11:45 136 100/61 07/26/17 11:30 134 92/55 07/26/17 11:15 128 128/70 07/26/17 11:00 120 132/76 Physical Exam General Appearance: + mild distress, + pertinent finding (Chronically ill- appearing) Eyes: normal inspection, EOMI, sclerae normal ENT: normal ENT inspection, pharynx normal Neck: supple, no adenopathy, thyroid normal, trachea midline Respiratory/Chest: chest non-tender, no accessory muscle use, + rales Cardiovascular: regular rate, rhythm, no gallop, no murmur Abdomen: no organomegaly, + abnormal bowel sounds (Hypoactive), + distended, + tenderness Extremities: non-tender, no calf tenderness Neurologic/Psychiatric: alert, oriented x 3 Skin: normal color, no rash Lymphatic: no adenopathy Laboratory Results RUN DATE: 07/26/17 [facility] LAB PAGE 1 RUN TIME: 1132 Specimen Inquiry PATIENT: CHANO ANDERSON LOC: [place] U # : [id number] AGE/SX: 61/M ROOM: [facility] REG : 07/05/[address]: Rober Stern D.O : 1955 BED: 1 DIS : STATUS: ADM IN TLOC: SPEC #: [id number] HENRRY: 07/21/17 STATUS: COMP REQ #: [id number] RECD: 07/21/[address] [facility] [address]: Jim Genao D.O. SOURCE: PER FLD ENTR: 07/21/[address] [facility] [address]: Hunter Dao D.O. SPDESC: Philip Philippe MD, Mona D., Muriel Gordillo M.D. Krieger, Susan H., M.D. Lieb, James V. D.O. Long, Ronald M.D. Noor, Rahiba ., M.D. Oppermann, Brian P., M.D. Roe, Kevin, D.O. Sefter, John C., DO Schneekloth, Lauren ., M.D. Stevens, Jessica A., DO Tarmohamed, Zenovia ., M.D. ORDERED: AER/TD CULTSMR Procedure Result Verified Site GRAM STAIN Final 07/22/17-801 RESULT FEW WBCs SEEN NO ORGANISMS SEEN OR AER/TD CULT Final 07/26/17-1131 Organism 1 CECILIA GLABRATA (T. GLABRATA) QUANITY MODERATE SENS NO SENSITIVITY TO FOLLOW ANAS NO ANAEROBES ISOLATED. Last 24 Hours Test 07/26/17 11:20 07/26/17 12:13 07/26/17 15:22 07/26/17 15:40 Bedside Glucose 203 mg/dl 216 mg/dl Prothrombin Time 11.2 SECONDS Prothromb Time International Ratio 1.1 Activated Partial Thromboplast Time 27.5 SECONDS Partial Thromboplastin Ratio 1.1 Arterial Blood pH 7.46 Arterial Blood Partial Pressure CO2 29 mmHg Arterial Blood Partial Pressure O2 49 mm/Hg Arterial Blood HCO3 20 mmol/L Arterial Blood Oxygen Saturation 84.5 % Arterial Blood Base Excess -3.2 mEq/L Arterial Blood Gas Delivery RA Ezio Test POS Test 07/26/17 16:38 07/26/17 18:04 07/26/17 19:07 07/26/17 21:00 White Blood Count 17.15 K/uL Red Blood Count 3.75 M/uL Hemoglobin 11.1 g/dL Hematocrit 33.4 % Mean Corpuscular Volume 89.1 fL Mean Corpuscular Hemoglobin 29.6 pg Mean Corpuscular Hemoglobin Concent 33.2 g/dl Platelet Count 98 K/uL RDW Standard Deviation 64.0 fL RDW Coefficient of Variation 21.5 % Nucleated RBC Absolute Count (auto) 0.74 K/uL Neutrophils % (Manual) 97.3 % Lymphocytes % (Manual) 0.9 % Metamyelocytes % 1.8 % Nucleated Red Blood Cells % 4.3 % Neutrophils # (Manual) 16.69 K/uL Total Absolute Neutrophils 16.69 K/uL Lymphocytes # (Manual) 0.15 K/uL Total Absolute Lymphocytes 0.15 K/uL Metamyelocytes # 0.31 K/uL Toxic Granulation 1+ Platelet Estimate DECREASED Large Platelets 1+ Polychromasia 1+ Poikilocytosis PRESENT Basophilic Stippling 1+ Spherocytes 1+ Bedside Glucose 182 mg/dl Activated Partial Thromboplast Time 211.0 SECONDS 111.3 SECONDS Partial Thromboplastin Ratio 8.1 4.3 Test 07/26/17 22:42 07/26/17 23:40 07/27/17 03:47 07/27/17 05:51 Activated Partial Thromboplast Time 55.3 SECONDS 159.9 SECONDS Partial Thromboplastin Ratio 2.1 6.2 Bedside Glucose 182 mg/dl 159 mg/dl White Blood Count 15.28 K/uL Red Blood Count 3.32 M/uL Hemoglobin 9.7 g/dL Hematocrit 29.7 % Mean Corpuscular Volume 89.5 fL Mean Corpuscular Hemoglobin 29.2 pg Mean Corpuscular Hemoglobin Concent 32.7 g/dl RDW Standard Deviation 64.6 fL RDW Coefficient of Variation 21.7 % Platelet Count 96 K/uL Nucleated RBC Absolute Count (auto) 0.90 K/uL Nucleated Red Blood Cells % 5.9 % Platelet Estimate DECREASED Sodium Level 137 mmol/L Potassium Level 3.4 mmol/L Chloride Level 104 mmol/L Carbon Dioxide Level 23 mmol/L Anion Gap 10.0 mmol/L Blood Urea Nitrogen 91 mg/dl Creatinine 3.63 mg/dl Est Creatinine Clear Calc Drug Dose 21.5 ml/min Estimated GFR () 19.4 Estimated GFR (Non- 16.8 BUN/Creatinine Ratio 25.2 Random Glucose 139 mg/dl Calcium Level 6.9 mg/dl Phosphorus Level 2.2 mg/dl Magnesium Level 1.7 mg/dl Test 07/27/17 07:15 07/27/17 09:10 07/27/17 09:25 Activated Partial Thromboplast Time 114.0 SECONDS Partial Thromboplastin Ratio 4.4 Bedside Glucose 115 mg/dl Random Vancomycin Level 19.2 mcg/ml Patient Name: CAHNO ANDERSON Unit Number: [id number] Dictated: 07/23/17927 Transcribed: 07/23/17927 MS Printed Date/Time: [~ rep prt dt]/[~ rep prt tm] [~ rep ct labl] - [~ rep ct ivnm] [facility] [place] [address] Dictated: 07/23/17927 Transcribed: 07/23/17927 MS Printed Date/Time: [~ rep prt dt]/[~ rep prt tm] [~ rep ct labl] - [~ rep ct ivnm] CHEST ONE VIEW PORTABLE CLINICAL HISTORY: New left IJ dialysis catheter placed tube position COMPARISON STUDY: 07/21/2017 FINDINGS: Right central catheter in superior vena cava. Interval replacement of a left internal jugular venous catheter. Tip of the catheter is now at the juncture of the left jugular and left subclavian veins. No evidence pneumothorax. Bibasilar parenchymal infiltrative and congestive change which is unaltered. No evidence pneumothorax. IMPRESSION: 1. Interval replacement of the patient's left internal jugular catheter with a larger caliber line now present at the juncture of the jugular vein and left subclavian vein. 2. No evidence pneumothorax. 3. All additional findings are stable compared to the prior exam. 4. Nasogastric catheter within the gastric fundus The above report was generated using voice recognition software. It may contain grammatical, syntax or spelling errors. Electronically signed by: Kirill Rainey M.D. 07/23/2017 9:30 AM Dictated Date/Time: 07/23/2017 9:28 AM The status of this report is Signed. Draft = Not yet reviewed or approved by Radiologist. Signed = Reviewed and approved by Radiologist. <AttendingPhy>Rober Stern D.O.</AttendingPhy> <FamilyPhy>Salvador Muller M.D.</FamilyPhy> <PrimaryPhy>Salvador Muller M.D.</PrimaryPhy> <UnitNumber> [id number]</UnitNumber> <VisitNumber>[id number]</VisitNumber> <PatientName> MONTANA ANDERSONMICHELLE Stafford</PatientName> <DateOfBirth>1955</DateOfBirth> <Location> C.MSICU</Location> <ServiceDate></ServiceDate> <MNE>ESINDI</MNE> <OrderingPhy> Kalie Frye MD</OrderingPhy> <OrderingPhyMNE>f rep ord dr caldera</ OrderingPhyMNE> <DictatingPhyMNE>f rep dict dr caldera</DictatingPhyMNE> <CCListMNE> f rep ct mne</CCListMNE> <AdmittingPhyMNE>f pt admit dr caldera</AdmittingPhyMNE> < AttendingPhyMNE>f pt attend dr caldera</AttendingPhyMNE> <ConsultingPhyMNE>f pt consult dr caldera</ConsultingPhyMNE> <FamilyPhyMNE>f pt fam dr caldera</FamilyPhyMNE> <OtherPhyMNE>f pt other dr caldera</OtherPhyMNE> < PrimaryPhyMNE>f pt prim care dr caldera</PrimaryPhyMNE> <ReferringPhyMNE>f pt referring dr caldera</ReferringPhyMNE> Assessment and Plan 61-year-old male with left hand cellulitis, subsequent development of pneumonitis, C difficile infection, and then 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 OR cultures have grown Cecilia glabrata, and I have added caspofungin as this species often fluconazole resistant. Given patient NPO, IV metronidazole to be continued, if diarrhea worsens would consider addition of vancomycin enemas. Patient to start on oral vancomycin once able to take p.o..
--- NOTE | 2017-07-27 11:39 | Pharmacy Progress Note ---
Pharmacy Glycemic Short Note 2 Date of Service Jul 27, 2017. Glycemic and parenteral nutrition consult: ASSESSMENT: 07/27/17 * Mr. Christy is now POD #6 s/p ex lap with bowel resection, day #6 of TPN * Surgery has advanced diet today but patient has not taken any po yet * BSGs are FINALLY improved with the significant increase in insulin in the TPN but the diet being advanced may cause BSGs to increase again. Although, I anticipate little po intake within the next 24 hours as he has been NPO for quite some time. * Regarding glycemic control: * Will change Novolog to ACHS and add back a carb ratio since patient will have po intake * Dextrose in TPN will be increased to goal so will increase insulin in TPN proportionately * Regarding parenteral nutrition: * Macronutrients - AA remain at goal, increase dextrose to goal since BSGs are improved and anticipate little po intake since diet just started, no fats for today * Micronutrients - K, Mg and Ca are either below goal or at lower end of range ; he received dialysis yesterday and does have some residual urine output; patient received 10 mEq of potassium IV and 1 gm of magesium IV this AM; will make minor adjustments to lytes in the bag; patient will not have dialysis today 07/26/17 * Mr. Christy is now POD #5 s/p ex lap with bowel resection after bowel perforation - now with bowel sounds and flatus * He is scheduled to receive dialysis today * His main issue from a glycemic/parenteral nutrition standpoint is consistently elevated BSGs, going on day #4, after fairly aggressive insulin adjustments * I spoke with Dr. Stern this morning regarding a plan. Ideally, an insulin drip would be the best option to control BSGs as well as determine insulin needs. Other options are giving NPH this morning prior to aggressively increasing in the TPN. As per our discussion, since patient is improving from a GI standpoint and may be transitioning to po soon, will hold off on the insulin drip today and re-assess tomorrow. He confirmed that steroids will remain the same for today. * Regarding glycemic control: * He received ~80 units total of insulin over the past 24 hours (45 units of insulin in the TPN) * Will increase insulin in the TPN to 90 units * Will plan to tighten the goal range and change to q4h for the Novolog to provide additional correctional insulin * Since the increase of insulin in the TPN will not occur until 1600 today, will give a dose of NPH to cover needs until that time (giving 1/2 of increase in dose in TPN) * Regarding parenteral nutrition: * Macronutrients - AA remain at goal, dextrose will continue to NOT be advanced due to elevated BSGs, no lipids today as he received them yesterday * Micronutrients - Patient will receive dialysis today. Only adjustment will be a minor increase in sodium phosphate. 07/25/17 * Mr. Christy is scheduled for a fistulogram with possible intervention today * Today is day #4 of parenteral nutrition and BSGs remain difficult to control * Regarding glycemic control: * With insulin the TPN, he received ~55 units of insulin over the past 24 hours * He remains on IV Solu-medrol * Dextrose was increased in the TPN yesterday but will NOT increase any further until BSGs are better controlled * Will plan to continue the same basal dose and increase insulin in the TPN since BSG elevation has been related to the TPN * Will tighten the CF as well to provide additional SQ insulin if necessary * Regarding parenteral nutrition: * Macronutrients - AA already at goal, dextrose will not be advanced further today, will provide lipids today to provide additional calories since we have had to slowly titrate up on dextrose * Micronutrients - noted nephrology's note that lytes are acceptable, only making minor changes to TPN today since phos remains slightly low and K is steadily dropping. Noted that patient will not receive dialysis today. PLAN FOR INPATIENT GLYCEMIC CONTROL: * Continue Lantus 6 units qHS * Change Novolog to ACHS * Continue goal 110-140 * Continue CF of 15 * Add CR of 1 unit per 10 gm CHO consumed * Increase insulin in TPN to 110 units Important: this will need adjusted if steroids are changed PLAN FOR PARENTERAL NUTRITION For day 6 of PN administration, the following will be ordered: Macronutrients Amino acids 125 grams/day Dextrose 250 grams/day Lipids 0 grams/day Micronutrients Sodium acetate 70 mEq Potassium chloride 20 mEq Calcium gluconate 4.5 mEq Magnesium chloride 4.06 mEq Sodium phosphate 18 mMol Multivitamins 10 mL Trace Elements 1 mL Regular insulin 110 units Total volume 1680 mL (minimum) to be infused over 24 hrs will provide 1350 kcal /day Labs, as indicated, will be ordered per protocol Pharmacy will continue to follow and adjust parenteral nutrition orders on a daily basis. Thank you for allowing us to participate in the care of this patient.
--- NOTE | 2017-07-27 11:43 | Palliative Care Progress Note ---
Palliative Care Progress Note Date of Service Jul 27, 2017. Subjective Pt evaluation today including: conversation w/ patient, physical exam, chart review, lab review, conversation w/ bi consultant Pain: Control improving - methadone kicking in PO Intake: Poor Pt now on BiPAP, appears more comfortable. Pt has increased bilateral UE edema and has been having fluctuating BP. Review of Systems Constitutional: + weakness Eyes: No worsening of vision ENT: No hearing loss Respiratory: + shortness of breath Cardiac: + orthopnea, No chest pain Abdomen: + pain (post surgical pain over incision) Musculoskeletal: + problem reported (flank pain) Neurologic: + weakness Psychiatric: + anxiety Endo: + fatigue Objective Vital Signs Date Time Temp Pulse Resp B/P (MAP) Pulse Ox O2 Delivery O2 Flow Rate FiO2 07/27/17 07:42 37.1 118 20 141/73 (95) 92 BiPAP 07/27/17 07:15 120 93 6.0 07/27/17 05:54 121 157/87 07/27/17 05:35 121 91 6.0 07/27/17 04:00 BiPAP 07/27/17 03:25 36.8 111 24 129/69 (89) 90 BiPAP 07/27/17 02:52 111 98 10.0 07/27/17 00:10 37.0 120 18 148/81 (103) 96 BiPAP 07/26/17 23:59 BiPAP 10.0 07/26/17 23:54 115 07/26/17 23:18 126 94 10.0 07/26/17 20:04 114 91 10.0 07/26/17 20:00 90 BiPAP 07/26/17 19:05 36.8 114 22 148/88 (108) 92 BiPAP 07/26/17 18:05 36.9 108 22 160/74 (102) 91 BiPAP 07/26/17 17:48 126 128/65 07/26/17 17:45 126 18 128/65 (86) 92 BiPAP 8.0 07/26/17 16:00 88 BiPAP 8.0 07/26/17 15:32 36.8 123 22 112/68 (83) 87 CPAP 07/26/17 15:07 36.9 119 152/81 (104) 07/26/17 14:45 93 99/56 07/26/17 14:45 138 90 10.0 07/26/17 14:30 81 90/56 07/26/17 14:15 109 106/65 07/26/17 14:00 93 98/65 07/26/17 13:45 129 92/51 07/26/17 13:30 139 94/64 07/26/17 13:26 136 90 10.0 07/26/17 13:15 136 92/62 07/26/17 13:00 135 88/58 07/26/17 12:55 118 92 8.0 07/26/17 12:45 143 84/54 07/26/17 12:30 128 95/67 07/26/17 12:15 132 109/78 07/26/17 12:00 90 CPAP 8.0 07/26/17 12:00 135 106/73 07/26/17 12:00 138 85/46 07/26/17 11:58 139 26 85/50 (62) 88 BiPAP 6.0 07/26/17 11:45 136 100/61 Laboratory Results Last 24 Hours Test 07/26/17 12:13 07/26/17 15:22 07/26/17 15:40 07/26/17 16:38 Prothrombin Time 11.2 SECONDS Prothromb Time International Ratio 1.1 Activated Partial Thromboplast Time 27.5 SECONDS Partial Thromboplastin Ratio 1.1 Bedside Glucose 216 mg/dl Arterial Blood pH 7.46 Arterial Blood Partial Pressure CO2 29 mmHg Arterial Blood Partial Pressure O2 49 mm/Hg Arterial Blood HCO3 20 mmol/L Arterial Blood Oxygen Saturation 84.5 % Arterial Blood Base Excess -3.2 mEq/L Arterial Blood Gas Delivery RA Ezio Test POS White Blood Count 17.15 K/uL Red Blood Count 3.75 M/uL Hemoglobin 11.1 g/dL Hematocrit 33.4 % Mean Corpuscular Volume 89.1 fL Mean Corpuscular Hemoglobin 29.6 pg Mean Corpuscular Hemoglobin Concent 33.2 g/dl Platelet Count 98 K/uL RDW Standard Deviation 64.0 fL RDW Coefficient of Variation 21.5 % Nucleated RBC Absolute Count (auto) 0.74 K/uL Neutrophils % (Manual) 97.3 % Lymphocytes % (Manual) 0.9 % Metamyelocytes % 1.8 % Nucleated Red Blood Cells % 4.3 % Neutrophils # (Manual) 16.69 K/uL Total Absolute Neutrophils 16.69 K/uL Lymphocytes # (Manual) 0.15 K/uL Total Absolute Lymphocytes 0.15 K/uL Metamyelocytes # 0.31 K/uL Toxic Granulation 1+ Platelet Estimate DECREASED Large Platelets 1+ Polychromasia 1+ Poikilocytosis PRESENT Basophilic Stippling 1+ Spherocytes 1+ Test 07/26/17 18:04 07/26/17 19:07 07/26/17 21:00 07/26/17 22:42 Bedside Glucose 182 mg/dl Activated Partial Thromboplast Time 211.0 SECONDS 111.3 SECONDS 55.3 SECONDS Partial Thromboplastin Ratio 8.1 4.3 2.1 Test 07/26/17 23:40 07/27/17 03:47 07/27/17 05:51 07/27/17 07:15 Bedside Glucose 182 mg/dl 159 mg/dl White Blood Count 15.28 K/uL Red Blood Count 3.32 M/uL Hemoglobin 9.7 g/dL Hematocrit 29.7 % Mean Corpuscular Volume 89.5 fL Mean Corpuscular Hemoglobin 29.2 pg Mean Corpuscular Hemoglobin Concent 32.7 g/dl RDW Standard Deviation 64.6 fL RDW Coefficient of Variation 21.7 % Platelet Count 96 K/uL Nucleated RBC Absolute Count (auto) 0.90 K/uL Nucleated Red Blood Cells % 5.9 % Platelet Estimate DECREASED Activated Partial Thromboplast Time 159.9 SECONDS 114.0 SECONDS Partial Thromboplastin Ratio 6.2 4.4 Sodium Level 137 mmol/L Potassium Level 3.4 mmol/L Chloride Level 104 mmol/L Carbon Dioxide Level 23 mmol/L Anion Gap 10.0 mmol/L Blood Urea Nitrogen 91 mg/dl Creatinine 3.63 mg/dl Est Creatinine Clear Calc Drug Dose 21.5 ml/min Estimated GFR () 19.4 Estimated GFR (Non- 16.8 BUN/Creatinine Ratio 25.2 Random Glucose 139 mg/dl Calcium Level 6.9 mg/dl Phosphorus Level 2.2 mg/dl Magnesium Level 1.7 mg/dl Test 07/27/17 09:10 07/27/17 09:25 Bedside Glucose 115 mg/dl Random Vancomycin Level 19.2 mcg/ml Assessment and Plan (1) 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 (2) Cellulitis of left hand Status: Acute Assessment & Plan: Increased edema LUE, erythema (3) ESRD (end stage renal disease) on dialysis Status: Acute Assessment & Plan: Increased edema - HD per Nephro (4) Hypoxemia requiring supplemental oxygen Status: Acute Assessment & Plan: ? PE, dong better on BiPAP (5) High risk medication use Status: Acute Assessment & Plan: Cont methadone for pain and to avoid withdraw - can be given SL if needed Total time > 35 min assessing pt and collaborating with attending Palliative Performance Scale: 30 % Continued [facility] stay due to: inadequate oral pain control, other (O2 requirement ) Discharge planning: other (hope to be able to transfer to rehab when medically stable) Counseling and Coordination Total time 35 min with > 50% of time spent at pt bedside
[2017-07-27] MEDS ORDERED: INSULIN ASPART 100 UNITS/ML 3 ML PEN SC SCH (12:00)
--- NOTE | 2017-07-27 12:09 | Nephrology Progress Note ---
Nephrology Progress Note Date of Service Jul 27, 2017. Chief Complaint ESRD Subjective Padilla was seen and evaluated this morning. He remains on BIPAP. Dyspnea improved. He is tolerating the therapy. He denies chest pain or palpitations. Overall, he continues to report fair pain control. Padilla tolerated dialysis well yesterday. UF challenge provided as BP tolerated. Net UF 2.5 L. BP acceptable this morning. No fevers or chills. Bowel movement noted this morning and patient passing flatus. NGT removed. Review of Systems A complete review of systems was performed. Pertinent positives are noted above. All other systems are negative. Vital Signs Last 8 Hrs Date Time Temp Pulse Resp B/P (MAP) Pulse Ox O2 Delivery O2 Flow Rate FiO2 07/27/17 07:42 37.1 118 20 141/73 (95) 92 BiPAP 07/27/17 07:15 120 93 6.0 07/27/17 05:54 121 157/87 07/27/17 05:35 121 91 6.0 Last Recorded Weight Weight (Kilograms): 83.400 Physical Exam General Appearance: WD/WN, no apparent distress Head: normocephalic, atraumatic Eyes: normal inspection, sclerae normal ENT: normal ENT inspection, + pertinent finding (BIPAP) Neck: supple, no JVD Respiratory/Chest: no respiratory distress, no accessory muscle use, + rales Cardiovascular: regular rate, rhythm, no gallop Abdomen/GI: soft, + distended, + pertinent finding (appropriately tender, incision CDI) Extremities/Musculoskelatal: normal inspection, no pedal edema Neurologic/Psych: alert, + depressed affect Family History Cervical cancer Diabetes mellitus Heart disease Hypertension Myocardial infarction Pancreatic cancer Prostate cancer Negative for CKD/ESRD Social History Smokeless Tobacco Use: No Alcohol Use: none Drug Use: none Marital Status: single Housing Status: lives alone Occupation: disabled Single, retired. Formerly worked for [employer]. Never a smoker. Laboratory Results Past 24 Hours 07/26/17 16:38 Red Blood Count 3.75, Mean Corpuscular Volume 89.1, Mean Corpuscular Hemoglobin 29.6, Mean Corpuscular Hemoglobin Concent 33.2 07/27/17 05:51 07/27/17 05:51 Test 07/26/17 12:13 07/26/17 15:22 07/26/17 15:40 07/26/17 16:38 Prothrombin Time 11.2 SECONDS (9.0-12.0) Prothromb Time International Ratio 1.1 (0.9-1.1) Activated Partial Thromboplast Time 27.5 SECONDS (21.0-31.0) Partial Thromboplastin Ratio 1.1 Bedside Glucose 216 mg/dl (70-99) Arterial Blood pH 7.46 (7.35-7.45) Arterial Blood Partial Pressure CO2 29 mmHg (35-46) Arterial Blood Partial Pressure O2 49 mm/Hg (80-95) Arterial Blood HCO3 20 mmol/L (19-24) Arterial Blood Oxygen Saturation 84.5 % (90-95) Arterial Blood Base Excess -3.2 mEq/L (-9-1.8) Arterial Blood Gas Delivery RA Ezio Test POS (POS) White Blood Count 17.15 K/uL (4.8-10.8) Red Blood Count 3.75 M/uL (4.7-6.1) Hemoglobin 11.1 g/dL (14.0-18.0) Hematocrit 33.4 % (42-52) Mean Corpuscular Volume 89.1 fL (80-100) Mean Corpuscular Hemoglobin 29.6 pg (25-34) Mean Corpuscular Hemoglobin Concent 33.2 g/dl (32-36) Platelet Count 98 K/uL (130-400) RDW Standard Deviation 64.0 fL (36.4-46.3) RDW Coefficient of Variation 21.5 % (11.5-14.5) Nucleated RBC Absolute Count (auto) 0.74 K/uL (0-0) Neutrophils % (Manual) 97.3 % Lymphocytes % (Manual) 0.9 % Metamyelocytes % 1.8 % Nucleated Red Blood Cells % 4.3 % Neutrophils # (Manual) 16.69 K/uL (1.4-6.5) Total Absolute Neutrophils 16.69 K/uL (1.4-6.5) Lymphocytes # (Manual) 0.15 K/uL (1.2-3.4) Total Absolute Lymphocytes 0.15 K/uL (1.2-3.4) Metamyelocytes # 0.31 K/uL (0-0) Toxic Granulation 1+ Platelet Estimate DECREASED Large Platelets 1+ Polychromasia 1+ Poikilocytosis PRESENT Basophilic Stippling 1+ Spherocytes 1+ Test 07/26/17 18:04 07/26/17 19:07 07/26/17 21:00 07/26/17 22:42 Bedside Glucose 182 mg/dl (70-99) Activated Partial Thromboplast Time 211.0 SECONDS (21.0-31.0) 111.3 SECONDS (21.0-31.0) 55.3 SECONDS (21.0-31.0) Partial Thromboplastin Ratio 8.1 4.3 2.1 Test 07/26/17 23:40 07/27/17 03:47 07/27/17 05:51 07/27/17 07:15 Bedside Glucose 182 mg/dl (70-99) 159 mg/dl (70-99) Red Blood Count 3.32 M/uL (4.7-6.1) Mean Corpuscular Volume 89.5 fL (80-100) Mean Corpuscular Hemoglobin 29.2 pg (25-34) Mean Corpuscular Hemoglobin Concent 32.7 g/dl (32-36) RDW Standard Deviation 64.6 fL (36.4-46.3) RDW Coefficient of Variation 21.7 % (11.5-14.5) Nucleated RBC Absolute Count (auto) 0.90 K/uL (0-0) Nucleated Red Blood Cells % 5.9 % Platelet Estimate DECREASED Activated Partial Thromboplast Time 159.9 SECONDS (21.0-31.0) 114.0 SECONDS (21.0-31.0) Partial Thromboplastin Ratio 6.2 4.4 Anion Gap 10.0 mmol/L (3-11) Est Creatinine Clear Calc Drug Dose 21.5 ml/min Estimated GFR () 19.4 Estimated GFR (Non- 16.8 BUN/Creatinine Ratio 25.2 (10-20) Calcium Level 6.9 mg/dl (8.5-10.1) Phosphorus Level 2.2 mg/dl (2.5-4.9) Magnesium Level 1.7 mg/dl (1.8-2.4) Test 07/27/17 09:10 07/27/17 09:25 Bedside Glucose 115 mg/dl (70-99) Random Vancomycin Level 19.2 mcg/ml Allergies Coded Allergies: Iodinated Diagnostic Agents (Verified Allergy, Unknown, oil based, severe headaches, 06/20/17) EVENT OCCURED IN 1971, PT STATES HE HAS HAD 3 DIFFERENT WATER BASED IVP DYES WITH NO ISSUE Medications Current Inpatient Medications Medications (Trade) Dose Ordered Sig/Edward Route Start Time Stop Time Status Last Admin Dose Admin Lactobacillus Acidophilus (Floranex Tab) 2 tab TID PO 07/06/17 09:00 08/05/17 08:59 07/27/17 10:49 2 TAB Lisinopril (Zestril Tab) 40 mg DAILY PO 07/06/17 09:00 08/05/17 08:59 07/27/17 10:41 40 MG Miscellaneous Information (Check Fentanyl Patch Placement) 1 ea QS N/A 07/06/17 08:00 08/05/17 07:59 07/27/17 09:13 1 EA Glucose (Glucose 40% Gel) 15-30 GRAMS 15 GRAMS... UD PRN PO 07/06/17 04:15 08/05/17 04:14 Glucose (Glucose Chew Tab) 4-8 Tablets 4 Tabl... UD PRN PO 07/06/17 04:15 08/05/17 04:14 Dextrose (Dextrose 50% 50ML Syringe) 25-50ML OF 50% DW IV FOR... UD PRN IV 07/06/17 04:15 08/05/17 04:14 07/06/17 05:40 25 ML Glucagon (Glucagon Inj) 1 mg UD PRN SQ 07/06/17 04:15 08/05/17 04:14 Heparin Sodium (Porcine) (Heparin 100 Unit/ml 5ml Flush) 5 ml PRN PRN IV 07/07/17 02:45 08/06/17 02:44 Future hold 07/26/17 01:15 5 ML Ondansetron HCl (Zofran Inj) 4 mg Q4H PRN IV 07/11/17 03:00 08/10/17 02:59 07/17/17 21:50 4 MG Prochlorperazine Edisylate 5 mg/ Syringe 5 ml @ 5 mls/min Q4H PRN IV 07/11/17 14:00 08/10/17 13:59 Lactulose (Chronulac Syrup) 30 gm Q4H PRN PO 07/11/17 16:45 08/10/17 16:44 Miscellaneous (Fentanyl Patch Remove & Waste) 1 ea Q3D@0859 N/A 07/22/17 08:59 08/21/17 08:58 07/25/17 08:35 1 EA Fentanyl (Duragesic Patch) 25 mcg Q3D@0900 TD 07/22/17 09:00 08/05/17 08:59 07/25/17 08:33 25 MCG Insulin Glargine (Lantus Solostar Pen) 6 units HS SC 07/20/17 21:00 08/19/17 20:59 07/26/17 21:52 6 UNITS Ergocalciferol (Vitamin D Cap) 50,000 interunit Q7D@0900 PO 07/20/17 09:00 08/19/17 08:59 07/20/17 09:32 50,000 INTERUNIT Vancomycin HCl (Consult) 1 ea UD PRN N/A 07/21/17 16:00 08/20/17 15:59 Miscellaneous Information (Pharmacy Tpn/ Ppn Consult Active) 1 ea UD PRN N/A 07/21/17 17:00 08/20/17 16:59 Hydralazine HCl (HydrALAZINE INJ) 5 mg Q4 PRN IV. 07/21/17 17:15 08/20/17 17:14 07/25/17 23:45 5 MG Furosemide 20 mg/ Syringe 2 ml @ 4 mls/min QAM IV 07/22/17 09:00 08/21/17 08:59 07/27/17 09:15 4 MLS/MIN Hydralazine HCl (HydrALAZINE INJ) 5 mg TID IV. 07/21/17 21:00 08/20/17 20:59 07/27/17 09:19 5 MG Methylprednisolone Sodium Succinate 40 mg/Syringe 0.64 ml @ 1.5 mls/min DAILY IV 07/22/17 09:00 08/21/17 08:59 07/27/17 09:14 1.5 MLS/MIN Fentanyl Citrate (Fentanyl Inj) Fentanyl 25-50 mcg... Q4H PRN IV 07/21/17 20:45 08/04/17 20:44 07/24/17 05:47 50 MCG Metoprolol Tartrate (Lopressor Iv) 5 mg Q6 IV. 07/22/17 12:00 08/20/17 17:59 07/27/17 05:54 5 MG Dextrose 1,000 ml @ 0 mls/hr Q0M PRN IV 07/22/17 16:00 08/21/17 15:59 Cefepime HCl (Consult) 1 ea UD PRN N/A 07/22/17 11:30 08/21/17 11:29 Cefepime HCl 500 mg/Syringe 5.5 ml @ 5.5 mls/min DAILY@1600 IV 07/23/17 16:00 08/02/17 15:59 07/26/17 16:08 5.5 MLS/MIN Miscellaneous Information (Consult Glycemic Management Pharmacy) 1 ea UD PRN N/A 07/23/17 13:14 08/22/17 13:13 Morphine Sulfate (MoRPHine SULFATE INJ) 2 mg Q3RWA PRN IV 07/24/17 11:30 08/07/17 11:29 07/27/17 06:04 2 MG Non-Formulary Medication (Patient'S Own Controlled Med) 1 ea BID PEG 07/25/17 09:00 08/08/17 08:59 07/27/17 10:48 1 EA Methadone HCl (Methadone HCl) 20 mg BID GT 07/25/17 09:00 08/08/17 08:59 07/27/17 10:48 20 MG Nutrition (Parenteral) 0 ml @ 0 mls/hr TODAY@1600 IV 07/26/17 16:00 07/27/17 15:59 07/26/17 16:08 0 MLS/HR Heparin Sodium/ Dextrose 500 ml @ 23 mls/hr [id number] PRN IV 07/26/17 12:15 08/25/17 12:14 07/26/17 23:52 23 MLS/HR Metronidazole 500 mg/Prmx 100 ml @ 100 mls/hr Q8H IV 07/26/17 15:00 08/05/17 14:59 07/27/17 09:09 100 MLS/HR Caspofungin 70 mg/ Sodium Chloride 260 ml @ 250 mls/hr 1100 ONCE IV 07/27/17 11:00 07/27/17 12:02 Caspofungin 50 mg/ Sodium Chloride 260 ml @ 250 mls/hr Q24H IV 07/28/17 12:00 08/06/17 11:59 Insulin Aspart (novoLOG ASPART) SLIDING SCALE G... ACHS SC 07/27/17 11:30 08/26/17 11:29 Nutrition (Parenteral) 0 ml @ 0 mls/hr TODAY@1600 IV 07/27/17 16:00 07/28/17 15:59 Impression (1) Cellulitis of left hand (2) ESRD (end stage renal disease) on dialysis (3) Renal cell carcinoma (4) Anemia (5) Diabetes type 2, controlled Mr. Christy has ESRD and metastatic RCC. He underwent left nephrectomy in 2015. Patient did not tolerate Sutent due to high grade proteinuria, Opdivo caused arthralgia, colitis and possible pneumonitis. He was most recently treated w/ Cabometyx. Mr. Christy was admitted with persistent soft tissue infection of the left hand. Patient tested positive for C. Difficile colitis. On 07/21 Mr. Christy was diagnosed with intestinal perforation and required emergency laparotomy. 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 Partial colectomy w/ reanastomosis was completed Mr. Christy's dialysis has been complicated by prolonged bleeding from the AVF following treatment. 07/23 doppler study reveals high grade venous outflow stenosis. Fistulogram with coil embolization completed 07/25/16. Recommendations END STAGE RENAL DISEASE: -- HD MWF -- BP and volume status are currently appropriate -- Metabolic profile within normal limits ANEMIA: -- IDALIA w/ HD treatments HYPERTENSION: -- Blood pressure is currently well controlled. Continue current antihypertensive regimen. No change at present. RENAL CELL CA: -- Cabozantinib is on hold. Oncology is in agreement CKD-BMD: -- Calcitriol and CaCO3 on hold due to recent abdominal surgery ID: -- ID note reviewed today -- Medications appropriate for renal function
[2017-07-27 13:55] LABS: PTT PATIENT 50.8 SECONDS (21.0-31.0)
--- NOTE | 2017-07-27 15:50 | Progress Note ---
Subjective Date of Service: Jul 27, 2017. Subjective Pt evaluation today including: conversation w/ patient, physical exam, chart review, lab review, review of studies, review of inpatient medication list Reports pain controlled Wanting to stay on BiPAP today NGT removed No other concerns at this time Diet advanced to clears Problem List Medical Problems: (1) Acute dyspnea Status: Acute (2) Chronic kidney disease Status: Acute (3) Failure of outpatient treatment Status: Acute (4) Left arm cellulitis Status: Acute (5) Renal cell carcinoma Status: Acute Review of Systems Constitutional: No fever, No chills, No sweats, No weakness Eyes: No worsening of vision, No eye pain, No redness Respiratory: + shortness of breath, + dyspnea at rest, No cough, No sputum, No wheezing Cardiac: No chest pain, No orthopnea, No PND, No edema Abdomen: No pain, No nausea, No vomiting, No diarrhea Musculoskeletal: No joint pain, No muscle pain, No swelling, No calf pain Male : No dysuria, No urinary frequency, No incontinence, No nocturia more than once/night Neurologic: No memory loss, No paralysis, No weakness, No numbness/tingling Psychiatric: No depression symptoms, No anhedonism, No anxiety, No insomnia Endo: No fatigue, No excessive thirst Skin: No rash, No itch Objective Vital Signs Date Time Temp Pulse Resp B/P (MAP) Pulse Ox O2 Delivery O2 Flow Rate FiO2 07/27/17 15:24 108 95 6.0 07/27/17 12:47 121 169/74 07/27/17 12:30 91 BiPAP 6.0 07/27/17 10:57 37.7 121 20 169/74 (105) 92 BiPAP 07/27/17 08:30 91 BiPAP 6.0 07/27/17 07:42 37.1 118 20 141/73 (95) 92 BiPAP 07/27/17 07:15 120 93 6.0 07/27/17 05:54 121 157/87 07/27/17 05:35 121 91 6.0 07/27/17 04:00 BiPAP 07/27/17 03:25 36.8 111 24 129/69 (89) 90 BiPAP 07/27/17 02:52 111 98 10.0 07/27/17 00:10 37.0 120 18 148/81 (103) 96 BiPAP 07/26/17 23:59 BiPAP 10.0 07/26/17 23:54 115 07/26/17 23:18 126 94 10.0 07/26/17 20:04 114 91 10.0 07/26/17 20:00 90 BiPAP 07/26/17 19:05 36.8 114 22 148/88 (108) 92 BiPAP 07/26/17 18:05 36.9 108 22 160/74 (102) 91 BiPAP 07/26/17 17:48 126 128/65 07/26/17 17:45 126 18 128/65 (86) 92 BiPAP 8.0 07/26/17 16:00 88 BiPAP 8.0 Physical Exam General Appearance: WD/WN, no apparent distress Eyes: normal inspection, PERRL, EOMI, sclerae normal Neck: supple, no adenopathy, thyroid normal, no JVD Respiratory/Chest: chest non-tender, + respiratory distress, + accessory muscle use, + rales Cardiovascular: no edema, no gallop, no JVD, no murmur Abdomen: normal bowel sounds, non tender, soft, no organomegaly Extremities: normal range of motion, non-tender, normal inspection, + pedal edema Neurologic/Psychiatric: no motor/sensory deficits, alert, normal mood/affect, oriented x 3 Skin: normal color, warm/dry, no rash Lymphatic: no adenopathy Laboratory Results Last 24 Hours Test 07/26/17 16:38 07/26/17 18:04 07/26/17 19:07 07/26/17 21:00 White Blood Count 17.15 K/uL Red Blood Count 3.75 M/uL Hemoglobin 11.1 g/dL Hematocrit 33.4 % Mean Corpuscular Volume 89.1 fL Mean Corpuscular Hemoglobin 29.6 pg Mean Corpuscular Hemoglobin Concent 33.2 g/dl Platelet Count 98 K/uL RDW Standard Deviation 64.0 fL RDW Coefficient of Variation 21.5 % Nucleated RBC Absolute Count (auto) 0.74 K/uL Neutrophils % (Manual) 97.3 % Lymphocytes % (Manual) 0.9 % Metamyelocytes % 1.8 % Nucleated Red Blood Cells % 4.3 % Neutrophils # (Manual) 16.69 K/uL Total Absolute Neutrophils 16.69 K/uL Lymphocytes # (Manual) 0.15 K/uL Total Absolute Lymphocytes 0.15 K/uL Metamyelocytes # 0.31 K/uL Toxic Granulation 1+ Platelet Estimate DECREASED Large Platelets 1+ Polychromasia 1+ Poikilocytosis PRESENT Basophilic Stippling 1+ Spherocytes 1+ Bedside Glucose 182 mg/dl Activated Partial Thromboplast Time 211.0 SECONDS 111.3 SECONDS Partial Thromboplastin Ratio 8.1 4.3 Test 07/26/17 22:42 07/26/17 23:40 07/27/17 03:47 07/27/17 05:51 Activated Partial Thromboplast Time 55.3 SECONDS 159.9 SECONDS Partial Thromboplastin Ratio 2.1 6.2 Bedside Glucose 182 mg/dl 159 mg/dl White Blood Count 15.28 K/uL Red Blood Count 3.32 M/uL Hemoglobin 9.7 g/dL Hematocrit 29.7 % Mean Corpuscular Volume 89.5 fL Mean Corpuscular Hemoglobin 29.2 pg Mean Corpuscular Hemoglobin Concent 32.7 g/dl RDW Standard Deviation 64.6 fL RDW Coefficient of Variation 21.7 % Platelet Count 96 K/uL Nucleated RBC Absolute Count (auto) 0.90 K/uL Nucleated Red Blood Cells % 5.9 % Platelet Estimate DECREASED Sodium Level 137 mmol/L Potassium Level 3.4 mmol/L Chloride Level 104 mmol/L Carbon Dioxide Level 23 mmol/L Anion Gap 10.0 mmol/L Blood Urea Nitrogen 91 mg/dl Creatinine 3.63 mg/dl Est Creatinine Clear Calc Drug Dose 21.5 ml/min Estimated GFR () 19.4 Estimated GFR (Non- 16.8 BUN/Creatinine Ratio 25.2 Random Glucose 139 mg/dl Calcium Level 6.9 mg/dl Phosphorus Level 2.2 mg/dl Magnesium Level 1.7 mg/dl Test 07/27/17 07:15 07/27/17 09:10 07/27/17 09:25 07/27/17 12:05 Activated Partial Thromboplast Time 114.0 SECONDS Partial Thromboplastin Ratio 4.4 Bedside Glucose 115 mg/dl 128 mg/dl Random Vancomycin Level 19.2 mcg/ml Test 07/27/17 12:52 Activated Partial Thromboplast Time 50.8 SECONDS Partial Thromboplastin Ratio 2.0 Assessment and Plan Mr. Christy is a 61 yo M with PMH of ESRD on HD, RCC, DMII. Admitted for L hand cellulitis having failed outpatient management. Abdominal pain, found to have incidental rectus sheath hematoma, C.diff positive colitis and subsequent bowel perforation on 07/21, now s/p colectomy, anemia, and bilateral pneumonia on imaging. Abdominal pain, c diff colitis, perforated jejunal bowel, s/p colectomy, rectus sheath hematoma: Diarrhea - C.Diff - remains afebrile - C.diff positive - unable to take oral vanc at this time, started on IV flagyl , IV vanc for other issue (hand cellulitis), and may receive some benefit. However, necessary to treat perforation at this time, dialysis will aid the anasarca, and hopefully resumption of oral vanc can be done once diet advanced - Adequate pain control with fentanyl patch 25-50 mcg q4h POD # 6 from small bowel resection due to jejunal diverticular perforation. - Pain controlled on methadone and morphine IV PRN - NGT removed 07/27/17, advanced to clears Metastatic Renal cell cancer - Cabozantinib held due to likely inciting his small intestinal inflammation/ perforation - On consulted and agree with recs at this time ESRD HD secondary to RCC/ s/p left nephrectomy - Nephrology Consulted - Receives HD on Tuesdays, and Saturdays - unable to receive dialysis yesterday due to technical problems, US doppler shows sign stenosis. - IJ placed 07/23 to initiate dialysis, Vascular surg consulted for AVF repair - hypocalcemia; Vit D level of 9.4, supplement with ergocalciferol [id number] indefinitely plus daily D3 2000 when patient resumes oral intake - Recheck levels in 12 weeks Left hand cellulitis - persists, stable - ID consulted. 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 - started on methadone, morphine PRN DMII - 7 units of Lantus with sliding scale - BSG AC HS Anemia - nephrology -> continue epogen 48569 units and venofer 100mg - continue to monitor HTN/hyperlipidemia - asa 81 mg DCd while NPO: if prolonged NPO, consider aspirin suppositories in 48 hours - furosemide 20 IV daily; check daily BMP and monitor status- - hydralazine 100 mg tid-->converted to 5 TID scheduled, hold sys <120 - amlodipine 10 mg daily--> converted to 5 hydralazine prn for systolic >180 - metoprolol 150 mg bid-->IV 2.5 q6 - lisinopril 40 mg daily held while pressures are assessed in ICU. - simvastatin 20 mg daily DCd while NPO - I&O and daily weights BPH - continue tamsulosin 0.4 mg (held while in NPO) ESRD Bone Mineral Disease - Continue oral Calcitriol - Continue CaCO3 500 mg with meals DVT Prophylaxis: SCDs Code: Full Continued [facility] stay due to: inadequate oral pain control, other (O2 requirement ) Discharge planning: other (hope to be able to transfer to rehab when medically stable)
[2017-07-27] MEDS ORDERED: POTASSIUM CHLR 10 MEQ / WTR 10 MEQ in PREMIXED WATER 100 ML IV ONE (16:00)
[2017-07-27] MEDS ORDERED: CUSTOM CENTRAL PN 1 BAG IV SCH (16:00)
[2017-07-27] MEDS: CEFEPIME IV 500 MG in SYRINGE 0 ML IV SCH (16:13)
[2017-07-27] MEDS ORDERED: EPOETIN ALFA 4000 UNITS/ML VIAL IV SCH (17:45)
--- NOTE | 2017-07-27 18:35 | Pulmonology Progress Note ---
Pulmonary Progress Note Date of Service Jul 27, 2017. Attending Subjective Patient seen and examined at bedside per request of hospitalist. Patient known to the pulmonary service earlier on this admission due to hypoxemia for questionable cryptogenic organizing pneumonia versus drug induced pneumonitis. We were following peripherally while patient was transferred to the ICU after his hospital course was complicated by perforation of jejunal bowel and resection on 07/21/2017 . He was also found to have rectal sheath hematoma. He was subsequently transferred back to the medical floor, but still remains with tenuous respiratory status. He still gets quite dyspneic while off BIPAP and continues to use BIPAP per patient's request. He has occasional nonproductive cough. Per nurse, he has not able to tolerate being off BIPAP for more than five minutes and desaturates quickly in the th 80's. He is currently on TPN and s/p jejunal resection and also on heparin ggt for presumed PE. He denies any abdominal pain. He does have some abdominal tenderness, but pain is well controlled. Objective Vital signs reviewed. Tm 37.2, BP 114/64-169/74, P 103-121, RR18-24, SaO2 90-98 % on 06/03 with RR 12 bpm. General: Patient is awake, alert, cooperative, and in no acute distress. Currently on BIPAP. Head: Normocephalic, Atraumatic. ENT: PERRLA, No discharge, EOMI, Sclera normal Neck: Normal ROM. Trachea midline. No stridor, left IJ shiley Respiratory/Chest: Mild decrease in breath sounds b/l. No respiratory distress. No accessory muscle use. Left tunneled catheter in place. Cardiovascular: Regular rate and rhythm. No murmur appreciate. Normal S1/S2. Abdomen: Mild tenderness to palpation. Normal bowel sounds hear throughout. No guarding. Back: Normal inspection. Extremities: Normal ROM, trace edema bilaterally in upper and lower extremities , no cyanosis. Ecchymosis of LUE Neuro: Alert, Oriented x 3. CN II-XII grossly intact. Sensation and motor function grossly intact. Psych: Mood and affect are flat Labs reviewed. Gram stain peritoneal fluid 07/21/2017--dc glabrata C. difficile toxin PCR 07/12/2017-positive for c.diff toxin B Imaging reviewed. Medications reviewed. Assessment & Plan Acute Hypoxic Respiratory Failure Right sided pleural effusion versus rounded atelectasis Bilateral lung opacities Renal Cell Carcinoma CKD on hemodialysis Possible Cryptogenic Organizing Pneumonia Fungal peritonitis Ruptured viscous s/p bowel resection Rectal sheath hematoma C. difficile infection Patient has had a complicated course. He is still in acute hypoxic respiratory failure that is multifactorial in nature. Now complicated by possible pulmonary emboli for which he receiving empiric treatment with heparin gtt. Recommendations Continue with BIPAP at current settings. I explained to patient and family that his respiratory status is tenuous at this time. He does appear more comfortable at this time on BIPAP. We can try high flow nasal canula in AM. Pending AM ABG. We discussed goals of care and he stated that he still wants everything to be done including intubation and cardiac resuscitation. Continue with antibiotics per ID recommendations. Consider tapering Solumedrol to q12h. He does not appear to be bronchospastic at this time. Recommend nebulizer prn. Continue dialysis and lasix per nephrology recommendations. Continue heparin drip for presumed PE. Continue with adequate pain control and incentive spirometry once patient able to taper off of BIPAP. Pulmonary will follow. Data Medications: Current Inpatient Medications Medications (Trade) Dose Ordered Sig/Edward Route Start Time Stop Time Status Last Admin Dose Admin Lactobacillus Acidophilus (Floranex Tab) 2 tab TID PO 07/06/17 09:00 08/05/17 08:59 07/27/17 14:24 2 TAB Lisinopril (Zestril Tab) 40 mg DAILY PO 07/06/17 09:00 08/05/17 08:59 07/27/17 10:41 40 MG Miscellaneous Information (Check Fentanyl Patch Placement) 1 ea QS N/A 07/06/17 08:00 08/05/17 07:59 07/27/17 16:08 1 EA Glucose (Glucose 40% Gel) 15-30 GRAMS 15 GRAMS... UD PRN PO 07/06/17 04:15 08/05/17 04:14 Glucose (Glucose Chew Tab) 4-8 Tablets 4 Tabl... UD PRN PO 07/06/17 04:15 08/05/17 04:14 Dextrose (Dextrose 50% 50ML Syringe) 25-50ML OF 50% DW IV FOR... UD PRN IV 07/06/17 04:15 08/05/17 04:14 07/06/17 05:40 25 ML Glucagon (Glucagon Inj) 1 mg UD PRN SQ 07/06/17 04:15 08/05/17 04:14 Heparin Sodium (Porcine) (Heparin 100 Unit/ml 5ml Flush) 5 ml PRN PRN IV 07/07/17 02:45 08/06/17 02:44 Future hold 07/26/17 01:15 5 ML Ondansetron HCl (Zofran Inj) 4 mg Q4H PRN IV 07/11/17 03:00 08/10/17 02:59 07/17/17 21:50 4 MG Prochlorperazine Edisylate 5 mg/ Syringe 5 ml @ 5 mls/min Q4H PRN IV 07/11/17 14:00 08/10/17 13:59 Lactulose (Chronulac Syrup) 30 gm Q4H PRN PO 07/11/17 16:45 08/10/17 16:44 Miscellaneous (Fentanyl Patch Remove & Waste) 1 ea Q3D@0859 N/A 07/22/17 08:59 08/21/17 08:58 07/25/17 08:35 1 EA Fentanyl (Duragesic Patch) 25 mcg Q3D@0900 TD 07/22/17 09:00 08/05/17 08:59 07/25/17 08:33 25 MCG Insulin Glargine (Lantus Solostar Pen) 6 units HS SC 07/20/17 21:00 08/19/17 20:59 07/26/17 21:52 6 UNITS Ergocalciferol (Vitamin D Cap) 50,000 interunit Q7D@0900 PO 07/20/17 09:00 08/19/17 08:59 07/20/17 09:32 50,000 INTERUNIT Vancomycin HCl (Consult) 1 ea UD PRN N/A 07/21/17 16:00 08/20/17 15:59 Miscellaneous Information (Pharmacy Tpn/ Ppn Consult Active) 1 ea UD PRN N/A 07/21/17 17:00 08/20/17 16:59 Hydralazine HCl (HydrALAZINE INJ) 5 mg Q4 PRN IV. 07/21/17 17:15 08/20/17 17:14 07/25/17 23:45 5 MG Furosemide 20 mg/ Syringe 2 ml @ 4 mls/min QAM IV 07/22/17 09:00 08/21/17 08:59 07/27/17 09:15 4 MLS/MIN Hydralazine HCl (HydrALAZINE INJ) 5 mg TID IV. 07/21/17 21:00 08/20/17 20:59 07/27/17 16:15 5 MG Methylprednisolone Sodium Succinate 40 mg/Syringe 0.64 ml @ 1.5 mls/min DAILY IV 07/22/17 09:00 08/21/17 08:59 07/27/17 09:14 1.5 MLS/MIN Fentanyl Citrate (Fentanyl Inj) Fentanyl 25-50 mcg... Q4H PRN IV 07/21/17 20:45 08/04/17 20:44 07/24/17 05:47 50 MCG Metoprolol Tartrate (Lopressor Iv) 5 mg Q6 IV. 07/22/17 12:00 08/20/17 17:59 07/27/17 17:36 5 MG Dextrose 1,000 ml @ 0 mls/hr Q0M PRN IV 07/22/17 16:00 08/21/17 15:59 Cefepime HCl (Consult) 1 ea UD PRN N/A 07/22/17 11:30 08/21/17 11:29 Cefepime HCl 500 mg/Syringe 5.5 ml @ 5.5 mls/min DAILY@1600 IV 07/23/17 16:00 08/02/17 15:59 07/27/17 16:13 5.5 MLS/MIN Miscellaneous Information (Consult Glycemic Management Pharmacy) 1 ea UD PRN N/A 07/23/17 13:14 08/22/17 13:13 Morphine Sulfate (MoRPHine SULFATE INJ) 2 mg Q3RWA PRN IV 07/24/17 11:30 08/07/17 11:29 07/27/17 12:59 2 MG Non-Formulary Medication (Patient'S Own Controlled Med) 1 ea BID PEG 07/25/17 09:00 08/08/17 08:59 07/27/17 10:48 1 EA Methadone HCl (Methadone HCl) 20 mg BID GT 07/25/17 09:00 08/08/17 08:59 07/27/17 10:48 20 MG Heparin Sodium/ Dextrose 500 ml @ 23 mls/hr [id number] PRN IV 07/26/17 12:15 08/25/17 12:14 07/26/17 23:52 23 MLS/HR Metronidazole 500 mg/Prmx 100 ml @ 100 mls/hr Q8H IV 07/26/17 15:00 08/05/17 14:59 07/27/17 14:21 100 MLS/HR Caspofungin 50 mg/ Sodium Chloride 260 ml @ 250 mls/hr Q24H IV 07/28/17 12:00 08/06/17 11:59 Insulin Aspart (novoLOG ASPART) SLIDING SCALE G... ACHS SC 07/27/17 11:30 08/26/17 11:29 Nutrition (Parenteral) 0 ml @ 0 mls/hr TODAY@1600 IV 07/27/17 16:00 07/28/17 15:59 07/27/17 16:14 0 MLS/HR Epoetin Mohsen 4000 units/Syringe 0.2 ml @ 1 mls/min TODAY@0800 IV. 07/28/17 08:00 07/28/17 18:00 I & O: 24-Hour Column 07/28/17 08:00 Intake Total 1577 ml Output Total 25 ml Balance 1552 ml Vital Signs: Date Time Temp Pulse Resp B/P (MAP) Pulse Ox O2 Delivery O2 Flow Rate FiO2 07/27/17 17:36 103 114/64 07/27/17 15:39 37.2 103 21 114/64 (81) 92 BiPAP 07/27/17 15:24 108 95 6.0 07/27/17 12:47 121 169/74 07/27/17 12:30 91 BiPAP 6.0 07/27/17 10:57 37.7 121 20 169/74 (105) 92 BiPAP 07/27/17 08:30 91 BiPAP 6.0 07/27/17 07:42 37.1 118 20 141/73 (95) 92 BiPAP 07/27/17 07:15 120 93 6.0 07/27/17 05:54 121 157/87 07/27/17 05:35 121 91 6.0 07/27/17 04:00 BiPAP 07/27/17 03:25 36.8 111 24 129/69 (89) 90 BiPAP 07/27/17 02:52 111 98 10.0 07/27/17 00:10 37.0 120 18 148/81 (103) 96 BiPAP 07/26/17 23:59 BiPAP 10.0 07/26/17 23:54 115 07/26/17 23:18 126 94 10.0 07/26/17 20:04 114 91 10.0 07/26/17 20:00 90 BiPAP 07/26/17 19:05 36.8 114 22 148/88 (108) 92 BiPAP 07/26/17 18:05 36.9 108 22 160/74 (102) 91 BiPAP Laboratory Results: Last 24 Hours Test 07/26/17 18:04 07/26/17 19:07 07/26/17 21:00 07/26/17 22:42 Bedside Glucose 182 mg/dl Activated Partial Thromboplast Time 211.0 SECONDS 111.3 SECONDS 55.3 SECONDS Partial Thromboplastin Ratio 8.1 4.3 2.1 Test 07/26/17 23:40 07/27/17 03:47 07/27/17 05:51 07/27/17 07:15 Bedside Glucose 182 mg/dl 159 mg/dl White Blood Count 15.28 K/uL Red Blood Count 3.32 M/uL Hemoglobin 9.7 g/dL Hematocrit 29.7 % Mean Corpuscular Volume 89.5 fL Mean Corpuscular Hemoglobin 29.2 pg Mean Corpuscular Hemoglobin Concent 32.7 g/dl RDW Standard Deviation 64.6 fL RDW Coefficient of Variation 21.7 % Platelet Count 96 K/uL Nucleated RBC Absolute Count (auto) 0.90 K/uL Nucleated Red Blood Cells % 5.9 % Platelet Estimate DECREASED Activated Partial Thromboplast Time 159.9 SECONDS 114.0 SECONDS Partial Thromboplastin Ratio 6.2 4.4 Sodium Level 137 mmol/L Potassium Level 3.4 mmol/L Chloride Level 104 mmol/L Carbon Dioxide Level 23 mmol/L Anion Gap 10.0 mmol/L Blood Urea Nitrogen 91 mg/dl Creatinine 3.63 mg/dl Est Creatinine Clear Calc Drug Dose 21.5 ml/min Estimated GFR () 19.4 Estimated GFR (Non- 16.8 BUN/Creatinine Ratio 25.2 Random Glucose 139 mg/dl Calcium Level 6.9 mg/dl Phosphorus Level 2.2 mg/dl Magnesium Level 1.7 mg/dl Test 07/27/17 09:10 07/27/17 09:25 07/27/17 12:05 07/27/17 12:52 Bedside Glucose 115 mg/dl 128 mg/dl Random Vancomycin Level 19.2 mcg/ml Activated Partial Thromboplast Time 50.8 SECONDS Partial Thromboplastin Ratio 2.0 Test 07/27/17 16:16 Bedside Glucose 158 mg/dl
[2017-07-27] MEDS: INSULIN GLARGINE SOLOSTAR 100 UNITS/ML 3 ML PEN SC SCH (20:11)
[2017-07-27 23:34] LABS: PTT PATIENT 148.7 SECONDS (21.0-31.0)
[2017-07-28] VITALS (23 sets, daily range): BP systolic 73–159; BP diastolic 36–72; PULSE 91–126; TEMP 36.6–37.1; O2SAT 90–97
[2017-07-28] MEDS: CHECK FENTANYL PATCH PLACEMENT SCH ×3 (00:29→15:43)
[2017-07-28] MEDS: METRONIDAZOLE 500MG / NSS IV SCH ×4 (00:29→22:17)
[2017-07-28] MEDS: METOPROLOL TARTRATE 1 MG/ML VIAL IV. SCH ×4 (00:30→17:53)
[2017-07-28] MEDS: HEPARIN 25,000 UNIT/500ML D5W 500 ML IV PRN (00:40)
[2017-07-28 00:51] LABS: PTT PATIENT 94.1 SECONDS (21.0-31.0)
[2017-07-28 07:51] LABS: MEAN CORPUSCULAR HGB CONC 32.5 g/dl (32-36); NUCLEATED RED BLOOD CELL ABS 0.53 K/uL (0-0)
[2017-07-28] MEDS ORDERED: EPOETIN ALFA INJ 4,000 UNITS in SYRINGE 0 ML IV. SCH (08:00)
[2017-07-28 08:29] LABS: HEMATOCRIT 25.1 % (42-52); HEMOGLOBIN 8.2 g/dL (14.0-18.0); MEAN CORPUSCULAR HEMOGLOBIN 29.4 pg (25-34); PLATELET COUNT 105 K/uL (130-400); RED CELL DISTRIBUTION WIDTH CV 21.7 % (11.5-14.5); RED CELL DISTRIBUTION WIDTH SD 65.2 fL (36.4-46.3); WHITE BLOOD COUNT 14.43 K/uL (4.8-10.8)
[2017-07-28 08:36] LABS: PTT PATIENT 64.5 SECONDS (21.0-31.0)
[2017-07-28] MEDS: METHYLPREDNISOLONE IV 40 MG in SYRINGE 0 ML IV SCH (09:00)
[2017-07-28] MEDS: FENTANYL 25 MCG/HR TDSY TD SCH (09:01)
[2017-07-28] MEDS: FUROSEMIDE INJ 20 MG in SYRINGE 0 ML IV SCH (09:01)
[2017-07-28] MEDS: LACTOBACILLUS ACIDOPHILUS (FLORANEX) TAB PO SCH ×3 (09:03→22:09)
[2017-07-28] MEDS: INSULIN ASPART 100 UNITS/ML 3 ML PEN SC SCH ×4 (09:11→22:16)
[2017-07-28] MEDS: METHADONE ORAL SOLN 2 MG/1ML GT SCH (09:16)
[2017-07-28] MEDS: PATIENT'S OWN CONTROLLED MED PEG SCH (09:16)
[2017-07-28] MEDS: FENTANYL PATCH REMOVE & WASTE SCH (09:18)
[2017-07-28] MEDS: HydrALAZINE HCL 20 MG/ML VIAL IV. SCH ×3 (09:19→22:08)
[2017-07-28] MEDS: LISINOPRIL 40 MG TAB PO SCH (09:19)
--- NOTE | 2017-07-28 09:36 | Nephrology Progress Note ---
Nephrology Progress Note Date of Service Jul 28, 2017. Chief Complaint ESRD Subjective No acute events overnight. Padilla feels "good" and "bad" today. He reports improvement in his breathing. He continues to fatigue off of BIPAP. He denies fevers or chills. Abdomen remains distended but he is passing flatus. He has moved his bowels but does not have diarrhea. No nausea. Tolerating PO diet. Review of Systems A complete review of systems was performed. Pertinent positives are noted above. All other systems are negative. Vital Signs Last 8 Hrs Date Time Temp Pulse Resp B/P (MAP) Pulse Ox O2 Delivery O2 Flow Rate FiO2 07/28/17 08:02 37.0 98 18 124/68 (86) 95 07/28/17 07:47 94 90 5.0 07/28/17 06:42 98 132/88 07/28/17 05:33 100 90 5.0 07/28/17 04:00 BiPAP 6.0 07/28/17 03:28 37.1 100 18 151/70 (97) 94 07/28/17 03:20 98 91 5.0 Last Recorded Weight Weight (Kilograms): 84.000 Physical Exam General Appearance: no apparent distress, + pertinent finding (generalized weakness) Head: normocephalic, atraumatic Eyes: normal inspection, sclerae normal ENT: normal ENT inspection, pharynx normal, + pertinent finding (oral mucosa dry) Neck: supple, + pertinent finding (LIJ dialysis catheter intact) Respiratory/Chest: + decreased breath sounds, + accessory muscle use, + pertinent finding (slight increase in work of breathing) Cardiovascular: no gallop, + tachycardia Abdomen/GI: + distended, + pertinent finding (appropriately tender, abdominal dressing CDI) Extremities/Musculoskelatal: normal inspection, no pedal edema, + pertinent finding (AVF with thrill and bruit) Neurologic/Psych: alert, + depressed affect Family History Cervical cancer Diabetes mellitus Heart disease Hypertension Myocardial infarction Pancreatic cancer Prostate cancer Negative for CKD/ESRD Social History Smokeless Tobacco Use: No Alcohol Use: none Drug Use: none Marital Status: single Housing Status: lives alone Occupation: disabled Single, retired. Formerly worked for [email or web address]. Never a smoker. Laboratory Results Past 24 Hours 07/28/17 07:38 Test 07/27/17 12:05 07/27/17 12:52 07/27/17 16:16 07/27/17 19:54 Bedside Glucose 128 mg/dl (70-99) 158 mg/dl (70-99) 205 mg/dl (70-99) Activated Partial Thromboplast Time 50.8 SECONDS (21.0-31.0) Partial Thromboplastin Ratio 2.0 Test 07/27/17 22:47 07/28/17 00:21 07/28/17 00:26 07/28/17 06:37 Activated Partial Thromboplast Time 148.7 SECONDS (21.0-31.0) 94.1 SECONDS (21.0-31.0) Partial Thromboplastin Ratio 5.7 3.6 Bedside Glucose 211 mg/dl (70-99) 214 mg/dl (70-99) Test 07/28/17 07:37 07/28/17 07:38 Activated Partial Thromboplast Time 64.5 SECONDS (21.0-31.0) Partial Thromboplastin Ratio 2.5 Red Blood Count 2.79 M/uL (4.7-6.1) Mean Corpuscular Volume 90.0 fL (80-100) Mean Corpuscular Hemoglobin 29.4 pg (25-34) Mean Corpuscular Hemoglobin Concent 32.5 g/dl (32-36) RDW Standard Deviation 65.2 fL (36.4-46.3) RDW Coefficient of Variation 21.7 % (11.5-14.5) Nucleated RBC Absolute Count (auto) 0.53 K/uL (0-0) Nucleated Red Blood Cells % 3.6 % Platelet Estimate DECREASED Arterial Blood pH 7.41 (7.35-7.45) Arterial Blood Partial Pressure CO2 32 mmHg (35-46) Arterial Blood Partial Pressure O2 53 mm/Hg (80-95) Arterial Blood HCO3 20 mmol/L (19-24) Arterial Blood Oxygen Saturation 85.3 % (90-95) Arterial Blood Base Excess -4.1 mEq/L (-9-1.8) Arterial Blood Gas Delivery 5L Ezio Test POS (POS) Allergies Coded Allergies: Iodinated Diagnostic Agents (Verified Allergy, Unknown, oil based, severe headaches, 06/20/17) EVENT OCCURED IN 1971, PT STATES HE HAS HAD 3 DIFFERENT WATER BASED IVP DYES WITH NO ISSUE Medications Current Inpatient Medications Medications (Trade) Dose Ordered Sig/Edward Route Start Time Stop Time Status Last Admin Dose Admin Lactobacillus Acidophilus (Floranex Tab) 2 tab TID PO 07/06/17 09:00 08/05/17 08:59 07/28/17 09:03 2 TAB Lisinopril (Zestril Tab) 40 mg DAILY PO 07/06/17 09:00 08/05/17 08:59 07/28/17 09:19 40 MG Miscellaneous Information (Check Fentanyl Patch Placement) 1 ea QS N/A 07/06/17 08:00 08/05/17 07:59 07/28/17 08:00 1 EA Glucose (Glucose 40% Gel) 15-30 GRAMS 15 GRAMS... UD PRN PO 07/06/17 04:15 08/05/17 04:14 Glucose (Glucose Chew Tab) 4-8 Tablets 4 Tabl... UD PRN PO 07/06/17 04:15 08/05/17 04:14 Dextrose (Dextrose 50% 50ML Syringe) 25-50ML OF 50% DW IV FOR... UD PRN IV 07/06/17 04:15 08/05/17 04:14 07/06/17 05:40 25 ML Glucagon (Glucagon Inj) 1 mg UD PRN SQ 07/06/17 04:15 08/05/17 04:14 Heparin Sodium (Porcine) (Heparin 100 Unit/ml 5ml Flush) 5 ml PRN PRN IV 07/07/17 02:45 08/06/17 02:44 Future hold 07/26/17 01:15 5 ML Ondansetron HCl (Zofran Inj) 4 mg Q4H PRN IV 07/11/17 03:00 08/10/17 02:59 07/17/17 21:50 4 MG Prochlorperazine Edisylate 5 mg/ Syringe 5 ml @ 5 mls/min Q4H PRN IV 07/11/17 14:00 08/10/17 13:59 Lactulose (Chronulac Syrup) 30 gm Q4H PRN PO 07/11/17 16:45 08/10/17 16:44 Miscellaneous (Fentanyl Patch Remove & Waste) 1 ea Q3D@0859 N/A 07/22/17 08:59 08/21/17 08:58 07/28/17 09:18 1 EA Fentanyl (Duragesic Patch) 25 mcg Q3D@0900 TD 07/22/17 09:00 08/05/17 08:59 07/28/17 09:01 25 MCG Insulin Glargine (Lantus Solostar Pen) 6 units HS SC 07/20/17 21:00 08/19/17 20:59 07/27/17 20:11 6 UNITS Ergocalciferol (Vitamin D Cap) 50,000 interunit Q7D@0900 PO 07/20/17 09:00 08/19/17 08:59 07/20/17 09:32 50,000 INTERUNIT Vancomycin HCl (Consult) 1 ea UD PRN N/A 07/21/17 16:00 08/20/17 15:59 Miscellaneous Information (Pharmacy Tpn/ Ppn Consult Active) 1 ea UD PRN N/A 07/21/17 17:00 08/20/17 16:59 Hydralazine HCl (HydrALAZINE INJ) 5 mg Q4 PRN IV. 07/21/17 17:15 08/20/17 17:14 07/25/17 23:45 5 MG Furosemide 20 mg/ Syringe 2 ml @ 4 mls/min QAM IV 07/22/17 09:00 08/21/17 08:59 07/28/17 09:01 4 MLS/MIN Hydralazine HCl (HydrALAZINE INJ) 5 mg TID IV. 07/21/17 21:00 08/20/17 20:59 07/28/17 09:19 5 MG Methylprednisolone Sodium Succinate 40 mg/Syringe 0.64 ml @ 1.5 mls/min DAILY IV 07/22/17 09:00 08/21/17 08:59 07/28/17 09:00 1.5 MLS/MIN Fentanyl Citrate (Fentanyl Inj) Fentanyl 25-50 mcg... Q4H PRN IV 07/21/17 20:45 08/04/17 20:44 07/24/17 05:47 50 MCG Metoprolol Tartrate (Lopressor Iv) 5 mg Q6 IV. 07/22/17 12:00 08/20/17 17:59 07/28/17 06:42 5 MG Dextrose 1,000 ml @ 0 mls/hr Q0M PRN IV 07/22/17 16:00 08/21/17 15:59 Cefepime HCl (Consult) 1 ea UD PRN N/A 07/22/17 11:30 08/21/17 11:29 Cefepime HCl 500 mg/Syringe 5.5 ml @ 5.5 mls/min DAILY@1600 IV 07/23/17 16:00 08/02/17 15:59 07/27/17 16:13 5.5 MLS/MIN Miscellaneous Information (Consult Glycemic Management Pharmacy) 1 ea UD PRN N/A 07/23/17 13:14 08/22/17 13:13 Morphine Sulfate (MoRPHine SULFATE INJ) 2 mg Q3RWA PRN IV 07/24/17 11:30 08/07/17 11:29 07/27/17 12:59 2 MG Non-Formulary Medication (Patient'S Own Controlled Med) 1 ea BID PEG 07/25/17 09:00 08/08/17 08:59 07/28/17 09:16 1 EA Methadone HCl (Methadone HCl) 20 mg BID GT 07/25/17 09:00 08/08/17 08:59 07/28/17 09:16 20 MG Heparin Sodium/ Dextrose 500 ml @ 13 mls/hr Q24H PRN IV 07/26/17 12:15 08/25/17 12:14 07/28/17 00:40 13 MLS/HR Metronidazole 500 mg/Prmx 100 ml @ 100 mls/hr Q8H IV 07/26/17 15:00 08/05/17 14:59 07/28/17 09:00 100 MLS/HR Caspofungin 50 mg/ Sodium Chloride 260 ml @ 250 mls/hr Q24H IV 07/28/17 12:00 08/06/17 11:59 Insulin Aspart (novoLOG ASPART) SLIDING SCALE G... ACHS SC 07/27/17 11:30 08/26/17 11:29 07/28/17 09:11 7 UNITS Nutrition (Parenteral) 0 ml @ 0 mls/hr TODAY@1600 IV 07/27/17 16:00 07/28/17 15:59 07/27/17 16:14 0 MLS/HR Epoetin Mohsen 4000 units/Syringe 0.2 ml @ 1 mls/min TODAY@0800 IV. 07/28/17 08:00 07/28/17 18:00 Impression (1) Cellulitis of left hand (2) ESRD (end stage renal disease) on dialysis (3) Renal cell carcinoma (4) Anemia (5) Diabetes type 2, controlled Mr. Christy has ESRD and metastatic RCC. He underwent left nephrectomy in 2015. Patient did not tolerate Sutent due to high grade proteinuria; Opdivo caused arthralgia, colitis and possible pneumonitis. He was most recently treated w/ Cabometyx. This was complicated by abdominal wall hematoma a intestinal perforation. Mr. Christy was admitted with persistent soft tissue infection of the left hand. Patient tested positive for C. Difficile colitis. He has had a prolonged and complicated hospital course. On 07/21 Mr. Christy was diagnosed with intestinal perforation and required emergency laparotomy. 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 Partial colectomy w/ reanastomosis was completed Mr. Christy's dialysis has been complicated by prolonged bleeding from the AVF following treatment. 07/23 doppler study reveals high grade venous outflow stenosis. Fistulogram with coil embolization completed 07/25/16. AVF worked appropriately for dialysis on Monday. Mr. Christy developed acute hypoxic respiratory failure and respiratory distress requiring NIPPV. Heparin gtt started for suspected PE. Recommendations END STAGE RENAL DISEASE: -- HD today per F schedule -- UF ~2L as tolerated -- BP and volume status are currently appropriate -- Metabolic profile within normal limits ANEMIA: -- IDALIA w/ HD treatments HYPERTENSION: -- Blood pressure is currently well controlled. Continue current antihypertensive regimen. No change at present. RENAL CELL CA: -- Cabozantinib is on hold. Oncology is in agreement CKD-BMD: -- Calcitriol and CaCO3 on hold due to recent abdominal surgery ID: -- Medications appropriate for IHD
[2017-07-28 09:51] LABS: CREATININE 4.63 mg/dl (0.60-1.40); PHOSPHORUS 2.9 mg/dl (2.5-4.9); POTASSIUM 3.8 mmol/L (3.5-5.1)
[2017-07-28] MEDS: MoRPHine SULFATE 2 MG/ML CARP IV PRN ×2 (10:16→16:08)
--- NOTE | 2017-07-28 10:41 | Palliative Care Progress Note ---
Palliative Care Progress Note Date of Service Jul 28, 2017. Subjective Pt evaluation today including: conversation w/ patient, physical exam, chart review, lab review, review of inpatient medication list Pain: 4/10 abdominal pain. PO Intake: poor pt on BiPAP, sats 87 %, Pt off BiPAP for 30 min this am - sats 81%. Pt's pain is well controlled. He requested a prn morphine during exam - his last dose prior was 1 pm yesterday. Pt c/o abd pain - RUQ and along surgical incision, pain is constant with flares with movement. Relief with rest and IV morphine at 2 mg. Review of Systems Constitutional: + weakness, No fever Eyes: No worsening of vision ENT: No hearing loss Respiratory: + shortness of breath, + dyspnea at rest (when off BiPAP) Cardiac: + orthopnea, + edema Abdomen: + pain Neurologic: + weakness Psychiatric: + anxiety Endo: + fatigue Objective Vital Signs Date Time Temp Pulse Resp B/P (MAP) Pulse Ox O2 Delivery O2 Flow Rate FiO2 07/28/17 08:02 37.0 98 18 124/68 (86) 95 07/28/17 08:00 BiPAP 6.0 07/28/17 07:47 94 90 5.0 07/28/17 06:42 98 132/88 07/28/17 05:33 100 90 5.0 07/28/17 04:00 BiPAP 6.0 07/28/17 03:28 37.1 100 18 151/70 (97) 94 07/28/17 03:20 98 91 5.0 07/28/17 00:30 110 07/28/17 00:29 37.1 108 20 152/49 (83) 93 BiPAP 07/27/17 23:59 BiPAP 6.0 07/27/17 23:15 102 95 5.0 07/27/17 20:00 BiPAP 6.0 07/27/17 19:22 36.8 101 22 153/73 (99) 93 BiPAP 07/27/17 17:36 103 114/64 07/27/17 16:15 91 BiPAP 6.0 07/27/17 15:39 37.2 103 21 114/64 (81) 92 BiPAP 07/27/17 15:24 108 95 6.0 07/27/17 12:47 121 169/74 07/27/17 12:30 91 BiPAP 6.0 07/27/17 10:57 37.7 121 20 169/74 (105) 92 BiPAP Physical Exam General Appearance: no apparent distress Eyes: EOMI ENT: hearing grossly normal Neck: supple Respiratory/Chest: + decreased breath sounds, + pertinent finding (no rhonchi or rales) Cardiovascular: regular rate, rhythm, + tachycardia Abdomen: + abnormal bowel sounds, + pertinent finding (poor BS, no BM, + flatus ) Extremities: non-tender Neurologic/Psychiatric: alert Skin: warm/dry Laboratory Results Last 24 Hours Test 07/27/17 12:05 07/27/17 12:52 07/27/17 16:16 07/27/17 19:54 Bedside Glucose 128 mg/dl 158 mg/dl 205 mg/dl Activated Partial Thromboplast Time 50.8 SECONDS Partial Thromboplastin Ratio 2.0 Test 07/27/17 22:47 07/28/17 00:21 07/28/17 00:26 07/28/17 06:37 Activated Partial Thromboplast Time 148.7 SECONDS 94.1 SECONDS Partial Thromboplastin Ratio 5.7 3.6 Bedside Glucose 211 mg/dl 214 mg/dl Test 07/28/17 07:37 07/28/17 07:38 Activated Partial Thromboplast Time 64.5 SECONDS Partial Thromboplastin Ratio 2.5 White Blood Count 14.43 K/uL Red Blood Count 2.79 M/uL Hemoglobin 8.2 g/dL Hematocrit 25.1 % Mean Corpuscular Volume 90.0 fL Mean Corpuscular Hemoglobin 29.4 pg Mean Corpuscular Hemoglobin Concent 32.5 g/dl RDW Standard Deviation 65.2 fL RDW Coefficient of Variation 21.7 % Platelet Count 105 K/uL Nucleated RBC Absolute Count (auto) 0.53 K/uL Nucleated Red Blood Cells % 3.6 % Platelet Estimate DECREASED Arterial Blood pH 7.41 Arterial Blood Partial Pressure CO2 32 mmHg Arterial Blood Partial Pressure O2 53 mm/Hg Arterial Blood HCO3 20 mmol/L Arterial Blood Oxygen Saturation 85.3 % Arterial Blood Base Excess -4.1 mEq/L Arterial Blood Gas Delivery 5L Ezio Test POS Sodium Level 135 mmol/L Potassium Level 3.8 mmol/L Chloride Level 101 mmol/L Carbon Dioxide Level 21 mmol/L Anion Gap 13.0 mmol/L Blood Urea Nitrogen 129 mg/dl Creatinine 4.63 mg/dl Est Creatinine Clear Calc Drug Dose 16.9 ml/min Estimated GFR () 14.5 Estimated GFR (Non- 12.5 BUN/Creatinine Ratio 28.0 Random Glucose 200 mg/dl Calcium Level 7.0 mg/dl Phosphorus Level 2.9 mg/dl Magnesium Level 2.1 mg/dl Aspartate Amino Transf (AST/SGOT) 33 U/L Alanine Aminotransferase (ALT/SGPT) 32 U/L C-Reactive Protein 11.20 mg/dl Assessment and Plan (1) 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 now with Reflex Sympathetic Dystrophy (3) ESRD (end stage renal disease) on dialysis Status: Acute Assessment & Plan: Receiving HD (4) Hypoxemia requiring supplemental oxygen Status: Acute Assessment & Plan: Low sats even on BiPAP, will check sats after fluid removed via HD (5) High risk medication use Status: Acute Assessment & Plan: Doing well on current methadone, Caspofungin does not interfere with methadone metabolism - no adjustment needed Total time: 35 min with > 50% time spent reviewing pain regime on the unit and assessing pt Palliative Performance Scale: 30 % Continued [facility] stay due to: inadequate oral pain control, other (BiPAP requirement) Discharge planning: other (hope to be able to transfer to rehab when medically stable)
--- NOTE | 2017-07-28 11:37 | Pharmacy Progress Note ---
Pharmacy Glycemic Short Note 2 Date of Service Jul 28, 2017. Glycemic and parenteral nutrition consult: ASSESSMENT: 07/28/17 Mr. Christy is now POD #7 s/p ex lap with bowel resection, day #7 of TPN * Surgery has advanced diet yesterday- has taken [place] ice yesterday and tolerated liquid diet today * Regarding glycemic control: * Novolog left at [facility] with order placed for 0200 since on TPN. * Parameters tightened slightly to weight-based stress of 2. Carbohydrate ratio tightened past home dosing but this appropriate as the patient is on steroids here. * Dextrose remains the same in today's bag as yesterday. Continue the same insulin dosing. There was a documented treatment of low blood sugar by second shift nurse. This was when the patient was 67 mg/dL at noon... this may be that the 90 units became too aggressive with this amount of carbohydrates. With the patient starting to eat again, will continue the same insulin amount. * Regarding parenteral nutrition: * Macronutrients - AA and dextrose remain at goal, give fats since Monday * Micronutrients - most electrolytes within normal limits. Patient will receive dialysis today so continue same TPN as expect phosphorus and potassium to drop. PO intake will help to soften the fluctuations. 07/27/17 * Mr. Christy is now POD #6 s/p ex lap with bowel resection, day #6 of TPN * Surgery has advanced diet today but patient has not taken any po yet * BSGs are FINALLY improved with the significant increase in insulin in the TPN but the diet being advanced may cause BSGs to increase again. Although, I anticipate little po intake within the next 24 hours as he has been NPO for quite some time. * Regarding glycemic control: * Will change Novolog to [facility] and add back a carb ratio since patient will have po intake * Dextrose in TPN will be increased to goal so will increase insulin in TPN proportionately * Regarding parenteral nutrition: * Macronutrients - AA remain at goal, increase dextrose to goal since BSGs are improved and anticipate little po intake since diet just started, no fats for today * Micronutrients - K, Mg and Ca are either below goal or at lower end of range ; he received dialysis yesterday and does have some residual urine output; patient received 10 mEq of potassium IV and 1 gm of magesium IV this AM; will make minor adjustments to lytes in the bag; patient will not have dialysis today PLAN FOR INPATIENT GLYCEMIC CONTROL: * Continue Lantus 6 units qHS * Continue Novolog to ACHS * Continue goal 110-140 * Change CF to 15 * Change CR of 1 unit per 8 gm CHO consumed * Continue insulin in TPN of 110 units PLAN FOR PARENTERAL NUTRITION For day 6 of PN administration, the following will be ordered: Macronutrients Amino acids 125 grams/day Dextrose 250 grams/day Lipids 50 grams/day Micronutrients Sodium acetate 70 mEq Potassium chloride 20 mEq Calcium gluconate 4.5 mEq Magnesium chloride 4.06 mEq Sodium phosphate 18 mMol Multivitamins 10 mL Trace Elements 1 mL Regular insulin 110 units Total volume 1930 mL (minimum) to be infused over 24 hrs will provide 1850 kcal /day Labs, as indicated, will be ordered per protocol Pharmacy will continue to follow and adjust parenteral nutrition orders on a daily basis. Thank you for allowing us to participate in the care of this patient.
--- NOTE | 2017-07-28 11:51 | Pharmacy Progress Note ---
Pharmacy Abx Dose Short Note Date of Service Jul 28, 2017. Assessment & Plan Assessment 61 year old male receiving cefepime/ Flagyl for treatment of perforated gut, cefepime/Flagyl/vancomycin for hand cellulitis. Day # 16 of vancomycin, day #7 of cefepime, day #7 of Flagyl IV antimicrobial therapy. ESRD with hemodialysis- fistulogram of perm-cath on 07/25 (usual dialysis days [facility].) Hemodialysis today (mon). Unsure when next HD will be. Has some urine output. Plan Vancomycin * Random level on 07/27 of 19.2 is therapeutic. * Ordered vanco 750mg IV x 1 to be administered after HD today. * Goal trough level 15-20 mcg/mL * Random level will need ordered prior to next HD. Cefepime * Continue cefepime 500 mg IV q24h (after dialysi on dialysis days.) Pharmacy will continue to follow and will adjust dose/frequency as necessary. Thank you.
--- NOTE | 2017-07-28 12:02 | Surgery Progress Note ---
Surgery Progress Note Date of Service Jul 28, 2017. Subjective Post OP Day: POD # 7 s/p ex lap , small bowel resection with primary anastomosis Feeling "okay" today Breathing is better Abdominal pain currently 2-3/, controlled with pain medication Did well with clear liquids yesterday, no nausea or vomiting. Passing small amounts of gas, no bowel movement since Monday Objective Vital Signs: Date Time Temp Pulse Resp B/P (MAP) Pulse Ox O2 Delivery O2 Flow Rate FiO2 07/28/17 11:15 118 125/48 07/28/17 11:00 111 159/67 07/28/17 10:45 100 144/69 07/28/17 10:38 36.6 91 158/72 (100) 07/28/17 08:02 37.0 98 18 124/68 (86) 95 07/28/17 08:00 BiPAP 6.0 07/28/17 07:47 94 90 5.0 07/28/17 06:42 98 132/88 07/28/17 05:33 100 90 5.0 07/28/17 04:00 BiPAP 6.0 07/28/17 03:28 37.1 100 18 151/70 (97) 94 07/28/17 03:20 98 91 5.0 07/28/17 00:30 110 07/28/17 00:29 37.1 108 20 152/49 (83) 93 BiPAP 07/27/17 23:59 BiPAP 6.0 07/27/17 23:15 102 95 5.0 07/27/17 20:00 BiPAP 6.0 07/27/17 19:22 36.8 101 22 153/73 (99) 93 BiPAP 07/27/17 17:36 103 114/64 07/27/17 16:15 91 BiPAP 6.0 07/27/17 15:39 37.2 103 21 114/64 (81) 92 BiPAP 07/27/17 15:24 108 95 6.0 07/27/17 12:47 121 169/74 07/27/17 12:30 91 BiPAP 6.0 General Appearance: no apparent distress (has BIPAP currently on, breathing improved today) Head: normocephalic, atraumatic Neck: trachea midline Respiratory/Chest: no respiratory distress, no accessory muscle use Abdomen: soft, no organomegaly, no pulsatile mass, + distended (mild distention ), + tenderness (at incision site and LUQ) Incision(s): clean, dry, intact, no erythema, no drainage, findings (mario present and intact) Laboratory Results: Results Past 24 Hours Test 07/27/17 12:05 07/27/17 12:52 07/27/17 16:16 07/27/17 19:54 Range/Units Bedside Glucose 128 158 205 70-99 mg/dl Activated Partial Thromboplast Time 50.8 21.0-31.0 SECONDS Partial Thromboplastin Ratio 2.0 Test 07/27/17 22:47 07/28/17 00:21 07/28/17 00:26 07/28/17 06:37 Range/Units Activated Partial Thromboplast Time 148.7 94.1 21.0-31.0 SECONDS Partial Thromboplastin Ratio 5.7 3.6 Bedside Glucose 211 214 70-99 mg/dl Test 07/28/17 07:37 07/28/17 07:38 07/28/17 11:16 Range/Units Activated Partial Thromboplast Time 64.5 21.0-31.0 SECONDS Partial Thromboplastin Ratio 2.5 White Blood Count 14.43 4.8-10.8 K/uL Red Blood Count 2.79 4.7-6.1 M/uL Hemoglobin 8.2 14.0-18.0 g/dL Hematocrit 25.1 42-52 % Mean Corpuscular Volume 90.0 80-100 fL Mean Corpuscular Hemoglobin 29.4 25-34 pg Mean Corpuscular Hemoglobin Concent 32.5 32-36 g/dl RDW Standard Deviation 65.2 36.4-46.3 fL RDW Coefficient of Variation 21.7 11.5-14.5 % Platelet Count 105 130-400 K/uL Nucleated RBC Absolute Count (auto) 0.53 0-0 K/uL Nucleated Red Blood Cells % 3.6 % Platelet Estimate DECREASED Arterial Blood pH 7.41 7.35-7.45 Arterial Blood Partial Pressure CO2 32 35-46 mmHg Arterial Blood Partial Pressure O2 53 80-95 mm/Hg Arterial Blood HCO3 20 19-24 mmol/L Arterial Blood Oxygen Saturation 85.3 90-95 % Arterial Blood Base Excess -4.1 -9-1.8 mEq/L Arterial Blood Gas Delivery 5L Ezio Test POS POS Sodium Level 135 136-145 mmol/L Potassium Level 3.8 3.5-5.1 mmol/L Chloride Level 101 98-107 mmol/L Carbon Dioxide Level 21 21-32 mmol/L Anion Gap 13.0 3-11 mmol/L Blood Urea Nitrogen 129 7-18 mg/dl Creatinine 4.63 0.60-1.40 mg/dl Est Creatinine Clear Calc Drug Dose 16.9 ml/min Estimated GFR () 14.5 Estimated GFR (Non- 12.5 BUN/Creatinine Ratio 28.0 10-20 Random Glucose 200 70-99 mg/dl Calcium Level 7.0 8.5-10.1 mg/dl Phosphorus Level 2.9 2.5-4.9 mg/dl Magnesium Level 2.1 1.8-2.4 mg/dl Aspartate Amino Transf (AST/SGOT) 33 15-37 U/L Alanine Aminotransferase (ALT/SGPT) 32 12-78 U/L C-Reactive Protein 11.20 0-0.29 mg/dl Bedside Glucose 183 70-99 mg/dl Assessment & Plan POD # 7 s/p exploratory laparotomy, small bowel resection with primary anastomosis -vitals show tachycardia, afebrile overnight,oxygenation improved while on BIPAP - abdomen soft, mildly distended, tender at incision site, no incision site infection - Leukocytosis stable at 14K today - Peritoneal culture positive for Cecilia, started on Caspofungin IV daily yesterday - tolerated clear liquids, passing flatus Plan: Continue current pain management with Methadone and IV Morphine as needed Continue cardiac monitoring Continue BIPAP, Continue pulmonary recs Continue clear liquids May start oral medications specifically PO Vancomycin per Infectious disease Continue hemodialysis and Nephrology recs Continue IV antibiotics Continue TPN daily dressing changes of midline incision, will need mario removed 10-14 days post op Continue current medical management Continue IV Heparin drip for presumed PE, SCDs If possible OOB to chair PT/OT consults repeat am labs [facility] [place] surgeons to cover this weekend Dr. Siddiqui has seen and examined patient, agrees with above.
[2017-07-28] MEDS: CASPOFUNGIN INJ 50 MG in SODIUM CHLORIDE 0.9% 250ML 250 ML IV SCH (12:33)
[2017-07-28] MEDS: CEFEPIME IV 500 MG in SYRINGE 0 ML IV SCH (15:43)
[2017-07-28] MEDS ORDERED: VANCOMYCIN INJ 750 MG in SODIUM CHLORIDE 0.9% 250ML 250 ML IV ONE (16:00)
[2017-07-28] MEDS ORDERED: CUSTOM CENTRAL PN 1 BAG IV SCH (16:00)
--- NOTE | 2017-07-28 16:18 | Pulmonology Progress Note ---
Pulmonary Progress Note Date of Service Jul 28, 2017. Attending Dr. Clark Subjective Patient seen and examined today. Sitting up in bed. He states that his regular diet better today. He is less short of breath, but however still quite hypoxic. He was able to tolerate liquid diet this morning. I increased his FiO2 needs it from 5 L to 8 L because he was saturating about 84 % on BiPAP. This improved his O2 sats to about 92%He is about to undergo dialysis. Objective Vital signs reviewed. Tm 37.1, BP 73/40-159/67, P 91-126, RR 16-20, SaO2 90-97 % on BiPAP14/8 with RR 12 bpm, FiO2 6-8 L/m His curative balance is about 1.1 L negative General: Patient is awake, alert, cooperative, and in no acute distress. On BIPAP. Head: Normocephalic, Atraumatic. ENT: PERRLA, No discharge, EOMI, Sclera normal Neck: Normal ROM. Trachea midline. No stridor, left IJ shiley Respiratory/Chest: Mild decrease in breath sounds b/l. No respiratory distress. No accessory muscle use. Left tunneled catheter in place. Cardiovascular: Regular rate and rhythm. No murmur appreciate. Normal S1/S2. Abdomen: Mild tenderness to palpation. Normal bowel sounds hear throughout. No guarding. Back: Normal inspection. Extremities: Normal ROM, trace edema bilaterally in upper and lower extremities , no cyanosis. Ecchymosis of RUE Neuro: Alert, Oriented x 3. CN II-XII grossly intact. Sensation and motor function grossly intact. Psych: Mood and affect are flat Labs reviewed. White blood cell count 14, hemoglobin 8.2, platelet count 105 BUN 129, creatinine 4.6., CRP 11.2 ABG 7.41/.3% on 5 L BiPAP 14/8. Gram stain peritoneal fluid 07/21/2017--dc glabrata C. difficile toxin PCR 07/12/2017-positive for c.diff toxin B Imaging reviewed. Medications reviewed. Assessment & Plan Acute Hypoxic Respiratory Failure Right sided pleural effusion versus rounded atelectasis Bilateral lung opacities Renal Cell Carcinoma CKD on hemodialysis Possible Cryptogenic Organizing Pneumonia Fungal peritonitis Ruptured viscous s/p bowel resection Rectal sheath hematoma C. difficile infection Patient has had a complicated course. He is still in acute hypoxic respiratory failure that is multifactorial in nature. Now complicated by possible pulmonary emboli for which he receiving empiric treatment with heparin gtt.ABG still showing hypoxemia. He was able to tolerate diet on nasal cannula however. Recommendations Continue with BIPAP and increased FiO2 this morning. Taper as tolerated. He does appear more comfortable at this time on BIPAP. Continue the high flow nasal cannula for a break from BiPAP intermittently. Will order repeat chest x-ray for the a.m. to assess for any interval changes. Continue with antibiotics per ID recommendations. He should likely be switched over to prednisone 60 mg with a slow taper over the next several weeks Continue with nebulizer prn. Continue dialysis and lasix per nephrology recommendations. Continue heparin drip for presumed PE. Continue with adequate pain control and incentive spirometry once patient able to taper off of BIPAP. Data Medications: Current Inpatient Medications Medications (Trade) Dose Ordered Sig/Edward Route Start Time Stop Time Status Last Admin Dose Admin Lactobacillus Acidophilus (Floranex Tab) 2 tab TID PO 07/06/17 09:00 08/05/17 08:59 07/28/17 14:00 2 TAB Lisinopril (Zestril Tab) 40 mg DAILY PO 07/06/17 09:00 08/05/17 08:59 07/28/17 09:19 40 MG Miscellaneous Information (Check Fentanyl Patch Placement) 1 ea QS N/A 07/06/17 08:00 08/05/17 07:59 07/28/17 08:00 1 EA Glucose (Glucose 40% Gel) 15-30 GRAMS 15 GRAMS... UD PRN PO 07/06/17 04:15 08/05/17 04:14 Glucose (Glucose Chew Tab) 4-8 Tablets 4 Tabl... UD PRN PO 07/06/17 04:15 08/05/17 04:14 Dextrose (Dextrose 50% 50ML Syringe) 25-50ML OF 50% DW IV FOR... UD PRN IV 07/06/17 04:15 08/05/17 04:14 07/06/17 05:40 25 ML Glucagon (Glucagon Inj) 1 mg UD PRN SQ 07/06/17 04:15 08/05/17 04:14 Heparin Sodium (Porcine) (Heparin 100 Unit/ml 5ml Flush) 5 ml PRN PRN IV 07/07/17 02:45 08/06/17 02:44 Future hold 07/26/17 01:15 5 ML Ondansetron HCl (Zofran Inj) 4 mg Q4H PRN IV 07/11/17 03:00 08/10/17 02:59 07/17/17 21:50 4 MG Prochlorperazine Edisylate 5 mg/ Syringe 5 ml @ 5 mls/min Q4H PRN IV 07/11/17 14:00 08/10/17 13:59 Lactulose (Chronulac Syrup) 30 gm Q4H PRN PO 07/11/17 16:45 08/10/17 16:44 Miscellaneous (Fentanyl Patch Remove & Waste) 1 ea Q3D@0859 N/A 07/22/17 08:59 08/21/17 08:58 07/28/17 09:18 1 EA Fentanyl (Duragesic Patch) 25 mcg Q3D@0900 TD 07/22/17 09:00 08/05/17 08:59 07/28/17 09:01 25 MCG Insulin Glargine (Lantus Solostar Pen) 6 units HS SC 07/20/17 21:00 08/19/17 20:59 07/27/17 20:11 6 UNITS Ergocalciferol (Vitamin D Cap) 50,000 interunit Q7D@0900 PO 07/20/17 09:00 08/19/17 08:59 07/20/17 09:32 50,000 INTERUNIT Vancomycin HCl (Consult) 1 ea UD PRN N/A 07/21/17 16:00 08/20/17 15:59 Miscellaneous Information (Pharmacy Tpn/ Ppn Consult Active) 1 ea UD PRN N/A 07/21/17 17:00 08/20/17 16:59 Hydralazine HCl (HydrALAZINE INJ) 5 mg Q4 PRN IV. 07/21/17 17:15 08/20/17 17:14 07/25/17 23:45 5 MG Furosemide 20 mg/ Syringe 2 ml @ 4 mls/min QAM IV 07/22/17 09:00 08/21/17 08:59 07/28/17 09:01 4 MLS/MIN Hydralazine HCl (HydrALAZINE INJ) 5 mg TID IV. 07/21/17 21:00 08/20/17 20:59 07/28/17 14:00 5 MG Methylprednisolone Sodium Succinate 40 mg/Syringe 0.64 ml @ 1.5 mls/min DAILY IV 07/22/17 09:00 08/21/17 08:59 07/28/17 09:00 1.5 MLS/MIN Fentanyl Citrate (Fentanyl Inj) Fentanyl 25-50 mcg... Q4H PRN IV 07/21/17 20:45 08/04/17 20:44 07/24/17 05:47 50 MCG Metoprolol Tartrate (Lopressor Iv) 5 mg Q6 IV. 07/22/17 12:00 08/20/17 17:59 07/28/17 12:33 5 MG Dextrose 1,000 ml @ 0 mls/hr Q0M PRN IV 07/22/17 16:00 08/21/17 15:59 Cefepime HCl (Consult) 1 [facility] PRN N/A 07/22/17 11:30 08/21/17 11:29 Cefepime HCl 500 mg/Syringe 5.5 ml @ 5.5 mls/min DAILY@1600 IV 07/23/17 16:00 08/02/17 15:59 07/27/17 16:13 5.5 MLS/MIN Miscellaneous Information (Consult Glycemic Management Pharmacy) 1 [facility] PRN N/A 07/23/17 13:14 08/22/17 13:13 Morphine Sulfate (MoRPHine SULFATE INJ) 2 mg Q3RWA PRN IV 07/24/17 11:30 08/07/17 11:29 07/28/17 10:16 2 MG Heparin Sodium/ Dextrose 500 ml @ 13 mls/hr Q24H PRN IV 07/26/17 12:15 08/25/17 12:14 07/28/17 00:40 13 MLS/HR Metronidazole 500 mg/Prmx 100 ml @ 100 mls/hr Q8H IV 07/26/17 15:00 08/05/17 14:59 07/28/17 15:42 100 MLS/HR Caspofungin 50 mg/ Sodium Chloride 260 ml @ 250 mls/hr Q24H IV 07/28/17 12:00 08/06/17 11:59 07/28/17 12:33 250 MLS/HR Insulin Aspart (novoLOG ASPART) SLIDING SCALE G... ACHS SC 07/27/17 11:30 08/26/17 11:29 07/28/17 12:37 3 UNITS Epoetin Mohsen 4000 units/Syringe 0.2 ml @ 1 mls/min TODAY@0800 IV. 07/28/17 08:00 07/28/17 18:00 07/28/17 12:46 1 MLS/MIN Nutrition (Parenteral) 0 ml @ 0 mls/hr TODAY@1600 IV 07/28/17 16:00 07/29/17 15:59 Insulin Aspart (novoLOG ASPART) SLIDING SCALE G... TODAY@0200 SC 07/29/17 02:00 07/29/17 02:01 Methadone HCl (Dolophine Tab) 20 mg BID PO 07/28/17 21:00 08/08/17 08:59 Vancomycin HCl 750 mg/Sodium Chloride 265 ml @ 125 mls/hr TODAY@1600 ONCE IV 07/28/17 16:00 07/28/17 18:07 I & O: 24-Hour Column 07/29/17 08:00 Intake Total 1300 ml Output Total 550 ml Balance 750 ml Vital Signs: Date Time Temp Pulse Resp B/P (MAP) Pulse Ox O2 Delivery O2 Flow Rate FiO2 07/28/17 15:53 36.9 92 18 120/64 (82) 97 07/28/17 13:20 36.6 106 126/56 (79) 07/28/17 13:00 104 78/36 07/28/17 12:45 111 73/40 07/28/17 12:33 96 102/61 07/28/17 12:30 120 111/39 07/28/17 12:26 37.0 102 16 118/64 (82) 96 96 07/28/17 12:15 120 121/53 07/28/17 12:00 126 91/44 07/28/17 12:00 BiPAP 6.0 07/28/17 11:45 126 91/44 07/28/17 11:30 122 104/53 07/28/17 11:15 118 125/48 07/28/17 11:00 111 159/67 07/28/17 10:45 100 144/69 07/28/17 10:38 36.6 91 158/72 (100) 07/28/17 08:02 37.0 98 18 124/68 (86) 95 07/28/17 08:00 BiPAP 6.0 07/28/17 07:47 94 90 5.0 07/28/17 06:42 98 132/88 07/28/17 05:33 100 90 5.0 07/28/17 04:00 BiPAP 6.0 07/28/17 03:28 37.1 100 18 151/70 (97) 94 07/28/17 03:20 98 91 5.0 07/28/17 00:30 110 07/28/17 00:29 37.1 108 20 152/49 (83) 93 BiPAP 07/27/17 23:59 BiPAP 6.0 07/27/17 23:15 102 95 5.0 07/27/17 20:00 BiPAP 6.0 07/27/17 19:22 36.8 101 22 153/73 (99) 93 BiPAP 07/27/17 17:36 103 114/64 07/27/17 16:15 91 BiPAP 6.0 Laboratory Results: Last 24 Hours Test 07/27/17 16:16 07/27/17 19:54 07/27/17 22:47 07/28/17 00:21 Bedside Glucose 158 mg/dl 205 mg/dl Activated Partial Thromboplast Time 148.7 SECONDS 94.1 SECONDS Partial Thromboplastin Ratio 5.7 3.6 Test 07/28/17 00:26 07/28/17 06:37 07/28/17 07:37 07/28/17 07:38 Bedside Glucose 211 mg/dl 214 mg/dl Activated Partial Thromboplast Time 64.5 SECONDS Partial Thromboplastin Ratio 2.5 White Blood Count 14.43 K/uL Red Blood Count 2.79 M/uL Hemoglobin 8.2 g/dL Hematocrit 25.1 % Mean Corpuscular Volume 90.0 fL Mean Corpuscular Hemoglobin 29.4 pg Mean Corpuscular Hemoglobin Concent 32.5 g/dl RDW Standard Deviation 65.2 fL RDW Coefficient of Variation 21.7 % Platelet Count 105 K/uL Nucleated RBC Absolute Count (auto) 0.53 K/uL Nucleated Red Blood Cells % 3.6 % Platelet Estimate DECREASED Arterial Blood pH 7.41 Arterial Blood Partial Pressure CO2 32 mmHg Arterial Blood Partial Pressure O2 53 mm/Hg Arterial Blood HCO3 20 mmol/L Arterial Blood Oxygen Saturation 85.3 % Arterial Blood Base Excess -4.1 mEq/L Arterial Blood Gas Delivery 5L Ezio Test POS Sodium Level 135 mmol/L Potassium Level 3.8 mmol/L Chloride Level 101 mmol/L Carbon Dioxide Level 21 mmol/L Anion Gap 13.0 mmol/L Blood Urea Nitrogen 129 mg/dl Creatinine 4.63 mg/dl Est Creatinine Clear Calc Drug Dose 16.9 ml/min Estimated GFR () 14.5 Estimated GFR (Non- 12.5 BUN/Creatinine Ratio 28.0 Random Glucose 200 mg/dl Calcium Level 7.0 mg/dl Phosphorus Level 2.9 mg/dl Magnesium Level 2.1 mg/dl Aspartate Amino Transf (AST/SGOT) 33 U/L Alanine Aminotransferase (ALT/SGPT) 32 U/L C-Reactive Protein 11.20 mg/dl Test 07/28/17 11:16 Bedside Glucose 183 mg/dl
--- NOTE | 2017-07-28 17:18 | Infectious Disease Progress Nt ---
Progress Note Date of Service Jul 28, 2017. Subjective Pt evaluation today including: conversation w/ patient, physical exam, chart review, lab review, review of studies, conversation w/ hadoop consultant, review of inpatient medication list Patient appears more comfortable today. Pain controlled. No worsening shortness of breath. Appears to be tolerating antibiotics without apparent difficulty All Other Systems: Reviewed and Negative Medications Current Inpatient Medications Medications (Trade) Dose Ordered Sig/Edward Route Start Time Stop Time Status Last Admin Dose Admin Lactobacillus Acidophilus (Floranex Tab) 2 tab TID PO 07/06/17 09:00 08/05/17 08:59 07/28/17 14:00 2 TAB Lisinopril (Zestril Tab) 40 mg DAILY PO 07/06/17 09:00 08/05/17 08:59 07/28/17 09:19 40 MG Miscellaneous Information (Check Fentanyl Patch Placement) 1 ea QS N/A 07/06/17 08:00 08/05/17 07:59 07/28/17 08:00 1 EA Glucose (Glucose 40% Gel) 15-30 GRAMS 15 GRAMS... UD PRN PO 07/06/17 04:15 08/05/17 04:14 Glucose (Glucose Chew Tab) 4-8 Tablets 4 Tabl... UD PRN PO 07/06/17 04:15 08/05/17 04:14 Dextrose (Dextrose 50% 50ML Syringe) 25-50ML OF 50% DW IV FOR... UD PRN IV 07/06/17 04:15 08/05/17 04:14 07/06/17 05:40 25 ML Glucagon (Glucagon Inj) 1 mg UD PRN SQ 07/06/17 04:15 08/05/17 04:14 Heparin Sodium (Porcine) (Heparin 100 Unit/ml 5ml Flush) 5 ml PRN PRN IV 07/07/17 02:45 08/06/17 02:44 Future hold 07/26/17 01:15 5 ML Ondansetron HCl (Zofran Inj) 4 mg Q4H PRN IV 07/11/17 03:00 08/10/17 02:59 07/17/17 21:50 4 MG Prochlorperazine Edisylate 5 mg/ Syringe 5 ml @ 5 mls/min Q4H PRN IV 07/11/17 14:00 08/10/17 13:59 Lactulose (Chronulac Syrup) 30 gm Q4H PRN PO 07/11/17 16:45 08/10/17 16:44 Miscellaneous (Fentanyl Patch Remove & Waste) 1 ea Q3D@0859 N/A 07/22/17 08:59 08/21/17 08:58 07/28/17 09:18 1 EA Fentanyl (Duragesic Patch) 25 mcg Q3D@0900 TD 07/22/17 09:00 08/05/17 08:59 07/28/17 09:01 25 MCG Insulin Glargine (Lantus Solostar Pen) 6 units HS SC 07/20/17 21:00 08/19/17 20:59 07/27/17 20:11 6 UNITS Ergocalciferol (Vitamin D Cap) 50,000 interunit Q7D@0900 PO 07/20/17 09:00 08/19/17 08:59 07/20/17 09:32 50,000 INTERUNIT Vancomycin HCl (Consult) 1 ea UD PRN N/A 07/21/17 16:00 08/20/17 15:59 Miscellaneous Information (Pharmacy Tpn/ Ppn Consult Active) 1 ea UD PRN N/A 07/21/17 17:00 08/20/17 16:59 Hydralazine HCl (HydrALAZINE INJ) 5 mg Q4 PRN IV. 07/21/17 17:15 08/20/17 17:14 07/25/17 23:45 5 MG Furosemide 20 mg/ Syringe 2 ml @ 4 mls/min QAM IV 07/22/17 09:00 08/21/17 08:59 07/28/17 09:01 4 MLS/MIN Hydralazine HCl (HydrALAZINE INJ) 5 mg TID IV. 07/21/17 21:00 08/20/17 20:59 07/28/17 14:00 5 MG Methylprednisolone Sodium Succinate 40 mg/Syringe 0.64 ml @ 1.5 mls/min DAILY IV 07/22/17 09:00 08/21/17 08:59 07/28/17 09:00 1.5 MLS/MIN Fentanyl Citrate (Fentanyl Inj) Fentanyl 25-50 mcg... Q4H PRN IV 07/21/17 20:45 08/04/17 20:44 07/24/17 05:47 50 MCG Metoprolol Tartrate (Lopressor Iv) 5 mg Q6 IV. 07/22/17 12:00 08/20/17 17:59 07/28/17 12:33 5 MG Dextrose 1,000 ml @ 0 mls/hr Q0M PRN IV 07/22/17 16:00 08/21/17 15:59 Cefepime HCl (Consult) 1 ea UD PRN N/A 07/22/17 11:30 08/21/17 11:29 Cefepime HCl 500 mg/Syringe 5.5 ml @ 5.5 mls/min DAILY@1600 IV 07/23/17 16:00 08/02/17 15:59 07/27/17 16:13 5.5 MLS/MIN Miscellaneous Information (Consult Glycemic Management Pharmacy) 1 ea UD PRN N/A 07/23/17 13:14 08/22/17 13:13 Morphine Sulfate (MoRPHine SULFATE INJ) 2 mg Q3RWA PRN IV 07/24/17 11:30 08/07/17 11:29 07/28/17 10:16 2 MG Heparin Sodium/ Dextrose 500 ml @ 13 mls/hr Q24H PRN IV 07/26/17 12:15 08/25/17 12:14 07/28/17 00:40 13 MLS/HR Metronidazole 500 mg/Prmx 100 ml @ 100 mls/hr Q8H IV 07/26/17 15:00 08/05/17 14:59 07/28/17 15:42 100 MLS/HR Caspofungin 50 mg/ Sodium Chloride 260 ml @ 250 mls/hr Q24H IV 07/28/17 12:00 08/06/17 11:59 07/28/17 12:33 250 MLS/HR Insulin Aspart (novoLOG ASPART) SLIDING SCALE G... ACHS SC 07/27/17 11:30 08/26/17 11:29 07/28/17 12:37 3 UNITS Epoetin Mohsen 4000 units/Syringe 0.2 ml @ 1 mls/min TODAY@0800 IV. 07/28/17 08:00 07/28/17 18:00 07/28/17 12:46 1 MLS/MIN Nutrition (Parenteral) 0 ml @ 0 mls/hr TODAY@1600 IV 07/28/17 16:00 07/29/17 15:59 Insulin Aspart (novoLOG ASPART) SLIDING SCALE G... TODAY@0200 SC 07/29/17 02:00 07/29/17 02:01 Methadone HCl (Dolophine Tab) 20 mg BID PO 07/28/17 21:00 08/08/17 08:59 Vancomycin HCl 750 mg/Sodium Chloride 265 ml @ 125 mls/hr TODAY@1600 ONCE IV 07/28/17 16:00 07/28/17 18:07 Objective Vital Signs Date Time Temp Pulse Resp B/P (MAP) Pulse Ox O2 Delivery O2 Flow Rate FiO2 07/28/17 15:53 36.9 92 18 120/64 (82) 97 07/28/17 13:20 36.6 106 126/56 (79) 07/28/17 13:00 104 78/36 07/28/17 12:45 111 73/40 07/28/17 12:33 96 102/61 07/28/17 12:30 120 111/39 07/28/17 12:26 37.0 102 16 118/64 (82) 96 96 07/28/17 12:15 120 121/53 07/28/17 12:00 126 91/44 07/28/17 12:00 BiPAP 6.0 07/28/17 11:45 126 91/44 07/28/17 11:30 122 104/53 07/28/17 11:15 118 125/48 07/28/17 11:00 111 159/67 07/28/17 10:45 100 144/69 07/28/17 10:38 36.6 91 158/72 (100) 07/28/17 08:02 37.0 98 18 124/68 (86) 95 07/28/17 08:00 BiPAP 6.0 07/28/17 07:47 94 90 5.0 07/28/17 06:42 98 132/88 07/28/17 05:33 100 90 5.0 07/28/17 04:00 BiPAP 6.0 07/28/17 03:28 37.1 100 18 151/70 (97) 94 07/28/17 03:20 98 91 5.0 07/28/17 00:30 110 07/28/17 00:29 37.1 108 20 152/49 (83) 93 BiPAP 07/27/17 23:59 BiPAP 6.0 07/27/17 23:15 102 95 5.0 07/27/17 20:00 BiPAP 6.0 07/27/17 19:22 36.8 101 22 153/73 (99) 93 BiPAP 07/27/17 17:36 103 114/64 Physical Exam General Appearance: WD/WN, no apparent distress Eyes: normal inspection, sclerae normal ENT: normal ENT inspection, pharynx normal Neck: supple, no adenopathy, trachea midline Respiratory/Chest: chest non-tender, no respiratory distress, no accessory muscle use, + rales Cardiovascular: regular rate, rhythm, no gallop, no murmur Abdomen: normal bowel sounds, no organomegaly, + distended, + tenderness Extremities: non-tender, no calf tenderness Neurologic/Psychiatric: alert, oriented x 3 Skin: normal color, no rash Lymphatic: no adenopathy Laboratory Results Last 24 Hours Test 07/27/17 19:54 07/27/17 22:47 07/28/17 00:21 07/28/17 00:26 Bedside Glucose 205 mg/dl 211 mg/dl Activated Partial Thromboplast Time 148.7 SECONDS 94.1 SECONDS Partial Thromboplastin Ratio 5.7 3.6 Test 07/28/17 06:37 07/28/17 07:37 07/28/17 07:38 07/28/17 11:16 Bedside Glucose 214 mg/dl 183 mg/dl Activated Partial Thromboplast Time 64.5 SECONDS Partial Thromboplastin Ratio 2.5 White Blood Count 14.43 K/uL Red Blood Count 2.79 M/uL Hemoglobin 8.2 g/dL Hematocrit 25.1 % Mean Corpuscular Volume 90.0 fL Mean Corpuscular Hemoglobin 29.4 pg Mean Corpuscular Hemoglobin Concent 32.5 g/dl RDW Standard Deviation 65.2 fL RDW Coefficient of Variation 21.7 % Platelet Count 105 K/uL Nucleated RBC Absolute Count (auto) 0.53 K/uL Nucleated Red Blood Cells % 3.6 % Platelet Estimate DECREASED Arterial Blood pH 7.41 Arterial Blood Partial Pressure CO2 32 mmHg Arterial Blood Partial Pressure O2 53 mm/Hg Arterial Blood HCO3 20 mmol/L Arterial Blood Oxygen Saturation 85.3 % Arterial Blood Base Excess -4.1 mEq/L Arterial Blood Gas Delivery 5L Ezio Test POS Sodium Level 135 mmol/L Potassium Level 3.8 mmol/L Chloride Level 101 mmol/L Carbon Dioxide Level 21 mmol/L Anion Gap 13.0 mmol/L Blood Urea Nitrogen 129 mg/dl Creatinine 4.63 mg/dl Est Creatinine Clear Calc Drug Dose 16.9 ml/min Estimated GFR () 14.5 Estimated GFR (Non- 12.5 BUN/Creatinine Ratio 28.0 Random Glucose 200 mg/dl Calcium Level 7.0 mg/dl Phosphorus Level 2.9 mg/dl Magnesium Level 2.1 mg/dl Aspartate Amino Transf (AST/SGOT) 33 U/L Alanine Aminotransferase (ALT/SGPT) 32 U/L C-Reactive Protein 11.20 mg/dl Test 07/28/17 16:33 Bedside Glucose 169 mg/dl Assessment and Plan 61-year-old male with left hand cellulitis, subsequent development of pneumonitis, C difficile infection, and then 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 OR cultures have grown Cecilia glabrata, and have added caspofungin as this species often fluconazole resistant. Continue current Rx for now.
--- NOTE | 2017-07-28 17:21 | DIAGNOSTIC IMAGING REPORT ---
CHEST ONE VIEW PORTABLE CLINICAL HISTORY: hypoxemia with pneumonia COMPARISON STUDY: 07/23/2017 FINDINGS: The cardiac and mediastinal contours remain stable. There is a right-sided A-Port catheter, and left internal jugular central venous catheter. The nasogastric tube has been removed. There is a persistent right pleural effusion with right lower lobe airspace opacities. There is a trace left pleural effusion. Also present are left lower lobe airspace opacities. The pulmonary vasculature appears less congested.[ IMPRESSION: 1. Improving pulmonary vascular congestion 2. Moderate right pleural effusion and trace left pleural effusion. Persistent bibasal airspace opacities 3. Interval removal of the nasogastric tube. Electronically signed by: Isael Aaron M.D. 07/28/2017 5:20 PM Dictated Date/Time: 07/28/2017 5:18 PM
--- NOTE | 2017-07-28 20:56 | Progress Note ---
Subjective Date of Service: Jul 28, 2017. Subjective Pt evaluation today including: conversation w/ patient, physical exam, chart review, lab review, review of studies, review of inpatient medication list No acute incidents overnight Resting comfortably in bed Pain controlled Problem List Medical Problems: (1) Acute dyspnea Status: Acute (2) Chronic kidney disease Status: Acute (3) Failure of outpatient treatment Status: Acute (4) Left arm cellulitis Status: Acute (5) Renal cell carcinoma Status: Acute Review of Systems Constitutional: + chills, No see HPI, No fever, No sweats, No weight loss, No weakness, No fatigue, No problem reported Respiratory: No see HPI, No cough, No sputum, No wheezing, No shortness of breath, No dyspnea on exertion, No dyspnea at rest, No hemoptysis, No problem reported Cardiac: No see HPI, No chest pain, No orthopnea, No PND, No edema, No claudication, No palpitations, No problem reported Abdomen: No see HPI, No pain, No nausea, No vomiting, No diarrhea, No constipation, No GI bleeding, No problem reported Musculoskeletal: No see HPI, No joint pain, No muscle pain, No swelling, No calf pain, No problem reported Male : No see HPI, No dysuria, No urinary frequency, No incontinence, No nocturia more than once/night, No slowing stream, No hematuria, No sexual dysfunction, No problem reported Neurologic: No see HPI, No memory loss, No paralysis, No weakness, No numbness/ tingling, No vertigo, No balance problems, No problem reported Psychiatric: No see HPI, No depression symptoms, No anhedonism, No anxiety, No insomnia, No substance abuse, No problem reported Skin: No see HPI, No rash, No itch, No new/changing skin lesions, No color change, No bleeding, No problem reported Objective Vital Signs Date Time Temp Pulse Resp B/P (MAP) Pulse Ox O2 Delivery O2 Flow Rate FiO2 07/28/17 17:53 92 120/64 07/28/17 16:00 BiPAP 8.0 07/28/17 15:53 36.9 92 18 120/64 (82) 97 07/28/17 13:20 36.6 106 126/56 (79) 07/28/17 13:00 104 78/36 07/28/17 12:45 111 73/40 07/28/17 12:33 96 102/61 07/28/17 12:30 120 111/39 07/28/17 12:26 37.0 102 16 118/64 (82) 96 96 07/28/17 12:15 120 121/53 07/28/17 12:00 126 91/44 07/28/17 12:00 BiPAP 6.0 07/28/17 11:45 126 91/44 07/28/17 11:30 122 104/53 07/28/17 11:15 118 125/48 07/28/17 11:00 111 159/67 07/28/17 10:45 100 144/69 07/28/17 10:38 36.6 91 158/72 (100) 07/28/17 08:02 37.0 98 18 124/68 (86) 95 07/28/17 08:00 BiPAP 6.0 07/28/17 07:47 94 90 5.0 07/28/17 06:42 98 132/88 07/28/17 05:33 100 90 5.0 07/28/17 04:00 BiPAP 6.0 07/28/17 03:28 37.1 100 18 151/70 (97) 94 07/28/17 03:20 98 91 5.0 07/28/17 00:30 110 07/28/17 00:29 37.1 108 20 152/49 (83) 93 BiPAP 07/27/17 23:59 BiPAP 6.0 07/27/17 23:15 102 95 5.0 Physical Exam General Appearance: WD/WN, no apparent distress Eyes: normal inspection, PERRL, EOMI, sclerae normal Neck: supple, no adenopathy, thyroid normal, no JVD Respiratory/Chest: chest non-tender, no accessory muscle use, + decreased breath sounds, + rales Cardiovascular: no edema, no gallop, no JVD, no murmur, + tachycardia Abdomen: normal bowel sounds, non tender, soft, no organomegaly Extremities: normal range of motion, non-tender, normal inspection, no pedal edema Neurologic/Psychiatric: no motor/sensory deficits, alert, normal mood/affect, oriented x 3 Skin: normal color, warm/dry, no rash Lymphatic: no adenopathy Laboratory Results Last 24 Hours Test 07/27/17 22:47 07/28/17 00:21 07/28/17 00:26 07/28/17 06:37 Activated Partial Thromboplast Time 148.7 SECONDS 94.1 SECONDS Partial Thromboplastin Ratio 5.7 3.6 Bedside Glucose 211 mg/dl 214 mg/dl Test 07/28/17 07:37 07/28/17 07:38 07/28/17 11:16 07/28/17 16:33 Activated Partial Thromboplast Time 64.5 SECONDS Partial Thromboplastin Ratio 2.5 White Blood Count 14.43 K/uL Red Blood Count 2.79 M/uL Hemoglobin 8.2 g/dL Hematocrit 25.1 % Mean Corpuscular Volume 90.0 fL Mean Corpuscular Hemoglobin 29.4 pg Mean Corpuscular Hemoglobin Concent 32.5 g/dl RDW Standard Deviation 65.2 fL RDW Coefficient of Variation 21.7 % Platelet Count 105 K/uL Nucleated RBC Absolute Count (auto) 0.53 K/uL Nucleated Red Blood Cells % 3.6 % Platelet Estimate DECREASED Arterial Blood pH 7.41 Arterial Blood Partial Pressure CO2 32 mmHg Arterial Blood Partial Pressure O2 53 mm/Hg Arterial Blood HCO3 20 mmol/L Arterial Blood Oxygen Saturation 85.3 % Arterial Blood Base Excess -4.1 mEq/L Arterial Blood Gas Delivery 5L Ezio Test POS Sodium Level 135 mmol/L Potassium Level 3.8 mmol/L Chloride Level 101 mmol/L Carbon Dioxide Level 21 mmol/L Anion Gap 13.0 mmol/L Blood Urea Nitrogen 129 mg/dl Creatinine 4.63 mg/dl Est Creatinine Clear Calc Drug Dose 16.9 ml/min Estimated GFR () 14.5 Estimated GFR (Non- 12.5 BUN/Creatinine Ratio 28.0 Random Glucose 200 mg/dl Calcium Level 7.0 mg/dl Phosphorus Level 2.9 mg/dl Magnesium Level 2.1 mg/dl Aspartate Amino Transf (AST/SGOT) 33 U/L Alanine Aminotransferase (ALT/SGPT) 32 U/L C-Reactive Protein 11.20 mg/dl Bedside Glucose 183 mg/dl 169 mg/dl Test 07/28/17 20:25 Bedside Glucose 207 mg/dl Assessment and Plan Mr. Crhisty is a 61 yo M with PMH of ESRD on HD, RCC, DMII. Admitted for L hand cellulitis having failed outpatient management. Abdominal pain, found to have incidental rectus sheath hematoma, C.diff positive colitis and subsequent bowel perforation on 07/21, now s/p colectomy, anemia, and bilateral pneumonia on imaging. Abdominal pain, c diff colitis, perforated jejunal bowel, s/p colectomy, rectus sheath hematoma: Diarrhea - C.Diff - remains afebrile - C.diff positive - unable to take oral vanc at this time, started on IV flagyl , IV vanc for other issue (hand cellulitis), and may receive some benefit. However, necessary to treat perforation at this time, dialysis will aid the anasarca, and hopefully resumption of oral vanc can be done once diet advanced - Adequate pain control with fentanyl patch 25-50 mcg q4h POD # 7 from small bowel resection due to jejunal diverticular perforation. - Pain controlled on methadone and morphine IV PRN - NGT removed 07/27/17, advanced to clears, advance as tolerated Metastatic Renal cell cancer - Cabozantinib held due to likely inciting his small intestinal inflammation/ perforation - On consulted and agree with recs at this time ESRD HD secondary to RCC/ s/p left nephrectomy - Nephrology Consulted - Receives HD on Tuesdays, and Saturdays - unable to receive dialysis yesterday due to technical problems, US doppler shows sign stenosis. - IJ placed 07/23 to initiate dialysis, Vascular surg consulted for AVF repair - hypocalcemia; Vit D level of 9.4, supplement with ergocalciferol [id number] indefinitely plus daily D3 2000 when patient resumes oral intake - Recheck levels in 12 weeks Left hand cellulitis - persists, stable - ID consulted. 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 - started on methadone, morphine PRN DMII - 7 units of Lantus with sliding scale - BSG AC HS Anemia - nephrology -> continue epogen 71483 units and venofer 100mg - continue to monitor HTN/hyperlipidemia - asa 81 mg DCd while NPO: if prolonged NPO, consider aspirin suppositories in 48 hours - furosemide 20 IV daily; check daily BMP and monitor status- - hydralazine 100 mg tid-->converted to 5 TID scheduled, hold sys <120 - amlodipine 10 mg daily--> converted to 5 hydralazine prn for systolic >180 - metoprolol 150 mg bid-->IV 2.5 q6 - lisinopril 40 mg daily held while pressures are assessed in ICU. - simvastatin 20 mg daily DCd while NPO - I&O and daily weights BPH - continue tamsulosin 0.4 mg (held while in NPO) ESRD Bone Mineral Disease - Continue oral Calcitriol - Continue CaCO3 500 mg with meals DVT Prophylaxis: SCDs Code: Full Continued [facility] stay due to: inadequate oral pain control, other (BiPAP requirement) Discharge planning: other (hope to be able to transfer to rehab when medically stable)
[2017-07-28] MEDS: METHADONE HCL 10 MG TAB PO SCH (22:08)
[2017-07-28] MEDS: INSULIN GLARGINE SOLOSTAR 100 UNITS/ML 3 ML PEN SC SCH (22:17)
[2017-07-29] VITALS (23 sets, daily range): BP systolic 126–152; BP diastolic 62–71; PULSE 96–118; TEMP 36.5–38.6; O2SAT 87–97
[2017-07-29] MEDS: CHECK FENTANYL PATCH PLACEMENT SCH ×4 (00:20→23:03)
[2017-07-29] MEDS: METOPROLOL TARTRATE 1 MG/ML VIAL IV. SCH ×3 (00:38→11:42)
[2017-07-29] MEDS ORDERED: INSULIN ASPART 100 UNITS/ML 3 ML PEN SC SCH (02:00)
[2017-07-29 06:12] LABS: CALCIUM 6.9 mg/dl (8.5-10.1); CREATININE 3.71 mg/dl (0.60-1.40); PHOSPHORUS 3.1 mg/dl (2.5-4.9); POTASSIUM 3.6 mmol/L (3.5-5.1)
[2017-07-29 06:15] LABS: PTT PATIENT 66.1 SECONDS (21.0-31.0)
[2017-07-29 06:17] LABS: HEMOGLOBIN 7.2 g/dL (14.0-18.0); MEAN CELL VOLUME 90.9 fL (80-100); MEAN CORPUSCULAR HEMOGLOBIN 29.8 pg (25-34); MEAN CORPUSCULAR HGB CONC 32.7 g/dl (32-36); NUCLEATED RED BLOOD CELL ABS 1.47 K/uL (0-0); PLATELET COUNT 119 K/uL (130-400); RED CELL DISTRIBUTION WIDTH CV 22.2 % (11.5-14.5); WHITE BLOOD COUNT 14.67 K/uL (4.8-10.8)
[2017-07-29] MEDS: METHYLPREDNISOLONE IV 40 MG in SYRINGE 0 ML IV SCH (08:09)
[2017-07-29] MEDS: METRONIDAZOLE 500MG / NSS IV SCH ×3 (08:09→23:03)
[2017-07-29] MEDS: FUROSEMIDE INJ 20 MG in SYRINGE 0 ML IV SCH (08:09)
[2017-07-29] MEDS: LISINOPRIL 40 MG TAB PO SCH (08:10)
[2017-07-29] MEDS: METHADONE HCL 10 MG TAB PO SCH ×2 (08:16→20:31)
[2017-07-29] MEDS: HydrALAZINE HCL 20 MG/ML VIAL IV. SCH ×3 (08:16→20:31)
[2017-07-29] MEDS: INSULIN ASPART 100 UNITS/ML 3 ML PEN SC SCH ×4 (08:20→20:36)
[2017-07-29] MEDS: LACTOBACILLUS ACIDOPHILUS (FLORANEX) TAB PO SCH ×3 (09:04→20:32)
--- NOTE | 2017-07-29 10:35 | Nephrology Progress Note ---
Nephrology Progress Note Date of Service Jul 29, 2017. Chief Complaint ESRD Subjective No acute events overnight. Padilla tolerated HD yesterday without complications. Net UF 400 ml complicated by intradialytic hypotension. BP improved. Patient remains on high flow supplemental oxygen. He states that dyspnea has improved. Padilla remains weak. He is tolerating clears. Abdominal pain well controlled. No fevers or chills. Liquid bowel movement. AVF functioned well for dialysis. Qb was appropriate. No bleeding complications. Plan of care discussed with Dr. Stern this morning. Review of Systems A complete review of systems was performed. Pertinent positives are noted above. All other systems are negative. Vital Signs Last 8 Hrs Date Time Temp Pulse Resp B/P (MAP) Pulse Ox O2 Delivery O2 Flow Rate FiO2 07/29/17 08:00 92 Oxymask 6.0 07/29/17 07:58 36.8 103 22 138/69 (92) 92 07/29/17 05:30 96 143/70 07/29/17 04:08 97 BiPAP 8.0 07/29/17 03:40 36.6 96 20 143/70 (94) 92 CPAP Last Recorded Weight Weight (Kilograms): 84.000 Physical Exam General Appearance: WD/WN, no apparent distress Head: normocephalic, atraumatic Eyes: normal inspection, sclerae normal ENT: normal ENT inspection, pharynx normal Neck: supple, no JVD Respiratory/Chest: lungs clear, no respiratory distress, no accessory muscle use Cardiovascular: regular rate, rhythm, no gallop Abdomen/GI: non tender, soft Extremities/Musculoskelatal: normal inspection, no pedal edema Neurologic/Psych: alert, + pertinent finding (generalized weakness) Family History Cervical cancer Diabetes mellitus Heart disease Hypertension Myocardial infarction Pancreatic cancer Prostate cancer Negative for CKD/ESRD Social History Smokeless Tobacco Use: No Alcohol Use: none Drug Use: none Marital Status: single Housing Status: lives alone Occupation: disabled Single, retired. Formerly worked for [employer]. Never a smoker. Laboratory Results Past 24 Hours 07/29/17 05:36 07/29/17 05:36 Test 07/28/17 11:16 07/28/17 16:33 07/28/17 20:25 07/29/17 01:58 Bedside Glucose 183 mg/dl (70-99) 169 mg/dl (70-99) 207 mg/dl (70-99) 236 mg/dl (70-99) Test 07/29/17 05:36 07/29/17 06:40 Red Blood Count 2.42 M/uL (4.7-6.1) Mean Corpuscular Volume 90.9 fL (80-100) Mean Corpuscular Hemoglobin 29.8 pg (25-34) Mean Corpuscular Hemoglobin Concent 32.7 g/dl (32-36) RDW Standard Deviation 68.0 fL (36.4-46.3) RDW Coefficient of Variation 22.2 % (11.5-14.5) Nucleated RBC Absolute Count (auto) 1.47 K/uL (0-0) Nucleated Red Blood Cells % 10.0 % Platelet Estimate NORMAL Activated Partial Thromboplast Time 66.1 SECONDS (21.0-31.0) Partial Thromboplastin Ratio 2.5 Anion Gap 8.0 mmol/L (3-11) Est Creatinine Clear Calc Drug Dose 21.0 ml/min Estimated GFR () 18.9 Estimated GFR (Non- 16.3 BUN/Creatinine Ratio 27.1 (10-20) Calcium Level 6.9 mg/dl (8.5-10.1) Phosphorus Level 3.1 mg/dl (2.5-4.9) Magnesium Level 2.0 mg/dl (1.8-2.4) Bedside Glucose 240 mg/dl (70-99) Allergies Coded Allergies: Iodinated Diagnostic Agents (Verified Allergy, Unknown, oil based, severe headaches, 06/20/17) EVENT OCCURED IN 1971, PT STATES HE HAS HAD 3 DIFFERENT WATER BASED IVP DYES WITH NO ISSUE Medications Current Inpatient Medications Medications (Trade) Dose Ordered Sig/Edward Route Start Time Stop Time Status Last Admin Dose Admin Lactobacillus Acidophilus (Floranex Tab) 2 tab TID PO 07/06/17 09:00 08/05/17 08:59 07/29/17 09:04 2 TAB Lisinopril (Zestril Tab) 40 mg DAILY PO 07/06/17 09:00 08/05/17 08:59 07/29/17 08:10 40 MG Miscellaneous Information (Check Fentanyl Patch Placement) 1 ea QS N/A 07/06/17 08:00 08/05/17 07:59 07/29/17 08:09 1 EA Glucose (Glucose 40% Gel) 15-30 GRAMS 15 GRAMS... UD PRN PO 07/06/17 04:15 08/05/17 04:14 Glucose (Glucose Chew Tab) 4-8 Tablets 4 Tabl... UD PRN PO 07/06/17 04:15 08/05/17 04:14 Dextrose (Dextrose 50% 50ML Syringe) 25-50ML OF 50% DW IV FOR... UD PRN IV 07/06/17 04:15 08/05/17 04:14 07/06/17 05:40 25 ML Glucagon (Glucagon Inj) 1 mg UD PRN SQ 07/06/17 04:15 08/05/17 04:14 Heparin Sodium (Porcine) (Heparin 100 Unit/ml 5ml Flush) 5 ml PRN PRN IV 07/07/17 02:45 08/06/17 02:44 Future hold 07/26/17 01:15 5 ML Ondansetron HCl (Zofran Inj) 4 mg Q4H PRN IV 07/11/17 03:00 08/10/17 02:59 07/17/17 21:50 4 MG Prochlorperazine Edisylate 5 mg/ Syringe 5 ml @ 5 mls/min Q4H PRN IV 07/11/17 14:00 08/10/17 13:59 Lactulose (Chronulac Syrup) 30 gm Q4H PRN PO 07/11/17 16:45 08/10/17 16:44 Miscellaneous (Fentanyl Patch Remove & Waste) 1 ea Q3D@0859 N/A 07/22/17 08:59 08/21/17 08:58 07/28/17 09:18 1 EA Fentanyl (Duragesic Patch) 25 mcg Q3D@0900 TD 07/22/17 09:00 08/05/17 08:59 07/28/17 09:01 25 MCG Insulin Glargine (Lantus Solostar Pen) 6 units HS SC 07/20/17 21:00 08/19/17 20:59 07/28/17 22:17 6 UNITS Ergocalciferol (Vitamin D Cap) 50,000 interunit Q7D@0900 PO 07/20/17 09:00 08/19/17 08:59 07/20/17 09:32 50,000 INTERUNIT Vancomycin HCl (Consult) 1 [facility] PRN N/A 07/21/17 16:00 08/20/17 15:59 Miscellaneous Information (Pharmacy Tpn/ Ppn Consult Active) 1 [facility] PRN N/A 07/21/17 17:00 08/20/17 16:59 Hydralazine HCl (HydrALAZINE INJ) 5 mg Q4 PRN IV. 07/21/17 17:15 08/20/17 17:14 07/25/17 23:45 5 MG Furosemide 20 mg/ Syringe 2 ml @ 4 mls/min QAM IV 07/22/17 09:00 08/21/17 08:59 07/29/17 08:09 4 MLS/MIN Hydralazine HCl (HydrALAZINE INJ) 5 mg TID IV. 07/21/17 21:00 08/20/17 20:59 07/29/17 08:16 5 MG Methylprednisolone Sodium Succinate 40 mg/Syringe 0.64 ml @ 1.5 mls/min DAILY IV 07/22/17 09:00 08/21/17 08:59 07/29/17 08:09 1.5 MLS/MIN Fentanyl Citrate (Fentanyl Inj) Fentanyl 25-50 mcg... Q4H PRN IV 07/21/17 20:45 08/04/17 20:44 07/24/17 05:47 50 MCG Metoprolol Tartrate (Lopressor Iv) 5 mg Q6 IV. 07/22/17 12:00 08/20/17 17:59 07/29/17 05:30 5 MG Dextrose 1,000 ml @ 0 mls/hr Q0M PRN IV 07/22/17 16:00 08/21/17 15:59 Cefepime HCl (Consult) 1 [facility] PRN N/A 07/22/17 11:30 08/21/17 11:29 Cefepime HCl 500 mg/Syringe 5.5 ml @ 5.5 mls/min DAILY@1600 IV 07/23/17 16:00 08/02/17 15:59 07/28/17 15:43 5.5 MLS/MIN Miscellaneous Information (Consult Glycemic Management Pharmacy) 1 [facility] PRN N/A 07/23/17 13:14 08/22/17 13:13 Morphine Sulfate (MoRPHine SULFATE INJ) 2 mg Q3RWA PRN IV 07/24/17 11:30 08/07/17 11:29 07/28/17 16:08 2 MG Heparin Sodium/ Dextrose 500 ml @ 13 mls/hr Q24H PRN IV 07/26/17 12:15 08/25/17 12:14 07/28/17 00:40 13 MLS/HR Metronidazole 500 mg/Prmx 100 ml @ 100 mls/hr Q8H IV 07/26/17 15:00 08/05/17 14:59 07/29/17 08:09 100 MLS/HR Caspofungin 50 mg/ Sodium Chloride 260 ml @ 250 mls/hr Q24H IV 07/28/17 12:00 08/06/17 11:59 07/28/17 12:33 250 MLS/HR Insulin Aspart (novoLOG ASPART) SLIDING SCALE G... ACHS SC 07/27/17 11:30 08/26/17 11:29 07/29/17 08:20 9 UNITS Nutrition (Parenteral) 0 ml @ 0 mls/hr TODAY@1600 IV 07/28/17 16:00 07/29/17 15:59 07/28/17 16:22 0 MLS/HR Methadone HCl (Dolophine Tab) 20 mg BID PO 07/28/17 21:00 08/08/17 08:59 07/29/17 08:16 20 MG Nutrition (Parenteral) 0 ml @ 0 mls/hr TODAY@1600 IV 07/29/17 16:00 07/30/17 15:59 Ipratropium [place] (Atrovent 0.02% 0.5MG/2.5ML Neb) 0.5 mg Q6R INH 07/29/17 09:00 08/28/17 08:59 Levalbuterol (Xopenex 0.63 Mg/ 3 Ml Neb) 0.63 mg Q6R INH 07/29/17 09:00 08/28/17 08:59 Impression (1) Cellulitis of left hand (2) ESRD (end stage renal disease) on dialysis (3) Renal cell carcinoma (4) Anemia (5) Diabetes type 2, controlled Mr. Christy has ESRD and metastatic RCC. He underwent left nephrectomy in 2015. Patient did not tolerate Sutent due to high grade proteinuria; Opdivo caused arthralgia, colitis and possible pneumonitis. He was most recently treated w/ Cabometyx. This was complicated by abdominal wall hematoma a intestinal perforation. He remains on steroids for interstitial lung disease versus [employer]. Mr. Christy was admitted with persistent soft tissue infection of the left hand. Patient tested positive for C. Difficile colitis. He has had a prolonged and complicated hospital course. On 07/21 Mr. Christy was diagnosed with intestinal perforation and required emergency laparotomy. 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 Partial colectomy w/ reanastomosis was completed Mr. Christy's dialysis was complicated by prolonged bleeding from the AVF following treatment. 07/23 duplex study demonstrated high grade venous outflow stenosis. Fistulogram with coil embolization completed 07/25/16. Mr. Christy developed acute hypoxic respiratory failure and respiratory distress requiring NIPPV. Heparin gtt started for suspected PE. Recommendations END STAGE RENAL DISEASE: -- HD MWF schedule -- BP and volume status are currently appropriate -- Metabolic profile within normal limits -- Protect LUE AVF ANEMIA: -- IDALIA w/ HD treatments -- Discussed with Dr. Dao this morning -- Agree with transfusion support to keep Hgb ~8 HYPERTENSION: -- Blood pressure is currently well controlled. Continue current antihypertensive regimen. No change at present. RENAL CELL CA: -- Treatment on hold CKD-BMD: -- Calcitriol and CaCO3 on hold due to recent abdominal surgery ID: -- Medications appropriate for IHD ILD/[employer]: -- Pulmonology recs reviewed and appreciated
--- NOTE | 2017-07-29 10:48 | Pulmonology Progress Note ---
Pulmonary Progress Note Date of Service Jul 29, 2017. Attending Dr. Clark Subjective Patient seen and examined at bedside. States that he is feeling better. Currently on 5-6 L oxygen mask. Saturating above 91%. He had breakfast this morning and tolerated. Has mild abdominal pain. Denies any chest pain or shortness of breath. Objective Vital signs reviewed. Tm 36.8, BP 138/69-149/71, P 96-103, RR 20-22, SaO2 92-97 % on 6 L nasal cannula with intermittent BiPAP14/8 with RR 12 bpm, FiO2 6-8 L/m His cumulative balance is about 423 mL positive General: Patient is awake, alert, cooperative, and in no acute distress. On oxygen mask Head: Normocephalic, Atraumatic. ENT: PERRLA, No discharge, EOMI, Sclera normal Neck: Normal ROM. Trachea midline. No stridor, left IJ shiley Respiratory/Chest: Mild decrease in breath sounds b/l. No respiratory distress. No accessory muscle use. Left tunneled catheter in place. Cardiovascular: Regular rate and rhythm. No murmur appreciate. Normal S1/S2. Abdomen: Mild tenderness to palpation. Normal bowel sounds hear throughout. No guarding. Back: Normal inspection. Extremities: Normal ROM,edema bilaterally in upper and lower extremities, no cyanosis. Ecchymosis of RUE Neuro: Alert, Oriented x 3. CN II-XII grossly intact. Sensation and motor function grossly intact. Psych: Mood and affect are flat Labs reviewed. White blood cell count 14, hemoglobin 8.2-->7.2, platelet count 119 BUN 129, creatinine 4.6., CRP 11.2 ABG 07/28/2017--7.41/.3% on 5 L BiPAP 14/8. Gram stain peritoneal fluid 07/21/2017--dc glabrata C. difficile toxin PCR 07/12/2017-positive for c.diff toxin B Imaging reviewed. Chest x-ray 07/28/2017 IMPRESSION: 1. Improving pulmonary vascular congestion 2. Moderate right pleural effusion and trace left pleural effusion. Persistent bibasal airspace opacities Medications reviewed. Assessment & Plan Acute Hypoxic Respiratory Failure Right sided pleural effusion versus rounded atelectasis Bilateral lung opacities Renal Cell Carcinoma CKD on hemodialysis Possible Cryptogenic Organizing Pneumonia Fungal peritonitis Ruptured viscous s/p bowel resection Rectal sheath hematoma C. difficile infection Patient has had a complicated course. He is still in acute hypoxic respiratory failure that is multifactorial in nature. He is currently on 5-6 L oxygen mask and saturating in the low 90s. No acute respiratory distress or use of muscles of respiration. Recommendations Continue his supplemental oxygen to maintain SaO2 above 92%. Taper as tolerated Continue with BIPAP when necessary. Patient is requesting to have BiPAP at bedside for dyspnea. Continue with antibiotics per ID recommendations. Continue with prednisone slow taper over the next several weeks Continue with nebulizer prn. Continue dialysis and lasix per nephrology recommendations. Continue heparin drip for presumed PE, per primary team Lower extremity ultrasound --pending. Continue with adequate pain control and incentive spirometry Data Medications: Current Inpatient Medications Medications (Trade) Dose Ordered Sig/Edward Route Start Time Stop Time Status Last Admin Dose Admin Lactobacillus Acidophilus (Floranex Tab) 2 tab TID PO 07/06/17 09:00 08/05/17 08:59 07/29/17 09:04 2 TAB Lisinopril (Zestril Tab) 40 mg DAILY PO 07/06/17 09:00 08/05/17 08:59 07/29/17 08:10 40 MG Miscellaneous Information (Check Fentanyl Patch Placement) 1 ea QS N/A 07/06/17 08:00 08/05/17 07:59 07/29/17 08:09 1 EA Glucose (Glucose 40% Gel) 15-30 GRAMS 15 GRAMS... UD PRN PO 07/06/17 04:15 08/05/17 04:14 Glucose (Glucose Chew Tab) 4-8 Tablets 4 Tabl... UD PRN PO 07/06/17 04:15 08/05/17 04:14 Dextrose (Dextrose 50% 50ML Syringe) 25-50ML OF 50% DW IV FOR... UD PRN IV 07/06/17 04:15 08/05/17 04:14 07/06/17 05:40 25 ML Glucagon (Glucagon Inj) 1 mg UD PRN SQ 07/06/17 04:15 08/05/17 04:14 Heparin Sodium (Porcine) (Heparin 100 Unit/ml 5ml Flush) 5 ml PRN PRN IV 07/07/17 02:45 08/06/17 02:44 Future hold 07/26/17 01:15 5 ML Ondansetron HCl (Zofran Inj) 4 mg Q4H PRN IV 07/11/17 03:00 08/10/17 02:59 07/17/17 21:50 4 MG Prochlorperazine Edisylate 5 mg/ Syringe 5 ml @ 5 mls/min Q4H PRN IV 07/11/17 14:00 08/10/17 13:59 Lactulose (Chronulac Syrup) 30 gm Q4H PRN PO 07/11/17 16:45 08/10/17 16:44 Miscellaneous (Fentanyl Patch Remove & Waste) 1 ea Q3D@0859 N/A 07/22/17 08:59 08/21/17 08:58 07/28/17 09:18 1 EA Fentanyl (Duragesic Patch) 25 mcg Q3D@0900 TD 07/22/17 09:00 08/05/17 08:59 07/28/17 09:01 25 MCG Insulin Glargine (Lantus Solostar Pen) 6 units HS SC 07/20/17 21:00 08/19/17 20:59 07/28/17 22:17 6 UNITS Ergocalciferol (Vitamin D Cap) 50,000 interunit Q7D@0900 PO 07/20/17 09:00 08/19/17 08:59 07/20/17 09:32 50,000 INTERUNIT Vancomycin HCl (Consult) 1 ea UD PRN N/A 07/21/17 16:00 08/20/17 15:59 Miscellaneous Information (Pharmacy Tpn/ Ppn Consult Active) 1 ea UD PRN N/A 07/21/17 17:00 08/20/17 16:59 Hydralazine HCl (HydrALAZINE INJ) 5 mg Q4 PRN IV. 07/21/17 17:15 08/20/17 17:14 07/25/17 23:45 5 MG Furosemide 20 mg/ Syringe 2 ml @ 4 mls/min QAM IV 07/22/17 09:00 08/21/17 08:59 07/29/17 08:09 4 MLS/MIN Hydralazine HCl (HydrALAZINE INJ) 5 mg TID IV. 07/21/17 21:00 08/20/17 20:59 07/29/17 08:16 5 MG Methylprednisolone Sodium Succinate 40 mg/Syringe 0.64 ml @ 1.5 mls/min DAILY IV 07/22/17 09:00 08/21/17 08:59 07/29/17 08:09 1.5 MLS/MIN Fentanyl Citrate (Fentanyl Inj) Fentanyl 25-50 mcg... Q4H PRN IV 07/21/17 20:45 08/04/17 20:44 07/24/17 05:47 50 MCG Metoprolol Tartrate (Lopressor Iv) 5 mg Q6 IV. 07/22/17 12:00 08/20/17 17:59 07/29/17 05:30 5 MG Dextrose 1,000 ml @ 0 mls/hr Q0M PRN IV 07/22/17 16:00 08/21/17 15:59 Cefepime HCl (Consult) 1 ea UD PRN N/A 07/22/17 11:30 08/21/17 11:29 Cefepime HCl 500 mg/Syringe 5.5 ml @ 5.5 mls/min DAILY@1600 IV 07/23/17 16:00 08/02/17 15:59 07/28/17 15:43 5.5 MLS/MIN Miscellaneous Information (Consult Glycemic Management Pharmacy) 1 ea UD PRN N/A 07/23/17 13:14 08/22/17 13:13 Morphine Sulfate (MoRPHine SULFATE INJ) 2 mg Q3RWA PRN IV 07/24/17 11:30 08/07/17 11:29 07/28/17 16:08 2 MG Heparin Sodium/ Dextrose 500 ml @ 13 mls/hr Q24H PRN IV 07/26/17 12:15 08/25/17 12:14 07/28/17 00:40 13 MLS/HR Metronidazole 500 mg/Prmx 100 ml @ 100 mls/hr Q8H IV 07/26/17 15:00 08/05/17 14:59 07/29/17 08:09 100 MLS/HR Caspofungin 50 mg/ Sodium Chloride 260 ml @ 250 mls/hr Q24H IV 07/28/17 12:00 08/06/17 11:59 07/28/17 12:33 250 MLS/HR Insulin Aspart (novoLOG ASPART) SLIDING SCALE G... ACHS SC 07/27/17 11:30 08/26/17 11:29 07/29/17 08:20 9 UNITS Nutrition (Parenteral) 0 ml @ 0 mls/hr TODAY@1600 IV 07/28/17 16:00 07/29/17 15:59 07/28/17 16:22 0 MLS/HR Methadone HCl (Dolophine Tab) 20 mg BID PO 07/28/17 21:00 08/08/17 08:59 07/29/17 08:16 20 MG Nutrition (Parenteral) 0 ml @ 0 mls/hr TODAY@1600 IV 07/29/17 16:00 07/30/17 15:59 Ipratropium [place] (Atrovent 0.02% 0.5MG/2.5ML Neb) 0.5 mg Q6R INH 07/29/17 09:00 08/28/17 08:59 Levalbuterol (Xopenex 0.63 Mg/ 3 Ml Neb) 0.63 mg Q6R INH 07/29/17 09:00 08/28/17 08:59 Vital Signs: Date Time Temp Pulse Resp B/P (MAP) Pulse Ox O2 Delivery O2 Flow Rate FiO2 07/29/17 08:00 92 Oxymask 6.0 07/29/17 07:58 36.8 103 22 138/69 (92) 92 07/29/17 05:30 96 143/70 07/29/17 04:08 97 BiPAP 8.0 07/29/17 03:40 36.6 96 20 143/70 (94) 92 CPAP 07/29/17 00:38 102 149/71 07/29/17 00:10 36.7 102 20 149/71 (97) 92 CPAP 07/29/17 00:00 97 BiPAP 8.0 07/28/17 22:55 94 9.0 07/28/17 20:56 36.9 95 21 117/68 (84) 95 CPAP 07/28/17 20:00 97 BiPAP 8.0 07/28/17 17:53 92 120/64 07/28/17 16:00 BiPAP 8.0 07/28/17 15:53 36.9 92 18 120/64 (82) 97 07/28/17 13:20 36.6 106 126/56 (79) 07/28/17 13:00 104 78/36 07/28/17 12:45 111 73/40 07/28/17 12:33 96 102/61 07/28/17 12:30 120 111/39 07/28/17 12:26 37.0 102 16 118/64 (82) 96 96 07/28/17 12:15 120 121/53 07/28/17 12:00 126 91/44 07/28/17 12:00 BiPAP 6.0 07/28/17 11:45 126 91/44 07/28/17 11:30 122 104/53 07/28/17 11:15 118 125/48 07/28/17 11:00 111 159/67 07/28/17 10:45 100 144/69 Laboratory Results: Last 24 Hours Test 07/28/17 11:16 07/28/17 16:33 07/28/17 20:25 07/29/17 01:58 Bedside Glucose 183 mg/dl 169 mg/dl 207 mg/dl 236 mg/dl Test 07/29/17 05:36 07/29/17 06:40 White Blood Count 14.67 K/uL Red Blood Count 2.42 M/uL Hemoglobin 7.2 g/dL Hematocrit 22.0 % Mean Corpuscular Volume 90.9 fL Mean Corpuscular Hemoglobin 29.8 pg Mean Corpuscular Hemoglobin Concent 32.7 g/dl RDW Standard Deviation 68.0 fL RDW Coefficient of Variation 22.2 % Platelet Count 119 K/uL Nucleated RBC Absolute Count (auto) 1.47 K/uL Nucleated Red Blood Cells % 10.0 % Platelet Estimate NORMAL Activated Partial Thromboplast Time 66.1 SECONDS Partial Thromboplastin Ratio 2.5 Sodium Level 134 mmol/L Potassium Level 3.6 mmol/L Chloride Level 101 mmol/L Carbon Dioxide Level 25 mmol/L Anion Gap 8.0 mmol/L Blood Urea Nitrogen 100 mg/dl Creatinine 3.71 mg/dl Est Creatinine Clear Calc Drug Dose 21.0 ml/min Estimated GFR () 18.9 Estimated GFR (Non- 16.3 BUN/Creatinine Ratio 27.1 Random Glucose 231 mg/dl Calcium Level 6.9 mg/dl Phosphorus Level 3.1 mg/dl Magnesium Level 2.0 mg/dl Bedside Glucose 240 mg/dl
--- NOTE | 2017-07-29 10:54 | DIAGNOSTIC IMAGING REPORT ---
ULTRASOUND VENOUS DOPPLER LWR EXT BILA CLINICAL HISTORY: Leg swelling COMPARISON STUDY: 04/07/2017 FINDINGS: Real-time and color flow Doppler imaging were performed. Flow was seen within the femoral, popliteal and calf veins with no intraluminal thrombus demonstrated. The saphenous vein is patent. There is moderate diffuse bilateral leg edema. IMPRESSION: No evidence of lower extremity DVT. Electronically signed by: Isael Aaron M.D. 07/29/2017 10:52 AM Dictated Date/Time: 07/29/2017 10:52 AM
--- NOTE | 2017-07-29 11:16 | Surgery Progress Note ---
Surgery Progress Note Date of Service Jul 29, 2017. Subjective Post OP Day: 8 + feeling well, + pain controlled, No bowel movement, No nausea, No vomiting Patient sitting up in bed- reports that he is doing alright. No new concerns overnight. Objective Vital Signs: Date Time Temp Pulse Resp B/P (MAP) Pulse Ox O2 Delivery O2 Flow Rate FiO2 07/29/17 08:00 92 Oxymask 6.0 07/29/17 07:58 36.8 103 22 138/69 (92) 92 07/29/17 05:30 96 143/70 07/29/17 04:08 97 BiPAP 8.0 07/29/17 03:40 36.6 96 20 143/70 (94) 92 CPAP 07/29/17 00:38 102 149/71 07/29/17 00:10 36.7 102 20 149/71 (97) 92 CPAP 07/29/17 00:00 97 BiPAP 8.0 07/28/17 22:55 94 9.0 07/28/17 20:56 36.9 95 21 117/68 (84) 95 CPAP 07/28/17 20:00 97 BiPAP 8.0 07/28/17 17:53 92 120/64 07/28/17 16:00 BiPAP 8.0 07/28/17 15:53 36.9 92 18 120/64 (82) 97 07/28/17 13:20 36.6 106 126/56 (79) 07/28/17 13:00 104 78/36 07/28/17 12:45 111 73/40 07/28/17 12:33 96 102/61 07/28/17 12:30 120 111/39 07/28/17 12:26 37.0 102 16 118/64 (82) 96 96 07/28/17 12:15 120 121/53 07/28/17 12:00 126 91/44 07/28/17 12:00 BiPAP 6.0 07/28/17 11:45 126 91/44 07/28/17 11:30 122 104/53 07/28/17 11:15 118 125/48 07/28/17 11:00 111 159/67 General Appearance: WD/WN, no apparent distress Head: normocephalic, atraumatic Abdomen: soft, + pertinent finding (tendernes at incision site. ) Incision(s): clean, dry, intact, no erythema, no drainage Laboratory Results: Results Past 24 Hours Test 07/28/17 11:16 07/28/17 16:33 07/28/17 20:25 07/29/17 01:58 Range/Units Bedside Glucose 183 169 207 236 70-99 mg/dl Test 07/29/17 05:36 07/29/17 06:40 Range/Units White Blood Count 14.67 4.8-10.8 K/uL Red Blood Count 2.42 4.7-6.1 M/uL Hemoglobin 7.2 14.0-18.0 g/dL Hematocrit 22.0 42-52 % Mean Corpuscular Volume 90.9 80-100 fL Mean Corpuscular Hemoglobin 29.8 25-34 pg Mean Corpuscular Hemoglobin Concent 32.7 32-36 g/dl RDW Standard Deviation 68.0 36.4-46.3 fL RDW Coefficient of Variation 22.2 11.5-14.5 % Platelet Count 119 130-400 K/uL Nucleated RBC Absolute Count (auto) 1.47 0-0 K/uL Nucleated Red Blood Cells % 10.0 % Platelet Estimate NORMAL Activated Partial Thromboplast Time 66.1 21.0-31.0 SECONDS Partial Thromboplastin Ratio 2.5 Sodium Level 134 136-145 mmol/L Potassium Level 3.6 3.5-5.1 mmol/L Chloride Level 101 98-107 mmol/L Carbon Dioxide Level 25 21-32 mmol/L Anion Gap 8.0 3-11 mmol/L Blood Urea Nitrogen 100 7-18 mg/dl Creatinine 3.71 0.60-1.40 mg/dl Est Creatinine Clear Calc Drug Dose 21.0 ml/min Estimated GFR () 18.9 Estimated GFR (Non- 16.3 BUN/Creatinine Ratio 27.1 10-20 Random Glucose 231 70-99 mg/dl Calcium Level 6.9 8.5-10.1 mg/dl Phosphorus Level 3.1 2.5-4.9 mg/dl Magnesium Level 2.0 1.8-2.4 mg/dl Bedside Glucose 240 70-99 mg/dl Assessment & Plan POD # 8 s/p exploratory laparotomy, small bowel resection with primary anastomosis Bipap- managment per pulmonary team. Pain controlled- pain control per primary team. Antibiotics per Infectious Disease. Will advance diet to full liquids today- will see how he tolerates. Recommend calorie counts- Pharmacy managing TPN. WBC 14.67 today. Incision healing well, mario in place- no signs of infection. Will continue to follow.
[2017-07-29] MEDS: CASPOFUNGIN INJ 50 MG in SODIUM CHLORIDE 0.9% 250ML 250 ML IV SCH (11:42)
--- NOTE | 2017-07-29 11:57 | Hematology/Oncology Prog Note ---
Hematology/Onc Progress Note Date of Service Jul 29, 2017. Diagnoses metastatic renal cell carcinoma Left hand and arm cellulitis End-stage renal disease Jejunal perforation Jejunal diverticulitis Medications Medications Administered Medications (Trade) Dose Ordered Sig/Edward Route Start Time Stop Time Status Last Admin Dose Admin Acetaminophen (Tylenol Tab) 650 mg Q4H PRN PO 07/05/17 21:45 07/21/17 15:11 DC 07/20/17 15:28 650 MG Ertapenem 500 mg/ Sodium Chloride 55 ml @ 120 mls/hr Q24H IV 07/05/17 23:00 07/13/17 16:37 DC 07/12/17 23:38 120 MLS/HR Daptomycin 350 mg/ Syringe 7 ml @ 3.5 mls/min Q48H IV 07/06/17 20:00 07/13/17 16:37 DC 07/12/17 20:52 3.5 MLS/MIN Amlodipine Besylate (Norvasc Tab) 10 mg QAM PO 07/06/17 09:00 07/21/17 15:11 DC 07/20/17 09:32 10 MG Aspirin (Ecotrin Tab) 81 mg QAM PO 07/06/17 09:00 07/21/17 15:11 DC 07/20/17 08:28 81 MG Calcitriol (Rocaltrol Cap) 0.25 mcg Q2D PO 07/06/17 09:00 07/21/17 15:11 DC 07/20/17 08:31 0.25 MCG Calcium Carbonate (Tums Chew Tab) 500 mg TID PO 07/06/17 09:00 07/07/17 13:22 DC 07/07/17 13:00 500 MG Furosemide (Lasix Tab) 40 mg QAM PO 07/06/17 09:00 07/21/17 15:11 DC 07/20/17 09:31 40 MG Hydralazine HCl (Apresoline Tab) 100 mg TID PO 07/06/17 09:00 07/21/17 15:11 DC 07/20/17 09:30 100 MG Lactobacillus Acidophilus (Floranex Tab) 2 tab TID PO 07/06/17 09:00 08/05/17 08:59 07/29/17 09:04 2 TAB Lisinopril (Zestril Tab) 40 mg DAILY PO 07/06/17 09:00 08/05/17 08:59 07/29/17 08:10 40 MG Methadone HCl (Dolophine Tab) 10 mg TID PO 07/06/17 09:00 07/14/17 09:02 DC 07/13/17 20:53 10 MG Metoprolol Tartrate (Lopressor Tab) 150 mg BID PO 07/06/17 09:00 07/21/17 15:11 DC 07/20/17 09:33 150 MG Polyethylene (Miralax Powder Packet) 17 gm DAILY PRN PO 07/06/17 02:30 07/11/17 16:34 DC 07/09/17 08:14 17 GM Prednisone (PredniSONE TAB) 10 mg BID PO 07/06/17 09:00 07/14/17 15:02 DC 07/14/17 10:09 10 MG Simvastatin (Zocor Tab) 20 mg QPM PO 07/06/17 21:00 07/21/17 15:11 DC 07/21/17 00:17 20 MG Tamsulosin HCl (Flomax Cap) 0.4 mg HS PO 07/06/17 21:00 07/21/17 15:11 DC 07/21/17 00:19 0.4 MG Cabozantinib (Cabometyx) 60 mg DAILY@0500 PO 07/06/17 05:00 07/19/17 16:17 DC 07/19/17 05:19 60 MG Oxycodone HCl (Roxicodone Immediate Rel Tab) 10 mg TID PO 07/06/17 09:00 07/10/17 13:21 DC 07/10/17 09:00 10 MG Insulin Aspart (novoLOG ASPART) SLIDING SCALE G... ACHS SC 07/06/17 07:00 07/22/17 17:01 DC 07/20/17 12:46 2 UNITS Methylprednisolone Sodium Succinate 50 mg/Syringe 0.8 ml @ 1.5 mls/min NOW ONCE IV 07/06/17 03:45 07/06/17 03:56 DC 07/06/17 04:30 1.5 MLS/MIN Miscellaneous Information (Check Fentanyl Patch Placement) 1 ea QS N/A 07/06/17 08:00 08/05/17 07:59 07/29/17 08:09 1 EA Dextrose (Dextrose 50% 50ML Syringe) 25-50ML OF 50% DW IV FOR... UD PRN IV 07/06/17 04:15 08/05/17 04:14 07/06/17 05:40 25 ML Epoetin Mohsen 8000 units/Syringe 0.4 ml @ 1 mls/min TODAY@0945 IV. 07/06/17 09:45 07/06/17 12:00 DC 07/06/17 12:02 1 MLS/MIN Insulin Glargine (Lantus Solostar Pen) 7 units HS SC 07/06/17 21:00 07/16/17 17:50 DC 07/15/17 20:33 7 UNITS Enteral Nutritional Formula (Boost Glucose Control) 1 can BIDM PO 07/06/17 16:45 07/20/17 08:42 DC 07/20/17 08:26 1 CAN Heparin Sodium (Porcine) (Heparin 10 Unit/ ml 5 ml Flush) 5 ml STK-MED ONCE .ROUTE 07/06/17 21:06 07/06/17 21:07 DC 07/06/17 21:16 5 ML Miscellaneous (Fentanyl Patch Remove & Waste) 1 ea Q3D N/A 07/10/17 01:00 07/19/17 09:10 DC 07/19/17 08:54 1 EA Fentanyl (Duragesic Patch) 25 mcg Q3D TD 07/07/17 01:00 07/19/17 09:14 DC 07/19/17 08:53 25 MCG Heparin Sodium (Porcine) (Heparin 100 Unit/ml 5ml Flush) 5 ml PRN PRN IV 07/07/17 02:45 08/06/17 02:44 Future hold 07/26/17 01:15 5 ML Epoetin Mohsen 8000 units/Syringe 0.4 ml @ 1 mls/min TODAY@0600 IV. 07/08/17 06:00 07/08/17 18:00 DC 07/08/17 18:15 1 MLS/MIN Calcium Carbonate (Tums Chew Tab) 500 mg TIDM PO 07/07/17 17:00 07/21/17 15:11 DC 07/20/17 17:27 500 MG Methylprednisolone Sodium Succinate 40 mg/Syringe 0.64 ml @ 1.5 mls/min ONE STAT IV 07/09/17 17:39 07/09/17 18:31 DC 07/09/17 21:39 1.5 MLS/MIN Oxycodone HCl (Roxicodone Immediate Rel Tab) 10 mg TID PRN PO 07/10/17 14:00 07/14/17 09:02 DC 07/14/17 01:11 10 MG Ondansetron HCl (Zofran Inj) 4 mg STK-MED ONCE .ROUTE 07/10/17 21:38 07/10/17 21:39 DC 07/10/17 21:40 4 MG Ondansetron HCl (Zofran Inj) 4 mg Q4H PRN IV 07/11/17 03:00 08/10/17 02:59 07/17/17 21:50 4 MG Pantoprazole Sodium 40 mg/ Syringe 10 ml @ 5 mls/min DAILY@11 IV 07/11/17 11:00 07/13/17 15:05 DC 07/13/17 14:22 5 MLS/MIN Ondansetron HCl (Zofran Inj) 4 mg STK-MED ONCE .ROUTE 07/11/17 02:55 07/11/17 02:56 DC 07/11/17 02:58 4 MG Prochlorperazine Edisylate 5 mg/ Syringe 5 ml @ 5 mls/min 1200 ONCE IV 07/11/17 12:00 07/11/17 12:01 DC 07/11/17 13:02 5 MLS/MIN Lactulose (Chronulac Syrup) 30 gm NOW STAT PO 07/11/17 16:32 07/11/17 16:36 DC 07/11/17 17:38 30 GM Senna (Senokot Tab) 8.6 mg QAM PO 07/12/17 08:00 07/21/17 15:11 DC 07/17/17 08:57 8.6 MG Senna (Senokot Tab) 8.6 mg 1632 ONCE PO 07/11/17 16:32 07/11/17 16:36 DC 07/11/17 17:38 8.6 MG Polyethylene (Miralax Powder Packet) 17 gm DAILY PO 07/11/17 16:45 07/21/17 15:11 DC 07/18/17 07:50 17 GM Levalbuterol (Xopenex 0.63 Mg/ 3 Ml Neb) 0.63 mg NOW STAT INH 07/11/17 22:09 07/11/17 22:18 DC 07/11/17 22:31 0.63 MG Heparin Sodium (Porcine) (Heparin Sq 5000 Unit/0.5ml) 5,000 unit Q12 SQ 07/12/17 21:00 07/13/17 14:10 DC 07/12/17 20:44 5,000 UNIT Vancomycin HCl (Vancomycin Oral Soln) 250 mg Q6H PO 07/12/17 17:00 07/15/17 15:40 DC 07/15/17 13:17 250 MG Raspberry (Raspberry Syrup 5ml Cup) 5 ml Q6H PO 07/12/17 17:00 07/21/17 15:11 DC 07/21/17 05:43 5 ML Epoetin Mohsen (Procrit Inj) 20,000 units TODAY@1100 IV 07/13/17 11:00 07/13/17 18:02 DC 07/13/17 13:00 20,000 UNITS Iron Sucrose 100 mg/Syringe 5 ml @ 1 mls/min TODAY IV 07/13/17 11:00 07/13/17 18:02 DC 07/13/17 13:05 1 MLS/MIN Pantoprazole Sodium (Protonix Tab) 40 mg QAM PO 07/14/17 08:00 07/14/17 23:59 DC 07/14/17 10:09 40 MG Vancomycin HCl 1750 mg/Sodium Chloride 535 ml @ 200 mls/hr ONE ONCE IV 07/13/17 17:30 07/13/17 20:10 DC 07/13/17 19:12 200 MLS/HR Aztreonam 2000 mg/ Dextrose 110 ml @ 110 mls/hr ONE ONCE IV 07/13/17 17:30 07/14/17 15:02 DC 07/13/17 17:45 110 MLS/HR Aztreonam 500 mg/ Dextrose 55 ml @ 110 mls/hr Q12H IV 07/14/17 09:00 07/14/17 15:02 DC 07/14/17 10:13 110 MLS/HR Oxycodone HCl (Roxicodone Immediate Rel Tab) 10 mg Q4H PRN PO 07/14/17 09:15 07/21/17 15:11 DC 07/20/17 16:51 10 MG Methadone HCl (Dolophine Tab) 20 mg BID PO 07/14/17 09:30 07/20/17 17:01 DC 07/20/17 08:28 20 MG Prednisone (PredniSONE TAB) 40 mg DAILY PO 07/15/17 08:00 07/21/17 15:11 DC 07/20/17 08:30 40 MG Prednisone (PredniSONE TAB) 30 mg NOW ONCE PO 07/14/17 15:30 07/14/17 15:31 DC 07/14/17 16:14 30 MG Piperacillin Sod/ Tazobactam Sod 3.375 gm/Dextrose 115 ml @ 28.75 mls/ hr Q12@1000,2200 IV 07/14/17 22:00 07/19/17 13:14 DC 07/19/17 09:57 28.75 MLS/HR Piperacillin Sod/ Tazobactam Sod 3.375 gm/Dextrose 115 ml @ 230 mls/hr NOW ONCE IV 07/14/17 15:30 07/14/17 15:59 DC 07/14/17 16:15 230 MLS/HR Epoetin Mohsen (Procrit Inj) 10,000 units TODAY@1400 SC 07/15/17 14:00 07/15/17 18:00 DC 07/15/17 13:58 10,000 UNITS Vancomycin HCl (Vancomycin Oral Soln) 125 mg Q6H PO 07/15/17 17:00 07/21/17 15:11 DC 07/21/17 05:42 125 MG Vancomycin HCl 500 mg/Sodium Chloride 260 ml @ 125 mls/hr TODAY@1700 IV 07/15/17 17:00 07/15/17 20:00 DC 07/15/17 17:28 125 MLS/HR Insulin Glargine (Lantus Solostar Pen) 8 units HS SC 07/16/17 21:00 07/19/17 22:14 DC 07/19/17 21:58 6 UNITS Simethicone (Mylicon Chew Tab) 80 mg NOW STAT PO 07/17/17 23:07 07/17/17 23:08 DC 07/17/17 23:51 80 MG Vancomycin HCl 500 mg/Sodium Chloride 260 ml @ 125 mls/hr 1400 IV 07/18/17 14:00 12/26/17 16:05 DC 07/18/17 14:33 125 MLS/HR Epoetin Mohsen 8000 units/Syringe 0.4 ml @ 1 mls/min TODAY@1200 IV. 07/18/17 12:00 07/18/17 23:59 DC 07/18/17 13:12 1 MLS/MIN Miscellaneous (Fentanyl Patch Remove & Waste) 1 ea Q3D@0859 N/A 07/22/17 08:59 08/21/17 08:58 07/28/17 09:18 1 EA Fentanyl (Duragesic Patch) 25 mcg Q3D@0900 TD 07/22/17 09:00 08/05/17 08:59 07/28/17 09:01 25 MCG Epoetin Mohsen 8000 units/Syringe 0.4 ml @ 1 mls/min TODAY@0600 IV. 07/20/17 06:00 07/20/17 18:00 DC 07/20/17 22:50 1 MLS/MIN Levofloxacin (Levaquin Tab) 750 mg TODAY@1600 ONCE PO 07/19/17 16:00 07/19/17 16:01 DC 07/19/17 17:04 750 MG Insulin Glargine (Lantus Solostar Pen) 6 units HS SC 07/20/17 21:00 08/19/17 20:59 07/28/17 22:17 6 UNITS Ergocalciferol (Vitamin D Cap) 50,000 interunit Q7D@0900 PO 07/20/17 09:00 08/19/17 08:59 07/20/17 09:32 50,000 INTERUNIT Enteral Nutritional Formula (Boost) 1 can TID PO 07/20/17 14:00 07/21/17 15:12 DC 07/21/17 00:14 1 CAN Ranitidine HCl (zANTac TAB) 150 mg DAILY PO 07/20/17 13:00 07/21/17 15:12 DC 07/20/17 12:42 150 MG Methadone HCl (Dolophine Tab) 30 mg BID PO 07/20/17 20:00 07/21/17 17:31 DC 07/21/17 00:16 30 MG Piperacillin Sod/ Tazobactam Sod 3.375 gm/Dextrose 115 ml @ 200 mls/hr NOW ONCE IV 07/21/17 08:00 07/21/17 08:34 DC 07/21/17 10:32 200 MLS/HR Piperacillin Sod/ Tazobactam Sod 3.375 gm/Dextrose 115 ml @ 28.75 mls/ hr Q12H IV 07/21/17 20:00 07/22/17 11:18 DC 07/22/17 08:17 28.75 MLS/HR Fentanyl Citrate (Fentanyl Inj) 50 mcg Q5M PRN IV 07/21/17 11:45 07/21/17 16:45 DC 07/21/17 14:24 50 MCG Hydromorphone HCl (Dilaudid Inj) 0.5 mg Q5M PRN IV 07/21/17 11:45 07/21/17 16:45 DC 07/21/17 15:10 0.5 MG Hydralazine HCl (HydrALAZINE INJ) 5 mg Q4 PRN IV. 07/21/17 17:15 08/20/17 17:14 07/25/17 23:45 5 MG Furosemide 20 mg/ Syringe 2 ml @ 4 mls/min QAM IV 07/22/17 09:00 08/21/17 08:59 07/29/17 08:09 4 MLS/MIN Hydralazine HCl (HydrALAZINE INJ) 5 mg TID IV. 07/21/17 21:00 08/20/17 20:59 07/29/17 08:16 5 MG Metoprolol Tartrate (Lopressor Iv) 2.5 mg Q6 IV. 07/21/17 18:00 07/22/17 08:59 DC 07/22/17 00:00 2.5 MG Methylprednisolone Sodium Succinate 40 mg/Syringe 0.64 ml @ 1.5 mls/min DAILY IV 07/22/17 09:00 08/21/17 08:59 07/29/17 08:09 1.5 MLS/MIN Fentanyl Citrate (Fentanyl Inj) Fentanyl 25-50 mcg... Q4H PRN IV 07/21/17 20:45 08/04/17 20:44 07/24/17 05:47 50 MCG Metoprolol Tartrate (Lopressor Iv) 5 mg Q6 IV. 07/22/17 12:00 08/20/17 17:59 07/29/17 11:42 5 MG Metronidazole 500 mg/Prmx 100 ml @ 100 mls/hr Q8@04,12,20 IV 07/22/17 12:00 07/26/17 12:25 DC 07/26/17 04:06 100 MLS/HR Nutrition (Parenteral) 0 ml @ 0 mls/hr TODAY@1600 IV 07/22/17 16:00 07/23/17 15:59 DC 07/22/17 16:22 0 MLS/HR Vancomycin HCl 750 mg/Sodium Chloride 265 ml @ 125 mls/hr NOW ONCE IV 07/22/17 11:30 07/22/17 13:37 DC 07/22/17 12:38 125 MLS/HR Cefepime HCl 500 mg/Syringe 5.5 ml @ 5.5 mls/min DAILY@1600 IV 07/23/17 16:00 08/02/17 15:59 07/28/17 15:43 5.5 MLS/MIN Cefepime HCl 1000 mg/Syringe 11 ml @ 5.5 mls/min TODAY@1800 ONCE IV 07/22/17 18:00 07/22/17 18:01 DC 07/22/17 18:17 5.5 MLS/MIN Insulin Aspart (novoLOG ASPART) SLIDING SCALE G... Q6 SC 07/22/17 18:00 07/26/17 10:14 DC 07/26/17 05:55 8 UNITS Albumin Human (Albumin 25%) 25 gm ONE ONCE IV 07/23/17 09:30 07/23/17 09:31 DC 07/23/17 10:30 25 GM Epoetin Mohsen 8000 units/Syringe 0.4 ml @ 1 mls/min 1000 ONCE IV. 07/23/17 10:00 07/23/17 10:01 DC 07/23/17 13:05 1 MLS/MIN Nutrition (Parenteral) 0 ml @ 0 mls/hr TODAY@1600 IV 07/23/17 16:00 07/24/17 15:59 DC 07/23/17 14:43 0 MLS/HR Vancomycin HCl 1000 mg/Sodium Chloride 270 ml @ 125 mls/hr TODAY@1415 IV 07/23/17 14:15 07/23/17 18:00 DC 07/23/17 14:46 125 MLS/HR Methadone HCl (Dolophine Tab) 20 mg BID PO 07/23/17 21:00 07/25/17 08:49 DC 07/24/17 21:22 20 MG Morphine Sulfate (MoRPHine SULFATE INJ) 2 mg Q3RWA PRN IV 07/24/17 11:30 08/07/17 11:29 07/28/17 16:08 2 MG Nutrition (Parenteral) 0 ml @ 0 mls/hr TODAY@1600 IV 07/24/17 16:00 07/25/17 15:59 DC 07/24/17 15:22 66.1 MLS/HR Insulin Human Regular 8 units/ Syringe 8 ml @ 30 mls/min TODAY@0030 IV 07/25/17 00:30 07/25/17 00:31 DC 07/25/17 00:57 30 MLS/MIN Non-Formulary Medication (Patient'S Own Controlled Med) 1 ea BID PEG 07/25/17 09:00 07/28/17 11:23 DC 07/28/17 09:16 1 EA Methadone HCl (Methadone HCl) 20 mg BID GT 07/25/17 09:00 07/28/17 11:23 DC 07/28/17 09:16 20 MG Nutrition (Parenteral) 0 ml @ 0 mls/hr TODAY@1600 IV 07/25/17 16:00 07/26/17 15:59 DC 07/25/17 16:33 0 MLS/HR Furosemide (Lasix Inj) 40 mg ONE ONCE IV 07/26/17 03:45 07/26/17 03:46 DC 07/26/17 04:00 40 MG Insulin Human NPH (novoLIN-N U-100 NPH PER UNIT) 20 units ONE ONCE SQ 07/26/17 08:45 07/26/17 08:46 DC 07/26/17 09:38 20 UNITS Nutrition (Parenteral) 0 ml @ 0 mls/hr TODAY@1600 IV 07/26/17 16:00 07/27/17 15:59 DC 07/26/17 16:08 0 MLS/HR Vancomycin HCl 750 mg/Sodium Chloride 265 ml @ 125 mls/hr TODAY@1400 IV 07/26/17 14:00 07/27/17 06:50 DC 07/26/17 15:16 125 MLS/HR Insulin Aspart (novoLOG ASPART) SLIDING SCALE G... Q4H SC 07/26/17 10:00 1/4/18 11:02 DC 07/27/17 04:33 2 UNITS Heparin Sodium/ Dextrose 1 ea Q15M N/A 07/26/17 12:00 07/26/17 13:58 DC 07/26/17 12:26 1 EA Heparin Sodium/ Dextrose 500 ml @ 13 mls/hr Q24H PRN IV 07/26/17 12:15 08/25/17 12:14 07/28/17 00:40 13 MLS/HR Metronidazole 500 mg/Prmx 100 ml @ 100 mls/hr Q8H IV 07/26/17 15:00 08/05/17 14:59 07/29/17 08:09 100 MLS/HR Epoetin Mohsen 4000 units/Syringe 0.2 ml @ 1 mls/min 1630 IV. 07/26/17 16:30 07/26/17 18:30 DC 07/26/17 16:09 1 MLS/MIN Magnesium Sulfate 1 gm/Prmx 100 ml @ 100 mls/hr NOW STAT IV 07/27/17 08:15 07/27/17 09:14 DC 07/27/17 10:53 100 MLS/HR Potassium Chloride 10 meq/ Prmx 100 ml @ 100 mls/hr NOW STAT IV 07/27/17 08:16 07/27/17 09:15 DC 07/27/17 10:35 100 MLS/HR Caspofungin 70 mg/ Sodium Chloride 260 ml @ 250 mls/hr 1100 ONCE IV 07/27/17 11:00 07/27/17 12:02 DC 07/27/17 12:43 250 MLS/HR Caspofungin 50 mg/ Sodium Chloride 260 ml @ 250 mls/hr Q24H IV 07/28/17 12:00 08/06/17 11:59 07/29/17 11:42 250 MLS/HR Insulin Aspart (novoLOG ASPART) SLIDING SCALE G... ACHS SC 07/27/17 11:30 08/26/17 11:29 07/29/17 08:20 9 UNITS Nutrition (Parenteral) 0 ml @ 0 mls/hr TODAY@1600 IV 07/27/17 16:00 07/28/17 15:59 DC 07/27/17 16:14 0 MLS/HR Potassium Chloride 10 meq/ Prmx 100 ml @ 100 mls/hr 1600 ONCE IV 07/27/17 16:00 07/27/17 16:59 DC 07/27/17 17:37 100 MLS/HR Epoetin Mohsen 4000 units/Syringe 0.2 ml @ 1 mls/min TODAY@0800 IV. 07/28/17 08:00 07/28/17 18:00 DC 07/28/17 12:46 1 MLS/MIN Nutrition (Parenteral) 0 ml @ 0 mls/hr TODAY@1600 IV 07/28/17 16:00 07/29/17 15:59 07/28/17 16:22 0 MLS/HR Insulin Aspart (novoLOG ASPART) SLIDING SCALE G... TODAY@0200 SC 07/29/17 02:00 07/29/17 02:01 DC 07/29/17 02:16 7 UNITS Methadone HCl (Dolophine Tab) 20 mg BID PO 07/28/17 21:00 08/08/17 08:59 07/29/17 08:16 20 MG Vancomycin HCl 750 mg/Sodium Chloride 265 ml @ 125 mls/hr TODAY@1600 ONCE IV 07/28/17 16:00 07/28/17 18:07 DC 07/28/17 16:08 125 MLS/HR Subjective Continues to have a recovery from the recent surgery for the jejunal perforation. He appears quite comfortable today. He really offers no new complaints. is also visiting. He has been afebrile. Is been no overt bleeding. Review of Systems: Constitutional: Negative for fever Eyes: Negative for event change of vision ENT: Negative for epistaxis, nasal discharge, sore throat, or deafness Cardiovascular: Negative for chest pain, palpitations, dizziness, diaphoresis Respiratory: Negative for new shortness of breath,hemoptysis, or purulent cough. He states that the shortness of breath that he had had a few days ago is less. Gastrointestinal: Negative for diarrhea, hematemesis, melena, nausea, vomiting , or dyspepsia. He is passing flatus Integumentary (skin): Negative for rash or jaundice discoloration Neurological: Negative for weakness, seizure activity, headache, or dizziness Lymphatic/Hematologic: Negative for petechiae, bleeding or new adenopathy Musculoskeletal: Negative for new joint or back pain Allergic/Immunologic: Negative for unusual rash or pruritis. Vital Signs Vital Signs Past 12 Hours Date Time Temp Pulse Resp B/P (MAP) Pulse Ox O2 Delivery O2 Flow Rate FiO2 07/29/17 11:42 106 07/29/17 08:00 92 Oxymask 6.0 07/29/17 07:58 36.8 103 22 138/69 (92) 92 07/29/17 05:30 96 143/70 07/29/17 04:08 97 BiPAP 8.0 07/29/17 03:40 36.6 96 20 143/70 (94) 92 CPAP 07/29/17 00:38 102 149/71 07/29/17 00:10 36.7 102 20 149/71 (97) 92 CPAP 07/29/17 00:00 97 BiPAP 8.0 Physical Exam Constitutional: vitals are stable. Eyes: Eyes are YSABEL EOMI without conjuctival erythema or icterus. ENT: External examination was negative for masses. Neck: Negative for masses or palpable thyromegaly Respiratory: Lung sounds were generally clear bilaterally Cardiovascular: Heart was RRR without significant murmur, gallops aoe rubs Gastrointestinal: No palpable hepatic or splenomegaly. The abdomen was soft with normal bowel sounds. Midline bandage remains. Incision looks well on its way to healing sutures are in place. Bowel sounds are heard and are felt to be normoactive. Lymphatic system: there was no palpable peripheral lymphadenopathy Musculoskeletal System: The musculoskeletal system seemed concordant with age. Skin: The skin was negative for jaundice. Neurologic exam: The exam was negative for any focal findings. Deep tendon reflexes were equal and symmetrical. Psychiatric exam: Was essentially negative with normal mood and effect. Extremities: negative for edema. Nontender ecchymosis involving the right forearm Laboratory Last 24 Hours Test 07/28/17 16:33 07/28/17 20:25 07/29/17 01:58 07/29/17 05:36 Bedside Glucose 169 mg/dl 207 mg/dl 236 mg/dl White Blood Count 14.67 K/uL Red Blood Count 2.42 M/uL Hemoglobin 7.2 g/dL Hematocrit 22.0 % Mean Corpuscular Volume 90.9 fL Mean Corpuscular Hemoglobin 29.8 pg Mean Corpuscular Hemoglobin Concent 32.7 g/dl RDW Standard Deviation 68.0 fL RDW Coefficient of Variation 22.2 % Platelet Count 119 K/uL Nucleated RBC Absolute Count (auto) 1.47 K/uL Nucleated Red Blood Cells % 10.0 % Platelet Estimate NORMAL Activated Partial Thromboplast Time 66.1 SECONDS Partial Thromboplastin Ratio 2.5 Sodium Level 134 mmol/L Potassium Level 3.6 mmol/L Chloride Level 101 mmol/L Carbon Dioxide Level 25 mmol/L Anion Gap 8.0 mmol/L Blood Urea Nitrogen 100 mg/dl Creatinine 3.71 mg/dl Est Creatinine Clear Calc Drug Dose 21.0 ml/min Estimated GFR () 18.9 Estimated GFR (Non- 16.3 BUN/Creatinine Ratio 27.1 Random Glucose 231 mg/dl Calcium Level 6.9 mg/dl Phosphorus Level 3.1 mg/dl Magnesium Level 2.0 mg/dl Test 07/29/17 06:40 07/29/17 11:02 Bedside Glucose 240 mg/dl 246 mg/dl Assessment & Plan He seems to have made good progress over the past few days. Platelet count is 119,000 showing recovery. I understand another blood transfusion is planned. Little to add from our standpoint at this time. Appreciate everyone's help in his care.
[2017-07-29 12:31] LABS: HEMATOCRIT 21.5 % (42-52); HEMOGLOBIN 7.1 g/dL (14.0-18.0)
--- NOTE | 2017-07-29 13:45 | Pharmacy Progress Note ---
Pharmacy Glycemic Short Note 2 Date of Service Jul 29, 2017. Glycemic and parenteral nutrition consult: ASSESSMENT: 07/29/17 Mr. Christy is now POD #8 s/p ex lap with bowel resection, day #8 of TPN * Surgery has advanced diet again today to full liquid diet * Regarding glycemic control: * Novolog left at [facility] with order placed for 0200 since on TPN. * Carbohydrate ratio tightened past home dosing but this appropriate as the patient is on steroids here. Patient's blood sugars remain elevated which will hopefully decrease once off of the TPN. * Dextrose is decreased in half so will cut insulin in bag by half to 50 units. * Regarding parenteral nutrition: * Macronutrients - reduce by half per Dr Stern * Micronutrients - most electrolytes within normal limits. Continue same electrolytes except eliminate magnesium as patient will not receive dialysis today. 07/28/17 Mr. Christy is now POD #7 s/p ex lap with bowel resection, day #7 of TPN * Surgery has advanced diet yesterday- has taken [place] ice yesterday and tolerated liquid diet today * Regarding glycemic control: * Novolog left at [facility] with order placed for 0200 since on TPN. * Parameters tightened slightly to weight-based stress of 2. Carbohydrate ratio tightened past home dosing but this appropriate as the patient is on steroids here. * Dextrose remains the same in today's bag as yesterday. Continue the same insulin dosing. There was a documented treatment of low blood sugar by second shift nurse. This was when the patient was 67 mg/dL at noon... this may be that the 90 units became too aggressive with this amount of carbohydrates. With the patient starting to eat again, will continue the same insulin amount. * Regarding parenteral nutrition: * Macronutrients - AA and dextrose remain at goal, give fats since Monday * Micronutrients - most electrolytes within normal limits. Patient will receive dialysis today so continue same TPN as expect phosphorus and potassium to drop. PO intake will help to soften the fluctuations. PLAN FOR INPATIENT GLYCEMIC CONTROL: * Continue Lantus 6 units qHS * Continue Novolog ACHS * Continue goal 110-140 * Change CF to 15 * Change CR of 1 unit per 8 gm CHO consumed * Continue insulin in TPN of 50 units PLAN FOR PARENTERAL NUTRITION For day 8 of PN administration, the following will be ordered: Macronutrients Amino acids 60 grams/day Dextrose 125 grams/day Lipids 0 grams/day Micronutrients Sodium acetate 70 mEq Potassium chloride 20 mEq Calcium gluconate 4.5 mEq Magnesium chloride 0 mEq Sodium phosphate 18 mMol Multivitamins 10 mL Trace Elements 1 mL Regular insulin 50 units Total volume 841 mL (minimum) to be infused over 24 hrs will provide 665 kcal/ day Labs, as indicated, will be ordered per protocol Pharmacy will continue to follow and adjust parenteral nutrition orders on a daily basis. Thank you for allowing us to participate in the care of this patient.
[2017-07-29] MEDS ORDERED: LEVALBUTEROL/IPRATROPIUM NEB INH SCH (15:00)
--- NOTE | 2017-07-29 15:11 | Progress Note ---
Subjective Date of Service: Jul 29, 2017. Subjective Pt evaluation today including: conversation w/ patient, physical exam, chart review, lab review, review of studies, review of inpatient medication list Resting comfortably in bed Reports feeling slightly fatigued Fiance at bedside Problem List Medical Problems: (1) Acute dyspnea Status: Acute (2) Chronic kidney disease Status: Acute (3) Failure of outpatient treatment Status: Acute (4) Left arm cellulitis Status: Acute (5) Renal cell carcinoma Status: Acute Review of Systems Constitutional: No fever, No chills, No sweats, No weight loss Respiratory: No cough, No sputum, No wheezing, No shortness of breath Cardiac: No chest pain, No orthopnea, No PND, No edema Abdomen: No pain, No nausea, No vomiting, No diarrhea Musculoskeletal: No joint pain, No muscle pain, No swelling, No calf pain Male : No dysuria, No urinary frequency, No incontinence Neurologic: No memory loss, No paralysis, No weakness, No numbness/tingling Psychiatric: No depression symptoms, No anhedonism, No anxiety, No insomnia Skin: No rash, No itch Objective Vital Signs Date Time Temp Pulse Resp B/P (MAP) Pulse Ox O2 Delivery O2 Flow Rate FiO2 07/29/17 14:33 36.9 106 20 151/68 88 6.0 07/29/17 14:15 37.0 105 22 142/67 90 6.0 07/29/17 12:07 36.5 118 21 142/71 (94) 95 07/29/17 12:00 Oxymask 6.0 07/29/17 11:42 106 07/29/17 08:00 92 Oxymask 6.0 07/29/17 07:58 36.8 103 22 138/69 (92) 92 07/29/17 05:30 96 143/70 07/29/17 04:08 97 BiPAP 8.0 07/29/17 03:40 36.6 96 20 143/70 (94) 92 CPAP 07/29/17 00:38 102 149/71 07/29/17 00:10 36.7 102 20 149/71 (97) 92 CPAP 07/29/17 00:00 97 BiPAP 8.0 07/28/17 22:55 94 9.0 07/28/17 20:56 36.9 95 21 117/68 (84) 95 CPAP 07/28/17 20:00 97 BiPAP 8.0 07/28/17 17:53 92 120/64 07/28/17 16:00 BiPAP 8.0 07/28/17 15:53 36.9 92 18 120/64 (82) 97 Physical Exam General Appearance: WD/WN, no apparent distress Eyes: normal inspection, PERRL, EOMI, sclerae normal Neck: supple, no adenopathy, thyroid normal, no JVD Respiratory/Chest: chest non-tender, lungs clear, + decreased breath sounds, + wheezing Cardiovascular: no edema, no gallop, no JVD, no murmur Abdomen: normal bowel sounds, non tender, soft, no organomegaly Extremities: normal range of motion, non-tender, normal inspection, no pedal edema Neurologic/Psychiatric: no motor/sensory deficits, alert, normal mood/affect, oriented x 3 Skin: normal color, warm/dry, no rash Lymphatic: no adenopathy Laboratory Results Last 24 Hours Test 07/28/17 16:33 07/28/17 20:25 07/29/17 01:58 07/29/17 05:36 Bedside Glucose 169 mg/dl 207 mg/dl 236 mg/dl White Blood Count 14.67 K/uL Red Blood Count 2.42 M/uL Hemoglobin 7.2 g/dL Hematocrit 22.0 % Mean Corpuscular Volume 90.9 fL Mean Corpuscular Hemoglobin 29.8 pg Mean Corpuscular Hemoglobin Concent 32.7 g/dl RDW Standard Deviation 68.0 fL RDW Coefficient of Variation 22.2 % Platelet Count 119 K/uL Nucleated RBC Absolute Count (auto) 1.47 K/uL Nucleated Red Blood Cells % 10.0 % Platelet Estimate NORMAL Activated Partial Thromboplast Time 66.1 SECONDS Partial Thromboplastin Ratio 2.5 Sodium Level 134 mmol/L Potassium Level 3.6 mmol/L Chloride Level 101 mmol/L Carbon Dioxide Level 25 mmol/L Anion Gap 8.0 mmol/L Blood Urea Nitrogen 100 mg/dl Creatinine 3.71 mg/dl Est Creatinine Clear Calc Drug Dose 21.0 ml/min Estimated GFR () 18.9 Estimated GFR (Non- 16.3 BUN/Creatinine Ratio 27.1 Random Glucose 231 mg/dl Calcium Level 6.9 mg/dl Phosphorus Level 3.1 mg/dl Magnesium Level 2.0 mg/dl Test 07/29/17 06:40 07/29/17 11:02 07/29/17 12:02 Bedside Glucose 240 mg/dl 246 mg/dl Hemoglobin 7.1 g/dL Hematocrit 21.5 % Assessment and Plan Mr. Christy is a 61 yo M with PMH of ESRD on HD, RCC, DMII. Admitted for L hand cellulitis having failed outpatient management. Abdominal pain, found to have incidental rectus sheath hematoma, C.diff positive colitis and subsequent bowel perforation on 07/21, now s/p colectomy, anemia, and bilateral pneumonia on imaging. Abdominal pain, c diff colitis, perforated jejunal bowel, s/p colectomy, rectus sheath hematoma: Diarrhea - C.Diff - remains afebrile - C.diff positive - switch to po flagyl in addition, IV vanc for other issue ( hand cellulitis), and may receive some benefit. However, necessary to treat perforation at this time, dialysis will aid the anasarca, and hopefully resumption of oral vanc can be done once diet advanced - Adequate pain control with fentanyl patch 25-50 mcg q4h POD # 8 from small bowel resection due to jejunal diverticular perforation. - Pain controlled on methadone and morphine IV PRN - NGT removed 07/27/17, advanced to clears, advance as tolerated -TPN to resume till 07/30/17 Metastatic Renal cell cancer - Cabozantinib held due to likely inciting his small intestinal inflammation/ perforation - On consulted and agree with recs at this time ESRD HD secondary to RCC/ s/p left nephrectomy - Nephrology Consulted - Receives HD on Tuesdays, and Saturdays - unable to receive dialysis yesterday due to technical problems, US doppler shows sign stenosis. - IJ placed 07/23 to initiate dialysis, Vascular surg consulted for AVF repair - hypocalcemia; Vit D level of 9.4, supplement with ergocalciferol [id number] indefinitely plus daily D3 2000 when patient resumes oral intake - Recheck levels in 12 weeks Left hand cellulitis - persists, stable - ID consulted. 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 - started on methadone, morphine PRN DMII - 7 units of Lantus with sliding scale - BSG AC HS Acute anemia - nephrology -> continue epogen 63072 units and venofer 100mg - transfuse 2 units PRBCS 07/29/17 HTN/hyperlipidemia - asa 81 mg DCd while NPO: if prolonged NPO, consider aspirin suppositories in 48 hours - furosemide 20 IV daily, switch to PO - hydralazine 100 mg tid - amlodipine 10 mg daily - metoprolol 100 mg PO bid - lisinopril 40 mg daily - simvastatin 20 mg moose - I&O and daily weights BPH - continue tamsulosin 0.4 mg (held while in NPO) ESRD Bone Mineral Disease - Continue oral Calcitriol - Continue CaCO3 500 mg with meals DVT Prophylaxis: SCDs Code: Full Continued [facility] stay due to: inadequate oral pain control, other (BiPAP requirement) Discharge planning: other (hope to be able to transfer to rehab when medically stable)
[2017-07-29] MEDS: CEFEPIME IV 500 MG in SYRINGE 0 ML IV SCH (15:38)
[2017-07-29] MEDS: LEVALBUTEROL 0.63MG/3 ML NEB INH SCH ×2 (15:46→18:58)
[2017-07-29] MEDS: IPRATROPIUM BROMIDE NEB SOLN 0.02% 2.5 ML VIAL INH SCH ×2 (15:46→18:58)
[2017-07-29] MEDS ORDERED: CUSTOM CENTRAL PN 1 BAG IV SCH (16:00)
[2017-07-29] MEDS: MoRPHine SULFATE 2 MG/ML CARP IV PRN (16:31)
[2017-07-29] MEDS: HEPARIN 25,000 UNIT/500ML D5W 500 ML IV PRN (19:03)
[2017-07-29] MEDS: METOPROLOL TARTRATE 100 MG TAB PO SCH (20:33)
[2017-07-29] MEDS: INSULIN GLARGINE SOLOSTAR 100 UNITS/ML 3 ML PEN SC SCH (20:36)
[2017-07-30] VITALS (16 sets, daily range): BP systolic 97–137; BP diastolic 59–76; PULSE 87–107; TEMP 36.4–36.9; O2SAT 86–98
[2017-07-30] MEDS: LEVALBUTEROL 0.63MG/3 ML NEB INH SCH ×4 (02:02→19:23)
[2017-07-30] MEDS: IPRATROPIUM BROMIDE NEB SOLN 0.02% 2.5 ML VIAL INH SCH ×4 (02:02→19:23)
[2017-07-30 06:18] LABS: MEAN CORPUSCULAR HGB CONC 33.6 g/dl (32-36)
[2017-07-30 06:38] LABS: PTT PATIENT 62.1 SECONDS (21.0-31.0)
[2017-07-30 06:45] LABS: HEMATOCRIT 27.1 % (42-52); HEMOGLOBIN 9.1 g/dL (14.0-18.0); MEAN CELL VOLUME 87.1 fL (80-100); MEAN CORPUSCULAR HEMOGLOBIN 29.3 pg (25-34); PLATELET COUNT 122 K/uL (130-400); RED CELL DISTRIBUTION WIDTH CV 19.7 % (11.5-14.5); RED CELL DISTRIBUTION WIDTH SD 56.1 fL (36.4-46.3); WHITE BLOOD COUNT 14.91 K/uL (4.8-10.8)
[2017-07-30 07:13] LABS: ALBUMIN 1.3 gm/dl (3.4-5.0); CALCIUM 7.4 mg/dl (8.5-10.1); CREATININE 4.48 mg/dl (0.60-1.40); PHOSPHORUS 5.4 mg/dl (2.5-4.9); POTASSIUM 4.3 mmol/L (3.5-5.1)
[2017-07-30] MEDS: CHECK FENTANYL PATCH PLACEMENT SCH ×3 (08:30→23:22)
[2017-07-30] MEDS: METRONIDAZOLE 500MG / NSS IV SCH ×2 (08:31→15:02)
[2017-07-30] MEDS: FUROSEMIDE INJ 20 MG in SYRINGE 0 ML IV SCH (08:32)
[2017-07-30] MEDS: METHYLPREDNISOLONE IV 40 MG in SYRINGE 0 ML IV SCH (08:32)
[2017-07-30] MEDS: HydrALAZINE HCL 20 MG/ML VIAL IV. SCH (08:33)
[2017-07-30] MEDS: METHADONE HCL 10 MG TAB PO SCH ×2 (08:33→20:23)
[2017-07-30] MEDS: LISINOPRIL 40 MG TAB PO SCH (08:34)
[2017-07-30] MEDS: AMLODIPINE BESYLATE 5 MG TAB PO SCH (08:34)
[2017-07-30] MEDS: LACTOBACILLUS ACIDOPHILUS (FLORANEX) TAB PO SCH ×3 (08:34→20:24)
[2017-07-30] MEDS: METOPROLOL TARTRATE 100 MG TAB PO SCH ×2 (08:39→20:25)
[2017-07-30] MEDS: MoRPHine SULFATE 2 MG/ML CARP IV PRN ×3 (08:52→17:57)
[2017-07-30] MEDS: INSULIN ASPART 100 UNITS/ML 3 ML PEN SC SCH ×4 (08:54→20:40)
--- NOTE | 2017-07-30 09:05 | Surgery Progress Note ---
Surgery Progress Note Date of Service Jul 30, 2017. Subjective Post OP Day: 9 + feeling well, + flatus, + pain controlled, No complaints, No bowel movement, No nausea, No vomiting Patient sitting up in bed for examination- no new concerns overnight. Reports that he is tolerating full liquid diet. Objective Vital Signs: Date Time Temp Pulse Resp B/P (MAP) Pulse Ox O2 Delivery O2 Flow Rate FiO2 07/30/17 08:04 36.8 107 18 122/68 (86) 97 07/30/17 04:20 36.4 101 18 130/71 (90) 91 Oxymask 6.0 07/30/17 04:08 97 BiPAP 8.0 07/30/17 02:04 87 18 91 Mask 10.0 07/30/17 00:31 97 BiPAP 8.0 07/29/17 23:53 36.5 105 18 126/69 (88) 94 Oxymask 6.0 07/29/17 20:51 38.6 111 18 136/62 90 5.0 07/29/17 20:00 97 BiPAP 8.0 07/29/17 19:26 36.8 111 16 136/65 90 5.0 07/29/17 19:20 36.6 112 19 127/63 (84) 90 Oxymask 6.0 07/29/17 19:01 107 20 93 Mask 8.0 07/29/17 18:26 37.0 99 20 134/65 87 6.0 07/29/17 18:08 36.9 102 20 141/65 87 6.0 07/29/17 17:39 36.9 105 20 147/71 91 6.0 07/29/17 17:11 108 20 146/66 88 6.0 07/29/17 16:26 104 20 143/67 89 6.0 07/29/17 16:00 Oxymask 6.0 07/29/17 15:50 108 20 87 Mask 5.0 07/29/17 15:15 102 20 146/68 88 6.0 07/29/17 14:45 104 20 152/69 88 6.0 07/29/17 14:33 36.9 106 20 151/68 88 6.0 07/29/17 14:15 37.0 105 22 142/67 90 6.0 07/29/17 12:07 36.5 118 21 142/71 (94) 95 07/29/17 12:00 Oxymask 6.0 07/29/17 11:42 106 General Appearance: WD/WN, no apparent distress Head: normocephalic, atraumatic Abdomen: soft, + pertinent finding (surgical dressing removed- incision healing well, no signs of infection. Mild tenderness at incision site. ) Incision(s): clean, dry, intact, no erythema, no drainage Laboratory Results: Results Past 24 Hours Test 07/29/17 11:02 07/29/17 12:02 07/29/17 16:33 07/29/17 20:27 Range/Units Bedside Glucose 246 284 245 70-99 mg/dl Hemoglobin 7.1 14.0-18.0 g/dL Hematocrit 21.5 42-52 % Test 07/30/17 06:05 07/30/17 06:46 Range/Units White Blood Count 14.91 4.8-10.8 K/uL Red Blood Count 3.11 4.7-6.1 M/uL Hemoglobin 9.1 14.0-18.0 g/dL Hematocrit 27.1 42-52 % Mean Corpuscular Volume 87.1 80-100 fL Mean Corpuscular Hemoglobin 29.3 25-34 pg Mean Corpuscular Hemoglobin Concent 33.6 32-36 g/dl RDW Standard Deviation 56.1 36.4-46.3 fL RDW Coefficient of Variation 19.7 11.5-14.5 % Platelet Count 122 130-400 K/uL Mean Platelet Volume 12.0 7.4-10.4 fL Nucleated RBC Absolute Count (auto) 1.20 0-0 K/uL Nucleated Red Blood Cells % 8.0 % Platelet Estimate DECREASED Activated Partial Thromboplast Time 62.1 21.0-31.0 SECONDS Partial Thromboplastin Ratio 2.4 Sodium Level 133 136-145 mmol/L Potassium Level 4.3 3.5-5.1 mmol/L Chloride Level 99 98-107 mmol/L Carbon Dioxide Level 20 21-32 mmol/L Anion Gap 14.0 3-11 mmol/L Blood Urea Nitrogen 122 7-18 mg/dl Creatinine 4.48 0.60-1.40 mg/dl Est Creatinine Clear Calc Drug Dose 17.4 ml/min Estimated GFR () 15.1 Estimated GFR (Non- 13.0 BUN/Creatinine Ratio 26.6 10-20 Random Glucose 217 70-99 mg/dl Calcium Level 7.4 8.5-10.1 mg/dl Phosphorus Level 5.4 2.5-4.9 mg/dl Magnesium Level 1.9 1.8-2.4 mg/dl Albumin 1.3 3.4-5.0 gm/dl Random Vancomycin Level 16.6 mcg/ml Bedside Glucose 227 70-99 mg/dl Assessment & Plan POD #9 s/p exploratory laparotomy, small bowel resection with primary anastomosis Bipap management per pulmonary team Pain remains controlled. Pain control per primary team. Antibiotics per Infectious Disease. Patient interested in advancing diet to regular diet- will advance patient to regular diet. TPN completed today. Bowel function yet to return- recommend stool softener. General Surgery will continue to follow. POD # 8 s/p exploratory laparotomy, small bowel resection with primary anastomosis Bipap- managment per pulmonary team. Pain controlled- pain control per primary team. Antibiotics per Infectious Disease. Will advance diet to full liquids today- will see how he tolerates. Recommend calorie counts- Pharmacy managing TPN. WBC 14.67 today. Incision healing well, mario in place- no signs of infection. Will continue to follow.
[2017-07-30] MEDS ORDERED: NURSING VERBAL MED ORDER ONE ×2 (10:00→15:45)
--- NOTE | 2017-07-30 11:25 | Nephrology Progress Note ---
Nephrology Progress Note Date of Service Jul 30, 2017. Chief Complaint ESRD Subjective No acute events overnight. Padilla was resting comfortably in bed this morning. O2 6L/min per facemask. He continues to report gradual improvement in his breathing. Padilla remains weak. Abdomen is slightly more distended. He states that is tolerating liquids but appetite is very poor. He has had some more pain at the abdominal incision and he did have mild nausea. He has not had a bowel movement since yesterday but he is passing flatus. Pain is reasonably controlled. Review of Systems A complete review of systems was performed. Pertinent positives are noted above. All other systems are negative. Vital Signs Last 8 Hrs Date Time Temp Pulse Resp B/P (MAP) Pulse Ox O2 Delivery O2 Flow Rate FiO2 07/30/17 10:50 101 137/76 (96) 07/30/17 08:04 36.8 107 18 122/68 (86) 97 07/30/17 08:00 Oxymask 6.0 07/30/17 07:27 96 18 86 Mask 8.0 07/30/17 04:20 36.4 101 18 130/71 (90) 91 Oxymask 6.0 07/30/17 04:08 97 BiPAP 8.0 Last Recorded Weight Weight (Kilograms): 84.000 Physical Exam General Appearance: no apparent distress, + pertinent finding (generalized weakness) Head: normocephalic, atraumatic Eyes: normal inspection, sclerae normal ENT: normal ENT inspection, pharynx normal, + pertinent finding (oral mucosa dry) Neck: supple, no JVD Respiratory/Chest: + decreased breath sounds, + rales Cardiovascular: no gallop, + tachycardia Abdomen/GI: + distended, + pertinent finding (appropriately tender) Extremities/Musculoskelatal: normal inspection, no pedal edema, + pertinent finding (LUE AVF with thrill and bruit) Neurologic/Psych: alert, normal mood/affect Family History Cervical cancer Diabetes mellitus Heart disease Hypertension Myocardial infarction Pancreatic cancer Prostate cancer Negative for CKD/ESRD Social History Smokeless Tobacco Use: No Alcohol Use: none Drug Use: none Marital Status: single Housing Status: lives alone Occupation: disabled Single, retired. Formerly worked for [employer]. Never a smoker. Laboratory Results Past 24 Hours 07/29/17 12:02 07/30/17 06:05 07/30/17 06:05 Test 1/6/18 16:33 07/29/17 20:27 07/30/17 06:05 07/30/17 06:46 Bedside Glucose 284 mg/dl (70-99) 245 mg/dl (70-99) 227 mg/dl (70-99) Red Blood Count 3.11 M/uL (4.7-6.1) Mean Corpuscular Volume 87.1 fL (80-100) Mean Corpuscular Hemoglobin 29.3 pg (25-34) Mean Corpuscular Hemoglobin Concent 33.6 g/dl (32-36) RDW Standard Deviation 56.1 fL (36.4-46.3) RDW Coefficient of Variation 19.7 % (11.5-14.5) Mean Platelet Volume 12.0 fL (7.4-10.4) Nucleated RBC Absolute Count (auto) 1.20 K/uL (0-0) Nucleated Red Blood Cells % 8.0 % Platelet Estimate DECREASED Activated Partial Thromboplast Time 62.1 SECONDS (21.0-31.0) Partial Thromboplastin Ratio 2.4 Anion Gap 14.0 mmol/L (3-11) Est Creatinine Clear Calc Drug Dose 17.4 ml/min Estimated GFR () 15.1 Estimated GFR (Non- 13.0 BUN/Creatinine Ratio 26.6 (10-20) Calcium Level 7.4 mg/dl (8.5-10.1) Phosphorus Level 5.4 mg/dl (2.5-4.9) Magnesium Level 1.9 mg/dl (1.8-2.4) Albumin 1.3 gm/dl (3.4-5.0) Random Vancomycin Level 16.6 mcg/ml Allergies Coded Allergies: Iodinated Diagnostic Agents (Verified Allergy, Unknown, oil based, severe headaches, 06/20/17) EVENT OCCURED IN 1971, PT STATES HE HAS HAD 3 DIFFERENT WATER BASED IVP DYES WITH NO ISSUE Medications Current Inpatient Medications Medications (Trade) Dose Ordered Sig/Edward Route Start Time Stop Time Status Last Admin Dose Admin Lactobacillus Acidophilus (Floranex Tab) 2 tab TID PO 07/06/17 09:00 08/05/17 08:59 07/30/17 08:34 2 TAB Lisinopril (Zestril Tab) 40 mg DAILY PO 07/06/17 09:00 1/13/18 08:59 07/30/17 08:34 40 MG Miscellaneous Information (Check Fentanyl Patch Placement) 1 ea QS N/A 07/06/17 08:00 08/05/17 07:59 07/30/17 08:30 1 EA Glucose (Glucose 40% Gel) 15-30 GRAMS 15 GRAMS... UD PRN PO 07/06/17 04:15 08/05/17 04:14 Glucose (Glucose Chew Tab) 4-8 Tablets 4 Tabl... UD PRN PO 07/06/17 04:15 08/05/17 04:14 Dextrose (Dextrose 50% 50ML Syringe) 25-50ML OF 50% DW IV FOR... UD PRN IV 07/06/17 04:15 08/05/17 04:14 07/06/17 05:40 25 ML Glucagon (Glucagon Inj) 1 mg UD PRN SQ 07/06/17 04:15 08/05/17 04:14 Heparin Sodium (Porcine) (Heparin 100 Unit/ml 5ml Flush) 5 ml PRN PRN IV 07/07/17 02:45 08/06/17 02:44 Future hold 07/26/17 01:15 5 ML Ondansetron HCl (Zofran Inj) 4 mg Q4H PRN IV 07/11/17 03:00 08/10/17 02:59 07/17/17 21:50 4 MG Prochlorperazine Edisylate 5 mg/ Syringe 5 ml @ 5 mls/min Q4H PRN IV 07/11/17 14:00 08/10/17 13:59 Lactulose (Chronulac Syrup) 30 gm Q4H PRN PO 07/11/17 16:45 08/10/17 16:44 Miscellaneous (Fentanyl Patch Remove & Waste) 1 ea Q3D@0859 N/A 07/22/17 08:59 08/21/17 08:58 07/28/17 09:18 1 EA Fentanyl (Duragesic Patch) 25 mcg Q3D@0900 TD 07/22/17 09:00 08/05/17 08:59 07/28/17 09:01 25 MCG Insulin Glargine (Lantus Solostar Pen) 6 units HS SC 07/20/17 21:00 08/19/17 20:59 07/29/17 20:36 6 UNITS Ergocalciferol (Vitamin D Cap) 50,000 interunit Q7D@0900 PO 07/20/17 09:00 08/19/17 08:59 07/20/17 09:32 50,000 INTERUNIT Vancomycin HCl (Consult) 1 [facility] PRN N/A 07/21/17 16:00 08/20/17 15:59 Miscellaneous Information (Pharmacy Tpn/ Ppn Consult Active) 1 [facility] PRN N/A 07/21/17 17:00 07/30/17 15:59 Hydralazine HCl (HydrALAZINE INJ) 5 mg Q4 PRN IV. 07/21/17 17:15 08/20/17 17:14 Future Hold 07/25/17 23:45 5 MG Furosemide 20 mg/ Syringe 2 ml @ 4 mls/min QAM IV 07/22/17 09:00 08/21/17 08:59 07/30/17 08:32 4 MLS/MIN Hydralazine HCl (HydrALAZINE INJ) 5 mg TID IV. 07/21/17 21:00 08/20/17 20:59 Future Hold 07/30/17 08:33 5 MG Methylprednisolone Sodium Succinate 40 mg/Syringe 0.64 ml @ 1.5 mls/min DAILY IV 07/22/17 09:00 08/21/17 08:59 07/30/17 08:32 1.5 MLS/MIN Fentanyl Citrate (Fentanyl Inj) Fentanyl 25-50 mcg... Q4H PRN IV 07/21/17 20:45 08/04/17 20:44 07/24/17 05:47 50 MCG Dextrose 1,000 ml @ 0 mls/hr Q0M PRN IV 07/22/17 16:00 07/30/17 15:59 Cefepime HCl (Consult) 1 [facility] PRN N/A 07/22/17 11:30 08/21/17 11:29 Cefepime HCl 500 mg/Syringe 5.5 ml @ 5.5 mls/min DAILY@1600 IV 07/23/17 16:00 08/02/17 15:59 07/29/17 15:38 5.5 MLS/MIN Miscellaneous Information (Consult Glycemic Management Pharmacy) 1 ea UD PRN N/A 07/23/17 13:14 08/22/17 13:13 Morphine Sulfate (MoRPHine SULFATE INJ) 2 mg Q3RWA PRN IV 07/24/17 11:30 08/07/17 11:29 07/30/17 08:52 2 MG Heparin Sodium/ Dextrose 500 ml @ 13 mls/hr Q24H PRN IV 07/26/17 12:15 08/25/17 12:14 07/29/17 19:03 13 MLS/HR Metronidazole 500 mg/Prmx 100 ml @ 100 mls/hr Q8H IV 07/26/17 15:00 08/05/17 14:59 07/30/17 08:31 100 MLS/HR Caspofungin 50 mg/ Sodium Chloride 260 ml @ 250 mls/hr Q24H IV 07/28/17 12:00 08/06/17 11:59 07/29/17 11:42 250 MLS/HR Insulin Aspart (novoLOG ASPART) SLIDING SCALE G... ACHS SC 07/27/17 11:30 08/26/17 11:29 07/30/17 08:54 6 UNITS Methadone HCl (Dolophine Tab) 20 mg BID PO 07/28/17 21:00 08/08/17 08:59 07/30/17 08:33 20 MG Nutrition (Parenteral) 0 ml @ 0 mls/hr TODAY@1600 IV 07/29/17 16:00 07/30/17 15:59 07/29/17 15:37 0 MLS/HR Ipratropium [place] (Atrovent 0.02% 0.5MG/2.5ML Neb) 0.5 mg Q6R INH 07/29/17 09:00 08/28/17 08:59 07/30/17 07:27 0.5 MG Levalbuterol (Xopenex 0.63 Mg/ 3 Ml Neb) 0.63 mg Q6R INH 07/29/17 09:00 08/28/17 08:59 07/30/17 07:27 0.63 MG Metoprolol Tartrate (Lopressor Tab) 100 mg BID PO 07/29/17 21:00 08/28/17 20:59 07/30/17 08:39 100 MG Amlodipine Besylate (Norvasc Tab) 10 mg QAM PO 07/30/17 09:00 08/29/17 08:59 07/30/17 08:34 10 MG Impression (1) Cellulitis of left hand (2) ESRD (end stage renal disease) on dialysis (3) Renal cell carcinoma (4) Anemia (5) Diabetes type 2, controlled Mr. Christy has ESRD and metastatic RCC. He underwent left nephrectomy in 2016. Patient did not tolerate Sutent due to high grade proteinuria; Opdivo caused arthralgia, colitis and possible pneumonitis. He was most recently treated w/ Cabometyx. This was complicated by abdominal wall hematoma a intestinal perforation. 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 Mr. Christy was admitted with persistent soft tissue infection of the left hand. Patient tested positive for C. Difficile colitis. He has had a prolonged and complicated hospital course. On 07/21 Mr. Christy was diagnosed with intestinal perforation and required emergency laparotomy. 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 Partial colectomy w/ reanastomosis was completed Mr. Christy's dialysis was complicated by prolonged bleeding from the AVF following treatment. 07/23 duplex study demonstrated high grade venous outflow stenosis. Fistulogram with coil embolization completed 07/25/16. Mr. Christy developed acute hypoxic respiratory failure and respiratory distress requiring NIPPV. Heparin gtt started for suspected PE. Recommendations END STAGE RENAL DISEASE: -- HD MWF schedule -- BP and volume status are currently appropriate -- Metabolic profile within normal limits -- Protect LUE AVF ANEMIA: -- IDALIA w/ HD treatments -- PRBC transfusion provided yesterday with good response -- Discussed with hematology yesterday -- Agree with transfusion support to keep Hgb ~8 HYPERTENSION: -- Blood pressure is currently well controlled. Continue current antihypertensive regimen. No change at present. RENAL CELL CA: -- Treatment on hold due to acute comorbid conditions CKD-BMD: -- Calcitriol and CaCO3 on hold due to recent abdominal surgery ID: -- Medications appropriate for IHD ILD/SURFACE LOGGING SYSTEMS LOGGER: -- Remains on heparin gtt for possible PE
--- NOTE | 2017-07-30 12:09 | Progress Note ---
Subjective Date of Service: Jul 30, 2017. Subjective Pt evaluation today including: conversation w/ patient, physical exam, chart review, lab review, review of studies, conversation w/ market consultant, review of inpatient medication list Pt resting comfortably in bed No chest pain or shortness of breath Reports improvement in swelling of both hands Completed transfusion 07/29/17 for 2 units PRBCs Problem List Medical Problems: (1) Acute dyspnea Status: Acute (2) Chronic kidney disease Status: Acute (3) Failure of outpatient treatment Status: Acute (4) Left arm cellulitis Status: Acute (5) Renal cell carcinoma Status: Acute Review of Systems Constitutional: No fever, No chills, No sweats, No weight loss, No weakness ENT: No hearing loss, No unusual epistaxis, No nasal symptoms, No sore throat, No tinnitus Respiratory: No cough, No sputum, No wheezing, No shortness of breath, No dyspnea on exertion, No dyspnea at rest Cardiac: + edema, No chest pain, No orthopnea, No PND, No claudication Abdomen: No pain, No nausea, No vomiting, No diarrhea, No constipation Musculoskeletal: No joint pain, No muscle pain, No swelling, No calf pain Male : No dysuria, No urinary frequency, No incontinence, No slowing stream Neurologic: No memory loss, No paralysis, No weakness, No numbness/tingling Psychiatric: No depression symptoms, No anhedonism, No anxiety, No insomnia Endo: No fatigue, No excessive thirst Skin: No rash, No itch Objective Vital Signs Date Time Temp Pulse Resp B/P (MAP) Pulse Ox O2 Delivery O2 Flow Rate FiO2 07/30/17 10:50 101 137/76 (96) 07/30/17 08:04 36.8 107 18 122/68 (86) 97 07/30/17 08:00 Oxymask 6.0 07/30/17 07:27 96 18 86 Mask 8.0 07/30/17 04:20 36.4 101 18 130/71 (90) 91 Oxymask 6.0 07/30/17 04:08 97 BiPAP 8.0 07/30/17 02:04 87 18 91 Mask 10.0 07/30/17 00:31 97 BiPAP 8.0 07/29/17 23:53 36.5 105 18 126/69 (88) 94 Oxymask 6.0 07/29/17 20:51 38.6 111 18 136/62 90 5.0 07/29/17 20:00 97 BiPAP 8.0 07/29/17 19:26 36.8 111 16 136/65 90 5.0 07/29/17 19:20 36.6 112 19 127/63 (84) 90 Oxymask 6.0 07/29/17 19:01 107 20 93 Mask 8.0 07/29/17 18:26 37.0 99 20 134/65 87 6.0 07/29/17 18:08 36.9 102 20 141/65 87 6.0 07/29/17 17:39 36.9 105 20 147/71 91 6.0 07/29/17 17:11 108 20 146/66 88 6.0 07/29/17 16:26 104 20 143/67 89 6.0 07/29/17 16:00 Oxymask 6.0 07/29/17 15:50 108 20 87 Mask 5.0 07/29/17 15:15 102 20 146/68 88 6.0 07/29/17 14:45 104 20 152/69 88 6.0 07/29/17 14:33 36.9 106 20 151/68 88 6.0 07/29/17 14:15 37.0 105 22 142/67 90 6.0 07/29/17 12:07 36.5 118 21 142/71 (94) 95 07/29/17 12:00 Oxymask 6.0 07/29/17 11:42 106 Physical Exam General Appearance: WD/WN, no apparent distress Eyes: normal inspection, PERRL, EOMI, sclerae normal Neck: supple, no adenopathy, thyroid normal, no JVD Respiratory/Chest: chest non-tender, lungs clear, normal breath sounds, no respiratory distress Cardiovascular: no edema, no gallop, no JVD, + tachycardia Abdomen: normal bowel sounds, non tender, soft, no organomegaly Extremities: normal range of motion, non-tender, no pedal edema, + pedal edema Neurologic/Psychiatric: no motor/sensory deficits, alert, normal mood/affect, oriented x 3 Skin: normal color, warm/dry, no rash Lymphatic: no adenopathy Laboratory Results Last 24 Hours Test 07/29/17 12:02 07/29/17 16:33 07/29/17 20:27 07/30/17 06:05 Hemoglobin 7.1 g/dL 9.1 g/dL Hematocrit 21.5 % 27.1 % Bedside Glucose 284 mg/dl 245 mg/dl White Blood Count 14.91 K/uL Red Blood Count 3.11 M/uL Mean Corpuscular Volume 87.1 fL Mean Corpuscular Hemoglobin 29.3 pg Mean Corpuscular Hemoglobin Concent 33.6 g/dl RDW Standard Deviation 56.1 fL RDW Coefficient of Variation 19.7 % Platelet Count 122 K/uL Mean Platelet Volume 12.0 fL Nucleated RBC Absolute Count (auto) 1.20 K/uL Nucleated Red Blood Cells % 8.0 % Platelet Estimate DECREASED Activated Partial Thromboplast Time 62.1 SECONDS Partial Thromboplastin Ratio 2.4 Sodium Level 133 mmol/L Potassium Level 4.3 mmol/L Chloride Level 99 mmol/L Carbon Dioxide Level 20 mmol/L Anion Gap 14.0 mmol/L Blood Urea Nitrogen 122 mg/dl Creatinine 4.48 mg/dl Est Creatinine Clear Calc Drug Dose 17.4 ml/min Estimated GFR () 15.1 Estimated GFR (Non- 13.0 BUN/Creatinine Ratio 26.6 Random Glucose 217 mg/dl Calcium Level 7.4 mg/dl Phosphorus Level 5.4 mg/dl Magnesium Level 1.9 mg/dl Albumin 1.3 gm/dl Random Vancomycin Level 16.6 mcg/ml Test 07/30/17 06:46 Bedside Glucose 227 mg/dl Assessment and Plan Mr. Christy is a 61 yo M with PMH of ESRD on HD, RCC, DMII. Admitted for L hand cellulitis having failed outpatient management. Abdominal pain, found to have incidental rectus sheath hematoma, C.diff positive colitis and subsequent bowel perforation on 07/21, now s/p colectomy, anemia, and bilateral pneumonia on imaging. Abdominal pain, c diff colitis, perforated jejunal bowel (suspected to result from chemo regiemn), s/p colectomy, rectus sheath hematoma: POD # 9 from small bowel resection due to jejunal diverticular perforation, initially on TPN which was discontinued on 07/29/17 Underlying severe protein malnutrition, albumin 1.3 Diarrhea - C.Diff + 07/12/17 - Completed course of 9 days of PO vancomyin in addition to IV vancomycin (since pt was NPO due to colectomy for bowel perforation) C. glabratum growth, ID rec caspofungin, will continue x 10 days (last day ) Pain controlled on methadone and morphine IV PRN Metastatic Renal cell cancer Cabozantinib held due to likely inciting his small intestinal inflammation/ perforation Oncology consulted and agree with recs to stop treatments ESRD HD secondary to RCC/ s/p left nephrectomy Nephrology Consulted - Receives HD on Tuesdays, and Saturdays, US doppler 07/23 determined stenosis. - IJ placed 07/23 to initiate dialysis, Vascular surg consulted for AVF repair - hypocalcemia; Vit D level of 9.4, supplement with ergocalciferol 49326 q7d indefinitely plus daily D3 1999 when patient resumes oral intake - Recheck levels in 12 weeks Left hand cellulitis - resolving, stable - Initial MRI did not determine any osteomyelitis - ID consulted. Recommendations: - Treated initially with ertapenem/daptomycin then transitioned to cefepime - consider repeat MRI for osteomyelitis of 4th metacarpal if worsening SOB, hypoxia - pulmonary edema vs pneumonitis - possible cryptogenic organizing pneumonia/drug related pneumonitis - continue O2 supplementation to maintain SaO2 >92%, wean to 3L oxygen not attempted due to patient sats down to 88 on ambulation - started on heparin drip 07/26 for presumed PE, unstable for VQ scan and likely will be inaccurate study due to effusions - CTA 07/30/17 negative for PE, thus heparin drip stopped, however large right sided pleural effusion, thoracentesis completed 07/30/17 Chronic Pain. - continued on methadone, fentanyl and morphine PRN DMII - 7 units of Lantus with sliding scale - BSG AC HS Acute anemia - nephrology -> continue epogen 75856 units and venofer 100mg - transfuse 2 units PRBCS 07/29/17, hg stable at this time HTN/hyperlipidemia, stable at this time - furosemide 20 IV daily, switch to PO - amlodipine 10 mg daily - metoprolol 100 mg PO bid - lisinopril 40 mg daily - simvastatin 20 mg moose - I&O and daily weights BPH - Continue tamsulosin 0.4 mg PO daily ESRD Bone Mineral Disease - Continue oral calcitriol DVT Prophylaxis: SCDs only FULL CODE DISPO: Cont PT/OT, nutritional support, poor prognosis Continued [facility] stay due to: inadequate oral pain control, other (BiPAP requirement) Discharge planning: other (hope to be able to transfer to rehab when medically stable)
[2017-07-30] MEDS: CASPOFUNGIN INJ 50 MG in SODIUM CHLORIDE 0.9% 250ML 250 ML IV SCH (12:18)
[2017-07-30] MEDS ORDERED: OPTIRAY 320 IV PRN (13:30)
[2017-07-30] MEDS ORDERED: DiphenhydrAMINE HCL 50 MG/ML VIAL IV PRN (13:30)
[2017-07-30] MEDS ORDERED: DiphenhydrAMINE INJ 50 MG in SYRINGE 0 ML IV SCH (13:30)
[2017-07-30] MEDS ORDERED: DiphenhydrAMINE HCL 50 MG/ML VIAL IV ONE (13:45)
[2017-07-30] MEDS ORDERED: METHYLPREDNISOLONE IV 40 MG in SYRINGE 0 ML IV ONE (13:45)
--- NOTE | 2017-07-30 13:45 | Pulmonology Progress Note ---
Pulmonary Progress Note Date of Service Jul 30, 2017. Attending Dr. Clark Subjective Patient seen and examined at bedside. He is feeling better from a respiratory standpoint. He denies any shortness of breath or chest pain. He has mild abdominal pain. Objective Vital signs reviewed. Tm 36.8, BP 122/68-137/76, P 8727, RR 18, SaO2 86-98 % , FiO2 6-12 L/m His cumulative balance is about 3800 mL positive General: Patient is awake, alert, cooperative, and in no acute distress. On BIPAP. Head: Normocephalic, Atraumatic. ENT: PERRLA, No discharge, EOMI, Sclera normal Neck: Normal ROM. Trachea midline. No stridor, Respiratory/Chest: Mild decrease in breath sounds b/l. No respiratory distress. No accessory muscle use. Left tunneled catheter in place. Cardiovascular: Regular rate and rhythm. No murmur appreciate. Normal S1/S2. Abdomen: Mild tenderness to palpation. Normal bowel sounds hear throughout. No guarding. Back: Normal inspection. Extremities: Normal ROM, trace edema bilaterally in upper and lower extremities , no cyanosis. Ecchymosis of RUE Neuro: Alert, Oriented x 3. CN II-XII grossly intact. Sensation and motor function grossly intact. Psych: Mood and affect are flat Labs reviewed. White blood cell count 14, hemoglobin 9.1, platelet count 122 Na 133, BUN 122, creatinine 4.48., Albumin 1.3, CRP 11.2 ABG 7.41/.3% on 5 L BiPAP 14/8. Gram stain peritoneal fluid 07/21/2017--dc glabrata C. difficile toxin PCR 07/12/2017-positive for c.diff toxin B Imaging reviewed. Medications reviewed. Assessment & Plan Acute Hypoxic Respiratory Failure Right sided pleural effusion versus rounded atelectasis Bilateral lung opacities Renal Cell Carcinoma CKD on hemodialysis Possible Cryptogenic Organizing Pneumonia Fungal peritonitis Ruptured viscous s/p bowel resection Rectal sheath hematoma C. difficile infection Patient has had a complicated course. He is still in acute hypoxic respiratory failure that is multifactorial in nature. He is still requiring increased O2, now on between 6-12 L/m oxygen mask and saturating in the low 90s. No acute respiratory distress or use of muscles of respiration. Recommendations Continue his supplemental oxygen to maintain SaO2 above 92%. Taper as tolerated Continue with BIPAP when necessary. Patient is requesting to have BiPAP at bedside for dyspnea. Continue with antibiotics per ID recommendations. Continue with Solumedrol. Can likely switch to prednisone in AM and continue with slow taper over the next several weeks Continue with nebulizer prn. Continue dialysis and lasix per nephrology recommendations. Continue heparin drip for presumed PE, will order CT chest today to rule out PE , if negative will discontinue. I have ordered extra dose of solumedrol and benadryl prior to exam for contrast allergy Lower extremity ultrasound --negative for DVT Continue with adequate pain control and incentive spirometry Consider albumin for hypoalbuminia. Pulmonary will continue to follow. Data Medications: Current Inpatient Medications Medications (Trade) Dose Ordered Sig/Edward Route Start Time Stop Time Status Last Admin Dose Admin Lactobacillus Acidophilus (Floranex Tab) 2 tab TID PO 07/06/17 09:00 08/05/17 08:59 07/30/17 08:34 2 TAB Lisinopril (Zestril Tab) 40 mg DAILY PO 07/06/17 09:00 08/05/17 08:59 07/30/17 08:34 40 MG Miscellaneous Information (Check Fentanyl Patch Placement) 1 ea QS N/A 07/06/17 08:00 08/05/17 07:59 07/30/17 08:30 1 EA Glucose (Glucose 40% Gel) 15-30 GRAMS 15 GRAMS... UD PRN PO 07/06/17 04:15 08/05/17 04:14 Glucose (Glucose Chew Tab) 4-8 Tablets 4 Tabl... UD PRN PO 07/06/17 04:15 08/05/17 04:14 Dextrose (Dextrose 50% 50ML Syringe) 25-50ML OF 50% DW IV FOR... UD PRN IV 07/06/17 04:15 08/05/17 04:14 07/06/17 05:40 25 ML Glucagon (Glucagon Inj) 1 mg UD PRN SQ 07/06/17 04:15 08/05/17 04:14 Heparin Sodium (Porcine) (Heparin 100 Unit/ml 5ml Flush) 5 ml PRN PRN IV 07/07/17 02:45 08/06/17 02:44 Future hold 07/26/17 01:15 5 ML Ondansetron HCl (Zofran Inj) 4 mg Q4H PRN IV 07/11/17 03:00 08/10/17 02:59 07/17/17 21:50 4 MG Prochlorperazine Edisylate 5 mg/ Syringe 5 ml @ 5 mls/min Q4H PRN IV 07/11/17 14:00 08/10/17 13:59 Lactulose (Chronulac Syrup) 30 gm Q4H PRN PO 07/11/17 16:45 08/10/17 16:44 Miscellaneous (Fentanyl Patch Remove & Waste) 1 ea Q3D@0859 N/A 07/22/17 08:59 08/21/17 08:58 07/28/17 09:18 1 EA Fentanyl (Duragesic Patch) 25 mcg Q3D@0900 TD 07/22/17 09:00 08/05/17 08:59 07/28/17 09:01 25 MCG Insulin Glargine (Lantus Solostar Pen) 6 units HS SC 07/20/17 21:00 08/19/17 20:59 07/29/17 20:36 6 UNITS Ergocalciferol (Vitamin D Cap) 50,000 interunit Q7D@0900 PO 07/20/17 09:00 08/19/17 08:59 07/20/17 09:32 50,000 INTERUNIT Vancomycin HCl (Consult) 1 ea UD PRN N/A 07/21/17 16:00 08/20/17 15:59 Miscellaneous Information (Pharmacy Tpn/ Ppn Consult Active) 1 ea UD PRN N/A 07/21/17 17:00 07/30/17 15:59 Hydralazine HCl (HydrALAZINE INJ) 5 mg Q4 PRN IV. 07/21/17 17:15 08/20/17 17:14 Future Hold 07/25/17 23:45 5 MG Furosemide 20 mg/ Syringe 2 ml @ 4 mls/min QAM IV 07/22/17 09:00 08/21/17 08:59 07/30/17 08:32 4 MLS/MIN Hydralazine HCl (HydrALAZINE INJ) 5 mg TID IV. 07/21/17 21:00 08/20/17 20:59 Future Hold 07/30/17 08:33 5 MG Methylprednisolone Sodium Succinate 40 mg/Syringe 0.64 ml @ 1.5 mls/min DAILY IV 07/22/17 09:00 08/21/17 08:59 07/30/17 08:32 1.5 MLS/MIN Fentanyl Citrate (Fentanyl Inj) Fentanyl 25-50 mcg... Q4H PRN IV 07/21/17 20:45 08/04/17 20:44 07/24/17 05:47 50 MCG Dextrose 1,000 ml @ 0 mls/hr Q0M PRN IV 07/22/17 16:00 07/30/17 15:59 Cefepime HCl (Consult) 1 ea UD PRN N/A 07/22/17 11:30 08/21/17 11:29 Cefepime HCl 500 mg/Syringe 5.5 ml @ 5.5 mls/min DAILY@1600 IV 07/23/17 16:00 08/02/17 15:59 07/29/17 15:38 5.5 MLS/MIN Miscellaneous Information (Consult Glycemic Management Pharmacy) 1 ea UD PRN N/A 07/23/17 13:14 08/22/17 13:13 Morphine Sulfate (MoRPHine SULFATE INJ) 2 mg Q3RWA PRN IV 07/24/17 11:30 08/07/17 11:29 07/30/17 12:35 2 MG Heparin Sodium/ Dextrose 500 ml @ 13 mls/hr Q24H PRN IV 07/26/17 12:15 08/25/17 12:14 07/29/17 19:03 13 MLS/HR Metronidazole 500 mg/Prmx 100 ml @ 100 mls/hr Q8H IV 07/26/17 15:00 08/05/17 14:59 07/30/17 08:31 100 MLS/HR Caspofungin 50 mg/ Sodium Chloride 260 ml @ 250 mls/hr Q24H IV 07/28/17 12:00 08/06/17 11:59 07/30/17 12:18 250 MLS/HR Insulin Aspart (novoLOG ASPART) SLIDING SCALE G... ACHS SC 07/27/17 11:30 08/26/17 11:29 07/30/17 12:25 8 UNITS Methadone HCl (Dolophine Tab) 20 mg BID PO 07/28/17 21:00 08/08/17 08:59 07/30/17 08:33 20 MG Nutrition (Parenteral) 0 ml @ 0 mls/hr TODAY@1600 IV 07/29/17 16:00 07/30/17 15:59 07/29/17 15:37 0 MLS/HR Ipratropium Waldron (Atrovent 0.02% 0.5MG/2.5ML Neb) 0.5 mg Q6R INH 07/29/17 09:00 08/28/17 08:59 07/30/17 07:27 0.5 MG Levalbuterol (Xopenex 0.63 Mg/ 3 Ml Neb) 0.63 mg Q6R INH 07/29/17 09:00 08/28/17 08:59 07/30/17 07:27 0.63 MG Metoprolol Tartrate (Lopressor Tab) 100 mg BID PO 07/29/17 21:00 08/28/17 20:59 07/30/17 08:39 100 MG Amlodipine Besylate (Norvasc Tab) 10 mg QAM PO 07/30/17 09:00 08/29/17 08:59 07/30/17 08:34 10 MG Vital Signs: Date Time Temp Pulse Resp B/P (MAP) Pulse Ox O2 Delivery O2 Flow Rate FiO2 07/30/17 12:00 Oxymask 12.0 07/30/17 11:00 105 18 129/64 (85) 98 07/30/17 10:50 101 137/76 (96) 07/30/17 08:04 36.8 107 18 122/68 (86) 97 07/30/17 08:00 Oxymask 6.0 07/30/17 07:27 96 18 86 Mask 8.0 07/30/17 04:20 36.4 101 18 130/71 (90) 91 Oxymask 6.0 07/30/17 04:08 97 BiPAP 8.0 07/30/17 02:04 87 18 91 Mask 10.0 07/30/17 00:31 97 BiPAP 8.0 07/29/17 23:53 36.5 105 18 126/69 (88) 94 Oxymask 6.0 07/29/17 20:51 38.6 111 18 136/62 90 5.0 07/29/17 20:00 97 BiPAP 8.0 07/29/17 19:26 36.8 111 16 136/65 90 5.0 07/29/17 19:20 36.6 112 19 127/63 (84) 90 Oxymask 6.0 07/29/17 19:01 107 20 93 Mask 8.0 07/29/17 18:26 37.0 99 20 134/65 87 6.0 07/29/17 18:08 36.9 102 20 141/65 87 6.0 07/29/17 17:39 36.9 105 20 147/71 91 6.0 07/29/17 17:11 108 20 146/66 88 6.0 07/29/17 16:26 104 20 143/67 89 6.0 07/29/17 16:00 Oxymask 6.0 07/29/17 15:50 108 20 87 Mask 5.0 07/29/17 15:15 102 20 146/68 88 6.0 07/29/17 14:45 104 20 152/69 88 6.0 07/29/17 14:33 36.9 106 20 151/68 88 6.0 07/29/17 14:15 37.0 105 22 142/67 90 6.0 Laboratory Results: Last 24 Hours Test 07/29/17 16:33 07/29/17 20:27 07/30/17 06:05 07/30/17 06:46 Bedside Glucose 284 mg/dl 245 mg/dl 227 mg/dl White Blood Count 14.91 K/uL Red Blood Count 3.11 M/uL Hemoglobin 9.1 g/dL Hematocrit 27.1 % Mean Corpuscular Volume 87.1 fL Mean Corpuscular Hemoglobin 29.3 pg Mean Corpuscular Hemoglobin Concent 33.6 g/dl RDW Standard Deviation 56.1 fL RDW Coefficient of Variation 19.7 % Platelet Count 122 K/uL Mean Platelet Volume 12.0 fL Nucleated RBC Absolute Count (auto) 1.20 K/uL Nucleated Red Blood Cells % 8.0 % Platelet Estimate DECREASED Activated Partial Thromboplast Time 62.1 SECONDS Partial Thromboplastin Ratio 2.4 Sodium Level 133 mmol/L Potassium Level 4.3 mmol/L Chloride Level 99 mmol/L Carbon Dioxide Level 20 mmol/L Anion Gap 14.0 mmol/L Blood Urea Nitrogen 122 mg/dl Creatinine 4.48 mg/dl Est Creatinine Clear Calc Drug Dose 17.4 ml/min Estimated GFR () 15.1 Estimated GFR (Non- 13.0 BUN/Creatinine Ratio 26.6 Random Glucose 217 mg/dl Calcium Level 7.4 mg/dl Phosphorus Level 5.4 mg/dl Magnesium Level 1.9 mg/dl Albumin 1.3 gm/dl Random Vancomycin Level 16.6 mcg/ml Test 07/30/17 11:23 Bedside Glucose 234 mg/dl
--- NOTE | 2017-07-30 15:19 | DIAGNOSTIC IMAGING REPORT ---
CT ANGIOGRAPHY OF THE CHEST, PULMONARY EMBOLUS PROTOCOL CLINICAL HISTORY: Acute hypoxic respiratory failure. Renal cell carcinoma. COMPARISON STUDY: Chest CT July 14, 2017 and VQ scan July 29, 2017 and chest radiograph July 28, 2017. TECHNIQUE: Patient was premedicated for IV dye allergy. Following IV administration of 99 mL of [id number]-320, helical axial images of the chest were obtained utilizing the pulmonary embolus protocol. Maximal intensity projections and sagittal and coronal reformats were viewed on an independent 3D workstation. IV contrast was administered without complication. A dose lowering technique was utilized adhering to the principles of ALARA. CT DOSE: 602.79 mGy.cm FINDINGS: No pulmonary emboli are identified although the the segmental and subsegmental pulmonary arteries are suboptimally assessed due to respiratory motion. The size of the heart is normal. There is a trace pericardial effusion. There is no evidence of thoracic aortic dissection. A mildly enlarged retrocrural lymph node is unchanged since CT of July 14, 2017. A small left pleural effusion has slightly increased in size since that exam. A large right pleural effusion has significantly increased in size since prior CT of July 14, 2017. There is associated right lower lobe compressive atelectasis. Extensive groundglass opacity throughout the lungs has significantly progressed since exam July 14, 2017. Additional multifocal airspace consolidation is noted, most evident within the right lung. There is no pneumothorax. There is no pneumomediastinum. No cavitation is a identified. No suspicious osseous lesions are shown within the bony thorax. Hyperdense material within the gallbladder is noted. There may be mild pericholecystic infiltration. A few indeterminate right renal lesions are better depicted on prior abdominal CT. IMPRESSION: 1. No central pulmonary emboli identified. Exam significantly compromised by respiratory motion artifact which decreases sensitivity for detection of segmental and subsegmental pulmonary emboli. 2. Significant increase in size of a large right effusion since prior chest CT of July 14, 2017. Associated compressive right lower lobe atelectasis. Slight increase in size of a small left pleural effusion. 3. Extensive groundglass opacities with consolidation throughout the lungs which has progressed since exam July 14, 2017. Differential considerations include pneumonia, pulmonary edema, cryptogenic organizing pneumonia and ARDS. 4. Layering hyperdense material within the gallbladder with mild pericholecystic infiltration. No gallbladder distention. Electronically signed by: Lei Gan M.D. 07/30/2017 3:18 PM Dictated Date/Time: 07/30/2017 3:06 PM
[2017-07-30] MEDS: CEFEPIME IV 500 MG in SYRINGE 0 ML IV SCH (16:02)
--- NOTE | 2017-07-30 17:53 | Procedure Note ---
Procedure Note Date of Service Jul 30, 2017. Procedure Note Procedures: Right sided Thoracentesis Consent: obtained via the patient and placed into the chart Pre-Procedural Dx: Right pleural effusion Post-Procedural Dx: Right pleural effusion Analgesia: 8cc of 1% Liquid Lidocaine Procedure: The patient was placed in an upright position and thoracic US was used to select a spot for the procedure. A spot along the mid axillary line was marked in the 7th intercostal space. The patient was then draped and prepped in a sterile fashion. A modified Seldinger technique was then used for catheter placement. Flowing this approximately 1350 cc of serosanguineous pleural fluid was removed. The patient was then cleaned and placed at a 60 degree angle in the bed were the US was used to evaluate for possible pneumothorax. The US showed good lung sliding and starry night sign. EBL: <5 cc Complications: None
--- NOTE | 2017-07-30 18:40 | DIAGNOSTIC IMAGING REPORT ---
CHEST ONE VIEW PORTABLE CLINICAL HISTORY: S/P Thoracentesis COMPARISON STUDY: Chest CT performed earlier today. FINDINGS: Right internal jugular [id number] is in place. There is no pneumothorax following thoracentesis. The right pleural effusion has significantly decreased in size. Right lung aeration has improved. There is right infrahilar opacity and diffuse interstitial thickening. IMPRESSION: 1. No pneumothorax following right thoracentesis. Marked decrease in size of the right pleural effusion. 2. Right infrahilar opacity with interstitial thickening and hazy left lung airspace opacity. Electronically signed by: Lei Gan M.D. 07/30/2017 6:39 PM Dictated Date/Time: 07/30/2017 6:37 PM
[2017-07-30 18:47] LABS: PLEURAL FLUID TOTAL PROTEIN 1.2 g/dl
[2017-07-30 19:17] LABS: ALBUMIN 1.3 gm/dl (3.4-5.0)
[2017-07-30 19:24] LABS: TOTAL PROTEIN 4.3 gm/dl (6.4-8.2)
[2017-07-30] MEDS: INSULIN GLARGINE SOLOSTAR 100 UNITS/ML 3 ML PEN SC SCH (20:41)
[2017-07-30] MEDS: HEPARIN SOD 5000 UNIT/0.5 ML CARP SQ SCH (20:42)
[2017-07-31] VITALS (28 sets, daily range): BP systolic 61–146; BP diastolic 41–74; PULSE 58–107; TEMP 36.5–37; O2SAT 85–98
[2017-07-31] MEDS: LEVALBUTEROL 0.63MG/3 ML NEB INH SCH ×3 (02:05→14:55)
[2017-07-31] MEDS: IPRATROPIUM BROMIDE NEB SOLN 0.02% 2.5 ML VIAL INH SCH ×3 (02:05→14:55)
[2017-07-31 05:18] LABS: MEAN CORPUSCULAR HGB CONC 34.2 g/dl (32-36)
[2017-07-31 05:26] LABS: PTT PATIENT 31.5 SECONDS (21.0-31.0)
[2017-07-31 05:28] LABS: HEMATOCRIT 26.3 % (42-52); MEAN CELL VOLUME 87.7 fL (80-100); RED CELL DISTRIBUTION WIDTH CV 20.4 % (11.5-14.5); RED CELL DISTRIBUTION WIDTH SD 58.3 fL (36.4-46.3); WHITE BLOOD COUNT 13.32 K/uL (4.8-10.8)
[2017-07-31] MEDS: HEPARIN SOD 5000 UNIT/0.5 ML CARP SQ SCH ×3 (05:44→21:01)
[2017-07-31 05:55] LABS: CREATININE 5.32 mg/dl (0.60-1.40); POTASSIUM 4.9 mmol/L (3.5-5.1)
[2017-07-31 06:01] LABS: MEAN PLATELET VOLUME 11.5 fL (7.4-10.4); PLATELET COUNT 134 K/uL (130-400)
[2017-07-31] MEDS ORDERED: INSULIN GLARGINE SOLOSTAR 100 UNITS/ML 3 ML PEN SC ONE (08:00)
[2017-07-31] MEDS: FENTANYL 25 MCG/HR TDSY TD SCH (08:10)
[2017-07-31] MEDS: CHECK FENTANYL PATCH PLACEMENT SCH ×2 (08:11→14:53)
[2017-07-31] MEDS: FENTANYL PATCH REMOVE & WASTE SCH (08:11)
[2017-07-31] MEDS: METHADONE HCL 10 MG TAB PO SCH ×2 (08:12→20:43)
[2017-07-31] MEDS: INSULIN ASPART 100 UNITS/ML 3 ML PEN SC SCH ×4 (08:14→21:01)
[2017-07-31] MEDS: LACTOBACILLUS ACIDOPHILUS (FLORANEX) TAB PO SCH ×3 (08:16→20:44)
[2017-07-31] MEDS: METOPROLOL TARTRATE 100 MG TAB PO SCH ×2 (08:16→20:45)
[2017-07-31] MEDS: AMLODIPINE BESYLATE 5 MG TAB PO SCH (08:17)
[2017-07-31] MEDS: LISINOPRIL 40 MG TAB PO SCH (08:17)
--- NOTE | 2017-07-31 10:01 | Pharmacy Progress Note ---
Glycemic Control Progress Note Date of Service Jul 31, 2017. Scope Glycemic Pharmacist consulted for glycemic control to write orders per [facility] inpatient glycemic control protocol. Objective Accuchecks BSG (last 24hrs): Test 07/30/17 11:23 07/30/17 16:19 07/30/17 20:34 07/31/17 04:58 Bedside Glucose 234 mg/dl (70-99) 159 mg/dl (70-99) 184 mg/dl (70-99) Random Glucose 221 mg/dl (70-99) Test 07/31/17 06:49 Bedside Glucose 209 mg/dl (70-99) HbA1c: * Patient's A1c = 6.4% 04/2017 * However, this result is likely somewhat unreliable in ESRD patients d/t interactions between the A1c analyzing technique and high levels of urea in ESRD , reduced RBC life span, iron deficiency anemia, and EPO administration. HbA1c > 7.5% in ESRD patient may overestimate the extent of hyperglycemia in ESRD patients. Recent Pertinent Medications The patient is currently receiving: * Basal insulin: Lantus 6 units every 24 hours given at bedtime * Correctional Insulin: Novolog Correction per scale ACHS Goal Range: Low 110 mg/dL - High 140 mg/dL Correction Factor: 15 mg/dL/unit * Prandial insulin: Per carb ratio of 1 unit per 7 grams CHO consumed Outpatient Anti-Diabetic Meds Basal Insulin Lantus 14 units SQ PM Bolus Insulin Humalog per CR = 10 Assessment & Plan ASSESSMENT: * See previous progress notes for more background info, in short: * Pt receiving SQ basal bolus insulin regimen for hyperglycemia secondary to baseline DM (outpatient regimen on hold),stress/infection, recent surgery, steroids * Steroids tapered to Prednisone 20mg PO BIDM * Patient is currently receiving an average of 25-43 units of SQ insulin per day. Pt did require massive amounts of IV insulin (~110 units/day) contained in TPN when on TPN. * 6 units of basal insulin * 19 units of prandial/correctional insulin * BSGs ranging 159 - 234 mg/dl over the past 24hrs * Changes needed to insulin regimen: * AM Fasting BSG = 209 mg/dl. This is in slightly above goal range for patient based on inpatient targets and co-morbidities. Therefore Basal insulin needs increased. Diet advanced further. Tolerating, will start to titrate back to outpatient dosing of 14 units HS. * Post-prandial BSGs are near goal range after AM hyperglycemia corrected. Current parameters are already tight as compared to basal insulin dosing. Will hold off on changes to CF/CR until increase in basal insulin dose change assessed. PLAN FOR INPATIENT GLYCEMIC CONTROL: * Basal insulin * Lantus 6 units SQ x 1 dose this AM, then, Lantus 10-14 units this evening based on BSG * Lantus 14 units SQ HS {outpatient dosing} starting tomorrow * Bolus insulin * NovoLog per scale ACHS or Q6hrs while NPO * Goal Range: Low 110 mg/dL - High 140 mg/dL * Correction Factor: 15 mg/dL/unit * Nutritional / Prandial insulin per carb ratio of 1 unit per 7 grams CHO consumed * Please note that the plan above was derived based on current level of insulin resistance and hospital stress. These recommendations are appropriate for inpatient admission only. Plan of care upon discharge will need to be reassessed to avoid potential outpatient hypo/hyperglycemia. Thank you.
--- NOTE | 2017-07-31 10:14 | Hematology/Oncology Prog Note ---
Hematology/Onc Progress Note Date of Service Jul 31, 2017. Diagnoses metastatic renal cell carcinoma Left hand and arm cellulitis End-stage renal disease Jejunal perforation Jejunal diverticulitis Medications Medications Administered Medications (Trade) Dose Ordered Sig/Edward Route Start Time Stop Time Status Last Admin Dose Admin Acetaminophen (Tylenol Tab) 650 mg Q4H PRN PO 07/05/17 21:45 07/21/17 15:11 DC 07/20/17 15:28 650 MG Ertapenem 500 mg/ Sodium Chloride 55 ml @ 120 mls/hr Q24H IV 07/05/17 23:00 07/13/17 16:37 DC 07/12/17 23:38 120 MLS/HR Daptomycin 350 mg/ Syringe 7 ml @ 3.5 mls/min Q48H IV 07/06/17 20:00 07/13/17 16:37 DC 07/12/17 20:52 3.5 MLS/MIN Amlodipine Besylate (Norvasc Tab) 10 mg QAM PO 07/06/17 09:00 07/21/17 15:11 DC 07/20/17 09:32 10 MG Aspirin (Ecotrin Tab) 81 mg QAM PO 07/06/17 09:00 07/21/17 15:11 DC 07/20/17 08:28 81 MG Calcitriol (Rocaltrol Cap) 0.25 mcg Q2D PO 07/06/17 09:00 07/21/17 15:11 DC 07/20/17 08:31 0.25 MCG Calcium Carbonate (Tums Chew Tab) 500 mg TID PO 07/06/17 09:00 07/07/17 13:22 DC 07/07/17 13:00 500 MG Furosemide (Lasix Tab) 40 mg QAM PO 07/06/17 09:00 07/21/17 15:11 DC 07/20/17 09:31 40 MG Hydralazine HCl (Apresoline Tab) 100 mg TID PO 07/06/17 09:00 07/21/17 15:11 DC 07/20/17 09:30 100 MG Lactobacillus Acidophilus (Floranex Tab) 2 tab TID PO 07/06/17 09:00 08/05/17 08:59 07/31/17 08:16 2 TAB Lisinopril (Zestril Tab) 40 mg DAILY PO 07/06/17 09:00 08/05/17 08:59 07/30/17 08:34 40 MG Methadone HCl (Dolophine Tab) 10 mg TID PO 07/06/17 09:00 07/14/17 09:02 DC 07/13/17 20:53 10 MG Metoprolol Tartrate (Lopressor Tab) 150 mg BID PO 07/06/17 09:00 07/21/17 15:11 DC 07/20/17 09:33 150 MG Polyethylene (Miralax Powder Packet) 17 gm DAILY PRN PO 07/06/17 02:30 07/11/17 16:34 DC 07/09/17 08:14 17 GM Prednisone (PredniSONE TAB) 10 mg BID PO 07/06/17 09:00 07/14/17 15:02 DC 07/14/17 10:09 10 MG Simvastatin (Zocor Tab) 20 mg QPM PO 07/06/17 21:00 07/21/17 15:11 DC 07/21/17 00:17 20 MG Tamsulosin HCl (Flomax Cap) 0.4 mg HS PO 07/06/17 21:00 07/21/17 15:11 DC 07/21/17 00:19 0.4 MG Cabozantinib (Cabometyx) 60 mg DAILY@0500 PO 07/06/17 05:00 07/19/17 16:17 DC 07/19/17 05:19 60 MG Oxycodone HCl (Roxicodone Immediate Rel Tab) 10 mg TID PO 07/06/17 09:00 07/10/17 13:21 DC 07/10/17 09:00 10 MG Insulin Aspart (novoLOG ASPART) SLIDING SCALE G... ACHS SC 07/06/17 07:00 07/22/17 17:01 DC 07/20/17 12:46 2 UNITS Methylprednisolone Sodium Succinate 50 mg/Syringe 0.8 ml @ 1.5 mls/min NOW ONCE IV 07/06/17 03:45 07/06/17 03:56 DC 07/06/17 04:30 1.5 MLS/MIN Miscellaneous Information (Check Fentanyl Patch Placement) 1 ea QS N/A 07/06/17 08:00 08/05/17 07:59 07/31/17 08:11 1 EA Dextrose (Dextrose 50% 50ML Syringe) 25-50ML OF 50% DW IV FOR... UD PRN IV 07/06/17 04:15 08/05/17 04:14 07/06/17 05:40 25 ML Epoetin Mohsen 8000 units/Syringe 0.4 ml @ 1 mls/min TODAY@0945 IV. 07/06/17 09:45 07/06/17 12:00 DC 07/06/17 12:02 1 MLS/MIN Insulin Glargine (Lantus Solostar Pen) 7 units HS SC 07/06/17 21:00 07/16/17 17:50 DC 07/15/17 20:33 7 UNITS Enteral Nutritional Formula (Boost Glucose Control) 1 can BIDM PO 07/06/17 16:45 07/20/17 08:42 DC 07/20/17 08:26 1 CAN Heparin Sodium (Porcine) (Heparin 10 Unit/ ml 5 ml Flush) 5 ml STK-MED ONCE .ROUTE 07/06/17 21:06 07/06/17 21:07 DC 07/06/17 21:16 5 ML Miscellaneous (Fentanyl Patch Remove & Waste) 1 ea Q3D N/A 07/10/17 01:00 07/19/17 09:10 DC 07/19/17 08:54 1 EA Fentanyl (Duragesic Patch) 25 mcg Q3D TD 07/07/17 01:00 07/19/17 09:14 DC 07/19/17 08:53 25 MCG Heparin Sodium (Porcine) (Heparin 100 Unit/ml 5ml Flush) 5 ml PRN PRN IV 07/07/17 02:45 08/06/17 02:44 Future hold 07/26/17 01:15 5 ML Epoetin Mohsen 8000 units/Syringe 0.4 ml @ 1 mls/min TODAY@0600 IV. 07/08/17 06:00 07/08/17 18:00 DC 07/08/17 18:15 1 MLS/MIN Calcium Carbonate (Tums Chew Tab) 500 mg TIDM PO 07/07/17 17:00 07/21/17 15:11 DC 07/20/17 17:27 500 MG Methylprednisolone Sodium Succinate 40 mg/Syringe 0.64 ml @ 1.5 mls/min ONE STAT IV 07/09/17 17:39 07/09/17 18:31 DC 07/09/17 21:39 1.5 MLS/MIN Oxycodone HCl (Roxicodone Immediate Rel Tab) 10 mg TID PRN PO 07/10/17 14:00 07/14/17 09:02 DC 07/14/17 01:11 10 MG Ondansetron HCl (Zofran Inj) 4 mg STK-MED ONCE .ROUTE 07/10/17 21:38 07/10/17 21:39 DC 07/10/17 21:40 4 MG Ondansetron HCl (Zofran Inj) 4 mg Q4H PRN IV 07/11/17 03:00 08/10/17 02:59 07/17/17 21:50 4 MG Pantoprazole Sodium 40 mg/ Syringe 10 ml @ 5 mls/min DAILY@11 IV 07/11/17 11:00 07/13/17 15:05 DC 07/13/17 14:22 5 MLS/MIN Ondansetron HCl (Zofran Inj) 4 mg STK-MED ONCE .ROUTE 07/11/17 02:55 07/11/17 02:56 DC 07/11/17 02:58 4 MG Prochlorperazine Edisylate 5 mg/ Syringe 5 ml @ 5 mls/min 1200 ONCE IV 07/11/17 12:00 07/11/17 12:01 DC 07/11/17 13:02 5 MLS/MIN Lactulose (Chronulac Syrup) 30 gm NOW STAT PO 07/11/17 16:32 07/11/17 16:36 DC 07/11/17 17:38 30 GM Senna (Senokot Tab) 8.6 mg QAM PO 07/12/17 08:00 07/21/17 15:11 DC 07/17/17 08:57 8.6 MG Senna (Senokot Tab) 8.6 mg 1632 ONCE PO 07/11/17 16:32 07/11/17 16:36 DC 07/11/17 17:38 8.6 MG Polyethylene (Miralax Powder Packet) 17 gm DAILY PO 07/11/17 16:45 07/21/17 15:11 DC 07/18/17 07:50 17 GM Levalbuterol (Xopenex 0.63 Mg/ 3 Ml Neb) 0.63 mg NOW STAT INH 07/11/17 22:09 07/11/17 22:18 DC 07/11/17 22:31 0.63 MG Heparin Sodium (Porcine) (Heparin Sq 5000 Unit/0.5ml) 5,000 unit Q12 SQ 07/12/17 21:00 07/13/17 14:10 DC 07/12/17 20:44 5,000 UNIT Vancomycin HCl (Vancomycin Oral Soln) 250 mg Q6H PO 07/12/17 17:00 07/15/17 15:40 DC 07/15/17 13:17 250 MG Raspberry (Raspberry Syrup 5ml Cup) 5 ml Q6H PO 07/12/17 17:00 07/21/17 15:11 DC 07/21/17 05:43 5 ML Epoetin Mohsen (Procrit Inj) 20,000 units TODAY@1100 IV 07/13/17 11:00 07/13/17 18:02 DC 07/13/17 13:00 20,000 UNITS Iron Sucrose 100 mg/Syringe 5 ml @ 1 mls/min TODAY IV 07/13/17 11:00 07/13/17 18:02 DC 07/13/17 13:05 1 MLS/MIN Pantoprazole Sodium (Protonix Tab) 40 mg QAM PO 07/14/17 08:00 07/14/17 23:59 DC 07/14/17 10:09 40 MG Vancomycin HCl 1750 mg/Sodium Chloride 535 ml @ 200 mls/hr ONE ONCE IV 07/13/17 17:30 07/13/17 20:10 DC 07/13/17 19:12 200 MLS/HR Aztreonam 2000 mg/ Dextrose 110 ml @ 110 mls/hr ONE ONCE IV 07/13/17 17:30 07/14/17 15:02 DC 07/13/17 17:45 110 MLS/HR Aztreonam 500 mg/ Dextrose 55 ml @ 110 mls/hr Q12H IV 07/14/17 09:00 07/14/17 15:02 DC 07/14/17 10:13 110 MLS/HR Oxycodone HCl (Roxicodone Immediate Rel Tab) 10 mg Q4H PRN PO 07/14/17 09:15 07/21/17 15:11 DC 07/20/17 16:51 10 MG Methadone HCl (Dolophine Tab) 20 mg BID PO 07/14/17 09:30 07/20/17 17:01 DC 07/20/17 08:28 20 MG Prednisone (PredniSONE TAB) 40 mg DAILY PO 07/15/17 08:00 07/21/17 15:11 DC 07/20/17 08:30 40 MG Prednisone (PredniSONE TAB) 30 mg NOW ONCE PO 07/14/17 15:30 07/14/17 15:31 DC 07/14/17 16:14 30 MG Piperacillin Sod/ Tazobactam Sod 3.375 gm/Dextrose 115 ml @ 28.75 mls/ hr Q12@1000,2200 IV 07/14/17 22:00 07/19/17 13:14 DC 07/19/17 09:57 28.75 MLS/HR Piperacillin Sod/ Tazobactam Sod 3.375 gm/Dextrose 115 ml @ 230 mls/hr NOW ONCE IV 07/14/17 15:30 07/14/17 15:59 DC 07/14/17 16:15 230 MLS/HR Epoetin Mohsen (Procrit Inj) 10,000 units TODAY@1400 SC 07/15/17 14:00 07/15/17 18:00 DC 07/15/17 13:58 10,000 UNITS Vancomycin HCl (Vancomycin Oral Soln) 125 mg Q6H PO 07/15/17 17:00 07/21/17 15:11 DC 07/21/17 05:42 125 MG Vancomycin HCl 500 mg/Sodium Chloride 260 ml @ 125 mls/hr TODAY@1700 IV 07/15/17 17:00 07/15/17 20:00 DC 07/15/17 17:28 125 MLS/HR Insulin Glargine (Lantus Solostar Pen) 8 units HS SC 07/16/17 21:00 07/19/17 22:14 DC 07/19/17 21:58 6 UNITS Simethicone (Mylicon Chew Tab) 80 mg NOW STAT PO 07/17/17 23:07 07/17/17 23:08 DC 07/17/17 23:51 80 MG Vancomycin HCl 500 mg/Sodium Chloride 260 ml @ 125 mls/hr 1400 IV 07/18/17 14:00 07/18/17 16:05 DC 07/18/17 14:33 125 MLS/HR Epoetin Mohsen 8000 units/Syringe 0.4 ml @ 1 mls/min TODAY@1200 IV. 07/18/17 12:00 07/18/17 23:59 DC 07/18/17 13:12 1 MLS/MIN Miscellaneous (Fentanyl Patch Remove & Waste) 1 ea Q3D@0859 N/A 07/22/17 08:59 08/21/17 08:58 07/31/17 08:11 1 EA Fentanyl (Duragesic Patch) 25 mcg Q3D@0900 TD 07/22/17 09:00 08/05/17 08:59 07/31/17 08:10 25 MCG Epoetin Mohsen 8000 units/Syringe 0.4 ml @ 1 mls/min TODAY@0600 IV. 07/20/17 06:00 07/20/17 18:00 DC 07/20/17 22:50 1 MLS/MIN Levofloxacin (Levaquin Tab) 750 mg TODAY@1600 ONCE PO 07/19/17 16:00 07/19/17 16:01 DC 07/19/17 17:04 750 MG Insulin Glargine (Lantus Solostar Pen) 6 units HS SC 07/20/17 21:00 07/31/17 07:50 DC 07/30/17 20:41 6 UNITS Ergocalciferol (Vitamin D Cap) 50,000 interunit Q7D@0900 PO 07/20/17 09:00 08/19/17 08:59 07/20/17 09:32 50,000 INTERUNIT Enteral Nutritional Formula (Boost) 1 can TID PO 07/20/17 14:00 07/21/17 15:12 DC 07/21/17 00:14 1 CAN Ranitidine HCl (zANTac TAB) 150 mg DAILY PO 07/20/17 13:00 07/21/17 15:12 DC 07/20/17 12:42 150 MG Methadone HCl (Dolophine Tab) 30 mg BID PO 07/20/17 20:00 07/21/17 17:31 DC 07/21/17 00:16 30 MG Piperacillin Sod/ Tazobactam Sod 3.375 gm/Dextrose 115 ml @ 200 mls/hr NOW ONCE IV 07/21/17 08:00 07/21/17 08:34 DC 07/21/17 10:32 200 MLS/HR Piperacillin Sod/ Tazobactam Sod 3.375 gm/Dextrose 115 ml @ 28.75 mls/ hr Q12H IV 07/21/17 20:00 07/22/17 11:18 DC 07/22/17 08:17 28.75 MLS/HR Fentanyl Citrate (Fentanyl Inj) 50 mcg Q5M PRN IV 07/21/17 11:45 07/21/17 16:45 DC 07/21/17 14:24 50 MCG Hydromorphone HCl (Dilaudid Inj) 0.5 mg Q5M PRN IV 07/21/17 11:45 07/21/17 16:45 DC 07/21/17 15:10 0.5 MG Hydralazine HCl (HydrALAZINE INJ) 5 mg Q4 PRN IV. 07/21/17 17:15 08/20/17 17:14 Future Hold 07/25/17 23:45 5 MG Furosemide 20 mg/ Syringe 2 ml @ 4 mls/min QAM IV 07/22/17 09:00 08/21/17 08:59 07/30/17 08:32 4 MLS/MIN Hydralazine HCl (HydrALAZINE INJ) 5 mg TID IV. 07/21/17 21:00 08/20/17 20:59 Future Hold 07/30/17 08:33 5 MG Metoprolol Tartrate (Lopressor Iv) 2.5 mg Q6 IV. 07/21/17 18:00 07/22/17 08:59 DC 07/22/17 00:00 2.5 MG Methylprednisolone Sodium Succinate 40 mg/Syringe 0.64 ml @ 1.5 mls/min DAILY IV 07/22/17 09:00 07/30/17 21:14 DC 07/30/17 08:32 1.5 MLS/MIN Fentanyl Citrate (Fentanyl Inj) Fentanyl 25-50 mcg... Q4H PRN IV 07/21/17 20:45 08/04/17 20:44 07/24/17 05:47 50 MCG Metoprolol Tartrate (Lopressor Iv) 5 mg Q6 IV. 07/22/17 12:00 07/29/17 14:45 DC 07/29/17 11:42 5 MG Metronidazole 500 mg/Prmx 100 ml @ 100 mls/hr Q8@04,12,20 IV 07/22/17 12:00 07/26/17 12:25 DC 07/26/17 04:06 100 MLS/HR Nutrition (Parenteral) 0 ml @ 0 mls/hr TODAY@1600 IV 07/22/17 16:00 07/23/17 15:59 DC 07/22/17 16:22 0 MLS/HR Vancomycin HCl 750 mg/Sodium Chloride 265 ml @ 125 mls/hr NOW ONCE IV 07/22/17 11:30 07/22/17 13:37 DC 07/22/17 12:38 125 MLS/HR Cefepime HCl 500 mg/Syringe 5.5 ml @ 5.5 mls/min DAILY@1600 IV 07/23/17 16:00 07/30/17 21:12 DC 07/30/17 16:02 5.5 MLS/MIN Cefepime HCl 1000 mg/Syringe 11 ml @ 5.5 mls/min TODAY@1800 ONCE IV 07/22/17 18:00 07/22/17 18:01 DC 07/22/17 18:17 5.5 MLS/MIN Insulin Aspart (novoLOG ASPART) SLIDING SCALE G... Q6 SC 07/22/17 18:00 07/26/17 10:14 DC 07/26/17 05:55 8 UNITS Albumin Human (Albumin 25%) 25 gm ONE ONCE IV 07/23/17 09:30 07/23/17 09:31 DC 07/23/17 10:30 25 GM Epoetin Mohsen 8000 units/Syringe 0.4 ml @ 1 mls/min 1000 ONCE IV. 07/23/17 10:00 07/23/17 10:01 DC 07/23/17 13:05 1 MLS/MIN Nutrition (Parenteral) 0 ml @ 0 mls/hr TODAY@1600 IV 07/23/17 16:00 07/24/17 15:59 DC 07/23/17 14:43 0 MLS/HR Vancomycin HCl 1000 mg/Sodium Chloride 270 ml @ 125 mls/hr TODAY@1415 IV 07/23/17 14:15 07/23/17 18:00 DC 07/23/17 14:46 125 MLS/HR Methadone HCl (Dolophine Tab) 20 mg BID PO 07/23/17 21:00 07/25/17 08:49 DC 07/24/17 21:22 20 MG Morphine Sulfate (MoRPHine SULFATE INJ) 2 mg Q3RWA PRN IV 07/24/17 11:30 08/07/17 11:29 07/30/17 17:57 2 MG Nutrition (Parenteral) 0 ml @ 0 mls/hr TODAY@1600 IV 07/24/17 16:00 07/25/17 15:59 DC 07/24/17 15:22 66.1 MLS/HR Insulin Human Regular 8 units/ Syringe 8 ml @ 30 mls/min TODAY@0030 IV 07/25/17 00:30 07/25/17 00:31 DC 07/25/17 00:57 30 MLS/MIN Non-Formulary Medication (Patient'S Own Controlled Med) 1 ea BID PEG 07/25/17 09:00 07/28/17 11:23 DC 07/28/17 09:16 1 EA Methadone HCl (Methadone HCl) 20 mg BID GT 07/25/17 09:00 07/28/17 11:23 DC 07/28/17 09:16 20 MG Nutrition (Parenteral) 0 ml @ 0 mls/hr TODAY@1600 IV 07/25/17 16:00 07/26/17 15:59 DC 07/25/17 16:33 0 MLS/HR Furosemide (Lasix Inj) 40 mg ONE ONCE IV 07/26/17 03:45 07/26/17 03:46 DC 07/26/17 04:00 40 MG Insulin Human NPH (novoLIN-N U-100 NPH PER UNIT) 20 units ONE ONCE SQ 07/26/17 08:45 07/26/17 08:46 DC 07/26/17 09:38 20 UNITS Nutrition (Parenteral) 0 ml @ 0 mls/hr TODAY@1600 IV 07/26/17 16:00 07/27/17 15:59 DC 07/26/17 16:08 0 MLS/HR Vancomycin HCl 750 mg/Sodium Chloride 265 ml @ 125 mls/hr TODAY@1400 IV 07/26/17 14:00 07/27/17 06:50 DC 07/26/17 15:16 125 MLS/HR Insulin Aspart (novoLOG ASPART) SLIDING SCALE G... Q4H SC 07/26/17 10:00 07/27/17 11:02 DC 07/27/17 04:33 2 UNITS Heparin Sodium/ Dextrose 1 ea Q15M N/A 07/26/17 12:00 07/26/17 13:58 DC 07/26/17 12:26 1 EA Heparin Sodium/ Dextrose 500 ml @ 13 mls/hr Q24H PRN IV 07/26/17 12:15 07/30/17 15:39 DC 07/29/17 19:03 13 MLS/HR Metronidazole 500 mg/Prmx 100 ml @ 100 mls/hr Q8H IV 07/26/17 15:00 07/30/17 21:12 DC 07/30/17 15:02 100 MLS/HR Epoetin Mohsen 4000 units/Syringe 0.2 ml @ 1 mls/min 1630 IV. 07/26/17 16:30 07/26/17 18:30 DC 07/26/17 16:09 1 MLS/MIN Magnesium Sulfate 1 gm/Prmx 100 ml @ 100 mls/hr NOW STAT IV 07/27/17 08:15 07/27/17 09:14 DC 07/27/17 10:53 100 MLS/HR Potassium Chloride 10 meq/ Prmx 100 ml @ 100 mls/hr NOW STAT IV 07/27/17 08:16 07/27/17 09:15 DC 07/27/17 10:35 100 MLS/HR Caspofungin 70 mg/ Sodium Chloride 260 ml @ 250 mls/hr 1100 ONCE IV 07/27/17 11:00 07/27/17 12:02 DC 07/27/17 12:43 250 MLS/HR Caspofungin 50 mg/ Sodium Chloride 260 ml @ 250 mls/hr Q24H IV 07/28/17 12:00 08/06/17 11:59 07/30/17 12:18 250 MLS/HR Insulin Aspart (novoLOG ASPART) SLIDING SCALE G... ACHS SC 07/27/17 11:30 08/26/17 11:29 07/31/17 08:14 13 UNITS Nutrition (Parenteral) 0 ml @ 0 mls/hr TODAY@1600 IV 07/27/17 16:00 07/28/17 15:59 DC 07/27/17 16:14 0 MLS/HR Potassium Chloride 10 meq/ Prmx 100 ml @ 100 mls/hr 1600 ONCE IV 07/27/17 16:00 07/27/17 16:59 DC 07/27/17 17:37 100 MLS/HR Epoetin Mohsen 4000 units/Syringe 0.2 ml @ 1 mls/min TODAY@0800 IV. 07/28/17 08:00 07/28/17 18:00 DC 07/28/17 12:46 1 MLS/MIN Nutrition (Parenteral) 0 ml @ 0 mls/hr TODAY@1600 IV 07/28/17 16:00 07/29/17 15:59 DC 07/28/17 16:22 0 MLS/HR Insulin Aspart (novoLOG ASPART) SLIDING SCALE G... TODAY@0200 TX 07/29/17 02:00 07/29/17 02:01 DC 07/29/17 02:16 7 UNITS Methadone HCl (Dolophine Tab) 20 mg BID PO 07/28/17 21:00 08/08/17 08:59 07/31/17 08:12 20 MG Vancomycin HCl 750 mg/Sodium Chloride 265 ml @ 125 mls/hr TODAY@1600 ONCE IV 07/28/17 16:00 07/28/17 18:07 DC 07/28/17 16:08 125 MLS/HR Nutrition (Parenteral) 0 ml @ 0 mls/hr TODAY@1600 IV 07/29/17 16:00 07/30/17 15:59 DC 07/29/17 15:37 0 MLS/HR Ipratropium [place] (Atrovent 0.02% 0.5MG/2.5ML Neb) 0.5 mg Q6R INH 07/29/17 09:00 08/28/17 08:59 07/31/17 06:58 0.5 MG Levalbuterol (Xopenex 0.63 Mg/ 3 Ml Neb) 0.63 mg Q6R INH 07/29/17 09:00 08/28/17 08:59 07/31/17 06:58 0.63 MG Metoprolol Tartrate (Lopressor Tab) 100 mg BID PO 07/29/17 21:00 08/28/17 20:59 07/30/17 20:25 100 MG Amlodipine Besylate (Norvasc Tab) 10 mg QAM PO 07/30/17 09:00 08/29/17 08:59 07/30/17 08:34 10 MG Methylprednisolone Sodium Succinate 40 mg/Syringe 0.64 ml @ 1.5 mls/min NOW ONCE IV 07/30/17 13:45 07/30/17 13:46 DC 07/30/17 13:52 1.5 MLS/MIN Diphenhydramine HCl (Benadryl Inj) 50 mg NOW ONCE IV 07/30/17 13:45 07/30/17 13:46 DC 07/30/17 13:52 50 MG Heparin Sodium (Porcine) (Heparin Sq 5000 Unit/0.5ml) 5,000 unit Q8 SQ 07/30/17 22:00 08/29/17 21:59 07/31/17 05:44 5,000 UNIT Prednisone (PredniSONE TAB) 20 mg BIDM PO 07/31/17 07:30 08/30/17 07:29 07/31/17 08:15 20 MG Insulin Glargine (Lantus Solostar Pen) 6 units NOW ONCE SC 07/31/17 08:00 07/31/17 08:01 DC 07/31/17 08:14 6 UNITS Subjective CTA yesterday did not show PE but did show a right pleural fluid that was tapped yesterday. We will look for the results of the cytologies. He is currently receiving dialysis. He remains afebrile. He states his breathing better now that the fluid was drained from his lung. There is been no fever. He has been gradually recovering from his abdominal surgery. Review of Systems: Constitutional: Negative for weight loss, night sweats, or fever Eyes: Negative for event change of vision ENT: Negative for epistaxis, nasal discharge, sore throat, or deafness Cardiovascular: Negative for chest pain, palpitations, dizziness, diaphoresis Respiratory: Negative for new shortness of breath,hemoptysis, or purulent cough Gastrointestinal: Coming from recent surgery Integumentary (skin): Negative for rash or jaundice discoloration Neurological: Negative for weakness, seizure activity, headache, or dizziness Lymphatic/Hematologic: Negative for petechiae, bleeding or new adenopathy Musculoskeletal: Negative for new joint or back pain Allergic/Immunologic: Negative for unusual rash or pruritis. Vital Signs Vital Signs Past 12 Hours Date Time Temp Pulse Resp B/P (MAP) Pulse Ox O2 Delivery O2 Flow Rate FiO2 07/31/17 07:54 36.8 101 20 109/57 (74) 94 6.0 07/31/17 06:58 87 20 95 Mask 7.0 07/31/17 04:30 36.5 98 18 112/65 (81) 98 Oxymask 11.0 07/31/17 04:28 97 BiPAP 8.0 07/31/17 02:07 84 20 92 BiPAP/CPAP 5.0 07/31/17 02:07 84 92 5.0 07/31/17 00:08 97 BiPAP 8.0 07/30/17 23:56 36.6 103 19 97/59 (72) 94 CPAP 07/30/17 22:44 103 96 5.0 Physical Exam Constitutional: vitals are stable. Eyes: Eyes are YSABEL EOMI without conjuctival erythema or icterus. ENT: External examination was negative for masses. Neck: Negative for masses or palpable thyromegaly Respiratory: Lung sounds were generally clear but decreased bilaterally Cardiovascular: Heart was RRR without significant murmur, gallops aoe rubs Gastrointestinal: No palpable hepatic or splenomegaly. The abdomen was soft with normal slightly decreased bowel sounds. The abdomen was mildly distended. Midline surgical incision appears well on its way to healing. Lymphatic system: there was no palpable peripheral lymphadenopathy Musculoskeletal System: The musculoskeletal system seemed concordant with age. Skin: The skin was negative for jaundice. Neurologic exam: The exam was negative for any focal findings. Deep tendon reflexes were equal and symmetrical. Psychiatric exam: Was essentially negative with normal mood and effect. Laboratory Last 24 Hours Test 07/30/17 11:23 07/30/17 16:19 07/30/17 18:25 07/30/17 20:34 Bedside Glucose 234 mg/dl 159 mg/dl 184 mg/dl Total Bilirubin 0.4 mg/dl Lactate Dehydrogenase 1304 U/L Total Protein 4.3 gm/dl Albumin 1.3 gm/dl Test 07/31/17 04:58 07/31/17 06:49 White Blood Count 13.32 K/uL Red Blood Count 3.00 M/uL Hemoglobin 9.0 g/dL Hematocrit 26.3 % Mean Corpuscular Volume 87.7 fL Mean Corpuscular Hemoglobin 30.0 pg Mean Corpuscular Hemoglobin Concent 34.2 g/dl RDW Standard Deviation 58.3 fL RDW Coefficient of Variation 20.4 % Platelet Count 134 K/uL Mean Platelet Volume 11.5 fL Nucleated RBC Absolute Count (auto) 0.80 K/uL Nucleated Red Blood Cells % 6.0 % Platelet Estimate NORMAL Activated Partial Thromboplast Time 31.5 SECONDS Partial Thromboplastin Ratio 1.2 Sodium Level 130 mmol/L Potassium Level 4.9 mmol/L Chloride Level 98 mmol/L Carbon Dioxide Level 18 mmol/L Anion Gap 14.0 mmol/L Blood Urea Nitrogen 144 mg/dl Creatinine 5.32 mg/dl Est Creatinine Clear Calc Drug Dose 14.7 ml/min Estimated GFR () 12.3 Estimated GFR (Non- 10.6 BUN/Creatinine Ratio 27.1 Random Glucose 221 mg/dl Calcium Level 7.0 mg/dl Phosphorus Level 7.0 mg/dl Magnesium Level 2.0 mg/dl Bedside Glucose 209 mg/dl Assessment & Plan He seems stable. We will look for the results of the pleural fluid. CBC is acceptable. Little to add at this juncture and will be following Mr. Christy in our clinic.
--- NOTE | 2017-07-31 10:46 | Palliative Care Progress Note ---
Palliative Care Progress Note Date of Service Jul 31, 2017. Subjective Pt evaluation today including: conversation w/ patient, physical exam, chart review, lab review, review of inpatient medication list Pain: Controlled on methadone - last prn IV morphine was 6 pm yesterday PO Intake: poor Pt states he has been off BiPAP for the past 36 hours - he required it briefly after thoracentesis. States his breathing is better and his pain is well controlled Review of Systems Constitutional: No fever Eyes: No worsening of vision ENT: No hearing loss Respiratory: + shortness of breath Cardiac: No chest pain Abdomen: + pain (over surgical incision ) Male : No dysuria Neurologic: + weakness Psychiatric: + anxiety Endo: + fatigue Skin: + problem reported (still with swelling and redness of L hand - ? RDS) Objective Vital Signs Date Time Temp Pulse Resp B/P (MAP) Pulse Ox O2 Delivery O2 Flow Rate FiO2 07/31/17 07:54 36.8 101 20 109/57 (74) 94 6.0 07/31/17 06:58 87 20 95 Mask 7.0 07/31/17 04:30 36.5 98 18 112/65 (81) 98 Oxymask 11.0 07/31/17 04:28 97 BiPAP 8.0 07/31/17 02:07 84 20 92 BiPAP/CPAP 5.0 07/31/17 02:07 84 92 5.0 07/31/17 00:08 97 BiPAP 8.0 07/30/17 23:56 36.6 103 19 97/59 (72) 94 CPAP 07/30/17 22:44 103 96 5.0 07/30/17 20:00 97 BiPAP 8.0 07/30/17 19:30 36.7 97 18 112/61 (78) 95 Nebulizer 07/30/17 19:26 94 20 91 Mask 10.0 07/30/17 16:00 93 BiPAP 07/30/17 15:48 36.9 102 22 133/70 (91) 90 BiPAP 07/30/17 14:48 103 18 89 Mask 15.0 07/30/17 12:00 Oxymask 12.0 07/30/17 11:00 105 18 129/64 (85) 98 07/30/17 10:50 101 137/76 (96) Physical Exam General Appearance: no apparent distress Eyes: EOMI ENT: hearing grossly normal Neck: supple Respiratory/Chest: + pertinent finding (no rhonchi or crackles, decreased BS both bases) Cardiovascular: regular rate, rhythm Abdomen: normal bowel sounds, + distended, + tenderness (over surgical site) Extremities: + pertinent finding (pedal edema on R) Neurologic/Psychiatric: alert, + pertinent finding (more alert, good mood) Laboratory Results Last 24 Hours Test 07/30/17 11:23 07/30/17 16:19 07/30/17 18:25 07/30/17 20:34 Bedside Glucose 234 mg/dl 159 mg/dl 184 mg/dl Total Bilirubin 0.4 mg/dl Lactate Dehydrogenase 1304 U/L Total Protein 4.3 gm/dl Albumin 1.3 gm/dl Test 07/31/17 04:58 07/31/17 06:49 White Blood Count 13.32 K/uL Red Blood Count 3.00 M/uL Hemoglobin 9.0 g/dL Hematocrit 26.3 % Mean Corpuscular Volume 87.7 fL Mean Corpuscular Hemoglobin 30.0 pg Mean Corpuscular Hemoglobin Concent 34.2 g/dl RDW Standard Deviation 58.3 fL RDW Coefficient of Variation 20.4 % Platelet Count 134 K/uL Mean Platelet Volume 11.5 fL Nucleated RBC Absolute Count (auto) 0.80 K/uL Nucleated Red Blood Cells % 6.0 % Platelet Estimate NORMAL Activated Partial Thromboplast Time 31.5 SECONDS Partial Thromboplastin Ratio 1.2 Sodium Level 130 mmol/L Potassium Level 4.9 mmol/L Chloride Level 98 mmol/L Carbon Dioxide Level 18 mmol/L Anion Gap 14.0 mmol/L Blood Urea Nitrogen 144 mg/dl Creatinine 5.32 mg/dl Est Creatinine Clear Calc Drug Dose 14.7 ml/min Estimated GFR () 12.3 Estimated GFR (Non- 10.6 BUN/Creatinine Ratio 27.1 Random Glucose 221 mg/dl Calcium Level 7.0 mg/dl Phosphorus Level 7.0 mg/dl Magnesium Level 2.0 mg/dl Bedside Glucose 209 mg/dl Assessment and Plan (1) Pain due to neoplasm Status: Chronic Assessment & Plan: Doing well on current dose of methadone - requiring 1-3 prn IV morphine a day (2) Cellulitis of left hand Status: Acute Assessment & Plan: Received prolonged course of antibiotics - ? Reflex Sympathetic Dystrophy - will have pain management evaluate as an outpt (3) ESRD (end stage renal disease) on dialysis Status: Acute Assessment & Plan: Creat high - receiving HD today (4) Hypoxemia requiring supplemental oxygen Status: Acute Assessment & Plan: Improving - increased opacities on CXR , but O2 requirement decreasing (5) High risk medication use Status: Acute Assessment & Plan: Will cont to monitor for meds that will effect methadone metabolism - no dose adjustment needed at this time. Total time: 35 min with > 50% time spent reviewing pain regime on the unit and assessing pt Palliative Performance Scale: 30 % Continued [facility] stay due to: inadequate po fluid intake, inadequate oral pain control, ambulation difficulties, other (BiPAP requirement) Discharge planning: rehab hospital, other (hope to be able to transfer to rehab when medically stable) Counseling and Coordination Total time 35 min with > 50 % of time spent discussing POC with pt
--- NOTE | 2017-07-31 12:02 | Nephrology Progress Note ---
Nephrology Progress Note Date of Service Jul 31, 2017. Chief Complaint Follow-up for end-stage renal disease on hemodialysis. Roland Causey Was seen and examined in his room this morning. He feels better, has been tolerating full liquid and plan to start on soft diet. Continues to make urine. Blood pressure remained relatively high. Review of Systems A complete review of systems was performed. Pertinent positives are noted above. All other systems are negative. Vital Signs Last 8 Hrs Date Time Temp Pulse Resp B/P (MAP) Pulse Ox O2 Delivery O2 Flow Rate FiO2 07/31/17 11:57 36.8 93 18 118/66 (83) 94 6.0 07/31/17 08:00 Oxymask 6.0 07/31/17 07:54 36.8 101 20 109/57 (74) 94 6.0 07/31/17 06:58 87 20 95 Mask 7.0 07/31/17 04:30 36.5 98 18 112/65 (81) 98 Oxymask 11.0 07/31/17 04:28 97 BiPAP 8.0 Last Recorded Weight Weight (Kilograms): 83.700 Physical Exam GENERAL: Middle-aged male, AAA x 3, pleasant, ill-appearing, not in any distress. NECK: Supple, no JVD. RESPIRATORY: Normal breathing efforts, no accessory muscle use, clear to auscultation bilaterally, no wheezes or rales. CARDIOVASCULAR: S1, S2 normal, rate rhythm regular. EXTREMITY: Bilateral upper extremity edema, more on left upper extremity, left brachiocephalic AV fistula with thrill and bruit. NEURO: speech fluent. PSYCHIATRY: Normal mood and judgment Family History Cervical cancer Diabetes mellitus Heart disease Hypertension Myocardial infarction Pancreatic cancer Prostate cancer Negative for CKD/ESRD Social History Smokeless Tobacco Use: No Alcohol Use: none Drug Use: none Marital Status: single Housing Status: lives alone Occupation: disabled Single, retired. Formerly worked for [employer]. Never a smoker. Laboratory Results Past 24 Hours 07/31/17 04:58 07/31/17 04:58 Test 07/30/17 16:19 07/30/17 18:25 07/30/17 20:34 07/31/17 04:58 Bedside Glucose 159 mg/dl (70-99) 184 mg/dl (70-99) Total Bilirubin 0.4 mg/dl (0.2-1) Lactate Dehydrogenase 1304 U/L (87-241) Total Protein 4.3 gm/dl (6.4-8.2) Albumin 1.3 gm/dl (3.4-5.0) Red Blood Count 3.00 M/uL (4.7-6.1) Mean Corpuscular Volume 87.7 fL (80-100) Mean Corpuscular Hemoglobin 30.0 pg (25-34) Mean Corpuscular Hemoglobin Concent 34.2 g/dl (32-36) RDW Standard Deviation 58.3 fL (36.4-46.3) RDW Coefficient of Variation 20.4 % (11.5-14.5) Mean Platelet Volume 11.5 fL (7.4-10.4) Nucleated RBC Absolute Count (auto) 0.80 K/uL (0-0) Nucleated Red Blood Cells % 6.0 % Platelet Estimate NORMAL Activated Partial Thromboplast Time 31.5 SECONDS (21.0-31.0) Partial Thromboplastin Ratio 1.2 Anion Gap 14.0 mmol/L (3-11) Est Creatinine Clear Calc Drug Dose 14.7 ml/min Estimated GFR () 12.3 Estimated GFR (Non- 10.6 BUN/Creatinine Ratio 27.1 (10-20) Calcium Level 7.0 mg/dl (8.5-10.1) Phosphorus Level 7.0 mg/dl (2.5-4.9) Magnesium Level 2.0 mg/dl (1.8-2.4) Test 07/31/17 06:49 07/31/17 11:17 Bedside Glucose 209 mg/dl (70-99) 126 mg/dl (70-99) Allergies Coded Allergies: Iodinated Diagnostic Agents (Verified Allergy, Unknown, oil based, severe headaches, 06/20/17) EVENT OCCURED IN 1971, PT STATES HE HAS HAD 3 DIFFERENT WATER BASED IVP DYES WITH NO ISSUE Medications Current Inpatient Medications Medications (Trade) Dose Ordered Sig/Edward Route Start Time Stop Time Status Last Admin Dose Admin Lactobacillus Acidophilus (Floranex Tab) 2 tab TID PO 07/06/17 09:00 08/05/17 08:59 07/31/17 08:16 2 TAB Lisinopril (Zestril Tab) 40 mg DAILY PO 07/06/17 09:00 08/05/17 08:59 1/18 08:34 40 MG Miscellaneous Information (Check Fentanyl Patch Placement) 1 ea QS N/A 07/06/17 08:00 08/05/17 07:59 07/31/17 08:11 1 EA Glucose (Glucose 40% Gel) 15-30 GRAMS 15 GRAMS... UD PRN PO 07/06/17 04:15 08/05/17 04:14 Glucose (Glucose Chew Tab) 4-8 Tablets 4 Tabl... UD PRN PO 07/06/17 04:15 08/05/17 04:14 Dextrose (Dextrose 50% 50ML Syringe) 25-50ML OF 50% DW IV FOR... UD PRN IV 07/06/17 04:15 08/05/17 04:14 07/06/17 05:40 25 ML Glucagon (Glucagon Inj) 1 mg UD PRN SQ 07/06/17 04:15 08/05/17 04:14 Heparin Sodium (Porcine) (Heparin 100 Unit/ml 5ml Flush) 5 ml PRN PRN IV 07/07/17 02:45 08/06/17 02:44 Future hold 07/26/17 01:15 5 ML Ondansetron HCl (Zofran Inj) 4 mg Q4H PRN IV 07/11/17 03:00 08/10/17 02:59 07/17/17 21:50 4 MG Prochlorperazine Edisylate 5 mg/ Syringe 5 ml @ 5 mls/min Q4H PRN IV 07/11/17 14:00 08/10/17 13:59 Lactulose (Chronulac Syrup) 30 gm Q4H PRN PO 07/11/17 16:45 08/10/17 16:44 Miscellaneous (Fentanyl Patch Remove & Waste) 1 ea Q3D@0859 N/A 07/22/17 08:59 08/21/17 08:58 07/31/17 08:11 1 EA Fentanyl (Duragesic Patch) 25 mcg Q3D@0900 TD 07/22/17 09:00 08/05/17 08:59 07/31/17 08:10 25 MCG Ergocalciferol (Vitamin D Cap) 50,000 interunit Q7D@0900 PO 07/20/17 09:00 08/19/17 08:59 12/28/17 09:32 50,000 INTERUNIT Hydralazine HCl (HydrALAZINE INJ) 5 mg Q4 PRN IV. 07/21/17 17:15 08/20/17 17:14 Future Hold 07/25/17 23:45 5 MG Furosemide 20 mg/ Syringe 2 ml @ 4 mls/min QAM IV 07/22/17 09:00 08/21/17 08:59 07/30/17 08:32 4 MLS/MIN Hydralazine HCl (HydrALAZINE INJ) 5 mg TID IV. 07/21/17 21:00 08/20/17 20:59 Future Hold 07/30/17 08:33 5 MG Fentanyl Citrate (Fentanyl Inj) Fentanyl 25-50 mcg... Q4H PRN IV 07/21/17 20:45 08/04/17 20:44 07/24/17 05:47 50 MCG Miscellaneous Information (Consult Glycemic Management Pharmacy) 1 ea UD PRN N/A 07/23/17 13:14 08/22/17 13:13 Morphine Sulfate (MoRPHine SULFATE INJ) 2 mg Q3RWA PRN IV 07/24/17 11:30 08/07/17 11:29 07/30/17 17:57 2 MG Caspofungin 50 mg/ Sodium Chloride 260 ml @ 250 mls/hr Q24H IV 07/28/17 12:00 08/06/17 11:59 07/30/17 12:18 250 MLS/HR Insulin Aspart (novoLOG ASPART) SLIDING SCALE G... ACHS SC 07/27/17 11:30 08/26/17 11:29 07/31/17 08:14 13 UNITS Methadone HCl (Dolophine Tab) 20 mg BID PO 07/28/17 21:00 08/08/17 08:59 07/31/17 08:12 20 MG Ipratropium [place] (Atrovent 0.02% 0.5MG/2.5ML Neb) 0.5 mg Q6R INH 07/29/17 09:00 08/28/17 08:59 07/31/17 06:58 0.5 MG Levalbuterol (Xopenex 0.63 Mg/ 3 Ml Neb) 0.63 mg Q6R INH 07/29/17 09:00 08/28/17 08:59 07/31/17 06:58 0.63 MG Metoprolol Tartrate (Lopressor Tab) 100 mg BID PO 07/29/17 21:00 08/28/17 20:59 07/30/17 20:25 100 MG Amlodipine Besylate (Norvasc Tab) 10 mg QAM PO 07/30/17 09:00 08/29/17 08:59 07/30/17 08:34 10 MG Ioversol (Optiray 320) 111 ml UD PRN IV 07/30/17 13:30 08/03/17 13:29 Diphenhydramine HCl (Benadryl Inj) 50 mg 4XDQ4H PRN IV 07/30/17 13:30 08/29/17 13:29 Heparin Sodium (Porcine) (Heparin Sq 5000 Unit/0.5ml) 5,000 unit Q8 SQ 07/30/17 22:00 08/29/17 21:59 07/31/17 05:44 5,000 UNIT Prednisone (PredniSONE TAB) 20 mg BIDM PO 07/31/17 07:30 08/30/17 07:29 07/31/17 08:15 20 MG Insulin Glargine (Lantus Solostar Pen) 14 units HS SC 08/01/17 21:00 08/31/17 20:59 Insulin Glargine (Lantus Solostar Pen) see protocol text 07/31/17 SC 07/31/17 21:00 07/31/17 21:01 Impression (1) Cellulitis of left hand (2) ESRD (end stage renal disease) on dialysis (3) Renal cell carcinoma (4) Anemia (5) Diabetes type 2, controlled Mr. Christy has ESRD and metastatic RCC. He underwent left nephrectomy in 2015. Patient did not tolerate Sutent due to high grade proteinuria; Opdivo caused arthralgia, colitis and possible pneumonitis. He was most recently treated w/ Cabometyx. This was complicated by abdominal wall hematoma a intestinal perforation. He remains on steroids for interstitial lung disease versus INCLUSION SPECIAL[facility]. Mr. Christy was admitted with persistent soft tissue infection of the left hand. Patient tested positive for C. Difficile colitis. He has had a prolonged and complicated hospital course. On 07/21 Mr. Christy was diagnosed with intestinal perforation and required emergency laparotomy. 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 Partial colectomy w/ reanastomosis was completed Mr. Christy's dialysis was complicated by prolonged bleeding from the AVF following treatment. 07/23 duplex study demonstrated high grade venous outflow stenosis. Fistulogram with coil embolization completed 07/25/16. Mr. Christy developed acute hypoxic respiratory failure and respiratory distress requiring NIPPV. Heparin gtt started for suspected PE. Recommendations -- HD today as his regular MWF schedule -- BP and volume status are currently appropriate, UF as tolerated -- Protect LUE AVF -- Epogen with dialysis -- Treatment for renal cell carcinoma on hold due to acute comorbid conditions -- Calcitriol and CaCO3 on hold due to recent abdominal surgery, will resume once patient on regular oral diet
--- NOTE | 2017-07-31 12:57 | Hospitalist Progress Note ---
Hospitalist Progress Note Date of Service Jul 31, 2017. (Ledy Bhakta ., SARITA) Subjective Pt evaluation today including: conversation w/ patient, physical exam, lab review, review of inpatient medication list Patient resting in bed. Receiving dialysis now- tolerating well. Slowly advancing diet- currently on full liquids- tolerating well. Pain is currently well controlled. SOB significantly improved since yesterday, but still SOB. Patient denies any fever, chills, sweats, lightheadedness, dizziness, vision changes, CP, palpitations, edema, wheezing, cough, abdominal pain, nausea, vomiting, diarrhea, urinary symptoms, melena, numbness/tingling, weakness, muscle/joint pain, anxiety/depression, active bleeding, or new skin discoloration/changes. (Ledy Bhakta, BROCKC) Medications Current Inpatient Medications Medications (Trade) Dose Ordered Sig/Edward Route Start Time Stop Time Status Last Admin Dose Admin Lactobacillus Acidophilus (Floranex Tab) 2 tab TID PO 07/06/17 09:00 08/05/17 08:59 07/31/17 08:16 2 TAB Lisinopril (Zestril Tab) 40 mg DAILY PO 07/06/17 09:00 08/05/17 08:59 07/30/17 08:34 40 MG Miscellaneous Information (Check Fentanyl Patch Placement) 1 ea QS N/A 07/06/17 08:00 08/05/17 07:59 07/31/17 08:11 1 EA Glucose (Glucose 40% Gel) 15-30 GRAMS 15 GRAMS... UD PRN PO 07/06/17 04:15 08/05/17 04:14 Glucose (Glucose Chew Tab) 4-8 Tablets 4 Tabl... UD PRN PO 07/06/17 04:15 08/05/17 04:14 Dextrose (Dextrose 50% 50ML Syringe) 25-50ML OF 50% DW IV FOR... UD PRN IV 07/06/17 04:15 08/05/17 04:14 07/06/17 05:40 25 ML Glucagon (Glucagon Inj) 1 mg UD PRN SQ 07/06/17 04:15 08/05/17 04:14 Heparin Sodium (Porcine) (Heparin 100 Unit/ml 5ml Flush) 5 ml PRN PRN IV 07/07/17 02:45 08/06/17 02:44 Future hold 07/26/17 01:15 5 ML Ondansetron HCl (Zofran Inj) 4 mg Q4H PRN IV 07/11/17 03:00 08/10/17 02:59 07/17/17 21:50 4 MG Prochlorperazine Edisylate 5 mg/ Syringe 5 ml @ 5 mls/min Q4H PRN IV 07/11/17 14:00 08/10/17 13:59 Lactulose (Chronulac Syrup) 30 gm Q4H PRN PO 07/11/17 16:45 08/10/17 16:44 Miscellaneous (Fentanyl Patch Remove & Waste) 1 ea Q3D@0859 N/A 07/22/17 08:59 08/21/17 08:58 07/31/17 08:11 1 EA Fentanyl (Duragesic Patch) 25 mcg Q3D@0900 TD 07/22/17 09:00 08/05/17 08:59 07/31/17 08:10 25 MCG Ergocalciferol (Vitamin D Cap) 50,000 interunit Q7D@0900 PO 07/20/17 09:00 08/19/17 08:59 07/20/17 09:32 50,000 INTERUNIT Hydralazine HCl (HydrALAZINE INJ) 5 mg Q4 PRN IV. 07/21/17 17:15 08/20/17 17:14 Future Hold 07/25/17 23:45 5 MG Furosemide 20 mg/ Syringe 2 ml @ 4 mls/min QAM IV 07/22/17 09:00 08/21/17 08:59 07/30/17 08:32 4 MLS/MIN Hydralazine HCl (HydrALAZINE INJ) 5 mg TID IV. 07/21/17 21:00 08/20/17 20:59 Future Hold 07/30/17 08:33 5 MG Fentanyl Citrate (Fentanyl Inj) Fentanyl 25-50 mcg... Q4H PRN IV 07/21/17 20:45 08/04/17 20:44 07/24/17 05:47 50 MCG Miscellaneous Information (Consult Glycemic Management Pharmacy) 1 ea UD PRN N/A 07/23/17 13:14 08/22/17 13:13 Morphine Sulfate (MoRPHine SULFATE INJ) 2 mg Q3RWA PRN IV 07/24/17 11:30 08/07/17 11:29 07/30/17 17:57 2 MG Caspofungin 50 mg/ Sodium Chloride 260 ml @ 250 mls/hr Q24H IV 07/28/17 12:00 08/06/17 11:59 07/30/17 12:18 250 MLS/HR Insulin Aspart (novoLOG ASPART) SLIDING SCALE G... ACHS SC 07/27/17 11:30 08/26/17 11:29 07/31/17 08:14 13 UNITS Methadone HCl (Dolophine Tab) 20 mg BID PO 07/28/17 21:00 08/08/17 08:59 07/31/17 08:12 20 MG Ipratropium [place] (Atrovent 0.02% 0.5MG/2.5ML Neb) 0.5 mg Q6R INH 07/29/17 09:00 08/28/17 08:59 07/31/17 06:58 0.5 MG Levalbuterol (Xopenex 0.63 Mg/ 3 Ml Neb) 0.63 mg Q6R INH 07/29/17 09:00 08/28/17 08:59 07/31/17 06:58 0.63 MG Metoprolol Tartrate (Lopressor Tab) 100 mg BID PO 07/29/17 21:00 08/28/17 20:59 07/30/17 20:25 100 MG Amlodipine Besylate (Norvasc Tab) 10 mg QAM PO 07/30/17 09:00 08/29/17 08:59 07/30/17 08:34 10 MG Ioversol (Optiray 320) 111 ml UD PRN IV 07/30/17 13:30 08/03/17 13:29 Diphenhydramine HCl (Benadryl Inj) 50 mg 4XDQ4H PRN IV 07/30/17 13:30 08/29/17 13:29 Heparin Sodium (Porcine) (Heparin Sq 5000 Unit/0.5ml) 5,000 unit Q8 SQ 07/30/17 22:00 08/29/17 21:59 07/31/17 05:44 5,000 UNIT Prednisone (PredniSONE TAB) 20 mg BIDM PO 07/31/17 07:30 08/30/17 07:29 07/31/17 08:15 20 MG Insulin Glargine (Lantus Solostar Pen) 14 units HS SC 08/01/17 21:00 08/31/17 20:59 Insulin Glargine (Lantus Solostar Pen) see protocol text 07/31/17 SC 07/31/17 21:00 07/31/17 21:01 (Ledy Bhakta PA-C) Objective Vital Signs Date Time Temp Pulse Resp B/P (MAP) Pulse Ox O2 Delivery O2 Flow Rate FiO2 07/31/17 07:54 36.8 101 20 109/57 (74) 94 6.0 07/31/17 06:58 87 20 95 Mask 7.0 07/31/17 04:30 36.5 98 18 112/65 (81) 98 Oxymask 11.0 07/31/17 04:28 97 BiPAP 8.0 07/31/17 02:07 84 20 92 BiPAP/CPAP 5.0 07/31/17 02:07 84 92 5.0 07/31/17 00:08 97 BiPAP 8.0 07/30/17 23:56 36.6 103 19 97/59 (72) 94 CPAP 07/30/17 22:44 103 96 5.0 07/30/17 20:00 97 BiPAP 8.0 07/30/17 19:30 36.7 97 18 112/61 (78) 95 Nebulizer 07/30/17 19:26 94 20 91 Mask 10.0 07/30/17 16:00 93 BiPAP 07/30/17 15:48 36.9 102 22 133/70 (91) 90 BiPAP 07/30/17 14:48 103 18 89 Mask 15.0 07/30/17 12:00 Oxymask 12.0 07/30/17 11:00 105 18 129/64 (85) 98 07/30/17 10:50 101 137/76 (96) (Ledy Bhakta PA-C) Physical Exam General Appearance: no apparent distress, + pertinent finding (OxyMask on ) Eyes: normal inspection, PERRL ENT: hearing grossly normal Neck: supple Respiratory/Chest: lungs clear, no respiratory distress, no accessory muscle use Cardiovascular: regular rate, rhythm Abdomen: normal bowel sounds, non tender, soft, + pertinent finding (incision site C/D/I) Extremities: no calf tenderness, + swelling (+2 pitting edema of bilateral lower extremities; +pitting edema to LUE ) Neurologic/Psychiatric: alert, normal mood/affect, oriented x 3 Skin: warm/dry, no rash, + pallor (Ledy Bhakta ., CHRISTEN-C) Laboratory Results Last 24 Hours Test 07/30/17 11:23 07/30/17 16:19 07/30/17 18:25 07/30/17 20:34 Bedside Glucose 234 mg/dl 159 mg/dl 184 mg/dl Total Bilirubin 0.4 mg/dl Lactate Dehydrogenase 1304 U/L Total Protein 4.3 gm/dl Albumin 1.3 gm/dl Test 07/31/17 04:58 07/31/17 06:49 White Blood Count 13.32 K/uL Red Blood Count 3.00 M/uL Hemoglobin 9.0 g/dL Hematocrit 26.3 % Mean Corpuscular Volume 87.7 fL Mean Corpuscular Hemoglobin 30.0 pg Mean Corpuscular Hemoglobin Concent 34.2 g/dl RDW Standard Deviation 58.3 fL RDW Coefficient of Variation 20.4 % Platelet Count 134 K/uL Mean Platelet Volume 11.5 fL Nucleated RBC Absolute Count (auto) 0.80 K/uL Nucleated Red Blood Cells % 6.0 % Platelet Estimate NORMAL Activated Partial Thromboplast Time 31.5 SECONDS Partial Thromboplastin Ratio 1.2 Sodium Level 130 mmol/L Potassium Level 4.9 mmol/L Chloride Level 98 mmol/L Carbon Dioxide Level 18 mmol/L Anion Gap 14.0 mmol/L Blood Urea Nitrogen 144 mg/dl Creatinine 5.32 mg/dl Est Creatinine Clear Calc Drug Dose 14.7 ml/min Estimated GFR () 12.3 Estimated GFR (Non- 10.6 BUN/Creatinine Ratio 27.1 Random Glucose 221 mg/dl Calcium Level 7.0 mg/dl Phosphorus Level 7.0 mg/dl Magnesium Level 2.0 mg/dl Bedside Glucose 209 mg/dl (Ledy Bhakta, CHRISTEN-C) Assessment and Plan Mr. Christy is a 61 y/o M with PMH of ESRD on HD, RCC, DMII. Admitted for L hand cellulitis having failed outpatient management. Abdominal pain, found to have incidental rectus sheath hematoma, C.diff positive colitis and subsequent bowel perforation on 07/21, now s/p colectomy, anemia, and bilateral pneumonia on imaging. C. diff colitis, perforated jejunal bowel (suspected to result from chemo regimen) s/p colectomy, rectus sheath hematoma: - Monitoring on tele- no acute events - Surgical management as per surgery- POD #10: -- TPN completed on 07/29/17- advancing diet - Underlying severe protein malnutrition, albumin 1.3 - C.Diff + 07/12/17: Completed 9 days of PO Vancomycin - C. glabratum growth- ID recommending Caspofungin x10 days- last day of treatment on 08/06/17 - Pain controlled w/ Methadone and Morphine IV PRN Metastatic RCC s/p L nephrectomy, chronic pain: - Oncology following- holding treatment at this time due to acute issues- f/u outpatient - Palliative care following- appreciate recommendations for pain control- Methadone, Fentanyl, and Morphine PRN ESRD HD, secondary to RCC/ s/p left nephrectomy- HD on MWF: - Nephrology following - 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 on 07/23 - Vascular surgery consulted- s/p AVR repair on 07/25/17 - Hypocalcemia w/ vitamin D level of 9.4: Ergocalciferol 50,000 q7d indefinitely + daily D3 2000 when patient resumes oral intake- recheck levels in 12 weeks ESRD bone mineral disease: Resume Calcitriol and CaCO3 once tolerating regular diet Left hand cellulitis- RESOLVED: - Initial MRI did not determine any osteomyelitis - ID consulted: treated initially with Ertapenem/Daptomycin, then transitioned to Cefepime- treated 07/22- 07/30 SOB, hypoxia, ?secondary to pulmonary edema vs cryptogenic organizing pneumonia/ drug related pneumonitis: - Continue O2 supplementation to maintain SaO2 >92%, wean as tolerated - Started on heparin drip on 07/26 for presumed PE- CTA 07/30/17 negative for PE, thus heparin drip stopped - Large R pleural effusion s/p thoracentesis completed 07/30/17- pleural studies pending - IV Solu-Medrol- transitioned to Prednisone 20 mg BID today - DuoNebs QID and PRN - Pulmonary following DMII: - BSG ACHS and ISS - Pharmacy consulted for glycemic management- resuming Lantus 14 u daily tomorrow Acute anemia- transfused a total of 6 u PRBCs: - Nephrology following- Epogen with dialysis - H&H- STABLE HTN, HLD: - Furosemide 20 IV daily- will discontinue and resume home regimen on 40 mg PO daily - Amlodipine 10 mg daily, Metoprolol 100 mg PO BID, Lisinopril 40 mg daily - Hydralazine 100 mg TID held- BPs well controlled at this time - Monitor I&Os and daily weights - Simvastatin 20 mg HS held due to NPO status- will resume once tolerating regular diet BPH: Tamsulosin 0.4 mg PO daily held due to NPO status- will resume once tolerating regular diet DVT Prophylaxis: Heparin SQ TID Code Status: LEVEL I, FULL Dispo: Discharge uncertain- planning for [facility] at discharge- PT/OT and CM consulted- (Ledy Bhakta, SARITA) Reviewed: Pt Seen/Exam by Me (Rosenda Luis MD) History Physician Back Wedger Supervision Note: I interviewed and examined the patient. Discussed with CHRISTEN Bhakta and agree with findings and plan as documented in the note. Any exceptions or clarifications are listed here: Pt feeling much better today s/p thoracentesis yesterday. Fluid is exudative and was noted to be bloody, but had been on heparin gtt as well. Discussed case with Pulmonology today, awaiting pleural cytology and cultures. Discussed case with Nephrology too. Is evy full liquids diet, albumin remains severely low and with anasarca likely related to this, plus with h/o nephrotic syndrome. Vitals reviewed NAD, lying in bed, in good spirits, AAOx3 RRR no mgr lungs fairly clear bilat with decreased BS at bases Abd +BS soft NT, ND, incision midline with crusted blood centrally, mario in place, no erythema Ext 3+ pitting edema in all extremities with LUE>RUE, left hand with a few small areas of blisters and scabs, no significant erythema Pt is a 61 yo male with a very complicated hospital course, here with left hand cellulitis, C. diff colitis, jejunal diverticulitis with perforation requiring emergency laparotomy, ESRD on HD, AV fistula stenosis, nephrotic syndrome, severe hypoalbuminemia and anasarca, HTN, metastatic RCC, DMII, anemia of CKD, and cryptogenic organizing PNA vs drug-induced pneumonitis, worsening pleural effusions. -f/u pleural fluid cyto and cx, appreciate Pulmonology consultation for further management -completed abx course for hand cellulitis, follow clinically, appreciate ID consult -recovering from bowel resection, adv diet as tolerated, appreciate Surgery management -ESRD on HD, nephrotic syndrome--> continue HD, appreciate Nephrology management -metastatic RCC with multiple adverse SEs from chemo regimens, appreciate Oncology consultation, f/u in office--> placed call to Dr. Dao to see what he thought of elevated/rising LDH? May be related to recent bowel surgery, however was rising prior to that -mobilize out of bed soon and work towards weaning down O2 to get to rehab Documented By: Rosenda Luis (Rosenda Luis MD)
--- NOTE | 2017-07-31 13:24 | Pulmonology Progress Note ---
Pulmonary Progress Note Date of Service Jul 31, 2017. Attending Dr. Vines Subjective This is a 61 yo male that underwent colon resection with adequate anastomosis on 07/21/[address] Angela Zelaya on 07/21/17. He presented to the ICU postoperatively as he had difficulty being extubated. He did well and was transferred to telemetry 07/22/2017. Since transfer he has been continuing with SOB and has required CPAP/BiPAP at night and supplemental O2 PRN. He has not been ambulatory and while he has a flutter valve and incentive spirometry at bedside, is not using it often per nursing. CTA yesterday showed no evidence of pulmonary embolus but did show moderate to large pleural effusion. Dr. Clark successfully performed a right thoracentesis and evacuated 1350 mL of serosanguineous pleural fluid. Pathology/microbiology is still pending. Patient states that since the procedure, he feels like his breathing is improved. Comorbidities include renal cell carcinoma, ESRD, DMII, C. diff colitis, rectus sheath hematoma, and limited ambulation. Today, the patient states that his breathing seems improved. He denies fever or chills. He has no rigors. Pain is generally controlled with methadone and transdermal fentanyl. He is currently receiving dialysis and has no other acute complaints. Objective Vital Signs - as noted below Laboratory Data - as noted below Physical Exam: General - NAD Eyes - No icterus, gaze conjugate ENT - Mucosa moist, no lesions or candidiasis Neck - Supple, No JVD Lungs - No bronchospasm, rales, or rhonchi. Decreased breath sounds at the bases Heart - Regular, rate controlled Abdomen - Soft, NT, ND, BS present Extremities - No edema, pedal pulses intact. AV fistula in the left arm accessed for HD Neuro - A&OX3 Assessment & Plan ACUTE HYPOXIC RESPIRATORY FAILURE Patient as required supplemental oxygen since returning from the operating room for anastomosis from a perforated bowel He is tolerating BiPAP at night He is using supplemental O2 during the day Patient underwent thoracentesis on the right yesterday secondary to large pleural effusion - 1350 mL out of serosanguineous fluid - labs pending Patient should be out of bed to bedside chair as tolerated and ambulate as tolerated Patient may with cellulitis of the hand. Cultures from the operating room grew out Cecilia glabrata - caspofungin was added by ID Continue incentive spirometry and flutter valve PLEURAL EFFUSION Status post thoracentesis 07/30/[address] Clark Pathology and microbiology pending Follow for redevelopment of effusion No pneumothorax on chest x-ray after procedure POSSIBLE CRYPTOGENIC ORGANIZING PNEUMONIA Continue steroids but taper to prednisone as tolerated Will need a several week taper and follow-up with pulmonary on discharge QUESTION OF PULMONARY EMBOLI CTA yesterday with no evidence of pulmonary embolus Heparin drip was stopped Lower extremity duplex was negative for DVT Continue DVT prophylaxis with heparin 5000 units subcutaneous every 8 hours DVT PROPHYLAXIS Continue heparin 5000 units subcutaneously every eight hours Thank you for including us in the care of this patient. Please refer to Dr. Vines's addendum for further recommendations. I suspect that this may require tincture of time as well as increase in ambulation to increase endurance Resident Physician Supervision Note: I was present with Dieter Brown PA-C during the history and exam. I discussed the case with him and agree with the findings and plan as documented in the note. Any exceptions or clarifications are listed here: Patient with hypoxic respiratory failure, POD# 10 s/p colon resection, POD#1 s/ p right thoracentesis, h/o renal cell CA, ESRD on HD Still with significant hypoxia but slightly better. S/p thoracentesis yesterday, drained 1350 ml of exudative bloody effusion. F/u final cultures and pathology. Nocturnal BIPAP On a steroid taper for possible [employer] by radiology OOB to chair DVT prophylaxis with SC heparin Documented By: Charlie Vines MD Data Medications: Current Inpatient Medications Medications (Trade) Dose Ordered Sig/Edward Route Start Time Stop Time Status Last Admin Dose Admin Lactobacillus Acidophilus (Floranex Tab) 2 tab TID PO 07/06/17 09:00 08/05/17 08:59 07/31/17 08:16 2 TAB Lisinopril (Zestril Tab) 40 mg DAILY PO 07/06/17 09:00 08/05/17 08:59 07/30/17 08:34 40 MG Miscellaneous Information (Check Fentanyl Patch Placement) 1 ea QS N/A 07/06/17 08:00 08/05/17 07:59 07/31/17 08:11 1 EA Glucose (Glucose 40% Gel) 15-30 GRAMS 15 GRAMS... UD PRN PO 07/06/17 04:15 08/05/17 04:14 Glucose (Glucose Chew Tab) 4-8 Tablets 4 Tabl... UD PRN PO 07/06/17 04:15 08/05/17 04:14 Dextrose (Dextrose 50% 50ML Syringe) 25-50ML OF 50% DW IV FOR... UD PRN IV 07/06/17 04:15 08/05/17 04:14 07/06/17 05:40 25 ML Glucagon (Glucagon Inj) 1 mg UD PRN SQ 07/06/17 04:15 08/05/17 04:14 Heparin Sodium (Porcine) (Heparin 100 Unit/ml 5ml Flush) 5 ml PRN PRN IV 07/07/17 02:45 08/06/17 02:44 Future hold 07/26/17 01:15 5 ML Ondansetron HCl (Zofran Inj) 4 mg Q4H PRN IV 07/11/17 03:00 08/10/17 02:59 07/17/17 21:50 4 MG Prochlorperazine Edisylate 5 mg/ Syringe 5 ml @ 5 mls/min Q4H PRN IV 07/11/17 14:00 08/10/17 13:59 Lactulose (Chronulac Syrup) 30 gm Q4H PRN PO 07/11/17 16:45 08/10/17 16:44 Miscellaneous (Fentanyl Patch Remove & Waste) 1 ea Q3D@0859 N/A 07/22/17 08:59 08/21/17 08:58 07/31/17 08:11 1 EA Fentanyl (Duragesic Patch) 25 mcg Q3D@0900 TD 07/22/17 09:00 08/05/17 08:59 07/31/17 08:10 25 MCG Ergocalciferol (Vitamin D Cap) 50,000 interunit Q7D@0900 PO 07/20/17 09:00 08/19/17 08:59 07/20/17 09:32 50,000 INTERUNIT Hydralazine HCl (HydrALAZINE INJ) 5 mg Q4 PRN IV. 07/21/17 17:15 08/20/17 17:14 Future Hold 07/25/17 23:45 5 MG Furosemide 20 mg/ Syringe 2 ml @ 4 mls/min QAM IV 07/22/17 09:00 08/21/17 08:59 07/30/17 08:32 4 MLS/MIN Hydralazine HCl (HydrALAZINE INJ) 5 mg TID IV. 07/21/17 21:00 08/20/17 20:59 Future Hold 07/30/17 08:33 5 MG Fentanyl Citrate (Fentanyl Inj) Fentanyl 25-50 mcg... Q4H PRN IV 07/21/17 20:45 08/04/17 20:44 07/24/17 05:47 50 MCG Miscellaneous Information (Consult Glycemic Management Pharmacy) 1 ea UD PRN N/A 07/23/17 13:14 08/22/17 13:13 Morphine Sulfate (MoRPHine SULFATE INJ) 2 mg Q3RWA PRN IV 07/24/17 11:30 08/07/17 11:29 07/30/17 17:57 2 MG Caspofungin 50 mg/ Sodium Chloride 260 ml @ 250 mls/hr Q24H IV 07/28/17 12:00 08/06/17 11:59 07/30/17 12:18 250 MLS/HR Insulin Aspart (novoLOG ASPART) SLIDING SCALE G... ACHS SC 07/27/17 11:30 08/26/17 11:29 07/31/17 08:14 13 UNITS Methadone HCl (Dolophine Tab) 20 mg BID PO 07/28/17 21:00 08/08/17 08:59 07/31/17 08:12 20 MG Ipratropium [place] (Atrovent 0.02% 0.5MG/2.5ML Neb) 0.5 mg Q6R INH 07/29/17 09:00 08/28/17 08:59 07/31/17 06:58 0.5 MG Levalbuterol (Xopenex 0.63 Mg/ 3 Ml Neb) 0.63 mg Q6R INH 07/29/17 09:00 08/28/17 08:59 07/31/17 06:58 0.63 MG Metoprolol Tartrate (Lopressor Tab) 100 mg BID PO 07/29/17 21:00 08/28/17 20:59 07/30/17 20:25 100 MG Amlodipine Besylate (Norvasc Tab) 10 mg QAM PO 07/30/17 09:00 2/6/18 08:59 07/30/17 08:34 10 MG Ioversol (Optiray 320) 111 ml UD PRN IV 07/30/17 13:30 08/03/17 13:29 Diphenhydramine HCl (Benadryl Inj) 50 mg 4XDQ4H PRN IV 07/30/17 13:30 08/29/17 13:29 Heparin Sodium (Porcine) (Heparin Sq 5000 Unit/0.5ml) 5,000 unit Q8 SQ 07/30/17 22:00 08/29/17 21:59 07/31/17 05:44 5,000 UNIT Prednisone (PredniSONE TAB) 20 mg BIDM PO 07/31/17 07:30 08/30/17 07:29 07/31/17 08:15 20 MG Insulin Glargine (Lantus Solostar Pen) 14 units HS SC 08/01/17 21:00 08/31/17 20:59 Insulin Glargine (Lantus Solostar Pen) see protocol text 07/31/17 SC 07/31/17 21:00 07/31/17 21:01 Vital Signs: Date Time Temp Pulse Resp B/P (MAP) Pulse Ox O2 Delivery O2 Flow Rate FiO2 07/31/17 12:15 91 146/62 07/31/17 12:00 92 130/55 07/31/17 11:57 36.8 93 18 118/66 (83) 94 6.0 07/31/17 11:45 87 131/51 07/31/17 11:15 93 118/66 07/31/17 11:00 90 131/70 07/31/17 10:30 92 121/59 07/31/17 10:20 36.6 89 117/59 (78) 07/31/17 08:00 Oxymask 6.0 07/31/17 07:54 36.8 101 20 109/57 (74) 94 6.0 07/31/17 06:58 87 20 95 Mask 7.0 07/31/17 04:30 36.5 98 18 112/65 (81) 98 Oxymask 11.0 07/31/17 04:28 97 BiPAP 8.0 07/31/17 02:07 84 20 92 BiPAP/CPAP 5.0 07/31/17 02:07 84 92 5.0 07/31/17 00:08 97 BiPAP 8.0 07/30/17 23:56 36.6 103 19 97/59 (72) 94 CPAP 07/30/17 22:44 103 96 5.0 07/30/17 20:00 97 BiPAP 8.0 07/30/17 19:30 36.7 97 18 112/61 (78) 95 Nebulizer 07/30/17 19:26 94 20 91 Mask 10.0 07/30/17 16:00 93 BiPAP 07/30/17 15:48 36.9 102 22 133/70 (91) 90 BiPAP 07/30/17 14:48 103 18 89 Mask 15.0 Laboratory Results: Last 24 Hours Test 07/30/17 16:19 07/30/17 18:25 07/30/17 20:34 07/31/17 04:58 Bedside Glucose 159 mg/dl 184 mg/dl Total Bilirubin 0.4 mg/dl Lactate Dehydrogenase 1304 U/L Total Protein 4.3 gm/dl Albumin 1.3 gm/dl White Blood Count 13.32 K/uL Red Blood Count 3.00 M/uL Hemoglobin 9.0 g/dL Hematocrit 26.3 % Mean Corpuscular Volume 87.7 fL Mean Corpuscular Hemoglobin 30.0 pg Mean Corpuscular Hemoglobin Concent 34.2 g/dl RDW Standard Deviation 58.3 fL RDW Coefficient of Variation 20.4 % Platelet Count 134 K/uL Mean Platelet Volume 11.5 fL Nucleated RBC Absolute Count (auto) 0.80 K/uL Nucleated Red Blood Cells % 6.0 % Platelet Estimate NORMAL Activated Partial Thromboplast Time 31.5 SECONDS Partial Thromboplastin Ratio 1.2 Sodium Level 130 mmol/L Potassium Level 4.9 mmol/L Chloride Level 98 mmol/L Carbon Dioxide Level 18 mmol/L Anion Gap 14.0 mmol/L Blood Urea Nitrogen 144 mg/dl Creatinine 5.32 mg/dl Est Creatinine Clear Calc Drug Dose 14.7 ml/min Estimated GFR () 12.3 Estimated GFR (Non- 10.6 BUN/Creatinine Ratio 27.1 Random Glucose 221 mg/dl Calcium Level 7.0 mg/dl Phosphorus Level 7.0 mg/dl Magnesium Level 2.0 mg/dl Test 07/31/17 06:49 07/31/17 11:17 Bedside Glucose 209 mg/dl 126 mg/dl
[2017-07-31] MEDS: CASPOFUNGIN INJ 50 MG in SODIUM CHLORIDE 0.9% 250ML 250 ML IV SCH (14:54)
--- NOTE | 2017-07-31 15:06 | Infectious Disease Progress Nt ---
Progress Note Date of Service Jul 31, 2017. Subjective Pt evaluation today including: conversation w/ patient, physical exam, chart review, lab review, review of studies, conversation w/ technical consultant, review of inpatient medication list Abdominal pain slowly improving, appetite better. Still short of breath but improving. No fever. All Other Systems: Reviewed and Negative Medications Current Inpatient Medications Medications (Trade) Dose Ordered Sig/Edward Route Start Time Stop Time Status Last Admin Dose Admin Lactobacillus Acidophilus (Floranex Tab) 2 tab TID PO 07/06/17 09:00 08/05/17 08:59 07/31/17 14:53 2 TAB Lisinopril (Zestril Tab) 40 mg DAILY PO 07/06/17 09:00 08/05/17 08:59 07/30/17 08:34 40 MG Miscellaneous Information (Check Fentanyl Patch Placement) 1 ea QS N/A 07/06/17 08:00 08/05/17 07:59 07/31/17 14:53 1 EA Glucose (Glucose 40% Gel) 15-30 GRAMS 15 GRAMS... UD PRN PO 07/06/17 04:15 08/05/17 04:14 Glucose (Glucose Chew Tab) 4-8 Tablets 4 Tabl... UD PRN PO 07/06/17 04:15 08/05/17 04:14 Dextrose (Dextrose 50% 50ML Syringe) 25-50ML OF 50% DW IV FOR... UD PRN IV 07/06/17 04:15 08/05/17 04:14 07/06/17 05:40 25 ML Glucagon (Glucagon Inj) 1 mg UD PRN SQ 07/06/17 04:15 08/05/17 04:14 Heparin Sodium (Porcine) (Heparin 100 Unit/ml 5ml Flush) 5 ml PRN PRN IV 07/07/17 02:45 08/06/17 02:44 Future hold 07/26/17 01:15 5 ML Ondansetron HCl (Zofran Inj) 4 mg Q4H PRN IV 07/11/17 03:00 08/10/17 02:59 07/17/17 21:50 4 MG Prochlorperazine Edisylate 5 mg/ Syringe 5 ml @ 5 mls/min Q4H PRN IV 07/11/17 14:00 08/10/17 13:59 Lactulose (Chronulac Syrup) 30 gm Q4H PRN PO 07/11/17 16:45 08/10/17 16:44 Miscellaneous (Fentanyl Patch Remove & Waste) 1 ea Q3D@0859 N/A 07/22/17 08:59 08/21/17 08:58 07/31/17 08:11 1 EA Fentanyl (Duragesic Patch) 25 mcg Q3D@0900 TD 07/22/17 09:00 08/05/17 08:59 07/31/17 08:10 25 MCG Ergocalciferol (Vitamin D Cap) 50,000 interunit Q7D@0900 PO 07/20/17 09:00 08/19/17 08:59 07/20/17 09:32 50,000 INTERUNIT Hydralazine HCl (HydrALAZINE INJ) 5 mg Q4 PRN IV. 07/21/17 17:15 08/20/17 17:14 Future Hold 07/25/17 23:45 5 MG Hydralazine HCl (HydrALAZINE INJ) 5 mg TID IV. 07/21/17 21:00 08/20/17 20:59 Future Hold 07/30/17 08:33 5 MG Fentanyl Citrate (Fentanyl Inj) Fentanyl 25-50 mcg... Q4H PRN IV 07/21/17 20:45 08/04/17 20:44 07/24/17 05:47 50 MCG Miscellaneous Information (Consult Glycemic Management Pharmacy) 1 ea UD PRN N/A 07/23/17 13:14 08/22/17 13:13 Morphine Sulfate (MoRPHine SULFATE INJ) 2 mg Q3RWA PRN IV 07/24/17 11:30 08/07/17 11:29 07/30/17 17:57 2 MG Caspofungin 50 mg/ Sodium Chloride 260 ml @ 250 mls/hr Q24H IV 07/28/17 12:00 08/06/17 11:59 07/31/17 14:54 250 MLS/HR Insulin Aspart (novoLOG ASPART) SLIDING SCALE G... ACHS SC 07/27/17 11:30 08/26/17 11:29 07/31/17 08:14 13 UNITS Methadone HCl (Dolophine Tab) 20 mg BID PO 07/28/17 21:00 08/08/17 08:59 07/31/17 08:12 20 MG Ipratropium [place] (Atrovent 0.02% 0.5MG/2.5ML Neb) 0.5 mg Q6R INH 07/29/17 09:00 08/28/17 08:59 07/31/17 14:55 0.5 MG Levalbuterol (Xopenex 0.63 Mg/ 3 Ml Neb) 0.63 mg Q6R INH 07/29/17 09:00 08/28/17 08:59 07/31/17 14:55 0.63 MG Metoprolol Tartrate (Lopressor Tab) 100 mg BID PO 07/29/17 21:00 08/28/17 20:59 07/30/17 20:25 100 MG Amlodipine Besylate (Norvasc Tab) 10 mg QAM PO 07/30/17 09:00 08/29/17 08:59 07/30/17 08:34 10 MG Ioversol (Optiray 320) 111 ml UD PRN IV 07/30/17 13:30 08/03/17 13:29 Diphenhydramine HCl (Benadryl Inj) 50 mg 4XDQ4H PRN IV 07/30/17 13:30 08/29/17 13:29 Heparin Sodium (Porcine) (Heparin Sq 5000 Unit/0.5ml) 5,000 unit Q8 SQ 07/30/17 22:00 08/29/17 21:59 07/31/17 14:58 5,000 UNIT Prednisone (PredniSONE TAB) 20 mg BIDM PO 07/31/17 07:30 08/30/17 07:29 07/31/17 08:15 20 MG Insulin Glargine (Lantus Solostar Pen) 14 units HS SC 08/01/17 21:00 08/31/17 20:59 Insulin Glargine (Lantus Solostar Pen) see protocol text 07/31/17 SC 07/31/17 21:00 07/31/17 21:01 Furosemide (Lasix Tab) 40 mg QAM PO 08/01/17 09:00 08/31/17 08:59 Objective Vital Signs Date Time Temp Pulse Resp B/P (MAP) Pulse Ox O2 Delivery O2 Flow Rate FiO2 07/31/17 14:57 100 92 5.0 07/31/17 14:56 100 15 85 BiPAP/CPAP 6.0 07/31/17 13:45 58 111/68 07/31/17 13:30 107 140/73 07/31/17 13:15 86 61/47 07/31/17 13:00 89 104/51 07/31/17 12:45 79 118/41 07/31/17 12:30 89 104/54 07/31/17 12:15 91 146/62 07/31/17 12:00 92 130/55 07/31/17 12:00 97 BiPAP 6.0 07/31/17 11:57 36.8 93 18 118/66 (83) 94 6.0 07/31/17 11:45 87 131/51 07/31/17 11:15 93 118/66 07/31/17 11:00 90 131/70 07/31/17 10:30 92 121/59 07/31/17 10:20 36.6 89 117/59 (78) 07/31/17 08:00 Oxymask 6.0 07/31/17 07:54 36.8 101 20 109/57 (74) 94 6.0 07/31/17 06:58 87 20 95 Mask 7.0 07/31/17 04:30 36.5 98 18 112/65 (81) 98 Oxymask 11.0 07/31/17 04:28 97 BiPAP 8.0 07/31/17 02:07 84 20 92 BiPAP/CPAP 5.0 07/31/17 02:07 84 92 5.0 07/31/17 00:08 97 BiPAP 8.0 07/30/17 23:56 36.6 103 19 97/59 (72) 94 CPAP 07/30/17 22:44 103 96 5.0 07/30/17 20:00 97 BiPAP 8.0 07/30/17 19:30 36.7 97 18 112/61 (78) 95 Nebulizer 07/30/17 19:26 94 20 91 Mask 10.0 07/30/17 16:00 93 BiPAP 07/30/17 15:48 36.9 102 22 133/70 (91) 90 BiPAP Physical Exam General Appearance: WD/WN, no apparent distress Eyes: normal inspection, EOMI, sclerae normal ENT: normal ENT inspection, pharynx normal Neck: supple, no adenopathy, trachea midline Respiratory/Chest: chest non-tender, no respiratory distress, no accessory muscle use, + rales Cardiovascular: regular rate, rhythm, no gallop, no murmur Abdomen: normal bowel sounds, non tender, soft, no organomegaly Extremities: non-tender, no calf tenderness Neurologic/Psychiatric: alert, oriented x 3 Skin: normal color, warm/dry, no rash Lymphatic: no adenopathy Laboratory Results RUN DATE: 07/31/17 [facility] LAB PAGE 1 RUN TIME: 1248 Specimen Inquiry PATIENT: CHANO ANDERSON LOC: [facility] U # : [id number] AGE/SX: 61/M ROOM: E221 REG : 07/05/[address]: Rober Stern D.O : 1955 BED: 1 DIS : STATUS: ADM IN TLOC: SPEC #: [id number] HENRRY: 07/30/17-UNK STATUS: RES REQ #: [id number] RECD: 07/30/[address] [facility] [address]: Muriel Clark M.D. SOURCE: PLEURAL FL ENTR: 07/30/[address] [facility] [address]: Rober Stern D.O. [facility]: Hunter Anthony D.O. Bell, Evan T MD Duncan, Angela Fitch, Sasha Lau M.D. Lieb, James V. D.O. Long, Ronald M.D. Noor, Rahiba ., M.D. Oppermann, Brian P., M.D. Roe, Kevin, D.O. Sefter, John C., Rashaun Mckeon M.D. Schneekloth, Lauren ., M.D. Stevens, Jessica A. , Magdy Aceves M.D. ORDERED: AER/TD CULTSMR COMMENTS: Specimen Comment Tube #2 Has Specimen Been Obtained/Collected? Y Procedure Result Verified Site GRAM STAIN Final 07/30/17-191 RESULT NO ORGANISMS SEEN FEW POLYS Phoned results to ALEX RODRÍGUEZ on 07/30/17 at 1909 by Nisha Gonzalez. Results were verbalized back to OR GUERLINE/TD CULT Preliminary 07/31/17-1248 NO GROWTH TO DATE. END OF REPORT Last 24 Hours Test 07/30/17 16:19 07/30/17 18:25 07/30/17 20:34 07/31/17 04:58 Bedside Glucose 159 mg/dl 184 mg/dl Total Bilirubin 0.4 mg/dl Lactate Dehydrogenase 1304 U/L Total Protein 4.3 gm/dl Albumin 1.3 gm/dl White Blood Count 13.32 K/uL Red Blood Count 3.00 M/uL Hemoglobin 9.0 g/dL Hematocrit 26.3 % Mean Corpuscular Volume 87.7 fL Mean Corpuscular Hemoglobin 30.0 pg Mean Corpuscular Hemoglobin Concent 34.2 g/dl RDW Standard Deviation 58.3 fL RDW Coefficient of Variation 20.4 % Platelet Count 134 K/uL Mean Platelet Volume 11.5 fL Nucleated RBC Absolute Count (auto) 0.80 K/uL Nucleated Red Blood Cells % 6.0 % Platelet Estimate NORMAL Activated Partial Thromboplast Time 31.5 SECONDS Partial Thromboplastin Ratio 1.2 Sodium Level 130 mmol/L Potassium Level 4.9 mmol/L Chloride Level 98 mmol/L Carbon Dioxide Level 18 mmol/L Anion Gap 14.0 mmol/L Blood Urea Nitrogen 144 mg/dl Creatinine 5.32 mg/dl Est Creatinine Clear Calc Drug Dose 14.7 ml/min Estimated GFR () 12.3 Estimated GFR (Non- 10.6 BUN/Creatinine Ratio 27.1 Random Glucose 221 mg/dl Calcium Level 7.0 mg/dl Phosphorus Level 7.0 mg/dl Magnesium Level 2.0 mg/dl Test 07/31/17 06:49 07/31/17 11:17 Bedside Glucose 209 mg/dl 126 mg/dl Patient Name: CHANO ANDERSON Unit Number: [id number] Dictated: 01/07/18 1506 Transcribed: 07/30/17 150 JA Printed Date/Time: [~ rep prt dt]/[~ rep prt tm] [~ rep ct labl] - [~ rep ct ivnm] [facility] [place] [address] Dictated: 07/30/171505 Transcribed: 07/30/17 150 JA Printed Date/Time: [~ rep prt dt]/[~ rep prt tm] [~ rep ct labl] - [~ rep ct ivnm] CT ANGIOGRAPHY OF THE CHEST, PULMONARY EMBOLUS PROTOCOL CLINICAL HISTORY: Acute hypoxic respiratory failure. Renal cell carcinoma. COMPARISON STUDY: Chest CT July 14, 2017 and VQ scan July 29, 2017 and chest radiograph July 28, 2017. TECHNIQUE: Patient was premedicated for IV dye allergy. Following IV administration of 99 mL of [id number]-320, helical axial images of the chest were obtained utilizing the pulmonary embolus protocol. Maximal intensity projections and sagittal and coronal reformats were viewed on an independent 3D workstation. IV contrast was administered without complication. A dose lowering technique was utilized adhering to the principles of ALARA. CT DOSE: 602.79 mGy.cm FINDINGS: No pulmonary emboli are identified although the the segmental and subsegmental pulmonary arteries are suboptimally assessed due to respiratory motion. The size of the heart is normal. There is a trace pericardial effusion. There is no evidence of thoracic aortic dissection. A mildly enlarged retrocrural lymph node is unchanged since CT of July 14, 2017. A small left pleural effusion has slightly increased in size since that exam. A large right pleural effusion has significantly increased in size since prior CT of July 14, 2017. There is associated right lower lobe compressive atelectasis. Extensive groundglass opacity throughout the lungs has significantly progressed since exam July 14, 2017. Additional multifocal airspace consolidation is noted, most evident within the right lung. There is no pneumothorax. There is no pneumomediastinum. No cavitation is a identified. No suspicious osseous lesions are shown within the bony thorax. Hyperdense material within the gallbladder is noted. There may be mild pericholecystic infiltration. A few indeterminate right renal lesions are better depicted on prior abdominal CT. IMPRESSION: 1. No central pulmonary emboli identified. Exam significantly compromised by respiratory motion artifact which decreases sensitivity for detection of segmental and subsegmental pulmonary emboli. 2. Significant increase in size of a large right effusion since prior chest CT of July 14, 2017. Associated compressive right lower lobe atelectasis. Slight increase in size of a small left pleural effusion. 3. Extensive groundglass opacities with consolidation throughout the lungs which has progressed since exam July 14, 2017. Differential considerations include pneumonia, pulmonary edema, cryptogenic organizing pneumonia and ARDS. 4. Layering hyperdense material within the gallbladder with mild pericholecystic infiltration. No gallbladder distention. Electronically signed by: Lei Gan M.D. 07/30/2017 3:18 PM Dictated Date/Time: 07/30/2017 3:06 PM The status of this report is Signed. Draft = Not yet reviewed or approved by Radiologist. Signed = Reviewed and approved by Radiologist. <AttendingPhy>Rober Stern D.O.</AttendingPhy> <FamilyPhy>Salvador Muller M.D.</FamilyPhy> <PrimaryPhy>Salvador Muller M.D.</PrimaryPhy> <UnitNumber> [id number]</UnitNumber> <VisitNumber>[id number]</VisitNumber> <PatientName> CHANO ANDERSON</PatientName> <DateOfBirth>1955</DateOfBirth> <Location>C.2T </Location> <ServiceDate></ServiceDate> <MNE>ESINDI</MNE> <OrderingPhy>Muriel Clark M.D.</OrderingPhy> <OrderingPhyMNE>f rep ord dr caldera</OrderingPhyMNE> < DictatingPhyMNE>f rep dict dr caldera</DictatingPhyMNE> <CCListMNE>f rep ct verenice</ CCListMNE> <AdmittingPhyMNE>f pt admit dr caldera</AdmittingPhyMNE> <AttendingPhyMNE >f pt attend dr caldera</AttendingPhyMNE> <ConsultingPhyMNE>f pt consult dr caldera</ConsultingPhyMNE> <FamilyPhyMNE>f pt fam dr caldera</FamilyPhyMNE> <OtherPhyMNE>f pt other dr caldera</OtherPhyMNE> < PrimaryPhyMNE>f pt prim care dr caldera</PrimaryPhyMNE> <ReferringPhyMNE>f pt referring dr caldera</ReferringPhyMNE> Assessment and Plan 61-year-old male with metastatic renal cell carcinoma with left hand cellulitis , subsequent development of pneumonitis, C difficile infection, and then 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 OR cultures have grown Cecilia glabrata, and have added caspofungin as this species often fluconazole resistant. Pleural fluid studies not consistent with empyema, cultures are negative. Continue present antibiotics for now. Will follow.
[2017-07-31] MEDS ORDERED: INSULIN GLARGINE SOLOSTAR 100 UNITS/ML 3 ML PEN SC SCH (21:00)
[2017-08-01] VITALS (16 sets, daily range): BP systolic 121–149; BP diastolic 66–70; PULSE 75–100; TEMP 36.4–37; O2SAT 90–94; BMI 27.1
[2017-08-01] MEDS: IPRATROPIUM BROMIDE NEB SOLN 0.02% 2.5 ML VIAL INH SCH ×4 (02:31→19:58)
[2017-08-01] MEDS: LEVALBUTEROL 0.63MG/3 ML NEB INH SCH ×4 (02:31→19:58)
[2017-08-01] MEDS: HEPARIN SOD 5000 UNIT/0.5 ML CARP SQ SCH ×3 (06:21→22:12)
[2017-08-01] MEDS: CHECK FENTANYL PATCH PLACEMENT SCH ×3 (08:00→16:16)
[2017-08-01 08:19] LABS: MEAN CORPUSCULAR HGB CONC 33.5 g/dl (32-36)
[2017-08-01 08:22] LABS: HEMATOCRIT 25.1 % (42-52); HEMOGLOBIN 8.4 g/dL (14.0-18.0); MEAN CELL VOLUME 88.7 fL (80-100); MEAN CORPUSCULAR HEMOGLOBIN 29.7 pg (25-34); RED CELL DISTRIBUTION WIDTH CV 20.6 % (11.5-14.5); WHITE BLOOD COUNT 12.02 K/uL (4.8-10.8)
[2017-08-01 09:01] LABS: PLATELET COUNT 110 K/uL (130-400)
[2017-08-01] MEDS: METHADONE HCL 10 MG TAB PO SCH ×2 (09:04→21:22)
[2017-08-01] MEDS: METOPROLOL TARTRATE 100 MG TAB PO SCH ×2 (09:04→21:25)
[2017-08-01] MEDS: LISINOPRIL 40 MG TAB PO SCH (09:05)
[2017-08-01] MEDS: FUROSEMIDE 40 MG TAB PO SCH (09:05)
[2017-08-01] MEDS: LACTOBACILLUS ACIDOPHILUS (FLORANEX) TAB PO SCH ×3 (09:05→21:23)
[2017-08-01] MEDS: AMLODIPINE BESYLATE 5 MG TAB PO SCH (09:06)
[2017-08-01] MEDS: INSULIN ASPART 100 UNITS/ML 3 ML PEN SC SCH ×4 (09:12→21:00)
[2017-08-01 09:30] LABS: CALCIUM 7.1 mg/dl (8.5-10.1); CREATININE 3.89 mg/dl (0.60-1.40); POTASSIUM 4.5 mmol/L (3.5-5.1)
--- NOTE | 2017-08-01 09:38 | Palliative Care Progress Note ---
Palliative Care Progress Note Date of Service Aug 01, 2017. Subjective Pt evaluation today including: conversation w/ patient, physical exam, chart review, lab review, review of inpatient medication list Pain: Well controlled per pt PO Intake: Poor Pt reports pain is well controlled - he is requesting a prn morphine this am - his last dose was at 6 pm on 07/30. Pt's pain increases with movement - he may require more prns when he starts getting OOB. L hand pain comes and goes - I still suspect RSD. His back pain is 0/10, and he reports his abd pain comes and goes, He moved his bowels yesterday. Encouraged pt to use incentive spirometer during commercials while watching TV - his sats were 87 this am and his O2 was increased to 10 L via face mask. Pt in better spirits and more animated today on exam. Pt slowly improving. Less edema s/p HD yesterday. Review of Systems Constitutional: No fever Eyes: No eye pain ENT: No hearing loss Respiratory: + shortness of breath Cardiac: No chest pain Abdomen: + pain, No nausea Male : No dysuria Neurologic: + weakness Psychiatric: + anxiety Endo: + fatigue Skin: + problem reported (swelling and redness L hand) Objective Vital Signs Date Time Temp Pulse Resp B/P (MAP) Pulse Ox O2 Delivery O2 Flow Rate FiO2 08/01/17 08:04 37.0 75 16 149/68 (95) 90 08/01/17 07:30 85 16 92 Mask 8.0 08/01/17 04:00 90 BiPAP 08/01/17 03:50 36.4 93 22 135/68 (90) 92 BiPAP 08/01/17 02:31 84 16 91 BiPAP/CPAP 40 08/01/17 00:01 90 BiPAP 07/31/17 23:45 37.0 95 22 118/66 (83) 90 Oxymask 8.0 07/31/17 20:00 92 Oxymask 8.0 07/31/17 19:35 36.6 103 16 130/66 (87) 92 Oxymask 8.0 07/31/17 16:00 97 Oxymask 8.0 07/31/17 15:35 36.5 97 16 132/74 (93) 93 Oxymask 8.0 07/31/17 14:57 100 92 5.0 07/31/17 14:56 100 15 85 BiPAP/CPAP 6.0 07/31/17 14:05 36.6 92 136/69 (91) 07/31/17 13:45 58 111/68 07/31/17 13:30 107 140/73 07/31/17 13:15 86 61/47 07/31/17 13:00 89 104/51 07/31/17 12:45 79 118/41 07/31/17 12:30 89 104/54 07/31/17 12:15 91 146/62 07/31/17 12:00 92 130/55 07/31/17 12:00 97 BiPAP 6.0 07/31/17 11:57 36.8 93 18 118/66 (83) 94 6.0 07/31/17 11:45 87 131/51 07/31/17 11:15 93 118/66 07/31/17 11:00 90 131/70 07/31/17 10:30 92 121/59 07/31/17 10:20 36.6 89 117/59 (78) Physical Exam General Appearance: no apparent distress Eyes: EOMI ENT: hearing grossly normal Neck: supple Respiratory/Chest: + decreased breath sounds (both bases, no rhonchi or rales) Cardiovascular: regular rate, rhythm Abdomen: + tenderness (over surgical site), + pertinent finding (diminished BS) Extremities: + pertinent finding (edema improved UE and LE as well as face) Neurologic/Psychiatric: alert, normal mood/affect Skin: + pertinent finding (redness, peeling and swelling of L hand) Laboratory Results Last 24 Hours Test 07/31/17 11:17 07/31/17 16:32 07/31/17 16:49 07/31/17 17:14 Bedside Glucose 126 mg/dl 62 mg/dl 69 mg/dl 102 mg/dl Test 07/31/17 20:21 08/01/17 06:50 08/01/17 07:50 Bedside Glucose 168 mg/dl 226 mg/dl White Blood Count 12.02 K/uL Red Blood Count 2.83 M/uL Hemoglobin 8.4 g/dL Hematocrit 25.1 % Mean Corpuscular Volume 88.7 fL Mean Corpuscular Hemoglobin 29.7 pg Mean Corpuscular Hemoglobin Concent 33.5 g/dl RDW Standard Deviation 61.0 fL RDW Coefficient of Variation 20.6 % Platelet Count 110 K/uL Nucleated RBC Absolute Count (auto) 0.70 K/uL Nucleated Red Blood Cells % 5.9 % Platelet Estimate DECREASED Assessment and Plan (1) 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 (2) Cellulitis of left hand Status: Acute Assessment & Plan: Improving - still suspect RSD - can be addressed after pt completes rehab - I will f/u as an outpt (3) ESRD (end stage renal disease) on dialysis Status: Acute Assessment & Plan: Started dialysis the end of May - cont 3x/week (4) Hypoxemia requiring supplemental oxygen Status: Acute Assessment & Plan: Improving - only used BiPAP QHS - tolerating O2 via face mask. Encouraged to use incentive spirometer (5) High risk medication use Status: Acute Assessment & Plan: Will cont to monitor med list for meds that effect methadone metabolism and adjust methadone if needed - no adjustments required at this time Total time: 35 min with > 50% time spent reviewing pain regime on the unit and assessing pt Palliative Performance Scale: 30 % Continued [facility] stay due to: inadequate po fluid intake, ambulation difficulties , other (requiring O2 at 8-10 L ) Discharge planning: rehab hospital, other (hope to be able to transfer to rehab when medically stable) Counseling and Coordination Total time spent 35 min with > 50 % of time spent discussing POC and encouraging pt.
[2017-08-01] MEDS ORDERED: INSULIN ASPART 100 UNITS/ML 3 ML PEN SC SCH ×2 (10:00→21:00)
[2017-08-01] MEDS ORDERED: BOOST GLUCOSE CONTROL PO SCH (10:00)
--- NOTE | 2017-08-01 11:06 | Nephrology Progress Note ---
Nephrology Progress Note Date of Service Aug 01, 2017. Chief Complaint Follow-up for end-stage renal disease on hemodialysis. Roland Causey Was seen and examined in his room this morning. He feels better, has been tolerating soft diet. Continues to make urine. Had dialysis yesterday, currently electrolyte acceptable. Review of Systems A complete review of systems was performed. Pertinent positives are noted above. All other systems are negative. Vital Signs Last 8 Hrs Date Time Temp Pulse Resp B/P (MAP) Pulse Ox O2 Delivery O2 Flow Rate FiO2 08/01/17 08:04 37.0 75 16 149/68 (95) 90 08/01/17 07:30 85 16 92 Mask 8.0 08/01/17 04:00 90 BiPAP 08/01/17 03:50 36.4 93 22 135/68 (90) 92 BiPAP Last Recorded Weight Weight (Kilograms): 85.800 Physical Exam GENERAL: Middle-aged male, AAA x 3, pleasant, ill-appearing, not in any distress. NECK: Supple, no JVD. RESPIRATORY: Normal breathing efforts, no accessory muscle use, clear to auscultation bilaterally, no wheezes or rales. CARDIOVASCULAR: S1, S2 normal, rate rhythm regular. EXTREMITY: Bilateral upper extremity edema, more on left upper extremity, left brachiocephalic AV fistula with thrill and bruit. NEURO: speech fluent. PSYCHIATRY: Normal mood and judgment Family History Cervical cancer Diabetes mellitus Heart disease Hypertension Myocardial infarction Pancreatic cancer Prostate cancer Negative for CKD/ESRD Social History Smokeless Tobacco Use: No Alcohol Use: none Drug Use: none Marital Status: single Housing Status: lives alone Occupation: disabled Single, retired. Formerly worked for [employer]. Never a smoker. Laboratory Results Past 24 Hours 08/01/17 07:50 08/01/17 07:50 Test 07/31/17 11:17 07/31/17 16:32 07/31/17 16:49 07/31/17 17:14 Bedside Glucose 126 mg/dl (70-99) 62 mg/dl (70-99) 69 mg/dl (70-99) 102 mg/dl (70-99) Test 07/31/17 20:21 08/01/17 06:50 08/01/17 07:50 Bedside Glucose 168 mg/dl (70-99) 226 mg/dl (70-99) Red Blood Count 2.83 M/uL (4.7-6.1) Mean Corpuscular Volume 88.7 fL (80-100) Mean Corpuscular Hemoglobin 29.7 pg (25-34) Mean Corpuscular Hemoglobin Concent 33.5 g/dl (32-36) RDW Standard Deviation 61.0 fL (36.4-46.3) RDW Coefficient of Variation 20.6 % (11.5-14.5) Nucleated RBC Absolute Count (auto) 0.70 K/uL (0-0) Nucleated Red Blood Cells % 5.9 % Platelet Estimate DECREASED Anion Gap 12.0 mmol/L (3-11) Est Creatinine Clear Calc Drug Dose 20.1 ml/min Estimated GFR () 17.9 Estimated GFR (Non- 15.4 BUN/Creatinine Ratio 24.7 (10-20) Calcium Level 7.1 mg/dl (8.5-10.1) Allergies Coded Allergies: Iodinated Diagnostic Agents (Verified Allergy, Unknown, oil based, severe headaches, 06/20/17) EVENT OCCURED IN 1971, PT STATES HE HAS HAD 3 DIFFERENT WATER BASED IVP DYES WITH NO ISSUE Medications Current Inpatient Medications Medications (Trade) Dose Ordered Sig/Edward Route Start Time Stop Time Status Last Admin Dose Admin Lactobacillus Acidophilus (Floranex Tab) 2 tab TID PO 07/06/17 09:00 08/05/17 08:59 08/01/17 09:05 2 TAB Lisinopril (Zestril Tab) 40 mg DAILY PO 07/06/17 09:00 08/05/17 08:59 08/01/17 09:05 40 MG Miscellaneous Information (Check Fentanyl Patch Placement) 1 ea QS N/A 07/06/17 08:00 08/05/17 07:59 08/01/17 08:00 1 EA Glucose (Glucose 40% Gel) 15-30 GRAMS 15 GRAMS... UD PRN PO 07/06/17 04:15 08/05/17 04:14 Glucose (Glucose Chew Tab) 4-8 Tablets 4 Tabl... UD PRN PO 07/06/17 04:15 08/05/17 04:14 Dextrose (Dextrose 50% 50ML Syringe) 25-50ML OF 50% DW IV FOR... UD PRN IV 07/06/17 04:15 08/05/17 04:14 07/06/17 05:40 25 ML Glucagon (Glucagon Inj) 1 mg UD PRN SQ 07/06/17 04:15 08/05/17 04:14 Heparin Sodium (Porcine) (Heparin 100 Unit/ml 5ml Flush) 5 ml PRN PRN IV 07/07/17 02:45 08/06/17 02:44 Future hold 07/26/17 01:15 5 ML Ondansetron HCl (Zofran Inj) 4 mg Q4H PRN IV 07/11/17 03:00 08/10/17 02:59 07/17/17 21:50 4 MG Prochlorperazine Edisylate 5 mg/ Syringe 5 ml @ 5 mls/min Q4H PRN IV 07/11/17 14:00 08/10/17 13:59 Lactulose (Chronulac Syrup) 30 gm Q4H PRN PO 07/11/17 16:45 08/10/17 16:44 Miscellaneous (Fentanyl Patch Remove & Waste) 1 ea Q3D@0859 N/A 07/22/17 08:59 08/21/17 08:58 07/31/17 08:11 1 EA Fentanyl (Duragesic Patch) 25 mcg Q3D@0900 TD 07/22/17 09:00 08/05/17 08:59 07/31/17 08:10 25 MCG Ergocalciferol (Vitamin D Cap) 50,000 interunit Q7D@0900 PO 07/20/17 09:00 08/19/17 08:59 07/20/17 09:32 50,000 INTERUNIT Hydralazine HCl (HydrALAZINE INJ) 5 mg Q4 PRN IV. 07/21/17 17:15 08/20/17 17:14 Future Hold 07/25/17 23:45 5 MG Hydralazine HCl (HydrALAZINE INJ) 5 mg TID IV. 07/21/17 21:00 08/20/17 20:59 Future Hold 07/30/17 08:33 5 MG Fentanyl Citrate (Fentanyl Inj) Fentanyl 25-50 mcg... Q4H PRN IV 07/21/17 20:45 08/04/17 20:44 07/24/17 05:47 50 MCG Miscellaneous Information (Consult Glycemic Management Pharmacy) 1 ea UD PRN N/A 07/23/17 13:14 08/22/17 13:13 Morphine Sulfate (MoRPHine SULFATE INJ) 2 mg Q3RWA PRN IV 07/24/17 11:30 08/07/17 11:29 07/30/17 17:57 2 MG Caspofungin 50 mg/ Sodium Chloride 260 ml @ 250 mls/hr Q24H IV 07/28/17 12:00 08/06/17 11:59 07/31/17 14:54 250 MLS/HR Insulin Aspart (novoLOG ASPART) SLIDING SCALE G... ACHS SC 07/27/17 11:30 08/26/17 11:29 08/01/17 09:12 13 UNITS Methadone HCl (Dolophine Tab) 20 mg BID PO 07/28/17 21:00 08/08/17 08:59 08/01/17 09:04 20 MG Ipratropium [place] (Atrovent 0.02% 0.5MG/2.5ML Neb) 0.5 mg Q6R INH 07/29/17 09:00 08/28/17 08:59 08/01/17 07:30 0.5 MG Levalbuterol (Xopenex 0.63 Mg/ 3 Ml Neb) 0.63 mg Q6R INH 07/29/17 09:00 08/28/17 08:59 08/01/17 07:30 0.63 MG Metoprolol Tartrate (Lopressor Tab) 100 mg BID PO 07/29/17 21:00 08/28/17 20:59 08/01/17 09:04 100 MG Amlodipine Besylate (Norvasc Tab) 10 mg QAM PO 07/30/17 09:00 08/29/17 08:59 08/01/17 09:06 10 MG Ioversol (Optiray 320) 111 ml UD PRN IV 07/30/17 13:30 08/03/17 13:29 Diphenhydramine HCl (Benadryl Inj) 50 mg 4XDQ4H PRN IV 07/30/17 13:30 08/29/17 13:29 Heparin Sodium (Porcine) (Heparin Sq 5000 Unit/0.5ml) 5,000 unit Q8 SQ 07/30/17 22:00 08/29/17 21:59 08/01/17 06:21 5,000 UNIT Prednisone (PredniSONE TAB) 20 mg BIDM PO 07/31/17 07:30 08/30/17 07:29 08/01/17 09:05 20 MG Insulin Glargine (Lantus Solostar Pen) 14 units HS SC 08/01/17 21:00 08/31/17 20:59 Furosemide (Lasix Tab) 40 mg QAM PO 08/01/17 09:00 08/31/17 08:59 08/01/17 09:05 40 MG Enteral Nutritional Formula (Boost Glucose Control) 1 can BID@1000,2100 PO 08/01/17 10:00 08/31/17 09:59 Insulin Aspart (novoLOG ASPART) SLIDING SCALE G... BID@1000,2100 SC 08/01/17 21:00 08/31/17 20:59 Insulin Aspart (novoLOG ASPART) SLIDING SCALE G... TODAY@1000 SC 08/01/17 10:00 08/01/17 14:00 Impression (1) Cellulitis of left hand (2) ESRD (end stage renal disease) on dialysis (3) Renal cell carcinoma (4) Anemia (5) Diabetes type 2, controlled Mr. Christy has ESRD and metastatic RCC. He underwent left nephrectomy in 2015. Patient did not tolerate Sutent due to high grade proteinuria; Opdivo caused arthralgia, colitis and possible pneumonitis. He was most recently treated w/ Cabometyx. This was complicated by abdominal wall hematoma a intestinal perforation. He remains on steroids for interstitial lung disease versus LO[employer]. Mr. Christy was admitted with persistent soft tissue infection of the left hand. Patient tested positive for C. Difficile colitis. He has had a prolonged and complicated hospital course. On 07/21 Mr. Christy was diagnosed with intestinal perforation and required emergency laparotomy. 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 Partial colectomy w/ reanastomosis was completed Mr. Christy's dialysis was complicated by prolonged bleeding from the AVF following treatment. 07/23 duplex study demonstrated high grade venous outflow stenosis. Fistulogram with coil embolization completed 07/25/16. Mr. Christy developed acute hypoxic respiratory failure and respiratory distress requiring NIPPV. Heparin gtt started for suspected PE. Recommendations -- BP, electrolyte and volume status are currently appropriate. -- Protect LUE AVF -- Epogen with dialysis -- Treatment for renal cell carcinoma on hold due to acute comorbid conditions -- Calcitriol and CaCO3 on hold due to recent abdominal surgery, will resume once patient on regular oral diet
[2017-08-01] MEDS ORDERED: INSULIN GLARGINE SOLOSTAR 100 UNITS/ML 3 ML PEN SC ONE (12:00)
[2017-08-01] MEDS: CASPOFUNGIN INJ 50 MG in SODIUM CHLORIDE 0.9% 250ML 250 ML IV SCH (12:21)
[2017-08-01] MEDS: MoRPHine SULFATE 2 MG/ML CARP IV PRN (12:37)
--- NOTE | 2017-08-01 14:25 | Hospitalist Progress Note ---
Hospitalist Progress Note Date of Service Aug 01, 2017. (Ledy Bhakta ., PA-C) Subjective Pt evaluation today including: conversation w/ patient, physical exam, lab review, review of inpatient medication list Patient sitting in bedside chair. Eating lunch- tolerating well. Had BM yesterday. No diarrhea. Pain is well controlled. Worked w/ PT- +weakness/fatigued easily. +SOB Patient denies any fever, chills, sweats, lightheadedness, dizziness, vision changes, CP, palpitations, edema, wheezing, cough, abdominal pain, nausea, vomiting, diarrhea, urinary symptoms, melena, numbness/tingling, anxiety/ depression, active bleeding, or new skin discoloration/changes. (Ledy Bhakta ., PA-C) Medications Current Inpatient Medications Medications (Trade) Dose Ordered Sig/Edward Route Start Time Stop Time Status Last Admin Dose Admin Lactobacillus Acidophilus (Floranex Tab) 2 tab TID PO 07/06/17 09:00 08/05/17 08:59 08/01/17 09:05 2 TAB Lisinopril (Zestril Tab) 40 mg DAILY PO 07/06/17 09:00 08/05/17 08:59 08/01/17 09:05 40 MG Miscellaneous Information (Check Fentanyl Patch Placement) 1 ea QS N/A 07/06/17 08:00 08/05/17 07:59 08/01/17 08:00 1 EA Glucose (Glucose 40% Gel) 15-30 GRAMS 15 GRAMS... UD PRN PO 07/06/17 04:15 08/05/17 04:14 Glucose (Glucose Chew Tab) 4-8 Tablets 4 Tabl... UD PRN PO 07/06/17 04:15 08/05/17 04:14 Dextrose (Dextrose 50% 50ML Syringe) 25-50ML OF 50% DW IV FOR... UD PRN IV 07/06/17 04:15 08/05/17 04:14 07/06/17 05:40 25 ML Glucagon (Glucagon Inj) 1 mg UD PRN SQ 07/06/17 04:15 08/05/17 04:14 Heparin Sodium (Porcine) (Heparin 100 Unit/ml 5ml Flush) 5 ml PRN PRN IV 07/07/17 02:45 08/06/17 02:44 Future hold 07/26/17 01:15 5 ML Ondansetron HCl (Zofran Inj) 4 mg Q4H PRN IV 07/11/17 03:00 08/10/17 02:59 07/17/17 21:50 4 MG Prochlorperazine Edisylate 5 mg/ Syringe 5 ml @ 5 mls/min Q4H PRN IV 07/11/17 14:00 08/10/17 13:59 Lactulose (Chronulac Syrup) 30 gm Q4H PRN PO 07/11/17 16:45 08/10/17 16:44 Miscellaneous (Fentanyl Patch Remove & Waste) 1 ea Q3D@0859 N/A 07/22/17 08:59 08/21/17 08:58 07/31/17 08:11 1 EA Fentanyl (Duragesic Patch) 25 mcg Q3D@0900 TD 07/22/17 09:00 08/05/17 08:59 07/31/17 08:10 25 MCG Ergocalciferol (Vitamin D Cap) 50,000 interunit Q7D@0900 PO 07/20/17 09:00 08/19/17 08:59 07/20/17 09:32 50,000 INTERUNIT Hydralazine HCl (HydrALAZINE INJ) 5 mg Q4 PRN IV. 07/21/17 17:15 08/20/17 17:14 Future Hold 07/25/17 23:45 5 MG Hydralazine HCl (HydrALAZINE INJ) 5 mg TID IV. 07/21/17 21:00 08/20/17 20:59 Future Hold 07/30/17 08:33 5 MG Fentanyl Citrate (Fentanyl Inj) Fentanyl 25-50 mcg... Q4H PRN IV 07/21/17 20:45 08/04/17 20:44 07/24/17 05:47 50 MCG Miscellaneous Information (Consult Glycemic Management Pharmacy) 1 ea UD PRN N/A 07/23/17 13:14 08/22/17 13:13 Morphine Sulfate (MoRPHine SULFATE INJ) 2 mg Q3RWA PRN IV 07/24/17 11:30 08/07/17 11:29 08/01/17 12:37 2 MG Caspofungin 50 mg/ Sodium Chloride 260 ml @ 250 mls/hr Q24H IV 07/28/17 12:00 08/06/17 11:59 08/01/17 12:21 250 MLS/HR Insulin Aspart (novoLOG ASPART) SLIDING SCALE G... ACHS SC 07/27/17 11:30 08/26/17 11:29 08/01/17 11:00 18 UNITS Methadone HCl (Dolophine Tab) 20 mg BID PO 07/28/17 21:00 08/08/17 08:59 08/01/17 09:04 20 MG Ipratropium [place] (Atrovent 0.02% 0.5MG/2.5ML Neb) 0.5 mg Q6R INH 07/29/17 09:00 08/28/17 08:59 08/01/17 07:30 0.5 MG Levalbuterol (Xopenex 0.63 Mg/ 3 Ml Neb) 0.63 mg Q6R INH 07/29/17 09:00 08/28/17 08:59 08/01/17 07:30 0.63 MG Metoprolol Tartrate (Lopressor Tab) 100 mg BID PO 07/29/17 21:00 08/28/17 20:59 08/01/17 09:04 100 MG Amlodipine Besylate (Norvasc Tab) 10 mg QAM PO 07/30/17 09:00 08/29/17 08:59 08/01/17 09:06 10 MG Ioversol (Optiray 320) 111 ml UD PRN IV 07/30/17 13:30 08/03/17 13:29 Diphenhydramine HCl (Benadryl Inj) 50 mg 4XDQ4H PRN IV 07/30/17 13:30 08/29/17 13:29 Heparin Sodium (Porcine) (Heparin Sq 5000 Unit/0.5ml) 5,000 unit Q8 SQ 07/30/17 22:00 08/29/17 21:59 08/01/17 06:21 5,000 UNIT Prednisone (PredniSONE TAB) 20 mg BIDM PO 07/31/17 07:30 08/30/17 07:29 08/01/17 09:05 20 MG Furosemide (Lasix Tab) 40 mg QAM PO 08/01/17 09:00 08/31/17 08:59 08/01/17 09:05 40 MG Enteral Nutritional Formula (Boost Glucose Control) 1 can BID@1000,2100 PO 08/01/17 10:00 08/31/17 09:59 Insulin Aspart (novoLOG ASPART) SLIDING SCALE G... BID@1000,2100 SC 08/01/17 21:00 08/31/17 20:59 Insulin Aspart (novoLOG ASPART) SLIDING SCALE G... TODAY@1000 SC 08/01/17 10:00 08/01/17 14:00 Insulin Glargine (Lantus Solostar Pen) see protocol text HS SC 08/01/17 21:00 08/31/17 20:59 (Ledy Bhakta, SARITA) Objective Vital Signs Date Time Temp Pulse Resp B/P (MAP) Pulse Ox O2 Delivery O2 Flow Rate FiO2 08/01/17 12:12 37.0 90 20 139/66 (90) 94 Oxymask 10.0 08/01/17 08:04 37.0 75 16 149/68 (95) 90 08/01/17 08:00 94 Oxymask 10.0 08/01/17 07:30 85 16 92 Mask 8.0 08/01/17 04:00 90 BiPAP 08/01/17 03:50 36.4 93 22 135/68 (90) 92 BiPAP 08/01/17 02:31 84 16 91 BiPAP/CPAP 40 08/01/17 00:01 90 BiPAP 07/31/17 23:45 37.0 95 22 118/66 (83) 90 Oxymask 8.0 07/31/17 20:00 92 Oxymask 8.0 07/31/17 19:35 36.6 103 16 130/66 (87) 92 Oxymask 8.0 07/31/17 16:00 97 Oxymask 8.0 07/31/17 15:35 36.5 97 16 132/74 (93) 93 Oxymask 8.0 07/31/17 14:57 100 92 5.0 07/31/17 14:56 100 15 85 BiPAP/CPAP 6.0 07/31/17 14:05 36.6 92 136/69 (91) 1/8/18 13:45 58 111/68 07/31/17 13:30 107 140/73 07/31/17 13:15 86 61/47 07/31/17 13:00 89 104/51 07/31/17 12:45 79 118/41 (Ledy Bhakta, BROCKC) Physical Exam General Appearance: no apparent distress, + pertinent finding (chronically ill appearing; OxyMask on ) Eyes: normal inspection, PERRL ENT: hearing grossly normal Neck: supple Respiratory/Chest: no respiratory distress, no accessory muscle use Cardiovascular: regular rate, rhythm Abdomen: normal bowel sounds, non tender, soft, + pertinent finding (incision site C/D/I ) Extremities: no calf tenderness, + swelling (+2 pitting edema of bilateral lower extremities ), + pertinent finding (L hand w/out erythema, warmth, or drainage ) Neurologic/Psychiatric: alert, normal mood/affect, oriented x 3 Skin: warm/dry, no rash, + pallor (Ledy Bhakta, CHRISTEN-C) Laboratory Results Last 24 Hours Test 07/31/17 16:26 07/31/17 16:32 07/31/17 16:49 07/31/17 17:14 Bedside Glucose 61 mg/dl 62 mg/dl 69 mg/dl 102 mg/dl Test 07/31/17 20:21 08/01/17 06:50 08/01/17 07:50 08/01/17 11:26 Bedside Glucose 168 mg/dl 226 mg/dl 379 mg/dl White Blood Count 12.02 K/uL Red Blood Count 2.83 M/uL Hemoglobin 8.4 g/dL Hematocrit 25.1 % Mean Corpuscular Volume 88.7 fL Mean Corpuscular Hemoglobin 29.7 pg Mean Corpuscular Hemoglobin Concent 33.5 g/dl RDW Standard Deviation 61.0 fL RDW Coefficient of Variation 20.6 % Platelet Count 110 K/uL Nucleated RBC Absolute Count (auto) 0.70 K/uL Nucleated Red Blood Cells % 5.9 % Platelet Estimate DECREASED Sodium Level 136 mmol/L Potassium Level 4.5 mmol/L Chloride Level 99 mmol/L Carbon Dioxide Level 25 mmol/L Anion Gap 12.0 mmol/L Blood Urea Nitrogen 96 mg/dl Creatinine 3.89 mg/dl Est Creatinine Clear Calc Drug Dose 20.1 ml/min Estimated GFR () 17.9 Estimated GFR (Non- 15.4 BUN/Creatinine Ratio 24.7 Random Glucose 119 mg/dl Calcium Level 7.1 mg/dl (Ledy Bhakta, BROCKC) Assessment and Plan Mr. Christy is a 61 y/o M with PMH of ESRD on HD, RCC, DMII. Admitted for L hand cellulitis having failed outpatient management. Abdominal pain, found to have incidental rectus sheath hematoma, C.diff positive colitis and subsequent bowel perforation on 07/21, now s/p colectomy, anemia, and bilateral pneumonia on imaging. C. diff colitis, perforated jejunal bowel (suspected to result from chemo regimen) s/p colectomy, rectus sheath hematoma: - Monitoring on tele- no acute events - Surgical management as per surgery- POD #11: -- TPN completed on 07/29/17 - Advance diet from full liquids today - Underlying severe protein malnutrition, albumin 1.3- boost BID added - C.Diff + 07/12/17: Completed 9 days of PO Vancomycin - C. glabratum growth- ID recommending Caspofungin x10 days- last day of treatment on 08/06/17 - Pain controlled w/ Methadone and Morphine IV PRN Metastatic RCC s/p L nephrectomy, chronic pain: - Oncology following- holding treatment at this time due to acute issues- f/u outpatient - Palliative care following- appreciate recommendations for pain control- Methadone, Fentanyl, and Morphine PRN ESRD HD, secondary to RCC/ s/p left nephrectomy- HD on MWF: - Nephrology following - 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 on 07/23 - Vascular surgery consulted- s/p AVR repair on 07/25/17 - Hypocalcemia w/ vitamin D level of 9.4: Ergocalciferol 50,000 q7d indefinitely + daily D3 2000 when patient resumes oral intake- recheck levels in 12 weeks ESRD bone mineral disease: Resume Calcitriol and CaCO3 Left hand cellulitis- RESOLVED: - Initial MRI did not determine any osteomyelitis - ID consulted: treated initially with Ertapenem/Daptomycin, then transitioned to Cefepime- treated 07/22- 07/30 SOB, hypoxia, ?secondary to pulmonary edema vs cryptogenic organizing pneumonia/ drug related pneumonitis: - Continue O2 supplementation to maintain SaO2 >92%, wean as tolerated - Started on heparin drip on 07/26 for presumed PE- CTA 07/30/17 negative for PE, thus heparin drip stopped - Large R pleural effusion s/p thoracentesis completed 07/30/17- pleural pathology w/ no malignancy, pleural cultures growing yeast- on IV Caspofungin - IV Solu-Medrol- transitioned to Prednisone 20 mg BID on 07/31 - DuoNebs QID and PRN - Pulmonary following DMII: - BSG ACHS and ISS - Pharmacy consulted for glycemic management- on Lantus sliding scale Acute anemia- transfused a total of 6 u PRBCs: - Nephrology following- Epogen with dialysis - H&H- STABLE HTN, HLD: - Furosemide 40 mg PO daily - Amlodipine 10 mg daily, Metoprolol 100 mg PO BID, Lisinopril 40 mg daily - Hydralazine 100 mg TID held- BPs well controlled at this time - Monitor I&Os and daily weights - Simvastatin 20 mg HS held due to NPO status- will resume once tolerating regular diet BPH: Tamsulosin 0.4 mg PO daily held due to NPO status- will resume once tolerating regular diet DVT Prophylaxis: Heparin SQ TID Code Status: LEVEL I, FULL Dispo: Discharge uncertain- planning for [facility] at discharge- PT/OT and CM consulted- (Ledy Bhakta, SARITA) Reviewed: Pt Seen/Exam by Me (Rosenda Luis MD) History Physician Director Of Counterintelligence Supervision Note: I interviewed and examined the patient. Discussed with CHRISTEN Bhakta and agree with findings and plan as documented in the note. Any exceptions or clarifications are listed here: Tolerating mechanical soft diet today, no abdominal pain, did not move his bowels today. He was out of bed to chair for at least 4 hours for the first time in at least a week. He is still requiring high levels of oxygen via Oxymask. Vitals reviewed NAD, lying in bed, in good spirits, AAOx3 RRR no mgr lungs fairly clear bilat with decreased BS in the lower and middle lung calderon right greater than left Abd +BS soft NT, ND, incision midline with crusted blood centrally, mario in place, no erythema Ext 2+ + pitting edema in lower extremities, with significantly improved and only 1+ pitting edema in the LUE>RUE, left hand with a few small areas of blisters and scabs, no significant erythema Pt is a 61 yo male with a very complicated hospital course, here with left hand cellulitis, C. diff colitis, jejunal diverticulitis with perforation requiring emergency laparotomy, ESRD on HD, AV fistula stenosis, nephrotic syndrome, severe hypoalbuminemia and anasarca, HTN, metastatic RCC, DMII, anemia of CKD, and cryptogenic organizing PNA vs drug-induced pneumonitis, worsening pleural effusions. -pleural fluid exudative but no malignant cells on cytology, no growth on cx to date, appreciate Pulmonology consultation for further management -We'll check chest x-ray in the morning given continued high oxygen requirement to see if the effusions have reaccumulated -completed abx course for hand cellulitis, follow clinically, appreciate ID consult -recovering from bowel resection, tolerating regular diet, appreciate Surgery management-will need mario removed within the next week -ESRD on HD, nephrotic syndrome--> continue HD, appreciate Nephrology management -metastatic RCC with multiple adverse SEs from chemo regimens, appreciate Oncology consultation, f/u in office--> discussed with Dr. Dao to see what he thought of elevated/rising LDH? May be related to recent bowel surgery, however was rising prior to that-unclear at this point -Continue to mobilize out of bed and work towards weaning down O2 to get to rehab Documented By: Rosenda Luis (Rosenda Luis MD)
--- NOTE | 2017-08-01 14:49 | Pharmacy Progress Note ---
Pharmacy Glycemic Short Note 2 Date of Service Aug 01, 2017. ASSESSMENT: * See previous progress notes for more background info, in short: * Pt receiving SQ basal bolus insulin regimen for hyperglycemia secondary to baseline DM (outpatient regimen on hold),stress/infection, recent surgery, steroids * Steroids tapered to Prednisone 20mg PO BIDM * Patient is currently receiving an average of 25-40 units of SQ insulin per day depending on PO intake. Pt did require massive amounts of IV insulin (~110 units/day) contained in TPN when on TPN. * 18 units of basal insulin * 17 units of prandial/correctional insulin * BSGs ranging 62 - 379 mg/dl over the past 24hrs * Changes needed to insulin regimen: * AM Fasting BSG = 226 mg/dl {POC} but serum GLU = 119 mg/dl. Just started BID Lantus - will increase dose slightly since POC BSG is high but conservatively since GLU is in range. * Post-prandial BSGs continue to be a problem. Pt with LOW BSG yesteday afternoon secondary to large dose of NovoLog given in AM and then skipping lunch while at HD. Pt with critical high prior to lunch today, BSG = 379mg/dl. Discussed with nursing, she denies that patient is snacking. Will continue AM dose of Lantus to help offset BID prednisone hyperglycemia. PLAN FOR INPATIENT GLYCEMIC CONTROL: * Basal insulin * Lantus 6 units SQ AM + Lantus 14-18 units based on BSG * Bolus insulin * NovoLog per scale ACHS or Q6hrs while NPO * Goal Range: Low 110 mg/dL - High 140 mg/dL * Correction Factor: 20 mg/dL/unit * Nutritional / Prandial insulin per carb ratio of 1 unit per 7 grams CHO consumed
[2017-08-01] MEDS ORDERED: NURSING VERBAL MED ORDER ONE (18:45)
[2017-08-01] MEDS: BOOST GLUCOSE CONTROL PO SCH (21:00)
[2017-08-01] MEDS ORDERED: INSULIN GLARGINE SOLOSTAR 100 UNITS/ML 3 ML PEN SC SCH ×3 (21:00)
[2017-08-02] VITALS (28 sets, daily range): BP systolic 90–198; BP diastolic 56–102; PULSE 76–124; TEMP 36.4–36.8; O2SAT 82–96
[2017-08-02] MEDS: LEVALBUTEROL 0.63MG/3 ML NEB INH SCH ×4 (02:06→19:32)
[2017-08-02] MEDS: IPRATROPIUM BROMIDE NEB SOLN 0.02% 2.5 ML VIAL INH SCH ×4 (02:06→19:32)
[2017-08-02] MEDS: HEPARIN SOD 5000 UNIT/0.5 ML CARP SQ SCH ×3 (06:10→20:42)
[2017-08-02 07:04] LABS: MEAN CORPUSCULAR HGB CONC 33.2 g/dl (32-36); NUCLEATED RED BLOOD CELL ABS 0.37 K/uL (0-0)
--- NOTE | 2017-08-02 07:06 | DIAGNOSTIC IMAGING REPORT ---
SINGLE VIEW CHEST CLINICAL HISTORY: Pleural effusion. FINDINGS: An AP, portable, upright chest radiograph is compared to study dated 07/30/2017. Correlation is made with chest CT dated 08/09/2017. The examination is degraded by portable technique and patient rotation. A right internal jugular central venous infusion port is unchanged in position. The cardiomediastinal silhouette is unremarkable. There are diffuse bilateral airspace opacities. Small pleural effusions are identified. No pneumothorax is seen. The skeletal structures are osteopenic. The bony thorax is grossly intact. Clips are present in the upper abdomen. IMPRESSION: 1. There are bilateral airspace opacities. This could represent pulmonary edema and/or multifocal pneumonia. Clinical correlation will be required. 2. Small pleural effusions. Electronically signed by: Dieter Jensen M.D. 08/02/2017 7:05 AM Dictated Date/Time: 08/02/2017 7:03 AM
[2017-08-02 07:22] LABS: CREATININE 4.42 mg/dl (0.60-1.40); POTASSIUM 5.1 mmol/L (3.5-5.1)
[2017-08-02 07:36] LABS: HEMATOCRIT 24.4 % (42-52); HEMOGLOBIN 8.1 g/dL (14.0-18.0); MEAN CELL VOLUME 89.1 fL (80-100); MEAN CORPUSCULAR HEMOGLOBIN 29.6 pg (25-34); MEAN PLATELET VOLUME 11.9 fL (7.4-10.4); PLATELET COUNT 111 K/uL (130-400); RED CELL DISTRIBUTION WIDTH CV 20.6 % (11.5-14.5); RED CELL DISTRIBUTION WIDTH SD 62.8 fL (36.4-46.3)
[2017-08-02] MEDS: METHADONE HCL 10 MG TAB PO SCH ×2 (08:23→20:36)
[2017-08-02] MEDS: FUROSEMIDE 40 MG TAB PO SCH (08:23)
[2017-08-02] MEDS: AMLODIPINE BESYLATE 5 MG TAB PO SCH (08:24)
[2017-08-02] MEDS: LACTOBACILLUS ACIDOPHILUS (FLORANEX) TAB PO SCH ×3 (08:24→20:38)
[2017-08-02] MEDS: CALCIUM CARBONATE 500 MG CHEWABLE PO SCH ×3 (08:24→20:34)
[2017-08-02] MEDS: CALCITRIOL 0.25 MCG CAP PO SCH (08:24)
[2017-08-02] MEDS: LISINOPRIL 40 MG TAB PO SCH (08:25)
[2017-08-02] MEDS: METOPROLOL TARTRATE 100 MG TAB PO SCH ×2 (08:26→20:34)
[2017-08-02] MEDS: INSULIN ASPART 100 UNITS/ML 3 ML PEN SC SCH ×4 (08:31→20:31)
[2017-08-02] MEDS: CHECK FENTANYL PATCH PLACEMENT SCH ×3 (08:44→16:00)
[2017-08-02] MEDS ORDERED: INSULIN GLARGINE SOLOSTAR 100 UNITS/ML 3 ML PEN SC SCH (09:00)
[2017-08-02] MEDS: BOOST GLUCOSE CONTROL PO SCH ×2 (10:00→20:36)
--- NOTE | 2017-08-02 10:43 | Pharmacy Progress Note ---
Pharmacy Glycemic Short Note 2 Date of Service Aug 02, 2017. ASSESSMENT: * See previous progress notes for more background info, in short: * Pt receiving SQ basal bolus insulin regimen for hyperglycemia secondary to baseline DM (outpatient regimen on hold),stress/infection, recent surgery, steroids * Steroids tapered to Prednisone 20mg PO BIDM * BSGs ranging 72-379 over the past 24 hours * Pt received a total of 52 units of insulin yesterday * Pt has been receiving a set dose of Lantus in the AM then a scale based on BSG at night * Last night he was to receive 14 units but refused and only wanted to get 10 units * I spoke with him this morning regarding his overall management and concerns * He is concerned with low BSGs and feels he is very sensitive to insulin * After speaking with him we came up with a plan we are both agreeable to * Changes needed to insulin regimen: * AM Fasting BSG = 72 mg/dl {POC} This is below goal range and actually much lower than what has been usual for the patient. Lantus given this AM - hold tonight's dose and resume reduced basal insulin orders tomorrow. * Post-prandial BSGs have continued to be a problem; yesterday he was 379 at lunch - today he is hypoglycemic. Too much basal insulin on board with limited PO intake. Loosen Novolog. PLAN FOR INPATIENT GLYCEMIC CONTROL: * Basal insulin * Lantus 6 units SQ AM given * HOLD PM dose * Bolus insulin * NovoLog per scale ACHS or Q6hrs while NPO * Goal Range: Low 120 mg/dL - High 160 mg/dL * Correction Factor: 25 mg/dL/unit * Nutritional / Prandial insulin per carb ratio of 1 unit per 10 grams CHO consumed
[2017-08-02] MEDS: MoRPHine SULFATE 2 MG/ML CARP IV PRN (12:48)
[2017-08-02] MEDS: CASPOFUNGIN INJ 50 MG in SODIUM CHLORIDE 0.9% 250ML 250 ML IV SCH (12:48)
--- NOTE | 2017-08-02 14:42 | Hospitalist Progress Note ---
Hospitalist Progress Note Date of Service Aug 02, 2017. (Ledy Bhakta ., PA-C) Subjective Pt evaluation today including: conversation w/ patient, physical exam, lab review, review of studies, review of inpatient medication list Patient resting in bed. Advanced diet yesterday to mechanical soft. Notes food is dry causing difficulty with swallowing Encouraged upright eating, taking time, thoroughly chewing foods, and sips between bites Saw speech therapy on 07/21- no issues, signed off Encouraged PT/OT today and sitting upright in bedside chair. To get dialysis today. +little UO. Pain is well controlled. +SOB- non-worsening. Patient denies any fever, chills, sweats, lightheadedness, dizziness, vision changes, CP, palpitations, edema, wheezing, cough, abdominal pain, nausea, vomiting, diarrhea, urinary symptoms, melena, numbness/tingling, weakness, muscle/joint pain, anxiety/depression, active bleeding, or new skin discoloration/changes. Discussed case w/ Dieter Brown, pulmonary- will see patient later today and place recommendations (Ledy Bhakta, PA-C) Medications Current Inpatient Medications Medications (Trade) Dose Ordered Sig/Edward Route Start Time Stop Time Status Last Admin Dose Admin Lactobacillus Acidophilus (Floranex Tab) 2 tab TID PO 07/06/17 09:00 08/05/17 08:59 08/02/17 08:24 2 TAB Lisinopril (Zestril Tab) 40 mg DAILY PO 07/06/17 09:00 08/05/17 08:59 08/02/17 08:25 40 MG Miscellaneous Information (Check Fentanyl Patch Placement) 1 ea QS N/A 07/06/17 08:00 08/05/17 07:59 08/02/17 08:44 1 EA Glucose (Glucose 40% Gel) 15-30 GRAMS 15 GRAMS... UD PRN PO 07/06/17 04:15 08/05/17 04:14 Glucose (Glucose Chew Tab) 4-8 Tablets 4 Tabl... UD PRN PO 07/06/17 04:15 08/05/17 04:14 Dextrose (Dextrose 50% 50ML Syringe) 25-50ML OF 50% DW IV FOR... UD PRN IV 07/06/17 04:15 08/05/17 04:14 07/06/17 05:40 25 ML Glucagon (Glucagon Inj) 1 mg UD PRN SQ 07/06/17 04:15 08/05/17 04:14 Heparin Sodium (Porcine) (Heparin 100 Unit/ml 5ml Flush) 5 ml PRN PRN IV 07/07/17 02:45 08/06/17 02:44 Future hold 08/02/17 09:24 5 ML Ondansetron HCl (Zofran Inj) 4 mg Q4H PRN IV 07/11/17 03:00 08/10/17 02:59 07/17/17 21:50 4 MG Prochlorperazine Edisylate 5 mg/ Syringe 5 ml @ 5 mls/min Q4H PRN IV 07/11/17 14:00 08/10/17 13:59 Lactulose (Chronulac Syrup) 30 gm Q4H PRN PO 07/11/17 16:45 08/10/17 16:44 Miscellaneous (Fentanyl Patch Remove & Waste) 1 ea Q3D@0859 N/A 07/22/17 08:59 08/21/17 08:58 07/31/17 08:11 1 EA Fentanyl (Duragesic Patch) 25 mcg Q3D@0900 TD 07/22/17 09:00 08/05/17 08:59 07/31/17 08:10 25 MCG Ergocalciferol (Vitamin D Cap) 50,000 interunit Q7D@0900 PO 07/20/17 09:00 08/19/17 08:59 07/20/17 09:32 50,000 INTERUNIT Hydralazine HCl (HydrALAZINE INJ) 5 mg Q4 PRN IV. 07/21/17 17:15 08/20/17 17:14 Future Hold 07/25/17 23:45 5 MG Hydralazine HCl (HydrALAZINE INJ) 5 mg TID IV. 07/21/17 21:00 08/20/17 20:59 Future Hold 07/30/17 08:33 5 MG Fentanyl Citrate (Fentanyl Inj) Fentanyl 25-50 mcg... Q4H PRN IV 07/21/17 20:45 08/04/17 20:44 07/24/17 05:47 50 MCG Miscellaneous Information (Consult Glycemic Management Pharmacy) 1 ea UD PRN N/A 07/23/17 13:14 08/22/17 13:13 Morphine Sulfate (MoRPHine SULFATE INJ) 2 mg Q3RWA PRN IV 07/24/17 11:30 08/07/17 11:29 08/02/17 12:48 2 MG Caspofungin 50 mg/ Sodium Chloride 260 ml @ 250 mls/hr Q24H IV 07/28/17 12:00 08/06/17 11:59 08/02/17 12:48 250 MLS/HR Insulin Aspart (novoLOG ASPART) SLIDING SCALE G... ACHS SC 07/27/17 11:30 08/26/17 11:29 08/01/17 18:03 5 UNITS Methadone HCl (Dolophine Tab) 20 mg BID PO 07/28/17 21:00 08/08/17 08:59 08/02/17 08:23 20 MG Ipratropium Odonnell (Atrovent 0.02% 0.5MG/2.5ML Neb) 0.5 mg Q6R INH 07/29/17 09:00 08/28/17 08:59 08/02/17 07:12 0.5 MG Levalbuterol (Xopenex 0.63 Mg/ 3 Ml Neb) 0.63 mg Q6R INH 07/29/17 09:00 08/28/17 08:59 08/02/17 07:12 0.63 MG Metoprolol Tartrate (Lopressor Tab) 100 mg BID PO 07/29/17 21:00 08/28/17 20:59 08/02/17 08:26 100 MG Amlodipine Besylate (Norvasc Tab) 10 mg QAM PO 07/30/17 09:00 08/29/17 08:59 08/02/17 08:24 10 MG Ioversol (Optiray 320) 111 ml UD PRN IV 07/30/17 13:30 08/03/17 13:29 Diphenhydramine HCl (Benadryl Inj) 50 mg 4XDQ4H PRN IV 07/30/17 13:30 08/29/17 13:29 Heparin Sodium (Porcine) (Heparin Sq 5000 Unit/0.5ml) 5,000 unit Q8 SQ 07/30/17 22:00 08/29/17 21:59 08/02/17 06:10 5,000 UNIT Prednisone (PredniSONE TAB) 20 mg BIDM PO 07/31/17 07:30 08/30/17 07:29 08/02/17 08:23 20 MG Furosemide (Lasix Tab) 40 mg QAM PO 08/01/17 09:00 08/31/17 08:59 08/02/17 08:23 40 MG Insulin Glargine (Lantus Solostar Pen) see protocol text HS SC 08/01/17 21:00 08/31/17 20:59 Future hold Calcitriol (Rocaltrol Cap) 0.25 mcg Q2D@0900 PO 08/02/17 09:00 09/01/17 08:59 08/02/17 08:24 0.25 MCG Calcium Carbonate (Tums Chew Tab) 500 mg TID PO 08/02/17 09:00 09/01/17 08:59 08/02/17 08:24 500 MG Insulin Glargine (Lantus Solostar Pen) 6 units QAM SC 08/02/17 09:00 09/01/17 08:59 08/02/17 08:38 6 UNITS Enteral Nutritional Formula (Boost Glucose Control) 1 can BID@1000,2100 PO 08/01/17 21:00 08/31/17 20:59 (Ledy Bhakta, BROCKC) Objective Vital Signs Date Time Temp Pulse Resp B/P (MAP) Pulse Ox O2 Delivery O2 Flow Rate FiO2 08/02/17 11:48 36.5 96 18 132/71 (91) 95 08/02/17 07:53 36.8 84 18 122/84 (97) 96 08/02/17 07:17 96 16 92 Mask 15.0 08/02/17 04:00 95 BiPAP 50 08/02/17 03:28 36.8 89 20 125/71 (89) 90 BiPAP 08/02/17 02:06 88 16 93 BiPAP/CPAP 50 08/02/17 00:10 36.8 91 20 111/72 (85) 95 BiPAP 08/02/17 00:00 95 BiPAP 50 08/01/17 22:22 100 92 5.0 08/01/17 20:00 91 Oxymask 08/01/17 19:58 95 16 93 Mask 12.0 08/01/17 19:33 37.0 89 22 127/70 (89) 91 Mask 11.0 08/01/17 16:00 94 Oxymask 10.0 08/01/17 15:21 36.9 99 18 121/67 (85) 90 Mask 10.0 08/01/17 13:48 92 16 93 Mask 10.0 (Ledy Bhakta, PA-C) Physical Exam General Appearance: no apparent distress, + pertinent finding (OxyMask on ) Eyes: normal inspection, PERRL ENT: hearing grossly normal Neck: supple Respiratory/Chest: no respiratory distress, no accessory muscle use, + decreased breath sounds (throughout ) Cardiovascular: regular rate, rhythm Abdomen: normal bowel sounds, non tender, soft, + pertinent finding (incision site bandage C/D/I ) Extremities: no calf tenderness, + swelling (+2 pitting edema of bilateral lower extremities ), + pertinent finding (SCDs on ) Neurologic/Psychiatric: alert, normal mood/affect, oriented x 3 Skin: normal color, warm/dry, no rash (Ledy Bhakta ., PA-C) Laboratory Results Last 24 Hours Test 08/01/17 16:03 08/01/17 20:26 08/02/17 05:20 08/02/17 06:24 Bedside Glucose 156 mg/dl 126 mg/dl 72 mg/dl White Blood Count 12.20 K/uL Red Blood Count 2.74 M/uL Hemoglobin 8.1 g/dL Hematocrit 24.4 % Mean Corpuscular Volume 89.1 fL Mean Corpuscular Hemoglobin 29.6 pg Mean Corpuscular Hemoglobin Concent 33.2 g/dl RDW Standard Deviation 62.8 fL RDW Coefficient of Variation 20.6 % Platelet Count 111 K/uL Mean Platelet Volume 11.9 fL Nucleated RBC Absolute Count (auto) 0.37 K/uL Nucleated Red Blood Cells % 3.0 % Platelet Estimate NORMAL Sodium Level 135 mmol/L Potassium Level 5.1 mmol/L Chloride Level 98 mmol/L Carbon Dioxide Level 26 mmol/L Anion Gap 11.0 mmol/L Blood Urea Nitrogen 104 mg/dl Creatinine 4.42 mg/dl Est Creatinine Clear Calc Drug Dose 17.7 ml/min Estimated GFR () 15.3 Estimated GFR (Non- 13.2 BUN/Creatinine Ratio 23.5 Random Glucose 77 mg/dl Calcium Level 7.0 mg/dl Magnesium Level 2.1 mg/dl (Ledy Bhakta, PADorcasC) Assessment and Plan Mr. Christy is a 61 y/o M with PMH of ESRD on HD, RCC, DMII. Admitted for L hand cellulitis having failed outpatient management. Abdominal pain, found to have incidental rectus sheath hematoma, C.diff positive colitis and subsequent bowel perforation on 07/21, now s/p colectomy, anemia, and bilateral pneumonia on imaging. C. diff colitis, perforated jejunal bowel (suspected to result from chemo regimen) s/p colectomy, rectus sheath hematoma: - Monitoring on tele- no acute events - Surgical management as per surgery- POD #11: -- TPN completed on 07/29/17 - Currently on mechanical soft diet - Underlying severe protein malnutrition, albumin 1.3- boost BID added - C.Diff + 07/12/17: Completed 9 days of PO Vancomycin - C. glabratum growth- ID recommending Caspofungin x10 days- last day of treatment on 08/06/17 - Pain controlled w/ Methadone and Morphine IV PRN Metastatic RCC s/p L nephrectomy, chronic pain: - Oncology following- holding treatment at this time due to acute issues- f/u outpatient - Palliative care following- appreciate recommendations for pain control- Methadone, Fentanyl, and Morphine PRN ESRD HD, secondary to RCC/ s/p left nephrectomy- HD on MWF: - Nephrology following - 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 on 07/23 - Vascular surgery consulted- s/p AVR repair on 07/25/17 - Hypocalcemia w/ vitamin D level of 9.4: Ergocalciferol 50,000 q7d indefinitely + daily D3 2000 when patient resumes oral intake- recheck levels in 12 weeks ESRD bone mineral disease: Resume Calcitriol and CaCO3 Left hand cellulitis- RESOLVED: - Initial MRI did not determine any osteomyelitis - ID consulted: treated initially with Ertapenem/Daptomycin, then transitioned to Cefepime- treated 07/22- 07/30 SOB, hypoxia, ?secondary to pulmonary edema vs cryptogenic organizing pneumonia/ drug related pneumonitis: - Continue O2 supplementation to maintain SaO2 >92%, wean as tolerated - Started on heparin drip on 07/26 for presumed PE- CTA 07/30/17 negative for PE, thus heparin drip stopped - Large R pleural effusion s/p thoracentesis completed 07/30/17- pleural pathology w/ no malignancy, pleural cultures growing yeast- on IV Caspofungin - IV Solu-Medrol- transitioned to Prednisone 20 mg BID on 07/31 - DuoNebs QID and PRN - Pulmonary following DMII: - BSG ACHS and ISS - Pharmacy consulted for glycemic management- on Lantus sliding scale Acute anemia- transfused a total of 6 u PRBCs: - Nephrology following- Epogen with dialysis - H&H- STABLE HTN, HLD: - Furosemide 40 mg PO daily - Amlodipine 10 mg daily, Metoprolol 100 mg PO BID, Lisinopril 40 mg daily - Hydralazine 100 mg TID held- BPs well controlled at this time - Monitor I&Os and daily weights - Simvastatin 20 mg HS held due to NPO status- will resume once tolerating regular diet BPH: Tamsulosin 0.4 mg PO daily held due to NPO status- will resume once tolerating regular diet DVT Prophylaxis: Heparin SQ TID Code Status: LEVEL I, FULL Dispo: Discharge uncertain- planning for [facility] at discharge- PT/OT and CM consulted (Ledy Bhakta, SARITA) Reviewed: Pt Seen/Exam by Me (Rosenda Luis MD) History Physician Stoner Out Supervision Note: I interviewed and examined the patient. Discussed with CHRISTEN Bhakta and agree with findings and plan as documented in the note. Any exceptions or clarifications are listed here: Undergoing HD in his room when I saw him. Having increased pain in his abdomen and "all over." Says he didn't take much pain medicine today. Still requiring high levels of O2 Vitals reviewed NAD, lying in bed, appears in mild distress, has a slight tremor in his left hand RRR no mgr lungs with decreased BS throughout anterior and axillary regions but could not sit up due to being on HD Abd +BS,+ soft, +TTP over left side of incision without guarding or rebound, ND , now with dressing in place over wound Ext 2+ + pitting edema in lower extremities, with significantly improved and only 1+ pitting edema in the LUE>RUE, left hand with a few small areas of blisters and scabs, no significant erythema, no bony tenderness over hand Pt is a 61 yo male with a very complicated hospital course, here with left hand cellulitis, C. diff colitis, jejunal diverticulitis with perforation requiring emergency laparotomy, ESRD on HD, AV fistula stenosis, nephrotic syndrome, severe hypoalbuminemia and anasarca, HTN, metastatic RCC, DMII, anemia of CKD, and cryptogenic organizing PNA vs drug-induced pneumonitis, worsening pleural effusions. -pleural fluid exudative but no malignant cells on cytology, no growth on cx to date, appreciate Pulmonology consultation for further management - with continued high oxygen requirement --> appears to have pulm edema on CXR, effusions small--> appreciate any further Pulm input -continue steroid long taper -completed abx course for hand cellulitis, follow clinically and appears to be stable, appreciate ID consult -recovering from bowel resection, tolerating regular diet, appreciate Surgery management-will need mario removed within the next week--> need to discuss with Surgery about timing of this -ESRD on HD, nephrotic syndrome--> continue HD, appreciate Nephrology management -metastatic RCC with multiple adverse SEs from chemo regimens, appreciate Oncology consultation, f/u in office--> discussed with Dr. Dao to see what he thought of elevated/rising LDH? May be related to recent bowel surgery, however was rising prior to that-unclear at this point -Continue to mobilize out of bed and work towards weaning down O2 to get to rehab Documented By: Rosenda Luis (Rosenda Luis MD)
[2017-08-02] MEDS: DEXTROSE 50% 50 ML SYR IV PRN (14:44)
--- NOTE | 2017-08-02 14:50 | Nephrology Progress Note ---
Nephrology Progress Note Date of Service Aug 02, 2017. Chief Complaint Follow-up for end-stage renal disease on hemodialysis. Roland Causey Was seen and examined in his room this morning. He feels better, has been tolerating soft diet. Continues to make urine. BP, electrolyte acceptable. Review of Systems A complete review of systems was performed. Pertinent positives are noted above. All other systems are negative. Vital Signs Last 8 Hrs Date Time Temp Pulse Resp B/P (MAP) Pulse Ox O2 Delivery O2 Flow Rate FiO2 08/02/17 07:53 36.8 84 18 122/84 (97) 96 08/02/17 07:17 96 16 92 Mask 15.0 08/02/17 04:00 95 BiPAP 50 08/02/17 03:28 36.8 89 20 125/71 (89) 90 BiPAP 08/02/17 02:06 88 16 93 BiPAP/CPAP 50 Last Recorded Weight Weight (Kilograms): 84.900 Physical Exam GENERAL: Middle-aged male, AAA x 3, pleasant, ill-appearing, not in any distress. NECK: Supple, no JVD. RESPIRATORY: Normal breathing efforts, no accessory muscle use, clear to auscultation bilaterally, no wheezes or rales. CARDIOVASCULAR: S1, S2 normal, rate rhythm regular. EXTREMITY: Bilateral upper extremity edema, more on left upper extremity, left brachiocephalic AV fistula with thrill and bruit. NEURO: speech fluent. PSYCHIATRY: Normal mood and judgment Family History Cervical cancer Diabetes mellitus Heart disease Hypertension Myocardial infarction Pancreatic cancer Prostate cancer Negative for CKD/ESRD Social History Smokeless Tobacco Use: No Alcohol Use: none Drug Use: none Marital Status: single Housing Status: lives alone Occupation: disabled Single, retired. Formerly worked for [employer]. Never a smoker. Laboratory Results Past 24 Hours 08/02/17 05:20 08/02/17 05:20 Test 08/01/17 11:26 08/01/17 16:03 08/01/17 20:26 08/02/17 05:20 Bedside Glucose 379 mg/dl (70-99) 156 mg/dl (70-99) 126 mg/dl (70-99) Red Blood Count 2.74 M/uL (4.7-6.1) Mean Corpuscular Volume 89.1 fL (80-100) Mean Corpuscular Hemoglobin 29.6 pg (25-34) Mean Corpuscular Hemoglobin Concent 33.2 g/dl (32-36) RDW Standard Deviation 62.8 fL (36.4-46.3) RDW Coefficient of Variation 20.6 % (11.5-14.5) Mean Platelet Volume 11.9 fL (7.4-10.4) Nucleated RBC Absolute Count (auto) 0.37 K/uL (0-0) Nucleated Red Blood Cells % 3.0 % Platelet Estimate NORMAL Anion Gap 11.0 mmol/L (3-11) Est Creatinine Clear Calc Drug Dose 17.7 ml/min Estimated GFR () 15.3 Estimated GFR (Non- 13.2 BUN/Creatinine Ratio 23.5 (10-20) Calcium Level 7.0 mg/dl (8.5-10.1) Magnesium Level 2.1 mg/dl (1.8-2.4) Test 08/02/17 06:24 Bedside Glucose 72 mg/dl (70-99) Allergies Coded Allergies: Iodinated Diagnostic Agents (Verified Allergy, Unknown, oil based, severe headaches, 06/20/17) EVENT OCCURED IN 1971, PT STATES HE HAS HAD 3 DIFFERENT WATER BASED IVP DYES WITH NO ISSUE Medications Current Inpatient Medications Medications (Trade) Dose Ordered Sig/Edward Route Start Time Stop Time Status Last Admin Dose Admin Lactobacillus Acidophilus (Floranex Tab) 2 tab TID PO 07/06/17 09:00 08/05/17 08:59 08/02/17 08:24 2 TAB Lisinopril (Zestril Tab) 40 mg DAILY PO 07/06/17 09:00 08/05/17 08:59 08/02/17 08:25 40 MG Miscellaneous Information (Check Fentanyl Patch Placement) 1 ea QS N/A 07/06/17 08:00 08/05/17 07:59 08/02/17 08:44 1 EA Glucose (Glucose 40% Gel) 15-30 GRAMS 15 GRAMS... UD PRN PO 07/06/17 04:15 08/05/17 04:14 Glucose (Glucose Chew Tab) 4-8 Tablets 4 Tabl... UD PRN PO 07/06/17 04:15 08/05/17 04:14 Dextrose (Dextrose 50% 50ML Syringe) 25-50ML OF 50% DW IV FOR... UD PRN IV 07/06/17 04:15 08/05/17 04:14 07/06/17 05:40 25 ML Glucagon (Glucagon Inj) 1 mg UD PRN SQ 07/06/17 04:15 08/05/17 04:14 Heparin Sodium (Porcine) (Heparin 100 Unit/ml 5ml Flush) 5 ml PRN PRN IV 07/07/17 02:45 08/06/17 02:44 Future hold 08/02/17 09:24 5 ML Ondansetron HCl (Zofran Inj) 4 mg Q4H PRN IV 07/11/17 03:00 08/10/17 02:59 07/17/17 21:50 4 MG Prochlorperazine Edisylate 5 mg/ Syringe 5 ml @ 5 mls/min Q4H PRN IV 07/11/17 14:00 08/10/17 13:59 Lactulose (Chronulac Syrup) 30 gm Q4H PRN PO 07/11/17 16:45 08/10/17 16:44 Miscellaneous (Fentanyl Patch Remove & Waste) 1 ea Q3D@0859 N/A 07/22/17 08:59 08/21/17 08:58 07/31/17 08:11 1 EA Fentanyl (Duragesic Patch) 25 mcg Q3D@0900 TD 07/22/17 09:00 08/05/17 08:59 07/31/17 08:10 25 MCG Ergocalciferol (Vitamin D Cap) 50,000 interunit Q7D@0900 PO 07/20/17 09:00 08/19/17 08:59 07/20/17 09:32 50,000 INTERUNIT Hydralazine HCl (HydrALAZINE INJ) 5 mg Q4 PRN IV. 07/21/17 17:15 08/20/17 17:14 Future Hold 07/25/17 23:45 5 MG Hydralazine HCl (HydrALAZINE INJ) 5 mg TID IV. 07/21/17 21:00 08/20/17 20:59 Future Hold 07/30/17 08:33 5 MG Fentanyl Citrate (Fentanyl Inj) Fentanyl 25-50 mcg... Q4H PRN IV 07/21/17 20:45 08/04/17 20:44 07/24/17 05:47 50 MCG Miscellaneous Information (Consult Glycemic Management Pharmacy) 1 ea UD PRN N/A 07/23/17 13:14 08/22/17 13:13 Morphine Sulfate (MoRPHine SULFATE INJ) 2 mg Q3RWA PRN IV 07/24/17 11:30 08/07/17 11:29 08/01/17 12:37 2 MG Caspofungin 50 mg/ Sodium Chloride 260 ml @ 250 mls/hr Q24H IV 07/28/17 12:00 08/06/17 11:59 08/01/17 12:21 250 MLS/HR Insulin Aspart (novoLOG ASPART) SLIDING SCALE G... ACHS SC 07/27/17 11:30 08/26/17 11:29 08/01/17 18:03 5 UNITS Methadone HCl (Dolophine Tab) 20 mg BID PO 07/28/17 21:00 08/08/17 08:59 08/02/17 08:23 20 MG Ipratropium Bloomingrose (Atrovent 0.02% 0.5MG/2.5ML Neb) 0.5 mg Q6R INH 07/29/17 09:00 08/28/17 08:59 08/02/17 07:12 0.5 MG Levalbuterol (Xopenex 0.63 Mg/ 3 Ml Neb) 0.63 mg Q6R INH 07/29/17 09:00 08/28/17 08:59 08/02/17 07:12 0.63 MG Metoprolol Tartrate (Lopressor Tab) 100 mg BID PO 07/29/17 21:00 08/28/17 20:59 08/02/17 08:26 100 MG Amlodipine Besylate (Norvasc Tab) 10 mg QAM PO 07/30/17 09:00 08/29/17 08:59 08/02/17 08:24 10 MG Ioversol (Optiray 320) 111 ml UD PRN IV 07/30/17 13:30 08/03/17 13:29 Diphenhydramine HCl (Benadryl Inj) 50 mg 4XDQ4H PRN IV 07/30/17 13:30 08/29/17 13:29 Heparin Sodium (Porcine) (Heparin Sq 5000 Unit/0.5ml) 5,000 unit Q8 SQ 07/30/17 22:00 08/29/17 21:59 08/02/17 06:10 5,000 UNIT Prednisone (PredniSONE TAB) 20 mg BIDM PO 07/31/17 07:30 08/30/17 07:29 08/02/17 08:23 20 MG Furosemide (Lasix Tab) 40 mg QAM PO 08/01/17 09:00 08/31/17 08:59 08/02/17 08:23 40 MG Insulin Glargine (Lantus Solostar Pen) see protocol text HS SC 08/01/17 21:00 08/31/17 20:59 Future hold Calcitriol (Rocaltrol Cap) 0.25 mcg Q2D@0900 PO 08/02/17 09:00 09/01/17 08:59 08/02/17 08:24 0.25 MCG Calcium Carbonate (Tums Chew Tab) 500 mg TID PO 08/02/17 09:00 09/01/17 08:59 08/02/17 08:24 500 MG Insulin Glargine (Lantus Solostar Pen) 6 units QAM SC 08/02/17 09:00 09/01/17 08:59 08/02/17 08:38 6 UNITS Enteral Nutritional Formula (Boost Glucose Control) 1 can BID@1000,2100 PO 08/01/17 21:00 08/31/17 20:59 Impression (1) Cellulitis of left hand (2) ESRD (end stage renal disease) on dialysis (3) Renal cell carcinoma (4) Anemia (5) Diabetes type 2, controlled Mr. Christy has ESRD and metastatic RCC. He underwent left nephrectomy in 2015. Patient did not tolerate Sutent due to high grade proteinuria; Opdivo caused arthralgia, colitis and possible pneumonitis. He was most recently treated w/ Cabometyx. This was complicated by abdominal wall hematoma a intestinal perforation. He remains on steroids for interstitial lung disease versus [facility]. Mr. Christy was admitted with persistent soft tissue infection of the left hand. Patient tested positive for C. Difficile colitis. He has had a prolonged and complicated hospital course. On 07/21 Mr. Christy was diagnosed with intestinal perforation and required emergency laparotomy. 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 Partial colectomy w/ reanastomosis was completed Mr. Christy's dialysis was complicated by prolonged bleeding from the AVF following treatment. 07/23 duplex study demonstrated high grade venous outflow stenosis. Fistulogram with coil embolization completed 07/25/16. Mr. Christy developed acute hypoxic respiratory failure and respiratory distress requiring NIPPV. Heparin gtt started for suspected PE. Recommendations -- BP, electrolyte and volume status are currently appropriate. --plan for HD this morning -- Protect LUE AVF -- Epogen with dialysis -- Treatment for renal cell carcinoma on hold due to acute comorbid conditions -- Calcitriol and CaCO3 on hold due to recent abdominal surgery, will resume once patient on regular oral diet
[2017-08-02] MEDS ORDERED: EPOETIN ALFA 4000 UNITS/ML VIAL IV SCH (15:00)
--- NOTE | 2017-08-02 19:12 | Infectious Disease Progress Nt ---
Progress Note Date of Service Aug 02, 2017. Subjective Pt evaluation today including: conversation w/ patient, physical exam, chart review, lab review, review of studies, conversation w/ sales enablement consultant, review of inpatient medication list Patient undergoing dialysis, remains somewhat lethargic, but denies increasing abdominal pain or shortness of breath. Remains afebrile. Pleural fluid cultures growing yeast. All Other Systems: Reviewed and Negative Medications Current Inpatient Medications Medications (Trade) Dose Ordered Sig/Edward Route Start Time Stop Time Status Last Admin Dose Admin Lactobacillus Acidophilus (Floranex Tab) 2 tab TID PO 07/06/17 09:00 08/05/17 08:59 08/02/17 14:11 2 TAB Lisinopril (Zestril Tab) 40 mg DAILY PO 07/06/17 09:00 08/05/17 08:59 08/02/17 08:25 40 MG Miscellaneous Information (Check Fentanyl Patch Placement) 1 ea QS N/A 07/06/17 08:00 08/05/17 07:59 08/02/17 16:00 1 EA Glucose (Glucose 40% Gel) 15-30 GRAMS 15 GRAMS... UD PRN PO 07/06/17 04:15 08/05/17 04:14 Glucose (Glucose Chew Tab) 4-8 Tablets 4 Tabl... UD PRN PO 07/06/17 04:15 08/05/17 04:14 Dextrose (Dextrose 50% 50ML Syringe) 25-50ML OF 50% DW IV FOR... UD PRN IV 07/06/17 04:15 08/05/17 04:14 08/02/17 14:44 50 ML Glucagon (Glucagon Inj) 1 mg UD PRN SQ 07/06/17 04:15 08/05/17 04:14 Heparin Sodium (Porcine) (Heparin 100 Unit/ml 5ml Flush) 5 ml PRN PRN IV 07/07/17 02:45 08/06/17 02:44 Future hold 08/02/17 09:24 5 ML Ondansetron HCl (Zofran Inj) 4 mg Q4H PRN IV 07/11/17 03:00 08/10/17 02:59 07/17/17 21:50 4 MG Prochlorperazine Edisylate 5 mg/ Syringe 5 ml @ 5 mls/min Q4H PRN IV 07/11/17 14:00 08/10/17 13:59 Lactulose (Chronulac Syrup) 30 gm Q4H PRN PO 07/11/17 16:45 08/10/17 16:44 Miscellaneous (Fentanyl Patch Remove & Waste) 1 ea Q3D@0859 N/A 07/22/17 08:59 08/21/17 08:58 07/31/17 08:11 1 EA Fentanyl (Duragesic Patch) 25 mcg Q3D@0900 TD 07/22/17 09:00 08/05/17 08:59 07/31/17 08:10 25 MCG Ergocalciferol (Vitamin D Cap) 50,000 interunit Q7D@0900 PO 07/20/17 09:00 08/19/17 08:59 07/20/17 09:32 50,000 INTERUNIT Hydralazine HCl (HydrALAZINE INJ) 5 mg Q4 PRN IV. 07/21/17 17:15 08/20/17 17:14 Future Hold 07/25/17 23:45 5 MG Hydralazine HCl (HydrALAZINE INJ) 5 mg TID IV. 07/21/17 21:00 08/20/17 20:59 Future Hold 07/30/17 08:33 5 MG Fentanyl Citrate (Fentanyl Inj) Fentanyl 25-50 mcg... Q4H PRN IV 07/21/17 20:45 08/04/17 20:44 07/24/17 05:47 50 MCG Miscellaneous Information (Consult Glycemic Management Pharmacy) 1 ea UD PRN N/A 07/23/17 13:14 08/22/17 13:13 Morphine Sulfate (MoRPHine SULFATE INJ) 2 mg Q3RWA PRN IV 07/24/17 11:30 08/07/17 11:29 08/02/17 12:48 2 MG Caspofungin 50 mg/ Sodium Chloride 260 ml @ 250 mls/hr Q24H IV 07/28/17 12:00 08/06/17 11:59 08/02/17 12:48 250 MLS/HR Insulin Aspart (novoLOG ASPART) SLIDING SCALE G... ACHS SC 07/27/17 11:30 08/26/17 11:29 08/01/17 18:03 5 UNITS Methadone HCl (Dolophine Tab) 20 mg BID PO 07/28/17 21:00 08/08/17 08:59 08/02/17 08:23 20 MG Ipratropium [place] (Atrovent 0.02% 0.5MG/2.5ML Neb) 0.5 mg Q6R INH 07/29/17 09:00 08/28/17 08:59 08/02/17 14:35 0.5 MG Levalbuterol (Xopenex 0.63 Mg/ 3 Ml Neb) 0.63 mg Q6R INH 07/29/17 09:00 08/28/17 08:59 08/02/17 14:35 0.63 MG Metoprolol Tartrate (Lopressor Tab) 100 mg BID PO 07/29/17 21:00 08/28/17 20:59 08/02/17 08:26 100 MG Amlodipine Besylate (Norvasc Tab) 10 mg QAM PO 07/30/17 09:00 08/29/17 08:59 08/02/17 08:24 10 MG Ioversol (Optiray 320) 111 ml UD PRN IV 07/30/17 13:30 08/03/17 13:29 Diphenhydramine HCl (Benadryl Inj) 50 mg 4XDQ4H PRN IV 07/30/17 13:30 08/29/17 13:29 Heparin Sodium (Porcine) (Heparin Sq 5000 Unit/0.5ml) 5,000 unit Q8 SQ 07/30/17 22:00 08/29/17 21:59 08/02/17 06:10 5,000 UNIT Prednisone (PredniSONE TAB) 20 mg BIDM PO 07/31/17 07:30 08/30/17 07:29 08/02/17 17:58 20 MG Furosemide (Lasix Tab) 40 mg QAM PO 08/01/17 09:00 08/31/17 08:59 08/02/17 08:23 40 MG Insulin Glargine (Lantus Solostar Pen) see protocol text HS SC 08/01/17 21:00 08/31/17 20:59 Future Hold Calcitriol (Rocaltrol Cap) 0.25 mcg Q2D@0900 PO 08/02/17 09:00 09/01/17 08:59 08/02/17 08:24 0.25 MCG Calcium Carbonate (Tums Chew Tab) 500 mg TID PO 08/02/17 09:00 09/01/17 08:59 08/02/17 14:11 500 MG Insulin Glargine (Lantus Solostar Pen) 6 units QAM SC 08/02/17 09:00 09/01/17 08:59 08/02/17 08:38 6 UNITS Enteral Nutritional Formula (Boost Glucose Control) 1 can BID@1000,2100 PO 08/01/17 21:00 08/31/17 20:59 Epoetin Mohsen (Procrit Inj) 4,000 units ONE IV 08/02/17 15:00 08/02/17 23:59 Objective Vital Signs Date Time Temp Pulse Resp B/P (MAP) Pulse Ox O2 Delivery O2 Flow Rate FiO2 08/02/17 17:15 110 123/66 08/02/17 17:00 108 125/56 08/02/17 16:45 104 117/65 08/02/17 16:30 104 129/67 08/02/17 16:15 106 122/68 08/02/17 16:00 Oxymask 13.0 08/02/17 16:00 109 139/66 08/02/17 15:45 102 151/68 08/02/17 15:30 107 135/66 08/02/17 15:15 100 147/69 08/02/17 15:00 104 159/66 08/02/17 14:45 103 198/72 08/02/17 14:45 36.5 95 184/80 (114) 08/02/17 14:37 108 18 91 Mask 15.0 08/02/17 12:00 Oxymask 13.0 08/02/17 11:48 36.5 96 18 132/71 (91) 95 08/02/17 08:30 Oxymask 13.0 08/02/17 07:53 36.8 84 18 122/84 (97) 96 08/02/17 07:17 96 16 92 Mask 15.0 08/02/17 04:00 95 BiPAP 50 08/02/17 03:28 36.8 89 20 125/71 (89) 90 BiPAP 08/02/17 02:06 88 16 93 BiPAP/CPAP 50 08/02/17 00:10 36.8 91 20 111/72 (85) 95 BiPAP 08/02/17 00:00 95 BiPAP 50 08/01/17 22:22 100 92 5.0 08/01/17 20:00 91 Oxymask 08/01/17 19:58 95 16 93 Mask 12.0 08/01/17 19:33 37.0 89 22 127/70 (89) 91 Mask 11.0 Physical Exam General Appearance: no apparent distress, + pertinent finding (Chronically ill- appearing) Eyes: normal inspection, EOMI, sclerae normal ENT: normal ENT inspection, pharynx normal Neck: supple, no adenopathy, trachea midline Respiratory/Chest: chest non-tender, lungs clear, normal breath sounds, no respiratory distress Cardiovascular: regular rate, rhythm, no gallop, no murmur Abdomen: normal bowel sounds, non tender, soft, no organomegaly Extremities: non-tender, no calf tenderness Neurologic/Psychiatric: alert, oriented x 3 Skin: normal color, no rash Lymphatic: no adenopathy Laboratory Results RUN DATE: 08/02/17 [facility] LAB PAGE 1 RUN TIME: 1131 Specimen Inquiry PATIENT: CHANO ANDERSON LOC: Anna U # : [id number] AGE/SX: 61/M ROOM: 21 REG : 07/05/[address]: Rosenda Luis MD : [id number] BED: 1 DIS : STATUS: ADM IN TLOC: SPEC #: [id number] HENRRY: 07/30/17UN STATUS: RES REQ #: [id number] RECD: 07/30/[address] [facility] [address]: Muriel Clark M.D. SOURCE: PLEURAL FL ENTR: 07/30/17 [facility] DR: Rober Stern D.O. SPDESC: Hunter Anthony D.O. Bell, Evan T MD Duncan, Angela Fitch, Sasha Lau M.D. Lieb, James V. D.O. Long, Ronald M.D. Noor, Rahiba ., M.D. Oppermann, Brian P., M.D. Roe, Kevin, D.O. Sefter, John C., Rashuan Mckeon M.D. Schneekloth, Lauren ., M.D. Stevens, Jessica A., DO Tarmohamed, Zenovia ., M.D. ORDERED: AER/TD CULTSMR COMMENTS: Specimen Comment Tube #2 Has Specimen Been Obtained/Collected? Y Procedure Result Verified Site GRAM STAIN Final 07/30/17-191 RESULT NO ORGANISMS SEEN FEW POLYS Phoned results to ALEX RODRÍGUEZ on 07/30/17 at 1909 by Nisha Gonzalez. Results were verbalized back to FARTUN. OR AER/TD CULT Preliminary 08/02/17-1131 Organism 1 YEAST NOT CECILIA ALBICANS QUANITY FEW SENS NO SENSITIVITY TO FOLLOW ANAS NO ANAEROBES ISOLATED. END OF REPORT Last 24 Hours Test 08/01/17 20:26 08/02/17 05:20 08/02/17 06:24 08/02/17 11:26 Bedside Glucose 126 mg/dl 72 mg/dl 71 mg/dl White Blood Count 12.20 K/uL Red Blood Count 2.74 M/uL Hemoglobin 8.1 g/dL Hematocrit 24.4 % Mean Corpuscular Volume 89.1 fL Mean Corpuscular Hemoglobin 29.6 pg Mean Corpuscular Hemoglobin Concent 33.2 g/dl RDW Standard Deviation 62.8 fL RDW Coefficient of Variation 20.6 % Platelet Count 111 K/uL Mean Platelet Volume 11.9 fL Nucleated RBC Absolute Count (auto) 0.37 K/uL Nucleated Red Blood Cells % 3.0 % Platelet Estimate NORMAL Sodium Level 135 mmol/L Potassium Level 5.1 mmol/L Chloride Level 98 mmol/L Carbon Dioxide Level 26 mmol/L Anion Gap 11.0 mmol/L Blood Urea Nitrogen 104 mg/dl Creatinine 4.42 mg/dl Est Creatinine Clear Calc Drug Dose 17.7 ml/min Estimated GFR () 15.3 Estimated GFR (Non- 13.2 BUN/Creatinine Ratio 23.5 Random Glucose 77 mg/dl Calcium Level 7.0 mg/dl Magnesium Level 2.1 mg/dl Test 08/02/17 11:27 08/02/17 14:32 08/02/17 15:03 08/02/17 16:30 Bedside Glucose 56 mg/dl 39 mg/dl 132 mg/dl 84 mg/dl [~ rep ct add3]] SINGLE VIEW CHEST CLINICAL HISTORY: Pleural effusion. FINDINGS: An AP, portable, upright chest radiograph is compared to study dated 07/30/2017. Correlation is made with chest CT dated 08/09/2017. The examination is degraded by portable technique and patient rotation. A right internal jugular central venous infusion port is unchanged in position. The cardiomediastinal silhouette is unremarkable. There are diffuse bilateral airspace opacities. Small pleural effusions are identified. No pneumothorax is seen. The skeletal structures are osteopenic. The bony thorax is grossly intact. Clips are present in the upper abdomen. IMPRESSION: 1. There are bilateral airspace opacities. This could represent pulmonary edema and/or multifocal pneumonia. Clinical correlation will be required. 2. Small pleural effusions. Assessment and Plan 61-year-old male with metastatic renal cell carcinoma with left hand cellulitis , Possible reflex sympathetic dystrophy, subsequent development of pneumonitis, C difficile infection, and then 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 OR cultures have grown Cecilia glabrata, and have added caspofungin as this species often fluconazole resistant. Pleural fluid cultures with yeast, likely Cecilia Torulopsis related to perforation with peritonitis. Patient to be continued on caspofungin. Will follow
--- NOTE | 2017-08-02 20:49 | Pulmonology Progress Note ---
Pulmonary Progress Note Date of Service Aug 02, 2017. Attending Dr. Vines Subjective Patient continues to have high supplemental O2 requirements. Breath sounds are diminished but he has no significant bronchospasm, rales, rhonchi. He was seen while undergoing dialysis and has trouble staying awake. He reports that dialysis days are very taxing. He does have persistent abdominal pain around the incisional sites. This results in limited deep breaths. He has on Oxymask during the day and has been tolerating BiPAP at night. Chest x-ray shows persistent opacities which may very well be atelectatic versus pneumonia. Otherwise the chest x-rays grossly clear. Patient has no cough or sputum production. He denies any fever. He has not been out of bed. He has no new acute complaints. Objective Vital Signs - as noted below Laboratory Data - as noted below Physical Exam: General - NAD Eyes - No icterus, gaze conjugate ENT - Mucosa moist, no lesions or candidiasis Neck - Supple, No JVD Lungs - No bronchospasm, rales, or rhonchi. Decreased breath sounds at the bases. Otherwise, grossly clear Heart - Regular, rate controlled Abdomen - Soft, NT, ND, BS present Extremities - No edema, pedal pulses intact. AV fistula in the left arm accessed for HD Neuro - A&OX3 Assessment & Plan ACUTE HYPOXIC RESPIRATORY FAILURE Patient as required supplemental oxygen since returning from the operating room for anastomosis from a perforated bowel He is tolerating BiPAP at night He is using supplemental O2 during the day Patient underwent thoracentesis on the right 07/30/17 secondary to large pleural effusion - 1350 mL out of serosanguineous fluid. Chest x-ray today shows no reaccumulation of fluid Patient should be out of bed to bedside chair as tolerated and ambulate as tolerated Patient may with cellulitis of the hand. Cultures from the operating room grew out Cecilia glabrata - caspofungin was added by ID Continue incentive spirometry and flutter valve PLEURAL EFFUSION Status post thoracentesis 07/30/[address] Clark Pathology and microbiology with the [facility] but no malignant cells No redevelopment of effusion on today's chest x-ray POSSIBLE CRYPTOGENIC ORGANIZING PNEUMONIA Steroids were started 07/06/17 and tapered off by 07/30/17 ID treating yeast in pleural fluid with caspofungin QUESTION OF PULMONARY EMBOLI CTA yesterday with no evidence of pulmonary embolus Heparin drip was stopped Lower extremity duplex was negative for DVT Continue DVT prophylaxis with heparin 5000 units subcutaneous every 8 hours DVT PROPHYLAXIS Continue heparin 5000 units subcutaneously every eight hours Need to encourage out of bed to chair Need to encourage physical therapy Thank you for including us in the care of this patient. Please refer to Dr. Vines's addendum for further recommendations. I was present with Dieter Brown PA-C during the history and exam. I discussed the case with him and agree with the findings and plan as documented in the note. Any exceptions or clarifications are listed here: Patient with hypoxic respiratory failure, POD# 12 s/p colon resection, POD#3 s/ p right thoracentesis, h/o renal cell CA, ESRD on HD Remains profoundly hypoxic on 15 liters Oxy-flow mask S/p HD today S/p thoracentesis on 07/30/17, drained 1350 ml of exudative bloody effusion. 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 On Caspofungin Repeat CXR tomorrow OOB to chair DVT prophylaxis with SC heparin Charlie Vines MD Data Medications: Current Inpatient Medications Medications (Trade) Dose Ordered Sig/Edward Route Start Time Stop Time Status Last Admin Dose Admin Lactobacillus Acidophilus (Floranex Tab) 2 tab TID PO 07/06/17 09:00 08/05/17 08:59 08/02/17 14:11 2 TAB Lisinopril (Zestril Tab) 40 mg DAILY PO 07/06/17 09:00 08/05/17 08:59 08/02/17 08:25 40 MG Miscellaneous Information (Check Fentanyl Patch Placement) 1 ea QS N/A 07/06/17 08:00 08/05/17 07:59 08/02/17 16:00 1 EA Glucose (Glucose 40% Gel) 15-30 GRAMS 15 GRAMS... UD PRN PO 07/06/17 04:15 08/05/17 04:14 Glucose (Glucose Chew Tab) 4-8 Tablets 4 Tabl... UD PRN PO 07/06/17 04:15 08/05/17 04:14 Dextrose (Dextrose 50% 50ML Syringe) 25-50ML OF 50% DW IV FOR... UD PRN IV 07/06/17 04:15 08/05/17 04:14 08/02/17 14:44 50 ML Glucagon (Glucagon Inj) 1 mg UD PRN SQ 07/06/17 04:15 08/05/17 04:14 Heparin Sodium (Porcine) (Heparin 100 Unit/ml 5ml Flush) 5 ml PRN PRN IV 07/07/17 02:45 08/06/17 02:44 Future hold 08/02/17 09:24 5 ML Ondansetron HCl (Zofran Inj) 4 mg Q4H PRN IV 07/11/17 03:00 08/10/17 02:59 07/17/17 21:50 4 MG Prochlorperazine Edisylate 5 mg/ Syringe 5 ml @ 5 mls/min Q4H PRN IV 07/11/17 14:00 08/10/17 13:59 Lactulose (Chronulac Syrup) 30 gm Q4H PRN PO 07/11/17 16:45 08/10/17 16:44 Miscellaneous (Fentanyl Patch Remove & Waste) 1 ea Q3D@0859 N/A 07/22/17 08:59 08/21/17 08:58 07/31/17 08:11 1 EA Fentanyl (Duragesic Patch) 25 mcg Q3D@0900 TD 07/22/17 09:00 08/05/17 08:59 07/31/17 08:10 25 MCG Ergocalciferol (Vitamin D Cap) 50,000 interunit Q7D@0900 PO 07/20/17 09:00 08/19/17 08:59 07/20/17 09:32 50,000 INTERUNIT Hydralazine HCl (HydrALAZINE INJ) 5 mg Q4 PRN IV. 07/21/17 17:15 08/20/17 17:14 Future Hold 07/25/17 23:45 5 MG Hydralazine HCl (HydrALAZINE INJ) 5 mg TID IV. 07/21/17 21:00 08/20/17 20:59 Future Hold 07/30/17 08:33 5 MG Fentanyl Citrate (Fentanyl Inj) Fentanyl 25-50 mcg... Q4H PRN IV 07/21/17 20:45 08/04/17 20:44 07/24/17 05:47 50 MCG Miscellaneous Information (Consult Glycemic Management Pharmacy) 1 ea UD PRN N/A 07/23/17 13:14 08/22/17 13:13 Morphine Sulfate (MoRPHine SULFATE INJ) 2 mg Q3RWA PRN IV 07/24/17 11:30 08/07/17 11:29 08/02/17 12:48 2 MG Caspofungin 50 mg/ Sodium Chloride 260 ml @ 250 mls/hr Q24H IV 07/28/17 12:00 08/06/17 11:59 08/02/17 12:48 250 MLS/HR Insulin Aspart (novoLOG ASPART) SLIDING SCALE G... ACHS SC 07/27/17 11:30 08/26/17 11:29 08/01/17 18:03 5 UNITS Methadone HCl (Dolophine Tab) 20 mg BID PO 07/28/17 21:00 08/08/17 08:59 08/02/17 08:23 20 MG Ipratropium [place] (Atrovent 0.02% 0.5MG/2.5ML Neb) 0.5 mg Q6R INH 07/29/17 09:00 08/28/17 08:59 08/02/17 14:35 0.5 MG Levalbuterol (Xopenex 0.63 Mg/ 3 Ml Neb) 0.63 mg Q6R INH 07/29/17 09:00 08/28/17 08:59 08/02/17 14:35 0.63 MG Metoprolol Tartrate (Lopressor Tab) 100 mg BID PO 07/29/17 21:00 08/28/17 20:59 08/02/17 08:26 100 MG Amlodipine Besylate (Norvasc Tab) 10 mg QAM PO 07/30/17 09:00 08/29/17 08:59 08/02/17 08:24 10 MG Ioversol (Optiray 320) 111 ml UD PRN IV 07/30/17 13:30 08/03/17 13:29 Diphenhydramine HCl (Benadryl Inj) 50 mg 4XDQ4H PRN IV 07/30/17 13:30 08/29/17 13:29 Heparin Sodium (Porcine) (Heparin Sq 5000 Unit/0.5ml) 5,000 unit Q8 SQ 07/30/17 22:00 08/29/17 21:59 08/02/17 06:10 5,000 UNIT Prednisone (PredniSONE TAB) 20 mg BIDM PO 07/31/17 07:30 08/30/17 07:29 08/02/17 17:58 20 MG Furosemide (Lasix Tab) 40 mg QAM PO 08/01/17 09:00 08/31/17 08:59 08/02/17 08:23 40 MG Insulin Glargine (Lantus Solostar Pen) see protocol text HS SC 08/01/17 21:00 08/31/17 20:59 Future Hold Calcitriol (Rocaltrol Cap) 0.25 mcg Q2D@0900 PO 08/02/17 09:00 09/01/17 08:59 08/02/17 08:24 0.25 MCG Calcium Carbonate (Tums Chew Tab) 500 mg TID PO 08/02/17 09:00 09/01/17 08:59 08/02/17 14:11 500 MG Insulin Glargine (Lantus Solostar Pen) 6 units QAM SC 08/02/17 09:00 09/01/17 08:59 08/02/17 08:38 6 UNITS Enteral Nutritional Formula (Boost Glucose Control) 1 can BID@1000,2100 PO 08/01/17 21:00 08/31/17 20:59 Epoetin Mohsen (Procrit Inj) 4,000 units ONE IV 08/02/17 15:00 08/02/17 23:59 I & O: 24-Hour Column 08/03/17 08:00 Intake Total 696 ml Output Total 3550 ml Balance -2854 ml Vital Signs: Date Time Temp Pulse Resp B/P (MAP) Pulse Ox O2 Delivery O2 Flow Rate FiO2 08/02/17 20:09 103 20 159/70 (99) 08/02/17 18:45 123 112/60 08/02/17 18:45 36.4 114 152/65 (94) 08/02/17 18:30 124 106/72 08/02/17 18:15 76 123/102 08/02/17 18:00 118 124/69 08/02/17 17:45 116 90/58 08/02/17 17:30 105 138/62 1/10/18 17:15 110 123/66 08/02/17 17:00 108 125/56 08/02/17 16:45 104 117/65 08/02/17 16:30 104 129/67 08/02/17 16:15 106 122/68 08/02/17 16:00 Oxymask 13.0 08/02/17 16:00 109 139/66 08/02/17 15:45 102 151/68 08/02/17 15:30 107 135/66 08/02/17 15:15 100 147/69 08/02/17 15:00 104 159/66 08/02/17 14:45 103 198/72 08/02/17 14:45 36.5 95 184/80 (114) 08/02/17 14:37 108 18 91 Mask 15.0 08/02/17 12:00 Oxymask 13.0 08/02/17 11:48 36.5 96 18 132/71 (91) 95 08/02/17 08:30 Oxymask 13.0 08/02/17 07:53 36.8 84 18 122/84 (97) 96 08/02/17 07:17 96 16 92 Mask 15.0 08/02/17 04:00 95 BiPAP 50 08/02/17 03:28 36.8 89 20 125/71 (89) 90 BiPAP 08/02/17 02:06 88 16 93 BiPAP/CPAP 50 08/02/17 00:10 36.8 91 20 111/72 (85) 95 BiPAP 08/02/17 00:00 95 BiPAP 50 08/01/17 22:22 100 92 5.0 Laboratory Results: Last 24 Hours Test 08/02/17 05:20 08/02/17 06:24 08/02/17 11:26 08/02/17 11:27 White Blood Count 12.20 K/uL Red Blood Count 2.74 M/uL Hemoglobin 8.1 g/dL Hematocrit 24.4 % Mean Corpuscular Volume 89.1 fL Mean Corpuscular Hemoglobin 29.6 pg Mean Corpuscular Hemoglobin Concent 33.2 g/dl RDW Standard Deviation 62.8 fL RDW Coefficient of Variation 20.6 % Platelet Count 111 K/uL Mean Platelet Volume 11.9 fL Nucleated RBC Absolute Count (auto) 0.37 K/uL Nucleated Red Blood Cells % 3.0 % Platelet Estimate NORMAL Sodium Level 135 mmol/L Potassium Level 5.1 mmol/L Chloride Level 98 mmol/L Carbon Dioxide Level 26 mmol/L Anion Gap 11.0 mmol/L Blood Urea Nitrogen 104 mg/dl Creatinine 4.42 mg/dl Est Creatinine Clear Calc Drug Dose 17.7 ml/min Estimated GFR () 15.3 Estimated GFR (Non- 13.2 BUN/Creatinine Ratio 23.5 Random Glucose 77 mg/dl Calcium Level 7.0 mg/dl Magnesium Level 2.1 mg/dl Bedside Glucose 72 mg/dl 71 mg/dl 56 mg/dl Test 08/02/17 14:32 08/02/17 15:03 08/02/17 16:30 Bedside Glucose 39 mg/dl 132 mg/dl 84 mg/dl
[2017-08-02] MEDS ORDERED: PHARMACY GLYCEMIC MGMT CONSULT STA (22:50)
[2017-08-03] VITALS (16 sets, daily range): BP systolic 98–161; BP diastolic 68–90; PULSE 87–106; TEMP 36.5–37.5; O2SAT 90–98; BMI 26.2
[2017-08-03] MEDS: LEVALBUTEROL 0.63MG/3 ML NEB INH SCH ×4 (01:42→19:32)
[2017-08-03] MEDS: IPRATROPIUM BROMIDE NEB SOLN 0.02% 2.5 ML VIAL INH SCH ×4 (01:42→19:31)
[2017-08-03 05:52] LABS: HEMATOCRIT 22.4 % (42-52); HEMOGLOBIN 7.4 g/dL (14.0-18.0); MEAN CELL VOLUME 90.7 fL (80-100); MEAN PLATELET VOLUME 11.7 fL (7.4-10.4); NUCLEATED RED BLOOD CELL ABS 0.32 K/uL (0-0); PLATELET COUNT 111 K/uL (130-400); RED CELL DISTRIBUTION WIDTH CV 20.4 % (11.5-14.5); RED CELL DISTRIBUTION WIDTH SD 65.3 fL (36.4-46.3); WHITE BLOOD COUNT 12.76 K/uL (4.8-10.8)
[2017-08-03] MEDS: HEPARIN SOD 5000 UNIT/0.5 ML CARP SQ SCH ×3 (06:14→21:15)
[2017-08-03 06:24] LABS: CALCIUM 6.8 mg/dl (8.5-10.1); CREATININE 2.79 mg/dl (0.60-1.40); POTASSIUM 4.4 mmol/L (3.5-5.1)
[2017-08-03] MEDS: ERGOCALCIFEROL 50,000 INTER.UNIT CAP PO SCH (08:22)
[2017-08-03] MEDS: CALCIUM CARBONATE 500 MG CHEWABLE PO SCH ×3 (08:22→20:54)
[2017-08-03] MEDS: LISINOPRIL 40 MG TAB PO SCH (08:22)
[2017-08-03] MEDS: FUROSEMIDE 40 MG TAB PO SCH (08:23)
[2017-08-03] MEDS: METHADONE HCL 10 MG TAB PO SCH ×2 (08:23→21:15)
[2017-08-03] MEDS: METOPROLOL TARTRATE 100 MG TAB PO SCH ×2 (08:23→20:54)
[2017-08-03] MEDS: AMLODIPINE BESYLATE 5 MG TAB PO SCH (08:23)
[2017-08-03] MEDS: LACTOBACILLUS ACIDOPHILUS (FLORANEX) TAB PO SCH ×3 (08:24→20:53)
[2017-08-03] MEDS: CHECK FENTANYL PATCH PLACEMENT SCH ×3 (08:31→16:10)
[2017-08-03] MEDS: FENTANYL PATCH REMOVE & WASTE SCH (08:32)
[2017-08-03] MEDS: FENTANYL 25 MCG/HR TDSY TD SCH (08:32)
[2017-08-03] MEDS: BOOST GLUCOSE CONTROL PO SCH ×2 (08:33→19:56)
[2017-08-03] MEDS: INSULIN ASPART 100 UNITS/ML 3 ML PEN SC SCH ×4 (08:36→21:14)
--- NOTE | 2017-08-03 10:31 | Palliative Care Progress Note ---
Palliative Care Progress Note Date of Service Aug 03, 2017. Subjective Pt evaluation today including: conversation w/ patient, physical exam, chart review, lab review Pain: Well controlled per pt report PO Intake: fair Pt reports pain is well controlled. Pt is back on BiPAP - sats 100%. He has not required prn IV morphine since 1 pm yesterday. Surgical site pain improving. Review of Systems Constitutional: + weakness, No fever Eyes: No worsening of vision ENT: No hearing loss Respiratory: + shortness of breath Cardiac: + edema, No chest pain Abdomen: + pain (over surgical site), + constipation Musculoskeletal: No joint pain Neurologic: + weakness Psychiatric: + anxiety Endo: + fatigue Skin: + problem reported ( L hand with redness and swelling, bruising RUE) Objective Vital Signs Date Time Temp Pulse Resp B/P (MAP) Pulse Ox O2 Delivery O2 Flow Rate FiO2 08/03/17 08:40 36.9 88 18 101/90 (94) 95 08/03/17 08:00 BiPAP 80 08/03/17 07:18 91 97 80 08/03/17 07:14 91 18 97 BiPAP/CPAP 80 08/03/17 04:00 BiPAP 80 08/03/17 03:41 37.1 97 18 144/69 (94) 97 08/03/17 01:43 93 18 95 BiPAP/CPAP 80 08/03/17 00:59 37.5 106 16 161/73 (102) 90 Room Air 08/03/17 00:00 BiPAP 80 08/02/17 22:35 108 82 5.0 08/02/17 20:09 103 20 159/70 (99) 08/02/17 20:00 BiPAP 80 08/02/17 18:45 123 112/60 08/02/17 18:45 36.4 114 152/65 (94) 08/02/17 18:30 124 106/72 08/02/17 18:15 76 123/102 08/02/17 18:00 118 124/69 08/02/17 17:45 116 90/58 08/02/17 17:30 105 138/62 08/02/17 17:15 110 123/66 08/02/17 17:00 108 125/56 08/02/17 16:45 104 117/65 08/02/17 16:30 104 129/67 08/02/17 16:15 106 122/68 08/02/17 16:00 Oxymask 13.0 08/02/17 16:00 109 139/66 08/02/17 15:45 102 151/68 08/02/17 15:30 107 135/66 08/02/17 15:15 100 147/69 08/02/17 15:00 104 159/66 08/02/17 14:45 103 198/72 08/02/17 14:45 36.5 95 184/80 (114) 08/02/17 14:37 108 18 91 Mask 15.0 08/02/17 12:00 Oxymask 13.0 08/02/17 11:48 36.5 96 18 132/71 (91) 95 Physical Exam General Appearance: no apparent distress Eyes: EOMI ENT: hearing grossly normal Neck: supple Respiratory/Chest: + decreased breath sounds Cardiovascular: regular rate, rhythm Abdomen: + pertinent finding (tenderness on palpation improved over surgical site, decreased BS) Extremities: + pedal edema Neurologic/Psychiatric: alert, + pertinent finding (good spirits) Skin: warm/dry Laboratory Results Last 24 Hours Test 08/02/17 11:26 08/02/17 11:27 08/02/17 14:32 08/02/17 15:03 Bedside Glucose 71 mg/dl 56 mg/dl 39 mg/dl 132 mg/dl Test 08/02/17 16:30 08/02/17 20:16 08/02/17 20:53 08/02/17 23:55 Bedside Glucose 84 mg/dl 30 mg/dl 170 mg/dl 61 mg/dl Test 08/03/17 00:02 08/03/17 00:31 08/03/17 00:57 08/03/17 03:02 Bedside Glucose 62 mg/dl 67 mg/dl 93 mg/dl 108 mg/dl Test 08/03/17 05:24 08/03/17 06:25 White Blood Count 12.76 K/uL Red Blood Count 2.47 M/uL Hemoglobin 7.4 g/dL Hematocrit 22.4 % Mean Corpuscular Volume 90.7 fL Mean Corpuscular Hemoglobin 30.0 pg Mean Corpuscular Hemoglobin Concent 33.0 g/dl RDW Standard Deviation 65.3 fL RDW Coefficient of Variation 20.4 % Platelet Count 111 K/uL Mean Platelet Volume 11.7 fL Nucleated RBC Absolute Count (auto) 0.32 K/uL Nucleated Red Blood Cells % 2.5 % Sodium Level 135 mmol/L Potassium Level 4.4 mmol/L Chloride Level 98 mmol/L Carbon Dioxide Level 31 mmol/L Anion Gap 6.0 mmol/L Blood Urea Nitrogen 55 mg/dl Creatinine 2.79 mg/dl Est Creatinine Clear Calc Drug Dose 28.0 ml/min Estimated GFR () 26.7 Estimated GFR (Non- 23.1 BUN/Creatinine Ratio 19.8 Random Glucose 138 mg/dl Calcium Level 6.8 mg/dl Bedside Glucose 168 mg/dl Assessment and Plan (1) Pain due to neoplasm Status: Chronic Assessment & Plan: Pain well controlled with Fentanyl patch and methadone - may require more prn morphine when getting OOB, etc (2) Cellulitis of left hand Status: Acute Assessment & Plan: On Caspofungin, ? pain due to Reflex sympathetic dystrophy - will address as outpt (3) ESRD (end stage renal disease) on dialysis Status: Acute Assessment & Plan: Started dialysis end of May 2017 (4) Hypoxemia requiring supplemental oxygen Status: Acute Assessment & Plan: Still with high O2 requirements and BiPAP - hope to get OOB to assist with lung fx (5) High risk medication use Status: Acute Assessment & Plan: Will cont to monitor meds that may effect methadone metabolism and adjust as needed Total time: 25 min with > 50% time spent at bedside discussing treatment with pt Palliative Performance Scale: 30 % Continued [facility] stay due to: inadequate po fluid intake, ambulation difficulties , other (requiring O2 at 8-10 L and BiPAP) Discharge planning: rehab hospital, other (hope to be able to transfer to rehab when medically stable)
--- NOTE | 2017-08-03 11:01 | Pharmacy Progress Note ---
Pharmacy Glycemic Short Note 2 Date of Service Aug 03, 2017. ASSESSMENT: * See previous progress notes for more background info, in short: * Pt receiving SQ basal bolus insulin regimen for hyperglycemia secondary to baseline DM (outpatient regimen on hold),stress/infection, recent surgery, steroids * Steroids tapered to Prednisone 20mg PO BIDM * Over the past 24 hours, pt has had 3 severe episodes of hypoglycemia * I spoke with the patient and he is very fearful of these lows * He is requesting checks in between meals and two times through the night - nursing on board for in between meals and I will add the checks through the night on the SEP * His regimen was likely too basal heavy on 07/31 and 08/01 then he received a much reduced dose 08/02 and its been downhill since * Changes needed to insulin regimen: * Pt with severe sustained hypoglycemia * Loosen Novolog and hold basal insulin until BSGs >180 consistently PLAN FOR INPATIENT GLYCEMIC CONTROL: * Basal insulin * HOLD until BSGs consistently >180 * Bolus insulin * NovoLog per scale ACHS + in between meal checks per patient request and ,04 * Goal Range: Low 120 mg/dL - High 160 mg/dL * Correction Factor: 25 mg/dL/unit * Nutritional / Prandial insulin per carb ratio of 1 unit per 10 grams CHO consumed
--- NOTE | 2017-08-03 11:35 | Nephrology Progress Note ---
Nephrology Progress Note Date of Service Aug 03, 2017. Chief Complaint Follow-up for end-stage renal disease on hemodialysis. Roland Causey was seen and examined in his room this am. Wearing BiPAP as O2 sat was low. Had HD yesterday , 3 L UF, net negative > 2L Review of Systems A complete review of systems was performed. Pertinent positives are noted above. All other systems are negative. Vital Signs Last 8 Hrs Date Time Temp Pulse Resp B/P (MAP) Pulse Ox O2 Delivery O2 Flow Rate FiO2 08/03/17 08:40 36.9 88 18 101/90 (94) 95 08/03/17 08:00 BiPAP 80 08/03/17 07:18 91 97 80 08/03/17 07:14 91 18 97 BiPAP/CPAP 80 08/03/17 04:00 BiPAP 80 08/03/17 03:41 37.1 97 18 144/69 (94) 97 Last Recorded Weight Weight (Kilograms): 82.900 Physical Exam GENERAL: middle aged male, AAA x 3, pleasant, ill-appearing, in mild distress. NECK: Supple, no JVD. RESPIRATORY: crackles bilaterally towards bases CARDIOVASCULAR: S1, S2 normal, rate rhythm regular. EXTREMITY: B/L upper and lower extremity edema NEURO: speech fluent. PSYCHIATRY: Normal mood and judgment Family History Cervical cancer Diabetes mellitus Heart disease Hypertension Myocardial infarction Pancreatic cancer Prostate cancer Negative for CKD/ESRD Social History Smokeless Tobacco Use: No Alcohol Use: none Drug Use: none Marital Status: single Housing Status: lives alone Occupation: disabled Single, retired. Formerly worked for [employer]. Never a smoker. Laboratory Results Past 24 Hours 08/03/17 05:24 08/03/17 05:24 Test 08/02/17 14:32 08/02/17 15:03 08/02/17 16:30 08/02/17 20:16 Bedside Glucose 39 mg/dl (70-99) 132 mg/dl (70-99) 84 mg/dl (70-99) 30 mg/dl (70-99) Test 08/02/17 20:53 08/02/17 23:55 08/03/17 00:02 08/03/17 00:31 Bedside Glucose 170 mg/dl (70-99) 61 mg/dl (70-99) 62 mg/dl (70-99) 67 mg/dl (70-99) Test 08/03/17 00:57 08/03/17 03:02 08/03/17 05:24 08/03/17 06:25 Bedside Glucose 93 mg/dl (70-99) 108 mg/dl (70-99) 168 mg/dl (70-99) Red Blood Count 2.47 M/uL (4.7-6.1) Mean Corpuscular Volume 90.7 fL (80-100) Mean Corpuscular Hemoglobin 30.0 pg (25-34) Mean Corpuscular Hemoglobin Concent 33.0 g/dl (32-36) RDW Standard Deviation 65.3 fL (36.4-46.3) RDW Coefficient of Variation 20.4 % (11.5-14.5) Mean Platelet Volume 11.7 fL (7.4-10.4) Nucleated RBC Absolute Count (auto) 0.32 K/uL (0-0) Nucleated Red Blood Cells % 2.5 % Anion Gap 6.0 mmol/L (3-11) Est Creatinine Clear Calc Drug Dose 28.0 ml/min Estimated GFR () 26.7 Estimated GFR (Non- 23.1 BUN/Creatinine Ratio 19.8 (10-20) Calcium Level 6.8 mg/dl (8.5-10.1) Allergies Coded Allergies: Iodinated Diagnostic Agents (Verified Allergy, Unknown, oil based, severe headaches, 06/20/17) EVENT OCCURED IN 1971, PT STATES HE HAS HAD 3 DIFFERENT WATER BASED IVP DYES WITH NO ISSUE Medications Current Inpatient Medications Medications (Trade) Dose Ordered Sig/Edward Route Start Time Stop Time Status Last Admin Dose Admin Lactobacillus Acidophilus (Floranex Tab) 2 tab TID PO 07/06/17 09:00 08/05/17 08:59 08/03/17 08:24 2 TAB Lisinopril (Zestril Tab) 40 mg DAILY PO 07/06/17 09:00 08/05/17 08:59 08/03/17 08:22 40 MG Miscellaneous Information (Check Fentanyl Patch Placement) 1 ea QS N/A 07/06/17 08:00 08/05/17 07:59 08/03/17 08:31 1 EA Glucose (Glucose 40% Gel) 15-30 GRAMS 15 GRAMS... UD PRN PO 07/06/17 04:15 08/05/17 04:14 Glucose (Glucose Chew Tab) 4-8 Tablets 4 Tabl... UD PRN PO 07/06/17 04:15 08/05/17 04:14 Dextrose (Dextrose 50% 50ML Syringe) 25-50ML OF 50% DW IV FOR... UD PRN IV 07/06/17 04:15 08/05/17 04:14 08/02/17 14:44 50 ML Glucagon (Glucagon Inj) 1 mg UD PRN SQ 07/06/17 04:15 08/05/17 04:14 Heparin Sodium (Porcine) (Heparin 100 Unit/ml 5ml Flush) 5 ml PRN PRN IV 07/07/17 02:45 08/06/17 02:44 Future hold 08/02/17 09:24 5 ML Ondansetron HCl (Zofran Inj) 4 mg Q4H PRN IV 07/11/17 03:00 08/10/17 02:59 07/17/17 21:50 4 MG Prochlorperazine Edisylate 5 mg/ Syringe 5 ml @ 5 mls/min Q4H PRN IV 07/11/17 14:00 08/10/17 13:59 Lactulose (Chronulac Syrup) 30 gm Q4H PRN PO 07/11/17 16:45 08/10/17 16:44 Miscellaneous (Fentanyl Patch Remove & Waste) 1 ea Q3D@0859 N/A 07/22/17 08:59 08/21/17 08:58 08/03/17 08:32 1 EA Fentanyl (Duragesic Patch) 25 mcg Q3D@0900 TD 07/22/17 09:00 08/05/17 08:59 08/03/17 08:32 25 MCG Ergocalciferol (Vitamin D Cap) 50,000 interunit Q7D@0900 PO 07/20/17 09:00 08/19/17 08:59 08/03/17 08:22 50,000 INTERUNIT Hydralazine HCl (HydrALAZINE INJ) 5 mg Q4 PRN IV. 07/21/17 17:15 08/20/17 17:14 Future Hold 07/25/17 23:45 5 MG Hydralazine HCl (HydrALAZINE INJ) 5 mg TID IV. 07/21/17 21:00 08/20/17 20:59 Future Hold 07/30/17 08:33 5 MG Fentanyl Citrate (Fentanyl Inj) Fentanyl 25-50 mcg... Q4H PRN IV 07/21/17 20:45 08/04/17 20:44 07/24/17 05:47 50 MCG Miscellaneous Information (Consult Glycemic Management Pharmacy) 1 ea UD PRN N/A 07/23/17 13:14 08/22/17 13:13 Morphine Sulfate (MoRPHine SULFATE INJ) 2 mg Q3RWA PRN IV 07/24/17 11:30 08/07/17 11:29 08/02/17 12:48 2 MG Caspofungin 50 mg/ Sodium Chloride 260 ml @ 250 mls/hr Q24H IV 07/28/17 12:00 08/06/17 11:59 08/02/17 12:48 250 MLS/HR Insulin Aspart (novoLOG ASPART) SLIDING SCALE G... ACHS SC 07/27/17 11:30 08/26/17 11:29 08/03/17 08:36 3 UNITS Methadone HCl (Dolophine Tab) 20 mg BID PO 07/28/17 21:00 08/08/17 08:59 08/03/17 08:23 20 MG Ipratropium [place] (Atrovent 0.02% 0.5MG/2.5ML Neb) 0.5 mg Q6R INH 07/29/17 09:00 08/28/17 08:59 08/03/17 07:13 0.5 MG Levalbuterol (Xopenex 0.63 Mg/ 3 Ml Neb) 0.63 mg Q6R INH 07/29/17 09:00 08/28/17 08:59 08/03/17 07:13 0.63 MG Metoprolol Tartrate (Lopressor Tab) 100 mg BID PO 07/29/17 21:00 08/28/17 20:59 08/03/17 08:23 100 MG Amlodipine Besylate (Norvasc Tab) 10 mg QAM PO 07/30/17 09:00 08/29/17 08:59 08/03/17 08:23 10 MG Ioversol (Optiray 320) 111 ml UD PRN IV 07/30/17 13:30 08/03/17 13:29 Diphenhydramine HCl (Benadryl Inj) 50 mg 4XDQ4H PRN IV 07/30/17 13:30 08/29/17 13:29 Heparin Sodium (Porcine) (Heparin Sq 5000 Unit/0.5ml) 5,000 unit Q8 SQ 07/30/17 22:00 08/29/17 21:59 08/03/17 06:14 5,000 UNIT Prednisone (PredniSONE TAB) 20 mg BIDM PO 07/31/17 07:30 08/30/17 07:29 08/03/17 08:24 20 MG Furosemide (Lasix Tab) 40 mg QAM PO 08/01/17 09:00 08/31/17 08:59 08/03/17 08:23 40 MG Insulin Glargine (Lantus Solostar Pen) see protocol text HS SC 08/01/17 21:00 08/31/17 20:59 Future Hold Calcitriol (Rocaltrol Cap) 0.25 mcg Q2D@0900 PO 08/02/17 09:00 09/01/17 08:59 08/02/17 08:24 0.25 MCG Calcium Carbonate (Tums Chew Tab) 500 mg TID PO 08/02/17 09:00 09/01/17 08:59 08/03/17 08:22 500 MG Enteral Nutritional Formula (Boost Glucose Control) 1 can BID@1000,2100 PO 08/01/17 21:00 08/31/17 20:59 08/02/17 20:36 1 CAN Impression (1) Cellulitis of left hand (2) ESRD (end stage renal disease) on dialysis (3) Renal cell carcinoma (4) Anemia (5) Diabetes type 2, controlled Mr. Christy has ESRD and metastatic RCC. He underwent left nephrectomy in 2016. Patient did not tolerate Sutent due to high grade proteinuria; Opdivo caused arthralgia, colitis and possible pneumonitis. He was most recently treated w/ Cabometyx. This was complicated by abdominal wall hematoma a intestinal perforation. He remains on steroids for interstitial lung disease versus [employer]. Mr. Christy was admitted with persistent soft tissue infection of the left hand. Patient tested positive for C. Difficile colitis. He has had a prolonged and complicated hospital course. On 07/21 Mr. Christy was diagnosed with intestinal perforation and required emergency laparotomy. 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 Partial colectomy w/ reanastomosis was completed Mr. Christy's dialysis was complicated by prolonged bleeding from the AVF following treatment. 07/23 duplex study demonstrated high grade venous outflow stenosis. Fistulogram with coil embolization completed 07/25/16. Mr. Christy developed acute hypoxic respiratory failure and respiratory distress requiring NIPPV. Heparin gtt started for suspected PE. Recommendations -- BP, electrolyte and volume status are currently appropriate. -- had HD yesterday --although O2 sat low requiring BiPAP, it is likely related to pneumonia/ pneumonitis not overt pulmonary edema --next Hd tomorrow. -- Protect LUE AVF -- Epogen with dialysis -- Treatment for renal cell carcinoma on hold due to acute comorbid conditions -- Calcitriol and CaCO3 on hold due to recent abdominal surgery, will resume once patient on regular oral diet --overall prognosis poor
[2017-08-03] MEDS: CASPOFUNGIN INJ 50 MG in SODIUM CHLORIDE 0.9% 250ML 250 ML IV SCH (12:10)
[2017-08-03 13:13] LABS: HEMATOCRIT 23.7 % (42-52); HEMOGLOBIN 7.7 g/dL (14.0-18.0)
--- NOTE | 2017-08-03 13:19 | Hematology/Oncology Prog Note ---
Hematology/Onc Progress Note Date of Service Aug 03, 2017. Diagnoses metastatic renal cell carcinoma Left hand and arm cellulitis End-stage renal disease Jejunal perforation Jejunal diverticulitis Medications Medications Administered Medications (Trade) Dose Ordered Sig/Edward Route Start Time Stop Time Status Last Admin Dose Admin Acetaminophen (Tylenol Tab) 650 mg Q4H PRN PO 07/05/17 21:45 07/21/17 15:11 DC 07/20/17 15:28 650 MG Ertapenem 500 mg/ Sodium Chloride 55 ml @ 120 mls/hr Q24H IV 07/05/17 23:00 07/13/17 16:37 DC 07/12/17 23:38 120 MLS/HR Daptomycin 350 mg/ Syringe 7 ml @ 3.5 mls/min Q48H IV 07/06/17 20:00 07/13/17 16:37 DC 07/12/17 20:52 3.5 MLS/MIN Amlodipine Besylate (Norvasc Tab) 10 mg QAM PO 07/06/17 09:00 07/21/17 15:11 DC 07/20/17 09:32 10 MG Aspirin (Ecotrin Tab) 81 mg QAM PO 07/06/17 09:00 07/21/17 15:11 DC 07/20/17 08:28 81 MG Calcitriol (Rocaltrol Cap) 0.25 mcg Q2D PO 07/06/17 09:00 07/21/17 15:11 DC 07/20/17 08:31 0.25 MCG Calcium Carbonate (Tums Chew Tab) 500 mg TID PO 07/06/17 09:00 07/07/17 13:22 DC 07/07/17 13:00 500 MG Furosemide (Lasix Tab) 40 mg QAM PO 07/06/17 09:00 07/21/17 15:11 DC 07/20/17 09:31 40 MG Hydralazine HCl (Apresoline Tab) 100 mg TID PO 07/06/17 09:00 07/21/17 15:11 DC 07/20/17 09:30 100 MG Lactobacillus Acidophilus (Floranex Tab) 2 tab TID PO 07/06/17 09:00 08/05/17 08:59 08/03/17 08:24 2 TAB Lisinopril (Zestril Tab) 40 mg DAILY PO 07/06/17 09:00 08/05/17 08:59 08/03/17 08:22 40 MG Methadone HCl (Dolophine Tab) 10 mg TID PO 07/06/17 09:00 07/14/17 09:02 DC 07/13/17 20:53 10 MG Metoprolol Tartrate (Lopressor Tab) 150 mg BID PO 07/06/17 09:00 07/21/17 15:11 DC 07/20/17 09:33 150 MG Polyethylene (Miralax Powder Packet) 17 gm DAILY PRN PO 07/06/17 02:30 07/11/17 16:34 DC 07/09/17 08:14 17 GM Prednisone (PredniSONE TAB) 10 mg BID PO 07/06/17 09:00 07/14/17 15:02 DC 07/14/17 10:09 10 MG Simvastatin (Zocor Tab) 20 mg QPM PO 07/06/17 21:00 07/21/17 15:11 DC 07/21/17 00:17 20 MG Tamsulosin HCl (Flomax Cap) 0.4 mg HS PO 07/06/17 21:00 07/21/17 15:11 DC 07/21/17 00:19 0.4 MG Cabozantinib (Cabometyx) 60 mg DAILY@0500 PO 07/06/17 05:00 07/19/17 16:17 DC 07/19/17 05:19 60 MG Oxycodone HCl (Roxicodone Immediate Rel Tab) 10 mg TID PO 07/06/17 09:00 07/10/17 13:21 DC 07/10/17 09:00 10 MG Insulin Aspart (novoLOG ASPART) SLIDING SCALE G... ACHS SC 07/06/17 07:00 07/22/17 17:01 DC 07/20/17 12:46 2 UNITS Methylprednisolone Sodium Succinate 50 mg/Syringe 0.8 ml @ 1.5 mls/min NOW ONCE IV 07/06/17 03:45 07/06/17 03:56 DC 07/06/17 04:30 1.5 MLS/MIN Miscellaneous Information (Check Fentanyl Patch Placement) 1 ea QS N/A 07/06/17 08:00 08/05/17 07:59 08/03/17 08:31 1 EA Dextrose (Dextrose 50% 50ML Syringe) 25-50ML OF 50% DW IV FOR... UD PRN IV 07/06/17 04:15 08/05/17 04:14 08/02/17 14:44 50 ML Epoetin Mohsen 8000 units/Syringe 0.4 ml @ 1 mls/min TODAY@0945 IV. 07/06/17 09:45 07/06/17 12:00 DC 07/06/17 12:02 1 MLS/MIN Insulin Glargine (Lantus Solostar Pen) 7 units HS SC 07/06/17 21:00 07/16/17 17:50 DC 07/15/17 20:33 7 UNITS Enteral Nutritional Formula (Boost Glucose Control) 1 can BIDM PO 07/06/17 16:45 07/20/17 08:42 DC 07/20/17 08:26 1 CAN Heparin Sodium (Porcine) (Heparin 10 Unit/ ml 5 ml Flush) 5 ml STK-MED ONCE .ROUTE 07/06/17 21:06 07/06/17 21:07 DC 07/06/17 21:16 5 ML Miscellaneous (Fentanyl Patch Remove & Waste) 1 ea Q3D N/A 07/10/17 01:00 07/19/17 09:10 DC 07/19/17 08:54 1 EA Fentanyl (Duragesic Patch) 25 mcg Q3D TD 07/07/17 01:00 07/19/17 09:14 DC 07/19/17 08:53 25 MCG Heparin Sodium (Porcine) (Heparin 100 Unit/ml 5ml Flush) 5 ml PRN PRN IV 07/07/17 02:45 08/06/17 02:44 Future hold 08/02/17 09:24 5 ML Epoetin Mohsen 8000 units/Syringe 0.4 ml @ 1 mls/min TODAY@0600 IV. 07/08/17 06:00 07/08/17 18:00 DC 07/08/17 18:15 1 MLS/MIN Calcium Carbonate (Tums Chew Tab) 500 mg TIDM PO 07/07/17 17:00 07/21/17 15:11 DC 07/20/17 17:27 500 MG Methylprednisolone Sodium Succinate 40 mg/Syringe 0.64 ml @ 1.5 mls/min ONE STAT IV 07/09/17 17:39 07/09/17 18:31 DC 07/09/17 21:39 1.5 MLS/MIN Oxycodone HCl (Roxicodone Immediate Rel Tab) 10 mg TID PRN PO 07/10/17 14:00 07/14/17 09:02 DC 07/14/17 01:11 10 MG Ondansetron HCl (Zofran Inj) 4 mg STK-MED ONCE .ROUTE 07/10/17 21:38 07/10/17 21:39 DC 07/10/17 21:40 4 MG Ondansetron HCl (Zofran Inj) 4 mg Q4H PRN IV 07/11/17 03:00 08/10/17 02:59 07/17/17 21:50 4 MG Pantoprazole Sodium 40 mg/ Syringe 10 ml @ 5 mls/min DAILY@11 IV 07/11/17 11:00 07/13/17 15:05 DC 07/13/17 14:22 5 MLS/MIN Ondansetron HCl (Zofran Inj) 4 mg STK-MED ONCE .ROUTE 07/11/17 02:55 07/11/17 02:56 DC 07/11/17 02:58 4 MG Prochlorperazine Edisylate 5 mg/ Syringe 5 ml @ 5 mls/min 1200 ONCE IV 07/11/17 12:00 07/11/17 12:01 DC 07/11/17 13:02 5 MLS/MIN Lactulose (Chronulac Syrup) 30 gm NOW STAT PO 07/11/17 16:32 07/11/17 16:36 DC 07/11/17 17:38 30 GM Senna (Senokot Tab) 8.6 mg QAM PO 07/12/17 08:00 07/21/17 15:11 DC 07/17/17 08:57 8.6 MG Senna (Senokot Tab) 8.6 mg 1632 ONCE PO 07/11/17 16:32 07/11/17 16:36 DC 07/11/17 17:38 8.6 MG Polyethylene (Miralax Powder Packet) 17 gm DAILY PO 07/11/17 16:45 07/21/17 15:11 DC 07/18/17 07:50 17 GM Levalbuterol (Xopenex 0.63 Mg/ 3 Ml Neb) 0.63 mg NOW STAT INH 07/11/17 22:09 07/11/17 22:18 DC 07/11/17 22:31 0.63 MG Heparin Sodium (Porcine) (Heparin Sq 5000 Unit/0.5ml) 5,000 unit Q12 SQ 07/12/17 21:00 07/13/17 14:10 DC 07/12/17 20:44 5,000 UNIT Vancomycin HCl (Vancomycin Oral Soln) 250 mg Q6H PO 07/12/17 17:00 07/15/17 15:40 DC 07/15/17 13:17 250 MG Raspberry (Raspberry Syrup 5ml Cup) 5 ml Q6H PO 07/12/17 17:00 07/21/17 15:11 DC 07/21/17 05:43 5 ML Epoetin Mohsen (Procrit Inj) 20,000 units TODAY@1100 IV 07/13/17 11:00 07/13/17 18:02 DC 07/13/17 13:00 20,000 UNITS Iron Sucrose 100 mg/Syringe 5 ml @ 1 mls/min TODAY IV 07/13/17 11:00 07/13/17 18:02 DC 07/13/17 13:05 1 MLS/MIN Pantoprazole Sodium (Protonix Tab) 40 mg QAM PO 07/14/17 08:00 07/14/17 23:59 DC 07/14/17 10:09 40 MG Vancomycin HCl 1750 mg/Sodium Chloride 535 ml @ 200 mls/hr ONE ONCE IV 07/13/17 17:30 07/13/17 20:10 DC 07/13/17 19:12 200 MLS/HR Aztreonam 2000 mg/ Dextrose 110 ml @ 110 mls/hr ONE ONCE IV 07/13/17 17:30 07/14/17 15:02 DC 07/13/17 17:45 110 MLS/HR Aztreonam 500 mg/ Dextrose 55 ml @ 110 mls/hr Q12H IV 07/14/17 09:00 07/14/17 15:02 DC 07/14/17 10:13 110 MLS/HR Oxycodone HCl (Roxicodone Immediate Rel Tab) 10 mg Q4H PRN PO 07/14/17 09:15 07/21/17 15:11 DC 07/20/17 16:51 10 MG Methadone HCl (Dolophine Tab) 20 mg BID PO 07/14/17 09:30 07/20/17 17:01 DC 07/20/17 08:28 20 MG Prednisone (PredniSONE TAB) 40 mg DAILY PO 07/15/17 08:00 07/21/17 15:11 DC 07/20/17 08:30 40 MG Prednisone (PredniSONE TAB) 30 mg NOW ONCE PO 07/14/17 15:30 07/14/17 15:31 DC 07/14/17 16:14 30 MG Piperacillin Sod/ Tazobactam Sod 3.375 gm/Dextrose 115 ml @ 28.75 mls/ hr Q12@1000,2200 IV 07/14/17 22:00 07/19/17 13:14 DC 07/19/17 09:57 28.75 MLS/HR Piperacillin Sod/ Tazobactam Sod 3.375 gm/Dextrose 115 ml @ 230 mls/hr NOW ONCE IV 07/14/17 15:30 07/14/17 15:59 DC 07/14/17 16:15 230 MLS/HR Epoetin Mohsen (Procrit Inj) 10,000 units TODAY@1400 SC 07/15/17 14:00 07/15/17 18:00 DC 07/15/17 13:58 10,000 UNITS Vancomycin HCl (Vancomycin Oral Soln) 125 mg Q6H PO 07/15/17 17:00 07/21/17 15:11 DC 07/21/17 05:42 125 MG Vancomycin HCl 500 mg/Sodium Chloride 260 ml @ 125 mls/hr TODAY@1700 IV 07/15/17 17:00 07/15/17 20:00 DC 07/15/17 17:28 125 MLS/HR Insulin Glargine (Lantus Solostar Pen) 8 units HS SC 07/16/17 21:00 07/19/17 22:14 DC 07/19/17 21:58 6 UNITS Simethicone (Mylicon Chew Tab) 80 mg NOW STAT PO 07/17/17 23:07 07/17/17 23:08 DC 07/17/17 23:51 80 MG Vancomycin HCl 500 mg/Sodium Chloride 260 ml @ 125 mls/hr 1400 IV 07/18/17 14:00 07/18/17 16:05 DC 07/18/17 14:33 125 MLS/HR Epoetin Mohsen 8000 units/Syringe 0.4 ml @ 1 mls/min TODAY@1200 IV. 07/18/17 12:00 07/18/17 23:59 DC 07/18/17 13:12 1 MLS/MIN Miscellaneous (Fentanyl Patch Remove & Waste) 1 ea Q3D@0859 N/A 07/22/17 08:59 08/21/17 08:58 08/03/17 08:32 1 EA Fentanyl (Duragesic Patch) 25 mcg Q3D@0900 TD 07/22/17 09:00 08/05/17 08:59 08/03/17 08:32 25 MCG Epoetin Mohsen 8000 units/Syringe 0.4 ml @ 1 mls/min TODAY@0600 IV. 07/20/17 06:00 07/20/17 18:00 DC 07/20/17 22:50 1 MLS/MIN Levofloxacin (Levaquin Tab) 750 mg TODAY@1600 ONCE PO 07/19/17 16:00 07/19/17 16:01 DC 07/19/17 17:04 750 MG Insulin Glargine (Lantus Solostar Pen) 6 units HS SC 07/20/17 21:00 07/31/17 07:50 DC 07/30/17 20:41 6 UNITS Ergocalciferol (Vitamin D Cap) 50,000 interunit Q7D@0900 PO 07/20/17 09:00 08/19/17 08:59 08/03/17 08:22 50,000 INTERUNIT Enteral Nutritional Formula (Boost) 1 can TID PO 07/20/17 14:00 07/21/17 15:12 DC 07/21/17 00:14 1 CAN Ranitidine HCl (zANTac TAB) 150 mg DAILY PO 07/20/17 13:00 07/21/17 15:12 DC 07/20/17 12:42 150 MG Methadone HCl (Dolophine Tab) 30 mg BID PO 07/20/17 20:00 07/21/17 17:31 DC 07/21/17 00:16 30 MG Piperacillin Sod/ Tazobactam Sod 3.375 gm/Dextrose 115 ml @ 200 mls/hr NOW ONCE IV 07/21/17 08:00 07/21/17 08:34 DC 07/21/17 10:32 200 MLS/HR Piperacillin Sod/ Tazobactam Sod 3.375 gm/Dextrose 115 ml @ 28.75 mls/ hr Q12H IV 07/21/17 20:00 07/22/17 11:18 DC 07/22/17 08:17 28.75 MLS/HR Fentanyl Citrate (Fentanyl Inj) 50 mcg Q5M PRN IV 07/21/17 11:45 07/21/17 16:45 DC 07/21/17 14:24 50 MCG Hydromorphone HCl (Dilaudid Inj) 0.5 mg Q5M PRN IV 07/21/17 11:45 07/21/17 16:45 DC 07/21/17 15:10 0.5 MG Hydralazine HCl (HydrALAZINE INJ) 5 mg Q4 PRN IV. 07/21/17 17:15 08/20/17 17:14 Future Hold 07/25/17 23:45 5 MG Furosemide 20 mg/ Syringe 2 ml @ 4 mls/min QAM IV 07/22/17 09:00 07/31/17 12:57 DC 07/30/17 08:32 4 MLS/MIN Hydralazine HCl (HydrALAZINE INJ) 5 mg TID IV. 07/21/17 21:00 08/20/17 20:59 Future Hold 07/30/17 08:33 5 MG Metoprolol Tartrate (Lopressor Iv) 2.5 mg Q6 IV. 07/21/17 18:00 07/22/17 08:59 DC 07/22/17 00:00 2.5 MG Methylprednisolone Sodium Succinate 40 mg/Syringe 0.64 ml @ 1.5 mls/min DAILY IV 07/22/17 09:00 07/30/17 21:14 DC 07/30/17 08:32 1.5 MLS/MIN Fentanyl Citrate (Fentanyl Inj) Fentanyl 25-50 mcg... Q4H PRN IV 07/21/17 20:45 08/04/17 20:44 07/24/17 05:47 50 MCG Metoprolol Tartrate (Lopressor Iv) 5 mg Q6 IV. 07/22/17 12:00 07/29/17 14:45 DC 07/29/17 11:42 5 MG Metronidazole 500 mg/Prmx 100 ml @ 100 mls/hr Q8@04,12,20 IV 07/22/17 12:00 07/26/17 12:25 DC 07/26/17 04:06 100 MLS/HR Nutrition (Parenteral) 0 ml @ 0 mls/hr TODAY@1600 IV 07/22/17 16:00 07/23/17 15:59 DC 07/22/17 16:22 0 MLS/HR Vancomycin HCl 750 mg/Sodium Chloride 265 ml @ 125 mls/hr NOW ONCE IV 07/22/17 11:30 07/22/17 13:37 DC 07/22/17 12:38 125 MLS/HR Cefepime HCl 500 mg/Syringe 5.5 ml @ 5.5 mls/min DAILY@1600 IV 07/23/17 16:00 07/30/17 21:12 DC 07/30/17 16:02 5.5 MLS/MIN Cefepime HCl 1000 mg/Syringe 11 ml @ 5.5 mls/min TODAY@1800 ONCE IV 07/22/17 18:00 07/22/17 18:01 DC 07/22/17 18:17 5.5 MLS/MIN Insulin Aspart (novoLOG ASPART) SLIDING SCALE G... Q6 SC 07/22/17 18:00 07/26/17 10:14 DC 07/26/17 05:55 8 UNITS Albumin Human (Albumin 25%) 25 gm ONE ONCE IV 07/23/17 09:30 07/23/17 09:31 DC 07/23/17 10:30 25 GM Epoetin Mohsen 8000 units/Syringe 0.4 ml @ 1 mls/min 1000 ONCE IV. 07/23/17 10:00 07/23/17 10:01 DC 07/23/17 13:05 1 MLS/MIN Nutrition (Parenteral) 0 ml @ 0 mls/hr TODAY@1600 IV 07/23/17 16:00 07/24/17 15:59 DC 07/23/17 14:43 0 MLS/HR Vancomycin HCl 1000 mg/Sodium Chloride 270 ml @ 125 mls/hr TODAY@1415 IV 07/23/17 14:15 07/23/17 18:00 DC 07/23/17 14:46 125 MLS/HR Methadone HCl (Dolophine Tab) 20 mg BID PO 07/23/17 21:00 07/25/17 08:49 DC 07/24/17 21:22 20 MG Morphine Sulfate (MoRPHine SULFATE INJ) 2 mg Q3RWA PRN IV 07/24/17 11:30 08/07/17 11:29 08/02/17 12:48 2 MG Nutrition (Parenteral) 0 ml @ 0 mls/hr TODAY@1600 IV 07/24/17 16:00 07/25/17 15:59 DC 07/24/17 15:22 66.1 MLS/HR Insulin Human Regular 8 units/ Syringe 8 ml @ 30 mls/min TODAY@0030 IV 07/25/17 00:30 07/25/17 00:31 DC 07/25/17 00:57 30 MLS/MIN Non-Formulary Medication (Patient'S Own Controlled Med) 1 ea BID PEG 07/25/17 09:00 07/28/17 11:23 DC 07/28/17 09:16 1 EA Methadone HCl (Methadone HCl) 20 mg BID GT 07/25/17 09:00 07/28/17 11:23 DC 07/28/17 09:16 20 MG Nutrition (Parenteral) 0 ml @ 0 mls/hr TODAY@1600 IV 07/25/17 16:00 07/26/17 15:59 DC 07/25/17 16:33 0 MLS/HR Furosemide (Lasix Inj) 40 mg ONE ONCE IV 07/26/17 03:45 07/26/17 03:46 DC 07/26/17 04:00 40 MG Insulin Human NPH (novoLIN-N U-100 NPH PER UNIT) 20 units ONE ONCE SQ 07/26/17 08:45 07/26/17 08:46 DC 07/26/17 09:38 20 UNITS Nutrition (Parenteral) 0 ml @ 0 mls/hr TODAY@1600 IV 07/26/17 16:00 07/27/17 15:59 DC 07/26/17 16:08 0 MLS/HR Vancomycin HCl 750 mg/Sodium Chloride 265 ml @ 125 mls/hr TODAY@1400 IV 07/26/17 14:00 07/27/17 06:50 DC 07/26/17 15:16 125 MLS/HR Insulin Aspart (novoLOG ASPART) SLIDING SCALE G... Q4H SC 07/26/17 10:00 07/27/17 11:02 DC 07/27/17 04:33 2 UNITS Heparin Sodium/ Dextrose 1 ea Q15M N/A 07/26/17 12:00 07/26/17 13:58 DC 07/26/17 12:26 1 EA Heparin Sodium/ Dextrose 500 ml @ 13 mls/hr Q24H PRN IV 07/26/17 12:15 07/30/17 15:39 DC 07/29/17 19:03 13 MLS/HR Metronidazole 500 mg/Prmx 100 ml @ 100 mls/hr Q8H IV 07/26/17 15:00 07/30/17 21:12 DC 07/30/17 15:02 100 MLS/HR Epoetin Mohsen 4000 units/Syringe 0.2 ml @ 1 mls/min 1630 IV. 07/26/17 16:30 07/26/17 18:30 DC 07/26/17 16:09 1 MLS/MIN Magnesium Sulfate 1 gm/Prmx 100 ml @ 100 mls/hr NOW STAT IV 07/27/17 08:15 07/27/17 09:14 DC 07/27/17 10:53 100 MLS/HR Potassium Chloride 10 meq/ Prmx 100 ml @ 100 mls/hr NOW STAT IV 07/27/17 08:16 07/27/17 09:15 DC 07/27/17 10:35 100 MLS/HR Caspofungin 70 mg/ Sodium Chloride 260 ml @ 250 mls/hr 1100 ONCE IV 07/27/17 11:00 07/27/17 12:02 DC 07/27/17 12:43 250 MLS/HR Caspofungin 50 mg/ Sodium Chloride 260 ml @ 250 mls/hr Q24H IV 07/28/17 12:00 08/06/17 11:59 08/03/17 12:10 250 MLS/HR Insulin Aspart (novoLOG ASPART) SLIDING SCALE G... ACHS SC 07/27/17 11:30 08/26/17 11:29 08/03/17 08:36 3 UNITS Nutrition (Parenteral) 0 ml @ 0 mls/hr TODAY@1600 IV 07/27/17 16:00 07/28/17 15:59 DC 07/27/17 16:14 0 MLS/HR Potassium Chloride 10 meq/ Prmx 100 ml @ 100 mls/hr 1600 ONCE IV 07/27/17 16:00 07/27/17 16:59 DC 07/27/17 17:37 100 MLS/HR Epoetin Mohsen 4000 units/Syringe 0.2 ml @ 1 mls/min TODAY@0800 IV. 07/28/17 08:00 07/28/17 18:00 DC 07/28/17 12:46 1 MLS/MIN Nutrition (Parenteral) 0 ml @ 0 mls/hr TODAY@1600 IV 07/28/17 16:00 07/29/17 15:59 DC 07/28/17 16:22 0 MLS/HR Insulin Aspart (novoLOG ASPART) SLIDING SCALE G... TODAY@0200 NC 07/29/17 02:00 07/29/17 02:01 DC 07/29/17 02:16 7 UNITS Methadone HCl (Dolophine Tab) 20 mg BID PO 07/28/17 21:00 08/08/17 08:59 08/03/17 08:23 20 MG Vancomycin HCl 750 mg/Sodium Chloride 265 ml @ 125 mls/hr TODAY@1600 ONCE IV 07/28/17 16:00 07/28/17 18:07 DC 07/28/17 16:08 125 MLS/HR Nutrition (Parenteral) 0 ml @ 0 mls/hr TODAY@1600 IV 07/29/17 16:00 07/30/17 15:59 DC 07/29/17 15:37 0 MLS/HR Ipratropium Eagle (Atrovent 0.02% 0.5MG/2.5ML Neb) 0.5 mg Q6R INH 07/29/17 09:00 08/28/17 08:59 08/03/17 07:13 0.5 MG Levalbuterol (Xopenex 0.63 Mg/ 3 Ml Neb) 0.63 mg Q6R INH 07/29/17 09:00 08/28/17 08:59 08/03/17 07:13 0.63 MG Metoprolol Tartrate (Lopressor Tab) 100 mg BID PO 07/29/17 21:00 08/28/17 20:59 08/03/17 08:23 100 MG Amlodipine Besylate (Norvasc Tab) 10 mg QAM PO 07/30/17 09:00 08/29/17 08:59 08/03/17 08:23 10 MG Methylprednisolone Sodium Succinate 40 mg/Syringe 0.64 ml @ 1.5 mls/min NOW ONCE IV 07/30/17 13:45 07/30/17 13:46 DC 07/30/17 13:52 1.5 MLS/MIN Diphenhydramine HCl (Benadryl Inj) 50 mg NOW ONCE IV 07/30/17 13:45 07/30/17 13:46 DC 07/30/17 13:52 50 MG Heparin Sodium (Porcine) (Heparin Sq 5000 Unit/0.5ml) 5,000 unit Q8 SQ 07/30/17 22:00 08/29/17 21:59 08/03/17 06:14 5,000 UNIT Prednisone (PredniSONE TAB) 20 mg BIDM PO 07/31/17 07:30 08/30/17 07:29 08/03/17 08:24 20 MG Insulin Glargine (Lantus Solostar Pen) 6 units NOW ONCE SC 07/31/17 08:00 07/31/17 08:01 DC 07/31/17 08:14 6 UNITS Insulin Glargine (Lantus Solostar Pen) see protocol text 07/31/17 SC 07/31/17 21:00 07/31/17 21:01 DC 07/31/17 21:01 12 UNITS Furosemide (Lasix Tab) 40 mg QAM PO 08/01/17 09:00 08/31/17 08:59 08/03/17 08:23 40 MG Insulin Glargine (Lantus Solostar Pen) 6 units NOW ONCE SC 08/01/17 12:00 08/01/17 12:01 DC 08/01/17 12:26 6 UNITS Calcitriol (Rocaltrol Cap) 0.25 mcg Q2D@0900 PO 08/02/17 09:00 09/01/17 08:59 08/02/17 08:24 0.25 MCG Calcium Carbonate (Tums Chew Tab) 500 mg TID PO 08/02/17 09:00 09/01/17 08:59 08/03/17 08:22 500 MG Insulin Glargine (Lantus Solostar Pen) 6 units QAM SC 08/02/17 09:00 08/03/17 07:34 DC 08/02/17 08:38 6 UNITS Enteral Nutritional Formula (Boost Glucose Control) 1 can BID@1000,2100 PO 08/01/17 21:00 08/31/17 20:59 08/02/17 20:36 1 CAN Insulin Glargine (Lantus Solostar Pen) 10 units HS SC 08/01/17 21:00 08/01/17 23:59 DC 08/01/17 22:11 10 UNITS Subjective Seems more's tired today. He denies pain. He is trying to eat as much as he can. Pleural fluid is negative for malignancy. Remains afebrile Review of Systems: Constitutional: Negative for night sweats, or fever Eyes: Negative for event change of vision ENT: Negative for epistaxis, nasal discharge, sore throat, or deafness Cardiovascular: Negative for chest pain, palpitations, dizziness, diaphoresis Respiratory: Negative for new shortness of breath,hemoptysis, or purulent cough Gastrointestinal: Negative for diarrhea, hematemesis, melena, nausea, vomiting , or dyspepsia Integumentary (skin): Negative for rash or jaundice discoloration Neurological: Negative for weakness, seizure activity, headache, or dizziness Lymphatic/Hematologic: Negative for petechiae, bleeding or new adenopathy Musculoskeletal: Negative for new joint or back pain Allergic/Immunologic: Negative for unusual rash or pruritis. Vital Signs Vital Signs Past 12 Hours Date Time Temp Pulse Resp B/P (MAP) Pulse Ox O2 Delivery O2 Flow Rate FiO2 08/03/17 12:07 37.0 87 18 98/78 (85) 95 08/03/17 12:00 BiPAP 80 08/03/17 08:40 36.9 88 18 101/90 (94) 95 08/03/17 08:00 BiPAP 80 08/03/17 07:18 91 97 80 08/03/17 07:14 91 18 97 BiPAP/CPAP 80 08/03/17 04:00 BiPAP 80 08/03/17 03:41 37.1 97 18 144/69 (94) 97 08/03/17 01:43 93 18 95 BiPAP/CPAP 80 Physical Exam Constitutional: vitals are stable. O2 ongoing. Eyes: Eyes are YSABEL EOMI without conjuctival erythema or icterus. ENT: External examination was negative for masses. Neck: Negative for masses or palpable thyromegaly Respiratory: Lung sounds were generally clear bilaterally Cardiovascular: Heart was RRR without significant murmur, gallops aoe rubs Gastrointestinal: No palpable hepatic or splenomegaly. The abdomen was distended. Bowel sounds decreased. Lymphatic system: there was no palpable peripheral lymphadenopathy Musculoskeletal System: The musculoskeletal system seemed concordant with age. Skin: The skin was negative for jaundice. Neurologic exam: The exam was negative for any focal findings. Deep tendon reflexes were equal and symmetrical. Psychiatric exam: Was essentially negative with normal mood and effect. Laboratory Last 24 Hours Test 08/02/17 14:32 08/02/17 15:03 08/02/17 16:30 08/02/17 20:16 Bedside Glucose 39 mg/dl 132 mg/dl 84 mg/dl 30 mg/dl Test 08/02/17 20:53 08/02/17 23:55 08/03/17 00:02 08/03/17 00:31 Bedside Glucose 170 mg/dl 61 mg/dl 62 mg/dl 67 mg/dl Test 08/03/17 00:57 08/03/17 03:02 08/03/17 05:24 08/03/17 06:25 Bedside Glucose 93 mg/dl 108 mg/dl 168 mg/dl White Blood Count 12.76 K/uL Red Blood Count 2.47 M/uL Hemoglobin 7.4 g/dL Hematocrit 22.4 % Mean Corpuscular Volume 90.7 fL Mean Corpuscular Hemoglobin 30.0 pg Mean Corpuscular Hemoglobin Concent 33.0 g/dl RDW Standard Deviation 65.3 fL RDW Coefficient of Variation 20.4 % Platelet Count 111 K/uL Mean Platelet Volume 11.7 fL Nucleated RBC Absolute Count (auto) 0.32 K/uL Nucleated Red Blood Cells % 2.5 % Sodium Level 135 mmol/L Potassium Level 4.4 mmol/L Chloride Level 98 mmol/L Carbon Dioxide Level 31 mmol/L Anion Gap 6.0 mmol/L Blood Urea Nitrogen 55 mg/dl Creatinine 2.79 mg/dl Est Creatinine Clear Calc Drug Dose 28.0 ml/min Estimated GFR () 26.7 Estimated GFR (Non- 23.1 BUN/Creatinine Ratio 19.8 Random Glucose 138 mg/dl Calcium Level 6.8 mg/dl Test 08/03/17 11:32 08/03/17 13:03 Bedside Glucose 138 mg/dl Hemoglobin 7.7 g/dL Hematocrit 23.7 % Assessment & Plan Clinically appears stable but overall he seems to decline some. He is not quite as spontaneously as conversation today. His exam remains unchanged. Pleural fluid is negative for malignancy. Appreciate everyone's help in caring for Mr. Christy. We have little to offer as a service currently. We will sign off but please not hesitate to reconsult. For now he will have a tentative follow-up with our clinic in 3-4 weeks
--- NOTE | 2017-08-03 13:43 | Hospitalist Progress Note ---
Hospitalist Progress Note Date of Service Aug 03, 2017. Subjective Pt evaluation today including: conversation w/ patient, physical exam, lab review, conversation w/ nurse consultant, review of inpatient medication list Voiding: no voiding problems Patient resting in bed. No requiring BiPAP. Ate very little this AM due to SOB and BiPAP. Pain is well controlled. Abdominal incision site pain is tolerable. Discussed pulmonary recommendations for more activity, out of bed, and incentive spirometer. +weakness. Patient denies any fever, chills, sweats, lightheadedness, dizziness, vision changes, CP, palpitations, edema, wheezing, cough, nausea, vomiting, diarrhea, urinary symptoms, melena, numbness/tingling, anxiety/depression, active bleeding , or new skin discoloration/changes. Medications Current Inpatient Medications Medications (Trade) Dose Ordered Sig/Edward Route Start Time Stop Time Status Last Admin Dose Admin Lactobacillus Acidophilus (Floranex Tab) 2 tab TID PO 07/06/17 09:00 08/05/17 08:59 08/03/17 08:24 2 TAB Lisinopril (Zestril Tab) 40 mg DAILY PO 07/06/17 09:00 08/05/17 08:59 08/03/17 08:22 40 MG Miscellaneous Information (Check Fentanyl Patch Placement) 1 ea QS N/A 07/06/17 08:00 08/05/17 07:59 08/03/17 08:31 1 EA Glucose (Glucose 40% Gel) 15-30 GRAMS 15 GRAMS... UD PRN PO 07/06/17 04:15 08/05/17 04:14 Glucose (Glucose Chew Tab) 4-8 Tablets 4 Tabl... UD PRN PO 07/06/17 04:15 08/05/17 04:14 Dextrose (Dextrose 50% 50ML Syringe) 25-50ML OF 50% DW IV FOR... UD PRN IV 07/06/17 04:15 08/05/17 04:14 08/02/17 14:44 50 ML Glucagon (Glucagon Inj) 1 mg UD PRN SQ 07/06/17 04:15 08/05/17 04:14 Heparin Sodium (Porcine) (Heparin 100 Unit/ml 5ml Flush) 5 ml PRN PRN IV 07/07/17 02:45 08/06/17 02:44 Future hold 08/02/17 09:24 5 ML Ondansetron HCl (Zofran Inj) 4 mg Q4H PRN IV 07/11/17 03:00 08/10/17 02:59 07/17/17 21:50 4 MG Prochlorperazine Edisylate 5 mg/ Syringe 5 ml @ 5 mls/min Q4H PRN IV 07/11/17 14:00 08/10/17 13:59 Lactulose (Chronulac Syrup) 30 gm Q4H PRN PO 07/11/17 16:45 08/10/17 16:44 Miscellaneous (Fentanyl Patch Remove & Waste) 1 ea Q3D@0859 N/A 07/22/17 08:59 08/21/17 08:58 08/03/17 08:32 1 EA Fentanyl (Duragesic Patch) 25 mcg Q3D@0900 TD 07/22/17 09:00 08/05/17 08:59 08/03/17 08:32 25 MCG Ergocalciferol (Vitamin D Cap) 50,000 interunit Q7D@0900 PO 07/20/17 09:00 08/19/17 08:59 08/03/17 08:22 50,000 INTERUNIT Hydralazine HCl (HydrALAZINE INJ) 5 mg Q4 PRN IV. 07/21/17 17:15 08/20/17 17:14 Future Hold 07/25/17 23:45 5 MG Hydralazine HCl (HydrALAZINE INJ) 5 mg TID IV. 07/21/17 21:00 08/20/17 20:59 Future Hold 07/30/17 08:33 5 MG Fentanyl Citrate (Fentanyl Inj) Fentanyl 25-50 mcg... Q4H PRN IV 07/21/17 20:45 08/04/17 20:44 07/24/17 05:47 50 MCG Miscellaneous Information (Consult Glycemic Management Pharmacy) 1 ea UD PRN N/A 07/23/17 13:14 08/22/17 13:13 Morphine Sulfate (MoRPHine SULFATE INJ) 2 mg Q3RWA PRN IV 07/24/17 11:30 08/07/17 11:29 08/02/17 12:48 2 MG Caspofungin 50 mg/ Sodium Chloride 260 ml @ 250 mls/hr Q24H IV 07/28/17 12:00 08/06/17 11:59 08/03/17 12:10 250 MLS/HR Insulin Aspart (novoLOG ASPART) SLIDING SCALE G... ACHS SC 07/27/17 11:30 08/26/17 11:29 08/03/17 08:36 3 UNITS Methadone HCl (Dolophine Tab) 20 mg BID PO 07/28/17 21:00 08/08/17 08:59 08/03/17 08:23 20 MG Ipratropium [place] (Atrovent 0.02% 0.5MG/2.5ML Neb) 0.5 mg Q6R INH 07/29/17 09:00 08/28/17 08:59 08/03/17 07:13 0.5 MG Levalbuterol (Xopenex 0.63 Mg/ 3 Ml Neb) 0.63 mg Q6R INH 07/29/17 09:00 08/28/17 08:59 08/03/17 07:13 0.63 MG Metoprolol Tartrate (Lopressor Tab) 100 mg BID PO 07/29/17 21:00 08/28/17 20:59 08/03/17 08:23 100 MG Amlodipine Besylate (Norvasc Tab) 10 mg QAM PO 07/30/17 09:00 08/29/17 08:59 08/03/17 08:23 10 MG Ioversol (Optiray 320) 111 ml UD PRN IV 07/30/17 13:30 08/03/17 13:29 Diphenhydramine HCl (Benadryl Inj) 50 mg 4XDQ4H PRN IV 07/30/17 13:30 08/29/17 13:29 Heparin Sodium (Porcine) (Heparin Sq 5000 Unit/0.5ml) 5,000 unit Q8 SQ 07/30/17 22:00 08/29/17 21:59 08/03/17 06:14 5,000 UNIT Prednisone (PredniSONE TAB) 20 mg BIDM PO 07/31/17 07:30 08/30/17 07:29 08/03/17 08:24 20 MG Furosemide (Lasix Tab) 40 mg QAM PO 08/01/17 09:00 08/31/17 08:59 08/03/17 08:23 40 MG Insulin Glargine (Lantus Solostar Pen) see protocol text HS SC 08/01/17 21:00 08/31/17 20:59 Future Hold Calcitriol (Rocaltrol Cap) 0.25 mcg Q2D@0900 PO 08/02/17 09:00 09/01/17 08:59 08/02/17 08:24 0.25 MCG Calcium Carbonate (Tums Chew Tab) 500 mg TID PO 08/02/17 09:00 09/01/17 08:59 08/03/17 08:22 500 MG Enteral Nutritional Formula (Boost Glucose Control) 1 can BID@1000,2100 PO 08/01/17 21:00 08/31/17 20:59 08/02/17 20:36 1 CAN Objective Vital Signs Date Time Temp Pulse Resp B/P (MAP) Pulse Ox O2 Delivery O2 Flow Rate FiO2 08/03/17 12:07 37.0 87 18 98/78 (85) 95 08/03/17 12:00 BiPAP 80 08/03/17 08:40 36.9 88 18 101/90 (94) 95 08/03/17 08:00 BiPAP 80 08/03/17 07:18 91 97 80 08/03/17 07:14 91 18 97 BiPAP/CPAP 80 08/03/17 04:00 BiPAP 80 08/03/17 03:41 37.1 97 18 144/69 (94) 97 08/03/17 01:43 93 18 95 BiPAP/CPAP 80 08/03/17 00:59 37.5 106 16 161/73 (102) 90 Room Air 08/03/17 00:00 BiPAP 80 08/02/17 22:35 108 82 5.0 08/02/17 20:09 103 20 159/70 (99) 08/02/17 20:00 BiPAP 80 08/02/17 18:45 123 112/60 08/02/17 18:45 36.4 114 152/65 (94) 08/02/17 18:30 124 106/72 08/02/17 18:15 76 123/102 08/02/17 18:00 118 124/69 08/02/17 17:45 116 90/58 08/02/17 17:30 105 138/62 08/02/17 17:15 110 123/66 08/02/17 17:00 108 125/56 08/02/17 16:45 104 117/65 08/02/17 16:30 104 129/67 08/02/17 16:15 106 122/68 08/02/17 16:00 Oxymask 13.0 08/02/17 16:00 109 139/66 08/02/17 15:45 102 151/68 08/02/17 15:30 107 135/66 08/02/17 15:15 100 147/69 08/02/17 15:00 104 159/66 08/02/17 14:45 103 198/72 08/02/17 14:45 36.5 95 184/80 (114) 08/02/17 14:37 108 18 91 Mask 15.0 Physical Exam General Appearance: no apparent distress, + pertinent finding (BiPAP; ill- appearing ) Eyes: normal inspection, PERRL ENT: hearing grossly normal Neck: supple Respiratory/Chest: no respiratory distress, no accessory muscle use, + decreased breath sounds (throughout, > at bases ) Cardiovascular: regular rate, rhythm Abdomen: normal bowel sounds, non tender, soft, + pertinent finding (Incision bandage C/D/I ) Extremities: no calf tenderness, + swelling (+2 pitting edema of bilateral lower extremities ), + pertinent finding (no significant erythema, warmth, or drainage to L hand; noted scab to proximal L thumb region ) Neurologic/Psychiatric: alert, normal mood/affect, oriented x 3, + pertinent finding (+tremor ) Skin: normal color, warm/dry, no rash Laboratory Results Last 24 Hours Test 08/02/17 14:32 08/02/17 15:03 08/02/17 16:30 08/02/17 20:16 Bedside Glucose 39 mg/dl 132 mg/dl 84 mg/dl 30 mg/dl Test 08/02/17 20:53 08/02/17 23:55 08/03/17 00:02 08/03/17 00:31 Bedside Glucose 170 mg/dl 61 mg/dl 62 mg/dl 67 mg/dl Test 08/03/17 00:57 08/03/17 03:02 08/03/17 05:24 08/03/17 06:25 Bedside Glucose 93 mg/dl 108 mg/dl 168 mg/dl White Blood Count 12.76 K/uL Red Blood Count 2.47 M/uL Hemoglobin 7.4 g/dL Hematocrit 22.4 % Mean Corpuscular Volume 90.7 fL Mean Corpuscular Hemoglobin 30.0 pg Mean Corpuscular Hemoglobin Concent 33.0 g/dl RDW Standard Deviation 65.3 fL RDW Coefficient of Variation 20.4 % Platelet Count 111 K/uL Mean Platelet Volume 11.7 fL Nucleated RBC Absolute Count (auto) 0.32 K/uL Nucleated Red Blood Cells % 2.5 % Sodium Level 135 mmol/L Potassium Level 4.4 mmol/L Chloride Level 98 mmol/L Carbon Dioxide Level 31 mmol/L Anion Gap 6.0 mmol/L Blood Urea Nitrogen 55 mg/dl Creatinine 2.79 mg/dl Est Creatinine Clear Calc Drug Dose 28.0 ml/min Estimated GFR () 26.7 Estimated GFR (Non- 23.1 BUN/Creatinine Ratio 19.8 Random Glucose 138 mg/dl Calcium Level 6.8 mg/dl Test 08/03/17 11:32 Bedside Glucose 138 mg/dl Assessment and Plan Mr. Christy is a 61 y/o M with PMH of ESRD on HD, RCC, DMII. Admitted for L hand cellulitis having failed outpatient management. Abdominal pain, found to have incidental rectus sheath hematoma, C.diff positive colitis and subsequent bowel perforation on 07/21, now s/p colectomy, anemia, and bilateral pneumonia on imaging. C. diff colitis, perforated jejunal bowel (suspected to result from chemo regimen) s/p colectomy, rectus sheath hematoma: - Monitoring on tele- no acute events - Surgical management as per surgery- POD #11: -- TPN completed on 07/29/17 - Currently on mechanical soft diet - Underlying severe protein malnutrition, albumin 1.3- boost BID added - C.Diff + 07/12/17: Completed 9 days of PO Vancomycin - C. glabratum growth- ID recommending Caspofungin x10 days- last day of treatment on 08/06/17 - Pain controlled w/ Methadone and Morphine IV PRN Metastatic RCC s/p L nephrectomy, chronic pain: - Oncology following- holding treatment at this time due to acute issues- f/u outpatient - Palliative care following- appreciate recommendations for pain control- Methadone, Fentanyl, and Morphine PRN ESRD HD, secondary to RCC/ s/p left nephrectomy- HD on MWF: - Nephrology following - 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 on 07/23 - Vascular surgery consulted- s/p AVR repair on 07/25/17 - Hypocalcemia w/ vitamin D level of 9.4: Ergocalciferol 50,000 q7d indefinitely + daily D3 1999 when patient resumes oral intake- recheck levels in 12 weeks ESRD bone mineral disease: Resume Calcitriol and CaCO3 Left hand cellulitis- RESOLVED: - Initial MRI did not determine any osteomyelitis - ID consulted: treated initially with Ertapenem/Daptomycin, then transitioned to Cefepime- treated 07/22- 07/30 Acute hypoxia respiratory failure, ?secondary to pulmonary edema vs cryptogenic organizing pneumonia/drug related pneumonitis: - Continue O2 supplementation to maintain SaO2 >92%, wean as tolerated - Started on heparin drip on 07/26 for presumed PE- CTA 07/30/17 negative for PE, thus heparin drip stopped - Large R pleural effusion s/p thoracentesis completed 07/30/17- pleural pathology w/ no malignancy, pleural cultures growing yeast- on IV Caspofungin - IV Solu-Medrol- transitioned to Prednisone 20 mg BID on 07/31 - DuoNebs QID and PRN - Pulmonary following -- Think poor respiratory status is secondary to inactivity- encouraged incentive spirometer, OOB in chair throughout day, working w/ PT DMII: - BSG ACHS and ISS - Pharmacy consulted for glycemic management- on Lantus sliding scale Acute anemia- transfused a total of 6 u PRBCs: - Nephrology following- Epogen with dialysis - H&H- 7.4 and 7.7 today- continue to follow and transfuse PRN for hgb < 7.0 or symptomatic HTN, HLD: - Furosemide 40 mg PO daily, Amlodipine 10 mg daily, Metoprolol 100 mg PO BID, Lisinopril 40 mg daily - Hydralazine 100 mg TID held- BPs well controlled at this time - Monitor I&Os and daily weights - Simvastatin 20 mg HS held due to NPO status- will resume once tolerating regular diet BPH: Tamsulosin 0.4 mg PO daily held due to NPO status- will resume once tolerating regular diet DVT Prophylaxis: Heparin SQ TID Code Status: LEVEL I, FULL Dispo: Discharge uncertain- planning for [facility] at discharge- PT/OT and CM consulted
--- NOTE | 2017-08-03 16:31 | Pulmonology Progress Note ---
Pulmonary Progress Note Date of Service Aug 03, 2017. Attending Dr. Vines Subjective Mr. Christy was very tired and lethargic this morning when I saw him initially. He was seen again this afternoon with Dr. Jasmyn israel and was awake and very interactive. The bed had been moved into a chair position and Mr. Christy was doing bicep curls to body weight as well as lifting his legs and flexing and extending ankles and feet. He indicates that he is still short of breath but feels a little bit better than yesterday. He has a little bit more energy than yesterday. It should be noted that the patient was on dialysis yesterday which fatigues him severely. The patient has no nausea or vomiting. He does continue with some abdominal pain which is somewhat limiting for deep breaths. While he does not feel like he has made any significant progress since yesterday he does state that he feels like things are stable and "maybe a little better". The patient denies fever or chills. He had no sweats overnight. He has generalized body aches and soreness from being in one position. He is anxious to have physical therapy and get out of bed to chair. Objective Vital Signs - as noted below Laboratory Data - as noted below Physical Exam: General - NAD Eyes - No icterus, gaze conjugate ENT - Mucosa moist, no lesions or candidiasis. Oxymask in place Neck - Supple, No JVD Lungs - The patient continues with decreased breath sounds but has a slightly increased effort as compared to yesterday. Very faint wheezes are present on my exam Heart - Regular, rate controlled Abdomen - Soft, NT, ND, BS present Extremities - No edema, pedal pulses intact. AV fistula in the left arm with adequate bruit Neuro - A&OX3 Assessment & Plan ACUTE HYPOXIC RESPIRATORY FAILURE Patient continues to require high-volume supplemental oxygen with Oxymask and BiPAP Thoracentesis on the right 07/30/17 secondary to large pleural effusion - 1350 mL out of serosanguineous fluid. Chest x-ray today shows no reaccumulation of fluid We will again emphasize that patient should be out of bed to bedside chair as tolerated and ambulate as tolerated Recommend physical therapy to at least sit patient on the edge of bed and dangle legs Patient may with cellulitis of the hand. Cultures from the operating room grew out Cecilia glabrata - caspofungin was added by ID Continue incentive spirometry and flutter valve as tolerated PLEURAL EFFUSION Status post thoracentesis 07/30/[address] Clark Pathology and microbiology with the [place] but no malignant cells No redevelopment of effusion on chest x-ray 08/02/17 POSSIBLE CRYPTOGENIC ORGANIZING PNEUMONIA Steroids were started 07/06/17 and tapered off by 07/30/17 ID treating yeast in pleural fluid with caspofungin QUESTION OF PULMONARY EMBOLI CTA yesterday with no evidence of pulmonary embolus Heparin drip was stopped Lower extremity duplex was negative for DVT Continue DVT prophylaxis with heparin 5000 units subcutaneous every 8 hours DVT PROPHYLAXIS Continue heparin 5000 units subcutaneously every eight hours Need to encourage out of bed to chair Need to encourage physical therapy Thank you for including us in the care of this patient. Please refer to Dr. Vines's addendum for further recommendations. I was present with Dieter Brown PA-C during the history and exam. I discussed the case with him and agree with the findings and plan as documented in the note. Any exceptions or clarifications are listed here: Patient with hypoxic respiratory failure, POD# 13 s/p colon resection, POD#4 s/ p right thoracentesis, h/o renal cell CA, ESRD on HD Remains profoundly hypoxic, but slightly better today S/p HD yesterday S/p thoracentesis on 07/30/17, drained 1350 ml of exudative bloody effusion. Pathology negative, growing yeast Has extensive, diffuse parenchymal disease, which may represent infectious etiology vs inflammatory, vs fluid overload Nocturnal BIPAP On a steroid taper for possible [employer] by radiology On Caspofungin OOB to chair DVT prophylaxis with SC heparin Charlie Vines MD Data Medications: Current Inpatient Medications Medications (Trade) Dose Ordered Sig/Edward Route Start Time Stop Time Status Last Admin Dose Admin Lactobacillus Acidophilus (Floranex Tab) 2 tab TID PO 07/06/17 09:00 08/05/17 08:59 08/03/17 13:25 2 TAB Lisinopril (Zestril Tab) 40 mg DAILY PO 07/06/17 09:00 08/05/17 08:59 08/03/17 08:22 40 MG Miscellaneous Information (Check Fentanyl Patch Placement) 1 ea QS N/A 07/06/17 08:00 08/05/17 07:59 08/03/17 16:10 1 EA Glucose (Glucose 40% Gel) 15-30 GRAMS 15 GRAMS... UD PRN PO 07/06/17 04:15 08/05/17 04:14 Glucose (Glucose Chew Tab) 4-8 Tablets 4 Tabl... UD PRN PO 07/06/17 04:15 08/05/17 04:14 Dextrose (Dextrose 50% 50ML Syringe) 25-50ML OF 50% DW IV FOR... UD PRN IV 07/06/17 04:15 08/05/17 04:14 08/02/17 14:44 50 ML Glucagon (Glucagon Inj) 1 mg UD PRN SQ 07/06/17 04:15 08/05/17 04:14 Heparin Sodium (Porcine) (Heparin 100 Unit/ml 5ml Flush) 5 ml PRN PRN IV 07/07/17 02:45 08/06/17 02:44 Future hold 08/02/17 09:24 5 ML Ondansetron HCl (Zofran Inj) 4 mg Q4H PRN IV 07/11/17 03:00 08/10/17 02:59 07/17/17 21:50 4 MG Prochlorperazine Edisylate 5 mg/ Syringe 5 ml @ 5 mls/min Q4H PRN IV 07/11/17 14:00 08/10/17 13:59 Lactulose (Chronulac Syrup) 30 gm Q4H PRN PO 07/11/17 16:45 08/10/17 16:44 Miscellaneous (Fentanyl Patch Remove & Waste) 1 ea Q3D@0859 N/A 07/22/17 08:59 08/21/17 08:58 08/03/17 08:32 1 EA Fentanyl (Duragesic Patch) 25 mcg Q3D@0900 TD 07/22/17 09:00 08/05/17 08:59 08/03/17 08:32 25 MCG Ergocalciferol (Vitamin D Cap) 50,000 interunit Q7D@0900 PO 07/20/17 09:00 08/19/17 08:59 08/03/17 08:22 50,000 INTERUNIT Hydralazine HCl (HydrALAZINE INJ) 5 mg Q4 PRN IV. 07/21/17 17:15 08/20/17 17:14 Future Hold 07/25/17 23:45 5 MG Hydralazine HCl (HydrALAZINE INJ) 5 mg TID IV. 07/21/17 21:00 08/20/17 20:59 Future Hold 07/30/17 08:33 5 MG Fentanyl Citrate (Fentanyl Inj) Fentanyl 25-50 mcg... Q4H PRN IV 07/21/17 20:45 08/04/17 20:44 07/24/17 05:47 50 MCG Miscellaneous Information (Consult Glycemic Management Pharmacy) 1 ea UD PRN N/A 07/23/17 13:14 08/22/17 13:13 Morphine Sulfate (MoRPHine SULFATE INJ) 2 mg Q3RWA PRN IV 07/24/17 11:30 08/07/17 11:29 08/02/17 12:48 2 MG Caspofungin 50 mg/ Sodium Chloride 260 ml @ 250 mls/hr Q24H IV 07/28/17 12:00 08/06/17 11:59 08/03/17 12:10 250 MLS/HR Insulin Aspart (novoLOG ASPART) SLIDING SCALE G... ACHS SC 07/27/17 11:30 08/26/17 11:29 08/03/17 08:36 3 UNITS Methadone HCl (Dolophine Tab) 20 mg BID PO 07/28/17 21:00 08/08/17 08:59 08/03/17 08:23 20 MG Ipratropium [place] (Atrovent 0.02% 0.5MG/2.5ML Neb) 0.5 mg Q6R INH 07/29/17 09:00 08/28/17 08:59 08/03/17 14:12 0.5 MG Levalbuterol (Xopenex 0.63 Mg/ 3 Ml Neb) 0.63 mg Q6R INH 07/29/17 09:00 08/28/17 08:59 08/03/17 14:12 0.63 MG Metoprolol Tartrate (Lopressor Tab) 100 mg BID PO 07/29/17 21:00 08/28/17 20:59 08/03/17 08:23 100 MG Amlodipine Besylate (Norvasc Tab) 10 mg QAM PO 07/30/17 09:00 08/29/17 08:59 08/03/17 08:23 10 MG Diphenhydramine HCl (Benadryl Inj) 50 mg 4XDQ4H PRN IV 07/30/17 13:30 08/29/17 13:29 Heparin Sodium (Porcine) (Heparin Sq 5000 Unit/0.5ml) 5,000 unit Q8 SQ 07/30/17 22:00 08/29/17 21:59 08/03/17 13:27 5,000 UNIT Prednisone (PredniSONE TAB) 20 mg BIDM PO 07/31/17 07:30 08/30/17 07:29 08/03/17 16:09 20 MG Furosemide (Lasix Tab) 40 mg QAM PO 08/01/17 09:00 08/31/17 08:59 08/03/17 08:23 40 MG Insulin Glargine (Lantus Solostar Pen) see protocol text HS SC 08/01/17 21:00 08/31/17 20:59 Future Hold Calcitriol (Rocaltrol Cap) 0.25 mcg Q2D@0900 PO 08/02/17 09:00 09/01/17 08:59 08/02/17 08:24 0.25 MCG Calcium Carbonate (Tums Chew Tab) 500 mg TID PO 08/02/17 09:00 09/01/17 08:59 08/03/17 13:25 500 MG Enteral Nutritional Formula (Boost Glucose Control) 1 can BID@1000,2100 PO 08/01/17 21:00 08/31/17 20:59 08/02/17 20:36 1 CAN Insulin Aspart (novoLOG ASPART) SLIDING SCALE G... 0000,0400 MI 08/04/17 00:00 09/03/17 00:00 I & O: 24-Hour Column 08/04/17 08:00 Intake Total 470 ml Balance 470 ml Vital Signs: Date Time Temp Pulse Resp B/P (MAP) Pulse Ox O2 Delivery O2 Flow Rate FiO2 08/03/17 15:31 36.5 88 18 150/70 (96) 94 BiPAP 08/03/17 14:16 94 96 80 08/03/17 14:12 94 26 96 BiPAP/CPAP 80 08/03/17 12:07 37.0 87 18 98/78 (85) 95 08/03/17 12:00 BiPAP 80 08/03/17 08:40 36.9 88 18 101/90 (94) 95 08/03/17 08:00 BiPAP 80 08/03/17 07:18 91 97 80 08/03/17 07:14 91 18 97 BiPAP/CPAP 80 08/03/17 04:00 BiPAP 80 08/03/17 03:41 37.1 97 18 144/69 (94) 97 08/03/17 01:43 93 18 95 BiPAP/CPAP 80 08/03/17 00:59 37.5 106 16 161/73 (102) 90 Room Air 08/03/17 00:00 BiPAP 80 08/02/17 22:35 108 82 5.0 08/02/17 20:09 103 20 159/70 (99) 08/02/17 20:00 BiPAP 80 08/02/17 18:45 123 112/60 08/02/17 18:45 36.4 114 152/65 (94) 08/02/17 18:30 124 106/72 08/02/17 18:15 76 123/102 08/02/17 18:00 118 124/69 08/02/17 17:45 116 90/58 08/02/17 17:30 105 138/62 08/02/17 17:15 110 123/66 08/02/17 17:00 108 125/56 08/02/17 16:45 104 117/65 08/02/17 16:30 104 129/67 Laboratory Results: Last 24 Hours Test 08/02/17 16:30 08/02/17 20:16 08/02/17 20:53 08/02/17 23:55 Bedside Glucose 84 mg/dl 30 mg/dl 170 mg/dl 61 mg/dl Test 08/03/17 00:02 08/03/17 00:31 08/03/17 00:57 08/03/17 03:02 Bedside Glucose 62 mg/dl 67 mg/dl 93 mg/dl 108 mg/dl Test 08/03/17 05:24 08/03/17 06:25 08/03/17 10:09 08/03/17 11:32 White Blood Count 12.76 K/uL Red Blood Count 2.47 M/uL Hemoglobin 7.4 g/dL Hematocrit 22.4 % Mean Corpuscular Volume 90.7 fL Mean Corpuscular Hemoglobin 30.0 pg Mean Corpuscular Hemoglobin Concent 33.0 g/dl RDW Standard Deviation 65.3 fL RDW Coefficient of Variation 20.4 % Platelet Count 111 K/uL Mean Platelet Volume 11.7 fL Nucleated RBC Absolute Count (auto) 0.32 K/uL Nucleated Red Blood Cells % 2.5 % Sodium Level 135 mmol/L Potassium Level 4.4 mmol/L Chloride Level 98 mmol/L Carbon Dioxide Level 31 mmol/L Anion Gap 6.0 mmol/L Blood Urea Nitrogen 55 mg/dl Creatinine 2.79 mg/dl Est Creatinine Clear Calc Drug Dose 28.0 ml/min Estimated GFR () 26.7 Estimated GFR (Non- 23.1 BUN/Creatinine Ratio 19.8 Random Glucose 138 mg/dl Calcium Level 6.8 mg/dl Bedside Glucose 168 mg/dl 173 mg/dl 138 mg/dl Test 08/03/17 13:03 Hemoglobin 7.7 g/dL Hematocrit 23.7 %
[2017-08-04] VITALS (13 sets, daily range): BP systolic 129–177; BP diastolic 66–84; PULSE 85–105; TEMP 36.4–37; O2SAT 89–98; Ht 177.8 cm; Wt 75.5 kg
[2017-08-04] MEDS: MoRPHine SULFATE 2 MG/ML CARP IV PRN ×2 (00:33→18:48)
[2017-08-04] MEDS: CHECK FENTANYL PATCH PLACEMENT SCH ×4 (00:33→23:12)
[2017-08-04] MEDS: INSULIN ASPART 100 UNITS/ML 3 ML PEN SC SCH ×6 (00:36→20:39)
[2017-08-04] MEDS: LEVALBUTEROL 0.63MG/3 ML NEB INH SCH ×4 (02:06→19:17)
[2017-08-04] MEDS: IPRATROPIUM BROMIDE NEB SOLN 0.02% 2.5 ML VIAL INH SCH ×4 (02:06→19:17)
[2017-08-04] MEDS: HEPARIN SOD 5000 UNIT/0.5 ML CARP SQ SCH ×3 (06:31→20:42)
--- NOTE | 2017-08-04 08:15 | Nephrology Progress Note ---
Nephrology Progress Note Date of Service Aug 04, 2017. Chief Complaint Follow-up for end-stage renal disease on hemodialysis. Roland Causey was seen and examined in his room this morning. Feels tired but otherwise denies any episode of fever, chills or significant shortness of breath. Blood pressure relatively stable. Review of Systems A complete review of systems was performed. Pertinent positives are noted above. All other systems are negative. Vital Signs Last 8 Hrs Date Time Temp Pulse Resp B/P (MAP) Pulse Ox O2 Delivery O2 Flow Rate FiO2 08/04/17 08:01 37.0 90 20 129/66 (87) 95 08/04/17 07:00 85 18 93 BiPAP/CPAP 50 08/04/17 05:32 90 94 50 08/04/17 04:00 BiPAP 50 08/04/17 03:46 36.5 99 18 131/69 (89) 95 BiPAP 08/04/17 02:09 90 18 98 BiPAP/CPAP 60 08/04/17 02:08 90 98 60 Last Recorded Weight Weight (Kilograms): 82.900 Physical Exam GENERAL: middle aged male, AAA x 3, pleasant, ill-appearing, in mild distress. NECK: Supple, no JVD. RESPIRATORY: crackles bilaterally towards bases CARDIOVASCULAR: S1, S2 normal, rate rhythm regular. EXTREMITY: B/L upper and lower extremity edema NEURO: speech fluent. PSYCHIATRY: Normal mood and judgment Family History Cervical cancer Diabetes mellitus Heart disease Hypertension Myocardial infarction Pancreatic cancer Prostate cancer Negative for CKD/ESRD Social History Smokeless Tobacco Use: No Alcohol Use: none Drug Use: none Marital Status: single Housing Status: lives alone Occupation: disabled Single, retired. Formerly worked for [employer]. Never a smoker. Laboratory Results Past 24 Hours 08/03/17 13:03 Test 08/03/17 10:09 08/03/17 11:32 08/03/17 16:39 08/03/17 20:24 Bedside Glucose 173 mg/dl (70-99) 138 mg/dl (70-99) 216 mg/dl (70-99) 268 mg/dl (70-99) Test 08/04/17 00:06 08/04/17 03:33 08/04/17 06:44 08/04/17 07:59 Bedside Glucose 261 mg/dl (70-99) 302 mg/dl (70-99) 277 mg/dl (70-99) Allergies Coded Allergies: Iodinated Diagnostic Agents (Verified Allergy, Unknown, oil based, severe headaches, 06/20/17) EVENT OCCURED IN 1971, PT STATES HE HAS HAD 3 DIFFERENT WATER BASED IVP DYES WITH NO ISSUE Medications Current Inpatient Medications Medications (Trade) Dose Ordered Sig/Edward Route Start Time Stop Time Status Last Admin Dose Admin Lactobacillus Acidophilus (Floranex Tab) 2 tab TID PO 07/06/17 09:00 08/05/17 08:59 08/03/17 20:53 2 TAB Lisinopril (Zestril Tab) 40 mg DAILY PO 07/06/17 09:00 08/05/17 08:59 08/03/17 08:22 40 MG Miscellaneous Information (Check Fentanyl Patch Placement) 1 ea QS N/A 07/06/17 08:00 08/05/17 07:59 08/04/17 00:33 1 EA Glucose (Glucose 40% Gel) 15-30 GRAMS 15 GRAMS... UD PRN PO 07/06/17 04:15 08/05/17 04:14 Glucose (Glucose Chew Tab) 4-8 Tablets 4 Tabl... UD PRN PO 07/06/17 04:15 08/05/17 04:14 Dextrose (Dextrose 50% 50ML Syringe) 25-50ML OF 50% DW IV FOR... UD PRN IV 07/06/17 04:15 08/05/17 04:14 08/02/17 14:44 50 ML Glucagon (Glucagon Inj) 1 mg UD PRN SQ 07/06/17 04:15 08/05/17 04:14 Heparin Sodium (Porcine) (Heparin 100 Unit/ml 5ml Flush) 5 ml PRN PRN IV 07/07/17 02:45 08/06/17 02:44 Future hold 08/02/17 09:24 5 ML Ondansetron HCl (Zofran Inj) 4 mg Q4H PRN IV 07/11/17 03:00 08/10/17 02:59 07/17/17 21:50 4 MG Prochlorperazine Edisylate 5 mg/ Syringe 5 ml @ 5 mls/min Q4H PRN IV 07/11/17 14:00 08/10/17 13:59 Lactulose (Chronulac Syrup) 30 gm Q4H PRN PO 07/11/17 16:45 08/10/17 16:44 Miscellaneous (Fentanyl Patch Remove & Waste) 1 ea Q3D@0859 N/A 07/22/17 08:59 08/21/17 08:58 08/03/17 08:32 1 EA Fentanyl (Duragesic Patch) 25 mcg Q3D@0900 TD 07/22/17 09:00 08/05/17 08:59 08/03/17 08:32 25 MCG Ergocalciferol (Vitamin D Cap) 50,000 interunit Q7D@0900 PO 07/20/17 09:00 08/19/17 08:59 08/03/17 08:22 50,000 INTERUNIT Hydralazine HCl (HydrALAZINE INJ) 5 mg Q4 PRN IV. 07/21/17 17:15 08/20/17 17:14 Future Hold 07/25/17 23:45 5 MG Hydralazine HCl (HydrALAZINE INJ) 5 mg TID IV. 07/21/17 21:00 08/20/17 20:59 Future Hold 07/30/17 08:33 5 MG Fentanyl Citrate (Fentanyl Inj) Fentanyl 25-50 mcg... Q4H PRN IV 07/21/17 20:45 08/04/17 20:44 07/24/17 05:47 50 MCG Miscellaneous Information (Consult Glycemic Management Pharmacy) 1 ea UD PRN N/A 07/23/17 13:14 08/22/17 13:13 Morphine Sulfate (MoRPHine SULFATE INJ) 2 mg Q3RWA PRN IV 07/24/17 11:30 08/07/17 11:29 08/04/17 00:33 2 MG Caspofungin 50 mg/ Sodium Chloride 260 ml @ 250 mls/hr Q24H IV 07/28/17 12:00 08/06/17 11:59 08/03/17 12:10 250 MLS/HR Insulin Aspart (novoLOG ASPART) SLIDING SCALE G... ACHS SC 07/27/17 11:30 08/26/17 11:29 08/03/17 21:14 6 UNITS Methadone HCl (Dolophine Tab) 20 mg BID PO 07/28/17 21:00 08/08/17 08:59 1/11/18 21:15 20 MG Ipratropium [place] (Atrovent 0.02% 0.5MG/2.5ML Neb) 0.5 mg Q6R INH 07/29/17 09:00 08/28/17 08:59 08/04/17 07:00 0.5 MG Levalbuterol (Xopenex 0.63 Mg/ 3 Ml Neb) 0.63 mg Q6R INH 07/29/17 09:00 08/28/17 08:59 08/04/17 07:00 0.63 MG Metoprolol Tartrate (Lopressor Tab) 100 mg BID PO 07/29/17 21:00 08/28/17 20:59 08/03/17 20:54 100 MG Amlodipine Besylate (Norvasc Tab) 10 mg QAM PO 07/30/17 09:00 08/29/17 08:59 08/03/17 08:23 10 MG Diphenhydramine HCl (Benadryl Inj) 50 mg 4XDQ4H PRN IV 07/30/17 13:30 08/29/17 13:29 Heparin Sodium (Porcine) (Heparin Sq 5000 Unit/0.5ml) 5,000 unit Q8 SQ 07/30/17 22:00 08/29/17 21:59 08/04/17 06:31 5,000 UNIT Prednisone (PredniSONE TAB) 20 mg BIDM PO 07/31/17 07:30 08/30/17 07:29 08/03/17 16:09 20 MG Furosemide (Lasix Tab) 40 mg QAM PO 08/01/17 09:00 08/31/17 08:59 08/03/17 08:23 40 MG Calcitriol (Rocaltrol Cap) 0.25 mcg Q2D@0900 PO 08/02/17 09:00 09/01/17 08:59 08/02/17 08:24 0.25 MCG Calcium Carbonate (Tums Chew Tab) 500 mg TID PO 08/02/17 09:00 09/01/17 08:59 08/03/17 20:54 500 MG Enteral Nutritional Formula (Boost Glucose Control) 1 can BID@1000,2100 PO 08/01/17 21:00 08/31/17 20:59 1/11/18 19:56 1 CAN Insulin Aspart (novoLOG ASPART) SLIDING SCALE G... 0000,0400 AR 08/04/17 00:00 09/03/17 00:00 08/04/17 04:16 6 UNITS Impression (1) Cellulitis of left hand (2) ESRD (end stage renal disease) on dialysis (3) Renal cell carcinoma (4) Anemia (5) Diabetes type 2, controlled Mr. Christy has ESRD and metastatic RCC. He underwent left nephrectomy in 2015. Patient did not tolerate Sutent due to high grade proteinuria; Opdivo caused arthralgia, colitis and possible pneumonitis. He was most recently treated w/ Cabometyx. This was complicated by abdominal wall hematoma a intestinal perforation. 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 Mr. Christy was admitted with persistent soft tissue infection of the left hand. Patient tested positive for C. Difficile colitis. He has had a prolonged and complicated hospital course. On 07/21 Mr. Christy was diagnosed with intestinal perforation and required emergency laparotomy. 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 Partial colectomy w/ reanastomosis was completed Mr. Christy's dialysis was complicated by prolonged bleeding from the AVF following treatment. 07/23 duplex study demonstrated high grade venous outflow stenosis. Fistulogram with coil embolization completed 07/25/16. Mr. Christy developed acute hypoxic respiratory failure and respiratory distress requiring NIPPV. Heparin gtt started for suspected PE. Recommendations -- hemodialysis this morning with 3 K bath, UF as tolerated, aim for 3 liters. -- Protect LUE AVF -- Epogen with dialysis -- Treatment for renal cell carcinoma on hold due to acute comorbid conditions -- Calcitriol and CaCO3 on hold due to recent abdominal surgery, will resume once patient on regular oral diet -- continue physical therapy a patient waiting for rehab discharge.
[2017-08-04 08:17] LABS: HEMATOCRIT 23.4 % (42-52); HEMOGLOBIN 7.7 g/dL (14.0-18.0); MEAN CELL VOLUME 91.4 fL (80-100); MEAN CORPUSCULAR HEMOGLOBIN 30.1 pg (25-34); MEAN CORPUSCULAR HGB CONC 32.9 g/dl (32-36); MEAN PLATELET VOLUME 12.3 fL (7.4-10.4); NUCLEATED RED BLOOD CELL ABS 0.12 K/uL (0-0); PLATELET COUNT 132 K/uL (130-400); RED CELL DISTRIBUTION WIDTH CV 20.4 % (11.5-14.5); RED CELL DISTRIBUTION WIDTH SD 65.1 fL (36.4-46.3); WHITE BLOOD COUNT 15.61 K/uL (4.8-10.8)
[2017-08-04] MEDS: AMLODIPINE BESYLATE 5 MG TAB PO SCH (08:24)
[2017-08-04] MEDS: CALCITRIOL 0.25 MCG CAP PO SCH (08:24)
[2017-08-04] MEDS: LISINOPRIL 40 MG TAB PO SCH (08:24)
[2017-08-04] MEDS: METOPROLOL TARTRATE 100 MG TAB PO SCH ×2 (08:24→20:29)
[2017-08-04] MEDS: CALCIUM CARBONATE 500 MG CHEWABLE PO SCH ×3 (08:24→20:26)
[2017-08-04] MEDS: METHADONE HCL 10 MG TAB PO SCH ×2 (08:25→20:28)
[2017-08-04] MEDS: FUROSEMIDE 40 MG TAB PO SCH (08:25)
[2017-08-04] MEDS: LACTOBACILLUS ACIDOPHILUS (FLORANEX) TAB PO SCH ×3 (08:25→20:26)
[2017-08-04 08:55] LABS: CALCIUM 7.6 mg/dl (8.5-10.1); CREATININE 3.69 mg/dl (0.60-1.40); POTASSIUM 5.1 mmol/L (3.5-5.1)
[2017-08-04] MEDS ORDERED: INSULIN GLARGINE SOLOSTAR 100 UNITS/ML 3 ML PEN SC SCH (09:00)
[2017-08-04] MEDS: BOOST GLUCOSE CONTROL PO SCH ×2 (09:57→20:22)
--- NOTE | 2017-08-04 10:52 | Pharmacy Progress Note ---
Pharmacy Glycemic Short Note 2 Date of Service Aug 04, 2017. ASSESSMENT: * See previous progress notes for more background info, in short: * Pt receiving SQ basal bolus insulin regimen for hyperglycemia secondary to baseline DM (outpatient regimen on hold),stress/infection, recent surgery, steroids * Steroids tapered to Prednisone 20mg PO BIDM since 07/31/18 * Patient has been experiencing severe hypoglycemia recurrently on 07/31, 08/01, & . * [facility] discussed lows and insulin regimen with patient on 08/03/17 * He is requesting checks in between meals and two times through the night - nursing on board for in between meals and I will add the checks through the night on the SEP * His regimen was likely too basal heavy on 07/31 and 08/01 then he received a much reduced dose 08/02 and its been downhill since. His case is complicated by HD, changes in appetite, and chemo that can induce hyperglycemia. * Over the past 24 hrs, all basal insulin has been on hold. Pt now with rebound hyperglycemia. * Changes needed to insulin regimen: * Resume basal insulin. Pt received 18 units of correctional insulin yesterday without improvement. Will start with Lantus 16 units to load and then reduce to 10 units day. * Continued "loosened" CF/CR for conservative management of hyperglycemia PLAN FOR INPATIENT GLYCEMIC CONTROL: * Basal insulin * Resume Lantus, 16 units SQ x 1 dose today and then Lantus 10 units SQ daily * Bolus insulin * NovoLog per scale ACHS + in between meal checks per patient request and 00,04 * Goal Range: Low 120 mg/dL - High 160 mg/dL * Correction Factor: 25 mg/dL/unit * Nutritional / Prandial insulin per carb ratio of 1 unit per 10 grams CHO consumed
[2017-08-04] MEDS: CASPOFUNGIN INJ 50 MG in SODIUM CHLORIDE 0.9% 250ML 250 ML IV SCH (12:10)
[2017-08-04] MEDS: ONDANSETRON INJ 2 MG/ML 2 ML VIAL IV PRN (15:58)
--- NOTE | 2017-08-04 16:27 | Progress Note ---
Subjective Date of Service: Aug 04, 2017. Subjective Pt evaluation today including: conversation w/ patient, conversation w/ family , physical exam, lab review, conversation w/ is consultant, review of inpatient medication list Pain: no pain PO Intake: improved today Voiding: no voiding problems patient breathing slightly better today, upright in bed, off of BIPAP since 1000 no cough reviewed labs, Hb 7.7, Cr elevated but due for dialysis appreciate pulmonology and nephrology input Problem List Medical Problems: (1) Acute dyspnea Status: Acute (2) Chronic kidney disease Status: Acute (3) Failure of outpatient treatment Status: Acute (4) Left arm cellulitis Status: Acute (5) Renal cell carcinoma Status: Acute Review of Systems Constitutional: + weakness, + fatigue Respiratory: + shortness of breath, + dyspnea on exertion Cardiac: + edema Neurologic: + weakness Psychiatric: + depression symptoms All Other Systems: Reviewed and Negative Medications Current Inpatient Medications Medications (Trade) Dose Ordered Sig/Edward Route Start Time Stop Time Status Last Admin Dose Admin Lactobacillus Acidophilus (Floranex Tab) 2 tab TID PO 07/06/17 09:00 08/05/17 08:59 08/04/17 13:43 2 TAB Lisinopril (Zestril Tab) 40 mg DAILY PO 07/06/17 09:00 08/05/17 08:59 08/04/17 08:24 40 MG Miscellaneous Information (Check Fentanyl Patch Placement) 1 ea QS N/A 07/06/17 08:00 08/05/17 07:59 08/04/17 08:18 1 EA Glucose (Glucose 40% Gel) 15-30 GRAMS 15 GRAMS... UD PRN PO 07/06/17 04:15 08/05/17 04:14 Glucose (Glucose Chew Tab) 4-8 Tablets 4 Tabl... UD PRN PO 07/06/17 04:15 08/05/17 04:14 Dextrose (Dextrose 50% 50ML Syringe) 25-50ML OF 50% DW IV FOR... UD PRN IV 07/06/17 04:15 08/05/17 04:14 08/02/17 14:44 50 ML Glucagon (Glucagon Inj) 1 mg UD PRN SQ 07/06/17 04:15 08/05/17 04:14 Heparin Sodium (Porcine) (Heparin 100 Unit/ml 5ml Flush) 5 ml PRN PRN IV 07/07/17 02:45 08/06/17 02:44 Future hold 08/02/17 09:24 5 ML Ondansetron HCl (Zofran Inj) 4 mg Q4H PRN IV 07/11/17 03:00 08/10/17 02:59 08/04/17 15:58 4 MG Prochlorperazine Edisylate 5 mg/ Syringe 5 ml @ 5 mls/min Q4H PRN IV 07/11/17 14:00 08/10/17 13:59 Lactulose (Chronulac Syrup) 30 gm Q4H PRN PO 07/11/17 16:45 08/10/17 16:44 Miscellaneous (Fentanyl Patch Remove & Waste) 1 ea Q3D@0859 N/A 07/22/17 08:59 08/21/17 08:58 08/03/17 08:32 1 EA Fentanyl (Duragesic Patch) 25 mcg Q3D@0900 TD 07/22/17 09:00 08/05/17 08:59 08/03/17 08:32 25 MCG Ergocalciferol (Vitamin D Cap) 50,000 interunit Q7D@0900 PO 07/20/17 09:00 08/19/17 08:59 08/03/17 08:22 50,000 INTERUNIT Hydralazine HCl (HydrALAZINE INJ) 5 mg Q4 PRN IV. 07/21/17 17:15 08/20/17 17:14 Future Hold 07/25/17 23:45 5 MG Hydralazine HCl (HydrALAZINE INJ) 5 mg TID IV. 07/21/17 21:00 08/20/17 20:59 Future Hold 07/30/17 08:33 5 MG Fentanyl Citrate (Fentanyl Inj) Fentanyl 25-50 mcg... Q4H PRN IV 07/21/17 20:45 08/04/17 20:44 07/24/17 05:47 50 MCG Miscellaneous Information (Consult Glycemic Management Pharmacy) 1 ea UD PRN N/A 07/23/17 13:14 08/22/17 13:13 Morphine Sulfate (MoRPHine SULFATE INJ) 2 mg Q3RWA PRN IV 07/24/17 11:30 08/07/17 11:29 08/04/17 00:33 2 MG Caspofungin 50 mg/ Sodium Chloride 260 ml @ 250 mls/hr Q24H IV 07/28/17 12:00 08/06/17 11:59 08/04/17 12:10 250 MLS/HR Insulin Aspart (novoLOG ASPART) SLIDING SCALE G... ACHS SC 07/27/17 11:30 08/26/17 11:29 08/04/17 12:17 10 UNITS Methadone HCl (Dolophine Tab) 20 mg BID PO 07/28/17 21:00 08/08/17 08:59 08/04/17 08:25 20 MG Ipratropium [place] (Atrovent 0.02% 0.5MG/2.5ML Neb) 0.5 mg Q6R INH 07/29/17 09:00 08/28/17 08:59 08/04/17 14:08 0.5 MG Levalbuterol (Xopenex 0.63 Mg/ 3 Ml Neb) 0.63 mg Q6R INH 07/29/17 09:00 08/28/17 08:59 08/04/17 14:08 0.63 MG Metoprolol Tartrate (Lopressor Tab) 100 mg BID PO 07/29/17 21:00 08/28/17 20:59 08/04/17 08:24 100 MG Amlodipine Besylate (Norvasc Tab) 10 mg QAM PO 07/30/17 09:00 08/29/17 08:59 08/04/17 08:24 10 MG Diphenhydramine HCl (Benadryl Inj) 50 mg 4XDQ4H PRN IV 07/30/17 13:30 08/29/17 13:29 Heparin Sodium (Porcine) (Heparin Sq 5000 Unit/0.5ml) 5,000 unit Q8 SQ 07/30/17 22:00 08/29/17 21:59 08/04/17 13:48 5,000 UNIT Prednisone (PredniSONE TAB) 20 mg BIDM PO 07/31/17 07:30 08/30/17 07:29 08/04/17 08:25 20 MG Furosemide (Lasix Tab) 40 mg QAM PO 08/01/17 09:00 08/31/17 08:59 08/04/17 08:25 40 MG Calcitriol (Rocaltrol Cap) 0.25 mcg Q2D@0900 PO 08/02/17 09:00 09/01/17 08:59 08/04/17 08:24 0.25 MCG Calcium Carbonate (Tums Chew Tab) 500 mg TID PO 08/02/17 09:00 09/01/17 08:59 08/04/17 13:43 500 MG Enteral Nutritional Formula (Boost Glucose Control) 1 can BID@1000,2100 PO 08/01/17 21:00 08/31/17 20:59 08/03/17 19:56 1 CAN Insulin Aspart (novoLOG ASPART) SLIDING SCALE G... 0000,0400 SC 08/04/17 00:00 09/03/17 00:00 08/04/17 04:16 6 UNITS Insulin Glargine (Lantus Solostar Pen) 10 units DAILY SC 08/05/17 09:00 09/04/17 08:59 Objective Vital Signs Date Time Temp Pulse Resp B/P (MAP) Pulse Ox O2 Delivery O2 Flow Rate FiO2 08/04/17 14:08 94 18 94 Mask 15.0 08/04/17 12:00 BiPAP 80 08/04/17 11:55 36.8 86 18 142/73 (96) 95 08/04/17 08:01 37.0 90 20 129/66 (87) 95 08/04/17 08:00 BiPAP 80 08/04/17 07:00 85 18 93 BiPAP/CPAP 50 08/04/17 05:32 90 94 50 08/04/17 04:00 BiPAP 50 08/04/17 03:46 36.5 99 18 131/69 (89) 95 BiPAP 08/04/17 02:09 90 18 98 BiPAP/CPAP 60 08/04/17 02:08 90 98 60 08/04/17 00:01 BiPAP 50 08/03/17 23:30 36.8 100 18 152/68 (96) 98 BiPAP 08/03/17 21:40 103 96 60 08/03/17 20:23 36.7 102 20 157/69 (98) 90 Oxymask 15.0 08/03/17 20:00 93 Oxymask 15.0 08/03/17 19:32 102 20 91 Mask 15.0 Physical Exam General Appearance: WD/WN, no apparent distress Eyes: normal inspection, EOMI, sclerae normal ENT: normal ENT inspection, hearing grossly normal, pharynx normal Neck: supple, no adenopathy, no JVD, trachea midline Respiratory/Chest: chest non-tender, no respiratory distress, no accessory muscle use, + decreased breath sounds Cardiovascular: regular rate, rhythm, no gallop, no JVD, no murmur Abdomen: normal bowel sounds, non tender, soft, no organomegaly Extremities: normal range of motion, non-tender, normal inspection, no calf tenderness, pelvis stable, + pedal edema (pitting, bilaterally, to knees) Neurologic/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, alert, normal mood/affect, oriented x 3, + motor weakness (generalized) Laboratory Results Last 24 Hours Test 08/03/17 16:39 08/03/17 20:24 08/04/17 00:06 08/04/17 03:33 Bedside Glucose 216 mg/dl 268 mg/dl 261 mg/dl 302 mg/dl Test 08/04/17 06:44 08/04/17 07:59 08/04/17 11:28 Bedside Glucose 277 mg/dl 265 mg/dl White Blood Count 15.61 K/uL Red Blood Count 2.56 M/uL Hemoglobin 7.7 g/dL Hematocrit 23.4 % Mean Corpuscular Volume 91.4 fL Mean Corpuscular Hemoglobin 30.1 pg Mean Corpuscular Hemoglobin Concent 32.9 g/dl RDW Standard Deviation 65.1 fL RDW Coefficient of Variation 20.4 % Platelet Count 132 K/uL Mean Platelet Volume 12.3 fL Nucleated RBC Absolute Count (auto) 0.12 K/uL Nucleated Red Blood Cells % 0.8 % Sodium Level 135 mmol/L Potassium Level 5.1 mmol/L Chloride Level 97 mmol/L Carbon Dioxide Level 28 mmol/L Anion Gap 11.0 mmol/L Blood Urea Nitrogen 82 mg/dl Creatinine 3.69 mg/dl Est Creatinine Clear Calc Drug Dose 21.2 ml/min Estimated GFR () 19.1 Estimated GFR (Non- 16.4 BUN/Creatinine Ratio 22.2 Random Glucose 226 mg/dl Calcium Level 7.6 mg/dl Assessment and Plan Mr. Christy is a 61 y/o M with PMH of ESRD on HD, RCC, DMII. Admitted for L hand cellulitis having failed outpatient management. Abdominal pain, found to have incidental rectus sheath hematoma, C.diff positive colitis and subsequent bowel perforation on 07/21, now s/p colectomy, anemia, and bilateral pneumonia on imaging. C. diff colitis, perforated jejunal bowel (suspected to result from chemo regimen) s/p colectomy, rectus sheath hematoma: - Surgical management as per surgery- POD #12: -- TPN completed on 07/29/17 - Currently on mechanical soft diet, tolerating better - Underlying severe protein malnutrition, albumin 1.3 on 07/30, will repeat tomorrow- tolerating Boost - C.Diff + 07/12/17: Completed 9 days of PO Vancomycin - C. glabratum growth- ID recommending Caspofungin x10 days- last day of treatment on 08/06/17 - Pain controlled w/ Methadone and Morphine IV PRN Metastatic RCC s/p L nephrectomy, chronic pain: - Oncology following- holding treatment at this time due to acute issues- f/u outpatient - Palliative care following- appreciate recommendations for pain control- Methadone, Fentanyl, and Morphine PRN ESRD HD, secondary to RCC/ s/p left nephrectomy- HD on MWF: - Nephrology following - 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 on 07/23 - Vascular surgery consulted- s/p AVR repair on 07/25/17 - Hypocalcemia w/ vitamin D level of 9.4: Ergocalciferol 50,000 q7d indefinitely + daily D3 2000 when patient resumes oral intake- recheck levels in 12 weeks ESRD bone mineral disease: Resume Calcitriol and CaCO3 Left hand cellulitis- RESOLVED: - Initial MRI did not determine any osteomyelitis - ID consulted: treated initially with Ertapenem/Daptomycin, then transitioned to Cefepime- treated 07/22- 07/30 Acute hypoxia respiratory failure, ?secondary to pulmonary edema vs cryptogenic organizing pneumonia/drug related pneumonitis: - Continue O2 supplementation to maintain SaO2 >92%, wean as tolerated - slight improvement today, upright most of the day, not requiring BiPAP all day - Started on heparin drip on 07/26 for presumed PE- CTA 07/30/17 negative for PE, thus heparin drip stopped - Large R pleural effusion s/p thoracentesis completed 07/30/17- pleural pathology w/ no malignancy, pleural cultures growing yeast- on IV Caspofungin - IV Solu-Medrol- transitioned to Prednisone 20 mg BID on 07/31 - DuoNebs QID and PRN - Pulmonary following -- Think poor respiratory status is secondary to inactivity- encouraged incentive spirometer, OOB in chair throughout day, working w/ PT DMII: - BSG ACHS and ISS - Pharmacy consulted for glycemic management- on Lantus sliding scale Acute anemia- transfused a total of 6 u PRBCs: - Nephrology following- Epogen with dialysis - H&H- 7.7 again today- continue to follow and transfuse PRN for hgb < 7.0 or symptomatic HTN, HLD: - Furosemide 40 mg PO daily, Amlodipine 10 mg daily, Metoprolol 100 mg PO BID, Lisinopril 40 mg daily - Hydralazine 100 mg TID held- BPs well controlled at this time - Monitor I&Os and daily weights - Simvastatin 20 mg HS held due to NPO status- will resume once tolerating regular diet BPH: Tamsulosin 0.4 mg PO daily held due to NPO status- will resume once tolerating regular diet DVT Prophylaxis: Heparin SQ TID Code Status: LEVEL I, FULL Dispo: Discharge uncertain- planning for [facility] at discharge- PT/OT and CM consulted Continued [facility] stay due to: inadequate po fluid intake, ambulation difficulties , other (requiring O2 at 8-10 L and BiPAP) Discharge planning: rehab hospital, other (hope to be able to transfer to rehab when medically stable)
--- NOTE | 2017-08-04 20:04 | Pulmonology Progress Note ---
Pulmonary Progress Note Date of Service Aug 04, 2017. Attending Dr. Vines Subjective Patient exercising in bed on a regular basis. States that breathing is somewhat improved. But still has shortness of breath. No dialysis today. Much more energy. Tolerating diet. Requesting that boost be presented in the form of a milkshake. Request forwarded to dietary Patient with no acute complaints. Objective Vital Signs - as noted below Laboratory Data - as noted below Physical Exam: General - NAD Eyes - No icterus, gaze conjugate ENT - Mucosa moist, no lesions or candidiasis. Oxymask in place Neck - Supple, No JVD Lungs - The lungs continue to be decreased but overall effort is improved Heart - Regular, rate controlled Abdomen - Soft, NT, ND, BS present Extremities - some edema of right upper arm but good radial pulses in place. Bilateral edema to the feet and lower legs, pedal pulses intact. Neuro - A&OX3 Assessment & Plan ACUTE HYPOXIC RESPIRATORY FAILURE * Thoracentesis on the right 07/30/17 * Bed put in chair position but should continue to emphasize out of bed to bedside chair as tolerated * Physical therapy required to at least sit patient on the edge of bed and dangle legs. Patient motivated and doing active range of motion exercises in bed * Patient may with cellulitis of the right hand and arm. Cultures from the operating room grew out Cecilia glabrata - caspofungin was added by ID * Continue incentive spirometry, flutter valve, and BiPAP for oxygenation and to combat atelectasis PLEURAL EFFUSION * Status post thoracentesis 07/30/[address] Clark * Pathology and microbiology with yeast but no malignant cells * No redevelopment of effusion on chest x-ray 08/02/17 POSSIBLE CRYPTOGENIC ORGANIZING PNEUMONIA * Steroids were started 07/06/17 * Continue prolonged taper * ID treating yeast in pleural fluid with caspofungin. We will defer duration to ID QUESTION OF PULMONARY EMBOLI * CTA with no evidence of pulmonary embolus * Lower extremity duplex was negative for DVT * Continue DVT prophylaxis with heparin 5000 units subcutaneous every 8 hours DVT PROPHYLAXIS * Continue heparin 5000 units subcutaneously every eight hours * Need to encourage out of bed to chair * Need to encourage physical therapy Thank you for including us in the care of this patient. Please refer to Dr. Vines's addendum for further recommendations. Data Medications: Current Inpatient Medications Medications (Trade) Dose Ordered Sig/Edward Route Start Time Stop Time Status Last Admin Dose Admin Lactobacillus Acidophilus (Floranex Tab) 2 tab TID PO 07/06/17 09:00 08/05/17 08:59 08/04/17 13:43 2 TAB Lisinopril (Zestril Tab) 40 mg DAILY PO 07/06/17 09:00 08/05/17 08:59 08/04/17 08:24 40 MG Miscellaneous Information (Check Fentanyl Patch Placement) 1 ea QS N/A 07/06/17 08:00 08/05/17 07:59 08/04/17 16:26 1 EA Glucose (Glucose 40% Gel) 15-30 GRAMS 15 GRAMS... UD PRN PO 07/06/17 04:15 08/05/17 04:14 Glucose (Glucose Chew Tab) 4-8 Tablets 4 Tabl... UD PRN PO 07/06/17 04:15 08/05/17 04:14 Dextrose (Dextrose 50% 50ML Syringe) 25-50ML OF 50% DW IV FOR... UD PRN IV 07/06/17 04:15 08/05/17 04:14 08/02/17 14:44 50 ML Glucagon (Glucagon Inj) 1 mg UD PRN SQ 07/06/17 04:15 08/05/17 04:14 Heparin Sodium (Porcine) (Heparin 100 Unit/ml 5ml Flush) 5 ml PRN PRN IV 07/07/17 02:45 08/06/17 02:44 Future hold 08/02/17 09:24 5 ML Ondansetron HCl (Zofran Inj) 4 mg Q4H PRN IV 07/11/17 03:00 08/10/17 02:59 08/04/17 15:58 4 MG Prochlorperazine Edisylate 5 mg/ Syringe 5 ml @ 5 mls/min Q4H PRN IV 07/11/17 14:00 08/10/17 13:59 Lactulose (Chronulac Syrup) 30 gm Q4H PRN PO 07/11/17 16:45 08/10/17 16:44 Miscellaneous (Fentanyl Patch Remove & Waste) 1 ea Q3D@0859 N/A 07/22/17 08:59 08/21/17 08:58 08/03/17 08:32 1 EA Fentanyl (Duragesic Patch) 25 mcg Q3D@0900 TD 07/22/17 09:00 08/05/17 08:59 08/03/17 08:32 25 MCG Ergocalciferol (Vitamin D Cap) 50,000 interunit Q7D@0900 PO 07/20/17 09:00 08/19/17 08:59 08/03/17 08:22 50,000 INTERUNIT Hydralazine HCl (HydrALAZINE INJ) 5 mg Q4 PRN IV. 07/21/17 17:15 08/20/17 17:14 Future Hold 07/25/17 23:45 5 MG Hydralazine HCl (HydrALAZINE INJ) 5 mg TID IV. 07/21/17 21:00 08/20/17 20:59 Future Hold 07/30/17 08:33 5 MG Fentanyl Citrate (Fentanyl Inj) Fentanyl 25-50 mcg... Q4H PRN IV 07/21/17 20:45 08/04/17 20:44 07/24/17 05:47 50 MCG Miscellaneous Information (Consult Glycemic Management Pharmacy) 1 ea UD PRN N/A 07/23/17 13:14 08/22/17 13:13 Morphine Sulfate (MoRPHine SULFATE INJ) 2 mg Q3RWA PRN IV 07/24/17 11:30 08/07/17 11:29 08/04/17 18:48 2 MG Caspofungin 50 mg/ Sodium Chloride 260 ml @ 250 mls/hr Q24H IV 07/28/17 12:00 08/06/17 11:59 08/04/17 12:10 250 MLS/HR Insulin Aspart (novoLOG ASPART) SLIDING SCALE G... ACHS SC 07/27/17 11:30 08/26/17 11:29 08/04/17 12:17 10 UNITS Methadone HCl (Dolophine Tab) 20 mg BID PO 07/28/17 21:00 08/08/17 08:59 08/04/17 08:25 20 MG Ipratropium [place] (Atrovent 0.02% 0.5MG/2.5ML Neb) 0.5 mg Q6R INH 07/29/17 09:00 08/28/17 08:59 08/04/17 19:17 0.5 MG Levalbuterol (Xopenex 0.63 Mg/ 3 Ml Neb) 0.63 mg Q6R INH 07/29/17 09:00 08/28/17 08:59 08/04/17 19:17 0.63 MG Metoprolol Tartrate (Lopressor Tab) 100 mg BID PO 07/29/17 21:00 08/28/17 20:59 08/04/17 08:24 100 MG Amlodipine Besylate (Norvasc Tab) 10 mg QAM PO 07/30/17 09:00 08/29/17 08:59 08/04/17 08:24 10 MG Diphenhydramine HCl (Benadryl Inj) 50 mg 4XDQ4H PRN IV 07/30/17 13:30 08/29/17 13:29 Heparin Sodium (Porcine) (Heparin Sq 5000 Unit/0.5ml) 5,000 unit Q8 SQ 07/30/17 22:00 08/29/17 21:59 08/04/17 13:48 5,000 UNIT Prednisone (PredniSONE TAB) 20 mg BIDM PO 07/31/17 07:30 08/30/17 07:29 08/04/17 16:43 20 MG Furosemide (Lasix Tab) 40 mg QAM PO 08/01/17 09:00 08/31/17 08:59 08/04/17 08:25 40 MG Calcitriol (Rocaltrol Cap) 0.25 mcg Q2D@0900 PO 08/02/17 09:00 09/01/17 08:59 08/04/17 08:24 0.25 MCG Calcium Carbonate (Tums Chew Tab) 500 mg TID PO 08/02/17 09:00 09/01/17 08:59 08/04/17 13:43 500 MG Enteral Nutritional Formula (Boost Glucose Control) 1 can BID@1000,2100 PO 08/01/17 21:00 08/31/17 20:59 08/03/17 19:56 1 CAN Insulin Aspart (novoLOG ASPART) SLIDING SCALE G... 0000,0400 SC 08/04/17 00:00 09/03/17 00:00 08/04/17 04:16 6 UNITS Insulin Glargine (Lantus Solostar Pen) 10 units DAILY SC 08/05/17 09:00 09/04/17 08:59 I & O: 24-Hour Column 08/05/17 08:00 Intake Total 560 ml Output Total 200 ml Balance 360 ml Vital Signs: Date Time Temp Pulse Resp B/P (MAP) Pulse Ox O2 Delivery O2 Flow Rate FiO2 08/04/17 19:20 105 18 94 BiPAP/CPAP 50 08/04/17 19:20 105 94 50 08/04/17 16:40 37.0 90 18 166/72 (103) 95 08/04/17 16:00 BiPAP 80 08/04/17 14:08 94 18 94 Mask 15.0 08/04/17 12:00 BiPAP 80 08/04/17 11:55 36.8 86 18 142/73 (96) 95 08/04/17 08:01 37.0 90 20 129/66 (87) 95 08/04/17 08:00 BiPAP 80 08/04/17 07:00 85 18 93 BiPAP/CPAP 50 08/04/17 05:32 90 94 50 08/04/17 04:00 BiPAP 50 08/04/17 03:46 36.5 99 18 131/69 (89) 95 BiPAP 08/04/17 02:09 90 18 98 BiPAP/CPAP 60 08/04/17 02:08 90 98 60 08/04/17 00:01 BiPAP 50 08/03/17 23:30 36.8 100 18 152/68 (96) 98 BiPAP 08/03/17 21:40 103 96 60 08/03/17 20:23 36.7 102 20 157/69 (98) 90 Oxymask 15.0 08/03/17 20:00 93 Oxymask 15.0 Laboratory Results: Last 24 Hours Test 08/03/17 20:24 08/04/17 00:06 08/04/17 03:33 08/04/17 06:44 Bedside Glucose 268 mg/dl 261 mg/dl 302 mg/dl 277 mg/dl Test 08/04/17 07:59 08/04/17 11:28 08/04/17 16:18 White Blood Count 15.61 K/uL Red Blood Count 2.56 M/uL Hemoglobin 7.7 g/dL Hematocrit 23.4 % Mean Corpuscular Volume 91.4 fL Mean Corpuscular Hemoglobin 30.1 pg Mean Corpuscular Hemoglobin Concent 32.9 g/dl RDW Standard Deviation 65.1 fL RDW Coefficient of Variation 20.4 % Platelet Count 132 K/uL Mean Platelet Volume 12.3 fL Nucleated RBC Absolute Count (auto) 0.12 K/uL Nucleated Red Blood Cells % 0.8 % Sodium Level 135 mmol/L Potassium Level 5.1 mmol/L Chloride Level 97 mmol/L Carbon Dioxide Level 28 mmol/L Anion Gap 11.0 mmol/L Blood Urea Nitrogen 82 mg/dl Creatinine 3.69 mg/dl Est Creatinine Clear Calc Drug Dose 21.2 ml/min Estimated GFR () 19.1 Estimated GFR (Non- 16.4 BUN/Creatinine Ratio 22.2 Random Glucose 226 mg/dl Calcium Level 7.6 mg/dl Bedside Glucose 265 mg/dl 74 mg/dl
--- NOTE | 2017-08-04 20:28 | Infectious Disease Progress Nt ---
Progress Note Date of Service Aug 04, 2017. Subjective Pt evaluation today including: conversation w/ patient, physical exam, chart review, lab review, review of studies, conversation w/ applications sales consultant, review of inpatient medication list Patient offers no new complaints today. Remains afebrile. No increase in shortness of breath or cough. Continues to tolerate therapy without apparent difficulty. All Other Systems: Reviewed and Negative Medications Current Inpatient Medications Medications (Trade) Dose Ordered Sig/Edward Route Start Time Stop Time Status Last Admin Dose Admin Lactobacillus Acidophilus (Floranex Tab) 2 tab TID PO 07/06/17 09:00 08/05/17 08:59 08/04/17 13:43 2 TAB Lisinopril (Zestril Tab) 40 mg DAILY PO 07/06/17 09:00 08/05/17 08:59 08/04/17 08:24 40 MG Miscellaneous Information (Check Fentanyl Patch Placement) 1 ea QS N/A 07/06/17 08:00 08/05/17 07:59 08/04/17 16:26 1 EA Glucose (Glucose 40% Gel) 15-30 GRAMS 15 GRAMS... UD PRN PO 07/06/17 04:15 08/05/17 04:14 Glucose (Glucose Chew Tab) 4-8 Tablets 4 Tabl... UD PRN PO 07/06/17 04:15 08/05/17 04:14 Dextrose (Dextrose 50% 50ML Syringe) 25-50ML OF 50% DW IV FOR... UD PRN IV 07/06/17 04:15 08/05/17 04:14 08/02/17 14:44 50 ML Glucagon (Glucagon Inj) 1 mg UD PRN SQ 07/06/17 04:15 08/05/17 04:14 Heparin Sodium (Porcine) (Heparin 100 Unit/ml 5ml Flush) 5 ml PRN PRN IV 07/07/17 02:45 08/06/17 02:44 Future hold 08/02/17 09:24 5 ML Ondansetron HCl (Zofran Inj) 4 mg Q4H PRN IV 07/11/17 03:00 08/10/17 02:59 08/04/17 15:58 4 MG Prochlorperazine Edisylate 5 mg/ Syringe 5 ml @ 5 mls/min Q4H PRN IV 07/11/17 14:00 08/10/17 13:59 Lactulose (Chronulac Syrup) 30 gm Q4H PRN PO 07/11/17 16:45 08/10/17 16:44 Miscellaneous (Fentanyl Patch Remove & Waste) 1 ea Q3D@0859 N/A 07/22/17 08:59 08/21/17 08:58 08/03/17 08:32 1 EA Fentanyl (Duragesic Patch) 25 mcg Q3D@0900 TD 07/22/17 09:00 08/05/17 08:59 08/03/17 08:32 25 MCG Ergocalciferol (Vitamin D Cap) 50,000 interunit Q7D@0900 PO 07/20/17 09:00 08/19/17 08:59 08/03/17 08:22 50,000 INTERUNIT Hydralazine HCl (HydrALAZINE INJ) 5 mg Q4 PRN IV. 07/21/17 17:15 08/20/17 17:14 Future Hold 07/25/17 23:45 5 MG Hydralazine HCl (HydrALAZINE INJ) 5 mg TID IV. 07/21/17 21:00 08/20/17 20:59 Future Hold 07/30/17 08:33 5 MG Fentanyl Citrate (Fentanyl Inj) Fentanyl 25-50 mcg... Q4H PRN IV 07/21/17 20:45 08/04/17 20:44 07/24/17 05:47 50 MCG Miscellaneous Information (Consult Glycemic Management Pharmacy) 1 ea UD PRN N/A 07/23/17 13:14 08/22/17 13:13 Morphine Sulfate (MoRPHine SULFATE INJ) 2 mg Q3RWA PRN IV 07/24/17 11:30 08/07/17 11:29 08/04/17 18:48 2 MG Caspofungin 50 mg/ Sodium Chloride 260 ml @ 250 mls/hr Q24H IV 07/28/17 12:00 08/06/17 11:59 08/04/17 12:10 250 MLS/HR Insulin Aspart (novoLOG ASPART) SLIDING SCALE G... ACHS SC 07/27/17 11:30 08/26/17 11:29 08/04/17 12:17 10 UNITS Methadone HCl (Dolophine Tab) 20 mg BID PO 07/28/17 21:00 08/08/17 08:59 08/04/17 08:25 20 MG Ipratropium [place] (Atrovent 0.02% 0.5MG/2.5ML Neb) 0.5 mg Q6R INH 07/29/17 09:00 08/28/17 08:59 08/04/17 19:17 0.5 MG Levalbuterol (Xopenex 0.63 Mg/ 3 Ml Neb) 0.63 mg Q6R INH 07/29/17 09:00 08/28/17 08:59 08/04/17 19:17 0.63 MG Metoprolol Tartrate (Lopressor Tab) 100 mg BID PO 07/29/17 21:00 08/28/17 20:59 08/04/17 08:24 100 MG Amlodipine Besylate (Norvasc Tab) 10 mg QAM PO 07/30/17 09:00 08/29/17 08:59 08/04/17 08:24 10 MG Diphenhydramine HCl (Benadryl Inj) 50 mg 4XDQ4H PRN IV 07/30/17 13:30 08/29/17 13:29 Heparin Sodium (Porcine) (Heparin Sq 5000 Unit/0.5ml) 5,000 unit Q8 SQ 07/30/17 22:00 08/29/17 21:59 08/04/17 13:48 5,000 UNIT Prednisone (PredniSONE TAB) 20 mg BIDM PO 07/31/17 07:30 08/30/17 07:29 08/04/17 16:43 20 MG Furosemide (Lasix Tab) 40 mg QAM PO 08/01/17 09:00 08/31/17 08:59 08/04/17 08:25 40 MG Calcitriol (Rocaltrol Cap) 0.25 mcg Q2D@0900 PO 08/02/17 09:00 09/01/17 08:59 08/04/17 08:24 0.25 MCG Calcium Carbonate (Tums Chew Tab) 500 mg TID PO 08/02/17 09:00 09/01/17 08:59 08/04/17 13:43 500 MG Enteral Nutritional Formula (Boost Glucose Control) 1 can BID@1000,2100 PO 08/01/17 21:00 08/31/17 20:59 08/03/17 19:56 1 CAN Insulin Aspart (novoLOG ASPART) SLIDING SCALE G... 0000,0400 SC 08/04/17 00:00 09/03/17 00:00 08/04/17 04:16 6 UNITS Insulin Glargine (Lantus Solostar Pen) 10 units DAILY SC 08/05/17 09:00 09/04/17 08:59 Objective Vital Signs Date Time Temp Pulse Resp B/P (MAP) Pulse Ox O2 Delivery O2 Flow Rate FiO2 08/04/17 19:20 105 18 94 BiPAP/CPAP 50 08/04/17 19:20 105 94 50 08/04/17 16:40 37.0 90 18 166/72 (103) 95 08/04/17 16:00 BiPAP 80 08/04/17 14:08 94 18 94 Mask 15.0 08/04/17 12:00 BiPAP 80 08/04/17 11:55 36.8 86 18 142/73 (96) 95 08/04/17 08:01 37.0 90 20 129/66 (87) 95 08/04/17 08:00 BiPAP 80 08/04/17 07:00 85 18 93 BiPAP/CPAP 50 08/04/17 05:32 90 94 50 08/04/17 04:00 BiPAP 50 08/04/17 03:46 36.5 99 18 131/69 (89) 95 BiPAP 08/04/17 02:09 90 18 98 BiPAP/CPAP 60 08/04/17 02:08 90 98 60 08/04/17 00:01 BiPAP 50 08/03/17 23:30 36.8 100 18 152/68 (96) 98 BiPAP 08/03/17 21:40 103 96 60 Physical Exam General Appearance: no apparent distress, + pertinent finding (Chronically ill- appearing) Eyes: normal inspection, EOMI, sclerae normal ENT: normal ENT inspection, pharynx normal Neck: supple, no adenopathy, trachea midline Respiratory/Chest: chest non-tender, lungs clear, normal breath sounds, no respiratory distress Cardiovascular: regular rate, rhythm, no gallop, no murmur Abdomen: normal bowel sounds, non tender, soft, no organomegaly Extremities: non-tender, no calf tenderness Neurologic/Psychiatric: alert, oriented x 3 Skin: normal color, no rash Lymphatic: no adenopathy Laboratory Results Last 24 Hours Test 08/04/17 00:06 08/04/17 03:33 08/04/17 06:44 08/04/17 07:59 Bedside Glucose 261 mg/dl 302 mg/dl 277 mg/dl White Blood Count 15.61 K/uL Red Blood Count 2.56 M/uL Hemoglobin 7.7 g/dL Hematocrit 23.4 % Mean Corpuscular Volume 91.4 fL Mean Corpuscular Hemoglobin 30.1 pg Mean Corpuscular Hemoglobin Concent 32.9 g/dl RDW Standard Deviation 65.1 fL RDW Coefficient of Variation 20.4 % Platelet Count 132 K/uL Mean Platelet Volume 12.3 fL Nucleated RBC Absolute Count (auto) 0.12 K/uL Nucleated Red Blood Cells % 0.8 % Sodium Level 135 mmol/L Potassium Level 5.1 mmol/L Chloride Level 97 mmol/L Carbon Dioxide Level 28 mmol/L Anion Gap 11.0 mmol/L Blood Urea Nitrogen 82 mg/dl Creatinine 3.69 mg/dl Est Creatinine Clear Calc Drug Dose 21.2 ml/min Estimated GFR () 19.1 Estimated GFR (Non- 16.4 BUN/Creatinine Ratio 22.2 Random Glucose 226 mg/dl Calcium Level 7.6 mg/dl Test 08/04/17 11:28 08/04/17 16:18 Bedside Glucose 265 mg/dl 74 mg/dl Assessment and Plan 61-year-old male with metastatic renal cell carcinoma with left hand cellulitis , Possible reflex sympathetic dystrophy, subsequent development of pneumonitis, C difficile infection, and then 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 OR cultures have grown Cecilia glabrata, and have added caspofungin as this species often fluconazole resistant. Pleural fluid cultures with yeast, likely Cecilia Torulopsis related to perforation with peritonitis. Patient to be continued on caspofungin. Will follow
[2017-08-05] VITALS (30 sets, daily range): BP systolic 109–180; BP diastolic 63–89; PULSE 69–111; TEMP 36.1–37.5; O2SAT 87–96
[2017-08-05] MEDS: IPRATROPIUM BROMIDE NEB SOLN 0.02% 2.5 ML VIAL INH SCH ×4 (01:45→19:07)
[2017-08-05] MEDS: LEVALBUTEROL 0.63MG/3 ML NEB INH SCH ×4 (01:46→19:07)
[2017-08-05] MEDS: INSULIN ASPART 100 UNITS/ML 3 ML PEN SC SCH ×6 (04:00→20:35)
[2017-08-05 05:00] LABS: HEMATOCRIT 23.4 % (42-52); HEMOGLOBIN 7.6 g/dL (14.0-18.0); MEAN CELL VOLUME 92.9 fL (80-100); MEAN CORPUSCULAR HEMOGLOBIN 30.2 pg (25-34); MEAN CORPUSCULAR HGB CONC 32.5 g/dl (32-36); MEAN PLATELET VOLUME 11.3 fL (7.4-10.4); NUCLEATED RED BLOOD CELL ABS 0.09 K/uL (0-0); PLATELET COUNT 128 K/uL (130-400); RED CELL DISTRIBUTION WIDTH CV 20.2 % (11.5-14.5); RED CELL DISTRIBUTION WIDTH SD 67.3 fL (36.4-46.3); WHITE BLOOD COUNT 16.53 K/uL (4.8-10.8)
[2017-08-05 05:21] LABS: ALBUMIN 1.2 gm/dl (3.4-5.0); CALCIUM 7.9 mg/dl (8.5-10.1); CREATININE 4.03 mg/dl (0.60-1.40); POTASSIUM 5.4 mmol/L (3.5-5.1)
[2017-08-05 05:24] LABS: TOTAL PROTEIN 4.5 gm/dl (6.4-8.2)
[2017-08-05] MEDS: HEPARIN SOD 5000 UNIT/0.5 ML CARP SQ SCH ×3 (05:52→20:39)
[2017-08-05] MEDS: MoRPHine SULFATE 2 MG/ML CARP IV PRN (05:52)
[2017-08-05] MEDS: METHADONE HCL 10 MG TAB PO SCH ×2 (07:43→20:37)
[2017-08-05] MEDS: LACTOBACILLUS ACIDOPHILUS (FLORANEX) TAB PO SCH (07:43)
[2017-08-05] MEDS: METOPROLOL TARTRATE 100 MG TAB PO SCH ×2 (07:43→20:38)
[2017-08-05] MEDS: CALCIUM CARBONATE 500 MG CHEWABLE PO SCH ×3 (07:44→20:35)
[2017-08-05] MEDS: FUROSEMIDE 40 MG TAB PO SCH (07:44)
[2017-08-05] MEDS: AMLODIPINE BESYLATE 5 MG TAB PO SCH (07:44)
[2017-08-05] MEDS ORDERED: INSULIN GLARGINE SOLOSTAR 100 UNITS/ML 3 ML PEN SC SCH ×2 (09:00)
[2017-08-05] MEDS: BOOST GLUCOSE CONTROL PO SCH ×2 (10:00→20:35)
--- NOTE | 2017-08-05 13:17 | Dialysis Progress Note ---
Hemodialysis Note Date of Service Aug 05, 2017. Chief Complaint Follow-up for end-stage renal disease on hemodialysis. Roland Causey was seen and examined during dialysis this morning. He has been tolerating dialysis well, denies any shortness of breath or chest pain. Blood pressure has been stable. Review of Systems A complete review of systems was performed. Pertinent positives are noted above. All other systems are negative. Vital Signs Last 8 Hrs Date Time Temp Pulse Resp B/P (MAP) Pulse Ox O2 Delivery O2 Flow Rate FiO2 08/05/17 12:31 36.4 97 131/75 (93) 08/05/17 12:30 104 112/79 08/05/17 12:15 110 109/75 08/05/17 12:00 104 119/75 08/05/17 12:00 BiPAP 80 08/05/17 11:45 76 123/63 08/05/17 11:30 79 127/73 08/05/17 11:22 36.9 107 12 123/66 (85) 93 Room Air 08/05/17 11:15 88 132/77 08/05/17 11:00 87 140/84 08/05/17 10:45 107 143/81 08/05/17 10:30 81 137/76 08/05/17 10:15 86 142/89 08/05/17 10:00 81 137/79 08/05/17 09:45 84 141/82 08/05/17 09:30 81 137/79 08/05/17 09:15 79 154/77 08/05/17 09:00 69 147/72 08/05/17 08:45 76 159/71 08/05/17 08:30 84 179/69 08/05/17 08:20 36.1 89 180/72 (108) 08/05/17 08:00 BiPAP 80 08/05/17 07:23 97 91 50 08/05/17 07:22 97 22 91 BiPAP/CPAP 50 08/05/17 06:33 36.8 103 23 164/75 (104) 87 Oxymask 15.0 I & O 24-Hour Column 08/06/17 08:00 Output Total 3000 ml Balance -3000 ml Last Recorded Weight Weight (Kilograms): 82.900 Physical Exam GENERAL: Middle-aged male , AAA x 3, pleasant, ill-appearing, not in any distress. NECK: Supple, no JVD. RESPIRATORY: Normal breathing efforts, no accessory muscle use, clear to auscultation bilaterally, no wheezes or rales. CARDIOVASCULAR: S1, S2 normal, rate rhythm regular. EXTREMITY: Edema both upper and lower extremity NEURO: speech fluent. PSYCHIATRY: Normal mood and judgment Family History Negative for CKD/ESRD Social History Smokeless Tobacco Use: No Alcohol Use: none Drug Use: none Marital Status: single Housing Status: lives alone Occupation: disabled Single, retired. Formerly worked for [employer]. Never a smoker. Laboratory Results Past 24 Hours 08/05/17 04:13 08/05/17 04:13 Test 08/04/17 16:18 08/04/17 20:32 08/05/17 00:00 08/05/17 04:02 Bedside Glucose 74 mg/dl (70-99) 110 mg/dl (70-99) 132 mg/dl (70-99) 129 mg/dl (70-99) Test 08/05/17 04:13 08/05/17 06:31 08/05/17 11:17 Red Blood Count 2.52 M/uL (4.7-6.1) Mean Corpuscular Volume 92.9 fL (80-100) Mean Corpuscular Hemoglobin 30.2 pg (25-34) Mean Corpuscular Hemoglobin Concent 32.5 g/dl (32-36) RDW Standard Deviation 67.3 fL (36.4-46.3) RDW Coefficient of Variation 20.2 % (11.5-14.5) Mean Platelet Volume 11.3 fL (7.4-10.4) Nucleated RBC Absolute Count (auto) 0.09 K/uL (0-0) Nucleated Red Blood Cells % 0.6 % Anion Gap 8.0 mmol/L (3-11) Est Creatinine Clear Calc Drug Dose 19.4 ml/min Estimated GFR () 17.1 Estimated GFR (Non- 14.8 BUN/Creatinine Ratio 21.6 (10-20) Calcium Level 7.9 mg/dl (8.5-10.1) Total Bilirubin 0.4 mg/dl (0.2-1) Direct Bilirubin 0.1 mg/dl (0-0.2) Aspartate Amino Transf (AST/SGOT) 28 U/L (15-37) Alanine Aminotransferase (ALT/SGPT) 34 U/L (12-78) Alkaline Phosphatase 304 U/L (45-117) Total Protein 4.5 gm/dl (6.4-8.2) Albumin 1.2 gm/dl (3.4-5.0) Bedside Glucose 129 mg/dl (70-99) 116 mg/dl (70-99) Allergies Coded Allergies: Iodinated Diagnostic Agents (Verified Allergy, Unknown, oil based, severe headaches, 06/20/17) EVENT OCCURED IN 1971, PT STATES HE HAS HAD 3 DIFFERENT WATER BASED IVP DYES WITH NO ISSUE Medications Current Inpatient Medications Medications (Trade) Dose Ordered Sig/Edward Route Start Time Stop Time Status Last Admin Dose Admin Heparin Sodium (Porcine) (Heparin 100 Unit/ml 5ml Flush) 5 ml PRN PRN IV 07/07/17 02:45 08/06/17 02:44 Future hold 08/02/17 09:24 5 ML Ondansetron HCl (Zofran Inj) 4 mg Q4H PRN IV 07/11/17 03:00 08/10/17 02:59 08/04/17 15:58 4 MG Prochlorperazine Edisylate 5 mg/ Syringe 5 ml @ 5 mls/min Q4H PRN IV 07/11/17 14:00 08/10/17 13:59 Lactulose (Chronulac Syrup) 30 gm Q4H PRN PO 07/11/17 16:45 08/10/17 16:44 Miscellaneous (Fentanyl Patch Remove & Waste) 1 ea Q3D@0859 N/A 07/22/17 08:59 08/21/17 08:58 08/03/17 08:32 1 EA Ergocalciferol (Vitamin D Cap) 50,000 interunit Q7D@0900 PO 07/20/17 09:00 08/19/17 08:59 08/03/17 08:22 50,000 INTERUNIT Hydralazine HCl (HydrALAZINE INJ) 5 mg Q4 PRN IV. 07/21/17 17:15 08/20/17 17:14 Future Hold 07/25/17 23:45 5 MG Hydralazine HCl (HydrALAZINE INJ) 5 mg TID IV. 07/21/17 21:00 08/20/17 20:59 Future Hold 07/30/17 08:33 5 MG Miscellaneous Information (Consult Glycemic Management Pharmacy) 1 ea UD PRN N/A 07/23/17 13:14 08/22/17 13:13 Morphine Sulfate (MoRPHine SULFATE INJ) 2 mg Q3RWA PRN IV 07/24/17 11:30 08/07/17 11:29 08/05/17 05:52 2 MG Caspofungin 50 mg/ Sodium Chloride 260 ml @ 250 mls/hr Q24H IV 07/28/17 12:00 08/06/17 11:59 08/04/17 12:10 250 MLS/HR Insulin Aspart (novoLOG ASPART) SLIDING SCALE G... ACHS SC 07/27/17 11:30 08/26/17 11:29 08/05/17 07:46 3 UNITS Methadone HCl (Dolophine Tab) 20 mg BID PO 07/28/17 21:00 08/08/17 08:59 08/05/17 07:43 20 MG Ipratropium [place] (Atrovent 0.02% 0.5MG/2.5ML Neb) 0.5 mg Q6R INH 07/29/17 09:00 08/28/17 08:59 08/05/17 07:19 0.5 MG Levalbuterol (Xopenex 0.63 Mg/ 3 Ml Neb) 0.63 mg Q6R INH 07/29/17 09:00 08/28/17 08:59 08/05/17 07:19 0.63 MG Metoprolol Tartrate (Lopressor Tab) 100 mg BID PO 07/29/17 21:00 08/28/17 20:59 08/05/17 07:43 100 MG Amlodipine Besylate (Norvasc Tab) 10 mg QAM PO 07/30/17 09:00 08/29/17 08:59 08/05/17 07:44 10 MG Diphenhydramine HCl (Benadryl Inj) 50 mg 4XDQ4H PRN IV 07/30/17 13:30 08/29/17 13:29 Heparin Sodium (Porcine) (Heparin Sq 5000 Unit/0.5ml) 5,000 unit Q8 SQ 07/30/17 22:00 2/6/18 21:59 08/05/17 05:52 5,000 UNIT Prednisone (PredniSONE TAB) 20 mg BIDM PO 07/31/17 07:30 2 07:29 08/05/17 07:44 20 MG Furosemide (Lasix Tab) 40 mg QAM PO 08/01/17 09:00 08/31/17 08:59 08/05/17 07:44 40 MG Calcitriol (Rocaltrol Cap) 0.25 mcg Q2D@0900 PO 08/02/17 09:00 09/01/17 08:59 08/04/17 08:24 0.25 MCG Calcium Carbonate (Tums Chew Tab) 500 mg TID PO 08/02/17 09:00 09/01/17 08:59 08/05/17 07:44 500 MG Enteral Nutritional Formula (Boost Glucose Control) 1 can BID@1000,2100 PO 08/01/17 21:00 08/31/17 20:59 08/04/17 20:22 1 CAN Insulin Aspart (novoLOG ASPART) SLIDING SCALE G... 0000,0400 SC 08/04/17 00:00 09/03/17 00:00 08/04/17 04:16 6 UNITS Insulin Glargine (Lantus Solostar Pen) 12 units DAILY SC 08/05/17 09:00 09/04/17 08:59 08/05/17 07:49 12 UNITS Impression (1) Cellulitis of left hand (2) ESRD (end stage renal disease) on dialysis (3) Renal cell carcinoma (4) Anemia (5) Diabetes type 2, controlled Mr. Christy has ESRD and metastatic RCC. He underwent left nephrectomy in 2015. Patient did not tolerate Sutent due to high grade proteinuria; Opdivo caused arthralgia, colitis and possible pneumonitis. He was most recently treated w/ Cabometyx. This was complicated by abdominal wall hematoma a intestinal perforation. He remains on steroids for interstitial lung disease versus [employer]. Mr. Christy was admitted with persistent soft tissue infection of the left hand. Patient tested positive for C. Difficile colitis. He has had a prolonged and complicated hospital course. On 07/21 Mr. Christy was diagnosed with intestinal perforation and required emergency laparotomy. 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 Partial colectomy w/ reanastomosis was completed Mr. Christy's dialysis was complicated by prolonged bleeding from the AVF following treatment. 07/23 duplex study demonstrated high grade venous outflow stenosis. Fistulogram with coil embolization completed 07/25/16. Mr. Christy developed acute hypoxic respiratory failure and respiratory distress requiring NIPPV. Heparin gtt started for suspected PE. Recommendations -- hemodialysis this morning UF as tolerated, aim for 3 liters. -- Protect LUE AVF -- Epogen with dialysis -- Treatment for renal cell carcinoma on hold due to acute comorbid conditions -- Calcitriol and CaCO3 on hold due to recent abdominal surgery, will resume once patient on regular oral diet -- continue physical therapy a patient waiting for rehab discharge.
[2017-08-05] MEDS: CASPOFUNGIN INJ 50 MG in SODIUM CHLORIDE 0.9% 250ML 250 ML IV SCH (13:20)
--- NOTE | 2017-08-05 15:04 | Progress Note ---
Subjective Date of Service: Aug 05, 2017. Subjective Pt evaluation today including: conversation w/ patient, physical exam, lab review, review of inpatient medication list Pain: no pain PO Intake: adequate Voiding: no voiding problems receiving HD this AM, tolerating well breathing on BIPAP, was off of it this AM, will try to go back off after HD, try to sit up more typically he is fatigued on the days he has HD reviewed labs, Hb 7.6 appreciate pulmonology input Problem List Medical Problems: (1) Acute dyspnea Status: Acute (2) Chronic kidney disease Status: Acute (3) Failure of outpatient treatment Status: Acute (4) Left arm cellulitis Status: Acute (5) Renal cell carcinoma Status: Acute Review of Systems Constitutional: + weakness, + fatigue Respiratory: + shortness of breath Cardiac: + edema All Other Systems: Reviewed and Negative Medications Current Inpatient Medications Medications (Trade) Dose Ordered Sig/Edward Route Start Time Stop Time Status Last Admin Dose Admin Heparin Sodium (Porcine) (Heparin 100 Unit/ml 5ml Flush) 5 ml PRN PRN IV 07/07/17 02:45 08/06/17 02:44 Future hold 08/02/17 09:24 5 ML Ondansetron HCl (Zofran Inj) 4 mg Q4H PRN IV 07/11/17 03:00 08/10/17 02:59 08/04/17 15:58 4 MG Prochlorperazine Edisylate 5 mg/ Syringe 5 ml @ 5 mls/min Q4H PRN IV 07/11/17 14:00 08/10/17 13:59 Lactulose (Chronulac Syrup) 30 gm Q4H PRN PO 07/11/17 16:45 08/10/17 16:44 Miscellaneous (Fentanyl Patch Remove & Waste) 1 ea Q3D@0859 N/A 07/22/17 08:59 08/21/17 08:58 08/03/17 08:32 1 EA Ergocalciferol (Vitamin D Cap) 50,000 interunit Q7D@0900 PO 07/20/17 09:00 08/19/17 08:59 08/03/17 08:22 50,000 INTERUNIT Hydralazine HCl (HydrALAZINE INJ) 5 mg Q4 PRN IV. 07/21/17 17:15 08/20/17 17:14 Future Hold 07/25/17 23:45 5 MG Hydralazine HCl (HydrALAZINE INJ) 5 mg TID IV. 07/21/17 21:00 08/20/17 20:59 Future Hold 07/30/17 08:33 5 MG Miscellaneous Information (Consult Glycemic Management Pharmacy) 1 ea UD PRN N/A 07/23/17 13:14 08/22/17 13:13 Morphine Sulfate (MoRPHine SULFATE INJ) 2 mg Q3RWA PRN IV 07/24/17 11:30 08/07/17 11:29 08/05/17 05:52 2 MG Caspofungin 50 mg/ Sodium Chloride 260 ml @ 250 mls/hr Q24H IV 07/28/17 12:00 08/06/17 11:59 08/05/17 13:20 250 MLS/HR Insulin Aspart (novoLOG ASPART) SLIDING SCALE G... ACHS SC 07/27/17 11:30 08/26/17 11:29 08/05/17 07:46 3 UNITS Methadone HCl (Dolophine Tab) 20 mg BID PO 07/28/17 21:00 08/08/17 08:59 08/05/17 07:43 20 MG Ipratropium [place] (Atrovent 0.02% 0.5MG/2.5ML Neb) 0.5 mg Q6R INH 07/29/17 09:00 08/28/17 08:59 08/05/17 14:32 0.5 MG Levalbuterol (Xopenex 0.63 Mg/ 3 Ml Neb) 0.63 mg Q6R INH 07/29/17 09:00 08/28/17 08:59 08/05/17 14:32 0.63 MG Metoprolol Tartrate (Lopressor Tab) 100 mg BID PO 07/29/17 21:00 08/28/17 20:59 08/05/17 07:43 100 MG Amlodipine Besylate (Norvasc Tab) 10 mg QAM PO 07/30/17 09:00 08/29/17 08:59 08/05/17 07:44 10 MG Diphenhydramine HCl (Benadryl Inj) 50 mg 4XDQ4H PRN IV 07/30/17 13:30 2/6/18 13:29 Heparin Sodium (Porcine) (Heparin Sq 5000 Unit/0.5ml) 5,000 unit Q8 SQ 07/30/17 22:00 08/29/17 21:59 08/05/17 13:23 5,000 UNIT Prednisone (PredniSONE TAB) 20 mg BIDM PO 07/31/17 07:30 08/30/17 07:29 08/05/17 07:44 20 MG Furosemide (Lasix Tab) 40 mg QAM PO 08/01/17 09:00 08/31/17 08:59 08/05/17 07:44 40 MG Calcitriol (Rocaltrol Cap) 0.25 mcg Q2D@0900 PO 08/02/17 09:00 09/01/17 08:59 08/04/17 08:24 0.25 MCG Calcium Carbonate (Tums Chew Tab) 500 mg TID PO 08/02/17 09:00 09/01/17 08:59 08/05/17 13:20 500 MG Enteral Nutritional Formula (Boost Glucose Control) 1 can BID@1000,2100 PO 08/01/17 21:00 08/31/17 20:59 08/04/17 20:22 1 CAN Insulin Aspart (novoLOG ASPART) SLIDING SCALE G... 0000,0400 SC 08/04/17 00:00 09/03/17 00:00 08/04/17 04:16 6 UNITS Insulin Glargine (Lantus Solostar Pen) 12 units DAILY SC 08/05/17 09:00 09/04/17 08:59 08/05/17 07:49 12 UNITS Objective Vital Signs Date Time Temp Pulse Resp B/P (MAP) Pulse Ox O2 Delivery O2 Flow Rate FiO2 08/05/17 14:32 88 24 96 Mask 15.0 08/05/17 12:31 36.4 97 131/75 (93) 08/05/17 12:30 104 112/79 08/05/17 12:15 110 109/75 08/05/17 12:00 104 119/75 08/05/17 12:00 BiPAP 80 08/05/17 11:45 76 123/63 08/05/17 11:30 79 127/73 08/05/17 11:22 36.9 107 12 123/66 (85) 93 Room Air 08/05/17 11:15 88 132/77 08/05/17 11:00 87 140/84 08/05/17 10:45 107 143/81 08/05/17 10:30 81 137/76 08/05/17 10:15 86 142/89 08/05/17 10:00 81 137/79 08/05/17 09:45 84 141/82 08/05/17 09:30 81 137/79 08/05/17 09:15 79 154/77 08/05/17 09:00 69 147/72 08/05/17 08:45 76 159/71 08/05/17 08:30 84 179/69 08/05/17 08:20 36.1 89 180/72 (108) 08/05/17 08:00 BiPAP 80 08/05/17 07:23 97 91 50 08/05/17 07:22 97 22 91 BiPAP/CPAP 50 08/05/17 06:33 36.8 103 23 164/75 (104) 87 Oxymask 15.0 08/05/17 04:00 36.6 94 19 151/73 (99) 94 BiPAP 50 08/05/17 04:00 BiPAP 08/05/17 01:47 93 95 50 08/05/17 01:47 93 18 95 BiPAP/CPAP 50 08/05/17 00:00 BiPAP 08/04/17 23:59 36.9 100 19 172/74 (106) 93 BiPAP 50 176/76 (109) 08/04/17 22:15 95 91 50 08/04/17 20:35 36.4 105 22 177/84 (115) 91 Oxymask 15.0 08/04/17 20:00 Oxymask 15.0 BiPAP 08/04/17 19:20 105 18 94 BiPAP/CPAP 50 08/04/17 19:20 105 94 50 08/04/17 16:40 37.0 90 18 166/72 (103) 95 08/04/17 16:00 BiPAP 80 Physical Exam General Appearance: WD/WN, no apparent distress Eyes: normal inspection, EOMI, sclerae normal ENT: normal ENT inspection, hearing grossly normal, pharynx normal Neck: supple, no adenopathy, no JVD, trachea midline Respiratory/Chest: chest non-tender, no respiratory distress, no accessory muscle use, + rhonchi Cardiovascular: regular rate, rhythm, no gallop, no JVD, no murmur Abdomen: normal bowel sounds, non tender, soft, no organomegaly Extremities: normal range of motion, non-tender, no calf tenderness, normal capillary refill, + pedal edema Neurologic/Psychiatric: systems 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-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 nml as tested, alert, normal mood/affect, oriented x 3, + motor weakness (generalized) Laboratory Results Last 24 Hours Test 08/04/17 16:18 08/04/17 20:32 08/05/17 00:00 08/05/17 04:02 Bedside Glucose 74 mg/dl 110 mg/dl 132 mg/dl 129 mg/dl Test 08/05/17 04:13 08/05/17 06:31 08/05/17 11:17 08/05/17 13:51 White Blood Count 16.53 K/uL Red Blood Count 2.52 M/uL Hemoglobin 7.6 g/dL Hematocrit 23.4 % Mean Corpuscular Volume 92.9 fL Mean Corpuscular Hemoglobin 30.2 pg Mean Corpuscular Hemoglobin Concent 32.5 g/dl RDW Standard Deviation 67.3 fL RDW Coefficient of Variation 20.2 % Platelet Count 128 K/uL Mean Platelet Volume 11.3 fL Nucleated RBC Absolute Count (auto) 0.09 K/uL Nucleated Red Blood Cells % 0.6 % Sodium Level 135 mmol/L Potassium Level 5.4 mmol/L Chloride Level 98 mmol/L Carbon Dioxide Level 29 mmol/L Anion Gap 8.0 mmol/L Blood Urea Nitrogen 87 mg/dl Creatinine 4.03 mg/dl Est Creatinine Clear Calc Drug Dose 19.4 ml/min Estimated GFR () 17.1 Estimated GFR (Non- 14.8 BUN/Creatinine Ratio 21.6 Random Glucose 120 mg/dl Calcium Level 7.9 mg/dl Total Bilirubin 0.4 mg/dl Direct Bilirubin 0.1 mg/dl Aspartate Amino Transf (AST/SGOT) 28 U/L Alanine Aminotransferase (ALT/SGPT) 34 U/L Alkaline Phosphatase 304 U/L Total Protein 4.5 gm/dl Albumin 1.2 gm/dl Bedside Glucose 129 mg/dl 116 mg/dl 100 mg/dl Assessment and Plan Mr. Christy is a 61 y/o M with PMH of ESRD on HD, RCC, DMII. Admitted for L hand cellulitis having failed outpatient management. Abdominal pain, found to have incidental rectus sheath hematoma, C.diff positive colitis and subsequent bowel perforation on 07/21, now s/p colectomy, anemia, and bilateral pneumonia on imaging. C. diff colitis, perforated jejunal bowel (suspected to result from chemo regimen) s/p colectomy, rectus sheath hematoma: - Surgical management as per surgery- POD #13: -- TPN completed on 07/29/17 - Currently on mechanical soft diet, tolerating better - Underlying severe protein malnutrition, albumin 1.2 today, continue Boost - C.Diff + 07/12/17: Completed 9 days of PO Vancomycin - C. glabratum growth- ID recommending Caspofungin x10 days- last day of treatment on 08/06/17 (tomorrow) - Pain controlled w/ Methadone and Morphine IV PRN Metastatic RCC s/p L nephrectomy, chronic pain: - Oncology following- holding treatment at this time due to acute issues- f/u outpatient - Palliative care following- appreciate recommendations for pain control- Methadone, Fentanyl, and Morphine PRN ESRD HD, secondary to RCC/ s/p left nephrectomy - Nephrology following , HD performed today - 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 on 07/23 - Vascular surgery consulted- s/p AVR repair on 07/25/17 - Hypocalcemia w/ vitamin D level of 9.4: Ergocalciferol 50,000 q7d indefinitely + daily D3 2000 when patient resumes oral intake- recheck levels in 12 weeks ESRD bone mineral disease: Resume Calcitriol and CaCO3 Left hand cellulitis- RESOLVED: - Initial MRI did not determine any osteomyelitis - ID consulted: treated initially with Ertapenem/Daptomycin, then transitioned to Cefepime- treated 07/22- 07/30 Acute hypoxia respiratory failure, ?secondary to pulmonary edema vs cryptogenic organizing pneumonia/drug related pneumonitis: - Continue O2 supplementation to maintain SaO2 >92%, wean as tolerated - on BIPAP this AM and while on HD, typically more fatigued these days, needs to sit upright afterwards - Started on heparin drip on 07/26 for presumed PE- CTA 07/30/17 negative for PE, thus heparin drip stopped - Large R pleural effusion s/p thoracentesis completed 07/30/17- pleural pathology w/ no malignancy, pleural cultures growing yeast- on IV Caspofungin - IV Solu-Medrol- transitioned to Prednisone 20 mg BID on 07/31 - DuoNebs QID and PRN - Pulmonary following -- Think poor respiratory status is secondary to inactivity- encouraged incentive spirometer, OOB in chair throughout day, working w/ PT DMII: - BSG ACHS and ISS - Pharmacy consulted for glycemic management- on Lantus sliding scale Acute anemia- transfused a total of 6 u PRBCs: - Nephrology following- Epogen with dialysis - H&H- 7.6 today- continue to follow and transfuse PRN for hgb < 7.0 or symptomatic HTN, HLD: - Furosemide 40 mg PO daily, Amlodipine 10 mg daily, Metoprolol 100 mg PO BID, Lisinopril 40 mg daily - Hydralazine 100 mg TID held- BPs well controlled at this time - Monitor I&Os and daily weights - Simvastatin 20 mg HS held due to NPO status- will resume once tolerating regular diet BPH: Tamsulosin 0.4 mg PO daily held due to NPO status- will resume once tolerating regular diet DVT Prophylaxis: Heparin SQ TID Code Status: LEVEL I, FULL Dispo: Discharge uncertain- planning for [facility] at discharge- PT/OT and CM consulted Continued [facility] stay due to: inadequate po fluid intake, ambulation difficulties , other (requiring O2 at 8-10 L and BiPAP) Discharge planning: rehab hospital, other (hope to be able to transfer to rehab when medically stable)
[2017-08-06] VITALS (17 sets, daily range): BP systolic 138–165; BP diastolic 64–82; PULSE 85–112; TEMP 36.4–37.2; O2SAT 88–96
[2017-08-06] MEDS: INSULIN ASPART 100 UNITS/ML 3 ML PEN SC SCH ×6 (00:16→20:01)
[2017-08-06] MEDS: IPRATROPIUM BROMIDE NEB SOLN 0.02% 2.5 ML VIAL INH SCH ×4 (02:07→19:25)
[2017-08-06] MEDS: LEVALBUTEROL 0.63MG/3 ML NEB INH SCH ×4 (02:08→19:25)
[2017-08-06 04:58] LABS: CALCIUM 7.7 mg/dl (8.5-10.1); CREATININE 3.21 mg/dl (0.60-1.40); POTASSIUM 5.3 mmol/L (3.5-5.1)
[2017-08-06 05:08] LABS: HEMATOCRIT 20.7 % (42-52); HEMOGLOBIN 6.5 g/dL (14.0-18.0); MEAN CELL VOLUME 93.7 fL (80-100); MEAN CORPUSCULAR HEMOGLOBIN 29.4 pg (25-34); MEAN CORPUSCULAR HGB CONC 31.4 g/dl (32-36); MEAN PLATELET VOLUME 11.1 fL (7.4-10.4); NUCLEATED RED BLOOD CELL ABS 0.12 K/uL (0-0); PLATELET COUNT 118 K/uL (130-400); RED CELL DISTRIBUTION WIDTH CV 20.4 % (11.5-14.5)
[2017-08-06] MEDS: HEPARIN SOD 5000 UNIT/0.5 ML CARP SQ SCH ×3 (06:35→20:01)
[2017-08-06 06:41] LABS: HEMATOCRIT 20.7 % (42-52); HEMOGLOBIN 6.9 g/dL (14.0-18.0)
[2017-08-06] MEDS: METHADONE HCL 10 MG TAB PO SCH ×2 (08:15→20:00)
[2017-08-06] MEDS: AMLODIPINE BESYLATE 5 MG TAB PO SCH (08:15)
[2017-08-06] MEDS: CALCIUM CARBONATE 500 MG CHEWABLE PO SCH ×3 (08:15→20:01)
[2017-08-06] MEDS: FUROSEMIDE 40 MG TAB PO SCH (08:16)
[2017-08-06] MEDS: CALCITRIOL 0.25 MCG CAP PO SCH (08:16)
[2017-08-06] MEDS: METOPROLOL TARTRATE 100 MG TAB PO SCH ×2 (08:16→20:01)
[2017-08-06] MEDS: INSULIN HUMAN NPH SC SCH (08:18)
[2017-08-06] MEDS: FENTANYL PATCH REMOVE & WASTE SCH (08:20)
[2017-08-06] MEDS: BOOST GLUCOSE CONTROL PO SCH ×2 (10:13→20:00)
[2017-08-06] MEDS ORDERED: FUROSEMIDE INJ 120 MG in SYRINGE 0 ML IV ONE (10:45)
--- NOTE | 2017-08-06 10:55 | Pharmacy Progress Note ---
Pharmacy Glycemic Short Note 2 Date of Service Aug 06, 2017. ASSESSMENT: * See previous progress notes for more background info, in short: * Pt receiving SQ basal bolus insulin regimen for hyperglycemia secondary to baseline DM (outpatient regimen on hold),stress/infection, recent surgery, steroids * Steroids tapered to Prednisone 20mg PO BIDM since 07/31/18 * Patient's BSGs have been very labile and difficult to control secondary to dialysis, fluctuating PO intake, and prednisone. * Patient has been receiving 16-52 units of insulin per day. * BSGs over the past 24 hrs: 129, 116, 100, 143, 189, 218, 224 * [facility] discussed lows and insulin regimen with patient on 08/03/17 * BSGs are well controlled throughout the day but then rise from overnight to AM fasting. It is likely that Lantus is not lasting a full 24hrs for patient. Patient received 3 units of correctional insulin at 0000 & 0400 indicating that more overnight basal insulin is needed. Hesitant to add more Lantus to the dose (patient has had lows with increased dose) and hesitant to change Lantus to BID (patient has had lows with BID Lantus). Instead, I will change from Lantus to NPH BID. NPH has a kinetic profile that matches that of prednisone's hyperglycemic effect. NPH is shorter acting than Lantus, therefore, "stacking" and subsequent hypoglycemia should not occur. * Will start with basal insulin change from Lantus to NPH and re-evaluate. If needed, will adjust CF/CR based on BSG trends. PLAN FOR INPATIENT GLYCEMIC CONTROL: * Basal insulin * D.C Lantus * Start NPH 12 units SQ daily in AM with breakfast + 5 units daily in PM with dinner * Bolus insulin : no change * NovoLog per scale ACHS + in between meal checks per patient request and 00,04 * Goal Range: Low 120 mg/dL - High 160 mg/dL * Correction Factor: 25 mg/dL/unit * Nutritional / Prandial insulin per carb ratio of 1 unit per 10 grams CHO consumed
--- NOTE | 2017-08-06 11:39 | Nephrology Progress Note ---
Nephrology Progress Note Date of Service Aug 06, 2017. Chief Complaint Follow-up for end-stage renal disease on hemodialysis. Roland Causey was seen and examined in his room this morning. Feels tired but otherwise denies any episode of fever, chills or significant shortness of breath. Blood pressure relatively stable. Review of Systems A complete review of systems was performed. Pertinent positives are noted above. All other systems are negative. Vital Signs Last 8 Hrs Date Time Temp Pulse Resp B/P (MAP) Pulse Ox O2 Delivery O2 Flow Rate FiO2 08/06/17 10:04 36.8 112 16 152/78 88 15.0 08/06/17 08:00 Oxymask 15.0 08/06/17 07:34 93 18 96 Mask 15.0 08/06/17 07:22 37.1 95 20 142/70 (94) 92 15.0 08/06/17 04:22 37.2 101 20 138/67 (90) 90 Oxymask 15.0 08/06/17 04:00 Oxymask 15.0 BiPAP Last Recorded Weight Weight (Kilograms): 83.400 Physical Exam GENERAL: Middle-aged may, AAA x 3, pleasant, pale, ill-appearing, not in any distress. NECK: Supple, no JVD. RESPIRATORY: Crackles bilaterally, no wheezes, CARDIOVASCULAR: S1, S2 normal, rate rhythm regular. EXTREMITY: Edema bilateral both upper and lower extremity NEURO: speech fluent. PSYCHIATRY: Normal mood and judgment Family History Cervical cancer Diabetes mellitus Heart disease Hypertension Myocardial infarction Pancreatic cancer Prostate cancer Negative for CKD/ESRD Social History Smokeless Tobacco Use: No Alcohol Use: none Drug Use: none Marital Status: single Housing Status: lives alone Occupation: disabled Single, retired. Formerly worked for [employer]. Never a smoker. Laboratory Results Past 24 Hours 08/06/17 04:17 08/06/17 06:03 08/06/17 04:17 Test 08/05/17 11:17 08/05/17 13:51 08/05/17 16:10 08/05/17 20:03 Bedside Glucose 116 mg/dl (70-99) 100 mg/dl (70-99) 117 mg/dl (70-99) 143 mg/dl (70-99) Test 08/06/17 00:04 08/06/17 03:52 1/14/18 04:17 08/06/17 06:53 Bedside Glucose 189 mg/dl (70-99) 218 mg/dl (70-99) 224 mg/dl (70-99) Red Blood Count 2.21 M/uL (4.7-6.1) Mean Corpuscular Volume 93.7 fL (80-100) Mean Corpuscular Hemoglobin 29.4 pg (25-34) Mean Corpuscular Hemoglobin Concent 31.4 g/dl (32-36) RDW Standard Deviation 68.0 fL (36.4-46.3) RDW Coefficient of Variation 20.4 % (11.5-14.5) Mean Platelet Volume 11.1 fL (7.4-10.4) Nucleated RBC Absolute Count (auto) 0.12 K/uL (0-0) Nucleated Red Blood Cells % 0.7 % Anion Gap 6.0 mmol/L (3-11) Est Creatinine Clear Calc Drug Dose 24.3 ml/min Estimated GFR () 22.6 Estimated GFR (Non- 19.5 BUN/Creatinine Ratio 19.1 (10-20) Calcium Level 7.7 mg/dl (8.5-10.1) Allergies Coded Allergies: Iodinated Diagnostic Agents (Verified Allergy, Unknown, oil based, severe headaches, 06/20/17) EVENT OCCURED IN 1971, PT STATES HE HAS HAD 3 DIFFERENT WATER BASED IVP DYES WITH NO ISSUE Medications Current Inpatient Medications Medications (Trade) Dose Ordered Sig/Edward Route Start Time Stop Time Status Last Admin Dose Admin Ondansetron HCl (Zofran Inj) 4 mg Q4H PRN IV 07/11/17 03:00 08/10/17 02:59 08/04/17 15:58 4 MG Prochlorperazine Edisylate 5 mg/ Syringe 5 ml @ 5 mls/min Q4H PRN IV 07/11/17 14:00 08/10/17 13:59 Lactulose (Chronulac Syrup) 30 gm Q4H PRN PO 07/11/17 16:45 08/10/17 16:44 Miscellaneous (Fentanyl Patch Remove & Waste) 1 ea Q3D@0859 N/A 07/22/17 08:59 08/21/17 08:58 08/06/17 08:20 1 EA Ergocalciferol (Vitamin D Cap) 50,000 interunit Q7D@0900 PO 07/20/17 09:00 08/19/17 08:59 08/03/17 08:22 50,000 INTERUNIT Hydralazine HCl (HydrALAZINE INJ) 5 mg Q4 PRN IV. 07/21/17 17:15 08/20/17 17:14 Future Hold 07/25/17 23:45 5 MG Hydralazine HCl (HydrALAZINE INJ) 5 mg TID IV. 07/21/17 21:00 08/20/17 20:59 Future Hold 07/30/17 08:33 5 MG Miscellaneous Information (Consult Glycemic Management Pharmacy) 1 ea UD PRN N/A 07/23/17 13:14 08/22/17 13:13 Morphine Sulfate (MoRPHine SULFATE INJ) 2 mg Q3RWA PRN IV 07/24/17 11:30 08/07/17 11:29 08/05/17 05:52 2 MG Caspofungin 50 mg/ Sodium Chloride 260 ml @ 250 mls/hr Q24H IV 07/28/17 12:00 08/06/17 11:59 08/05/17 13:20 250 MLS/HR Insulin Aspart (novoLOG ASPART) SLIDING SCALE G... ACHS SC 07/27/17 11:30 08/26/17 11:29 08/06/17 08:20 4 UNITS Methadone HCl (Dolophine Tab) 20 mg BID PO 07/28/17 21:00 08/08/17 08:59 08/06/17 08:15 20 MG Ipratropium [place] (Atrovent 0.02% 0.5MG/2.5ML Neb) 0.5 mg Q6R INH 07/29/17 09:00 08/28/17 08:59 08/06/17 07:28 0.5 MG Levalbuterol (Xopenex 0.63 Mg/ 3 Ml Neb) 0.63 mg Q6R INH 07/29/17 09:00 08/28/17 08:59 08/06/17 07:28 0.63 MG Metoprolol Tartrate (Lopressor Tab) 100 mg BID PO 07/29/17 21:00 08/28/17 20:59 08/06/17 08:16 100 MG Amlodipine Besylate (Norvasc Tab) 10 mg QAM PO 07/30/17 09:00 08/29/17 08:59 08/06/17 08:15 10 MG Diphenhydramine HCl (Benadryl Inj) 50 mg 4XDQ4H PRN IV 07/30/17 13:30 08/29/17 13:29 Heparin Sodium (Porcine) (Heparin Sq 5000 Unit/0.5ml) 5,000 unit Q8 SQ 07/30/17 22:00 08/29/17 21:59 08/06/17 06:35 5,000 UNIT Prednisone (PredniSONE TAB) 20 mg BIDM PO 07/31/17 07:30 08/30/17 07:29 08/06/17 08:16 20 MG Furosemide (Lasix Tab) 40 mg QAM PO 08/01/17 09:00 08/31/17 08:59 08/06/17 08:16 40 MG Calcitriol (Rocaltrol Cap) 0.25 mcg Q2D@0900 PO 08/02/17 09:00 09/01/17 08:59 08/06/17 08:16 0.25 MCG Calcium Carbonate (Tums Chew Tab) 500 mg TID PO 08/02/17 09:00 09/01/17 08:59 08/06/17 08:15 500 MG Enteral Nutritional Formula (Boost Glucose Control) 1 can BID@1000,2100 PO 08/01/17 21:00 08/31/17 20:59 08/04/17 20:22 1 CAN Insulin Human NPH (novoLIN-N NPH) 12 units QDB SC 08/06/17 07:30 09/05/17 07:29 08/06/17 08:18 12 UNITS Insulin Human NPH (novoLIN-N NPH) 5 units QDD SC 08/06/17 16:45 09/05/17 16:44 Impression (1) Cellulitis of left hand (2) ESRD (end stage renal disease) on dialysis (3) Renal cell carcinoma (4) Anemia (5) Diabetes type 2, controlled Mr. Christy has ESRD and metastatic RCC. He underwent left nephrectomy in 2015. Patient did not tolerate Sutent due to high grade proteinuria; Opdivo caused arthralgia, colitis and possible pneumonitis. He was most recently treated w/ Cabometyx. This was complicated by abdominal wall hematoma a intestinal perforation. 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 Mr. Christy was admitted with persistent soft tissue infection of the left hand and has been in hospital for last almost a month to was complicated by multiple issues. Patient tested positive for C. Difficile colitis. On 07/21 Mr. Christy was diagnosed with intestinal perforation and required emergency laparotomy for perforated jejunal diverticulum. Partial colectomy w/ reanastomosis was completed. Had Fistulogram for prolonged bleeding after dialysis, found to have high- grade venous outflow stenosis and had coil embolization done on 07/25/16. Mr. Christy developed acute hypoxic respiratory failure and respiratory distress requiring NIPPV. Heparin gtt started for suspected PE, however CTA was negative and heparin was discontinued. Currently recovering from the surgery however still extremely Deconditioned, started on physical therapy and tentative plan to go [facility] Recommendations --hemoglobin dropped further to 6.9, agree with 1 unit of blood transfusion, will monitor volume status as he just had dialysis yesterday unless there is any emergency need for dialysis --since patient continues to make urine will give 1 dose of Lasix 120 milligram IV --discussed with on-call dialysis nurse to keep patient on scheduled for hemodialysis tomorrow morning -- Protect LUE AVF -- Epogen with dialysis -- resume Calcitriol and CaCO3. -- continue physical therapy as patient waiting for rehab discharge. Will follow
[2017-08-06] MEDS: MoRPHine SULFATE 2 MG/ML CARP IV PRN (13:50)
--- NOTE | 2017-08-06 14:24 | Progress Note ---
Subjective Date of Service: Aug 06, 2017. Subjective Pt evaluation today including: conversation w/ patient, physical exam, lab review, conversation w/ exchange consultant, review of inpatient medication list Pain: no pain PO Intake: improving Voiding: no voiding problems patient's breathing is better, more comfortable today reviewed labs, Hb down to 6.9, patient agreeable to transfusion discussed with Dr. Norwood about transfusion, will give one unit, give Lasix 120mg IV pain controlled eating better Problem List Medical Problems: (1) Acute dyspnea Status: Acute (2) Chronic kidney disease Status: Acute (3) Failure of outpatient treatment Status: Acute (4) Left arm cellulitis Status: Acute (5) Renal cell carcinoma Status: Acute Review of Systems Constitutional: + weakness, + fatigue Respiratory: + cough, + shortness of breath Cardiac: + edema Neurologic: + weakness All Other Systems: Reviewed and Negative Medications Current Inpatient Medications Medications (Trade) Dose Ordered Sig/Edward Route Start Time Stop Time Status Last Admin Dose Admin Ondansetron HCl (Zofran Inj) 4 mg Q4H PRN IV 07/11/17 03:00 08/10/17 02:59 08/04/17 15:58 4 MG Prochlorperazine Edisylate 5 mg/ Syringe 5 ml @ 5 mls/min Q4H PRN IV 07/11/17 14:00 08/10/17 13:59 Lactulose (Chronulac Syrup) 30 gm Q4H PRN PO 07/11/17 16:45 08/10/17 16:44 Miscellaneous (Fentanyl Patch Remove & Waste) 1 ea Q3D@0859 N/A 07/22/17 08:59 08/21/17 08:58 08/06/17 08:20 1 EA Ergocalciferol (Vitamin D Cap) 50,000 interunit Q7D@0900 PO 07/20/17 09:00 08/19/17 08:59 08/03/17 08:22 50,000 INTERUNIT Hydralazine HCl (HydrALAZINE INJ) 5 mg Q4 PRN IV. 07/21/17 17:15 08/20/17 17:14 Future Hold 07/25/17 23:45 5 MG Hydralazine HCl (HydrALAZINE INJ) 5 mg TID IV. 07/21/17 21:00 08/20/17 20:59 Future Hold 07/30/17 08:33 5 MG Miscellaneous Information (Consult Glycemic Management Pharmacy) 1 ea UD PRN N/A 07/23/17 13:14 08/22/17 13:13 Morphine Sulfate (MoRPHine SULFATE INJ) 2 mg Q3RWA PRN IV 07/24/17 11:30 08/07/17 11:29 08/06/17 13:50 2 MG Insulin Aspart (novoLOG ASPART) SLIDING SCALE G... ACHS SC 07/27/17 11:30 08/26/17 11:29 08/06/17 12:11 7 UNITS Methadone HCl (Dolophine Tab) 20 mg BID PO 07/28/17 21:00 08/08/17 08:59 08/06/17 08:15 20 MG Ipratropium [place] (Atrovent 0.02% 0.5MG/2.5ML Neb) 0.5 mg Q6R INH 07/29/17 09:00 08/28/17 08:59 08/06/17 07:28 0.5 MG Levalbuterol (Xopenex 0.63 Mg/ 3 Ml Neb) 0.63 mg Q6R INH 07/29/17 09:00 08/28/17 08:59 08/06/17 07:28 0.63 MG Metoprolol Tartrate (Lopressor Tab) 100 mg BID PO 07/29/17 21:00 08/28/17 20:59 08/06/17 08:16 100 MG Amlodipine Besylate (Norvasc Tab) 10 mg QAM PO 07/30/17 09:00 08/29/17 08:59 08/06/17 08:15 10 MG Diphenhydramine HCl (Benadryl Inj) 50 mg 4XDQ4H PRN IV 07/30/17 13:30 08/29/17 13:29 Heparin Sodium (Porcine) (Heparin Sq 5000 Unit/0.5ml) 5,000 unit Q8 SQ 07/30/17 22:00 08/29/17 21:59 08/06/17 13:44 5,000 UNIT Prednisone (PredniSONE TAB) 20 mg BIDM PO 07/31/17 07:30 08/30/17 07:29 08/06/17 08:16 20 MG Furosemide (Lasix Tab) 40 mg QAM PO 08/01/17 09:00 08/31/17 08:59 08/06/17 08:16 40 MG Calcitriol (Rocaltrol Cap) 0.25 mcg Q2D@0900 PO 08/02/17 09:00 09/01/17 08:59 08/06/17 08:16 0.25 MCG Calcium Carbonate (Tums Chew Tab) 500 mg TID PO 08/02/17 09:00 09/01/17 08:59 08/06/17 13:42 500 MG Enteral Nutritional Formula (Boost Glucose Control) 1 can BID@1000,2100 PO 08/01/17 21:00 08/31/17 20:59 08/06/17 10:13 1 CAN Insulin Human NPH (novoLIN-N NPH) 12 units QDB SC 08/06/17 07:30 09/05/17 07:29 08/06/17 08:18 12 UNITS Insulin Human NPH (novoLIN-N NPH) 5 units QDD SC 08/06/17 16:45 09/05/17 16:44 Vitamin B Complex/ Vit C/Folic Acid (Nephrocaps) 1 cap QAM PO 08/07/17 09:00 09/06/17 08:59 Objective Vital Signs Date Time Temp Pulse Resp B/P (MAP) Pulse Ox O2 Delivery O2 Flow Rate FiO2 08/06/17 12:00 Oxymask 15.0 08/06/17 12:00 36.9 89 16 155/72 92 15.0 08/06/17 11:30 36.7 96 16 148/65 92 08/06/17 11:24 36.7 97 18 156/70 (98) 91 15.0 08/06/17 11:00 36.8 96 16 142/68 92 08/06/17 10:45 36.7 89 12 155/71 92 08/06/17 10:30 36.8 94 16 138/79 95 15.0 08/06/17 10:15 36.7 98 16 158/75 91 08/06/17 10:04 36.8 112 16 152/78 88 15.0 08/06/17 08:00 Oxymask 15.0 08/06/17 07:34 93 18 96 Mask 15.0 1/14/18 07:22 37.1 95 20 142/70 (94) 92 15.0 08/06/17 04:22 37.2 101 20 138/67 (90) 90 Oxymask 15.0 08/06/17 04:00 Oxymask 15.0 BiPAP 08/06/17 02:08 92 22 96 BiPAP/CPAP 08/06/17 00:00 Oxymask 15.0 BiPAP 08/05/17 23:46 37.5 107 20 139/67 (91) 88 Oxymask 15.0 08/05/17 20:00 Oxymask 15.0 BiPAP 08/05/17 19:30 37.0 111 22 143/66 (91) 91 Oxymask 15.0 08/05/17 19:10 105 22 95 Mask 15.0 08/05/17 16:00 BiPAP 80 08/05/17 15:32 36.8 107 22 167/68 (101) 95 Oxymask 15.0 08/05/17 14:32 88 24 96 Mask 15.0 Physical Exam General Appearance: WD/WN, no apparent distress Eyes: normal inspection, EOMI, sclerae normal Neck: supple, no adenopathy, no JVD, trachea midline Respiratory/Chest: chest non-tender, no respiratory distress, no accessory muscle use, + rhonchi Cardiovascular: regular rate, rhythm, no gallop, no JVD, no murmur Abdomen: normal bowel sounds, non tender, soft, no organomegaly Extremities: normal range of motion, non-tender, normal inspection, no calf tenderness, pelvis stable, + pedal edema (pitting bilaterally) Neurologic/Psychiatric: 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-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 nml as tested, alert, normal mood/affect, oriented x 3, + motor weakness (profound, cannot transfer independently) Skin: normal color, warm/dry, no rash Laboratory Results Last 24 Hours Test 08/05/17 16:10 08/05/17 20:03 08/06/17 00:04 08/06/17 03:52 Bedside Glucose 117 mg/dl 143 mg/dl 189 mg/dl 218 mg/dl Test 08/06/17 04:17 08/06/17 06:03 08/06/17 06:53 08/06/17 11:09 White Blood Count 16.10 K/uL Red Blood Count 2.21 M/uL Hemoglobin 6.5 g/dL 6.9 g/dL Hematocrit 20.7 % 20.7 % Mean Corpuscular Volume 93.7 fL Mean Corpuscular Hemoglobin 29.4 pg Mean Corpuscular Hemoglobin Concent 31.4 g/dl RDW Standard Deviation 68.0 fL RDW Coefficient of Variation 20.4 % Platelet Count 118 K/uL Mean Platelet Volume 11.1 fL Nucleated RBC Absolute Count (auto) 0.12 K/uL Nucleated Red Blood Cells % 0.7 % Sodium Level 134 mmol/L Potassium Level 5.3 mmol/L Chloride Level 97 mmol/L Carbon Dioxide Level 31 mmol/L Anion Gap 6.0 mmol/L Blood Urea Nitrogen 61 mg/dl Creatinine 3.21 mg/dl Est Creatinine Clear Calc Drug Dose 24.3 ml/min Estimated GFR () 22.6 Estimated GFR (Non- 19.5 BUN/Creatinine Ratio 19.1 Random Glucose 209 mg/dl Calcium Level 7.7 mg/dl Bedside Glucose 224 mg/dl 196 mg/dl Assessment and Plan Mr. Christy is a 61 y/o M with PMH of ESRD on HD, RCC, DMII. Admitted for L hand cellulitis having failed outpatient management. Abdominal pain, found to have incidental rectus sheath hematoma, C.diff positive colitis and subsequent bowel perforation on 07/21, now s/p colectomy, anemia, and bilateral pneumonia on imaging. C. diff colitis, perforated jejunal bowel (suspected to result from chemo regimen) s/p colectomy, rectus sheath hematoma: - Surgical management as per surgery- POD #14: -- TPN completed on 07/29/17 - Currently on mechanical soft diet, eating more - Underlying severe protein malnutrition, albumin 1.2 yesterday, continue Boost - C.Diff + 07/12/17: Completed 9 days of PO Vancomycin - C. glabratum growth- ID recommending Caspofungin x10 days- completed on 08/06 - Pain controlled w/ Methadone and Morphine IV PRN Metastatic RCC s/p L nephrectomy, chronic pain: - Oncology following- holding treatment at this time due to acute issues- f/u outpatient - Palliative care following- appreciate recommendations for pain control- Methadone, Fentanyl, and Morphine PRN ESRD HD, secondary to RCC/ s/p left nephrectomy - Nephrology following , HD performed 08/05 - 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 on 07/23 - Vascular surgery consulted- s/p AVR repair on 07/25/17 - Hypocalcemia w/ vitamin D level of 9.4: Ergocalciferol 50,000 q7d indefinitely + daily D3 1999 when patient resumes oral intake- recheck levels in 12 weeks ESRD bone mineral disease: Resume Calcitriol and CaCO3 Left hand cellulitis- RESOLVED: - Initial MRI did not determine any osteomyelitis - ID consulted: treated initially with Ertapenem/Daptomycin, then transitioned to Cefepime- treated 07/22- 07/30 Acute hypoxia respiratory failure, ?secondary to pulmonary edema vs cryptogenic organizing pneumonia/drug related pneumonitis: - Continue O2 supplementation to maintain SaO2 >92%, wean as tolerated - on BIPAP this AM and while on HD, typically more fatigued these days, needs to sit upright afterwards - Started on heparin drip on 07/26 for presumed PE- CTA 07/30/17 negative for PE, thus heparin drip stopped - Large R pleural effusion s/p thoracentesis completed 07/30/17- pleural pathology w/ no malignancy, pleural cultures growing yeast- on IV Caspofungin - IV Solu-Medrol- transitioned to Prednisone 20 mg BID on 07/31, taper per pulmonology - DuoNebs QID and PRN - Pulmonary following -- Think poor respiratory status is secondary to inactivity- encouraged incentive spirometer, OOB in chair throughout day, working w/ PT -- OOB yesterday for a while, work to get OOB again today DMII: - BSG ACHS and ISS - Pharmacy consulted for glycemic management- on Lantus sliding scale Acute anemia- transfused a total of 7 u PRBCs: - Nephrology following- Epogen with dialysis - H&H- Hb 6.9 today, will give one unit, give Lasix 120mg IV x 1, watch for any pulmonary edema HTN, HLD: - Furosemide 40 mg PO daily, Amlodipine 10 mg daily, Metoprolol 100 mg PO BID, Lisinopril 40 mg daily - Hydralazine 100 mg TID held- BPs well controlled at this time - Monitor I&Os and daily weights - Simvastatin 20 mg HS held due to NPO status- will resume once tolerating regular diet BPH: Tamsulosin 0.4 mg PO daily DVT Prophylaxis: Heparin SQ TID Code Status: LEVEL I, FULL Dispo: Discharge uncertain- planning for [facility] at discharge- PT/OT and CM consulted Continued [facility] stay due to: inadequate po fluid intake, ambulation difficulties , other (requiring O2 at 8-10 L and BiPAP) Discharge planning: rehab hospital, other (hope to be able to transfer to rehab when medically stable)
[2017-08-06] MEDS ORDERED: INSULIN GLARGINE SOLOSTAR 100 UNITS/ML 3 ML PEN SC SCH (16:45)
[2017-08-06] MEDS ORDERED: INSULIN HUMAN NPH SC SCH (16:45)
[2017-08-07] VITALS (29 sets, daily range): BP systolic 132–200; BP diastolic 59–97; PULSE 87–114; TEMP 36.6–37.1; O2SAT 88–97
[2017-08-07] MEDS: IPRATROPIUM BROMIDE NEB SOLN 0.02% 2.5 ML VIAL INH SCH ×4 (01:46→21:00)
[2017-08-07] MEDS: LEVALBUTEROL 0.63MG/3 ML NEB INH SCH ×4 (01:46→21:00)
[2017-08-07] MEDS: HEPARIN SOD 5000 UNIT/0.5 ML CARP SQ SCH ×3 (06:22→21:40)
[2017-08-07] MEDS: METOPROLOL TARTRATE 100 MG TAB PO SCH ×2 (07:54→21:38)
[2017-08-07] MEDS: CALCIUM CARBONATE 500 MG CHEWABLE PO SCH ×3 (07:54→21:39)
[2017-08-07] MEDS: NEPHROCAPS PO SCH (07:54)
[2017-08-07] MEDS: AMLODIPINE BESYLATE 5 MG TAB PO SCH (07:54)
[2017-08-07] MEDS: FUROSEMIDE 40 MG TAB PO SCH (07:54)
[2017-08-07] MEDS: METHADONE HCL 10 MG TAB PO SCH ×2 (07:55→21:37)
[2017-08-07] MEDS: INSULIN ASPART 100 UNITS/ML 3 ML PEN SC SCH ×4 (07:58→21:00)
[2017-08-07] MEDS: INSULIN HUMAN NPH SC SCH ×2 (08:00→16:54)
[2017-08-07 08:52] LABS: HEMATOCRIT 26.3 % (42-52); HEMOGLOBIN 8.8 g/dL (14.0-18.0); MEAN CELL VOLUME 93.3 fL (80-100); MEAN CORPUSCULAR HEMOGLOBIN 31.2 pg (25-34); MEAN PLATELET VOLUME 11.7 fL (7.4-10.4); NUCLEATED RED BLOOD CELL ABS 0.22 K/uL (0-0); PLATELET COUNT 124 K/uL (130-400); RED CELL DISTRIBUTION WIDTH CV 18.5 % (11.5-14.5); RED CELL DISTRIBUTION WIDTH SD 60.7 fL (36.4-46.3); WHITE BLOOD COUNT 17.89 K/uL (4.8-10.8)
[2017-08-07 08:56] LABS: MEAN CORPUSCULAR HGB CONC 33.5 g/dl (32-36)
[2017-08-07] MEDS: BOOST GLUCOSE CONTROL PO SCH ×2 (09:52→17:52)
--- NOTE | 2017-08-07 10:43 | Pharmacy Progress Note ---
Pharmacy Glycemic Short Note 2 Date of Service Aug 07, 2017. ASSESSMENT: * Pt receiving SQ basal bolus insulin regimen for hyperglycemia secondary to baseline DM,stress/infection, recent surgery, steroids * Steroids tapered to Prednisone 20mg PO BIDM since 07/31/18 * Patient's BSGs have been very labile and difficult to control secondary to dialysis, fluctuating PO intake, and prednisone 20mg PO BIDM. * Patient has been receiving 16-52 units of insulin per day. * BSGs over the past 24 hrs: 224, 196, 156, 236, 218 * 08/06/17: Changed basal insulin from Lantus to NPH. BID basal insulin was needed to improve AM fasting BSGs, however, Lantus BID had caused lows for patient 08/02/17 & 08/03/17. Additionally, NPH has a kinetic profile that matches that of prednisone's hyperglycemic effect. NPH is shorter acting than Lantus, therefore, "stacking" and subsequent hypoglycemia should not occur. Recommending dosing of NPH to cover 20mg of prednisone would be 0.2 units/kg ( 17 units). However, started significantly more conservatively secondary to frequent hypo a few days ago. Kept CF/CR somewhat aggressive to make up the difference. * 08/07/17: AM fasting BSG still elevated despite the addition of NPH in the evening. Dosing initiated very conservatively at 5 units to prevent hypoglycemia. Will continue to titrate PM dose of NPH for better HS and AM BSG control. Will tighten CF/CR for better post-prandial control. PLAN FOR INPATIENT GLYCEMIC CONTROL: Maintain BSGs in the 150-250mg/dl range. This is considered adequate control for patient based on prognosis. * Basal insulin * NPH 12 units SQ daily in AM with breakfast + increase PM/dinner dose from 5 to 8 units * Bolus insulin: tighten CR * NovoLog per scale ACHS + in between meal checks per patient request and 00,04 * Goal Range: Low 120 mg/dL - High 160 mg/dL * Correction Factor: 25 mg/dL/unit * Nutritional / Prandial insulin per carb ratio of 1 unit per 8 grams CHO consumed
--- NOTE | 2017-08-07 11:22 | Nephrology Progress Note ---
Nephrology Progress Note Date of Service Aug 07, 2017. Chief Complaint Provide inpatient HD and assist w/ medical management of this patient w/ ESRD Subjective Mr. Christy was seen & examined in his hospital room this morning in preparation for HD. He is tolerating a regular diet. He reports that his incisional discomfort is controlled w/ medications. Mr. Christy's only concern is weakness. He would like to sit in a chair today and later begin physical therapy. Review of Systems Constitutional: No fever Cardiovascular: No chest pain Respiratory: No dyspnea at rest Abdomen: No nausea, No vomiting Extremities: No leg edema A complete review of systems was performed. Pertinent positives are noted above. All other systems are negative. Vital Signs Last 8 Hrs Date Time Temp Pulse Resp B/P (MAP) Pulse Ox O2 Delivery O2 Flow Rate FiO2 08/07/17 10:45 114 165/84 08/07/17 10:30 95 176/81 08/07/17 10:15 99 160/64 08/07/17 10:00 104 187/86 08/07/17 09:45 94 173/83 08/07/17 09:30 94 175/81 08/07/17 09:15 98 185/79 08/07/17 09:00 93 184/87 08/07/17 08:50 96 188/93 08/07/17 08:45 36.8 97 196/75 (115) 08/07/17 08:00 Oxymask 15.0 08/07/17 07:32 91 18 88 Mask 15.0 08/07/17 07:28 36.6 87 18 175/78 (110) 90 15.0 08/07/17 04:15 Oxymask 15.0 08/07/17 04:06 36.8 89 22 157/74 (101) 96 BiPAP 50 Last Recorded Weight Weight (Kilograms): 86.800 Physical Exam General Appearance: no apparent distress Head: normocephalic, atraumatic Eyes: PERRL, EOMI Neck: no adenopathy Respiratory/Chest: lungs clear, no respiratory distress Cardiovascular: regular rate, rhythm Abdomen/GI: normal bowel sounds, non tender, soft Extremities/Musculoskelatal: no calf tenderness, + pertinent finding (trace pretibial pitting edema. L upper arm AVF + bruit) Neurologic/Psych: alert, oriented x 3 Family History Cervical cancer Diabetes mellitus Heart disease Hypertension Myocardial infarction Pancreatic cancer Prostate cancer Negative for CKD/ESRD Social History Smokeless Tobacco Use: No Alcohol Use: none Drug Use: none Marital Status: single Housing Status: lives alone Occupation: disabled Single, retired. Formerly worked for [employer]. Never a smoker. Laboratory Results Past 24 Hours 08/07/17 08:36 Test 08/06/17 11:09 08/06/17 16:12 08/06/17 20:17 08/07/17 06:37 Bedside Glucose 196 mg/dl (70-99) 152 mg/dl (70-99) 236 mg/dl (70-99) 218 mg/dl (70-99) Test 08/07/17 08:36 Red Blood Count 2.82 M/uL (4.7-6.1) Mean Corpuscular Volume 93.3 fL (80-100) Mean Corpuscular Hemoglobin 31.2 pg (25-34) Mean Corpuscular Hemoglobin Concent 33.5 g/dl (32-36) RDW Standard Deviation 60.7 fL (36.4-46.3) RDW Coefficient of Variation 18.5 % (11.5-14.5) Mean Platelet Volume 11.7 fL (7.4-10.4) Nucleated RBC Absolute Count (auto) 0.22 K/uL (0-0) Nucleated Red Blood Cells % 1.2 % Allergies Coded Allergies: Iodinated Diagnostic Agents (Verified Allergy, Unknown, oil based, severe headaches, 06/20/17) EVENT OCCURED IN 1971, PT STATES HE HAS HAD 3 DIFFERENT WATER BASED IVP DYES WITH NO ISSUE Medications Current Inpatient Medications Medications (Trade) Dose Ordered Sig/Edward Route Start Time Stop Time Status Last Admin Dose Admin Ondansetron HCl (Zofran Inj) 4 mg Q4H PRN IV 07/11/17 03:00 08/10/17 02:59 08/04/17 15:58 4 MG Prochlorperazine Edisylate 5 mg/ Syringe 5 ml @ 5 mls/min Q4H PRN IV 07/11/17 14:00 08/10/17 13:59 Lactulose (Chronulac Syrup) 30 gm Q4H PRN PO 07/11/17 16:45 08/10/17 16:44 Miscellaneous (Fentanyl Patch Remove & Waste) 1 ea Q3D@0859 N/A 07/22/17 08:59 08/21/17 08:58 08/06/17 08:20 1 EA Ergocalciferol (Vitamin D Cap) 50,000 interunit Q7D@0900 PO 07/20/17 09:00 08/19/17 08:59 08/03/17 08:22 50,000 INTERUNIT Hydralazine HCl (HydrALAZINE INJ) 5 mg Q4 PRN IV. 07/21/17 17:15 08/20/17 17:14 Future Hold 07/25/17 23:45 5 MG Hydralazine HCl (HydrALAZINE INJ) 5 mg TID IV. 07/21/17 21:00 08/20/17 20:59 Future Hold 07/30/17 08:33 5 MG Miscellaneous Information (Consult Glycemic Management Pharmacy) 1 ea UD PRN N/A 07/23/17 13:14 08/22/17 13:13 Morphine Sulfate (MoRPHine SULFATE INJ) 2 mg Q3RWA PRN IV 07/24/17 11:30 08/07/17 11:29 08/06/17 13:50 2 MG Insulin Aspart (novoLOG ASPART) SLIDING SCALE G... ACHS SC 07/27/17 11:30 08/26/17 11:29 08/07/17 07:58 14 UNITS Methadone HCl (Dolophine Tab) 20 mg BID PO 07/28/17 21:00 08/08/17 08:59 08/07/17 07:55 20 MG Ipratropium [place] (Atrovent 0.02% 0.5MG/2.5ML Neb) 0.5 mg Q6R INH 07/29/17 09:00 08/28/17 08:59 08/07/17 07:22 0.5 MG Levalbuterol (Xopenex 0.63 Mg/ 3 Ml Neb) 0.63 mg Q6R INH 07/29/17 09:00 08/28/17 08:59 08/07/17 07:22 0.63 MG Metoprolol Tartrate (Lopressor Tab) 100 mg BID PO 07/29/17 21:00 08/28/17 20:59 08/07/17 07:54 100 MG Amlodipine Besylate (Norvasc Tab) 10 mg QAM PO 07/30/17 09:00 08/29/17 08:59 08/07/17 07:54 10 MG Diphenhydramine HCl (Benadryl Inj) 50 mg 4XDQ4H PRN IV 07/30/17 13:30 08/29/17 13:29 Heparin Sodium (Porcine) (Heparin Sq 5000 Unit/0.5ml) 5,000 unit Q8 SQ 07/30/17 22:00 08/29/17 21:59 08/07/17 06:22 5,000 UNIT Prednisone (PredniSONE TAB) 20 mg BIDM PO 07/31/17 07:30 08/30/17 07:29 08/07/17 07:54 20 MG Furosemide (Lasix Tab) 40 mg QAM PO 08/01/17 09:00 08/31/17 08:59 08/07/17 07:54 40 MG Calcitriol (Rocaltrol Cap) 0.25 mcg Q2D@0900 PO 08/02/17 09:00 09/01/17 08:59 08/06/17 08:16 0.25 MCG Calcium Carbonate (Tums Chew Tab) 500 mg TID PO 08/02/17 09:00 09/01/17 08:59 08/07/17 07:54 500 MG Enteral Nutritional Formula (Boost Glucose Control) 1 can BID@1000,2100 PO 08/01/17 21:00 08/31/17 20:59 08/07/17 09:52 1 CAN Insulin Human NPH (novoLIN-N NPH) 12 units QDB SC 08/06/17 07:30 09/05/17 07:29 08/07/17 08:00 12 UNITS Vitamin B Complex/ Vit C/Folic Acid (Nephrocaps) 1 cap QAM PO 08/07/17 09:00 09/06/17 08:59 08/07/17 07:54 1 CAP Insulin Human NPH (novoLIN-N NPH) 8 units QDD SC 08/07/17 16:45 09/06/17 16:44 Impression (1) Cellulitis of left hand (2) ESRD (end stage renal disease) on dialysis (3) Renal cell carcinoma (4) Anemia (5) Diabetes type 2, controlled Mr. Christy had metastatic RCCA. He underwent left nephrectomy 2015. He did not tolerate Sutent due to high grade proteinuria. Opdivo caused arthralgia, colitis and possible pneumonitis. He was most recently treated w/ Cabometyx. 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 Colonic reanastamosis was performed at the time of surgery. The patient has a complex medical history including persistent soft tissue infection of the left hand, C. Difficile colitis, metastatic RCCA, interstitial lung disease requiring steroid therapy Mr. Christy's dialysis has been complicated by prolonged bleeding from the AVF following treatment. 07/23 doppler study revealed a high grade venous outflow stenosis. He required fistulagram and coil embolization 07/25/16. Recommendations END STAGE RENAL DISEASE: -- Will provide hemodialysis today (4hr 2K 2Ca 37HCO3 F-180 3 L UF) ANEMIA: -- Hgb dropped to 6.9. Patient was transfused 1 unit PRBC yesterday -- Hgb is now > 8.0. Patient has no active bleeding. Will monitor HYPERTENSION: -- BP is mildly elevated this am -- Continue Amlodipine -- Will monitor BP following UF on HD CKD-BMD: -- Continue Calcitriol and Ergocalciferol -- Will monitor serum calcium and vitamin D level OTHER: -- Recommend physical therapy evaluation for strengthening exercises
--- NOTE | 2017-08-07 11:48 | Palliative Care Progress Note ---
Palliative Care Progress Note Date of Service Aug 07, 2017. Subjective Pt evaluation today including: conversation w/ patient, physical exam, chart review, lab review, review of inpatient medication list Pain: controlled PO Intake: fair Voiding: no voiding problems Review of Systems Constitutional: No fever, No chills Eyes: No discharge ENT: No hearing loss Respiratory: + shortness of breath Cardiac: + edema Abdomen: + problem reported (RLQ pain due to rectal sheath hematoma, surgical incision pain improved) Musculoskeletal: No joint pain Male : No dysuria Neurologic: + weakness Psychiatric: + anxiety Heme: No abnormal bleeding/bruising Endo: + fatigue Skin: + problem reported (no change in R hand swelling or redness) Objective Vital Signs Date Time Temp Pulse Resp B/P (MAP) Pulse Ox O2 Delivery O2 Flow Rate FiO2 08/07/17 11:31 106 140/78 08/07/17 11:15 111 156/84 08/07/17 11:03 102 132/59 08/07/17 10:45 114 165/84 08/07/17 10:30 95 176/81 08/07/17 10:15 99 160/64 08/07/17 10:00 104 187/86 08/07/17 09:45 94 173/83 08/07/17 09:30 94 175/81 08/07/17 09:15 98 185/79 08/07/17 09:00 93 184/87 08/07/17 08:50 96 188/93 08/07/17 08:45 36.8 97 196/75 (115) 08/07/17 08:00 Oxymask 15.0 08/07/17 07:32 91 18 88 Mask 15.0 08/07/17 07:28 36.6 87 18 175/78 (110) 90 15.0 08/07/17 04:15 Oxymask 15.0 08/07/17 04:06 36.8 89 22 157/74 (101) 96 BiPAP 50 08/07/17 01:47 96 17 97 BiPAP/CPAP 50 08/07/17 01:47 96 97 50 08/07/17 00:30 BiPAP 08/07/17 00:04 97 92 50 08/06/17 23:37 36.7 98 23 165/82 (109) 95 BiPAP 50 08/06/17 20:00 Oxymask 15.0 BiPAP 08/06/17 19:57 36.7 102 22 155/72 (99) 89 Oxymask 15.0 08/06/17 19:29 85 18 91 Mask 15.0 08/06/17 16:00 Oxymask 15.0 08/06/17 15:46 36.4 96 22 157/64 (95) 92 Oxymask 15.0 08/06/17 14:16 94 18 96 Mask 15.0 08/06/17 12:00 Oxymask 15.0 08/06/17 12:00 36.9 89 16 155/72 92 15.0 Physical Exam General Appearance: no apparent distress (having HD) Eyes: EOMI ENT: hearing grossly normal Neck: supple Respiratory/Chest: + decreased breath sounds Cardiovascular: regular rate, rhythm Abdomen: + pertinent finding (decreased BS) Extremities: + pedal edema Neurologic/Psychiatric: + motor weakness Skin: normal color Laboratory Results Last 24 Hours Test 08/06/17 16:12 08/06/17 20:17 08/07/17 06:37 08/07/17 08:36 Bedside Glucose 152 mg/dl 236 mg/dl 218 mg/dl White Blood Count 17.89 K/uL Red Blood Count 2.82 M/uL Hemoglobin 8.8 g/dL Hematocrit 26.3 % Mean Corpuscular Volume 93.3 fL Mean Corpuscular Hemoglobin 31.2 pg Mean Corpuscular Hemoglobin Concent 33.5 g/dl RDW Standard Deviation 60.7 fL RDW Coefficient of Variation 18.5 % Platelet Count 124 K/uL Mean Platelet Volume 11.7 fL Nucleated RBC Absolute Count (auto) 0.22 K/uL Nucleated Red Blood Cells % 1.2 % Test 08/07/17 11:06 Bedside Glucose 131 mg/dl Assessment and Plan (1) Pain due to neoplasm Status: Chronic Assessment & Plan: Well controlled on methadone and Fentanyl patch, last prn morphine on 08/06 at 1350 (2) Cellulitis of left hand Status: Acute Assessment & Plan: Completed course of Caspofungin on 08/06 (3) ESRD (end stage renal disease) on dialysis Status: Acute Assessment & Plan: HD today , transfused over the weekend for hgb of 6.9 - hgb now 8.8 (4) Hypoxemia requiring supplemental oxygen Status: Acute Assessment & Plan: Improving - tolerating O2 via face mask (5) High risk medication use Status: Acute Assessment & Plan: Now of Caspofungin - no methadone adjustment needed Total time: 35 min with > 50% time spent at bedside with pt counseling regarding current POC Palliative Performance Scale: 30 % Continued [facility] stay due to: inadequate po fluid intake, ambulation difficulties , other (still with O2 requirement) Discharge planning: rehab hospital, other (hope to be able to transfer to rehab when medically stable)
[2017-08-07] MEDS ORDERED: SODIUM CHLORIDE 0.9% IV SCH (12:00)
[2017-08-07] MEDS ORDERED: DAPTOMYCIN IV SCH (12:00)
--- NOTE | 2017-08-07 12:04 | Hospitalist Progress Note ---
Hospitalist Progress Note Date of Service Aug 07, 2017. (Ledy Bhakta ., PA-C) Subjective Pt evaluation today including: conversation w/ patient, physical exam, lab review, review of studies, review of inpatient medication list Patient resting in bed. Receiving dialysis. Breathing feels good. Continue to encourage OOB and physical therapy, deep breaths. Eating and drinking OK. L hand with more erythema, swelling, warmth- discussed w/ Dr. Philippe, ?reflex sympathetic dystrophy but start Daptomycin Pain is well controlled. +BM yesterday. Patient denies any fever, chills, sweats, lightheadedness, dizziness, vision changes, CP, palpitations, SOB, wheezing, cough, abdominal pain, nausea, vomiting, diarrhea, urinary symptoms, melena, numbness/tingling, weakness, muscle/joint pain, anxiety/depression, active bleeding. (Ledy Bhakta ., PA-C) Medications Current Inpatient Medications Medications (Trade) Dose Ordered Sig/Edward Route Start Time Stop Time Status Last Admin Dose Admin Ondansetron HCl (Zofran Inj) 4 mg Q4H PRN IV 07/11/17 03:00 08/10/17 02:59 08/04/17 15:58 4 MG Prochlorperazine Edisylate 5 mg/ Syringe 5 ml @ 5 mls/min Q4H PRN IV 07/11/17 14:00 08/10/17 13:59 Lactulose (Chronulac Syrup) 30 gm Q4H PRN PO 07/11/17 16:45 08/10/17 16:44 Miscellaneous (Fentanyl Patch Remove & Waste) 1 ea Q3D@0859 N/A 07/22/17 08:59 08/21/17 08:58 08/06/17 08:20 1 EA Ergocalciferol (Vitamin D Cap) 50,000 interunit Q7D@0900 PO 07/20/17 09:00 08/19/17 08:59 08/03/17 08:22 50,000 INTERUNIT Hydralazine HCl (HydrALAZINE INJ) 5 mg Q4 PRN IV. 07/21/17 17:15 08/20/17 17:14 Future Hold 07/25/17 23:45 5 MG Hydralazine HCl (HydrALAZINE INJ) 5 mg TID IV. 07/21/17 21:00 08/20/17 20:59 Future Hold 07/30/17 08:33 5 MG Miscellaneous Information (Consult Glycemic Management Pharmacy) 1 ea UD PRN N/A 07/23/17 13:14 08/22/17 13:13 Insulin Aspart (novoLOG ASPART) SLIDING SCALE G... ACHS SC 07/27/17 11:30 08/26/17 11:29 08/07/17 07:58 14 UNITS Methadone HCl (Dolophine Tab) 20 mg BID PO 07/28/17 21:00 08/08/17 08:59 08/07/17 07:55 20 MG Ipratropium [place] (Atrovent 0.02% 0.5MG/2.5ML Neb) 0.5 mg Q6R INH 07/29/17 09:00 08/28/17 08:59 08/07/17 07:22 0.5 MG Levalbuterol (Xopenex 0.63 Mg/ 3 Ml Neb) 0.63 mg Q6R INH 07/29/17 09:00 08/28/17 08:59 08/07/17 07:22 0.63 MG Metoprolol Tartrate (Lopressor Tab) 100 mg BID PO 07/29/17 21:00 08/28/17 20:59 08/07/17 07:54 100 MG Amlodipine Besylate (Norvasc Tab) 10 mg QAM PO 07/30/17 09:00 08/29/17 08:59 08/07/17 07:54 10 MG Diphenhydramine HCl (Benadryl Inj) 50 mg 4XDQ4H PRN IV 07/30/17 13:30 08/29/17 13:29 Heparin Sodium (Porcine) (Heparin Sq 5000 Unit/0.5ml) 5,000 unit Q8 SQ 07/30/17 22:00 08/29/17 21:59 08/07/17 06:22 5,000 UNIT Prednisone (PredniSONE TAB) 20 mg BIDM PO 07/31/17 07:30 08/30/17 07:29 08/07/17 07:54 20 MG Furosemide (Lasix Tab) 40 mg QAM PO 08/01/17 09:00 08/31/17 08:59 08/07/17 07:54 40 MG Calcitriol (Rocaltrol Cap) 0.25 mcg Q2D@0900 PO 08/02/17 09:00 09/01/17 08:59 08/06/17 08:16 0.25 MCG Calcium Carbonate (Tums Chew Tab) 500 mg TID PO 08/02/17 09:00 09/01/17 08:59 08/07/17 07:54 500 MG Enteral Nutritional Formula (Boost Glucose Control) 1 can BID@1000,2100 PO 08/01/17 21:00 08/31/17 20:59 08/07/17 09:52 1 CAN Insulin Human NPH (novoLIN-N NPH) 12 units QDB SC 08/06/17 07:30 09/05/17 07:29 08/07/17 08:00 12 UNITS Vitamin B Complex/ Vit C/Folic Acid (Nephrocaps) 1 cap QAM PO 08/07/17 09:00 09/06/17 08:59 08/07/17 07:54 1 CAP Insulin Human NPH (novoLIN-N NPH) 8 units QDD SC 08/07/17 16:45 09/06/17 16:44 (Ledy Bhakta, BROCKC) Objective Vital Signs Date Time Temp Pulse Resp B/P (MAP) Pulse Ox O2 Delivery O2 Flow Rate FiO2 08/07/17 11:31 106 140/78 08/07/17 11:15 111 156/84 08/07/17 11:03 102 132/59 08/07/17 10:45 114 165/84 08/07/17 10:30 95 176/81 08/07/17 10:15 99 160/64 08/07/17 10:00 104 187/86 08/07/17 09:45 94 173/83 08/07/17 09:30 94 175/81 08/07/17 09:15 98 185/79 08/07/17 09:00 93 184/87 08/07/17 08:50 96 188/93 08/07/17 08:45 36.8 97 196/75 (115) 08/07/17 08:00 Oxymask 15.0 08/07/17 07:32 91 18 88 Mask 15.0 08/07/17 07:28 36.6 87 18 175/78 (110) 90 15.0 08/07/17 04:15 Oxymask 15.0 08/07/17 04:06 36.8 89 22 157/74 (101) 96 BiPAP 50 08/07/17 01:47 96 17 97 BiPAP/CPAP 50 08/07/17 01:47 96 97 50 08/07/17 00:30 BiPAP 08/07/17 00:04 97 92 50 08/06/17 23:37 36.7 98 23 165/82 (109) 95 BiPAP 50 08/06/17 20:00 Oxymask 15.0 BiPAP 08/06/17 19:57 36.7 102 22 155/72 (99) 89 Oxymask 15.0 08/06/17 19:29 85 18 91 Mask 15.0 08/06/17 16:00 Oxymask 15.0 08/06/17 15:46 36.4 96 22 157/64 (95) 92 Oxymask 15.0 08/06/17 14:16 94 18 96 Mask 15.0 08/06/17 12:00 Oxymask 15.0 08/06/17 12:00 36.9 89 16 155/72 92 15.0 (Ledy Bhakta, PA-C) Physical Exam General Appearance: no apparent distress, + pertinent finding (OxyMask) Eyes: normal inspection, PERRL ENT: hearing grossly normal Neck: supple Respiratory/Chest: lungs clear, no respiratory distress, no accessory muscle use Cardiovascular: regular rate, rhythm Abdomen: normal bowel sounds, non tender, soft, + pertinent finding (Incision site bandage C/D/I) Extremities: no calf tenderness, + swelling (+2-3 pitting edema of bilateral lower extremities ), + pertinent finding (L hand with increased erythema, warmth , swelling- no drainage noted ) Neurologic/Psychiatric: alert, normal mood/affect, oriented x 3 Skin: normal color, warm/dry, no rash (Ledy Bhakta ., PA-C) Laboratory Results Last 24 Hours Test 08/06/17 16:12 08/06/17 20:17 08/07/17 06:37 08/07/17 08:36 Bedside Glucose 152 mg/dl 236 mg/dl 218 mg/dl White Blood Count 17.89 K/uL Red Blood Count 2.82 M/uL Hemoglobin 8.8 g/dL Hematocrit 26.3 % Mean Corpuscular Volume 93.3 fL Mean Corpuscular Hemoglobin 31.2 pg Mean Corpuscular Hemoglobin Concent 33.5 g/dl RDW Standard Deviation 60.7 fL RDW Coefficient of Variation 18.5 % Platelet Count 124 K/uL Mean Platelet Volume 11.7 fL Nucleated RBC Absolute Count (auto) 0.22 K/uL Nucleated Red Blood Cells % 1.2 % Test 08/07/17 11:06 Bedside Glucose 131 mg/dl (Ledy Bhakta, PA-C) Assessment and Plan Mr. Christy is a 61 y/o M with PMH of ESRD on HD, RCC, DMII. Admitted for L hand cellulitis having failed outpatient management. Abdominal pain, found to have incidental rectus sheath hematoma, C.diff positive colitis and subsequent bowel perforation on 07/21, now s/p colectomy, anemia, and bilateral pneumonia on imaging. C. diff colitis, perforated jejunal bowel (suspected to result from chemo regimen) s/p colectomy, rectus sheath hematoma: - Monitoring on tele- no acute events - Surgical management as per surgery, POD #15- TPN completed on 07/29/17 - Currently on mechanical soft diet - Underlying severe protein malnutrition, albumin 1.3- boost BID added - C.Diff + 07/12/17: Completed 9 days of PO Vancomycin - C. glabratum growth- Completed Caspofungin x10 days - Pain controlled w/ Methadone and Morphine IV PRN Metastatic RCC s/p L nephrectomy, chronic pain: - Oncology following- holding treatment at this time due to acute issues- f/u outpatient - Palliative care following- appreciate recommendations for pain control- Methadone, Fentanyl, and Morphine PRN ESRD HD, secondary to RCC/ s/p left nephrectomy- HD on MWF, ESRD bone mineral disease: - Nephrology following - 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 on 07/23 - Vascular surgery consulted- s/p AVR repair on 07/25/17 - Hypocalcemia w/ vitamin D level of 9.4: Ergocalciferol 50,000 q7d indefinitely + daily D3 2000 when patient resumes oral intake- recheck levels in 12 weeks - Calcitriol and CaCO3 Left hand cellulitis, ?reflex sympathetic dystrophy: - Initial MRI did not determine any osteomyelitis - ID consulted: -- Treated initially with Ertapenem/Daptomycin, then transitioned to Cefepime - treated 07/22- 07/30 -- More erythema, swelling, warmth- Daptomycin started on 08/07 per ID recommendations Acute hypoxia respiratory failure, ?secondary to pulmonary edema vs cryptogenic organizing pneumonia/drug related pneumonitis: - Continue O2 supplementation to maintain SaO2 >92%, wean as tolerated - Started on heparin drip on 07/26 for presumed PE- CTA 07/30/17 negative for PE, thus heparin drip stopped - Large R pleural effusion s/p thoracentesis completed 07/30/17- pleural pathology w/ no malignancy, pleural cultures growing yeast- on IV Caspofungin - IV Solu-Medrol- transitioned to Prednisone 20 mg BID on 07/31 for prolonged taper - DuoNebs QID and PRN - Pulmonary following- thinks poor respiratory status is secondary to inactivity - encouraged incentive spirometer, OOB in chair throughout day, working w/ PT DMII: Pharmacy consulted for glycemic management Acute anemia- transfused a total of 7 u PRBCs: - Nephrology following- Epogen with dialysis - H&H- hgb 6.9 on 08/06, transfused 1 u PRBcs and 120 mg Lasix IV x1- hgb stable at 8.8 today - Continue to follow H&H and transfuse PRN for hgb <7 or symptomatic HTN, HLD: - Furosemide 40 mg PO daily, Amlodipine 10 mg daily, Metoprolol 100 mg PO BID, Lisinopril 40 mg daily - Hydralazine 100 mg TID held- BPs well controlled at this time - Monitor I&Os and daily weights - Simvastatin 20 mg HS held due to NPO status- will resume once tolerating regular diet BPH: Tamsulosin 0.4 mg PO daily held due to NPO status- will resume once tolerating regular diet DVT Prophylaxis: Heparin SQ TID Code Status: LEVEL I, FULL Dispo: Discharge uncertain- planning for [facility] at discharge- PT/OT and CM consulted (Ledy Bhakta, PA-C) Supervising Note Dr. Montana I performed a history and physical examination on the patient. I reviewed above note and agree with it. I discussed plan with APC and patient. During my face to face encounter with the patient, I answered all of the patient's questions. (Gil Montana M.D.)
[2017-08-07] MEDS: DAPTOmycin IV 350 MG in SYRINGE 0 ML IV SCH (13:24)
--- NOTE | 2017-08-07 15:46 | Infectious Disease Progress Nt ---
Progress Note Date of Service Aug 07, 2017. Subjective Pt evaluation today including: conversation w/ patient, physical exam, chart review, lab review, review of studies, conversation w/ sr. consultant, review of inpatient medication list Patient with somewhat better with less shortness of breath. Pain controlled. No fever. Notes increase in left hand swelling and erythema. All Other Systems: Reviewed and Negative Medications Current Inpatient Medications Medications (Trade) Dose Ordered Sig/Edward Route Start Time Stop Time Status Last Admin Dose Admin Ondansetron HCl (Zofran Inj) 4 mg Q4H PRN IV 07/11/17 03:00 08/10/17 02:59 08/04/17 15:58 4 MG Prochlorperazine Edisylate 5 mg/ Syringe 5 ml @ 5 mls/min Q4H PRN IV 07/11/17 14:00 08/10/17 13:59 Lactulose (Chronulac Syrup) 30 gm Q4H PRN PO 07/11/17 16:45 08/10/17 16:44 Miscellaneous (Fentanyl Patch Remove & Waste) 1 ea Q3D@0859 N/A 07/22/17 08:59 08/21/17 08:58 08/06/17 08:20 1 EA Ergocalciferol (Vitamin D Cap) 50,000 interunit Q7D@0900 PO 07/20/17 09:00 08/19/17 08:59 08/03/17 08:22 50,000 INTERUNIT Hydralazine HCl (HydrALAZINE INJ) 5 mg Q4 PRN IV. 07/21/17 17:15 08/20/17 17:14 Future Hold 07/25/17 23:45 5 MG Hydralazine HCl (HydrALAZINE INJ) 5 mg TID IV. 07/21/17 21:00 08/20/17 20:59 Future Hold 07/30/17 08:33 5 MG Miscellaneous Information (Consult Glycemic Management Pharmacy) 1 ea UD PRN N/A 07/23/17 13:14 08/22/17 13:13 Insulin Aspart (novoLOG ASPART) SLIDING SCALE G... ACHS SC 07/27/17 11:30 08/26/17 11:29 08/07/17 07:58 14 UNITS Methadone HCl (Dolophine Tab) 20 mg BID PO 07/28/17 21:00 08/08/17 08:59 08/07/17 07:55 20 MG Ipratropium [place] (Atrovent 0.02% 0.5MG/2.5ML Neb) 0.5 mg Q6R INH 07/29/17 09:00 08/28/17 08:59 08/07/17 07:22 0.5 MG Levalbuterol (Xopenex 0.63 Mg/ 3 Ml Neb) 0.63 mg Q6R INH 07/29/17 09:00 08/28/17 08:59 08/07/17 07:22 0.63 MG Metoprolol Tartrate (Lopressor Tab) 100 mg BID PO 07/29/17 21:00 08/28/17 20:59 08/07/17 07:54 100 MG Amlodipine Besylate (Norvasc Tab) 10 mg QAM PO 07/30/17 09:00 08/29/17 08:59 08/07/17 07:54 10 MG Diphenhydramine HCl (Benadryl Inj) 50 mg 4XDQ4H PRN IV 07/30/17 13:30 08/29/17 13:29 Heparin Sodium (Porcine) (Heparin Sq 5000 Unit/0.5ml) 5,000 unit Q8 SQ 07/30/17 22:00 08/29/17 21:59 08/07/17 13:25 5,000 UNIT Prednisone (PredniSONE TAB) 20 mg BIDM PO 07/31/17 07:30 08/30/17 07:29 08/07/17 07:54 20 MG Furosemide (Lasix Tab) 40 mg QAM PO 08/01/17 09:00 08/31/17 08:59 08/07/17 07:54 40 MG Calcitriol (Rocaltrol Cap) 0.25 mcg Q2D@0900 PO 08/02/17 09:00 09/01/17 08:59 08/06/17 08:16 0.25 MCG Calcium Carbonate (Tums Chew Tab) 500 mg TID PO 08/02/17 09:00 09/01/17 08:59 08/07/17 13:24 500 MG Enteral Nutritional Formula (Boost Glucose Control) 1 can BID@1000,2100 PO 1/9/18 21:00 08/31/17 20:59 08/07/17 09:52 1 CAN Insulin Human NPH (novoLIN-N NPH) 12 units QDB SC 08/06/17 07:30 09/05/17 07:29 08/07/17 08:00 12 UNITS Vitamin B Complex/ Vit C/Folic Acid (Nephrocaps) 1 cap QAM PO 08/07/17 09:00 09/06/17 08:59 08/07/17 07:54 1 CAP Insulin Human NPH (novoLIN-N NPH) 8 units QDD SC 08/07/17 16:45 09/06/17 16:44 Daptomycin 350 mg/ Syringe 7 ml @ 3.5 mls/min Q48H IV 08/07/17 13:15 08/17/17 13:14 08/07/17 13:24 3.5 MLS/MIN Objective Vital Signs Date Time Temp Pulse Resp B/P (MAP) Pulse Ox O2 Delivery O2 Flow Rate FiO2 08/07/17 15:18 37.1 113 22 185/81 (115) 91 Oxymask 15.0 08/07/17 12:50 36.9 104 175/93 (120) 08/07/17 12:30 108 184/84 08/07/17 12:15 97 200/97 08/07/17 12:03 107 197/85 08/07/17 12:00 Oxymask 15.0 08/07/17 11:45 102 139/77 08/07/17 11:31 106 140/78 08/07/17 11:15 111 156/84 08/07/17 11:03 102 132/59 08/07/17 10:45 114 165/84 08/07/17 10:30 95 176/81 08/07/17 10:15 99 160/64 08/07/17 10:00 104 187/86 08/07/17 09:45 94 173/83 08/07/17 09:30 94 175/81 08/07/17 09:15 98 185/79 08/07/17 09:00 93 184/87 08/07/17 08:50 96 188/93 08/07/17 08:45 36.8 97 196/75 (115) 08/07/17 08:00 Oxymask 15.0 08/07/17 07:32 91 18 88 Mask 15.0 08/07/17 07:28 36.6 87 18 175/78 (110) 90 15.0 08/07/17 04:15 Oxymask 15.0 08/07/17 04:06 36.8 89 22 157/74 (101) 96 BiPAP 50 08/07/17 01:47 96 17 97 BiPAP/CPAP 50 08/07/17 01:47 96 97 50 08/07/17 00:30 BiPAP 08/07/17 00:04 97 92 50 08/06/17 23:37 36.7 98 23 165/82 (109) 95 BiPAP 50 08/06/17 20:00 Oxymask 15.0 BiPAP 08/06/17 19:57 36.7 102 22 155/72 (99) 89 Oxymask 15.0 08/06/17 19:29 85 18 91 Mask 15.0 08/06/17 16:00 Oxymask 15.0 08/06/17 15:46 36.4 96 22 157/64 (95) 92 Oxymask 15.0 Physical Exam General Appearance: WD/WN, no apparent distress Eyes: normal inspection, EOMI, sclerae normal ENT: normal ENT inspection, pharynx normal Neck: supple, no adenopathy, trachea midline Respiratory/Chest: chest non-tender, lungs clear, normal breath sounds, no respiratory distress Cardiovascular: regular rate, rhythm, no gallop, no murmur Abdomen: normal bowel sounds, soft, no organomegaly, + tenderness (Slight tenderness room incision and rectus sheath hematoma) Extremities: non-tender, + pedal edema, + pertinent finding (Left hand swelling ) Neurologic/Psychiatric: alert, oriented x 3 Skin: normal color, no rash, + pertinent finding (Increase in erythema left hand) Lymphatic: no adenopathy Laboratory Results Last 24 Hours Test 08/06/17 16:12 08/06/17 20:17 08/07/17 06:37 08/07/17 08:36 Bedside Glucose 152 mg/dl 236 mg/dl 218 mg/dl White Blood Count 17.89 K/uL Red Blood Count 2.82 M/uL Hemoglobin 8.8 g/dL Hematocrit 26.3 % Mean Corpuscular Volume 93.3 fL Mean Corpuscular Hemoglobin 31.2 pg Mean Corpuscular Hemoglobin Concent 33.5 g/dl RDW Standard Deviation 60.7 fL RDW Coefficient of Variation 18.5 % Platelet Count 124 K/uL Mean Platelet Volume 11.7 fL Nucleated RBC Absolute Count (auto) 0.22 K/uL Nucleated Red Blood Cells % 1.2 % Test 08/07/17 11:06 08/07/17 14:53 Bedside Glucose 131 mg/dl 67 mg/dl Assessment and Plan 61-year-old male with metastatic renal cell carcinoma with left hand cellulitis , Possible reflex sympathetic dystrophy, subsequent development of pneumonitis, C difficile infection, and then 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 Culture of peritoneal and pleural fluid both growing Cecilia glabrata, caspofungin to be continued, likely in the range of 2 weeks. Left hand swelling and erythema nail slightly worse, still suspect that this represents reflex sympathetic dystrophy. However have recommended restarting daptomycin to see if there will be clinical response. Will follow.
[2017-08-07] MEDS ORDERED: MoRPHine SULFATE 2 MG/ML CARP IV STA (17:12)
[2017-08-07] MEDS: FENTANYL 25 MCG/HR TDSY TD SCH (17:42)
--- NOTE | 2017-08-07 20:01 | CONSULTATION REPORT ---
DATE OF CONSULTATION: 08/07/2017 ATTENDING: Ramsey Deshpande MD. SUBJECTIVE: The patient just returned from dialysis and is a bit tremulous. Not able to eat much. He denies feeling dyspneic and the pain from his previous surgery is continuing to improve. He has seen Dr. Sasha Jackson from palliative care and the pain once again appears to be under control. OBJECTIVE: VITAL SIGNS: Temperature 37.1, pulse 104 and regular, respiratory rate 22, blood pressure 185/81, O2 sat 91% on 15 liters. SKIN: Without lesion. HEENT: Atraumatic, normocephalic. PERRLA. EOMI. Conjunctivae pale. Sclerae nonicteric. Fundi poorly visualized. NECK: Neck veins are not distended at 45 degrees. No adenopathy in the supra or infraclavicular area. LUNGS: Decreased breath sounds at the right base with dullness. CARDIAC: Tachycardic rhythm. I do not appreciate a gallop. ABDOMEN: Soft, protuberant. No obvious evidence of hepatosplenomegaly. EXTREMITIES: Trace to +1 pitting edema. No clubbing or peripheral cyanosis. NEUROLOGIC: Intact. No lateralizing signs. LABORATORY DATA: Chest x-ray on 08/02/2017 shows an elevated right hemidiaphragm and there is suggestion of an asymmetric pulmonary edema, left greater than right. CPA on 07/30/2017 was reviewed, showed no evidence of pulmonary thromboembolic disease but extensive ground-glass opacities throughout both lung [place] that has progressed since 07/14/2017 with multifocal airspace consolidation seen. The right pleural effusion had increased in size. Other laboratory data, H&H 8.8 and 26. White count of 17,000. OVERALL ASSESSMENT AND PLAN: A 61-year-old with end-stage renal disease on hemodialysis, renal cell carcinoma, diabetes mellitus with recent microperforation of the bowel and bowel resection complications including pseudomembranous colitis and rectus sheath hematoma status post colectomy on 07/21/2017 with anemia and bronchopneumonia/congestive heart failure. The patient's O2 requirements are quite high. He appears to have stabilized, although still looks somewhat tachypneic and dyspneic at rest. Left hand cellulitis appears to be improving, but clearly suffered some acute hypoxic respiratory failure. Cannot rule out an area of cryptogenic organizing pneumonia and has had complications from multiple chemotherapy regimens. The patient is currently on prednisone and underwent a right-sided thoracentesis growing out yeast and has been treated with IV Caspofungin. We will repeat chest x-ray tomorrow and follow along with you. Thank you very much for this consultation allowing us to follow your patient with you during this hospital stay.
[2017-08-07] MEDS ORDERED: NURSING VERBAL MED ORDER ONE (22:00)
[2017-08-07] MEDS: MoRPHine SULFATE 2 MG/ML CARP IV PRN (22:18)
[2017-08-08] VITALS (12 sets, daily range): BP systolic 123–163; BP diastolic 67–75; PULSE 84–109; TEMP 36.5–37.2; O2SAT 90–95
[2017-08-08] MEDS: CHECK FENTANYL PATCH PLACEMENT SCH ×4 (00:33→23:27)
[2017-08-08] MEDS: MoRPHine SULFATE 2 MG/ML CARP IV PRN ×3 (01:11→12:25)
[2017-08-08 04:37] LABS: HEMOGLOBIN 8.2 g/dL (14.0-18.0); MEAN CELL VOLUME 93.3 fL (80-100); MEAN CORPUSCULAR HEMOGLOBIN 30.6 pg (25-34); MEAN CORPUSCULAR HGB CONC 32.8 g/dl (32-36); MEAN PLATELET VOLUME 11.8 fL (7.4-10.4); NUCLEATED RED BLOOD CELL ABS 0.27 K/uL (0-0); PLATELET COUNT 119 K/uL (130-400); RED CELL DISTRIBUTION WIDTH CV 18.9 % (11.5-14.5); RED CELL DISTRIBUTION WIDTH SD 63.2 fL (36.4-46.3); WHITE BLOOD COUNT 16.86 K/uL (4.8-10.8)
[2017-08-08 05:02] LABS: CALCIUM 8.2 mg/dl (8.5-10.1); CREATININE 3.02 mg/dl (0.60-1.40); POTASSIUM 4.7 mmol/L (3.5-5.1)
[2017-08-08] MEDS: HEPARIN SOD 5000 UNIT/0.5 ML CARP SQ SCH ×3 (06:24→22:22)
[2017-08-08] MEDS: INSULIN ASPART 100 UNITS/ML 3 ML PEN SC SCH ×4 (07:00→22:21)
[2017-08-08] MEDS: IPRATROPIUM BROMIDE NEB SOLN 0.02% 2.5 ML VIAL INH SCH ×3 (07:22→19:32)
[2017-08-08] MEDS: LEVALBUTEROL 0.63MG/3 ML NEB INH SCH ×3 (07:22→19:31)
--- NOTE | 2017-08-08 08:16 | DIAGNOSTIC IMAGING REPORT ---
CHEST ONE VIEW PORTABLE HISTORY: hypoxemia COMPARISON: Chest 08/02/2017. FINDINGS: No pneumothorax. Chronic elevation the right hemidiaphragm. Trace bilateral pleural fusions. The heart is normal in size. Right jugular Port-A-Cath terminates in the SVC. Progressive bilateral airspace opacities, left greater than right. IMPRESSION: Progressive bilateral airspace opacities, left greater than right. Electronically signed by: Harris Cordova M.D. 08/08/2017 8:14 AM Dictated Date/Time: 08/08/2017 8:14 AM
[2017-08-08] MEDS: AMLODIPINE BESYLATE 5 MG TAB PO SCH (08:21)
[2017-08-08] MEDS: FUROSEMIDE 40 MG TAB PO SCH (08:21)
[2017-08-08] MEDS: METOPROLOL TARTRATE 100 MG TAB PO SCH ×2 (08:21→22:19)
[2017-08-08] MEDS: NEPHROCAPS PO SCH (08:22)
[2017-08-08] MEDS: CALCITRIOL 0.25 MCG CAP PO SCH (08:22)
[2017-08-08] MEDS: CALCIUM CARBONATE 500 MG CHEWABLE PO SCH ×3 (08:23→22:18)
[2017-08-08] MEDS: INSULIN HUMAN NPH SC SCH ×2 (08:33→17:25)
--- NOTE | 2017-08-08 09:42 | Palliative Care Progress Note ---
Palliative Care Progress Note Date of Service Aug 08, 2017. Subjective Pt evaluation today including: conversation w/ patient, physical exam, chart review, lab review, conversation w/ [facility] consultant, review of inpatient medication list Pain: Increased in area of R rectus sheath hematoma, also along L surgical incisi PO Intake: fair Voiding: no voiding problems Review of Systems Constitutional: + weakness, No fever, No chills Eyes: No discharge ENT: No hearing loss Respiratory: + shortness of breath, + dyspnea at rest Cardiac: + edema, No chest pain Abdomen: + pain (increased RLQ and L side of surgical incision) Male : No dysuria Neurologic: + weakness, + problem reported (increased tremor ? from weakness), No memory loss Psychiatric: No depression symptoms Skin: + problem reported (increased swelling and erythema L hand) Objective Vital Signs Date Time Temp Pulse Resp B/P (MAP) Pulse Ox O2 Delivery O2 Flow Rate FiO2 08/08/17 07:32 37.0 96 20 154/68 (96) 91 Diffusion Mask 8.0 08/08/17 07:20 84 20 93 Mask 15.0 08/08/17 04:00 Oxymask BiPAP 08/08/17 04:00 36.5 85 20 123/70 (87) 95 Nasal Cannula 3.0 08/08/17 03:55 36.7 98 24 163/67 (99) 92 BiPAP 50 08/08/17 01:53 99 17 90 BiPAP/CPAP 50 08/08/17 01:53 99 90 50 08/08/17 00:02 37.2 97 18 160/71 (100) 90 08/07/17 23:59 Oxymask BiPAP 08/07/17 22:16 104 91 50 08/07/17 22:15 104 24 91 BiPAP/CPAP 50 08/07/17 20:00 90 Oxymask 15.0 08/07/17 19:40 37.0 104 22 169/69 (102) 89 Oxymask 15.0 08/07/17 16:00 92 Oxymask 15.0 08/07/17 15:18 37.1 113 22 185/81 (115) 91 Oxymask 15.0 08/07/17 12:50 36.9 104 175/93 (120) 08/07/17 12:50 36.9 104 175/93 (120) 08/07/17 12:30 108 184/84 08/07/17 12:15 97 200/97 08/07/17 12:03 107 197/85 08/07/17 12:00 Oxymask 15.0 08/07/17 11:45 102 139/77 08/07/17 11:31 106 140/78 08/07/17 11:15 111 156/84 08/07/17 11:03 102 132/59 08/07/17 10:45 114 165/84 08/07/17 10:30 95 176/81 08/07/17 10:15 99 160/64 08/07/17 10:00 104 187/86 08/07/17 09:45 94 173/83 08/07/17 09:30 94 175/81 Physical Exam General Appearance: no apparent distress (at rest) Eyes: EOMI ENT: hearing grossly normal Neck: supple Respiratory/Chest: + pertinent finding (new rhonchi on R, decreaed BS bilateral bases) Cardiovascular: regular rate, rhythm Abdomen: + pertinent finding (mild tenderness RLQ and lateral to surgical incision on L ) Extremities: + pedal edema (decreased after dialysis yesterday) Neurologic/Psychiatric: alert, + pertinent finding (in good spirits) Skin: warm/dry Laboratory Results Last 24 Hours Test 08/07/17 11:06 08/07/17 14:53 08/07/17 16:15 08/07/17 20:15 Bedside Glucose 131 mg/dl 67 mg/dl 107 mg/dl 105 mg/dl Test 08/07/17 23:46 08/08/17 04:11 08/08/17 06:45 Bedside Glucose 117 mg/dl 150 mg/dl White Blood Count 16.86 K/uL Red Blood Count 2.68 M/uL Hemoglobin 8.2 g/dL Hematocrit 25.0 % Mean Corpuscular Volume 93.3 fL Mean Corpuscular Hemoglobin 30.6 pg Mean Corpuscular Hemoglobin Concent 32.8 g/dl RDW Standard Deviation 63.2 fL RDW Coefficient of Variation 18.9 % Platelet Count 119 K/uL Mean Platelet Volume 11.8 fL Nucleated RBC Absolute Count (auto) 0.27 K/uL Nucleated Red Blood Cells % 1.6 % Sodium Level 133 mmol/L Potassium Level 4.7 mmol/L Chloride Level 95 mmol/L Carbon Dioxide Level 28 mmol/L Anion Gap 10.0 mmol/L Blood Urea Nitrogen 54 mg/dl Creatinine 3.02 mg/dl Est Creatinine Clear Calc Drug Dose 25.9 ml/min Estimated GFR () 24.3 Estimated GFR (Non- 21.0 BUN/Creatinine Ratio 17.7 Random Glucose 142 mg/dl Calcium Level 8.2 mg/dl Assessment and Plan (1) Pain due to neoplasm Status: Chronic Assessment & Plan: Chronic pain controlled on methadone - concern about increased abd pain - pt required 3 prn IV morphine overnight - he usually required 1-2 doses in 24 hours (2) Cellulitis of left hand Status: Acute Assessment & Plan: ? RSD - pt continued on Daptomycin and Caspofungin as per ID (3) ESRD (end stage renal disease) on dialysis Status: Acute Assessment & Plan: Tolerating dialysis well (4) Hypoxemia requiring supplemental oxygen Status: Acute Assessment & Plan: CXR much worse today - Dr Deshpande following (5) High risk medication use Status: Acute Assessment & Plan: Reviewed med list - no meds that would effect metabolism of methadone Total time: 35 min with > 50% time spent at bedside with pt counseling regarding current POC Palliative Performance Scale: 30 % Continued [facility] stay due to: ambulation difficulties, multiple IV medications needed, other (still with high O2 requirement, CXR worsening) Discharge planning: uncertain Counseling and Coordination Total time > 35 min with > 50% of time spent at bedside counseling pt regarding his treatment plan
[2017-08-08] MEDS: BOOST GLUCOSE CONTROL PO SCH ×2 (10:00→22:18)
--- NOTE | 2017-08-08 11:22 | Nephrology Progress Note ---
Nephrology Progress Note Date of Service Aug 08, 2017. Chief Complaint Provide inpatient HD and assist w/ medical management of this patient w/ ESRD Subjective Mr. Christy was seen & examined in his hospital room this morning. He was dialyzed yesterday for 4 hours w/ 3 L UF. There were no complications using his L upper arm AVF. His L arm is again swollen. Mr. Christy is now back to his admission weight of 80 kg. CXR this am shows progressive pulmonary infiltrates. He is requiring high flow oxygen. Review of Systems Constitutional: No fever Cardiovascular: No chest pain Respiratory: No dyspnea at rest Abdomen: No pain, No nausea, No vomiting Extremities: + leg edema A complete review of systems was performed. Pertinent positives are noted above. All other systems are negative. Vital Signs Last 8 Hrs Date Time Temp Pulse Resp B/P (MAP) Pulse Ox O2 Delivery O2 Flow Rate FiO2 08/08/17 07:32 37.0 96 20 154/68 (96) 91 Diffusion Mask 8.0 08/08/17 07:20 84 20 93 Mask 15.0 08/08/17 04:00 Oxymask BiPAP 08/08/17 04:00 36.5 85 20 123/70 (87) 95 Nasal Cannula 3.0 08/08/17 03:55 36.7 98 24 163/67 (99) 92 BiPAP 50 Last Recorded Weight Weight (Kilograms): 80.800 Physical Exam General Appearance: no apparent distress Head: normocephalic, atraumatic Eyes: PERRL, EOMI Neck: no adenopathy Respiratory/Chest: + crackles Cardiovascular: regular rate, rhythm Abdomen/GI: normal bowel sounds, soft Extremities/Musculoskelatal: + pertinent finding (L arm w/ 1+ pitting edema from hand to shoulder. Patient has 2+ dependent pitting edema of the arms and legs) Neurologic/Psych: alert, oriented x 3 Family History Cervical cancer Diabetes mellitus Heart disease Hypertension Myocardial infarction Pancreatic cancer Prostate cancer Negative for CKD/ESRD Social History Smokeless Tobacco Use: No Alcohol Use: none Drug Use: none Marital Status: single Housing Status: lives alone Occupation: disabled Single, retired. Formerly worked for [employer]. Never a smoker. Laboratory Results Past 24 Hours 08/08/17 04:11 08/08/17 04:11 Test 08/07/17 11:06 08/07/17 14:53 08/07/17 16:15 08/07/17 20:15 Bedside Glucose 131 mg/dl (70-99) 67 mg/dl (70-99) 107 mg/dl (70-99) 105 mg/dl (70-99) Test 08/07/17 23:46 08/08/17 04:11 08/08/17 06:45 Bedside Glucose 117 mg/dl (70-99) 150 mg/dl (70-99) Red Blood Count 2.68 M/uL (4.7-6.1) Mean Corpuscular Volume 93.3 fL (80-100) Mean Corpuscular Hemoglobin 30.6 pg (25-34) Mean Corpuscular Hemoglobin Concent 32.8 g/dl (32-36) RDW Standard Deviation 63.2 fL (36.4-46.3) RDW Coefficient of Variation 18.9 % (11.5-14.5) Mean Platelet Volume 11.8 fL (7.4-10.4) Nucleated RBC Absolute Count (auto) 0.27 K/uL (0-0) Nucleated Red Blood Cells % 1.6 % Anion Gap 10.0 mmol/L (3-11) Est Creatinine Clear Calc Drug Dose 25.9 ml/min Estimated GFR () 24.3 Estimated GFR (Non- 21.0 BUN/Creatinine Ratio 17.7 (10-20) Calcium Level 8.2 mg/dl (8.5-10.1) 25-Hydroxy Vitamin D Total 17.4 ng/ml (30-100) Allergies Coded Allergies: Iodinated Diagnostic Agents (Verified Allergy, Unknown, oil based, severe headaches, 06/20/17) EVENT OCCURED IN 1971, PT STATES HE HAS HAD 3 DIFFERENT WATER BASED IVP DYES WITH NO ISSUE Medications Current Inpatient Medications Medications (Trade) Dose Ordered Sig/Edward Route Start Time Stop Time Status Last Admin Dose Admin Ondansetron HCl (Zofran Inj) 4 mg Q4H PRN IV 07/11/17 03:00 08/10/17 02:59 08/04/17 15:58 4 MG Prochlorperazine Edisylate 5 mg/ Syringe 5 ml @ 5 mls/min Q4H PRN IV 07/11/17 14:00 08/10/17 13:59 Lactulose (Chronulac Syrup) 30 gm Q4H PRN PO 07/11/17 16:45 08/10/17 16:44 Miscellaneous (Fentanyl Patch Remove & Waste) 1 ea Q3D@0859 N/A 07/22/17 08:59 08/21/17 08:58 08/06/17 08:20 1 EA Ergocalciferol (Vitamin D Cap) 50,000 interunit Q7D@0900 PO 07/20/17 09:00 08/19/17 08:59 08/03/17 08:22 50,000 INTERUNIT Hydralazine HCl (HydrALAZINE INJ) 5 mg Q4 PRN IV. 07/21/17 17:15 08/20/17 17:14 Future Hold 07/25/17 23:45 5 MG Hydralazine HCl (HydrALAZINE INJ) 5 mg TID IV. 07/21/17 21:00 08/20/17 20:59 Future Hold 07/30/17 08:33 5 MG Miscellaneous Information (Consult Glycemic Management Pharmacy) 1 ea UD PRN N/A 07/23/17 13:14 08/22/17 13:13 Insulin Aspart (novoLOG ASPART) SLIDING SCALE G... ACHS SC 07/27/17 11:30 08/26/17 11:29 08/07/17 16:53 9 UNITS Ipratropium [place] (Atrovent 0.02% 0.5MG/2.5ML Neb) 0.5 mg Q6R INH 07/29/17 09:00 08/28/17 08:59 08/08/17 07:22 0.5 MG Levalbuterol (Xopenex 0.63 Mg/ 3 Ml Neb) 0.63 mg Q6R INH 07/29/17 09:00 08/28/17 08:59 08/08/17 07:22 0.63 MG Metoprolol Tartrate (Lopressor Tab) 100 mg BID PO 07/29/17 21:00 08/28/17 20:59 08/08/17 08:21 100 MG Amlodipine Besylate (Norvasc Tab) 10 mg QAM PO 07/30/17 09:00 08/29/17 08:59 08/08/17 08:21 10 MG Diphenhydramine HCl (Benadryl Inj) 50 mg 4XDQ4H PRN IV 07/30/17 13:30 08/29/17 13:29 Heparin Sodium (Porcine) (Heparin Sq 5000 Unit/0.5ml) 5,000 unit Q8 SQ 07/30/17 22:00 08/29/17 21:59 08/08/17 06:24 5,000 UNIT Prednisone (PredniSONE TAB) 20 mg BIDM PO 07/31/17 07:30 08/30/17 07:29 08/08/17 08:22 20 MG Furosemide (Lasix Tab) 40 mg QAM PO 08/01/17 09:00 08/31/17 08:59 08/08/17 08:21 40 MG Calcitriol (Rocaltrol Cap) 0.25 mcg Q2D@0900 PO 08/02/17 09:00 09/01/17 08:59 08/08/17 08:22 0.25 MCG Calcium Carbonate (Tums Chew Tab) 500 mg TID PO 08/02/17 09:00 09/01/17 08:59 08/08/17 08:23 500 MG Enteral Nutritional Formula (Boost Glucose Control) 1 can BID@1000,2100 PO 08/01/17 21:00 08/31/17 20:59 08/07/17 09:52 1 CAN Insulin Human NPH (novoLIN-N NPH) 12 units QDB SC 08/06/17 07:30 09/05/17 07:29 08/08/17 08:33 12 UNITS Vitamin B Complex/ Vit C/Folic Acid (Nephrocaps) 1 cap QAM PO 08/07/17 09:00 09/06/17 08:59 08/08/17 08:22 1 CAP Insulin Human NPH (novoLIN-N NPH) 8 units QDD SC 08/07/17 16:45 09/06/17 16:44 08/07/17 16:54 8 UNITS Daptomycin 350 mg/ Syringe 7 ml @ 3.5 mls/min Q48H IV 08/07/17 13:15 08/17/17 13:14 08/07/17 13:24 3.5 MLS/MIN Fentanyl (Duragesic Patch) 25 mcg Q72H TD 08/07/17 18:00 08/21/17 17:59 08/07/17 17:42 25 MCG Miscellaneous (Fentanyl Patch Remove & Waste) 1 ea Q72H N/A 08/10/17 17:59 09/09/17 17:58 Miscellaneous Information (Check Fentanyl Patch Placement) 1 ea QS N/A 08/08/17 00:00 09/07/17 00:00 08/08/17 08:22 1 EA Morphine Sulfate (MoRPHine SULFATE INJ) 2 mg Q3H PRN IV 08/07/17 22:15 08/21/17 22:14 08/08/17 08:33 2 MG Impression (1) Cellulitis of left hand (2) ESRD (end stage renal disease) on dialysis (3) Renal cell carcinoma (4) Anemia (5) Diabetes type 2, controlled Mr. Christy had metastatic RCCA. He underwent left nephrectomy 2015. He did not tolerate Sutent due to high grade proteinuria. Opdivo caused arthralgia, colitis and possible pneumonitis. He was most recently treated w/ Cabometyx. 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 Colonic reanastamosis was performed at the time of surgery. The patient has a complex medical history including persistent soft tissue infection of the left hand, C. Difficile colitis, metastatic RCCA, interstitial lung disease requiring steroid therapy, dc glabrata infection of pleural and peritoneal fluid Mr. Christy's dialysis has been complicated by prolonged bleeding from the AVF following treatment. 07/23 doppler study revealed a high grade venous outflow stenosis. He required fistulagram and coil embolization 07/25/16. Recommendations END STAGE RENAL DISEASE: -- Patient dialyzed yesterday without complication. 3 L UF obtained. Electrolyte balance is acceptable this am. Will plan next HD for am w/ continued UF -- L arm is swollen. Will ask vascular surgery to review recent fistulagram for evidence of central venous stenosis ANEMIA: -- Patient was transfused 1 unit PRBC 08/06/17 -- Hgb is slowly trending downward. Patient has no active bleeding. Will monitor HYPERTENSION: -- BP is mildly elevated this am -- Continue Amlodipine -- Will monitor BP following UF on HD CKD-BMD: -- Although patient has a low vitamin D his corrected serum calcium is high. Will stop vitamin D supplements and check an ionized Ca. OTHER: -- Recommend physical therapy evaluation for strengthening exercises
--- NOTE | 2017-08-08 11:52 | Critical Care Consultation ---
Critical Care Consultation Date of Consultation: Aug 08, 2017. Attending Physician: Gil Montana M.D. Reason for Consultation: Hypoxemia History of Present Illness Asked to evaluate for need for ICU care. His history is long and difficult. Metastatic Renal Cell with complications including perforation of intestine. ESRD and dialysis also noted. Since the perforation has required oxygen supplement. Patch infiltrates have been noted associated with this. A generous right pleural effusion has been tapped and dc noted. A complicated left hand cellulitis noted. His CXR today appears more substantial with regard to the infiltrates. A-a gradient is somewhat worse. Despite this he reports feeling somewhat stronger and without worsening dyspnea. No cough or sputum noted. No fever or chills. No hemodynamic changes. Family History Cervical cancer Diabetes mellitus Heart disease Hypertension Myocardial infarction Pancreatic cancer Prostate cancer Social History Smoking Status: Never Smoker Smokeless Tobacco Use: No Alcohol Use: none Drug Use: none Marital Status: single Housing Status: lives alone Occupation Status: disabled Allergies Coded Allergies: Iodinated Diagnostic Agents (Verified Allergy, Unknown, oil based, severe headaches, 06/20/17) EVENT OCCURED IN 1971, PT STATES HE HAS HAD 3 DIFFERENT WATER BASED IVP DYES WITH NO ISSUE Home Medications Scheduled Amlodipine (Norvasc), 10 MG PO QAM Aspirin (Aspirin Ec), 81 MG PO QAM Cabozantinib S-Malate (Cabometyx), 60 MG PO QAM Calcitriol (Calcitriol), 0.25 MCG PO Q2D Calcium Carbonate (Tums), 500 MG PO WM Daptomycin (Daptomycin), 350 MG IV Q48H Fentanyl (Fentanyl), 25 PATCH TOP CQ72HR Furosemide (Furosemide), 40 MG PO QAM Hydralazine Hcl (Apresoline), 100 MG PO TID Insulin Glargine (Lantus Solostar), 14 UNITS SC HS Insulin Lispro (Human) (Humalog Kwikpen), 0 SQ TID Lactobacillus Acidophilus (Floranex), 2 TABS OR TID Lisinopril (Lisinopril), 1 TAB OR DAILY Methadone HCl (Methadone HCl), 10 MG PO TID Metoprolol Tartrate (Lopressor) (Lopressor), 100 MG PO BID Oxycodone Hcl (Oxycodone Hcl), 10 MG PO TID Prednisone Tab (Prednisone), 10 MG PO TID Simvastatin (Zocor), 20 MG PO QPM Tamsulosin Hcl (Flomax), 0.4 MG PO HS Scheduled PRN Polyethylene (Miralax), 17 GM PO DAILY PRN for Constipation Current Inpatient Medications Current Inpatient Medications Medications (Trade) Dose Ordered Sig/Edward Route Start Time Stop Time Status Last Admin Dose Admin Ondansetron HCl (Zofran Inj) 4 mg Q4H PRN IV 07/11/17 03:00 08/10/17 02:59 08/04/17 15:58 4 MG Prochlorperazine Edisylate 5 mg/ Syringe 5 ml @ 5 mls/min Q4H PRN IV 07/11/17 14:00 08/10/17 13:59 Lactulose (Chronulac Syrup) 30 gm Q4H PRN PO 07/11/17 16:45 08/10/17 16:44 Miscellaneous (Fentanyl Patch Remove & Waste) 1 ea Q3D@0859 N/A 07/22/17 08:59 08/21/17 08:58 08/06/17 08:20 1 EA Hydralazine HCl (HydrALAZINE INJ) 5 mg Q4 PRN IV. 07/21/17 17:15 08/20/17 17:14 Future Hold 07/25/17 23:45 5 MG Hydralazine HCl (HydrALAZINE INJ) 5 mg TID IV. 07/21/17 21:00 08/20/17 20:59 Future Hold 07/30/17 08:33 5 MG Miscellaneous Information (Consult Glycemic Management Pharmacy) 1 ea UD PRN N/A 07/23/17 13:14 08/22/17 13:13 Insulin Aspart (novoLOG ASPART) SLIDING SCALE G... ACHS SC 07/27/17 11:30 08/26/17 11:29 08/07/17 16:53 9 UNITS Ipratropium [place] (Atrovent 0.02% 0.5MG/2.5ML Neb) 0.5 mg Q6R INH 07/29/17 09:00 08/28/17 08:59 08/08/17 07:22 0.5 MG Levalbuterol (Xopenex 0.63 Mg/ 3 Ml Neb) 0.63 mg Q6R INH 07/29/17 09:00 08/28/17 08:59 08/08/17 07:22 0.63 MG Metoprolol Tartrate (Lopressor Tab) 100 mg BID PO 07/29/17 21:00 08/28/17 20:59 08/08/17 08:21 100 MG Amlodipine Besylate (Norvasc Tab) 10 mg QAM PO 07/30/17 09:00 08/29/17 08:59 08/08/17 08:21 10 MG Diphenhydramine HCl (Benadryl Inj) 50 mg 4XDQ4H PRN IV 07/30/17 13:30 08/29/17 13:29 Heparin Sodium (Porcine) (Heparin Sq 5000 Unit/0.5ml) 5,000 unit Q8 SQ 07/30/17 22:00 08/29/17 21:59 08/08/17 06:24 5,000 UNIT Prednisone (PredniSONE TAB) 20 mg BIDM PO 07/31/17 07:30 08/30/17 07:29 08/08/17 08:22 20 MG Furosemide (Lasix Tab) 40 mg QAM PO 08/01/17 09:00 08/31/17 08:59 08/08/17 08:21 40 MG Calcium Carbonate (Tums Chew Tab) 500 mg TID PO 08/02/17 09:00 09/01/17 08:59 08/08/17 08:23 500 MG Enteral Nutritional Formula (Boost Glucose Control) 1 can BID@1000,2100 PO 08/01/17 21:00 08/31/17 20:59 08/07/17 09:52 1 CAN Insulin Human NPH (novoLIN-N NPH) 12 units QDB SC 08/06/17 07:30 09/05/17 07:29 08/08/17 08:33 12 UNITS Vitamin B Complex/ Vit C/Folic Acid (Nephrocaps) 1 cap QAM PO 08/07/17 09:00 09/06/17 08:59 08/08/17 08:22 1 CAP Insulin Human NPH (novoLIN-N NPH) 8 units QDD SC 08/07/17 16:45 09/06/17 16:44 08/07/17 16:54 8 UNITS Daptomycin 350 mg/ Syringe 7 ml @ 3.5 mls/min Q48H IV 08/07/17 13:15 08/17/17 13:14 08/07/17 13:24 3.5 MLS/MIN Fentanyl (Duragesic Patch) 25 mcg Q72H TD 08/07/17 18:00 08/21/17 17:59 08/07/17 17:42 25 MCG Miscellaneous (Fentanyl Patch Remove & Waste) 1 ea Q72H N/A 08/10/17 17:59 09/09/17 17:58 Miscellaneous Information (Check Fentanyl Patch Placement) 1 ea QS N/A 08/08/17 00:00 09/07/17 00:00 08/08/17 08:22 1 EA Morphine Sulfate (MoRPHine SULFATE INJ) 2 mg Q3H PRN IV 08/07/17 22:15 08/21/17 22:14 08/08/17 08:33 2 MG Epoetin Mohsen (Procrit Inj) 8,000 units ONE ONCE IV. 08/09/17 06:00 08/09/17 06:01 UNV Heparin Sodium (Porcine) (No Heparin In Dialysis) 1 ea ONE ONCE N/A 08/09/17 06:00 08/09/17 06:01 UNV Review of Systems as noted in the HPI. NO worsening dyspnea or sputum. No fever or chills. No new target pain. He does feel somewhat stronger. No neuro changes. No increased GI complaints. Physical Exam Date Time Temp Pulse Resp B/P (MAP) Pulse Ox O2 Delivery O2 Flow Rate FiO2 08/08/17 11:32 37.0 109 24 133/74 (93) 94 BiPAP 50 08/08/17 07:32 37.0 96 20 154/68 (96) 91 Diffusion Mask 8.0 08/08/17 07:20 84 20 93 Mask 15.0 08/08/17 04:00 Oxymask BiPAP 08/08/17 04:00 36.5 85 20 123/70 (87) 95 Nasal Cannula 3.0 08/08/17 03:55 36.7 98 24 163/67 (99) 92 BiPAP 50 08/08/17 01:53 99 17 90 BiPAP/CPAP 50 08/08/17 01:53 99 90 50 08/08/17 00:02 37.2 97 18 160/71 (100) 90 08/07/17 23:59 Oxymask BiPAP 08/07/17 22:16 104 91 50 08/07/17 22:15 104 24 91 BiPAP/CPAP 50 08/07/17 20:00 90 Oxymask 15.0 08/07/17 19:40 37.0 104 22 169/69 (102) 89 Oxymask 15.0 08/07/17 16:00 92 Oxymask 15.0 08/07/17 15:18 37.1 113 22 185/81 (115) 91 Oxymask 15.0 08/07/17 12:50 36.9 104 175/93 (120) 08/07/17 12:50 36.9 104 175/93 (120) 08/07/17 12:30 108 184/84 08/07/17 12:15 97 200/97 08/07/17 12:03 107 197/85 08/07/17 12:00 Oxymask 15.0 08/07/17 11:45 102 139/77 He appears chronically ill HEENT--no focal changes. Respiratory--diminished in the bases--no wheezing or rhonchi Cardio--rate is acceptable--generalized edema GI--functional--wound looking good Musculo--no target Neuro--no focal changes.Symmetric weakness consistent with critical illness Derm--left hand with some nodular changes Psych--calm and appropriate Laboratory Results Last 24 Hours Test 08/07/17 14:53 08/07/17 16:15 08/07/17 20:15 08/07/17 23:46 Bedside Glucose 67 mg/dl 107 mg/dl 105 mg/dl 117 mg/dl Test 08/08/17 04:11 08/08/17 06:45 08/08/17 11:09 08/08/17 11:12 White Blood Count 16.86 K/uL Red Blood Count 2.68 M/uL Hemoglobin 8.2 g/dL Hematocrit 25.0 % Mean Corpuscular Volume 93.3 fL Mean Corpuscular Hemoglobin 30.6 pg Mean Corpuscular Hemoglobin Concent 32.8 g/dl RDW Standard Deviation 63.2 fL RDW Coefficient of Variation 18.9 % Platelet Count 119 K/uL Mean Platelet Volume 11.8 fL Nucleated RBC Absolute Count (auto) 0.27 K/uL Nucleated Red Blood Cells % 1.6 % Sodium Level 133 mmol/L Potassium Level 4.7 mmol/L Chloride Level 95 mmol/L Carbon Dioxide Level 28 mmol/L Anion Gap 10.0 mmol/L Blood Urea Nitrogen 54 mg/dl Creatinine 3.02 mg/dl Est Creatinine Clear Calc Drug Dose 25.9 ml/min Estimated GFR () 24.3 Estimated GFR (Non- 21.0 BUN/Creatinine Ratio 17.7 Random Glucose 142 mg/dl Calcium Level 8.2 mg/dl 25-Hydroxy Vitamin D Total 17.4 ng/ml Bedside Glucose 150 mg/dl 290 mg/dl 287 mg/dl Diagnostic Results patchy infiltrates greater on the left today. Assessment & Plan Complicated case of metastatic renal cell cancer with ESRD who developed an intestinal perforation and c.diff. He has been hypoxemic since the event. I suspect some element of ARDS in this setting. I agree with the requirement of close monitoring but given his clinical level of comfort and current exam, continued status on this benoit seems ok for now. Our team will continue to reevaluate status. A call to the ID specialist placed to discuss the length of antifungal treatment. No other recommendations for now.
[2017-08-08] MEDS ORDERED: EPOETIN ALFA INJ 8,000 UNITS in SYRINGE 0 ML IV. SCH (12:00)
--- NOTE | 2017-08-08 12:49 | DIAGNOSTIC IMAGING REPORT ---
CHEST ONE VIEW PORTABLE CLINICAL HISTORY: Persistent hypoxia. Increased oxygen requirements. COMPARISON STUDY: 08/08/2017 FINDINGS: The cardiac and mediastinal contours remain stable. There is a right-sided A-Port catheter unchanged in position. There are diffuse bilateral pulmonary airspace opacities left greater than right. These remain similar to the prior study.[ There are small bilateral pleural effusions. IMPRESSION: Stable asymmetric bilateral pulmonary airspace opacities. Diagnostic considerations remain asymmetric pulmonary edema versus a multifocal pneumonia. Electronically signed by: Isael Aaron M.D. 08/08/2017 12:48 PM Dictated Date/Time: 08/08/2017 12:46 PM
--- NOTE | 2017-08-08 13:57 | PULMONARY PROGRESS NOTE ---
DATE: 08/08/2017 CHIEF COMPLAINT: Progressive dyspnea and weakness. SUBJECTIVE: A 61-year-old white male who was seen yesterday by myself covering for the pulmonary team and asked to see the patient this morning by Dr. Sasha Jackson, who felt that the patient's clinical picture had deteriorated. I had ordered a chest x-ray for today that clearly showed that in the last 6 days, the patient has progressed with bilateral airspace opacities, left greater than right, either consistent with ARDS or fluid overload. Review of the CTA done on 07/30/2017 by myself showed that there was no evidence of central pulmonary emboli, but at that time a right pleural effusion that subsequently was drained by a thoracentesis was noted and extensive ground-glass opacities with consolidation throughout the lungs have progressed since 07/14/2017. The patient states he did not feel he was more dyspneic than usual, but clearly has very high oxygen demands and is currently on BiPAP with 50% FiO2, but at the time of my evaluation this morning, had O2 sats of 91%, wearing an oxygen diffusion mask at 8 liters. His appetite has been poor. His weight is 80.8 kilograms. He continues to have 1+ pitting edema involving the upper extremities and 2+ involving the lower extremities with areas of cellulitis and almost bullous changes in some of the regions from his cellulitis. The patient has a history of metastatic renal cell carcinoma with left nephrectomy in 2015. He was INTOLERANT TO SUTENT due to high grade proteinuria and OPDIVO CAUSED ARTHRALGIAS, COLITIS AND PROBABLE PNEUMONITIS. He was then started recently on Cabometyx, but then developed a microperforation of the jejunum, requiring a partial colectomy on 07/21/2017. Colonic reanastomosis was performed at the time of the surgery. He has also been treated for pseudomembranous colitis and because of his interstitial lung disease, he was placed on steroid therapy. The thoracentesis fluid grew out Cecliia glabrata and he has received 9 days of I believe caspofungin. The left arm remains swollen. He was transfused a unit of packed red blood cells on 08/06/2017. There was no active bleeding. Nephrology was asked to see the patient in consultation to see if additional dialysis was required for today or tomorrow and I asked Dieter Brown and Dr. De La Fuente to see the patient as well given the significant worsening of his chest radiograph. My understanding is that the patient requests full resuscitation including mechanical ventilator assistance if necessary and wishes us to be aggressive with medical management. PHYSICAL EXAMINATION: CURRENT VITAL SIGNS: Temperature 37, pulse 109, respiratory rate 24, blood pressure 134/74, and O2 sat 94% with current BiPAP and 50% FiO2. SKIN: Reddened cellulitic changes remain involving the upper extremity with small bulla noted. HEENT: Atraumatic and normocephalic. PERRLA. LUNGS: Rales [address] on the left greater than right. CARDIAC: Sinus tachycardia. I do not appreciate a gallop. ABDOMEN: Soft. Mildly protuberant. Hypoactive bowel sounds. EXTREMITIES: +1 to +2 pitting edema bilaterally. NEUROLOGIC: He is oriented x3. No lateralizing signs. LABORATORY DATA: White count 16,800, H&H 8.2 and 25. BUN 54 and creatinine 3.0. The patient's previous serum albumin on 08/05/2017 was only 1.2. OVERALL ASSESSMENT AND PLAN: A 61-year-old with a history of metastatic renal cell carcinoma, chronic renal disease, requiring hemodialysis, intolerance to 2 previous chemotherapy regimens with I suspect an interstitial pneumonitis well reported entity from the second agent. In addition, I believe that the patient may be developing acute respiratory distress syndrome or at least a noncardiogenic pulmonary edema, aggravated by profound hypoalbuminemia and possible early sepsis. Although, the patient appears hemodynamically stable and does not exhibit further signs of respiratory embarrassment. I am concerned that the patient could develop acute hypoxemic respiratory failure and I have alerted the project drilling engineer to that possibility. We will observe for any sign of clinical deterioration and follow along with you. Thank you very much for this pulmonary consultation. TALIA
--- NOTE | 2017-08-08 15:51 | Infectious Disease Progress Nt ---
Progress Note Date of Service Aug 08, 2017. Subjective Pt evaluation today including: conversation w/ patient, physical exam, chart review, lab review, review of studies, conversation w/ remediation consultant, review of inpatient medication list Patient continues with significant oxygen demands, but denies any worsening of his breathing. Chest x-ray clearly getting worse with increasing infiltration most consistent with progressive ARDS. No fever. Left upper extremity remains red and swollen. All Other Systems: Reviewed and Negative Medications Current Inpatient Medications Medications (Trade) Dose Ordered Sig/Edward Route Start Time Stop Time Status Last Admin Dose Admin Ondansetron HCl (Zofran Inj) 4 mg Q4H PRN IV 07/11/17 03:00 08/10/17 02:59 08/04/17 15:58 4 MG Prochlorperazine Edisylate 5 mg/ Syringe 5 ml @ 5 mls/min Q4H PRN IV 07/11/17 14:00 08/10/17 13:59 Lactulose (Chronulac Syrup) 30 gm Q4H PRN PO 07/11/17 16:45 08/10/17 16:44 Miscellaneous (Fentanyl Patch Remove & Waste) 1 ea Q3D@0859 N/A 07/22/17 08:59 08/21/17 08:58 08/06/17 08:20 1 EA Hydralazine HCl (HydrALAZINE INJ) 5 mg Q4 PRN IV. 07/21/17 17:15 08/20/17 17:14 Future Hold 07/25/17 23:45 5 MG Hydralazine HCl (HydrALAZINE INJ) 5 mg TID IV. 07/21/17 21:00 08/20/17 20:59 Future Hold 07/30/17 08:33 5 MG Miscellaneous Information (Consult Glycemic Management Pharmacy) 1 ea UD PRN N/A 07/23/17 13:14 08/22/17 13:13 Insulin Aspart (novoLOG ASPART) SLIDING SCALE G... ACHS SC 07/27/17 11:30 08/26/17 11:29 08/08/17 12:31 10 UNITS Ipratropium [place] (Atrovent 0.02% 0.5MG/2.5ML Neb) 0.5 mg Q6R INH 07/29/17 09:00 08/28/17 08:59 1/16/18 15:09 0.5 MG Levalbuterol (Xopenex 0.63 Mg/ 3 Ml Neb) 0.63 mg Q6R INH 07/29/17 09:00 08/28/17 08:59 08/08/17 15:09 0.63 MG Metoprolol Tartrate (Lopressor Tab) 100 mg BID PO 07/29/17 21:00 08/28/17 20:59 08/08/17 08:21 100 MG Amlodipine Besylate (Norvasc Tab) 10 mg QAM PO 07/30/17 09:00 08/29/17 08:59 08/08/17 08:21 10 MG Diphenhydramine HCl (Benadryl Inj) 50 mg 4XDQ4H PRN IV 07/30/17 13:30 08/29/17 13:29 Heparin Sodium (Porcine) (Heparin Sq 5000 Unit/0.5ml) 5,000 unit Q8 SQ 07/30/17 22:00 08/29/17 21:59 08/08/17 06:24 5,000 UNIT Prednisone (PredniSONE TAB) 20 mg BIDM PO 07/31/17 07:30 08/30/17 07:29 08/08/17 08:22 20 MG Furosemide (Lasix Tab) 40 mg QAM PO 08/01/17 09:00 08/31/17 08:59 08/08/17 08:21 40 MG Calcium Carbonate (Tums Chew Tab) 500 mg TID PO 08/02/17 09:00 09/01/17 08:59 08/08/17 12:32 500 MG Enteral Nutritional Formula (Boost Glucose Control) 1 can BID@1000,2100 PO 08/01/17 21:00 08/31/17 20:59 08/08/17 10:00 1 CAN Insulin Human NPH (novoLIN-N NPH) 12 units QDB SC 08/06/17 07:30 09/05/17 07:29 08/08/17 08:33 12 UNITS Vitamin B Complex/ Vit C/Folic Acid (Nephrocaps) 1 cap QAM PO 08/07/17 09:00 09/06/17 08:59 08/08/17 08:22 1 CAP Insulin Human NPH (novoLIN-N NPH) 8 units QDD SC 08/07/17 16:45 09/06/17 16:44 08/07/17 16:54 8 UNITS Daptomycin 350 mg/ Syringe 7 ml @ 3.5 mls/min Q48H IV 08/07/17 13:15 08/17/17 13:14 08/07/17 13:24 3.5 MLS/MIN Fentanyl (Duragesic Patch) 25 mcg Q72H TD 08/07/17 18:00 08/21/17 17:59 08/07/17 17:42 25 MCG Miscellaneous (Fentanyl Patch Remove & Waste) 1 ea Q72H N/A 08/10/17 17:59 09/09/17 17:58 Miscellaneous Information (Check Fentanyl Patch Placement) 1 ea QS N/A 08/08/17 00:00 09/07/17 00:00 08/08/17 08:22 1 EA Morphine Sulfate (MoRPHine SULFATE INJ) 2 mg Q3H PRN IV 08/07/17 22:15 08/21/17 22:14 08/08/17 12:25 2 MG Heparin Sodium (Porcine) (No Heparin In Dialysis) 1 ea TODAY@0600 N/A 08/09/17 06:00 08/09/17 18:00 Epoetin Mohsen 8000 units/Syringe 0.4 ml @ 1 mls/min TODAY@0700 IV. 08/09/17 07:00 08/09/17 18:00 Objective Vital Signs Date Time Temp Pulse Resp B/P (MAP) Pulse Ox O2 Delivery O2 Flow Rate FiO2 08/08/17 15:13 94 20 95 Mask 15.0 08/08/17 12:00 Oxymask 08/08/17 11:32 37.0 109 24 133/74 (93) 94 BiPAP 50 08/08/17 08:00 36.9 105 20 154/72 (99) 91 08/08/17 08:00 Oxymask 08/08/17 07:32 37.0 96 20 154/68 (96) 91 Diffusion Mask 8.0 08/08/17 07:20 84 20 93 Mask 15.0 08/08/17 04:00 Oxymask BiPAP 08/08/17 04:00 36.5 85 20 123/70 (87) 95 Nasal Cannula 3.0 08/08/17 03:55 36.7 98 24 163/67 (99) 92 BiPAP 50 08/08/17 01:53 99 17 90 BiPAP/CPAP 50 08/08/17 01:53 99 90 50 08/08/17 00:02 37.2 97 18 160/71 (100) 90 08/07/17 23:59 Oxymask BiPAP 08/07/17 22:16 104 91 50 08/07/17 22:15 104 24 91 BiPAP/CPAP 50 08/07/17 20:00 90 Oxymask 15.0 08/07/17 19:40 37.0 104 22 169/69 (102) 89 Oxymask 15.0 08/07/17 16:00 92 Oxymask 15.0 Physical Exam General Appearance: WD/WN, no apparent distress, + pertinent finding (Wearing BiPAP mask) Eyes: normal inspection, EOMI, sclerae normal ENT: normal ENT inspection, pharynx normal Neck: supple, no adenopathy, trachea midline Respiratory/Chest: chest non-tender, no respiratory distress, + rales ( Bibasilar) Cardiovascular: regular rate, rhythm, no gallop, no murmur Abdomen: normal bowel sounds, non tender, soft, no organomegaly Extremities: normal range of motion, no calf tenderness, + pertinent finding ( Left arm swollen and erythematous) Neurologic/Psychiatric: alert, oriented x 3 Skin: normal color, no rash, + pertinent finding (Left arm and hand swelling) Lymphatic: no adenopathy Laboratory Results Last 24 Hours Test 08/07/17 16:15 08/07/17 20:15 08/07/17 23:46 08/08/17 04:11 Bedside Glucose 107 mg/dl 105 mg/dl 117 mg/dl White Blood Count 16.86 K/uL Red Blood Count 2.68 M/uL Hemoglobin 8.2 g/dL Hematocrit 25.0 % Mean Corpuscular Volume 93.3 fL Mean Corpuscular Hemoglobin 30.6 pg Mean Corpuscular Hemoglobin Concent 32.8 g/dl RDW Standard Deviation 63.2 fL RDW Coefficient of Variation 18.9 % Platelet Count 119 K/uL Mean Platelet Volume 11.8 fL Nucleated RBC Absolute Count (auto) 0.27 K/uL Nucleated Red Blood Cells % 1.6 % Sodium Level 133 mmol/L Potassium Level 4.7 mmol/L Chloride Level 95 mmol/L Carbon Dioxide Level 28 mmol/L Anion Gap 10.0 mmol/L Blood Urea Nitrogen 54 mg/dl Creatinine 3.02 mg/dl Est Creatinine Clear Calc Drug Dose 25.9 ml/min Estimated GFR () 24.3 Estimated GFR (Non- 21.0 BUN/Creatinine Ratio 17.7 Random Glucose 142 mg/dl Calcium Level 8.2 mg/dl 25-Hydroxy Vitamin D Total 17.4 ng/ml Test 08/08/17 06:45 08/08/17 11:09 08/08/17 11:12 Bedside Glucose 150 mg/dl 290 mg/dl 287 mg/dl Patient Name: CHANO ANDERSON Unit Number: [id number] Dictated: 08/08/[id number] Transcribed: 08/08/171245 ARG Printed Date/Time: [~ rep prt dt]/[~ rep prt tm] [~ rep ct labl] - [~ rep ct ivnm] [facility] [place] [address] Dictated: 08/08/171245 Transcribed: 08/08/171245 ARG Printed Date/Time: [~ rep prt dt]/[~ rep prt tm] [~ rep ct labl] - [~ rep ct ivnm] DIAGNOSTIC IMAGING [~ rep ct add3]] CHEST ONE VIEW PORTABLE CLINICAL HISTORY: Persistent hypoxia. Increased oxygen requirements. COMPARISON STUDY: 08/08/2017 FINDINGS: The cardiac and mediastinal contours remain stable. There is a right-sided A-Port catheter unchanged in position. There are diffuse bilateral pulmonary airspace opacities left greater than right. These remain similar to the prior study.[ There are small bilateral pleural effusions. IMPRESSION: Stable asymmetric bilateral pulmonary airspace opacities. Diagnostic considerations remain asymmetric pulmonary edema versus a multifocal pneumonia. Electronically signed by: Isael Aaron M.D. 08/08/2017 12:48 PM Dictated Date/Time: 08/08/2017 12:46 PM The status of this report is Signed. Draft = Not yet reviewed or approved by Radiologist. Signed = Reviewed and approved by Radiologist. <AttendingPhy>Gil Montana M.D.</AttendingPhy> <FamilyPhy>Salvador Muller M.D.< /FamilyPhy> <PrimaryPhy>Long,Salvador M.D.</PrimaryPhy> <UnitNumber>[id number]</ UnitNumber> <VisitNumber>[id number]</VisitNumber> <PatientName>CHANO ANDERSON</ PatientName> <DateOfBirth>1955</DateOfBirth> <Location>[facility]</Location> < ServiceDate></ServiceDate> <MNE>ESINDI</MNE> <OrderingPhy>Dieter Brown PA-C</ OrderingPhy> <OrderingPhyMNE>f rep ord dr caldera</OrderingPhyMNE> <DictatingPhyMNE> f rep dict dr caldera</DictatingPhyMNE> <CCListMNE>f rep ct mne</CCListMNE> < AdmittingPhyMNE>f pt admit dr caldera</AdmittingPhyMNE> <AttendingPhyMNE>f pt attend dr caldera</AttendingPhyMNE> <ConsultingPhyMNE>f pt consult dr caldera</ConsultingPhyMNE> <FamilyPhyMNE>f pt fam dr caldera</FamilyPhyMNE> <OtherPhyMNE>f pt other dr caldera</OtherPhyMNE> < PrimaryPhyMNE>f pt prim care dr caldera</PrimaryPhyMNE> <ReferringPhyMNE>f pt referring dr caldera</ReferringPhyMNE> Assessment and Plan 61-year-old male with metastatic renal cell carcinoma with left hand cellulitis , Possible reflex sympathetic dystrophy, subsequent development of pneumonitis, C difficile infection, and then 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 Culture of peritoneal and pleural fluid both growing Cecilia glabrata, caspofungin to be continued, likely in the range of 2 weeks from time of his thoracentesis.. Left hand swelling and erythema nail slightly worse, still suspect that this represents reflex sympathetic dystrophy. However have recommended restarting daptomycin to see if there will be clinical response. Will continue to follow.
[2017-08-08] MEDS ORDERED: NURSING VERBAL MED ORDER ONE (19:15)
[2017-08-08] MEDS ORDERED: POLYETHYLENE (MIRALAX) 17 GM PACK PO ONE (21:00)
[2017-08-08] MEDS: METHADONE HCL 10 MG TAB PO SCH (23:26)
[2017-08-09] VITALS (33 sets, daily range): BP systolic 82–179; BP diastolic 43–76; PULSE 86–103; TEMP 36.5–39.9; O2SAT 85–98
[2017-08-09] MEDS: LEVALBUTEROL 0.63MG/3 ML NEB INH SCH ×4 (01:41→19:20)
[2017-08-09] MEDS: IPRATROPIUM BROMIDE NEB SOLN 0.02% 2.5 ML VIAL INH SCH ×4 (01:41→19:20)
[2017-08-09 05:06] LABS: HEMOGLOBIN 7.9 g/dL (14.0-18.0); MEAN CELL VOLUME 92.7 fL (80-100); MEAN CORPUSCULAR HEMOGLOBIN 30.5 pg (25-34); MEAN CORPUSCULAR HGB CONC 32.9 g/dl (32-36); MEAN PLATELET VOLUME 11.2 fL (7.4-10.4); NUCLEATED RED BLOOD CELL ABS 0.09 K/uL (0-0); PLATELET COUNT 103 K/uL (130-400); RED CELL DISTRIBUTION WIDTH CV 18.3 % (11.5-14.5); RED CELL DISTRIBUTION WIDTH SD 60.7 fL (36.4-46.3); WHITE BLOOD COUNT 15.86 K/uL (4.8-10.8)
[2017-08-09 05:33] LABS: CALCIUM 8.7 mg/dl (8.5-10.1); CREATININE 4.15 mg/dl (0.60-1.40); POTASSIUM 4.8 mmol/L (3.5-5.1)
[2017-08-09] MEDS ORDERED: EPOETIN ALFA 10,000 UNITS/ML VIAL IV. ONE (06:00)
[2017-08-09] MEDS: HEPARIN SOD 5000 UNIT/0.5 ML CARP SQ SCH ×3 (06:00→20:51)
[2017-08-09] MEDS ORDERED: POLYETHYLENE (MIRALAX) 17 GM PACK PO PRN (07:00)
[2017-08-09] MEDS ORDERED: EPOETIN ALFA INJ 8,000 UNITS in SYRINGE 0 ML IV. SCH (07:00)
--- NOTE | 2017-08-09 07:25 | Progress Note ---
Subjective Date of Service: Aug 08, 2017. Subjective Pt evaluation today including: conversation w/ patient, physical exam Seen at [place] is a 61 yo male who has been here for over 1 month. Patient reports having no newcomplaints. He states no significant improvement in his left hand today. He reports his pain is well controlled. Problem List Medical Problems: (1) Acute dyspnea Status: Acute (2) Chronic kidney disease Status: Acute (3) Failure of outpatient treatment Status: Acute (4) Left arm cellulitis Status: Acute (5) Renal cell carcinoma Status: Acute Review of Systems Constitutional: No fever, No chills Eyes: No worsening of vision ENT: No hearing loss Respiratory: No cough, No sputum Cardiac: No chest pain, No orthopnea Abdomen: No pain, No nausea Neurologic: No memory loss, No paralysis Endo: No fatigue Skin: + rash, No itch All Other Systems: Reviewed and Negative Medications Current Inpatient Medications Medications (Trade) Dose Ordered Sig/Edward Route Start Time Stop Time Status Last Admin Dose Admin Ondansetron HCl (Zofran Inj) 4 mg Q4H PRN IV 07/11/17 03:00 08/10/17 02:59 08/04/17 15:58 4 MG Prochlorperazine Edisylate 5 mg/ Syringe 5 ml @ 5 mls/min Q4H PRN IV 07/11/17 14:00 08/10/17 13:59 Lactulose (Chronulac Syrup) 30 gm Q4H PRN PO 07/11/17 16:45 08/10/17 16:44 Miscellaneous (Fentanyl Patch Remove & Waste) 1 ea Q3D@0859 N/A 07/22/17 08:59 08/21/17 08:58 08/06/17 08:20 1 EA Hydralazine HCl (HydrALAZINE INJ) 5 mg Q4 PRN IV. 07/21/17 17:15 08/20/17 17:14 Future Hold 07/25/17 23:45 5 MG Hydralazine HCl (HydrALAZINE INJ) 5 mg TID IV. 07/21/17 21:00 08/20/17 20:59 Future Hold 07/30/17 08:33 5 MG Miscellaneous Information (Consult Glycemic Management Pharmacy) 1 ea UD PRN N/A 07/23/17 13:14 08/22/17 13:13 Insulin Aspart (novoLOG ASPART) SLIDING SCALE G... ACHS SC 07/27/17 11:30 08/26/17 11:29 08/08/17 22:21 7 UNITS Ipratropium [place] (Atrovent 0.02% 0.5MG/2.5ML Neb) 0.5 mg Q6R INH 07/29/17 09:00 08/28/17 08:59 08/09/17 07:11 0.5 MG Levalbuterol (Xopenex 0.63 Mg/ 3 Ml Neb) 0.63 mg Q6R INH 07/29/17 09:00 08/28/17 08:59 08/09/17 07:11 0.63 MG Metoprolol Tartrate (Lopressor Tab) 100 mg BID PO 07/29/17 21:00 08/28/17 20:59 08/08/17 22:19 100 MG Amlodipine Besylate (Norvasc Tab) 10 mg QAM PO 07/30/17 09:00 08/29/17 08:59 08/08/17 08:21 10 MG Diphenhydramine HCl (Benadryl Inj) 50 mg 4XDQ4H PRN IV 07/30/17 13:30 08/29/17 13:29 Heparin Sodium (Porcine) (Heparin Sq 5000 Unit/0.5ml) 5,000 unit Q8 SQ 07/30/17 22:00 08/29/17 21:59 08/08/17 22:22 5,000 UNIT Prednisone (PredniSONE TAB) 20 mg BIDM PO 07/31/17 07:30 08/30/17 07:29 08/08/17 17:18 20 MG Furosemide (Lasix Tab) 40 mg QAM PO 08/01/17 09:00 08/31/17 08:59 08/08/17 08:21 40 MG Calcium Carbonate (Tums Chew Tab) 500 mg TID PO 08/02/17 09:00 09/01/17 08:59 08/08/17 12:32 500 MG Enteral Nutritional Formula (Boost Glucose Control) 1 can BID@1000,2100 PO 08/01/17 21:00 08/31/17 20:59 08/08/17 22:18 1 CAN Insulin Human NPH (novoLIN-N NPH) 12 units QDB SC 08/06/17 07:30 09/05/17 07:29 08/08/17 08:33 12 UNITS Vitamin B Complex/ Vit C/Folic Acid (Nephrocaps) 1 cap QAM PO 08/07/17 09:00 09/06/17 08:59 08/08/17 08:22 1 CAP Insulin Human NPH (novoLIN-N NPH) 8 units QDD SC 08/07/17 16:45 09/06/17 16:44 08/08/17 17:25 8 UNITS Daptomycin 350 mg/ Syringe 7 ml @ 3.5 mls/min Q48H IV 08/07/17 13:15 08/17/17 13:14 08/07/17 13:24 3.5 MLS/MIN Fentanyl (Duragesic Patch) 25 mcg Q72H TD 08/07/17 18:00 08/21/17 17:59 08/07/17 17:42 25 MCG Miscellaneous (Fentanyl Patch Remove & Waste) 1 ea Q72H N/A 08/10/17 17:59 09/09/17 17:58 Miscellaneous Information (Check Fentanyl Patch Placement) 1 ea QS N/A 08/08/17 00:00 09/07/17 00:00 08/08/17 23:27 1 EA Morphine Sulfate (MoRPHine SULFATE INJ) 2 mg Q3H PRN IV 08/07/17 22:15 08/21/17 22:14 08/08/17 12:25 2 MG Heparin Sodium (Porcine) (No Heparin In Dialysis) 1 ea TODAY@0600 N/A 08/09/17 06:00 08/09/17 18:00 Epoetin Mohsen 8000 units/Syringe 0.4 ml @ 1 mls/min TODAY@0700 IV. 08/09/17 07:00 08/09/17 18:00 Polyethylene (Miralax Powder Packet) 17 gm DAILY PRN PO 08/09/17 07:00 09/08/17 06:59 Methadone HCl (Dolophine Tab) 20 mg BID PO 08/08/17 23:00 08/22/17 22:59 08/08/17 23:26 20 MG Objective Vital Signs Date Time Temp Pulse Resp B/P (MAP) Pulse Ox O2 Delivery O2 Flow Rate FiO2 08/09/17 07:12 91 18 93 Mask 15.0 50 08/09/17 04:00 Oxymask 15.0 BiPAP 08/09/17 03:56 36.9 89 18 121/64 (83) 95 08/09/17 01:44 93 18 97 BiPAP/CPAP 50 08/09/17 01:43 93 97 50 08/09/17 00:09 37.0 97 18 138/65 (89) 93 08/09/17 00:05 100 94 50 08/09/17 00:00 Oxymask 15.0 BiPAP 08/08/17 20:32 36.5 97 20 154/70 (98) 94 Oxymask 12.0 08/08/17 19:34 103 20 95 Mask 12.0 08/08/17 16:00 Oxymask 08/08/17 15:48 36.8 102 20 155/75 (101) 93 08/08/17 15:13 94 20 95 Mask 15.0 08/08/17 12:00 Oxymask 08/08/17 11:32 37.0 109 24 133/74 (93) 94 BiPAP 50 08/08/17 08:00 36.9 105 20 154/72 (99) 91 08/08/17 08:00 Oxymask 08/08/17 07:32 37.0 96 20 154/68 (96) 91 Diffusion Mask 8.0 08/08/17 07:20 84 20 93 Mask 15.0 Physical Exam Comments: General Appearance: no apparent distress, + pertinent finding (OxyMask) Eyes: normal inspection, PERRL ENT: hearing grossly normal Neck: supple Respiratory/Chest: lungs clear, no respiratory distress, no accessory muscle use Cardiovascular: regular rate, rhythm Abdomen: normal bowel sounds, non tender, soft, + pertinent finding (Incision site bandage C/D/I) Extremities: no calf tenderness, + swelling (+2-3 pitting edema of bilateral lower extremities ), + pertinent finding (L hand with increased erythema, warmth , swelling- no drainage noted ) Neurologic/Psychiatric: alert, normal mood/affect, oriented x 3 Skin: normal color, warm/dry, no rash Laboratory Results Last 24 Hours Test 08/08/17 11:09 08/08/17 11:12 08/08/17 16:22 08/08/17 20:25 Bedside Glucose 290 mg/dl 287 mg/dl 322 mg/dl 322 mg/dl Test 08/09/17 04:50 White Blood Count 15.86 K/uL Red Blood Count 2.59 M/uL Hemoglobin 7.9 g/dL Hematocrit 24.0 % Mean Corpuscular Volume 92.7 fL Mean Corpuscular Hemoglobin 30.5 pg Mean Corpuscular Hemoglobin Concent 32.9 g/dl RDW Standard Deviation 60.7 fL RDW Coefficient of Variation 18.3 % Platelet Count 103 K/uL Mean Platelet Volume 11.2 fL Nucleated RBC Absolute Count (auto) 0.09 K/uL Nucleated Red Blood Cells % 0.6 % Sodium Level 131 mmol/L Potassium Level 4.8 mmol/L Chloride Level 96 mmol/L Carbon Dioxide Level 28 mmol/L Anion Gap 7.0 mmol/L Blood Urea Nitrogen 80 mg/dl Creatinine 4.15 mg/dl Est Creatinine Clear Calc Drug Dose 18.8 ml/min Estimated GFR () 16.5 Estimated GFR (Non- 14.3 BUN/Creatinine Ratio 19.3 Random Glucose 198 mg/dl Calcium Level 8.7 mg/dl Ionized Calcium 1.20 mmol/l Assessment and Plan Mr. Christy is a 61 y/o M with PMH of ESRD on HD, RCC, DMII. Admitted for L hand cellulitis having failed outpatient management. Abdominal pain, found to have incidental rectus sheath hematoma, C.diff positive colitis and subsequent bowel perforation on 07/21, now s/p colectomy, anemia, and bilateral pneumonia on imaging. C. diff colitis, perforated jejunal bowel (suspected to result from chemo regimen) s/p colectomy, rectus sheath hematoma: -Treated and completed vanco. - Monitoring on tele- no acute events - Surgical management as per surgery, POD #15- TPN completed on 07/29/17 - Currently on mechanical soft diet - Underlying severe protein malnutrition, albumin 1.3- boost BID added - C.Diff + 07/12/17: Completed 9 days of PO Vancomycin - C. 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 Ergocalciferol 50, 000 q7d indefinitely + daily D3 2000 when patient resumes oral intake- recheck levels in 12 weeks - Calcitriol and CaCO3 Left hand cellulitis, ?reflex sympathetic dystrophy: - Initial MRI did not determine any osteomyelitis -It appears to be reflex sympathetic dystrophy, however ID would like to continue with dapto. - ID consulted: -- Treated initially with Ertapenem/Daptomycin, then transitioned to Cefepime - treated 07/22- 07/30 -- More erythema, swelling, warmth- Daptomycin started on 08/07 per ID recommendations Acute hypoxia respiratory failure, ?secondary to pulmonary edema vs cryptogenic organizing pneumonia/drug related pneumonitis: - Continue O2 supplementation to maintain SaO2 >92%, wean as tolerated - Started on heparin drip on 07/26 for presumed PE- CTA 07/30/17 negative for PE, thus heparin drip stopped - Large R pleural effusion s/p thoracentesis completed 07/30/17- pleural pathology w/ no malignancy, pleural cultures growing yeast- on IV Caspofungin - IV Solu-Medrol- transitioned to Prednisone 20 mg BID on 07/31 for prolonged taper - DuoNebs QID and PRN - Pulmonary following- thinks poor respiratory status is secondary to inactivity - encouraged incentive spirometer, OOB in chair throughout day, working w/ PT DMII: Pharmacy consulted for glycemic management Acute anemia- transfused a total of 7 u PRBCs: - Nephrology following- Epogen with dialysis - H&H- hgb 6.9 on 08/06, transfused 1 u PRBcs and 120 mg Lasix IV x1- hgb stable at 8.2 today - Continue to follow H&H and transfuse PRN for hgb <7 or symptomatic HTN, HLD: - Furosemide 40 mg PO daily, Amlodipine 10 mg daily, Metoprolol 100 mg PO BID, Lisinopril 40 mg daily - Hydralazine 100 mg TID held- BPs well controlled at this time - Monitor I&Os and daily weights - Simvastatin 20 mg HS held due to NPO status- will resume once tolerating regular diet BPH: Tamsulosin 0.4 mg PO daily held due to NPO status- will resume once tolerating regular diet DVT Prophylaxis: Heparin SQ TID Code Status: LEVEL I, FULL Dispo: Discharge uncertain- planning for [facility] at discharge- PT/OT and CM consulted Continued [facility] stay due to: ambulation difficulties, multiple IV medications needed, other (still with high O2 requirement, CXR worsening) Discharge planning: uncertain
[2017-08-09] MEDS: NEPHROCAPS PO SCH (07:51)
[2017-08-09] MEDS: FUROSEMIDE 40 MG TAB PO SCH (07:51)
[2017-08-09] MEDS: METOPROLOL TARTRATE 100 MG TAB PO SCH ×2 (07:52→20:47)
[2017-08-09] MEDS: CALCIUM CARBONATE 500 MG CHEWABLE PO SCH ×3 (07:52→17:39)
[2017-08-09] MEDS: AMLODIPINE BESYLATE 5 MG TAB PO SCH (07:52)
[2017-08-09] MEDS: METHADONE HCL 10 MG TAB PO SCH ×2 (07:55→20:49)
[2017-08-09] MEDS: INSULIN HUMAN NPH SC SCH (07:56)
[2017-08-09] MEDS: CHECK FENTANYL PATCH PLACEMENT SCH ×2 (08:00→15:21)
[2017-08-09] MEDS: INSULIN ASPART 100 UNITS/ML 3 ML PEN SC SCH ×4 (08:00→21:00)
[2017-08-09] MEDS: FENTANYL PATCH REMOVE & WASTE SCH (08:01)
[2017-08-09] MEDS: FENTANYL 25 MCG/HR TDSY TD SCH (08:12)
--- NOTE | 2017-08-09 10:01 | Nephrology Progress Note ---
Nephrology Progress Note Date of Service Aug 09, 2017. Chief Complaint Provide inpatient HD and assist w/ medical management of this patient w/ ESRD Subjective Mr. Christy was seen & examined in preparation for HD this morning. He required BiPAP last night. He is currently breathing comfortably on 50% face mask. Mr. Christy denies overt blood loss. Hgb has dropped to 7.9 this am. Review of Systems Constitutional: No fever Cardiovascular: No chest pain Respiratory: + dyspnea at rest Abdomen: No pain, No vomiting, No diarrhea Extremities: + leg edema A complete review of systems was performed. Pertinent positives are noted above. All other systems are negative. Vital Signs Last 8 Hrs Date Time Temp Pulse Resp B/P (MAP) Pulse Ox O2 Delivery O2 Flow Rate FiO2 08/09/17 08:00 Oxymask 08/09/17 07:55 37.0 101 18 119/62 (81) 90 08/09/17 07:12 91 18 93 Mask 15.0 50 08/09/17 04:00 Oxymask 15.0 BiPAP 08/09/17 03:56 36.9 89 18 121/64 (83) 95 Last Recorded Weight Weight (Kilograms): 83.100 Physical Exam General Appearance: + mild distress (requires 02 50% face mask) Head: normocephalic, atraumatic Eyes: PERRL, EOMI Neck: no adenopathy Respiratory/Chest: no accessory muscle use, + crackles Cardiovascular: + tachycardia Abdomen/GI: soft (hypoactive bowel sounds) Extremities/Musculoskelatal: + pertinent finding (2+ dependent edema of the arms and legs) Neurologic/Psych: alert, oriented x 3 Family History Cervical cancer Diabetes mellitus Heart disease Hypertension Myocardial infarction Pancreatic cancer Prostate cancer Negative for CKD/ESRD Social History Smokeless Tobacco Use: No Alcohol Use: none Drug Use: none Marital Status: single Housing Status: lives alone Occupation: disabled Single, retired. Formerly worked for [employer]. Never a smoker. Laboratory Results Past 24 Hours 08/09/17 04:50 08/09/17 04:50 Test 08/08/17 11:09 08/08/17 11:12 08/08/17 16:22 08/08/17 20:25 Bedside Glucose 290 mg/dl (70-99) 287 mg/dl (70-99) 322 mg/dl (70-99) 322 mg/dl (70-99) Test 08/09/17 04:50 08/09/17 06:59 Red Blood Count 2.59 M/uL (4.7-6.1) Mean Corpuscular Volume 92.7 fL (80-100) Mean Corpuscular Hemoglobin 30.5 pg (25-34) Mean Corpuscular Hemoglobin Concent 32.9 g/dl (32-36) RDW Standard Deviation 60.7 fL (36.4-46.3) RDW Coefficient of Variation 18.3 % (11.5-14.5) Mean Platelet Volume 11.2 fL (7.4-10.4) Nucleated RBC Absolute Count (auto) 0.09 K/uL (0-0) Nucleated Red Blood Cells % 0.6 % Anion Gap 7.0 mmol/L (3-11) Est Creatinine Clear Calc Drug Dose 18.8 ml/min Estimated GFR () 16.5 Estimated GFR (Non- 14.3 BUN/Creatinine Ratio 19.3 (10-20) Calcium Level 8.7 mg/dl (8.5-10.1) Ionized Calcium 1.20 mmol/l (1.12-1.32) Bedside Glucose 173 mg/dl (70-99) Allergies Coded Allergies: Iodinated Diagnostic Agents (Verified Allergy, Unknown, oil based, severe headaches, 06/20/17) EVENT OCCURED IN 1971, PT STATES HE HAS HAD 3 DIFFERENT WATER BASED IVP DYES WITH NO ISSUE Medications Current Inpatient Medications Medications (Trade) Dose Ordered Sig/Edward Route Start Time Stop Time Status Last Admin Dose Admin Ondansetron HCl (Zofran Inj) 4 mg Q4H PRN IV 07/11/17 03:00 08/10/17 02:59 08/04/17 15:58 4 MG Prochlorperazine Edisylate 5 mg/ Syringe 5 ml @ 5 mls/min Q4H PRN IV 07/11/17 14:00 08/10/17 13:59 Lactulose (Chronulac Syrup) 30 gm Q4H PRN PO 07/11/17 16:45 08/10/17 16:44 Miscellaneous (Fentanyl Patch Remove & Waste) 1 ea Q3D@0859 N/A 07/22/17 08:59 08/21/17 08:58 08/09/17 08:01 1 EA Hydralazine HCl (HydrALAZINE INJ) 5 mg Q4 PRN IV. 07/21/17 17:15 08/20/17 17:14 Future Hold 07/25/17 23:45 5 MG Hydralazine HCl (HydrALAZINE INJ) 5 mg TID IV. 07/21/17 21:00 08/20/17 20:59 Future Hold 07/30/17 08:33 5 MG Miscellaneous Information (Consult Glycemic Management Pharmacy) 1 ea UD PRN N/A 07/23/17 13:14 08/22/17 13:13 Insulin Aspart (novoLOG ASPART) SLIDING SCALE G... ACHS SC 07/27/17 11:30 08/26/17 11:29 08/09/17 08:00 7 UNITS Ipratropium [place] (Atrovent 0.02% 0.5MG/2.5ML Neb) 0.5 mg Q6R INH 07/29/17 09:00 08/28/17 08:59 08/09/17 07:11 0.5 MG Levalbuterol (Xopenex 0.63 Mg/ 3 Ml Neb) 0.63 mg Q6R INH 07/29/17 09:00 08/28/17 08:59 08/09/17 07:11 0.63 MG Metoprolol Tartrate (Lopressor Tab) 100 mg BID PO 07/29/17 21:00 08/28/17 20:59 08/09/17 07:52 100 MG Amlodipine Besylate (Norvasc Tab) 10 mg QAM PO 07/30/17 09:00 08/29/17 08:59 08/09/17 07:52 10 MG Diphenhydramine HCl (Benadryl Inj) 50 mg 4XDQ4H PRN IV 07/30/17 13:30 08/29/17 13:29 Heparin Sodium (Porcine) (Heparin Sq 5000 Unit/0.5ml) 5,000 unit Q8 SQ 07/30/17 22:00 08/29/17 21:59 08/08/17 22:22 5,000 UNIT Prednisone (PredniSONE TAB) 20 mg BIDM PO 07/31/17 07:30 08/30/17 07:29 08/09/17 07:51 20 MG Furosemide (Lasix Tab) 40 mg QAM PO 08/01/17 09:00 08/31/17 08:59 08/09/17 07:51 40 MG Calcium Carbonate (Tums Chew Tab) 500 mg TID PO 08/02/17 09:00 09/01/17 08:59 08/09/17 07:52 500 MG Enteral Nutritional Formula (Boost Glucose Control) 1 can BID@1000,2100 PO 08/01/17 21:00 08/31/17 20:59 08/08/17 22:18 1 CAN Vitamin B Complex/ Vit C/Folic Acid (Nephrocaps) 1 cap QAM PO 08/07/17 09:00 09/06/17 08:59 08/09/17 07:51 1 CAP Daptomycin 350 mg/ Syringe 7 ml @ 3.5 mls/min Q48H IV 08/07/17 13:15 08/17/17 13:14 08/07/17 13:24 3.5 MLS/MIN Fentanyl (Duragesic Patch) 25 mcg Q72H TD 08/07/17 18:00 08/21/17 17:59 08/09/17 08:12 25 MCG Miscellaneous (Fentanyl Patch Remove & Waste) 1 ea Q72H N/A 08/10/17 17:59 09/09/17 17:58 Miscellaneous Information (Check Fentanyl Patch Placement) 1 ea QS N/A 08/08/17 00:00 09/07/17 00:00 08/09/17 08:00 1 EA Morphine Sulfate (MoRPHine SULFATE INJ) 2 mg Q3H PRN IV 08/07/17 22:15 08/21/17 22:14 08/08/17 12:25 2 MG Heparin Sodium (Porcine) (No Heparin In Dialysis) 1 ea TODAY@0600 N/A 08/09/17 06:00 08/09/17 18:00 Epoetin Mohsen 8000 units/Syringe 0.4 ml @ 1 mls/min TODAY@0700 IV. 08/09/17 07:00 08/09/17 18:00 Polyethylene (Miralax Powder Packet) 17 gm DAILY PRN PO 08/09/17 07:00 09/08/17 06:59 Methadone HCl (Dolophine Tab) 20 mg BID PO 08/08/17 23:00 08/22/17 22:59 08/09/17 07:55 20 MG Insulin Human NPH (novoLIN-N NPH) 14 units QDB SC 08/09/17 07:30 09/08/17 07:29 08/09/17 07:56 14 UNITS Insulin Human NPH (novoLIN-N NPH) 10 units QDD SC 08/09/17 16:45 09/08/17 16:44 Impression (1) Cellulitis of left hand (2) ESRD (end stage renal disease) on dialysis (3) Renal cell carcinoma (4) Anemia (5) Diabetes type 2, controlled Mr. Christy had metastatic RCCA. He underwent left nephrectomy 2015. He did not tolerate Sutent due to high grade proteinuria. Opdivo caused arthralgia, colitis and possible pneumonitis. He was most recently treated w/ Cabometyx. 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 Colonic reanastamosis was performed at the time of surgery. The patient has a complex medical history including persistent soft tissue infection of the left hand, C. Difficile colitis, metastatic RCCA, interstitial lung disease requiring steroid therapy, dc glabrata infection of pleural and peritoneal fluid Mr. Christy's dialysis has been complicated by prolonged bleeding from the AVF following treatment. 07/23 doppler study revealed a high grade venous outflow stenosis. He required fistulagram and coil embolization 07/25/16. Recommendations END STAGE RENAL DISEASE: -- HD today. Heparin free. Will attempt 4 L UF -- L arm is swollen. Spoke w/ Dr. Darden yesterday. No central venous stenosis on most recent fistulagram -- Will obtain CXR following HD today and consider addition HD tomorrow for continued UF ANEMIA: -- Patient was transfused 1 unit PRBC 08/06/17. Will transfuse one unit PRBC on HD today -- Will check iron studies w/ am labs tomorrow HYPERTENSION: -- BP is acceptable -- Continue Amlodipine CKD-BMD: -- Ionized calcium is within normal limits -- Vitamin D was low. Will resume Ergocalciferol therapy OTHER: -- Recommend physical therapy evaluation for strengthening exercises
[2017-08-09] MEDS: BOOST GLUCOSE CONTROL PO SCH ×2 (10:09→20:49)
--- NOTE | 2017-08-09 11:41 | Pharmacy Progress Note ---
Pharmacy Glycemic Short Note 2 Date of Service Aug 09, 2017. ASSESSMENT: * Pt receiving SQ basal bolus insulin regimen for hyperglycemia secondary to baseline DM,stress/infection, recent surgery, steroids * Steroids tapered to Prednisone 20mg PO BIDM since 07/31/18 * Patient's BSGs have been very labile and difficult to control secondary to dialysis, fluctuating PO intake, and prednisone 20mg PO BIDM. * Patient has been receiving ~45 units of insulin per day. * BSGs over the past 24 hrs: 150, 287, 322, 322 * On the same regimen 48 hours ago his BSGs were all under 140 mg/dL * Given risk of severe hypoglycemia - titration to his insulin regimen has been difficult * Since no BSGs were in range yesterday, I will go up slightly on NPH dosing; however, pt is to receive HD today which will bring his BSGs down regardless of regimen change PLAN FOR INPATIENT GLYCEMIC CONTROL: Maintain BSGs in the 150-250mg/dl range. This is considered adequate control for patient based on prognosis. * Basal insulin * NPH 14 units SQ daily in AM with breakfast + increase PM/dinner dose from 10 units * Bolus insulin * NovoLog per scale ACHS + in between meal checks per patient request and ,04 * Goal Range: Low 120 mg/dL - High 160 mg/dL * Correction Factor: 25 mg/dL/unit * Nutritional / Prandial insulin per carb ratio of 1 unit per 8 grams CHO consumed
[2017-08-09] MEDS: POLYETHYLENE (MIRALAX) 17 GM PACK PO SCH (14:06)
[2017-08-09] MEDS: ERGOCALCIFEROL 50,000 INTER.UNIT CAP PO SCH (14:07)
--- NOTE | 2017-08-09 14:13 | Hospitalist Progress Note ---
Hospitalist Progress Note Date of Service Aug 09, 2017. (Ledy Bhakta ., PA-C) Subjective Pt evaluation today including: conversation w/ patient, physical exam, lab review, conversation w/ marketing consultant, review of inpatient medication list Patient feeling well this AM. Sitting up in bed. No SOB. Breathing feels at baseline. Tolerating dialysis well. States he needed IV Morphine last evening because his Methadone was stopped. Eating and drinking OK. Believes L hand looks improved since starting IV Daptomycin. Patient denies any fever, chills, sweats, lightheadedness, dizziness, vision changes, CP, palpitations, edema, SOB, wheezing, cough, abdominal pain, nausea, vomiting, diarrhea, urinary symptoms, melena, numbness/tingling, weakness, muscle/joint pain, anxiety/depression, active bleeding, or new skin discoloration/changes. Discussed w/ Dr. Jackson- does not think needs palliative care talk at this time. Thinks patient is doing better. (Ledy Bhakta ., PA-C) Medications Current Inpatient Medications Medications (Trade) Dose Ordered Sig/Edward Route Start Time Stop Time Status Last Admin Dose Admin Ondansetron HCl (Zofran Inj) 4 mg Q4H PRN IV 07/11/17 03:00 08/10/17 02:59 08/04/17 15:58 4 MG Prochlorperazine Edisylate 5 mg/ Syringe 5 ml @ 5 mls/min Q4H PRN IV 07/11/17 14:00 08/10/17 13:59 Lactulose (Chronulac Syrup) 30 gm Q4H PRN PO 07/11/17 16:45 08/10/17 16:44 Miscellaneous (Fentanyl Patch Remove & Waste) 1 ea Q3D@0859 N/A 07/22/17 08:59 08/21/17 08:58 08/09/17 08:01 1 EA Hydralazine HCl (HydrALAZINE INJ) 5 mg Q4 PRN IV. 07/21/17 17:15 08/20/17 17:14 Future Hold 07/25/17 23:45 5 MG Hydralazine HCl (HydrALAZINE INJ) 5 mg TID IV. 07/21/17 21:00 08/20/17 20:59 Future Hold 07/30/17 08:33 5 MG Miscellaneous Information (Consult Glycemic Management Pharmacy) 1 ea UD PRN N/A 07/23/17 13:14 08/22/17 13:13 Insulin Aspart (novoLOG ASPART) SLIDING SCALE G... ACHS SC 07/27/17 11:30 08/26/17 11:29 08/09/17 08:00 7 UNITS Ipratropium [place] (Atrovent 0.02% 0.5MG/2.5ML Neb) 0.5 mg Q6R INH 07/29/17 09:00 08/28/17 08:59 08/09/17 07:11 0.5 MG Levalbuterol (Xopenex 0.63 Mg/ 3 Ml Neb) 0.63 mg Q6R INH 07/29/17 09:00 08/28/17 08:59 08/09/17 07:11 0.63 MG Metoprolol Tartrate (Lopressor Tab) 100 mg BID PO 07/29/17 21:00 08/28/17 20:59 08/09/17 07:52 100 MG Amlodipine Besylate (Norvasc Tab) 10 mg QAM PO 07/30/17 09:00 08/29/17 08:59 08/09/17 07:52 10 MG Diphenhydramine HCl (Benadryl Inj) 50 mg 4XDQ4H PRN IV 07/30/17 13:30 08/29/17 13:29 Heparin Sodium (Porcine) (Heparin Sq 5000 Unit/0.5ml) 5,000 unit Q8 SQ 07/30/17 22:00 08/29/17 21:59 08/08/17 22:22 5,000 UNIT Prednisone (PredniSONE TAB) 20 mg BIDM PO 07/31/17 07:30 08/30/17 07:29 08/09/17 07:51 20 MG Furosemide (Lasix Tab) 40 mg QAM PO 08/01/17 09:00 08/31/17 08:59 08/09/17 07:51 40 MG Calcium Carbonate (Tums Chew Tab) 500 mg TID PO 08/02/17 09:00 09/01/17 08:59 08/09/17 07:52 500 MG Enteral Nutritional Formula (Boost Glucose Control) 1 can BID@1000,2100 PO 08/01/17 21:00 08/31/17 20:59 08/09/17 10:09 1 CAN Vitamin B Complex/ Vit C/Folic Acid (Nephrocaps) 1 cap QAM PO 08/07/17 09:00 09/06/17 08:59 08/09/17 07:51 1 CAP Daptomycin 350 mg/ Syringe 7 ml @ 3.5 mls/min Q48H IV 08/07/17 13:15 08/17/17 13:14 08/07/17 13:24 3.5 MLS/MIN Fentanyl (Duragesic Patch) 25 mcg Q72H TD 08/07/17 18:00 08/21/17 17:59 08/09/17 08:12 25 MCG Miscellaneous (Fentanyl Patch Remove & Waste) 1 ea Q72H N/A 08/10/17 17:59 09/09/17 17:58 Miscellaneous Information (Check Fentanyl Patch Placement) 1 ea QS N/A 08/08/17 00:00 09/07/17 00:00 08/09/17 08:00 1 EA Morphine Sulfate (MoRPHine SULFATE INJ) 2 mg Q3H PRN IV 08/07/17 22:15 08/21/17 22:14 08/08/17 12:25 2 MG Heparin Sodium (Porcine) (No Heparin In Dialysis) 1 ea TODAY@0600 N/A 08/09/17 06:00 08/09/17 18:00 08/09/17 06:00 1 EA Epoetin Mohsen 8000 units/Syringe 0.4 ml @ 1 mls/min TODAY@0700 IV. 08/09/17 07:00 08/09/17 18:00 08/09/17 10:54 1 MLS/MIN Polyethylene (Miralax Powder Packet) 17 gm DAILY PRN PO 08/09/17 07:00 09/08/17 06:59 Methadone HCl (Dolophine Tab) 20 mg BID PO 08/08/17 23:00 08/22/17 22:59 08/09/17 07:55 20 MG Insulin Human NPH (novoLIN-N NPH) 14 units QDB SC 08/09/17 07:30 09/08/17 07:29 08/09/17 07:56 14 UNITS Insulin Human NPH (novoLIN-N NPH) 10 units QDD SC 08/09/17 16:45 09/08/17 16:44 Ergocalciferol (Vitamin D Cap) 50,000 interunit We@0900 PO 08/09/17 10:30 09/08/17 10:29 Polyethylene (Miralax Powder Packet) 17 gm DAILY PO 08/09/17 13:00 09/08/17 12:59 Heparin Sodium (Porcine) (Heparin 100 Unit/ml 5ml Flush) 5 ml PRN PRN IV 08/09/17 13:00 09/08/17 12:59 (Ldey Bhakta PA-C) Objective Vital Signs Date Time Temp Pulse Resp B/P (MAP) Pulse Ox O2 Delivery O2 Flow Rate FiO2 08/09/17 13:00 100 91/54 08/09/17 12:45 95 111/62 08/09/17 12:30 95 130/60 08/09/17 12:28 39.9 93 16 122/63 91 13.0 08/09/17 12:20 36.9 95 16 125/68 91 13.0 08/09/17 12:15 93 126/62 08/09/17 12:04 36.9 98 18 110/54 85 13.0 08/09/17 12:00 98 110/54 08/09/17 12:00 Oxymask 08/09/17 11:59 37.0 86 18 119/60 (79) 98 Mask 08/09/17 11:45 103 106/59 08/09/17 11:30 97 120/61 08/09/17 11:15 102 82/43 08/09/17 11:00 97 99/55 08/09/17 10:45 99 89/55 08/09/17 10:30 98 98/57 08/09/17 10:15 95 119/62 08/09/17 10:00 92 129/67 08/09/17 09:45 90 142/73 08/09/17 09:30 96 179/76 08/09/17 09:10 36.9 97 170/76 (107) 08/09/17 08:00 Oxymask 08/09/17 07:55 37.0 101 18 119/62 (81) 90 08/09/17 07:12 91 18 93 Mask 15.0 50 08/09/17 04:00 Oxymask 15.0 BiPAP 08/09/17 03:56 36.9 89 18 121/64 (83) 95 08/09/17 01:44 93 18 97 BiPAP/CPAP 50 08/09/17 01:43 93 97 50 08/09/17 00:09 37.0 97 18 138/65 (89) 93 08/09/17 00:05 100 94 50 08/09/17 00:00 Oxymask 15.0 BiPAP 08/08/17 20:32 36.5 97 20 154/70 (98) 94 Oxymask 12.0 08/08/17 19:34 103 20 95 Mask 12.0 08/08/17 16:00 Oxymask 08/08/17 15:48 36.8 102 20 155/75 (101) 93 08/08/17 15:13 94 20 95 Mask 15.0 (Ledy Bhakta, PA-C) Physical Exam General Appearance: no apparent distress, + pertinent finding (OxyMask on; chronically ill appearing ) Eyes: normal inspection, PERRL ENT: hearing grossly normal Neck: supple Respiratory/Chest: no respiratory distress, no accessory muscle use, + decreased breath sounds (throughout ) Cardiovascular: regular rate, rhythm Abdomen: normal bowel sounds, non tender, soft, + pertinent finding (incision site banadage C/D/I ) Extremities: no calf tenderness, + swelling (+3 pitting edema of bilateral lower extremities ) Neurologic/Psychiatric: alert, normal mood/affect, oriented x 3 Skin: warm/dry, no rash, + pallor (Ledy Bhakta ., PA-C) Laboratory Results Last 24 Hours Test 08/08/17 16:22 08/08/17 20:25 08/09/17 00:02 08/09/17 04:50 Bedside Glucose 322 mg/dl 322 mg/dl 279 mg/dl White Blood Count 15.86 K/uL Red Blood Count 2.59 M/uL Hemoglobin 7.9 g/dL Hematocrit 24.0 % Mean Corpuscular Volume 92.7 fL Mean Corpuscular Hemoglobin 30.5 pg Mean Corpuscular Hemoglobin Concent 32.9 g/dl RDW Standard Deviation 60.7 fL RDW Coefficient of Variation 18.3 % Platelet Count 103 K/uL Mean Platelet Volume 11.2 fL Nucleated RBC Absolute Count (auto) 0.09 K/uL Nucleated Red Blood Cells % 0.6 % Sodium Level 131 mmol/L Potassium Level 4.8 mmol/L Chloride Level 96 mmol/L Carbon Dioxide Level 28 mmol/L Anion Gap 7.0 mmol/L Blood Urea Nitrogen 80 mg/dl Creatinine 4.15 mg/dl Est Creatinine Clear Calc Drug Dose 18.8 ml/min Estimated GFR () 16.5 Estimated GFR (Non- 14.3 BUN/Creatinine Ratio 19.3 Random Glucose 198 mg/dl Calcium Level 8.7 mg/dl Ionized Calcium 1.20 mmol/l Test 08/09/17 06:59 08/09/17 11:22 Bedside Glucose 173 mg/dl 126 mg/dl (Ledy Bhakta, PADorcasC) Assessment and Plan Mr. Christy is a 61 y/o M with PMH of ESRD on HD, RCC, DMII. Admitted for L hand cellulitis having failed outpatient management. Abdominal pain, found to have incidental rectus sheath hematoma, C.diff positive colitis and subsequent bowel perforation on 07/21, now s/p colectomy, anemia, and bilateral pneumonia on imaging. C. diff colitis, perforated jejunal bowel (suspected to result from chemo regimen) s/p colectomy, rectus sheath hematoma: - Monitoring on tele- no acute events - Surgical management as per surgery, POD #17- TPN completed on 07/29/17 - Currently on mechanical soft diet - Underlying severe protein malnutrition, albumin 1.3- boost BID - C.Diff + 07/12/17: Completed 9 days of PO Vancomycin on 07/21 - C. glabratum growth- Completed Caspofungin x10 days on 08/06 - Pain controlled w/ Methadone and Morphine IV PRN Metastatic RCC s/p L nephrectomy, chronic pain: - Oncology following- holding treatment at this time due to acute issues- f/u outpatient - Palliative care following- appreciate recommendations for pain control- Methadone, Fentanyl, and Morphine PRN ESRD HD, secondary to RCC/ s/p left nephrectomy- HD on MWF, ESRD bone mineral disease: - Nephrology following - 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 on 07/23-- vascular surgery consulted- s/p AVR repair on 07/25/17 - Hypocalcemia w/ vitamin D level of 17.4: Ergocalciferol 50,000 q7d indefinitely + daily D3 1999 when patient resumes oral intake- recheck levels in 12 weeks - Calcitriol and CaCO3 Left hand cellulitis, ?reflex sympathetic dystrophy: - Initial MRI did not determine any osteomyelitis - ID consulted: -- Treated initially with Ertapenem/Daptomycin, then transitioned to Cefepime - treated 07/22- 07/30 -- More erythema, swelling, warmth- Daptomycin started on 08/07 per ID recommendations Acute hypoxia respiratory failure, ?secondary to pulmonary edema vs cryptogenic organizing pneumonia/drug related pneumonitis: - Continue O2 supplementation to maintain SaO2 >92%, wean as tolerated - Started on heparin drip on 07/26 for presumed PE- CTA 07/30/17 negative for PE, thus heparin drip stopped - Large R pleural effusion s/p thoracentesis completed 07/30/17- pleural pathology w/ no malignancy, pleural cultures growing yeast- on IV Caspofungin - IV Solu-Medrol- transitioned to Prednisone 20 mg BID on 07/31 for prolonged taper - DuoNebs QID and PRN - Pulmonary following- thinks poor respiratory status is secondary to inactivity - encouraged incentive spirometer, OOB in chair throughout day, working w/ PT - Blender consulted on 08/08 for ?ARDS- does not think needs ICU at this time - following- CXR today pending DMII: Pharmacy consulted for glycemic management Acute anemia- transfused a total of 8 u PRBCs: - Nephrology following- Epogen with dialysis - H&H- hgb 7.9 on 08/09, transfused 1 u PRBCs - Continue to follow H&H and transfuse PRN for hgb <7 or symptomatic - Iron panel pending HTN, HLD: - Furosemide 40 mg PO daily, Amlodipine 10 mg daily, Metoprolol 100 mg PO BID, Lisinopril 40 mg daily - Hydralazine 100 mg TID held- BPs well controlled at this time - Monitor I&Os and daily weights - Simvastatin 20 mg HS held due to NPO status- will resume once tolerating regular diet BPH: Tamsulosin 0.4 mg PO daily held due to NPO status- will resume once tolerating regular diet DVT Prophylaxis: Heparin SQ TID Code Status: LEVEL I, FULL Dispo: Discharge uncertain- planning for [facility] at discharge- PT/OT and CM consulted (Ledy Bhakta, SARITA) Supervising Note Dr. Montana I performed a history and physical examination on the patient. I reviewed above note and agree with it. I discussed plan with APC and patient. During my face to face encounter with the patient, I answered all of the patient's questions. (Gil Montana M.D.)
--- NOTE | 2017-08-09 14:29 | DIAGNOSTIC IMAGING REPORT ---
CHEST ONE VIEW PORTABLE CLINICAL HISTORY: hypoxia AND SWELLING COMPARISON STUDY: 08/08/2017 FINDINGS: The heart is normal in size. There is a right sided A-Port catheter unchanged in position. There are persistent diffuse bilateral pulmonary airspace opacity similar to the preceding study. Small pleural effusions are again suspected.[ IMPRESSION: Stable asymmetric diffuse bilateral pulmonary airspace opacities. Small pleural effusions left greater than right. Electronically signed by: Isael Aaron M.D. 08/09/2017 2:28 PM Dictated Date/Time: 08/09/2017 2:27 PM
[2017-08-09] MEDS: DAPTOmycin IV 350 MG in SYRINGE 0 ML IV SCH (15:13)
--- NOTE | 2017-08-09 16:40 | PULMONARY PROGRESS NOTE ---
DATE: 08/09/2017 DATE: 08/09/2017 SUBJECTIVE: The patient seems and feels better today, less confused, although remains tremulous and apparently underwent dialysis this morning. He was seen by Dr. Bell. He did require BiPAP the previous night with high O2 requirements. He seems somewhat improved today with vital signs temperature 36.9, pulse 91 and regular, blood pressure 167/62 and O2 sat 94% on 13 liters flow rate. OBJECTIVE: SKIN: Unchanged. HEAD, EYES, EARS, NOSE, AND THROAT: Atraumatic. LUNGS: Rales at the left base. Distant greater than right. CARDIAC: Regular rate and rhythm. I do not appreciate a gallop. ABDOMEN: Soft, protuberant. EXTREMITIES: +1 to +2 pitting edema. NEUROLOGIC: Intact. LABORATORY DATA: White count 15,800, H&H 7.9 and 24. Sodium 131 yesterday. BUN 80, creatinine 4.1. Chest x-ray yesterday was over penetrated compared to previous day but shows stable asymmetric diffuse bilateral pulmonary airspace opacities, small effusion on the left greater than right. Yesterday weight was 84.4 kilograms. I don't have today's weight. His driest weight was 80.8 kilograms the day before. OVERALL ASSESSMENT: A 61-year-old with complex medical history with metastatic renal cell carcinoma. Patient on chronic methadone for chronic pain syndrome with end-stage renal disease currently receiving scheduled regimen of hemodialysis and with apparent interstitial lung disease, possibly medication or chemotherapy induced and superimposed fluid overload. The patient appears more stable today and seems to respond to the latest dialysis exchange. I suspect he has approximated his dry weight with improvement in cardiopulmonary status. I have no additional recommendations currently. The patient has received close to a full 2 weeks of IV caspofungin for yeast growing from his pleural fluid. Dr. Philippe thinks that the erythema and swelling is worse and the patient may have reflex sympathetic dystrophy. He has recommended restarting IV daptomycin and that has been restarted. We will follow and watch expectantly. The intensivists have been alerted to patient's cardiopulmonary status in case he were to decompensate with additional FIO2 requirements.
[2017-08-09] MEDS ORDERED: INSULIN HUMAN NPH SC SCH (16:45)
[2017-08-09] MEDS: MoRPHine SULFATE 2 MG/ML CARP IV PRN (17:41)
[2017-08-10] VITALS (26 sets, daily range): BP systolic 123–180; BP diastolic 37–166; PULSE 85–109; TEMP 36.5–37; O2SAT 88–99
[2017-08-10] MEDS: IPRATROPIUM BROMIDE NEB SOLN 0.02% 2.5 ML VIAL INH SCH ×4 (01:40→21:00)
[2017-08-10] MEDS: LEVALBUTEROL 0.63MG/3 ML NEB INH SCH ×4 (01:40→21:00)
[2017-08-10 04:52] LABS: HEMATOCRIT 27.5 % (42-52); MEAN CELL VOLUME 92.3 fL (80-100); MEAN CORPUSCULAR HEMOGLOBIN 30.2 pg (25-34); MEAN CORPUSCULAR HGB CONC 32.7 g/dl (32-36); RED CELL DISTRIBUTION WIDTH CV 18.6 % (11.5-14.5); RED CELL DISTRIBUTION WIDTH SD 61.4 fL (36.4-46.3); WHITE BLOOD COUNT 14.85 K/uL (4.8-10.8)
[2017-08-10 05:15] LABS: CALCIUM 8.1 mg/dl (8.5-10.1); CREATININE 2.84 mg/dl (0.60-1.40); POTASSIUM 4.2 mmol/L (3.5-5.1)
[2017-08-10 05:36] LABS: MEAN PLATELET VOLUME 11.8 fL (7.4-10.4); PLATELET COUNT 97 K/uL (130-400)
[2017-08-10] MEDS: HEPARIN SOD 5000 UNIT/0.5 ML CARP SQ SCH ×3 (05:48→21:41)
--- NOTE | 2017-08-10 07:18 | DIAGNOSTIC IMAGING REPORT ---
CHEST ONE VIEW PORTABLE CLINICAL HISTORY: pulmonary edema vs infection dyspnea COMPARISON STUDY: 08/09/2017 FINDINGS: Stable to slightly progressive bilateral parenchymal infiltrative change. Central catheter remains this. Vena cava. Chronic elevation right hemidiaphragm. IMPRESSION: Stable to minimally progressive bilateral parenchymal infiltrative changes versus pulmonary edema. The above report was generated using voice recognition software. It may contain grammatical, syntax or spelling errors. Electronically signed by: Kirill Rainey M.D. 08/10/2017 7:17 AM Dictated Date/Time: 08/10/2017 7:12 AM
[2017-08-10] MEDS: CHECK FENTANYL PATCH PLACEMENT SCH ×4 (08:00→23:40)
[2017-08-10] MEDS: NEPHROCAPS PO SCH (08:27)
[2017-08-10] MEDS: CALCIUM CARBONATE 500 MG CHEWABLE PO SCH ×3 (08:27→21:37)
[2017-08-10] MEDS: AMLODIPINE BESYLATE 5 MG TAB PO SCH (08:28)
[2017-08-10] MEDS: FUROSEMIDE 40 MG TAB PO SCH (08:28)
[2017-08-10] MEDS: METOPROLOL TARTRATE 100 MG TAB PO SCH ×2 (08:28→21:36)
[2017-08-10] MEDS: METHADONE HCL 10 MG TAB PO SCH ×2 (08:29→21:36)
[2017-08-10] MEDS: INSULIN ASPART 100 UNITS/ML 3 ML PEN SC SCH ×4 (08:38→21:40)
[2017-08-10] MEDS: INSULIN HUMAN NPH SC SCH (08:39)
[2017-08-10] MEDS: POLYETHYLENE (MIRALAX) 17 GM PACK PO SCH (08:39)
--- NOTE | 2017-08-10 09:17 | Nephrology Progress Note ---
Nephrology Progress Note Date of Service Aug 10, 2017. Chief Complaint Provide inpatient HD and assist w/ medical management of this patient w/ ESRD Subjective Mr. Christy was seen & examined in his hospital room this morning. He was transfused 1 U PRBC and dialyzed for 4 hours w/ 3400 cc UF. HD was complicated by relative hypotension. SBP 90 - 110 mm HG during treatment. Patient still requires O2 at 40% FM. CXR this am shows mildly progressive pulmonary infiltrates. Mr. Christy has 2 - 3+ dependent edema. AVF has strong thrill and bruit. L arm remains swollen and uncomfortable. Review of Systems Constitutional: No fever Cardiovascular: No chest pain Respiratory: No dyspnea at rest Abdomen: No vomiting, No hematochezia, No melena Extremities: + leg edema Musculoskeletal: + swelling A complete review of systems was performed. Pertinent positives are noted above. All other systems are negative. Vital Signs Last 8 Hrs Date Time Temp Pulse Resp B/P (MAP) Pulse Ox O2 Delivery O2 Flow Rate FiO2 08/10/17 08:00 Oxymask 9.0 40 08/10/17 07:51 37.0 98 18 135/71 (92) 92 Oxymask 08/10/17 07:21 87 20 88 Mask 9.0 08/10/17 05:11 85 92 40 08/10/17 04:00 BiPAP 40 08/10/17 03:21 36.7 91 18 142/65 (90) 94 08/10/17 01:42 92 19 92 BiPAP/CPAP 40 08/10/17 01:42 92 92 40 Last Recorded Weight Weight (Kilograms): 84.400 Physical Exam General Appearance: + mild distress (still requires high flow O2) Head: atraumatic Eyes: PERRL, EOMI Neck: no adenopathy Respiratory/Chest: + crackles (at bases) Cardiovascular: regular rate, rhythm, no murmur Abdomen/GI: normal bowel sounds, non tender, soft Extremities/Musculoskelatal: + pertinent finding (2 - 3+ dependent edema) Neurologic/Psych: alert, oriented x 3 Family History Cervical cancer Diabetes mellitus Heart disease Hypertension Myocardial infarction Pancreatic cancer Prostate cancer Negative for CKD/ESRD Social History Smokeless Tobacco Use: No Alcohol Use: none Drug Use: none Marital Status: single Housing Status: lives alone Occupation: disabled Single, retired. Formerly worked for [employer]. Never a smoker. Laboratory Results Past 24 Hours 08/10/17 04:31 08/10/17 04:31 Test 08/09/17 11:22 08/09/17 16:39 08/09/17 21:23 08/09/17 23:57 Bedside Glucose 126 mg/dl (70-99) 138 mg/dl (70-99) 146 mg/dl (70-99) 140 mg/dl (70-99) Test 08/10/17 04:31 Red Blood Count 2.98 M/uL (4.7-6.1) Mean Corpuscular Volume 92.3 fL (80-100) Mean Corpuscular Hemoglobin 30.2 pg (25-34) Mean Corpuscular Hemoglobin Concent 32.7 g/dl (32-36) RDW Standard Deviation 61.4 fL (36.4-46.3) RDW Coefficient of Variation 18.6 % (11.5-14.5) Mean Platelet Volume 11.8 fL (7.4-10.4) Nucleated RBC Absolute Count (auto) 0.30 K/uL (0-0) Nucleated Red Blood Cells % 2.1 % Platelet Estimate DECREASED Anion Gap 6.0 mmol/L (3-11) Est Creatinine Clear Calc Drug Dose 27.5 ml/min Estimated GFR () 26.2 Estimated GFR (Non- 22.6 BUN/Creatinine Ratio 18.0 (10-20) Calcium Level 8.1 mg/dl (8.5-10.1) Iron Level 23 mcg/dl (35-175) Total Iron Binding Capacity 108 mcg/dl (250-450) Transferrin 99 mg/dl (200-360) Transferrin % Saturation 17 % (20-50) Ferritin 1009.1 ng/ml (8.0-388.0) Allergies Coded Allergies: Iodinated Diagnostic Agents (Verified Allergy, Unknown, oil based, severe headaches, 06/20/17) EVENT OCCURED IN 1971, PT STATES HE HAS HAD 3 DIFFERENT WATER BASED IVP DYES WITH NO ISSUE Medications Current Inpatient Medications Medications (Trade) Dose Ordered Sig/Edward Route Start Time Stop Time Status Last Admin Dose Admin Prochlorperazine Edisylate 5 mg/ Syringe 5 ml @ 5 mls/min Q4H PRN IV 07/11/17 14:00 08/10/17 13:59 Lactulose (Chronulac Syrup) 30 gm Q4H PRN PO 07/11/17 16:45 08/10/17 16:44 Miscellaneous (Fentanyl Patch Remove & Waste) 1 ea Q3D@0859 N/A 07/22/17 08:59 08/21/17 08:58 08/09/17 08:01 1 EA Hydralazine HCl (HydrALAZINE INJ) 5 mg Q4 PRN IV. 07/21/17 17:15 08/20/17 17:14 Future Hold 07/25/17 23:45 5 MG Hydralazine HCl (HydrALAZINE INJ) 5 mg TID IV. 07/21/17 21:00 08/20/17 20:59 Future Hold 07/30/17 08:33 5 MG Miscellaneous Information (Consult Glycemic Management Pharmacy) 1 ea UD PRN N/A 07/23/17 13:14 08/22/17 13:13 Insulin Aspart (novoLOG ASPART) SLIDING SCALE G... ACHS SC 07/27/17 11:30 08/26/17 11:29 08/10/17 08:38 4 UNITS Ipratropium Gile (Atrovent 0.02% 0.5MG/2.5ML Neb) 0.5 mg Q6R INH 07/29/17 09:00 08/28/17 08:59 08/10/17 07:20 0.5 MG Levalbuterol (Xopenex 0.63 Mg/ 3 Ml Neb) 0.63 mg Q6R INH 07/29/17 09:00 08/28/17 08:59 08/10/17 07:21 0.63 MG Metoprolol Tartrate (Lopressor Tab) 100 mg BID PO 07/29/17 21:00 08/28/17 20:59 08/10/17 08:28 100 MG Amlodipine Besylate (Norvasc Tab) 10 mg QAM PO 07/30/17 09:00 08/29/17 08:59 08/10/17 08:28 10 MG Diphenhydramine HCl (Benadryl Inj) 50 mg 4XDQ4H PRN IV 07/30/17 13:30 08/29/17 13:29 Heparin Sodium (Porcine) (Heparin Sq 5000 Unit/0.5ml) 5,000 unit Q8 SQ 07/30/17 22:00 08/29/17 21:59 08/10/17 05:48 5,000 UNIT Prednisone (PredniSONE TAB) 20 mg BIDM PO 07/31/17 07:30 08/30/17 07:29 08/10/17 08:29 20 MG Furosemide (Lasix Tab) 40 mg QAM PO 08/01/17 09:00 08/31/17 08:59 08/10/17 08:28 40 MG Calcium Carbonate (Tums Chew Tab) 500 mg TID PO 08/02/17 09:00 09/01/17 08:59 08/10/17 08:27 500 MG Enteral Nutritional Formula (Boost Glucose Control) 1 can BID@1000,2100 PO 08/01/17 21:00 08/31/17 20:59 08/09/17 20:49 1 CAN Vitamin B Complex/ Vit C/Folic Acid (Nephrocaps) 1 cap QAM PO 08/07/17 09:00 09/06/17 08:59 08/10/17 08:27 1 CAP Daptomycin 350 mg/ Syringe 7 ml @ 3.5 mls/min Q48H IV 08/07/17 13:15 08/17/17 13:14 08/09/17 15:13 3.5 MLS/MIN Fentanyl (Duragesic Patch) 25 mcg Q72H TD 08/07/17 18:00 08/21/17 17:59 08/09/17 08:12 25 MCG Miscellaneous (Fentanyl Patch Remove & Waste) 1 ea Q72H N/A 08/10/17 17:59 09/09/17 17:58 Miscellaneous Information (Check Fentanyl Patch Placement) 1 ea QS N/A 08/08/17 00:00 09/07/17 00:00 08/10/17 00:00 1 EA Morphine Sulfate (MoRPHine SULFATE INJ) 2 mg Q3H PRN IV 08/07/17 22:15 08/21/17 22:14 08/09/17 17:41 2 MG Polyethylene (Miralax Powder Packet) 17 gm DAILY PRN PO 08/09/17 07:00 09/08/17 06:59 Methadone HCl (Dolophine Tab) 20 mg BID PO 08/08/17 23:00 08/22/17 22:59 08/10/17 08:29 20 MG Insulin Human NPH (novoLIN-N NPH) 14 units QDB SC 08/09/17 07:30 09/08/17 07:29 08/10/17 08:39 14 UNITS Insulin Human NPH (novoLIN-N NPH) 10 units QDD SC 08/09/17 16:45 09/08/17 16:44 08/09/17 17:34 10 UNITS Ergocalciferol (Vitamin D Cap) 50,000 interunit We@0900 PO 08/09/17 10:30 09/08/17 10:29 08/09/17 14:07 50,000 INTERUNIT Polyethylene (Miralax Powder Packet) 17 gm DAILY PO 08/09/17 13:00 09/08/17 12:59 08/10/17 08:39 17 GM Heparin Sodium (Porcine) (Heparin 100 Unit/ml 5ml Flush) 5 ml PRN PRN IV 08/09/17 13:00 09/08/17 12:59 Impression (1) Cellulitis of left hand (2) ESRD (end stage renal disease) on dialysis (3) Renal cell carcinoma (4) Anemia (5) Diabetes type 2, controlled Mr. Christy had metastatic RCCA. He underwent left nephrectomy 2015. He did not tolerate Sutent due to high grade proteinuria. Opdivo caused arthralgia, colitis and possible pneumonitis. He was most recently treated w/ Cabometyx. 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 Colonic reanastamosis was performed at the time of surgery. The patient has a complex medical history including persistent soft tissue infection of the left hand, C. Difficile colitis, metastatic RCCA, interstitial lung disease requiring steroid therapy, dc glabrata infection of pleural and peritoneal fluid Mr. Christy's dialysis has been complicated by prolonged bleeding from the AVF following treatment. 07/23 doppler study revealed a high grade venous outflow stenosis. He required fistulagram and coil embolization 07/25/16. Recommendations END STAGE RENAL DISEASE: -- Will provide HD today for continued UF. Will provide 25 g IV albumin (serum albumin 1.2) and attempt 2 - 3 L UF -- L arm is swollen. Spoke w/ Vascular Surgery: No central venous stenosis on fistulagram 07/25/17 -- CXR film this am reviewed: Persistent pulmonary infiltrates slightly progressive compared to previous studies ANEMIA: -- Patient was transfused 1 unit PRBC 08/06/17 & 08/09/17 -- Low iron saturation but high ferritin. Hold IV iron for now HYPERTENSION: -- BP is acceptable -- Continue Amlodipine CKD-BMD: -- Ionized calcium is within normal limits -- Vitamin D was low. Will resume Ergocalciferol therapy OTHER: -- Recommend physical therapy evaluation for strengthening exercises
--- NOTE | 2017-08-10 09:57 | Palliative Care Progress Note ---
Palliative Care Progress Note Date of Service Aug 10, 2017. Subjective Pt evaluation today including: conversation w/ patient, physical exam, chart review, review of inpatient medication list Pain: Well controlled PO Intake: fair Voiding: no voiding problems Pt more alert and animated this am, bed in chair position. Pt states RLQ and L sided pain better - last prn morphine was yesterday at 1741, it was also his only prn morphine yesterday. Pt for partial dialysis today and full dialysis tomorrow. Discussed LTAC for further care - needs increased PT and time for lungs to recover recovering very slowly still on O2 at 9 L via face mask with prn BiPAP Review of Systems Constitutional: + weakness, No fever, No chills Eyes: No worsening of vision ENT: No hearing loss Respiratory: + shortness of breath, + dyspnea on exertion Cardiac: No chest pain Abdomen: + pain (improving) Musculoskeletal: + problem reported (weakness) Male : No dysuria Neurologic: + weakness Psychiatric: No depression symptoms, No anxiety Endo: + fatigue Skin: + problem reported (redness and swelling of L hand improving) Objective Vital Signs Date Time Temp Pulse Resp B/P (MAP) Pulse Ox O2 Delivery O2 Flow Rate FiO2 08/10/17 08:00 Oxymask 9.0 40 08/10/17 07:51 37.0 98 18 135/71 (92) 92 Oxymask 08/10/17 07:21 87 20 88 Mask 9.0 08/10/17 05:11 85 92 40 08/10/17 04:00 BiPAP 40 08/10/17 03:21 36.7 91 18 142/65 (90) 94 08/10/17 01:42 92 19 92 BiPAP/CPAP 40 08/10/17 01:42 92 92 40 08/10/17 00:14 37.0 98 18 146/69 (94) 94 08/10/17 00:00 97 Mask 13.0 50 08/09/17 22:39 100 90 40 08/09/17 20:00 97 Mask 13.0 50 08/09/17 20:00 36.6 96 20 156/66 (96) 94 Mask 10.0 96 08/09/17 19:23 93 20 97 Mask 13.0 08/09/17 16:06 36.5 89 20 143/69 (93) 98 Oxymask 13.0 08/09/17 16:00 Oxymask 08/09/17 13:32 36.9 91 167/62 (97) 08/09/17 13:15 94 123/60 08/09/17 13:00 100 91/54 08/09/17 12:45 95 111/62 08/09/17 12:30 95 130/60 08/09/17 12:28 39.9 93 16 122/63 91 13.0 08/09/17 12:20 36.9 95 16 125/68 91 13.0 08/09/17 12:15 93 126/62 08/09/17 12:04 36.9 98 18 110/54 85 13.0 08/09/17 12:00 98 110/54 08/09/17 12:00 Oxymask 08/09/17 11:59 37.0 86 18 119/60 (79) 98 Mask 08/09/17 11:45 103 106/59 08/09/17 11:30 97 120/61 08/09/17 11:15 102 82/43 08/09/17 11:00 97 99/55 08/09/17 10:45 99 89/55 08/09/17 10:30 98 98/57 08/09/17 10:15 95 119/62 08/09/17 10:00 92 129/67 08/09/17 09:45 90 142/73 Physical Exam General Appearance: no apparent distress ENT: hearing grossly normal Neck: supple Respiratory/Chest: + pertinent finding (decreased at bases, no rhonchi appreciated on R) Cardiovascular: regular rate, rhythm Abdomen: + pertinent finding (decreased tendernass on palpation of RLQ and L side) Extremities: + pedal edema Neurologic/Psychiatric: alert, + pertinent finding (spirits - good) Skin: warm/dry Laboratory Results Last 24 Hours Test 08/09/17 11:22 08/09/17 16:39 08/09/17 21:23 08/09/17 23:57 Bedside Glucose 126 mg/dl 138 mg/dl 146 mg/dl 140 mg/dl Test 08/10/17 04:31 White Blood Count 14.85 K/uL Red Blood Count 2.98 M/uL Hemoglobin 9.0 g/dL Hematocrit 27.5 % Mean Corpuscular Volume 92.3 fL Mean Corpuscular Hemoglobin 30.2 pg Mean Corpuscular Hemoglobin Concent 32.7 g/dl RDW Standard Deviation 61.4 fL RDW Coefficient of Variation 18.6 % Platelet Count 97 K/uL Mean Platelet Volume 11.8 fL Nucleated RBC Absolute Count (auto) 0.30 K/uL Nucleated Red Blood Cells % 2.1 % Platelet Estimate DECREASED Sodium Level 136 mmol/L Potassium Level 4.2 mmol/L Chloride Level 101 mmol/L Carbon Dioxide Level 29 mmol/L Anion Gap 6.0 mmol/L Blood Urea Nitrogen 51 mg/dl Creatinine 2.84 mg/dl Est Creatinine Clear Calc Drug Dose 27.5 ml/min Estimated GFR () 26.2 Estimated GFR (Non- 22.6 BUN/Creatinine Ratio 18.0 Random Glucose 83 mg/dl Calcium Level 8.1 mg/dl Iron Level 23 mcg/dl Total Iron Binding Capacity 108 mcg/dl Transferrin 99 mg/dl Transferrin % Saturation 17 % Ferritin 1009.1 ng/ml Hepatitis B Surface Antigen NEG Assessment and Plan (1) 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 Will need to be sure LTAC can contact me for any questions regarding methadone dosing Cell phone [phone] (2) Cellulitis of left hand Status: Acute Assessment & Plan: Improving - still suspect RDS - can be addressed when he is d/c from LTAC (3) ESRD (end stage renal disease) on dialysis Status: Acute Assessment & Plan: Tolerating dialysis (4) Hypoxemia requiring supplemental oxygen Status: Acute Assessment & Plan: Slowly improving pt needs to be OOB to chair more frequently encouraged incentive spirometer use (5) High risk medication use Status: Acute Assessment & Plan: Please be sure to include info to contact me on d/c instructions when pt is d/c to facility or with any med changes as metabolism of methadone may be effected Total time: 35 min with > 50% time spent at bedside with pt counseling regarding current POC Palliative Performance Scale: 30 % Continued [facility] stay due to: ambulation difficulties, multiple IV medications needed, other (still with high O2 requirement) Discharge planning: longterm facility Counseling and Coordination Total time 25 min with > 50 % of time spent counseling regarding treatment plan
[2017-08-10] MEDS ORDERED: ALBUMIN HUMAN 25% 12.5 GM/50 ML VIAL IV SCH (10:00)
[2017-08-10] MEDS: BOOST GLUCOSE CONTROL PO SCH ×2 (10:06→21:37)
--- NOTE | 2017-08-10 12:15 | Pharmacy Progress Note ---
Pharmacy Glycemic Short Note 2 Date of Service Aug 10, 2017. ASSESSMENT: * Pt receiving SQ basal bolus insulin regimen for hyperglycemia secondary to baseline DM,stress/infection, recent surgery, steroids * Steroids tapered to Prednisone 20mg PO BIDM since 07/31/18 * Patient's BSGs have been very labile and difficult to control secondary to dialysis, fluctuating PO intake, and prednisone 20mg PO BIDM. * Patient has been receiving ~45 units of insulin per day. * BSGs over the past 24 hrs: 173,126,138,146 * I had gone up slightly on his basal regimen yesterday due to severe hyperglycemia the day before * Today his fasting BSG is <100 mg/dL * It seems that on non-HD days he runs high, and on HD days he runs on the low side - with that being said; he has not had a consistent schedule while here. He received HD yesterday and will receive it again today. * His BSGs are also fluctuating when he refuses insulin * At this point, he received the increased dose of NPH this AM. I will back off on the evening dose or hold it depending on BSG trend. PLAN FOR INPATIENT GLYCEMIC CONTROL: Maintain BSGs in the 150-250mg/dl range. This is considered adequate control for patient based on prognosis. * Basal insulin * NPH 14 units SQ daily in AM with breakfast given + NPH 8 units with dinner? * NPH may need to be held intermittently or reduced based on HD schedule and BSG trend * Bolus insulin * NovoLog per scale ACHS + in between meal checks and possibly through the night depending on pt requests * Goal Range: Low 120 mg/dL - High 160 mg/dL * Correction Factor: 25 mg/dL/unit * Nutritional / Prandial insulin per carb ratio of 1 unit per 8 grams CHO consumed
--- NOTE | 2017-08-10 12:33 | Hospitalist Progress Note ---
Hospitalist Progress Note Date of Service Aug 10, 2017. (Ledy Bhakta ., PA-C) Subjective Pt evaluation today including: conversation w/ patient, physical exam, lab review, review of inpatient medication list Patient sitting upright in bed. In good spirits today. Looks well. Eating and drinking OK. Pain is well controlled. No BM in a couple days- uses MiraLAX at home- daily MiraLAX started. +flatus. No SOB today. Edema and redness to L hand improved. Discussed LTAC- patient is agreeable. Documented fever on 08/09 afternoon Patient states he has been using hot pad for R arm bruising/soreness and nurse took temp in R armpit while using the hot pad. Patient denies any fever, chills, sweats, lightheadedness, dizziness, vision changes, CP, palpitations, SOB, wheezing, cough, abdominal pain, nausea, vomiting, diarrhea, urinary symptoms, melena, numbness/tingling, weakness, muscle/joint pain, anxiety/depression, active bleeding, or new skin discoloration/changes. (Ledy Bhakta ., PA-C) Medications Current Inpatient Medications Medications (Trade) Dose Ordered Sig/Edward Route Start Time Stop Time Status Last Admin Dose Admin Prochlorperazine Edisylate 5 mg/ Syringe 5 ml @ 5 mls/min Q4H PRN IV 07/11/17 14:00 08/10/17 13:59 Lactulose (Chronulac Syrup) 30 gm Q4H PRN PO 07/11/17 16:45 08/10/17 16:44 Miscellaneous (Fentanyl Patch Remove & Waste) 1 ea Q3D@0859 N/A 07/22/17 08:59 08/21/17 08:58 08/09/17 08:01 1 EA Hydralazine HCl (HydrALAZINE INJ) 5 mg Q4 PRN IV. 07/21/17 17:15 08/20/17 17:14 Future Hold 07/25/17 23:45 5 MG Hydralazine HCl (HydrALAZINE INJ) 5 mg TID IV. 07/21/17 21:00 08/20/17 20:59 Future Hold 07/30/17 08:33 5 MG Miscellaneous Information (Consult Glycemic Management Pharmacy) 1 ea UD PRN N/A 07/23/17 13:14 08/22/17 13:13 Insulin Aspart (novoLOG ASPART) SLIDING SCALE G... ACHS SC 07/27/17 11:30 08/26/17 11:29 08/10/17 08:38 4 UNITS Ipratropium [place] (Atrovent 0.02% 0.5MG/2.5ML Neb) 0.5 mg Q6R INH 07/29/17 09:00 08/28/17 08:59 08/10/17 07:20 0.5 MG Levalbuterol (Xopenex 0.63 Mg/ 3 Ml Neb) 0.63 mg Q6R INH 07/29/17 09:00 08/28/17 08:59 08/10/17 07:21 0.63 MG Metoprolol Tartrate (Lopressor Tab) 100 mg BID PO 07/29/17 21:00 08/28/17 20:59 08/10/17 08:28 100 MG Amlodipine Besylate (Norvasc Tab) 10 mg QAM PO 07/30/17 09:00 08/29/17 08:59 08/10/17 08:28 10 MG Diphenhydramine HCl (Benadryl Inj) 50 mg 4XDQ4H PRN IV 07/30/17 13:30 08/29/17 13:29 Heparin Sodium (Porcine) (Heparin Sq 5000 Unit/0.5ml) 5,000 unit Q8 SQ 07/30/17 22:00 08/29/17 21:59 08/10/17 05:48 5,000 UNIT Prednisone (PredniSONE TAB) 20 mg BIDM PO 07/31/17 07:30 08/30/17 07:29 08/10/17 08:29 20 MG Furosemide (Lasix Tab) 40 mg QAM PO 08/01/17 09:00 08/31/17 08:59 08/10/17 08:28 40 MG Calcium Carbonate (Tums Chew Tab) 500 mg TID PO 08/02/17 09:00 09/01/17 08:59 08/10/17 08:27 500 MG Enteral Nutritional Formula (Boost Glucose Control) 1 can BID@1000,2100 PO 08/01/17 21:00 08/31/17 20:59 08/10/17 10:06 1 CAN Vitamin B Complex/ Vit C/Folic Acid (Nephrocaps) 1 cap QAM PO 08/07/17 09:00 09/06/17 08:59 08/10/17 08:27 1 CAP Daptomycin 350 mg/ Syringe 7 ml @ 3.5 mls/min Q48H IV 08/07/17 13:15 08/17/17 13:14 08/09/17 15:13 3.5 MLS/MIN Fentanyl (Duragesic Patch) 25 mcg Q72H TD 08/07/17 18:00 08/21/17 17:59 08/09/17 08:12 25 MCG Miscellaneous (Fentanyl Patch Remove & Waste) 1 ea Q72H N/A 08/10/17 17:59 09/09/17 17:58 Miscellaneous Information (Check Fentanyl Patch Placement) 1 ea QS N/A 08/08/17 00:00 09/07/17 00:00 08/10/17 08:00 1 EA Morphine Sulfate (MoRPHine SULFATE INJ) 2 mg Q3H PRN IV 08/07/17 22:15 08/21/17 22:14 08/09/17 17:41 2 MG Polyethylene (Miralax Powder Packet) 17 gm DAILY PRN PO 08/09/17 07:00 09/08/17 06:59 Methadone HCl (Dolophine Tab) 20 mg BID PO 08/08/17 23:00 08/22/17 22:59 08/10/17 08:29 20 MG Insulin Human NPH (novoLIN-N NPH) 14 units QDB SC 08/09/17 07:30 09/08/17 07:29 08/10/17 08:39 14 UNITS Ergocalciferol (Vitamin D Cap) 50,000 interunit We@0900 PO 08/09/17 10:30 09/08/17 10:29 08/09/17 14:07 50,000 INTERUNIT Polyethylene (Miralax Powder Packet) 17 gm DAILY PO 08/09/17 13:00 09/08/17 12:59 08/10/17 08:39 17 GM Heparin Sodium (Porcine) (Heparin 100 Unit/ml 5ml Flush) 5 ml PRN PRN IV 08/09/17 13:00 09/08/17 12:59 Heparin Sodium (Porcine) (No Heparin In Dialysis) 1 ea TODAY@1000 N/A 08/10/17 10:00 08/10/17 23:59 Albumin Human (Albumin 25%) 25 gm TODAY@1000 IV 08/10/17 10:00 08/10/17 23:59 08/10/17 12:13 25 GM Insulin Human NPH (novoLIN-N NPH) 8 units QDD SC 08/10/17 16:45 09/09/17 16:44 Future hold (Ledy Bhakta PA-C) Objective Vital Signs Date Time Temp Pulse Resp B/P (MAP) Pulse Ox O2 Delivery O2 Flow Rate FiO2 08/10/17 12:00 Oxymask 9.0 40 08/10/17 10:26 36.7 96 22 161/74 (103) 90 Diffusion Mask 9.0 08/10/17 08:00 Oxymask 9.0 40 08/10/17 07:51 37.0 98 18 135/71 (92) 92 Oxymask 08/10/17 07:21 87 20 88 Mask 9.0 08/10/17 05:11 85 92 40 08/10/17 04:00 BiPAP 40 08/10/17 03:21 36.7 91 18 142/65 (90) 94 08/10/17 01:42 92 19 92 BiPAP/CPAP 40 08/10/17 01:42 92 92 40 08/10/17 00:14 37.0 98 18 146/69 (94) 94 08/10/17 00:00 97 Mask 13.0 50 08/09/17 22:39 100 90 40 08/09/17 20:00 97 Mask 13.0 50 08/09/17 20:00 36.6 96 20 156/66 (96) 94 Mask 10.0 96 08/09/17 19:23 93 20 97 Mask 13.0 08/09/17 16:06 36.5 89 20 143/69 (93) 98 Oxymask 13.0 08/09/17 16:00 Oxymask 08/09/17 13:32 36.9 91 167/62 (97) 08/09/17 13:15 94 123/60 08/09/17 13:00 100 91/54 08/09/17 12:45 95 111/62 08/09/17 12:30 95 130/60 08/09/17 12:28 39.9 93 16 122/63 91 13.0 (Ledy Bhakta ., PA-C) Physical Exam General Appearance: no apparent distress, + pertinent finding (OxyMask) Eyes: normal inspection, PERRL ENT: hearing grossly normal Neck: supple Respiratory/Chest: lungs clear, no respiratory distress, no accessory muscle use Cardiovascular: regular rate, rhythm Abdomen: normal bowel sounds, non tender, soft, + pertinent finding (incision site bandage C/D/I ) Extremities: no calf tenderness, + swelling (+2 pitting edema of bilateral lower extremities ), + pertinent finding (erythema, warmth to dorsal L hand, + swelling, no obvious drainage or open wounds ) Neurologic/Psychiatric: alert, normal mood/affect, oriented x 3 Skin: normal color, warm/dry, no rash (Ledy Bhakta ., PA-C) Laboratory Results Last 24 Hours Test 08/09/17 16:39 08/09/17 21:23 08/09/17 23:57 08/10/17 04:31 Bedside Glucose 138 mg/dl 146 mg/dl 140 mg/dl White Blood Count 14.85 K/uL Red Blood Count 2.98 M/uL Hemoglobin 9.0 g/dL Hematocrit 27.5 % Mean Corpuscular Volume 92.3 fL Mean Corpuscular Hemoglobin 30.2 pg Mean Corpuscular Hemoglobin Concent 32.7 g/dl RDW Standard Deviation 61.4 fL RDW Coefficient of Variation 18.6 % Platelet Count 97 K/uL Mean Platelet Volume 11.8 fL Nucleated RBC Absolute Count (auto) 0.30 K/uL Nucleated Red Blood Cells % 2.1 % Platelet Estimate DECREASED Sodium Level 136 mmol/L Potassium Level 4.2 mmol/L Chloride Level 101 mmol/L Carbon Dioxide Level 29 mmol/L Anion Gap 6.0 mmol/L Blood Urea Nitrogen 51 mg/dl Creatinine 2.84 mg/dl Est Creatinine Clear Calc Drug Dose 27.5 ml/min Estimated GFR () 26.2 Estimated GFR (Non- 22.6 BUN/Creatinine Ratio 18.0 Random Glucose 83 mg/dl Calcium Level 8.1 mg/dl Iron Level 23 mcg/dl Total Iron Binding Capacity 108 mcg/dl Transferrin 99 mg/dl Transferrin % Saturation 17 % Ferritin 1009.1 ng/ml Hepatitis B Surface Antigen NEG Test 08/10/17 10:36 Bedside Glucose 95 mg/dl (Ledy Bhakta, SARITA) Assessment and Plan Mr. Christy is a 61 y/o M with PMH of ESRD on HD, RCC, DMII. Admitted for L hand cellulitis having failed outpatient management. Abdominal pain, found to have incidental rectus sheath hematoma, C.diff positive colitis and subsequent bowel perforation on 07/21, now s/p colectomy, anemia, and bilateral pneumonia on imaging. C. diff colitis, perforated jejunal bowel (suspected to result from chemo regimen) s/p colectomy, rectus sheath hematoma: - Monitoring on tele- no acute events - Surgical management as per surgery, POD #18- TPN completed on 07/29/17- currently on mechanical soft diet - Underlying severe protein malnutrition, albumin 1.3- boost BID - C.Diff + 07/12/17: Completed 9 days of PO Vancomycin on 07/21 - C. 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 on 07/23-- vascular surgery consulted- s/p AVR repair on 07/25/17 - Hypocalcemia w/ vitamin D level of 17.4: Ergocalciferol 50,000 q7d indefinitely + daily D3 2000 when patient resumes oral intake- recheck levels in 12 weeks - Calcitriol and CaCO3 Left hand cellulitis, ?reflex sympathetic dystrophy: - Initial MRI did not determine any osteomyelitis - ID consulted: -- Treated initially with Ertapenem/Daptomycin, then transitioned to Cefepime - treated 07/22- 07/30 -- Daptomycin started on 08/07 per ID recommendations- ID following Acute hypoxia respiratory failure, ?secondary to pulmonary edema vs cryptogenic organizing pneumonia/drug related pneumonitis: - Continue O2 supplementation to maintain SaO2 >92%, wean as tolerated - Started on heparin drip on 07/26 for presumed PE- CTA 07/30/17 negative for PE, thus heparin drip stopped - Large R pleural effusion s/p thoracentesis completed 07/30/17- pleural pathology w/ no malignancy, pleural cultures growing yeast- completed IV Caspofungin - IV Solu-Medrol- transitioned to Prednisone 20 mg BID on 07/31 for prolonged taper - DuoNebs QID and PRN - Pulmonary following- thinks poor respiratory status is secondary to inactivity - encouraged incentive spirometer, OOB in chair throughout day, working w/ PT - Full Time Staff Interpreter consulted on 08/08 for ?ARDS- does not think needs ICU at this time - following- CXR on 08/10 is STABLE DMII: Pharmacy consulted for glycemic management Acute anemia- transfused a total of 8 u PRBCs: - Nephrology following- Epogen with dialysis - H&H- hgb 9.0 on 08/10 - Continue to follow H&H and transfuse PRN for hgb <7 or symptomatic - Iron panel reviewed- nephrology holding on IV iron at this time HTN, HLD: - Furosemide 40 mg PO daily, Amlodipine 10 mg daily, Metoprolol 100 mg PO BID, Lisinopril 40 mg daily - Hydralazine 100 mg TID held- BPs well controlled at this time - Monitor I&Os and daily weights - Simvastatin 20 mg HS held due to NPO status- will resume once tolerating regular diet BPH: Tamsulosin 0.4 mg PO daily held due to NPO status- will resume once tolerating regular diet DVT Prophylaxis: Heparin SQ TID Code Status: LEVEL I, FULL Dispo: Planning for LTAC- hopeful discharge in the next few days- PT/OT and CM following (Ledy Bhakta, PA-C) Supervising Note Dr. Montana I performed a history and physical examination on the patient. I reviewed above note and agree with it. I discussed plan with APC and patient. During my face to face encounter with the patient, I answered all of the patient's questions. (Gil Montana M.D.)
--- NOTE | 2017-08-10 14:01 | PULMONARY PROGRESS NOTE ---
DATE: 08/10/2017 PROBLEM LIST: Includes: 1. Metastatic renal cell carcinoma. 2. End-stage renal disease. 3. Interstitial lung disease. 4. Fluid overload. SUBJECTIVE: The patient reports that he is actually feeling better today, apparently they are making plans for him to go to an LTAC to continue with rehabilitation and strengthening. The patient reports that he feels that his breathing is doing better today, did have episode of dialysis earlier today, and he is actually feeling well from this. He has no other concerns or problems. No significant cough at this time. No chest congestion or tightness. His oxygen requirements are down to 13 liters via OxyMask. He has been wearing the BiPAP at night and feels that this is helpful for him. No other concerns or problems. No GI symptoms. No nausea or vomiting. No indigestion or heartburn. No changes and swelling in his legs. He is continuing to exercise his legs when able. OBJECTIVE: GENERAL: The patient is a 61-year-old male sitting in bed, in no acute distress. He is alert and oriented x3. Mood is good. Affect is good. VITAL SIGNS: Temp 36.7, pulse 96, respirations 22, blood pressure is 161/74, pulse ox is 90% on 9 liters via OxyMask. HEENT: Normocephalic, atraumatic. Pupils are equal, round and reactive to light and accommodation. Extraocular movements are intact. [place] and moist gingival and buccal mucosae. NECK: Supple. There is no mass, no adenopathy, no bruit noted. CHEST: Diminished breath sounds, but overall fairly clear. I do not really appreciate any wheezes today. Question some rales at the left base. No rhonchi. CARDIOVASCULAR: Regular rate and rhythm. No murmurs, gallops or rubs noted. ABDOMEN: Bowel sounds are present. Abdomen soft, nontender. No guarding, rigidity or organomegaly. EXTREMITIES: The patient has 1+ pitting edema bilaterally. No tenderness. NEUROLOGIC: Cranial nerves II-XII grossly intact. No focal deficit. LABORATORY DATA: Shows a white count down to 14,000, H&H of 9.0 and 27.5, platelet count 97,000. Chest x-ray showed essentially stable bilateral infiltrative changes versus some pulmonary edema. IMPRESSION: The patient is a 61-year-old male with end-stage renal disease on hemodialysis as well as renal cell carcinoma which is metastatic with acute hypoxic respiratory failure. The patient has continued to show some improvement. He is down to 9 liters via OxyMask, from where he started which was up and around 13-15 liters. He looks better overall. His strength is improving. His color is better. At this point, we will continue to follow; however, I do not feel we need to make any other changes at this time. Encourage him continue using incentive spirometry. We will continue to follow this patient. TALIA
[2017-08-10] MEDS ORDERED: INSULIN HUMAN NPH SC SCH (16:45)
[2017-08-10] MEDS: FENTANYL 25 MCG/HR TDSY TD SCH (17:32)
[2017-08-10] MEDS: FENTANYL PATCH REMOVE & WASTE SCH (17:32)
[2017-08-10] MEDS: MoRPHine SULFATE 2 MG/ML CARP IV PRN (17:42)
[2017-08-10] MEDS ORDERED: INSULIN HUMAN NPH SC ONE (21:45)
[2017-08-11] VITALS (21 sets, daily range): BP systolic 133–180; BP diastolic 60–89; PULSE 88–108; TEMP 36.4–37.3; O2SAT 84–98
[2017-08-11] MEDS: IPRATROPIUM BROMIDE NEB SOLN 0.02% 2.5 ML VIAL INH SCH ×3 (02:10→19:49)
[2017-08-11] MEDS: LEVALBUTEROL 0.63MG/3 ML NEB INH SCH ×3 (02:10→19:50)
[2017-08-11 04:39] LABS: HEMATOCRIT 25.6 % (42-52); HEMOGLOBIN 8.4 g/dL (14.0-18.0); MEAN CELL VOLUME 92.8 fL (80-100); MEAN CORPUSCULAR HEMOGLOBIN 30.4 pg (25-34); MEAN CORPUSCULAR HGB CONC 32.8 g/dl (32-36); RED CELL DISTRIBUTION WIDTH CV 18.5 % (11.5-14.5); WHITE BLOOD COUNT 14.92 K/uL (4.8-10.8)
[2017-08-11 04:40] LABS: MEAN PLATELET VOLUME 10.8 fL (7.4-10.4); PLATELET COUNT 88 K/uL (130-400)
[2017-08-11 04:59] LABS: CALCIUM 8.5 mg/dl (8.5-10.1); CREATININE 2.75 mg/dl (0.60-1.40); POTASSIUM 4.6 mmol/L (3.5-5.1)
[2017-08-11] MEDS: HEPARIN SOD 5000 UNIT/0.5 ML CARP SQ SCH ×3 (06:25→21:26)
[2017-08-11] MEDS: CHECK FENTANYL PATCH PLACEMENT SCH ×2 (08:43→16:43)
[2017-08-11] MEDS: NEPHROCAPS PO SCH (08:44)
[2017-08-11] MEDS: CALCIUM CARBONATE 500 MG CHEWABLE PO SCH ×3 (08:45→21:18)
[2017-08-11] MEDS: POLYETHYLENE (MIRALAX) 17 GM PACK PO SCH (08:45)
[2017-08-11] MEDS: INSULIN ASPART 100 UNITS/ML 3 ML PEN SC SCH ×4 (08:52→21:26)
[2017-08-11] MEDS: INSULIN HUMAN NPH SC SCH (08:53)
[2017-08-11] MEDS: METHADONE HCL 10 MG TAB PO SCH ×2 (08:53→21:17)
--- NOTE | 2017-08-11 08:58 | Pharmacy Progress Note ---
Glycemic Control Progress Note Date of Service Aug 11, 2017. Scope Glycemic Pharmacist consulted for glycemic control to write orders per [facility] inpatient glycemic control protocol. Objective Accuchecks BSG (last 24hrs): Test 08/10/17 10:36 08/10/17 16:11 08/10/17 20:38 08/11/17 04:28 Bedside Glucose 95 mg/dl (70-99) 72 mg/dl (70-99) 179 mg/dl (70-99) Random Glucose 168 mg/dl (70-99) Test 08/11/17 06:47 Bedside Glucose 156 mg/dl (70-99) Recent Pertinent Medications The patient is currently receiving: * Basal insulin: Given on 08/10/17: NPH 14 units w/ breakfast and 4 units at HS * Correctional Insulin: Novolog Correction per scale ACHS Goal Range: Low 120 mg/dL - High 160 mg/dL Correction Factor: 25 mg/dL/unit * Prandial insulin: Per carb ratio of 1 unit per 8 grams CHO consumed Outpatient Anti-Diabetic Meds Lantus 14 units Q HS Humalog TID w/ meals, CR 1 unit per 10gm CHO + SSI Assessment & Plan ASSESSMENT: 08/11/17 * Fasting BSG close to goal this AM w/ 18 units of NPH in last 24 hours * BSGs have ranged 72-179 over last 24 hours - all BSGs but one under 100 yesterday - leading me to believe the AM NPH dose should be reduced * Patient appears to be sensitive to small changes in NPH * Of note, Dietary has ordered this patient Boost supplements containing 20gm CHO at 1000 + 2100; all BSGs pre-lunch will be artificially elevated as a result and should be interpreted as such - reacting to elevated BSGs pre-lunch can lead to over-correction and subsequent hypoglycemia. * CF and CR have performed well thus far * Prednisone 20mg PO BID continues - per provider's notes, a prolonged taper is planned. PLAN FOR INPATIENT GLYCEMIC CONTROL: * Changing NPH to 12 units SQ w/ breakfast + 8 units w/ dinner * Continuing correction factor of 25 mg/dl/unit * Continuing carb ratio of 1 unit per 8 grams CHO consumed * Continuing goal range of Low 120 mg/dL - High 160 mg/dL * Reevaluate insulin doses w/ each step down in steroid dose * Please note that the plan above was derived based on current level of insulin resistance and hospital stress. These recommendations are appropriate for inpatient admission only. Plan of care upon discharge will need to be reassessed to avoid potential outpatient hypo/hyperglycemia. Thank you.
[2017-08-11] MEDS: FUROSEMIDE 40 MG TAB PO SCH (09:00)
[2017-08-11] MEDS: METOPROLOL TARTRATE 100 MG TAB PO SCH ×2 (09:00→21:18)
[2017-08-11] MEDS: AMLODIPINE BESYLATE 5 MG TAB PO SCH (09:00)
--- NOTE | 2017-08-11 09:09 | Nephrology Progress Note ---
Nephrology Progress Note Date of Service Aug 11, 2017. Chief Complaint Provide inpatient HD and assist w/ medical management of this patient w/ ESRD Subjective Mr. Christy was seen & examined in the PCU this morning. He was dialyzed yesterday for 3L UF. AVF functioned well. There were no complications. Mr. Christy reports that he did not require BiPAP last night. He still requires high flow O2 and has significant dependent edema. Review of Systems Constitutional: No fever Cardiovascular: No chest pain Respiratory: No dyspnea at rest Abdomen: No vomiting Extremities: + leg edema A complete review of systems was performed. Pertinent positives are noted above. All other systems are negative. Vital Signs Last 8 Hrs Date Time Temp Pulse Resp B/P (MAP) Pulse Ox O2 Delivery O2 Flow Rate FiO2 08/11/17 08:06 36.8 102 20 161/76 (104) 88 Oxymask 11.0 08/11/17 06:57 93 18 87 Mask 9.0 08/11/17 04:00 Oxymask 9.0 08/11/17 03:08 37.0 103 24 133/60 (84) 94 Oxymask 9.0 08/11/17 02:10 102 20 91 Mask 9.0 Last Recorded Weight Weight (Kilograms): 79.700 Physical Exam General Appearance: no apparent distress Head: normocephalic, atraumatic Eyes: PERRL, EOMI Neck: no adenopathy Respiratory/Chest: + rales Cardiovascular: + tachycardia Abdomen/GI: normal bowel sounds, non tender, soft Extremities/Musculoskelatal: + pertinent finding (1 - 2+ dependent pitting edema) Neurologic/Psych: alert, oriented x 3 Family History Cervical cancer Diabetes mellitus Heart disease Hypertension Myocardial infarction Pancreatic cancer Prostate cancer Negative for CKD/ESRD Social History Smokeless Tobacco Use: No Alcohol Use: none Drug Use: none Marital Status: single Housing Status: lives alone Occupation: disabled Single, retired. Formerly worked for [employer] Never a smoker. Laboratory Results Past 24 Hours 08/11/17 04:28 08/11/17 04:28 Test 08/10/17 10:36 08/10/17 16:11 08/10/17 20:38 08/11/17 04:28 Bedside Glucose 95 mg/dl (70-99) 72 mg/dl (70-99) 179 mg/dl (70-99) Red Blood Count 2.76 M/uL (4.7-6.1) Mean Corpuscular Volume 92.8 fL (80-100) Mean Corpuscular Hemoglobin 30.4 pg (25-34) Mean Corpuscular Hemoglobin Concent 32.8 g/dl (32-36) RDW Standard Deviation 62.0 fL (36.4-46.3) RDW Coefficient of Variation 18.5 % (11.5-14.5) Mean Platelet Volume 10.8 fL (7.4-10.4) Nucleated RBC Absolute Count (auto) 0.30 K/uL (0-0) Nucleated Red Blood Cells % 2.0 % Platelet Estimate DECREASED Anion Gap 6.0 mmol/L (3-11) Est Creatinine Clear Calc Drug Dose 28.4 ml/min Estimated GFR () 27.2 Estimated GFR (Non- 23.5 BUN/Creatinine Ratio 16.8 (10-20) Calcium Level 8.5 mg/dl (8.5-10.1) Test 08/11/17 06:47 Bedside Glucose 156 mg/dl (70-99) Allergies Coded Allergies: Iodinated Diagnostic Agents (Verified Allergy, Unknown, oil based, severe headaches, 06/20/17) EVENT OCCURED IN 1971, PT STATES HE HAS HAD 3 DIFFERENT WATER BASED IVP DYES WITH NO ISSUE Medications Current Inpatient Medications Medications (Trade) Dose Ordered Sig/Edward Route Start Time Stop Time Status Last Admin Dose Admin Miscellaneous (Fentanyl Patch Remove & Waste) 1 ea Q3D@0859 N/A 07/22/17 08:59 08/21/17 08:58 08/09/17 08:01 1 EA Hydralazine HCl (HydrALAZINE INJ) 5 mg Q4 PRN IV. 07/21/17 17:15 08/20/17 17:14 Future Hold 07/25/17 23:45 5 MG Hydralazine HCl (HydrALAZINE INJ) 5 mg TID IV. 07/21/17 21:00 08/20/17 20:59 Future Hold 07/30/17 08:33 5 MG Miscellaneous Information (Consult Glycemic Management Pharmacy) 1 ea UD PRN N/A 07/23/17 13:14 08/22/17 13:13 Insulin Aspart (novoLOG ASPART) SLIDING SCALE G... ACHS SC 07/27/17 11:30 08/26/17 11:29 08/11/17 08:52 6 UNITS Ipratropium [place] (Atrovent 0.02% 0.5MG/2.5ML Neb) 0.5 mg Q6R INH 07/29/17 09:00 08/28/17 08:59 08/11/17 06:56 0.5 MG Levalbuterol (Xopenex 0.63 Mg/ 3 Ml Neb) 0.63 mg Q6R INH 07/29/17 09:00 08/28/17 08:59 08/11/17 06:56 0.63 MG Metoprolol Tartrate (Lopressor Tab) 100 mg BID PO 07/29/17 21:00 08/28/17 20:59 08/10/17 21:36 100 MG Amlodipine Besylate (Norvasc Tab) 10 mg QAM PO 07/30/17 09:00 08/29/17 08:59 08/10/17 08:28 10 MG Diphenhydramine HCl (Benadryl Inj) 50 mg 4XDQ4H PRN IV 07/30/17 13:30 08/29/17 13:29 Heparin Sodium (Porcine) (Heparin Sq 5000 Unit/0.5ml) 5,000 unit Q8 SQ 07/30/17 22:00 08/29/17 21:59 08/11/17 06:25 5,000 UNIT Prednisone (PredniSONE TAB) 20 mg BIDM PO 07/31/17 07:30 08/30/17 07:29 08/11/17 08:44 20 MG Furosemide (Lasix Tab) 40 mg QAM PO 08/01/17 09:00 08/31/17 08:59 08/10/17 08:28 40 MG Calcium Carbonate (Tums Chew Tab) 500 mg TID PO 08/02/17 09:00 09/01/17 08:59 08/11/17 08:45 500 MG Enteral Nutritional Formula (Boost Glucose Control) 1 can BID@1000,2100 PO 08/01/17 21:00 08/31/17 20:59 08/10/17 21:37 1 CAN Vitamin B Complex/ Vit C/Folic Acid (Nephrocaps) 1 cap QAM PO 08/07/17 09:00 09/06/17 08:59 08/11/17 08:44 1 CAP Daptomycin 350 mg/ Syringe 7 ml @ 3.5 mls/min Q48H IV 08/07/17 13:15 08/17/17 13:14 08/09/17 15:13 3.5 MLS/MIN Fentanyl (Duragesic Patch) 25 mcg Q72H TD 08/07/17 18:00 08/21/17 17:59 08/10/17 17:32 25 MCG Miscellaneous (Fentanyl Patch Remove & Waste) 1 ea Q72H N/A 08/10/17 17:59 09/09/17 17:58 08/10/17 17:32 1 EA Miscellaneous Information (Check Fentanyl Patch Placement) 1 ea QS N/A 08/08/17 00:00 09/07/17 00:00 08/11/17 08:43 1 EA Morphine Sulfate (MoRPHine SULFATE INJ) 2 mg Q3H PRN IV 08/07/17 22:15 08/21/17 22:14 08/10/17 17:42 2 MG Polyethylene (Miralax Powder Packet) 17 gm DAILY PRN PO 08/09/17 07:00 09/08/17 06:59 Methadone HCl (Dolophine Tab) 20 mg BID PO 08/08/17 23:00 08/22/17 22:59 08/11/17 08:53 20 MG Ergocalciferol (Vitamin D Cap) 50,000 interunit We@0900 PO 08/09/17 10:30 09/08/17 10:29 08/09/17 14:07 50,000 INTERUNIT Polyethylene (Miralax Powder Packet) 17 gm DAILY PO 08/09/17 13:00 09/08/17 12:59 08/11/17 08:45 17 GM Heparin Sodium (Porcine) (Heparin 100 Unit/ml 5ml Flush) 5 ml PRN PRN IV 08/09/17 13:00 09/08/17 12:59 Insulin Human NPH (novoLIN-N NPH) 8 units QDD SC 08/10/17 16:45 09/09/17 16:44 Future hold Insulin Human NPH (novoLIN-N NPH) 12 units QDB SC 08/11/17 07:30 09/10/17 07:29 08/11/17 08:53 12 UNITS Impression (1) Cellulitis of left hand (2) ESRD (end stage renal disease) on dialysis (3) Renal cell carcinoma (4) Anemia (5) Diabetes type 2, controlled Mr. Christy had metastatic RCCA. He underwent left nephrectomy 2015. He did not tolerate Sutent due to high grade proteinuria. Opdivo caused arthralgia, colitis and possible pneumonitis. He was most recently treated w/ Cabometyx. 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 Colonic reanastamosis was performed at the time of surgery. The patient has a complex medical history including persistent soft tissue infection of the left hand, C. Difficile colitis, metastatic RCCA, interstitial lung disease requiring steroid therapy, dc glabrata infection of pleural and peritoneal fluid Mr. Christy's dialysis has been complicated by prolonged bleeding from the AVF following treatment. 07/23 doppler study revealed a high grade venous outflow stenosis. He required fistulagram and coil embolization 07/25/16. Recommendations END STAGE RENAL DISEASE: -- Will provide HD today for continued UF. Will provide 25 g IV albumin (serum albumin 1.2) and attempt 3 L UF -- L arm remains swollen. Spoke w/ Vascular Surgery earlier this week: No central venous stenosis on fistulagram 07/25/17 -- 08/10 CXR film this am reviewed: Persistent pulmonary infiltrates slightly progressive compared to previous studies ANEMIA: -- Patient was transfused 1 unit PRBC 08/06/17 & 08/09/17 -- Low iron saturation but high ferritin. Hold IV iron for now HYPERTENSION: -- BP is acceptable -- Continue Amlodipine CKD-BMD: -- Ionized calcium is within normal limits -- Vitamin D was low. Will resume Ergocalciferol therapy OTHER: -- Recommend physical therapy evaluation for strengthening exercises
[2017-08-11] MEDS ORDERED: ALBUMIN HUMAN 25% 12.5 GM/50 ML VIAL IV ONE (09:15)
[2017-08-11] MEDS: BOOST GLUCOSE CONTROL PO SCH ×2 (10:25→21:15)
--- NOTE | 2017-08-11 11:17 | Palliative Care Progress Note ---
Palliative Care Progress Note Date of Service Aug 11, 2017. Subjective Pt evaluation today including: conversation w/ patient, physical exam, chart review, lab review, conversation w/ it consultant, review of inpatient medication list Pain: Well controlled PO Intake: fair Voiding: no voiding problems Pt did not require BiPAP overnight - sat alarm went off when mask slipped from face while asleep Review of Systems Constitutional: No fever, No chills Eyes: No worsening of vision ENT: No hearing loss Respiratory: + shortness of breath, + dyspnea on exertion Cardiac: No chest pain Abdomen: + pain (much improved per pt) Neurologic: + weakness Psychiatric: No depression symptoms, No anxiety Endo: + fatigue Skin: + problem reported (L hand continues to be swollen and red) Objective Vital Signs Date Time Temp Pulse Resp B/P (MAP) Pulse Ox O2 Delivery O2 Flow Rate FiO2 08/11/17 08:06 36.8 102 20 161/76 (104) 88 Oxymask 11.0 08/11/17 06:57 93 18 87 Mask 9.0 08/11/17 04:00 Oxymask 9.0 08/11/17 03:08 37.0 103 24 133/60 (84) 94 Oxymask 9.0 08/11/17 02:10 102 20 91 Mask 9.0 08/10/17 23:59 Oxymask 9.0 08/10/17 23:01 36.8 107 20 147/70 (95) 92 Oxymask 9.0 08/10/17 20:22 37.0 109 18 162/69 (100) 93 Mask 08/10/17 20:00 Oxymask 9.0 08/10/17 20:00 88 20 91 Mask 9.0 08/10/17 16:00 Oxymask 9.0 40 08/10/17 15:58 36.6 86 18 158/79 (105) 99 Mask 08/10/17 15:45 36.5 93 179/79 (112) 08/10/17 14:45 94 159/76 08/10/17 14:30 99 157/74 08/10/17 14:15 99 165/95 08/10/17 14:00 94 165/76 08/10/17 13:45 94 158/72 08/10/17 13:30 93 160/77 08/10/17 13:15 98 150/37 08/10/17 13:00 96 180/94 08/10/17 12:45 96 157/76 08/10/17 12:30 100 150/73 08/10/17 12:15 99 167/68 08/10/17 12:02 100 123/166 08/10/17 12:00 Oxymask 9.0 40 08/10/17 11:37 36.7 97 173/80 (111) Physical Exam General Appearance: no apparent distress, + pertinent finding (Pt very alert and conversational without SOB, in good spirits, wants to work at getting better and stronger) ENT: hearing grossly normal Neck: supple Respiratory/Chest: no respiratory distress (at rest or with conversation), + decreased breath sounds (bases) Cardiovascular: regular rate, rhythm Abdomen: soft, + tenderness (minimal wih palpation of RLQ and L side) Extremities: + pedal edema (improved post dialysis) Neurologic/Psychiatric: alert, normal mood/affect Skin: normal color Laboratory Results Last 24 Hours Test 08/10/17 16:11 08/10/17 20:38 08/11/17 04:28 08/11/17 06:47 Bedside Glucose 72 mg/dl 179 mg/dl 156 mg/dl White Blood Count 14.92 K/uL Red Blood Count 2.76 M/uL Hemoglobin 8.4 g/dL Hematocrit 25.6 % Mean Corpuscular Volume 92.8 fL Mean Corpuscular Hemoglobin 30.4 pg Mean Corpuscular Hemoglobin Concent 32.8 g/dl RDW Standard Deviation 62.0 fL RDW Coefficient of Variation 18.5 % Platelet Count 88 K/uL Mean Platelet Volume 10.8 fL Nucleated RBC Absolute Count (auto) 0.30 K/uL Nucleated Red Blood Cells % 2.0 % Platelet Estimate DECREASED Sodium Level 136 mmol/L Potassium Level 4.6 mmol/L Chloride Level 102 mmol/L Carbon Dioxide Level 28 mmol/L Anion Gap 6.0 mmol/L Blood Urea Nitrogen 46 mg/dl Creatinine 2.75 mg/dl Est Creatinine Clear Calc Drug Dose 28.4 ml/min Estimated GFR () 27.2 Estimated GFR (Non- 23.5 BUN/Creatinine Ratio 16.8 Random Glucose 168 mg/dl Calcium Level 8.5 mg/dl Assessment and Plan (1) Pain due to neoplasm Status: Chronic Assessment & Plan: Well controlled with methadone and Fentanyl patch. Would switch IV morphine to PO or PO oxy - he was on 10 mg prn at home pt able to take PO (2) Cellulitis of left hand Status: Acute Assessment & Plan: On Daptomycin (3) ESRD (end stage renal disease) on dialysis Status: Acute Assessment & Plan: Tolerating dialysis well (4) Hypoxemia requiring supplemental oxygen Status: Acute Assessment & Plan: Resp status slowly improving - still on O2 at 9 L oxymask - pt tolerates sats at 87-88% (5) High risk medication use Status: Acute Assessment & Plan: Will cont to monitor for any med changes and adjust methadone as needed Total time: 35 min with > 50% time spent at bedside with pt counseling regarding current POC Palliative Performance Scale: 30 % Continued [facility] stay due to: ambulation difficulties, multiple IV medications needed, other (still with high O2 requirement) Discharge planning: rehab hospital (Pt motivated to get better and to work on strengthening) Counseling and Coordination Total time 35 min with > 50 % of time spent counseling pt regarding goals and POC
--- NOTE | 2017-08-11 11:39 | Hospitalist Progress Note ---
Hospitalist Progress Note Date of Service Aug 11, 2017. (Ledy Bhakta ., PA-C) Subjective Pt evaluation today including: conversation w/ patient, physical exam, lab review, review of inpatient medication list Patient resting in bed. Breathing feels improved. Did not require BiPAP overnight. Eating and drinking OK. Pain is well controlled. Still no BM in a few days. +flatus. No abdominal discomfort. On daily MiraLAX. Dialysis scheduled for this AM. Patient denies any fever, chills, sweats, lightheadedness, dizziness, vision changes, CP, palpitations, edema, SOB, wheezing, cough, abdominal pain, nausea, vomiting, diarrhea, urinary symptoms, melena, numbness/tingling, weakness, muscle/joint pain, anxiety/depression, active bleeding, or new skin discoloration/changes. (Ledy Bhakta ., PA-C) Medications Current Inpatient Medications Medications (Trade) Dose Ordered Sig/Edward Route Start Time Stop Time Status Last Admin Dose Admin Miscellaneous (Fentanyl Patch Remove & Waste) 1 ea Q3D@0859 N/A 07/22/17 08:59 08/21/17 08:58 08/09/17 08:01 1 EA Hydralazine HCl (HydrALAZINE INJ) 5 mg Q4 PRN IV. 07/21/17 17:15 08/20/17 17:14 Future Hold 07/25/17 23:45 5 MG Hydralazine HCl (HydrALAZINE INJ) 5 mg TID IV. 07/21/17 21:00 08/20/17 20:59 Future Hold 07/30/17 08:33 5 MG Miscellaneous Information (Consult Glycemic Management Pharmacy) 1 ea UD PRN N/A 07/23/17 13:14 08/22/17 13:13 Insulin Aspart (novoLOG ASPART) SLIDING SCALE G... ACHS SC 07/27/17 11:30 08/26/17 11:29 08/11/17 08:52 6 UNITS Ipratropium [place] (Atrovent 0.02% 0.5MG/2.5ML Neb) 0.5 mg Q6R INH 07/29/17 09:00 08/28/17 08:59 08/11/17 06:56 0.5 MG Levalbuterol (Xopenex 0.63 Mg/ 3 Ml Neb) 0.63 mg Q6R INH 07/29/17 09:00 08/28/17 08:59 08/11/17 06:56 0.63 MG Metoprolol Tartrate (Lopressor Tab) 100 mg BID PO 07/29/17 21:00 08/28/17 20:59 08/10/17 21:36 100 MG Amlodipine Besylate (Norvasc Tab) 10 mg QAM PO 07/30/17 09:00 08/29/17 08:59 08/10/17 08:28 10 MG Diphenhydramine HCl (Benadryl Inj) 50 mg 4XDQ4H PRN IV 07/30/17 13:30 08/29/17 13:29 Heparin Sodium (Porcine) (Heparin Sq 5000 Unit/0.5ml) 5,000 unit Q8 SQ 07/30/17 22:00 08/29/17 21:59 08/11/17 06:25 5,000 UNIT Prednisone (PredniSONE TAB) 20 mg BIDM PO 07/31/17 07:30 08/30/17 07:29 08/11/17 08:44 20 MG Furosemide (Lasix Tab) 40 mg QAM PO 08/01/17 09:00 08/31/17 08:59 08/10/17 08:28 40 MG Calcium Carbonate (Tums Chew Tab) 500 mg TID PO 08/02/17 09:00 09/01/17 08:59 08/11/17 08:45 500 MG Enteral Nutritional Formula (Boost Glucose Control) 1 can BID@1000,2100 PO 08/01/17 21:00 08/31/17 20:59 08/11/17 10:25 1 CAN Vitamin B Complex/ Vit C/Folic Acid (Nephrocaps) 1 cap QAM PO 08/07/17 09:00 09/06/17 08:59 08/11/17 08:44 1 CAP Daptomycin 350 mg/ Syringe 7 ml @ 3.5 mls/min Q48H IV 08/07/17 13:15 08/17/17 13:14 08/09/17 15:13 3.5 MLS/MIN Fentanyl (Duragesic Patch) 25 mcg Q72H TD 08/07/17 18:00 1/29/18 17:59 08/10/17 17:32 25 MCG Miscellaneous (Fentanyl Patch Remove & Waste) 1 ea Q72H N/A 08/10/17 17:59 09/09/17 17:58 08/10/17 17:32 1 EA Miscellaneous Information (Check Fentanyl Patch Placement) 1 ea QS N/A 08/08/17 00:00 09/07/17 00:00 08/11/17 08:43 1 EA Polyethylene (Miralax Powder Packet) 17 gm DAILY PRN PO 08/09/17 07:00 09/08/17 06:59 Methadone HCl (Dolophine Tab) 20 mg BID PO 08/08/17 23:00 08/22/17 22:59 08/11/17 08:53 20 MG Ergocalciferol (Vitamin D Cap) 50,000 interunit We@0900 PO 08/09/17 10:30 09/08/17 10:29 08/09/17 14:07 50,000 INTERUNIT Polyethylene (Miralax Powder Packet) 17 gm DAILY PO 08/09/17 13:00 09/08/17 12:59 08/11/17 08:45 17 GM Heparin Sodium (Porcine) (Heparin 100 Unit/ml 5ml Flush) 5 ml PRN PRN IV 08/09/17 13:00 09/08/17 12:59 Insulin Human NPH (novoLIN-N NPH) 8 units QDD SC 08/10/17 16:45 09/09/17 16:44 Future hold Insulin Human NPH (novoLIN-N NPH) 12 units QDB SC 08/11/17 07:30 09/10/17 07:29 08/11/17 08:53 12 UNITS Heparin Sodium (Porcine) (No Heparin In Dialysis) 1 ea 0915 N/A 08/11/17 09:15 08/11/17 18:00 Oxycodone HCl (Oxycontin Tab) 10 mg TID PRN PO 08/11/17 11:30 08/25/17 11:29 UNV (Ledy Bhakta PA-C) Objective Vital Signs Date Time Temp Pulse Resp B/P (MAP) Pulse Ox O2 Delivery O2 Flow Rate FiO2 08/11/17 08:06 36.8 102 20 161/76 (104) 88 Oxymask 11.0 08/11/17 06:57 93 18 87 Mask 9.0 08/11/17 04:00 Oxymask 9.0 08/11/17 03:08 37.0 103 24 133/60 (84) 94 Oxymask 9.0 08/11/17 02:10 102 20 91 Mask 9.0 08/10/17 23:59 Oxymask 9.0 08/10/17 23:01 36.8 107 20 147/70 (95) 92 Oxymask 9.0 08/10/17 20:22 37.0 109 18 162/69 (100) 93 Mask 08/10/17 20:00 Oxymask 9.0 08/10/17 20:00 88 20 91 Mask 9.0 08/10/17 16:00 Oxymask 9.0 40 08/10/17 15:58 36.6 86 18 158/79 (105) 99 Mask 08/10/17 15:45 36.5 93 179/79 (112) 08/10/17 14:45 94 159/76 08/10/17 14:30 99 157/74 08/10/17 14:15 99 165/95 08/10/17 14:00 94 165/76 08/10/17 13:45 94 158/72 08/10/17 13:30 93 160/77 08/10/17 13:15 98 150/37 08/10/17 13:00 96 180/94 08/10/17 12:45 96 157/76 08/10/17 12:30 100 150/73 08/10/17 12:15 99 167/68 08/10/17 12:02 100 123/166 08/10/17 12:00 Oxymask 9.0 40 08/10/17 11:37 36.7 97 173/80 (111) (Ledy Bhakta, PA-C) Physical Exam General Appearance: no apparent distress, + pertinent finding (OxyMask on ) Eyes: normal inspection, PERRL ENT: hearing grossly normal Neck: supple Respiratory/Chest: no respiratory distress, no accessory muscle use, + decreased breath sounds (throughout ) Cardiovascular: regular rate, rhythm Abdomen: normal bowel sounds, non tender, soft, + pertinent finding (Incision site bandage C/D/I ) Extremities: + swelling (+3 pitting edema of bilateral lower extremities), + pertinent finding (+L hand swelling and erythema, no obvious drainage or open wounds ) Neurologic/Psychiatric: alert, normal mood/affect (in good spirits today ), oriented x 3 Skin: normal color, warm/dry, no rash (Ledy Bhakta ., PA-C) Laboratory Results Last 24 Hours Test 08/10/17 16:11 08/10/17 20:38 08/11/17 04:28 08/11/17 06:47 Bedside Glucose 72 mg/dl 179 mg/dl 156 mg/dl White Blood Count 14.92 K/uL Red Blood Count 2.76 M/uL Hemoglobin 8.4 g/dL Hematocrit 25.6 % Mean Corpuscular Volume 92.8 fL Mean Corpuscular Hemoglobin 30.4 pg Mean Corpuscular Hemoglobin Concent 32.8 g/dl RDW Standard Deviation 62.0 fL RDW Coefficient of Variation 18.5 % Platelet Count 88 K/uL Mean Platelet Volume 10.8 fL Nucleated RBC Absolute Count (auto) 0.30 K/uL Nucleated Red Blood Cells % 2.0 % Platelet Estimate DECREASED Sodium Level 136 mmol/L Potassium Level 4.6 mmol/L Chloride Level 102 mmol/L Carbon Dioxide Level 28 mmol/L Anion Gap 6.0 mmol/L Blood Urea Nitrogen 46 mg/dl Creatinine 2.75 mg/dl Est Creatinine Clear Calc Drug Dose 28.4 ml/min Estimated GFR () 27.2 Estimated GFR (Non- 23.5 BUN/Creatinine Ratio 16.8 Random Glucose 168 mg/dl Calcium Level 8.5 mg/dl (Ledy Bhakta ., PA-C) Assessment and Plan Mr. Christy is a 61 y/o M with PMH of ESRD on HD, RCC, DMII. Admitted for L hand cellulitis having failed outpatient management. Abdominal pain, found to have incidental rectus sheath hematoma, C.diff positive colitis and subsequent bowel perforation on 07/21, now s/p colectomy, anemia, and bilateral pneumonia on imaging. C. diff colitis, perforated jejunal bowel (suspected to result from chemo regimen) s/p colectomy, rectus sheath hematoma: - Monitoring on tele- no acute events - Surgical management as per surgery, POD #18- TPN completed on 07/29/17- currently on mechanical soft diet - Underlying severe protein malnutrition, albumin 1.3- boost BID - C.Diff + 07/12/17: Completed 9 days of PO Vancomycin on 07/21 - C. glabratum growth- Completed Caspofungin x10 days on 08/06 - Pain controlled w/ Methadone, Morphine IV PRN switched to Oxycodone TID PRN Metastatic RCC s/p L nephrectomy, chronic pain: - Oncology consulted- holding treatment at this time due to acute issues- f/u outpatient - Palliative care following- appreciate recommendations for pain control- Methadone, Fentanyl, and Oxycodone PRN ESRD HD, secondary to RCC/ s/p left nephrectomy- HD on MWF, ESRD bone mineral disease: - Nephrology following - 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 on 07/23-- vascular surgery consulted- s/p AVR repair on 07/25/17 - Hypocalcemia w/ vitamin D level of 17.4: Ergocalciferol 50,000 q7d indefinitely + daily D3 1999 when patient resumes oral intake- recheck levels in 12 weeks - Calcitriol and CaCO3 Left hand cellulitis, ?reflex sympathetic dystrophy: - Initial MRI did not determine any osteomyelitis - ID consulted: -- Treated initially with Ertapenem/Daptomycin, then transitioned to Cefepime - treated 07/22- 07/30 -- Daptomycin started on 08/07 per ID recommendations- ID following Acute hypoxia respiratory failure, ?secondary to pulmonary edema vs cryptogenic organizing pneumonia/drug related pneumonitis: - Continue O2 supplementation to maintain SaO2 >92%, wean as tolerated - Started on heparin drip on 07/26 for presumed PE- CTA 07/30/17 negative for PE, thus heparin drip stopped - Large R pleural effusion s/p thoracentesis completed 07/30/17- pleural pathology w/ no malignancy, pleural cultures growing yeast- completed IV Caspofungin - IV Solu-Medrol- transitioned to Prednisone 20 mg BID on 07/31 for prolonged taper - DuoNebs QID and PRN - Pulmonary following- thinks poor respiratory status is secondary to inactivity - encouraged incentive spirometer, OOB in chair throughout day, working w/ PT - Single Ending Machine Operator consulted on 08/08 for ?ARDS- does not think needs ICU at this time - following- CXR on 08/10 is STABLE DMII: Pharmacy consulted for glycemic management Acute anemia- transfused a total of 8 u PRBCs: - Nephrology following- Epogen with dialysis - H&H- hgb 8.4 on 08/11 - Continue to follow H&H and transfuse PRN for hgb < 7 or symptomatic - Iron panel reviewed- nephrology holding on IV iron at this time HTN, HLD: - Furosemide 40 mg PO daily, Amlodipine 10 mg daily, Metoprolol 100 mg PO BID, Lisinopril 40 mg daily - Hydralazine 100 mg TID held- BPs well controlled at this time - Monitor I&Os and daily weights - Simvastatin 20 mg HS held due to NPO status- resume today BPH: Tamsulosin 0.4 mg PO daily held due to NPO status- resume today DVT Prophylaxis: Heparin SQ TID Code Status: LEVEL I, FULL Dispo: Discharge pending placement- PT/OT and CM following (Ledy Bhakta, PA-C) Supervising Note Dr. Montana I performed a history and physical examination on the patient. I reviewed above note and agree with it. I discussed plan with APC and patient. During my face to face encounter with the patient, I answered all of the patient's questions. (Gil Montana M.D.)
[2017-08-11] MEDS ORDERED: ALBUMIN HUMAN 25% 12.5 GM/50 ML VIAL IV SCH (14:45)
[2017-08-11] MEDS: OXYCODONE HCL 10 MG TABCR (OXYCONTIN) PO PRN (21:08)
[2017-08-11] MEDS: TAMSULOSIN HCL 0.4 MG CAP PO SCH (21:17)
[2017-08-11] MEDS: SIMVASTATIN 20 MG TAB PO SCH (21:19)
[2017-08-11] MEDS: DAPTOmycin IV 350 MG in SYRINGE 0 ML IV SCH (21:26)
[2017-08-12] VITALS (11 sets, daily range): BP systolic 148–165; BP diastolic 70–83; PULSE 92–113; TEMP 36.6–37.2; O2SAT 86–94
[2017-08-12] MEDS: LEVALBUTEROL 0.63MG/3 ML NEB INH SCH ×3 (01:26→19:37)
[2017-08-12] MEDS: IPRATROPIUM BROMIDE NEB SOLN 0.02% 2.5 ML VIAL INH SCH ×3 (01:26→19:37)
[2017-08-12] MEDS: HEPARIN SOD 5000 UNIT/0.5 ML CARP SQ SCH ×3 (05:40→22:10)
[2017-08-12 05:48] LABS: HEMATOCRIT 26.5 % (42-52); HEMOGLOBIN 8.4 g/dL (14.0-18.0); MEAN CORPUSCULAR HEMOGLOBIN 29.8 pg (25-34); MEAN CORPUSCULAR HGB CONC 31.7 g/dl (32-36); MEAN PLATELET VOLUME 11.8 fL (7.4-10.4); NUCLEATED RED BLOOD CELL ABS 0.29 K/uL (0-0); PLATELET COUNT 96 K/uL (130-400); RED CELL DISTRIBUTION WIDTH CV 18.3 % (11.5-14.5); RED CELL DISTRIBUTION WIDTH SD 62.1 fL (36.4-46.3)
[2017-08-12 06:13] LABS: CALCIUM 9.1 mg/dl (8.5-10.1); CREATININE 2.25 mg/dl (0.60-1.40); POTASSIUM 4.5 mmol/L (3.5-5.1)
--- NOTE | 2017-08-12 07:40 | DIAGNOSTIC IMAGING REPORT ---
SINGLE VIEW CHEST CLINICAL HISTORY: Airspace consolidation. FINDINGS: An AP, portable, upright chest radiograph is compared to study dated 08/10/2017. Correlation is made with chest CT dated 08/09/2017. The examination is degraded by portable technique and apical lordotic positioning. A right internal jugular central venous infusion port is unchanged in position. The cardiomediastinal silhouette is unremarkable. There are diffuse bilateral airspace opacities, left greater than right. Small pleural effusions are identified. No pneumothorax is seen. The skeletal structures are osteopenic. The bony thorax is grossly intact. IMPRESSION: 1. Diffuse bilateral airspace opacities, left rib and right has not significant change from yesterday. This could represent pulmonary edema and/or multifocal pneumonia. Clinical correlation will be required. 2. Small pleural effusions. Electronically signed by: Dieter Jensen M.D. 08/12/2017 7:39 AM Dictated Date/Time: 08/12/2017 7:37 AM
[2017-08-12] MEDS: CHECK FENTANYL PATCH PLACEMENT SCH ×4 (08:45→23:48)
[2017-08-12] MEDS: CALCIUM CARBONATE 500 MG CHEWABLE PO SCH ×3 (09:36→22:07)
[2017-08-12] MEDS: FUROSEMIDE 40 MG TAB PO SCH (09:37)
[2017-08-12] MEDS: NEPHROCAPS PO SCH (09:37)
[2017-08-12] MEDS: POLYETHYLENE (MIRALAX) 17 GM PACK PO SCH (09:38)
[2017-08-12] MEDS: AMLODIPINE BESYLATE 5 MG TAB PO SCH (09:38)
[2017-08-12] MEDS: METOPROLOL TARTRATE 100 MG TAB PO SCH ×2 (09:39→22:07)
[2017-08-12] MEDS: METHADONE HCL 10 MG TAB PO SCH ×2 (09:41→22:08)
[2017-08-12] MEDS: INSULIN HUMAN NPH SC SCH (09:43)
[2017-08-12] MEDS: INSULIN ASPART 100 UNITS/ML 3 ML PEN SC SCH ×4 (09:44→22:09)
[2017-08-12] MEDS: BOOST GLUCOSE CONTROL PO SCH ×2 (10:00→21:00)
--- NOTE | 2017-08-12 10:10 | Nephrology Progress Note ---
Nephrology Progress Note Date of Service Aug 12, 2017. Chief Complaint Provide inpatient HD and assist w/ medical management of this patient w/ ESRD Subjective Mr. Christy was seen & examined in the PCU this morning. He was dialyzed yesterday for 3 hours w/ 3 L UF obtained. There were no complications during his treatment. Mr. Christy's weight is now back to his admission weight. Peripheral edema is markedly improved. His CXR is unchanged. Bilateral pulmonary infiltrates are stable to slightly progressive. Mr. Christy required BiPAP overnight. He is afebrile but has a mild leukocytosis. Review of Systems Constitutional: No fever Cardiovascular: No chest pain Respiratory: + dyspnea at rest Abdomen: No vomiting, No diarrhea A complete review of systems was performed. Pertinent positives are noted above. All other systems are negative. Vital Signs Last 8 Hrs Date Time Temp Pulse Resp B/P (MAP) Pulse Ox O2 Delivery O2 Flow Rate FiO2 08/12/17 07:32 37.1 102 20 165/80 (108) 90 BiPAP 08/12/17 06:23 60 08/12/17 06:09 94 28 91 BiPAP/CPAP 75 08/12/17 06:08 96 91 75 08/12/17 04:00 Mask 9.0 08/12/17 03:28 37.2 108 18 154/77 (102) 92 Last Recorded Weight Weight (Kilograms): 81.900 Physical Exam General Appearance: + mild distress (requires high flow O2) Head: normocephalic, atraumatic Eyes: PERRL, EOMI Neck: no adenopathy Respiratory/Chest: + rales (bilaterally) Cardiovascular: + tachycardia Abdomen/GI: non tender (hypoactive bowel sounds), soft Extremities/Musculoskelatal: + pertinent finding (trace pretibial edema. SCD' s in place) Neurologic/Psych: alert, oriented x 3 Family History Cervical cancer Diabetes mellitus Heart disease Hypertension Myocardial infarction Pancreatic cancer Prostate cancer Negative for CKD/ESRD Social History Smokeless Tobacco Use: No Alcohol Use: none Drug Use: none Marital Status: single Housing Status: lives alone Occupation: disabled Single, retired. Formerly worked for [employer]. Never a smoker. Laboratory Results Past 24 Hours 08/12/17 05:17 08/12/17 05:17 Test 08/11/17 11:17 08/11/17 16:24 1/19/18 20:12 08/12/17 00:05 Bedside Glucose 285 mg/dl (70-99) 138 mg/dl (70-99) 127 mg/dl (70-99) 227 mg/dl (70-99) Test 08/12/17 05:17 08/12/17 06:41 Red Blood Count 2.82 M/uL (4.7-6.1) Mean Corpuscular Volume 94.0 fL (80-100) Mean Corpuscular Hemoglobin 29.8 pg (25-34) Mean Corpuscular Hemoglobin Concent 31.7 g/dl (32-36) RDW Standard Deviation 62.1 fL (36.4-46.3) RDW Coefficient of Variation 18.3 % (11.5-14.5) Mean Platelet Volume 11.8 fL (7.4-10.4) Nucleated RBC Absolute Count (auto) 0.29 K/uL (0-0) Nucleated Red Blood Cells % 2.4 % Anion Gap 9.0 mmol/L (3-11) Est Creatinine Clear Calc Drug Dose 34.7 ml/min Estimated GFR () 34.7 Estimated GFR (Non- 29.9 BUN/Creatinine Ratio 17.3 (10-20) Calcium Level 9.1 mg/dl (8.5-10.1) Bedside Glucose 114 mg/dl (70-99) Allergies Coded Allergies: Iodinated Diagnostic Agents (Verified Allergy, Unknown, oil based, severe headaches, 06/20/17) EVENT OCCURED IN 1971, PT STATES HE HAS HAD 3 DIFFERENT WATER BASED IVP DYES WITH NO ISSUE Medications Current Inpatient Medications Medications (Trade) Dose Ordered Sig/Edward Route Start Time Stop Time Status Last Admin Dose Admin Miscellaneous (Fentanyl Patch Remove & Waste) 1 ea Q3D@0859 N/A 07/22/17 08:59 08/21/17 08:58 08/09/17 08:01 1 EA Hydralazine HCl (HydrALAZINE INJ) 5 mg Q4 PRN IV. 07/21/17 17:15 08/20/17 17:14 Future Hold 07/25/17 23:45 5 MG Hydralazine HCl (HydrALAZINE INJ) 5 mg TID IV. 07/21/17 21:00 08/20/17 20:59 Future Hold 07/30/17 08:33 5 MG Miscellaneous Information (Consult Glycemic Management Pharmacy) 1 ea UD PRN N/A 07/23/17 13:14 08/22/17 13:13 Insulin Aspart (novoLOG ASPART) SLIDING SCALE G... ACHS SC 07/27/17 11:30 08/26/17 11:29 08/11/17 21:26 10 UNITS Ipratropium [place] (Atrovent 0.02% 0.5MG/2.5ML Neb) 0.5 mg Q6R INH 07/29/17 09:00 08/28/17 08:59 08/12/17 06:06 0.5 MG Levalbuterol (Xopenex 0.63 Mg/ 3 Ml Neb) 0.63 mg Q6R INH 07/29/17 09:00 08/28/17 08:59 08/12/17 06:06 0.63 MG Metoprolol Tartrate (Lopressor Tab) 100 mg BID PO 07/29/17 21:00 08/28/17 20:59 08/11/17 21:18 100 MG Amlodipine Besylate (Norvasc Tab) 10 mg QAM PO 07/30/17 09:00 08/29/17 08:59 08/10/17 08:28 10 MG Diphenhydramine HCl (Benadryl Inj) 50 mg 4XDQ4H PRN IV 07/30/17 13:30 08/29/17 13:29 Heparin Sodium (Porcine) (Heparin Sq 5000 Unit/0.5ml) 5,000 unit Q8 SQ 07/30/17 22:00 08/29/17 21:59 08/12/17 05:40 5,000 UNIT Prednisone (PredniSONE TAB) 20 mg BIDM PO 07/31/17 07:30 08/30/17 07:29 08/11/17 21:16 20 MG Furosemide (Lasix Tab) 40 mg QAM PO 08/01/17 09:00 08/31/17 08:59 08/10/17 08:28 40 MG Calcium Carbonate (Tums Chew Tab) 500 mg TID PO 08/02/17 09:00 09/01/17 08:59 08/11/17 21:18 500 MG Enteral Nutritional Formula (Boost Glucose Control) 1 can BID@1000,2100 PO 08/01/17 21:00 08/31/17 20:59 08/11/17 21:15 1 CAN Vitamin B Complex/ Vit C/Folic Acid (Nephrocaps) 1 cap QAM PO 08/07/17 09:00 09/06/17 08:59 08/11/17 08:44 1 CAP Daptomycin 350 mg/ Syringe 7 ml @ 3.5 mls/min Q48H IV 08/07/17 13:15 08/17/17 13:14 08/11/17 21:26 3.5 MLS/MIN Fentanyl (Duragesic Patch) 25 mcg Q72H TD 08/07/17 18:00 08/21/17 17:59 08/10/17 17:32 25 MCG Miscellaneous (Fentanyl Patch Remove & Waste) 1 ea Q72H N/A 08/10/17 17:59 09/09/17 17:58 08/10/17 17:32 1 EA Miscellaneous Information (Check Fentanyl Patch Placement) 1 ea QS N/A 08/08/17 00:00 09/07/17 00:00 08/12/17 08:45 1 EA Polyethylene (Miralax Powder Packet) 17 gm DAILY PRN PO 08/09/17 07:00 09/08/17 06:59 Methadone HCl (Dolophine Tab) 20 mg BID PO 08/08/17 23:00 08/22/17 22:59 08/11/17 21:17 20 MG Ergocalciferol (Vitamin D Cap) 50,000 interunit We@0900 PO 08/09/17 10:30 09/08/17 10:29 08/09/17 14:07 50,000 INTERUNIT Polyethylene (Miralax Powder Packet) 17 gm DAILY PO 08/09/17 13:00 09/08/17 12:59 08/11/17 08:45 17 GM Heparin Sodium (Porcine) (Heparin 100 Unit/ml 5ml Flush) 5 ml PRN PRN IV 08/09/17 13:00 09/08/17 12:59 Insulin Human NPH (novoLIN-N NPH) 8 units QDD SC 08/10/17 16:45 09/09/17 16:44 Future hold Insulin Human NPH (novoLIN-N NPH) 12 units QDB SC 08/11/17 07:30 09/10/17 07:29 08/11/17 08:53 12 UNITS Oxycodone HCl (Oxycontin Tab) 10 mg TID PRN PO 08/11/17 11:30 08/25/17 11:29 08/11/17 21:08 10 MG Simvastatin (Zocor Tab) 20 mg PM PO 08/11/17 21:00 09/10/17 20:59 08/11/17 21:19 20 MG Tamsulosin HCl (Flomax Cap) 0.4 mg HS PO 08/11/17 21:00 09/10/17 20:59 08/11/17 21:17 0.4 MG Impression (1) Cellulitis of left hand (2) ESRD (end stage renal disease) on dialysis (3) Renal cell carcinoma (4) Anemia (5) Diabetes type 2, controlled Mr. Christy had metastatic RCCA. He underwent left nephrectomy 2015. He did not tolerate Sutent due to high grade proteinuria. Opdivo caused arthralgia, colitis and possible pneumonitis. He was most recently treated w/ Cabometyx. 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 Colonic reanastamosis was performed at the time of surgery. The patient has a complex medical history including persistent soft tissue infection of the left hand, C. Difficile colitis, metastatic RCCA, interstitial lung disease requiring steroid therapy, dc glabrata infection of pleural and peritoneal fluid Mr. Christy's dialysis has been complicated by prolonged bleeding from the AVF following treatment. 07/23 doppler study revealed a high grade venous outflow stenosis. He required fistulagram and coil embolization 07/25/16. Recommendations END STAGE RENAL DISEASE: -- Patient has been dialyzed 3 days in a row for 7 L UF. He is now back to his admission weight and peripheral edema has greatly improved. Electrolyte balance is acceptable. No acute indication for HD today. -- L arm remains swollen. Spoke w/ Vascular Surgery earlier this week: No central venous stenosis on fistulagram 07/25/17 -- 08/12 CXR film this am reviewed: Persistent pulmonary infiltrates. No change despite aggressive UF on HD. ANEMIA: -- Patient was transfused 1 unit PRBC 08/06/17 & 08/09/17 -- Low iron saturation but high ferritin. Hold IV iron for now -- Will recheck H&H in am PULMONARY: -- Pulmonary infiltrates have not improved despite aggressive UF on HD. Patient has mild leukocytosis and recently cultured + for dc in the pleural and peritoneal fluid. Recommend consultation w/ Pulmonology and ID. Question whether patient may benefit from bronchoscopy or expanding antimicrobial coverage to include yeast / fungus. Will discuss w/ primary service. HYPERTENSION: -- BP is acceptable -- Continue Amlodipine CKD-BMD: -- Ionized calcium is within normal limits -- Vitamin D is low. Weekly Ergocalciferol has been restarted OTHER: -- Recommend physical therapy evaluation for strengthening exercises
[2017-08-12] MEDS: OXYCODONE HCL 10 MG TABCR (OXYCONTIN) PO PRN (16:01)
--- NOTE | 2017-08-12 16:34 | Progress Note ---
Subjective Date of Service: Aug 12, 2017. Subjective Pt evaluation today including: conversation w/ patient, conversation w/ family , physical exam, chart review, lab review, review of studies, conversation w/ building performance consultant, review of inpatient medication list Pain: none PO Intake: good Patient is seen and examined by me. Pt has sob earlier this morning and requires BIPAP for more than 3 hour continuos and saturating in 90-92 %. However patient does desaturate when taken off form the BIPAP. Pt states he does have some productive cough but denies fever, chills, rigors and sweats. Pt denies nausea, vomiting and diarrhea. Pt states he feels not as well like yesterday.Pt swelling in the left hand is slightly improved but still there is erythema and tenderness. Problem List Medical Problems: (1) Acute dyspnea Status: Acute (2) Chronic kidney disease Status: Acute (3) Failure of outpatient treatment Status: Acute (4) Left arm cellulitis Status: Acute (5) Renal cell carcinoma Status: Acute Review of Systems Constitutional: + fatigue, No fever, No chills, No sweats, No weakness Respiratory: + cough, + sputum, + wheezing, + shortness of breath Cardiac: No chest pain, No edema, No palpitations Abdomen: No pain, No nausea, No vomiting, No diarrhea, No GI bleeding Musculoskeletal: No joint pain Male : + problem reported (on HD and make a very little urine) Endo: No fatigue Skin: No rash Medications Medications (Trade) Dose Ordered Sig/Edward Route Start Time Stop Time Status Last Admin Dose Admin Simvastatin (Zocor Tab) 20 mg PM PO 08/11/17 21:00 09/10/17 20:59 08/11/17 21:19 20 MG Tamsulosin HCl (Flomax Cap) 0.4 mg HS PO 08/11/17 21:00 09/10/17 20:59 08/11/17 21:17 0.4 MG Objective Vital Signs Date Time Temp Pulse Resp B/P (MAP) Pulse Ox O2 Delivery O2 Flow Rate FiO2 08/12/17 15:41 37.0 103 20 156/70 (98) 86 Oxymask 15.0 08/12/17 12:00 BiPAP 50 08/12/17 11:30 36.8 107 18 161/83 (109) 92 08/12/17 08:00 BiPAP 50 08/12/17 07:32 37.1 102 20 165/80 (108) 90 BiPAP 08/12/17 06:23 60 08/12/17 06:09 94 28 91 BiPAP/CPAP 75 08/12/17 06:08 96 91 75 08/12/17 04:00 Mask 9.0 08/12/17 03:28 37.2 108 18 154/77 (102) 92 08/12/17 01:27 102 16 92 Mask 11.0 08/12/17 00:08 37.0 113 18 152/77 (102) 90 Oxymask 11.0 08/12/17 00:00 Mask 9.0 08/11/17 20:00 Mask 9.0 08/11/17 19:52 103 18 92 Mask 11.0 08/11/17 19:28 37.2 102 18 158/78 (104) 91 Oxymask 11.0 08/11/17 17:55 37.3 102 177/89 (118) 08/11/17 17:15 102 153/73 08/11/17 17:00 102 150/78 08/11/17 16:45 102 159/84 08/11/17 16:30 104 159/82 08/11/17 16:15 104 161/80 08/11/17 16:00 103 170/76 08/11/17 16:00 Oxymask 9.0 Physical Exam General Appearance: + mild distress, + obese Eyes: EOMI Neck: supple, no JVD Respiratory/Chest: + wheezing, + pertinent finding (slightly decrease breath sounds) Cardiovascular: regular rate, rhythm, no murmur Abdomen: + pertinent finding ((Incision site bandage C/D/I )) Extremities: + pedal edema (2= edema bilateral LE), + pertinent finding ((+L hand swelling and erythema, no obvious drainage or open wounds )) Neurologic/Psychiatric: no motor/sensory deficits, alert, normal mood/affect, oriented x 3 Lymphatic: no adenopathy Laboratory Results Last 24 Hours Test 08/11/17 16:24 08/11/17 20:12 08/12/17 00:05 08/12/17 05:17 Bedside Glucose 138 mg/dl 127 mg/dl 227 mg/dl White Blood Count 12.40 K/uL Red Blood Count 2.82 M/uL Hemoglobin 8.4 g/dL Hematocrit 26.5 % Mean Corpuscular Volume 94.0 fL Mean Corpuscular Hemoglobin 29.8 pg Mean Corpuscular Hemoglobin Concent 31.7 g/dl RDW Standard Deviation 62.1 fL RDW Coefficient of Variation 18.3 % Platelet Count 96 K/uL Mean Platelet Volume 11.8 fL Nucleated RBC Absolute Count (auto) 0.29 K/uL Nucleated Red Blood Cells % 2.4 % Sodium Level 137 mmol/L Potassium Level 4.5 mmol/L Chloride Level 103 mmol/L Carbon Dioxide Level 25 mmol/L Anion Gap 9.0 mmol/L Blood Urea Nitrogen 39 mg/dl Creatinine 2.25 mg/dl Est Creatinine Clear Calc Drug Dose 34.7 ml/min Estimated GFR () 34.7 Estimated GFR (Non- 29.9 BUN/Creatinine Ratio 17.3 Random Glucose 131 mg/dl Calcium Level 9.1 mg/dl Test 08/12/17 06:41 08/12/17 11:07 Bedside Glucose 114 mg/dl 191 mg/dl Assessment and Plan Assessment and Plan Mr. Christy is a 61 y/o M with PMH of ESRD on HD, RCC, DMII. Admitted for L hand cellulitis having failed outpatient management. Abdominal pain, found to have incidental rectus sheath hematoma, C.diff positive colitis and subsequent bowel perforation on 07/21, now s/p colectomy, anemia, and bilateral pneumonia on imaging. Acute hypoxia respiratory failure, ?secondary to pulmonary edema vs cryptogenic organizing pneumonia/drug related pneumonitis: - Continue O2 supplementation to maintain SaO2 >92%, wean as tolerated , currently requiring oxy mask 15L, CXR reviewed and still ongoing infiltrate plus unable to wean from higher oxygen requirement, would like pulmonary/ID to give some input. Elevated wbc could be secondary to steroids and may be misleading. - Large R pleural effusion s/p thoracentesis completed 07/30/17- pleural pathology w/ no malignancy, pleural cultures growing yeast- completed IV Caspofungin - IV Solu-Medrol- transitioned to Prednisone 20 mg BID on 07/31 for prolonged taper - DuoNebs QID and PRN - Pulmonary following- thinks poor respiratory status is secondary to inactivity - encouraged incentive spirometer, OOB in chair throughout day, working w/ PT - Middle School Tutor consulted 08/12 for continuos BIPAP requirement on floor and desaturation on nasal mask- will upgrade to ICU if needed C. diff colitis, perforated jejunal bowel s/p colectomy - Surgical management as per surgery, POD #19 - currently on mechanical soft diet - Underlying severe protein malnutrition, albumin 1.3- boost BID - C.Diff + 07/12/17: Completed 9 days of PO Vancomycin on 07/21 - C. glabratum growth- Completed Caspofungin x10 days on 08/06 - Pain controlled w/ Methadone, Morphine IV PRN switched to Oxycodone TID PRN Metastatic RCC s/p L nephrectomy, chronic pain: - Oncology consulted- holding treatment at this time due to acute issues- f/u outpatient - Palliative care following- appreciate recommendations for pain control- Methadone, Fentanyl, and Oxycodone PRN ESRD HD, secondary to RCC/ s/p left nephrectomy- HD on MWF, ESRD bone mineral disease: - Nephrology following - 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 on 07/23-- vascular surgery consulted- s/p AVR repair on 07/25/17 - Hypocalcemia w/ vitamin D level of 17.4: Ergocalciferol 50,000 q7d indefinitely + daily D3 2000 when patient resumes oral intake- recheck levels in 12 weeks - Calcitriol and CaCO3 Left hand cellulitis, ?reflex sympathetic dystrophy: - Initial MRI did not determine any osteomyelitis - ID consulted: -- Treated initially with Ertapenem/Daptomycin, then transitioned to Cefepime - treated 07/22- 07/30 -- Daptomycin started on 08/07 per ID recommendations- ID following DMII: Pharmacy consulted for glycemic management Acute anemia- transfused a total of 8 u PRBCs: - Nephrology following- Epogen with dialysis - H&H- hgb 8.4 on 08/11 - Continue to follow H&H and transfuse PRN for hgb < 7 or symptomatic - Iron panel reviewed- nephrology holding on IV iron at this time HTN, HLD: - Furosemide 40 mg PO daily, Amlodipine 10 mg daily, Metoprolol 100 mg PO BID, Lisinopril 40 mg daily - Hydralazine 100 mg TID held- BPs well controlled at this time - Monitor I&Os and daily weights - Simvastatin 20 mg HS held due to NPO status- resume today BPH: Tamsulosin 0.4 mg PO daily held due to NPO status- resume today DVT Prophylaxis: Heparin SQ TID Code Status: LEVEL I, FULL Continued [facility] stay due to: ambulation difficulties, multiple IV medications needed, other (still with high O2 requirement) Discharge planning: rehab hospital (Pt motivated to get better and to work on strengthening)
[2017-08-12] MEDS ORDERED: INSULIN HUMAN NPH SC SCH (16:45)
[2017-08-12] MEDS: TAMSULOSIN HCL 0.4 MG CAP PO SCH (22:07)
[2017-08-12] MEDS: SIMVASTATIN 20 MG TAB PO SCH (22:07)
[2017-08-13] VITALS (11 sets, daily range): BP systolic 142–162; BP diastolic 69–79; PULSE 88–105; TEMP 36.6–37.2; O2SAT 87–100
[2017-08-13] MEDS: LEVALBUTEROL 0.63MG/3 ML NEB INH SCH ×4 (02:37→19:19)
[2017-08-13] MEDS: IPRATROPIUM BROMIDE NEB SOLN 0.02% 2.5 ML VIAL INH SCH ×4 (02:37→19:18)
[2017-08-13] MEDS: HEPARIN SOD 5000 UNIT/0.5 ML CARP SQ SCH ×3 (05:51→21:40)
[2017-08-13 06:40] LABS: HEMATOCRIT 27.6 % (42-52); HEMOGLOBIN 8.7 g/dL (14.0-18.0); MEAN CELL VOLUME 93.2 fL (80-100); MEAN CORPUSCULAR HEMOGLOBIN 29.4 pg (25-34); MEAN CORPUSCULAR HGB CONC 31.5 g/dl (32-36); NUCLEATED RED BLOOD CELL ABS 0.08 K/uL (0-0); RED CELL DISTRIBUTION WIDTH CV 17.8 % (11.5-14.5); WHITE BLOOD COUNT 14.31 K/uL (4.8-10.8)
[2017-08-13 06:46] LABS: MEAN PLATELET VOLUME 11.8 fL (7.4-10.4); PLATELET COUNT 98 K/uL (130-400)
[2017-08-13 07:16] LABS: CALCIUM 9.6 mg/dl (8.5-10.1); CREATININE 3.24 mg/dl (0.60-1.40); POTASSIUM 5.2 mmol/L (3.5-5.1)
--- NOTE | 2017-08-13 08:13 | Progress Note ---
Subjective Date of Service: Aug 13, 2017. Subjective Pt evaluation today including: conversation w/ patient, physical exam, chart review, lab review, review of studies, review of inpatient medication list Pain: none PO Intake: good Patient is seen and examined by me. Pt denies cp, sob, dizziness, palpitation and loss of consciousness. Pt breathing is slightly better. Pt was on bi-pap last night, and did well. this morning on oxy mask and currently on 10-12 L and sat 92%.Pt states he feels better compare to yesterday and eating. Pt denies nausea, vomiting, abdominal pain and diarrhea. Problem List Medical Problems: (1) Acute dyspnea Status: Acute (2) Chronic kidney disease Status: Acute (3) Failure of outpatient treatment Status: Acute (4) Left arm cellulitis Status: Acute (5) Renal cell carcinoma Status: Acute Review of Systems Respiratory: + shortness of breath All Other Systems: Reviewed and Negative Medications Medications (Trade) Dose Ordered Sig/Edward Route Start Time Stop Time Status Last Admin Dose Admin Insulin Human NPH (novoLIN-N NPH) 4 units QDD SC 08/12/17 16:45 08/13/17 07:18 DC 08/12/17 18:49 4 UNITS Objective Vital Signs Date Time Temp Pulse Resp B/P (MAP) Pulse Ox O2 Delivery O2 Flow Rate FiO2 08/13/17 07:35 95 20 92 Mask 11.0 08/13/17 04:00 BiPAP 08/13/17 03:44 37.0 105 18 162/77 (105) 99 08/13/17 02:20 97 20 100 BiPAP/CPAP 60 08/13/17 02:20 97 100 60 08/13/17 00:00 96 94 60 08/13/17 00:00 BiPAP 08/12/17 23:41 36.8 92 18 155/79 (104) 94 08/12/17 20:06 36.6 98 18 148/75 (99) 94 Oxymask 11.0 08/12/17 20:00 Mask 15.0 08/12/17 19:37 94 20 94 Mask 11.0 08/12/17 16:00 BiPAP 60 08/12/17 15:41 37.0 103 20 156/70 (98) 86 Oxymask 15.0 08/12/17 12:00 BiPAP 50 08/12/17 11:30 36.8 107 18 161/83 (109 92 Physical Exam General Appearance: no apparent distress, + pertinent finding (oxy mask) Eyes: EOMI Neck: supple Respiratory/Chest: + pertinent finding (decraese BS at the bases) Cardiovascular: regular rate, rhythm, no edema, no murmur Abdomen: normal bowel sounds, soft Extremities: + pedal edema, + pertinent finding (left hand swellling and erythema improved, able to open and close hand without difficulty) Neurologic/Psychiatric: alert, normal mood/affect, oriented x 3 Laboratory Results Last 24 Hours Test 08/12/17 11:07 08/12/17 16:00 08/12/17 20:04 08/12/17 23:56 Bedside Glucose 191 mg/dl 152 mg/dl 210 mg/dl 280 mg/dl Test 08/13/17 06:26 08/13/17 06:32 White Blood Count 14.31 K/uL Red Blood Count 2.96 M/uL Hemoglobin 8.7 g/dL Hematocrit 27.6 % Mean Corpuscular Volume 93.2 fL Mean Corpuscular Hemoglobin 29.4 pg Mean Corpuscular Hemoglobin Concent 31.5 g/dl RDW Standard Deviation 60.0 fL RDW Coefficient of Variation 17.8 % Platelet Count 98 K/uL Mean Platelet Volume 11.8 fL Nucleated RBC Absolute Count (auto) 0.08 K/uL Nucleated Red Blood Cells % 0.5 % Sodium Level 136 mmol/L Potassium Level 5.2 mmol/L Chloride Level 102 mmol/L Carbon Dioxide Level 25 mmol/L Anion Gap 9.0 mmol/L Creatinine 3.24 mg/dl Est Creatinine Clear Calc Drug Dose 24.1 ml/min Estimated GFR () 22.3 Estimated GFR (Non- 19.3 BUN/Creatinine Ratio 21.9 Random Glucose 203 mg/dl Calcium Level 9.6 mg/dl Bedside Glucose 190 mg/dl Assessment and Plan Assessment and Plan Mr. Christy is a 61 y/o M with PMH of ESRD on HD, RCC, DMII. Admitted for L hand cellulitis having failed outpatient management. Abdominal pain, found to have incidental rectus sheath hematoma, C.diff positive colitis and subsequent bowel perforation on 07/21, now s/p colectomy, anemia, and bilateral pneumonia on imaging. Acute hypoxia respiratory failure, ?secondary to pulmonary edema vs cryptogenic organizing pneumonia/drug related pneumonitis: - Continue O2 supplementation to maintain SaO2 >92%, wean as tolerated , currently requiring oxy mask 151L, CXR reviewed and still ongoing infiltrate plus unable to wean from higher oxygen requirement, would like pulmonary/ID to give some input. Elevated wbc could be secondary to steroids and may be misleading.feeling better, wbc trended upward - Large R pleural effusion s/p thoracentesis completed 07/30/17- pleural pathology w/ no malignancy, pleural cultures growing yeast- completed IV Caspofungin - IV Solu-Medrol- transitioned to Prednisone 20 mg BID on 07/31 for prolonged taper - DuoNebs QID and PRN - Pulmonary following- thinks poor respiratory status is secondary to inactivity - encouraged incentive spirometer, OOB in chair throughout day, working w/ PT - Product Promoter Sales Person consulted 08/12 for continuos BIPAP requirement on floor and desaturation on nasal mask- will upgrade to ICU if needed C. diff colitis, perforated jejunal bowel s/p colectomy - Surgical management as per surgery, POD #19 - currently on mechanical soft diet - Underlying severe protein malnutrition, albumin 1.3- boost BID - C.Diff + 07/12/17: Completed 9 days of PO Vancomycin on 07/21 - C. glabratum growth- Completed Caspofungin x10 days on 08/06 - Pain controlled w/ Methadone, Morphine IV PRN switched to Oxycodone TID PRN Metastatic RCC s/p L nephrectomy, chronic pain: - Oncology consulted- holding treatment at this time due to acute issues- f/u outpatient - Palliative care following- appreciate recommendations for pain control- Methadone, Fentanyl, and Oxycodone PRN ESRD HD, secondary to RCC/ s/p left nephrectomy- HD on MWF, ESRD bone mineral disease: - Nephrology following - 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 on 07/23-- vascular surgery consulted- s/p AVR repair on 07/25/17 - Hypocalcemia w/ vitamin D level of 17.4: Ergocalciferol 50,000 q7d indefinitely + daily D3 2000 when patient resumes oral intake- recheck levels in 12 weeks - Calcitriol and CaCO3 Left hand cellulitis, ?reflex sympathetic dystrophy: - Initial MRI did not determine any osteomyelitis - ID consulted: -- Treated initially with Ertapenem/Daptomycin, then transitioned to Cefepime - treated 07/22- 07/30 -- Daptomycin started on 08/07 per ID recommendations- ID following DMII: Pharmacy consulted for glycemic management Acute anemia- transfused a total of 8 u PRBCs: - Nephrology following- Epogen with dialysis - H&H- hgb 8.4 on 08/11 - Continue to follow H&H and transfuse PRN for hgb < 7 or symptomatic - Iron panel reviewed- nephrology holding on IV iron at this time HTN, HLD: - Furosemide 40 mg PO daily, Amlodipine 10 mg daily, Metoprolol 100 mg PO BID, Lisinopril 40 mg daily - Hydralazine 100 mg TID held- BPs well controlled at this time - Monitor I&Os and daily weights - Simvastatin 20 mg HS held due to NPO status- resume today BPH: Tamsulosin 0.4 mg PO daily held due to NPO status- resume today DVT Prophylaxis: Heparin SQ TID Code Status: LEVEL I, FULL Continued [facility] stay due to: ambulation difficulties, multiple IV medications needed, other (still with high O2 requirement) Discharge planning: rehab hospital (Pt motivated to get better and to work on strengthening)
[2017-08-13] MEDS: NEPHROCAPS PO SCH (08:14)
[2017-08-13] MEDS: AMLODIPINE BESYLATE 5 MG TAB PO SCH (08:14)
[2017-08-13] MEDS: FUROSEMIDE 40 MG TAB PO SCH (08:15)
[2017-08-13] MEDS: CALCIUM CARBONATE 500 MG CHEWABLE PO SCH ×3 (08:15→21:35)
[2017-08-13] MEDS: METOPROLOL TARTRATE 100 MG TAB PO SCH ×2 (08:15→21:35)
[2017-08-13] MEDS: CHECK FENTANYL PATCH PLACEMENT SCH ×2 (08:16→16:02)
[2017-08-13] MEDS: POLYETHYLENE (MIRALAX) 17 GM PACK PO SCH (08:16)
[2017-08-13] MEDS: INSULIN ASPART 100 UNITS/ML 3 ML PEN SC SCH ×4 (08:23→21:40)
[2017-08-13] MEDS: METHADONE HCL 10 MG TAB PO SCH ×2 (08:24→21:35)
[2017-08-13] MEDS: INSULIN HUMAN NPH SC SCH ×2 (08:24→17:43)
[2017-08-13] MEDS: BOOST GLUCOSE CONTROL PO SCH ×2 (10:00→21:27)
[2017-08-13] MEDS ORDERED: FUROSEMIDE 40 MG TAB PO ONE (10:15)
--- NOTE | 2017-08-13 10:23 | Nephrology Progress Note ---
Nephrology Progress Note Date of Service Aug 13, 2017. Chief Complaint Provide inpatient HD and assist w/ medical management of this patient w/ ESRD Subjective Mr. Christy was seen & examined in his hospital room this morning. He remains on high flow O2 and complains of weakness. He denies overt blood loss. His last dialysis treatment was on Monday. He had been dialyzed 3 days in a row for 7 L UF. Mr. Christy is now back to his admission weight. HD was held yesterday due to bruising and swelling at the site of his AVF. Review of Systems Constitutional: No fever Cardiovascular: No chest pain Respiratory: + dyspnea at rest (relieved w/ high flow O2) Abdomen: No pain, No vomiting Extremities: No leg edema A complete review of systems was performed. Pertinent positives are noted above. All other systems are negative. Vital Signs Last 8 Hrs Date Time Temp Pulse Resp B/P (MAP) Pulse Ox O2 Delivery O2 Flow Rate FiO2 08/13/17 08:24 36.6 90 20 162/79 (106) 87 Oxymask 11.0 08/13/17 07:35 95 20 92 Mask 11.0 08/13/17 04:00 BiPAP 08/13/17 03:44 37.0 105 18 162/77 (105) 99 08/13/17 02:20 97 20 100 BiPAP/CPAP 60 08/13/17 02:20 97 100 60 Last Recorded Weight Weight (Kilograms): 81.900 Physical Exam General Appearance: + mild distress (requires high flow O2) Eyes: PERRL, EOMI Respiratory/Chest: + rales Cardiovascular: + tachycardia Abdomen/GI: non tender (hypoactive bowel sounds), soft Extremities/Musculoskelatal: + pertinent finding (trace dependent edema) Neurologic/Psych: alert, oriented x 3 Family History Cervical cancer Diabetes mellitus Heart disease Hypertension Myocardial infarction Pancreatic cancer Prostate cancer Negative for CKD/ESRD Social History Smokeless Tobacco Use: No Alcohol Use: none Drug Use: none Marital Status: single Housing Status: lives alone Occupation: disabled Single, retired. Formerly worked for [employer]. Never a smoker. Laboratory Results Past 24 Hours 08/13/17 06:26 08/13/17 06:26 Test 08/12/17 11:07 08/12/17 16:00 08/12/17 20:04 08/12/17 23:56 Bedside Glucose 191 mg/dl (70-99) 152 mg/dl (70-99) 210 mg/dl (70-99) 280 mg/dl (70-99) Test 08/13/17 06:26 08/13/17 06:32 Red Blood Count 2.96 M/uL (4.7-6.1) Mean Corpuscular Volume 93.2 fL (80-100) Mean Corpuscular Hemoglobin 29.4 pg (25-34) Mean Corpuscular Hemoglobin Concent 31.5 g/dl (32-36) RDW Standard Deviation 60.0 fL (36.4-46.3) RDW Coefficient of Variation 17.8 % (11.5-14.5) Mean Platelet Volume 11.8 fL (7.4-10.4) Nucleated RBC Absolute Count (auto) 0.08 K/uL (0-0) Nucleated Red Blood Cells % 0.5 % Anion Gap 9.0 mmol/L (3-11) Est Creatinine Clear Calc Drug Dose 24.1 ml/min Estimated GFR () 22.3 Estimated GFR (Non- 19.3 BUN/Creatinine Ratio 21.9 (10-20) Calcium Level 9.6 mg/dl (8.5-10.1) Bedside Glucose 190 mg/dl (70-99) Allergies Coded Allergies: Iodinated Diagnostic Agents (Verified Allergy, Unknown, oil based, severe headaches, 06/20/17) EVENT OCCURED IN 1971, PT STATES HE HAS HAD 3 DIFFERENT WATER BASED IVP DYES WITH NO ISSUE Medications Current Inpatient Medications Medications (Trade) Dose Ordered Sig/Edward Route Start Time Stop Time Status Last Admin Dose Admin Hydralazine HCl (HydrALAZINE INJ) 5 mg Q4 PRN IV. 07/21/17 17:15 08/20/17 17:14 Future Hold 07/25/17 23:45 5 MG Hydralazine HCl (HydrALAZINE INJ) 5 mg TID IV. 07/21/17 21:00 08/20/17 20:59 Future Hold 07/30/17 08:33 5 MG Miscellaneous Information (Consult Glycemic Management Pharmacy) 1 ea UD PRN N/A 07/23/17 13:14 08/22/17 13:13 Insulin Aspart (novoLOG ASPART) SLIDING SCALE G... ACHS SC 07/27/17 11:30 08/26/17 11:29 08/13/17 08:23 5 UNITS Ipratropium Echo (Atrovent 0.02% 0.5MG/2.5ML Neb) 0.5 mg Q6R INH 07/29/17 09:00 08/28/17 08:59 08/13/17 07:35 0.5 MG Levalbuterol (Xopenex 0.63 Mg/ 3 Ml Neb) 0.63 mg Q6R INH 07/29/17 09:00 08/28/17 08:59 08/13/17 07:35 0.63 MG Metoprolol Tartrate (Lopressor Tab) 100 mg BID PO 07/29/17 21:00 08/28/17 20:59 08/13/17 08:15 100 MG Amlodipine Besylate (Norvasc Tab) 10 mg QAM PO 07/30/17 09:00 08/29/17 08:59 08/13/17 08:14 10 MG Diphenhydramine HCl (Benadryl Inj) 50 mg 4XDQ4H PRN IV 07/30/17 13:30 08/29/17 13:29 Heparin Sodium (Porcine) (Heparin Sq 5000 Unit/0.5ml) 5,000 unit Q8 SQ 07/30/17 22:00 08/29/17 21:59 08/13/17 05:51 5,000 UNIT Prednisone (PredniSONE TAB) 20 mg BIDM PO 07/31/17 07:30 08/30/17 07:29 08/13/17 08:13 20 MG Furosemide (Lasix Tab) 40 mg QAM PO 08/01/17 09:00 08/31/17 08:59 08/13/17 08:15 40 MG Calcium Carbonate (Tums Chew Tab) 500 mg TID PO 08/02/17 09:00 09/01/17 08:59 08/13/17 08:15 500 MG Enteral Nutritional Formula (Boost Glucose Control) 1 can BID@1000,2100 PO 08/01/17 21:00 08/31/17 20:59 08/12/17 21:00 1 CAN Vitamin B Complex/ Vit C/Folic Acid (Nephrocaps) 1 cap QAM PO 08/07/17 09:00 09/06/17 08:59 08/13/17 08:14 1 CAP Daptomycin 350 mg/ Syringe 7 ml @ 3.5 mls/min Q48H IV 08/07/17 13:15 08/17/17 13:14 08/11/17 21:26 3.5 MLS/MIN Fentanyl (Duragesic Patch) 25 mcg Q72H TD 08/07/17 18:00 08/21/17 17:59 08/10/17 17:32 25 MCG Miscellaneous (Fentanyl Patch Remove & Waste) 1 ea Q72H N/A 08/10/17 17:59 09/09/17 17:58 08/10/17 17:32 1 EA Miscellaneous Information (Check Fentanyl Patch Placement) 1 ea QS N/A 08/08/17 00:00 09/07/17 00:00 08/13/17 08:16 1 EA Polyethylene (Miralax Powder Packet) 17 gm DAILY PRN PO 08/09/17 07:00 09/08/17 06:59 Methadone HCl (Dolophine Tab) 20 mg BID PO 08/08/17 23:00 08/22/17 22:59 08/13/17 08:24 20 MG Ergocalciferol (Vitamin D Cap) 50,000 interunit We@0900 PO 08/09/17 10:30 09/08/17 10:29 08/09/17 14:07 50,000 INTERUNIT Polyethylene (Miralax Powder Packet) 17 gm DAILY PO 08/09/17 13:00 09/08/17 12:59 08/13/17 08:16 17 GM Heparin Sodium (Porcine) (Heparin 100 Unit/ml 5ml Flush) 5 ml PRN PRN IV 08/09/17 13:00 09/08/17 12:59 Insulin Human NPH (novoLIN-N NPH) 12 units QDB SC 08/11/17 07:30 09/10/17 07:29 08/13/17 08:24 12 UNITS Oxycodone HCl (Oxycontin Tab) 10 mg TID PRN PO 08/11/17 11:30 08/25/17 11:29 08/12/17 16:01 10 MG Simvastatin (Zocor Tab) 20 mg PM PO 08/11/17 21:00 09/10/17 20:59 08/12/17 22:07 20 MG Tamsulosin HCl (Flomax Cap) 0.4 mg HS PO 08/11/17 21:00 09/10/17 20:59 08/12/17 22:07 0.4 MG Insulin Human NPH (novoLIN-N NPH) 6 units QDD SC 08/13/17 16:45 09/12/17 16:44 Impression (1) Cellulitis of left hand (2) ESRD (end stage renal disease) on dialysis (3) Renal cell carcinoma (4) Anemia (5) Diabetes type 2, controlled Mr. Christy had metastatic RCCA. He underwent left nephrectomy 2015. He did not tolerate Sutent due to high grade proteinuria. Opdivo caused arthralgia, colitis and possible pneumonitis. He was most recently treated w/ Cabometyx. 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 Colonic reanastamosis was performed at the time of surgery. The patient has a complex medical history including persistent soft tissue infection of the left hand, C. Difficile colitis, metastatic RCCA, interstitial lung disease requiring steroid therapy, dc glabrata infection of pleural and peritoneal fluid Mr. Christy's dialysis has been complicated by prolonged bleeding from the AVF following treatment. 07/23 doppler study revealed a high grade venous outflow stenosis. He required fistulagram and coil embolization 07/25/16. Recommendations END STAGE RENAL DISEASE: -- AVF examined this am. Site remains bruised and swollen. Will rest AVF today and schedule next HD for Monday am. Patient has recently been aggressively dialyzed for 7 L UF. He is back to his admission weight -- Patient has mild hyperkalemia. Will add low potassium restriction to dietary order. Patient still makes urine. Will administer Furosemide 100 mg po x 1 this am -- Repeat PRP & H/H in am ANEMIA: -- Patient was transfused 1 unit PRBC 08/06/17 & 08/09/17 -- Low iron saturation but high ferritin. Hold IV iron for now PULMONARY: -- Pulmonary infiltrates have not improved despite aggressive UF on HD. Patient has mild leukocytosis and recently cultured + for dc in the pleural and peritoneal fluid. Recommend consultation w/ Pulmonology and ID. Question whether patient may benefit from bronchoscopy or expanding antimicrobial coverage to include yeast / fungus. HYPERTENSION: -- BP is acceptable -- Continue Amlodipine CKD-BMD: -- Ionized calcium is within normal limits -- Vitamin D is low. Weekly Ergocalciferol has been restarted OTHER: -- Recommend physical therapy evaluation for strengthening exercises
--- NOTE | 2017-08-13 14:58 | Pharmacy Progress Note ---
Glycemic Control Progress Note Date of Service Aug 13, 2017. Scope Glycemic Pharmacist consulted for glycemic control to write orders per [facility] inpatient glycemic control protocol. Objective Accuchecks BSG (last 24hrs): Test 08/12/17 16:00 08/12/17 20:04 08/12/17 23:56 08/13/17 06:26 Bedside Glucose 152 mg/dl (70-99) 210 mg/dl (70-99) 280 mg/dl (70-99) Random Glucose 203 mg/dl (70-99) Test 08/13/17 06:32 08/13/17 11:03 Bedside Glucose 190 mg/dl (70-99) 187 mg/dl (70-99) Recent Pertinent Medications The patient is currently receiving: * Basal insulin: Given on 08/12/17: NPH 14 units w/ breakfast and 4 units w/ dinner * Correctional Insulin: Novolog Correction per scale ACHS Goal Range: Low 120 mg/dL - High 160 mg/dL Correction Factor: 25 mg/dL/unit * Prandial insulin: Per carb ratio of 1 unit per 8 grams CHO consumed Outpatient Anti-Diabetic Meds Lantus 14 units Q HS Humalog TID w/ meals, CR 1 unit per 10gm CHO + SSI Assessment & Plan ASSESSMENT: 08/11/17 * Fasting BSG close to goal this AM w/ 18 units of NPH in last 24 hours * BSGs have ranged 72-179 over last 24 hours - all BSGs but one under 100 yesterday - leading me to believe the AM NPH dose should be reduced * Patient appears to be sensitive to small changes in NPH * Of note, Dietary has ordered this patient Boost supplements containing 20gm CHO at 1000 + 2100; all BSGs pre-lunch will be artificially elevated as a result and should be interpreted as such - reacting to elevated BSGs pre-lunch can lead to over-correction and subsequent hypoglycemia. * CF and CR have performed well thus far * Prednisone 20mg PO BID continues - per provider's notes, a prolonged taper is planned. 08/13/17 * Glycemic control has been erratic over the last 24 hours * BSG pattern difficult to interpret due to Dietary supplements sometimes given before BSGs being check, supplements given at 1000 + 2100 thus the BSGs check pre-lunch and HS may in fact be post-prandial and not pre-meal values * Fasting AM BSG elevated today, this is no consistent with prior fasting AM values on the same NPH dose - will not react by making a large change in NPH, although a small increase in the dinner-time NPH dose may be helpful * No HD scheduled today * Prednisone 20mg BID continues PLAN FOR INPATIENT GLYCEMIC CONTROL: * Changing NPH to 12 units SQ w/ breakfast + 6 units w/ dinner * Continuing correction factor of 25 mg/dl/unit * Continuing carb ratio of 1 unit per 8 grams CHO consumed * Continuing goal range of Low 120 mg/dL - High 160 mg/dL * Reevaluate insulin doses w/ each step down in steroid dose * Please note that the plan above was derived based on current level of insulin resistance and hospital stress. These recommendations are appropriate for inpatient admission only. Plan of care upon discharge will need to be reassessed to avoid potential outpatient hypo/hyperglycemia. Thank you.
[2017-08-13] MEDS: OXYCODONE HCL 10 MG TABCR (OXYCONTIN) PO PRN (17:26)
[2017-08-13] MEDS: FENTANYL 25 MCG/HR TDSY TD SCH (17:46)
[2017-08-13] MEDS: FENTANYL PATCH REMOVE & WASTE SCH (17:47)
[2017-08-13] MEDS: DAPTOmycin IV 350 MG in SYRINGE 0 ML IV SCH (20:02)
[2017-08-13] MEDS: SIMVASTATIN 20 MG TAB PO SCH (21:35)
[2017-08-13] MEDS: TAMSULOSIN HCL 0.4 MG CAP PO SCH (21:35)
[2017-08-14] VITALS (32 sets, daily range): BP systolic 95–184; BP diastolic 42–102; PULSE 72–115; TEMP 36.9–37.2; O2SAT 87–100
[2017-08-14] MEDS: CHECK FENTANYL PATCH PLACEMENT SCH ×3 (00:03→16:50)
[2017-08-14] MEDS: LEVALBUTEROL 0.63MG/3 ML NEB INH SCH ×4 (02:39→19:42)
[2017-08-14] MEDS: IPRATROPIUM BROMIDE NEB SOLN 0.02% 2.5 ML VIAL INH SCH ×4 (02:39→19:41)
[2017-08-14] MEDS: HEPARIN SOD 5000 UNIT/0.5 ML CARP SQ SCH ×3 (05:53→22:28)
[2017-08-14] MEDS ORDERED: EPOETIN ALFA 10,000 UNITS/ML VIAL IV. SCH (06:00)
[2017-08-14 07:43] LABS: HEMATOCRIT 27.1 % (42-52); MEAN CELL VOLUME 92.2 fL (80-100); MEAN CORPUSCULAR HEMOGLOBIN 30.6 pg (25-34); MEAN CORPUSCULAR HGB CONC 33.2 g/dl (32-36); MEAN PLATELET VOLUME 11.3 fL (7.4-10.4); NUCLEATED RED BLOOD CELL ABS 0.09 K/uL (0-0); PLATELET COUNT 108 K/uL (130-400); RED CELL DISTRIBUTION WIDTH CV 17.7 % (11.5-14.5); RED CELL DISTRIBUTION WIDTH SD 59.2 fL (36.4-46.3); WHITE BLOOD COUNT 17.33 K/uL (4.8-10.8)
[2017-08-14] MEDS: INSULIN HUMAN NPH SC SCH ×2 (08:02→17:06)
[2017-08-14] MEDS: INSULIN ASPART 100 UNITS/ML 3 ML PEN SC SCH ×4 (08:02→21:00)
[2017-08-14] MEDS: NEPHROCAPS PO SCH (08:05)
--- NOTE | 2017-08-14 08:05 | PULMONARY PROGRESS NOTE ---
DATE: 08/13/2017 CHIEF COMPLAINT: The patient actually has no complaints to me, but according to nursing staff yesterday, was particularly tenuous with his oxygenation. When he was not amenable to proceeding with BIPAP with high flow O2, he desaturated significantly. He was not aware of this level of the saturation and at one point, was placed on a 12-liter OxyMask with sats in the 80 percentile range. He has been receiving hemodialysis on a regular basis and has been followed by Dr. Bell. He has end-stage renal disease. He is extremely weak. He denies chronic cough. He seems to tolerate his dialysis, but once again unless he is placed on BIPAP in 70% FiO2, his saturations are not reached to 90 percentile nhan, but following BiPAP therapy, he tends to do better according to the nursing staff from the saturation standpoint. He denies cough or pleuritic pain or for that matter even being aware that he is dyspneic, although he is virtually bedridden. His dialysis has been complicated by a prolonged bleeding from the aVF following treatment according to Dr. Bell's note. He has been treated for pseudomembranous colitis, cellulitis involving the left hand and he also has metastatic renal cell carcinoma and seemingly intolerant to 2 of the 3 treatment course and most recently, was treated with Cabometyx. That course was complicated by perforation of a jejunal diverticulum that required emergent partial colectomy on 07/21/2017 with colonic reanastomosis. His course was also complicated by a Cecilia glabrata pleural and peritoneal infection, requiring 2 weeks of IV . He has required transfusion at times as well. The pulmonary infiltrates mentioned that could represent asymmetric pulmonary edema do not seem to improve with hemodialysis and Dr. Bell recommended possible bronchoscopy or expanding antimicrobial coverage. OBJECTIVE: VITAL SIGNS: Currently, he has vital signs of temperature 36.6, pulse 90 and regular, respiratory rate 20, and blood pressure 162/79. He is 87%-88% saturated using an OxyMask at 11 liters. SKIN: Cellulitic. Hue seems to be fading somewhat in the left hand and arm, but still there is a great deal of erythema. HEENT: Atraumatic and normocephalic. PERRLA. LUNGS: Rales audible at the left base greater than right. CARDIAC: Regular rate and rhythm. I do not appreciate a gallop. He is tachycardic. ABDOMEN: Hypoactive, but soft. EXTREMITIES: Trace pedal edema noted. NEUROLOGIC: Intact. LABORATORY DATA: H&H 8.7 and 27.6, which is stable. White count 14,000. Potassium 5.2. Chest x-ray continues to show diffuse bilateral airspace opacities that do not seem improved to me, now unfortunately starting to appear chronic in nature. CURRENT MEDICATIONS: Include IV daptomycin, prednisone therapy at 20 mg p.o. b.i.d. and aerosolized bronchodilator. Dr. Philippe last saw the patient in the and his recommendations were to restart the daptomycin IV and I felt that the patient had been adequately treated for the pleural and peritoneal infection. OVERALL ASSESSMENT: A 61-year-old white male with complex medical history including metastatic renal cell carcinoma, poorly tolerant to chemotherapy regimen, colonic resection for perforation of jejunal diverticulum, pseudomembranous colitis and now with a persistent and somewhat progressive interstitial process, left greater than right that almost looks like an organized stage III or IV adult respiratory distress type syndrome. The patient has been treated for a fungal empyema and peritoneal infection with close to 2 weeks of IV therapy and is now on IV daptomycin covering for this cellulitis. My opinion is that this patient has a very poor prognosis and would never tolerate fiberoptic bronchoscopy with transbronchial biopsy or even an open lung biopsy in my opinion. Nor do I think we are dealing with a treatable or reversible cause of this patient's chest radiographic picture and limited to virtually absent ventilatory reserve. He is extremely tenuous and remains a full resuscitation designee. I believe at some point probably within a very short period of time, the patient will go into full adult acute hypoxic respiratory failure. We will need to discuss with the hospitalist service, palliative care, oncology, and infectious disease and come with a plan for this patient. I understand he is not being accepted to an LTAC facility and we appear to be in the holding pattern. If infectious disease as per nephrology's suggestion wish to broaden his antibiotic coverage or add additional coverage for fungemia, that needs to be discussed further.
[2017-08-14] MEDS: FUROSEMIDE 40 MG TAB PO SCH (08:06)
[2017-08-14] MEDS: CALCIUM CARBONATE 500 MG CHEWABLE PO SCH ×3 (08:07→21:44)
[2017-08-14] MEDS: METHADONE HCL 10 MG TAB PO SCH ×2 (08:10→21:42)
[2017-08-14] MEDS: POLYETHYLENE (MIRALAX) 17 GM PACK PO SCH (08:15)
[2017-08-14 08:17] LABS: CALCIUM 9.9 mg/dl (8.5-10.1); CREATININE 4.1 mg/dl (0.60-1.40); POTASSIUM 5.8 mmol/L (3.5-5.1)
--- NOTE | 2017-08-14 10:26 | Nephrology Progress Note ---
Nephrology Progress Note Date of Service Aug 14, 2017. Chief Complaint Follow-up for end-stage renal disease on hemodialysis. Roland Causey was seen and examined during dialysis treatment. Has been tolerating dialysis well, tolerating ultrafiltration goal of 4 L. denies any chest pain, leg cramp. Blood pressure has been stable. Review of Systems A complete review of systems was performed. Pertinent positives are noted above. All other systems are negative. Vital Signs Last 8 Hrs Date Time Temp Pulse Resp B/P (MAP) Pulse Ox O2 Delivery O2 Flow Rate FiO2 08/14/17 07:22 72 20 91 Mask 11.0 08/14/17 04:00 Oxymask 12.0 08/14/17 03:47 36.9 92 18 154/74 (100) 100 08/14/17 02:15 94 99 60 08/14/17 02:15 94 20 99 BiPAP/CPAP 60 Last Recorded Weight Weight (Kilograms): 75.300 Physical Exam GENERAL: Middle-aged male, AAA x 3, pleasant, pale, ill-appearing, not in any distress. NECK: Supple, no JVD. RESPIRATORY: Normal breathing efforts, no accessory muscle use, CTA CARDIOVASCULAR: S1, S2 normal, rate rhythm regular. EXTREMITY: trace le edema NEURO: speech fluent. PSYCHIATRY: Normal mood and judgment Family History Cervical cancer Diabetes mellitus Heart disease Hypertension Myocardial infarction Pancreatic cancer Prostate cancer Negative for CKD/ESRD Social History Smokeless Tobacco Use: No Alcohol Use: none Drug Use: none Marital Status: single Housing Status: lives alone Occupation: disabled Single, retired. Formerly worked for [employer]. Never a smoker. Laboratory Results Past 24 Hours 08/14/17 07:26 08/14/17 07:26 Test 08/13/17 11:03 08/13/17 15:59 08/13/17 20:00 08/13/17 23:37 Bedside Glucose 187 mg/dl (70-99) 218 mg/dl (70-99) 171 mg/dl (70-99) 156 mg/dl (70-99) Test 08/14/17 06:28 08/14/17 07:26 Bedside Glucose 143 mg/dl (70-99) Red Blood Count 2.94 M/uL (4.7-6.1) Mean Corpuscular Volume 92.2 fL (80-100) Mean Corpuscular Hemoglobin 30.6 pg (25-34) Mean Corpuscular Hemoglobin Concent 33.2 g/dl (32-36) RDW Standard Deviation 59.2 fL (36.4-46.3) RDW Coefficient of Variation 17.7 % (11.5-14.5) Mean Platelet Volume 11.3 fL (7.4-10.4) Nucleated RBC Absolute Count (auto) 0.09 K/uL (0-0) Nucleated Red Blood Cells % 0.5 % Anion Gap 11.0 mmol/L (3-11) Est Creatinine Clear Calc Drug Dose 19.0 ml/min Estimated GFR () 16.8 Estimated GFR (Non- 14.5 BUN/Creatinine Ratio 25.2 (10-20) Calcium Level 9.9 mg/dl (8.5-10.1) Allergies Coded Allergies: Iodinated Diagnostic Agents (Verified Allergy, Unknown, oil based, severe headaches, 06/20/17) EVENT OCCURED IN 1971, PT STATES HE HAS HAD 3 DIFFERENT WATER BASED IVP DYES WITH NO ISSUE Medications Current Inpatient Medications Medications (Trade) Dose Ordered Sig/Edward Route Start Time Stop Time Status Last Admin Dose Admin Hydralazine HCl (HydrALAZINE INJ) 5 mg Q4 PRN IV. 07/21/17 17:15 08/20/17 17:14 Future Hold 07/25/17 23:45 5 MG Hydralazine HCl (HydrALAZINE INJ) 5 mg TID IV. 07/21/17 21:00 08/20/17 20:59 Future Hold 07/30/17 08:33 5 MG Miscellaneous Information (Consult Glycemic Management Pharmacy) 1 ea UD PRN N/A 07/23/17 13:14 08/22/17 13:13 Insulin Aspart (novoLOG ASPART) SLIDING SCALE G... ACHS SC 07/27/17 11:30 08/26/17 11:29 08/14/17 08:02 4 UNITS Ipratropium [place] (Atrovent 0.02% 0.5MG/2.5ML Neb) 0.5 mg Q6R INH 07/29/17 09:00 08/28/17 08:59 08/14/17 07:21 0.5 MG Levalbuterol (Xopenex 0.63 Mg/ 3 Ml Neb) 0.63 mg Q6R INH 07/29/17 09:00 08/28/17 08:59 08/14/17 07:21 0.63 MG Metoprolol Tartrate (Lopressor Tab) 100 mg BID PO 07/29/17 21:00 08/28/17 20:59 08/13/17 21:35 100 MG Amlodipine Besylate (Norvasc Tab) 10 mg QAM PO 07/30/17 09:00 08/29/17 08:59 08/13/17 08:14 10 MG Diphenhydramine HCl (Benadryl Inj) 50 mg 4XDQ4H PRN IV 07/30/17 13:30 08/29/17 13:29 Heparin Sodium (Porcine) (Heparin Sq 5000 Unit/0.5ml) 5,000 unit Q8 SQ 07/30/17 22:00 08/29/17 21:59 08/14/17 05:53 5,000 UNIT Prednisone (PredniSONE TAB) 20 mg BIDM PO 07/31/17 07:30 08/30/17 07:29 08/14/17 08:05 20 MG Furosemide (Lasix Tab) 40 mg QAM PO 08/01/17 09:00 08/31/17 08:59 08/14/17 08:06 40 MG Calcium Carbonate (Tums Chew Tab) 500 mg TID PO 08/02/17 09:00 09/01/17 08:59 08/14/17 08:07 500 MG Enteral Nutritional Formula (Boost Glucose Control) 1 can BID@1000,2100 PO 08/01/17 21:00 08/31/17 20:59 08/13/17 21:27 1 CAN Vitamin B Complex/ Vit C/Folic Acid (Nephrocaps) 1 cap QAM PO 08/07/17 09:00 09/06/17 08:59 08/14/17 08:05 1 CAP Daptomycin 350 mg/ Syringe 7 ml @ 3.5 mls/min Q48H IV 08/07/17 13:15 08/17/17 13:14 08/13/17 20:02 3.5 MLS/MIN Fentanyl (Duragesic Patch) 25 mcg Q72H TD 08/07/17 18:00 08/21/17 17:59 08/13/17 17:46 25 MCG Miscellaneous (Fentanyl Patch Remove & Waste) 1 ea Q72H N/A 08/10/17 17:59 09/09/17 17:58 08/13/17 17:47 1 EA Miscellaneous Information (Check Fentanyl Patch Placement) 1 ea QS N/A 08/08/17 00:00 09/07/17 00:00 08/14/17 08:05 1 EA Polyethylene (Miralax Powder Packet) 17 gm DAILY PRN PO 08/09/17 07:00 09/08/17 06:59 Methadone HCl (Dolophine Tab) 20 mg BID PO 08/08/17 23:00 08/22/17 22:59 08/14/17 08:10 20 MG Ergocalciferol (Vitamin D Cap) 50,000 interunit We@0900 PO 08/09/17 10:30 09/08/17 10:29 08/09/17 14:07 50,000 INTERUNIT Polyethylene (Miralax Powder Packet) 17 gm DAILY PO 08/09/17 13:00 09/08/17 12:59 08/14/17 08:15 17 GM Heparin Sodium (Porcine) (Heparin 100 Unit/ml 5ml Flush) 5 ml PRN PRN IV 08/09/17 13:00 09/08/17 12:59 Insulin Human NPH (novoLIN-N NPH) 12 units QDB SC 08/11/17 07:30 09/10/17 07:29 08/14/17 08:02 12 UNITS Oxycodone HCl (Oxycontin Tab) 10 mg TID PRN PO 08/11/17 11:30 08/25/17 11:29 08/13/17 17:26 10 MG Simvastatin (Zocor Tab) 20 mg PM PO 08/11/17 21:00 09/10/17 20:59 08/13/17 21:35 20 MG Tamsulosin HCl (Flomax Cap) 0.4 mg HS PO 08/11/17 21:00 09/10/17 20:59 08/13/17 21:35 0.4 MG Insulin Human NPH (novoLIN-N NPH) 6 units QDD SC 08/13/17 16:45 09/12/17 16:44 08/13/17 17:43 6 UNITS Epoetin Mohsen (Procrit Inj) 10,000 units TODAY@0600 IV. 08/14/17 06:00 08/14/17 18:00 Heparin Sodium (Porcine) (No Heparin In Dialysis) 1 ea TODAY@0600 N/A 08/14/17 06:00 08/14/17 18:00 Impression (1) Cellulitis of left hand (2) ESRD (end stage renal disease) on dialysis (3) Renal cell carcinoma (4) Anemia (5) Diabetes type 2, controlled Mr. Christy had metastatic RCCA. He underwent left nephrectomy 2015. He did not tolerate Sutent due to high grade proteinuria. Opdivo caused arthralgia, colitis and possible pneumonitis. He was most recently treated w/ Cabometyx. 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 Colonic reanastamosis was performed at the time of surgery. The patient has a complex medical history including persistent soft tissue infection of the left hand, C. Difficile colitis, metastatic RCCA, interstitial lung disease requiring steroid therapy, dc glabrata infection of pleural and peritoneal fluid Mr. Christy's dialysis has been complicated by prolonged bleeding from the AVF following treatment. 07/23 doppler study revealed a high grade venous outflow stenosis. He required fistulagram and coil embolization 07/25/16. Recommendations --getting dialysis as regular schedule, tolerating ultrafiltration, aim for 4 L UF. -- Pulmonary infiltrates have not improved despite aggressive UF with daily HD. Patient has mild leukocytosis and recently cultured + for dc in the pleural and peritoneal fluid. Pulmonology and ID was consulted for further evaluation. Question whether patient may benefit from bronchoscopy or expanding antimicrobial coverage to include yeast / fungus. --continue current antihypertensive medications --avoid IV fluids, continue on renal diet, dose medications for GFR less than 10 Will follow
[2017-08-14] MEDS: OXYCODONE HCL 10 MG TABCR (OXYCONTIN) PO PRN ×2 (11:14→17:02)
--- NOTE | 2017-08-14 11:58 | Hospitalist Progress Note ---
Hospitalist Progress Note Date of Service Aug 14, 2017. (Ledy Bhakta ., PA-C) Subjective Pt evaluation today including: conversation w/ patient, physical exam, lab review, review of studies, conversation w/ product support consultant (ID, palliative care ), review of inpatient medication list Patient sitting upright in bed, receiving dialysis. Eating and drinking OK. Breathing feels at baseline. +BM on Monday. Pain is well controlled. Patient denies any fever, chills, sweats, lightheadedness, dizziness, vision changes, CP, palpitations, edema, SOB, wheezing, cough, abdominal pain, nausea, vomiting, diarrhea, urinary symptoms, melena, numbness/tingling, weakness, muscle/joint pain, anxiety/depression, active bleeding, or new skin discoloration/changes. Had a long discussion w/ patient about future goals. As of right now, insurance denied LTAC and not stable enough to be discharged to home or [facility]. Patient states, "my goal is to get home." Discussed possibility of getting home , but may only be possible if hospice route is chosen. States he wants all treatment/full code to get home. Questioned whether more IV antibiotic/ antifungal can be done to help state- discussed that pulmonary does not think he can tolerate bronch or improve CXR findings and believes the possibility of acute respiratory distress is in near future, and Dr. Philippe does not think further antibiotic/antifungals are warranted. Discussed w/ Dr. Leal, completed [id number] on Monday, waiting to see if insurance approves LTAC. If not, will further discuss w/ patient. (Ledy Bhakta ., PA-C) Medications Current Inpatient Medications Medications (Trade) Dose Ordered Sig/Edward Route Start Time Stop Time Status Last Admin Dose Admin Hydralazine HCl (HydrALAZINE INJ) 5 mg Q4 PRN IV. 07/21/17 17:15 08/20/17 17:14 Future Hold 07/25/17 23:45 5 MG Hydralazine HCl (HydrALAZINE INJ) 5 mg TID IV. 07/21/17 21:00 08/20/17 20:59 Future Hold 07/30/17 08:33 5 MG Miscellaneous Information (Consult Glycemic Management Pharmacy) 1 ea UD PRN N/A 07/23/17 13:14 08/22/17 13:13 Insulin Aspart (novoLOG ASPART) SLIDING SCALE G... ACHS SC 07/27/17 11:30 08/26/17 11:29 08/14/17 08:02 4 UNITS Ipratropium [place] (Atrovent 0.02% 0.5MG/2.5ML Neb) 0.5 mg Q6R INH 07/29/17 09:00 08/28/17 08:59 08/14/17 07:21 0.5 MG Levalbuterol (Xopenex 0.63 Mg/ 3 Ml Neb) 0.63 mg Q6R INH 07/29/17 09:00 08/28/17 08:59 08/14/17 07:21 0.63 MG Metoprolol Tartrate (Lopressor Tab) 100 mg BID PO 07/29/17 21:00 08/28/17 20:59 08/13/17 21:35 100 MG Amlodipine Besylate (Norvasc Tab) 10 mg QAM PO 07/30/17 09:00 08/29/17 08:59 08/13/17 08:14 10 MG Diphenhydramine HCl (Benadryl Inj) 50 mg 4XDQ4H PRN IV 07/30/17 13:30 08/29/17 13:29 Heparin Sodium (Porcine) (Heparin Sq 5000 Unit/0.5ml) 5,000 unit Q8 SQ 07/30/17 22:00 08/29/17 21:59 08/14/17 05:53 5,000 UNIT Prednisone (PredniSONE TAB) 20 mg BIDM PO 07/31/17 07:30 08/30/17 07:29 08/14/17 08:05 20 MG Furosemide (Lasix Tab) 40 mg QAM PO 08/01/17 09:00 08/31/17 08:59 08/14/17 08:06 40 MG Calcium Carbonate (Tums Chew Tab) 500 mg TID PO 08/02/17 09:00 09/01/17 08:59 08/14/17 08:07 500 MG Enteral Nutritional Formula (Boost Glucose Control) 1 can BID@1000,2100 PO 08/01/17 21:00 08/31/17 20:59 08/13/17 21:27 1 CAN Vitamin B Complex/ Vit C/Folic Acid (Nephrocaps) 1 cap QAM PO 08/07/17 09:00 09/06/17 08:59 08/14/17 08:05 1 CAP Daptomycin 350 mg/ Syringe 7 ml @ 3.5 mls/min Q48H IV 08/07/17 13:15 08/17/17 13:14 08/13/17 20:02 3.5 MLS/MIN Fentanyl (Duragesic Patch) 25 mcg Q72H TD 08/07/17 18:00 08/21/17 17:59 08/13/17 17:46 25 MCG Miscellaneous (Fentanyl Patch Remove & Waste) 1 ea Q72H N/A 08/10/17 17:59 09/09/17 17:58 08/13/17 17:47 1 EA Miscellaneous Information (Check Fentanyl Patch Placement) 1 ea QS N/A 08/08/17 00:00 09/07/17 00:00 08/14/17 08:05 1 EA Polyethylene (Miralax Powder Packet) 17 gm DAILY PRN PO 08/09/17 07:00 09/08/17 06:59 Methadone HCl (Dolophine Tab) 20 mg BID PO 08/08/17 23:00 08/22/17 22:59 08/14/17 08:10 20 MG Ergocalciferol (Vitamin D Cap) 50,000 interunit We@0900 PO 08/09/17 10:30 09/08/17 10:29 08/09/17 14:07 50,000 INTERUNIT Polyethylene (Miralax Powder Packet) 17 gm DAILY PO 08/09/17 13:00 09/08/17 12:59 08/14/17 08:15 17 GM Heparin Sodium (Porcine) (Heparin 100 Unit/ml 5ml Flush) 5 ml PRN PRN IV 08/09/17 13:00 09/08/17 12:59 Insulin Human NPH (novoLIN-N NPH) 12 units QDB SC 08/11/17 07:30 09/10/17 07:29 08/14/17 08:02 12 UNITS Oxycodone HCl (Oxycontin Tab) 10 mg TID PRN PO 08/11/17 11:30 08/25/17 11:29 08/14/17 11:14 10 MG Simvastatin (Zocor Tab) 20 mg PM PO 08/11/17 21:00 09/10/17 20:59 08/13/17 21:35 20 MG Tamsulosin HCl (Flomax Cap) 0.4 mg HS PO 08/11/17 21:00 09/10/17 20:59 08/13/17 21:35 0.4 MG Insulin Human NPH (novoLIN-N NPH) 6 units QDD SC 08/13/17 16:45 09/12/17 16:44 08/13/17 17:43 6 UNITS Epoetin Mohsen (Procrit Inj) 10,000 units TODAY@0600 IV. 08/14/17 06:00 08/14/17 18:00 Heparin Sodium (Porcine) (No Heparin In Dialysis) 1 ea TODAY@0600 N/A 08/14/17 06:00 08/14/17 18:00 (Ledy Bhakta, SARITA) Objective Vital Signs Date Time Temp Pulse Resp B/P (MAP) Pulse Ox O2 Delivery O2 Flow Rate FiO2 08/14/17 11:30 104 102/55 08/14/17 11:15 103 112/61 08/14/17 11:05 102 128/102 08/14/17 11:03 36.9 86 20 95/48 (64) 90 08/14/17 11:00 108 184/53 08/14/17 10:45 108 95/42 08/14/17 10:30 85 95/48 08/14/17 10:15 115 106/43 08/14/17 10:00 100 114/57 08/14/17 09:45 100 116/62 08/14/17 09:30 114 147/82 08/14/17 09:15 90 152/78 08/14/17 09:07 88 156/76 08/14/17 08:55 36.9 96 158/84 (108) 08/14/17 08:10 91 Oxymask 12.0 Mask 08/14/17 07:22 72 20 91 Mask 11.0 08/14/17 04:00 Oxymask 12.0 08/14/17 03:47 36.9 92 18 154/74 (100) 100 08/14/17 02:15 94 99 60 08/14/17 02:15 94 20 99 BiPAP/CPAP 60 08/14/17 00:23 37.0 97 18 167/78 (107) 95 08/14/17 00:00 Oxymask 12.0 08/13/17 23:45 97 97 60 08/13/17 20:00 Oxymask 12.0 08/13/17 19:54 37.2 99 18 153/73 (99) 91 Oxymask 11.0 08/13/17 19:18 97 20 91 Mask 11.0 08/13/17 16:01 36.7 92 18 159/75 (103) 90 Oxymask 11.0 08/13/17 16:00 Oxymask 12.0 60 BiPAP 08/13/17 14:59 88 20 92 Mask 11.0 08/13/17 12:15 36.8 91 20 142/69 (93) 89 Oxymask 11.0 08/13/17 12:00 BiPAP 60 (Ledy Bhakta, PA-C) Physical Exam General Appearance: no apparent distress, + pertinent finding (OxyMask on; chronically-ill appearing ) Eyes: PERRL ENT: hearing grossly normal Neck: supple Respiratory/Chest: no respiratory distress, no accessory muscle use, + decreased breath sounds Cardiovascular: regular rate, rhythm Abdomen: normal bowel sounds, non tender, soft, + pertinent finding (incision site bandage C/D/I) Extremities: no calf tenderness, + swelling (+2 pitting edema to bilateral lower extremities ), + pertinent finding (R hand w/out erythema, +swelling, but appears to be improved, no scabbed lesions w/ no surrounding erythema or drainage ) Neurologic/Psychiatric: alert, normal mood/affect, oriented x 3, + pertinent finding (fatigued ) Skin: normal color, warm/dry, no rash (Ledy Bhakta ., PA-C) Laboratory Results Last 24 Hours Test 08/13/17 15:59 08/13/17 20:00 08/13/17 23:37 08/14/17 06:28 Bedside Glucose 218 mg/dl 171 mg/dl 156 mg/dl 143 mg/dl Test 08/14/17 07:26 White Blood Count 17.33 K/uL Red Blood Count 2.94 M/uL Hemoglobin 9.0 g/dL Hematocrit 27.1 % Mean Corpuscular Volume 92.2 fL Mean Corpuscular Hemoglobin 30.6 pg Mean Corpuscular Hemoglobin Concent 33.2 g/dl RDW Standard Deviation 59.2 fL RDW Coefficient of Variation 17.7 % Platelet Count 108 K/uL Mean Platelet Volume 11.3 fL Nucleated RBC Absolute Count (auto) 0.09 K/uL Nucleated Red Blood Cells % 0.5 % Sodium Level 135 mmol/L Potassium Level 5.8 mmol/L Chloride Level 101 mmol/L Carbon Dioxide Level 23 mmol/L Anion Gap 11.0 mmol/L Blood Urea Nitrogen 103 mg/dl Creatinine 4.10 mg/dl Est Creatinine Clear Calc Drug Dose 19.0 ml/min Estimated GFR () 16.8 Estimated GFR (Non- 14.5 BUN/Creatinine Ratio 25.2 Random Glucose 109 mg/dl Calcium Level 9.9 mg/dl (Ledy Bhakta, SARITA) Assessment and Plan Mr. Christy is a 61 y/o M with PMH of ESRD on HD, RCC, DMII. Admitted for L hand cellulitis having failed outpatient management. Abdominal pain, found to have incidental rectus sheath hematoma, C.diff positive colitis and subsequent bowel perforation on 07/21, now s/p colectomy, anemia, and bilateral pneumonia on imaging. C. diff colitis, perforated jejunal bowel (suspected to result from chemo regimen) s/p colectomy, rectus sheath hematoma: - Monitoring on tele- no acute events - Surgical management as per surgery, POD #21- TPN completed on 07/29/17- currently on mechanical soft diet - Underlying severe protein malnutrition, albumin 1.3- boost BID - C.Diff + 07/12/17: Completed 9 days of PO Vancomycin on 07/21 - C. 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 on 07/23-- vascular surgery consulted- s/p AVR repair on 07/25/17 - Hypocalcemia w/ vitamin D level of 17.4: Ergocalciferol 50,000 q7d indefinitely + daily D3 1999 when patient resumes oral intake- recheck levels in 12 weeks - Calcitriol and CaCO3 Left hand cellulitis, ?reflex sympathetic dystrophy: - Initial MRI did not determine any osteomyelitis - ID consulted: -- Treated initially with Ertapenem/Daptomycin, then transitioned to Cefepime - treated 07/22- 07/30 -- Daptomycin started on 08/07 per ID recommendations- ID following Acute hypoxia respiratory failure, ?secondary to pulmonary edema vs cryptogenic organizing pneumonia/drug related pneumonitis: - Continue O2 supplementation to maintain SaO2 >92%, wean as tolerated - Started on heparin drip on 07/26 for presumed PE- CTA 07/30/17 negative for PE, thus heparin drip stopped - Large R pleural effusion s/p thoracentesis completed 07/30/17- pleural pathology w/ no malignancy, pleural cultures growing yeast- completed IV Caspofungin - IV Solu-Medrol- transitioned to Prednisone 20 mg BID on 07/31 for prolonged taper - DuoNebs QID and PRN - Pulmonary following -- Encouraged incentive spirometer, OOB in chair throughout day, working w/ PT -- Thinks worsening acute respiratory distress in near future, does not think CXR findings treatable/reversible - Cloth Examiner consulted on 08/08 for ?ARDS- does not think needs ICU at this time - transfer to ICU if needed DMII: Pharmacy consulted for glycemic management Acute anemia- transfused a total of 8 u PRBCs: - Nephrology following- Epogen with dialysis - H&H- hgb 9.0 on 08/14 - Continue to follow H&H and transfuse PRN for hgb < 7 or symptomatic - Iron panel reviewed- nephrology holding on IV iron at this time HTN, HLD: - Furosemide 40 mg PO daily, Amlodipine 10 mg daily, Metoprolol 100 mg PO BID, Lisinopril 40 mg daily, Simvastatin 20 mg HS - Hydralazine 100 mg TID held- BPs well controlled at this time - Monitor I&Os and daily weights BPH: Tamsulosin 0.4 mg PO daily DVT Prophylaxis: Heparin SQ TID Code Status: LEVEL I, FULL Dispo: Discharge uncertain- PT/OT and CM following (Ledy Bhakta ., SARITA) I personally interviewed and examined the patient. I agree with history of present illness and physical exam mentioned above, I also performed my own history taking and examination. Past medical history and review of system has been obtained by myself I reviewed all pertinent labs and studies Reviewed current medications I discussed and formulated of the assessment and plan mentioned above. Please refer to the Summary mentioned below. General Appearance: Moderate acute distress Eyes: normal Sclerae, extraocular muscle intact ENT: hearing grossly normal Neck: supple Respiratory/Chest: Decreased air entry bilateral , mild respiratory distress, no accessory muscle use Cardiovascular: regular rate, rhythm, no murmur Abdomen: non tender, soft, no masses Extremities: no edema Neurologic/Psychiatric: Awake alert oriented times place and person moves all extremities sensation intact cranial nerves II-12 appear to be intact Skin: normal color, warm/dry, no rash 61-year-old unfortunate man with renal cancer status post excision currently on dialysis. Presented with abdominal pain and found to have incidental rectus sheath hematoma, patient was treated for multiple infections and was found to have C. difficile colitis . Currently her suspected left lower extremity cellulitis . Was treated for bilateral pneumonia . Without improvement in his pulmonary status Assessment C. difficile with perforated jejunal bowel Acute hypoxic respiratory failure Cecilia glabrata infection pleural fluid and ascitic fluid, treated Left hand cellulitis versus reflex sympathetic dystrophy Bilateral pneumonia, treated Metastatic renal cell carcinoma status post left nephrectomy currently on dialysis DMII: Pharmacy consulted for glycemic management Acute anemia- transfused a total of 8 u PRBCs, likely of chronic diseases HTN, HLD: plan: Agree with plan mentioned above by Miss Villafana. We'll add a CAT scan chest without contrast to differentiate pneumonia from CHF Meanwhile continue same management CT scan showed pneumonia then will contact to change daptomycin as this not effective against Ananya Walker MD, [facility] hospitalist group (Ananya Ruiz MD)
[2017-08-14] MEDS: AMLODIPINE BESYLATE 5 MG TAB PO SCH (14:01)
[2017-08-14] MEDS: METOPROLOL TARTRATE 100 MG TAB PO SCH ×2 (14:01→21:45)
[2017-08-14] MEDS: BOOST GLUCOSE CONTROL PO SCH ×2 (14:02→21:00)
[2017-08-14] MEDS ORDERED: NURSING VERBAL MED ORDER ONE (16:15)
[2017-08-14] MEDS ORDERED: ETHYL CHLORIDE AER SPR 100 ML CAN EXT PRN (17:00)
--- NOTE | 2017-08-14 17:17 | Pulmonology Progress Note ---
Pulmonary Progress Note Date of Service Aug 14, 2017. Attending Dr. Askew Subjective The patient remains short of breath, hypoxic, although he is speaking in full sentences however his respiratory status has been very tenuous with minimal movement. His oxygen requirement approximately 12 L. His SATURATION registered in the low 80s. Cough with no sputum production. No hemoptysis was reported. The rest of his review of system showed anasarca. Objective Vital Signs - as noted below Laboratory Data - as noted below Physical Exam: General - NAD Eyes - No icterus, gaze conjugate ENT - Mucosa moist, no lesions or candidiasis. Oxymask in place Neck - Supple, No JVD Lungs - The lungs continue to be decreased but overall effort is improved Heart - Regular, rate controlled Abdomen - Soft, NT, ND, BS present Extremities - some edema of right upper arm but good radial pulses in place. Bilateral edema to the feet and lower legs, pedal pulses intact. Neuro - A&OX3 08/14/2017, his exam revealed vital signs are borderline including tachycardia of 120 normal sinus rhythm, he does have A saturation registering between 77-88% , significant edema in the periphery, abdomen postop, heart examination S1-S2 with tachycardic. Neurologically he's intact. Assessment & Plan ACUTE HYPOXIC RESPIRATORY FAILURE * Thoracentesis on the right 07/30/17 * Bed put in chair position but should continue to emphasize out of bed to bedside chair as tolerated * Physical therapy required to at least sit patient on the edge of bed and dangle legs. Patient motivated and doing active range of motion exercises in bed * Patient may with cellulitis of the right hand and arm. Cultures from the operating room grew out Cecilia glabrata - caspofungin was added by ID * Continue incentive spirometry, flutter valve, and BiPAP for oxygenation and to combat atelectasis PLEURAL EFFUSION * Status post thoracentesis 07/30/[address] Clark * Pathology and microbiology with yeast but no malignant cells * No redevelopment of effusion on chest x-ray 08/02/17 POSSIBLE CRYPTOGENIC ORGANIZING PNEUMONIA * Steroids were started 07/06/17 * Continue prolonged taper * ID treating yeast in pleural fluid with caspofungin. We will defer duration to ID QUESTION OF PULMONARY EMBOLI * CTA with no evidence of pulmonary embolus * Lower extremity duplex was negative for DVT * Continue DVT prophylaxis with heparin 5000 units subcutaneous every 8 hours DVT PROPHYLAXIS * Continue heparin 5000 units subcutaneously every eight hours * Need to encourage out of bed to chair * Need to encourage physical therapy Thank you for including us in the care of this patient. Please refer to Dr. Vines's addendum for further recommendations. 08/14/2017, I have evaluated the patient undergarment of his condition. The patient is diagnosed with renal cell carcinoma with metastasis. The patient also had a history of COPD in the past. Pleural effusion was removed. I have performed an ultrasound of the bedside as well. The following is my assessment: #1 the patient remains in ARDS by definition. The patient PF ratio was less than 150. #2 anasarca due to hypoalbuminemia and renal failure. #3 end-stage renal disease on dialysis. #4 I have performed bedside ultrasound which I do not find significant pleural effusion on the right side note on the left side. He does have minimal ascites as well. He due to anasarca was difficult study. 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 I will treat the patient empirically with full dose of steroids using Methylprednisolone 1 mg /kg per dose every 6 hours. #2 would continue with the current antibiotics. #3 although the patient does have Cecilia glabrata, adding steroids to the current dose that he was on for the past several days would not alter his fungal infection. #[address] with the patient undergarment of his goal of care , the patient is undecided, I encouraged the patient to make a decision about DO NOT RESUSCITATE, in my opinion, it would be fruitless to perform CPR on this patient should he go to cardiac arrest. We'll follow. Data Medications: Current Inpatient Medications Medications (Trade) Dose Ordered Sig/Edward Route Start Time Stop Time Status Last Admin Dose Admin Hydralazine HCl (HydrALAZINE INJ) 5 mg Q4 PRN IV. 07/21/17 17:15 08/20/17 17:14 Future Hold 07/25/17 23:45 5 MG Hydralazine HCl (HydrALAZINE INJ) 5 mg TID IV. 07/21/17 21:00 08/20/17 20:59 Future Hold 07/30/17 08:33 5 MG Miscellaneous Information (Consult Glycemic Management Pharmacy) 1 ea UD PRN N/A 07/23/17 13:14 08/22/17 13:13 Insulin Aspart (novoLOG ASPART) SLIDING SCALE G... ACHS SC 07/27/17 11:30 08/26/17 11:29 08/14/17 08:02 4 UNITS Ipratropium [place] (Atrovent 0.02% 0.5MG/2.5ML Neb) 0.5 mg Q6R INH 07/29/17 09:00 08/28/17 08:59 08/14/17 16:00 0.5 MG Levalbuterol (Xopenex 0.63 Mg/ 3 Ml Neb) 0.63 mg Q6R INH 07/29/17 09:00 08/28/17 08:59 08/14/17 16:00 0.63 MG Metoprolol Tartrate (Lopressor Tab) 100 mg BID PO 07/29/17 21:00 08/28/17 20:59 08/14/17 14:01 100 MG Amlodipine Besylate (Norvasc Tab) 10 mg QAM PO 07/30/17 09:00 08/29/17 08:59 08/14/17 14:01 10 MG Diphenhydramine HCl (Benadryl Inj) 50 mg 4XDQ4H PRN IV 07/30/17 13:30 08/29/17 13:29 Heparin Sodium (Porcine) (Heparin Sq 5000 Unit/0.5ml) 5,000 unit Q8 SQ 07/30/17 22:00 08/29/17 21:59 08/14/17 14:08 5,000 UNIT Prednisone (PredniSONE TAB) 20 mg BIDM PO 07/31/17 07:30 08/30/17 07:29 08/14/17 17:03 20 MG Furosemide (Lasix Tab) 40 mg QAM PO 08/01/17 09:00 08/31/17 08:59 08/14/17 08:06 40 MG Calcium Carbonate (Tums Chew Tab) 500 mg TID PO 08/02/17 09:00 09/01/17 08:59 08/14/17 14:00 500 MG Enteral Nutritional Formula (Boost Glucose Control) 1 can BID@1000,2100 PO 08/01/17 21:00 08/31/17 20:59 08/14/17 14:02 1 CAN Vitamin B Complex/ Vit C/Folic Acid (Nephrocaps) 1 cap QAM PO 08/07/17 09:00 09/06/17 08:59 08/14/17 08:05 1 CAP Daptomycin 350 mg/ Syringe 7 ml @ 3.5 mls/min Q48H IV 08/07/17 13:15 08/17/17 13:14 08/13/17 20:02 3.5 MLS/MIN Fentanyl (Duragesic Patch) 25 mcg Q72H TD 08/07/17 18:00 08/21/17 17:59 08/13/17 17:46 25 MCG Miscellaneous (Fentanyl Patch Remove & Waste) 1 ea Q72H N/A 08/10/17 17:59 09/09/17 17:58 08/13/17 17:47 1 EA Miscellaneous Information (Check Fentanyl Patch Placement) 1 ea QS N/A 08/08/17 00:00 09/07/17 00:00 08/14/17 16:50 1 EA Polyethylene (Miralax Powder Packet) 17 gm DAILY PRN PO 08/09/17 07:00 09/08/17 06:59 Methadone HCl (Dolophine Tab) 20 mg BID PO 08/08/17 23:00 08/22/17 22:59 08/14/17 08:10 20 MG Ergocalciferol (Vitamin D Cap) 50,000 interunit We@0900 PO 08/09/17 10:30 09/08/17 10:29 08/09/17 14:07 50,000 INTERUNIT Polyethylene (Miralax Powder Packet) 17 gm DAILY PO 08/09/17 13:00 09/08/17 12:59 08/14/17 08:15 17 GM Heparin Sodium (Porcine) (Heparin 100 Unit/ml 5ml Flush) 5 ml PRN PRN IV 08/09/17 13:00 09/08/17 12:59 Insulin Human NPH (novoLIN-N NPH) 12 units QDB SC 08/11/17 07:30 09/10/17 07:29 08/14/17 08:02 12 UNITS Oxycodone HCl (Oxycontin Tab) 10 mg TID PRN PO 08/11/17 11:30 08/25/17 11:29 08/14/17 17:02 10 MG Simvastatin (Zocor Tab) 20 mg PM PO 08/11/17 21:00 09/10/17 20:59 08/13/17 21:35 20 MG Tamsulosin HCl (Flomax Cap) 0.4 mg HS PO 08/11/17 21:00 09/10/17 20:59 08/13/17 21:35 0.4 MG Insulin Human NPH (novoLIN-N NPH) 6 units QDD SC 08/13/17 16:45 09/12/17 16:44 08/14/17 17:06 6 UNITS Epoetin Mohsen (Procrit Inj) 10,000 units TODAY@0600 IV. 08/14/17 06:00 08/14/17 18:00 08/14/17 12:51 10,000 UNITS Heparin Sodium (Porcine) (No Heparin In Dialysis) 1 ea TODAY@0600 N/A 08/14/17 06:00 08/14/17 18:00 Ethyl Chloride (Ethyl Chloride Aerosol) 1 ml PRN PRN EXT 08/14/17 17:00 09/13/17 16:59 I & O: 24-Hour Column 08/15/17 08:00 Intake Total 360 ml Output Total 1900 ml Balance -1540 ml Vital Signs: Date Time Temp Pulse Resp B/P (MAP) Pulse Ox O2 Delivery O2 Flow Rate FiO2 08/14/17 16:20 Oxymask 12.0 Mask 08/14/17 16:03 36.9 114 24 151/77 (101) 87 Oxymask 15.0 08/14/17 16:00 110 20 92 Mask 15.0 08/14/17 13:30 36.9 98 139/57 (84) 08/14/17 13:00 102 108/64 08/14/17 12:45 112 129/61 08/14/17 12:30 104 113/66 08/14/17 12:15 97 97/48 08/14/17 12:00 105 108/60 08/14/17 12:00 Oxymask 12.0 Mask 08/14/17 11:45 100 101/53 08/14/17 11:30 104 102/55 08/14/17 11:15 103 112/61 08/14/17 11:05 102 128/102 08/14/17 11:03 36.9 86 20 95/48 (64) 90 08/14/17 11:00 108 184/53 08/14/17 10:45 108 95/42 08/14/17 10:30 85 95/48 08/14/17 10:15 115 106/43 08/14/17 10:00 100 114/57 08/14/17 09:45 100 116/62 08/14/17 09:30 114 147/82 08/14/17 09:15 90 152/78 08/14/17 09:07 88 156/76 08/14/17 08:55 36.9 96 158/84 (108) 08/14/17 08:10 91 Oxymask 12.0 Mask 08/14/17 07:22 72 20 91 Mask 11.0 08/14/17 04:00 Oxymask 12.0 08/14/17 03:47 36.9 92 18 154/74 (100) 100 08/14/17 02:15 94 99 60 08/14/17 02:15 94 20 99 BiPAP/CPAP 60 08/14/17 00:23 37.0 97 18 167/78 (107) 95 08/14/17 00:00 Oxymask 12.0 08/13/17 23:45 97 97 60 08/13/17 20:00 Oxymask 12.0 08/13/17 19:54 37.2 99 18 153/73 (99) 91 Oxymask 11.0 08/13/17 19:18 97 20 91 Mask 11.0 Laboratory Results: Last 24 Hours Test 08/13/17 20:00 08/13/17 23:37 08/14/17 06:28 08/14/17 07:26 Bedside Glucose 171 mg/dl 156 mg/dl 143 mg/dl White Blood Count 17.33 K/uL Red Blood Count 2.94 M/uL Hemoglobin 9.0 g/dL Hematocrit 27.1 % Mean Corpuscular Volume 92.2 fL Mean Corpuscular Hemoglobin 30.6 pg Mean Corpuscular Hemoglobin Concent 33.2 g/dl RDW Standard Deviation 59.2 fL RDW Coefficient of Variation 17.7 % Platelet Count 108 K/uL Mean Platelet Volume 11.3 fL Nucleated RBC Absolute Count (auto) 0.09 K/uL Nucleated Red Blood Cells % 0.5 % Sodium Level 135 mmol/L Potassium Level 5.8 mmol/L Chloride Level 101 mmol/L Carbon Dioxide Level 23 mmol/L Anion Gap 11.0 mmol/L Blood Urea Nitrogen 103 mg/dl Creatinine 4.10 mg/dl Est Creatinine Clear Calc Drug Dose 19.0 ml/min Estimated GFR () 16.8 Estimated GFR (Non- 14.5 BUN/Creatinine Ratio 25.2 Random Glucose 109 mg/dl Calcium Level 9.9 mg/dl Test 08/14/17 11:37 08/14/17 16:31 Bedside Glucose 88 mg/dl 93 mg/dl
[2017-08-14] MEDS: METHYLPREDNISOLONE IV 60 MG in SYRINGE 0 ML IV SCH (19:11)
--- NOTE | 2017-08-14 20:55 | DIAGNOSTIC IMAGING REPORT ---
(CHEST) THORAX WITHOUT CT DOSE: 352.46 mGy.cm HISTORY: worsening SOB TECHNIQUE: Multiaxial CT images of the chest were performed without contrast. A dose lowering technique was utilized adhering to the principles of ALARA. COMPARISON: 07/30/2017 FINDINGS: Considerable decrease in volume of right pleural effusion. Minimal residual pleural fluid at both lung bases at the posterior calcified angle. Somewhat progressive bilateral parenchymal infiltrative change bilaterally versus pulmonary edema. Pulmonary edema is perhaps slightly more likely amount of radiographic basis. Central catheter remains in superior vena cava. IMPRESSION: 1. Findings with the pleural fluid and/or pleural effusions on the prior study considerably improved. 2. Progressive diffuse bilateral parenchymal infiltrates versus the more likely possibility of pulmonary edematous change. The above report was generated using voice recognition software. It may contain grammatical, syntax or spelling errors. Electronically signed by: Kirill Rainey M.D. 08/14/2017 8:54 PM Dictated Date/Time: 08/14/2017 8:53 PM
--- NOTE | 2017-08-14 20:56 | Infectious Disease Progress Nt ---
Progress Note Date of Service Aug 14, 2017. Subjective Pt evaluation today including: conversation w/ patient, physical exam, chart review, lab review, review of studies, conversation w/ testing consultant, review of inpatient medication list Patient offering no new complaints today. Denies increase in shortness of breath or cough. Remains afebrile All Other Systems: Reviewed and Negative Medications Current Inpatient Medications Medications (Trade) Dose Ordered Sig/Edward Route Start Time Stop Time Status Last Admin Dose Admin Hydralazine HCl (HydrALAZINE INJ) 5 mg Q4 PRN IV. 07/21/17 17:15 08/20/17 17:14 Future Hold 07/25/17 23:45 5 MG Hydralazine HCl (HydrALAZINE INJ) 5 mg TID IV. 07/21/17 21:00 08/20/17 20:59 Future Hold 07/30/17 08:33 5 MG Miscellaneous Information (Consult Glycemic Management Pharmacy) 1 ea UD PRN N/A 07/23/17 13:14 08/22/17 13:13 Insulin Aspart (novoLOG ASPART) SLIDING SCALE G... ACHS SC 07/27/17 11:30 08/26/17 11:29 08/14/17 08:02 4 UNITS Ipratropium Prole (Atrovent 0.02% 0.5MG/2.5ML Neb) 0.5 mg Q6R INH 07/29/17 09:00 08/28/17 08:59 08/14/17 19:41 0.5 MG Levalbuterol (Xopenex 0.63 Mg/ 3 Ml Neb) 0.63 mg Q6R INH 07/29/17 09:00 08/28/17 08:59 08/14/17 19:42 0.63 MG Metoprolol Tartrate (Lopressor Tab) 100 mg BID PO 07/29/17 21:00 08/28/17 20:59 08/14/17 14:01 100 MG Amlodipine Besylate (Norvasc Tab) 10 mg QAM PO 07/30/17 09:00 08/29/17 08:59 08/14/17 14:01 10 MG Diphenhydramine HCl (Benadryl Inj) 50 mg 4XDQ4H PRN IV 07/30/17 13:30 08/29/17 13:29 Heparin Sodium (Porcine) (Heparin Sq 5000 Unit/0.5ml) 5,000 unit Q8 SQ 07/30/17 22:00 08/29/17 21:59 08/14/17 14:08 5,000 UNIT Furosemide (Lasix Tab) 40 mg QAM PO 08/01/17 09:00 08/31/17 08:59 08/14/17 08:06 40 MG Calcium Carbonate (Tums Chew Tab) 500 mg TID PO 08/02/17 09:00 09/01/17 08:59 08/14/17 14:00 500 MG Enteral Nutritional Formula (Boost Glucose Control) 1 can BID@1000,2100 PO 08/01/17 21:00 08/31/17 20:59 08/14/17 14:02 1 CAN Vitamin B Complex/ Vit C/Folic Acid (Nephrocaps) 1 cap QAM PO 08/07/17 09:00 09/06/17 08:59 08/14/17 08:05 1 CAP Daptomycin 350 mg/ Syringe 7 ml @ 3.5 mls/min Q48H IV 08/07/17 13:15 08/17/17 13:14 08/13/17 20:02 3.5 MLS/MIN Fentanyl (Duragesic Patch) 25 mcg Q72H TD 08/07/17 18:00 08/21/17 17:59 08/13/17 17:46 25 MCG Miscellaneous (Fentanyl Patch Remove & Waste) 1 ea Q72H N/A 08/10/17 17:59 09/09/17 17:58 08/13/17 17:47 1 EA Miscellaneous Information (Check Fentanyl Patch Placement) 1 ea QS N/A 08/08/17 00:00 09/07/17 00:00 08/14/17 16:50 1 EA Polyethylene (Miralax Powder Packet) 17 gm DAILY PRN PO 08/09/17 07:00 09/08/17 06:59 Methadone HCl (Dolophine Tab) 20 mg BID PO 08/08/17 23:00 08/22/17 22:59 08/14/17 08:10 20 MG Ergocalciferol (Vitamin D Cap) 50,000 interunit We@0900 PO 08/09/17 10:30 09/08/17 10:29 08/09/17 14:07 50,000 INTERUNIT Polyethylene (Miralax Powder Packet) 17 gm DAILY PO 08/09/17 13:00 09/08/17 12:59 08/14/17 08:15 17 GM Heparin Sodium (Porcine) (Heparin 100 Unit/ml 5ml Flush) 5 ml PRN PRN IV 08/09/17 13:00 09/08/17 12:59 Insulin Human NPH (novoLIN-N NPH) 12 units QDB SC 08/11/17 07:30 09/10/17 07:29 08/14/17 08:02 12 UNITS Oxycodone HCl (Oxycontin Tab) 10 mg TID PRN PO 08/11/17 11:30 08/25/17 11:29 08/14/17 17:02 10 MG Simvastatin (Zocor Tab) 20 mg PM PO 08/11/17 21:00 09/10/17 20:59 08/13/17 21:35 20 MG Tamsulosin HCl (Flomax Cap) 0.4 mg HS PO 08/11/17 21:00 09/10/17 20:59 08/13/17 21:35 0.4 MG Insulin Human NPH (novoLIN-N NPH) 6 units QDD SC 08/13/17 16:45 09/12/17 16:44 08/14/17 17:06 6 UNITS Ethyl Chloride (Ethyl Chloride Aerosol) 1 ml PRN PRN EXT 08/14/17 17:00 09/13/17 16:59 Methylprednisolone Sodium Succinate 60 mg/Syringe 0.96 ml @ 1.5 mls/min Q6H IV 08/14/17 18:00 09/13/17 17:59 08/14/17 19:11 1.5 MLS/MIN Objective Vital Signs Date Time Temp Pulse Resp B/P (MAP) Pulse Ox O2 Delivery O2 Flow Rate FiO2 08/14/17 19:44 105 20 90 Mask 15.0 08/14/17 16:20 Oxymask 12.0 Mask 08/14/17 16:03 36.9 114 24 151/77 (101) 87 Oxymask 15.0 08/14/17 16:00 110 20 92 Mask 15.0 08/14/17 13:30 36.9 98 139/57 (84) 08/14/17 13:00 102 108/64 08/14/17 12:45 112 129/61 08/14/17 12:30 104 113/66 08/14/17 12:15 97 97/48 08/14/17 12:00 105 108/60 08/14/17 12:00 Oxymask 12.0 Mask 08/14/17 11:45 100 101/53 08/14/17 11:30 104 102/55 08/14/17 11:15 103 112/61 08/14/17 11:05 102 128/102 08/14/17 11:03 36.9 86 20 95/48 (64) 90 08/14/17 11:00 108 184/53 08/14/17 10:45 108 95/42 08/14/17 10:30 85 95/48 08/14/17 10:15 115 106/43 08/14/17 10:00 100 114/57 08/14/17 09:45 100 116/62 08/14/17 09:30 114 147/82 08/14/17 09:15 90 152/78 08/14/17 09:07 88 156/76 08/14/17 08:55 36.9 96 158/84 (108) 08/14/17 08:10 91 Oxymask 12.0 Mask 08/14/17 07:22 72 20 91 Mask 11.0 08/14/17 04:00 Oxymask 12.0 08/14/17 03:47 36.9 92 18 154/74 (100) 100 08/14/17 02:15 94 99 60 08/14/17 02:15 94 20 99 BiPAP/CPAP 60 08/14/17 00:23 37.0 97 18 167/78 (107) 95 08/14/17 00:00 Oxymask 12.0 08/13/17 23:45 97 97 60 Physical Exam General Appearance: WD/WN, no apparent distress Eyes: normal inspection, sclerae normal ENT: normal ENT inspection, pharynx normal Neck: supple, no adenopathy, trachea midline Respiratory/Chest: chest non-tender, lungs clear, normal breath sounds, no respiratory distress Cardiovascular: regular rate, rhythm, no gallop, no murmur Abdomen: normal bowel sounds, non tender, soft, no organomegaly Extremities: non-tender, no calf tenderness Neurologic/Psychiatric: alert, oriented x 3 Skin: normal color, no rash, + pertinent finding (Left hand erythema improved) Lymphatic: no adenopathy Laboratory Results Last 24 Hours Test 08/13/17 23:37 08/14/17 06:28 08/14/17 07:26 08/14/17 11:37 Bedside Glucose 156 mg/dl 143 mg/dl 88 mg/dl White Blood Count 17.33 K/uL Red Blood Count 2.94 M/uL Hemoglobin 9.0 g/dL Hematocrit 27.1 % Mean Corpuscular Volume 92.2 fL Mean Corpuscular Hemoglobin 30.6 pg Mean Corpuscular Hemoglobin Concent 33.2 g/dl RDW Standard Deviation 59.2 fL RDW Coefficient of Variation 17.7 % Platelet Count 108 K/uL Mean Platelet Volume 11.3 fL Nucleated RBC Absolute Count (auto) 0.09 K/uL Nucleated Red Blood Cells % 0.5 % Sodium Level 135 mmol/L Potassium Level 5.8 mmol/L Chloride Level 101 mmol/L Carbon Dioxide Level 23 mmol/L Anion Gap 11.0 mmol/L Blood Urea Nitrogen 103 mg/dl Creatinine 4.10 mg/dl Est Creatinine Clear Calc Drug Dose 19.0 ml/min Estimated GFR () 16.8 Estimated GFR (Non- 14.5 BUN/Creatinine Ratio 25.2 Random Glucose 109 mg/dl Calcium Level 9.9 mg/dl Test 08/14/17 16:31 Bedside Glucose 93 mg/dl Assessment and Plan 61-year-old male with metastatic renal cell carcinoma with left hand cellulitis , Possible reflex sympathetic dystrophy, subsequent development of pneumonitis, C difficile infection, and then 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 Culture of peritoneal and pleural fluid both growing Cecilia glabrata, caspofungin to be continued, likely in the range of 2 weeks from time of his thoracentesis.. Left hand swelling and erythema slightly worse, still suspect that this represents reflex sympathetic dystrophy. However have recommended restarting daptomycin to see if there will be clinical response. Will continue to follow.
[2017-08-14] MEDS: TAMSULOSIN HCL 0.4 MG CAP PO SCH (21:45)
[2017-08-14] MEDS: SIMVASTATIN 20 MG TAB PO SCH (21:45)
[2017-08-15] VITALS (13 sets, daily range): BP systolic 152–180; BP diastolic 72–87; PULSE 87–106; TEMP 36.5–37; O2SAT 89–97
[2017-08-15] MEDS: METHYLPREDNISOLONE IV 60 MG in SYRINGE 0 ML IV SCH ×4 (00:16→18:08)
[2017-08-15] MEDS: CHECK FENTANYL PATCH PLACEMENT SCH ×3 (00:18→16:25)
[2017-08-15] MEDS: IPRATROPIUM BROMIDE NEB SOLN 0.02% 2.5 ML VIAL INH SCH ×4 (02:28→19:35)
[2017-08-15] MEDS: LEVALBUTEROL 0.63MG/3 ML NEB INH SCH ×4 (02:28→19:35)
[2017-08-15] MEDS: HEPARIN SOD 5000 UNIT/0.5 ML CARP SQ SCH ×3 (05:48→21:21)
[2017-08-15 06:36] LABS: HEMATOCRIT 29.2 % (42-52); HEMOGLOBIN 9.5 g/dL (14.0-18.0); MEAN CORPUSCULAR HEMOGLOBIN 30.3 pg (25-34); MEAN CORPUSCULAR HGB CONC 32.5 g/dl (32-36); MEAN PLATELET VOLUME 10.8 fL (7.4-10.4); PLATELET COUNT 123 K/uL (130-400); RED CELL DISTRIBUTION WIDTH CV 17.7 % (11.5-14.5); WHITE BLOOD COUNT 21.07 K/uL (4.8-10.8)
[2017-08-15 07:15] LABS: ALBUMIN 1.7 gm/dl (3.4-5.0); CALCIUM 9.6 mg/dl (8.5-10.1); CREATININE 3.03 mg/dl (0.60-1.40); POTASSIUM 5.6 mmol/L (3.5-5.1)
[2017-08-15 07:17] LABS: TOTAL PROTEIN 5.4 gm/dl (6.4-8.2)
[2017-08-15] MEDS ORDERED: INSULIN HUMAN NPH SC SCH ×2 (07:30→16:45)
[2017-08-15] MEDS: POLYETHYLENE (MIRALAX) 17 GM PACK PO SCH (09:03)
[2017-08-15] MEDS: OXYCODONE HCL 10 MG TABCR (OXYCONTIN) PO PRN ×2 (09:03→16:24)
[2017-08-15] MEDS: METHADONE HCL 10 MG TAB PO SCH ×2 (09:04→20:37)
[2017-08-15] MEDS: METOPROLOL TARTRATE 100 MG TAB PO SCH ×2 (09:05→20:33)
[2017-08-15] MEDS: NEPHROCAPS PO SCH (09:05)
[2017-08-15] MEDS: CALCIUM CARBONATE 500 MG CHEWABLE PO SCH ×3 (09:05→20:34)
[2017-08-15] MEDS: AMLODIPINE BESYLATE 5 MG TAB PO SCH (09:06)
[2017-08-15] MEDS: FUROSEMIDE 40 MG TAB PO SCH (09:07)
[2017-08-15] MEDS: INSULIN ASPART 100 UNITS/ML 3 ML PEN SC SCH ×4 (09:11→21:20)
[2017-08-15] MEDS: BOOST GLUCOSE CONTROL PO SCH (09:14)
[2017-08-15] MEDS ORDERED: DIALYSIS IP SCH (10:00)
[2017-08-15] MEDS ORDERED: GENTAMICIN IP SCH (10:00)
[2017-08-15] MEDS ORDERED: PERITONEAL 1.5% IP SCH (10:00)
[2017-08-15] MEDS ORDERED: BISACODYL 10 MG SUPP ONE (10:02)
--- NOTE | 2017-08-15 10:02 | Pharmacy Progress Note ---
Pharmacy Glycemic Short Note 2 Date of Service Aug 15, 2017. Outpatient Medications: * Lantus 14 units SQ qHS * Humalog SSI * HbA1c: n/a in HD patient ASSESSMENT: * Pt receiving SQ basal/bolus insulin regimen for hyperglycemia secondary to baseline DM,stress/infection, recent surgery, steroids * Steroids increase last evening (from prednisone 20mg BID to SoluMedrol 60mg IV q6h) * Patient's BSGs have been very labile and difficult to control secondary to dialysis, fluctuating PO intake, and steroid therapy. * Patient has been receiving ~30-45 units of insulin per day. * BSGs over the past 24 hrs had been quite stable, but with the marked increase in steroid dose, pt is hyperglycemic today * It seems that patient is now receiving fairly regular HD sessions * At this point, have increased NPH doses and tightened Novolog parameters to provide additional insulin * Expect that insulin needs will decrease again once steroids are tapered PLAN FOR INPATIENT GLYCEMIC CONTROL: Maintain BSGs in the 150-250mg/dl range. This is considered adequate control for patient based on prognosis. * Basal insulin * NPH 15 units SQ daily in AM with breakfast + NPH 8 units with dinner * Expect that NPH will need to be titrated up and down as steroid therapy is adjusted * Bolus insulin * NovoLog per scale ACHS * Goal Range: Low 120 mg/dL - High 160 mg/dL * Correction Factor: 15 mg/dL/unit * Nutritional / Prandial insulin per carb ratio of 1 unit per 7 grams CHO consumed
[2017-08-15] MEDS ORDERED: BISACODYL 10 MG SUPP PR ONE (10:15)
[2017-08-15] MEDS ORDERED: CASPOFUNGIN INJ 70 MG in SODIUM CHLORIDE 0.9% 250ML 250 ML IV ONE (10:30)
--- NOTE | 2017-08-15 11:44 | Nephrology Progress Note ---
Nephrology Progress Note Date of Service Aug 15, 2017. Chief Complaint Follow-up for end-stage renal disease on hemodialysis. Roland Causey was seen and examined in his room this am. Overall feeling about the same , requiring 12 L NC O2 for low sat. BP stable. K high. Review of Systems A complete review of systems was performed. Pertinent positives are noted above. All other systems are negative. Vital Signs Last 8 Hrs Date Time Temp Pulse Resp B/P (MAP) Pulse Ox O2 Delivery O2 Flow Rate FiO2 08/15/17 08:00 36.6 101 22 171/78 (109) 93 Oxymask 15.0 08/15/17 07:05 87 18 94 Mask 15.0 08/15/17 04:18 37.0 95 18 155/72 (99) 93 BiPAP 08/15/17 04:00 93 BiPAP 15.0 Last Recorded Weight Weight (Kilograms): 69.900 Physical Exam GENERAL: Middle-aged male, AAA x 3, pleasant, pale, ill-appearing, not in any distress. NECK: Supple, no JVD. RESPIRATORY: Normal breathing efforts, no accessory muscle use, CTA CARDIOVASCULAR: S1, S2 normal, rate rhythm regular. EXTREMITY: no edema NEURO: speech fluent. PSYCHIATRY: Normal mood and judgment Family History Cervical cancer Diabetes mellitus Heart disease Hypertension Myocardial infarction Pancreatic cancer Prostate cancer Negative for CKD/ESRD Social History Smokeless Tobacco Use: No Alcohol Use: none Drug Use: none Marital Status: single Housing Status: lives alone Occupation: disabled Single, retired. Formerly worked for [employer]. Never a smoker. Laboratory Results Past 24 Hours 08/15/17 06:10 Red Blood Count 3.14, Mean Corpuscular Volume 93.0, Mean Corpuscular Hemoglobin 30.3, Mean Corpuscular Hemoglobin Concent 32.5, Mean Platelet Volume 10.8 08/15/17 06:10 08/15/17 10:46 Test 08/14/17 16:31 08/14/17 21:04 08/15/17 06:10 08/15/17 06:31 Bedside Glucose 93 mg/dl (70-99) 111 mg/dl (70-99) 231 mg/dl (70-99) White Blood Count 21.07 K/uL (4.8-10.8) Red Blood Count 3.14 M/uL (4.7-6.1) Hemoglobin 9.5 g/dL (14.0-18.0) Hematocrit 29.2 % (42-52) Mean Corpuscular Volume 93.0 fL (80-100) Mean Corpuscular Hemoglobin 30.3 pg (25-34) Mean Corpuscular Hemoglobin Concent 32.5 g/dl (32-36) Platelet Count 123 K/uL (130-400) Mean Platelet Volume 10.8 fL (7.4-10.4) RDW Standard Deviation 60.0 fL (36.4-46.3) RDW Coefficient of Variation 17.7 % (11.5-14.5) Nucleated RBC Absolute Count (auto) 0.50 K/uL (0-0) Neutrophils % (Manual) 92.9 % Lymphocytes % (Manual) 3.5 % Monocytes % (Manual) 0.9 % Metamyelocytes % 0.9 % Myelocytes % 1.8 % Nucleated Red Blood Cells % 2.4 % Neutrophils # (Manual) 19.57 K/uL (1.4-6.5) Total Absolute Neutrophils 19.57 K/uL (1.4-6.5) Lymphocytes # (Manual) 0.74 K/uL (1.2-3.4) Total Absolute Lymphocytes 0.74 K/uL (1.2-3.4) Monocytes # (Manual) 0.19 K/uL (0.11-0.59) Metamyelocytes # 0.19 K/uL (0-0) Myelocytes # 0.38 K/uL (0-0) Red Blood Cell Morphology Unremarkable Anion Gap 9.0 mmol/L (3-11) Est Creatinine Clear Calc Drug Dose 24.7 ml/min Estimated GFR () 24.2 Estimated GFR (Non- 20.9 BUN/Creatinine Ratio 22.3 (10-20) Calcium Level 9.6 mg/dl (8.5-10.1) Total Bilirubin 0.5 mg/dl (0.2-1) Aspartate Amino Transf (AST/SGOT) 32 U/L (15-37) Alanine Aminotransferase (ALT/SGPT) 41 U/L (12-78) Alkaline Phosphatase 274 U/L (45-117) Total Protein 5.4 gm/dl (6.4-8.2) Albumin 1.7 gm/dl (3.4-5.0) Globulin 3.7 gm/dl (2.5-4.0) Albumin/Globulin Ratio 0.5 (0.9-2) Test 08/15/17 10:52 Bedside Glucose 294 mg/dl (70-99) Allergies Coded Allergies: Iodinated Diagnostic Agents (Verified Allergy, Unknown, oil based, severe headaches, 06/20/17) EVENT OCCURED IN 1971, PT STATES HE HAS HAD 3 DIFFERENT WATER BASED IVP DYES WITH NO ISSUE Medications Current Inpatient Medications Medications (Trade) Dose Ordered Sig/Edward Route Start Time Stop Time Status Last Admin Dose Admin Hydralazine HCl (HydrALAZINE INJ) 5 mg Q4 PRN IV. 07/21/17 17:15 08/20/17 17:14 Future Hold 07/25/17 23:45 5 MG Hydralazine HCl (HydrALAZINE INJ) 5 mg TID IV. 07/21/17 21:00 08/20/17 20:59 Future Hold 07/30/17 08:33 5 MG Miscellaneous Information (Consult Glycemic Management Pharmacy) 1 ea UD PRN N/A 07/23/17 13:14 08/22/17 13:13 Insulin Aspart (novoLOG ASPART) SLIDING SCALE G... ACHS SC 07/27/17 11:30 08/26/17 11:29 08/15/17 09:11 11 UNITS Ipratropium Edison (Atrovent 0.02% 0.5MG/2.5ML Neb) 0.5 mg Q6R INH 07/29/17 09:00 08/28/17 08:59 08/15/17 07:05 0.5 MG Levalbuterol (Xopenex 0.63 Mg/ 3 Ml Neb) 0.63 mg Q6R INH 07/29/17 09:00 08/28/17 08:59 08/15/17 07:05 0.63 MG Metoprolol Tartrate (Lopressor Tab) 100 mg BID PO 07/29/17 21:00 08/28/17 20:59 08/15/17 09:05 100 MG Amlodipine Besylate (Norvasc Tab) 10 mg QAM PO 07/30/17 09:00 08/29/17 08:59 08/15/17 09:06 10 MG Diphenhydramine HCl (Benadryl Inj) 50 mg 4XDQ4H PRN IV 07/30/17 13:30 08/29/17 13:29 Heparin Sodium (Porcine) (Heparin Sq 5000 Unit/0.5ml) 5,000 unit Q8 SQ 07/30/17 22:00 08/29/17 21:59 08/15/17 05:48 5,000 UNIT Furosemide (Lasix Tab) 40 mg QAM PO 08/01/17 09:00 08/31/17 08:59 08/15/17 09:07 40 MG Calcium Carbonate (Tums Chew Tab) 500 mg TID PO 08/02/17 09:00 09/01/17 08:59 08/15/17 09:05 500 MG Enteral Nutritional Formula (Boost Glucose Control) 1 can BID@1000,2100 PO 08/01/17 21:00 08/31/17 20:59 08/15/17 09:14 1 CAN Vitamin B Complex/ Vit C/Folic Acid (Nephrocaps) 1 cap QAM PO 08/07/17 09:00 09/06/17 08:59 08/15/17 09:05 1 CAP Fentanyl (Duragesic Patch) 25 mcg Q72H TD 08/07/17 18:00 08/21/17 17:59 08/13/17 17:46 25 MCG Miscellaneous (Fentanyl Patch Remove & Waste) 1 ea Q72H N/A 08/10/17 17:59 09/09/17 17:58 08/13/17 17:47 1 EA Miscellaneous Information (Check Fentanyl Patch Placement) 1 ea QS N/A 08/08/17 00:00 09/07/17 00:00 08/15/17 08:00 1 EA Polyethylene (Miralax Powder Packet) 17 gm DAILY PRN PO 08/09/17 07:00 09/08/17 06:59 Methadone HCl (Dolophine Tab) 20 mg BID PO 08/08/17 23:00 08/22/17 22:59 08/15/17 09:04 20 MG Ergocalciferol (Vitamin D Cap) 50,000 interunit We@0900 PO 08/09/17 10:30 09/08/17 10:29 08/09/17 14:07 50,000 INTERUNIT Polyethylene (Miralax Powder Packet) 17 gm DAILY PO 08/09/17 13:00 09/08/17 12:59 08/15/17 09:03 17 GM Heparin Sodium (Porcine) (Heparin 100 Unit/ml 5ml Flush) 5 ml PRN PRN IV 08/09/17 13:00 09/08/17 12:59 Oxycodone HCl (Oxycontin Tab) 10 mg TID PRN PO 08/11/17 11:30 08/25/17 11:29 08/15/17 09:03 10 MG Simvastatin (Zocor Tab) 20 mg PM PO 08/11/17 21:00 09/10/17 20:59 08/14/17 21:45 20 MG Tamsulosin HCl (Flomax Cap) 0.4 mg HS PO 08/11/17 21:00 09/10/17 20:59 08/14/17 21:45 0.4 MG Ethyl Chloride (Ethyl Chloride Aerosol) 1 ml PRN PRN EXT 08/14/17 17:00 09/13/17 16:59 Methylprednisolone Sodium Succinate 60 mg/Syringe 0.96 ml @ 1.5 mls/min Q6H IV 08/14/17 18:00 09/13/17 17:59 08/15/17 05:49 1.5 MLS/MIN Insulin Human NPH (novoLIN-N NPH) 15 units QDB SC 08/15/17 07:30 09/14/17 07:29 08/15/17 09:11 15 UNITS Insulin Human NPH (novoLIN-N NPH) 8 units QDD SC 08/15/17 16:45 09/14/17 16:44 Gentamicin Sulfate 40 mg/ [facility] 2,001 ml @ 0 mls/hr 1000 IP 08/15/17 10:00 08/15/17 16:00 UNV Caspofungin 50 mg/ Sodium Chloride 260 ml @ 250 mls/hr DAILY IV 08/16/17 09:00 08/23/17 08:59 Enteral Nutritional Formula (Prosource No Carb) 30 ml 3XDQ4 PO 08/15/17 12:00 09/14/17 11:59 Impression (1) Cellulitis of left hand (2) ESRD (end stage renal disease) on dialysis (3) Renal cell carcinoma (4) Anemia (5) Diabetes type 2, controlled Mr. Christy had metastatic RCCA. He underwent left nephrectomy 2015. He did not tolerate Sutent due to high grade proteinuria. Opdivo caused arthralgia, colitis and possible pneumonitis. He was most recently treated w/ Cabometyx. 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 Colonic reanastamosis was performed at the time of surgery. The patient has a complex medical history including persistent soft tissue infection of the left hand, C. Difficile colitis, metastatic RCCA, interstitial lung disease requiring steroid therapy, dc glabrata infection of pleural and peritoneal fluid Mr. Christy's dialysis has been complicated by prolonged bleeding from the AVF following treatment. 07/23 doppler study revealed a high grade venous outflow stenosis. He required fistulagram and coil embolization 07/25/16. Recommendations --will repeat K --plan for next dialysis tomorrow unless K is significantly elevated --avoid IV fluids, continue on renal diet, dose medications for GFR less than 10 --overall prognosis guarded as no significant improvement in respiratory status , briefly discussed with patient about code status, patient is planning to discuss with family and make decision. Will follow
[2017-08-15] MEDS: PROSOURCE NOCARB 30ML/PKT PO SCH ×2 (13:04→16:25)
--- NOTE | 2017-08-15 13:45 | Hospitalist Progress Note ---
Hospitalist Progress Note Date of Service Aug 15, 2017. (Ledy Bhakta ., PA-C) Subjective Pt evaluation today including: conversation w/ patient, physical exam, lab review, review of studies, conversation w/ [employer] wms consultant, review of inpatient medication list Voiding: no voiding problems Patient feeling well. Eating and drinking OK. Discussed getting out of bed to the chair. Discussed w/ RN as well. Call PT- instructed them to see patient everyday. Discussed code status- patient still thinking about it. Wants to discuss w/ Eulalia - called x2 with no answer. +BM today. Patient denies any fever, chills, sweats, lightheadedness, dizziness, vision changes, CP, palpitations, edema, SOB, wheezing, cough, abdominal pain, nausea, vomiting, diarrhea, urinary symptoms, melena, numbness/tingling, weakness, muscle/joint pain, anxiety/depression, active bleeding, or new skin discoloration/changes. WBC increasing and CT of chest reviewed- discussed w/ Dr. Philippe- restarted Caspofungin, will continue to monitor for IV antibiotic need (Ledy Bhakta, PA-C) Medications Current Inpatient Medications Medications (Trade) Dose Ordered Sig/Edward Route Start Time Stop Time Status Last Admin Dose Admin Hydralazine HCl (HydrALAZINE INJ) 5 mg Q4 PRN IV. 07/21/17 17:15 08/20/17 17:14 Future Hold 07/25/17 23:45 5 MG Hydralazine HCl (HydrALAZINE INJ) 5 mg TID IV. 07/21/17 21:00 08/20/17 20:59 Future Hold 07/30/17 08:33 5 MG Miscellaneous Information (Consult Glycemic Management Pharmacy) 1 ea UD PRN N/A 07/23/17 13:14 08/22/17 13:13 Insulin Aspart (novoLOG ASPART) SLIDING SCALE G... ACHS SC 07/27/17 11:30 08/26/17 11:29 08/15/17 13:08 13 UNITS Ipratropium [place] (Atrovent 0.02% 0.5MG/2.5ML Neb) 0.5 mg Q6R INH 07/29/17 09:00 08/28/17 08:59 08/15/17 07:05 0.5 MG Levalbuterol (Xopenex 0.63 Mg/ 3 Ml Neb) 0.63 mg Q6R INH 07/29/17 09:00 08/28/17 08:59 08/15/17 07:05 0.63 MG Metoprolol Tartrate (Lopressor Tab) 100 mg BID PO 07/29/17 21:00 08/28/17 20:59 08/15/17 09:05 100 MG Amlodipine Besylate (Norvasc Tab) 10 mg QAM PO 07/30/17 09:00 08/29/17 08:59 08/15/17 09:06 10 MG Diphenhydramine HCl (Benadryl Inj) 50 mg 4XDQ4H PRN IV 07/30/17 13:30 08/29/17 13:29 Heparin Sodium (Porcine) (Heparin Sq 5000 Unit/0.5ml) 5,000 unit Q8 SQ 07/30/17 22:00 08/29/17 21:59 08/15/17 13:08 5,000 UNIT Furosemide (Lasix Tab) 40 mg QAM PO 08/01/17 09:00 08/31/17 08:59 08/15/17 09:07 40 MG Calcium Carbonate (Tums Chew Tab) 500 mg TID PO 08/02/17 09:00 09/01/17 08:59 08/15/17 13:04 500 MG Enteral Nutritional Formula (Boost Glucose Control) 1 can BID@1000,2100 PO 08/01/17 21:00 08/31/17 20:59 08/15/17 09:14 1 CAN Vitamin B Complex/ Vit C/Folic Acid (Nephrocaps) 1 cap QAM PO 08/07/17 09:00 09/06/17 08:59 08/15/17 09:05 1 CAP Fentanyl (Duragesic Patch) 25 mcg Q72H TD 08/07/17 18:00 08/21/17 17:59 08/13/17 17:46 25 MCG Miscellaneous (Fentanyl Patch Remove & Waste) 1 ea Q72H N/A 08/10/17 17:59 09/09/17 17:58 08/13/17 17:47 1 EA Miscellaneous Information (Check Fentanyl Patch Placement) 1 ea QS N/A 08/08/17 00:00 09/07/17 00:00 08/15/17 08:00 1 EA Polyethylene (Miralax Powder Packet) 17 gm DAILY PRN PO 08/09/17 07:00 09/08/17 06:59 Methadone HCl (Dolophine Tab) 20 mg BID PO 08/08/17 23:00 08/22/17 22:59 08/15/17 09:04 20 MG Ergocalciferol (Vitamin D Cap) 50,000 interunit We@0900 PO 08/09/17 10:30 09/08/17 10:29 08/09/17 14:07 50,000 INTERUNIT Polyethylene (Miralax Powder Packet) 17 gm DAILY PO 08/09/17 13:00 09/08/17 12:59 08/15/17 09:03 17 GM Heparin Sodium (Porcine) (Heparin 100 Unit/ml 5ml Flush) 5 ml PRN PRN IV 08/09/17 13:00 09/08/17 12:59 Oxycodone HCl (Oxycontin Tab) 10 mg TID PRN PO 08/11/17 11:30 08/25/17 11:29 08/15/17 09:03 10 MG Simvastatin (Zocor Tab) 20 mg PM PO 08/11/17 21:00 09/10/17 20:59 08/14/17 21:45 20 MG Tamsulosin HCl (Flomax Cap) 0.4 mg HS PO 08/11/17 21:00 09/10/17 20:59 08/14/17 21:45 0.4 MG Ethyl Chloride (Ethyl Chloride Aerosol) 1 ml PRN PRN EXT 08/14/17 17:00 09/13/17 16:59 Methylprednisolone Sodium Succinate 60 mg/Syringe 0.96 ml @ 1.5 mls/min Q6H IV 08/14/17 18:00 09/13/17 17:59 08/15/17 13:04 1.5 MLS/MIN Insulin Human NPH (novoLIN-N NPH) 15 units QDB SC 08/15/17 07:30 09/14/17 07:29 08/15/17 09:11 15 UNITS Insulin Human NPH (novoLIN-N NPH) 8 units QDD SC 08/15/17 16:45 09/14/17 16:44 Caspofungin 50 mg/ Sodium Chloride 260 ml @ 250 mls/hr DAILY IV 08/16/17 09:00 08/23/17 08:59 Enteral Nutritional Formula (Prosource No Carb) 30 ml 3XDQ4 PO 08/15/17 12:00 09/14/17 11:59 08/15/17 13:04 30 ML (Ledy Bhakta, PA-C) Objective Vital Signs Date Time Temp Pulse Resp B/P (MAP) Pulse Ox O2 Delivery O2 Flow Rate FiO2 08/15/17 11:02 36.6 106 20 180/87 (118) 92 Oxymask 15.0 08/15/17 08:00 36.6 101 22 171/78 (109) 93 Oxymask 15.0 08/15/17 08:00 93 Oxymask 15.0 08/15/17 07:05 87 18 94 Mask 15.0 08/15/17 04:18 37.0 95 18 155/72 (99) 93 BiPAP 08/15/17 04:00 93 BiPAP 15.0 08/15/17 02:29 97 60 08/15/17 02:28 95 20 97 BiPAP/CPAP 60 08/15/17 00:00 90 Oxymask 15.0 08/15/17 00:00 36.7 96 24 164/77 (106) 90 Oxymask 15.0 08/14/17 21:49 37.2 107 20 160/78 (105) 87 Oxymask 15.0 08/14/17 21:41 101 163/75 (104) 08/14/17 20:00 87 Oxymask 15.0 08/14/17 19:44 105 20 90 Mask 15.0 08/14/17 16:20 Oxymask 12.0 Mask 08/14/17 16:03 36.9 114 24 151/77 (101) 87 Oxymask 15.0 08/14/17 16:00 110 20 92 Mask 15.0 (Ledy Bhakta, CHRISTEN-C) Physical Exam General Appearance: no apparent distress, + pertinent finding (OxyMask on ) Eyes: normal inspection, PERRL ENT: hearing grossly normal Neck: supple Respiratory/Chest: no respiratory distress, no accessory muscle use, + decreased breath sounds (throughout ) Cardiovascular: regular rate, rhythm Abdomen: normal bowel sounds, non tender, soft Extremities: no calf tenderness, + swelling (bilateral lower extremities ), + pertinent finding (muscle wasting of bilateral lower extremities ) Neurologic/Psychiatric: alert, normal mood/affect, oriented x 3 Skin: normal color, warm/dry, no rash (Ledy Bhakta, PADorcasC) Laboratory Results Last 24 Hours Test 08/14/17 16:31 08/14/17 21:04 08/15/17 06:10 08/15/17 06:31 Bedside Glucose 93 mg/dl 111 mg/dl 231 mg/dl White Blood Count 21.07 K/uL Red Blood Count 3.14 M/uL Hemoglobin 9.5 g/dL Hematocrit 29.2 % Mean Corpuscular Volume 93.0 fL Mean Corpuscular Hemoglobin 30.3 pg Mean Corpuscular Hemoglobin Concent 32.5 g/dl Platelet Count 123 K/uL Mean Platelet Volume 10.8 fL RDW Standard Deviation 60.0 fL RDW Coefficient of Variation 17.7 % Nucleated RBC Absolute Count (auto) 0.50 K/uL Neutrophils % (Manual) 92.9 % Lymphocytes % (Manual) 3.5 % Monocytes % (Manual) 0.9 % Metamyelocytes % 0.9 % Myelocytes % 1.8 % Nucleated Red Blood Cells % 2.4 % Neutrophils # (Manual) 19.57 K/uL Total Absolute Neutrophils 19.57 K/uL Lymphocytes # (Manual) 0.74 K/uL Total Absolute Lymphocytes 0.74 K/uL Monocytes # (Manual) 0.19 K/uL Metamyelocytes # 0.19 K/uL Myelocytes # 0.38 K/uL Red Blood Cell Morphology Unremarkable Sodium Level 135 mmol/L Potassium Level 5.6 mmol/L Chloride Level 101 mmol/L Carbon Dioxide Level 25 mmol/L Anion Gap 9.0 mmol/L Blood Urea Nitrogen 68 mg/dl Creatinine 3.03 mg/dl Est Creatinine Clear Calc Drug Dose 24.7 ml/min Estimated GFR () 24.2 Estimated GFR (Non- 20.9 BUN/Creatinine Ratio 22.3 Random Glucose 228 mg/dl Calcium Level 9.6 mg/dl Total Bilirubin 0.5 mg/dl Aspartate Amino Transf (AST/SGOT) 32 U/L Alanine Aminotransferase (ALT/SGPT) 41 U/L Alkaline Phosphatase 274 U/L Total Protein 5.4 gm/dl Albumin 1.7 gm/dl Globulin 3.7 gm/dl Albumin/Globulin Ratio 0.5 Test 08/15/17 10:46 08/15/17 10:52 Potassium Level 4.9 mmol/L Bedside Glucose 294 mg/dl (Ledy Bhakta, PA-C) Assessment and Plan Mr. Christy is a 61 y/o M with PMH of ESRD on HD, RCC, DMII. Admitted for L hand cellulitis having failed outpatient management. Abdominal pain, found to have incidental rectus sheath hematoma, C.diff positive colitis and subsequent bowel perforation on 07/21, now s/p colectomy, anemia, and bilateral pneumonia on imaging. Acute hypoxia respiratory failure, ?secondary to pulmonary edema vs cryptogenic organizing pneumonia/drug related pneumonitis: - Continue O2 supplementation to maintain SaO2 >92%, wean as tolerated - Started on heparin drip on 07/26 for presumed PE- CTA 07/30/17 negative for PE, thus heparin drip stopped - Large R pleural effusion s/p thoracentesis completed 07/30/17- pleural pathology w/ no malignancy, pleural cultures growing yeast- IV Caspofungin restarted on 08/15 - IV Solu-Medrol- transitioned to Prednisone 20 mg BID on 07/31 for prolonged taper- stopped on 08/14 due to restarting IV Solu Medrol - DuoNebs QID and PRN - Pulmonary following -- Encouraged incentive spirometer, OOB in chair throughout day, working w/ PT -- Thinks worsening acute respiratory distress in near future, does not think CXR findings treatable/reversible -- Started IV Solu Medrol - Head Librarian consulted on 08/08 for ?ARDS- does not think needs ICU at this time - continue to monitor, transfer to ICU if needed C. diff colitis, perforated jejunal bowel (suspected to result from chemo regimen) s/p colectomy, rectus sheath hematoma: - Monitoring on tele- no acute events - Surgical management as per surgery, POD #22- TPN completed on 07/29/17- currently on mechanical soft diet - Underlying severe protein malnutrition, albumin 1.3- boost BID - C.Diff + 07/12/17: Completed 9 days of PO Vancomycin on 07/21 - C. 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 on 07/23-- vascular surgery consulted- s/p AVR repair on 07/25/17 - Hypocalcemia w/ vitamin D level of 17.4: Ergocalciferol 50,000 q7d indefinitely + daily D3 2000 when patient resumes oral intake- recheck levels in 12 weeks - Calcitriol and CaCO3 Left hand cellulitis, ?reflex sympathetic dystrophy: - Initial MRI did not determine any osteomyelitis - ID consulted: -- Treated initially with Ertapenem/Daptomycin, then transitioned to Cefepime - treated 07/22- 07/30 -- Daptomycin started on 08/07 per ID recommendations- ID following- discontinued on 08/15 DMII: Pharmacy consulted for glycemic management Acute anemia- transfused a total of 8 u PRBCs: - Nephrology following- Epogen with dialysis - H&H- hgb 9.5 on 08/15 - Continue to follow H&H and transfuse PRN for hgb < 7 or symptomatic - Iron panel reviewed- nephrology holding on IV iron at this time HTN, HLD: - Furosemide 40 mg PO daily, Amlodipine 10 mg daily, Metoprolol 100 mg PO BID, Lisinopril 40 mg daily, Simvastatin 20 mg HS - Hydralazine 100 mg TID held- BPs well controlled at this time - Monitor I&Os and daily weights BPH: Tamsulosin 0.4 mg PO daily DVT Prophylaxis: Heparin SQ TID Code Status: LEVEL I, FULL Dispo: Discharge uncertain- PT/OT and CM following (Ledy Bhakta, BROCKC) I personally interviewed and examined the patient. I agree with history of present illness and physical exam mentioned above, I also performed my own history taking and examination. Past medical history and review of system has been obtained by myself I reviewed all pertinent labs and studies Reviewed current medications I discussed and formulated of the assessment and plan mentioned above with PA Miss Bhakta Please refer to the Summary mentioned below. General Appearance: Moderate acute distress Eyes: normal Sclerae, extraocular muscle intact ENT: hearing grossly normal Neck: supple Respiratory/Chest: Decreased air entry bilateral , mild respiratory distress, no accessory muscle use Cardiovascular: regular rate, rhythm, no murmur Abdomen: non tender, soft, no masses Extremities: no edema Neurologic/Psychiatric: Awake alert oriented times place and person moves all extremities sensation intact cranial nerves II-12 appear to be intact Skin: normal color, warm/dry, no rash 61-year-old unfortunate man with renal cancer status post excision currently on dialysis. Presented with abdominal pain and found to have incidental rectus sheath hematoma, patient was treated for multiple infections and was found to have C. difficile colitis . Currently her suspected left lower extremity cellulitis . Was treated for bilateral pneumonia . Without improvement in his pulmonary status Assessment C. difficile with perforated jejunal bowel Acute hypoxic respiratory failure Cecilia glabrata infection pleural fluid and ascitic fluid, treated Left hand cellulitis versus reflex sympathetic dystrophy Bilateral pneumonia, treated Metastatic renal cell carcinoma status post left nephrectomy currently on dialysis DMII: Pharmacy consulted for glycemic management Acute anemia- transfused a total of 8 u PRBCs, likely of chronic diseases HTN, HLD: plan: Agree with plan mentioned above by Ledy. CAT scan chest without contrast reviewed, mainly fluids but can not rule out infiltrate, Meanwhile continue same management DCed daptomycin and restarted caspofungin start 1200cc fluid restriction nurse paged me, patient wanted to change his code status to no cardiac compression , no cardioversion he will discuss with his family intubation Ananya Walker MD, [facility] hospitalist group (Ananya Ruiz MD)
--- NOTE | 2017-08-15 15:21 | Palliative Care Progress Note ---
Palliative Care Progress Note Date of Service Aug 15, 2017. Subjective Pt evaluation today including: conversation w/ patient, conversation w/ family , physical exam, chart review, conversation w/ fitness consultant, review of inpatient medication list Pain: well controlled Voiding: no voiding problems Met with Eulalia MORALES, Dieter Brown and Keli Gallardo to discuss pt's current condition , treatment options and goals of care. Review of Systems Constitutional: No fever Eyes: No discharge ENT: No hearing loss Respiratory: + shortness of breath, + dyspnea on exertion Cardiac: No edema Abdomen: + pain (RLQ and L sided surgical incision pain - improved per pt) Musculoskeletal: + problem reported (muscle atrophy) Male : No dysuria Neurologic: + weakness Psychiatric: No anxiety Endo: + fatigue Skin: + problem reported (L hand with decreased swelling and decreased erythema ) Objective Vital Signs Date Time Temp Pulse Resp B/P (MAP) Pulse Ox O2 Delivery O2 Flow Rate FiO2 08/15/17 14:20 95 18 89 Mask 15.0 08/15/17 12:00 91 Oxymask 15.0 08/15/17 11:02 36.6 106 20 180/87 (118) 92 Oxymask 15.0 08/15/17 08:00 36.6 101 22 171/78 (109) 93 Oxymask 15.0 08/15/17 08:00 93 Oxymask 15.0 08/15/17 07:05 87 18 94 Mask 15.0 08/15/17 04:18 37.0 95 18 155/72 (99) 93 BiPAP 08/15/17 04:00 93 BiPAP 15.0 08/15/17 02:29 97 60 08/15/17 02:28 95 20 97 BiPAP/CPAP 60 08/15/17 00:00 90 Oxymask 15.0 08/15/17 00:00 36.7 96 24 164/77 (106) 90 Oxymask 15.0 08/14/17 21:49 37.2 107 20 160/78 (105) 87 Oxymask 15.0 08/14/17 21:41 101 163/75 (104) 08/14/17 20:00 87 Oxymask 15.0 08/14/17 19:44 105 20 90 Mask 15.0 08/14/17 16:20 Oxymask 12.0 Mask 08/14/17 16:03 36.9 114 24 151/77 (101) 87 Oxymask 15.0 08/14/17 16:00 110 20 92 Mask 15.0 Physical Exam General Appearance: + mild distress (more SOB with conversation) Eyes: EOMI ENT: hearing grossly normal Neck: supple Respiratory/Chest: + decreased breath sounds, + crackles (L>R) Cardiovascular: regular rate, rhythm, no edema Abdomen: soft, + pertinent finding (less tender wtih palpation) Extremities: + pertinent finding (LE muscle atrophy) Neurologic/Psychiatric: + motor weakness Skin: + pertinent finding (nodular skin lesions on L hand) Laboratory Results Last 24 Hours Test 08/14/17 16:31 08/14/17 21:04 08/15/17 06:10 08/15/17 06:31 Bedside Glucose 93 mg/dl 111 mg/dl 231 mg/dl White Blood Count 21.07 K/uL Red Blood Count 3.14 M/uL Hemoglobin 9.5 g/dL Hematocrit 29.2 % Mean Corpuscular Volume 93.0 fL Mean Corpuscular Hemoglobin 30.3 pg Mean Corpuscular Hemoglobin Concent 32.5 g/dl Platelet Count 123 K/uL Mean Platelet Volume 10.8 fL RDW Standard Deviation 60.0 fL RDW Coefficient of Variation 17.7 % Nucleated RBC Absolute Count (auto) 0.50 K/uL Neutrophils % (Manual) 92.9 % Lymphocytes % (Manual) 3.5 % Monocytes % (Manual) 0.9 % Metamyelocytes % 0.9 % Myelocytes % 1.8 % Nucleated Red Blood Cells % 2.4 % Neutrophils # (Manual) 19.57 K/uL Total Absolute Neutrophils 19.57 K/uL Lymphocytes # (Manual) 0.74 K/uL Total Absolute Lymphocytes 0.74 K/uL Monocytes # (Manual) 0.19 K/uL Metamyelocytes # 0.19 K/uL Myelocytes # 0.38 K/uL Red Blood Cell Morphology Unremarkable Sodium Level 135 mmol/L Potassium Level 5.6 mmol/L Chloride Level 101 mmol/L Carbon Dioxide Level 25 mmol/L Anion Gap 9.0 mmol/L Blood Urea Nitrogen 68 mg/dl Creatinine 3.03 mg/dl Est Creatinine Clear Calc Drug Dose 24.7 ml/min Estimated GFR () 24.2 Estimated GFR (Non- 20.9 BUN/Creatinine Ratio 22.3 Random Glucose 228 mg/dl Calcium Level 9.6 mg/dl Total Bilirubin 0.5 mg/dl Aspartate Amino Transf (AST/SGOT) 32 U/L Alanine Aminotransferase (ALT/SGPT) 41 U/L Alkaline Phosphatase 274 U/L Total Protein 5.4 gm/dl Albumin 1.7 gm/dl Globulin 3.7 gm/dl Albumin/Globulin Ratio 0.5 Test 08/15/17 10:46 08/15/17 10:52 Potassium Level 4.9 mmol/L Bedside Glucose 294 mg/dl Assessment and Plan (1) Pain due to neoplasm Status: Chronic Assessment & Plan: Controlled on methadone - would offer prn oxy Q 4 hours - pt requests prn pain med with PT/OT and transfers (2) Cellulitis of left hand Status: Acute Assessment & Plan: Caspofungin continued for 7 more days (3) ESRD (end stage renal disease) on dialysis Status: Acute Assessment & Plan: Pt aggressively diuresed to determine if CXR worsening may be fluid - no significant change with diuresis (4) Hypoxemia requiring supplemental oxygen Status: Acute Assessment & Plan: Increased O2 requirement - CT of lungs appears worse, pt not a good candidate for bronch due to tenuous resp status (5) High risk medication use Status: Acute Assessment & Plan: On methadone - Caspofungin with little effect on methadone metabolism - no need for med adjustment Total time: 35 min with > 50% time spent at bedside with pt counseling regarding current POC Palliative Performance Scale: 30 % Continued [facility] stay due to: ambulation difficulties, multiple IV medications needed, other (still with high O2 requirement) Discharge planning: uncertain Counseling and Coordination Total time 45 min with > 50% of time spent on unit discussing prognosis and treatment options
--- NOTE | 2017-08-15 16:46 | ECHOCARDIOGRAM REPORT ---
*NOTICE TO RECEIVING [employer] This information is strictly Confidential and protected under [place] law. [place] law prohibits you from making any further disclosure of this information unless further disclosure is expressly permitted by the written consent of the person to whom it pertains or is authorized by law. A general authorization for the release of medical or other information is not sufficient for this purpose. Hospital accepts no responsibility if the information is made available to any other person, INCLUDING THE PATIENT. Interpretation Summary * Name: CHANO ANDERSON Study Date: 08/15/2017 10:24 AM BP: 171/78 mmHg * Patient Location: .2T\S\E221\S\1 HR: 101 * : 1955 (M/d/yyyy) Gender: Male Height: 70 in * Age: 61 yrs Ethnicity: CA Weight: 154 lb * Ordering Physician: Ananya Ruiz * Referring Physician: Falguni Lin * Performed By: Madi Gonzalez RCS * * Reason For Study: CHF * BSA: 1.9 m2 * -- Conclusions -- * 1. Normal LV size. Normal LV wall thickness. * 2. Normal LV systolic function. LVEF 60-65%. No regional wall motion abnormalities. * 3. Normal RV size and function. * 4. No significant valvular pathology. * 6. Compared with prior study on 10/28/2016: No significant change Procedure Details * A complete two-dimensional transthoracic echocardiogram was performed (2D, M-mode, Doppler and color flow Doppler). Left Ventricle * The left ventricle is grossly normal size. * There is normal left ventricular wall thickness. * Ejection Fraction = 60-65%. * No regional wall motion abnormalities noted. Right Ventricle * The right ventricle is grossly normal size. * The right ventricular systolic function is normal as assessed by tricuspid annular plane systolic excursion (TAPSE) (normal >1.5 cm). Atria * The left atrium is mildly dilated. * Right atrial size is normal. * No ASD detected; PFO is not assessed. Mitral Valve * The mitral valve is grossly normal. * There is no mitral valve stenosis. * There is trace mitral regurgitation. Tricuspid Valve * There is trace tricuspid regurgitation. * Right ventricular systolic pressure is elevated at 30-40mmHg. Aortic Valve * The aortic valve opens well. * The aortic valve is trileaflet. * No hemodynamically significant valvular aortic stenosis. * There is no significant aortic regurgitation. Pulmonic Valve * The pulmonary valve is inadequately visualized, but the Doppler data is adequate for interpretation. * Pulmonic stenosis is absent. * Trace pulmonic valvular regurgitation. Great Vessels * The aortic root and proximal ascending aorta are normal sized. Pericardium/Pleural * There is no pericardial effusion. Great Vessels * Normal inferior vena cava size and collapsability with sniff indicates a normal right atrial pressure of 3 mmHg MMode 2D Measurements and Calculations IVSd 1.1 cm IVSs 1.6 cm LVIDd 4.2 cm LVIDs 2.7 cm LVPWd 1.1 cm LVPWs 1.5 cm IVS/LVPW 0.94 FS 34.1 % EDV(Teich) 77.0 ml ESV(Teich) 28.2 ml EF(Teich) 63.4 % EDV(cubed) 72.2 ml ESV(cubed) 20.7 ml EF(cubed) 71.3 % % IVS thick 47.2 % % LVPW thick 34.9 % LV mass(C)d 153.8 grams LV mass(C)dI 82.3 grams/m\S\2 LV mass(C)s 148.1 grams LV mass(C)sI 79.3 grams/m\S\2 SV(Teich) 48.8 ml SI(Teich) 26.1 ml/m\S\2 SV(cubed) 51.5 ml SI(cubed) 27.6 ml/m\S\2 Ao root diam 3.7 cm Ao root area 10.5 cm\S\2 ACS 1.4 cm LA dimension 3.4 cm asc Aorta Diam 2.8 cm LA/Ao 0.92 LVAd ap4 38.5 cm\S\2 LVLd ap4 9.1 cm EDV(MOD-sp4) 133.0 ml LVAs ap4 19.6 cm\S\2 LVLs ap4 7.3 cm ESV(MOD-sp4) 43.0 ml EF(MOD-sp4) 67.7 % LVAd ap2 34.3 cm\S\2 LVLd ap2 8.9 cm EDV(MOD-sp2) 110.0 ml LVAs ap2 18.8 cm\S\2 LVLs ap2 7.0 cm ESV(MOD-sp2) 43.0 ml EF(MOD-sp2) 60.9 % SV(MOD-sp4) 90.0 ml SI(MOD-sp4) 48.2 ml/m\S\2 SV(MOD-sp2) 67.0 ml SI(MOD-sp2) 35.9 ml/m\S\2 Doppler Measurements and Calculations MV E max rafael 106.6 cm/sec MV A max rafael 124.8 cm/sec MV E/A 0.85 MV P1/2t max rafael 126.8 cm/sec MV P1/2t 43.6 msec MVA(P1/2t) 5.0 cm\S\2 MV dec slope 851.8 cm/sec\S\2 MV dec time 0.22 sec Ao V2 max 162.9 cm/sec Ao max PG 10.6 mmHg Ao max PG (full) 4.7 mmHg LV V1 max PG 5.9 mmHg LV V1 max 121.7 cm/sec PA V2 max 158.1 cm/sec PA max PG 10.0 mmHg PI max rafael 198.9 cm/sec PI max PG 16.0 mmHg PI dec slope 234.4 cm/sec\S\2 PI P1/2t 248.5 msec TR max rafael 244.5 cm/sec
--- NOTE | 2017-08-15 17:24 | Pulmonology Progress Note ---
Pulmonary Progress Note Date of Service Aug 15, 2017. Attending Dr. Askew Subjective The patient continued to have increasing shortness of breath, continued to have hypoxia requiring high flow oxygen. He did not have any chest pain. No events overnight. Remains stable. Extremely deconditioned. Objective Vital Signs - as noted below Laboratory Data - as noted below Physical Exam: General - NAD Eyes - No icterus, gaze conjugate ENT - Mucosa moist, no lesions or candidiasis. Oxymask in place Neck - Supple, No JVD Lungs - The lungs continue to be decreased but overall effort is improved Heart - Regular, rate controlled Abdomen - Soft, NT, ND, BS present Extremities - some edema of right upper arm but good radial pulses in place. Bilateral edema to the feet and lower legs, pedal pulses intact. Neuro - A&OX3 08/14/2017, his exam revealed vital signs are borderline including tachycardia of 120 normal sinus rhythm, he does have A saturation registering between 77-88% , significant edema in the periphery, abdomen postop, heart examination S1-S2 with tachycardic. Neurologically he's intact. 08/15/2017, the patient physical exam revealed stable hemodynamically, heart rate is not tachycardic today, also saturation is 87% on 12 L of oxygen, no stridor, bilateral crackles, abdomen is benign, S1-S2 regular rate and rhythm, edema noted in the left hand. Assessment & Plan ACUTE HYPOXIC RESPIRATORY FAILURE * Thoracentesis on the right 07/30/17 * Bed put in chair position but should continue to emphasize out of bed to bedside chair as tolerated * Physical therapy required to at least sit patient on the edge of bed and dangle legs. Patient motivated and doing active range of motion exercises in bed * Patient may with cellulitis of the right hand and arm. Cultures from the operating room grew out Cecilia glabrata - caspofungin was added by ID * Continue incentive spirometry, flutter valve, and BiPAP for oxygenation and to combat atelectasis PLEURAL EFFUSION * Status post thoracentesis 07/30/[address] Clark * Pathology and microbiology with yeast but no malignant cells * No redevelopment of effusion on chest x-ray 08/02/17 POSSIBLE CRYPTOGENIC ORGANIZING PNEUMONIA * Steroids were started 07/06/17 * Continue prolonged taper * ID treating yeast in pleural fluid with caspofungin. We will defer duration to ID QUESTION OF PULMONARY EMBOLI * CTA with no evidence of pulmonary embolus * Lower extremity duplex was negative for DVT * Continue DVT prophylaxis with heparin 5000 units subcutaneous every 8 hours DVT PROPHYLAXIS * Continue heparin 5000 units subcutaneously every eight hours * Need to encourage out of bed to chair * Need to encourage physical therapy Thank you for including us in the care of this patient. Please refer to Dr. Vines's addendum for further recommendations. 08/14/2017, I have evaluated the patient undergarment of his condition. The patient is diagnosed with renal cell carcinoma with metastasis. The patient also had a history of COPD in the past. Pleural effusion was removed. I have performed an ultrasound of the bedside as well. The following is my assessment: #1 the patient remains in ARDS by definition. The patient PF ratio was less than 150. #2 anasarca due to hypoalbuminemia and renal failure. #3 end-stage renal disease on dialysis. #4 I have performed bedside ultrasound which I do not find significant pleural effusion on the right side note on the left side. He does have minimal ascites as well. He due to anasarca was difficult study. 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 I will treat the patient empirically with full dose of steroids using Methylprednisolone 1 mg /kg per dose every 6 hours. #2 would continue with the current antibiotics. #3 although the patient does have Cecilia glabrata, adding steroids to the current dose that he was on for the past several days would not alter his fungal infection. #[address] with the patient undergarment of his goal of care , the patient is undecided, I encouraged the patient to make a decision about DO NOT RESUSCITATE, in my opinion, it would be fruitless to perform CPR on this patient should he go to cardiac arrest. We'll follow. Assessment and plan: 08/15/2017, #1 advanced renal cell carcinoma with metastasis. #2 bilateral diffuse pneumonitis which could be related to cytokines release versus metastatic disease versus less likely infectious disease. #3 no evidence of pleural effusion. Plan: #1 continue with the steroids. #2 continue with high flow oxygen. #3 infectious disease note appreciated, continue with caspofungin. #4 bronchodilators. #5 the patient is not a candidate for bronchoscopy due to his tenuous respiratory status. #6 agree with the rest of his plan. Appreciate all the consults and palliative care input. We'll follow. Data Medications: Current Inpatient Medications Medications (Trade) Dose Ordered Sig/Edward Route Start Time Stop Time Status Last Admin Dose Admin Hydralazine HCl (HydrALAZINE INJ) 5 mg Q4 PRN IV. 07/21/17 17:15 08/20/17 17:14 Future Hold 07/25/17 23:45 5 MG Hydralazine HCl (HydrALAZINE INJ) 5 mg TID IV. 07/21/17 21:00 08/20/17 20:59 Future Hold 07/30/17 08:33 5 MG Miscellaneous Information (Consult Glycemic Management Pharmacy) 1 ea UD PRN N/A 07/23/17 13:14 08/22/17 13:13 Insulin Aspart (novoLOG ASPART) SLIDING SCALE G... ACHS SC 07/27/17 11:30 08/26/17 11:29 08/15/17 13:08 13 UNITS Ipratropium [place] (Atrovent 0.02% 0.5MG/2.5ML Neb) 0.5 mg Q6R INH 07/29/17 09:00 08/28/17 08:59 08/15/17 14:20 0.5 MG Levalbuterol (Xopenex 0.63 Mg/ 3 Ml Neb) 0.63 mg Q6R INH 07/29/17 09:00 08/28/17 08:59 08/15/17 14:20 0.63 MG Metoprolol Tartrate (Lopressor Tab) 100 mg BID PO 07/29/17 21:00 08/28/17 20:59 08/15/17 09:05 100 MG Amlodipine Besylate (Norvasc Tab) 10 mg QAM PO 07/30/17 09:00 08/29/17 08:59 08/15/17 09:06 10 MG Diphenhydramine HCl (Benadryl Inj) 50 mg 4XDQ4H PRN IV 07/30/17 13:30 08/29/17 13:29 Heparin Sodium (Porcine) (Heparin Sq 5000 Unit/0.5ml) 5,000 unit Q8 SQ 07/30/17 22:00 08/29/17 21:59 08/15/17 13:08 5,000 UNIT Furosemide (Lasix Tab) 40 mg QAM PO 08/01/17 09:00 08/31/17 08:59 08/15/17 09:07 40 MG Calcium Carbonate (Tums Chew Tab) 500 mg TID PO 08/02/17 09:00 09/01/17 08:59 08/15/17 13:04 500 MG Enteral Nutritional Formula (Boost Glucose Control) 1 can BID@1000,2100 PO 08/01/17 21:00 08/31/17 20:59 08/15/17 09:14 1 CAN Vitamin B Complex/ Vit C/Folic Acid (Nephrocaps) 1 cap QAM PO 08/07/17 09:00 09/06/17 08:59 08/15/17 09:05 1 CAP Fentanyl (Duragesic Patch) 25 mcg Q72H TD 08/07/17 18:00 08/21/17 17:59 08/13/17 17:46 25 MCG Miscellaneous (Fentanyl Patch Remove & Waste) 1 ea Q72H N/A 08/10/17 17:59 09/09/17 17:58 08/13/17 17:47 1 EA Miscellaneous Information (Check Fentanyl Patch Placement) 1 ea QS N/A 08/08/17 00:00 09/07/17 00:00 08/15/17 16:25 1 EA Polyethylene (Miralax Powder Packet) 17 gm DAILY PRN PO 08/09/17 07:00 09/08/17 06:59 Methadone HCl (Dolophine Tab) 20 mg BID PO 08/08/17 23:00 08/22/17 22:59 08/15/17 09:04 20 MG Ergocalciferol (Vitamin D Cap) 50,000 interunit We@0900 PO 08/09/17 10:30 09/08/17 10:29 08/09/17 14:07 50,000 INTERUNIT Polyethylene (Miralax Powder Packet) 17 gm DAILY PO 08/09/17 13:00 09/08/17 12:59 08/15/17 09:03 17 GM Heparin Sodium (Porcine) (Heparin 100 Unit/ml 5ml Flush) 5 ml PRN PRN IV 08/09/17 13:00 09/08/17 12:59 08/15/17 16:29 5 ML Oxycodone HCl (Oxycontin Tab) 10 mg TID PRN PO 08/11/17 11:30 08/25/17 11:29 08/15/17 16:24 10 MG Simvastatin (Zocor Tab) 20 mg PM PO 08/11/17 21:00 09/10/17 20:59 08/14/17 21:45 20 MG Tamsulosin HCl (Flomax Cap) 0.4 mg HS PO 08/11/17 21:00 09/10/17 20:59 08/14/17 21:45 0.4 MG Ethyl Chloride (Ethyl Chloride Aerosol) 1 ml PRN PRN EXT 08/14/17 17:00 09/13/17 16:59 Methylprednisolone Sodium Succinate 60 mg/Syringe 0.96 ml @ 1.5 mls/min Q6H IV 08/14/17 18:00 09/13/17 17:59 08/15/17 13:04 1.5 MLS/MIN Insulin Human NPH (novoLIN-N NPH) 15 units QDB SC 08/15/17 07:30 09/14/17 07:29 08/15/17 09:11 15 UNITS Insulin Human NPH (novoLIN-N NPH) 8 units QDD SC 08/15/17 16:45 09/14/17 16:44 Caspofungin 50 mg/ Sodium Chloride 260 ml @ 250 mls/hr DAILY IV 08/16/17 09:00 08/23/17 08:59 Enteral Nutritional Formula (Prosource No Carb) 30 ml 3XDQ4 PO 08/15/17 12:00 09/14/17 11:59 08/15/17 16:25 30 ML I & O: 24-Hour Column 08/16/17 07:59 Intake Total 490 ml Output Total 100 ml Balance 390 ml Vital Signs: Date Time Temp Pulse Resp B/P (MAP) Pulse Ox O2 Delivery O2 Flow Rate FiO2 08/15/17 16:33 36.6 93 24 152/73 (99) 93 Oxymask 15.0 08/15/17 14:20 95 18 89 Mask 15.0 08/15/17 12:00 91 Oxymask 15.0 08/15/17 11:02 36.6 106 20 180/87 (118) 92 Oxymask 15.0 08/15/17 08:00 36.6 101 22 171/78 (109) 93 Oxymask 15.0 08/15/17 08:00 93 Oxymask 15.0 08/15/17 07:05 87 18 94 Mask 15.0 08/15/17 04:18 37.0 95 18 155/72 (99) 93 BiPAP 08/15/17 04:00 93 BiPAP 15.0 08/15/17 02:29 97 60 08/15/17 02:28 95 20 97 BiPAP/CPAP 60 08/15/17 00:00 90 Oxymask 15.0 08/15/17 00:00 36.7 96 24 164/77 (106) 90 Oxymask 15.0 08/14/17 21:49 37.2 107 20 160/78 (105) 87 Oxymask 15.0 08/14/17 21:41 101 163/75 (104) 08/14/17 20:00 87 Oxymask 15.0 08/14/17 19:44 105 20 90 Mask 15.0 Laboratory Results: Last 24 Hours Test 08/14/17 21:04 08/15/17 06:10 08/15/17 06:31 08/15/17 10:46 Bedside Glucose 111 mg/dl 231 mg/dl White Blood Count 21.07 K/uL Red Blood Count 3.14 M/uL Hemoglobin 9.5 g/dL Hematocrit 29.2 % Mean Corpuscular Volume 93.0 fL Mean Corpuscular Hemoglobin 30.3 pg Mean Corpuscular Hemoglobin Concent 32.5 g/dl Platelet Count 123 K/uL Mean Platelet Volume 10.8 fL RDW Standard Deviation 60.0 fL RDW Coefficient of Variation 17.7 % Nucleated RBC Absolute Count (auto) 0.50 K/uL Neutrophils % (Manual) 92.9 % Lymphocytes % (Manual) 3.5 % Monocytes % (Manual) 0.9 % Metamyelocytes % 0.9 % Myelocytes % 1.8 % Nucleated Red Blood Cells % 2.4 % Neutrophils # (Manual) 19.57 K/uL Total Absolute Neutrophils 19.57 K/uL Lymphocytes # (Manual) 0.74 K/uL Total Absolute Lymphocytes 0.74 K/uL Monocytes # (Manual) 0.19 K/uL Metamyelocytes # 0.19 K/uL Myelocytes # 0.38 K/uL Red Blood Cell Morphology Unremarkable Sodium Level 135 mmol/L Potassium Level 5.6 mmol/L 4.9 mmol/L Chloride Level 101 mmol/L Carbon Dioxide Level 25 mmol/L Anion Gap 9.0 mmol/L Blood Urea Nitrogen 68 mg/dl Creatinine 3.03 mg/dl Est Creatinine Clear Calc Drug Dose 24.7 ml/min Estimated GFR () 24.2 Estimated GFR (Non- 20.9 BUN/Creatinine Ratio 22.3 Random Glucose 228 mg/dl Calcium Level 9.6 mg/dl Total Bilirubin 0.5 mg/dl Aspartate Amino Transf (AST/SGOT) 32 U/L Alanine Aminotransferase (ALT/SGPT) 41 U/L Alkaline Phosphatase 274 U/L Total Protein 5.4 gm/dl Albumin 1.7 gm/dl Globulin 3.7 gm/dl Albumin/Globulin Ratio 0.5 Test 08/15/17 10:52 08/15/17 16:10 Bedside Glucose 294 mg/dl 214 mg/dl
[2017-08-15] MEDS: TAMSULOSIN HCL 0.4 MG CAP PO SCH (20:34)
[2017-08-15] MEDS: SIMVASTATIN 20 MG TAB PO SCH (20:35)
[2017-08-16] VITALS (29 sets, daily range): BP systolic 66–163; BP diastolic 40–83; PULSE 82–114; TEMP 36.5–37.2; O2SAT 83–98
[2017-08-16] MEDS: METHYLPREDNISOLONE IV 60 MG in SYRINGE 0 ML IV SCH ×4 (00:37→17:51)
[2017-08-16] MEDS: OXYCODONE HCL 10 MG TABCR (OXYCONTIN) PO PRN ×2 (00:46→08:26)
[2017-08-16] MEDS: LEVALBUTEROL 0.63MG/3 ML NEB INH SCH ×4 (01:50→20:21)
[2017-08-16] MEDS: IPRATROPIUM BROMIDE NEB SOLN 0.02% 2.5 ML VIAL INH SCH ×4 (01:50→20:21)
[2017-08-16] MEDS: HEPARIN SOD 5000 UNIT/0.5 ML CARP SQ SCH ×3 (05:31→21:25)
[2017-08-16 06:27] LABS: HEMATOCRIT 23.4 % (42-52); HEMOGLOBIN 7.7 g/dL (14.0-18.0); MEAN CELL VOLUME 91.4 fL (80-100); MEAN CORPUSCULAR HEMOGLOBIN 30.1 pg (25-34); MEAN CORPUSCULAR HGB CONC 32.9 g/dl (32-36); MEAN PLATELET VOLUME 11.8 fL (7.4-10.4); NUCLEATED RED BLOOD CELL ABS 0.57 K/uL (0-0); PLATELET COUNT 129 K/uL (130-400); RED CELL DISTRIBUTION WIDTH CV 17.4 % (11.5-14.5); WHITE BLOOD COUNT 27.74 K/uL (4.8-10.8)
[2017-08-16 06:53] LABS: CALCIUM 9.5 mg/dl (8.5-10.1); CREATININE 3.66 mg/dl (0.60-1.40); POTASSIUM 5.2 mmol/L (3.5-5.1)
[2017-08-16] MEDS: CHECK FENTANYL PATCH PLACEMENT SCH ×3 (07:57→16:31)
[2017-08-16] MEDS: BOOST GLUCOSE CONTROL PO SCH ×2 (07:57→17:28)
[2017-08-16] MEDS: PROSOURCE NOCARB 30ML/PKT PO SCH ×3 (07:58→16:29)
[2017-08-16] MEDS: NEPHROCAPS PO SCH (07:59)
[2017-08-16] MEDS: CALCIUM CARBONATE 500 MG CHEWABLE PO SCH ×3 (07:59→21:22)
[2017-08-16] MEDS: FUROSEMIDE 40 MG TAB PO SCH (07:59)
[2017-08-16] MEDS: ERGOCALCIFEROL 50,000 INTER.UNIT CAP PO SCH (08:00)
[2017-08-16] MEDS: POLYETHYLENE (MIRALAX) 17 GM PACK PO SCH (08:00)
[2017-08-16] MEDS: INSULIN ASPART 100 UNITS/ML 3 ML PEN SC SCH ×4 (08:06→20:50)
[2017-08-16] MEDS: CASPOFUNGIN INJ 50 MG in SODIUM CHLORIDE 0.9% 250ML 250 ML IV SCH (08:10)
[2017-08-16] MEDS: METHADONE HCL 10 MG TAB PO SCH ×2 (08:12→21:22)
[2017-08-16] MEDS ORDERED: INSULIN GLARGINE SOLOSTAR 100 UNITS/ML 3 ML PEN SC SCH (09:00)
--- NOTE | 2017-08-16 10:27 | Nephrology Progress Note ---
Nephrology Progress Note Date of Service Aug 16, 2017. Chief Complaint Follow-up for end-stage renal disease on hemodialysis. Roland Causey Was seen and examined in his room this morning. Complain of right-sided rib pain. Still requiring 10 liters oxygen via musk. Blood pressure and volume status stable. Hemoglobin dropped to 7.7. Review of Systems A complete review of systems was performed. Pertinent positives are noted above. All other systems are negative. Vital Signs Last 8 Hrs Date Time Temp Pulse Resp B/P (MAP) Pulse Ox O2 Delivery O2 Flow Rate FiO2 08/16/17 07:04 82 20 96 Mask 15.0 08/16/17 04:03 36.5 86 18 140/68 (92) 97 Oxymask 15.0 60 92 08/16/17 04:00 BiPAP 60 08/16/17 03:29 36.5 86 18 140/68 (92) 97 Last Recorded Weight Weight (Kilograms): 69.900 Physical Exam GENERAL: Middle-aged male, AAA x 3, pleasant, pale, ill-appearing, not in any distress. NECK: Supple, no JVD. RESPIRATORY: Normal breathing efforts, no accessory muscle use, overall decreased BS CARDIOVASCULAR: S1, S2 normal, rate rhythm regular. EXTREMITY: no edema NEURO: speech fluent. PSYCHIATRY: Normal mood and judgment Family History Cervical cancer Diabetes mellitus Heart disease Hypertension Myocardial infarction Pancreatic cancer Prostate cancer Negative for CKD/ESRD Social History Smokeless Tobacco Use: No Alcohol Use: none Drug Use: none Marital Status: single Housing Status: lives alone Occupation: disabled Single, retired. Formerly worked for [employer]. Never a smoker. Laboratory Results Past 24 Hours 08/16/17 06:08 08/15/17 10:46 08/16/17 06:08 Test 08/15/17 10:52 08/15/17 16:10 08/15/17 20:45 08/16/17 00:18 Bedside Glucose 294 mg/dl (70-99) 214 mg/dl (70-99) 255 mg/dl (70-99) 211 mg/dl (70-99) Test 08/16/17 06:08 08/16/17 06:32 Red Blood Count 2.56 M/uL (4.7-6.1) Mean Corpuscular Volume 91.4 fL (80-100) Mean Corpuscular Hemoglobin 30.1 pg (25-34) Mean Corpuscular Hemoglobin Concent 32.9 g/dl (32-36) RDW Standard Deviation 57.0 fL (36.4-46.3) RDW Coefficient of Variation 17.4 % (11.5-14.5) Mean Platelet Volume 11.8 fL (7.4-10.4) Nucleated RBC Absolute Count (auto) 0.57 K/uL (0-0) Nucleated Red Blood Cells % 2.0 % Anion Gap 11.0 mmol/L (3-11) Est Creatinine Clear Calc Drug Dose 20.4 ml/min Estimated GFR () 19.3 Estimated GFR (Non- 16.6 BUN/Creatinine Ratio 28.6 (10-20) Calcium Level 9.5 mg/dl (8.5-10.1) Bedside Glucose 186 mg/dl (70-99) Allergies Coded Allergies: Iodinated Diagnostic Agents (Verified Allergy, Unknown, oil based, severe headaches, 06/20/17) EVENT OCCURED IN 1971, PT STATES HE HAS HAD 3 DIFFERENT WATER BASED IVP DYES WITH NO ISSUE Medications Current Inpatient Medications Medications (Trade) Dose Ordered Sig/Edward Route Start Time Stop Time Status Last Admin Dose Admin Hydralazine HCl (HydrALAZINE INJ) 5 mg Q4 PRN IV. 07/21/17 17:15 08/20/17 17:14 Future Hold 07/25/17 23:45 5 MG Hydralazine HCl (HydrALAZINE INJ) 5 mg TID IV. 07/21/17 21:00 08/20/17 20:59 Future Hold 07/30/17 08:33 5 MG Miscellaneous Information (Consult Glycemic Management Pharmacy) 1 ea UD PRN N/A 07/23/17 13:14 08/22/17 13:13 Insulin Aspart (novoLOG ASPART) SLIDING SCALE G... ACHS SC 07/27/17 11:30 08/26/17 11:29 08/16/17 08:06 10 UNITS Ipratropium [place] (Atrovent 0.02% 0.5MG/2.5ML Neb) 0.5 mg Q6R INH 07/29/17 09:00 08/28/17 08:59 08/16/17 07:03 0.5 MG Levalbuterol (Xopenex 0.63 Mg/ 3 Ml Neb) 0.63 mg Q6R INH 07/29/17 09:00 08/28/17 08:59 08/16/17 07:03 0.63 MG Metoprolol Tartrate (Lopressor Tab) 100 mg BID PO 07/29/17 21:00 08/28/17 20:59 08/15/17 20:33 100 MG Amlodipine Besylate (Norvasc Tab) 10 mg QAM PO 07/30/17 09:00 08/29/17 08:59 08/15/17 09:06 10 MG Diphenhydramine HCl (Benadryl Inj) 50 mg 4XDQ4H PRN IV 07/30/17 13:30 08/29/17 13:29 Heparin Sodium (Porcine) (Heparin Sq 5000 Unit/0.5ml) 5,000 unit Q8 SQ 07/30/17 22:00 08/29/17 21:59 08/16/17 05:31 5,000 UNIT Furosemide (Lasix Tab) 40 mg QAM PO 08/01/17 09:00 08/31/17 08:59 08/16/17 07:59 40 MG Calcium Carbonate (Tums Chew Tab) 500 mg TID PO 08/02/17 09:00 09/01/17 08:59 08/16/17 07:59 500 MG Vitamin B Complex/ Vit C/Folic Acid (Nephrocaps) 1 cap QAM PO 08/07/17 09:00 09/06/17 08:59 08/16/17 07:59 1 CAP Fentanyl (Duragesic Patch) 25 mcg Q72H TD 08/07/17 18:00 08/21/17 17:59 08/13/17 17:46 25 MCG Miscellaneous (Fentanyl Patch Remove & Waste) 1 ea Q72H N/A 08/10/17 17:59 09/09/17 17:58 08/13/17 17:47 1 EA Miscellaneous Information (Check Fentanyl Patch Placement) 1 ea QS N/A 08/08/17 00:00 09/07/17 00:00 08/16/17 07:57 1 EA Polyethylene (Miralax Powder Packet) 17 gm DAILY PRN PO 08/09/17 07:00 09/08/17 06:59 Methadone HCl (Dolophine Tab) 20 mg BID PO 08/08/17 23:00 08/22/17 22:59 08/16/17 08:12 20 MG Ergocalciferol (Vitamin D Cap) 50,000 interunit We@0900 PO 08/09/17 10:30 09/08/17 10:29 08/16/17 08:00 50,000 INTERUNIT Polyethylene (Miralax Powder Packet) 17 gm DAILY PO 08/09/17 13:00 09/08/17 12:59 08/16/17 08:00 17 GM Heparin Sodium (Porcine) (Heparin 100 Unit/ml 5ml Flush) 5 ml PRN PRN IV 08/09/17 13:00 09/08/17 12:59 08/16/17 06:10 5 ML Oxycodone HCl (Oxycontin Tab) 10 mg TID PRN PO 08/11/17 11:30 08/25/17 11:29 08/16/17 08:26 10 MG Simvastatin (Zocor Tab) 20 mg PM PO 08/11/17 21:00 09/10/17 20:59 08/15/17 20:35 20 MG Tamsulosin HCl (Flomax Cap) 0.4 mg HS PO 08/11/17 21:00 09/10/17 20:59 08/15/17 20:34 0.4 MG Ethyl Chloride (Ethyl Chloride Aerosol) 1 ml PRN PRN EXT 08/14/17 17:00 09/13/17 16:59 Methylprednisolone Sodium Succinate 60 mg/Syringe 0.96 ml @ 1.5 mls/min Q6H IV 08/14/17 18:00 09/13/17 17:59 08/16/17 05:30 1.5 MLS/MIN Caspofungin 50 mg/ Sodium Chloride 260 ml @ 250 mls/hr DAILY IV 08/16/17 09:00 08/23/17 08:59 08/16/17 08:10 250 MLS/HR Enteral Nutritional Formula (Prosource No Carb) 30 ml 3XDQ4 PO 08/15/17 12:00 09/14/17 11:59 08/16/17 07:58 30 ML Enteral Nutritional Formula (Boost Glucose Control) 1 can BIDM PO 08/16/17 07:30 09/15/17 07:29 08/16/17 07:57 1 CAN Insulin Glargine (Lantus Solostar Pen) 25 units QAM SC 08/16/17 09:00 09/15/17 08:59 08/16/17 08:23 25 UNITS Impression (1) Cellulitis of left hand (2) ESRD (end stage renal disease) on dialysis (3) Renal cell carcinoma (4) Anemia (5) Diabetes type 2, controlled Mr. Christy had metastatic RCCA. He underwent left nephrectomy 2015. He did not tolerate Sutent due to high grade proteinuria. Opdivo caused arthralgia, colitis and possible pneumonitis. He was most recently treated w/ Cabometyx. 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 Colonic reanastamosis was performed at the time of surgery. The patient has a complex medical history including persistent soft tissue infection of the left hand, C. Difficile colitis, metastatic RCCA, interstitial lung disease requiring steroid therapy, dc glabrata infection of pleural and peritoneal fluid Mr. Christy's dialysis has been complicated by prolonged bleeding from the AVF following treatment. 07/23 doppler study revealed a high grade venous outflow stenosis. He required fistulagram and coil embolization 07/25/16. Recommendations --hemodialysis this morning as his regular schedule, aim for UF as tolerated --will add 1 unit PRBC during dialysis --avoid IV fluids, continue on renal diet, dose medications for GFR less than 10 --overall prognosis guarded Will follow
--- NOTE | 2017-08-16 13:17 | Hospitalist Progress Note ---
Hospitalist Progress Note Date of Service Aug 16, 2017. (Ledy Bhakta ., PA-C) Subjective Pt evaluation today including: conversation w/ patient, physical exam, lab review, review of inpatient medication list Voiding: no voiding problems Patient sitting in bed. Feeling well. No SOB. Eating and drinking OK. +BMs. Pain is well controlled. Code status changed to ventilation only, NO CPR/CARDIOVERSION. Wants to discuss further with family before changing again. Talked w/ palliative care today- considering palliative care but not ready to make discussion. Patient denies any fever, chills, sweats, lightheadedness, dizziness, vision changes, CP, palpitations, edema, SOB, wheezing, cough, abdominal pain, nausea, vomiting, diarrhea, urinary symptoms, melena, numbness/tingling, weakness, muscle/joint pain, anxiety/depression, active bleeding, or new skin discoloration/changes. (Ledy Bhakta ., PA-C) Medications Current Inpatient Medications Medications (Trade) Dose Ordered Sig/Edward Route Start Time Stop Time Status Last Admin Dose Admin Hydralazine HCl (HydrALAZINE INJ) 5 mg Q4 PRN IV. 07/21/17 17:15 08/20/17 17:14 Future Hold 07/25/17 23:45 5 MG Hydralazine HCl (HydrALAZINE INJ) 5 mg TID IV. 07/21/17 21:00 08/20/17 20:59 Future Hold 07/30/17 08:33 5 MG Miscellaneous Information (Consult Glycemic Management Pharmacy) 1 ea UD PRN N/A 07/23/17 13:14 08/22/17 13:13 Insulin Aspart (novoLOG ASPART) SLIDING SCALE G... ACHS SC 07/27/17 11:30 08/26/17 11:29 08/16/17 11:21 4 UNITS Ipratropium [place] (Atrovent 0.02% 0.5MG/2.5ML Neb) 0.5 mg Q6R INH 07/29/17 09:00 08/28/17 08:59 08/16/17 07:03 0.5 MG Levalbuterol (Xopenex 0.63 Mg/ 3 Ml Neb) 0.63 mg Q6R INH 07/29/17 09:00 08/28/17 08:59 08/16/17 07:03 0.63 MG Metoprolol Tartrate (Lopressor Tab) 100 mg BID PO 07/29/17 21:00 08/28/17 20:59 08/15/17 20:33 100 MG Amlodipine Besylate (Norvasc Tab) 10 mg QAM PO 07/30/17 09:00 08/29/17 08:59 08/15/17 09:06 10 MG Diphenhydramine HCl (Benadryl Inj) 50 mg 4XDQ4H PRN IV 07/30/17 13:30 08/29/17 13:29 Heparin Sodium (Porcine) (Heparin Sq 5000 Unit/0.5ml) 5,000 unit Q8 SQ 07/30/17 22:00 08/29/17 21:59 08/16/17 05:31 5,000 UNIT Furosemide (Lasix Tab) 40 mg QAM PO 08/01/17 09:00 08/31/17 08:59 08/16/17 07:59 40 MG Calcium Carbonate (Tums Chew Tab) 500 mg TID PO 08/02/17 09:00 09/01/17 08:59 08/16/17 07:59 500 MG Vitamin B Complex/ Vit C/Folic Acid (Nephrocaps) 1 cap QAM PO 08/07/17 09:00 09/06/17 08:59 08/16/17 07:59 1 CAP Fentanyl (Duragesic Patch) 25 mcg Q72H TD 08/07/17 18:00 08/21/17 17:59 08/13/17 17:46 25 MCG Miscellaneous (Fentanyl Patch Remove & Waste) 1 ea Q72H N/A 08/10/17 17:59 09/09/17 17:58 08/13/17 17:47 1 EA Miscellaneous Information (Check Fentanyl Patch Placement) 1 ea QS N/A 08/08/17 00:00 09/07/17 00:00 08/16/17 07:57 1 EA Polyethylene (Miralax Powder Packet) 17 gm DAILY PRN PO 08/09/17 07:00 09/08/17 06:59 Methadone HCl (Dolophine Tab) 20 mg BID PO 08/08/17 23:00 08/22/17 22:59 08/16/17 08:12 20 MG Ergocalciferol (Vitamin D Cap) 50,000 interunit We@0900 PO 08/09/17 10:30 09/08/17 10:29 08/16/17 08:00 50,000 INTERUNIT Polyethylene (Miralax Powder Packet) 17 gm DAILY PO 08/09/17 13:00 09/08/17 12:59 08/16/17 08:00 17 GM Heparin Sodium (Porcine) (Heparin 100 Unit/ml 5ml Flush) 5 ml PRN PRN IV 08/09/17 13:00 09/08/17 12:59 08/16/17 06:10 5 ML Oxycodone HCl (Oxycontin Tab) 10 mg TID PRN PO 08/11/17 11:30 08/25/17 11:29 08/16/17 08:26 10 MG Simvastatin (Zocor Tab) 20 mg PM PO 08/11/17 21:00 09/10/17 20:59 08/15/17 20:35 20 MG Tamsulosin HCl (Flomax Cap) 0.4 mg HS PO 08/11/17 21:00 09/10/17 20:59 08/15/17 20:34 0.4 MG Ethyl Chloride (Ethyl Chloride Aerosol) 1 ml PRN PRN EXT 08/14/17 17:00 09/13/17 16:59 Methylprednisolone Sodium Succinate 60 mg/Syringe 0.96 ml @ 1.5 mls/min Q6H IV 08/14/17 18:00 09/13/17 17:59 08/16/17 11:21 1.5 MLS/MIN Caspofungin 50 mg/ Sodium Chloride 260 ml @ 250 mls/hr DAILY IV 08/16/17 09:00 08/23/17 08:59 08/16/17 08:10 250 MLS/HR Enteral Nutritional Formula (Prosource No Carb) 30 ml 3XDQ4 PO 08/15/17 12:00 09/14/17 11:59 08/16/17 11:23 30 ML Enteral Nutritional Formula (Boost Glucose Control) 1 can BIDM PO 08/16/17 07:30 09/15/17 07:29 08/16/17 07:57 1 CAN Insulin Glargine (Lantus Solostar Pen) 25 units QAM SC 08/16/17 09:00 09/15/17 08:59 08/16/17 08:23 25 UNITS (Ledy Bhakta PA-C) Objective Vital Signs Date Time Temp Pulse Resp B/P (MAP) Pulse Ox O2 Delivery O2 Flow Rate FiO2 08/16/17 12:30 89 95/61 08/16/17 12:15 91 119/62 08/16/17 12:00 Oxymask 08/16/17 12:00 97 145/70 08/16/17 11:45 87 141/56 08/16/17 10:57 36.7 91 20 149/71 (97) 91 Oxymask 15.0 08/16/17 09:02 36.7 89 20 156/72 (100) 92 Oxymask 15.0 08/16/17 08:00 93 Oxymask 08/16/17 07:04 82 20 96 Mask 15.0 08/16/17 04:03 36.5 86 18 140/68 (92) 97 Oxymask 15.0 60 92 08/16/17 04:00 BiPAP 60 08/16/17 03:29 36.5 86 18 140/68 (92) 97 08/16/17 01:50 85 98 60 08/16/17 01:50 85 20 98 BiPAP/CPAP 60 08/16/17 01:14 100 94 60 08/16/17 00:05 37.0 92 18 163/83 (109) 91 08/16/17 00:00 Oxymask 15.0 08/15/17 20:31 36.5 87 18 161/73 (102) 91 Oxymask 15.0 08/15/17 20:00 Oxymask 15.0 08/15/17 19:35 95 20 94 Mask 15.0 08/15/17 16:33 36.6 93 24 152/73 (99) 93 Oxymask 15.0 08/15/17 16:00 Oxymask 15.0 08/15/17 16:00 Oxymask 15.0 60 08/15/17 14:20 95 18 89 Mask 15.0 (Ledy Bhakta, CHRISTEN-C) Physical Exam General Appearance: no apparent distress, + pertinent finding (OxyMask ) Eyes: normal inspection, PERRL ENT: hearing grossly normal Neck: supple Respiratory/Chest: lungs clear, no respiratory distress, no accessory muscle use Cardiovascular: regular rate, rhythm Abdomen: normal bowel sounds, non tender, soft Extremities: no calf tenderness, + swelling (+1 pitting edema of bilateral lower extremities ), + pertinent finding (muscle wasting of bilateral lower extremities ) Neurologic/Psychiatric: alert, normal mood/affect, oriented x 3 Skin: normal color, warm/dry, no rash (Ledy Bhakta, PA-C) Laboratory Results Last 24 Hours Test 08/15/17 16:10 08/15/17 20:45 08/16/17 00:18 08/16/17 06:08 Bedside Glucose 214 mg/dl 255 mg/dl 211 mg/dl White Blood Count 27.74 K/uL Red Blood Count 2.56 M/uL Hemoglobin 7.7 g/dL Hematocrit 23.4 % Mean Corpuscular Volume 91.4 fL Mean Corpuscular Hemoglobin 30.1 pg Mean Corpuscular Hemoglobin Concent 32.9 g/dl RDW Standard Deviation 57.0 fL RDW Coefficient of Variation 17.4 % Platelet Count 129 K/uL Mean Platelet Volume 11.8 fL Nucleated RBC Absolute Count (auto) 0.57 K/uL Nucleated Red Blood Cells % 2.0 % Sodium Level 133 mmol/L Potassium Level 5.2 mmol/L Chloride Level 99 mmol/L Carbon Dioxide Level 23 mmol/L Anion Gap 11.0 mmol/L Blood Urea Nitrogen 105 mg/dl Creatinine 3.66 mg/dl Est Creatinine Clear Calc Drug Dose 20.4 ml/min Estimated GFR () 19.3 Estimated GFR (Non- 16.6 BUN/Creatinine Ratio 28.6 Random Glucose 183 mg/dl Calcium Level 9.5 mg/dl Test 08/16/17 06:32 08/16/17 11:05 08/16/17 12:32 Bedside Glucose 186 mg/dl 209 mg/dl (Ledy Bhakta ., PA-C) Assessment and Plan Mr. Christy is a 61 y/o M with PMH of ESRD on HD, RCC, DMII. Admitted for L hand cellulitis having failed outpatient management. Abdominal pain, found to have incidental rectus sheath hematoma, C.diff positive colitis and subsequent bowel perforation on 07/21, now s/p colectomy, anemia, and bilateral pneumonia on imaging. Acute hypoxia respiratory failure, ?secondary to pulmonary edema vs cryptogenic organizing pneumonia/drug related pneumonitis: - Continue O2 supplementation to maintain SaO2 >92%, wean as tolerated - Started on heparin drip on 07/26 for presumed PE- CTA 07/30/17 negative for PE, thus heparin drip stopped - Large R pleural effusion s/p thoracentesis completed 07/30/17- pleural pathology w/ no malignancy, pleural cultures growing yeast- IV Caspofungin restarted on 08/15 - IV Solu-Medrol- transitioned to Prednisone 20 mg BID on 07/31 for prolonged taper- stopped on 08/14 due to restarting IV Solu Medrol - DuoNebs QID and PRN - Pulmonary following -- Encouraged incentive spirometer, OOB in chair throughout day, working w/ PT -- Thinks worsening acute respiratory distress in near future, does not think CXR findings treatable/reversible -- IV Solu Medrol as per pulmonary - Human Capital Manager consulted on 08/08 for ?ARDS- does not think needs ICU at this time - continue to monitor, transfer to ICU if needed C. diff colitis, perforated jejunal bowel (suspected to result from chemo regimen) s/p colectomy, rectus sheath hematoma: - Monitoring on tele- no acute events - Surgical management as per surgery, POD #23- TPN completed on 07/29/17- currently on mechanical soft, renal/T2DM and fluid restrict diet - Underlying severe protein malnutrition, albumin 1.3- boost BID - C.Diff + 07/12/17: Completed 9 days of PO Vancomycin on 07/21 - C. glabratum growth- Completed Caspofungin x10 days on 08/06 - Pain controlled w/ Methadone, Morphine IV PRN, IV Morphine PRN Acute anemia- transfused a total of 8 u PRBCs: - Nephrology following- Epogen with dialysis - H&H- hgb 7.7 on 08/16- transfuse 1 unit PRBCs today - Continue to follow H&H and transfuse PRN for hgb < 7 or symptomatic - Iron panel reviewed- nephrology holding on IV iron at this time Metastatic RCC s/p L nephrectomy, chronic pain: - Oncology consulted- holding treatment at this time due to acute issues- f/u outpatient - Palliative care following- appreciate recommendations for pain control- Methadone, Fentanyl, and IV Morphine 2 mg q4 hrs PRN ESRD HD, secondary to RCC/ s/p left nephrectomy- HD on MWF, ESRD bone mineral disease: - Nephrology following - 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 on 07/23-- vascular surgery consulted- s/p AVR repair on 07/25/17 - Hypocalcemia w/ vitamin D level of 17.4: Ergocalciferol 50,000 q7d indefinitely + daily D3 2000 when patient resumes oral intake- recheck levels in 12 weeks - Calcitriol and CaCO3 Left hand cellulitis, ?reflex sympathetic dystrophy: - Initial MRI did not determine any osteomyelitis - ID consulted: -- Treated initially with Ertapenem/Daptomycin, then transitioned to Cefepime - treated 07/22- 07/30 -- Daptomycin started on 08/07 per ID recommendations- ID following- discontinued on 08/15 DMII: Pharmacy consulted for glycemic management HTN, HLD: - Furosemide 40 mg PO daily, Amlodipine 10 mg daily, Metoprolol 100 mg PO BID, Lisinopril 40 mg daily, Simvastatin 20 mg HS - Hydralazine 100 mg TID held- BPs well controlled at this time - Monitor I&Os and daily weights BPH: Tamsulosin 0.4 mg PO daily DVT Prophylaxis: Heparin SQ TID Code Status: LEVEL I, FULL Dispo: Discharge uncertain- PT/OT and CM following (Ledy Bhakta, SARITA) I personally interviewed and examined the patient. I agree with history of present illness and physical exam mentioned above, I also performed my own history taking and examination. Past medical history and review of system has been obtained by myself I reviewed all pertinent labs and studies Reviewed current medications I discussed and formulated of the assessment and plan mentioned above with CHRISTEN Bhakta Please refer to the Summary mentioned below. General Appearance: Slightly improved , no acute distress Eyes: normal Sclerae, extraocular muscle intact ENT: hearing grossly normal Neck: supple Respiratory/Chest: Decreased air entry bilateral , mild respiratory distress, no accessory muscle use Cardiovascular: regular rate, rhythm, no murmur Abdomen: Minimal stable tenderness on right upper quadrant, soft, no masses Extremities: no edema Neurologic/Psychiatric: Awake alert oriented times place and person moves all extremities sensation intact cranial nerves II-12 appear to be intact Skin: normal color, warm/dry, no rash 61-year-old unfortunate man with renal cancer status post excision currently on dialysis. Presented with abdominal pain and found to have incidental rectus sheath hematoma, patient was treated for multiple infections and was found to have C. difficile colitis . Currently her suspected left lower extremity cellulitis . Was treated for bilateral pneumonia . Without improvement in his pulmonary status Assessment C. difficile with perforated jejunal bowel Acute hypoxic respiratory failure Cecilia glabrata infection pleural fluid and ascitic fluid, treated Left hand cellulitis versus reflex sympathetic dystrophy Bilateral pneumonia, treated Metastatic renal cell carcinoma status post left nephrectomy currently on dialysis DMII: Pharmacy consulted for glycemic management Acute anemia- transfused a total of 8 u PRBCs, likely of chronic diseases HTN, HLD: plan: Agree with plan mentioned above by Miss Bhakta is. CAT scan chest without contrast reviewed, mainly fluids but can not rule out infiltrate, Meanwhile continue same management DCed daptomycin and restarted caspofungin yesterday continue her 1200cc fluid restriction Transfuse 1 unit of packed RBC today with dialysis status post Vanco oral for C. difficile currently code status is no cardiac compression , no cardioversion he will discuss with his family intubation Ananya Walker MD, [facility] hospitalist group (Ananya Ruiz MD)
--- NOTE | 2017-08-16 13:51 | Pharmacy Progress Note ---
Pharmacy Glycemic Short Note 2 Date of Service Aug 16, 2017. Outpatient Medications: * Lantus 14 units SQ qHS * Humalog SSI * HbA1c: n/a in HD patient ASSESSMENT: 08/16/17: * Patient continues on high-dose steroids and remains hyperglycemic, however, BSGs are somewhat improved from yesterday. * Now that patient is getting q6h SoluMedrol, will switch back to Lantus to provide more continuous coverage. May need to try NPH again if switched back to prednisone in the future. * Patient is receiving hemodialysis today, which may contribute to hypoglycemia , so no aggressive changes today. 08/15/17 * Pt receiving SQ basal/bolus insulin regimen for hyperglycemia secondary to baseline DM,stress/infection, recent surgery, steroids * Steroids increase last evening (from prednisone 20mg BID to SoluMedrol 60mg IV q6h) * Patient's BSGs have been very labile and difficult to control secondary to dialysis, fluctuating PO intake, and steroid therapy. * Patient has been receiving ~30-45 units of insulin per day. * BSGs over the past 24 hrs had been quite stable, but with the marked increase in steroid dose, pt is hyperglycemic today * It seems that patient is now receiving fairly regular HD sessions * At this point, have increased NPH doses and tightened Novolog parameters to provide additional insulin * Expect that insulin needs will decrease again once steroids are tapered PLAN FOR INPATIENT GLYCEMIC CONTROL: Maintain BSGs in the 150-250mg/dl range. This is considered adequate control for patient based on prognosis. * Basal insulin * Lantus 25 units SQ qAM, while on SoluMedrol IV * Bolus insulin * NovoLog per scale ACHS * Goal Range: Low 120 mg/dL - High 160 mg/dL * Correction Factor: 15 mg/dL/unit * Nutritional / Prandial insulin per carb ratio of 1 unit per 7 grams CHO consumed
[2017-08-16] MEDS: METOPROLOL TARTRATE 100 MG TAB PO SCH ×2 (16:29→21:23)
[2017-08-16] MEDS: AMLODIPINE BESYLATE 5 MG TAB PO SCH (16:32)
[2017-08-16] MEDS: MoRPHine SULFATE 2 MG/ML CARP IV PRN (17:29)
[2017-08-16] MEDS: FENTANYL PATCH REMOVE & WASTE SCH (17:53)
[2017-08-16] MEDS: FENTANYL 25 MCG/HR TDSY TD SCH (17:54)
--- NOTE | 2017-08-16 18:17 | Palliative Care Progress Note ---
Palliative Care Progress Note Date of Service Aug 16, 2017. Subjective Pt evaluation today including: conversation w/ patient, physical exam, chart review, review of inpatient medication list Pain: well controlled PO Intake: fair to good Voiding: no voiding problems Pt seen with Keli Gallardo Pt's daughter and friend, Eulalia, met with pt last pm to review current status and discuss goals of care. Pt changed code status to no shock, no compressions, but he is considering intubation. Discussed intubation is good if there is a chance of improvement and ability to wean from vent - with pt's resp decline and findings on CT - doubt he would be able to come off vent. Pt wants to discuss with family and we will f/u tomorrow. Also discussed if pt were stable enough for transfer , where would he like to be cared for - he is not sure. Will cont conversations with pt and family Review of Systems Constitutional: No fever Eyes: No worsening of vision ENT: No hearing loss Respiratory: + shortness of breath, + dyspnea on exertion Cardiac: No chest pain Abdomen: + pain (improving) Male : No dysuria Neurologic: + weakness, No memory loss Psychiatric: No anxiety, No insomnia Endo: + fatigue Objective Vital Signs Date Time Temp Pulse Resp B/P (MAP) Pulse Ox O2 Delivery O2 Flow Rate FiO2 08/16/17 15:44 36.9 89 20 112/72 88 6.0 08/16/17 15:36 36.9 99 20 111/75 (87) 85 Nasal Cannula 6.0 08/16/17 15:30 36.8 99 20 112/72 85 6.0 08/16/17 15:14 36.9 94 20 99/51 83 3.0 08/16/17 14:23 92 106/57 08/16/17 14:20 97 66/40 08/16/17 14:00 97 95/48 08/16/17 13:40 97 72/48 08/16/17 13:20 98 96/57 08/16/17 13:15 100 113/62 08/16/17 13:01 105 84/64 08/16/17 12:45 89 95/61 08/16/17 12:30 89 95/61 08/16/17 12:15 91 119/62 08/16/17 12:00 Oxymask 08/16/17 12:00 97 145/70 08/16/17 11:45 87 141/56 08/16/17 10:57 36.7 91 20 149/71 (97) 91 Oxymask 15.0 08/16/17 09:02 36.7 89 20 156/72 (100) 92 Oxymask 15.0 08/16/17 08:00 93 Oxymask 08/16/17 07:04 82 20 96 Mask 15.0 08/16/17 04:03 36.5 86 18 140/68 (92) 97 Oxymask 15.0 60 92 08/16/17 04:00 BiPAP 60 08/16/17 03:29 36.5 86 18 140/68 (92) 97 08/16/17 01:50 85 98 60 08/16/17 01:50 85 20 98 BiPAP/CPAP 60 08/16/17 01:14 100 94 60 08/16/17 00:05 37.0 92 18 163/83 (109) 91 08/16/17 00:00 Oxymask 15.0 08/15/17 20:31 36.5 87 18 161/73 (102) 91 Oxymask 15.0 08/15/17 20:00 Oxymask 15.0 08/15/17 19:35 95 20 94 Mask 15.0 Physical Exam General Appearance: + mild distress (increased sob with conversation) Eyes: EOMI ENT: hearing grossly normal Neck: supple Respiratory/Chest: + decreased breath sounds (rhonchi on L) Cardiovascular: regular rate, rhythm Abdomen: normal bowel sounds, + tenderness (less tender) Extremities: + pertinent finding (+ muscle atrophy, increased tremor due to weakness) Neurologic/Psychiatric: + motor weakness Skin: normal color, warm/dry Laboratory Results Last 24 Hours Test 08/15/17 20:45 08/16/17 00:18 08/16/17 06:08 08/16/17 06:32 Bedside Glucose 255 mg/dl 211 mg/dl 186 mg/dl White Blood Count 27.74 K/uL Red Blood Count 2.56 M/uL Hemoglobin 7.7 g/dL Hematocrit 23.4 % Mean Corpuscular Volume 91.4 fL Mean Corpuscular Hemoglobin 30.1 pg Mean Corpuscular Hemoglobin Concent 32.9 g/dl RDW Standard Deviation 57.0 fL RDW Coefficient of Variation 17.4 % Platelet Count 129 K/uL Mean Platelet Volume 11.8 fL Nucleated RBC Absolute Count (auto) 0.57 K/uL Nucleated Red Blood Cells % 2.0 % Sodium Level 133 mmol/L Potassium Level 5.2 mmol/L Chloride Level 99 mmol/L Carbon Dioxide Level 23 mmol/L Anion Gap 11.0 mmol/L Blood Urea Nitrogen 105 mg/dl Creatinine 3.66 mg/dl Est Creatinine Clear Calc Drug Dose 20.4 ml/min Estimated GFR () 19.3 Estimated GFR (Non- 16.6 BUN/Creatinine Ratio 28.6 Random Glucose 183 mg/dl Calcium Level 9.5 mg/dl Test 08/16/17 11:05 08/16/17 13:13 08/16/17 16:21 Bedside Glucose 209 mg/dl 116 mg/dl Hepatitis B Surface Antigen NEG Assessment and Plan (1) Pain due to neoplasm Status: Chronic Assessment & Plan: Well controlled on methadone and Fentanyl patch (2) Cellulitis of left hand Status: Acute Assessment & Plan: Less erythema and less edema (3) ESRD (end stage renal disease) on dialysis Status: Acute Assessment & Plan: Tolerating HD well (4) Hypoxemia requiring supplemental oxygen Status: Acute Assessment & Plan: Was on 15 L O2, now weaned to 6 L with sats 85-88% - good mentation Would add mophine IV 3 mg prn for pain/SOB. Can d/c oxycodone as it is good for pain only and does not effect dyspnea (5) High risk medication use Status: Acute Assessment & Plan: NO changes needed to methadone dose Total time: 35 min with > 50% time spent at bedside with pt counseling regarding current POC Palliative Performance Scale: 30 % Continued [facility] stay due to: ambulation difficulties, multiple IV medications needed, other (still with high O2 requirement, increased weakness, desats with minimal movement in bed) Discharge planning: uncertain Counseling and Coordination Total time 35 min with > 50% of time spent discussing care options and prognosis with pt
--- NOTE | 2017-08-16 18:36 | Pulmonology Progress Note ---
Pulmonary Progress Note Date of Service Aug 16, 2017. Attending Dr. Askew Subjective The patient condition remains status quo, he continued to be hypoxic at rest, slightly tachycardic, himself denies any shortness of breath, no chest pain was reported no nausea or vomiting. He continued to have pain which appeared to be vague right pleuritic area. Edema in the periphery continued as well. Objective Vital Signs - as noted below Laboratory Data - as noted below Physical Exam: General - NAD Eyes - No icterus, gaze conjugate ENT - Mucosa moist, no lesions or candidiasis. Oxymask in place Neck - Supple, No JVD Lungs - The lungs continue to be decreased but overall effort is improved Heart - Regular, rate controlled Abdomen - Soft, NT, ND, BS present Extremities - some edema of right upper arm but good radial pulses in place. Bilateral edema to the feet and lower legs, pedal pulses intact. Neuro - A&OX3 08/14/2017, his exam revealed vital signs are borderline including tachycardia of 120 normal sinus rhythm, he does have A saturation registering between 77-88% , significant edema in the periphery, abdomen postop, heart examination S1-S2 with tachycardic. Neurologically he's intact. 08/15/2017, the patient physical exam revealed stable hemodynamically, heart rate is not tachycardic today, also saturation is 87% on 12 L of oxygen, no stridor, bilateral crackles, abdomen is benign, S1-S2 regular rate and rhythm, edema noted in the left hand. 08/16/2017, physical exam revealed bilateral faint crackles, heart examination S1 and S2 tachycardic, O2 saturation 91% to 95% on 15 L via mask oxygen. No JVP. Edema remains in the periphery. Overall weak and deconditioned. He is following commands and does not appear to be focal and neuro exam. Abdomen with colostomy. Assessment & Plan ACUTE HYPOXIC RESPIRATORY FAILURE * Thoracentesis on the right 07/30/17 * Bed put in chair position but should continue to emphasize out of bed to bedside chair as tolerated * Physical therapy required to at least sit patient on the edge of bed and dangle legs. Patient motivated and doing active range of motion exercises in bed * Patient may with cellulitis of the right hand and arm. Cultures from the operating room grew out Cecilia glabrata - caspofungin was added by ID * Continue incentive spirometry, flutter valve, and BiPAP for oxygenation and to combat atelectasis PLEURAL EFFUSION * Status post thoracentesis 07/30/[address] Clark * Pathology and microbiology with yeast but no malignant cells * No redevelopment of effusion on chest x-ray 08/02/17 POSSIBLE CRYPTOGENIC ORGANIZING PNEUMONIA * Steroids were started 07/06/17 * Continue prolonged taper * ID treating yeast in pleural fluid with caspofungin. We will defer duration to ID QUESTION OF PULMONARY EMBOLI * CTA with no evidence of pulmonary embolus * Lower extremity duplex was negative for DVT * Continue DVT prophylaxis with heparin 5000 units subcutaneous every 8 hours DVT PROPHYLAXIS * Continue heparin 5000 units subcutaneously every eight hours * Need to encourage out of bed to chair * Need to encourage physical therapy Thank you for including us in the care of this patient. Please refer to Dr. Vines's addendum for further recommendations. 08/14/2017, I have evaluated the patient undergarment of his condition. The patient is diagnosed with renal cell carcinoma with metastasis. The patient also had a history of COPD in the past. Pleural effusion was removed. I have performed an ultrasound of the bedside as well. The following is my assessment: #1 the patient remains in ARDS by definition. The patient PF ratio was less than 150. #2 anasarca due to hypoalbuminemia and renal failure. #3 end-stage renal disease on dialysis. #4 I have performed bedside ultrasound which I do not find significant pleural effusion on the right side note on the left side. He does have minimal ascites as well. He due to anasarca was difficult study. 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 I will treat the patient empirically with full dose of steroids using Methylprednisolone 1 mg /kg per dose every 6 hours. #2 would continue with the current antibiotics. #3 although the patient does have Cecilia glabrata, adding steroids to the current dose that he was on for the past several days would not alter his fungal infection. #[address] with the patient undergarment of his goal of care , the patient is undecided, I encouraged the patient to make a decision about DO NOT RESUSCITATE, in my opinion, it would be fruitless to perform CPR on this patient should he go to cardiac arrest. We'll follow. Assessment and plan: 08/15/2017, #1 advanced renal cell carcinoma with metastasis. #2 bilateral diffuse pneumonitis which could be related to cytokines release versus metastatic disease versus less likely infectious disease. Review of his medications, the patient noted to be on methadone which is known to cause lung injury. The lung injury could be related to loss of cough reflex in these patients and causing chronic aspiration result of an acute lung injury as well. #3 no evidence of pleural effusion. Plan: #1 continue with the steroids. Decrease the dose in the morning to every 12 hours. Although it is very unusual, there is a very rare possibility that the patient had Cecilia pneumonia. #2 continue with high flow oxygen. Changed to nasal cannula using 6 L per minute. I do not believe that Oximask with 15 L of oxygen would benefit the patient at this point. The patient O2 sat should be 85-90% only. #3 infectious disease note appreciated, continue with caspofungin. #4 bronchodilators. #5 the patient is not a candidate for bronchoscopy due to his tenuous respiratory status. However, will discuss with the patient's and with Dr. Sands regarding performing bronchoscopy. I have discussed the case with my colleague Dieter Brown, who suggested in case of performing bronchoscopy we will need assaulted plan prior to sedating the patient should the patient go on the ventilator and required prolonged ventilation. A time limit for ventilation seems more appropriate than proceeding to bronchoscopy that could lead to ventilation dependence and tracheostomy. #6 agree with the rest of his plan. Appreciate all the consults and palliative care input. We'll follow. Data Medications: Current Inpatient Medications Medications (Trade) Dose Ordered Sig/Edward Route Start Time Stop Time Status Last Admin Dose Admin Hydralazine HCl (HydrALAZINE INJ) 5 mg Q4 PRN IV. 07/21/17 17:15 08/20/17 17:14 Future Hold 07/25/17 23:45 5 MG Hydralazine HCl (HydrALAZINE INJ) 5 mg TID IV. 07/21/17 21:00 08/20/17 20:59 Future Hold 07/30/17 08:33 5 MG Miscellaneous Information (Consult Glycemic Management Pharmacy) 1 ea UD PRN N/A 07/23/17 13:14 08/22/17 13:13 Insulin Aspart (novoLOG ASPART) SLIDING SCALE G... ACHS SC 07/27/17 11:30 08/26/17 11:29 08/16/17 17:53 6 UNITS Ipratropium [place] (Atrovent 0.02% 0.5MG/2.5ML Neb) 0.5 mg Q6R INH 07/29/17 09:00 08/28/17 08:59 08/16/17 07:03 0.5 MG Levalbuterol (Xopenex 0.63 Mg/ 3 Ml Neb) 0.63 mg Q6R INH 07/29/17 09:00 08/28/17 08:59 08/16/17 07:03 0.63 MG Metoprolol Tartrate (Lopressor Tab) 100 mg BID PO 07/29/17 21:00 08/28/17 20:59 08/15/17 20:33 100 MG Amlodipine Besylate (Norvasc Tab) 10 mg QAM PO 07/30/17 09:00 08/29/17 08:59 08/16/17 16:32 10 MG Diphenhydramine HCl (Benadryl Inj) 50 mg 4XDQ4H PRN IV 07/30/17 13:30 08/29/17 13:29 Heparin Sodium (Porcine) (Heparin Sq 5000 Unit/0.5ml) 5,000 unit Q8 SQ 07/30/17 22:00 08/29/17 21:59 08/16/17 12:49 5,000 UNIT Furosemide (Lasix Tab) 40 mg QAM PO 08/01/17 09:00 08/31/17 08:59 08/16/17 07:59 40 MG Calcium Carbonate (Tums Chew Tab) 500 mg TID PO 08/02/17 09:00 09/01/17 08:59 08/16/17 13:59 500 MG Vitamin B Complex/ Vit C/Folic Acid (Nephrocaps) 1 cap QAM PO 08/07/17 09:00 09/06/17 08:59 08/16/17 07:59 1 CAP Fentanyl (Duragesic Patch) 25 mcg Q72H TD 08/07/17 18:00 08/21/17 17:59 08/16/17 17:54 25 MCG Miscellaneous (Fentanyl Patch Remove & Waste) 1 ea Q72H N/A 08/10/17 17:59 09/09/17 17:58 08/16/17 17:53 1 EA Miscellaneous Information (Check Fentanyl Patch Placement) 1 ea QS N/A 08/08/17 00:00 09/07/17 00:00 08/16/17 16:31 1 EA Polyethylene (Miralax Powder Packet) 17 gm DAILY PRN PO 08/09/17 07:00 09/08/17 06:59 Methadone HCl (Dolophine Tab) 20 mg BID PO 08/08/17 23:00 08/22/17 22:59 08/16/17 08:12 20 MG Ergocalciferol (Vitamin D Cap) 50,000 interunit We@0900 PO 08/09/17 10:30 09/08/17 10:29 08/16/17 08:00 50,000 INTERUNIT Polyethylene (Miralax Powder Packet) 17 gm DAILY PO 08/09/17 13:00 09/08/17 12:59 08/16/17 08:00 17 GM Heparin Sodium (Porcine) (Heparin 100 Unit/ml 5ml Flush) 5 ml PRN PRN IV 08/09/17 13:00 09/08/17 12:59 08/16/17 06:10 5 ML Simvastatin (Zocor Tab) 20 mg PM PO 08/11/17 21:00 09/10/17 20:59 08/15/17 20:35 20 MG Tamsulosin HCl (Flomax Cap) 0.4 mg HS PO 08/11/17 21:00 09/10/17 20:59 08/15/17 20:34 0.4 MG Ethyl Chloride (Ethyl Chloride Aerosol) 1 ml PRN PRN EXT 08/14/17 17:00 09/13/17 16:59 Methylprednisolone Sodium Succinate 60 mg/Syringe 0.96 ml @ 1.5 mls/min Q6H IV 08/14/17 18:00 09/13/17 17:59 08/16/17 17:51 1.5 MLS/MIN Caspofungin 50 mg/ Sodium Chloride 260 ml @ 250 mls/hr DAILY IV 08/16/17 09:00 08/23/17 08:59 08/16/17 08:10 250 MLS/HR Enteral Nutritional Formula (Prosource No Carb) 30 ml 3XDQ4 PO 08/15/17 12:00 09/14/17 11:59 08/16/17 16:29 30 ML Enteral Nutritional Formula (Boost Glucose Control) 1 can BIDM PO 08/16/17 07:30 09/15/17 07:29 08/16/17 17:28 1 CAN Insulin Glargine (Lantus Solostar Pen) 25 units QAM SC 08/16/17 09:00 09/15/17 08:59 08/16/17 08:23 25 UNITS Morphine Sulfate (MoRPHine SULFATE INJ) 2 mg Q4H PRN IV 08/16/17 13:15 08/30/17 13:14 08/16/17 17:29 2 MG I & O: 24-Hour Column 08/17/17 08:00 Intake Total 1010 ml Output Total 450 ml Balance 560 ml Vital Signs: Date Time Temp Pulse Resp B/P (MAP) Pulse Ox O2 Delivery O2 Flow Rate FiO2 08/16/17 15:44 36.9 89 20 112/72 88 6.0 08/16/17 15:36 36.9 99 20 111/75 (87) 85 Nasal Cannula 6.0 08/16/17 15:30 36.8 99 20 112/72 85 6.0 08/16/17 15:14 36.9 94 20 99/51 83 3.0 08/16/17 14:23 92 106/57 08/16/17 14:20 97 66/40 08/16/17 14:00 97 95/48 08/16/17 13:40 97 72/48 08/16/17 13:20 98 96/57 08/16/17 13:15 100 113/62 08/16/17 13:01 105 84/64 08/16/17 12:45 89 95/61 08/16/17 12:30 89 95/61 08/16/17 12:15 91 119/62 08/16/17 12:00 Oxymask 08/16/17 12:00 97 145/70 08/16/17 11:45 87 141/56 08/16/17 10:57 36.7 91 20 149/71 (97) 91 Oxymask 15.0 08/16/17 09:02 36.7 89 20 156/72 (100) 92 Oxymask 15.0 08/16/17 08:00 93 Oxymask 08/16/17 07:04 82 20 96 Mask 15.0 08/16/17 04:03 36.5 86 18 140/68 (92) 97 Oxymask 15.0 60 92 08/16/17 04:00 BiPAP 60 08/16/17 03:29 36.5 86 18 140/68 (92) 97 08/16/17 01:50 85 98 60 08/16/17 01:50 85 20 98 BiPAP/CPAP 60 08/16/17 01:14 100 94 60 08/16/17 00:05 37.0 92 18 163/83 (109) 91 08/16/17 00:00 Oxymask 15.0 08/15/17 20:31 36.5 87 18 161/73 (102) 91 Oxymask 15.0 08/15/17 20:00 Oxymask 15.0 08/15/17 19:35 95 20 94 Mask 15.0 Laboratory Results: Last 24 Hours Test 08/15/17 20:45 08/16/17 00:18 08/16/17 06:08 08/16/17 06:32 Bedside Glucose 255 mg/dl 211 mg/dl 186 mg/dl White Blood Count 27.74 K/uL Red Blood Count 2.56 M/uL Hemoglobin 7.7 g/dL Hematocrit 23.4 % Mean Corpuscular Volume 91.4 fL Mean Corpuscular Hemoglobin 30.1 pg Mean Corpuscular Hemoglobin Concent 32.9 g/dl RDW Standard Deviation 57.0 fL RDW Coefficient of Variation 17.4 % Platelet Count 129 K/uL Mean Platelet Volume 11.8 fL Nucleated RBC Absolute Count (auto) 0.57 K/uL Nucleated Red Blood Cells % 2.0 % Sodium Level 133 mmol/L Potassium Level 5.2 mmol/L Chloride Level 99 mmol/L Carbon Dioxide Level 23 mmol/L Anion Gap 11.0 mmol/L Blood Urea Nitrogen 105 mg/dl Creatinine 3.66 mg/dl Est Creatinine Clear Calc Drug Dose 20.4 ml/min Estimated GFR () 19.3 Estimated GFR (Non- 16.6 BUN/Creatinine Ratio 28.6 Random Glucose 183 mg/dl Calcium Level 9.5 mg/dl Test 08/16/17 11:05 08/16/17 13:13 08/16/17 16:21 Bedside Glucose 209 mg/dl 116 mg/dl Hepatitis B Surface Antigen NEG
[2017-08-16] MEDS: SIMVASTATIN 20 MG TAB PO SCH (21:21)
[2017-08-16] MEDS: TAMSULOSIN HCL 0.4 MG CAP PO SCH (21:23)
[2017-08-17] VITALS (11 sets, daily range): BP systolic 118–150; BP diastolic 61–72; PULSE 93–107; TEMP 36.8–37.4; O2SAT 88–95
[2017-08-17] MEDS: MoRPHine SULFATE 2 MG/ML CARP IV PRN ×2 (01:25→10:49)
[2017-08-17] MEDS: IPRATROPIUM BROMIDE NEB SOLN 0.02% 2.5 ML VIAL INH SCH ×4 (01:37→19:42)
[2017-08-17] MEDS: LEVALBUTEROL 0.63MG/3 ML NEB INH SCH ×4 (01:37→19:42)
[2017-08-17 05:51] LABS: HEMATOCRIT 26.7 % (42-52); HEMOGLOBIN 8.6 g/dL (14.0-18.0); MEAN CELL VOLUME 90.5 fL (80-100); MEAN CORPUSCULAR HEMOGLOBIN 29.2 pg (25-34); MEAN CORPUSCULAR HGB CONC 32.2 g/dl (32-36); MEAN PLATELET VOLUME 11.5 fL (7.4-10.4); NUCLEATED RED BLOOD CELL ABS 0.68 K/uL (0-0); PLATELET COUNT 119 K/uL (130-400); RED CELL DISTRIBUTION WIDTH CV 17.4 % (11.5-14.5); RED CELL DISTRIBUTION WIDTH SD 56.7 fL (36.4-46.3); WHITE BLOOD COUNT 28.36 K/uL (4.8-10.8)
[2017-08-17] MEDS: METHYLPREDNISOLONE IV 60 MG in SYRINGE 0 ML IV SCH ×2 (05:57→17:29)
[2017-08-17] MEDS: HEPARIN SOD 5000 UNIT/0.5 ML CARP SQ SCH ×3 (06:02→21:18)
[2017-08-17 06:26] LABS: CALCIUM 8.1 mg/dl (8.5-10.1); CREATININE 2.52 mg/dl (0.60-1.40); POTASSIUM 4.2 mmol/L (3.5-5.1)
[2017-08-17] MEDS: CHECK FENTANYL PATCH PLACEMENT SCH ×4 (07:52→23:55)
[2017-08-17] MEDS: BOOST GLUCOSE CONTROL PO SCH ×2 (07:52→17:29)
[2017-08-17] MEDS: CASPOFUNGIN INJ 50 MG in SODIUM CHLORIDE 0.9% 250ML 250 ML IV SCH (07:52)
[2017-08-17] MEDS: PROSOURCE NOCARB 30ML/PKT PO SCH ×3 (07:53→15:34)
[2017-08-17] MEDS: CALCIUM CARBONATE 500 MG CHEWABLE PO SCH ×3 (07:53→21:15)
[2017-08-17] MEDS: METOPROLOL TARTRATE 100 MG TAB PO SCH ×2 (07:53→21:15)
[2017-08-17] MEDS: POLYETHYLENE (MIRALAX) 17 GM PACK PO SCH (07:54)
[2017-08-17] MEDS: FUROSEMIDE 40 MG TAB PO SCH (07:54)
[2017-08-17] MEDS: NEPHROCAPS PO SCH (07:54)
[2017-08-17] MEDS: INSULIN ASPART 100 UNITS/ML 3 ML PEN SC SCH ×4 (08:07→20:28)
[2017-08-17] MEDS: METHADONE HCL 10 MG TAB PO SCH (08:08)
[2017-08-17] MEDS: AMLODIPINE BESYLATE 5 MG TAB PO SCH (09:04)
[2017-08-17] MEDS: INSULIN GLARGINE SOLOSTAR 100 UNITS/ML 3 ML PEN SC SCH (09:08)
--- NOTE | 2017-08-17 10:14 | Nephrology Progress Note ---
Nephrology Progress Note Date of Service Aug 17, 2017. Chief Complaint Follow-up for end-stage renal disease on hemodialysis. Roland Causey Was seen and examined in his room this morning. Complain of right-sided rib pain, responds to analgesic. Sat Ok on 6 L NC O2. Blood pressure and volume status stable. Hemoglobin improved to 8.4 after 1 unit PRBC yesterday. Had dialysis yesterday UF was less than 2 liters as blood pressure dropped, similar episode happened on Monday. Review of Systems A complete review of systems was performed. Pertinent positives are noted above. All other systems are negative. Vital Signs Last 8 Hrs Date Time Temp Pulse Resp B/P (MAP) Pulse Ox O2 Delivery O2 Flow Rate FiO2 08/17/17 07:12 95 95 40 08/17/17 07:11 37.4 93 20 150/72 (98) 95 BiPAP 08/17/17 07:10 95 12 95 BiPAP/CPAP 40 08/17/17 04:00 CPAP 40 08/17/17 03:46 37.0 105 18 140/66 (90) 92 08/17/17 02:00 107 94 40 08/17/17 01:39 107 20 94 Nasal Cannula 6.0 Last Recorded Weight Weight (Kilograms): 70.000 Physical Exam GENERAL: Middle-aged male, AAA x 3, pleasant, pale, ill-appearing, not in any distress. NECK: Supple, no JVD. RESPIRATORY: Normal breathing efforts, no accessory muscle use, mostly clear to auscultation. CARDIOVASCULAR: S1, S2 normal, rate rhythm regular. EXTREMITY: no edema NEURO: speech fluent. PSYCHIATRY: Normal mood and judgment Family History Cervical cancer Diabetes mellitus Heart disease Hypertension Myocardial infarction Pancreatic cancer Prostate cancer Negative for CKD/ESRD Social History Smokeless Tobacco Use: No Alcohol Use: none Drug Use: none Marital Status: single Housing Status: lives alone Occupation: disabled Single, retired. Formerly worked for [employer]. Never a smoker. Laboratory Results Past 24 Hours 08/17/17 05:21 08/17/17 05:21 Test 08/16/17 11:05 08/16/17 13:13 08/16/17 16:21 08/16/17 20:37 Bedside Glucose 209 mg/dl (70-99) 116 mg/dl (70-99) 148 mg/dl (70-99) Hepatitis B Surface Antigen NEG (NEG) Test 08/17/17 00:48 08/17/17 05:21 08/17/17 06:40 Bedside Glucose 160 mg/dl (70-99) 181 mg/dl (70-99) Red Blood Count 2.95 M/uL (4.7-6.1) Mean Corpuscular Volume 90.5 fL (80-100) Mean Corpuscular Hemoglobin 29.2 pg (25-34) Mean Corpuscular Hemoglobin Concent 32.2 g/dl (32-36) RDW Standard Deviation 56.7 fL (36.4-46.3) RDW Coefficient of Variation 17.4 % (11.5-14.5) Mean Platelet Volume 11.5 fL (7.4-10.4) Nucleated RBC Absolute Count (auto) 0.68 K/uL (0-0) Nucleated Red Blood Cells % 2.4 % Anion Gap 8.0 mmol/L (3-11) Est Creatinine Clear Calc Drug Dose 29.7 ml/min Estimated GFR () 30.2 Estimated GFR (Non- 26.1 BUN/Creatinine Ratio 26.4 (10-20) Calcium Level 8.1 mg/dl (8.5-10.1) Allergies Coded Allergies: Iodinated Diagnostic Agents (Verified Allergy, Unknown, oil based, severe headaches, 06/20/17) EVENT OCCURED IN 1971, PT STATES HE HAS HAD 3 DIFFERENT WATER BASED IVP DYES WITH NO ISSUE Medications Current Inpatient Medications Medications (Trade) Dose Ordered Sig/Edward Route Start Time Stop Time Status Last Admin Dose Admin Hydralazine HCl (HydrALAZINE INJ) 5 mg Q4 PRN IV. 07/21/17 17:15 08/20/17 17:14 Future Hold 07/25/17 23:45 5 MG Hydralazine HCl (HydrALAZINE INJ) 5 mg TID IV. 07/21/17 21:00 08/20/17 20:59 Future Hold 07/30/17 08:33 5 MG Miscellaneous Information (Consult Glycemic Management Pharmacy) 1 ea UD PRN N/A 07/23/17 13:14 08/22/17 13:13 Insulin Aspart (novoLOG ASPART) SLIDING SCALE G... ACHS SC 07/27/17 11:30 2/3/18 11:29 08/17/17 08:07 11 UNITS Ipratropium [place] (Atrovent 0.02% 0.5MG/2.5ML Neb) 0.5 mg Q6R INH 07/29/17 09:00 08/28/17 08:59 08/17/17 07:09 0.5 MG Levalbuterol (Xopenex 0.63 Mg/ 3 Ml Neb) 0.63 mg Q6R INH 07/29/17 09:00 08/28/17 08:59 08/17/17 07:09 0.63 MG Metoprolol Tartrate (Lopressor Tab) 100 mg BID PO 07/29/17 21:00 08/28/17 20:59 08/17/17 07:53 100 MG Amlodipine Besylate (Norvasc Tab) 10 mg QAM PO 07/30/17 09:00 08/29/17 08:59 08/16/17 16:32 10 MG Diphenhydramine HCl (Benadryl Inj) 50 mg 4XDQ4H PRN IV 07/30/17 13:30 08/29/17 13:29 Heparin Sodium (Porcine) (Heparin Sq 5000 Unit/0.5ml) 5,000 unit Q8 SQ 07/30/17 22:00 08/29/17 21:59 08/17/17 06:02 5,000 UNIT Furosemide (Lasix Tab) 40 mg QAM PO 08/01/17 09:00 08/31/17 08:59 08/17/17 07:54 40 MG Calcium Carbonate (Tums Chew Tab) 500 mg TID PO 08/02/17 09:00 09/01/17 08:59 08/17/17 07:53 500 MG Vitamin B Complex/ Vit C/Folic Acid (Nephrocaps) 1 cap QAM PO 08/07/17 09:00 09/06/17 08:59 08/17/17 07:54 1 CAP Fentanyl (Duragesic Patch) 25 mcg Q72H TD 08/07/17 18:00 08/21/17 17:59 08/16/17 17:54 25 MCG Miscellaneous (Fentanyl Patch Remove & Waste) 1 ea Q72H N/A 08/10/17 17:59 09/09/17 17:58 08/16/17 17:53 1 EA Miscellaneous Information (Check Fentanyl Patch Placement) 1 ea QS N/A 08/08/17 00:00 09/07/17 00:00 08/17/17 07:52 1 EA Polyethylene (Miralax Powder Packet) 17 gm DAILY PRN PO 08/09/17 07:00 09/08/17 06:59 Methadone HCl (Dolophine Tab) 20 mg BID PO 08/08/17 23:00 08/22/17 22:59 08/17/17 08:08 20 MG Ergocalciferol (Vitamin D Cap) 50,000 interunit We@0900 PO 08/09/17 10:30 09/08/17 10:29 08/16/17 08:00 50,000 INTERUNIT Polyethylene (Miralax Powder Packet) 17 gm DAILY PO 08/09/17 13:00 09/08/17 12:59 08/17/17 07:54 17 GM Heparin Sodium (Porcine) (Heparin 100 Unit/ml 5ml Flush) 5 ml PRN PRN IV 08/09/17 13:00 09/08/17 12:59 08/16/17 06:10 5 ML Simvastatin (Zocor Tab) 20 mg PM PO 08/11/17 21:00 09/10/17 20:59 08/16/17 21:21 20 MG Tamsulosin HCl (Flomax Cap) 0.4 mg HS PO 08/11/17 21:00 09/10/17 20:59 08/16/17 21:23 0.4 MG Ethyl Chloride (Ethyl Chloride Aerosol) 1 ml PRN PRN EXT 08/14/17 17:00 09/13/17 16:59 Caspofungin 50 mg/ Sodium Chloride 260 ml @ 250 mls/hr DAILY IV 08/16/17 09:00 08/23/17 08:59 08/17/17 07:52 250 MLS/HR Enteral Nutritional Formula (Prosource No Carb) 30 ml 3XDQ4 PO 08/15/17 12:00 09/14/17 11:59 08/17/17 07:53 30 ML Morphine Sulfate (MoRPHine SULFATE INJ) 2 mg Q4H PRN IV 08/16/17 13:15 08/30/17 13:14 08/17/17 01:25 2 MG Methylprednisolone Sodium Succinate 60 mg/Syringe 0.96 ml @ 1.5 mls/min Q12H IV 08/17/17 06:00 09/16/17 05:59 08/17/17 05:57 1.5 MLS/MIN Enteral Nutritional Formula (Boost Glucose Control) 1 can BIDM PO 08/17/17 07:30 09/15/17 07:29 08/17/17 07:52 1 CAN Insulin Glargine (Lantus Solostar Pen) 20 units QAM SC 08/17/17 09:00 09/16/17 08:59 Impression (1) Cellulitis of left hand (2) ESRD (end stage renal disease) on dialysis (3) Renal cell carcinoma (4) Anemia (5) Diabetes type 2, controlled Mr. Christy had metastatic RCCA. He underwent left nephrectomy 2015. He did not tolerate Sutent due to high grade proteinuria. Opdivo caused arthralgia, colitis and possible pneumonitis. He was most recently treated w/ Cabometyx. 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 Colonic reanastamosis was performed at the time of surgery. The patient has a complex medical history including persistent soft tissue infection of the left hand, C. Difficile colitis, metastatic RCCA, interstitial lung disease requiring steroid therapy, dc glabrata infection of pleural and peritoneal fluid Mr. Christy's dialysis has been complicated by prolonged bleeding from the AVF following treatment. 07/23 doppler study revealed a high grade venous outflow stenosis. He required fistulagram and coil embolization 07/25/16. Recommendations --had hemodialysis yesterday, initially aim for UF 4 liters however UF was less than 2 liters as blood pressure was dropping. UF was 1800 on Monday as well because of hypotension during dialysis. Patient seems to be euvolemic. Significant improvement in respiratory status most likely due to steroid --will continue to Monday was to Monday dialysis with UF as tolerated --avoid IV fluids, continue on renal diet, dose medications for GFR less than 10 --overall prognosis guarded Will follow
--- NOTE | 2017-08-17 11:26 | Palliative Care Progress Note ---
Palliative Care Progress Note Date of Service Aug 17, 2017. Subjective Pt evaluation today including: conversation w/ patient, physical exam, chart review, lab review, conversation w/ strategic consultant, review of inpatient medication list Pain: Well controlled PO Intake: fair Voiding: no voiding problems Extensive discussion with Pulm and attending regarding POC. Discussion last night with Dieter Brown, pt and family resulted with change in code status. No family at bedside this am. Review of Systems Constitutional: + weight loss, + fatigue, No fever Eyes: No worsening of vision ENT: No hearing loss Respiratory: + shortness of breath, + dyspnea on exertion, No hemoptysis Cardiac: No chest pain Abdomen: + pain (minimal pain L abdomen, no increase in pain R abdomen) Musculoskeletal: No joint pain Male : No dysuria Neurologic: No memory loss Psychiatric: No anxiety Endo: + fatigue Skin: + problem reported (erythema L hand nearly resolved, still with nodular skin lesions and feli swelling - improved) Objective Vital Signs Date Time Temp Pulse Resp B/P (MAP) Pulse Ox O2 Delivery O2 Flow Rate FiO2 08/17/17 07:12 95 95 40 08/17/17 07:11 37.4 93 20 150/72 (98) 95 BiPAP 08/17/17 07:10 95 12 95 BiPAP/CPAP 40 08/17/17 04:00 CPAP 40 08/17/17 03:46 37.0 105 18 140/66 (90) 92 08/17/17 02:00 107 94 40 08/17/17 01:39 107 20 94 Nasal Cannula 6.0 08/16/17 23:59 Nasal Cannula 6.0 08/16/17 23:53 37.2 114 18 152/74 (100) 90 6.0 08/16/17 20:23 97 20 90 Nasal Cannula 6.0 08/16/17 20:19 37.1 104 20 154/78 (103) 86 Nasal Cannula 7.0 08/16/17 20:00 91 Nasal Cannula 6.0 08/16/17 16:00 Oxymask 8.0 08/16/17 15:44 36.9 89 20 112/72 88 6.0 08/16/17 15:36 36.9 99 20 111/75 (87) 85 Nasal Cannula 6.0 08/16/17 15:30 36.8 99 20 112/72 85 6.0 08/16/17 15:14 36.9 94 20 99/51 83 3.0 08/16/17 14:23 92 106/57 08/16/17 14:20 97 66/40 08/16/17 14:00 97 95/48 08/16/17 13:40 97 72/48 08/16/17 13:20 98 96/57 08/16/17 13:15 100 113/62 08/16/17 13:01 105 84/64 08/16/17 12:45 89 95/61 08/16/17 12:30 89 95/61 08/16/17 12:15 91 119/62 08/16/17 12:00 Oxymask 08/16/17 12:00 97 145/70 08/16/17 11:45 87 141/56 Physical Exam General Appearance: no apparent distress Eyes: EOMI ENT: hearing grossly normal Neck: supple Respiratory/Chest: + decreased breath sounds, + pertinent finding (no rhonchi or crackles) Cardiovascular: regular rate, rhythm Abdomen: + pertinent finding (minimal tenderness with palpation L abdomen, mild on R side) Extremities: + pertinent finding (significant muscle atrophy) Neurologic/Psychiatric: + motor weakness Skin: warm/dry, + pertinent finding (L hand erythema and swelling much improved ) Laboratory Results Last 24 Hours Test 08/16/17 13:13 08/16/17 16:21 08/16/17 20:37 08/17/17 00:48 Hepatitis B Surface Antigen NEG Bedside Glucose 116 mg/dl 148 mg/dl 160 mg/dl Test 08/17/17 05:21 08/17/17 06:40 White Blood Count 28.36 K/uL Red Blood Count 2.95 M/uL Hemoglobin 8.6 g/dL Hematocrit 26.7 % Mean Corpuscular Volume 90.5 fL Mean Corpuscular Hemoglobin 29.2 pg Mean Corpuscular Hemoglobin Concent 32.2 g/dl RDW Standard Deviation 56.7 fL RDW Coefficient of Variation 17.4 % Platelet Count 119 K/uL Mean Platelet Volume 11.5 fL Nucleated RBC Absolute Count (auto) 0.68 K/uL Nucleated Red Blood Cells % 2.4 % Sodium Level 132 mmol/L Potassium Level 4.2 mmol/L Chloride Level 96 mmol/L Carbon Dioxide Level 28 mmol/L Anion Gap 8.0 mmol/L Blood Urea Nitrogen 67 mg/dl Creatinine 2.52 mg/dl Est Creatinine Clear Calc Drug Dose 29.7 ml/min Estimated GFR () 30.2 Estimated GFR (Non- 26.1 BUN/Creatinine Ratio 26.4 Random Glucose 168 mg/dl Calcium Level 8.1 mg/dl Bedside Glucose 181 mg/dl Assessment and Plan (1) Pain due to neoplasm Status: Chronic Assessment & Plan: Discussion with Dr Askew regarding review of all possible causes of his current lung findings - there are reported cases of lung injury with methadone - discussed with Dr Walker strategy to stop methadone and transition to oral morphine for pain control. Pt was off methadone post op for 3 days without any issues due to methadone's long half life. Discussed stopping methadone with pt and he is aware of plan. (2) Cellulitis of left hand Status: Acute Assessment & Plan: Appears to have improved - continues to have nodular lesions (3) ESRD (end stage renal disease) on dialysis Status: Acute Assessment & Plan: Pt aggressively diuresed to improve lung function - pt tolerating HD well (4) Hypoxemia requiring supplemental oxygen Status: Acute Assessment & Plan: Due to possible lung toxicity with high levels of O2 - Pulm recommended tolerating lower sats to keep O2 around 6 L. pt tolerating NC this am. (5) High risk medication use Status: Acute Assessment & Plan: Plan discussed with attending , Dr Walker, to stop methadone and start PO morphine on 08/20 as to not get behind on his pain. Cont prn IV morphine Total time: 35 min with > 50% time spent at bedside with pt counseling regarding current POC Palliative Performance Scale: 30 % Continued [facility] stay due to: ambulation difficulties, multiple IV medications needed, other (Poor respiratory status , desats with minimal movement) Discharge planning: uncertain Counseling and Coordination Total time greater than 35 min with > 50% of time spent discussing POC with pt
--- NOTE | 2017-08-17 13:12 | Hospitalist Progress Note ---
Hospitalist Progress Note Date of Service Aug 17, 2017. (Ledy Bhakta ., PA-C) Subjective Pt evaluation today including: conversation w/ patient, physical exam, lab review, review of inpatient medication list Voiding: no voiding problems Patient resting in bed. Eating and drinking OK. Currently on O2 NC- feels more comfortable with NC vs OxyMask. Multiple BMs yesterday- discussed stopping daily MiraLAX, patient would like to continue to avoid constipation. Code status changed to DNR. Patient denies any fever, chills, sweats, lightheadedness, dizziness, vision changes, CP, palpitations, edema, SOB, wheezing, cough, abdominal pain, nausea, vomiting, diarrhea, urinary symptoms, melena, numbness/tingling, weakness, muscle/joint pain, anxiety/depression, active bleeding, or new skin discoloration/changes. (Ledy Bhakta ., PA-C) Medications Current Inpatient Medications Medications (Trade) Dose Ordered Sig/Edward Route Start Time Stop Time Status Last Admin Dose Admin Hydralazine HCl (HydrALAZINE INJ) 5 mg Q4 PRN IV. 07/21/17 17:15 08/20/17 17:14 Future Hold 07/25/17 23:45 5 MG Hydralazine HCl (HydrALAZINE INJ) 5 mg TID IV. 07/21/17 21:00 08/20/17 20:59 Future Hold 07/30/17 08:33 5 MG Miscellaneous Information (Consult Glycemic Management Pharmacy) 1 ea UD PRN N/A 07/23/17 13:14 08/22/17 13:13 Insulin Aspart (novoLOG ASPART) SLIDING SCALE G... ACHS SC 07/27/17 11:30 08/26/17 11:29 08/17/17 12:36 10 UNITS Ipratropium Isabel (Atrovent 0.02% 0.5MG/2.5ML Neb) 0.5 mg Q6R INH 07/29/17 09:00 08/28/17 08:59 08/17/17 07:09 0.5 MG Levalbuterol (Xopenex 0.63 Mg/ 3 Ml Neb) 0.63 mg Q6R INH 07/29/17 09:00 08/28/17 08:59 08/17/17 07:09 0.63 MG Metoprolol Tartrate (Lopressor Tab) 100 mg BID PO 07/29/17 21:00 08/28/17 20:59 08/17/17 07:53 100 MG Amlodipine Besylate (Norvasc Tab) 10 mg QAM PO 07/30/17 09:00 08/29/17 08:59 08/17/17 09:04 10 MG Diphenhydramine HCl (Benadryl Inj) 50 mg 4XDQ4H PRN IV 07/30/17 13:30 08/29/17 13:29 Heparin Sodium (Porcine) (Heparin Sq 5000 Unit/0.5ml) 5,000 unit Q8 SQ 07/30/17 22:00 08/29/17 21:59 08/17/17 06:02 5,000 UNIT Furosemide (Lasix Tab) 40 mg QAM PO 08/01/17 09:00 08/31/17 08:59 08/17/17 07:54 40 MG Calcium Carbonate (Tums Chew Tab) 500 mg TID PO 08/02/17 09:00 09/01/17 08:59 08/17/17 12:34 500 MG Vitamin B Complex/ Vit C/Folic Acid (Nephrocaps) 1 cap QAM PO 08/07/17 09:00 09/06/17 08:59 08/17/17 07:54 1 CAP Fentanyl (Duragesic Patch) 25 mcg Q72H TD 08/07/17 18:00 08/21/17 17:59 08/16/17 17:54 25 MCG Miscellaneous (Fentanyl Patch Remove & Waste) 1 ea Q72H N/A 08/10/17 17:59 09/09/17 17:58 08/16/17 17:53 1 EA Miscellaneous Information (Check Fentanyl Patch Placement) 1 ea QS N/A 08/08/17 00:00 09/07/17 00:00 08/17/17 07:52 1 EA Polyethylene (Miralax Powder Packet) 17 gm DAILY PRN PO 08/09/17 07:00 09/08/17 06:59 Methadone HCl (Dolophine Tab) 20 mg BID PO 08/08/17 23:00 08/22/17 22:59 08/17/17 08:08 20 MG Ergocalciferol (Vitamin D Cap) 50,000 interunit We@0900 PO 08/09/17 10:30 09/08/17 10:29 08/16/17 08:00 50,000 INTERUNIT Polyethylene (Miralax Powder Packet) 17 gm DAILY PO 08/09/17 13:00 09/08/17 12:59 08/17/17 07:54 17 GM Heparin Sodium (Porcine) (Heparin 100 Unit/ml 5ml Flush) 5 ml PRN PRN IV 08/09/17 13:00 09/08/17 12:59 08/16/17 06:10 5 ML Simvastatin (Zocor Tab) 20 mg PM PO 08/11/17 21:00 09/10/17 20:59 08/16/17 21:21 20 MG Tamsulosin HCl (Flomax Cap) 0.4 mg HS PO 08/11/17 21:00 09/10/17 20:59 08/16/17 21:23 0.4 MG Ethyl Chloride (Ethyl Chloride Aerosol) 1 ml PRN PRN EXT 08/14/17 17:00 09/13/17 16:59 Caspofungin 50 mg/ Sodium Chloride 260 ml @ 250 mls/hr DAILY IV 08/16/17 09:00 08/23/17 08:59 08/17/17 07:52 250 MLS/HR Enteral Nutritional Formula (Prosource No Carb) 30 ml 3XDQ4 PO 08/15/17 12:00 09/14/17 11:59 08/17/17 12:34 30 ML Morphine Sulfate (MoRPHine SULFATE INJ) 2 mg Q4H PRN IV 08/16/17 13:15 08/30/17 13:14 08/17/17 10:49 2 MG Methylprednisolone Sodium Succinate 60 mg/Syringe 0.96 ml @ 1.5 mls/min Q12H IV 08/17/17 06:00 09/16/17 05:59 08/17/17 05:57 1.5 MLS/MIN Enteral Nutritional Formula (Boost Glucose Control) 1 can BIDM PO 08/17/17 07:30 09/15/17 07:29 08/17/17 07:52 1 CAN Insulin Glargine (Lantus Solostar Pen) 20 units QAM SC 08/17/17 09:00 09/16/17 08:59 08/17/17 09:08 20 UNITS (Ledy Bhakta PA-C) Objective Vital Signs Date Time Temp Pulse Resp B/P (MAP) Pulse Ox O2 Delivery O2 Flow Rate FiO2 08/17/17 12:00 Nasal Cannula 6.0 08/17/17 11:18 36.8 93 20 125/61 (82) 93 Nasal Cannula 6.0 08/17/17 08:00 Nasal Cannula 6.0 08/17/17 07:12 95 95 40 08/17/17 07:11 37.4 93 20 150/72 (98) 95 BiPAP 08/17/17 07:10 95 12 95 BiPAP/CPAP 40 08/17/17 04:00 CPAP 40 08/17/17 03:46 37.0 105 18 140/66 (90) 92 08/17/17 02:00 107 94 40 08/17/17 01:39 107 20 94 Nasal Cannula 6.0 08/16/17 23:59 Nasal Cannula 6.0 08/16/17 23:53 37.2 114 18 152/74 (100) 90 6.0 08/16/17 20:23 97 20 90 Nasal Cannula 6.0 08/16/17 20:19 37.1 104 20 154/78 (103) 86 Nasal Cannula 7.0 08/16/17 20:00 91 Nasal Cannula 6.0 08/16/17 16:00 Oxymask 8.0 08/16/17 15:44 36.9 89 20 112/72 88 6.0 08/16/17 15:36 36.9 99 20 111/75 (87) 85 Nasal Cannula 6.0 08/16/17 15:30 36.8 99 20 112/72 85 6.0 08/16/17 15:14 36.9 94 20 99/51 83 3.0 08/16/17 14:23 92 106/57 08/16/17 14:20 97 66/40 08/16/17 14:00 97 95/48 08/16/17 13:40 97 72/48 08/16/17 13:20 98 96/57 08/16/17 13:15 100 113/62 08/16/17 13:01 105 84/64 (Ledy Bhakta, BROCKC) Physical Exam General Appearance: no apparent distress, + pertinent finding (O2 NC) Eyes: normal inspection, PERRL ENT: hearing grossly normal Neck: supple Respiratory/Chest: no respiratory distress, no accessory muscle use, + decreased breath sounds Cardiovascular: regular rate, rhythm Abdomen: normal bowel sounds, non tender, soft, + pertinent finding (incision site C/D/I) Extremities: + swelling (+1-2 pitting edema of bilateral lower extremities ), + pertinent finding (bilateral lower extremity muscle wasting ) Neurologic/Psychiatric: alert, normal mood/affect, oriented x 3 Skin: normal color, warm/dry, no rash (Ledy Bhakta PA-C) Laboratory Results Last 24 Hours Test 08/16/17 13:13 08/16/17 16:21 08/16/17 20:37 08/17/17 00:48 Hepatitis B Surface Antigen NEG Bedside Glucose 116 mg/dl 148 mg/dl 160 mg/dl Test 08/17/17 05:21 08/17/17 06:40 08/17/17 11:16 White Blood Count 28.36 K/uL Red Blood Count 2.95 M/uL Hemoglobin 8.6 g/dL Hematocrit 26.7 % Mean Corpuscular Volume 90.5 fL Mean Corpuscular Hemoglobin 29.2 pg Mean Corpuscular Hemoglobin Concent 32.2 g/dl RDW Standard Deviation 56.7 fL RDW Coefficient of Variation 17.4 % Platelet Count 119 K/uL Mean Platelet Volume 11.5 fL Nucleated RBC Absolute Count (auto) 0.68 K/uL Nucleated Red Blood Cells % 2.4 % Sodium Level 132 mmol/L Potassium Level 4.2 mmol/L Chloride Level 96 mmol/L Carbon Dioxide Level 28 mmol/L Anion Gap 8.0 mmol/L Blood Urea Nitrogen 67 mg/dl Creatinine 2.52 mg/dl Est Creatinine Clear Calc Drug Dose 29.7 ml/min Estimated GFR () 30.2 Estimated GFR (Non- 26.1 BUN/Creatinine Ratio 26.4 Random Glucose 168 mg/dl Calcium Level 8.1 mg/dl Bedside Glucose 181 mg/dl 164 mg/dl (Ledy Bhakta PA-C) Assessment and Plan Mr. Christy is a 61 y/o M with PMH of ESRD on HD, RCC, DMII. Admitted for L hand cellulitis having failed outpatient management. Abdominal pain, found to have incidental rectus sheath hematoma, C.diff positive colitis and subsequent bowel perforation on 07/21, now s/p colectomy, anemia, and bilateral pneumonia on imaging. Acute hypoxia respiratory failure, ?secondary to pulmonary edema vs cryptogenic organizing pneumonia/drug related pneumonitis: - Continue O2 supplementation to maintain SaO2 85-90%, wean as tolerated, CPAP HS - Started on heparin drip on 07/26 for presumed PE- CTA 07/30/17 negative for PE, thus heparin drip stopped - Large R pleural effusion s/p thoracentesis completed 07/30/17- pleural pathology w/ no malignancy, pleural cultures growing yeast- IV Caspofungin restarted on 08/15 - IV Solu-Medrol- transitioned to Prednisone 20 mg BID on 07/31 for prolonged taper- stopped on 08/14 due to restarting IV Solu Medrol - DuoNebs QID and PRN - Pulmonary following -- Encouraged incentive spirometer, OOB in chair throughout day, working w/ PT -- Thinks worsening acute respiratory distress in near future, does not think CXR findings treatable/reversible -- IV Solu Medrol as per pulmonary - [employer] consulted on 08/08 for ?ARDS- does not think needs ICU at this time - continue to monitor, transfer to ICU if needed C. diff colitis, perforated jejunal bowel (suspected to result from chemo regimen) s/p colectomy, rectus sheath hematoma- STABLE: - Monitoring on tele- no acute events - Surgical management as per surgery, POD #24- TPN completed on 07/29/17- currently on mechanical soft, renal/T2DM and fluid restrict diet - Underlying severe protein malnutrition, albumin 1.3- boost BID - C.Diff + 07/12/17: Completed 9 days of PO Vancomycin on 07/21 - C. glabratum growth- Completed Caspofungin x10 days on 08/06 - Pain controlled w/ Methadone, Morphine IV PRN, IV Morphine PRN Acute anemia- transfused a total of 9 u PRBCs: - Nephrology following- Epogen with dialysis - H&H- hgb 8.6- STABLE - Continue to follow H&H and transfuse PRN for hgb < 7 or symptomatic - Iron panel reviewed- nephrology holding on IV iron at this time Metastatic RCC s/p L nephrectomy, chronic pain: - Oncology consulted- holding treatment at this time due to acute issues- f/u outpatient - Palliative care following- appreciate recommendations for pain control- Fentanyl, and IV Morphine 2 mg q4 hrs PRN -- Palliative care recommending switch Methadone to PO Morphine due to possibility of lung injury as per pulmonary -- Stop PO Methadone on 08/17 and start Morphine 30 mg PO BID on 08/20 due to Methadone's long half-life ESRD HD, secondary to RCC/ s/p left nephrectomy- HD on MWF, ESRD bone mineral disease: - Nephrology following - 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 on 07/23-- vascular surgery consulted- s/p AVR repair on 07/25/17 - Hypocalcemia w/ vitamin D level of 17.4: Ergocalciferol 50,000 q7d indefinitely + daily D3 2000 when patient resumes oral intake- recheck levels in 12 weeks - Calcitriol and CaCO3 Left hand cellulitis, ?reflex sympathetic dystrophy: - Initial MRI did not determine any osteomyelitis - ID consulted: -- Treated initially with Ertapenem/Daptomycin, then transitioned to Cefepime - treated 07/22- 07/30 -- Daptomycin started on 08/07 per ID recommendations- ID following- discontinued on 08/15 DMII: Pharmacy consulted for glycemic management HTN, HLD: - Furosemide 40 mg PO daily, Amlodipine 10 mg daily, Metoprolol 100 mg PO BID, Lisinopril 40 mg daily, Simvastatin 20 mg HS - Hydralazine 100 mg TID held- BPs well controlled at this time - Monitor I&Os and daily weights BPH: Tamsulosin 0.4 mg PO daily DVT Prophylaxis: Heparin SQ TID Code Status: LEVEL V, DNR Dispo: Discharge uncertain- PT/OT and CM following (Ledy Bhakta, PADorcasC) I personally interviewed and examined the patient. I agree with history of present illness and physical exam mentioned above, I also performed my own history taking and examination. Past medical history and review of system has been obtained by myself I reviewed all pertinent labs and studies Reviewed current medications I discussed and formulated of the assessment and plan mentioned above with PA Miss Bhakta Please refer to the Summary mentioned below. General Appearance: mild acute distress Eyes: normal Sclerae, extraocular muscle intact ENT: hearing grossly normal Neck: supple Respiratory/Chest: Decreased air entry bilateral , mild respiratory distress, no accessory muscle use Cardiovascular: regular rate, rhythm, no murmur Abdomen: Minimal stable tenderness on right upper quadrant, soft, no masses Extremities: no edema Neurologic/Psychiatric: Awake alert oriented times place and person moves all extremities sensation intact cranial nerves II-12 appear to be intact Skin: normal color, warm/dry, no rash 61-year-old unfortunate man with renal cancer status post excision currently on dialysis. Presented with abdominal pain and found to have incidental rectus sheath hematoma, patient was treated for multiple infections and was found to have C. difficile colitis . Currently her suspected left lower extremity cellulitis . Was treated for bilateral pneumonia . Without improvement in his pulmonary status Assessment C. difficile with perforated jejunal bowel Acute hypoxic respiratory failure heavy dense pulmonary consolidation / infiltration possible daptomycin induced lung toxicity / ARDs Cecilia glabrata infection pleural fluid and ascitic fluid, treated Left hand cellulitis versus reflex sympathetic dystrophy Bilateral pneumonia, treated Metastatic renal cell carcinoma status post left nephrectomy currently on dialysis DMII: Pharmacy consulted for glycemic management Acute anemia- transfused a total of 8 u PRBCs, likely of chronic diseases HTN, HLD: plan: Agree with plan mentioned above by Miss Bhakta is. CAT scan chest without contrast reviewed, mainly fluids plus infiltrate, Meanwhile continue same management DCed daptomycin and restarted caspofungin yesterday recommended focusing on code status and palliative care but since we are still in active medical management state will order further sputum Cx/ AFbs, crypto Ag and fungitel. while caspofungin already covering candidas and aspergillous, we need to consider other fungai , like crypto / zygomycetes and fusarium yesterday Transfuse 1 unit of packed RBC today with dialysis status post Vanco oral for C. difficile Ananya Walker MD, [facility] hospitalist group (Ananya Ruiz MD)
--- NOTE | 2017-08-17 14:37 | Pharmacy Progress Note ---
Pharmacy Glycemic Short Note 2 Date of Service Aug 17, 2017. Outpatient Medications: * Lantus 14 units SQ qHS * Humalog SSI * HbA1c: n/a in HD patient ASSESSMENT: 08/17/17: * Mr Christy's BSGs have been pretty stable for the past ~24-48 hours. * SoluMedrol has been decreased from 60mg q6h --> 60mg q12h. Lantus dose was decreased this morning to account for decrease in steroids. Will continue to titrate down as needed. 08/16/17 * Patient continues on high-dose steroids and remains hyperglycemic, however, BSGs are somewhat improved from yesterday. * Now that patient is getting q6h SoluMedrol, will switch back to Lantus to provide more continuous coverage. May need to try NPH again if switched back to prednisone in the future. * Patient is receiving hemodialysis today, which may contribute to hypoglycemia , so no aggressive changes today. 08/15/17 * Pt receiving SQ basal/bolus insulin regimen for hyperglycemia secondary to baseline DM,stress/infection, recent surgery, steroids * Steroids increase last evening (from prednisone 20mg BID to SoluMedrol 60mg IV q6h) * Patient's BSGs have been very labile and difficult to control secondary to dialysis, fluctuating PO intake, and steroid therapy. * Patient has been receiving ~30-45 units of insulin per day. * BSGs over the past 24 hrs had been quite stable, but with the marked increase in steroid dose, pt is hyperglycemic today * It seems that patient is now receiving fairly regular HD sessions * At this point, have increased NPH doses and tightened Novolog parameters to provide additional insulin * Expect that insulin needs will decrease again once steroids are tapered PLAN FOR INPATIENT GLYCEMIC CONTROL: Maintain BSGs in the 150-250mg/dl range. This is considered adequate control for patient based on prognosis. * Basal insulin * Lantus 20 units SQ qAM, while on SoluMedrol IV * Bolus insulin * NovoLog per scale ACHS * Goal Range: Low 120 mg/dL - High 160 mg/dL * Correction Factor: 15 mg/dL/unit * Nutritional / Prandial insulin per carb ratio of 1 unit per 7 grams CHO consumed
[2017-08-17] MEDS ORDERED: SODIUM CHLORIDE 0.65% NA SOLN 45 ML (OCEAN) ONE (14:45)
--- NOTE | 2017-08-17 15:16 | Pulmonology Progress Note ---
Pulmonary Progress Note Date of Service Aug 17, 2017. Attending Dr. Azar Watkins This is a pleasant 61-year-old male who was diagnosed with metastatic renal cell carcinoma with enlarged lymph nodes. He has follow with Dr. Dao from oncology and currently because of other issues has been unable to participate in chemotherapy. The patient had a C. difficile colitis resulting in microperforation requiring partial colectomy with adequate anastomosis. He was treated in the intensive care unit for a short redundant and moved up to telemetry where he has continued to have acute interstitial pneumonitis and ARDs which has been refractory to treatment. He is undergoing adequate treatment for fungal infection as well as bacterial infection. He is also been on a long course of steroids with no significant improvement in his oxygenation. During this period the patient has suffered considerable atrophy and decompensation secondary to his consumptive disease of the primary cancer. In discussion with the patient, his POA, and his daughter Vivien it was decided yesterday that the patient would be changed to DNR/DNI status and that we would focus on palliative care. The patient has successfully been titrated down to 6 L via nasal cannula during the day and CPAP at night and appears comfortable. He continues to desaturate into the 70s with minimal exertion including rolling on his side and being hoisted in the lift to be in the bedside chair. He continues with pain which is adequately treated with morphine. He is on a fluid restriction and continues with end-stage renal disease and has elected for the time being to continue with hemodialysis. Focus is now on palliation. Objective Vital Signs - as noted below Laboratory Data - as noted below Physical Exam: General - NAD Eyes - No icterus, gaze conjugate ENT - Mucosa moist, no lesions or candidiasis. Nasal cannula in place Neck - Supple, No JVD Lungs - The lungs continue to be decreased but overall effort is improved and breath sounds seem to be improved Heart - Regular, rate controlled Abdomen - Soft, NT, ND, BS present Extremities - Bilateral edema to the feet and lower legs, pedal pulses intact. Neuro - A&OX3 08/14/2017, his exam revealed vital signs are borderline including tachycardia of 120 normal sinus rhythm, he does have A saturation registering between 77-88% , significant edema in the periphery, abdomen postop, heart examination S1-S2 with tachycardic. Neurologically he's intact. 08/15/2017, the patient physical exam revealed stable hemodynamically, heart rate is not tachycardic today, also saturation is 87% on 12 L of oxygen, no stridor, bilateral crackles, abdomen is benign, S1-S2 regular rate and rhythm, edema noted in the left hand. 08/16/2017, physical exam revealed bilateral faint crackles, heart examination S1 and S2 tachycardic, O2 saturation 91% to 95% on 15 L via mask oxygen. No JVP. Edema remains in the periphery. Overall weak and deconditioned. He is following commands and does not appear to be focal and neuro exam. Abdomen with colostomy. Assessment & Plan The patient has a history of renal cell carcinoma with metastasis. Pleural effusion was found and thoracentesis was performed. Recent ultrasound shows no reaccumulation of fluid. The patient has had hypoxic respiratory failure since his surgery for C. difficile colitis with microperforation. He has been treated with caspofungin for fungal infection as well as broad-spectrum antibiotics for bacterial infection. The patient continues to be in a "slow burning" ARDs and most likely has shunting and acute interstitial pneumonitis which has an slow to clear. Patient has required high flow O2 with an Oxymask as well as BiPAP. Steroids have been increased and patient currently seems to be tolerating nasal cannula at 6 L with humidified O2. The patient also continues to suffer from end -stage renal disease and is undergoing scheduled hemodialysis at the direction of nephrology. At this time the patient has elected to change code status to DNR/DNI and focus on palliation. Discussion with palliative care team as well as the hospitalist team today. They will manage the patient's care from this point forward. From a pulmonary standpoint, we will sign off but will be available as needed. Thank you very much for including us in the care of this patient. Data Medications: Current Inpatient Medications Medications (Trade) Dose Ordered Sig/Edward Route Start Time Stop Time Status Last Admin Dose Admin Hydralazine HCl (HydrALAZINE INJ) 5 mg Q4 PRN IV. 07/21/17 17:15 08/20/17 17:14 Future Hold 07/25/17 23:45 5 MG Hydralazine HCl (HydrALAZINE INJ) 5 mg TID IV. 07/21/17 21:00 08/20/17 20:59 Future Hold 07/30/17 08:33 5 MG Miscellaneous Information (Consult Glycemic Management Pharmacy) 1 ea UD PRN N/A 07/23/17 13:14 08/22/17 13:13 Insulin Aspart (novoLOG ASPART) SLIDING SCALE G... ACHS SC 07/27/17 11:30 08/26/17 11:29 08/17/17 12:36 10 UNITS Ipratropium [place] (Atrovent 0.02% 0.5MG/2.5ML Neb) 0.5 mg Q6R INH 07/29/17 09:00 08/28/17 08:59 08/17/17 14:13 0.5 MG Levalbuterol (Xopenex 0.63 Mg/ 3 Ml Neb) 0.63 mg Q6R INH 07/29/17 09:00 08/28/17 08:59 08/17/17 14:13 0.63 MG Metoprolol Tartrate (Lopressor Tab) 100 mg BID PO 07/29/17 21:00 08/28/17 20:59 08/17/17 07:53 100 MG Amlodipine Besylate (Norvasc Tab) 10 mg QAM PO 07/30/17 09:00 08/29/17 08:59 08/17/17 09:04 10 MG Diphenhydramine HCl (Benadryl Inj) 50 mg 4XDQ4H PRN IV 07/30/17 13:30 08/29/17 13:29 Heparin Sodium (Porcine) (Heparin Sq 5000 Unit/0.5ml) 5,000 unit Q8 SQ 07/30/17 22:00 08/29/17 21:59 08/17/17 13:10 5,000 UNIT Furosemide (Lasix Tab) 40 mg QAM PO 08/01/17 09:00 08/31/17 08:59 08/17/17 07:54 40 MG Calcium Carbonate (Tums Chew Tab) 500 mg TID PO 08/02/17 09:00 09/01/17 08:59 08/17/17 12:34 500 MG Vitamin B Complex/ Vit C/Folic Acid (Nephrocaps) 1 cap QAM PO 08/07/17 09:00 09/06/17 08:59 08/17/17 07:54 1 CAP Fentanyl (Duragesic Patch) 25 mcg Q72H TD 08/07/17 18:00 08/21/17 17:59 08/16/17 17:54 25 MCG Miscellaneous (Fentanyl Patch Remove & Waste) 1 ea Q72H N/A 08/10/17 17:59 09/09/17 17:58 08/16/17 17:53 1 EA Miscellaneous Information (Check Fentanyl Patch Placement) 1 ea QS N/A 08/08/17 00:00 09/07/17 00:00 08/17/17 07:52 1 EA Polyethylene (Miralax Powder Packet) 17 gm DAILY PRN PO 08/09/17 07:00 09/08/17 06:59 Ergocalciferol (Vitamin D Cap) 50,000 interunit We@0900 PO 08/09/17 10:30 09/08/17 10:29 08/16/17 08:00 50,000 INTERUNIT Polyethylene (Miralax Powder Packet) 17 gm DAILY PO 08/09/17 13:00 09/08/17 12:59 08/17/17 07:54 17 GM Heparin Sodium (Porcine) (Heparin 100 Unit/ml 5ml Flush) 5 ml PRN PRN IV 08/09/17 13:00 09/08/17 12:59 08/16/17 06:10 5 ML Simvastatin (Zocor Tab) 20 mg PM PO 08/11/17 21:00 09/10/17 20:59 08/16/17 21:21 20 MG Tamsulosin HCl (Flomax Cap) 0.4 mg HS PO 08/11/17 21:00 09/10/17 20:59 08/16/17 21:23 0.4 MG Ethyl Chloride (Ethyl Chloride Aerosol) 1 ml PRN PRN EXT 08/14/17 17:00 09/13/17 16:59 Caspofungin 50 mg/ Sodium Chloride 260 ml @ 250 mls/hr DAILY IV 08/16/17 09:00 08/23/17 08:59 08/17/17 07:52 250 MLS/HR Enteral Nutritional Formula (Prosource No Carb) 30 ml 3XDQ4 PO 08/15/17 12:00 09/14/17 11:59 08/17/17 12:34 30 ML Morphine Sulfate (MoRPHine SULFATE INJ) 2 mg Q4H PRN IV 08/16/17 13:15 2/7/18 13:14 08/17/17 10:49 2 MG Methylprednisolone Sodium Succinate 60 mg/Syringe 0.96 ml @ 1.5 mls/min Q12H IV 08/17/17 06:00 09/16/17 05:59 08/17/17 05:57 1.5 MLS/MIN Enteral Nutritional Formula (Boost Glucose Control) 1 can BIDM PO 08/17/17 07:30 09/15/17 07:29 08/17/17 07:52 1 CAN Insulin Glargine (Lantus Solostar Pen) 20 units QAM SC 08/17/17 09:00 09/16/17 08:59 08/17/17 09:08 20 UNITS Morphine Sulfate (Oramorph Sr Tab) 30 mg Q12H PO 08/20/17 09:00 09/03/17 08:59 I & O: 24-Hour Column 08/18/17 08:00 Intake Total 626 ml Output Total 400 ml Balance 226 ml Vital Signs: Date Time Temp Pulse Resp B/P (MAP) Pulse Ox O2 Delivery O2 Flow Rate FiO2 08/17/17 14:13 95 16 95 Nasal Cannula 7.0 08/17/17 12:00 Nasal Cannula 6.0 08/17/17 11:18 36.8 93 20 125/61 (82) 93 Nasal Cannula 6.0 08/17/17 08:00 Nasal Cannula 6.0 08/17/17 07:12 95 95 40 08/17/17 07:11 37.4 93 20 150/72 (98) 95 BiPAP 08/17/17 07:10 95 12 95 BiPAP/CPAP 40 08/17/17 04:00 CPAP 40 08/17/17 03:46 37.0 105 18 140/66 (90) 92 08/17/17 02:00 107 94 40 08/17/17 01:39 107 20 94 Nasal Cannula 6.0 08/16/17 23:59 Nasal Cannula 6.0 08/16/17 23:53 37.2 114 18 152/74 (100) 90 6.0 08/16/17 20:23 97 20 90 Nasal Cannula 6.0 08/16/17 20:19 37.1 104 20 154/78 (103) 86 Nasal Cannula 7.0 08/16/17 20:00 91 Nasal Cannula 6.0 08/16/17 16:00 Oxymask 8.0 08/16/17 15:44 36.9 89 20 112/72 88 6.0 08/16/17 15:36 36.9 99 20 111/75 (87) 85 Nasal Cannula 6.0 08/16/17 15:30 36.8 99 20 112/72 85 6.0 08/16/17 15:14 36.9 94 20 99/51 83 3.0 Laboratory Results: Last 24 Hours Test 08/16/17 16:21 08/16/17 20:37 08/17/17 00:48 08/17/17 05:21 Bedside Glucose 116 mg/dl 148 mg/dl 160 mg/dl White Blood Count 28.36 K/uL Red Blood Count 2.95 M/uL Hemoglobin 8.6 g/dL Hematocrit 26.7 % Mean Corpuscular Volume 90.5 fL Mean Corpuscular Hemoglobin 29.2 pg Mean Corpuscular Hemoglobin Concent 32.2 g/dl RDW Standard Deviation 56.7 fL RDW Coefficient of Variation 17.4 % Platelet Count 119 K/uL Mean Platelet Volume 11.5 fL Nucleated RBC Absolute Count (auto) 0.68 K/uL Nucleated Red Blood Cells % 2.4 % Sodium Level 132 mmol/L Potassium Level 4.2 mmol/L Chloride Level 96 mmol/L Carbon Dioxide Level 28 mmol/L Anion Gap 8.0 mmol/L Blood Urea Nitrogen 67 mg/dl Creatinine 2.52 mg/dl Est Creatinine Clear Calc Drug Dose 29.7 ml/min Estimated GFR () 30.2 Estimated GFR (Non- 26.1 BUN/Creatinine Ratio 26.4 Random Glucose 168 mg/dl Calcium Level 8.1 mg/dl Test 08/17/17 06:40 08/17/17 11:16 Bedside Glucose 181 mg/dl 164 mg/dl
[2017-08-17] MEDS: SIMVASTATIN 20 MG TAB PO SCH (21:15)
[2017-08-17] MEDS: TAMSULOSIN HCL 0.4 MG CAP PO SCH (21:15)
[2017-08-18] VITALS (32 sets, daily range): BP systolic 104–177; BP diastolic 40–84; PULSE 94–109; TEMP 36.6–37.4; O2SAT 88–96
[2017-08-18] MEDS: MoRPHine SULFATE 2 MG/ML CARP IV PRN ×5 (01:11→19:34)
[2017-08-18] MEDS: IPRATROPIUM BROMIDE NEB SOLN 0.02% 2.5 ML VIAL INH SCH ×4 (02:07→19:24)
[2017-08-18] MEDS: LEVALBUTEROL 0.63MG/3 ML NEB INH SCH ×4 (02:07→19:24)
[2017-08-18 05:23] LABS: HEMATOCRIT 25.4 % (42-52); HEMOGLOBIN 8.6 g/dL (14.0-18.0); MEAN CELL VOLUME 90.4 fL (80-100); MEAN CORPUSCULAR HEMOGLOBIN 30.6 pg (25-34); MEAN CORPUSCULAR HGB CONC 33.9 g/dl (32-36); MEAN PLATELET VOLUME 11.9 fL (7.4-10.4); NUCLEATED RED BLOOD CELL ABS 0.51 K/uL (0-0); PLATELET COUNT 122 K/uL (130-400); RED CELL DISTRIBUTION WIDTH SD 55.8 fL (36.4-46.3); WHITE BLOOD COUNT 30.81 K/uL (4.8-10.8)
[2017-08-18] MEDS: HEPARIN SOD 5000 UNIT/0.5 ML CARP SQ SCH ×3 (05:24→21:07)
[2017-08-18] MEDS: METHYLPREDNISOLONE IV 60 MG in SYRINGE 0 ML IV SCH ×2 (05:26→17:56)
[2017-08-18 05:35] LABS: BASO % 0.2 %; BASO ABS # 0.06 K/uL (0-0.2); IG# 1.08 K/uL (0.00-0.02); LYMPH ABS # 0.61 K/uL (1.2-3.4); MONO % 3.5 %; MONO ABS # 1.07 K/uL (0.11-0.59); NEUT % 90.8 %; NEUT ABS # 27.99 K/uL (1.4-6.5)
[2017-08-18 05:46] LABS: ALBUMIN 1.7 gm/dl (3.4-5.0); CALCIUM 8.7 mg/dl (8.5-10.1); CREATININE 3.4 mg/dl (0.60-1.40); POTASSIUM 4.2 mmol/L (3.5-5.1)
[2017-08-18 05:49] LABS: TOTAL PROTEIN 5.1 gm/dl (6.4-8.2)
[2017-08-18] MEDS: INSULIN ASPART 100 UNITS/ML 3 ML PEN SC SCH ×4 (09:04→21:07)
[2017-08-18] MEDS: INSULIN GLARGINE SOLOSTAR 100 UNITS/ML 3 ML PEN SC SCH (09:04)
[2017-08-18] MEDS: CHECK FENTANYL PATCH PLACEMENT SCH ×3 (09:07→23:17)
[2017-08-18] MEDS: PROSOURCE NOCARB 30ML/PKT PO SCH ×3 (09:07→17:54)
[2017-08-18] MEDS: BOOST GLUCOSE CONTROL PO SCH ×2 (09:07→17:54)
[2017-08-18] MEDS: METOPROLOL TARTRATE 100 MG TAB PO SCH ×2 (09:08→21:03)
[2017-08-18] MEDS: FUROSEMIDE 40 MG TAB PO SCH (09:08)
[2017-08-18] MEDS: CASPOFUNGIN INJ 50 MG in SODIUM CHLORIDE 0.9% 250ML 250 ML IV SCH (09:08)
[2017-08-18] MEDS: POLYETHYLENE (MIRALAX) 17 GM PACK PO SCH (09:08)
[2017-08-18] MEDS: NEPHROCAPS PO SCH (09:09)
[2017-08-18] MEDS: AMLODIPINE BESYLATE 5 MG TAB PO SCH (09:09)
[2017-08-18] MEDS: CALCIUM CARBONATE 500 MG CHEWABLE PO SCH ×3 (09:10→21:03)
--- NOTE | 2017-08-18 13:25 | Pharmacy Progress Note ---
Pharmacy Glycemic Short Note 2 Date of Service Aug 18, 2017. Outpatient Medications: * Lantus 14 units SQ qHS * Humalog SSI * HbA1c: n/a in HD patient ASSESSMENT: 08/18/16 * BSGs over the past 24 hours: 181, 164, 148, 129 mg/dL * Fasting BSG trending downward - Lantus dose was decreased yesterday. Continue same for now. * Prandial BSGs trending downward - loosen CF/CR * Steroids continue at 60 mg IV every 12 hours 08/17/17: * Mr Christy's BSGs have been pretty stable for the past ~24-48 hours. * SoluMedrol has been decreased from 60mg q6h --> 60mg q12h. Lantus dose was decreased this morning to account for decrease in steroids. Will continue to titrate down as needed. 08/16/17 * Patient continues on high-dose steroids and remains hyperglycemic, however, BSGs are somewhat improved from yesterday. * Now that patient is getting q6h SoluMedrol, will switch back to Lantus to provide more continuous coverage. May need to try NPH again if switched back to prednisone in the future. * Patient is receiving hemodialysis today, which may contribute to hypoglycemia , so no aggressive changes today. PLAN FOR INPATIENT GLYCEMIC CONTROL: Maintain BSGs in the 150-250mg/dl range. This is considered adequate control for patient based on prognosis. * Basal insulin * Lantus 20 units SQ qAM, while on SoluMedrol IV * Bolus insulin - loosen * NovoLog per scale ACHS * Goal Range: Low 120 mg/dL - High 160 mg/dL * Correction Factor: 20 mg/dL/unit * Nutritional / Prandial insulin per carb ratio of 1 unit per 9 grams CHO consumed
--- NOTE | 2017-08-18 14:17 | Nephrology Progress Note ---
Nephrology Progress Note Date of Service Aug 18, 2017. Chief Complaint Follow-up for end-stage renal disease on hemodialysis. Roland Causey was seen and examined in his room this morning. He has been participating more with physical therapy and overall feeling better. Continued on nasal cannula oxygen 6 liters. Blood pressure better electrolyte acceptable. Review of Systems A complete review of systems was performed. Pertinent positives are noted above. All other systems are negative. Vital Signs Last 8 Hrs Date Time Temp Pulse Resp B/P (MAP) Pulse Ox O2 Delivery O2 Flow Rate FiO2 08/18/17 07:36 37.0 102 20 140/64 (89) 96 Nasal Cannula 7.0 08/18/17 07:32 100 16 91 Nasal Cannula 6.0 08/18/17 05:00 90 Nasal Cannula 7.0 08/18/17 03:24 36.6 101 18 167/74 (105) 93 08/18/17 02:07 99 16 94 BiPAP/CPAP 40 08/18/17 01:10 101 92 40 Last Recorded Weight Weight (Kilograms): 74.800 Physical Exam GENERAL: Middle-aged male, AAA x 3, pleasant, pale, ill-appearing, not in any distress. NECK: Supple, no JVD. RESPIRATORY: Normal breathing efforts, no accessory muscle use, mostly clear to auscultation. CARDIOVASCULAR: S1, S2 normal, rate rhythm regular. EXTREMITY: no edema NEURO: speech fluent. PSYCHIATRY: Normal mood and judgment Family History Cervical cancer Diabetes mellitus Heart disease Hypertension Myocardial infarction Pancreatic cancer Prostate cancer Negative for CKD/ESRD Social History Smokeless Tobacco Use: No Alcohol Use: none Drug Use: none Marital Status: single Housing Status: lives alone Occupation: disabled Single, retired. Formerly worked for [employer]. Never a smoker. Laboratory Results Past 24 Hours 08/18/17 04:46 Red Blood Count 2.81, Mean Corpuscular Volume 90.4, Mean Corpuscular Hemoglobin 30.6, Mean Corpuscular Hemoglobin Concent 33.9, Mean Platelet Volume 11.9, Neutrophils (%) (Auto) 90.8, Lymphocytes (%) (Auto) 2.0, Monocytes (%) (Auto) 3.5, Eosinophils (%) (Auto) 0.0, Basophils (%) (Auto) 0.2, Neutrophils # (Auto) 27.99, Lymphocytes # (Auto) 0.61, Monocytes # (Auto) 1.07, Eosinophils # (Auto) 0.00, Basophils # (Auto) 0.06 08/18/17 04:46 Test 08/17/17 11:16 08/17/17 16:20 08/17/17 16:27 08/17/17 19:59 Bedside Glucose 164 mg/dl (70-99) 148 mg/dl (70-99) 129 mg/dl (70-99) Test 08/17/17 23:53 08/18/17 04:46 08/18/17 06:39 Bedside Glucose 138 mg/dl (70-99) 164 mg/dl (70-99) White Blood Count 30.81 K/uL (4.8-10.8) Red Blood Count 2.81 M/uL (4.7-6.1) Hemoglobin 8.6 g/dL (14.0-18.0) Hematocrit 25.4 % (42-52) Mean Corpuscular Volume 90.4 fL (80-100) Mean Corpuscular Hemoglobin 30.6 pg (25-34) Mean Corpuscular Hemoglobin Concent 33.9 g/dl (32-36) Platelet Count 122 K/uL (130-400) Mean Platelet Volume 11.9 fL (7.4-10.4) Neutrophils (%) (Auto) 90.8 % Lymphocytes (%) (Auto) 2.0 % Monocytes (%) (Auto) 3.5 % Eosinophils (%) (Auto) 0.0 % Basophils (%) (Auto) 0.2 % Neutrophils # (Auto) 27.99 K/uL (1.4-6.5) Lymphocytes # (Auto) 0.61 K/uL (1.2-3.4) Monocytes # (Auto) 1.07 K/uL (0.11-0.59) Eosinophils # (Auto) 0.00 K/uL (0-0.5) Basophils # (Auto) 0.06 K/uL (0-0.2) RDW Standard Deviation 55.8 fL (36.4-46.3) RDW Coefficient of Variation 17.0 % (11.5-14.5) Immature Granulocyte % (Auto) 3.5 % Immature Granulocyte # (Auto) 1.08 K/uL (0.00-0.02) Nucleated RBC Absolute Count (auto) 0.51 K/uL (0-0) Nucleated Red Blood Cells % 1.6 % Polychromasia 1+ Basophilic Stippling 1+ Anion Gap 10.0 mmol/L (3-11) Est Creatinine Clear Calc Drug Dose 23.0 ml/min Estimated GFR () 21.0 Estimated GFR (Non- 18.2 BUN/Creatinine Ratio 29.6 (10-20) Calcium Level 8.7 mg/dl (8.5-10.1) Total Bilirubin 0.5 mg/dl (0.2-1) Aspartate Amino Transf (AST/SGOT) 29 U/L (15-37) Alanine Aminotransferase (ALT/SGPT) 40 U/L (12-78) Alkaline Phosphatase 270 U/L (45-117) Total Protein 5.1 gm/dl (6.4-8.2) Albumin 1.7 gm/dl (3.4-5.0) Globulin 3.4 gm/dl (2.5-4.0) Albumin/Globulin Ratio 0.5 (0.9-2) Date/Time Source Procedure Growth Status 08/17/17 16:46 Blood Cryptococcal Antigen - Final Complete Allergies Coded Allergies: Iodinated Diagnostic Agents (Verified Allergy, Unknown, oil based, severe headaches, 06/20/17) EVENT OCCURED IN 1971, PT STATES HE HAS HAD 3 DIFFERENT WATER BASED IVP DYES WITH NO ISSUE Medications Current Inpatient Medications Medications (Trade) Dose Ordered Sig/Edward Route Start Time Stop Time Status Last Admin Dose Admin Hydralazine HCl (HydrALAZINE INJ) 5 mg Q4 PRN IV. 07/21/17 17:15 08/20/17 17:14 Future Hold 07/25/17 23:45 5 MG Hydralazine HCl (HydrALAZINE INJ) 5 mg TID IV. 07/21/17 21:00 08/20/17 20:59 Future Hold 07/30/17 08:33 5 MG Miscellaneous Information (Consult Glycemic Management Pharmacy) 1 ea UD PRN N/A 07/23/17 13:14 08/22/17 13:13 Insulin Aspart (novoLOG ASPART) SLIDING SCALE G... ACHS SC 07/27/17 11:30 08/26/17 11:29 08/17/17 17:28 12 UNITS Ipratropium [place] (Atrovent 0.02% 0.5MG/2.5ML Neb) 0.5 mg Q6R INH 07/29/17 09:00 08/28/17 08:59 08/18/17 07:32 0.5 MG Levalbuterol (Xopenex 0.63 Mg/ 3 Ml Neb) 0.63 mg Q6R INH 07/29/17 09:00 08/28/17 08:59 08/18/17 07:32 0.63 MG Metoprolol Tartrate (Lopressor Tab) 100 mg BID PO 07/29/17 21:00 08/28/17 20:59 08/17/17 21:15 100 MG Amlodipine Besylate (Norvasc Tab) 10 mg QAM PO 07/30/17 09:00 08/29/17 08:59 08/17/17 09:04 10 MG Diphenhydramine HCl (Benadryl Inj) 50 mg 4XDQ4H PRN IV 07/30/17 13:30 08/29/17 13:29 Heparin Sodium (Porcine) (Heparin Sq 5000 Unit/0.5ml) 5,000 unit Q8 SQ 07/30/17 22:00 08/29/17 21:59 08/18/17 05:24 5,000 UNIT Furosemide (Lasix Tab) 40 mg QAM PO 08/01/17 09:00 08/31/17 08:59 08/17/17 07:54 40 MG Calcium Carbonate (Tums Chew Tab) 500 mg TID PO 08/02/17 09:00 09/01/17 08:59 08/17/17 21:15 500 MG Vitamin B Complex/ Vit C/Folic Acid (Nephrocaps) 1 cap QAM PO 08/07/17 09:00 09/06/17 08:59 08/17/17 07:54 1 CAP Fentanyl (Duragesic Patch) 25 mcg Q72H TD 08/07/17 18:00 08/21/17 17:59 08/16/17 17:54 25 MCG Miscellaneous (Fentanyl Patch Remove & Waste) 1 ea Q72H N/A 08/10/17 17:59 09/09/17 17:58 08/16/17 17:53 1 EA Miscellaneous Information (Check Fentanyl Patch Placement) 1 ea QS N/A 08/08/17 00:00 09/07/17 00:00 08/17/17 23:55 1 EA Polyethylene (Miralax Powder Packet) 17 gm DAILY PRN PO 08/09/17 07:00 09/08/17 06:59 Ergocalciferol (Vitamin D Cap) 50,000 interunit We@0900 PO 08/09/17 10:30 09/08/17 10:29 08/16/17 08:00 50,000 INTERUNIT Polyethylene (Miralax Powder Packet) 17 gm DAILY PO 08/09/17 13:00 09/08/17 12:59 08/17/17 07:54 17 GM Heparin Sodium (Porcine) (Heparin 100 Unit/ml 5ml Flush) 5 ml PRN PRN IV 08/09/17 13:00 09/08/17 12:59 08/16/17 06:10 5 ML Simvastatin (Zocor Tab) 20 mg PM PO 08/11/17 21:00 09/10/17 20:59 08/17/17 21:15 20 MG Tamsulosin HCl (Flomax Cap) 0.4 mg HS PO 08/11/17 21:00 09/10/17 20:59 08/17/17 21:15 0.4 MG Ethyl Chloride (Ethyl Chloride Aerosol) 1 ml PRN PRN EXT 08/14/17 17:00 09/13/17 16:59 Caspofungin 50 mg/ Sodium Chloride 260 ml @ 250 mls/hr DAILY IV 08/16/17 09:00 08/23/17 08:59 08/17/17 07:52 250 MLS/HR Enteral Nutritional Formula (Prosource No Carb) 30 ml 3XDQ4 PO 08/15/17 12:00 09/14/17 11:59 08/17/17 15:34 30 ML Morphine Sulfate (MoRPHine SULFATE INJ) 2 mg Q4H PRN IV 08/16/17 13:15 08/30/17 13:14 08/18/17 05:28 2 MG Methylprednisolone Sodium Succinate 60 mg/Syringe 0.96 ml @ 1.5 mls/min Q12H IV 08/17/17 06:00 09/16/17 05:59 08/18/17 05:26 1.5 MLS/MIN Enteral Nutritional Formula (Boost Glucose Control) 1 can BIDM PO 08/17/17 07:30 09/15/17 07:29 08/17/17 17:29 1 CAN Insulin Glargine (Lantus Solostar Pen) 20 units QAM SC 08/17/17 09:00 09/16/17 08:59 08/17/17 09:08 20 UNITS Morphine Sulfate (Oramorph Sr Tab) 30 mg Q12H PO 08/20/17 09:00 09/03/17 08:59 Impression (1) Cellulitis of left hand (2) ESRD (end stage renal disease) on dialysis (3) Renal cell carcinoma (4) Anemia (5) Diabetes type 2, controlled Mr. Christy had metastatic RCCA. He underwent left nephrectomy 2015. He did not tolerate Sutent due to high grade proteinuria. Opdivo caused arthralgia, colitis and possible pneumonitis. He was most recently treated w/ Cabometyx. 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 Colonic reanastamosis was performed at the time of surgery. The patient has a complex medical history including persistent soft tissue infection of the left hand, C. Difficile colitis, metastatic RCCA, interstitial lung disease requiring steroid therapy, dc glabrata infection of pleural and peritoneal fluid Mr. Christy's dialysis has been complicated by prolonged bleeding from the AVF following treatment. 07/23 doppler study revealed a high grade venous outflow stenosis. He required fistulagram and coil embolization 07/25/16. Recommendations --hemodialysis today aim for UF 4 liters . Patient seems to be euvolemic. Significant improvement in respiratory status most likely due to steroid --avoid IV fluids, continue on renal diet, dose medications for GFR less than 10 --continue physical therapy as patient able Will follow
--- NOTE | 2017-08-18 15:22 | Hospitalist Progress Note ---
Hospitalist Progress Note Date of Service Aug 18, 2017. Subjective Pt evaluation today including: conversation w/ patient, physical exam, lab review, review of inpatient medication list Voiding: no voiding problems Patient resting in bed. O2 NC on. SOB non-worsening. Eating and drinking OK. Out of bed in chair for 10+ hours yesterday- encouraged to continue to do so. Dialysis today. Patient denies any fever, chills, sweats, lightheadedness, dizziness, vision changes, CP, palpitations, edema, SOB, wheezing, cough, abdominal pain, nausea, vomiting, diarrhea, urinary symptoms, melena, numbness/tingling, weakness, muscle/joint pain, anxiety/depression, active bleeding, or new skin discoloration/changes. Medications Current Inpatient Medications Medications (Trade) Dose Ordered Sig/Edward Route Start Time Stop Time Status Last Admin Dose Admin Hydralazine HCl (HydrALAZINE INJ) 5 mg Q4 PRN IV. 07/21/17 17:15 08/20/17 17:14 Future Hold 07/25/17 23:45 5 MG Hydralazine HCl (HydrALAZINE INJ) 5 mg TID IV. 07/21/17 21:00 08/20/17 20:59 Future Hold 07/30/17 08:33 5 MG Miscellaneous Information (Consult Glycemic Management Pharmacy) 1 ea UD PRN N/A 07/23/17 13:14 08/22/17 13:13 Insulin Aspart (novoLOG ASPART) SLIDING SCALE G... ACHS SC 07/27/17 11:30 08/26/17 11:29 08/18/17 09:04 8 UNITS Ipratropium Moneta (Atrovent 0.02% 0.5MG/2.5ML Neb) 0.5 mg Q6R INH 07/29/17 09:00 08/28/17 08:59 08/18/17 07:32 0.5 MG Levalbuterol (Xopenex 0.63 Mg/ 3 Ml Neb) 0.63 mg Q6R INH 07/29/17 09:00 08/28/17 08:59 08/18/17 07:32 0.63 MG Metoprolol Tartrate (Lopressor Tab) 100 mg BID PO 07/29/17 21:00 08/28/17 20:59 08/18/17 09:08 100 MG Amlodipine Besylate (Norvasc Tab) 10 mg QAM PO 07/30/17 09:00 08/29/17 08:59 08/18/17 09:09 10 MG Diphenhydramine HCl (Benadryl Inj) 50 mg 4XDQ4H PRN IV 07/30/17 13:30 08/29/17 13:29 Heparin Sodium (Porcine) (Heparin Sq 5000 Unit/0.5ml) 5,000 unit Q8 SQ 07/30/17 22:00 08/29/17 21:59 08/18/17 05:24 5,000 UNIT Furosemide (Lasix Tab) 40 mg QAM PO 08/01/17 09:00 08/31/17 08:59 08/18/17 09:08 40 MG Calcium Carbonate (Tums Chew Tab) 500 mg TID PO 08/02/17 09:00 09/01/17 08:59 08/18/17 09:10 500 MG Vitamin B Complex/ Vit C/Folic Acid (Nephrocaps) 1 cap QAM PO 08/07/17 09:00 09/06/17 08:59 08/18/17 09:09 1 CAP Fentanyl (Duragesic Patch) 25 mcg Q72H TD 08/07/17 18:00 08/21/17 17:59 08/16/17 17:54 25 MCG Miscellaneous (Fentanyl Patch Remove & Waste) 1 ea Q72H N/A 08/10/17 17:59 09/09/17 17:58 08/16/17 17:53 1 EA Miscellaneous Information (Check Fentanyl Patch Placement) 1 ea QS N/A 08/08/17 00:00 09/07/17 00:00 08/18/17 09:07 1 EA Polyethylene (Miralax Powder Packet) 17 gm DAILY PRN PO 08/09/17 07:00 09/08/17 06:59 Ergocalciferol (Vitamin D Cap) 50,000 interunit We@0900 PO 08/09/17 10:30 09/08/17 10:29 08/16/17 08:00 50,000 INTERUNIT Polyethylene (Miralax Powder Packet) 17 gm DAILY PO 08/09/17 13:00 09/08/17 12:59 08/18/17 09:08 17 GM Heparin Sodium (Porcine) (Heparin 100 Unit/ml 5ml Flush) 5 ml PRN PRN IV 08/09/17 13:00 09/08/17 12:59 08/16/17 06:10 5 ML Simvastatin (Zocor Tab) 20 mg PM PO 08/11/17 21:00 09/10/17 20:59 08/17/17 21:15 20 MG Tamsulosin HCl (Flomax Cap) 0.4 mg HS PO 08/11/17 21:00 09/10/17 20:59 08/17/17 21:15 0.4 MG Ethyl Chloride (Ethyl Chloride Aerosol) 1 ml PRN PRN EXT 08/14/17 17:00 09/13/17 16:59 Caspofungin 50 mg/ Sodium Chloride 260 ml @ 250 mls/hr DAILY IV 08/16/17 09:00 08/23/17 08:59 08/18/17 09:08 250 MLS/HR Enteral Nutritional Formula (Prosource No Carb) 30 ml 3XDQ4 PO 08/15/17 12:00 09/14/17 11:59 08/18/17 09:07 30 ML Morphine Sulfate (MoRPHine SULFATE INJ) 2 mg Q4H PRN IV 08/16/17 13:15 08/30/17 13:14 08/18/17 09:18 2 MG Methylprednisolone Sodium Succinate 60 mg/Syringe 0.96 ml @ 1.5 mls/min Q12H IV 08/17/17 06:00 09/16/17 05:59 08/18/17 05:26 1.5 MLS/MIN Enteral Nutritional Formula (Boost Glucose Control) 1 can BIDM PO 08/17/17 07:30 09/15/17 07:29 08/18/17 09:07 1 CAN Insulin Glargine (Lantus Solostar Pen) 20 units QAM SC 08/17/17 09:00 09/16/17 08:59 08/18/17 09:04 20 UNITS Morphine Sulfate (Oramorph Sr Tab) 30 mg Q12H PO 08/20/17 09:00 09/03/17 08:59 Objective Vital Signs Date Time Temp Pulse Resp B/P (MAP) Pulse Ox O2 Delivery O2 Flow Rate FiO2 08/18/17 13:00 107 121/62 08/18/17 12:45 100 127/70 08/18/17 12:30 98 126/71 08/18/17 12:15 94 167/70 08/18/17 12:00 97 132/72 08/18/17 11:45 98 130/71 08/18/17 11:37 36.7 100 19 134/74 (94) 96 Nasal Cannula 6.0 08/18/17 11:30 99 125/70 08/18/17 11:15 98 139/74 08/18/17 11:00 100 144/76 08/18/17 10:30 99 146/76 08/18/17 10:15 99 154/76 08/18/17 10:00 100 144/74 08/18/17 09:55 100 161/84 08/18/17 09:45 37.1 103 172/82 (112) 08/18/17 08:00 Nasal Cannula 7.0 08/18/17 07:36 37.0 102 20 140/64 (89) 96 Nasal Cannula 7.0 08/18/17 07:32 100 16 91 Nasal Cannula 6.0 08/18/17 05:00 90 Nasal Cannula 7.0 08/18/17 03:24 36.6 101 18 167/74 (105) 93 08/18/17 02:07 99 16 94 BiPAP/CPAP 40 08/18/17 01:10 101 92 40 08/18/17 00:21 37.1 101 18 144/62 (89) 90 2.0 08/18/17 00:01 90 Nasal Cannula 7.0 08/17/17 20:39 37.0 93 20 129/64 (85) 88 Nasal Cannula 6.0 08/17/17 20:00 Nasal Cannula 6.0 08/17/17 19:43 98 16 90 Nasal Cannula 6.0 08/17/17 16:00 Nasal Cannula 6.0 08/17/17 15:57 36.9 98 20 118/61 (80) 90 Nasal Cannula 7.0 08/17/17 14:13 95 16 95 Nasal Cannula 7.0 Physical Exam General Appearance: no apparent distress, + pertinent finding (O2 NC; chronically-ill appearing ) Eyes: normal inspection, PERRL ENT: hearing grossly normal Neck: supple Respiratory/Chest: no respiratory distress, no accessory muscle use, + decreased breath sounds (throughout ) Cardiovascular: regular rate, rhythm Abdomen: normal bowel sounds, non tender, soft, + pertinent finding (incision site C/D/I) Extremities: + swelling (+2 pitting edema of bilateral lower extremity ), + pertinent finding (extremity muscle wasting noted ) Neurologic/Psychiatric: alert, normal mood/affect, oriented x 3 Skin: normal color, warm/dry, no rash Laboratory Results Last 24 Hours Test 08/17/17 16:20 08/17/17 16:27 08/17/17 19:59 08/17/17 23:53 Bedside Glucose 148 mg/dl 129 mg/dl 138 mg/dl Test 08/18/17 04:46 08/18/17 06:39 08/18/17 11:07 White Blood Count 30.81 K/uL Red Blood Count 2.81 M/uL Hemoglobin 8.6 g/dL Hematocrit 25.4 % Mean Corpuscular Volume 90.4 fL Mean Corpuscular Hemoglobin 30.6 pg Mean Corpuscular Hemoglobin Concent 33.9 g/dl Platelet Count 122 K/uL Mean Platelet Volume 11.9 fL Neutrophils (%) (Auto) 90.8 % Lymphocytes (%) (Auto) 2.0 % Monocytes (%) (Auto) 3.5 % Eosinophils (%) (Auto) 0.0 % Basophils (%) (Auto) 0.2 % Neutrophils # (Auto) 27.99 K/uL Lymphocytes # (Auto) 0.61 K/uL Monocytes # (Auto) 1.07 K/uL Eosinophils # (Auto) 0.00 K/uL Basophils # (Auto) 0.06 K/uL RDW Standard Deviation 55.8 fL RDW Coefficient of Variation 17.0 % Immature Granulocyte % (Auto) 3.5 % Immature Granulocyte # (Auto) 1.08 K/uL Nucleated RBC Absolute Count (auto) 0.51 K/uL Nucleated Red Blood Cells % 1.6 % Polychromasia 1+ Basophilic Stippling 1+ Sodium Level 133 mmol/L Potassium Level 4.2 mmol/L Chloride Level 96 mmol/L Carbon Dioxide Level 27 mmol/L Anion Gap 10.0 mmol/L Blood Urea Nitrogen 101 mg/dl Creatinine 3.40 mg/dl Est Creatinine Clear Calc Drug Dose 23.0 ml/min Estimated GFR () 21.0 Estimated GFR (Non- 18.2 BUN/Creatinine Ratio 29.6 Random Glucose 148 mg/dl Calcium Level 8.7 mg/dl Total Bilirubin 0.5 mg/dl Aspartate Amino Transf (AST/SGOT) 29 U/L Alanine Aminotransferase (ALT/SGPT) 40 U/L Alkaline Phosphatase 270 U/L Total Protein 5.1 gm/dl Albumin 1.7 gm/dl Globulin 3.4 gm/dl Albumin/Globulin Ratio 0.5 Bedside Glucose 164 mg/dl 154 mg/dl Assessment and Plan Mr. Christy is a 61 y/o M with PMH of ESRD on HD, RCC, DMII. Admitted for L hand cellulitis having failed outpatient management. Abdominal pain, found to have incidental rectus sheath hematoma, C.diff positive colitis and subsequent bowel perforation on 07/21, now s/p colectomy, anemia, and bilateral pneumonia on imaging. Acute hypoxia respiratory failure, ?secondary to pulmonary edema vs cryptogenic organizing pneumonia/drug related pneumonitis: - Continue O2 supplementation to maintain SaO2 85-90%, wean as tolerated, CPAP HS - Started on heparin drip on 07/26 for presumed PE- CTA 07/30/17 negative for PE, thus heparin drip stopped - Large R pleural effusion s/p thoracentesis completed 07/30/17- pleural pathology w/ no malignancy, pleural cultures growing yeast- IV Caspofungin restarted on 08/15 - IV Solu-Medrol- transitioned to Prednisone 20 mg BID on 07/31 for prolonged taper- stopped on 08/14 due to restarting IV Solu Medrol - DuoNebs QID and PRN - Pulmonary- signed off -- Encouraged incentive spirometer, OOB in chair throughout day, working w/ PT -- Thinks worsening acute respiratory distress in near future, does not think CXR findings treatable/reversible - IV Solu Medrol as per pulmonary- signed off, will continue to wean - [employer] Lead consulted on 08/08 for ?ARDS- does not think needs ICU at this time - continue to monitor, transfer to ICU if needed - BCx pending; sputum culture; legionella pending; rapid step pending; [place] pendingCryptococcal antigen positive; - Cryptococcal antigen positive- spoke w/ ID, recommend 5-FC and possible d/c to tertiary center, spoke w/ pharmacy- do not have medication and recommend transfer if patient plans to procedure with aggressive treatment C. diff colitis, perforated jejunal bowel (suspected to result from chemo regimen) s/p colectomy, rectus sheath hematoma- STABLE: - Monitoring on tele- no acute events - Surgical management as per surgery, POD #25- TPN completed on 07/29/17- currently on mechanical soft, renal/T2DM and fluid restrict diet - Underlying severe protein malnutrition, albumin 1.3- boost BID - C.Diff + 07/12/17: Completed 9 days of PO Vancomycin on 07/21 - C. glabratum growth- Completed Caspofungin x10 days on 08/06 - Pain controlled w/ Methadone, Morphine IV PRN, IV Morphine PRN Acute anemia- transfused a total of 9 u PRBCs: - Nephrology following- Epogen with dialysis - H&H- hgb 8.6- STABLE - Continue to follow H&H and transfuse PRN for hgb < 7 or symptomatic - Iron panel reviewed- nephrology holding on IV iron at this time Metastatic RCC s/p L nephrectomy, chronic pain: - Oncology consulted- holding treatment at this time due to acute issues- f/u outpatient - Palliative care following- appreciate recommendations for pain control- Fentanyl, and IV Morphine 2 mg q4 hrs PRN -- Palliative care recommending switch Methadone to PO Morphine due to possibility of lung injury as per pulmonary -- Stop PO Methadone on 08/17 and start Morphine 30 mg PO BID on 08/20 due to Methadone's long half-life ESRD HD, secondary to RCC/ s/p left nephrectomy- HD on MWF, ESRD bone mineral disease: - Nephrology following - 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 on 07/23-- vascular surgery consulted- s/p AVR repair on 07/25/17 - Hypocalcemia w/ vitamin D level of 17.4: Ergocalciferol 50,000 q7d indefinitely + daily D3 2000 when patient resumes oral intake- recheck levels in 12 weeks - Calcitriol and CaCO3 Left hand cellulitis, ?reflex sympathetic dystrophy: - Initial MRI did not determine any osteomyelitis - ID consulted: -- Treated initially with Ertapenem/Daptomycin, then transitioned to Cefepime - treated 07/22- 07/30 -- Daptomycin started on 08/07 per ID recommendations- ID following- discontinued on 08/15 DMII: Pharmacy consulted for glycemic management HTN, HLD: - Furosemide 40 mg PO daily, Amlodipine 10 mg daily, Metoprolol 100 mg PO BID, Lisinopril 40 mg daily, Simvastatin 20 mg HS - Hydralazine 100 mg TID held- BPs well controlled at this time - Monitor I&Os and daily weights BPH: Tamsulosin 0.4 mg PO daily DVT Prophylaxis: Heparin SQ TID Code Status: LEVEL V, DNR Dispo: Discharge uncertain- PT/OT and CM following
[2017-08-18] MEDS ORDERED: MRPSR15 PO (15:28)
[2017-08-18] MEDS ORDERED: [UNRECOGNIZED DRUG - OTHER] IV (15:28)
[2017-08-18] MEDS ORDERED: LPR100 PO (15:28)
[2017-08-18] MEDS ORDERED: NUTR-1049 PO (15:28)
[2017-08-18] MEDS ORDERED: NUTR-7 PO (15:28)
[2017-08-18] MEDS ORDERED: [UNRECOGNIZED DRUG - CODE] IV (15:28)
[2017-08-18] MEDS ORDERED: CNCI50 IV (15:28)
[2017-08-18] MEDS ORDERED: MRPIS2 IV (15:28)
[2017-08-18] MEDS ORDERED: NVLGIPEN SC (15:28)
--- NOTE | 2017-08-18 15:51 | Discharge Summary ---
Discharge Summary Date of Service Aug 18, 2017. Discharge Summary Admission Date: Jul 05, 2017 at 19:47 Discharge Date: Aug 18, 2017 Discharge Disposition: Acute care facility Principal Diagnosis: Acute hypoxia respiratory failure Problems/Secondary Diagnoses: Acute hypoxia respiratory failure, ?secondary to pulmonary edema vs cryptogenic organizing pneumonia/drug related pneumonitis +cryptococcal antigen C. diff colitis perforated jejunal bowel (suspected to result from chemo regimen) s/p colectomy rectus sheath hematoma C. glabratum growth w/ pleural fluid and peritoneal fluid Acute anemia Metastatic RCC s/p L nephrectomy chronic pain ESRD HD, secondary to RCC/ s/p left nephrectomy- HD on MWF ESRD bone mineral disease Left hand cellulitis, ?reflex sympathetic dystrophy DMII HTN HLD BPH Immunizations: Have You Had Influenza Vaccine: Yes Influenza Vaccine Date: May 14, 2015 History of Tetanus Vaccine?: Yes Tetanus Immunization Date: Sep 14, 2011 History of Pneumococcal: Yes Pneumococcal Date: Sep 14, 2013 History of Hepatitis B Vaccine: No Procedures: DICTATED BY: Angela Zelaya MD DATE OF OPERATION: 07/21/2017 PREOPERATIVE DIAGNOSIS: Perforated viscus. POSTOPERATIVE DIAGNOSIS: Perforated jejunal diverticulum. OPERATIVE PROCEDURE: Exploratory laparotomy, partial small bowel resection with primary anastomosis. ANESTHESIA: General endotracheal anesthesia. SURGEON: Dr. Angela Zelaya. [employer] FEEDER: CHRISTEN Bedoya. ESTIMATED BLOOD LOSS: 20 mL. IV FLUIDS: 500 mL crystalloid, 310 mL PRBCs (1 unit). DRAINS: None. SPECIMENS: Jejunum and peritoneal fluid culture. COMPLICATIONS: None. Immediate Operative Summary Operative Date Jul 25, 2017. Pre-Operative Diagnosis Malfunctioning Fistula Post-Operative Diagnosis Same Procedure(s) Performed Fistulogram, Coil Embolization of side branches, Surgeon Dr. Darden Roll Coverer Surgeon(s) None Estimated Blood Loss 5 Findings good thrill Fluids (cc crystalloids) 500 cc crystalloid, 310 cc prbc (1 unit) Specimens None Anesthesia MAC Complication(s) None Disposition Recovery Room / PACU <Electronically signed by Rashaun Darden M.D.> Signed: 07/25/17 1409 Signed: The status of this report is Signed * If report status is Draft, the document has not been finalized by the responsible provider Procedure Note Date of Service Jul 30, 2017. Procedure Note Procedures: Right sided Thoracentesis Consent: obtained via the patient and placed into the chart Pre-Procedural Dx: Right pleural effusion Post-Procedural Dx: Right pleural effusion Analgesia: 8cc of 1% Liquid Lidocaine Procedure: The patient was placed in an upright position and thoracic US was used to select a spot for the procedure. A spot along the mid axillary line was marked in the 7th intercostal space. The patient was then draped and prepped in a sterile fashion. A modified Seldinger technique was then used for catheter placement. Flowing this approximately 1350 cc of serosanguineous pleural fluid was removed. The patient was then cleaned and placed at a 60 degree angle in the bed were the US was used to evaluate for possible pneumothorax. The US showed good lung sliding and starry night sign. EBL: <5 cc Complications: None <Electronically signed by Muriel Clark M.D.> Signed: 07/30/17 1753 Signed: The status of this report is Signed * If report status is Draft, the document has not been finalized by the responsible provider. (CHEST) THORAX WITHOUT CT DOSE: 352.46 mGy.cm HISTORY: worsening SOB TECHNIQUE: Multiaxial CT images of the chest were performed without contrast. A dose lowering technique was utilized adhering to the principles of ALARA. COMPARISON: 07/30/2017 FINDINGS: Considerable decrease in volume of right pleural effusion. Minimal residual pleural fluid at both lung bases at the posterior calcified angle. Somewhat progressive bilateral parenchymal infiltrative change bilaterally versus pulmonary edema. Pulmonary edema is perhaps slightly more likely amount of radiographic basis. Central catheter remains in superior vena cava. IMPRESSION: 1. Findings with the pleural fluid and/or pleural effusions on the prior study considerably improved. 2. Progressive diffuse bilateral parenchymal infiltrates versus the more likely possibility of pulmonary edematous change. The above report was generated using voice recognition software. It may contain grammatical, syntax or spelling errors. Electronically signed by: Kirill Rainey M.D. 08/14/2017 8:54 PM Dictated Date/Time: 08/14/2017 8:53 PM The status of this report is Signed. Draft = Not yet reviewed or approved by Radiologist. Signed = Reviewed and approved by Radiologist. CT ANGIOGRAPHY OF THE CHEST, PULMONARY EMBOLUS PROTOCOL CLINICAL HISTORY: Acute hypoxic respiratory failure. Renal cell carcinoma. COMPARISON STUDY: Chest CT July 14, 2017 and VQ scan July 29, 2017 and chest radiograph July 28, 2017. TECHNIQUE: Patient was premedicated for IV dye allergy. Following IV administration of 99 mL of [id number]-320, helical axial images of the chest were obtained utilizing the pulmonary embolus protocol. Maximal intensity projections and sagittal and coronal reformats were viewed on an independent 3D workstation. IV contrast was administered without complication. A dose lowering technique was utilized adhering to the principles of ALARA. CT DOSE: 602.79 mGy.cm FINDINGS: No pulmonary emboli are identified although the the segmental and subsegmental pulmonary arteries are suboptimally assessed due to respiratory motion. The size of the heart is normal. There is a trace pericardial effusion. There is no evidence of thoracic aortic dissection. A mildly enlarged retrocrural lymph node is unchanged since CT of July 14, 2017. A small left pleural effusion has slightly increased in size since that exam. A large right pleural effusion has significantly increased in size since prior CT of July 14, 2017. There is associated right lower lobe compressive atelectasis. Extensive groundglass opacity throughout the lungs has significantly progressed since exam July 14, 2017. Additional multifocal airspace consolidation is noted, most evident within the right lung. There is no pneumothorax. There is no pneumomediastinum. No cavitation is a identified. No suspicious osseous lesions are shown within the bony thorax. Hyperdense material within the gallbladder is noted. There may be mild pericholecystic infiltration. A few indeterminate right renal lesions are better depicted on prior abdominal CT. IMPRESSION: 1. No central pulmonary emboli identified. Exam significantly compromised by respiratory motion artifact which decreases sensitivity for detection of segmental and subsegmental pulmonary emboli. 2. Significant increase in size of a large right effusion since prior chest CT of July 14, 2017. Associated compressive right lower lobe atelectasis. Slight increase in size of a small left pleural effusion. 3. Extensive groundglass opacities with consolidation throughout the lungs which has progressed since exam July 14, 2017. Differential considerations include pneumonia, pulmonary edema, cryptogenic organizing pneumonia and ARDS. 4. Layering hyperdense material within the gallbladder with mild pericholecystic infiltration. No gallbladder distention. Electronically signed by: Lei Gan M.D. 07/30/2017 3:18 PM Dictated Date/Time: 07/30/2017 3:06 PM The status of this report is Signed. Draft = Not yet reviewed or approved by Radiologist. Signed = Reviewed and approved by Radiologist. Interpretation Summary * Name: CHANO CHRISTY Study Date: 08/15/2017 10:24 AM BP: 171/78 mmHg * [id number] HR: 101 * : 1955 (M/d/yyyy) Gender: Male Height: 70 in * Age: 61 yrs Ethnicity: CA Weight: 154 lb * Ordering Physician: Ananya Ruiz * Referring Physician: Falguni Lin * Performed By: Madi Gonzalez RCS * * Reason For Study: CHF * BSA: 1.9 m2 * -- Conclusions -- * 1. Normal LV size. Normal LV wall thickness. * 2. Normal LV systolic function. LVEF 60-65%. No regional wall motion abnormalities. * 3. Normal RV size and function. * 4. No significant valvular pathology. * 6. Compared with prior study on 10/28/2016: No significant change Procedure Details * A complete two-dimensional transthoracic echocardiogram was performed (2D, M-mode, Doppler and color flow Doppler). Left Ventricle * The left ventricle is grossly normal size. * There is normal left ventricular wall thickness. * Ejection Fraction = 60-65%. * No regional wall motion abnormalities noted. Right Ventricle * The right ventricle is grossly normal size. * The right ventricular systolic function is normal as assessed by tricuspid annular plane systolic excursion (TAPSE) (normal >1.5 cm). Atria * The left atrium is mildly dilated. * Right atrial size is normal. * No ASD detected; PFO is not assessed. Mitral Valve * The mitral valve is grossly normal. * There is no mitral valve stenosis. * There is trace mitral regurgitation. Tricuspid Valve * There is trace tricuspid regurgitation. * Right ventricular systolic pressure is elevated at 30-40mmHg. Aortic Valve * The aortic valve opens well. * The aortic valve is trileaflet. * No hemodynamically significant valvular aortic stenosis. * There is no significant aortic regurgitation. Pulmonic Valve * The pulmonary valve is inadequately visualized, but the Doppler data is adequate for interpretation. * Pulmonic stenosis is absent. * Trace pulmonic valvular regurgitation. Great Vessels * The aortic root and proximal ascending aorta are normal sized. Pericardium/Pleural * There is no pericardial effusion. Great Vessels * Normal inferior vena cava size and collapsability with sniff indicates a normal right atrial pressure of 3 mmHg Consultations: Infectious disease, Nephrology, Critical Care, General surgery, Pulmonary, Palliative care, Hematology/oncology, Rheumatology Medication Reconciliation New Medications: Caspofungin (Cancidas) 50 Mg/10 Ml Inj 50 MG IV DAILY for 3 Days Methylprednisolone Sod Succ (Solu-Medrol) 40 Mg Inj 60 MG IV BID for 1 Day Diphenhydramine HCl (Diphenhydramine HCl) 50 Mg/Ml Inj 50 MG IV 4XDQ4H PRN for Allergic Reaction for 3 Days Insulin Aspart (Novolog Flexpen) 100 Units/Ml Inj 0 UNITS SC ACHS for 1 Day Metoprolol Tartrate (Metoprolol Tartrate) 100 Mg Tab 100 MG PO BID for 3 Days, #6 TAB Morphine Sulfate (Morphine Sulfate) 2 Mg/Ml Inj 2 MG IV Q4H PRN for Pain for 3 Days Morphine Sulfate (Morphine Sulfate ER) 15 Mg Tabcr 30 MG PO Q12H for 3 Days To start on 08/20 Nutritional Supplements (Boost) 1 Liq Liq 1 CAN PO BIDM for 3 Days Nutritional Supplements (Prosource No Carb) 1 Liq Liq 30 ML PO 3XDQ4 for 3 Days Continued Medications: Amlodipine (Norvasc) 10 Mg Tab 10 MG PO QAM, TAB Calcitriol (Calcitriol) 0.25 Mcg Cap 0.25 MCG PO Q2D Calcium Carbonate (Tums) 500 Mg Chew 500 MG PO WM Fentanyl (Fentanyl) 75 Mcg/Hr Dis 25 PATCH TOP CQ72HR Furosemide (Furosemide) 40 Mg Tab 40 MG PO QAM Insulin Glargine (Lantus Solostar) 100 Unit/Ml Inj 14 UNITS SC HS Lisinopril (Lisinopril) 40 Mg Tab 1 TAB OR DAILY for 30 Days Polyethylene (Miralax) 17 Gm Pow 17 GM PO DAILY PRN for Constipation for 10 Days, #10 PKT Simvastatin (Zocor) 20 Mg Tab 20 MG PO QPM, TAB Tamsulosin Hcl (Flomax) 0.4 Mg Cap 0.4 MG PO HS, CAP Discontinued Medications: Aspirin (Aspirin Ec) 81 Mg Tab 81 MG PO QAM Cabozantinib S-Malate (Cabometyx) 60 Mg Tab 60 MG PO QAM Daptomycin (Daptomycin) 500 Mg Inj 350 MG IV Q48H for 10 Days Hydralazine Hcl (Apresoline) 100 Mg Tab 100 MG PO TID, TAB Insulin Lispro (Human) (Humalog Kwikpen) 100 Unit/Ml Inj 0 SQ TID Using a carb ratio of 1 unit per 10 gm carbs + sliding scale Lactobacillus Acidophilus (Floranex) 1 Tab Tab 2 TABS OR TID for 15 Days Methadone HCl (Methadone HCl) 10 Mg Tab 10 MG PO TID Metoprolol Tartrate (Lopressor) (Lopressor) 100 Mg Tab 100 MG PO BID Oxycodone Hcl (Oxycodone Hcl) 10 Mg Tab 10 MG PO TID Prednisone Tab (Prednisone) 10 Mg Tab 10 MG PO TID, TAB Discharge Exam Review of Systems: Constitutional: No fever, No chills, No sweats, No weakness, No fatigue Eyes: No worsening of vision ENT: No hearing loss Respiratory: No cough, No shortness of breath, No hemoptysis Cardiovascular: No chest pain, No edema, No palpitations Abdomen: No pain, No nausea, No vomiting, No diarrhea, No constipation, No GI bleeding Musculoskeletal: + joint pain, + muscle pain, No swelling, No calf pain Genitourinary - Male: No hematuria, No dysuria Neurologic: No weakness, No numbness/tingling Psychiatric: No depression symptoms, No anxiety Endocrine: No fatigue Hematologic / Lymphatic: No abnormal bleeding/bruising Integumentary: No rash, No itch, No new/changing skin lesions Physical Exam: General Appearance: no apparent distress, + pertinent finding (O2 NC; chronically-ill appearing ) Eyes: normal inspection, PERRL ENT: hearing grossly normal Neck: supple Respiratory/Chest: no respiratory distress, no accessory muscle use, + decreased breath sounds (throughout ) Cardiovascular: regular rate, rhythm Abdomen / GI: normal bowel sounds, non tender, soft, + pertinent finding ( incision site C/D/I ) Extremities: no calf tenderness, + swelling (+2 pitting edema of bilateral lower extremities ), + pertinent finding (extremity muscle wasting ) Neurologic/Psychiatric: alert, normal mood/affect, oriented x 3 Skin: normal color, warm/dry, no rash Hospital Course Mr. Christy is a 61 y/o M with PMH of ESRD on HD, RCC, DMII. Admitted for L hand cellulitis having failed outpatient management. Abdominal pain, found to have incidental rectus sheath hematoma, C.diff positive colitis and subsequent bowel perforation on 07/21, now s/p colectomy, anemia, and bilateral pneumonia on imaging. Acute hypoxia respiratory failure, slightly improved after aggressive diuresis, 3 L of fluid were taking every the with dialysis for multiple days in a raw? secondary to pulmonary edema vs cryptogenic organizing pneumonia/drug related pneumonitis, also daptomycin-induced lung toxicity was considered, finally since he has been on caspofungin cryptococcal antigen was ordered and was positive also repeat blood culture was positive for fungemia: Making the diagnosis of cryptococcal pneumonia top on the list. - Continue O2 supplementation to maintain SaO2 85-90%, wean as tolerated, CPAP HS - Started on heparin drip on 07/26 for presumed PE- CTA 07/30/17 negative for PE, thus heparin drip stopped, switched to subcutaneous heparin - Large R pleural effusion s/p thoracentesis completed 07/30/17- pleural pathology w/ no malignancy, pleural cultures growing Cecilia glabrata, IV Caspofungin restarted on 08/15 - IV Solu-Medrol- transitioned to Prednisone 20 mg BID on 07/31 for prolonged taper- stopped on 08/14 due to restarting IV Solu Medrol - DuoNebs QID and PRN - Pulmonary- -- Encouraged incentive spirometer, OOB in chair throughout day, working w/ PT -- Thinks worsening acute respiratory distress in near future, does not think CXR findings treatable/reversible - IV Solu Medrol 60 mg BID and continue to wean - Hot Plate [employer] Operator consulted on 08/08 for ?ARDS- does not think needs ICU at this time - continue to monitor, transfer to ICU if needed - Most recent labs : BCx growing fungemia , sputum culture; legionella pending; rapid step pending; Quantiforn pendingCryptococcal antigen positive; - Cryptococcal antigen positive and blood cultures growing fungemia- spoke w/ ID , recommend 5-FC and possible d/c to tertiary center, spoke w/ pharmacy- do not have medication and recommend transfer if patient plans to procedure with aggressive treatment , pharmacy do not have a monitoring protocol. Spoke with [facility] hospitalist Dr. Narayan, infectious diseases Dr. Andrade who kindly accepted the patient under their care C. diff colitis, perforated jejunal bowel (suspected to result from chemo regimen) s/p colectomy, rectus sheath hematoma- STABLE: - Monitoring on tele- no acute events - Surgical management as per surgery, POD #25- TPN completed on 07/29/17- currently on mechanical soft, renal/T2DM and 1200 ml fluid restrict diet - Underlying severe protein malnutrition, albumin 1.3- boost BID - C.Diff + 07/12/17: Completed 9 days of PO Vancomycin on 07/21 , currently off isolation - C. glabratum growth- Completed Caspofungin x10 days on 08/06 then restarted on 08/14 - Pain controlled w/ Methadone, Morphine IV PRN, IV Morphine PRN , methadone was stopped for possible methadone lung injury Acute anemia- transfused a total of 9 u PRBCs: - Nephrology following- Epogen with dialysis - H&H- hgb 8.6- STABLE - Continue to follow H&H and transfuse PRN for hgb < 7 or symptomatic - Iron panel reviewed- nephrology holding on IV iron at this time Metastatic RCC s/p L nephrectomy, chronic pain: Prior to this thickness was treated with Cabometyx which is currently on hold, no cancer cells in pleural fluid - Oncology consulted- holding treatment at this time due to acute issues- f/u outpatient - Patient refused hospice, currently Palliative care following- appreciate recommendations for pain control- Fentanyl, IV Morphine 2 mg q4 hrs PRN, and transition to PO Morphine -- Palliative care recommending switch Methadone to PO Morphine due to possibility of lung injury as per pulmonary , methadone was stopped 08/17 Please remember to start morphine long-acting oral from tomorrow -- Stop PO Methadone on 08/17 and start Morphine 30 mg PO BID on 08/20 due to Methadone's long half-life ESRD HD, secondary to RCC/ s/p left nephrectomy- HD on MWF, ESRD bone mineral disease: - Nephrology following - 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 on 07/23-- vascular surgery consulted- s/p AVR repair on 07/25/17 - Hypocalcemia w/ vitamin D level of 9.4 on 07/20 --> 17.4 on 08/08: Ergocalciferol 50,000 q7d indefinitely + daily D3 2000 when patient resumes oral intake- recheck levels in 9 weeks - Calcitriol and CaCO3 Left hand cellulitis, ?reflex sympathetic dystrophy: - Initial MRI did not determine any osteomyelitis - ID consulted: -- Treated initially with Ertapenem/Daptomycin, then transitioned to Cefepime - treated 07/22- 07/30 -- Daptomycin restarted on 08/07 per ID recommendations- ID following- discontinued on 08/15 DMII: - Pharmacy consulted for glycemic management -- Current regimen of Lantus 20 u daily and ISS of goal range 120-160, CF 20 , CHO ratio 1:9 HTN, HLD: - Furosemide 40 mg PO daily, Amlodipine 10 mg daily, Metoprolol 100 mg PO BID, Lisinopril 40 mg daily, Simvastatin 20 mg HS - Hydralazine 100 mg TID held- BPs well controlled at this time - Monitor I&Os and daily weights BPH: Tamsulosin 0.4 mg PO daily DVT Prophylaxis: Heparin SQ TID Code Status: LEVEL V, DNR / DNI but active medical management Dispo: Tertiary Center Total Time Spent: Greater than 30 minutes This includes examination of the patient, discharge planning, medication reconciliation, and communication with other providers. Discharge Instructions Please refer to the electronic Patient Visit Report (Discharge Instructions) for additional information. Follow-Up Follow-up with Tertiary care provider within 24 hours Follow-up with PCP 5-7 days after discharge Please follow-up/keep all of your subspecialty appointments
--- NOTE | 2017-08-18 18:39 | Discharge Instructions ---
Discharge Instructions Date of Service Aug 18, 2017. Admission Reason for Admission: Worsening Hand Cellulitis, New Gi Bleed Discharge Discharge Diagnosis / Problem: fungemia Discharge Goals Goal(s): Decrease discomfort Activity Recommendations Activity Limitations: per Instructions/Follow-up section . Current Hospital Diet Patient's current hospital diet: Renal Diet, Diabetes Type 2 Diet Discharge Diet Recommended Diet: Regular Diet Procedures Procedures Performed: Fistulogram, Coil Embolization of side branches, Pending Studies Studies pending at discharge: no Laboratory Results Hemoglobin A1c Test 05/22/17 13:45 Range/Units Estimated Average Glucose 137 mg/dl Hemoglobin A1c 6.4 H 4.5-5.6 % Lipid Panel Test 07/23/17 05:54 Range/Units Triglycerides Level 236 H 0-150 mg/dl Medical Emergencies . Who to Call and When: Medical Emergencies: If at any time you feel your situation is an emergency, please call 911 immediately. . Non-Emergent Contact Non-Emergency issues call your: Primary Care Provider, Specialist . . "Provider Documentation" section prepared by Ananya Guerrero. . VTE Core Measure Inpt VTE Proph given/why not?: Unfractionated heparin SQ, SCD's
--- NOTE | 2017-08-18 19:03 | Infectious Disease Progress Nt ---
Progress Note Date of Service Aug 18, 2017. Subjective Pt evaluation today including: conversation w/ patient, physical exam, chart review, lab review, review of studies, conversation w/ clinical consultant, review of inpatient medication list Patient states shortness of breath about the same. No fever. Cryptococcal antigen now reported positive at 1 to 8 titer. All Other Systems: Reviewed and Negative Medications Current Inpatient Medications Medications (Trade) Dose Ordered Sig/Edward Route Start Time Stop Time Status Last Admin Dose Admin Hydralazine HCl (HydrALAZINE INJ) 5 mg Q4 PRN IV. 07/21/17 17:15 08/20/17 17:14 Future Hold 07/25/17 23:45 5 MG Hydralazine HCl (HydrALAZINE INJ) 5 mg TID IV. 07/21/17 21:00 08/20/17 20:59 Future Hold 07/30/17 08:33 5 MG Miscellaneous Information (Consult Glycemic Management Pharmacy) 1 ea UD PRN N/A 07/23/17 13:14 08/22/17 13:13 Insulin Aspart (novoLOG ASPART) SLIDING SCALE G... ACHS SC 07/27/17 11:30 08/26/17 11:29 08/18/17 17:54 3 UNITS Ipratropium [place] (Atrovent 0.02% 0.5MG/2.5ML Neb) 0.5 mg Q6R INH 07/29/17 09:00 08/28/17 08:59 08/18/17 14:43 0.5 MG Levalbuterol (Xopenex 0.63 Mg/ 3 Ml Neb) 0.63 mg Q6R INH 07/29/17 09:00 08/28/17 08:59 08/18/17 14:43 0.63 MG Metoprolol Tartrate (Lopressor Tab) 100 mg BID PO 07/29/17 21:00 08/28/17 20:59 08/18/17 09:08 100 MG Amlodipine Besylate (Norvasc Tab) 10 mg QAM PO 07/30/17 09:00 08/29/17 08:59 08/18/17 09:09 10 MG Diphenhydramine HCl (Benadryl Inj) 50 mg 4XDQ4H PRN IV 07/30/17 13:30 08/29/17 13:29 Heparin Sodium (Porcine) (Heparin Sq 5000 Unit/0.5ml) 5,000 unit Q8 SQ 07/30/17 22:00 08/29/17 21:59 08/18/17 14:38 5,000 UNIT Furosemide (Lasix Tab) 40 mg QAM PO 08/01/17 09:00 08/31/17 08:59 08/18/17 09:08 40 MG Calcium Carbonate (Tums Chew Tab) 500 mg TID PO 08/02/17 09:00 09/01/17 08:59 08/18/17 14:00 500 MG Vitamin B Complex/ Vit C/Folic Acid (Nephrocaps) 1 cap QAM PO 08/07/17 09:00 09/06/17 08:59 08/18/17 09:09 1 CAP Fentanyl (Duragesic Patch) 25 mcg Q72H TD 08/07/17 18:00 08/21/17 17:59 08/16/17 17:54 25 MCG Miscellaneous (Fentanyl Patch Remove & Waste) 1 ea Q72H N/A 08/10/17 17:59 09/09/17 17:58 08/16/17 17:53 1 EA Miscellaneous Information (Check Fentanyl Patch Placement) 1 ea QS N/A 08/08/17 00:00 09/07/17 00:00 08/18/17 17:50 1 EA Polyethylene (Miralax Powder Packet) 17 gm DAILY PRN PO 08/09/17 07:00 09/08/17 06:59 Ergocalciferol (Vitamin D Cap) 50,000 interunit We@0900 PO 08/09/17 10:30 09/08/17 10:29 08/16/17 08:00 50,000 INTERUNIT Polyethylene (Miralax Powder Packet) 17 gm DAILY PO 08/09/17 13:00 09/08/17 12:59 08/18/17 09:08 17 GM Heparin Sodium (Porcine) (Heparin 100 Unit/ml 5ml Flush) 5 ml PRN PRN IV 08/09/17 13:00 09/08/17 12:59 08/16/17 06:10 5 ML Simvastatin (Zocor Tab) 20 mg PM PO 08/11/17 21:00 09/10/17 20:59 08/17/17 21:15 20 MG Tamsulosin HCl (Flomax Cap) 0.4 mg HS PO 08/11/17 21:00 09/10/17 20:59 08/17/17 21:15 0.4 MG Ethyl Chloride (Ethyl Chloride Aerosol) 1 ml PRN PRN EXT 08/14/17 17:00 09/13/17 16:59 Caspofungin 50 mg/ Sodium Chloride 260 ml @ 250 mls/hr DAILY IV 08/16/17 09:00 08/23/17 08:59 08/18/17 09:08 250 MLS/HR Enteral Nutritional Formula (Prosource No Carb) 30 ml 3XDQ4 PO 08/15/17 12:00 09/14/17 11:59 08/18/17 17:54 30 ML Morphine Sulfate (MoRPHine SULFATE INJ) 2 mg Q4H PRN IV 08/16/17 13:15 08/30/17 13:14 08/18/17 14:35 2 MG Methylprednisolone Sodium Succinate 60 mg/Syringe 0.96 ml @ 1.5 mls/min Q12H IV 08/17/17 06:00 09/16/17 05:59 08/18/17 17:56 1.5 MLS/MIN Enteral Nutritional Formula (Boost Glucose Control) 1 can BIDM PO 08/17/17 07:30 09/15/17 07:29 08/18/17 17:54 1 CAN Insulin Glargine (Lantus Solostar Pen) 20 units QAM SC 08/17/17 09:00 09/16/17 08:59 08/18/17 09:04 20 UNITS Morphine Sulfate (Oramorph Sr Tab) 30 mg Q12H PO 08/20/17 09:00 09/03/17 08:59 Objective Vital Signs Date Time Temp Pulse Resp B/P (MAP) Pulse Ox O2 Delivery O2 Flow Rate FiO2 08/18/17 16:00 Nasal Cannula 7.0 08/18/17 15:21 37.3 109 22 144/76 (98) 88 Nasal Cannula 8.0 08/18/17 14:43 100 16 93 Nasal Cannula 6.0 08/18/17 14:20 37.1 100 139/73 (95) 08/18/17 13:45 104 104/57 08/18/17 13:30 100 105/51 08/18/17 13:15 105 126/40 08/18/17 13:00 107 121/62 08/18/17 12:45 100 127/70 08/18/17 12:30 98 126/71 08/18/17 12:15 94 167/70 08/18/17 12:00 97 132/72 08/18/17 12:00 Nasal Cannula 7.0 08/18/17 11:45 98 130/71 08/18/17 11:37 36.7 100 19 134/74 (94) 96 Nasal Cannula 6.0 08/18/17 11:30 99 125/70 08/18/17 11:15 98 139/74 08/18/17 11:00 100 144/76 08/18/17 10:30 99 146/76 08/18/17 10:15 99 154/76 08/18/17 10:00 100 144/74 08/18/17 09:55 100 161/84 08/18/17 09:45 37.1 103 172/82 (112) 08/18/17 08:00 Nasal Cannula 7.0 08/18/17 07:36 37.0 102 20 140/64 (89) 96 Nasal Cannula 7.0 08/18/17 07:32 100 16 91 Nasal Cannula 6.0 08/18/17 05:00 90 Nasal Cannula 7.0 08/18/17 03:24 36.6 101 18 167/74 (105) 93 08/18/17 02:07 99 16 94 BiPAP/CPAP 40 08/18/17 01:10 101 92 40 08/18/17 00:21 37.1 101 18 144/62 (89) 90 2.0 08/18/17 00:01 90 Nasal Cannula 7.0 08/17/17 20:39 37.0 93 20 129/64 (85) 88 Nasal Cannula 6.0 08/17/17 20:00 Nasal Cannula 6.0 08/17/17 19:43 98 16 90 Nasal Cannula 6.0 Physical Exam General Appearance: WD/WN, + pertinent finding (Chronically ill-appearing) Eyes: normal inspection, EOMI, sclerae normal ENT: normal ENT inspection, pharynx normal Neck: supple, no adenopathy, thyroid normal, trachea midline Respiratory/Chest: chest non-tender, no respiratory distress, no accessory muscle use, + rales Cardiovascular: regular rate, rhythm, no gallop, no murmur Abdomen: normal bowel sounds, non tender, soft, no organomegaly Extremities: non-tender, no calf tenderness, normal capillary refill Neurologic/Psychiatric: alert, oriented x 3 Skin: normal color, warm/dry, no rash Lymphatic: no adenopathy Laboratory Results Last 24 Hours Test 08/17/17 19:59 08/17/17 23:53 08/18/17 04:46 08/18/17 06:39 Bedside Glucose 129 mg/dl 138 mg/dl 164 mg/dl White Blood Count 30.81 K/uL Red Blood Count 2.81 M/uL Hemoglobin 8.6 g/dL Hematocrit 25.4 % Mean Corpuscular Volume 90.4 fL Mean Corpuscular Hemoglobin 30.6 pg Mean Corpuscular Hemoglobin Concent 33.9 g/dl Platelet Count 122 K/uL Mean Platelet Volume 11.9 fL Neutrophils (%) (Auto) 90.8 % Lymphocytes (%) (Auto) 2.0 % Monocytes (%) (Auto) 3.5 % Eosinophils (%) (Auto) 0.0 % Basophils (%) (Auto) 0.2 % Neutrophils # (Auto) 27.99 K/uL Lymphocytes # (Auto) 0.61 K/uL Monocytes # (Auto) 1.07 K/uL Eosinophils # (Auto) 0.00 K/uL Basophils # (Auto) 0.06 K/uL RDW Standard Deviation 55.8 fL RDW Coefficient of Variation 17.0 % Immature Granulocyte % (Auto) 3.5 % Immature Granulocyte # (Auto) 1.08 K/uL Nucleated RBC Absolute Count (auto) 0.51 K/uL Nucleated Red Blood Cells % 1.6 % Polychromasia 1+ Basophilic Stippling 1+ Sodium Level 133 mmol/L Potassium Level 4.2 mmol/L Chloride Level 96 mmol/L Carbon Dioxide Level 27 mmol/L Anion Gap 10.0 mmol/L Blood Urea Nitrogen 101 mg/dl Creatinine 3.40 mg/dl Est Creatinine Clear Calc Drug Dose 23.0 ml/min Estimated GFR () 21.0 Estimated GFR (Non- 18.2 BUN/Creatinine Ratio 29.6 Random Glucose 148 mg/dl Calcium Level 8.7 mg/dl Total Bilirubin 0.5 mg/dl Aspartate Amino Transf (AST/SGOT) 29 U/L Alanine Aminotransferase (ALT/SGPT) 40 U/L Alkaline Phosphatase 270 U/L Total Protein 5.1 gm/dl Albumin 1.7 gm/dl Globulin 3.4 gm/dl Albumin/Globulin Ratio 0.5 Test 08/18/17 11:07 08/18/17 15:20 08/18/17 16:18 Bedside Glucose 154 mg/dl 152 mg/dl 171 mg/dl Assessment and Plan (1) Pain due to neoplasm Status: Chronic Discussion with Dr Askew regarding review of all possible causes of his current lung findings - there are reported cases of lung injury with methadone - discussed with Dr Walker strategy to stop methadone and transition to oral morphine for pain control. Pt was off methadone post op for 3 days without any issues due to methadone's long half life. Discussed stopping methadone with pt and he is aware of plan. (2) Cellulitis of left hand Status: Acute Appears to have improved - continues to have nodular lesions (3) ESRD (end stage renal disease) on dialysis Status: Acute Pt aggressively diuresed to improve lung function - pt tolerating HD well (4) Hypoxemia requiring supplemental oxygen Status: Acute Due to possible lung toxicity with high levels of O2 - Pulm recommended tolerating lower sats to keep O2 around 6 L. pt tolerating NC this am. (5) High risk medication use Status: Acute 61-year-old male with metastatic renal cell carcinoma with left hand cellulitis , Possible reflex sympathetic dystrophy, subsequent development of pneumonitis, C difficile infection, and then 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 Previous cultures positive for Cecilia, treated with caspofungin. Now with positive cryptococcal antigen at a 1-8 titer, with blood cultures also now growing fungi. Have recommended IV liposomal amphotericin B along with flucytosine, with need a follow 5 FC levels which likely will require transfer to tertiary care center pain have discuss with all involved..
[2017-08-18] MEDS ORDERED: FLUCONAZOLE IV STA (19:56)
[2017-08-18] MEDS ORDERED: NSS IV STA (19:56)
[2017-08-18] MEDS ORDERED: PREMIXED NSS IV STA (19:56)
[2017-08-18] MEDS: FLUCONAZOLE 200MG / NSS IV SCH ×2 (21:02→21:10)
[2017-08-18] MEDS: TAMSULOSIN HCL 0.4 MG CAP PO SCH (21:03)
[2017-08-18] MEDS: SIMVASTATIN 20 MG TAB PO SCH (21:03)
[2017-08-19] MEDS: MoRPHine SULFATE 2 MG/ML CARP IV PRN ×2 (00:20→05:05)
[2017-08-19 01:53] VITALS: PULSE 103; O2SAT 96
[2017-08-19] MEDS: LEVALBUTEROL 0.63MG/3 ML NEB INH SCH ×2 (01:53→07:21)
[2017-08-19] MEDS: IPRATROPIUM BROMIDE NEB SOLN 0.02% 2.5 ML VIAL INH SCH ×2 (01:53→07:21)
[2017-08-19 04:07] VITALS: BP 172/84; PULSE 114; TEMP 37.1; O2SAT 91
[2017-08-19 04:54] LABS: CALCIUM 8.8 mg/dl (8.5-10.1); CREATININE 2.16 mg/dl (0.60-1.40); POTASSIUM 4.1 mmol/L (3.5-5.1)
[2017-08-19 05:24] LABS: HEMATOCRIT 26.1 % (42-52); HEMOGLOBIN 8.5 g/dL (14.0-18.0); MEAN CELL VOLUME 92.2 fL (80-100); MEAN CORPUSCULAR HGB CONC 32.6 g/dl (32-36); MEAN PLATELET VOLUME 11.4 fL (7.4-10.4); NUCLEATED RED BLOOD CELL ABS 0.24 K/uL (0-0); PLATELET COUNT 108 K/uL (130-400); RED CELL DISTRIBUTION WIDTH CV 17.3 % (11.5-14.5); RED CELL DISTRIBUTION WIDTH SD 56.1 fL (36.4-46.3); WHITE BLOOD COUNT 31.71 K/uL (4.8-10.8)
[2017-08-19] MEDS: METHYLPREDNISOLONE IV 60 MG in SYRINGE 0 ML IV SCH (05:53)
[2017-08-19] MEDS: HEPARIN SOD 5000 UNIT/0.5 ML CARP SQ SCH (05:56)
[2017-08-19] MEDS: INSULIN ASPART 100 UNITS/ML 3 ML PEN SC SCH (07:00)
[2017-08-19 07:22] VITALS: PULSE 107; O2SAT 95
[2017-08-19 07:28] VITALS: BP 172/84; PULSE 107; TEMP 37.1; O2SAT 95
[2017-08-19] MEDS: FUROSEMIDE 40 MG TAB PO SCH (07:50)
[2017-08-19] MEDS: BOOST GLUCOSE CONTROL PO SCH (07:50)
[2017-08-19] MEDS: CHECK FENTANYL PATCH PLACEMENT SCH (07:50)
[2017-08-19] MEDS: NEPHROCAPS PO SCH (07:51)
[2017-08-19] MEDS: METOPROLOL TARTRATE 100 MG TAB PO SCH (07:51)
[2017-08-19] MEDS: AMLODIPINE BESYLATE 5 MG TAB PO SCH (07:52)
[2017-08-19 07:55] VITALS: BP 168/73; PULSE 110; TEMP 37.1; O2SAT 91
[2017-08-19] MEDS: CASPOFUNGIN INJ 50 MG in SODIUM CHLORIDE 0.9% 250ML 250 ML IV SCH (08:03)
[2017-08-19] MEDS: PROSOURCE NOCARB 30ML/PKT PO SCH (08:03)
[2017-08-19] MEDS: POLYETHYLENE (MIRALAX) 17 GM PACK PO SCH (08:04)
[2017-08-19] MEDS: CALCIUM CARBONATE 500 MG CHEWABLE PO SCH (08:04)
[2017-08-19] MEDS ORDERED: INSULIN GLARGINE SOLOSTAR 100 UNITS/ML 3 ML PEN SC SCH (09:00)
[2017-08-19] MEDS ORDERED: MoRPHine SULFATE CR 15 MG TAB (MS CONTIN) PO SCH (09:00)
[2017-08-20] MEDS ORDERED: MoRPHine SULFATE CR 15 MG TAB (MS CONTIN) PO SCH (09:00)
[2017-08-21 14:41] LABS: QUANTIF MITOGEN-NIL 0.02 IU/ML; QUANTIFERON INDETERMINATE (NEGATIVE); QUANTIFERON NIL 0.04 IU/ML
== END 2017-08-19 09:34 | disposition short-term general hospital (02) | DRG 981 ==
LOC: C.2E 19:47 → ENRESERV 07-06 15:52 → C.4E 07-06 18:23 → ENRESERV 07-21 15:26 → C.MSICU 07-21 15:31 → ENRESERV 07-23 16:11 → C.2T 07-23 17:12
PROVIDERS: ADMIT Family Medicine; ATTEND Internal Medicine
PROC: 5A1D70Z Performance of Urinary Filtration, Intermittent, Less than 6 Hours Per Day (ICD-10-PCS; 2017-07-06)
PROC: 0WQF0ZZ Repair Abdominal Wall, Open Approach (ICD-10-PCS; principal; 2017-07-21 10:15)
PROC: 0DBA0ZZ Excision of Jejunum, Open Approach (ICD-10-PCS; principal; 2017-07-21 10:15)
PROC: 02H Heart and Great Vessels, Insertion (ICD-10-PCS; 2017-07-23)
PROC: 03LY3DZ Occlusion of Upper Artery with Intraluminal Device, Percutaneous Approach (ICD-10-PCS; 2017-07-25)
PROC: B21FYZZ Fluoroscopy of Other Bypass Graft using Other Contrast (ICD-10-PCS; 2017-07-25)
PROC: 0W993ZZ Drainage of Right Pleural Cavity, Percutaneous Approach (ICD-10-PCS; 2017-07-30)
DX: L03.114 Cellulitis of left upper limb (principal); N18.6 End stage renal disease; K92.2 Gastrointestinal hemorrhage, unspecified; I12.0 Hypertensive chronic kidney disease with stage 5 chronic kidney disease or end stage renal disease; K63.1 Perforation of intestine (nontraumatic); J96.01 Acute respiratory failure with hypoxia; G90.50 Complex regional pain syndrome I, unspecified; A04.72 Enterocolitis due to Clostridium difficile, not specified as recurrent; J84.116 Cryptogenic organizing pneumonia; B49 Unspecified mycosis; G92 Toxic encephalopathy; E43 Unspecified severe protein-calorie malnutrition; T82.858A Stenosis of other vascular prosthetic devices, implants and grafts, initial encounter; B37.1 Pulmonary candidiasis; B37.89 Other sites of candidiasis; J90 Pleural effusion, not elsewhere classified; K65.8 Other peritonitis; Z90.5 Acquired absence of kidney; E11.21 Type 2 diabetes mellitus with diabetic nephropathy; M79.81 Nontraumatic hematoma of soft tissue; K43.2 Incisional hernia without obstruction or gangrene; D64.9 Anemia, unspecified; Z99.2 Dependence on renal dialysis; N40.1 Benign prostatic hyperplasia with lower urinary tract symptoms; F32.9 Major depressive disorder, single episode, unspecified; M54.9 Dorsalgia, unspecified; G89.3 Neoplasm related pain (acute) (chronic); Z85.528 Personal history of other malignant neoplasm of kidney; T40.605A Adverse effect of unspecified narcotics, initial encounter; T45.1X5A Adverse effect of antineoplastic and immunosuppressive drugs, initial encounter; E83.51 Hypocalcemia; Z79.4 Long term (current) use of insulin; Y92.019 Unspecified place in single-family (private) house as the place of occurrence of the external cause; V89.2XXS Person injured in unspecified motor-vehicle accident, traffic, sequela; X58.XXXA Exposure to other specified factors, initial encounter; E88.09 Other disorders of plasma-protein metabolism, not elsewhere classified; Y92.239 Unspecified place in hospital as the place of occurrence of the external cause; K59.03 Drug induced constipation